=== PATIENT | female | born 1940 | race Caucasian/White ===

== ENCOUNTER 2021-06-28 16:22 | Inpatient (IN) | payer MEDICARE ==
[2021-06-28] MEDS ORDERED: SODIUM CHLORIDE 0.9% 500 ML 500 ML IV STA (17:44)
[2021-06-28 17:57] LABS: Basophils % (A) 0 %; Eosinophils # (A) 0.2 k/uL (0-0.7); Eosinophils % (A) 2 %; HCT 33.8 % (34.0-46.0); Lymphocytes # (A) 0.9 k/uL (1.0-4.8); Lymphocytes % (A) 9 %; MCH 30.6 pg (25.0-35.0); MCHC 32.5 g/dL (31.0-37.0); MCV 93.9 fL (80.0-100.0); Monocytes # (A) 0.6 k/uL (0-1.0); Monocytes % (A) 6 %; Neutrophils % (A) 82 %; Platelet Count 232 k/uL (150-450); RDW 13.7 % (11.5-15.5); WBC 9.8 k/uL (3.8-10.6)
[2021-06-28 18:05] LABS: Albumin 3.7 g/dL (3.5-5.0); Calcium 10.7 mg/dL (8.4-10.2); Potassium 4.3 mmol/L (3.5-5.1); Total Bilirubin 0.7 mg/dL (0.2-1.3)
[2021-06-28 18:10] LABS: INR 1.5 (<1.2); Partial Thromboplastin Time 33.2 sec (22.0-30.0)
[2021-06-28] MEDS ORDERED: NALOXONE 0.4 MG/ML 1 ML VIAL IV PRN (19:28)
[2021-06-28] MEDS ORDERED: CLINDAMYCIN 600 MG in DEXTROSE 5% IN WATER 50 ML IVPB STA ×2 (19:30)
--- NOTE | 2021-06-28 19:34 | ED ---
General Adult HPI - General Chief complaint: Abdominal Pain Stated complaint: back pain & infected wound Time Seen by Provider: 06/28/21 17:28 Source: patient, RN notes reviewed, old records reviewed Mode of arrival: ambulatory Limitations: no limitations - History of Present Illness Initial comments: 81-year-old female presenting for reevaluation of abdominal wall abscess. Patient was seen at outside hospital with infected hematoma. She was told that she may require surgical evaluation of this infected hematoma and abscess. She has been on oral antibiotics. According to her daughter she's been more sleepy than usual. She had a fever of 101. She does report some pain at the site. This was a previous site of heparin injection. Patient denies dysuria. She's had some minor cough as well. She was followed by infectious disease at [facility]. - Related Data Home Medications Medication Instructions Recorded Confirmed Clopidogrel [Plavix] 75 mg PO DAILY 11/09/16 11/27/16 Digoxin [Lanoxin] 125 mcg PO DAILY 11/09/16 11/27/16 Insulin Glargine [Lantus] 40 unit SQ QAM 11/09/16 11/27/16 Losartan Potassium 50 mg PO QAM 11/09/16 11/27/16 metFORMIN HCL [Metformin HCl] 1,000 mg PO BID 11/09/16 11/27/16 clindamycin HCL [Cleocin] 300 mg PO Q8H 11/27/16 11/27/16 Allergies Allergy/AdvReac Type Severity Reaction Status Date / Time aspirin Allergy Anaphylaxis Verified 06/28/21 17:19 Review of Systems ROS Statement: Those systems with pertinent positive or pertinent negative responses have been documented in the HPI. ROS Other: All systems not noted in ROS Statement are negative. Past Medical History Past Medical History: Atrial Fibrillation, Diabetes Mellitus, Hypertension Additional Past Medical History / Comment(s): wound rt foot History of Any Multi-Drug Resistant Organisms: None Reported Past Surgical History: Cholecystectomy Past Anesthesia/Blood Transfusion Reactions: No Reported Reaction Past Psychological History: No Psychological Hx Reported Smoking Status: Never smoker Past Alcohol Use History: None Reported Past Drug Use History: None Reported - Past Family History Sister(s) Family Medical History: Cancer Brother(s) Family Medical History: Cancer General Exam Limitations: no limitations General appearance: alert, in no apparent distress Head exam: Present: atraumatic, normocephalic Eye exam: Present: normal appearance, PERRL ENT exam: Present: normal exam Neck exam: Present: normal inspection. Absent: tenderness, meningismus Respiratory exam: Present: normal lung sounds bilaterally. Absent: respiratory distress, wheezes Cardiovascular Exam: Present: regular rate, irregular rhythm GI/Abdominal exam: Present: soft, other (Freely draining abscess with surrounding cellulitis, right lower quadrant subcutaneous tissue.). Absent: distended Extremities exam: Present: normal inspection, normal capillary refill. Absent: pedal edema Neurological exam: Present: alert, oriented X3, CN II-XII intact. Absent: motor sensory deficit Psychiatric exam: Present: normal affect, normal mood Skin exam: Present: warm, dry Course Vital Signs 06/28/21 06/28/21 16:45 17:52 Temperature 100.9 F H 99.0 F Pulse Rate 63 61 Respiratory 18 14 Rate Blood Pressure 151/68 150/62 O2 Sat by Pulse 99 100 Oximetry EKG Findings - EKG Comments: EKG Findings:: EKG: Atrial fibrillation right bundle, no ST segment elevation rate of 70, QRS duration 135, QTC 437 Medical Decision Making - Medical Decision Making 81-year-old female presents for nonhealing wound to the right lower abdomen, abscess with cellulitis. Fever at home. Patient started on IV antibiotics. She has a normal white blood cell count 9.8, hemoglobin of 11.0. She has some mild worsening of her creatinine at 1.94. She had followed with infectious disease who recommended she should present to the emergency department if this i nfection was to worsen it and she may require surgical evaluation. She will be admitted to hospitalist group, case discussed with Miranda david for [facility]. Both infectious disease and general surgery placed on consult. - Lab Data Result diagrams: 06/28/21 17:46 06/28/21 17:46 Lab Results 06/28/21 06/28/21 06/28/21 Range/Units 17:46 17:46 17:46 WBC 9.8 (3.8-10.6) k/uL RBC 3.60 L (3.80-5.40) m/uL Hgb 11.0 L (11.4-16.0) gm/dL Hct 33.8 L (34.0-46.0) % MCV 93.9 (80.0-100.0) fL MCH 30.6 (25.0-35.0) pg MCHC 32.5 (31.0-37.0) g/dL RDW 13.7 (11.5-15.5) % Plt Count 232 (150-450) k/uL MPV 8.0 Neutrophils % 82 % Lymphocytes % 9 % Monocytes % 6 % Eosinophils % 2 % Basophils % 0 % Neutrophils # 8.0 H (1.3-7.7) k/uL Lymphocytes # 0.9 L (1.0-4.8) k/uL Monocytes # 0.6 (0-1.0) k/uL Eosinophils # 0.2 (0-0.7) k/uL Basophils # 0.0 (0-0.2) k/uL PT 15.0 H (9.0-12.0) sec INR 1.5 H (<1.2) APTT 33.2 H (22.0-30.0) sec Sodium 131 L (137-145) mmol/L Potassium 4.3 (3.5-5.1) mmol/L Chloride 96 L (98-107) mmol/L Carbon Dioxide 25 (22-30) mmol/L Anion Gap 10 mmol/L BUN 33 H (7-17) mg/dL Creatinine 1.94 H (0.52-1.04) mg/dL Est GFR (CKD-EPI)AfAm 28 (>60 ml/min/1.73 sqM) Est GFR (CKD-EPI)NonAf 24 (>60 ml/min/1.73 sqM) Glucose 245 H (74-99) mg/dL Plasma Lactic Acid Nolan (0.7-2.0) mmol/L Calcium 10.7 H (8.4-10.2) mg/dL Total Bilirubin 0.7 (0.2-1.3) mg/dL AST 18 (14-36) U/L ALT 14 (4-34) U/L Alkaline Phosphatase 113 (38-126) U/L Total Protein 8.0 (6.3-8.2) g/dL Albumin 3.7 (3.5-5.0) g/dL Amylase 58 (30-110) U/L Lipase 164 (23-300) U/L 06/28/21 Range/Units 17:46 WBC (3.8-10.6) k/uL RBC (3.80-5.40) m/uL Hgb (11.4-16.0) gm/dL Hct (34.0-46.0) % MCV (80.0-100.0) fL MCH (25.0-35.0) pg MCHC (31.0-37.0) g/dL RDW (11.5-15.5) % Plt Count (150-450) k/uL MPV Neutrophils % % Lymphocytes % % Monocytes % % Eosinophils % % Basophils % % Neutrophils # (1.3-7.7) k/uL Lymphocytes # (1.0-4.8) k/uL Monocytes # (0-1.0) k/uL Eosinophils # (0-0.7) k/uL Basophils # (0-0.2) k/uL PT (9.0-12.0) sec INR (<1.2) APTT (22.0-30.0) sec Sodium (137-145) mmol/L Potassium (3.5-5.1) mmol/L Chloride (98-107) mmol/L Carbon Dioxide (22-30) mmol/L Anion Gap mmol/L BUN (7-17) mg/dL Creatinine (0.52-1.04) mg/dL Est GFR (CKD-EPI)AfAm (>60 ml/min/1.73 sqM) Est GFR (CKD-EPI)NonAf (>60 ml/min/1.73 sqM) Glucose (74-99) mg/dL Plasma Lactic Acid Nolan 1.2 (0.7-2.0) mmol/L Calcium (8.4-10.2) mg/dL Total Bilirubin (0.2-1.3) mg/dL AST (14-36) U/L ALT (4-34) U/L Alkaline Phosphatase (38-126) U/L Total Protein (6.3-8.2) g/dL Albumin (3.5-5.0) g/dL Amylase (30-110) U/L Lipase (23-300) U/L Disposition Clinical Impression: Abdominal wall abscess, Failure of outpatient treatment Disposition: ADMITTED IP TO THIS HOSP Condition: Stable Is patient prescribed a controlled substance at d/c from ED?: No Referrals: Megha Oneal DO [Primary Care Provider] - 1-2 days Decision to Admit Reason: Admit from EC Decision Date: 06/28/21 Decision Time: 19:34
[2021-06-28 20:10] LABS: Glucose,Whole Blood 216 mg/dL (75-99)
[2021-06-28] MEDS: SODIUM CHLORIDE 0.9% 1,000 ML IV SCH (20:11)
[2021-06-29 00:30] LABS: Glucose,Whole Blood 237 mg/dL (75-99)
[2021-06-29] MEDS ORDERED: INSULIN DETEMIR (LEVEMIR) 100 UNIT/ML SYR SQ SCH (01:00)
[2021-06-29] MEDS: hydrALAZINE HCL 25 MG TAB PO SCH ×4 (01:10→20:45)
[2021-06-29] MEDS: INSULIN ASPART (NovoLOG) 100 UNIT/ML VIAL SQ SCH ×5 (01:11→20:45)
[2021-06-29] MEDS ORDERED: lisinopriL 5 MG TAB PO SCH ×2 (01:15→09:00)
[2021-06-29 07:26] LABS: Glucose,Whole Blood 110 mg/dL (75-99)
[2021-06-29] MEDS: SODIUM CHLORIDE 0.9% 1,000 ML IV SCH ×2 (09:20→20:45)
--- NOTE | 2021-06-29 11:32 | P.HPIM ---
History of Present Illness Patient [id number] female came in for infected hematoma. Patient was started on ceftezole and patient denied any history of MRSA in the past patient had fever of 101 without any leukocytosis. Patient does have cellulitis with an open wound with fresh granulation tissue. As per the patient this started after heparin injection followed by hematoma which got infected. Patient also has a wound in the left leg which is scabbed. REVIEW OF SYSTEMS: CONSTITUTIONAL: No fever, no malaise, no fatigue. HEENT: No recent visual problems or hearing problems. Denied any sore throat. CARDIOVASCULAR: No chest pain, orthopnea, PND, no palpitations, no syncope. PULMONARY: No shortness of breath, no cough, no hemoptysis. GASTROINTESTINAL: No diarrhea, no nausea, no vomiting, no abdominal pain. NEUROLOGICAL: No headaches, no weakness, no numbness. HEMATOLOGICAL: Denies any bleeding or petechiae. GENITOURINARY: Denies any burning micturition, frequency, or urgency. MUSCULOSKELETAL/RHEUMATOLOGICAL: Denies any joint pain, swelling, or any muscle pain. ENDOCRINE: Denies any polyuria or polydipsia. The rest of the 14-point review of systems is negative. PHYSICAL EXAMINATION: GENERAL: The patient is alert and oriented x3, not in any acute distress. Well developed, well nourished. HEENT: Pupils are round and equally reacting to light. EOMI. No scleral icterus. No conjunctival pallor. Normocephalic, atraumatic. No pharyngeal erythema. No thyromegaly. CARDIOVASCULAR: S1 and S2 present. No murmurs, rubs, or gallops. PULMONARY: Chest is clear to auscultation, no wheezing or crackles. ABDOMEN: Soft, nontender, nondistended, normoactive bowel sounds. No palpable organomegaly. MUSCULOSKELETAL: No joint swelling or deformity. EXTREMITIES: No cyanosis, clubbing, or pedal edema. NEUROLOGICAL: Gross neurological examination did not reveal any focal deficits. SKIN: Found in the right lower abdominal quadrant this wound is open with surrounding cellulitis redness and localized of temperature. Assessment and plan -Abdominal wall cellulitis with a wound/infected hematoma: The patient was started on ceftezole and, Gen. surgery was consulted for possible debridement or incision and drainage. -Chronic atrial fibrillation patient is presently bradycardic not in any acute control medication patient is also which will be resumed after debridement/I &D. -Acute renal failure on chronic kidney disease stage II acute renal failure appears to be prerenal azotemia from diuretic therapy patient denied any history of congestive heart failure will hold off on diuretic therapy dental hydration -Hypovolemic hyponatremia: IV fluids as mentioned above -Type 2 diabetes mellitus blood sugars are well controlled patient resumed on home regimen along with sliding scale insulin titration depending on sliding scale needs. -Hypertension: Hold off on lisinopril temporarily because of acute renal failure. Patient baseline creatinine is around 1. DVT prophylaxis: Will be resumed on anticoagulation after the debridement Past Medical History Past Medical History: Atrial Fibrillation, Diabetes Mellitus, Hypertension Additional Past Medical History / Comment(s): wound rt foot, wound to left pinkey History of Any Multi-Drug Resistant Organisms: None Reported Past Surgical History: Cholecystectomy Past Anesthesia/Blood Transfusion Reactions: No Reported Reaction Past Psychological History: No Psychological Hx Reported Smoking Status: Never smoker Past Alcohol Use History: None Reported Past Drug Use History: None Reported - Past Family History Sister(s) Family Medical History: Cancer Brother(s) Family Medical History: Cancer Medications and Allergies Home Medications Medication Instructions Recorded Confirmed Type Insulin Glargine [Lantus] 12 unit SQ HS 11/09/16 06/28/21 History Amoxicillin/Potassium Clav 1 tab PO BID 06/28/21 06/28/21 History [Augmentin 875-125 Tablet] Cyanocobalamin [Vitamin B-12] 500 mcg PO DAILY 06/28/21 06/28/21 History Docusate Sodium [Dok] 100 mg PO DAILY 06/28/21 06/28/21 History Furosemide [Lasix] 20 mg PO DAILY 06/28/21 06/28/21 History Insulin Lispro [Insulin Lispro 6 units SQ AC-TID 06/28/21 06/28/21 History Kwikpen U-100] Insulin Lispro [Insulin Lispro See Protocol SQ AC-TID 06/28/21 06/28/21 History Kwikpen U-100] Rivaroxaban [Xarelto] 15 mg PO DAILY 06/28/21 06/28/21 History Simvastatin [Zocor] 20 mg PO DAILY 06/28/21 06/28/21 History hydrALAZINE HCL 25 mg PO TID 06/28/21 06/28/21 History lisinopriL [Zestril] 5 mg PO DAILY 06/28/21 06/28/21 History Allergies Allergy/AdvReac Type Severity Reaction Status Date / Time aspirin Allergy Anaphylaxis Verified 06/28/21 20:52 Physical Exam Vitals: Vital Signs Temp Pulse Pulse Resp BP BP Pulse Ox 06/29/21 09:02 99.4 F 47 L 16 150/67 100 06/29/21 08:00 99.1 F 43 L 16 169/67 100 06/29/21 05:22 98.9 F 52 L 18 160/65 100 06/29/21 00:34 98.9 F 45 L 20 171/54 100 06/28/21 22:30 60 18 143/58 94 L 06/28/21 21:03 62 18 150/67 97 06/28/21 17:52 99.0 F 61 14 150/62 100 06/28/21 16:45 100.9 F H 63 18 151/68 99 Intake and Output 06/28/21 06/29/21 06/29/21 22:59 06:59 14:59 Intake Total 720 Balance 720 Intake: Intake, IV Titration 600 Amount Sodium Chloride 0.9% 1, 600 000 ml @ 75 mls/hr IV . [id number] Rx#:[id number] Oral 120 Other: Voiding Method Toilet Bedside Commode # Voids 3 0 Weight 71.214 kg 71.214 kg Results CBC & Chem 7: 06/28/21 17:46 06/28/21 17:46 Labs: Abnormal Lab Results - Last 24 Hours (Table) 06/28/21 06/28/21 06/28/21 Range/Units 17:46 17:46 17:46 RBC 3.60 L (3.80-5.40) m/uL Hgb 11.0 L (11.4-16.0) gm/dL Hct 33.8 L (34.0-46.0) % Neutrophils # 8.0 H (1.3-7.7) k/uL Lymphocytes # 0.9 L (1.0-4.8) k/uL PT 15.0 H (9.0-12.0) sec INR 1.5 H (<1.2) APTT 33.2 H (22.0-30.0) sec Sodium 131 L (137-145) mmol/L Chloride 96 L (98-107) mmol/L BUN 33 H (7-17) mg/dL Creatinine 1.94 H (0.52-1.04) mg/dL Glucose 245 H (74-99) mg/dL POC Glucose (mg/dL) (75-99) mg/dL Calcium 10.7 H (8.4-10.2) mg/dL 06/28/21 06/29/21 06/29/21 Range/Units 20:08 00:26 07:06 RBC (3.80-5.40) m/uL Hgb (11.4-16.0) gm/dL Hct (34.0-46.0) % Neutrophils # (1.3-7.7) k/uL Lymphocytes # (1.0-4.8) k/uL PT (9.0-12.0) sec INR (<1.2) APTT (22.0-30.0) sec Sodium (137-145) mmol/L Chloride (98-107) mmol/L BUN (7-17) mg/dL Creatinine (0.52-1.04) mg/dL Glucose (74-99) mg/dL POC Glucose (mg/dL) 216 H 237 H 110 H (75-99) mg/dL Calcium (8.4-10.2) mg/dL Thrombosis Risk Factor Assmnt - Choose All That Apply Any of the Below Risk Factors Present?: No Each Risk Factor Represents 3 Points: Age 75 years or older Other congenital or acquired thrombophilia - If yes, enter type in comment: No Thrombosis Risk Factor Assessment Total Risk Factor Score: 3 Thrombosis Risk Factor Assessment Level: Moderate Risk
[2021-06-29 11:57] LABS: Glucose,Whole Blood 194 mg/dL (75-99)
[2021-06-29 14:43] VITALS: BMI 25.3
--- NOTE | 2021-06-29 15:04 | P.GSCN ---
History of Present Illness Consult date: 06/29/21 History of present illness: CHIEF COMPLAINT: Abdominal wall abscess HISTORY OF PRESENT ILLNESS: This is a 81-year-old female who resents the hospital due to abdominal wall abscess. Patient reports that she was hospitalized in November and had been receiving heparin shots. Patient reports she had developed a bump in the area. And in December she started to have drainage from this bump. She has been going to the wound care center at [facility] by ID service. Their concerns about infected hematoma versus abscess. Patient reports having fever at home. She had been on oral antibiotics at home. She has been having pain at the abscess site. Minimal drainage. The wound is open there is presence of granulation tissue. She did have a temp of 100.9 but white count is normal at 9.8 she is on IV antibiotics infectious disease has also been placed on consult. She is on Xarelto for atrial fibrillation. Xarelto currently held. Denies any history of MRSA. Does have history of diabetes. Patient seen and examined with Dr. linares PAST MEDICAL HISTORY: Atrial Fibrillation, Diabetes Mellitus, Hypertension PAST SURGICAL HISTORY: Cholecystectomy MEDICATIONS: See list. ALLERGIES: See list. SOCIAL HISTORY: No illicit drug use. REVIEW OF SYSTEMS: CONSTITUTIONAL: Denies fever or chills. HEENT: Denies blurred vision, vision changes, or eye pain. Denies hemoptysis CARDIOVASCULAR: Denies chest pain or pressure. RESPIRATORY: No shortness of breath. GASTROINTESTINAL: See HPI for pertinent findings HEMATOLOGIC: Denies bleeding disorders. GENITOURINARY: Denies any blood in urine or increased urinary frequency. SKIN: Denies pruitis. Denies rash. PHYSICAL EXAM: VITAL SIGNS: Reviewed GENERAL: Well-developed in no acute distress. HEENT: No sclera icterus. Extraocular movements grossly intact. Moist buccal mucosa. Head is atraumatic, normocephalic. No nasal drainage. ABDOMEN: Soft. Nondistended. Right lower abdomen wound about 5 cm x 3 cm. Area is open with granulation tissue. There is small amount of serosanguineous drainage on dressing. Erythema noted around the edges. Area is tender with palpation. NEUROLOGIC: Alert and oriented. Cranial nerves II through XII grossly intact. LABORATORY DATA: WBC is 9.8 hemoglobin 11.0 platelets 232 INR 1.5 Sodium 131 potassium 4.3 BUN 33 creatinine 1.94 Glucose 194 Lactic 1.2 LFTs and lipase normal COVID-19 not detected IMAGING: ASSESSMENT: 1. Abdominal wall wound secondary to infected hematoma 2. Diabetes mellitus PLAN: -No surgical intervention planned -Continue local wound care -Add Aquacel silver dressing -Continue supportive care -Continue to monitor Thank you for this consultation [employer]ician [employer] note has been reviewed by physician. Signing provider agrees with the documented findings, assessment, and plan of care. Past Medical History Past Medical History: Atrial Fibrillation, Diabetes Mellitus, Hypertension Additional Past Medical History / Comment(s): wound rt foot, wound to left pinkey History of Any Multi-Drug Resistant Organisms: None Reported Past Surgical History: Cholecystectomy Past Anesthesia/Blood Transfusion Reactions: No Reported Reaction Past Psychological History: No Psychological Hx Reported Smoking Status: Never smoker Past Alcohol Use History: None Reported Past Drug Use History: None Reported - Past Family History Sister(s) Family Medical History: Cancer Brother(s) Family Medical History: Cancer Medications and Allergies Home Medications Medication Instructions Recorded Confirmed Type Insulin Glargine [Lantus] 12 unit SQ HS 11/09/16 06/28/21 History Amoxicillin/Potassium Clav 1 tab PO BID 06/28/21 06/28/21 History [Augmentin 875-125 Tablet] Cyanocobalamin [Vitamin B-12] 500 mcg PO DAILY 06/28/21 06/28/21 History Docusate Sodium [Dok] 100 mg PO DAILY 06/28/21 06/28/21 History Furosemide [Lasix] 20 mg PO DAILY 06/28/21 06/28/21 History Insulin Lispro [Insulin Lispro 6 units SQ AC-TID 06/28/21 06/28/21 History Kwikpen U-100] Insulin Lispro [Insulin Lispro See Protocol SQ AC-TID 06/28/21 06/28/21 History Kwikpen U-100] Rivaroxaban [Xarelto] 15 mg PO DAILY 06/28/21 06/28/21 History Simvastatin [Zocor] 20 mg PO DAILY 06/28/21 06/28/21 History hydrALAZINE HCL 25 mg PO TID 06/28/21 06/28/21 History lisinopriL [Zestril] 5 mg PO DAILY 06/28/21 06/28/21 History Allergies Allergy/AdvReac Type Severity Reaction Status Date / Time aspirin Allergy Anaphylaxis Verified 06/28/21 20:52 Surgical - Exam Vital Signs Temp Pulse Resp BP Pulse Ox 100.9 F H 63 18 151/68 99 06/28/21 16:45 06/28/21 16:45 06/28/21 16:45 06/28/21 16:45 06/28/21 16:45 Results - Labs 06/28/21 17:46 06/28/21 17:46 Abnormal Lab Results - Last 24 Hours (Table) 06/28/21 06/28/21 06/28/21 Range/Units 17:46 17:46 17:46 RBC 3.60 L (3.80-5.40) m/uL Hgb 11.0 L (11.4-16.0) gm/dL Hct 33.8 L (34.0-46.0) % Neutrophils # 8.0 H (1.3-7.7) k/uL Lymphocytes # 0.9 L (1.0-4.8) k/uL PT 15.0 H (9.0-12.0) sec INR 1.5 H (<1.2) APTT 33.2 H (22.0-30.0) sec Sodium 131 L (137-145) mmol/L Chloride 96 L (98-107) mmol/L BUN 33 H (7-17) mg/dL Creatinine 1.94 H (0.52-1.04) mg/dL Glucose 245 H (74-99) mg/dL POC Glucose (mg/dL) (75-99) mg/dL Calcium 10.7 H (8.4-10.2) mg/dL 06/28/21 06/29/21 06/29/21 Range/Units 20:08 00:26 07:06 RBC (3.80-5.40) m/uL Hgb (11.4-16.0) gm/dL Hct (34.0-46.0) % Neutrophils # (1.3-7.7) k/uL Lymphocytes # (1.0-4.8) k/uL PT (9.0-12.0) sec INR (<1.2) APTT (22.0-30.0) sec Sodium (137-145) mmol/L Chloride (98-107) mmol/L BUN (7-17) mg/dL Creatinine (0.52-1.04) mg/dL Glucose (74-99) mg/dL POC Glucose (mg/dL) 216 H 237 H 110 H (75-99) mg/dL Calcium (8.4-10.2) mg/dL Diabetes panel 06/28/21 Range/Units 17:46 Sodium 131 L (137-145) mmol/L Potassium 4.3 (3.5-5.1) mmol/L Chloride 96 L (98-107) mmol/L Carbon Dioxide 25 (22-30) mmol/L BUN 33 H (7-17) mg/dL Creatinine 1.94 H (0.52-1.04) mg/dL Glucose 245 H (74-99) mg/dL Calcium 10.7 H (8.4-10.2) mg/dL AST 18 (14-36) U/L ALT 14 (4-34) U/L Alkaline Phosphatase 113 (38-126) U/L Total Protein 8.0 (6.3-8.2) g/dL Albumin 3.7 (3.5-5.0) g/dL Calcium panel 06/28/21 Range/Units 17:46 Calcium 10.7 H (8.4-10.2) mg/dL Albumin 3.7 (3.5-5.0) g/dL Pituitary panel 06/28/21 Range/Units 17:46 Sodium 131 L (137-145) mmol/L Potassium 4.3 (3.5-5.1) mmol/L Chloride 96 L (98-107) mmol/L Carbon Dioxide 25 (22-30) mmol/L BUN 33 H (7-17) mg/dL Creatinine 1.94 H (0.52-1.04) mg/dL Glucose 245 H (74-99) mg/dL Calcium 10.7 H (8.4-10.2) mg/dL Adrenal panel 06/28/21 Range/Units 17:46 Sodium 131 L (137-145) mmol/L Potassium 4.3 (3.5-5.1) mmol/L Chloride 96 L (98-107) mmol/L Carbon Dioxide 25 (22-30) mmol/L BUN 33 H (7-17) mg/dL Creatinine 1.94 H (0.52-1.04) mg/dL Glucose 245 H (74-99) mg/dL Calcium 10.7 H (8.4-10.2) mg/dL Total Bilirubin 0.7 (0.2-1.3) mg/dL AST 18 (14-36) U/L ALT 14 (4-34) U/L Alkaline Phosphatase 113 (38-126) U/L Total Protein 8.0 (6.3-8.2) g/dL Albumin 3.7 (3.5-5.0) g/dL
[2021-06-29] MEDS: ACETAMINOPHEN TAB 325 MG TAB PO PRN (15:37)
[2021-06-29 16:31] LABS: Glucose,Whole Blood 166 mg/dL (75-99)
[2021-06-29 20:29] LABS: Glucose,Whole Blood 186 mg/dL (75-99)
[2021-06-29] MEDS: INSULIN DETEMIR (LEVEMIR) 100 UNIT/ML SYR SQ SCH (20:45)
--- NOTE | 2021-06-30 00:43 | P.CONS ---
History of Present Illness - Reason for Consult Consult date: 06/29/21 abd wall wound infection Requesting physician: Tyler Yepez - Chief Complaint abd wall wound and pain x days - History of Present Illness History of Present Illness : Patient is 81-year-old female with a past medical he significant for diabetes mellitus did have a nonhealing wound to the ankle area for which the patient to follow-up with us at [facility] wound care patient also have a abdominal wall hematoma and apparently noticed to have recent worsening of that area which is open up has become more painful patient is currently being to be more of a sharp pain interlaminal 7-8 out of 10 with no radiation with surrounding swelling and redness and did have some drainage apparently the patient has been on oral antibiotics without any improvement for the patient was sent to the ER on arrival to the ER patient did have fever 100.9 F patient did have normal white count creatinine is 1.94 patient has been started on cefazolin infectious disease was consulted for further management, general surgery has seen the patient recommending no surgic al intervention Review of system: CONSTITUTIONAL: Positive for weakness fever. EYES: No complaint. ENT: No complaint. RESPIRATORY: No complaint. CARDIOVASCULAR: No complaint. GENITOURINARY: No complaint. GASTROINTESTINAL: No complaint. MUSCULOSKELETAL: No complaint. INTEGUMENTARY : As per history of present illness. PSYCHOLOGIC: No complaint. ENDOCRINE: No complaint. NEUROLOGIC: No complaint. Past medical history : Reviewed, documented below Past surgical history : Reviewed, documented below Social history: Reviewed, documented below Medications: Reviewed, as documented below EXAMINATION: Vital sigans= Reviewed and documented below GENERAL DESCRIPTION: Elderly female lying in bed, no distress. No tachypnea or accessory muscle of respiration use. HEENT: Shows Pallor , no scleral icterus. Oral mucous membrane is dry. NECK: Trachea central, no thyromegaly. LUNGS: Unlabored breathing. Clear to auscultation anteriorly. No wheeze or crackle. HEART: S1, S2, regular rate and rhythm. ABDOMEN: Soft, lower abdominal wall area of swelling redness induration with significant amount of slough tissue EXTREMITIES: No edema feet, ankle wound with no swelling redness or drainage SKIN: No rash, no masses palpable. NEUROLOGICAL: The patient is awake, alert, oriented x3, mood and affect normal. LABS AND RADIOLOGY: Reviewed results see below Assessment : Patient admitted to the hospital with right lower abdominal wall infected hematoma have a significant amount of induration and slough tissue patient will benefit from surgical debridement and deep cultures and antibiotic on the basis of those culture Plan: 1-local wound care will be switched over to Santyl followed by moist dressing change daily 2-dry Aquacel dressing to the ankle wound 3-we will switch cefazolin to Unasyn We will follow on clinical condition and cultures to further adjust medication if needed Thank you for this consultation we will follow the patient along with you Past Medical History Past Medical History: Atrial Fibrillation, Diabetes Mellitus, Hypertension Additional Past Medical History / Comment(s): wound rt foot, wound to left pinkey History of Any Multi-Drug Resistant Organisms: None Reported Past Surgical History: Cholecystectomy Past Anesthesia/Blood Transfusion Reactions: No Reported Reaction Past Psychological History: No Psychological Hx Reported Smoking Status: Never smoker Past Alcohol Use History: None Reported Past Drug Use History: None Reported - Past Family History Sister(s) Family Medical History: Cancer Brother(s) Family Medical History: Cancer Medications and Allergies Home Medications Medication Instructions Recorded Confirmed Type Insulin Glargine [Lantus] 12 unit SQ HS 11/09/16 06/28/21 History Amoxicillin/Potassium Clav 1 tab PO BID 06/28/21 06/28/21 History [Augmentin 875-125 Tablet] Cyanocobalamin [Vitamin B-12] 500 mcg PO DAILY 06/28/21 06/28/21 History Docusate Sodium [Dok] 100 mg PO DAILY 06/28/21 06/28/21 History Furosemide [Lasix] 20 mg PO DAILY 06/28/21 06/28/21 History Insulin Lispro [Insulin Lispro 6 units SQ AC-TID 06/28/21 06/28/21 History Kwikpen U-100] Insulin Lispro [Insulin Lispro See Protocol SQ AC-TID 06/28/21 06/28/21 History Kwikpen U-100] Rivaroxaban [Xarelto] 15 mg PO DAILY 06/28/21 06/28/21 History Simvastatin [Zocor] 20 mg PO DAILY 06/28/21 06/28/21 History hydrALAZINE HCL 25 mg PO TID 06/28/21 06/28/21 History lisinopriL [Zestril] 5 mg PO DAILY 06/28/21 06/28/21 History Allergies Allergy/AdvReac Type Severity Reaction Status Date / Time aspirin Allergy Anaphylaxis Verified 06/28/21 20:52 Physical Exam Vitals: Vital Signs Temp Pulse Pulse Resp BP BP Pulse Ox 06/29/21 14:00 97.6 F 55 L 16 177/71 100 06/29/21 09:02 99.4 F 47 L 16 150/67 100 06/29/21 08:00 99.1 F 43 L 16 169/67 100 06/29/21 05:22 98.9 F 52 L 18 160/65 100 06/29/21 00:34 98.9 F 45 L 20 171/54 100 06/28/21 22:30 60 18 143/58 94 L 06/28/21 21:03 62 18 150/67 97 06/28/21 17:52 99.0 F 61 14 150/62 100 06/28/21 16:45 100.9 F H 63 18 151/68 99 Intake and Output 06/28/21 06/29/21 06/29/21 22:59 06:59 14:59 Intake Total 840 Balance 840 Intake: Intake, IV Titration 600 Amount Sodium Chloride 0.9% 1, 600 000 ml @ 75 mls/hr IV . [id number] [facility] Rx#:[id number] Oral 240 Other: Voiding Method Toilet Bedside Commode # Voids 3 0 Weight 71.214 kg 71.214 kg 71.214 kg Results CBC & Chem 7: 06/28/21 17:46 06/28/21 17:46 Labs: Abnormal Lab Results - Last 24 Hours (Table) 06/28/21 06/28/21 06/28/21 Range/Units 17:46 17:46 17:46 RBC 3.60 L (3.80-5.40) m/uL Hgb 11.0 L (11.4-16.0) gm/dL Hct 33.8 L (34.0-46.0) % Neutrophils # 8.0 H (1.3-7.7) k/uL Lymphocytes # 0.9 L (1.0-4.8) k/uL PT 15.0 H (9.0-12.0) sec INR 1.5 H (<1.2) APTT 33.2 H (22.0-30.0) sec Sodium 131 L (137-145) mmol/L Chloride 96 L (98-107) mmol/L BUN 33 H (7-17) mg/dL Creatinine 1.94 H (0.52-1.04) mg/dL Glucose 245 H (74-99) mg/dL POC Glucose (mg/dL) (75-99) mg/dL Calcium 10.7 H (8.4-10.2) mg/dL 06/28/21 06/29/21 06/29/21 Range/Units 20:08 00:26 07:06 RBC (3.80-5.40) m/uL Hgb (11.4-16.0) gm/dL Hct (34.0-46.0) % Neutrophils # (1.3-7.7) k/uL Lymphocytes # (1.0-4.8) k/uL PT (9.0-12.0) sec INR (<1.2) APTT (22.0-30.0) sec Sodium (137-145) mmol/L Chloride (98-107) mmol/L BUN (7-17) mg/dL Creatinine (0.52-1.04) mg/dL Glucose (74-99) mg/dL POC Glucose (mg/dL) 216 H 237 H 110 H (75-99) mg/dL Calcium (8.4-10.2) mg/dL 06/29/21 Range/Units 11:53 RBC (3.80-5.40) m/uL Hgb (11.4-16.0) gm/dL Hct (34.0-46.0) % Neutrophils # (1.3-7.7) k/uL Lymphocytes # (1.0-4.8) k/uL PT (9.0-12.0) sec INR (<1.2) APTT (22.0-30.0) sec Sodium (137-145) mmol/L Chloride (98-107) mmol/L BUN (7-17) mg/dL Creatinine (0.52-1.04) mg/dL Glucose (74-99) mg/dL POC Glucose (mg/dL) 194 H (75-99) mg/dL Calcium (8.4-10.2) mg/dL
[2021-06-30] MEDS: AMPICILLIN-SULBACTAM 3 GM in SODIUM CHLORIDE 0.9% 100 ML IVPB SCH ×3 (01:08→17:43)
[2021-06-30 07:07] LABS: Glucose,Whole Blood 110 mg/dL (75-99)
[2021-06-30] MEDS: INSULIN ASPART (NovoLOG) 100 UNIT/ML VIAL SQ SCH ×4 (07:32→20:33)
[2021-06-30] MEDS: SODIUM CHLORIDE 0.9% 1,000 ML IV SCH (08:26)
[2021-06-30] MEDS: DOCUSATE 100 MG CAP PO SCH (09:04)
[2021-06-30] MEDS: ATORVASTATIN 10 MG TAB PO SCH (09:04)
[2021-06-30] MEDS: hydrALAZINE HCL 25 MG TAB PO SCH ×3 (09:04→20:33)
[2021-06-30 09:32] LABS: HCT 27.5 % (37.2-46.3); HGB 9.1 g/dL (12.0-15.0); MCH 31.3 pg (27.0-32.0); MCHC 33.1 g/dL (32.0-37.0); MCV 94.5 fL (80.0-97.0); Mean Platelet Volume 10.9 fL (9.5-12.2); NRBC Per 100 WBC 0 /100 WBCS (0.0-0.0); Platelet Count 208 X 10*3/uL (140-440); RBC 2.91 X 10*6/uL (4.10-5.20); RDW 13.2 % (11.5-14.5); WBC 7.58 X 10*3/uL (4.50-10.00)
[2021-06-30 09:45] LABS: Anion Gap 12.3 mmol/L (10.00-18.00); BUN/Creat Ratio 15.94 Ratio (12.00-20.00); Blood Urea Nitrogen 22.8 mg/dL (9.0-27.0); Calcium 9.8 mg/dL (8.7-10.3); Carbon Dioxide 20.6 mmol/L (20.0-27.5); Non-African American GFR(CKD) 34.5 (60.0-200.0); Potassium 4.1 mmol/L (3.5-5.5)
[2021-06-30] MEDS: COLLAGENASE 250 UNIT/GM OINTMENT 30 GM TUBE TOPICAL SCH (10:06)
[2021-06-30 11:34] LABS: Glucose,Whole Blood 221 mg/dL (75-99)
--- NOTE | 2021-06-30 13:45 | P.PN ---
Subjective Progress Note Date: 06/30/21 CHIEF COMPLAINT: Abdominal wall wound HISTORY OF PRESENT ILLNESS: Patient reports mild amount of pain at abdominal wound. Patient seen by infectious disease. She is sitting up at bedside chair. Afebrile. WBC 7.58 Hgb 9.1 Patient seen and examined with Dr. linares PHYSICAL EXAM: VITAL SIGNS: Reviewed. GENERAL: Well-developed in no acute distress. HEENT: No sclera icterus. Extraocular movements grossly intact. Moist buccal mucosa. Head is atraumatic, normocephalic. ABDOMEN: Soft. Nondistended. Tenderness with palpation around the abdominal wound located in the right lower abdomen. Patient has minimal erythema around the edge. There is granulation tissue. The dressing has sanguinous output noted NEUROLOGIC: Alert and oriented. Cranial nerves II through XII grossly intact. ASSESSMENT: 1. Abdominal wall wound secondary to infected hematoma 2. Diabetes mellitus PLAN: -Continue local wound care -Continue antibiotics per ID service -Continue to observe. Patient only reporting mild pain at wound site Physician Image Archivist note has been reviewed by physician. Signing provider agrees with the documented findings, assessment, and plan of care. Objective - Vital Signs Vital signs: Vital Signs Temp 98.6 F 06/30/21 07:40 Pulse 62 06/30/21 07:40 Resp 16 06/30/21 07:40 BP 165/66 06/30/21 07:40 Pulse Ox 99 06/30/21 07:40 Intake & Output 06/29/21 06/30/21 06/30/21 18:59 06:59 18:59 Intake Total 960 Balance 960 Weight 71.214 kg Intake: Intake, IV Titration 600 Amount Sodium Chloride 0.9% 1, 600 000 ml @ 75 mls/hr IV . [id number] [facility] Rx#:[id number] Oral 360 Other: Voiding Method Bedside Commode # Voids 0 1 - Labs CBC & Chem 7: 06/30/21 05:12 06/30/21 05:12 Labs: Abnormal Lab Results - Last 24 Hours (Table) 06/29/21 06/29/21 06/29/21 Range/Units 11:53 16:26 20:27 RBC (4.10-5.20) X 10*6/uL Hgb (12.0-15.0) g/dL Hct (37.2-46.3) % Sodium (135-145) mmol/L Est GFR (CKD-EPI)AfAm (60.0-200.0) Est GFR (CKD-EPI)NonAf (60.0-200.0) POC Glucose (mg/dL) 194 H 166 H 186 H (75-99) mg/dL 06/30/21 06/30/21 06/30/21 Range/Units 05:12 05:12 07:05 RBC 2.91 L (4.10-5.20) X 10*6/uL Hgb 9.1 L (12.0-15.0) g/dL Hct 27.5 L (37.2-46.3) % Sodium 133 L (135-145) mmol/L Est GFR (CKD-EPI)AfAm 40.0 L (60.0-200.0) Est GFR (CKD-EPI)NonAf 34.5 L (60.0-200.0) POC Glucose (mg/dL) 110 H (75-99) mg/dL Microbiology - Last 24 Hours (Table) 06/28/21 17:55 Blood Culture - Preliminary Blood No Growth after 24 hours 06/28/21 17:40 Blood Culture - Preliminary Blood No Growth after 24 hours
[2021-06-30 16:30] LABS: Glucose,Whole Blood 190 mg/dL (75-99)
[2021-06-30 20:28] LABS: Glucose,Whole Blood 262 mg/dL (75-99)
[2021-06-30] MEDS: INSULIN DETEMIR (LEVEMIR) 100 UNIT/ML SYR SQ SCH (20:33)
[2021-07-01] MEDS: AMPICILLIN-SULBACTAM 3 GM in SODIUM CHLORIDE 0.9% 100 ML IVPB SCH ×3 (01:32→20:09)
[2021-07-01] MEDS: SODIUM CHLORIDE 0.9% 1,000 ML IV SCH ×2 (01:33→09:20)
--- NOTE | 2021-07-01 02:44 | P.PN ---
Subjective Progress Note Date: 06/30/21 Patient [id number] female came in for infected hematoma. Patient was started on ceftezole and patient denied any history of MRSA in the past patient had fever of 101 without any leukocytosis. Patient does have cellulitis with an open wound with fresh granulation tissue. As per the patient this started after heparin injection followed by hematoma which got infected. Patient also has a wound in the left leg which is scabbed. 06/30/2021 Patient is seen this morning and continues on IV zosyn with ID and general surgery following. Awaiting wound cultures. Discussed was had of possible I&D a [facility] surgery watching and observing for now and will continue with IV antibiotics and local wound care. Cefazolin discontinued. No reported fevers overnight and will continue to monitor closely. WBC is within normal limits. Patient denies any chest pain or shortness of breath. Encouraged oral intake especially protein. Labs: WBC is 7.58, hgb is 9.1, plts are 208, sodium is 133, potassium is 4.1, bun is 22.8 creatinine is 1.4 REVIEW OF SYSTEMS: CONSTITUTIONAL: No fever, no malaise, reports fatigue. CARDIOVASCULAR: No chest pain, orthopnea, PND, no palpitations, no syncope. PULMONARY: No shortness of breath, no cough, no hemoptysis. GASTROINTESTINAL: No diarrhea, no nausea, no vomiting, reports lower right abdominal pain at the infection. NEUROLOGICAL: No headaches, no weakness, no numbness. GENITOURINARY: Denies any burning micturition, frequency, or urgency. MUSCULOSKELETAL/RHEUMATOLOGICAL: Denies any joint pain, swelling, or any muscle pain. Active Medications Acetaminophen (Acetaminophen Tab 325 Mg Tab) 650 mg PO Q6HR PRN PRN Reason: Mild Pain or Fever > 100.5 Last Admin: 06/29/21 15:37 Dose: 650 mg Documented by: Atorvastatin Calcium (Atorvastatin 10 Mg Tab) 10 mg PO DAILY [facility] Last Admin: 06/30/21 09:04 Dose: 10 mg Documented by: Collagenase (Collagenase 250 Unit/Gm Ointment 30 Gm Tube) 1 applic TOPICAL DAILY [facility]; Protocol Last Admin: 06/30/21 10:06 Dose: 1 applic Documented by: Docusate Sodium (Docusate 100 Mg Cap) 100 mg PO DAILY [facility] Last Admin: 06/30/21 09:04 Dose: 100 mg Documented by: Hydralazine HCl (Hydralazine Hcl 25 Mg Tab) 25 mg PO TID [facility] Last Admin: 06/30/21 20:33 Dose: 25 mg Documented by: Sodium Chloride (Saline 0.9%) 1,000 mls @ 75 mls/hr IV .[id number] [facility] Last Admin: 07/01/21 01:33 Dose: 75 mls/hr Documented by: Ampicillin Sodium/Sulbactam (Sodium 3 gm/ Sodium Chloride) 100 mls @ 200 mls/hr IVPB Q8H [facility] Last Admin: 07/01/21 01:32 Dose: 200 mls/hr Documented by: Insulin Aspart (Insulin Aspart (Novolog) 100 Unit/Ml Vial) 0 unit SQ ACHS [facility]; Protocol Last Admin: 06/30/21 20:33 Dose: 4 unit Documented by: Insulin Detemir (Insulin Detemir (Levemir) 100 Unit/Ml Syr) 12 unit SQ HS [facility] Last Admin: 06/30/21 20:33 Dose: 12 unit Documented by: Naloxone HCl (Naloxone 0.4 Mg/Ml 1 Ml Vial) 0.2 mg IV Q2M PRN PRN Reason: Opioid Reversal PHYSICAL EXAMINATION: GENERAL:The patient is alert and oriented x3, not in any acute distress. Well developed, well nourished. HEENT: Pupils are round and equally reacting to light. EOMI. No scleral icterus. No conjunctival pallor. Normocephalic, atraumatic. No pharyngeal erythema. No thyromegaly. CARDIOVASCULAR: S1 and S2 present. No murmurs, rubs, or gallops. PULMONARY: Chest is clear to auscultation, no wheezing or crackles. ABDOMEN: Soft, nontender, nondistended, normoactive bowel sounds. No palpable organomegaly. abd pad noted on the right lower quadrant with drainage noted MUSCULOSKELETAL: No joint swelling or deformity. EXTREMITIES: No cyanosis, clubbing, or pedal edema. NEUROLOGICAL: Gross neurological examination did not reveal any focal deficits. SKIN: right lower abdominal quadrant this wound is open with surrounding cellulitis redness and warm to touch with drainage noted. Assessment and plan: -Abdominal wall cellulitis with a wound/infected hematoma: The patient is continued on Unasyn, Gen. surgery following for possible debridement or incision and drainage although recommending conservative management and IV abx. -Chronic atrial fibrillation patient is presently bradycardic not in any acute control medication -Acute renal failure on chronic kidney disease stage II acute renal failure appears to be prerenal azotemia from diuretic therapy patient denied any history of congestive heart failure will hold off on diuretic therapy and continue gentle hydration and will repeat am labs -Hypovolemic hyponatremia: improving continue IV fluids as mentioned above -Type 2 diabetes mellitus blood sugars are well controlled patient resumed on home regimen along with sliding scale insulin titration depending on sliding scale needs. -Hypertension: Hold off on lisinopril temporarily because of acute renal failure. Patient baseline creatinine is around 1. -DVT prophylaxis: Will be resumed on anticoagulation after discussing with surgery about possible debridement - No code Plan: Recommend to continue with IV antibiotics while awaiting cultures. Possible debridement and will discuss with general surgery about treatment plan. Continue local wound care. Continue gentle IV hydration and will repeat am labs. Encourage oral intake especially protein. Patient needs encouragement with eating. Monitor closely for fevers. Objective - Vital Signs Vital signs: Vital Signs Temp 98.6 F 06/30/21 07:40 Pulse 62 06/30/21 07:40 Resp 16 06/30/21 07:40 BP 165/66 06/30/21 07:40 Pulse Ox 99 06/30/21 07:40 Intake & Output 06/29/21 06/30/21 06/30/21 18:59 06:59 18:59 Intake Total 960 Balance 960 Weight 71.214 kg Intake: Intake, IV Titration 600 Amount Sodium Chloride 0.9% 1, 600 000 ml @ 75 mls/hr IV . [id number] [facility] Rx#:[id number] Oral 360 Other: # Voids 0 1 - Labs CBC & Chem 7: 06/30/21 05:12 06/30/21 05:12 Labs: Abnormal Lab Results - Last 24 Hours (Table) 06/29/21 06/29/21 06/29/21 Range/Units 11:53 16:26 20:27 POC Glucose (mg/dL) 194 H 166 H 186 H (75-99) mg/dL 06/30/21 Range/Units 07:05 POC Glucose (mg/dL) 110 H (75-99) mg/dL Microbiology - Last 24 Hours (Table) 06/28/21 17:55 Blood Culture - Preliminary Blood No Growth after 24 hours 06/28/21 17:40 Blood Culture - Preliminary Blood No Growth after 24 hours
[2021-07-01 06:36] LABS: Basophils % (A) 0 %; Eosinophils # (A) 0.3 k/uL (0-0.7); Eosinophils % (A) 5 %; Lymphocytes # (A) 1.2 k/uL (1.0-4.8); Lymphocytes % (A) 19 %; MCH 31.2 pg (25.0-35.0); MCV 94.4 fL (80.0-100.0); Mean Platelet Volume 8.3; Monocytes # (A) 0.5 k/uL (0-1.0); Monocytes % (A) 8 %; Neutrophils # (A) 4.3 k/uL (1.3-7.7); Neutrophils % (A) 66 %; Platelet Count 171 k/uL (150-450); RBC 2.97 m/uL (3.80-5.40); WBC 6.5 k/uL (3.8-10.6)
[2021-07-01 06:39] LABS: HGB 9.3 gm/dL (11.4-16.0)
[2021-07-01 06:50] LABS: African American GFR (CKD) 36 (>60 ml/min/1.73 sqM); Anion Gap 6 mmol/L; Blood Urea Nitrogen 21 mg/dL (7-17); Calcium 9.6 mg/dL (8.4-10.2); Carbon Dioxide 22 mmol/L (22-30); Chloride 106 mmol/L (98-107); Glucose 93 mg/dL (74-99); Non-African American GFR(CKD) 31 (>60 ml/min/1.73 sqM); Potassium 4.5 mmol/L (3.5-5.1); Sodium 134 mmol/L (137-145)
[2021-07-01 07:25] LABS: Glucose,Whole Blood 87 mg/dL (75-99)
[2021-07-01] MEDS: INSULIN ASPART (NovoLOG) 100 UNIT/ML VIAL SQ SCH ×4 (08:00→20:08)
[2021-07-01] MEDS: COLLAGENASE 250 UNIT/GM OINTMENT 30 GM TUBE TOPICAL SCH (09:21)
[2021-07-01] MEDS: ATORVASTATIN 10 MG TAB PO SCH (09:21)
[2021-07-01] MEDS: DOCUSATE 100 MG CAP PO SCH (09:21)
[2021-07-01] MEDS: hydrALAZINE HCL 25 MG TAB PO SCH ×3 (09:22→20:08)
--- NOTE | 2021-07-01 10:41 | P.PN ---
Subjective Progress Note Date: 07/01/21 CHIEF COMPLAINT: Abdominal wall wound HISTORY OF PRESENT ILLNESS: Patient reports mild amount of pain at abdominal wound. No significant drainage from the wound. Denies any nausea or vomiting. She sitting up at bedside chair. Afebrile. WBC 6.5 hemoglobin 9.3 and 1.58 Patient seen and examined with Dr. linares PHYSICAL EXAM: VITAL SIGNS: Reviewed. GENERAL: Well-developed in no acute distress. HEENT: No sclera icterus. Extraocular movements grossly intact. Moist buccal mucosa. Head is atraumatic, normocephalic. ABDOMEN: Soft. Nondistended. Decrease Tenderness with palpation around the abdominal wound located in the right lower abdomen. Patient has minimal erythema around the edge. There is granulation tissue. The dressing has sanguinous output noted NEUROLOGIC: Alert and oriented. Cranial nerves II through XII grossly intact. ASSESSMENT: 1. Abdominal wall wound secondary to infected hematoma 2. Diabetes mellitus PLAN: -Patient can be discharged from surgical standpoint -Patient is scheduled outpatient on 07/04/2020 for debridement of abdominal wound -Keep Xarelto on hold for surgery on Sunday -Continue local wound care -Continue antibiotics per ID service Physician Chucking And Sawing Machine Operator note has been reviewed by physician. Signing provider agrees with the documented findings, assessment, and plan of care. Objective - Vital Signs Vital signs: Vital Signs Temp 98.4 F 07/01/21 08:00 Pulse 75 07/01/21 08:00 Resp 17 07/01/21 08:00 BP 172/64 07/01/21 08:00 Pulse Ox 94 L 07/01/21 08:00 Intake & Output 06/30/21 07/01/21 07/01/21 18:59 06:59 18:59 Intake Total 900 990 Balance 900 990 Intake: IV 900 750 Sodium Chloride 0.9% 1, 900 750 000 ml @ 75 mls/hr IV . [id number] [facility] Rx#:[id number] Oral 240 Other: Voiding Method Toilet Bedside Commode # Voids 2 1 - Labs CBC & Chem 7: 07/01/21 05:43 07/01/21 05:43 Labs: Abnormal Lab Results - Last 24 Hours (Table) 06/30/21 06/30/21 06/30/21 Range/Units 11:32 16:29 20:26 RBC (3.80-5.40) m/uL Hgb (11.4-16.0) gm/dL Hct (34.0-46.0) % Sodium (137-145) mmol/L BUN (7-17) mg/dL Creatinine (0.52-1.04) mg/dL POC Glucose (mg/dL) 221 H 190 H 262 H (75-99) mg/dL 07/01/21 07/01/21 Range/Units 05:43 05:43 RBC 2.97 L (3.80-5.40) m/uL Hgb 9.3 L D (11.4-16.0) gm/dL Hct 28.0 L (34.0-46.0) % Sodium 134 L (137-145) mmol/L BUN 21 H (7-17) mg/dL Creatinine 1.58 H (0.52-1.04) mg/dL POC Glucose (mg/dL) (75-99) mg/dL Microbiology - Last 24 Hours (Table) 06/30/21 11:02 Gram Stain - Preliminary Abdomen Wound Culture - Preliminary 06/28/21 17:55 Blood Culture - Preliminary Blood No Growth after 48 hours 06/28/21 17:40 Blood Culture - Preliminary Blood No Growth after 48 hours 06/30/21 11:02 Anaerobic Culture - Preliminary Abdomen
[2021-07-01 11:43] LABS: Glucose,Whole Blood 204 mg/dL (75-99)
--- NOTE | 2021-07-01 15:56 | P.PN ---
Subjective Progress Note Date: 06/30/21 Principal diagnosis: Abdominal wall infected hematoma Patient is 81-year-old female with multiple comorbidities including diabetes mellitus admitted to the hospital with right lower abdominal wall infected hematoma. On today's evaluation that is 06/30/2021, the patient denies having any fever or chills patient still complaining of significant pain to the right lower a bdominal wound area, patient denies having any chest pain shortness of breath or cough no nausea no vomiting and no diarrhea Objective - Vital Signs Vital signs: Vital Signs Temp 98.6 F 06/30/21 07:40 Pulse 62 06/30/21 07:40 Resp 16 06/30/21 07:40 BP 165/66 06/30/21 07:40 Pulse Ox 99 06/30/21 07:40 Intake & Output 06/29/21 06/30/21 06/30/21 18:59 06:59 18:59 Intake Total 960 Balance 960 Weight 71.214 kg Intake: Intake, IV Titration 600 Amount Sodium Chloride 0.9% 1, 600 000 ml @ 75 mls/hr IV . [id number] [facility] Rx#:[id number] Oral 360 Other: Voiding Method Bedside Commode # Voids 0 1 - Exam GENERAL DESCRIPTION: An elderly female lying in bed in no distress RESPIRATORY SYSTEM: Unlabored breathing , decreased breath sounds at bases HEART: S1 S2 regular rate and rhythm , ABDOMEN: Soft , right lower abdominal wall wound with significant slough tissue surrounding redness and drainage of the dressing EXTREMITIES: Left ankle wound is currently dressed no drainage of the dressing - Labs CBC & Chem 7: 07/01/21 05:43 07/01/21 05:43 Labs: Abnormal Lab Results - Last 24 Hours (Table) 06/29/21 06/29/21 06/30/21 Range/Units 16:26 20:27 05:12 RBC 2.91 L (4.10-5.20) X 10*6/uL Hgb 9.1 L (12.0-15.0) g/dL Hct 27.5 L (37.2-46.3) % Sodium (135-145) mmol/L Est GFR (CKD-EPI)AfAm (60.0-200.0) Est GFR (CKD-EPI)NonAf (60.0-200.0) POC Glucose (mg/dL) 166 H 186 H (75-99) mg/dL 06/30/21 06/30/21 06/30/21 Range/Units 05:12 07:05 11:32 RBC (4.10-5.20) X 10*6/uL Hgb (12.0-15.0) g/dL Hct (37.2-46.3) % Sodium 133 L (135-145) mmol/L Est GFR (CKD-EPI)AfAm 40.0 L (60.0-200.0) Est GFR (CKD-EPI)NonAf 34.5 L (60.0-200.0) POC Glucose (mg/dL) 110 H 221 H (75-99) mg/dL Microbiology - Last 24 Hours (Table) 06/28/21 17:55 Blood Culture - Preliminary Blood No Growth after 24 hours 06/28/21 17:40 Blood Culture - Preliminary Blood No Growth after 24 hours Assessment and Plan (1) Abdominal wall abscess Current Visit: Yes Status: Acute Code(s): L02.211 - CUTANEOUS ABSCESS OF ABDOMINAL WALL SNOMED Code(s): 49469708 Plan: 1-Patient with abdominal wall infected hematoma/abscess, discussed in detail with the surgical COMPLAINT INSPECTOR, patient did surgical debridement and deep cultures, patient to continue with Unasyn and monitor clinical course closely 2-ankle wound with no cellulitis continue local wound care with the Aquacel silver dressing Time with Patient: Less than 30
--- NOTE | 2021-07-01 15:58 | P.PN ---
Subjective Progress Note Date: 07/01/21 Principal diagnosis: Abdominal wall infected hematoma Patient is 81-year-old female with multiple comorbidities including diabetes mellitus admitted to the hospital with right lower abdominal wall infected hematoma. On today's evaluation that is 07/01/2021, the patient is afebrile patient still complaining of significant pain to the right lower abdominal wound area and wanted her abdominal wound to be cleaned to help ease the pain, patient denies having any chest pain shortness of breath or cough no nausea no vomiting and no diarrhea Objective - Vital Signs Vital signs: Vital Signs Temp 98 F 07/01/21 14:00 Pulse 59 L 07/01/21 14:00 Resp 17 07/01/21 14:00 BP 184/71 07/01/21 14:00 Pulse Ox 98 07/01/21 14:00 Intake & Output 06/30/21 07/01/21 07/01/21 18:59 06:59 18:59 Intake Total 900 990 Balance 900 990 Weight 71.214 kg Intake: IV 900 750 Sodium Chloride 0.9% 1, 900 750 000 ml @ 75 mls/hr IV . [id number] [facility] Rx#:[id number] Oral 240 Other: Voiding Method Toilet Toilet Bedside Commode Bedside Commode # Voids 2 1 - Exam GENERAL DESCRIPTION: An elderly female lying in bed in no distress RESPIRATORY SYSTEM: Unlabored breathing , decreased breath sounds at bases HEART: S1 S2 regular rate and rhythm , ABDOMEN: Soft , right lower abdominal wall wound with significant slough tissue surrounding redness and drainage of the dressing EXTREMITIES: Left ankle wound is currently dressed no drainage of the dressing - Labs CBC & Chem 7: 07/01/21 05:43 07/01/21 05:43 Labs: Abnormal Lab Results - Last 24 Hours (Table) 06/30/21 06/30/21 07/01/21 Range/Units 16:29 20:26 05:43 RBC 2.97 L (3.80-5.40) m/uL Hgb 9.3 L D (11.4-16.0) gm/dL Hct 28.0 L (34.0-46.0) % Sodium (137-145) mmol/L BUN (7-17) mg/dL Creatinine (0.52-1.04) mg/dL POC Glucose (mg/dL) 190 H 262 H (75-99) mg/dL 07/01/21 07/01/21 Range/Units 05:43 11:37 RBC (3.80-5.40) m/uL Hgb (11.4-16.0) gm/dL Hct (34.0-46.0) % Sodium 134 L (137-145) mmol/L BUN 21 H (7-17) mg/dL Creatinine 1.58 H (0.52-1.04) mg/dL POC Glucose (mg/dL) 204 H (75-99) mg/dL Microbiology - Last 24 Hours (Table) 06/30/21 11:02 Gram Stain - Preliminary Abdomen Wound Culture - Preliminary 06/28/21 17:55 Blood Culture - Preliminary Blood No Growth after 48 hours 06/28/21 17:40 Blood Culture - Preliminary Blood No Growth after 48 hours 06/30/21 11:02 Anaerobic Culture - Preliminary Abdomen Assessment and Plan (1) Abdominal wall abscess Current Visit: Yes Status: Acute Code(s): L02.211 - CUTANEOUS ABSCESS OF ABDOMINAL WALL SNOMED Code(s): 10494278 Plan: 1-Patient with abdominal wall infected hematoma/abscess, discussed in detail with the surgical CLAIMS ADJUDICATOR yesterday for surgical debridement and deep cultures, patient is high risk of presenting back to the hospital because of her pain if discharged today without any debridement, hence recommending keeping the patient to hospital debridement is done, patient to continue with Unasyn and monitor clinical course closely 2-ankle wound with no cellulitis continue local wound care with the Aquacel silver dressing Time with Patient: Less than 30
[2021-07-01 16:54] LABS: Glucose,Whole Blood 213 mg/dL (75-99)
[2021-07-01 19:59] LABS: Glucose,Whole Blood 255 mg/dL (75-99)
[2021-07-01] MEDS: INSULIN DETEMIR (LEVEMIR) 100 UNIT/ML SYR SQ SCH (20:09)
--- NOTE | 2021-07-02 01:12 | P.PN ---
Subjective Progress Note Date: 07/01/21 Patient [id number] female came in for infected hematoma. Patient was started on ceftezole and patient denied any history of MRSA in the past patient had fever of 101 without any leukocytosis. Patient does have cellulitis with an open wound with fresh granulation tissue. As per the patient this started after heparin injection followed by hematoma which got infected. Patient also has a wound in the left leg which is scabbed. 06/30/2021 Patient is seen this morning and continues on IV zosyn with ID and general surgery following. Awaiting wound cultures. Discussed was had of possible I&D a [facility] surgery watching and observing for now and will continue with IV antibiotics and local wound care. Cefazolin discontinued. No reported fevers overnight and will continue to monitor closely. WBC is within normal limits. Patient denies any chest pain or shortness of breath. Encouraged oral intake especially protein. 07/01/2021 Patient is seen and evaluated this morning continues with abdominal discomfort on the right lower quadrant and the wound continues to appear reddened with drainage noted. General surgery following and will see the patient in the outpatient setting Sunday for revision and tissue sampling. Infectious disease also following and patient is maintained on IV antibiotics in the form of Unasyn with preliminary cultures thus far showing some gram-negative bacilli and positive bacilli and cultures are pending. Recommending to await culture finalization to determine appropriate discharge antibiotics. Patient is afebrile and WBC is 6.5 today. Patient denies chest pain or shortness of breath. Patient tolerating diet although needs encouragement she does not eat very much. Blood pressure elevated and will increase hydralazine and continue to monitor closely. Creatinine slightly elevated at 1.58 and will continue gentle IV hydration with repeat labs in the morning. Labs: WBC is 6.5, hemoglobin is 9.3, platelets are 171, sodium is 134, potassium is 4.5, BUN is 21, creatinine is 1.58, calcium is 9.6. REVIEW OF SYSTEMS: CONSTITUTIONAL: No fever, no malaise, reports fatigue. CARDIOVASCULAR: No chest pain, orthopnea, PND, no palpitations, no syncope. PULMONARY: No shortness of breath, no cough, no hemoptysis. GASTROINTESTINAL: No diarrhea, no nausea, no vomiting, reports lower right abdominal pain at the infection. NEUROLOGICAL: No headaches, no weakness, no numbness. GENITOURINARY: Denies any burning micturition, frequency, or urgency. Active Medications Acetaminophen (Acetaminophen Tab 325 Mg Tab) 650 mg PO Q6HR PRN PRN Reason: Mild Pain or Fever > 100.5 Last Admin: 06/29/21 15:37 Dose: 650 mg Documented by: Atorvastatin Calcium (Atorvastatin 10 Mg Tab) 10 mg PO DAILY [facility] Last Admin: 07/01/21 09:21 Dose: 10 mg Documented by: Collagenase (Collagenase 250 Unit/Gm Ointment 30 Gm Tube) 1 applic TOPICAL DAILY [facility]; Protocol Last Admin: 07/01/21 09:21 Dose: 1 applic Documented by: Docusate Sodium (Docusate 100 Mg Cap) 100 mg PO DAILY [facility] Last Admin: 07/01/21 09:21 Dose: 100 mg Documented by: Hydralazine HCl (Hydralazine Hcl 25 Mg Tab) 25 mg PO TID [facility] Last Admin: 07/01/21 14:33 Dose: 25 mg Documented by: Sodium Chloride (Saline 0.9%) 1,000 mls @ 75 mls/hr IV .[id number] [facility] Last Admin: 07/01/21 09:20 Dose: 75 mls/hr Documented by: Ampicillin Sodium/Sulbactam (Sodium 3 gm/ Sodium Chloride) 100 mls @ 200 mls/hr IVPB Q12HR [facility] Insulin Aspart (Insulin Aspart (Novolog) 100 Unit/Ml Vial) 0 unit SQ ACHS [facility]; Protocol Last Admin: 07/01/21 12:43 Dose: 2 unit Documented by: Insulin Detemir (Insulin Detemir (Levemir) 100 Unit/Ml Syr) 12 unit SQ HS [facility] Last Admin: 06/30/21 20:33 Dose: 12 unit Documented by: Naloxone HCl (Naloxone 0.4 Mg/Ml 1 Ml Vial) 0.2 mg IV Q2M PRN PRN Reason: Opioid Reversal PHYSICAL EXAMINATION: GENERAL:The patient is alert and oriented x3. Well developed, well nourished. Temp is 98.4F, pulse is 75, respirations are 17, blood pressure is 172/64, oxygen saturation is 94% on room air HEENT: Pupils are round and equally reacting to light. EOMI. No scleral icterus. No conjunctival pallor. Normocephalic, atraumatic. No pharyngeal erythema. No thyromegaly. CARDIOVASCULAR: S1 and S2 muffled PULMONARY:Diminished breath sounds bilaterally with no wheezing or crackles. ABDOMEN: Soft, nontender, nondistended, normoactive bowel sounds. No palpable organomegaly. abd pad noted on the right lower quadrant with drainage noted MUSCULOSKELETAL: No joint swelling or deformity. EXTREMITIES: No cyanosis, clubbing, or pedal edema. NEUROLOGICAL: Gross neurological examination did not reveal any focal deficits. SKIN: right lower abdominal quadrant wound is open with surrounding cellulitis redness and warm to touch with drainage noted. Assessment and plan: -Abdominal wall cellulitis with a wound/infected hematoma -Chronic atrial fibrillation patient is presently bradycardic not on any acute control medication -Acute renal failure on chronic kidney disease stage II acute renal failure appears to be prerenal azotemia -Hypovolemic hyponatremia -Type 2 diabetes mellitus -Hypertension -DVT prophylaxis: Will be resumed on anticoagulation after discussing with surgery about possible debridement -No code Plan: Recommend continue with IV antibiotics in the form of Zosyn with ID following closely and awaiting cultures to finalized. Patient's blood pressure slightly elevated and will increase hydralazine to 50 mg 3 times daily as she was on 25 mg 3 times daily. Recommend continue a gentle IV hydration as kidney functions are slightly elevated and encouraged oral intake especially protein. Encourage increased activity as tolerated. Patient has been afebrile and WBC is within normal limits. General surgery also following and plans for revision with tissue sampling on Sunday and will discuss with surgery about treatment plan moving forward. Due to multiple complex medical issues, prognosis is guarded. Further recommendations to follow. Objective - Vital Signs Vital signs: Vital Signs Temp 98.4 F 07/01/21 08:00 Pulse 75 07/01/21 08:00 Resp 17 07/01/21 08:00 BP 172/64 07/01/21 08:00 Pulse Ox 94 L 07/01/21 08:00 Intake & Output 06/30/21 07/01/21 07/01/21 18:59 06:59 18:59 Intake Total 900 990 Balance 900 990 Intake: IV 900 750 Sodium Chloride 0.9% 1, 900 750 000 ml @ 75 mls/hr IV . [id number] [facility] Rx#:[id number] Oral 240 Other: Voiding Method Toilet Bedside Commode # Voids 2 1 - Labs CBC & Chem 7: 07/01/21 05:43 07/01/21 05:43 Labs: Abnormal Lab Results - Last 24 Hours (Table) 06/30/21 06/30/21 06/30/21 Range/Units 05:12 05:12 11:32 RBC 2.91 L (4.10-5.20) X 10*6/uL Hgb 9.1 L (12.0-15.0) g/dL Hct 27.5 L (37.2-46.3) % Sodium 133 L (135-145) mmol/L BUN (7-17) mg/dL Creatinine (0.52-1.04) mg/dL Est GFR (CKD-EPI)AfAm 40.0 L (60.0-200.0) Est GFR (CKD-EPI)NonAf 34.5 L (60.0-200.0) POC Glucose (mg/dL) 221 H (75-99) mg/dL 06/30/21 06/30/21 07/01/21 Range/Units 16:29 20:26 05:43 RBC 2.97 L (4.10-5.20) X 10*6/uL Hgb 9.3 L D (12.0-15.0) g/dL Hct 28.0 L (37.2-46.3) % Sodium (135-145) mmol/L BUN (7-17) mg/dL Creatinine (0.52-1.04) mg/dL Est GFR (CKD-EPI)AfAm (60.0-200.0) Est GFR (CKD-EPI)NonAf (60.0-200.0) POC Glucose (mg/dL) 190 H 262 H (75-99) mg/dL 07/01/21 Range/Units 05:43 RBC (4.10-5.20) X 10*6/uL Hgb (12.0-15.0) g/dL Hct (37.2-46.3) % Sodium 134 L (135-145) mmol/L BUN 21 H (7-17) mg/dL Creatinine 1.58 H (0.52-1.04) mg/dL Est GFR (CKD-EPI)AfAm (60.0-200.0) Est GFR (CKD-EPI)NonAf (60.0-200.0) POC Glucose (mg/dL) (75-99) mg/dL Microbiology - Last 24 Hours (Table) 06/30/21 11:02 Gram Stain - Preliminary Abdomen Wound Culture - Preliminary 06/28/21 17:55 Blood Culture - Preliminary Blood No Growth after 48 hours 06/28/21 17:40 Blood Culture - Preliminary Blood No Growth after 48 hours 06/30/21 11:02 Anaerobic Culture - Preliminary Abdomen
[2021-07-02] MEDS: SODIUM CHLORIDE 0.9% 1,000 ML IV SCH ×2 (03:24→16:53)
[2021-07-02 05:50] LABS: Basophils % (A) 0 %; Eosinophils # (A) 0.4 k/uL (0-0.7); Eosinophils % (A) 6 %; HCT 28.4 % (34.0-46.0); HGB 9.2 gm/dL (11.4-16.0); Lymphocytes # (A) 1.4 k/uL (1.0-4.8); Lymphocytes % (A) 19 %; MCH 30.6 pg (25.0-35.0); MCHC 32.4 g/dL (31.0-37.0); MCV 94.3 fL (80.0-100.0); Mean Platelet Volume 9.1; Monocytes # (A) 0.5 k/uL (0-1.0); Monocytes % (A) 8 %; Neutrophils # (A) 4.6 k/uL (1.3-7.7); Neutrophils % (A) 64 %; Platelet Count 165 k/uL (150-450); RBC 3.02 m/uL (3.80-5.40); RDW 13.1 % (11.5-15.5); WBC 7.1 k/uL (3.8-10.6)
[2021-07-02 06:00] LABS: African American GFR (CKD) 41 (>60 ml/min/1.73 sqM); Anion Gap 5 mmol/L; Blood Urea Nitrogen 26 mg/dL (7-17); Carbon Dioxide 20 mmol/L (22-30); Chloride 108 mmol/L (98-107); Glucose 78 mg/dL (74-99); Non-African American GFR(CKD) 36 (>60 ml/min/1.73 sqM); Potassium 4.4 mmol/L (3.5-5.1); Sodium 133 mmol/L (137-145)
[2021-07-02 06:47] LABS: Glucose,Whole Blood 84 mg/dL (75-99)
[2021-07-02] MEDS: INSULIN ASPART (NovoLOG) 100 UNIT/ML VIAL SQ SCH ×4 (07:20→21:54)
[2021-07-02] MEDS: ATORVASTATIN 10 MG TAB PO SCH (08:33)
[2021-07-02] MEDS: AMPICILLIN-SULBACTAM 3 GM in SODIUM CHLORIDE 0.9% 100 ML IVPB SCH ×2 (08:33→21:54)
[2021-07-02] MEDS: COLLAGENASE 250 UNIT/GM OINTMENT 30 GM TUBE TOPICAL SCH (08:33)
[2021-07-02] MEDS: DOCUSATE 100 MG CAP PO SCH (08:33)
[2021-07-02] MEDS: hydrALAZINE HCL 50 MG TAB PO SCH ×3 (08:33→21:53)
--- NOTE | 2021-07-02 10:24 | P.PN ---
Progress Note - Text Progress Note Date: 07/02/21 Patient is stable. She denies any significant pain related to her wound. I did question her about her pain. She states she's had no pain over the last 48 hours. This was confirmed with the nursing staff. On exam vital signs appear stable. 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 There is some fat induration. There is no significant infection. Patient scheduled for debridement of this area on Sunday. She is stable for hanna burger from surgical standpoint. She can be brought back as outpatient.
[2021-07-02 11:42] LABS: Glucose,Whole Blood 217 mg/dL (75-99)
[2021-07-02 16:32] LABS: Glucose,Whole Blood 164 mg/dL (75-99)
[2021-07-02] MEDS: FLUCONAZOLE 100 MG TAB PO SCH (18:19)
--- NOTE | 2021-07-02 18:40 | PN ---
PROGRESS NOTE DATE OF SERVICE: 07/02/2021 This 81-year-old woman was admitted with abdominal wall abscess. She has presumptive Staph aureus and Daiana albicans grown from the culture. No chest pain. No palpitations. No fever. PHYSICAL EXAMINATION: Pulse 84, blood pressure 135/70, respiration 18, temperature 97.5. CHEST: Clear to auscultation. No rhonchi. No bronchial breath sounds. CARDIOVASCULAR: S1, S2 muffled. ABDOMEN: Soft. Tenderness in the right lower quadrant and infection and some drainage also present. LABS: WBC 7.2, hemoglobin 9.2, creatinine is 1.40. ASSESSMENT: 1. Abdominal wall cellulitis with wound and infected hematoma. 2. Chronic atrial fibrillation. 3. Acute renal failure. 4. Diabetes mellitus, type 2. 5. Severe pain. RECOMMENDATIONS AND DISCUSSION: I recommend to continue current medications, continue with the monitoring, symptomatic treatment. I would recommend broad-spectrum IV antibiotics. Add antifungals. Closely follow. Further recommendations to follow. MMODL / IJN: [id number] /
[2021-07-02 21:10] LABS: Glucose,Whole Blood 238 mg/dL (75-99)
[2021-07-02] MEDS: INSULIN DETEMIR (LEVEMIR) 100 UNIT/ML SYR SQ SCH (21:54)
[2021-07-03 07:13] LABS: Glucose,Whole Blood 77 mg/dL (75-99)
[2021-07-03] MEDS: INSULIN ASPART (NovoLOG) 100 UNIT/ML VIAL SQ SCH ×4 (07:53→20:41)
[2021-07-03] MEDS: ATORVASTATIN 10 MG TAB PO SCH (08:29)
[2021-07-03] MEDS: AMPICILLIN-SULBACTAM 3 GM in SODIUM CHLORIDE 0.9% 100 ML IVPB SCH ×2 (08:29→20:41)
[2021-07-03] MEDS: FLUCONAZOLE 100 MG TAB PO SCH (08:29)
[2021-07-03] MEDS: hydrALAZINE HCL 50 MG TAB PO SCH ×3 (08:29→20:40)
[2021-07-03] MEDS: DOCUSATE 100 MG CAP PO SCH (08:30)
[2021-07-03] MEDS: SODIUM CHLORIDE 0.9% 1,000 ML IV SCH ×2 (09:14→23:00)
--- NOTE | 2021-07-03 09:28 | P.PN ---
Subjective Progress Note Date: 07/02/21 Principal diagnosis: Abdominal wall infected hematoma Patient is 81-year-old female with multiple comorbidities including diabetes mellitus admitted to the hospital with right lower abdominal wall infected hematoma. On today's evaluation that is 07/02/2021, the patient remains to be, afebrile patient pain to the right lower abdominal wound area has decreased in inten sity, patient denies having any chest pain shortness of breath or cough no nausea no vomiting and no diarrhea Objective - Vital Signs Vital signs: Vital Signs Temp 98.7 F 07/02/21 07:04 Pulse 50 L 07/02/21 07:04 Resp 16 07/02/21 07:04 BP 156/63 07/02/21 07:04 Pulse Ox 100 07/02/21 07:04 Intake & Output 07/01/21 07/02/21 07/02/21 18:59 06:59 18:59 Intake Total 760 Balance 760 Weight 71.214 kg Intake: Oral 760 Other: Voiding Method Toilet Toilet Bedside Commode Bedside Commode # Voids 2 4 2 # Bowel Movements 0 2 - Exam GENERAL DESCRIPTION: An elderly female lying in bed in no distress RESPIRATORY SYSTEM: Unlabored breathing , decreased breath sounds at bases HEART: S1 S2 regular rate and rhythm , ABDOMEN: Soft , right lower abdominal wall wound with significant slough tissue surrounding redness and drainage of the dressing EXTREMITIES: Left ankle wound is currently dressed no drainage of the dressing - Labs CBC & Chem 7: 07/02/21 05:36 07/02/21 05:36 Labs: Abnormal Lab Results - Last 24 Hours (Table) 07/01/21 07/01/21 07/02/21 Range/Units 16:48 19:57 05:36 RBC 3.02 L (3.80-5.40) m/uL Hgb 9.2 L (11.4-16.0) gm/dL Hct 28.4 L (34.0-46.0) % Sodium (137-145) mmol/L Chloride (98-107) mmol/L Carbon Dioxide (22-30) mmol/L BUN (7-17) mg/dL Creatinine (0.52-1.04) mg/dL POC Glucose (mg/dL) 213 H 255 H (75-99) mg/dL 07/02/21 07/02/21 Range/Units 05:36 11:41 RBC (3.80-5.40) m/uL Hgb (11.4-16.0) gm/dL Hct (34.0-46.0) % Sodium 133 L (137-145) mmol/L Chloride 108 H (98-107) mmol/L Carbon Dioxide 20 L (22-30) mmol/L BUN 26 H (7-17) mg/dL Creatinine 1.40 H (0.52-1.04) mg/dL POC Glucose (mg/dL) 217 H (75-99) mg/dL Microbiology - Last 24 Hours (Table) 06/30/21 11:02 Gram Stain - Preliminary Abdomen Wound Culture - Preliminary Presumptive Staph aureus Yeast species 06/28/21 17:55 Blood Culture - Preliminary Blood No Growth after 72 hours 06/28/21 17:40 Blood Culture - Preliminary Blood No Growth after 72 hours Assessment and Plan (1) Abdominal wall abscess Current Visit: Yes Status: Acute Code(s): L02.211 - CUTANEOUS ABSCESS OF AB DOMINAL WALL SNOMED Code(s): 04737542 Plan: 1-Patient with abdominal wall infected hematoma/abscess, cultures are currently pending showing staph aureus possible MSSA patient to continue with the Unasyn and is scheduled for surgical debridement on Sunday as per discussion with surgical team 2-ankle wound with no cellulitis continue local wound care with the Aquacel silver dressing Time with Patient: Less than 30
--- NOTE | 2021-07-03 11:52 | P.PN ---
Progress Note - Text Progress Note Date: 07/03/21 Patient remained stable. She has no abdominal pain. Her chronic wound is not hernia. Patient will be scheduled for excision of abdominal wall wound tomorrow.
[2021-07-03 11:54] LABS: Glucose,Whole Blood 165 mg/dL (75-99)
[2021-07-03 17:05] LABS: Glucose,Whole Blood 197 mg/dL (75-99)
--- NOTE | 2021-07-03 19:13 | PN ---
PROGRESS NOTE DATE OF SERVICE: 07/03/2021 This 81-year-old woman who was admitted with abdominal abscess and infection is being closely monitored. Patient complains of severe pain. The cultures are showing Staph aureus and Daiana albicans. No chest pain. No palpitations. No fever. PHYSICAL EXAMINATION: Alert and oriented x3. Pulse 61, blood pressure 188/87, respirations 16, temperature 97.6, pulse ox 100%. HEENT: Conjunctivae normal. CARDIOVASCULAR: S1, S2 muffled. RESPIRATION: Breath sounds diminished at the bases. ABDOMEN: Soft. Tenderness in the right lower quadrant. NERVOUS SYSTEM: No focal deficit. LABS: Labs at this time show Accu-Cheks 197, sodium 133. Creatinine is 1.4. ASSESSMENT: 1. Abdominal wall cellulitis with wound infection, infected hematoma. 2. Chronic atrial fibrillation. 3. Acute renal failure. 4. Diabetes mellitus, type 2. 5. Severe pain. RECOMMENDATIONS: I recommend to continue current medications, continue with the monitoring, symptomatic treatment. Repeat labs. See orders for further details. Guarded prognosis. Further recommendations to follow. MMODL / IJN: [id number] /
[2021-07-03 20:35] LABS: Glucose,Whole Blood 278 mg/dL (75-99)
[2021-07-03] MEDS: INSULIN DETEMIR (LEVEMIR) 100 UNIT/ML SYR SQ SCH (20:40)
--- NOTE | 2021-07-03 21:03 | P.PN ---
Subjective Progress Note Date: 07/03/21 Principal diagnosis: Abdominal wall infected hematoma Patient is 81-year-old female with multiple comorbidities including diabetes mellitus admitted to the hospital with right lower abdominal wall infected hematoma. On today's evaluation that is 07/03/2021, the patient denies any fever or ages, patient denies pain to the right lower abdominal wound area, patient denies having any chest pain shortness of breath or cough no nausea no vomiting and no diarrhea Objective - Vital Signs Vital signs: Vital Signs Temp 97.6 F 07/03/21 14:00 Pulse 61 07/03/21 14:00 Resp 16 07/03/21 14:00 BP 188/87 07/03/21 14:00 Pulse Ox 100 07/03/21 14:00 Intake & Output 07/02/21 07/03/21 07/03/21 18:59 06:59 18:59 Intake Total 400 Balance 400 Intake: Intake, IV Titration 400 Amount Ampicillin-Sulbactam 3 gm 100 In Sodium Chloride 0.9% 100 ml @ 200 mls/hr IVPB Q12HR [facility] Rx#:[id number] Sodium Chloride 0.9% 1, 300 000 ml @ 75 mls/hr IV . [id number] [facility] Rx#:[id number] Other: Voiding Method Toilet Bedside Commode # Voids 4 5 # Bowel Movements 2 2 - Exam GENERAL DESCRIPTION: An elderly female lying in bed in no distress RESPIRATORY SYSTEM: Unlabored breathing , decreased breath sounds at bases HEART: S1 S2 regular rate and rhythm , ABDOMEN: Soft , right lower abdominal wall wound with significant slough tissue surrounding redness and drainage of the dressing EXTREMITIES: Left ankle wound is currently dressed no drainage of the dressing - Labs CBC & Chem 7: 07/02/21 05:36 07/02/21 05:36 Labs: Abnormal Lab Results - Last 24 Hours (Table) 07/02/21 07/03/21 Range/Units 21:00 11:53 POC Glucose (mg/dL) 238 H 165 H (75-99) mg/dL Microbiology - Last 24 Hours (Table) 06/30/21 11:02 Gram Stain - Final Abdomen Wound Culture - Final Staphylococcus aureus Daiana albicans 06/28/21 17:55 Blood Culture - Preliminary Blood No Growth after 96 hours 06/28/21 17:40 Blood Culture - Preliminary Blood No Growth after 96 hours 06/30/21 11:02 Anaerobic Culture - Preliminary Abdomen Assessment and Plan (1) Abdominal wall abscess Current Visit: Yes Status: Acute Code(s): L02.211 - CUTANEOUS ABSCESS OF ABDOMINAL WALL SNOMED Code(s): 94325465 Plan: 1-Patient with abdominal wall infected hematoma/abscess, culture had been finalized as MSSA, patient to continue with the Unasyn and is scheduled for surgical debridement on Sunday local wound care to continue with the medahoney follow moist dressing 2-ankle wound with no cellulitis continue local wound care with the Aquacel silver dressing Time with Patient: Less than 30
[2021-07-03] MEDS: COLLAGENASE 250 UNIT/GM OINTMENT 30 GM TUBE TOPICAL SCH (23:00)
[2021-07-04 06:17] LABS: Glucose,Whole Blood 72 mg/dL (75-99)
[2021-07-04] MEDS: INSULIN ASPART (NovoLOG) 100 UNIT/ML VIAL SQ SCH ×4 (07:19→21:33)
[2021-07-04] MEDS: DOCUSATE 100 MG CAP PO SCH (07:20)
[2021-07-04] MEDS: ATORVASTATIN 10 MG TAB PO SCH (07:22)
[2021-07-04] MEDS: FLUCONAZOLE 100 MG TAB PO SCH (07:23)
[2021-07-04] MEDS: hydrALAZINE HCL 50 MG TAB PO SCH ×3 (07:26→21:33)
[2021-07-04] MEDS: SODIUM CHLORIDE 0.9% 1,000 ML IV SCH ×3 (07:26→09:22)
[2021-07-04] MEDS ORDERED: BUPIVACAIN-EPI 0.25%-1:200,000 30 ML VIAL SQ ONE ×2 (08:44→09:44)
[2021-07-04 09:06] LABS: Basophils # (A) 0.02 X 10*3/uL (0.00-0.10); Basophils % (A) 0.3 %; Eosinophils # (A) 0.39 X 10*3/uL (0.04-0.35); Eosinophils % (A) 5.1 %; Immature Grans, Automated 0.8 %; Lymphocytes % (A) 16.9 %; MCH 31.6 pg (27.0-32.0); MCHC 33.3 g/dL (32.0-37.0); MCV 94.7 fL (80.0-97.0); Monocytes # (A) 0.83 X 10*3/uL (0.20-1.00); Monocytes % (A) 10.8 %; NRBC Per 100 WBC 0 /100 WBCS (0.0-0.0); Neutrophils # (A) 5.08 X 10*3/uL (1.80-7.70); Neutrophils % (A) 66.1 %; Platelet Count 218 X 10*3/uL (140-440); RBC 2.85 X 10*6/uL (4.10-5.20); RDW 13.2 % (11.5-14.5); WBC 7.68 X 10*3/uL (4.50-10.00)
[2021-07-04 09:16] LABS: ALT 17 U/L (8-44); AST 15 U/L (13-35); African American GFR (CKD) 37.7 (60.0-200.0); Albumin 3.2 g/dL (3.8-4.9); Albumin/Globulin Ratio 0.89 (1.60-3.17); Alkaline Phosphatase 124 U/L (41-126); Blood Urea Nitrogen 24.3 mg/dL (9.0-27.0); Calcium 10.1 mg/dL (8.7-10.3); Carbon Dioxide 20.8 mmol/L (20.0-27.5); Chloride 100 mmol/L (96-109); Globulin 3.6 g/dL (1.6-3.3); Glucose 67 mg/dL (70-110); Non-African American GFR(CKD) 32.6 (60.0-200.0); Potassium 4.6 mmol/L (3.5-5.5); Sodium 132 mmol/L (135-145); Total Bilirubin <0.15 mg/dL (0.30-1.20); Total Protein 6.8 g/dL (6.2-8.2)
[2021-07-04] MEDS ORDERED: SUCCINYLCHOLINE CHLORIDE 100 MG/5 ML SYR IV ONE (09:20)
[2021-07-04] MEDS ORDERED: fentaNYL (PF) 50 MCG/ML 2 ML AMP ONE (09:20)
[2021-07-04] MEDS ORDERED: PROPOFOL 10 MG/ML 20 ML VIAL IV ONE (09:20)
[2021-07-04] MEDS ORDERED: LIDOCAINE 1% INJ 10MG/ML (20 ML MDV) ONE (09:20)
[2021-07-04] MEDS ORDERED: ONDANSETRON 4 MG/2 ML VIAL IVP ONE ×2 (09:21→09:22)
--- NOTE | 2021-07-04 09:49 | P.OP ---
Date of Procedure: 07/04/21 Preoperative Diagnosis: Abdominal wall wound Postoperative Diagnosis: Abdominal wall wound Procedure(s) Performed: Debridement of abdominal wall Anesthesia: MARCEL Surgeon: Mathieu Stock Estimated Blood Loss (ml): 5 Pathology: other (Abdominal wall wound) Condition: stable Disposition: PACU Description of Procedure: The patient's placed the operative table in the supine position. She received general endotracheal tube anesthesia. Her abdomen was prepped and draped in sterile fashion. The patient had a chronic abdominal wall wound related to her previous heparin shot. There was a 4 cm defect where the skin had sloughed. There was indurated fat below this. Using a left cautery on cut mode the skin was incised around the abdominal wall wound. And then using electrocautery the subcutaneous tissues were divided. The Bovie was used for hemostasis. The specimen was sent to pathology. A portion of fat was cut and sent for tissue culture. There was healthy fat seen in the wound. The wound measured approximately 15 x 15 x 4 cm. This was packed with wet-to-dry Kerlix. Patient top procedure well. She was sent to recovery room in stable condition.
[2021-07-04] MEDS: AMPICILLIN-SULBACTAM 3 GM in SODIUM CHLORIDE 0.9% 100 ML IVPB SCH ×2 (09:58→21:32)
[2021-07-04 10:05] LABS: Glucose,Whole Blood 71 mg/dL (75-99)
[2021-07-04 11:35] LABS: Glucose,Whole Blood 83 mg/dL (75-99)
--- NOTE | 2021-07-04 13:33 | P.CONS ---
History of Present Illness - Reason for Consult Consult date: 07/04/21 wound care - History of Present Illness This is an 81-year-old patient being seen on 4 S. for an abdominal ulceration measuring approximately 15 x 15 x 4 cm with fat layer exposure granulation and minimal slough noted to the wound bed. The wound edges are attached to the wound base. The ulceration started as an abscess a surgical debridement was performed by Dr. aguilar. At this time is a wet to dry dressing in place. Patient also has a open ulceration to the right lateral malleolus. With fat layer exposure. The wound edges are attached to the wound base there is no tunneling or undermining measuring approximately 3 x 2 x 0.1 cm with granulation seen throughout. A left fifth digit lateral ulceration is noted with eschar In place. The fifth digit is dusky. Has been utilizing Santyl to the site. Review Of Systems: Constitutional: No fever, no chills, no night sweats. No weight change. No weakness, fatigue or lethargy. No daytime sleepiness. Integumentary:reports wounds, no lesions. No rash or pruritus. No unusual bruising. No change in hair or nails. Physical exam: General Appearance: Alert, cooperative, no distress, appears stated age. Skin: See HPI all other Skin color, texture, tugor normal, no rashes or lesions. Neurologic: Alert oriented x3 Assessment: 1. Abdominal ulceration: Applied negative pressure wound VAC DuoDERM to a wound as needed, 125 mmHg continuous suction. With black foam. Change Sunday. May utilize absorptive silver, saline moistened gauze, dry gauze, ABDs and secured tape when patient is discharged until the negative pressure wound VAC is available. 2. Right lateral malleolus: Apply collagen, saline moistened gauze, dry gauze, rolled gauze and secure with paper tape. Change Sunday 3. Left lateral foot ulceration: Apply Santyl, saline moistened gauze, dry gauze, rolled gauze and secure with paper tape. 4. Wound care appointment 07/11/2021 at 8:00 in the wound care center. Thank you for the consultation any questions please contact the wound care center DNP note has been reviewed and discussed with Dr. Ricks and the impression and plan of care has been directed as dictated. Past Medical History Past Medical History: Atrial Fibrillation, Diabetes Mellitus, Hypertension Additional Past Medical History / Comment(s): wound rt foot, wound to left pinkey History of Any Multi-Drug Resistant Organisms: None Reported Past Surgical History: Cholecystectomy Past Anesthesia/Blood Transfusion Reactions: No Reported Reaction Past Psychological History: No Psychological Hx Reported Smoking Status: Never smoker Past Alcohol Use History: None Reported Past Drug Use History: None Reported - Past Family History Sister(s) Family Medical History: Cancer Brother(s) Family Medical History: Cancer Medications and Allergies Home Medications Medication Instructions Recorded Confirmed Type Insulin Glargine [Lantus] 12 unit SQ HS 11/09/16 06/28/21 History Amoxicillin/Potassium Clav 1 tab PO BID 06/28/21 06/28/21 History [Augmentin 875-125 Tablet] Cyanocobalamin [Vitamin B-12] 500 mcg PO DAILY 06/28/21 06/28/21 History Docusate Sodium [Dok] 100 mg PO DAILY 06/28/21 06/28/21 History Furosemide [Lasix] 20 mg PO DAILY 06/28/21 06/28/21 History Insulin Lispro [Insulin Lispro 6 units SQ AC-TID 06/28/21 06/28/21 History Kwikpen U-100] Insulin Lispro [Insulin Lispro See Protocol SQ AC-TID 06/28/21 06/28/21 History Kwikpen U-100] Rivaroxaban [Xarelto] 15 mg PO DAILY 06/28/21 06/28/21 History Simvastatin [Zocor] 20 mg PO DAILY 06/28/21 06/28/21 History hydrALAZINE HCL 25 mg PO TID 06/28/21 06/28/21 History lisinopriL [Zestril] 5 mg PO DAILY 06/28/21 06/28/21 History Allergies Allergy/AdvReac Type Severity Reaction Status Date / Time aspirin Allergy Anaphylaxis Verified 06/28/21 20:52 Physical Exam Vitals: Vital Signs Temp Pulse Pulse Resp BP BP Pulse Ox 07/04/21 10:39 67 16 153/73 100 07/04/21 10:26 62 16 178/77 100 07/04/21 10:11 62 16 163/72 100 07/04/21 09:56 96.8 F L 57 L 18 166/70 100 07/04/21 09:10 96.5 F L 67 16 170/75 100 07/04/21 05:45 97.8 F 60 16 152/72 98 07/04/21 01:06 98.7 F 77 16 180/65 100 07/03/21 20:06 98.3 F 50 L 15 175/70 100 07/03/21 14:00 97.6 F 61 16 188/87 100 Intake and Output 07/03/21 07/04/21 07/04/21 22:59 06:59 14:59 Intake Total 125 Output Total 10 Balance 115 Intake: IV 125 Output: Estimated Blood Loss 10 Other: Voiding Method Toilet Bedside Commode # Voids 2 Results CBC & Chem 7: 07/04/21 05:39 07/04/21 05:39 Labs: Abnormal Lab Results - Last 24 Hours (Table) 07/03/21 07/03/21 07/04/21 Range/Units 17:04 20:31 05:39 RBC 2.85 L (4.10-5.20) X 10*6/uL Hgb 9.0 L (12.0-15.0) g/dL Hct 27.0 L (37.2-46.3) % Immature Gran # 0.06 H (0.00-0.04) X 10*3/uL Eosinophils # 0.39 H (0.04-0.35) X 10*3/uL Sodium (135-145) mmol/L Est GFR (CKD-EPI)AfAm (60.0-200.0) Est GFR (CKD-EPI)NonAf (60.0-200.0) Glucose (70-110) mg/dL POC Glucose (mg/dL) 197 H 278 H (75-99) mg/dL Total Bilirubin (0.30-1.20) mg/dL Albumin (3.8-4.9) g/dL Globulin (1.6-3.3) g/dL Albumin/Globulin Ratio (1.60-3.17) g/dL 07/04/21 07/04/21 07/04/21 Range/Units 05:39 06:12 10:04 RBC (4.10-5.20) X 10*6/uL Hgb (12.0-15.0) g/dL Hct (37.2-46.3) % Immature Gran # (0.00-0.04) X 10*3/uL Eosinophils # (0.04-0.35) X 10*3/uL Sodium 132 L (135-145) mmol/L Est GFR (CKD-EPI)AfAm 37.7 L (60.0-200.0) Est GFR (CKD-EPI)NonAf 32.6 L (60.0-200.0) Glucose 67 L (70-110) mg/dL POC Glucose (mg/dL) 72 L 71 L (75-99) mg/dL Total Bilirubin <0.15 L (0.30-1.20) mg/dL Albumin 3.2 L (3.8-4.9) g/dL Globulin 3.6 H (1.6-3.3) g/dL Albumin/Globulin Ratio 0.89 L (1.60-3.17) g/dL Microbiology - Last 24 Hours (Table) 06/30/21 11:02 Anaerobic Culture - Final Abdomen 06/28/21 17:55 Blood Culture - Preliminary Blood No Growth after 120 hours 06/28/21 17:40 Blood Culture - Preliminary Blood No Growth after 120 hours 06/30/21 11:02 Gram Stain - Final Abdomen Wound Culture - Final Staphylococcus aureus Daiana albicans Assessment and Plan (1) Non-pressure chronic ulcer of skin of other sites with muscle involvement without evidence of necrosis Current Visit: Yes Status: Acute Code(s): L98.495 - NON-PRS CHR ULC SKIN/ OTH SITE WITH MSL INVL W/O EVD OF NECR SNOMED Code(s): 63529303 (2) Pressure ulcer of right ankle, stage 2 Current Visit: Yes Status: Acute Code(s): L89.512 - PRESSURE ULCER OF RIGHT ANKLE, STAGE 2 SNOMED Code(s): 215081356 (3) Non-pressure chronic ulcer of other part of left foot with necrosis of muscle Current Visit: Yes Status: Acute Code(s): L97.523 - NON-PRS CHRONIC ULCER OTH PRT LEFT FOOT W NECROSIS OF MUSCLE SNOMED Code(s): 031140064 (4) Abdominal wall abscess Current Visit: Yes Status: Acute Code(s): L02.211 - CUTANEOUS ABSCESS OF ABDOMINAL WALL SNOMED Code(s): 67977218
--- NOTE | 2021-07-04 14:40 | CDI ---
Documentation Clarification Form Date: 07/04/2021 02:30:40 PM From: Elzbieta Carolina CCS, CCDS Admit Date: 06/30/2021 09:05:00 AM Patient Name: Marylu Chavez Visit Number: [id number] Discharge Date: ATTENTION: The Clinical Documentation Specialists (CDI) and [facility] Coding Staff appreciate your assistance in clarifying documentation. Please respond to the clarification below the line at the bottom and electronically sign. The CDI & [facility] Coding staff will review the response and follow-up if needed. Please note: Queries are made part of the Legal Health Record. If you have any questions, please contact the author of this message via ITS. Dr. Mathieu Stock: A debridement is documented on 07/04 in the Procedure Note. Additional clarification regarding the procedure is requested. History/Risk Factors per the 06/29 H/P: Chronic Atrial Fibrillation, CKD II, IDDM II, Hypertension. Clinical Indicators: Presented to the ED on 06/28 with an infected abdominal wound & abdominal pain, seen at another hospital for an infected hematoma from a previous Heparin injection. Fever 101. Admit with Abdominal wall abscess, Failed outpatient treatment. 06/28 VS: T 100.9, P 63, R 18, BP 151/68, PO 99 RA, BMI: 25.3 06/28 LAB: Hgb 11.0, Hct 33.9, Neut 8.0, Lymph 0.9; PT 15.0, INR 1.5, APTT 33.2; Na 131, BUN 33, Cr 1.94, Glucose 245 No imaging. 07/04 Procedure Diagnosis: Abdominal wall wound 07/04 Procedure: Debridement of abdominal wall Treatment 07/04: Procedure as above. IV Zofran 4 mg x2 Please clarify the type of procedure performed: [ x ] Excisional debridement [ ] Non-excisional debridement [ ] Other; please specify [ ] Unable to determine (Template Last Revised: July 2020) MTDD
[2021-07-04] MEDS: COLLAGENASE 250 UNIT/GM OINTMENT 30 GM TUBE TOPICAL SCH (16:10)
[2021-07-04 16:32] LABS: Glucose,Whole Blood 146 mg/dL (75-99)
[2021-07-04 20:48] LABS: Glucose,Whole Blood 430 mg/dL (75-99)
[2021-07-04] MEDS: INSULIN DETEMIR (LEVEMIR) 100 UNIT/ML SYR SQ SCH (21:33)
--- NOTE | 2021-07-04 22:51 | P.PN ---
Subjective Progress Note Date: 07/04/21 Principal diagnosis: Abdominal wall infected hematoma Patient is 81-year-old female with multiple comorbidities including diabetes mellitus admitted to the hospital with right lower abdominal wall infected hematoma. The patient is status post surgical debridement of the wound completely this morning on 07/04/2021 On today's evaluation that is 07/04/2021, the patient remains to be afebrile, patient denies pain to the right lower abdominal wound area, patient denies having any chest pain shortness of breath or cough no nausea no vomiting and no diarrhea Objective - Vital Signs Vital signs: Vital Signs Temp 96.8 F L 07/04/21 09:56 Pulse 67 07/04/21 10:39 Resp 16 07/04/21 10:39 BP 153/73 07/04/21 10:39 Pulse Ox 100 07/04/21 10:39 Intake & Output 07/03/21 07/04/21 07/04/21 18:59 06:59 18:59 Intake Total 125 Output Total 10 Balance 115 Intake: IV 125 Output: Estimated Blood Loss 10 Other: Voiding Method Toilet Bedside Commode # Voids 2 - Exam GENERAL DESCRIPTION: An elderly female lying in bed in no distress RESPIRATORY SYSTEM: Unlabored breathing , decreased breath sounds at bases HEART: S1 S2 regular rate and rhythm , ABDOMEN: Soft , right lower abdominal wall wound is currently packed with the OR dressing EXTREMITIES: Left ankle wound is currently dressed no drainage of the dressing - Labs CBC & Chem 7: 07/04/21 05:39 07/04/21 05:39 Labs: Abnormal Lab Results - Last 24 Hours (Table) 07/03/21 07/03/21 07/04/21 Range/Units 17:04 20:31 05:39 RBC 2.85 L (4.10-5.20) X 10*6/uL Hgb 9.0 L (12.0-15.0) g/dL Hct 27.0 L (37.2-46.3) % Immature Gran # 0.06 H (0.00-0.04) X 10*3/uL Eosinophils # 0.39 H (0.04-0.35) X 10*3/uL Sodium (135-145) mmol/L Est GFR (CKD-EPI)AfAm (60.0-200.0) Est GFR (CKD-EPI)NonAf (60.0-200.0) Glucose (70-110) mg/dL POC Glucose (mg/dL) 197 H 278 H (75-99) mg/dL Total Bilirubin (0.30-1.20) mg/dL Albumin (3.8-4.9) g/dL Globulin (1.6-3.3) g/dL Albumin/Globulin Ratio (1.60-3.17) g/dL 07/04/21 07/04/21 07/04/21 Range/Units 05:39 06:12 10:04 RBC (4.10-5.20) X 10*6/uL Hgb (12.0-15.0) g/dL Hct (37.2-46.3) % Immature Gran # (0.00-0.04) X 10*3/uL Eosinophils # (0.04-0.35) X 10*3/uL Sodium 132 L (135-145) mmol/L Est GFR (CKD-EPI)AfAm 37.7 L (60.0-200.0) Est GFR (CKD-EPI)NonAf 32.6 L (60.0-200.0) Glucose 67 L (70-110) mg/dL POC Glucose (mg/dL) 72 L 71 L (75-99) mg/dL Total Bilirubin <0.15 L (0.30-1.20) mg/dL Albumin 3.2 L (3.8-4.9) g/dL Globulin 3.6 H (1.6-3.3) g/dL Albumin/Globulin Ratio 0.89 L (1.60-3.17) g/dL Microbiology - Last 24 Hours (Table) 06/30/21 11:02 Anaerobic Culture - Final Abdomen 06/28/21 17:55 Blood Culture - Preliminary Blood No Growth after 120 hours 06/28/21 17:40 Blood Culture - Preliminary Blood No Growth after 120 hours 06/30/21 11:02 Gram Stain - Final Abdomen Wound Culture - Final Staphylococcus aureus Daiana albicans Assessment and Plan (1) Abdominal wall abscess Current Visit: Yes Status: Acute Code(s): L02.211 - CUTANEOUS ABSCESS OF ABDOMINAL WALL SNOMED Code(s): 87242190 Plan: 1-Patient with abdominal wall infected hematoma/abscess, culture had been finalized as MSSA, patient to continue with the Unasyn patient is status post surgical debridement will possibly need wound VAC on discharge and hopefully oral antibiotic, daughter at the bedside questions were answered 2-ankle wound with no cellulitis continue local wound care with the Aquacel silver dressing Time with Patient: Less than 30
--- NOTE | 2021-07-05 01:09 | P.PN ---
Subjective Progress Note Date: 07/04/21 Patient [id number] female came in for infected hematoma. Patient was started on ceftezole and patient denied any history of MRSA in the past patient had fever of 101 without any leukocytosis. Patient does have cellulitis with an open wound with fresh granulation tissue. As per the patient this started after heparin injection followed by hematoma which got infected. Patient also has a wound in the left leg which is scabbed. 06/30/2021 Patient is seen this morning and continues on IV zosyn with ID and general surgery following. Awaiting wound cultures. Discussed was had of possible I&D a [facility] surgery watching and observing for now and will continue with IV antibiotics and local wound care. Cefazolin discontinued. No reported fevers overnight and will continue to monitor closely. WBC is within normal limits. Patient denies any chest pain or shortness of breath. Encouraged oral intake especially protein. 07/01/2021 Patient is seen and evaluated this morning continues with abdominal discomfort on the right lower quadrant and the wound continues to appear reddened with drainage noted. General surgery following and will see the patient in the outpatient setting Sunday for revision and tissue sampling. Infectious disease also following and patient is maintained on IV antibiotics in the form of Unasyn with preliminary cultures thus far showing some gram-negative bacilli and positive bacilli and cultures are pending. Recommending to await culture finalization to determine appropriate discharge antibiotics. Patient is afebrile and WBC is 6.5 today. Patient denies chest pain or shortness of breath. Patient tolerating diet although needs encouragement she does not eat very much. Blood pressure elevated and will increase hydralazine and continue to monitor closely. Creatinine slightly elevated at 1.58 and will continue gentle IV hydration with repeat labs in the morning. 07/04/2021 Patient is seen this morning with daughter at the bedside and patient is status post surgical debridement with tissue sampling and deep wound cultures. Patient continues on IV Unasyn with MSSA and will hopefully transition to oral antibiotics. Will discuss with ID about discharge planning. Dr. Stock following as well and will discuss about resuming xarelto. Patient is afebrile. Wound care consulted for wound vac. REVIEW OF SYSTEMS: CONSTITUTIONAL: No fever, no malaise, reports fatigue. CARDIOVASCULAR: No chest pain, orthopnea, PND, no palpitations, no syncope. PULMONARY: No shortness of breath, no cough, no hemoptysis. GASTROINTESTINAL: No diarrhea, no nausea, no vomiting, reports lower right abdominal pain tenderness with surgical dressing currently dry and intact. NEUROLOGICAL: No headaches, no weakness, no numbness. GENITOURINARY: Denies any burning micturition, frequency, or urgency. Active Medications Acetaminophen (Acetaminophen Tab 325 Mg Tab) 650 mg PO Q6HR PRN PRN Reason: Mild Pain or Fever > 100.5 Last Admin: 06/29/21 15:37 Dose: 650 mg Documented by: Atorvastatin Calcium (Atorvastatin 10 Mg Tab) 10 mg PO DAILY [facility] Last Admin: 07/04/21 07:22 Dose: Not Given Documented by: Collagenase (Collagenase 250 Unit/Gm Ointment 30 Gm Tube) 1 applic TOPICAL DAILY [facility]; Protocol Last Admin: 07/04/21 16:10 Dose: 1 applic Documented by: Docusate Sodium (Docusate 100 Mg Cap) 100 mg PO DAILY [facility] Last Admin: 07/04/21 07:20 Dose: Not Given Documented by: Fluconazole (Fluconazole 100 Mg Tab) 100 mg PO DAILY [facility] Last Admin: 07/04/21 07:23 Dose: Not Given Documented by: Hydralazine HCl (Hydralazine Hcl 50 Mg Tab) 50 mg PO TID [facility] Last Admin: 07/04/21 21:33 Dose: 50 mg Documented by: Sodium Chloride (Saline 0.9%) 1,000 mls @ 75 mls/hr IV .[id number] [facility] Last Admin: 07/04/21 09:22 Dose: 125 mls Documented by: Ampicillin Sodium/Sulbactam (Sodium 3 gm/ Sodium Chloride) 100 mls @ 200 mls/hr IVPB Q12HR [facility] Last Admin: 07/04/21 21:32 Dose: 200 mls/hr Documented by: Insulin Aspart (Insulin Aspart (Novolog) 100 Unit/Ml Vial) 0 unit SQ ACHS [facility]; Protocol Last Admin: 07/04/21 21:33 Dose: 9 unit Documented by: Insulin Detemir (Insulin Detemir (Levemir) 100 Unit/Ml Syr) 12 unit SQ HS [facility] Last Admin: 07/04/21 21:33 Dose: 12 unit Documented by: Naloxone HCl (Naloxone 0.4 Mg/Ml 1 Ml Vial) 0.2 mg IV Q2M PRN PRN Reason: Opioid Reversal PHYSICAL EXAMINATION: GENERAL:The patient is alert and oriented x3. Well developed, well nourished. HEENT: Pupils are round and equally reacting to light. EOMI. No scleral icterus. No conjunctival pallor. Normocephalic, atraumatic. No pharyngeal erythema. No thyromegaly. CARDIOVASCULAR: S1 and S2 muffled PULMONARY:Diminished breath sounds bilaterally with no wheezing or crackles. ABDOMEN: Soft, nontender, nondistended, normoactive bowel sounds. No palpable organomegaly. surgical dressing noted on the right lower quadrant MUSCULOSKELETAL: No joint swelling or deformity. EXTREMITIES: No cyanosis, clubbing, or pedal edema. NEUROLOGICAL: Gross neurological examination did not reveal any focal deficits. SKIN: right lower abdominal quadrant wound currently dressed with surgical dressing Assessment and plan: -Abdominal wall cellulitis with a wound/infected hematoma -status post surgical debridement of right lower abdominal wound -Chronic atrial fibrillation patient is presently bradycardic not on any acute control medication -Acute renal failure on chronic kidney disease stage II acute renal failure appears to be prerenal azotemia -Hypovolemic hyponatremia -Type 2 diabetes mellitus -Hypertension -DVT prophylaxis: Will be resumed on anticoagulation after discussing with surgery about resuming xarelto -No code Plan: Recommend continue with IV antibiotics in the form of Zosyn with ID following closely and awaiting deep tissue cultures to finalize. Patient is status post debridement and tissue sampling with DR. Stock surgery today. Wound care consulted and awaiting wound vac placement. Daughter at the bedside and disharge planning discussed and patient will be going home and family to care for her. Cultures with MSSA and will discuss with ID about discharge antibiotics. Encourage increased activity as tolerated. Patient has been afebrile and WBC is within normal limits. Due to multiple complex medical issues, prognosis is guarded. Possible discharge in 24-48 hours. Objective - Vital Signs Vital signs: Vital Signs Temp 96.5 F L 07/04/21 09:10 Pulse 67 07/04/21 09:10 Resp 16 07/04/21 09:10 BP 170/75 07/04/21 09:10 Pulse Ox 100 07/04/21 09:10 Intake & Output 07/03/21 07/04/21 07/04/21 18:59 06:59 18:59 Intake Total 0 Balance 0 Intake: IV 0 Other: Voiding Method Toilet Bedside Commode # Voids 2 - Labs CBC & Chem 7: 07/04/21 05:39 07/04/21 05:39 Labs: Abnormal Lab Results - Last 24 Hours (Table) 07/03/21 07/03/21 07/03/21 Range/Units 11:53 17:04 20:31 RBC (4.10-5.20) X 10*6/uL Hgb (12.0-15.0) g/dL Hct (37.2-46.3) % Immature Gran # (0.00-0.04) X 10*3/uL Eosinophils # (0.04-0.35) X 10*3/uL Sodium (135-145) mmol/L Est GFR (CKD-EPI)AfAm (60.0-200.0) Est GFR (CKD-EPI)NonAf (60.0-200.0) Glucose (70-110) mg/dL POC Glucose (mg/dL) 165 H 197 H 278 H (75-99) mg/dL Total Bilirubin (0.30-1.20) mg/dL Albumin (3.8-4.9) g/dL Globulin (1.6-3.3) g/dL Albumin/Globulin Ratio (1.60-3.17) g/dL 07/04/21 07/04/21 07/04/21 Range/Units 05:39 05:39 06:12 RBC 2.85 L (4.10-5.20) X 10*6/uL Hgb 9.0 L (12.0-15.0) g/dL Hct 27.0 L (37.2-46.3) % Immature Gran # 0.06 H (0.00-0.04) X 10*3/uL Eosinophils # 0.39 H (0.04-0.35) X 10*3/uL Sodium 132 L (135-145) mmol/L Est GFR (CKD-EPI)AfAm 37.7 L (60.0-200.0) Est GFR (CKD-EPI)NonAf 32.6 L (60.0-200.0) Glucose 67 L (70-110) mg/dL POC Glucose (mg/dL) 72 L (75-99) mg/dL Total Bilirubin <0.15 L (0.30-1.20) mg/dL Albumin 3.2 L (3.8-4.9) g/dL Globulin 3.6 H (1.6-3.3) g/dL Albumin/Globulin Ratio 0.89 L (1.60-3.17) g/dL Microbiology - Last 24 Hours (Table) 06/28/21 17:55 Blood Culture - Preliminary Blood No Growth after 120 hours 06/28/21 17:40 Blood Culture - Preliminary Blood No Growth after 120 hours 06/30/21 11:02 Gram Stain - Final Abdomen Wound Culture - Final Staphylococcus aureus Daiana albicans
[2021-07-05 06:53] LABS: Glucose,Whole Blood 203 mg/dL (75-99)
[2021-07-05] MEDS: INSULIN ASPART (NovoLOG) 100 UNIT/ML VIAL SQ SCH ×4 (07:59→21:01)
[2021-07-05] MEDS: DOCUSATE 100 MG CAP PO SCH (09:39)
[2021-07-05] MEDS: FLUCONAZOLE 100 MG TAB PO SCH (09:40)
[2021-07-05] MEDS: ATORVASTATIN 10 MG TAB PO SCH (09:41)
[2021-07-05] MEDS: AMPICILLIN-SULBACTAM 3 GM in SODIUM CHLORIDE 0.9% 100 ML IVPB SCH ×2 (09:42→21:01)
[2021-07-05] MEDS: hydrALAZINE HCL 50 MG TAB PO SCH ×3 (09:50→19:41)
[2021-07-05] MEDS: COLLAGENASE 250 UNIT/GM OINTMENT 30 GM TUBE TOPICAL SCH (09:53)
[2021-07-05] MEDS: ACETAMINOPHEN TAB 325 MG TAB PO PRN ×2 (10:13→18:51)
[2021-07-05 11:05] LABS: Glucose,Whole Blood 173 mg/dL (75-99)
[2021-07-05] MEDS: SODIUM CHLORIDE 0.9% 1,000 ML IV SCH ×2 (12:00→21:02)
--- NOTE | 2021-07-05 14:24 | P.PN ---
Subjective Progress Note Date: 07/05/21 CHIEF COMPLAINT: Abdominal wall wound HISTORY OF PRESENT ILLNESS: Patient is status post debridement of abdominal wound. She has wound VAC in place. She has minimal pain at the bottom of the wound. Tolerating regular diet. WBC 7.6. Afebrile. Patient seen and examined with Dr. linares PHYSICAL EXAM: VITAL SIGNS: Reviewed. GENERAL: Well-developed in no acute distress. HEENT: No sclera icterus. Extraocular movements grossly intact. Moist buccal mucosa. Head is atraumatic, normocephalic. ABDOMEN: Soft. Nondistended. Wound VAC in place NEUROLOGIC: Alert and oriented. Cranial nerves II through XII grossly intact. ASSESSMENT: 1. Abdominal wall wound status post debridement 2. Diabetes mellitus PLAN: -Patient can be discharged from surgical standpoint -Continue wound VAC -Continue antibiotics per ID service Physician Tool Grinder Operator Surface note has been reviewed by physician. Signing provider agrees with the documented findings, assessment, and plan of care. Objective - Vital Signs Vital signs: Vital Signs Temp 98.4 F 07/05/21 07:07 Pulse 59 L 07/05/21 07:07 Resp 18 07/05/21 07:07 BP 155/62 07/05/21 07:07 Pulse Ox 99 07/05/21 07:07 Intake & Output 07/04/21 07/05/21 07/05/21 18:59 06:59 18:59 Intake Total 605 200 Output Total 10 Balance 595 200 Intake: IV 125 Oral 480 200 Output: Estimated Blood Loss 10 Other: Voiding Method Toilet Bedside Commode # Voids 2 2 - Labs CBC & Chem 7: 07/04/21 05:39 07/04/21 05:39 Labs: Abnormal Lab Results - Last 24 Hours (Table) 07/04/21 07/04/21 07/05/21 Range/Units 16:31 20:47 06:49 POC Glucose (mg/dL) 146 H 430 H 203 H (75-99) mg/dL 07/05/21 Range/Units 11:03 POC Glucose (mg/dL) 173 H (75-99) mg/dL Microbiology - Last 24 Hours (Table) 07/04/21 11:45 Gram Stain - Preliminary Abdomen Tissue Culture - Preliminary 07/04/21 11:45 Anaerobic Culture - Preliminary Abdomen 06/28/21 17:55 Blood Culture - Final Blood No Growth after 144 hours 06/28/21 17:40 Blood Culture - Final Blood No Growth after 144 hours 06/30/21 11:02 Anaerobic Culture - Final Abdomen
[2021-07-05 16:21] LABS: Glucose,Whole Blood 213 mg/dL (75-99)
[2021-07-05 20:43] LABS: Glucose,Whole Blood 226 mg/dL (75-99)
[2021-07-05] MEDS: INSULIN DETEMIR (LEVEMIR) 100 UNIT/ML SYR SQ SCH (21:01)
[2021-07-06 07:01] LABS: Glucose,Whole Blood 84 mg/dL (75-99)
[2021-07-06] MEDS: INSULIN ASPART (NovoLOG) 100 UNIT/ML VIAL SQ SCH ×2 (07:32→11:36)
[2021-07-06 08:24] VITALS: TEMP 98.2
--- NOTE | 2021-07-06 08:34 | P.PN ---
Subjective Progress Note Date: 07/05/21 Patient [id number] female came in for infected hematoma. Patient was started on ceftezole and patient denied any history of MRSA in the past patient had fever of 101 without any leukocytosis. Patient does have cellulitis with an open wound with fresh granulation tissue. As per the patient this started after heparin injection followed by hematoma which got infected. Patient also has a wound in the left leg which is scabbed. 06/30/2021 Patient is seen this morning and continues on IV zosyn with ID and general surgery following. Awaiting wound cultures. Discussed was had of possible I&D a [facility] surgery watching and observing for now and will continue with IV antibiotics and local wound care. Cefazolin discontinued. No reported fevers overnight and will continue to monitor closely. WBC is within normal limits. Patient denies any chest pain or shortness of breath. Encouraged oral intake especially protein. 07/01/2021 Patient is seen and evaluated this morning continues with abdominal discomfort on the right lower quadrant and the wound continues to appear reddened with drainage noted. General surgery following and will see the patient in the outpatient setting Sunday for revision and tissue sampling. Infectious disease also following and patient is maintained on IV antibiotics in the form of Unasyn with preliminary cultures thus far showing some gram-negative bacilli and positive bacilli and cultures are pending. Recommending to await culture finalization to determine appropriate discharge antibiotics. Patient is afebrile and WBC is 6.5 today. Patient denies chest pain or shortness of breath. Patient tolerating diet although needs encouragement she does not eat very much. Blood pressure elevated and will increase hydralazine and continue to monitor closely. Creatinine slightly elevated at 1.58 and will continue gentle IV hydration with repeat labs in the morning. 07/04/2021 Patient is seen this morning with daughter at the bedside and patient is status post surgical debridement with tissue sampling and deep wound cultures. Patient continues on IV Unasyn with MSSA and will hopefully transition to oral antibiotics. Will discuss with ID about discharge planning. Dr. Stock following as well and will discuss about resuming xarelto. Patient is afebrile. Wound care consulted for wound vac. 07/05/2021 Patient is evaluated this morning and states that her abdominal pain at the surgical site is somewhat improved. General surgery and ID following and awaiting finalized cultures to determine discharge antibiotics. Wound care following as well and has wound vac. Case management following as well and arranging home care. Will repeat am labs and encouraged increased activity as tolerated. Continue to encourage oral intake especially protein. REVIEW OF SYSTEMS: CONSTITUTIONAL: No fever, no malaise, reports fatigue. CARDIOVASCULAR: No chest pain, orthopnea, PND, no palpitations, no syncope. PULMONARY: No shortness of breath, no cough, no hemoptysis. GASTROINTESTINAL: No diarrhea, no nausea, no vomiting, reports lower right abdominal pain improving NEUROLOGICAL: No headaches, no weakness, no numbness. GENITOURINARY: Denies any burning micturition, frequency, or urgency. Active Medications Acetaminophen (Acetaminophen Tab 325 Mg Tab) 650 mg PO Q6HR PRN PRN Reason: Mild Pain or Fever > 100.5 Last Admin: 07/05/21 18:51 Dose: 650 mg Documented by: Atorvastatin Calcium (Atorvastatin 10 Mg Tab) 10 mg PO DAILY [facility] Last Admin: 07/05/21 09:41 Dose: 10 mg Documented by: Collagenase (Collagenase 250 Unit/Gm Ointment 30 Gm Tube) 1 applic TOPICAL DAILY [facility]; Protocol Last Admin: 07/05/21 09:53 Dose: 1 applic Documented by: Docusate Sodium (Docusate 100 Mg Cap) 100 mg PO DAILY [facility] Last Admin: 07/05/21 09:39 Dose: Not Given Documented by: Fluconazole (Fluconazole 100 Mg Tab) 100 mg PO DAILY [facility] Last Admin: 07/05/21 09:40 Dose: 100 mg Documented by: Hydralazine HCl (Hydralazine Hcl 50 Mg Tab) 50 mg PO TID [facility] Last Admin: 07/05/21 19:41 Dose: 50 mg Documented by: Sodium Chloride (Saline 0.9%) 1,000 mls @ 75 mls/hr IV .[id number] [facility] Last Admin: 07/05/21 21:02 Dose: 75 mls/hr Documented by: Ampicillin Sodium/Sulbactam (Sodium 3 gm/ Sodium Chloride) 100 mls @ 200 mls/hr IVPB Q12HR [facility] Last Admin: 07/05/21 21:01 Dose: 200 mls/hr Documented by: Insulin Aspart (Insulin Aspart (Novolog) 100 Unit/Ml Vial) 0 unit SQ ACHS [facility]; Protocol Last Admin: 02/15/22 21:01 Dose: 3 unit Documented by: Insulin Detemir (Insulin Detemir (Levemir) 100 Unit/Ml Syr) 12 unit SQ HS [facility] Last Admin: 07/05/21 21:01 Dose: 12 unit Documented by: Naloxone HCl (Naloxone 0.4 Mg/Ml 1 Ml Vial) 0.2 mg IV Q2M PRN PRN Reason: Opioid Reversal PHYSICAL EXAMINATION: GENERAL:The patient is alert and oriented x3. Well developed, well nourished. HEENT: Pupils are round and equally reacting to light. EOMI. No scleral icterus. No conjunctival pallor. Normocephalic, atraumatic. No pharyngeal erythema. No thyromegaly. CARDIOVASCULAR: S1 and S2 muffled PULMONARY:Diminished breath sounds bilaterally with no wheezing or crackles. ABDOMEN: Soft, nontender, nondistended, normoactive bowel sounds. No palpable organomegaly. surgical dressing noted on the right lower quadrant MUSCULOSKELETAL: No joint swelling or deformity. EXTREMITIES: No cyanosis, clubbing, or pedal edema. NEUROLOGICAL: Gross neurological examination did not reveal any focal deficits. SKIN: right lower abdominal quadrant wound noted Assessment and plan: -Abdominal wall cellulitis with a wound/infected hematoma -status post surgical debridement of right lower abdominal wound -Chronic atrial fibrillation patient is presently bradycardic not on any acute control medication -Acute renal failure on chronic kidney disease stage II acute renal failure appears to be prerenal azotemia -Hypovolemic hyponatremia -Type 2 diabetes mellitus -Hypertension -DVT prophylaxis: Will be resumed on anticoagulation after discussing with surgery about resuming xarelto -No code Plan: Recommend continue with IV antibiotics in the form of Zosyn with ID following closely and awaiting deep tissue cultures to finalize. Fluconazole added. Patient is status post debridement and tissue sampling with DR. Stock surgery. Wound care consulted and awaiting wound vac placement. Cultures with MSSA and will discuss with ID about discharge antibiotics. Encourage increased activity as tolerated. Patient has been afebrile and WBC is within normal limits. Due to multiple complex medical issues, prognosis is guarded. Possible discharge in 24-48 hours. Objective - Vital Signs Vital signs: Vital Signs Temp 98.4 F 07/05/21 07:07 Pulse 59 L 07/05/21 07:07 Resp 18 07/05/21 07:07 BP 155/62 07/05/21 07:07 Pulse Ox 99 07/05/21 07:07 Intake & Output 07/04/21 07/05/21 07/05/21 18:59 06:59 18:59 Intake Total 605 200 Output Total 10 Balance 595 200 Intake: IV 125 Oral 480 200 Output: Estimated Blood Loss 10 Other: Voiding Method Toilet Bedside Commode # Voids 2 2 - Labs CBC & Chem 7: 07/04/21 05:39 07/04/21 05:39 Labs: Abnormal Lab Results - Last 24 Hours (Table) 07/04/21 07/04/21 07/04/21 Range/Units 05:39 05:39 10:04 RBC 2.85 L (4.10-5.20) X 10*6/uL Hgb 9.0 L (12.0-15.0) g/dL Hct 27.0 L (37.2-46.3) % Immature Gran # 0.06 H (0.00-0.04) X 10*3/uL Eosinophils # 0.39 H (0.04-0.35) X 10*3/uL Sodium 132 L (135-145) mmol/L Est GFR (CKD-EPI)AfAm 37.7 L (60.0-200.0) Est GFR (CKD-EPI)NonAf 32.6 L (60.0-200.0) Glucose 67 L (70-110) mg/dL POC Glucose (mg/dL) 71 L (75-99) mg/dL Total Bilirubin <0.15 L (0.30-1.20) mg/dL Albumin 3.2 L (3.8-4.9) g/dL Globulin 3.6 H (1.6-3.3) g/dL Albumin/Globulin Ratio 0.89 L (1.60-3.17) g/dL 07/04/21 07/04/21 07/05/21 Range/Units 16:31 20:47 06:49 RBC (4.10-5.20) X 10*6/uL Hgb (12.0-15.0) g/dL Hct (37.2-46.3) % Immature Gran # (0.00-0.04) X 10*3/uL Eosinophils # (0.04-0.35) X 10*3/uL Sodium (135-145) mmol/L Est GFR (CKD-EPI)AfAm (60.0-200.0) Est GFR (CKD-EPI)NonAf (60.0-200.0) Glucose (70-110) mg/dL POC Glucose (mg/dL) 146 H 430 H 203 H (75-99) mg/dL Total Bilirubin (0.30-1.20) mg/dL Albumin (3.8-4.9) g/dL Globulin (1.6-3.3) g/dL Albumin/Globulin Ratio (1.60-3.17) g/dL Microbiology - Last 24 Hours (Table) 07/04/21 11:45 Anaerobic Culture - Preliminary Abdomen 07/04/21 11:45 Tissue Culture - Preliminary Abdomen 06/28/21 17:55 Blood Culture - Final Blood No Growth after 144 hours 06/28/21 17:40 Blood Culture - Final Blood No Growth after 144 hours 06/30/21 11:02 Anaerobic Culture - Final Abdomen
[2021-07-06] MEDS: ATORVASTATIN 10 MG TAB PO SCH (09:25)
[2021-07-06] MEDS: DOCUSATE 100 MG CAP PO SCH (09:25)
[2021-07-06] MEDS: hydrALAZINE HCL 50 MG TAB PO SCH (09:25)
[2021-07-06] MEDS: COLLAGENASE 250 UNIT/GM OINTMENT 30 GM TUBE TOPICAL SCH ×2 (09:25→10:35)
[2021-07-06] MEDS: FLUCONAZOLE 100 MG TAB PO SCH (09:25)
[2021-07-06] MEDS: AMPICILLIN-SULBACTAM 3 GM in SODIUM CHLORIDE 0.9% 100 ML IVPB SCH (09:25)
[2021-07-06 10:01] LABS: Basophils % (A) 0 %; Eosinophils # (A) 0.3 k/uL (0-0.7); Eosinophils % (A) 3 %; HCT 34.8 % (34.0-46.0); HGB 10.3 gm/dL (11.4-16.0); Hypochromasia Marked; Lymphocytes % (A) 13 %; MCH 31.1 pg (25.0-35.0); MCHC 29.7 g/dL (31.0-37.0); Macrocytosis Slight; Mean Platelet Volume 8.2; Monocytes # (A) 0.5 k/uL (0-1.0); Monocytes % (A) 7 %; Neutrophils # (A) 5.7 k/uL (1.3-7.7); Neutrophils % (A) 75 %; Platelet Count 207 k/uL (150-450); RBC 3.32 m/uL (3.80-5.40); RDW 13.3 % (11.5-15.5); WBC 7.6 k/uL (3.8-10.6)
[2021-07-06 10:03] LABS: MCV 104.6 fL (80.0-100.0)
[2021-07-06 10:13] LABS: African American GFR (CKD) 35 (>60 ml/min/1.73 sqM); Anion Gap 8 mmol/L; Blood Urea Nitrogen 32 mg/dL (7-17); Calcium 10.1 mg/dL (8.4-10.2); Carbon Dioxide 22 mmol/L (22-30); Chloride 104 mmol/L (98-107); Glucose 201 mg/dL (74-99); Non-African American GFR(CKD) 30 (>60 ml/min/1.73 sqM); Potassium 4.5 mmol/L (3.5-5.1); Sodium 134 mmol/L (137-145)
[2021-07-06 11:16] LABS: Glucose,Whole Blood 205 mg/dL (75-99)
[2021-07-06] MEDS: ACETAMINOPHEN TAB 325 MG TAB PO PRN (11:36)
[2021-07-06] MEDS: SODIUM CHLORIDE 0.9% 1,000 ML IV SCH (11:37)
[2021-07-06] MEDS ORDERED: RIVAROXABAN 15 MG TAB PO SCH (12:30)
--- NOTE | 2021-07-06 12:35 | P.PN ---
Subjective Progress Note Date: 07/06/21 CHIEF COMPLAINT: Abdominal wall wound HISTORY OF PRESENT ILLNESS: Patient is status post debridement of abdominal wound. She has wound VAC in place. She has minimal pain at the bottom of the wound. Tolerating regular diet. WBC 7.6. Afebrile. Patient seen and examined with Dr. linares PHYSICAL EXAM: VITAL SIGNS: Reviewed. GENERAL: Well-developed in no acute distress. HEENT: No sclera icterus. Extraocular movements grossly intact. Moist buccal mucosa. Head is atraumatic, normocephalic. ABDOMEN: Soft. Nondistended. Wound VAC in place NEUROLOGIC: Alert and oriented. Cranial nerves II through XII grossly intact. ASSESSMENT: 1. Abdominal wall wound status post debridement 2. Diabetes mellitus PLAN: -Patient can be discharged from surgical standpoint -Continue wound VAC -Continue antibiotics per ID service Physician Profile Shaper Operator note has been reviewed by physician. Signing provider agrees with the documented findings, assessment, and plan of care. Objective - Vital Signs Vital signs: Vital Signs Temp 98.2 F 07/06/21 08:00 Pulse 55 L 07/06/21 08:00 Resp 15 07/06/21 08:00 BP 179/68 07/06/21 08:00 Pulse Ox 99 07/06/21 08:00 Intake & Output 07/05/21 07/06/21 07/06/21 18:59 06:59 18:59 Intake Total 1350 Balance 1350 Intake: Intake, IV Titration 1000 Amount Ampicillin-Sulbactam 3 gm 100 In Sodium Chloride 0.9% 100 ml @ 200 mls/hr IVPB Q12HR [facility] Rx#:[id number] Sodium Chloride 0.9% 1, 900 000 ml @ 75 mls/hr IV . [id number] [facility] Rx#:[id number] Oral 350 Other: Voiding Method Toilet Toilet Bedside Commode Bedside Commode # Voids 2 3 - Labs CBC & Chem 7: 07/06/21 09:39 07/06/21 09:39 Labs: Abnormal Lab Results - Last 24 Hours (Table) 07/05/21 07/05/21 07/06/21 Range/Units 16:20 20:42 09:39 RBC 3.32 L (3.80-5.40) m/uL Hgb 10.3 L (11.4-16.0) gm/dL MCV 104.6 H D (80.0-100.0) fL MCHC 29.7 L (31.0-37.0) g/dL Sodium (137-145) mmol/L BUN (7-17) mg/dL Creatinine (0.52-1.04) mg/dL Glucose (74-99) mg/dL POC Glucose (mg/dL) 213 H 226 H (75-99) mg/dL 07/06/21 07/06/21 Range/Units 09:39 11:15 RBC (3.80-5.40) m/uL Hgb (11.4-16.0) gm/dL MCV (80.0-100.0) fL MCHC (31.0-37.0) g/dL Sodium 134 L (137-145) mmol/L BUN 32 H (7-17) mg/dL Creatinine 1.59 H (0.52-1.04) mg/dL Glucose 201 H (74-99) mg/dL POC Glucose (mg/dL) 205 H (75-99) mg/dL Microbiology - Last 24 Hours (Table) 07/04/21 11:45 Gram Stain - Preliminary Abdomen Tissue Culture - Preliminary
[2021-07-06 14:57] VITALS: BP 167/62; PULSE 54; RESP 14
--- NOTE | 2021-07-07 10:07 | P.DS ---
Providers Date of admission: 06/30/21 09:05 Expected date of discharge: 07/06/21 Attending physician: Faviola Robert Consults: 06/28/21 19:29 Consult Physician Routine Consulting Provider: Mathieu Sotck Consult Reason/Comments: Abdominal wall abscess Do you want consulting provider notified?: Yes Consult Physician Routine Consulting Provider: Jamila Campos Consult Reason/Comments: Abdominal wall abscess Do you want consulting provider notified?: Yes Primary care physician: Megha Nolen Hospital Course: Final diagnosis -Abdominal wall cellulitis with a wound/infected hematoma -status post surgical debridement of right lower abdominal wound -Chronic atrial fibrillation -Acute renal failure on chronic kidney disease stage II acute renal failure appears to be prerenal azotemia -Hypovolemic hyponatremia, improved -Type 2 diabetes mellitus -Hypertension -DVT prophylaxis -No code Discharge disposition Patient is being discharged in a stable condition with guarded prognosis to home. Patient will follow-up with Dr. Nolen upon discharge. Patient will continue with a short course of oral antibiotics per infectious disease recommendations and will follow-up closely with Dr. Campos in the clinic along with wound care and continued home care in the outpatient setting. Patient also to follow-up with general surgery in 1 week. Total time taken is greater than 35 minutes. Hospital course This is an 81-year-old female who was recently admitted with infected hematoma on the right lower abdomen and also having fevers and was being closely monitored. Patient found to have cellulitis around the area with continued drainage and oozing. Patient was followed by infectious disease recommending surgical debridement and deep tissue cultures with general surgery following. Patient underwent deep tissue cultures with debridement and tissue sampling with general surgery Sunday and also has wound VAC and IV antibiotic therapy. Cultures with staph aureus MSSA and Daiana albicans and will continue with oral antibiotics per infectious disease recommendations and will follow with Dr. Campos in the office in one week. Patient will continue with wound VAC and wound care and Homecare in the outpatient setting. Patient lives with daughter and has multiple family members that can help care for her. Patient would like to go home today. Currently no reports of chest pain, shortness of breath, or palpitations. Patient is afebrile. No reports of nausea or vomiting and patient is tolerating diet. Patient will be discharged home today with home care. Guarded prognosis. On exam vital signs are stable. Cardio S1, S2 are muffled. Respiratory shows diminished breath sounds at the bases with no wheezing or rhonchi noted. Abdomen is soft and nontender. Nervous system shows no focal deficits. Please refer to medication reconciliation sheet for a list of medications. The impression and plan of care has been dictated by Mildred Swift, nurse practitioner as directed. MD Radha I have performed a history and examination and MDM of this patient, discussed the same with the dictator, and agree with the dictator's assessment and plan as written ,documented as a scribe. Based on total visit time, I have performed more than 50% of the visit. Any additional findings or plans will be noted. Patient Condition at Discharge: Stable Plan - Discharge Summary Discharge Rx Participant: No New Discharge Prescriptions: New hydrALAZINE HCL [Apresoline] 50 mg PO TID 30 Days #90 tab Fluconazole [Diflucan] 100 mg PO DAILY 4 Days #4 tab Collagenase [Santyl Ointment] 1 applic TOPICAL DAILY 30 Days #1 tub Acetaminophen Tab [Tylenol] 650 mg PO Q6HR PRN #30 tab PRN Reason: Mild Pain Or Fever > 100.5 Continue Insulin Glargine [Lantus Vial] 12 unit SQ HS Docusate Sodium [Dok] 100 mg PO DAILY Furosemide [Lasix] 20 mg PO DAILY Rivaroxaban [Xarelto] 15 mg PO DAILY Amoxicillin/Potassium Clav [Augmentin 875-125 Tablet] 1 tab PO BID Simvastatin [Zocor] 20 mg PO DAILY Cyanocobalamin [Vitamin B-12] 500 mcg PO DAILY Insulin Lispro [Insulin Lispro Kwikpen U-100] See Protocol SQ AC-TID Insulin Lispro [Insulin Lispro Kwikpen U-100] 6 units SQ AC-TID Discontinued lisinopriL [Zestril] 5 mg PO DAILY hydrALAZINE HCL 25 mg PO TID Discharge Medication List Insulin Glargine [Lantus Vial] 12 unit SQ HS 11/09/16 [History] Amoxicillin/Potassium Clav [Augmentin 875-125 Tablet] 1 tab PO BID 06/28/21 [History] Cyanocobalamin [Vitamin B-12] 500 mcg PO DAILY 06/28/21 [History] Docusate Sodium [Dok] 100 mg PO DAILY 06/28/21 [History] Furosemide [Lasix] 20 mg PO DAILY 06/28/21 [History] Insulin Lispro [Insulin Lispro Kwikpen U-100] 6 units SQ AC-TID 06/28/21 [History] Insulin Lispro [Insulin Lispro Kwikpen U-100] See Protocol SQ AC-TID 06/28/21 [History] Rivaroxaban [Xarelto] 15 mg PO DAILY 06/28/21 [History] Simvastatin [Zocor] 20 mg PO DAILY 06/28/21 [History] Acetaminophen Tab [Tylenol] 650 mg PO Q6HR PRN #30 tab 07/06/21 [Rx] Collagenase [Santyl Ointment] 1 applic TOPICAL DAILY 30 Days #1 tub 07/06/21 [Rx] Fluconazole [Diflucan] 100 mg PO DAILY 4 Days #4 tab 07/06/21 [Rx] hydrALAZINE HCL [Apresoline] 50 mg PO TID 30 Days #90 tab 07/06/21 [Rx] Follow up Appointment(s)/Referral(s): [facility], [NON-STAFF] - ([facility] will call you to schedule your in home nursing visits. Your first visit will be on 07/07/21 and they will put the wound vac on you. ) Megha Nolen DO [Primary Care Provider] - 07/08/21 1:00 pm (take your Discharge paperwork to apppointment ) Jamila Campos MD [STAFF PHYSICIAN] - 07/12/21 2:00 pm Mathieu Stock MD [STAFF PHYSICIAN] - 07/14/21 2:30 pm Ambulatory/Diagnostic Orders: Complete Blood Count w/diff [LAB.AMB] Time Frame: 3 Days, Location: None Selected Patient Instructions/Handouts: Negative Pressure Wound Therapy (DC) Activity/Diet/Wound Care/Special Instructions: Please call [facility]/ at [phone] if you have questions regarding the wound vac. Patient to follow-up with Dr. Campos in the wound care center 1 week, call [phone] to make the appointment Activity limited until follow up follow up with pcp on discharge continue antibiotics per Dr. Campos and follow up in his clinic follow up with surgery outpatient continue taking medications as prescribed. continue holding lasix and lisinopril until repeat labs and follow up with primary care provider keep a diary of blood sugar readings and discuss with pcp on follow up encourage oral intake especially protein. repeat labs in 2-3 days. continue home care and wound care Discharge Disposition: HOME WITH HOME HEALTH SERVICES
--- NOTE | 2021-07-13 23:58 | P.PN ---
Subjective Progress Note Date: 07/05/21 Principal diagnosis: Abdominal wall infected hematoma Patient is 81-year-old female with multiple comorbidities including diabetes mellitus admitted to the hospital with right lower abdominal wall infected hematoma. The patient is status post surgical debridement of the wound completed on 07/04/2021 On today's evaluation that is 07/05/2021, the patient continues to be afebrile, patient denies pain to the right lower abdominal wound area, patient denies having any chest pain shortness of breath or cough no nausea no vomiting and no diarrhea with antibiotic therapy Objective - Vital Signs Vital signs: Vital Signs Temp 98.4 F 07/05/21 07:07 Pulse 59 L 07/05/21 07:07 Resp 18 07/05/21 07:07 BP 155/62 07/05/21 07:07 Pulse Ox 99 07/05/21 07:07 Intake & Output 07/04/21 07/05/21 07/05/21 18:59 06:59 18:59 Intake Total 605 200 Output Total 10 Balance 595 200 Intake: IV 125 Oral 480 200 Output: Estimated Blood Loss 10 Other: Voiding Method Toilet Bedside Commode # Voids 2 2 - Exam GENERAL DESCRIPTION: An elderly female lying in bed in no distress RESPIRATORY SYSTEM: Unlabored breathing , decreased breath sounds at bases HEART: S1 S2 regular rate and rhythm , ABDOMEN: Soft , right lower abdominal wall wound is currently packed with the OR dressing EXTREMITIES: Left ankle wound is currently dressed no drainage of the dressing - Labs CBC & Chem 7: 07/06/21 09:39 07/06/21 09:39 Labs: Abnormal Lab Results - Last 24 Hours (Table) 07/04/21 07/04/21 07/05/21 Range/Units 16:31 20:47 06:49 POC Glucose (mg/dL) 146 H 430 H 203 H (75-99) mg/dL 07/05/21 Range/Units 11:03 POC Glucose (mg/dL) 173 H (75-99) mg/dL Microbiology - Last 24 Hours (Table) 07/04/21 11:45 Gram Stain - Preliminary Abdomen Tissue Culture - Preliminary 07/04/21 11:45 Anaerobic Culture - Preliminary Abdomen 06/28/21 17:55 Blood Culture - Final Blood No Growth after 144 hours 06/28/21 17:40 Blood Culture - Final Blood No Growth after 144 hours 06/30/21 11:02 Anaerobic Culture - Final Abdomen Assessment and Plan (1) Abdominal wall abscess Status: Acute Code(s): L02.211 - CUTANEOUS ABSCESS OF ABDOMINAL WALL SNOMED Code(s): 49166960 Plan: 1-Patient with abdominal wall infected hematoma/abscess, culture had been finalized as MSSA, patient to continue with the Unasyn patient is status post boss rgical debridement will possibly need wound VAC on discharge and hopefully finishing therapy with oral Augmentin 2-ankle wound with no cellulitis continue local wound care with the Aquacel silver dressing Time with Patient: Less than 30
--- NOTE | 2021-07-13 23:59 | P.PN ---
Subjective Progress Note Date: 07/06/21 Principal diagnosis: Abdominal wall infected hematoma Patient is 81-year-old female with multiple comorbidities including diabetes mellitus admitted to the hospital with right lower abdominal wall infected hematoma. The patient is status post surgical debridement of the wound completed on 07/04/2021 On today's evaluation that is 07/06/2021, the patient denies any fever or any chills, the patient denies pain to the right lower abdominal wall. No chest pain shortness of breath or cough no diarrhea Objective - Vital Signs Vital signs: Vital Signs Temp 98.2 F 07/06/21 14:00 Pulse 54 L 07/06/21 14:00 Resp 14 07/06/21 14:00 BP 167/62 07/06/21 14:00 Pulse Ox 100 07/06/21 14:00 Intake & Output 07/05/21 07/06/21 07/06/21 18:59 06:59 18:59 Intake Total 1350 Balance 1350 Intake: Intake, IV Titration 1000 Amount Ampicillin-Sulbactam 3 gm 100 In Sodium Chloride 0.9% 100 ml @ 200 mls/hr IVPB Q12HR [facility] Rx#:[id number] Sodium Chloride 0.9% 1, 900 000 ml @ 75 mls/hr IV . [id number] [facility] Rx#:[id number] Oral 350 Other: Voiding Method Toilet Toilet Bedside Commode # Voids 2 3 - Exam GENERAL DESCRIPTION: An elderly female lying in bed in no distress RESPIRATORY SYSTEM: Unlabored breathing , decreased breath sounds at bases HEART: S1 S2 regular rate and rhythm , ABDOMEN: Soft , right lower abdominal wall wound is currently packed with the OR dressing EXTREMITIES: Left ankle wound is currently dressed no drainage of the dressing - Labs CBC & Chem 7: 07/06/21 09:39 07/06/21 09:39 Labs: Abnormal Lab Results - Last 24 Hours (Table) 07/05/21 07/06/21 07/06/21 Range/Units 20:42 09:39 09:39 RBC 3.32 L (3.80-5.40) m/uL Hgb 10.3 L (11.4-16.0) gm/dL MCV 104.6 H D (80.0-100.0) fL MCHC 29.7 L (31.0-37.0) g/dL Sodium 134 L (137-145) mmol/L BUN 32 H (7-17) mg/dL Creatinine 1.59 H (0.52-1.04) mg/dL Glucose 201 H (74-99) mg/dL POC Glucose (mg/dL) 226 H (75-99) mg/dL 07/06/21 Range/Units 11:15 RBC (3.80-5.40) m/uL Hgb (11.4-16.0) gm/dL MCV (80.0-100.0) fL MCHC (31.0-37.0) g/dL Sodium (137-145) mmol/L BUN (7-17) mg/dL Creatinine (0.52-1.04) mg/dL Glucose (74-99) mg/dL POC Glucose (mg/dL) 205 H (75-99) mg/dL Microbiology - Last 24 Hours (Table) 07/04/21 11:45 Gram Stain - Preliminary Abdomen Tissue Culture - Preliminary Assessment and Plan (1) Abdominal wall abscess Status: Acute Code(s): L02.211 - CUTANEOUS ABSCESS OF ABDOMINAL WALL SNOMED Code(s): 66391102 Plan: 1-Patient with abdominal wall infected hematoma/abscess, culture had been finalized as MSSA, patient to continue with the Unasyn patient is status post surgical debridement will benefit from wound VAC on discharge and hopefully finishing therapy with oral Augmentin with close outpatient follow-up in the wound care center next week 2-ankle wound with no cellulitis continue local wound care with the Aquacel silver dressing Time with Patient: Less than 30
== END 2021-07-06 16:30 | disposition home health service (06) | DRG 902 ==
LOC: EC 16:22 → 6NMEDSUR 19:28 → 4SSUR 23:45 → OBSVTOIN 06-30 09:05
PROVIDERS: ADMIT Hospitalist; ATTEND Hospitalist
PROC: 0JB80ZZ Excision of Abdomen Subcutaneous Tissue and Fascia, Open Approach (ICD-10-PCS; principal; 2021-07-04 11:15)
DX: L76.32 Postprocedural hematoma of skin and subcutaneous tissue following other procedure (principal); L02.211 Cutaneous abscess of abdominal wall; E87.1 Hypo-osmolality and hyponatremia; I48.20 Chronic atrial fibrillation, unspecified; L98.495 Non-pressure chronic ulcer of skin of other sites with muscle involvement without evidence of necrosis; N17.9 Acute kidney failure, unspecified; L03.311 Cellulitis of abdominal wall; E86.1 Hypovolemia; L89.512 Pressure ulcer of right ankle, stage 2; L97.523 Non-pressure chronic ulcer of other part of left foot with necrosis of muscle; E11.621 Type 2 diabetes mellitus with foot ulcer; N18.2 Chronic kidney disease, stage 2 (mild); Z20.822 Contact with and (suspected) exposure to COVID-19; E11.22 Type 2 diabetes mellitus with diabetic chronic kidney disease; I12.9 Hypertensive chronic kidney disease with stage 1 through stage 4 chronic kidney disease, or unspecified chronic kidney disease; S30.1XXA Contusion of abdominal wall, initial encounter; Z79.01 Long term (current) use of anticoagulants; Z79.02 Long term (current) use of antithrombotics/antiplatelets; Z79.4 Long term (current) use of insulin; Z79.899 Other long term (current) drug therapy; Z88.6 Allergy status to analgesic agent; Z86.14 Personal history of Methicillin resistant Staphylococcus aureus infection; L76.81 Other intraoperative complications of skin and subcutaneous tissue; Y84.8 Other medical procedures as the cause of abnormal reaction of the patient, or of later complication, without mention of misadventure at the time of the procedure; B95.61 Methicillin susceptible Staphylococcus aureus infection as the cause of diseases classified elsewhere
CPT/HCPCS: 36415; 80048; 80053; 82150; 83605; 83690; 85025; 85027; 85610; 85730; 87040; 87070; 87075; 87077; 87186; 87205; 87635; 88304; 93005; 96365; 99284

== ENCOUNTER 2021-07-17 15:24 | Inpatient (IN) | payer MEDICARE ==
--- NOTE | 2021-07-17 16:04 | ED ---
General Adult HPI - General Chief complaint: Altered Mental Status Stated complaint: Poss TIA Time Seen by Provider: 07/17/21 15:41 Source: patient, family, EMS, RN notes reviewed Mode of arrival: EMS Limitations: no limitations - History of Present Illness Initial comments: Patient is a pleasant 81-year-old female presenting to the emergency Department with change in mental status. Patient is not clear when this occurred. Patient does not recall this episode. Patient denies any problems and feels she is doing fine. Following this further investigation family does arrive and helps provide more history. Last known well was 1 PM. Patient did have a proximal of confusion with inappropriate words and difficulty identifying family members. Patient has had leg weakness since being in the hospital however did not notice one be more weak than the other. Family does agree that there is some appearance of facial weakness on exam this time. Patient did have surgery on her abdomen 13 days ago with abscess and does have a wound VAC still present. - Related Data Home Medications Medication Instructions Recorded Confirmed Insulin Glargine [Lantus Vial] 12 unit SQ HS 11/09/16 06/28/21 Amoxicillin/Potassium Clav 1 tab PO BID 06/28/21 06/28/21 [Augmentin 875-125 Tablet] Cyanocobalamin [Vitamin B-12] 500 mcg PO DAILY 06/28/21 06/28/21 Docusate Sodium [Dok] 100 mg PO DAILY 06/28/21 06/28/21 Furosemide [Lasix] 20 mg PO DAILY 06/28/21 06/28/21 Insulin Lispro [Insulin Lispro 6 units SQ AC-TID 06/28/21 06/28/21 Kwikpen U-100] Insulin Lispro [Insulin Lispro See Protocol SQ AC-TID 06/28/21 06/28/21 Kwikpen U-100] Rivaroxaban [Xarelto] 15 mg PO DAILY 06/28/21 06/28/21 Simvastatin [Zocor] 20 mg PO DAILY 06/28/21 06/28/21 Previous Rx's Medication Instructions Recorded Acetaminophen Tab [Tylenol] 650 mg PO Q6HR PRN #30 tab 07/06/21 Collagenase [Santyl Ointment] 1 applic TOPICAL DAILY 30 Days #1 07/06/21 tub Fluconazole [Diflucan] 100 mg PO DAILY 4 Days #4 tab 07/06/21 hydrALAZINE HCL [Apresoline] 50 mg PO TID 30 Days #90 tab 07/06/21 Allergies Allergy/AdvReac Type Severity Reaction Status Date / Time aspirin Allergy Anaphylaxis Verified 07/17/21 15:32 Review of Systems ROS Statement: Those systems with pertinent positive or pertinent negative responses have been documented in the HPI. ROS Other: All systems not noted in ROS Statement are negative. Constitutional: Denies: fever Eyes: Denies: eye pain ENT: Denies: ear pain Respiratory: Denies: cough Cardiovascular: Denies: chest pain Endocrine: Denies: fatigue Gastrointestinal: Denies: abdominal pain Genitourinary: Denies: dysuria Musculoskeletal: Denies: back pain Skin: Denies: rash Neurological: Reports: as per HPI. Denies: headache Past Medical History Past Medical History: Atrial Fibrillation, Diabetes Mellitus, Hypertension Additional Past Medical History / Comment(s): wound rt foot, wound to left pinkey, wound right abdominal wall History of Any Multi-Drug Resistant Organisms: None Reported Past Surgical History: Cholecystectomy Additional Past Surgical History / Comment(s): hematoma removal abdomen Past Anesthesia/Blood Transfusion Reactions: No Reported Reaction Past Psychological History: No Psychological Hx Reported Smoking Status: Never smoker Past Alcohol Use History: None Reported Past Drug Use History: None Reported - Past Family History Sister(s) Family Medical History: Cancer Brother(s) Family Medical History: Cancer General Exam Limitations: no limitations General appearance: alert, in no apparent distress Head exam: Present: normocephalic Eye exam: Present: normal appearance, PERRL, EOMI ENT exam: Present: normal oropharynx Neck exam: Present: normal inspection Respiratory exam: Present: normal lung sounds bilaterally Cardiovascular Exam: Present: bradycardia, tachycardia GI/Abdominal exam: Present: soft, other (Wound VAC right lower abdomen). Absent: tenderness Extremities exam: Present: normal inspection, full ROM Neurological exam: Present: alert, oriented X3, CN II-XII intact (Except for facial weakness on the left) Expanded Neurological exam: Present: protecting the airway Patient oriented to: Present: person, place, time Speech: Present: fluid speech Sensory exam: Upper Extremity Light Touch: Normal, Lower Extremity Light Touch: Normal Motor strength exam: RUE: 5, LUE: 5, RLE: 2/1, LLE: 4 Eye Response: (4) open spontaneously Motor Response: (6) obeys commands Verbal Response: (5) oriented Psychiatric exam: Present: normal affect, normal mood Skin exam: Present: normal color Course Vital Signs 07/17/21 15:32 Temperature 98.6 F Pulse Rate 59 L Respiratory 16 Rate Blood Pressure 182/74 O2 Sat by Pulse 100 Oximetry - Reevaluation(s) Reevaluation #1: 07/17/21 16:01 At this time patient felt to be poor candidate for TPA secondary to risks outweigh the benefit. Patient is on Xarelto and has had surgery less than 2 weeks ago. 07/17/21 16:12 Case was discussed with Dr. Mcclain who agrees not TPA candidate is also agrees not a candidate for CTA secondary to GFR. EKG Findings - EKG Comments: EKG Findings:: A. fib with slow ventricular response, rate 56. QRS 133. QT 422. QTC 413. Left axis. Right bundle-branch block. No acute ST change. Medical Decision Making - Medical Decision Making Patient reevaluated. Patient family updated. Dr. De La Torre paged for admission for Dr. Garcia - Radiology Data Radiology results: report reviewed (CT brain shows atrophy. No acute intercranial abnormality), image reviewed (Chest x-ray shows no acute process) Disposition Clinical Impression: CVA (cerebral vascular accident) Disposition: ADMITTED IP TO THIS HOSP Is patient prescribed a controlled substance at d/c from ED?: No Referrals: Megha Garcia DO [Primary Care Provider] - 1-2 days Decision Time: 16:26
--- NOTE | 2021-07-17 16:21 | CT ---
EXAMINATION TYPE: CT brain wo con for TPA DATE OF EXAM: 07/17/2021 COMPARISON: None HISTORY: Altered mental status. CT DLP: 1058.4 mGycm Automated exposure control for dose reduction was used. Images obtained of the brain without contrast. There is cerebral cortical atrophy. There is no mass effect or midline shift. There is no sign of int racranial hemorrhage. There is some mild hypodensity in the periventricular white matter. This is see n more in the anterior internal capsule bilaterally. Calvarium is intact. IMPRESSION: Cerebral atrophy and mild chronic small vessel ischemia. No acute intracranial abnormality.
--- NOTE | 2021-07-17 16:22 | XR ---
EXAMINATION TYPE: XR chest 2V DATE OF EXAM: 07/17/2021 COMPARISON: NONE HISTORY: Altered mental status. Weakness. TECHNIQUE: 2 views FINDINGS: There is no heart failure nor confluent pneumonic infiltrate. Costophrenic angles are clear . There are chest leads. Bony thorax is intact. IMPRESSION: No active cardiopulmonary disease.
[2021-07-17 16:44] LABS: Albumin 3.5 g/dL (3.5-5.0); Calcium 9.8 mg/dL (8.4-10.2); Total Bilirubin 0.8 mg/dL (0.2-1.3); Total Protein 7.8 g/dL (6.3-8.2)
[2021-07-17 16:47] LABS: INR 1.6 (<1.2); Partial Thromboplastin Time 36.3 sec (22.0-30.0); Potassium 4.9 mmol/L (3.5-5.1); Prothrombin Time 16.6 sec (9.0-12.0)
[2021-07-17 17:32] LABS: Basophils % (A) 0 %; Eosinophils # (A) 0.3 k/uL (0-0.7); Eosinophils % (A) 3 %; HCT 34.2 % (34.0-46.0); Lymphocytes # (A) 1.2 k/uL (1.0-4.8); Lymphocytes % (A) 12 %; MCH 30.3 pg (25.0-35.0); MCHC 32.1 g/dL (31.0-37.0); Mean Platelet Volume 8.5; Monocytes # (A) 0.8 k/uL (0-1.0); Monocytes % (A) 8 %; Neutrophils # (A) 7.1 k/uL (1.3-7.7); Neutrophils % (A) 74 %; Platelet Count 256 k/uL (150-450); RBC 3.62 m/uL (3.80-5.40); RDW 13.8 % (11.5-15.5); WBC 9.6 k/uL (3.8-10.6)
[2021-07-17 17:45] LABS: MCV 94.3 fL (80.0-100.0)
[2021-07-17] MEDS: hydrALAZINE HCL 50 MG TAB PO SCH (18:39)
[2021-07-17] MEDS: SODIUM CHLORIDE 0.9% 1,000 ML IV SCH (18:40)
[2021-07-17 20:25] LABS: Glucose,Whole Blood 254 mg/dL (75-99)
[2021-07-17] MEDS ORDERED: INSULIN DETEMIR (LEVEMIR) 100 UNIT/ML SYR SQ SCH (21:00)
--- NOTE | 2021-07-17 21:20 | P.HPIM ---
History of Present Illness H&P Date: 07/17/21 Chief Complaint: Altered mental status Patient is a 81-year-old female with a known history of atrial fibrillation paroxysmal on anticoagulation with Xarelto, hypertension, diabetes type 2 insulin-dependent presents to ER with complaints of confusion and generalized weakness. Patient was at the shoulder and family noticed that she is very confused and talking incoherently. Patient was unable to recognize her family members. Symptoms started around 2:11 PM. EMS was called and patient was brought to the hospital as a stroke code. Patient denied any slurred speech. Denied any difficulty finding words. No blurred vision. No seizure-like activity. Patient does take Xarelto for anticoagulation. Patient did have abdominal surgery about 13 days ago and status post wound VAC in place. She completed antibiotic course with Augmentin 1 day prior and patient was also treated for urinary tract infection. Family noticed some left facial weakness while in the ER. Patient was diagnosed with COVID-19 in end of May 2021. She has been having mild cough since then. Patient has been afebrile on admission. On admission blood pressure is 182/74 pulse is 59 respirations 16 pulse ox 9% on room air. Laboratory showed WBC 9.6 hemoglobin 11.0 platelets 256 INR 1.6 Sodium 130 potassium 4.9 chloride 95 bicarb is 23 BUN 31 and creatinine 1.76 Blood sugar is 242 AST 45 ALT 31 alk phos [address] head showed cerebral atrophy and mild chronic small ischemia. No acute abnormality noted. Chest x-ray showed no acute cardiopulmonary disease. EKG showed atrial fibrillation with slow ventricular response. Patient is with Xarelto at home. Patient was seen by stroke network and was not a candidate for TPA. Currently her mental status is back to baseline. Review of Systems Constitutional: Patient denies any fever or chills . Generalized weakness. No weight loss.. Abdomen: Patient denied nausea vomiting and diarrhea and abdominal pain. Cardiovascular: Patient denies any chest pain or short of breath no palpitations. Respiratory: patient denied any cough is from production. No shortness of breath Neurologic: Patient denied any numbness or tingling headache. Musculoskeletal: Patient denies any complaints of joint swelling or deformity. Skin: Negative Psychiatric: Negative Endocrine: No heat or cold intolerance. No recent weight gain. Genitourinary: No dysuria or hematuria. All other 14 point ROS negative except the above Past Medical History Past Medical History: Atrial Fibrillation, Diabetes Mellitus, Hypertension Additional Past Medical History / Comment(s): wound rt foot, wound to left pinkey, wound right abdominal wall History of Any Multi-Drug Resistant Organisms: None Reported Past Surgical History: Cholecystectomy Additional Past Surgical History / Comment(s): hematoma removal abdomen Past Anesthesia/Blood Transfusion Reactions: No Reported Reaction Past Psychological History: No Psychological Hx Reported Smoking Status: Never smoker Past Alcohol Use History: None Reported Past Drug Use History: None Reported - Past Family History Sister(s) Family Medical History: Cancer Brother(s) Family Medical History: Cancer Medications and Allergies Home Medications Medication Instructions Recorded Confirmed Type Insulin Glargine [Lantus Vial] 12 unit SQ HS 11/09/16 07/17/21 History Amoxicillin/Potassium Clav 1 tab PO BID 06/28/21 07/17/21 History [Augmentin 875-125 Tablet] Cyanocobalamin [Vitamin B-12] 500 mcg PO DAILY 06/28/21 07/17/21 History Docusate Sodium [Dok] 100 mg PO DAILY 06/28/21 07/17/21 History Furosemide [Lasix] 20 mg PO DAILY 06/28/21 07/17/21 History Insulin Lispro [Insulin Lispro 6 units SQ AC-TID 06/28/21 07/17/21 History Kwikpen U-100] Insulin Lispro [Insulin Lispro See Protocol SQ AC-TID 06/28/21 07/17/21 History Kwikpen U-100] Rivaroxaban [Xarelto] 15 mg PO DAILY 06/28/21 07/17/21 History Simvastatin [Zocor] 20 mg PO DAILY 06/28/21 07/17/21 History Acetaminophen Tab [Tylenol] 650 mg PO Q6HR PRN #30 tab 07/06/21 07/17/21 Rx Collagenase [Santyl Ointment] 1 applic TOPICAL DAILY 30 Days #1 07/06/21 07/17/21 Rx tub Fluconazole [Diflucan] 100 mg PO DAILY 4 Days #4 tab 07/06/21 07/17/21 Rx hydrALAZINE HCL [Apresoline] 50 mg PO TID 30 Days #90 tab 07/06/21 07/17/21 Rx Allergies Allergy/AdvReac Type Severity Reaction Status Date / Time aspirin Allergy Anaphylaxis Verified 07/17/21 16:27 Physical Exam Vitals: Vital Signs Temp Pulse Pulse Resp BP BP Pulse Ox 07/17/21 18:02 98.2 F 66 16 192/87 100 07/17/21 17:35 98.6 F 71 16 171/80 100 07/17/21 16:35 98.6 F 69 15 176/68 100 07/17/21 16:20 98.6 F 72 16 180/74 100 07/17/21 16:05 70 18 178/71 98 07/17/21 15:50 62 18 180/70 98 07/17/21 15:32 98.6 F 59 L 16 182/74 100 Intake and Output 07/17/21 07/17/21 07/17/21 06:59 14:59 22:59 Other: # Voids 2 Weight 70.76 kg PHYSICAL EXAMINATION: Patient is lying in the bed comfortably, no acute distress, awake alert and oriented.. HEENT: Normocephalic. Neck is supple. Pupils reactive. Nostrils clear. Oral cavity is moist. Neck reveals no JVD, carotid bruits, or thyromegaly. CHEST EXAMINATION: Trachea is central. Symmetrical expansion. Lung natarajan clear to auscultation and percussion. CARDIAC: Normal S1, S2 with no gallops. No murmurs ABDOMEN: Soft. Bowel sounds normal. No organomegaly. No abdominal bruits. Abdominal wound with wound VAC in place. Extremities: reveal no edema. No clubbing or cyanosis. Left fifth toe gangrenous and discolored. Neurologically awake, alert, oriented x3 with well-coordinated movements. Muscle strength 5 out of 5 bilateral upper extremity and 4 out of 5 in the lower extremities. . No gross focal deficits noted Skin: No rash or skin lesions. Psychiatric: Coperative. Nonsuicidal Musculoskeletal: No joint swelling or deformity. Normal range of motion. Results CBC & Chem 7: 07/17/21 16:14 07/18/21 07:17 Labs: Abnormal Lab Results - Last 24 Hours (Table) 07/17/21 07/17/21 07/17/21 Range/Units 16:14 16:14 16:14 RBC 3.62 L (3.80-5.40) m/uL Hgb 11.0 L (11.4-16.0) gm/dL PT 16.6 H (9.0-12.0) sec INR 1.6 H (<1.2) APTT 36.3 H (22.0-30.0) sec Sodium 130 L (137-145) mmol/L Chloride 95 L (98-107) mmol/L BUN 31 H (7-17) mg/dL Creatinine 1.76 H (0.52-1.04) mg/dL Glucose 242 H (74-99) mg/dL POC Glucose (mg/dL) (75-99) mg/dL AST 45 H (14-36) U/L Alkaline Phosphatase 144 H (38-126) U/L 07/17/21 Range/Units 20:23 RBC (3.80-5.40) m/uL Hgb (11.4-16.0) gm/dL PT (9.0-12.0) sec INR (<1.2) APTT (22.0-30.0) sec Sodium (137-145) mmol/L Chloride (98-107) mmol/L BUN (7-17) mg/dL Creatinine (0.52-1.04) mg/dL Glucose (74-99) mg/dL POC Glucose (mg/dL) 254 H (75-99) mg/dL AST (14-36) U/L Alkaline Phosphatase (38-126) U/L Thrombosis Risk Factor Assmnt - DVT/VTE Prophylaxis DVT/VTE Prophylaxis: Pharmacologic Prophylaxis ordered - Choose All That Apply Any of the Below Risk Factors Present?: Yes Each Factor Represents 1 point: History of prior major surgery (<1month) Each Risk Factor Represents 2 Points: Age 61-74 years Thrombosis Risk Factor Assessment Total Risk Factor Score: 3 Thrombosis Risk Factor Assessment Level: Moderate Risk Assessment and Plan Assessment: Altered mental status and confusion with questionable left facial weakness. Rule out acute CVA. Uncontrolled hypertension Recent history of abdominal wall cellulitis with wound infection. Recent COVID-19 infection in end of May 2021 Chronic atrial fibrillation on anticoagulation with Xarelto Diabetes type 2 insulin-dependent Hypertension Left lateral malleolus ulceration. Continue with wound care. Seen by vascular surgery during recent admission. DVT prophylaxis patient is already on full anticoagulation. Plan: Patient was admitted as a stroke code. Was not a TPA candidate as per stroke network team. Patient will be started back on home blood pressure medications and monitor closely. CT head showed no acute process. Neurology was consulted. Will hold Xarelto until cleared by neurology. ID will be consulted after previous infection of the abdominal wall and wound VAC and left lateral malleolus ulceration. Continued wound care. Continue to follow closely. Discussed with her daughter at bedside in detail. Time with Patient: Greater than 30
[2021-07-17] MEDS: amLODIPine 5 MG TAB PO SCH (21:26)
[2021-07-17] MEDS: ACETAMINOPHEN TAB 325 MG TAB PO PRN (21:26)
[2021-07-17] MEDS: INSULIN ASPART (NovoLOG) 100 UNIT/ML VIAL SQ SCH (21:27)
[2021-07-18] MEDS ORDERED: INSULIN DETEMIR (LEVEMIR) 100 UNIT/ML SYR SQ SCH (00:10)
[2021-07-18] MEDS: hydrALAZINE HCL 50 MG TAB PO SCH ×2 (00:22→08:53)
[2021-07-18] MEDS: SODIUM CHLORIDE 0.9% 1,000 ML IV SCH ×3 (04:46→21:13)
[2021-07-18 06:40] LABS: Glucose,Whole Blood 78 mg/dL (75-99)
[2021-07-18] MEDS: INSULIN ASPART (NovoLOG) 100 UNIT/ML VIAL SQ SCH ×7 (07:11→22:37)
[2021-07-18 08:35] LABS: African American GFR (CKD) 35 (>60 ml/min/1.73 sqM); Anion Gap 7 mmol/L; Blood Urea Nitrogen 26 mg/dL (7-17); Calcium 9.3 mg/dL (8.4-10.2); Carbon Dioxide 26 mmol/L (22-30); Chloride 101 mmol/L (98-107); Glucose 125 mg/dL (74-99); Non-African American GFR(CKD) 30 (>60 ml/min/1.73 sqM); Potassium 4.3 mmol/L (3.5-5.1); Sodium 134 mmol/L (137-145)
[2021-07-18] MEDS: amLODIPine 5 MG TAB PO SCH (08:53)
[2021-07-18] MEDS: ATORVASTATIN 10 MG TAB PO SCH (08:53)
[2021-07-18] MEDS: FUROSEMIDE 20 MG TAB PO SCH (08:53)
[2021-07-18] MEDS: CYANOCOBALAMIN 500 MCG TAB PO SCH (08:53)
[2021-07-18] MEDS: DOCUSATE 100 MG CAP PO SCH (08:53)
[2021-07-18] MEDS ORDERED: COLLAGENASE 250 UNIT/GM OINTMENT 30 GM TUBE TOPICAL SCH (09:00)
[2021-07-18 11:16] LABS: Glucose,Whole Blood 240 mg/dL (75-99)
[2021-07-18] MEDS: CLOPIDOGREL 75 MG TAB PO SCH (11:40)
--- NOTE | 2021-07-18 11:59 | P.CNNES ---
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 Some of the history is obtained from patient's daughter (who is at bedside) and medical records. Per the daughter yesterday the patient was confused at around 2pm. When they asked the year she would say 1984, not answering appropriately. They did not notice any facial weakness or focal weakness. When the daughter took her blood pressure it was felt it was in 90's over 40's. Daughter felt her confusion episode lasted for less than one hour and today she is back to baseline. She has history of TIA >10 years ago (for slurred speech). Per the ED notes unsure when the change in mentation occurred and she notified the ED team that she was doing well and there is no issues going on at that current moment but the family felt patient's last normal was at 1 PM on 07/17/2021 and had some confusion and word finding difficulty as well as difficulty identifying family members. Family feel that the there is some facial weakness that's new over the left side but the patient's daughter they did not feel patient had facial weakness. Patient has ulceration of bilateral feet and as result has we akness in legs. Patient denies of low back pain. Patient denies history of seizures. Patient has recent history of abdominal wall cellulitis with wound infection and recent COVID-19 infection and end of May 2021. Some of the patient home medication consist of vitamin B12 500 g daily, hydralazine, simvastatin 20 mg daily, Xarelto 50 mg daily, Lasix. Some of the workup in the hospital consisted of: Initial vital signs as a blood pressure of 182/74, heart rate of 59, respiratory of 16, temperature of 98.6 Fahrenheit oral and pulse ox of 100% at room air. Patient the systolic blood pressure has been in the range of 160s to 180s and diastolic is been in the range of 570s predominantly to 80s and the last one was 109 diastolic. Hemoglobin is 11.0, otherwise the rest of cancer panel is unremarkable. Sodium is 1:30, creatinine is 1.76, initial serum glucose is 242, calcium is 9.8, AST of 45 and ALT of the 30. INR is 1.6. CT of the head is reported as cerebral atrophy and mild chronic small vessel ischemia. No acute cranial abnormality. I personally reviewed the CT of the head there is no acute or subacute ischemia and there is no at the proximal hemorrhage. EKG is reported as age are fibrillation was low ventricular response with aberrant conduction or ventricular premature accomplishes. Right bundle branch block. Left anterior fascicular block. Voltage criteria for left ventricle hypertrophy. Possible septal myocardial infarction, probable old. Review of Systems Review of system: The 12 point system was reviewed and apparent positive and negative per HPI. Past Medical History Past Medical History: Atrial Fibrillation, Diabetes Mellitus, Hypertension Additional Past Medical History / Comment(s): wound rt foot, wound to left pinkey, wound right abdominal wall History of Any Multi-Drug Resistant Organisms: None Reported Past Surgical History: Cholecystectomy Additional Past Surgical History / Comment(s): hematoma removal abdomen Past Anesthesia/Blood Transfusion Reactions: No Reported Reaction Past Psychological History: No Psychological Hx Reported Smoking Status: Never smoker Past Alcohol Use History: None Reported Past Drug Use History: None Reported - Past Family History Sister(s) Family Medical History: Cancer Brother(s) Family Medical History: Cancer Medications and Allergies Home Medications Medication Instructions Recorded Confirmed Type Insulin Glargine [Lantus Vial] 12 unit SQ HS 11/09/16 07/17/21 History Amoxicillin/Potassium Clav 1 tab PO BID 06/28/21 07/17/21 History [Augmentin 875-125 Tablet] Cyanocobalamin [Vitamin B-12] 500 mcg PO DAILY 06/28/21 07/17/21 History Docusate Sodium [Dok] 100 mg PO DAILY 06/28/21 07/17/21 History Furosemide [Lasix] 20 mg PO DAILY 06/28/21 07/17/21 History Insulin Lispro [Insulin Lispro 6 units SQ AC-TID 06/28/21 07/17/21 History Kwikpen U-100] Insulin Lispro [Insulin Lispro See Protocol SQ AC-TID 06/28/21 07/17/21 History Kwikpen U-100] Rivaroxaban [Xarelto] 15 mg PO DAILY 06/28/21 07/17/21 History Simvastatin [Zocor] 20 mg PO DAILY 06/28/21 07/17/21 History Acetaminophen Tab [Tylenol] 650 mg PO Q6HR PRN #30 tab 07/06/21 07/17/21 Rx Collagenase [Santyl Ointment] 1 applic TOPICAL DAILY 30 Days #1 07/06/21 Rx tub Fluconazole [Diflucan] 100 mg PO DAILY 4 Days #4 tab 07/06/21 07/17/21 Rx hydrALAZINE HCL [Apresoline] 50 mg PO TID 30 Days #90 tab 07/06/21 07/17/21 Rx Allergies Allergy/AdvReac Type Severity Reaction Status Date / Time aspirin Allergy Anaphylaxis Verified 07/17/21 16:27 Physical Examination - Vital Signs Vital Signs: Vital Signs Temp Pulse Pulse Pulse Resp BP BP 07/18/21 04:00 98.9 F 70 17 142/79 07/18/21 02:00 73 69 17 07/18/21 00:00 98.7 F 69 17 134/65 07/17/21 20:00 99.1 F 73 73 17 165/109 07/17/21 19:28 99.1 F 73 17 165/109 07/17/21 18:02 98.2 F 66 16 192/87 07/17/21 17:35 98.6 F 71 16 171/80 07/17/21 16:35 98.6 F 69 15 176/68 07/17/21 16:20 98.6 F 72 16 180/74 07/17/21 16:05 70 18 178/71 07/17/21 15:50 62 18 180/70 07/17/21 15:32 98.6 F 59 L 16 182/74 Pulse Ox 07/18/21 04:00 100 07/18/21 02:00 07/18/21 00:00 100 07/17/21 20:00 98 07/17/21 19:28 98 07/17/21 18:02 100 07/17/21 17:35 100 07/17/21 16:35 100 07/17/21 16:20 100 07/17/21 16:05 98 07/17/21 15:50 98 07/17/21 15:32 100 Intake and Output 07/17/21 07/18/21 07/18/21 22:59 06:59 14:59 Intake Total 600 120 Output Total 650 Balance -50 120 Intake: Intake, IV Titration 600 Amount Sodium Chloride 0.9% 1, 600 000 ml @ 100 mls/hr IV . Q10H [facility] Rx#:[id number] Oral 120 Output: Urine 650 Other: Voiding Method Bedside Commode Bedside Commode # Voids 2 2 Weight 70.76 kg GENERAL: The patient is lying in bed and is not in acute distress. CHEST: The heart rate is regular rate rhythm. No murmurs to auscultation. No carotid bruit bilaterally. LUNG: Clear to auscultation bilaterally no wheezing noted throughout. Not labored breathing. ABDOMEN/GI: Bowel sounds present in all 4 quadrants. No tenderness to palpation throughout. NEUROLOGICAL: Higher mental function: The patient is awake, alert, oriented to self, place (stated hospital and called this hospital from older name. She is oriented to month. Initially she got the month wrong on first try and on second try she got it correctly. Patient is following commands. No aphasia and no neglect. Cranial nerves: The pupils are round, equal and reactive to light and accommodation. Visual natarajan are full to confrontation throughout. Extraocular movement is intact no nystagmus is noted. Facial sensation is normal to touch throughout. The facial strength is normal throughout. Hearing is mildly to moderately decreased bilaterally to hand rub. Tongue is midline and moved [id number] without any difficulty. No dysarthria is noted. Shoulder shrug is normal bilaterally. Motor: Gait is deferred because of weakness. The strength is able to raise throughout upper and 5/5 over bilateral proximal but distal could not assess bilaterally because of pain. She is moving the left lower extremity better than right lower (felt she had antigravity over the right but weak and proximal was weaker than distal. Normal tone and bulk. Cerebellum: Normal finger to nose taylor bilaterally. Sensation: Sensation is normal to touch throughout. Reflexes (right/left): 2+ throughout except ankles are 1+ bilaterally. Plantars are mute bilaterally. Results - Laboratory Findings CBC and BMP: 07/17/21 16:14 07/18/21 07:17 Abnormal Lab Findings: Abnormal Labs 07/17/21 07/17/21 07/17/21 16:14 16:14 16:14 RBC 3.62 L Hgb 11.0 L PT 16.6 H INR 1.6 H APTT 36.3 H Sodium 130 L Chloride 95 L BUN 31 H Creatinine 1.76 H Glucose 242 H POC Glucose (mg/dL) AST 45 H Alkaline Phosphatase 144 H 07/17/21 07/18/21 20:23 07:17 RBC Hgb PT INR APTT Sodium 134 L Chloride BUN 26 H Creatinine 1.61 H Glucose 125 H POC Glucose (mg/dL) 254 H AST Alkaline Phosphatase Assessment and Plan Assessment: Right leg weakness and transient confusion (initially ?left facial weakness per ED but per daughter no facial weakness was noted). Rule out acute to subacute ischemic stroke. Patient has uncontrolled hypertension which can lead to encephalopathy (hypertensive encephalopathy). Uncontrolled hypertension Atrial fibrillation on Xarelto Recent history of abdominal wall cellulitis with wound infection Recent COVID-19 infection and end of May 2021 Bilateral feet ulceration Diabetes type 2 Plan: I started the patient on Plavix 75mg daily (not ASA since allergic to ASA). Will hold Xarelto in the meantime until MRI of the brain rules out any acute to subacute ischemic stroke. Continue Lipitor 10 mg daily. I ordered the carotid duplex. 2-D echo and lipid panel was ordered by the ED team is pending. Ordered a routine EEG. I'll not start the patient on antiepileptic drug unless there is up to perform discharges or seizure on the EEG Ordered TSH, vitamin B12, folate level, HbA1c. Continue neuro checks Patient is on cardiac monitoring PT, OT and NURSING PROGRAM CHAIR are consulted. We'll defer the rest of the medical management to the primary team. The plan is discussed with the patient, her daughter who is at bedside and her nurse. Thank you for the consultation. Ken Bertrand M.D. [facility]hospital Time with Patient: Greater than 30
--- NOTE | 2021-07-18 15:51 | EEG ---
ELECTROENCEPHALOGRAM REPORT DATE OF SERVICE: 07/18/2021 CLINICAL HISTORY: This is an 81-year-old woman who presented to the emergency department because of episode of confusion. The video EEG is obtained to evaluate for seizure epileptiform activity. Relevant medication: The patient is not on any antiepileptic drugs. EEG TYPE: A routine 21-channel EEG is performed with video using the 10/20 electrode placement system. DESCRIPTION: Only wakefulness is obtained. During awake state, the posterior dominant rhythm consists of low to moderate voltage that is poorly modulated, poorly sustained of 9 to 10 hertz activity. There is no physiological sleep architecture seen. There is no focal slowing. There is moderate to significant myogenic artifact, predominantly over the left hemisphere and the right temporal region. Interictal and ictal is none. ACTIVATION PROCEDURE: Photic stimulation did not evoke a posterior driving response. There is no abnormality during the photic stimulation. Hyperventilation is not performed. CLINICAL INTERPRETATION: This is a normal routine EEG. There is no focal slowing, epileptiform discharges or seizure on the EEG. Clinical correlation is recommended. MMANNMARIE / TONO: [id number] / MTDD
[2021-07-18 16:00] LABS: Chol/HDL Ratio 2.49 Ratio; LDL Cholesterol,Calculated 53.4 mg/dL (0.0-131.0); VLDL Calculation 17.32 mg/dL (5.00-40.00)
--- NOTE | 2021-07-18 17:05 | US ---
EXAMINATION TYPE: US carotid duplex BILAT DATE OF EXAM: 07/18/2021 COMPARISON: CLINICAL HISTORY: stroke. Altered mental status EXAM MEASUREMENTS: RIGHT: Peak Systolic Velocity (PSV) cm/sec ----- Right CCA: 81.2 ----- Right ICA: 112.9 ----- Right ECA: 98.4 ICA/CCA ratio: 1.4 RIGHT: End Diastole cm/sec ----- Right CCA: 0.0 ----- Right ICA: 4.7 ----- Right ECA: 0.0 LEFT: Peak Systolic Velocity (PSV) cm/sec ----- Left CCA: 84.5 ----- Left ICA: 109.5 ----- Left ECA: 68.0 ICA/CCA ratio: 1.3 LEFT: End Diastole cm/sec ----- Left CCA: 9.1 ----- Left ICA: 9.8 ----- Left ECA: 0.0 VERTEBRALS (direction of flow): Right Vertebral: Antegrade Left Vertebral: Antegrade Rhythm: Arrhythmia No elevated velocities. No significant stenosis. Plaque in left CCA, right ICA and left ICA. Diff use intimal thickening is noted. IMPRESSION: Atheromatous plaquing and intimal thickening without significant flow-limiting stenosis. Criteria for Assigning % of Stenosis / Diameter reduction (Estimation based on the indirect measurements of the internal carotid artery velocities (ICA PSV). 1. Normal (no stenosis)=ICA PSV < 125 cm/s: ratio < 2.0: ICA EDV<40 cm/s. 2. Less than 50% stenosis=ICA PSV < 125 cm/s: ratio < 2.0: ICA EDV<40 cm/s. 3. 50 to 69% stenosis=ICA PSV of 125 to 230 cm/s: ration 2.0 ? 4.0: ICA EDV 40-100 cm/s. 4. Greater than 70% stenosis to near occlusion= ICA PSV > 230 cm/s: ratio > 4.0: ICA EDV > 100 cm/s. 5. Near occlusion= ICA PSV velocities may be low or undetectable: variable ratio and ICA EDV. 6. Total occlusion=unable to detect flow.
[2021-07-18 17:32] LABS: Glucose,Whole Blood 110 mg/dL (75-99)
--- NOTE | 2021-07-18 17:34 | MR ---
MR brain without contrast HISTORY: Right-sided weakness, cerebrovascular accident Multiplanar multisequence imaging obtained through the brain. Exam is correlated to CT brain dated There is a focus of restricted diffusion at the level of the posterior occipital lobe on the left, ax ial image #18 of series 403 and axial image 160 may be additional focus. Cortical atrophy is again no panfilo. There is no hemorrhage or hydrocephalus. Confluent and scattered hyperintensities present in the periventricular, pericallosal, subcortical white matter, deep white matter on inversion recovery T2- weighted sequences. The corpus callosum, pituitary, cervical medullary junction, cerebellopontine ang les are within normal limits. There are expected vascular flow voids. There is motion on exam. Orbits show symmetric appearance. Inflammatory change present within the eth moid air cells, minimal fluid signal present in the mastoid air cells. IMPRESSION: Subacute infarct left occipital lobe. Age-related changes of atrophy and chronic small ve ssel ischemia. Sinus disease.
[2021-07-18] MEDS: hydrALAZINE HCL 25 MG TAB PO SCH ×2 (17:40→22:37)
[2021-07-18 20:40] LABS: Glucose,Whole Blood 207 mg/dL (75-99)
[2021-07-18] MEDS: INSULIN DETEMIR (LEVEMIR) 100 UNIT/ML SYR SQ SCH (22:38)
--- NOTE | 2021-07-18 22:46 | P.PN ---
Subjective Progress Note Date: 07/18/21 Patient is a 81-year-old female with a known history of atrial fibrillation paroxysmal on anticoagulation with Xarelto, hypertension, diabetes type 2 insulin-dependent presents to ER with complaints of confusion and generalized weakness. Patient was at the shoulder and family noticed that she is very con fused and talking incoherently. Patient was unable to recognize her family members. Symptoms started around 2:11 PM. EMS was called and patient was brought to the hospital as a stroke code. Patient denied any slurred speech. Denied any difficulty finding words. No blurred vision. No seizure-like activity. Patient does take Xarelto for anticoagulation. Patient did have abdominal surgery about 13 days ago and status post wound VAC in place. She completed antibiotic course with Augmentin 1 day prior and patient was also treated for urinary tract infection. Family noticed some left facial weakness while in the ER. Patient was diagnosed with COVID-19 in end of May 2021. She has been having mild cough since then. Patient has been afebrile on admission. On admission blood pressure is 182/74 pulse is 59 respirations 16 pulse ox 9% on room air. Laboratory showed WBC 9.6 hemoglobin 11.0 platelets 256 INR 1.6 Sodium 130 potassium 4.9 chloride 95 bicarb is 23 BUN 31 and creatinine 1.76 Blood sugar is 242 AST 45 ALT 31 alk phos [address] head showed cerebral atrophy and mild chronic small ischemia. No acute abnormality noted. Chest x-ray showed no acute cardiopulmonary disease. EKG showed atrial fibrillation with slow ventricular response. Patient is with Xarelto at home. Patient was seen by stroke network and was not a candidate for TPA. Currently her mental status is back to baseline. 07/18/2021 Patient is currently sitting in the chair. Awake alert and oriented but seems to be having generalized weakness. No complaints of chest pain or shortness of breath. No headache or dizziness or lightheadedness. Apparently patient does seem to have more weakness in the right lower extremity compared to left. MRI of the brain was ordered as per neurology recommendations to rule out any subacute/acute stroke. Carotid duplex was ordered as well Patient was started Plavix. Allergic to aspirin. Laboratory data showed sodium improved to 134 potassium 4.3 chloride 101 BUN 26 and creatinine 1.61 and blood sugar is 125 A1c level is 9.2. Blood pressure is better controlled. Current medications reviewed. Objective - Vital Signs Vital signs: Vital Signs Temp 98.7 F 07/18/21 16:00 Pulse 75 07/18/21 16:00 Resp 16 07/18/21 16:00 BP 150/74 07/18/21 16:00 Pulse Ox 98 07/18/21 16:00 Intake & Output 07/18/21 07/18/21 07/19/21 06:59 18:59 06:59 Intake Total 600 238 Output Total 650 Balance -50 238 Intake: Intake, IV Titration 600 Amount Sodium Chloride 0.9% 1, 600 000 ml @ 100 mls/hr IV . Q10H [facility] Rx#:[id number] Oral 238 Output: Urine 650 Other: Voiding Method Bedside Commode Bedside Commode # Voids 2 - Exam PHYSICAL EXAMINATION: Patient is lying in the bed comfortably, no acute distress, awake alert and oriented.. HEENT: Normocephalic. Neck is supple. Pupils reactive. Nostrils clear. Oral cavity is moist. Neck reveals no JVD, carotid bruits, or thyromegaly. CHEST EXAMINATION: Trachea is central. Symmetrical expansion. Lung natarajan clear to auscultation and percussion. CARDIAC: Normal S1, S2 with no gallops. No murmurs ABDOMEN: Soft. Bowel sounds normal. No organomegaly. No abdominal bruits. Abdominal wound with wound VAC in place. Extremities: reveal no edema. No clubbing or cyanosis. Left fifth toe gangrenous and discolored. Neurologically awake, alert, oriented x3 with well-coordinated movements. Muscle strength 5 out of 5 bilateral upper extremity and 4 out of 5 in the lower extremities. . No gross focal deficits noted Skin: No rash or skin lesions. Psychiatric: Coperative. Nonsuicidal Musculoskeletal: No joint swelling or deformity. Normal range of motion. - Labs CBC & Chem 7: 07/17/21 16:14 07/18/21 07:17 Labs: Abnormal Lab Results - Last 24 Hours (Table) 07/18/21 07/18/21 07/18/21 Range/Units 07:17 07:17 11:12 Sodium 134 L (137-145) mmol/L BUN 26 H (7-17) mg/dL Creatinine 1.61 H (0.52-1.04) mg/dL Glucose 125 H (74-99) mg/dL POC Glucose (mg/dL) 240 H (75-99) mg/dL Hemoglobin A1c 9.2 H (0.0-6.0) % 07/18/21 07/18/21 Range/Units 17:30 20:39 Sodium (137-145) mmol/L BUN (7-17) mg/dL Creatinine (0.52-1.04) mg/dL Glucose (74-99) mg/dL POC Glucose (mg/dL) 110 H 207 H (75-99) mg/dL Hemoglobin A1c (0.0-6.0) % Assessment and Plan Assessment: Right lower extremity and confusion. Rule out acute/subacute CVA. Altered mental status and confusion with questionable left facial weakness. Uncontrolled hypertension Recent history of abdominal wall cellulitis with wound infection. Recent COVID-19 infection in end of May 2021 Chronic atrial fibrillation on anticoagulation with Xarelto Uncontrolled with A1c 9.2 Diabetes type 2 insulin-dependent Hypertension Left lateral malleolus ulceration. Continue with wound care. Seen by vascular surgery during recent admission. DVT prophylaxis patient is already on full anticoagulation. Plan: Patient was admitted as a stroke code. Was not a TPA candidate as per stroke network team. Patient was started back on home blood pressure medications and monitor closely. added norvasc 5mg daily CT head showed no acute process. Neurology was consulted. Will hold Xarelto until cleared by neurology. ID will be consulted after previous infection of the abdominal wall and wound VAC and left lateral malleolus ulceration. Continued wound care. Continue to follow closely. Discussed with her daughter at bedside in detail. Time with Patient: Greater than 30
[2021-07-19 00:06] LABS: Folate, Serum 6.9 ng/mL (4.40-31.00)
[2021-07-19] MEDS: INSULIN ASPART (NovoLOG) 100 UNIT/ML VIAL SQ SCH ×7 (06:50→21:46)
[2021-07-19 06:51] LABS: Glucose,Whole Blood 77 mg/dL (75-99)
[2021-07-19 08:20] LABS: Basophils % (A) 0 %; Eosinophils # (A) 0.1 k/uL (0-0.7); Eosinophils % (A) 2 %; HCT 28.9 % (34.0-46.0); Lymphocytes # (A) 1.3 k/uL (1.0-4.8); Lymphocytes % (A) 18 %; MCH 30.5 pg (25.0-35.0); MCHC 32.7 g/dL (31.0-37.0); MCV 93.3 fL (80.0-100.0); Mean Platelet Volume 7.9; Monocytes # (A) 0.5 k/uL (0-1.0); Monocytes % (A) 7 %; Neutrophils # (A) 5.1 k/uL (1.3-7.7); Neutrophils % (A) 69 %; Platelet Count 270 k/uL (150-450); WBC 7.3 k/uL (3.8-10.6)
[2021-07-19 08:26] LABS: HGB 9.5 gm/dL (11.4-16.0)
[2021-07-19 08:36] LABS: Calcium 9.5 mg/dL (8.4-10.2)
[2021-07-19] MEDS: FUROSEMIDE 20 MG TAB PO SCH (08:47)
[2021-07-19] MEDS: amLODIPine 5 MG TAB PO SCH (08:47)
[2021-07-19] MEDS: CLOPIDOGREL 75 MG TAB PO SCH (08:47)
[2021-07-19] MEDS: DOCUSATE 100 MG CAP PO SCH (08:47)
[2021-07-19] MEDS: hydrALAZINE HCL 25 MG TAB PO SCH ×3 (08:47→21:45)
[2021-07-19] MEDS: CYANOCOBALAMIN 500 MCG TAB PO SCH (08:47)
[2021-07-19] MEDS: ATORVASTATIN 10 MG TAB PO SCH (08:48)
[2021-07-19 12:16] LABS: Glucose,Whole Blood 136 mg/dL (75-99)
--- NOTE | 2021-07-19 12:31 | P.PN ---
Subjective Progress Note Date: 07/19/21 The patient is seen at bedside and is accompanied by her daughter who is at bedside. The patient feels she is doing better and daughter feels the same way that patient is improving. Upon coming to see the patient she was standing up and using her walker without assistance. Per daughter no further confusion episodes. Objective - Vital Signs Vital signs: Vital Signs Temp 97.9 F 07/19/21 08:45 Pulse 60 07/19/21 08:45 Resp 18 07/19/21 08:45 BP 134/70 07/19/21 08:45 Pulse Ox 100 07/19/21 08:45 Intake & Output 07/18/21 07/19/21 07/19/21 18:59 06:59 18:59 Intake Total 238 Output Total 650 Balance 238 -650 Intake: Oral 238 Output: Urine 650 Other: Voiding Method Bedside Commode Bedside Commode Bedside Commode # Voids 2 2 - Exam GENERAL: The patient is lying in bed and is not in acute distress. NEUROLOGICAL: Higher mental function: The patient is awake, alert, oriented to self, place and time. Patient is following simple commands. No aphasia and no neglect. Cranial nerves: The pupils are round, equal and reactive to light and accommodation. Visual natarajan are full to confrontation throughout. Extraocular movement is intact no nystagmus is noted. Facial sensation is normal to touch throughout. The facial strength is normal throughout. Hearing is mildly to moderately decreased bilaterally to hand rub. Tongue is midline and moved [id number] without any difficulty. No dysarthria is noted. Shoulder shrug is normal bilaterally. Motor: Gait is able to use walker and taking small steps. The strength is able to raise throughout upper and 5/5 over bilateral proximal but distal could not assess bilaterally because of pain. She is moving the left lower extremity better than right lower but today the strength on the right is better compared to yesterday but slightly mildly weak and is able to lift above gravity. Normal tone and bulk. Cerebellum: Normal finger to nose taylor bilaterally. Sensation: Sensation is normal to touch throughout. Reflexes (right/left): 2+ throughout except ankles are 1+ bilaterally. Plantars are mute bilaterally. WORK-UP: Lipid panel is a triglyceride of 86, cholesterol 118, HDL of 47 and LDL of 53. Vitamin B12 is at thousand 45, folate is 6.90. TSH is 0.[address] is 9[address]2 CT of the head is reported as cerebral atrophy and mild chronic small vessel ischemia. No acute cranial abnormality. I personally reviewed the CT of the head there is no acute or subacute ischemia and there is no at the proximal hemorrhage. MRI of the brain is reported as subacute infarct in left occipital lobe. Age related changes of atrophy and chronic small vessel ischemia. Sinus disease. I personally reviewed MRI and I agree the patient does have the subacute changes over the left occipital with is the small in size. Carotid duplex is reported as atheromatous plaquing and internal thickening without significant flow limiting stenosis. EKG is reported as age are fibrillation was low ventricular response with aberrant conduction or ventricular premature accomplishes. Right bundle branch block. Left anterior fascicular block. Voltage criteria for left ventricle hypertrophy. Possible septal myocardial infarction, probable old. Routine EEG on 07/18/2021 is normal. There is no focal slowing, epileptiform discharges or seizure on EEG. - Labs CBC & Chem 7: 07/19/21 07:32 07/19/21 07:32 Labs: Abnormal Lab Results - Last 24 Hours (Table) 07/18/21 07/18/21 07/18/21 Range/Units 07:17 07:17 17:30 RBC (3.80-5.40) m/uL Hgb (11.4-16.0) gm/dL Hct (34.0-46.0) % Sodium (137-145) mmol/L BUN (7-17) mg/dL Creatinine (0.52-1.04) mg/dL Glucose (74-99) mg/dL POC Glucose (mg/dL) 110 H (75-99) mg/dL Hemoglobin A1c 9.2 H (0.0-6.0) % Vitamin B12 1045.0 H (200.0-944.0) pg/mL 07/18/21 07/19/21 07/19/21 Range/Units 20:39 07:32 07:32 RBC 3.10 L (3.80-5.40) m/uL Hgb 9.5 L D (11.4-16.0) gm/dL Hct 28.9 L (34.0-46.0) % Sodium 133 L (137-145) mmol/L BUN 24 H (7-17) mg/dL Creatinine 1.62 H (0.52-1.04) mg/dL Glucose 72 L (74-99) mg/dL POC Glucose (mg/dL) 207 H (75-99) mg/dL Hemoglobin A1c (0.0-6.0) % Vitamin B12 (200.0-944.0) pg/mL Assessment and Plan Assessment: Subacute Ischemic stroke over left occipital region (small in size). No IV tpa since outside window and risk outweigh the benefit. (on examination Right leg weakness and transient confusion. initially ?left facial weakness per ED but per daughter no facial weakness was noted). Seems embolic in nature especially with history of A-fib. Patient has increased risk for small vessel disease because of her risk factors. Diabetes type 2 (uncontrolled HbA1c 9.2) Uncontrolled hypertension Atrial fibrillation on Xarelto Recent history of abdominal wall cellulitis with wound infection Recent COVID-19 infection and end of May 2021 Bilateral feet ulceration Plan: I started the patient on Plavix 75mg daily (not ASA since allergic to ASA).Xarelto was being held because of stroke. I had a discussion with the patient's daughter regarding the use of anticoagulation in addition to Plavix a nd it was agreed to resume Xarelto and to avoid any antiplatelet because of increased risk of a bleed . Recommend the patient to resume Xarelto by tomorrow and stop Plavix (to resume 15mg daily because renal impairement (home dose) but once kidney function improves recommend to increase to 20mg daily) and will defer that to primary/cardiology team as outpatient. Increased Lipitor from 10 mg to 20mg daily for secondary stroke prophylaxis. Continue neuro checks Patient is on cardiac monitoring: A-fib and HR in 40-70's. PT, OT and [employer] are consulted. We'll defer the rest of the medical management to the primary team. Patient and her daughter would like home physical and occupation therapy rather than subacute or inpatient. Upon discharge the patient needs to follow-up with a neurologist as an outpatient within 1-2 weeks. In the meantime I started the patient on heparin subcu 5000 units every 12 hours for DVT prophylaxis. The plan is discussed with the patient, her daughter who is at bedside and her nurse. There is no further neurological workup. Patient is clear from neurology per spective. Ken Bertrand M.D. [facility] Time with Patient: Less than 30
[2021-07-19 12:39] VITALS: BMI 23.7
[2021-07-19 16:42] LABS: Glucose,Whole Blood 148 mg/dL (75-99)
[2021-07-19] MEDS: SODIUM CHLORIDE 0.9% 1,000 ML IV SCH ×2 (19:48→22:03)
[2021-07-19 20:32] LABS: Glucose,Whole Blood 151 mg/dL (75-99)
[2021-07-19] MEDS ORDERED: HEPARIN SODIUM,PORCINE/PF 5,000 UNIT/0.5 ML SYRINGE SQ SCH (21:00)
[2021-07-19] MEDS: INSULIN DETEMIR (LEVEMIR) 100 UNIT/ML SYR SQ SCH (21:46)
[2021-07-20 06:16] LABS: Glucose,Whole Blood 84 mg/dL (75-99)
[2021-07-20] MEDS: SODIUM CHLORIDE 0.9% 1,000 ML IV SCH ×2 (06:29→17:47)
[2021-07-20] MEDS: INSULIN ASPART (NovoLOG) 100 UNIT/ML VIAL SQ SCH ×7 (06:29→21:17)
[2021-07-20 07:23] LABS: Basophils % (A) 0 %; Eosinophils # (A) 0.4 k/uL (0-0.7); Eosinophils % (A) 6 %; HCT 28.9 % (34.0-46.0); HGB 9.5 gm/dL (11.4-16.0); Lymphocytes # (A) 1.5 k/uL (1.0-4.8); Lymphocytes % (A) 21 %; MCH 30.6 pg (25.0-35.0); MCHC 32.7 g/dL (31.0-37.0); MCV 93.4 fL (80.0-100.0); Mean Platelet Volume 7.9; Monocytes # (A) 0.6 k/uL (0-1.0); Monocytes % (A) 9 %; Neutrophils # (A) 4.5 k/uL (1.3-7.7); Neutrophils % (A) 62 %; Platelet Count 286 k/uL (150-450); RBC 3.09 m/uL (3.80-5.40); RDW 13.5 % (11.5-15.5); WBC 7.2 k/uL (3.8-10.6)
[2021-07-20 07:49] LABS: Calcium 9.8 mg/dL (8.4-10.2); Potassium 4.3 mmol/L (3.5-5.1)
[2021-07-20] MEDS: ATORVASTATIN 20 MG TAB PO SCH (10:11)
[2021-07-20] MEDS: DOCUSATE 100 MG CAP PO SCH (10:11)
[2021-07-20] MEDS: hydrALAZINE HCL 25 MG TAB PO SCH ×3 (10:11→21:16)
[2021-07-20] MEDS: RIVAROXABAN 15 MG TAB PO SCH (10:11)
[2021-07-20] MEDS: FUROSEMIDE 20 MG TAB PO SCH (10:11)
[2021-07-20] MEDS: CYANOCOBALAMIN 500 MCG TAB PO SCH (10:11)
[2021-07-20] MEDS: amLODIPine 5 MG TAB PO SCH (10:11)
--- NOTE | 2021-07-20 11:18 | P.PN ---
Subjective Progress Note Date: 07/19/21 Patient is a 81-year-old female with a known history of atrial fibrillation paroxysmal on anticoagulation with Xarelto, hypertension, diabetes type 2 insulin-dependent presents to ER with complaints of confusion and generalized weakness. Patient was at the shoulder and family noticed that she is very con fused and talking incoherently. Patient was unable to recognize her family members. Symptoms started around 2:11 PM. EMS was called and patient was brought to the hospital as a stroke code. Patient denied any slurred speech. Denied any difficulty finding words. No blurred vision. No seizure-like activity. Patient does take Xarelto for anticoagulation. Patient did have abdominal surgery about 13 days ago and status post wound VAC in place. She completed antibiotic course with Augmentin 1 day prior and patient was also treated for urinary tract infection. Family noticed some left facial weakness while in the ER. Patient was diagnosed with COVID-19 in end of May 2021. She has been having mild cough since then. Patient has been afebrile on admission. On admission blood pressure is 182/74 pulse is 59 respirations 16 pulse ox 9% on room air. Laboratory showed WBC 9.6 hemoglobin 11.0 platelets 256 INR 1.6 Sodium 130 potassium 4.9 chloride 95 bicarb is 23 BUN 31 and creatinine 1.76 Blood sugar is 242 AST 45 ALT 31 alk phos [address] head showed cerebral atrophy and mild chronic small ischemia. No acute abnormality noted. Chest x-ray showed no acute cardiopulmonary disease. EKG showed atrial fibrillation with slow ventricular response. Patient is with Xarelto at home. Patient was seen by stroke network and was not a candidate for TPA. Currently her mental status is back to baseline. 07/18/2021 Patient is currently sitting in the chair. Awake alert and oriented but seems to be having generalized weakness. No complaints of chest pain or shortness of breath. No headache or dizziness or lightheadedness. Apparently patient does seem to have more weakness in the right lower extremity compared to left. MRI of the brain was ordered as per neurology recommendations to rule out any subacute/acute stroke. Carotid duplex was ordered as well Patient was started Plavix. Allergic to aspirin. Laboratory data showed sodium improved to 134 potassium 4.3 chloride 101 BUN 26 and creatinine 1.61 and blood sugar is 125 A1c level is 9.2. Blood pressure is better controlled. 07/19/2021 Patient is currently lying in the bed. Awake alert and oriented 3. Fetus right lower extremity is still weaker than left. No complaints of chest pain. No headache or dizziness or lightheadedness. MRI of the brain showed subacute infarct left occipital lobe. He is related changes of atrophy and chronic small vessel ischemia. EKG showed normal protein easy. Carotid duplex showed no significant stenosis. Pedro in the left CCA right ICA and left ICA. Neurology is following. Plavix has been discontinued and patient was started back on xarelto at 15 mg daily. Current medications reviewed. Objective - Vital Signs Vital signs: Vital Signs Temp 97.9 F 07/19/21 08:45 Pulse 66 07/19/21 16:00 Resp 18 07/19/21 16:00 BP 145/60 07/19/21 16:00 Pulse Ox 100 07/19/21 16:00 Intake & Output 07/19/21 07/19/21 07/20/21 06:59 18:59 06:59 Intake Total 1120 Output Total 650 Balance -650 1120 Weight 70.76 kg Intake: Oral 1120 Output: Urine 650 Other: Voiding Method Bedside Commode Bedside Commode # Voids 2 1 # Bowel Movements 1 - Exam PHYSICAL EXAMINATION: Patient is lying in the bed comfortably, no acute distress, awake alert and oriented.. HEENT: Normocephalic. Neck is supple. Pupils reactive. Nostrils clear. Oral cavity is moist. Neck reveals no JVD, carotid bruits, or thyromegaly. CHEST EXAMINATION: Trachea is central. Symmetrical expansion. Lung natarajan clear to auscultation and percussion. CARDIAC: Normal S1, S2 with no gallops. No murmurs ABDOMEN: Soft. Bowel sounds normal. No organomegaly. No abdominal bruits. Abdominal wound with wound VAC in place. Extremities: reveal no edema. No clubbing or cyanosis. Left fifth toe gangrenous and discolored. Neurologically awake, alert, oriented x3 with well-coordinated movements. Right lower extremity weakness. . No gross focal deficits noted Skin: No rash or skin lesions. Psychiatric: Coperative. Nonsuicidal Musculoskeletal: No joint swelling or deformity. Normal range of motion. - Labs CBC & Chem 7: 07/20/21 06:40 07/20/21 06:40 Labs: Abnormal Lab Results - Last 24 Hours (Table) 07/18/21 07/19/21 07/19/21 Range/Units 07:17 07:32 07:32 RBC 3.10 L (3.80-5.40) m/uL Hgb 9.5 L D (11.4-16.0) gm/dL Hct 28.9 L (34.0-46.0) % Sodium 133 L (137-145) mmol/L BUN 24 H (7-17) mg/dL Creatinine 1.62 H (0.52-1.04) mg/dL Glucose 72 L (74-99) mg/dL POC Glucose (mg/dL) (75-99) mg/dL Vitamin B12 1045.0 H (200.0-944.0) pg/mL 07/19/21 07/19/21 07/19/21 Range/Units 12:14 16:40 20:29 RBC (3.80-5.40) m/uL Hgb (11.4-16.0) gm/dL Hct (34.0-46.0) % Sodium (137-145) mmol/L BUN (7-17) mg/dL Creatinine (0.52-1.04) mg/dL Glucose (74-99) mg/dL POC Glucose (mg/dL) 136 H 148 H 151 H (75-99) mg/dL Vitamin B12 (200.0-944.0) pg/mL Assessment and Plan Assessment: Right lower extremity and confusion. Subacute CVA involving the occipital lobe.. Altered mental status and confusion with questionable left facial weakness. Improved now. Acute kidney injury likely prerenal. Possible underlying CK D stage III. Uncontrolled hypertension Recent history of abdominal wall cellulitis with wound infection. Recent COVID-19 infection in end of May 2021 Chronic atrial fibrillation on anticoagulation with Xarelto Uncontrolled with A1c 9.2 Diabetes type 2 insulin-dependent Hypertension Left lateral malleolus ulceration. Continue with wound care. Seen by vascular surgery during recent admission. DVT prophylaxis patient is already on full anticoagulation. Plan: Patient was admitted as a stroke code. Was not a TPA candidate as per stroke network team. Patient was started back on home blood pressure medications and monitor closely. added norvasc 5mg daily CT head showed no acute process. MRI of the brain showed subacute occipital CVA. Patient was initially started on Plavix and currently started back on Xarelto. Patient has recent history of infection of the abdominal wall and wound VAC and left lateral malleolus ulceration. Continued wound care. Continue to follow closely. Discussed with her daughter at bedside in detail. PTOT is on board. Possible discharge to home with home PT. Time with Patient: Greater than 30
[2021-07-20 11:44] LABS: Glucose,Whole Blood 274 mg/dL (75-99)
[2021-07-20] MEDS ORDERED: COLLAGENASE 250 UNIT/GM OINTMENT 30 GM TUBE TOPICAL SCH (14:45)
[2021-07-20] MEDS: ACETAMINOPHEN TAB 325 MG TAB PO PRN (16:40)
--- NOTE | 2021-07-20 17:23 | XR ---
EXAMINATION TYPE: XR foot complete LT DATE OF EXAM: 07/20/2021 COMPARISON: NONE HISTORY: Pain TECHNIQUE: 3 views FINDINGS: There is plantar and Achilles calcaneal spurring. There is extensive vascular calcification . There is multiple hammertoe deformity. I see no definite focal bone destruction. IMPRESSION: Extensive vascular calcification. No specific signs of osteomyelitis. No fracture.
[2021-07-20] MEDS: AMPICILLIN-SULBACTAM 3 GM in SODIUM CHLORIDE 0.9% 100 ML IVPB SCH (17:46)
[2021-07-20 18:40] LABS: Glucose,Whole Blood 162 mg/dL (75-99)
[2021-07-20 20:52] LABS: Glucose,Whole Blood 153 mg/dL (75-99)
[2021-07-20] MEDS: INSULIN DETEMIR (LEVEMIR) 100 UNIT/ML SYR SQ SCH (21:17)
--- NOTE | 2021-07-20 21:57 | P.PN ---
Subjective Progress Note Date: 07/20/21 Patient is a 81-year-old female with a known history of atrial fibrillation paroxysmal on anticoagulation with Xarelto, hypertension, diabetes type 2 insulin-dependent presents to ER with complaints of confusion and generalized weakness. Patient was at the shoulder and family noticed that she is very con fused and talking incoherently. Patient was unable to recognize her family members. Symptoms started around 2:11 PM. EMS was called and patient was brought to the hospital as a stroke code. Patient denied any slurred speech. Denied any difficulty finding words. No blurred vision. No seizure-like activity. Patient does take Xarelto for anticoagulation. Patient did have abdominal surgery about 13 days ago and status post wound VAC in place. She completed antibiotic course with Augmentin 1 day prior and patient was also treated for urinary tract infection. Family noticed some left facial weakness while in the ER. Patient was diagnosed with COVID-19 in end of May 2021. She has been having mild cough since then. Patient has been afebrile on admission. On admission blood pressure is 182/74 pulse is 59 respirations 16 pulse ox 9% on room air. Laboratory showed WBC 9.6 hemoglobin 11.0 platelets 256 INR 1.6 Sodium 130 potassium 4.9 chloride 95 bicarb is 23 BUN 31 and creatinine 1.76 Blood sugar is 242 AST 45 ALT 31 alk phos [address] head showed cerebral atrophy and mild chronic small ischemia. No acute abnormality noted. Chest x-ray showed no acute cardiopulmonary disease. EKG showed atrial fibrillation with slow ventricular response. Patient is with Xarelto at home. Patient was seen by stroke network and was not a candidate for TPA. Currently her mental status is back to baseline. 07/18/2021 Patient is currently sitting in the chair. Awake alert and oriented but seems to be having generalized weakness. No complaints of chest pain or shortness of breath. No headache or dizziness or lightheadedness. Apparently patient does seem to have more weakness in the right lower extremity compared to left. MRI of the brain was ordered as per neurology recommendations to rule out any subacute/acute stroke. Carotid duplex was ordered as well Patient was started Plavix. Allergic to aspirin. Laboratory data showed sodium improved to 134 potassium 4.3 chloride 101 BUN 26 and creatinine 1.61 and blood sugar is 125 A1c level is 9.2. Blood pressure is better controlled. 07/19/2021 Patient is currently lying in the bed. Awake alert and oriented 3. Fetus right lower extremity is still weaker than left. No complaints of chest pain. No headache or dizziness or lightheadedness. MRI of the brain showed subacute infarct left occipital lobe. He is related changes of atrophy and chronic small vessel ischemia. EEG is normal study Carotid duplex showed no significant stenosis. Pedro in the left CCA right ICA and left ICA. Neurology is following. Plavix has been discontinued and patient was started back on xarelto at 15 mg daily. 07/20/2021 Patient is currently resting in the bed. Awake alert and oriented x3. Still having right lower extremity weakness compared to left. Patient was started the Xarelto 15 mg daily. Patient is participating with physical therapy. Wound care team was consulted. Patient has been afebrile. Denies any cough or sputum production. No complaints of chest pain or shortness breath. Tolerating oral diet. Current medications reviewed. Objective - Vital Signs Vital signs: Vital Signs Temp 98.0 F 07/20/21 20:00 Pulse 56 L 07/20/21 20:00 Resp 18 07/20/21 20:00 BP 123/65 07/20/21 20:00 Pulse Ox 100 07/20/21 20:00 Intake & Output 07/20/21 07/20/21 07/21/21 06:59 18:59 06:59 Intake Total 354 Balance 354 Intake: Oral 354 Other: Voiding Method Bedside Commode Bedside Commode Bedside Commode # Voids 1 1 2 - Exam PHYSICAL EXAMINATION: Patient is lying in the bed comfortably, no acute distress, awake alert and oriented.. HEENT: Normocephalic. Neck is supple. Pupils reactive. Nostrils clear. Oral cavity is moist. Neck reveals no JVD, carotid bruits, or thyromegaly. CHEST EXAMINATION: Trachea is central. Symmetrical expansion. Lung natarajan clear to auscultation and percussion. CARDIAC: Normal S1, S2 with no gallops. No murmurs ABDOMEN: Soft. Bowel sounds normal. No organomegaly. No abdominal bruits. Abdominal wound with wound VAC in place. Extremities: reveal no edema. No clubbing or cyanosis. Left fifth toe gangrenous and discolored. Neurologically awake, alert, oriented x3 with well-coordinated movements. Right lower extremity weakness. . No gross focal deficits noted Skin: No rash or skin lesions. Psychiatric: Coperative. Nonsuicidal Musculoskeletal: No joint swelling or deformity. Normal range of motion. - Labs CBC & Chem 7: 07/20/21 06:40 07/20/21 06:40 Labs: Abnormal Lab Results - Last 24 Hours (Table) 07/20/21 07/20/21 07/20/21 Range/Units 06:40 06:40 11:41 RBC 3.09 L (3.80-5.40) m/uL Hgb 9.5 L (11.4-16.0) gm/dL Hct 28.9 L (34.0-46.0) % Sodium 132 L (137-145) mmol/L BUN 34 H (7-17) mg/dL Creatinine 1.66 H (0.52-1.04) mg/dL POC Glucose (mg/dL) 274 H (75-99) mg/dL 07/20/21 07/20/21 Range/Units 16:40 20:51 RBC (3.80-5.40) m/uL Hgb (11.4-16.0) gm/dL Hct (34.0-46.0) % Sodium (137-145) mmol/L BUN (7-17) mg/dL Creatinine (0.52-1.04) mg/dL POC Glucose (mg/dL) 162 H 153 H (75-99) mg/dL Assessment and Plan Assessment: Right lower extremity and confusion. Subacute CVA involving the occipital lobe.. Altered mental status and confusion with questionable left facial weakness. Improved now. Acute kidney injury likely prerenal. Possible underlying CK D stage III. Uncontrolled hypertension Recent history of abdominal wall cellulitis with wound infection.Continue with wound VAC. Recent COVID-19 infection in end of May 2021 Chronic atrial fibrillation on anticoagulation with Xarelto Uncontrolled with A1c 9.2 Diabetes type 2 insulin-dependent Hypertension Left lateral malleolus ulceration. Continue with wound care. Seen by vascular surgery during recent admission. DVT prophylaxis patient is already on full anticoagulation. Plan: Patient was admitted as a stroke code. Was not a TPA candidate as per stroke network team. Patient was started back on home blood pressure medications and monitor closely. added norvasc 5mg daily CT head showed no acute process. MRI of the brain showed subacute occipital CVA. Patient was initially started on Plavix and currently started back on Xarelto. Patient has recent history of infection of the abdominal wall and wound VAC and left lateral malleolus ulceration. Continued wound care. Continue to follow closely. Discussed with her daughter at bedside in detail. PTOT is on board. Possible discharge to home with home PT. Time with Patient: Greater than 30
--- NOTE | 2021-07-20 23:33 | P.CONS ---
History of Present Illness - Reason for Consult Consult date: 07/20/21 Abdominal and left foot wound Requesting physician: Oneil De La Torre - Chief Complaint Confusion and weakness x few days - History of Present Illness Patient is 81-year-old female who was recently admitted at this facility with right lower abdominal wall infected hematoma status post drainage and is currently being treated with a wound VAC, patient was brought into the ER 4 days ago for evaluation of mental status changes with paroxysmal episodes of confusion and a preoperative orders and difficulty identifying family members with concern for possible CVA and the patient has been admitted to hospital with work-up in progress has been evaluated by neurology services patient did have a MRI of the brain with evidence of subacute infarct left occipital lobe, patient did have a wound VAC which was supposed to be changed on Sunday however wound care team which was consulted did not show up and the patient wound VAC has not been changed patient is Melissa some dull aching pain to the right lower abdominal area but no worsening patient also have a wound on the right lateral ankle area which is currently healing however she has necrotic wound to the left foot at the fifth toe that apparently has gotten significantly worse over the last 4 days since the patient has been in the hospital as per daughter who provided most of the history patient been complaining of some pain more of a dull aching 4 to 5-10 head no radiation the slight drainage of the dressing Review of Systems Positive point has been mentioned in the HPI rest of the systems are negative Past Medical History Past Medical History: Atrial Fibrillation, Diabetes Mellitus, Hypertension Additional Past Medical History / Comment(s): wound rt foot, wound to left pinkey, wound right abdominal wall History of Any Multi-Drug Resistant Organisms: None Reported Past Surgical History: Cholecystectomy Additional Past Surgical History / Comment(s): hematoma removal abdomen Past Anesthesia/Blood Transfusion Reactions: No Reported Reaction Past Psychological History: No Psychological Hx Reported Smoking Status: Never smoker Past Alcohol Use History: None Reported Past Drug Use History: None Reported - Past Family History Sister(s) Family Medical History: Cancer Brother(s) Family Medical History: Cancer Medications and Allergies Home Medications Medication Instructions Recorded Confirmed Type Insulin Glargine [Lantus Vial] 12 unit SQ HS 11/09/16 07/17/21 History Cyanocobalamin [Vitamin B-12] 500 mcg PO DAILY 06/28/21 07/17/21 History Docusate Sodium [Dok] 100 mg PO DAILY 06/28/21 07/17/21 History Furosemide [Lasix] 20 mg PO DAILY 06/28/21 07/17/21 History Insulin Lispro [Insulin Lispro 6 units SQ AC-TID 06/28/21 07/17/21 History Kwikpen U-100] Insulin Lispro [Insulin Lispro See Protocol SQ AC-TID 06/28/21 07/17/21 History Kwikpen U-100] Rivaroxaban [Xarelto] 15 mg PO DAILY 06/28/21 07/17/21 History Simvastatin [Zocor] 20 mg PO DAILY 06/28/21 07/17/21 History Acetaminophen Tab [Tylenol] 650 mg PO Q6HR PRN #30 tab 07/06/21 07/17/21 Rx Collagenase [Santyl Ointment] 1 applic TOPICAL DAILY 30 Days #1 07/06/21 07/17/21 Rx tub hydrALAZINE HCL [Apresoline] 50 mg PO TID 30 Days #90 tab 07/06/21 07/17/21 Rx amLODIPine [Norvasc] 5 mg PO DAILY #30 tab 07/20/21 Rx Allergies Allergy/AdvReac Type Severity Reaction Status Date / Time aspirin Allergy Anaphylaxis Verified 07/17/21 16:27 Physical Exam Vitals: Vital Signs Temp Pulse Pulse Resp BP Pulse Ox 07/20/21 08:00 97.5 F L 53 L 53 L 17 158/70 99 07/20/21 07:56 100 07/20/21 04:00 98.3 F 67 18 130/61 99 07/20/21 02:00 73 68 18 07/20/21 00:00 98.5 F 68 18 132/64 100 07/19/21 20:00 98.1 F 53 L 18 147/53 100 Intake and Output 07/20/21 07/20/21 07/20/21 06:59 14:59 22:59 Intake Total 236 Balance 236 Intake: Oral 236 Other: Voiding Method Bedside Commode Bedside Commode # Voids 1 1 GENERAL DESCRIPTION: An elderly female lying in bed, no distress. No tachypnea or accessory muscle of respiration use. HEENT: Shows Pallor , no scleral icterus. Oral mucous membrane is dry. No pharyngeal erythema or thrush NECK: Trachea central, no thyromegaly. LUNGS: Unlabored breathing. Clear to auscultation anteriorly. No wheeze or crackle. HEART: S1, S2, regular rate and rhythm. No loud murmur ABDOMEN: Soft, right lower abdominal wound base looks clean after removal of the wound VAC with no surrounding redness or drainage EXTREMITIES: Left foot lateral border did have a necrotic wound with a left fifth toe is necrotic and some discoloration of the left fourth toe SKIN: No rash, no masses palpable. NEUROLOGICAL: The patient is awake, alert, oriented x3, mood and affect normal. Results CBC & Chem 7: 07/20/21 06:40 07/20/21 06:40 Labs: Abnormal Lab Results - Last 24 Hours (Table) 07/19/21 07/19/21 07/20/21 Range/Units 16:40 20:29 06:40 RBC 3.09 L (3.80-5.40) m/uL Hgb 9.5 L (11.4-16.0) gm/dL Hct 28.9 L (34.0-46.0) % Sodium (137-145) mmol/L BUN (7-17) mg/dL Creatinine (0.52-1.04) mg/dL POC Glucose (mg/dL) 148 H 151 H (75-99) mg/dL 07/20/21 07/20/21 Range/Units 06:40 11:41 RBC (3.80-5.40) m/uL Hgb (11.4-16.0) gm/dL Hct (34.0-46.0) % Sodium 132 L (137-145) mmol/L BUN 34 H (7-17) mg/dL Creatinine 1.66 H (0.52-1.04) mg/dL POC Glucose (mg/dL) 274 H (75-99) mg/dL Assessment and Plan (1) Open abdominal wall wound Current Visit: Yes Status: Acute Code(s): S31.109A - UNSP OPN WND ABD WALL, UNSP Q W/O PENET PERIT CAV, INIT SNOMED Code(s): 077711736 (2) Gangrene of toe of left foot Current Visit: Yes Status: Acute Code(s): I96 - GANGRENE, NOT ELSEWHERE CLASSIFIED SNOMED Code(s): 66245016727523658 Plan: 1patient with right lower abdominal wall wound status post surgical drainage of an infected hematoma overall wound base looks clean and will continue with local wound care. 2Patient with right foot/ankle area wound with no cellulitis local wound care with a dry Aquacel dressing. 3patient with left foot lateral border gangrene also involving the left fifth toe as well as the fourth toe for which vascular surgery will be consulted and will empirically add her Unasyn. Daughter at the bedside multiple questions were answered We will follow on clinical condition and cultures to further adjust medication if needed Thank you for this consultation will follow this patient along with you Time with Patient: Greater than 30
[2021-07-21] MEDS: AMPICILLIN-SULBACTAM 3 GM in SODIUM CHLORIDE 0.9% 100 ML IVPB SCH ×3 (00:02→15:38)
[2021-07-21] MEDS: INSULIN ASPART (NovoLOG) 100 UNIT/ML VIAL SQ SCH ×7 (06:42→21:11)
[2021-07-21] MEDS: SODIUM CHLORIDE 0.9% 1,000 ML IV SCH ×2 (06:42→20:32)
[2021-07-21 06:43] LABS: Glucose,Whole Blood 78 mg/dL (75-99)
[2021-07-21 07:29] LABS: Basophils % (A) 0 %; Eosinophils # (A) 0.5 k/uL (0-0.7); Eosinophils % (A) 6 %; HCT 31.2 % (34.0-46.0); Lymphocytes # (A) 1.2 k/uL (1.0-4.8); Lymphocytes % (A) 14 %; MCH 30.2 pg (25.0-35.0); MCHC 32.2 g/dL (31.0-37.0); MCV 93.7 fL (80.0-100.0); Mean Platelet Volume 7.6; Monocytes # (A) 0.6 k/uL (0-1.0); Monocytes % (A) 7 %; Neutrophils % (A) 71 %; Platelet Count 331 k/uL (150-450); RBC 3.33 m/uL (3.80-5.40); RDW 13.3 % (11.5-15.5); WBC 8.5 k/uL (3.8-10.6)
[2021-07-21 07:43] LABS: Calcium 9.9 mg/dL (8.4-10.2); Potassium 4.1 mmol/L (3.5-5.1)
[2021-07-21] MEDS: amLODIPine 5 MG TAB PO SCH (07:50)
[2021-07-21] MEDS: DOCUSATE 100 MG CAP PO SCH (07:50)
[2021-07-21] MEDS: FUROSEMIDE 20 MG TAB PO SCH (07:50)
[2021-07-21] MEDS: CYANOCOBALAMIN 500 MCG TAB PO SCH (07:50)
[2021-07-21] MEDS: ATORVASTATIN 20 MG TAB PO SCH (07:50)
[2021-07-21] MEDS: hydrALAZINE HCL 25 MG TAB PO SCH ×3 (07:50→21:11)
[2021-07-21] MEDS: RIVAROXABAN 15 MG TAB PO SCH (07:50)
--- NOTE | 2021-07-21 11:34 | P.GSCN ---
History of Present Illness Consult date: 07/21/21 Reason for Consult: Left foot gangrene Requesting physician: Jamila Campos History of present illness: There is an 81-year-old female with a past medical history of atrial fibrillation, diabetes mellitus and hypertension who presented to the emergency department with altered mental status changes. Apparently the patient was found by family who stated that the patient was speaking inappropriately and difficulty finding words and identifying family members. She also had some leg weakness as small as they believed facial weakness. She was diagnosed with subacute ischemic stroke of her left occipital region. No IV TPA was given since it was outside the window. Neurology is following. Carotid ultrasound showed no significant stenosis bilaterally. Patient was started on Plavix and Xarelto was resumed. She was noted to have ulcer on her right heel as well as ischemic changes to the left fourth and fifth toes and left medial aspect of her foot. Infectious disease was consulted for wound care and IV antibiotic recommendations. Vascular surgery was consulted for further evaluation of gangrene of the left foot. Patient is unsure of duration that but has been black. She does have some discomfort in that foot. She's been afebrile. X-ray of left foot shows no specific signs of osteomyelitis. Vascular surgery was consulted for gangrene of left foot. Review of Systems A 14 point review systems was completed all pertinent positives and negatives as stated in the HPI Past Medical History Past Medical History: Atrial Fibrillation, Diabetes Mellitus, Hypertension Additional Past Medical History / Comment(s): wound rt foot, wound to left pinkey, wound right abdominal wall History of Any Multi-Drug Resistant Organisms: None Reported Past Surgical History: Cholecystectomy Additional Past Surgical History / Comment(s): hematoma removal abdomen Past Anesthesia/Blood Transfusion Reactions: No Reported Reaction Past Psychological History: No Psychological Hx Reported Smoking Status: Never smoker Past Alcohol Use History: None Reported Past Drug Use History: None Reported - Past Family History Sister(s) Family Medical History: Cancer Brother(s) Family Medical History: Cancer Medications and Allergies Home Medications Medication Instructions Recorded Confirmed Type Insulin Glargine [Lantus Vial] 12 unit SQ HS 11/09/16 07/17/21 History Cyanocobalamin [Vitamin B-12] 500 mcg PO DAILY 06/28/21 07/17/21 History Docusate Sodium [Dok] 100 mg PO DAILY 06/28/21 07/17/21 History Furosemide [Lasix] 20 mg PO DAILY 06/28/21 07/17/21 History Insulin Lispro [Insulin Lispro 6 units SQ AC-TID 06/28/21 07/17/21 History Kwikpen U-100] Insulin Lispro [Insulin Lispro See Protocol SQ AC-TID 06/28/21 07/17/21 History Kwikpen U-100] Rivaroxaban [Xarelto] 15 mg PO DAILY 06/28/21 07/17/21 History Simvastatin [Zocor] 20 mg PO DAILY 06/28/21 07/17/21 History Acetaminophen Tab [Tylenol] 650 mg PO Q6HR PRN #30 tab 07/06/21 07/17/21 Rx Collagenase [Santyl Ointment] 1 applic TOPICAL DAILY 30 Days #1 07/06/21 07/17/21 Rx tub hydrALAZINE HCL [Apresoline] 50 mg PO TID 30 Days #90 tab 07/06/21 07/17/21 Rx amLODIPine [Norvasc] 5 mg PO DAILY #30 tab 07/20/21 Rx Allergies Allergy/AdvReac Type Severity Reaction Status Date / Time aspirin Allergy Anaphylaxis Verified 07/17/21 16:27 Surgical - Exam Vital Signs Temp Pulse Resp BP Pulse Ox 98.6 F 59 L 16 182/74 100 07/17/21 15:32 07/17/21 15:32 07/17/21 15:32 07/17/21 15:32 07/17/21 15:32 General appearance: The patient is alert, oriented, appears in no acute distress. HET: Head is normocephalic and atraumatic. Neck: Supple without lymphadenopathy. Trachea midline. No audible carotid bruit. Heart: S1 S2. Regular rate and rhythm. Lungs: Clear to auscultation bilaterally. Abdomen: Soft, nontender, nondistended. Extremities: Bilateral lower extremities without any edema. Right lateral aspect of the heel with a dressing in place. Left fourth and fifth toe with gangrene which is also along the medial aspect of the left foot, no drainage noted. Palpable bilateral femoral pulses. Palpable right popliteal pulse. She has full range of motion of bilateral lower extremities. Neurological: No focal deficits. Strength and sensation are grossly intact. Results - Labs 07/21/21 07:09 07/21/21 07:09 Abnormal Lab Results - Last 24 Hours (Table) 07/20/21 07/20/21 07/20/21 Range/Units 11:41 16:40 20:51 RBC (3.80-5.40) m/uL Hgb (11.4-16.0) gm/dL Hct (34.0-46.0) % Sodium (137-145) mmol/L BUN (7-17) mg/dL Creatinine (0.52-1.04) mg/dL POC Glucose (mg/dL) 274 H 162 H 153 H (75-99) mg/dL 07/21/21 07/21/21 Range/Units 07:09 07:09 RBC 3.33 L (3.80-5.40) m/uL Hgb 10.0 L (11.4-16.0) gm/dL Hct 31.2 L (34.0-46.0) % Sodium 134 L (137-145) mmol/L BUN 42 H (7-17) mg/dL Creatinine 1.60 H (0.52-1.04) mg/dL POC Glucose (mg/dL) (75-99) mg/dL Diabetes panel 07/21/21 Range/Units 07:09 Sodium 134 L (137-145) mmol/L Potassium 4.1 (3.5-5.1) mmol/L Chloride 100 (98-107) mmol/L Carbon Dioxide 25 (22-30) mmol/L BUN 42 H (7-17) mg/dL Creatinine 1.60 H (0.52-1.04) mg/dL Glucose 79 (74-99) mg/dL Calcium 9.9 (8.4-10.2) mg/dL Calcium panel 07/21/21 Range/Units 07:09 Calcium 9.9 (8.4-10.2) mg/dL Pituitary panel 07/21/21 Range/Units 07:09 Sodium 134 L (137-145) mmol/L Potassium 4.1 (3.5-5.1) mmol/L Chloride 100 (98-107) mmol/L Carbon Dioxide 25 (22-30) mmol/L BUN 42 H (7-17) mg/dL Creatinine 1.60 H (0.52-1.04) mg/dL Glucose 79 (74-99) mg/dL Calcium 9.9 (8.4-10.2) mg/dL Adrenal panel 07/21/21 Range/Units 07:09 Sodium 134 L (137-145) mmol/L Potassium 4.1 (3.5-5.1) mmol/L Chloride 100 (98-107) mmol/L Carbon Dioxide 25 (22-30) mmol/L BUN 42 H (7-17) mg/dL Creatinine 1.60 H (0.52-1.04) mg/dL Glucose 79 (74-99) mg/dL Calcium 9.9 (8.4-10.2) mg/dL - Imaging Comments: Arterial study lower extremity shows NATALIE right 0.67, NATALIE left 0.9 X-ray left foot shows extensive vascular calcification with no specific signs of osteomyelitis. No fracture. Carotid duplex Arthermatous plaquing and intimal thickening without significant flow limiting stenosis Brain CT cerebral atrophy and mild chronic small vessel ischemia. No acute intracranial abnormality. MRI brain state subacute infarct left occipital lobe. Age-related changes of atrophy and chronic small vessel ischemia. Sinus disease. Assessment and Plan Assessment: 1. Gangrene left foot 2. Diabetes mellitus 3. Subacute ischemic stroke over left occipital lobe 4. History of atrial fibrillation Plan: 1. Arterial duplex of the bilateral lower extremities ordered 2. CT angiogram abdominal aorta pelvis with runoff ordered 3. Increase IV fluids to 100 mL per hour 4. Repeat BMP this afternoon 5. Continue with recommendations from infectious disease Thank you for this consultation, we will continue to follow. Further recommendations forthcoming The impression and plan of care has been dictated as directed. Dr. Don I performed a history and examination of this patient, discussed the same with the dictator. I agree with the dictator's note ,documented as a scribe. Any additional findings or plans will be noted.
[2021-07-21 11:35] LABS: Glucose,Whole Blood 134 mg/dL (75-99)
--- NOTE | 2021-07-21 11:56 | P.CONS ---
History of Present Illness - Reason for Consult Consult date: 07/21/21 wound care - History of Present Illness This is an 81-year-old patient is being seen on 3 for gangrene to the left fifth digit. Patient was seen approximate 3 weeks ago with the same complaint however the ulceration has declined since that time. She follows with Dr. Campos at [facility] wound care center. They've been utilizing Santyl to the site. Previously patient was seen by vascular surgery who recommended amputation family did not want to proceed on that course at that time. Ulceration to the left foot fifth digit shows gangrene extending to the webbing of the fourth and fifth digit and the lateral aspect of the foot. Review Of Systems: Constitutional: No fever, no chills, no night sweats. No weight change. No weakness, fatigue or lethargy. No daytime sleepiness. Integumentary:reports wounds, no lesions. No rash or pruritus. No unusual bruising. No change in hair or nails. Physical exam: General Appearance: Alert, cooperative, no distress, appears stated age. Skin: See HPI all other Skin color, texture, tugor normal, no rashes or lesions. Neurologic: Alert oriented x3 Assessment: 1. Gangrene to the fifth digit of the left foot. 2. Pressure ulcer to the right malleolus with fat layer exposure stage II Plan: 1. At this time we'll wait for further instructions with vascular surgery. Patient will continue to follow in the wound care center at [facility]. Thank you for the consultation any questions please contact the wound care center DNP note has been reviewed and discussed with Dr. Ricks and the impression and plan of care has been directed as dictated. Past Medical History Past Medical History: Atrial Fibrillation, Diabetes Mellitus, Hypertension Additional Past Medical History / Comment(s): wound rt foot, wound to left pinkey, wound right abdominal wall History of Any Multi-Drug Resistant Organisms: None Reported Past Surgical History: Cholecystectomy Additional Past Surgical History / Comment(s): hematoma removal abdomen Past Anesthesia/Blood Transfusion Reactions: No Reported Reaction Past Psychological History: No Psychological Hx Reported Smoking Status: Never smoker Past Alcohol Use History: None Reported Past Drug Use History: None Reported - Past Family History Sister(s) Family Medical History: Cancer Brother(s) Family Medical History: Cancer Medications and Allergies Home Medications Medication Instructions Recorded Confirmed Type Insulin Glargine [Lantus Vial] 12 unit SQ HS 11/09/16 07/17/21 History Cyanocobalamin [Vitamin B-12] 500 mcg PO DAILY 06/28/21 07/17/21 History Docusate Sodium [Dok] 100 mg PO DAILY 06/28/21 07/17/21 History Furosemide [Lasix] 20 mg PO DAILY 06/28/21 07/17/21 History Insulin Lispro [Insulin Lispro 6 units SQ AC-TID 06/28/21 07/17/21 History Kwikpen U-100] Insulin Lispro [Insulin Lispro See Protocol SQ AC-TID 06/28/21 07/17/21 History Kwikpen U-100] Rivaroxaban [Xarelto] 15 mg PO DAILY 06/28/21 07/17/21 History Simvastatin [Zocor] 20 mg PO DAILY 06/28/21 07/17/21 History Acetaminophen Tab [Tylenol] 650 mg PO Q6HR PRN #30 tab 07/06/21 07/17/21 Rx Collagenase [Santyl Ointment] 1 applic TOPICAL DAILY 30 Days #1 07/06/21 07/17/21 Rx tub hydrALAZINE HCL [Apresoline] 50 mg PO TID 30 Days #90 tab 07/06/21 07/17/21 Rx amLODIPine [Norvasc] 5 mg PO DAILY #30 tab 07/20/21 Rx Allergies Allergy/AdvReac Type Severity Reaction Status Date / Time aspirin Allergy Anaphylaxis Verified 07/17/21 16:27 Physical Exam Vitals: Vital Signs Temp Pulse Resp BP Pulse Ox 07/21/21 11:35 97.5 F L 49 L 16 164/74 98 07/21/21 08:00 98 F 65 17 134/70 100 07/21/21 07:59 100 07/21/21 04:00 98.0 F 44 L 18 164/74 100 07/21/21 02:00 48 L 16 07/21/21 00:00 97.9 F 48 L 17 118/72 99 07/20/21 20:00 98.0 F 56 L 18 123/65 100 07/20/21 16:00 97.8 F 65 17 158/94 94 L 07/20/21 14:00 53 L 17 07/20/21 12:00 97.9 F 65 17 155/82 95 Intake and Output 07/20/21 07/21/21 07/21/21 22:59 06:59 14:59 Intake Total 118 Balance 118 Intake: Oral 118 Other: Voiding Method Bedside Commode Bedside Commode Bedside Commode # Voids 2 1 Results CBC & Chem 7: 07/21/21 07:09 07/21/21 07:09 Labs: Abnormal Lab Results - Last 24 Hours (Table) 07/20/21 07/20/21 07/21/21 Range/Units 16:40 20:51 07:09 RBC 3.33 L (3.80-5.40) m/uL Hgb 10.0 L (11.4-16.0) gm/dL Hct 31.2 L (34.0-46.0) % Sodium (137-145) mmol/L BUN (7-17) mg/dL Creatinine (0.52-1.04) mg/dL POC Glucose (mg/dL) 162 H 153 H (75-99) mg/dL 07/21/21 07/21/21 Range/Units 07:09 11:34 RBC (3.80-5.40) m/uL Hgb (11.4-16.0) gm/dL Hct (34.0-46.0) % Sodium 134 L (137-145) mmol/L BUN 42 H (7-17) mg/dL Creatinine 1.60 H (0.52-1.04) mg/dL POC Glucose (mg/dL) 134 H (75-99) mg/dL Assessment and Plan (1) Non-pressure chronic ulcer of other part of left foot with necrosis of muscle Current Visit: No Status: Acute Code(s): L97.523 - NON-PRS CHRONIC ULCER OTH PRT LEFT FOOT W NECROSIS OF MUSCLE SNOMED Code(s): 791746796 (2) Pressure ulcer of right ankle, stage 2 Current Visit: No Status: Acute Code(s): L89.512 - PRESSURE ULCER OF RIGHT ANKLE, STAGE 2 SNOMED Code(s): 741396953
--- NOTE | 2021-07-21 13:27 | P.PN ---
Subjective Progress Note Date: 07/21/21 The patient is seen at bedside and feels about the same. No new neurological issues. She is getting arterial duplex because of discoloration of her toes. Objective - Vital Signs Vital signs: Vital Signs Temp 97.5 F L 07/21/21 11:35 Pulse 49 L 07/21/21 11:35 Resp 16 07/21/21 11:35 BP 164/74 07/21/21 11:35 Pulse Ox 98 07/21/21 11:35 Intake & Output 07/20/21 07/21/21 07/21/21 18:59 06:59 18:59 Intake Total 354 Balance 354 Intake: Oral 354 Other: Voiding Method Bedside Commode Bedside Commode Bedside Commode # Voids 1 1 - Exam GENERAL: The patient is lying in bed and is not in acute distress. INTEGUMENTARY: Blackish discoloration to left fifth digit. NEUROLOGICAL: Higher mental function: The patient is awake, alert, oriented to self, place and time. Patient is following simple commands. No aphasia and no neglect. Cranial nerves: The pupils are round, equal and reactive to light and accommodation. Visual natarajan are full to confrontation throughout. Extraocular movement is intact no nystagmus is noted. Facial sensation is normal to touch throughout. The facial strength is normal throughout. Hearing is mildly to m oderately decreased bilaterally to hand rub. Tongue is midline and moved [id number] without any difficulty. No dysarthria is noted. Shoulder shrug is normal bilaterally. Motor: Gait is able to use walker and taking small steps. The strength is able to raise throughout upper and 5/5 over bilateral proximal but distal could not assess bilaterally because of pain. She is moving the left lower extremity better than right lower but today the strength on the right is better compared to yesterday but slightly mildly weak and is able to lift above gravity. Normal tone and bulk. Cerebellum: Normal finger to nose taylor bilaterally. Sensation: Sensation is normal to touch throughout. Reflexes (right/left): 2+ throughout except ankles are 1+ bilaterally. Plantars are mute bilaterally. WORK-UP: Lipid panel is a triglyceride of 86, cholesterol 118, HDL of 47 and LDL of 53. Vitamin B12 is at thousand 45, folate is 6.90. TSH is 0.397 Hem[address]c is 9.2 CT of the head is reported as cerebral atrophy and mild chronic small vessel ischemia. No acute cranial abnormality. I personally reviewed the CT of the head there is no acute or subacute ischemia and there is no at the proximal hemorrhage. MRI of the brain is reported as subacute infarct in left occipital lobe. Age re lated changes of atrophy and chronic small vessel ischemia. Sinus disease. I personally reviewed MRI and I agree the patient does have the subacute changes over the left occipital with is the small in size. Carotid duplex is reported as atheromatous plaquing and internal thickening without significant flow limiting stenosis. EKG is reported as age are fibrillation was low ventricular response with aberrant conduction or ventricular premature accomplishes. Right bundle branch block. Left anterior fascicular block. Voltage criteria for left ventricle hypertrophy. Possible septal myocardial infarction, probable old. Routine EEG on 07/18/2021 is normal. There is no focal slowing, epileptiform discharges or seizure on EEG. - Labs CBC & Chem 7: 07/21/21 07:09 07/21/21 07:09 Labs: Abnormal Lab Results - Last 24 Hours (Table) 07/20/21 07/20/21 07/21/21 Range/Units 16:40 20:51 07:09 RBC 3.33 L (3.80-5.40) m/uL Hgb 10.0 L (11.4-16.0) gm/dL Hct 31.2 L (34.0-46.0) % Sodium (137-145) mmol/L BUN (7-17) mg/dL Creatinine (0.52-1.04) mg/dL POC Glucose (mg/dL) 162 H 153 H (75-99) mg/dL 07/21/21 07/21/21 Range/Units 07:09 11:34 RBC (3.80-5.40) m/uL Hgb (11.4-16.0) gm/dL Hct (34.0-46.0) % Sodium 134 L (137-145) mmol/L BUN 42 H (7-17) mg/dL Creatinine 1.60 H (0.52-1.04) mg/dL POC Glucose (mg/dL) 134 H (75-99) mg/dL Assessment and Plan Assessment: Subacute Ischemic stroke over left occipital region (small in size). No IV tpa since outside window and risk outweigh the benefit. (on examination Right leg weakness and transient confusion. initially ?left facial weakness per ED but per daughter no facial weakness was noted). Seems embolic in nature especially with history of A-fib. Patient has increased risk for small vessel disease because of her risk factors. 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 patient has gangrene of the left foot (toes) and is planning to have angio by vascular surgery team. Family did not want plavix in additon to anticoagulation because of risk of bleed. Patient cannot have ASA since allergic to ASA. Once renal impairement improves recommend to increase to 20mg daily and will defer final decision to her PCP and cardiology team. Continue lipitor 20mg daily for secondary stroke prophylaxis. Continue neuro checks Patient is on cardiac monitoring: A-fib PT, OT and COUNTER SALES PERSON are consulted. Vascular surgery team is on board We'll defer the rest of the medical management to the primary team. Patient and her daughter would like home physical and occupation therapy rather than subacute or inpatient. Upon discharge the patient needs to follow-up with a neurologist as an outpatient within 1-2 weeks. In the meantime subq heparin is held for now for DVT because of angio for tomorrow. The plan is discussed with the patient, her daughter who is at bedside and her nurse. There is no further neurological work-up. Ken Bertrand M.D. [facility]
[2021-07-21 13:51] LABS: Amylase 53 U/L (30-110); Lipase 116 U/L (23-300)
[2021-07-21 13:57] LABS: Calcium 10.3 mg/dL (8.4-10.2); Potassium 4.1 mmol/L (3.5-5.1)
[2021-07-21] MEDS: ACETAMINOPHEN TAB 325 MG TAB PO PRN (14:03)
[2021-07-21 16:39] LABS: Glucose,Whole Blood 140 mg/dL (75-99)
[2021-07-21 20:39] LABS: Glucose,Whole Blood 191 mg/dL (75-99)
[2021-07-21] MEDS: INSULIN DETEMIR (LEVEMIR) 100 UNIT/ML SYR SQ SCH (21:12)
--- NOTE | 2021-07-21 22:50 | P.PN ---
Subjective Progress Note Date: 07/21/21 Patient is a 81-year-old female with a known history of atrial fibrillation paroxysmal on anticoagulation with Xarelto, hypertension, diabetes type 2 insulin-dependent presents to ER with complaints of confusion and generalized weakness. Patient was at the shoulder and family noticed that she is very con fused and talking incoherently. Patient was unable to recognize her family members. Symptoms started around 2:11 PM. EMS was called and patient was brought to the hospital as a stroke code. Patient denied any slurred speech. Denied any difficulty finding words. No blurred vision. No seizure-like activity. Patient does take Xarelto for anticoagulation. Patient did have abdominal surgery about 13 days ago and status post wound VAC in place. She completed antibiotic course with Augmentin 1 day prior and patient was also treated for urinary tract infection. Family noticed some left facial weakness while in the ER. Patient was diagnosed with COVID-19 in end of May 2021. She has been having mild cough since then. Patient has been afebrile on admission. On admission blood pressure is 182/74 pulse is 59 respirations 16 pulse ox 9% on room air. Laboratory showed WBC 9.6 hemoglobin 11.0 platelets 256 INR 1.6 Sodium 130 potassium 4.9 chloride 95 bicarb is 23 BUN 31 and creatinine 1.76 Blood sugar is 242 AST 45 ALT 31 alk phos [address] head showed cerebral atrophy and mild chronic small ischemia. No acute abnormality noted. Chest x-ray showed no acute cardiopulmonary disease. EKG showed atrial fibrillation with slow ventricular response. Patient is with Xarelto at home. Patient was seen by stroke network and was not a candidate for TPA. Currently her mental status is back to baseline. 07/18/2021 Patient is currently sitting in the chair. Awake alert and oriented but seems to be having generalized weakness. No complaints of chest pain or shortness of breath. No headache or dizziness or lightheadedness. Apparently patient does seem to have more weakness in the right lower extremity compared to left. MRI of the brain was ordered as per neurology recommendations to rule out any subacute/acute stroke. Carotid duplex was ordered as well Patient was started Plavix. Allergic to aspirin. Laboratory data showed sodium improved to 134 potassium 4.3 chloride 101 BUN 26 and creatinine 1.61 and blood sugar is 125 A1c level is 9.2. Blood pressure is better controlled. 07/19/2021 Patient is currently lying in the bed. Awake alert and oriented 3. Fetus right lower extremity is still weaker than left. No complaints of chest pain. No headache or dizziness or lightheadedness. MRI of the brain showed subacute infarct left occipital lobe. He is related changes of atrophy and chronic small vessel ischemia. EEG is normal study Carotid duplex showed no significant stenosis. Pedro in the left CCA right ICA and left ICA. Neurology is following. Plavix has been discontinued and patient was started back on xarelto at 15 mg daily. 07/20/2021 Patient is currently resting in the bed. Awake alert and oriented x3. Still having right lower extremity weakness compared to left. Patient was started the Xarelto 15 mg daily. Patient is participating with physical therapy. Wound care team was consulted. Patient has been afebrile. Denies any cough or sputum production. No complaints of chest pain or shortness breath. Tolerating oral diet. 07/21/2021 Patient was admitted to hospital due to subacute CVA with right lower extremity weakness. Patient is currently lying in the bed. Awake alert and oriented x3. Minimal right-sided weakness. No complaints of cough or sputum production. No chest pain or shortness of breath. Patient does have left sided gangrenous toes and vascular surgery evaluation is pending. Continue wound care with right heel stage II ulcer. Patient is empiric antibiotics in the form of Unasyn. ID is following. Wound care is following for her recent abdominal wound with wound VAC. Patient is tolerating oral diet. Current medications reviewed. Objective - Vital Signs Vital signs: Vital Signs Temp 97.5 F L 07/21/21 11:35 Pulse 49 L 07/21/21 11:35 Resp 16 07/21/21 11:35 BP 164/74 07/21/21 11:35 Pulse Ox 98 07/21/21 11:35 Intake & Output 07/20/21 07/21/21 07/21/21 18:59 06:59 18:59 Intake Total 354 240 Balance 354 240 Intake: Oral 354 240 Other: Voiding Method Bedside Commode Bedside Commode Bedside Commode # Voids 1 1 - Exam PHYSICAL EXAMINATION: Patient is lying in the bed comfortably, no acute distress, awake alert and oriented.. HEENT: Normocephalic. Neck is supple. Pupils reactive. Nostrils clear. Oral cavity is moist. Neck reveals no JVD, carotid bruits, or thyromegaly. CHEST EXAMINATION: Trachea is central. Symmetrical expansion. Lung natarajan clear to auscultation and percussion. CARDIAC: Normal S1, S2 with no gallops. No murmurs ABDOMEN: Soft. Bowel sounds normal. No organomegaly. No abdominal bruits. Abdominal wound with wound VAC in place. Extremities: reveal no edema. No clubbing or cyanosis. Left fifth toe gangreno us and discolored. Neurologically awake, alert, oriented x3 with well-coordinated movements. Right lower extremity weakness. . No gross focal deficits noted Skin: No rash or skin lesions. Psychiatric: Coperative. Nonsuicidal Musculoskeletal: No joint swelling or deformity. Normal range of motion. - Labs CBC & Chem 7: 07/21/21 07:09 07/21/21 13:12 Labs: Abnormal Lab Results - Last 24 Hours (Table) 07/20/21 07/20/21 07/21/21 Range/Units 16:40 20:51 07:09 RBC 3.33 L (3.80-5.40) m/uL Hgb 10.0 L (11.4-16.0) gm/dL Hct 31.2 L (34.0-46.0) % Sodium (137-145) mmol/L BUN (7-17) mg/dL Creatinine (0.52-1.04) mg/dL Glucose (74-99) mg/dL POC Glucose (mg/dL) 162 H 153 H (75-99) mg/dL Calcium (8.4-10.2) mg/dL 07/21/21 07/21/21 07/21/21 Range/Units 07:09 11:34 13:12 RBC (3.80-5.40) m/uL Hgb (11.4-16.0) gm/dL Hct (34.0-46.0) % Sodium 134 L 134 L (137-145) mmol/L BUN 42 H 41 H (7-17) mg/dL Creatinine 1.60 H 1.62 H (0.52-1.04) mg/dL Glucose 152 H (74-99) mg/dL POC Glucose (mg/dL) 134 H (75-99) mg/dL Calcium 10.3 H (8.4-10.2) mg/dL Assessment and Plan Assessment: Right lower extremity weakness and confusion. MRI showed Subacute CVA involving the occipital lobe.. Altered mental status and confusion with questionable left facial weakness. Improved now. Acute kidney injury likely prerenal. Possible underlying CK D stage III. Uncontrolled hypertension Recent history of abdominal wall cellulitis with wound infection.Continue with wound VAC. Recent COVID-19 infection in end of May 2021 Chronic atrial fibrillation on anticoagulation with Xarelto Uncontrolled with A1c 9.2 Diabetes type 2 insulin-dependent Hypertension Left lateral malleolus ulceration and gangrenous toes. Continue with wound care. Seen by vascular surgery during recent admission. DVT prophylaxis patient is already on full anticoagulation. Plan: Patient was admitted as a stroke code. Was not a TPA candidate as per stroke network team. Patient was started back on home blood pressure medications and monitor closely. added norvasc 5mg daily CT head showed no acute process. MRI of the brain showed subacute occipital CVA. Patient was initially started on Plavix and currently started back on Xarelto. Patient has recent history of infection of the abdominal wall and wound VAC and left lateral malleolus ulceration and gangrenous toes. Continued wound care. Continue to follow closely. Discussed with her daughter at bedside in detail. PTOT is on board. Wound care is following. Vascular surgery evaluation is pending. Possible discharge to home with home PT. Time with Patient: Greater than 30
--- NOTE | 2021-07-21 23:08 | P.PN ---
Subjective Progress Note Date: 07/21/21 Principal diagnosis: Right lower abdominal wall wound and left foot gangrene Patient is 81-year-old female presented to hospital with mental status changes concerning for a CVA in this patient also have right lower abdominal wall wound after resection of the infected hematoma, patient also noticed to have a gangrenous changes to the left fifth toe. On today's evaluation that is 07/21/2021, the patient is afebrile the patient is feeling slightly better, breathing comfortably no chest pain shortness of breath or cough no abdominal pain, has been complaining of some pain to the left foot but no worsening Objective - Vital Signs Vital signs: Vital Signs Temp 98 F 07/21/21 08:00 Pulse 65 07/21/21 08:00 Resp 17 07/21/21 08:00 BP 134/70 07/21/21 08:00 Pulse Ox 100 07/21/21 08:00 Intake & Output 07/20/21 07/21/21 07/21/21 18:59 06:59 18:59 Intake Total 354 Balance 354 Intake: Oral 354 Other: Voiding Method Bedside Commode Bedside Commode Bedside Commode # Voids 1 1 - Exam GENERAL DESCRIPTION: An elderly female lying in bed in no distress RESPIRATORY SYSTEM: Unlabored breathing , decreased breath sounds at bases HEART: S1 S2 regular rate and rhythm , ABDOMEN: Soft , no tenderness EXTREMITIES: Left foot lateral border along with left fifth toe gangrene minimal swelling and drainage - Labs CBC & Chem 7: 07/21/21 07:09 07/21/21 13:12 Labs: Abnormal Lab Results - Last 24 Hours (Table) 07/20/21 07/20/21 07/20/21 Range/Units 11:41 16:40 20:51 RBC (3.80-5.40) m/uL Hgb (11.4-16.0) gm/dL Hct (34.0-46.0) % Sodium (137-145) mmol/L BUN (7-17) mg/dL Creatinine (0.52-1.04) mg/dL POC Glucose (mg/dL) 274 H 162 H 153 H (75-99) mg/dL 07/21/21 07/21/21 Range/Units 07:09 07:09 RBC 3.33 L (3.80-5.40) m/uL Hgb 10.0 L (11.4-16.0) gm/dL Hct 31.2 L (34.0-46.0) % Sodium 134 L (137-145) mmol/L BUN 42 H (7-17) mg/dL Creatinine 1.60 H (0.52-1.04) mg/dL POC Glucose (mg/dL) (75-99) mg/dL Assessment and Plan (1) Open abdominal wall wound Current Visit: Yes Status: Acute Code(s): S31.109A - UNSP OPN WND ABD WALL, UNSP Q W/O PENET PERIT CAV, INIT SNOMED Code(s): 010218929 (2) Gangrene of toe of left foot Current Visit: Yes Status: Acute Code(s): I96 - GANGRENE, NOT ELSEWHERE CLASSIFIED SNOMED Code(s): 92658080715980647 Plan: 1patient with right lower abdominal wall wound status post surgical drainage of an infected hematoma overall wound base looks clean and will continue with local wound care with a wound VAC to be changed Sunday and Sunday. 2Patient with right foot/ankle area wound with no cellulitis local wound care with a dry Aquacel dressing. 3patient with left foot lateral border gangrene also involving the left fifth toe as well as the fourth toe , x-ray didn't show any bony changes vascular surgery has been consulted waiting the recommendation to continue with the Unasyn family at the bedside and multiple questions were answered Time with Patient: Less than 30
[2021-07-22] MEDS: AMPICILLIN-SULBACTAM 3 GM in SODIUM CHLORIDE 0.9% 100 ML IVPB SCH ×3 (00:38→20:34)
[2021-07-22] MEDS: INSULIN ASPART (NovoLOG) 100 UNIT/ML VIAL SQ SCH ×7 (06:04→20:34)
[2021-07-22 06:14] LABS: Glucose,Whole Blood 98 mg/dL (75-99)
[2021-07-22 07:12] LABS: Basophils % (A) 0 %; Eosinophils # (A) 0.5 k/uL (0-0.7); Eosinophils % (A) 6 %; HGB 9.5 gm/dL (11.4-16.0); Lymphocytes # (A) 1.2 k/uL (1.0-4.8); Lymphocytes % (A) 15 %; MCH 30.9 pg (25.0-35.0); MCHC 32.9 g/dL (31.0-37.0); MCV 93.8 fL (80.0-100.0); Mean Platelet Volume 7.8; Monocytes # (A) 0.6 k/uL (0-1.0); Monocytes % (A) 8 %; Neutrophils # (A) 5.4 k/uL (1.3-7.7); Neutrophils % (A) 69 %; Platelet Count 290 k/uL (150-450); RBC 3.09 m/uL (3.80-5.40); RDW 13.5 % (11.5-15.5); WBC 7.8 k/uL (3.8-10.6)
[2021-07-22 07:30] LABS: Calcium 9.5 mg/dL (8.4-10.2); Potassium 4.1 mmol/L (3.5-5.1)
[2021-07-22 09:04] LABS: Glucose,Whole Blood 84 mg/dL (75-99)
[2021-07-22] MEDS: SODIUM CHLORIDE 0.9% 1,000 ML IV SCH ×2 (09:18→18:28)
[2021-07-22] MEDS ORDERED: LIDOCAINE 1% INJ 10MG/ML (20 ML MDV) ONE (10:12)
[2021-07-22] MEDS ORDERED: HEPARIN SODIUM,PORCINE 30 ML 30 ML ONE (10:12)
[2021-07-22] MEDS ORDERED: fentaNYL (PF) 50 MCG/ML 2 ML AMP ONE (10:30)
[2021-07-22] MEDS ORDERED: LIDOCAINE 1% INJ 10MG/ML (20 ML MDV) SQ ONE (10:31)
[2021-07-22] MEDS: fentaNYL (PF) 50 MCG/ML 2 ML AMP IV ONE ×2 (10:32→11:20)
[2021-07-22] MEDS ORDERED: MIDAZOLAM 2 MG/2 ML VIAL IV ONE (10:32)
[2021-07-22] MEDS ORDERED: IV FLUID CONTINUATION 1,000 ML IV ONE (10:34)
[2021-07-22] MEDS ORDERED: HEPARIN SODIUM 1,000 UN/ML (10ML VL) ONE (10:56)
[2021-07-22] MEDS ORDERED: IOPAMIDOL-250 100ML BTL INTRAARTER ONE (11:24)
--- NOTE | 2021-07-22 12:25 | P.OP ---
Date of Procedure: 07/22/21 Description of Procedure: Preoperative diagnosis: [[place] 6 left lower extremity wound, dry gangrene fourth and fifth toe, lateral foot, peripheral arterial disease, atrial fibrillation] Postoperative diagnosis: Same Procedure: [#1 ultrasound-guided right common femoral artery access #2 aortogram with CO2 angiography #3 bilateral iliofemoral angiogram with CO2 angiography #4 selective left lower extremity angiogram third order to posterior tibial artery #5 percutaneous transluminal balloon into last the left posterior tibial artery, 2.5 x 40, 3 x 40 chocolate balloon Moderate conscious sedation time 64 minutes ] Surgeon: Jenniffer Don D.O. EBL: [Less than 5 mL] IV fluids: [See records] Urine output: [Not measured] Drains: [None] Complications: [None immediately apparent] Condition: [Stable to recovery] Operative indication and findings: [The patient is an 81-year-old female who has a history of peripheral arterial disease and diabetes with history of lower extremity wounds. She had wounds on the right lower extremities and subsequent they have been able to heal, she recently having worsening of her left lower extremity wounds. She has gangrene of her fourth and fifth toe and the lateral portion of her foot. She has abnormalities of her ABIs and was recommnded to undergo imaging a catheter directed angiogram. Given her renal dysfunction and was decided she would best benefit from a CO2 angiogram. Her contrast threshold is approximate 80 mL based on her labs. Risks and benefits were discussed with the patient and her family who seemingly understood and were willing to proceed as such ] Procedure in detail: [Patient was taken to the Set Rider placed in supine position. Bilateral groins are prepped and draped in usual sterile fashion. A preprocedure timeout was performed, all parties are in agreement. The ultrasound was utilized in the right common femoral artery was identified. The skin overlying was anesthetized 1% lidocaine plain. Using a multipurpose needle the artery was accessed. Guidewires and catheters were used access the aorta. CO2 angiogram was performed of this area. The catheters and brought down to the level of the bifurcation and a repeat CO2 angiogram was performed. A station was then moved one more down to the level of the distal superficial femoral arteries and a repeat CO2 angiogram was performed. Throughout the majority of these locations there did not appear to be significant flow limiting disease. There was medial calcinosis throughout with calcified vessels and no significant stenosis. At that point in order to properly visualize the tibial vessels, the left lower extremity was accessed directly using a rim catheter. The catheter was then placed into the superficial femoral artery and repeat angiogram was performed with contrast. This was significantly diluted. This angiogram showed relatively normal-appearing popliteal artery. The anterior tibial appeared patent throughout its course although slightly diminutive at the level of the ankle. The tibial peroneal trunk is widely patent without significant disease. The peroneal artery is diminutive with areas of revision but does reach to the mid calf. The posterior tibial artery shortly after it's takeoff has approximately a 15-20 mm occlusion with reconstitution. Given these findings was decided to go forward with intervention. The sheath was removed and exchanged for a long 6-Spanish sheath was placed in the superficial femoral artery. Guidewires and catheters were used to cross the lesion and using a crossing catheter a an angiogram of the distal posterior tibial artery was performed revealing luminal gain. A 2.5 x 40 followed by 3 x 40 balloon angioplasty was performed with significant improvement. There was brisk flow through the posterior tibial artery. Upon conclusion no significant improvement of the signal at the ankle the posterior tibial artery as well as improvement to the anterior tibial artery with this. The posterior tibial at the ankle again appears patent with flow through the bottom of the foot and medial toes. There is not full completion of the plantar arch however the vessel is diminutive through this course of the dorsalis pedis. That point was decided catheters and wires were removed. The sheath was removed and pressure was held until hemostasis was adequate. The patient only flat for 6 hours. The plan will be to discuss with the patient regarding going forward with her fourth and fifth toe amputation and ongoing wound care versus no amputation. This is all discussed with the daughter who seem understands. This time there is no evidence of acute infection therefore there is no urgency to this decision. This all be discussed in detail with the patient tomorrow.]
--- NOTE | 2021-07-22 12:34 | IR ---
Fluoroscopy HISTORY: Pain in left foot 8.4 minutes fluoroscopy time supplied to the referring clinician. 520 intraoperative C-arm images do cument the procedure. See dictated report from vascular surgery.
[2021-07-22] MEDS ORDERED: NALOXONE 0.4 MG/ML 1 ML VIAL IVP PRN (12:37)
[2021-07-22] MEDS: hydrALAZINE HCL 25 MG TAB PO SCH ×3 (13:52→20:34)
[2021-07-22] MEDS: FUROSEMIDE 20 MG TAB PO SCH (13:52)
[2021-07-22] MEDS: amLODIPine 5 MG TAB PO SCH (13:52)
[2021-07-22] MEDS: ACETAMINOPHEN TAB 325 MG TAB PO PRN (13:52)
--- NOTE | 2021-07-22 15:31 | P.PN ---
Subjective Progress Note Date: 07/22/21 Principal diagnosis: Right lower abdominal wall wound and left foot gangrene Patient is 81-year-old female presented to hospital with mental status changes concerning for a CVA in this patient also have right lower abdominal wall wound after resection of the infected hematoma, patient also noticed to have a gangrenous changes to the left fifth toe. The patient is status post left lower extremity angioplasty accompanied by vascular surgery on 07/22/2021 On today's evaluation that is 07/22/2021, the patient remains to be afebrile the patient is feeling slightly better, the patient is breathing comfortably no chest pain shortness of breath or cough no abdominal pain, has been complaining of some pain to the left foot but no worsening Objective - Vital Signs Vital signs: Vital Signs Temp 98.0 F 07/22/21 08:00 Pulse 77 07/22/21 08:00 Resp 17 07/22/21 08:00 BP 164/75 07/22/21 08:00 Pulse Ox 100 07/22/21 08:00 Intake & Output 07/21/21 07/22/21 07/22/21 18:59 06:59 18:59 Intake Total 240 1585 200 Balance 240 1585 200 Weight 70.76 kg Intake: IV 200 Intake, IV Titration 1100 Amount Ampicillin-Sulbactam 3 gm 100 In Sodium Chloride 0.9% 100 ml @ 200 mls/hr IVPB Q8HR [facility] Rx#:[id number] Sodium Chloride 0.9% 1, 1000 000 ml @ 100 mls/hr IV . Q10H [facility] Rx#:[id number] Oral 240 485 Other: Voiding Method Bedside Commode Toilet Diaper Incontinent # Voids 2 2 2 - Exam GENERAL DESCRIPTION: An elderly female lying in bed in no distress RESPIRATORY SYSTEM: Unlabored breathing , decreased breath sounds at bases HEART: S1 S2 regular rate and rhythm , ABDOMEN: Soft , no tenderness EXTREMITIES: Left foot lateral border along with left fifth toe gangrene minimal swelling and drainage - Labs CBC & Chem 7: 07/22/21 06:41 07/22/21 06:41 Labs: Abnormal Lab Results - Last 24 Hours (Table) 07/21/21 07/21/21 07/21/21 Range/Units 13:12 16:37 20:12 RBC (3.80-5.40) m/uL Hgb (11.4-16.0) gm/dL Hct (34.0-46.0) % Sodium 134 L (137-145) mmol/L BUN 41 H (7-17) mg/dL Creatinine 1.62 H (0.52-1.04) mg/dL Glucose 152 H (74-99) mg/dL POC Glucose (mg/dL) 140 H 191 H (75-99) mg/dL Calcium 10.3 H (8.4-10.2) mg/dL 07/22/21 07/22/21 Range/Units 06:41 06:41 RBC 3.09 L (3.80-5.40) m/uL Hgb 9.5 L (11.4-16.0) gm/dL Hct 29.0 L (34.0-46.0) % Sodium 133 L (137-145) mmol/L BUN 49 H (7-17) mg/dL Creatinine 1.68 H (0.52-1.04) mg/dL Glucose (74-99) mg/dL POC Glucose (mg/dL) (75-99) mg/dL Calcium (8.4-10.2) mg/dL Assessment and Plan (1) Open abdominal wall wound Current Visit: Yes Status: Acute Code(s): S31.109A - UNSP OPN WND ABD WALL, UNSP Q W/O PENET PERIT CAV, INIT SNOMED Code(s): 845906548 (2) Gangrene of toe of left foot Current Visit: Yes Status: Acute Code(s): I96 - GANGRENE, NOT ELSEWHERE CLASSIFIED SNOMED Code(s): 77839943912671021 Plan: 1patient with right lower abdominal wall wound status post surgical drainage of an infected hematoma overall wound base looks clean and will continue with local wound care with a wound VAC to be changed Sunday and Sunday. 2Patient with right foot/ankle area wound with no cellulitis local wound care with a dry Aquacel dressing. 3patient with left foot lateral border gangrene also involving the left fifth toe as well as the fourth toe , x-ray didn't show any bony, patient is status post angioplasty to the left lower extremity for vascular surgery, patient to continue with the Unasyn family at the bedside and multiple questions were answered Time with Patient: Less than 30
[2021-07-22] MEDS: DOCUSATE 100 MG CAP PO SCH (16:22)
[2021-07-22 16:30] LABS: Glucose,Whole Blood 105 mg/dL (75-99)
[2021-07-22] MEDS: ATORVASTATIN 20 MG TAB PO SCH (17:08)
[2021-07-22] MEDS: CYANOCOBALAMIN 500 MCG TAB PO SCH (17:08)
--- NOTE | 2021-07-22 17:44 | P.PN ---
Subjective Progress Note Date: 07/22/21 Patient is seen at bedside and feels she is doing well from neurological stand point. She is accompanied by her son and [id number]. I spoke with Dr. Don and she wants Plavix added for her Peripheral arterial disease. Objective - Vital Signs Vital signs: Vital Signs Temp 98.0 F 07/22/21 08:00 Pulse 77 07/22/21 14:22 Resp 17 07/22/21 16:22 BP 147/78 07/22/21 16:22 Pulse Ox 98 07/22/21 16:22 Intake & Output 07/21/21 07/22/21 07/22/21 18:59 06:59 18:59 Intake Total 240 1585 200 Balance 240 1585 200 Weight 70.76 kg Intake: IV 200 Intake, IV Titration 1100 Amount Ampicillin-Sulbactam 3 gm 100 In Sodium Chloride 0.9% 100 ml @ 200 mls/hr IVPB Q8HR [facility] Rx#:[id number] Sodium Chloride 0.9% 1, 1000 000 ml @ 100 mls/hr IV . Q10H [facility] Rx#:[id number] Oral 240 485 Other: Voiding Method Bedside Commode Toilet Toilet Diaper Diaper Incontinent Incontinent # Voids 2 2 2 - Exam GENERAL: The patient is lying in bed and is not in acute distress. INTEGUMENTARY: Blackish discoloration to left fifth digit. NEUROLOGICAL: Higher mental function: The patient is awake, alert, oriented to self, place and time. Patient is following simple commands. No aphasia and no neglect. Cranial nerves: The pupils are round, equal and reactive to light and accommodation. Visual natarajan are full to confrontation throughout. Extraocular movement is intact no nystagmus is noted. Facial sensation is normal to touch throughout. The facial strength is normal throughout. Hearing is mildly to moderately decreased bilaterally to hand rub. Tongue is midline and moved s lottie-to-side without any difficulty. No dysarthria is noted. Shoulder shrug is normal bilaterally. Motor: Gait is able to use walker and taking small steps. The strength is able to raise throughout upper and 5/5 over bilateral proximal but distal could not assess bilaterally because of pain. She is moving the left lower extremity better than right lower but today the strength on the right is better compared to yesterday but slightly mildly weak and is able to lift above gravity. Normal tone and bulk. Cerebellum: Normal finger to nose taylor bilaterally. Sensation: Sensation is normal to touch throughout. Reflexes (right/left): 2+ throughout except ankles are 1+ bilaterally. Plantars are mute bilaterally. WORK-UP: Lipid panel is a triglyceride of 86, cholesterol 118, HDL of 47 and LDL of 53. Vitamin B12 is at thousand 45, folate is 6.90. TSH is 0.397 [address] is 9.2 CT of the head is reported as cerebral atrophy and mild chronic small vessel ischemia. No acute cranial abnormality. I personally reviewed the CT of the head there is no acute or subacute ischemia and there is no at the proximal hemorrhage. MRI of the brain is reported as subacute infarct in left occipital lobe. Age related changes of atrophy and chronic small vessel ischemia. Sinus disease. I personally reviewed MRI and I agree the patient does have the subacute changes over the left occipital with is the small in size. Carotid duplex is reported as atheromatous plaquing and internal thickening without significant flow limiting stenosis. EKG is reported as age are fibrillation was low ventricular response with aberrant conduction or ventricular premature accomplishes. Right bundle branch block. Left anterior fascicular block. Voltage criteria for left ventricle hypertrophy. Possible septal myocardial infarction, probable old. Routine EEG on 07/18/2021 is normal. There is no focal slowing, epileptiform discharges or seizure on EEG. - Labs CBC & Chem 7: 07/22/21 06:41 07/22/21 06:41 Labs: Abnormal Lab Results - Last 24 Hours (Table) 07/21/21 07/22/21 07/22/21 Range/Units 20:12 06:41 06:41 RBC 3.09 L (3.80-5.40) m/uL Hgb 9.5 L (11.4-16.0) gm/dL Hct 29.0 L (34.0-46.0) % Sodium 133 L (137-145) mmol/L BUN 49 H (7-17) mg/dL Creatinine 1.68 H (0.52-1.04) mg/dL POC Glucose (mg/dL) 191 H (75-99) mg/dL 07/22/21 Range/Units 16:27 RBC (3.80-5.40) m/uL Hgb (11.4-16.0) gm/dL Hct (34.0-46.0) % Sodium (137-145) mmol/L BUN (7-17) mg/dL Creatinine (0.52-1.04) mg/dL POC Glucose (mg/dL) 105 H (75-99) mg/dL Assessment and Plan Assessment: Subacute Ischemic stroke over left occipital region (small in size). No IV tpa since outside window and risk outweigh the benefit. (on examination Right leg weakness and transient confusion. initially ?left facial weakness per ED but per daughter no facial weakness was noted). Seems embolic in nature especially with history of A-fib. Patient has increased risk for small vessel disease because of her risk factors. Diabetes type 2 (uncontrolled HbA1c 9.2) Gangrene to fifth digit of left foot Uncontrolled hypertension Atrial fibrillation on Xarelto Recent history of abdominal wall cellulitis with wound infection Recent COVID-19 infection and end of May 2021 Bilateral feet ulceration Plan: Recommend restarting home Xarelto 15mg daily once stable by vascular surgery team. She is started on Plavix 75mg daily because of her peripheral vascular disease. I notified the family members there is an increased risk of bleed with anticoagulation as well as antiplatelet but it was felt that Plavix is needed because of peripheral vascular disease and they're aware of that and agree with pursuing with plan. Patient cannot have ASA since allergic to ASA. O Continue lipitor 20mg daily for secondary stroke prophylaxis. Continue neuro checks Patient is on cardiac monitoring: A-fib PT, OT and EDUCATIONAL CONSULTANT are consulted. Vascular surgery team is on board We'll defer the rest of the medical management to the primary team. Upon discharge the patient needs to follow-up with a neurologist as an outpatient within 1-2 weeks. Anticoagulation as hold for DVT prophylaxis recommend SCDs. The plan is discussed with the patient, her family members (son and [id number]), nurse and Dr. Don (vascular surgeon). There is no further neurological work-up. Please reconsult neurology if needed. Ken Bertrand M.D. Neuro-hospital Time with Patient: Less than 30
[2021-07-22 20:12] LABS: Glucose,Whole Blood 219 mg/dL (75-99)
[2021-07-22] MEDS: INSULIN DETEMIR (LEVEMIR) 100 UNIT/ML SYR SQ SCH (20:34)
[2021-07-23] MEDS: INSULIN ASPART (NovoLOG) 100 UNIT/ML VIAL SQ SCH ×7 (06:23→20:29)
[2021-07-23 06:28] LABS: Glucose,Whole Blood 79 mg/dL (75-99)
[2021-07-23] MEDS: AMPICILLIN-SULBACTAM 3 GM in SODIUM CHLORIDE 0.9% 100 ML IVPB SCH ×2 (09:38→20:28)
[2021-07-23] MEDS: amLODIPine 5 MG TAB PO SCH (09:39)
[2021-07-23] MEDS: FUROSEMIDE 20 MG TAB PO SCH (09:39)
[2021-07-23] MEDS: hydrALAZINE HCL 25 MG TAB PO SCH ×3 (09:39→20:28)
[2021-07-23] MEDS: CLOPIDOGREL 75 MG TAB PO SCH (09:39)
[2021-07-23] MEDS: ATORVASTATIN 20 MG TAB PO SCH (09:39)
[2021-07-23] MEDS: DOCUSATE 100 MG CAP PO SCH (09:39)
[2021-07-23] MEDS: CYANOCOBALAMIN 500 MCG TAB PO SCH (09:39)
[2021-07-23] MEDS: SODIUM CHLORIDE 0.9% 1,000 ML IV SCH ×3 (09:40→21:06)
--- NOTE | 2021-07-23 10:00 | P.PN ---
Subjective Progress Note Date: 07/22/21 Principal diagnosis: Subacute CVA with right lower extremity weakness Right lower abdominal wall wound and left foot gangrene LLE wound, dry gangrene fourth and fifth toe, lateral foot, peripheral arterial disease S/P aortogram with CO2 angiography; bilateral iliofemoral angiogram with CO2 angiography; selective left lower extremity angiogram third order to posterior tibial artery S/P percutaneous transluminal balloon plasty left posterior tibial artery 81-year-old female, history of PAF on anticoagulation with Xarelto, hypertension, diabetes type 2 insulin-dependent presented to ER with confusion, generalized weakness and talking incoherently and unable to recognize her family members. Symptoms started around 2:11 PM. EMS was called and patient was brought to the hospital as a stroke code. Patient was seen by stroke network and was not a candidate for TPA. 07/22/2021 Patient is seen and evaluated with family members at bedside; patient opens eyes to verbal stimulation; status post vascular surgery evaluation with angioplasty Vital signs reviewed reveal temperature of 98, pulse 77, respirations 17 and blood pressure 164/75 --- left sided gangrenous toes; X is negative for any bony involvement; vascular surgery evaluation and intervention reviewed and appreciated. Continue wound care with right heel stage II ulcer; antibiotics in the form of Unasyn. ID is following. Wound care is following for her recent abdominal wound; with wound VAC to be changed Sunday and Sunday per ID recommendations. Objective - Vital Signs Vital signs: Vital Signs Temp 98.0 F 07/22/21 08:00 Pulse 77 07/22/21 08:00 Resp 17 07/22/21 08:00 BP 164/75 07/22/21 08:00 Pulse Ox 100 07/22/21 08:00 Intake & Output 07/21/21 07/22/21 07/22/21 18:59 06:59 18:59 Intake Total 240 1585 Balance 240 1585 Weight 70.76 kg Intake: Intake, IV Titration 1100 Amount Ampicillin-Sulbactam 3 gm 100 In Sodium Chloride 0.9% 100 ml @ 200 mls/hr IVPB Q8HR [facility] Rx#:[id number] Sodium Chloride 0.9% 1, 1000 000 ml @ 100 mls/hr IV . Q10H [facility] Rx#:[id number] Oral 240 485 Other: Voiding Method Bedside Commode Toilet Diaper Incontinent # Voids 2 2 2 - Exam Patient is lying in the bed comfortably, no acute distress HEENT: Normocephalic. Neck is supple. Pupils reactive. Nostrils clear. Oral cavity is moist. Neck reveals no JVD, carotid bruits, or thyromegaly. CHEST EXAMINATION: Trachea is central. Symmetrical expansion. Lung natarajan clear to auscultation and percussion. CARDIAC: Normal S1, S2 with no gallops. No murmurs ABDOMEN: Soft. Bowel sounds normal. No organomegaly. No abdominal bruits. Abdominal wound with wound VAC in place. Extremities: reveal no edema. No clubbing or cyanosis. Left fifth toe gangrenous and discolored. Neurologically awake, alert, oriented x3 with well-coordinated movements. Right lower extremity weakness. - Labs CBC & Chem 7: 07/22/21 06:41 07/22/21 06:41 Labs: Abnormal Lab Results - Last 24 Hours (Table) 07/21/21 07/21/21 07/21/21 Range/Units 11:34 13:12 16:37 RBC (3.80-5.40) m/uL Hgb (11.4-16.0) gm/dL Hct (34.0-46.0) % Sodium 134 L (137-145) mmol/L BUN 41 H (7-17) mg/dL Creatinine 1.62 H (0.52-1.04) mg/dL Glucose 152 H (74-99) mg/dL POC Glucose (mg/dL) 134 H 140 H (75-99) mg/dL Calcium 10.3 H (8.4-10.2) mg/dL 07/21/21 07/22/21 07/22/21 Range/Units 20:12 06:41 06:41 RBC 3.09 L (3.80-5.40) m/uL Hgb 9.5 L (11.4-16.0) gm/dL Hct 29.0 L (34.0-46.0) % Sodium 133 L (137-145) mmol/L BUN 49 H (7-17) mg/dL Creatinine 1.68 H (0.52-1.04) mg/dL Glucose (74-99) mg/dL POC Glucose (mg/dL) 191 H (75-99) mg/dL Calcium (8.4-10.2) mg/dL Assessment and Plan Assessment: Right lower extremity weakness and confusion. MRI showed Subacute CVA involving the occipital lobe.. Altered mental status and confusion with questionable left facial weakness. Improved now. Acute kidney injury likely prerenal. Possible underlying CK D stage III. Uncontrolled hypertension Recent history of abdominal wall cellulitis with wound infection.Continue with wound VAC. Recent COVID-19 infection in end of May 2021 Chronic atrial fibrillation on anticoagulation with Xarelto Uncontrolled with A1c 9.2 Diabetes type 2 insulin-dependent Hypertension Left lateral malleolus ulceration and gangrenous toes. Continue with wound care. Seen by vascular surgery during recent admission. DVT prophylaxis patient is already on full anticoagulation. Plan: Patient was admitted as a stroke code. Was not a TPA candidate as per stroke network team. Patient was started back on home blood pressure medications and monitor closely. added norvasc 5mg daily CT head showed no acute process. MRI of the brain showed subacute occipital CVA. Patient was initially started on Plavix and currently started back on Xarelto. Patient has recent history of infection of the abdominal wall and wound VAC and left lateral malleolus ulceration and gangrenous toes. Continued wound care. Continue to follow closely. Discussed with her daughter at bedside in detail. PTOT is on board. Wound care is following. Vascular surgery evaluation has indicated above. Possible discharge to home with home PT.
[2021-07-23 11:23] LABS: Glucose,Whole Blood 255 mg/dL (75-99)
--- NOTE | 2021-07-23 16:09 | P.PN ---
Subjective Progress Note Date: 07/23/21 Principal diagnosis: Subacute CVA with right lower extremity weakness Right lower abdominal wall wound and left foot gangrene LLE wound, dry gangrene fourth and fifth toe, lateral foot, peripheral arterial disease S/P aortogram with CO2 angiography; bilateral iliofemoral angiogram with CO2 angiography; selective left lower extremity angiogram third order to posterior tibial artery S/P percutaneous transluminal balloon plasty left posterior tibial artery 81-year-old female, history of PAF on anticoagulation with Xarelto, hypertension, diabetes type 2 insulin-dependent presented to ER with confusion, generalized weakness and talking incoherently and unable to recognize her family members. Symptoms started around 2:11 PM. EMS was called and patient was brought to the hospital as a stroke code. Patient was seen by stroke network and was not a candidate for TPA. 07/22/2021 Patient is seen and evaluated with family members at bedside; patient opens eyes to verbal stimulation; status post vascular surgery evaluation with angioplasty Vital signs reviewed reveal temperature of 98, pulse 77, respirations 17 and blood pressure 164/75 --- left sided gangrenous toes; X is negative for any bony involvement; vascular surgery evaluation and intervention reviewed and appreciated. Continue wound care with right heel stage II ulcer; antibiotics in the form of Unasyn. ID is following. Wound care is following for her recent abdominal wound; with wound VAC to be changed Sunday and Sunday per ID recommendations. 07/23/2021 Patient is seen and evaluated with multiple family members at bedside; patient family has multiple questions which are all answered to best of possibility; family requesting ID to evaluate her wound VAC this afternoon Patient has been placed on Plavix for peripheral arterial disease post angioplasty; will remain on Xarelto at home dose; increased risk of bleeding discussed with family and patient understand and is agreeable to proceed Neurology for following for acute versus subacute CVA; CT of the head is reported as cerebral atrophy and mild chronic small vessel ischemia. No acute cranial abnormality. MRI of the brain is reported as subacute infarct in left occipital lobe. Age related changes of atrophy and chronic small vessel ischemia. Carotid duplex is reported as atheromatous plaquing and internal thickening without significant flow limiting stenosis. EKG is reported as age are fibrillation was low ventricular response with aberrant conduction or ventricular premature accomplishes. Right bundle branch block. Left anterior fascicular block. Voltage criteria for left ventricle hypertrophy. Possible septal myocardial infarction, probable old. Routine EEG on 07/18/2021 is normal. There is no focal slowing, epileptiform discharges or seizure on EEG. Objective - Vital Signs Vital signs: Vital Signs Temp 98.1 F 07/22/21 20:00 Pulse 78 07/23/21 04:00 Resp 20 07/23/21 04:00 BP 142/69 07/23/21 04:00 Pulse Ox 100 07/23/21 04:00 Intake & Output 07/22/21 07/23/21 07/23/21 18:59 06:59 18:59 Intake Total 440 485 360 Balance 440 485 360 Intake: IV 200 Oral 240 485 360 Other: Voiding Method Toilet Toilet Diaper Diaper Incontinent Incontinent # Voids 4 1 # Bowel Movements 1 - Exam Patient is lying in the bed comfortably, no acute distress HEENT: Normocephalic. Neck is supple. Pupils reactive. Nostrils clear. Oral cavity is moist. Neck reveals no JVD, carotid bruits, or thyromegaly. CHEST EXAMINATION: Trachea is central. Symmetrical expansion. Lung natarajan clear to auscultation and percussion. CARDIAC: Normal S1, S2 with no gallops. No murmurs ABDOMEN: Soft. Bowel sounds normal. No organomegaly. No abdominal bruits. Abdominal wound with wound VAC in place. Extremities: reveal no edema. No clubbing or cyanosis. Left fifth toe gangrenous and discolored. Neurologically awake, alert, oriented x3 with well-coordinated movements. Right lower extremity weakness. - Labs CBC & Chem 7: 07/22/21 06:41 07/22/21 06:41 Labs: Abnormal Lab Results - Last 24 Hours (Table) 07/22/21 07/22/21 07/23/21 Range/Units 16:27 19:53 11:20 POC Glucose (mg/dL) 105 H 219 H 255 H (75-99) mg/dL Assessment and Plan Assessment: Right lower extremity weakness and confusion. MRI showed Subacute CVA involving the occipital lobe.. Altered mental status and confusion with questionable left facial weakness. Improved now. Acute kidney injury likely prerenal. Possible underlying CK D stage III. Uncontrolled hypertension Recent history of abdominal wall cellulitis with wound infection.Continue with wound VAC. Recent COVID-19 infection in end of May 2021 Chronic atrial fibrillation on anticoagulation with Xarelto Uncontrolled with A1c 9.2 Diabetes type 2 insulin-dependent Hypertension Left lateral malleolus ulceration and gangrenous toes. Continue with wound care. Seen by vascular surgery during recent admission. DVT prophylaxis patient is already on full anticoagulation. Plan: Patient was admitted as a stroke code. Was not a TPA candidate as per stroke network team. Patient was started back on home blood pressure medications and monitor closely. added norvasc 5mg daily CT head showed no acute process. MRI of the brain showed subacute occipital CVA. Patient was initially started on Plavix and currently started back on Xarelto. Patient has recent history of infection of the abdominal wall and wound VAC and left lateral malleolus ulceration and gangrenous toes. Continued wound care. Continue to follow closely. Discussed with her daughter at bedside in detail. PTOT is on board. Wound care is following. Vascular surgery evaluation has indicated above. Possible discharge to home with home PT.
[2021-07-23 16:14] LABS: Glucose,Whole Blood 159 mg/dL (75-99)
[2021-07-23 20:20] LABS: Glucose,Whole Blood 213 mg/dL (75-99)
[2021-07-23] MEDS: INSULIN DETEMIR (LEVEMIR) 100 UNIT/ML SYR SQ SCH (20:28)
[2021-07-24] MEDS: INSULIN ASPART (NovoLOG) 100 UNIT/ML VIAL SQ SCH ×7 (05:25→20:50)
[2021-07-24 05:41] LABS: Glucose,Whole Blood 65 mg/dL (75-99)
[2021-07-24 05:52] LABS: Glucose,Whole Blood 91 mg/dL (75-99)
[2021-07-24 09:23] LABS: Basophils % (A) 0 %; Eosinophils # (A) 0.5 k/uL (0-0.7); Eosinophils % (A) 6 %; HCT 25.6 % (34.0-46.0); HGB 8.3 gm/dL (11.4-16.0); Lymphocytes # (A) 1.2 k/uL (1.0-4.8); Lymphocytes % (A) 15 %; MCH 30.3 pg (25.0-35.0); MCHC 32.5 g/dL (31.0-37.0); MCV 93.2 fL (80.0-100.0); Mean Platelet Volume 7.7; Monocytes # (A) 0.5 k/uL (0-1.0); Monocytes % (A) 7 %; Neutrophils # (A) 5.7 k/uL (1.3-7.7); Neutrophils % (A) 70 %; Platelet Count 306 k/uL (150-450); RBC 2.74 m/uL (3.80-5.40); RDW 13.9 % (11.5-15.5); WBC 8.2 k/uL (3.8-10.6)
[2021-07-24] MEDS: ATORVASTATIN 20 MG TAB PO SCH (09:27)
[2021-07-24] MEDS: CLOPIDOGREL 75 MG TAB PO SCH (09:27)
[2021-07-24] MEDS: hydrALAZINE HCL 25 MG TAB PO SCH ×3 (09:27→20:50)
[2021-07-24] MEDS: DOCUSATE 100 MG CAP PO SCH (09:27)
[2021-07-24] MEDS: FUROSEMIDE 20 MG TAB PO SCH (09:27)
[2021-07-24] MEDS: amLODIPine 5 MG TAB PO SCH (09:27)
[2021-07-24] MEDS: AMPICILLIN-SULBACTAM 3 GM in SODIUM CHLORIDE 0.9% 100 ML IVPB SCH ×2 (09:27→17:02)
[2021-07-24] MEDS: CYANOCOBALAMIN 500 MCG TAB PO SCH (09:27)
[2021-07-24] MEDS: SODIUM CHLORIDE 0.9% 1,000 ML IV SCH ×2 (09:28→17:03)
[2021-07-24 09:33] LABS: Calcium 9.6 mg/dL (8.4-10.2); Potassium 4.2 mmol/L (3.5-5.1)
[2021-07-24 11:32] LABS: Glucose,Whole Blood 215 mg/dL (75-99)
--- NOTE | 2021-07-24 13:04 | P.PN ---
Subjective Progress Note Date: 07/31/21 Patient seen and examined. No complaints. Getting up to the bathroom without issue Objective - Vital Signs Vital signs: Vital Signs Temp 98.3 F 07/24/21 11:23 Pulse 54 L 07/24/21 11:23 Resp 17 07/24/21 11:23 BP 155/66 07/24/21 11:23 Pulse Ox 100 07/24/21 11:23 Intake & Output 07/23/21 07/24/21 07/24/21 18:59 06:59 18:59 Intake Total 620 585 160 Balance 620 585 160 Intake: Intake, IV Titration 100 Amount Ampicillin-Sulbactam 3 gm 100 In Sodium Chloride 0.9% 100 ml @ 200 mls/hr IVPB Q12HR [facility] Rx#:[id number] Oral 620 485 160 Other: Voiding Method Toilet Toilet Diaper Diaper Incontinent Incontinent # Voids 3 3 1 - Exam Gen. is a pleasant cooperative female in no acute distress. Heart appears regular at this time. Lungs are clear bilaterally. Abdomen is soft. Access site is clean and dry. Bilateral lower extremities no clubbing, edema. Continued cyanotic changes to her left fourth and fifth toes.. - Labs CBC & Chem 7: 07/24/21 08:36 07/24/21 08:36 Labs: Abnormal Lab Results - Last 24 Hours (Table) 07/23/21 07/23/21 07/24/21 Range/Units 16:13 20:11 05:24 RBC (3.80-5.40) m/uL Hgb (11.4-16.0) gm/dL Hct (34.0-46.0) % Sodium (137-145) mmol/L BUN (7-17) mg/dL Creatinine (0.52-1.04) mg/dL Glucose (74-99) mg/dL POC Glucose (mg/dL) 159 H 213 H 65 L (75-99) mg/dL 07/24/21 07/24/21 07/24/21 Range/Units 08:36 08:36 11:30 RBC 2.74 L (3.80-5.40) m/uL Hgb 8.3 L (11.4-16.0) gm/dL Hct 25.6 L (34.0-46.0) % Sodium 131 L (137-145) mmol/L BUN 53 H (7-17) mg/dL Creatinine 1.49 H (0.52-1.04) mg/dL Glucose 168 H (74-99) mg/dL POC Glucose (mg/dL) 215 H (75-99) mg/dL Assessment and Plan Assessment: Judi 5 left lower extremity peripheral arterial disease Diabetes Left fourth and fifth toe gangrene Plan: Long discussion had with the patient and the daughter at the bedside. She continues to not want any sort of amputation at this time. We'll plan to see her as an outpatient and follow-up to evaluate for ongoing knee. She is not sure if in the future she may change her mind should she need an amputation. She is told think about this and discuss as a outpatient visit. She is to continue with infectious disease and wound care for her right lower abdominal wound
[2021-07-24 16:30] LABS: Glucose,Whole Blood 173 mg/dL (75-99)
[2021-07-24 19:33] LABS: Glucose,Whole Blood 142 mg/dL (75-99)
[2021-07-24] MEDS: INSULIN DETEMIR (LEVEMIR) 100 UNIT/ML SYR SQ SCH (20:50)
--- NOTE | 2021-07-24 23:44 | P.PN ---
Subjective Progress Note Date: 07/23/21 Principal diagnosis: Right lower abdominal wall wound and left foot gangrene Patient is 81-year-old female presented to hospital with mental status changes concerning for a CVA in this patient also have right lower abdominal wall wound after resection of the infected hematoma, patient also noticed to have a gangrenous changes to the left fifth toe. The patient is status post left lower extremity angioplasty accompanied by vascular surgery on 07/22/2021 On today's evaluation that is 07/23/2021, the patient continues to be afebrile the patient is breathing comfortably no chest pain shortness of breath or cough no abdominal pain, the patient denies pain to her foot area Objective - Vital Signs Vital signs: Vital Signs Temp 98.3 F 07/23/21 09:30 Pulse 76 07/23/21 09:30 Resp 16 07/23/21 09:30 BP 151/51 07/23/21 09:30 Pulse Ox 100 07/23/21 09:30 Intake & Output 07/22/21 07/23/21 07/23/21 18:59 06:59 18:59 Intake Total 440 485 620 Balance 440 485 620 Intake: IV 200 Oral 240 485 620 Other: Voiding Method Toilet Toilet Toilet Diaper Diaper Diaper Incontinent Incontinent Incontinent # Voids 4 1 3 # Bowel Movements 1 - Exam GENERAL DESCRIPTION: An elderly female lying in bed in no distress RESPIRATORY SYSTEM: Unlabored breathing , decreased breath sounds at bases HEART: S1 S2 regular rate and rhythm , ABDOMEN: Soft , no tenderness EXTREMITIES: Left foot lateral border along with left fifth toe gangrene minimal swelling and drainage - Labs CBC & Chem 7: 07/24/21 08:36 07/24/21 08:36 Labs: Abnormal Lab Results - Last 24 Hours (Table) 07/22/21 07/22/21 07/23/21 Range/Units 16:27 19:53 11:20 POC Glucose (mg/dL) 105 H 219 H 255 H (75-99) mg/dL Assessment and Plan (1) Open abdominal wall wound Current Visit: Yes Status: Acute Code(s): S31.109A - UNSP OPN WND ABD WALL, UNSP Q W/O PENET PERIT CAV, INIT SNOMED Code(s): 200165012 (2) Gangrene of toe of left foot Current Visit: Yes Status: Acute Code(s): I96 - GANGRENE, NOT ELSEWHERE CLASSIFIED SNOMED Code(s): 92738329022097451 Plan: 1patient with right lower abdominal wall wound status post surgical drainage of an infected hematoma overall wound base looks clean and will continue with local wound care with a wound VAC to be changed Sunday and Sunday. 2Patient with right foot/ankle area wound with no cellulitis local wound care with a dry Aquacel dressing. 3patient with left foot lateral border gangrene also involving the left fifth toe as well as the fourth toe , x-ray didn't show any bony changes, patient is status post angioplasty to the left lower extremity, patient to continue with the Unasyn, waiting for definitive surgical procedure or recommendation from vascular surgery Time with Patient: Less than 30
--- NOTE | 2021-07-24 23:46 | P.PN ---
Subjective Progress Note Date: 07/24/21 Principal diagnosis: Right lower abdominal wall wound and left foot gangrene Patient is 81-year-old female presented to hospital with mental status changes concerning for a CVA in this patient also have right lower abdominal wall wound after resection of the infected hematoma, patient also noticed to have a gangrenous changes to the left fifth toe. The patient is status post left lower extremity angioplasty accompanied by vascular surgery on 07/22/2021 On today's evaluation that is 07/24/2021, the patient denies fever or chills, the patient is breathing comfortably on room air, the patient denies chest pain shortness of breath or cough no abdominal pain, the patient denies pain to her foot area Objective - Vital Signs Vital signs: Vital Signs Temp 98.3 F 07/24/21 11:23 Pulse 54 L 07/24/21 11:23 Resp 17 07/24/21 11:23 BP 155/66 07/24/21 11:23 Pulse Ox 100 07/24/21 11:23 Intake & Output 07/23/21 07/24/21 07/24/21 18:59 06:59 18:59 Intake Total 620 585 400 Balance 620 585 400 Intake: Intake, IV Titration 100 120 Amount Ampicillin-Sulbactam 3 gm 100 In Sodium Chloride 0.9% 100 ml @ 200 mls/hr IVPB Q12HR [facility] Rx#:[id number] Sodium Chloride 0.9% 1, 120 000 ml @ 100 mls/hr IV . Q10H [facility] Rx#:[id number] Oral 620 283 280 Other: Voiding Method Toilet Toilet Toilet Diaper Diaper Diaper Incontinent Incontinent Incontinent # Voids 3 3 2 - Exam GENERAL DESCRIPTION: An elderly female lying in bed in no distress RESPIRATORY SYSTEM: Unlabored breathing , decreased breath sounds at bases HEART: S1 S2 regular rate and rhythm , ABDOMEN: Soft , no tenderness EXTREMITIES: Left foot lateral border along with left fifth toe gangrene minimal swelling no drainage - Labs CBC & Chem 7: 07/24/21 08:36 07/24/21 08:36 Labs: Abnormal Lab Results - Last 24 Hours (Table) 07/23/21 07/23/21 07/24/21 Range/Units 16:13 20:11 05:24 RBC (3.80-5.40) m/uL Hgb (11.4-16.0) gm/dL Hct (34.0-46.0) % Sodium (137-145) mmol/L BUN (7-17) mg/dL Creatinine (0.52-1.04) mg/dL Glucose (74-99) mg/dL POC Glucose (mg/dL) 159 H 213 H 65 L (75-99) mg/dL 07/24/21 07/24/21 07/24/21 Range/Units 08:36 08:36 11:30 RBC 2.74 L (3.80-5.40) m/uL Hgb 8.3 L (11.4-16.0) gm/dL Hct 25.6 L (34.0-46.0) % Sodium 131 L (137-145) mmol/L BUN 53 H (7-17) mg/dL Creatinine 1.49 H (0.52-1.04) mg/dL Glucose 168 H (74-99) mg/dL POC Glucose (mg/dL) 215 H (75-99) mg/dL Assessment and Plan (1) Open abdominal wall wound Current Visit: Yes Status: Acute Code(s): S31.109A - UNSP OPN WND ABD WALL, UNSP Q W/O PENET PERIT CAV, INIT SNOMED Code(s): 084103918 (2) Gangrene of toe of left foot Current Visit: Yes Status: Acute Code(s): I96 - GANGRENE, NOT ELSEWHERE C LASSIFIED SNOMED Code(s): 52032822071957600 Plan: 1patient with right lower abdominal wall wound status post surgical drainage of an infected hematoma overall wound base looks clean and will continue with local wound care with a wound VAC to be changed Sunday and Sunday. 2Patient with right foot/ankle area wound with no cellulitis local wound care with a dry Aquacel dressing. 3patient with left foot lateral border gangrene also involving the left fifth toe as well as the fourth toe , x-ray didn't show any bony changes, patient is status post angioplasty to the left lower extremity, patient to continue with the Unasyn, vascular surgery has recommended amputation and the family is refusing, plan is for short course of oral Augmentin on discharge prescription was sent to the pharmacy and close outpatient follow-up discussed with the admitting team Time with Patient: Less than 30
--- NOTE | 2021-07-24 23:54 | P.PN ---
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 Right lower abdominal wall wound and left foot gangrene LLE wound, dry gangrene fourth and fifth toe, lateral foot, peripheral arterial disease S/P aortogram with CO2 angiography; bilateral iliofemoral angiogram with CO2 angiography; selective left lower extremity angiogram third order to posterior tibial artery S/P percutaneous transluminal balloon plasty left posterior tibial artery 81-year-old female, history of PAF on anticoagulation with Xarelto, hypertension, diabetes type 2 insulin-dependent presented to ER with confusion, generalized weakness and talking incoherently and unable to recognize her family members. Symptoms started around 2:11 PM. EMS was called and patient was brought to the hospital as a stroke code. Patient was seen by stroke network and was not a candidate for TPA. 07/22/2021 Patient is seen and evaluated with family members at bedside; patient opens eyes to verbal stimulation; status post vascular surgery evaluation with angioplasty Vital signs reviewed reveal temperature of 98, pulse 77, respirations 17 and blood pressure 164/75 --- left sided gangrenous toes; X is negative for any bony involvement; vascular surgery evaluation and intervention reviewed and appreciated. Continue wound care with right heel stage II ulcer; antibiotics in the form of Unasyn. ID is following. Wound care is following for her recent abdominal wound; with wound VAC to be changed Sunday and Sunday per ID recommendations. 07/23/2021 Patient is seen and evaluated with multiple family members at bedside; patient family has multiple questions which are all answered to best of possibility; family requesting ID to evaluate her wound VAC this afternoon Patient has been placed on Plavix for peripheral arterial disease post angioplasty; will remain on Xarelto at home dose; increased risk of bleeding discussed with family and patient understand and is agreeable to proceed Neurology for following for acute versus subacute CVA; CT of the head is reported as cerebral atrophy and mild chronic small vessel ischemia. No acute cranial abnormality. MRI of the brain is reported as subacute infarct in left occipital lobe. Age related changes of atrophy and chronic small vessel ischemia. Carotid duplex is reported as atheromatous plaquing and internal thickening without significant flow limiting stenosis. EKG is reported as age are fibrillation was low ventricular response with aberrant conduction or ventricular premature accomplishes. Right bundle branch block. Left anterior fascicular block. Voltage criteria for left ventricle hypertrophy. Possible septal myocardial infarction, probable old. Routine EEG on 07/18/2021 is normal. There is no focal slowing, epileptiform discharges or seizure on EEG. 07/24/2021 Patient is seen and evaluated discussed with nursing staff No specific complaints; vital signs are viewed and remain stable Lab reviews WBC 8.2, Hgb 8.3 AND PLATELETS 3.6, Na 131, BUN/Creatinine 64/1.49 Patient remains on IV antibiotics in form of unasyn. Patient has been re- evaluated by vascular surgery and is recommended amputation due to gangrene of left fourth and fifth toes. Family is refusing amputation at this time. Patient remians on current antibiotics with ID recommending to switch to oral agumentin at discharge. Possible discharge in next 24 hours if remains stable. Objective - Vital Signs Vital signs: Vital Signs Temp 98.3 F 07/24/21 11:23 Pulse 54 L 07/24/21 11:23 Resp 17 07/24/21 11:23 BP 155/66 07/24/21 11:23 Pulse Ox 100 07/24/21 11:23 Intake & Output 07/23/21 07/24/21 07/24/21 18:59 06:59 18:59 Intake Total 620 585 280 Balance 620 585 280 Intake: Intake, IV Titration 100 Amount Ampicillin-Sulbactam 3 gm 100 In Sodium Chloride 0.9% 100 ml @ 200 mls/hr IVPB Q12HR [facility] Rx#:[id number] Oral 620 537 280 Other: Voiding Method Toilet Toilet Diaper Diaper Incontinent Incontinent # Voids 3 3 1 - Exam Patient is lying in the bed comfortably, no acute distress HEENT: Normocephalic. Neck is supple. Pupils reactive. Nostrils clear. Oral cavity is moist. Neck reveals no JVD, carotid bruits, or thyromegaly. CHEST EXAMINATION: Trachea is central. Symmetrical expansion. Lung natarajan clear to auscultation and percussion. CARDIAC: Normal S1, S2 with no gallops. No murmurs ABDOMEN: Soft. Bowel sounds normal. No organomegaly. No abdominal bruits. Abdominal wound with wound VAC in place. Extremities: reveal no edema. No clubbing or cyanosis. Left fifth toe gangrenous and discolored. Neurologically awake, alert, oriented x3 with well-coordinated movements. Right lower extremity weakness. - Labs CBC & Chem 7: 07/24/21 08:36 07/24/21 08:36 Labs: Abnormal Lab Results - Last 24 Hours (Table) 07/23/21 07/23/21 07/24/21 Range/Units 16:13 20:11 05:24 RBC (3.80-5.40) m/uL Hgb (11.4-16.0) gm/dL Hct (34.0-46.0) % Sodium (137-145) mmol/L BUN (7-17) mg/dL Creatinine (0.52-1.04) mg/dL Glucose (74-99) mg/dL POC Glucose (mg/dL) 159 H 213 H 65 L (75-99) mg/dL 07/24/21 07/24/21 07/24/21 Range/Units 08:36 08:36 11:30 RBC 2.74 L (3.80-5.40) m/uL Hgb 8.3 L (11.4-16.0) gm/dL Hct 25.6 L (34.0-46.0) % Sodium 131 L (137-145) mmol/L BUN 53 H (7-17) mg/dL Creatinine 1.49 H (0.52-1.04) mg/dL Glucose 168 H (74-99) mg/dL POC Glucose (mg/dL) 215 H (75-99) mg/dL Assessment and Plan Assessment: Right lower extremity weakness and confusion. MRI showed Subacute CVA involving the occipital lobe.. Altered mental status and confusion with questionable left facial weakness. Improved now. Acute kidney injury likely prerenal. Possible underlying CK D stage III. Uncontrolled hypertension Recent history of abdominal wall cellulitis with wound infection.Continue with wound VAC. Recent COVID-19 infection in end of May 2021 Chronic atrial fibrillation on anticoagulation with Xarelto Uncontrolled with A1c 9.2 Diabetes type 2 insulin-dependent Hypertension Left lateral malleolus ulceration and gangrenous toes. Continue with wound care. Seen by vascular surgery during recent admission. DVT prophylaxis patient is already on full anticoagulation. Plan: Patient was admitted as a stroke code. Was not a TPA candidate as per stroke network team. Patient was started back on home blood pressure medications and monitor closely. added norvasc 5mg daily CT head showed no acute process. MRI of the brain showed subacute occipital CVA. Patient was initially started on Plavix and currently started back on Xarelto. Patient has recent history of infection of the abdominal wall and wound VAC and left lateral malleolus ulceration and gangrenous toes. Continued wound care. Continue to follow closely. Discussed with her daughter at bedside in detail. PTOT is on board. Wound care is following. Vascular surgery evaluation has indicated above. Possible discharge to home with home PT.
[2021-07-25] MEDS: AMPICILLIN-SULBACTAM 3 GM in SODIUM CHLORIDE 0.9% 100 ML IVPB SCH ×3 (00:06→15:28)
[2021-07-25] MEDS: SODIUM CHLORIDE 0.9% 1,000 ML IV SCH ×2 (04:04→11:58)
[2021-07-25 05:26] LABS: Glucose,Whole Blood 120 mg/dL (75-99)
[2021-07-25] MEDS: INSULIN ASPART (NovoLOG) 100 UNIT/ML VIAL SQ SCH ×6 (05:42→15:29)
[2021-07-25 07:33] VITALS: RESP 16; TEMP 98.1
[2021-07-25] MEDS: DOCUSATE 100 MG CAP PO SCH (07:40)
[2021-07-25] MEDS: hydrALAZINE HCL 25 MG TAB PO SCH ×2 (07:41→15:28)
[2021-07-25] MEDS: CYANOCOBALAMIN 500 MCG TAB PO SCH (07:41)
[2021-07-25] MEDS: FUROSEMIDE 20 MG TAB PO SCH (07:41)
[2021-07-25] MEDS: CLOPIDOGREL 75 MG TAB PO SCH (07:41)
[2021-07-25] MEDS: amLODIPine 5 MG TAB PO SCH (07:41)
[2021-07-25] MEDS: ATORVASTATIN 20 MG TAB PO SCH (07:41)
[2021-07-25 12:32] VITALS: BP 162/53; PULSE 60
[2021-07-25] MEDS: ACETAMINOPHEN TAB 325 MG TAB PO PRN (13:49)
--- NOTE | 2021-07-26 02:21 | P.DS ---
Providers Date of admission: 07/17/21 16:27 Attending physician: Oneil De La Torre Consults: 07/17/21 16:27 Consult Physician Urgent Consulting Provider: Ken Bertrand Consult Reason/Comments: cva Do you want consulting provider notified?: Yes 07/20/21 13:55 Consult Physician Urgent Consulting Provider: Jamila Campos Consult Reason/Comments: abdominal and foot wounds, pt. known to service Do you want consulting provider notified?: Yes 07/20/21 16:15 Consult Physician Urgent Consulting Provider: Jenniffer Don Consult Reason/Comments: left foot gangrene Do you want consulting provider notified?: Yes Primary care physician: Megha Garcia Hospital Course: Diagnoses: Right lower extremity weakness and confusion. MRI showed Subacute CVA involving the occipital lobe. Left foot cellulitis and gangrene of the left toe, patient family declined surgical intervention Altered mental status and confusion with questionable left facial weakness. Improved now and patient is back to her baseline Chronic kidney disease, stage III. Creatinine at baseline upon discharge 1.4 hypertension Recent history of abdominal wall cellulitis with wound infection.Continue with wound VAC. Recent COVID-19 infection in end of May 2021 Chronic atrial fibrillation on anticoagulation with Xarelto Uncontrolled with A1c 9.2 Diabetes type 2 insulin-dependent Hypertension Left lateral malleolus ulceration and gangrenous toes. Continue with wound care. Seen by vascular surgery during recent admission. DVT prophylaxis patient is already on full anticoagulation. Hospital course: 81-year-old female, history of PAF on anticoagulation with Xarelto, hypertension, diabetes type 2 insulin-dependent presented to ER with confusion, generalized weakness and talking incoherently and unable to recognize her family members. Patient has been evaluated by neurologist found to have left occipital subacute stroke and she is currently on Plavix on the top of her Xarelto, She has history of A. fib and patient and daughter at bedside confirmed to me that she has Xarelto at home and they agree with Plavix after risks and benefits are explained for them including but not limited to risk of bleeding. On day of discharge patient is back to her basic mental status, confirmed by daughter at bedside. And physical therapy recommended home with home health care. Vascular surgery evaluated the patient for left foot infection and gangrene, family refused amputation or surgical intervention therefore they recommended outpatient follow-up with Dr. amber fang in 1-2 weeks and patient and daughter agree. Also patient will be discharged on Augmentin as per ID team. Patient on the day of discharge she is back to baseline and denies any other symptoms. No headache or weakness or numbness or dizziness. No chest pain or dyspnea. No change in urine or bowel habits. No fever. Patient has been cleared by all consultants including neurologist, infectious disease team at vascular surgery Problems and management plan were discussed with the patient and he verbalized understanding and acceptance Patient was found stable and can be discharged home however he needs follow-up as an outpatient. Patient was instructed to follow up with PCP Dr. Garcia within one week and patient agrees Patient was instructed to follow up with Dr. Don from vascular surgery in 1-2 weeks and they agree. Patient was instructed to follow up with the neurologist Dr. Macdonald or Dr. Jesse Ocampo and Dr.samuel Sow, in 1-2 weeks and patient agrees to call and make appointment. Physical exam -Gen: patient is a AAOx2-3, no distress CVS: S1-S2, RRR, no murmur Lungs: B/L CTA, no wheezing Abdomen: soft, no distention, no tenderness, positive bowel sounds Extremity: no leg edema or induration. Left toe gangrene, stable Time spent more than 35 minutes Plan - Discharge Summary Discharge Rx Participant: No New Discharge Prescriptions: New amLODIPine [Norvasc] 5 mg PO DAILY #30 tab Amoxic-Pot Clav 875-125Mg [Augmentin 875-125] 1 tab PO Q12HR 10 Days #20 tab Clopidogrel [Plavix] 75 mg PO DAILY 30 Days #30 tab Continue Insulin Glargine [Lantus Vial] 12 unit SQ HS Docusate Sodium [Dok] 100 mg PO DAILY Furosemide [Lasix] 20 mg PO DAILY Rivaroxaban [Xarelto] 15 mg PO DAILY hydrALAZINE HCL [Apresoline] 50 mg PO TID 30 Days #90 tab Collagenase [Santyl Ointment] 1 applic TOPICAL DAILY 30 Days #1 tub Simvastatin [Zocor] 20 mg PO DAILY Cyanocobalamin [Vitamin B-12] 500 mcg PO DAILY Insulin Lispro [Insulin Lispro Kwikpen U-100] See Protocol SQ AC-TID Insulin Lispro [Insulin Lispro Kwikpen U-100] 6 units SQ AC-TID Acetaminophen Tab [Tylenol] 650 mg PO Q6HR PRN #30 tab PRN Reason: Mild Pain Or Fever > 100.5 Discontinued Fluconazole [Diflucan] 100 mg PO DAILY 4 Days #4 tab Amoxicillin/Potassium Clav [Augmentin 875-125 Tablet] 1 tab PO BID Discharge Medication List Insulin Glargine [Lantus Vial] 12 unit SQ HS 11/09/16 [History] Cyanocobalamin [Vitamin B-12] 500 mcg PO DAILY 06/28/21 [History] Docusate Sodium [Dok] 100 mg PO DAILY 06/28/21 [History] Furosemide [Lasix] 20 mg PO DAILY 06/28/21 [History] Insulin Lispro [Insulin Lispro Kwikpen U-100] 6 units SQ AC-TID 06/28/21 [History] Insulin Lispro [Insulin Lispro Kwikpen U-100] See Protocol SQ AC-TID 06/28/21 [History] Rivaroxaban [Xarelto] 15 mg PO DAILY 06/28/21 [History] Simvastatin [Zocor] 20 mg PO DAILY 06/28/21 [History] Acetaminophen Tab [Tylenol] 650 mg PO Q6HR PRN #30 tab 07/06/21 [Rx] Collagenase [Santyl Ointment] 1 applic TOPICAL DAILY 30 Days #1 tub 07/06/21 [Rx] hydrALAZINE HCL [Apresoline] 50 mg PO TID 30 Days #90 tab 07/06/21 [Rx] amLODIPine [Norvasc] 5 mg PO DAILY #30 tab 07/20/21 [Rx] Amoxic-Pot Clav 875-125Mg [Augmentin 875-125] 1 tab PO Q12HR 10 Days #20 tab 07/24/21 [Rx] Clopidogrel [Plavix] 75 mg PO DAILY 30 Days #30 tab 07/25/21 [Rx] Follow up Appointment(s)/Referral(s): [facility], [NON-STAFF] - Gerard Molina MD [REFERRING] - 1 Week (nerve doctor, neurologist) Jenniffer Don DO [STAFF PHYSICIAN] - 2 Weeks Megha Garcia DO [Primary Care Provider] - 1-2 days Rachel Macdonald MD [Medical Doctor] - 1 Week (nerve doctor, neurologist) Marissa Molina MD [REFERRING] - 1 Week (nerve doctor, neurologist) [facility] [NON-STAFF] - Patient Instructions/Handouts: Ischemic Stroke (DC), Gangrene (DC) Activity/Diet/Wound Care/Special Instructions: Consistent carbohydrate heart healthy diet , 1600 kcal per day Activity is restricted until you see your docto We recommend to check her glucose 4 times a day before each meal and at bedtime. Keep the results in a log book it and bring it to her doctor on your appointment date If your glucose less than 70 or more than 400, then call 911 on come to emergency room Discharge/Stand Alone Forms: Who Do I Call? Discharge Disposition: HOME WITH HOME HEALTH SERVICES
--- NOTE | 2021-07-27 09:16 | ECHOF ---
Referral Reason:Thrombus MEASUREMENTS -------- HEIGHT: 172.7 cm WEIGHT: 70.8 kg BP: RVIDd: 2.6 cm (< 3.3) IVSd: 1.1 cm (0.6 - 1.1) LVIDd: 4.4 cm (3.9 - 5.3) LVPWd: 1.4 cm (0.6 - 1.1) IVSs: 1.3 cm LVIDs: 3.4 cm LVPWs: 1.4 cm LA Diam: 5.0 cm (2.7 - 3.8) LAESV Index (A-L): 50.25 ml/m Ao Diam: 3.0 cm (2.0 - 3.7) AV Cusp: 1.6 cm (1.5 - 2.6) LA Diam: 5.3 cm (2.7 - 3.8) MV EXCURSION: 19.783 mm (> 18.000) MV EF SLOPE: 41 mm/s (70 - 150) EPSS: 1.1 cm RAP: 5.00 mmHg RVSP: 73.78 mmHg FINDINGS -------- Undetermined rhythm. This was a technically adequate study. The left ventricular size is normal. There is mild concentric left ventricular hypertrophy. Overa ll left ventricular systolic function is low-normal with, an EF between 50 - 55 %. The right ventricle is normal in size. LA is severely dilated >40 ml/m2 The right atrial size is normal. There is mild aortic valve sclerosis. There is no evidence of aortic regurgitation. Moderate mitral regurgitation is present. Mild tricuspid regurgitation present. There is moderate to severe pulmonary hypertension. The rig ht ventricular systolic pressure, as measured by Doppler, is 73.78mmHg. Trace/mild (physiologic) pulmonic regurgitation. There is no pericardial effusion. CONCLUSIONS -------- 1. The left ventricular size is normal. 2. There is mild concentric left ventricular hypertrophy. 3. Overall left ventricular systolic function is low-normal with, an EF between 50 - 55 %. 4. The right ventricle is normal in size. 5. LA is severely dilated >40 ml/m2 6. The right atrial size is normal. 7. There is mild aortic valve sclerosis. 8. Moderate mitral regurgitation is present. 9. Mild tricuspid regurgitation present. 10. There is moderate to severe pulmonary hypertension. 11. The right ventricular systolic pressure, as measured by Doppler, is 73.78mmHg. 12. Trace/mild (physiologic) pulmonic regurgitation. 13. There is no pericardial effusion. PROFESSOR OF NURSING: Michelle Godinez RDCS
== END 2021-07-25 15:13 | disposition home health service (06) | DRG 982 ==
LOC: EC 15:24 → 3SCARD 16:27
PROVIDERS: ADMIT Internal Medicine; ATTEND Internal Medicine
PROC: 047S3ZZ Dilation of Left Posterior Tibial Artery, Percutaneous Approach (ICD-10-PCS; principal; 2021-07-22 10:00)
PROC: B41F1ZZ Fluoroscopy of Right Lower Extremity Arteries using Low Osmolar Contrast (ICD-10-PCS; 2021-07-22 10:00)
PROC: B41G1ZZ Fluoroscopy of Left Lower Extremity Arteries using Low Osmolar Contrast (ICD-10-PCS; 2021-07-22 10:00)
DX: I63.9 Cerebral infarction, unspecified (principal); I45.2 Bifascicular block; I48.20 Chronic atrial fibrillation, unspecified; E11.52 Type 2 diabetes mellitus with diabetic peripheral angiopathy with gangrene; L03.116 Cellulitis of left lower limb; L97.329 Non-pressure chronic ulcer of left ankle with unspecified severity; L97.419 Non-pressure chronic ulcer of right heel and midfoot with unspecified severity; N17.9 Acute kidney failure, unspecified; N18.30 Chronic kidney disease, stage 3 unspecified; E11.22 Type 2 diabetes mellitus with diabetic chronic kidney disease; E11.621 Type 2 diabetes mellitus with foot ulcer; E11.65 Type 2 diabetes mellitus with hyperglycemia; G83.11 Monoplegia of lower limb affecting right dominant side; I13.10 Hypertensive heart and chronic kidney disease without heart failure, with stage 1 through stage 4 chronic kidney disease, or unspecified chronic kidney disease; I48.0 Paroxysmal atrial fibrillation; L03.032 Cellulitis of left toe; L89.512 Pressure ulcer of right ankle, stage 2; L97.519 Non-pressure chronic ulcer of other part of right foot with unspecified severity; L97.523 Non-pressure chronic ulcer of other part of left foot with necrosis of muscle; R29.810 Facial weakness; Z79.01 Long term (current) use of anticoagulants; Z79.4 Long term (current) use of insulin; Z79.899 Other long term (current) drug therapy; Z86.16 Personal history of COVID-19; Z86.73 Personal history of transient ischemic attack (TIA), and cerebral infarction without residual deficits; Z88.6 Allergy status to analgesic agent; S31.103A Unspecified open wound of abdominal wall, right lower quadrant without penetration into peritoneal cavity, initial encounter; X58.XXXA Exposure to other specified factors, initial encounter
CPT/HCPCS: 36415; 37228; 70450; 70551; 71046; 75625; 75716; 80048; 80053; 80061; 82150; 82607; 82746; 83036; 83690; 84443; 84484; 85025; 85610; 85730; 93005; 93306; 93880; 93923; 94760; 95816; 99285

== ENCOUNTER 2021-09-07 15:27 | Inpatient (IN) | payer MEDICARE ==
[2021-09-07] MEDS ORDERED: VANCOMYCIN IV PER PHARMACY 1 EACH MISC MISCELLANE PRN (15:40)
[2021-09-07] MEDS ORDERED: SODIUM CHLORIDE 0.9% 1,000 ML IV STA (15:41)
[2021-09-07] MEDS ORDERED: SODIUM CHLORIDE 0.9% 500 ML 500 ML IV STA (15:41)
[2021-09-07] MEDS ORDERED: VANCOMYCIN 1,250 MG in SODIUM CHLORIDE 0.9% 250 ML IVPB STA (15:44)
[2021-09-07] MEDS ORDERED: NALOXONE 0.4 MG/ML 1 ML VIAL IV PRN (16:01)
--- NOTE | 2021-09-07 16:11 | ED ---
General Adult HPI - General Chief complaint: Wound/Laceration Stated complaint: Gangrene Left Foot Time Seen by Provider: 09/07/21 15:34 Source: patient, family Mode of arrival: wheelchair Limitations: physical limitation - History of Present Illness Initial comments: Dictation was produced using [employer] dictation software. please excuse any grammatical, word or spelling errors. Chief Complaint: 81-year-old female presents emergency department from wound clinic for gangrenous left foot History of Present Illness: 81-year-old female she presents to the emergency department for gangrenous left foot. Patient was seen at the wound clinic today for routine wound check and dressing change when they found that patient's wound was malodorous and has no significant discharge. Patient has been suffering from gangrene for several weeks. Family members at the bedside note that over the last couple days they noticed that patient's wound had become malodorous. Patient feels fine she denies any constitutional symptoms. Denies any pain complaints. The ROS documented in this emergency department record has been reviewed and confirmed by me. Those systems with pertinent positive or negative responses have been documented in the HPI. All other systems are other negative and/or noncontributory. PHYSICAL EXAM: General Impression: Alert and oriented x3, not in acute distress HEENT: Normocephalic atraumatic, extra-ocular movements intact, pupils equal and reactive to light bilaterally, mucous membranes moist. Cardiovascular: Heart regular rate and rhythm Chest: Able to complete full sentences, no retractions, no tachypnea Abdomen: abdomen soft, non-tender, non-distended, no organomegaly Musculoskeletal: Pulses present and equal in all extremities, no peripheral edema Motor: no focal deficits noted Neurological: CN II-XII grossly intact, no focal motor or sensory deficits noted Skin: Intact with no visualized rashes Psych: Normal affect and mood Left foot: Gangrenous left foot with multiple gangrenous toes. appear to be a 15 cm open wound with some discharge over the lateral dorsum of the foot ED course: 81 y Old female presents to the emergency department for gangrene of the left foot. Patient does have characteristics of wet gangrene she was sent here by the infectious disease doctor. Vital signs upon arrival are within acceptable limits. Laboratory evaluation obtained. Mild leukocytosis of 14.4, hemoglobin of 9.0. Patient's hemoglobin is around her baseline. White count is elevated. Coag pa wilfredo is unremarkable. Metabolic panel shows sodium 129, glucose of 259 with slightly elevated renal markers. Foot x-ray shows gas forming organisms within the soft tissues, distal fifth metatarsal fracture. Patient started on vancomycin and Zosyn. Patient admitted to [facility]. Vascular surgeon and infectious disease consulted. - Related Data Home Medications Medication Instructions Recorded Confirmed Insulin Glargine [Lantus Vial] 12 unit SQ HS 11/09/16 07/17/21 Cyanocobalamin [Vitamin B-12] 500 mcg PO DAILY 06/28/21 07/17/21 Docusate Sodium [Dok] 100 mg PO DAILY 06/28/21 07/17/21 Furosemide [Lasix] 20 mg PO DAILY 06/28/21 07/17/21 Insulin Lispro [Insulin Lispro 6 units SQ AC-TID 06/28/21 07/17/21 Kwikpen U-100] Insulin Lispro [Insulin Lispro See Protocol SQ AC-TID 06/28/21 07/17/21 Kwikpen U-100] Rivaroxaban [Xarelto] 15 mg PO DAILY 06/28/21 07/17/21 Simvastatin [Zocor] 20 mg PO DAILY 06/28/21 07/17/21 Previous Rx's Medication Instructions Recorded Acetaminophen Tab [Tylenol] 650 mg PO Q6HR PRN #30 tab 07/06/21 Collagenase [Santyl Ointment] 1 applic TOPICAL DAILY 30 Days #1 07/06/21 tub hydrALAZINE HCL [Apresoline] 50 mg PO TID 30 Days #90 tab 07/06/21 amLODIPine [Norvasc] 5 mg PO DAILY #30 tab 07/20/21 Amoxic-Pot Clav 875-125Mg 1 tab PO Q12HR 10 Days #20 tab 07/24/21 [Augmentin 875-125] Clopidogrel [Plavix] 75 mg PO DAILY 30 Days #30 tab 07/25/21 Allergies Allergy/AdvReac Type Severity Reaction Status Date / Time aspirin Allergy Anaphylaxis Verified 09/07/21 15:29 Review of Systems ROS Statement: Those systems with pertinent positive or pertinent negative responses have been documented in the HPI. ROS Other: All systems not noted in ROS Statement are negative. Past Medical History Past Medical History: Atrial Fibrillation, Diabetes Mellitus, Hypertension Additional Past Medical History / Comment(s): wound rt foot, wound to left pinkey, wound right abdominal wall History of Any Multi-Drug Resistant Organisms: None Reported Past Surgical History: Cholecystectomy Additional Past Surgical History / Comment(s): hematoma removal abdomen Past Anesthesia/Blood Transfusion Reactions: No Reported Reaction Past Psychological History: No Psychological Hx Reported Smoking Status: Never smoker Past Alcohol Use History: None Reported Past Drug Use History: None Reported - Past Family History Sister(s) Family Medical History: Cancer Brother(s) Family Medical History: Cancer General Exam Limitations: physical limitation Course Vital Signs 09/07/21 15:29 Temperature 98.1 F Pulse Rate 62 Respiratory 18 Rate Blood Pressure 153/56 O2 Sat by Pulse 99 Oximetry Medical Decision Making - Lab Data Result diagrams: 09/07/21 16:11 09/07/21 16:11 Lab Results 09/07/21 09/07/21 09/07/21 Range/Units 16:11 16:11 16:11 WBC 14.4 H (3.8-10.6) k/uL RBC 2.99 L (3.80-5.40) m/uL Hgb 9.0 L (11.4-16.0) gm/dL Hct 27.7 L (34.0-46.0) % MCV 92.4 (80.0-100.0) fL MCH 30.1 (25.0-35.0) pg MCHC 32.6 (31.0-37.0) g/dL RDW 14.7 (11.5-15.5) % Plt Count 373 (150-450) k/uL MPV 7.5 Neutrophils % 90 % Lymphocytes % 5 % Monocytes % 3 % Eosinophils % 0 % Basophils % 0 % Neutrophils # 12.9 H (1.3-7.7) k/uL Lymphocytes # 0.8 L (1.0-4.8) k/uL Monocytes # 0.5 (0-1.0) k/uL Eosinophils # 0.0 (0-0.7) k/uL Basophils # 0.0 (0-0.2) k/uL PT 15.7 H (9.0-12.0) sec INR 1.5 H (<1.2) APTT 35.3 H (22.0-30.0) sec Sodium 129 L (137-145) mmol/L Potassium 3.7 (3.5-5.1) mmol/L Chloride 94 L (98-107) mmol/L Carbon Dioxide 24 (22-30) mmol/L Anion Gap 11 mmol/L BUN 30 H (7-17) mg/dL Creatinine 1.47 H (0.52-1.04) mg/dL Est GFR (CKD-EPI)AfAm 39 (>60 ml/min/1.73 sqM) Est GFR (CKD-EPI)NonAf 33 (>60 ml/min/1.73 sqM) Glucose 259 H (74-99) mg/dL Plasma Lactic Acid Nolan (0.7-2.0) mmol/L Calcium 9.1 (8.4-10.2) mg/dL 09/07/21 Range/Units 16:11 WBC (3.8-10.6) k/uL RBC (3.80-5.40) m/uL Hgb (11.4-16.0) gm/dL Hct (34.0-46.0) % MCV (80.0-100.0) fL MCH (25.0-35.0) pg MCHC (31.0-37.0) g/dL RDW (11.5-15.5) % Plt Count (150-450) k/uL MPV Neutrophils % % Lymphocytes % % Monocytes % % Eosinophils % % Basophils % % Neutrophils # (1.3-7.7) k/uL Lymphocytes # (1.0-4.8) k/uL Monocytes # (0-1.0) k/uL Eosinophils # (0-0.7) k/uL Basophils # (0-0.2) k/uL PT (9.0-12.0) sec INR (<1.2) APTT (22.0-30.0) sec Sodium (137-145) mmol/L Potassium (3.5-5.1) mmol/L Chloride (98-107) mmol/L Carbon Dioxide (22-30) mmol/L Anion Gap mmol/L BUN (7-17) mg/dL Creatinine (0.52-1.04) mg/dL Est GFR (CKD-EPI)AfAm (>60 ml/min/1.73 sqM) Est GFR (CKD-EPI)NonAf (>60 ml/min/1.73 sqM) Glucose (74-99) mg/dL Plasma Lactic Acid Nolan 1.4 (0.7-2.0) mmol/L Calcium (8.4-10.2) mg/dL Disposition Clinical Impression: Gangrene Disposition: ADMITTED IP TO THIS HOSP Condition: Serious Referrals: Megha Oneal DO [Primary Care Provider] - 1-2 days Decision Time: 17:13
[2021-09-07] MEDS ORDERED: SODIUM CHLORIDE 0.9% 1,000 ML IV SCH (16:15)
[2021-09-07 16:41] LABS: Basophils % (A) 0 %; Eosinophils % (A) 0 %; HCT 27.7 % (34.0-46.0); Lymphocytes # (A) 0.8 k/uL (1.0-4.8); Lymphocytes % (A) 5 %; MCH 30.1 pg (25.0-35.0); MCHC 32.6 g/dL (31.0-37.0); MCV 92.4 fL (80.0-100.0); Mean Platelet Volume 7.5; Monocytes # (A) 0.5 k/uL (0-1.0); Monocytes % (A) 3 %; Neutrophils # (A) 12.9 k/uL (1.3-7.7); Neutrophils % (A) 90 %; Platelet Count 373 k/uL (150-450); RBC 2.99 m/uL (3.80-5.40); RDW 14.7 % (11.5-15.5); WBC 14.4 k/uL (3.8-10.6)
--- NOTE | 2021-09-07 16:44 | XR ---
Left foot HISTORY: Gangrene 3 views of the left foot, correlation to prior exam 07/20/2021 There is lucency within the soft tissues consistent with possible gas-forming organisms. There is a f racture of the distal fifth metatarsal with some displacement, findings could be secondary to underly ing osteomyelitis. Soft tissue swelling is present. There are vascular calcifications present as on p rior exam. No evident dislocation. There is a plantar calcaneal spur. There is an enthesophyte at ins ertion of the chest is distended. IMPRESSION: Findings consistent with gas-forming organisms within the soft tissues, distal fifth meta tarsal fracture
[2021-09-07 16:49] LABS: INR 1.5 (<1.2); Partial Thromboplastin Time 35.3 sec (22.0-30.0); Prothrombin Time 15.7 sec (9.0-12.0)
[2021-09-07 17:00] LABS: Calcium 9.1 mg/dL (8.4-10.2); Potassium 3.7 mmol/L (3.5-5.1)
[2021-09-07] MEDS: ACETAMINOPHEN TAB 325 MG TAB PO PRN ×2 (17:07→22:39)
[2021-09-07] MEDS ORDERED: PIPERACILLIN-TAZOBACTAM 3.375 GM in SODIUM CHLORIDE 0.9% 100 ML IVPB STA (17:14)
--- NOTE | 2021-09-07 19:02 | P.HPIM ---
History of Present Illness this is a pleasant 81 yo female with paste medical history of Atrial Fibrillation, Diabetes Mellitus, Hypertension, Hyperlipidemia, chronic kidney disease Patient was sent for left foot infection that failed outpatient therapy. At outpatient she was on Bactrim. She has this foot infection for more than one month when started like a little pink toe with callus that got injured after trauma and got infected and start getting bigger, she was following up with infectious disease team Dr. Campos, however he referred her today to the hospital for failure of outpatient therapy. Also she has a wound in the right lower quadrant abdominal wall from old hematoma when she was on subcu heparin when she was in the hospital, she status post evacuation and a dressing in place with no significant surrounding cellulitis. she denies chest pain or dyspnea. No abdominal pain. No change in urine or bowel habits. No fever. No smoking, alcohol or illicit drugs. Hemodynamically stable Labs showed leukocytosis of 14.4, hemoglobin 9.0. Platelet count is normal. INR is 1.5 Sodium 129, creatinine 1.47 which is at baseline. Glucose is 259, corrected sodium for hyperglycemia with 132-133. Foot x-ray: Findings consistent with gas forming organisms within soft tissue. Distal fifth metatarsal fracture In the emergency room patient received IV vancomycin and Zosyn and normal saline Review of Systems CONSTITUTIONAL: No fever, no malaise, no fatigue. HEENT: No recent visual problems or hearing problems. Denied any sore throat. CARDIOVASCULAR: No orthopnea, PND, no palpitations, no syncope. PULMONARY: No shortness of breath, no cough, no hemoptysis. GASTROINTESTINAL: No diarrhea, no nausea, no vomiting, no abdominal pain. Normoactive bowel sounds. NEUROLOGICAL: No headaches, no weakness, no numbness. HEMATOLOGICAL: Denies any bleeding or petechiae. GENITOURINARY: Denies any burning micturition, frequency, or urgency. MUSCULOSKELETAL/RHEUMATOLOGICAL: Denies any joint pain, swelling, or any muscle pain. Except what is mentioned above ENDOCRINE: Denies any polyuria or polydipsia. Past Medical History Past Medical History: Atrial Fibrillation, Diabetes Mellitus, Hypertension Additional Past Medical History / Comment(s): wound rt foot, wound to left pinkey, wound right abdominal wall History of Any Multi-Drug Resistant Organisms: None Reported Past Surgical History: Cholecystectomy Additional Past Surgical History / Comment(s): hematoma removal abdomen Past Anesthesia/Blood Transfusion Reactions: No Reported Reaction Past Psychological History: No Psychological Hx Reported Smoking Status: Never smoker Past Alcohol Use History: None Reported Past Drug Use History: None Reported - Past Family History Sister(s) Family Medical History: Cancer Brother(s) Family Medical History: Cancer Medications and Allergies Home Medications Medication Instructions Recorded Confirmed Type Insulin Glargine [Lantus Vial] 12 unit SQ HS 11/09/16 09/07/21 History Cyanocobalamin [Vitamin B-12] 500 mcg PO DAILY 06/28/21 09/07/21 History Docusate Sodium [Dok] 100 mg PO DAILY 06/28/21 09/07/21 History Furosemide [Lasix] 20 mg PO DAILY 06/28/21 09/07/21 History Insulin Lispro [Insulin Lispro 6 units SQ AC-TID 06/28/21 09/07/21 History Kwikpen U-100] Insulin Lispro [Insulin Lispro See Protocol SQ AC-TID 06/28/21 09/07/21 History Kwikpen U-100] Rivaroxaban [Xarelto] 15 mg PO DAILY 06/28/21 09/07/21 History Simvastatin [Zocor] 20 mg PO DAILY 06/28/21 09/07/21 History Acetaminophen Tab [Tylenol] 650 mg PO Q6HR PRN #30 tab 07/06/21 09/07/21 Rx Collagenase [Santyl Ointment] 1 applic TOPICAL DAILY 30 Days #1 07/06/21 09/07/21 Rx tub hydrALAZINE HCL [Apresoline] 50 mg PO TID 30 Days #90 tab 07/06/21 09/07/21 Rx amLODIPine [Norvasc] 5 mg PO DAILY #30 tab 07/20/21 09/07/21 Rx Clopidogrel [Plavix] 75 mg PO DAILY 30 Days #30 tab 07/25/21 09/07/21 Rx Ferrous Fumarate 2 tab PO DAILY 09/07/21 09/07/21 History Sulfamethox-Tmp 800-160Mg [Bactrim 1 tab PO Q12HR 09/07/21 09/07/21 History DS 800-160 mg] Allergies Allergy/AdvReac Type Severity Reaction Status Date / Time aspirin Allergy Anaphylaxis Verified 09/07/21 17:12 Physical Exam Vitals: Vital Signs Temp Pulse Resp BP Pulse Ox 09/07/21 17:11 72 18 152/70 100 09/07/21 15:29 98.1 F 62 18 153/56 99 Intake and Output 09/07/21 09/07/21 09/07/21 06:59 14:59 22:59 Other: Weight 68.946 kg GENERAL: The patient is alert and oriented x3, not in any acute distress. Well developed, well nourished. Generally weak HEENT: Pupils are round and equally reacting to light. EOMI. No scleral icterus. No conjunctival pallor. Normocephalic, atraumatic. No pharyngeal erythema. No thyromegaly. CARDIOVASCULAR: S1 and S2 present. No murmurs, rubs, or gallops. PULMONARY: Chest is clear to auscultation, no wheezing or crackles. -ABDOMEN: Soft, nontender, nondistended, normoactive bowel sounds. No palpable organomegaly. RLQ wound , dressing in place MUSCULOSKELETAL: No joint swelling or deformity. -EXTREMITIES: No cyanosis, clubbing, or pedal edema. Left foot wound and surrounding cellulitis and gangrenous changes NEUROLOGICAL: Gross neurological examination did not reveal any focal deficits. SKIN: No rashes. No petechiae Results CBC & Chem 7: 09/07/21 16:11 09/07/21 16:11 Labs: Abnormal Lab Results - Last 24 Hours (Table) 09/07/21 09/07/21 09/07/21 Range/Units 16:11 16:11 16:11 WBC 14.4 H (3.8-10.6) k/uL RBC 2.99 L (3.80-5.40) m/uL Hgb 9.0 L (11.4-16.0) gm/dL Hct 27.7 L (34.0-46.0) % Neutrophils # 12.9 H (1.3-7.7) k/uL Lymphocytes # 0.8 L (1.0-4.8) k/uL PT 15.7 H (9.0-12.0) sec INR 1.5 H (<1.2) APTT 35.3 H (22.0-30.0) sec Sodium 129 L (137-145) mmol/L Chloride 94 L (98-107) mmol/L BUN 30 H (7-17) mg/dL Creatinine 1.47 H (0.52-1.04) mg/dL Glucose 259 H (74-99) mg/dL Assessment and Plan Assessment: Left foot diabetic wound, failed outpatient therapy Distal fifth metatarsal fracture related to diabetic foot infection Healing right lower quadrant abdominal wall wound secondary to recent hematoma status post evacuation Atrial Fibrillation, on Xarelto on home Diabetes Mellitus Hypertension Hyperlipidemia chronic kidney disease, stage IIIB. Mostly diabetic nephropathy Plan: This is a pleasant 81 years old female who presents with diabetic left foot ulcer and infection. Continue with antibiotics as per ID team. Patient already started on Zosyn and IV vancomycin. Which is sensitive to cefepime to decrease nephrotoxicity chances. Vascular surgery team consulted already Switch Xarelto into Lovenox while keep holding Plavix, in case patient will need surgical debridement. Continue with insulin Levemir 10 instead of home dose of 12 units and insulin sliding scale a(Hold short-acting insulin 6 units with meals) Labs and medication were reviewed.. Continue same treatment. Continue with symptomatic treatment. Resume home medication. Monitor lytes and vitals. DVT and GI prophylaxis. Further recommendations as per clinical course of the patient DVT prophylaxis: On Xarelto at home, switched to Lovenox in case patient needs surgical debridement GI Prophylaxis: Pepcid PT/OT: Pending Prognosis is guarded
[2021-09-07 21:11] LABS: Glucose,Whole Blood 315 mg/dL (75-99)
[2021-09-07] MEDS: INSULIN ASPART (NovoLOG) 100 UNIT/ML VIAL SQ SCH (21:27)
[2021-09-07] MEDS: INSULIN DETEMIR (LEVEMIR) 100 UNIT/ML SYR SQ SCH (21:27)
[2021-09-07] MEDS: CEFEPIME 2 GM in SODIUM CHLORIDE 0.9% 100 ML IVPB SCH (21:27)
[2021-09-07] MEDS: hydrALAZINE HCL 50 MG TAB PO SCH (22:14)
[2021-09-08] MEDS ORDERED: PIPERACILLIN-TAZOBACTAM 3.375 GM in SODIUM CHLORIDE 0.9% 100 ML IVPB SCH (02:00)
[2021-09-08 06:55] LABS: Glucose,Whole Blood 80 mg/dL (75-99)
[2021-09-08] MEDS: INSULIN ASPART (NovoLOG) 100 UNIT/ML VIAL SQ SCH ×4 (07:03→22:20)
[2021-09-08] MEDS: ENOXAPARIN 80 MG/0.8 ML SYRINGE SQ SCH ×2 (07:04→07:54)
[2021-09-08 07:44] LABS: African American GFR (CKD) 37 (>60 ml/min/1.73 sqM); Anion Gap 6 mmol/L; Blood Urea Nitrogen 27 mg/dL (7-17); Calcium 8.6 mg/dL (8.4-10.2); Carbon Dioxide 24 mmol/L (22-30); Chloride 103 mmol/L (98-107); Glucose 72 mg/dL (74-99); Non-African American GFR(CKD) 32 (>60 ml/min/1.73 sqM); Potassium 3.4 mmol/L (3.5-5.1); Sodium 133 mmol/L (137-145)
[2021-09-08] MEDS: DOCUSATE 100 MG CAP PO SCH (07:53)
[2021-09-08] MEDS: FUROSEMIDE 20 MG TAB PO SCH (07:53)
[2021-09-08] MEDS: amLODIPine 5 MG TAB PO SCH (07:53)
[2021-09-08] MEDS: hydrALAZINE HCL 50 MG TAB PO SCH ×2 (07:53→15:29)
[2021-09-08] MEDS: CYANOCOBALAMIN 500 MCG TAB PO SCH (07:54)
[2021-09-08] MEDS: CEFEPIME 2 GM in SODIUM CHLORIDE 0.9% 100 ML IVPB SCH (07:54)
[2021-09-08 08:09] LABS: ALT 17 U/L (4-34); AST 18 U/L (14-36); Albumin 2.6 g/dL (3.5-5.0); Albumin/Globulin Ratio 0.7; Alkaline Phosphatase 135 U/L (38-126); Bilirubin,Unconjugated 0.2 mg/dL (0.0-1.1); Globulin 3.7 g/dL; Magnesium 1.6 mg/dL (1.6-2.3); Total Bilirubin 0.6 mg/dL (0.2-1.3); Total Protein 6.3 g/dL (6.3-8.2)
[2021-09-08] MEDS: POTASSIUM CHLORIDE 10 MEQ in WATER FOR INJECTION 1 100ML.BAG IVPB SCH ×4 (08:58→12:40)
[2021-09-08] MEDS ORDERED: CLOPIDOGREL 75 MG TAB PO SCH (09:00)
[2021-09-08 09:34] LABS: Basophils # (A) 0.02 X 10*3/uL (0.00-0.10); Basophils % (A) 0.2 %; Eosinophils # (A) 0.17 X 10*3/uL (0.04-0.35); Eosinophils % (A) 1.3 %; HCT 22.2 % (37.2-46.3); HGB 7.1 g/dL (12.0-15.0); Immature Grans, Automated 0.9 %; Lymphocytes # (A) 0.88 X 10*3/uL (0.90-5.00); Lymphocytes % (A) 6.8 %; MCV 93.7 fL (80.0-97.0); Mean Platelet Volume 10.1 fL (9.5-12.2); Monocytes % (A) 7.7 %; NRBC Per 100 WBC 0 /100 WBCS (0.0-0.0); Neutrophils # (A) 10.78 X 10*3/uL (1.80-7.70); Neutrophils % (A) 83.1 %; Platelet Count 282 X 10*3/uL (140-440); RBC 2.37 X 10*6/uL (4.10-5.20); RDW 14.5 % (11.5-14.5); WBC 12.97 X 10*3/uL (4.50-10.00)
[2021-09-08] MEDS ORDERED: Potassium Replacement Protocol 1 EACH MISC MISCELLANE PRN ×2 (09:46→12:08)
--- NOTE | 2021-09-08 11:12 | P.GSCN ---
History of Present Illness Consult date: 09/08/21 Reason for Consult: Gangrene left foot Requesting physician: Abelardo E Sheet History of present illness: This is a pleasant 81-year-old female who presented to the emergency department on recommendation from the wound clinic. Patient was seen for her routine wound care visit for gangrene left foot and it was noted that is malodorous with significant discharge. The patient was recently admitted to the hospital in [facility] of this year for ischemic changes to the left foot. She underwent aortogram with CO2 angiography, bilateral iliofemoral angiogram with percutaneous balloon angioplasty of left posterior tibial artery with Dr. Don on 07/22/2021. During that hospitalization it was discussed with the patient and her daughter moving forward with left fourth and fifth toe amputation versus wound care, patient had chosen wound care at that time. X-ray of left foot was taken with findings consistent with osteomyelitis in the distal fifth metatarsal fracture. Vascular surgery was consulted for gangrene of left foot. Patient is afebrile. She denies any fevers or chills at home. He states she did not follow-up with Dr. Don as scheduled. Has been following with the wound care clinic. Noticed follow older approximately 1 week ago. She denies any shortness of breath or chest pain. She is currently on vancomycin and Maxipime. Review of Systems 14 point review of systems was completed all pertinent positives and negatives as stated in the HPI. Past Medical History Past Medical History: Atrial Fibrillation, Diabetes Mellitus, Hypertension Additional Past Medical History / Comment(s): wound rt foot, wound to left pinkey, wound right abdominal wall History of Any Multi-Drug Resistant Organisms: None Reported Past Surgical History: Cholecystectomy Additional Past Surgical History / Comment(s): hematoma removal abdomen Past Anesthesia/Blood Transfusion Reactions: No Reported Reaction Past Psychological History: No Psychological Hx Reported Smoking Status: Never smoker Past Alcohol Use History: None Reported Past Drug Use History: None Reported - Past Family History Sister(s) Family Medical History: Cancer Brother(s) Family Medical History: Cancer Medications and Allergies Home Medications Medication Instructions Recorded Confirmed Type Insulin Glargine [Lantus Vial] 12 unit SQ HS 11/09/16 09/07/21 History Cyanocobalamin [Vitamin B-12] 500 mcg PO DAILY 06/28/21 09/07/21 History Docusate Sodium [Dok] 100 mg PO DAILY 06/28/21 09/07/21 History Furosemide [Lasix] 20 mg PO DAILY 06/28/21 09/07/21 History Insulin Lispro [Insulin Lispro 6 units SQ AC-TID 06/28/21 09/07/21 History Kwikpen U-100] Insulin Lispro [Insulin Lispro See Protocol SQ AC-TID 06/28/21 09/07/21 History Kwikpen U-100] Rivaroxaban [Xarelto] 15 mg PO DAILY 06/28/21 09/07/21 History Simvastatin [Zocor] 20 mg PO DAILY 06/28/21 09/07/21 History Acetaminophen Tab [Tylenol] 650 mg PO Q6HR PRN #30 tab 07/06/21 09/07/21 Rx Collagenase [Santyl Ointment] 1 applic TOPICAL DAILY 30 Days #1 07/06/21 09/07/21 Rx tub hydrALAZINE HCL [Apresoline] 50 mg PO TID 30 Days #90 tab 07/06/21 09/07/21 Rx amLODIPine [Norvasc] 5 mg PO DAILY #30 tab 07/20/21 09/07/21 Rx Clopidogrel [Plavix] 75 mg PO DAILY 30 Days #30 tab 07/25/21 09/07/21 Rx Ferrous Fumarate 2 tab PO DAILY 09/07/21 09/07/21 History Sulfamethox-Tmp 800-160Mg [Bactrim 1 tab PO Q12HR 09/07/21 09/07/21 History DS 800-160 mg] Allergies Allergy/AdvReac Type Severity Reaction Status Date / Time aspirin Allergy Anaphylaxis Verified 09/07/21 17:12 Surgical - Exam Osteopathic Statement: *. No significant issues noted on an osteopathic structural exam other than those noted in the History and Physical/Consult. Vital Signs Temp Pulse Resp BP Pulse Ox 98.1 F 62 18 153/56 99 09/07/21 15:29 09/07/21 15:29 09/07/21 15:29 09/07/21 15:29 09/07/21 15:29 General appearance: The patient is alert, oriented, appears in no acute distress. HET: Head is normocephalic and atraumatic. Pupils are equal and reactive. Neck: Supple without lymphadenopathy. Trachea midline. No audible carotid bruit. Heart: S1 S2. Regular rate and rhythm. Lungs: Clear to auscultation bilaterally. Abdomen: Soft, nontender, nondistended. Extremities: Left foot with open wound on dorsal aspect with tendon exposure with drainage and malodorous. Gangrene 2-4th toes. Neurological: No focal deficits. Results - Labs 09/09/21 04:26 09/09/21 04:26 Abnormal Lab Results - Last 24 Hours (Table) 09/07/21 09/07/21 09/07/21 Range/Units 16:11 16:11 16:11 WBC 14.4 H (3.8-10.6) k/uL RBC 2.99 L (3.80-5.40) m/uL Hgb 9.0 L (11.4-16.0) gm/dL Hct 27.7 L (34.0-46.0) % Neutrophils # 12.9 H (1.3-7.7) k/uL Lymphocytes # 0.8 L (1.0-4.8) k/uL PT 15.7 H (9.0-12.0) sec INR 1.5 H (<1.2) APTT 35.3 H (22.0-30.0) sec Sodium 129 L (137-145) mmol/L Chloride 94 L (98-107) mmol/L BUN 30 H (7-17) mg/dL Creatinine 1.47 H (0.52-1.04) mg/dL Glucose 259 H (74-99) mg/dL POC Glucose (mg/dL) (75-99) mg/dL 09/07/21 Range/Units 21:09 WBC (3.8-10.6) k/uL RBC (3.80-5.40) m/uL Hgb (11.4-16.0) gm/dL Hct (34.0-46.0) % Neutrophils # (1.3-7.7) k/uL Lymphocytes # (1.0-4.8) k/uL PT (9.0-12.0) sec INR (<1.2) APTT (22.0-30.0) sec Sodium (137-145) mmol/L Chloride (98-107) mmol/L BUN (7-17) mg/dL Creatinine (0.52-1.04) mg/dL Glucose (74-99) mg/dL POC Glucose (mg/dL) 315 H (75-99) mg/dL Diabetes panel 09/07/21 Range/Units 16:11 Sodium 129 L (137-145) mmol/L Potassium 3.7 (3.5-5.1) mmol/L Chloride 94 L (98-107) mmol/L Carbon Dioxide 24 (22-30) mmol/L BUN 30 H (7-17) mg/dL Creatinine 1.47 H (0.52-1.04) mg/dL Glucose 259 H (74-99) mg/dL Calcium 9.1 (8.4-10.2) mg/dL Calcium panel 09/07/21 Range/Units 16:11 Calcium 9.1 (8.4-10.2) mg/dL Pituitary panel 09/07/21 Range/Units 16:11 Sodium 129 L (137-145) mmol/L Potassium 3.7 (3.5-5.1) mmol/L Chloride 94 L (98-107) mmol/L Carbon Dioxide 24 (22-30) mmol/L BUN 30 H (7-17) mg/dL Creatinine 1.47 H (0.52-1.04) mg/dL Glucose 259 H (74-99) mg/dL Calcium 9.1 (8.4-10.2) mg/dL Adrenal panel 09/07/21 Range/Units 16:11 Sodium 129 L (137-145) mmol/L Potassium 3.7 (3.5-5.1) mmol/L Chloride 94 L (98-107) mmol/L Carbon Dioxide 24 (22-30) mmol/L BUN 30 H (7-17) mg/dL Creatinine 1.47 H (0.52-1.04) mg/dL Glucose 259 H (74-99) mg/dL Calcium 9.1 (8.4-10.2) mg/dL - Imaging Comments: Left foot x-ray report states findings consistent with gas-forming organisms within the soft tissues, distal fifth metatarsal fracture. Assessment and Plan Assessment: 1. Gangrene left foot/2-4 toes 2. Osteomyelitis 3. Hypokalemia 4. Diabetes mellitus 5. History atrial fibrillation 6. Hypertension Plan: 1. Continue IV antibiotics per recommendations from infectious disease 2. Keep nothing by mouth 3. Hold Lovenox 4. Will plan for debridement of left foot with possible amputation of toes 2 through 4, versus possible transmetatarsal amputation 5. Replace potassium per protocol 6. Discussed need for amputation with patient and family in the form of transmetatarsal amputation as the only other option would be a below the knee amputation. The procedure, risks and benefits were reviewed. All questions answered. Consent signed. Plan for TMA later this date. Thank you for this consultation, we will continue to follow. The impression and plan of care has been dictated as directed. I performed a history and examination of this patient, discussed the same with the dictator. I agree with the dictator's note ,documented as a scribe. Any additional findings or plans will be noted.
[2021-09-08 11:28] LABS: Glucose,Whole Blood 88 mg/dL (75-99)
--- NOTE | 2021-09-08 12:12 | P.PN ---
Subjective this is a pleasant 81 yo female with paste medical history of Atrial Fibrillation, Diabetes Mellitus, Hypertension, Hyperlipidemia, chronic kidney d isease Patient was sent for left foot infection that failed outpatient therapy. At outpatient she was on Bactrim. She has this foot infection for more than one month when started like a little pink toe with callus that got injured after trauma and got infected and start getting bigger, she was following up with infectious disease team Dr. Campos, however he referred her today to the hospital for failure of outpatient therapy. Also she has a wound in the right lower quadrant abdominal wall from old hematoma when she was on subcu heparin when she was in the hospital, she status post evacuation and a dressing in place with no significant surrounding cellulitis. she denies chest pain or dyspnea. No abdominal pain. No change in urine or bowel habits. No fever. No smoking, alcohol or illicit drugs. Hemodynamically stable Labs showed leukocytosis of 14.4, hemoglobin 9.0. Platelet count is normal. INR is 1.5 Sodium 129, creatinine 1.47 which is at baseline. Glucose is 259, corrected sod ium for hyperglycemia with 132-133. Foot x-ray: Findings consistent with gas forming organisms within soft tissue. Distal fifth metatarsal fracture In the emergency room patient received IV vancomycin and Zosyn and normal saline 09/08/2021 Patient clinically the same, she still has infection in her left foot with foul- smelling. Surgical team on the case and the planned for debridement later on today. Discussed with the bedside nurse and Lovenox is kept on hold. Abdomen without patient denies any other symptoms. She has low-grade fever and currently she is kept on cefepime and IV vancomycin. Creatinine is stable 1.5. Hemoglobin 7.1. We will do anemia workup. Sodium improved to 133. Objective - Vital Signs Vital signs: Vital Signs Temp 99.8 F H 09/08/21 07:29 Pulse 68 09/08/21 07:29 Resp 17 09/08/21 07:29 BP 151/58 09/08/21 07:29 Pulse Ox 99 09/08/21 07:29 Intake & Output 09/07/21 09/08/21 09/08/21 18:59 06:59 18:59 Weight 68.946 kg Other: # Voids 3 - Exam GENERAL: The patient is alert and oriented x3, not in any acute distress. Well developed, well nourished. Generally weak HEENT: Pupils are round and equally reacting to light. EOMI. No scleral icterus. No conjunctival pallor. Normocephalic, atraumatic. No pharyngeal erythema. No thyromegaly. CARDIOVASCULAR: S1 and S2 present. No murmurs, rubs, or gallops. PULMONARY: Chest is clear to auscultation, no wheezing or crackles. -ABDOMEN: Soft, nontender, nondistended, normoactive bowel sounds. No palpable organomegaly. RLQ wound , dressing in place MUSCULOSKELETAL: No joint swelling or deformity. -EXTREMITIES: No cyanosis, clubbing, or pedal edema. Left foot wound and surrounding cellulitis and gangrenous changes NEUROLOGICAL: Gross neurological examination did not reveal any focal deficits. SKIN: No rashes. No petechiae - Labs CBC & Chem 7: 09/08/21 06:47 09/08/21 06:47 Labs: Abnormal Lab Results - Last 24 Hours (Table) 09/07/21 09/07/21 09/07/21 Range/Units 16:11 16:11 16:11 WBC 14.4 H (3.8-10.6) k/uL RBC 2.99 L (3.80-5.40) m/uL Hgb 9.0 L (11.4-16.0) gm/dL Hct 27.7 L (34.0-46.0) % Immature Gran # (0.00-0.04) X 10*3/uL Neutrophils # 12.9 H (1.3-7.7) k/uL Lymphocytes # 0.8 L (1.0-4.8) k/uL PT 15.7 H (9.0-12.0) sec INR 1.5 H (<1.2) APTT 35.3 H (22.0-30.0) sec Sodium 129 L (137-145) mmol/L Potassium (3.5-5.1) mmol/L Chloride 94 L (98-107) mmol/L BUN 30 H (7-17) mg/dL Creatinine 1.47 H (0.52-1.04) mg/dL Glucose 259 H (74-99) mg/dL POC Glucose (mg/dL) (75-99) mg/dL Hemoglobin A1c (0.0-6.0) % Alkaline Phosphatase (38-126) U/L Albumin (3.5-5.0) g/dL 09/07/21 09/08/21 09/08/21 Range/Units 21:09 06:47 06:47 WBC (3.8-10.6) k/uL RBC (3.80-5.40) m/uL Hgb (11.4-16.0) gm/dL Hct (34.0-46.0) % Immature Gran # (0.00-0.04) X 10*3/uL Neutrophils # (1.3-7.7) k/uL Lymphocytes # (1.0-4.8) k/uL PT (9.0-12.0) sec INR (<1.2) APTT (22.0-30.0) sec Sodium 133 L (137-145) mmol/L Potassium 3.4 L (3.5-5.1) mmol/L Chloride (98-107) mmol/L BUN 27 H (7-17) mg/dL Creatinine 1.53 H (0.52-1.04) mg/dL Glucose 72 L (74-99) mg/dL POC Glucose (mg/dL) 315 H (75-99) mg/dL Hemoglobin A1c 8.6 H (0.0-6.0) % Alkaline Phosphatase 135 H (38-126) U/L Albumin 2.6 L (3.5-5.0) g/dL 09/08/21 Range/Units 06:47 WBC 12.97 H (3.8-10.6) k/uL RBC 2.37 L (3.80-5.40) m/uL Hgb 7.1 L (11.4-16.0) gm/dL Hct 22.2 L (34.0-46.0) % Immature Gran # 0.12 H (0.00-0.04) X 10*3/uL Neutrophils # 10.78 H (1.3-7.7) k/uL Lymphocytes # 0.88 L (1.0-4.8) k/uL PT (9.0-12.0) sec INR (<1.2) APTT (22.0-30.0) sec Sodium (137-145) mmol/L Potassium (3.5-5.1) mmol/L Chloride (98-107) mmol/L BUN (7-17) mg/dL Creatinine (0.52-1.04) mg/dL Glucose (74-99) mg/dL POC Glucose (mg/dL) (75-99) mg/dL Hemoglobin A1c (0.0-6.0) % Alkaline Phosphatase (38-126) U/L Albumin (3.5-5.0) g/dL Assessment and Plan Assessment: Left foot diabetic wound, failed outpatient therapy Distal fifth metatarsal fracture related to diabetic foot infection Healing right lower quadrant abdominal wall wound secondary to recent hematoma status post evacuation Atrial Fibrillation, on Xarelto on home Diabetes Mellitus Hypertension Hyperlipidemia chronic kidney disease, stage IIIB. Mostly diabetic nephropathy Plan: This is a pleasant 81 years old female who presents with diabetic left foot ulcer and infection. Continue with antibiotics as per ID team. Continue with cefepime and IV v ancomycin. Vascular surgery team consulted already, with plan for debridement Switch Xarelto into Lovenox while keep holding Plavix, patient will need surgical debridement. Continue with insulin Levemir 10 instead of home dose of 12 units and insulin sliding scale a(Hold short-acting insulin 6 units with meals) Labs and medication were reviewed.. Continue same treatment. Continue with symptomatic treatment. Resume home medication. Monitor lytes and vitals. DVT and GI prophylaxis. Further recommendations as per clinical course of the patient DVT prophylaxis: On Xarelto at home, switched to Lovenox in case patient needs surgical debridement GI Prophylaxis: Pepcid PT/OT: Pending Prognosis is guarded
[2021-09-08] MEDS ORDERED: MAGNESIUM SULFATE-D5W PMX 1 GM in DEXTROSE/WATER 1 100ML.BAG IVPB ONE (12:30)
[2021-09-08] MEDS: LACTATED RINGERS 1,000 ML IV SCH (12:40)
[2021-09-08 15:02] LABS: Reticulocyte % 1.93 % (0.10-1.80)
[2021-09-08] MEDS: VANCOMYCIN 1,250 MG in SODIUM CHLORIDE 0.9% 250 ML IVPB SCH (15:29)
[2021-09-08] MEDS ORDERED: ONDANSETRON 4 MG/2 ML VIAL ONE ×2 (15:38→15:52)
[2021-09-08] MEDS ORDERED: IV FLUID CONTINUATION 1,000 ML IV ONE (15:45)
[2021-09-08] MEDS ORDERED: ONDANSETRON 4 MG/2 ML VIAL IVP ONE (15:57)
[2021-09-08] MEDS ORDERED: SUCCINYLCHOLINE CHLORIDE 100 MG/5 ML SYR IV ONE (16:17)
[2021-09-08] MEDS ORDERED: fentaNYL (PF) 50 MCG/ML 2 ML AMP ONE (16:17)
[2021-09-08] MEDS ORDERED: HYDROmorphone (PF) 1 MG/ML ONE (16:17)
[2021-09-08] MEDS ORDERED: PROPOFOL 10 MG/ML 20 ML VIAL IV ONE (16:17)
[2021-09-08 16:28] LABS: Glucose,Whole Blood 101 mg/dL (75-99)
[2021-09-08 18:48] LABS: % Iron Saturation 7.25 (12.00-45.00)
[2021-09-08] MEDS ORDERED: FERROUS SULFATE 325 MG TAB PO SCH (20:30)
[2021-09-08 20:44] LABS: Glucose,Whole Blood 94 mg/dL (75-99)
[2021-09-08] MEDS: INSULIN DETEMIR (LEVEMIR) 100 UNIT/ML SYR SQ SCH (22:20)
[2021-09-08] MEDS: CEFEPIME 1 GM in SODIUM CHLORIDE 0.9% 50 ML IVPB SCH (22:25)
[2021-09-08] MEDS: FERROUS SULFATE 325 MG TAB PO SCH (22:36)
--- NOTE | 2021-09-08 23:55 | P.CONS ---
History of Present Illness - Reason for Consult Consult date: 09/08/21 Left foot gangrene Requesting physician: Abelardo E Sheet - Chief Complaint Worsening discoloration to the left foot x few days - History of Present Illness Patient is a 81-year-old female with a past medical history significant for diabetic foot infection this patient recently developing gangrene involving her left second toe fifth toe for the patient has been ev aluated in outpatient setting patient did have angioplasty to the left leg on her last admission and vascular surgery was waiting for demarcation of the left foot before surgery patient was evaluated in the wound care center yesterday and noticed to have a slight worsening and turning into wet gangrene with a high risk of secondary infection, the patient was sent to the ER for admission and possible surgery, patient on presentation to the hospital was afebrile did have low-grade fever this morning of 29.8 she did have white count of 14.4 with a left shift creatinine was mildly elevated blood cultures obtained which are currently pending x-ray was suspicious for infection patient was started on vancomycin and cefepime vascular surgery has seen the patient and planning for surgical amputation this afternoon, patient currently denies having any pain to the left foot because of her underlying neuropathy did have mild drainage no significant foul-smelling no chest pain shortness of breath or cough no diarrhea he also have a wound to the right lower abdominal wall which is currently healin g with no symptoms referable to it and the wound on the right lateral medial area with no symptoms of referable to it Review of Systems Positive point has been mentioned in the HPI rest of the systems are negative Past Medical History Past Medical History: Atrial Fibrillation, Diabetes Mellitus, Hypertension Additional Past Medical History / Comment(s): wound rt foot, wound to left pinkey, wound right abdominal wall History of Any Multi-Drug Resistant Organisms: None Reported Past Surgical History: Cholecystectomy Additional Past Surgical History / Comment(s): hematoma removal abdomen Past Anesthesia/Blood Transfusion Reactions: No Reported Reaction Past Psychological History: No Psychological Hx Reported Smoking Status: Never smoker Past Alcohol Use History: None Reported Past Drug Use History: None Reported - Past Family History Sister(s) Family Medical History: Cancer Brother(s) Family Medical History: Cancer Medications and Allergies Home Medications Medication Instructions Recorded Confirmed Type Insulin Glargine [Lantus Vial] 12 unit SQ HS 11/09/16 09/07/21 History Cyanocobalamin [Vitamin B-12] 500 mcg PO DAILY 06/28/21 09/07/21 History Docusate Sodium [Dok] 100 mg PO DAILY 06/28/21 09/07/21 History Furosemide [Lasix] 20 mg PO DAILY 06/28/21 09/07/21 History Insulin Lispro [Insulin Lispro 6 units SQ AC-TID 06/28/21 09/07/21 History Kwikpen U-100] Insulin Lispro [Insulin Lispro See Protocol SQ AC-TID 06/28/21 09/07/21 History Kwikpen U-100] Rivaroxaban [Xarelto] 15 mg PO DAILY 06/28/21 09/07/21 History Simvastatin [Zocor] 20 mg PO DAILY 06/28/21 09/07/21 History Acetaminophen Tab [Tylenol] 650 mg PO Q6HR PRN #30 tab 07/06/21 09/07/21 Rx Collagenase [Santyl Ointment] 1 applic TOPICAL DAILY 30 Days #1 07/06/21 09/07/21 Rx tub hydrALAZINE HCL [Apresoline] 50 mg PO TID 30 Days #90 tab 07/06/21 09/07/21 Rx amLODIPine [Norvasc] 5 mg PO DAILY #30 tab 07/20/21 09/07/21 Rx Clopidogrel [Plavix] 75 mg PO DAILY 30 Days #30 tab 07/25/21 09/07/21 Rx Ferrous Fumarate 2 tab PO DAILY 09/07/21 09/07/21 History Sulfamethox-Tmp 800-160Mg [Bactrim 1 tab PO Q12HR 09/07/21 09/07/21 History DS 800-160 mg] Allergies Allergy/AdvReac Type Severity Reaction Status Date / Time aspirin Allergy Anaphylaxis Verified 09/07/21 17:12 Physical Exam Vitals: Vital Signs Temp Pulse Pulse Resp BP BP Pulse Ox 09/08/21 10:51 99.8 F H 68 16 151/58 99 09/08/21 07:29 99.8 F H 68 17 151/58 99 09/08/21 02:00 99.1 F 57 L 18 120/48 99 09/07/21 20:00 98.4 F 47 L 18 142/54 100 09/07/21 18:25 74 18 147/83 100 09/07/21 17:11 72 18 152/70 100 09/07/21 15:29 98.1 F 62 18 153/56 99 Intake and Output 09/07/21 09/08/21 09/08/21 22:59 06:59 14:59 Intake Total 210 Balance 210 Intake: Intake, IV Titration 210 Amount Cefepime 1 gm In Sodium 50 Chloride 0.9% 50 ml @ 12. 5 mls/hr IVPB Q12HR HILDA Rx#:[id number] Sodium Chloride 0.9% 1, 160 000 ml @ 20 mls/hr IV . Q24H HILDA Rx#:[id number] Other: # Voids 3 Weight 68.946 kg GENERAL DESCRIPTION: Elderly female lying in bed, no distress. No tachypnea or accessory muscle of respiration use. HEENT: Shows Pallor , no scleral icterus. Oral mucous membrane is dry. No pharyngeal erythema or thrush NECK: Trachea central, no thyromegaly. LUNGS: Unlabored breathing. Clear to auscultation anteriorly. No wheeze or crackle. HEART: S1, S2, regular rate and rhythm. No loud murmur ABDOMEN: Soft, no tenderness , guarding or rigidity, no organomegaly EXTREMITIES: Left foot second to fifth toe necrotic with some wound tendon exposed. SKIN: No rash, no masses palpable. NEUROLOGICAL: The patient is awake, alert, oriented x3, mood and affect normal. Results CBC & Chem 7: 09/08/21 06:47 09/08/21 06:47 Labs: Abnormal Lab Results - Last 24 Hours (Table) 09/07/21 09/07/21 09/07/21 Range/Units 16:11 16:11 16:11 WBC 14.4 H (3.8-10.6) k/uL RBC 2.99 L (3.80-5.40) m/uL Hgb 9.0 L (11.4-16.0) gm/dL Hct 27.7 L (34.0-46.0) % Immature Gran # (0.00-0.04) X 10*3/uL Neutrophils # 12.9 H (1.3-7.7) k/uL Lymphocytes # 0.8 L (1.0-4.8) k/uL PT 15.7 H (9.0-12.0) sec INR 1.5 H (<1.2) APTT 35.3 H (22.0-30.0) sec Sodium 129 L (137-145) mmol/L Potassium (3.5-5.1) mmol/L Chloride 94 L (98-107) mmol/L BUN 30 H (7-17) mg/dL Creatinine 1.47 H (0.52-1.04) mg/dL Glucose 259 H (74-99) mg/dL POC Glucose (mg/dL) (75-99) mg/dL Hemoglobin A1c (0.0-6.0) % Alkaline Phosphatase (38-126) U/L Albumin (3.5-5.0) g/dL 09/07/21 09/08/21 09/08/21 Range/Units 21:09 06:47 06:47 WBC (3.8-10.6) k/uL RBC (3.80-5.40) m/uL Hgb (11.4-16.0) gm/dL Hct (34.0-46.0) % Immature Gran # (0.00-0.04) X 10*3/uL Neutrophils # (1.3-7.7) k/uL Lymphocytes # (1.0-4.8) k/uL PT (9.0-12.0) sec INR (<1.2) APTT (22.0-30.0) sec Sodium 133 L (137-145) mmol/L Potassium 3.4 L (3.5-5.1) mmol/L Chloride (98-107) mmol/L BUN 27 H (7-17) mg/dL Creatinine 1.53 H (0.52-1.04) mg/dL Glucose 72 L (74-99) mg/dL POC Glucose (mg/dL) 315 H (75-99) mg/dL Hemoglobin A1c 8.6 H (0.0-6.0) % Alkaline Phosphatase 135 H (38-126) U/L Albumin 2.6 L (3.5-5.0) g/dL 09/08/21 Range/Units 06:47 WBC 12.97 H (3.8-10.6) k/uL RBC 2.37 L (3.80-5.40) m/uL Hgb 7.1 L (11.4-16.0) gm/dL Hct 22.2 L (34.0-46.0) % Immature Gran # 0.12 H (0.00-0.04) X 10*3/uL Neutrophils # 10.78 H (1.3-7.7) k/uL Lymphocytes # 0.88 L (1.0-4.8) k/uL PT (9.0-12.0) sec INR (<1.2) APTT (22.0-30.0) sec Sodium (137-145) mmol/L Potassium (3.5-5.1) mmol/L Chloride (98-107) mmol/L BUN (7-17) mg/dL Creatinine (0.52-1.04) mg/dL Glucose (74-99) mg/dL POC Glucose (mg/dL) (75-99) mg/dL Hemoglobin A1c (0.0-6.0) % Alkaline Phosphatase (38-126) U/L Albumin (3.5-5.0) g/dL Assessment and Plan (1) Diabetic foot ulcer Current Visit: Yes Status: Acute Code(s): E11.621 - TYPE 2 DIABETES MELLITUS WITH FOOT ULCER; L97.509 - NON-PRESSURE CHRONIC ULCER OTH PRT UNSP FOOT W UNSP SEVERITY SNOMED Code(s): 253423101 (2) Gangrene of toe of left foot Current Visit: No Status: Acute Code(s): I96 - GANGRENE, NOT ELSEWHERE CLASSIFIED SNOMED Code(s): 61551641883747682 Plan: 1patient with left diabetic foot infection with gangrene involving the left 2nd-5th toe which is turning into a wet gangrene and concern for second infection with elevated white count and abnormal x-ray will need to call for the gram-positive as well as gram-negative pathogen. 2continue the patient on vancomycin while watching kidney function closely however switched cefepime to Unasyn 3 g every 8 hours. 3waiting for surgical debridement/amputation this afternoon. We will follow on clinical condition and cultures to further adjust medication if needed Thank you for this consultation will follow this patient along with you Time with Patient: Greater than 30
[2021-09-09 06:47] LABS: Glucose,Whole Blood 160 mg/dL (75-99)
[2021-09-09 07:11] LABS: African American GFR (CKD) 36 (>60 ml/min/1.73 sqM); Anion Gap 8 mmol/L; Blood Urea Nitrogen 26 mg/dL (7-17); Calcium 8.8 mg/dL (8.4-10.2); Carbon Dioxide 25 mmol/L (22-30); Chloride 100 mmol/L (98-107); Glucose 144 mg/dL (74-99); Magnesium 1.8 mg/dL (1.6-2.3); Non-African American GFR(CKD) 31 (>60 ml/min/1.73 sqM); Potassium 4.4 mmol/L (3.5-5.1); Sodium 133 mmol/L (137-145)
[2021-09-09] MEDS: CYANOCOBALAMIN 500 MCG TAB PO SCH (08:37)
[2021-09-09] MEDS: DOCUSATE 100 MG CAP PO SCH (08:37)
[2021-09-09] MEDS: FERROUS SULFATE 325 MG TAB PO SCH ×2 (08:37→17:44)
[2021-09-09] MEDS: CEFEPIME 1 GM in SODIUM CHLORIDE 0.9% 50 ML IVPB SCH ×2 (08:37→20:22)
[2021-09-09] MEDS: INSULIN ASPART (NovoLOG) 100 UNIT/ML VIAL SQ SCH ×5 (08:37→21:51)
[2021-09-09] MEDS: amLODIPine 5 MG TAB PO SCH (08:37)
[2021-09-09] MEDS: FUROSEMIDE 20 MG TAB PO SCH (08:37)
[2021-09-09] MEDS ORDERED: ENOXAPARIN 80 MG/0.8 ML SYRINGE SQ SCH (09:00)
[2021-09-09 09:13] LABS: Basophils # (A) 0.03 X 10*3/uL (0.00-0.10); Basophils % (A) 0.3 %; Eosinophils # (A) 0.29 X 10*3/uL (0.04-0.35); Eosinophils % (A) 2.8 %; HCT 22.8 % (37.2-46.3); Immature Grans, Automated 1.4 %; Lymphocytes # (A) 0.95 X 10*3/uL (0.90-5.00); MCH 28.8 pg (27.0-32.0); MCHC 30.7 g/dL (32.0-37.0); MCV 93.8 fL (80.0-97.0); Monocytes # (A) 0.95 X 10*3/uL (0.20-1.00); NRBC Per 100 WBC 0 /100 WBCS (0.0-0.0); Neutrophils # (A) 8.15 X 10*3/uL (1.80-7.70); Neutrophils % (A) 77.5 %; Platelet Count 294 X 10*3/uL (140-440); RBC 2.43 X 10*6/uL (4.10-5.20); RDW 14.9 % (11.5-14.5); WBC 10.52 X 10*3/uL (4.50-10.00)
[2021-09-09] MEDS: hydrALAZINE HCL 25 MG TAB PO SCH ×2 (09:43→21:56)
[2021-09-09] MEDS ORDERED: SODIUM FERRIC GLUCONAT-SUCROSE 125 MG in SODIUM CHLORIDE 0.9% 100 ML IVPB ONE (10:00)
--- NOTE | 2021-09-09 10:06 | P.CRDCN ---
History of Present Illness History of present illness: HISTORY OF PRESENTING ILLNESS This is a pleasant 81-year-old female past medical history significant for permanent atrial fibrillation on Xarelto, hypertension, type 2 diabetes, chronic kidney disease, hyperlipidemia, peripheral vascular disease s/p aortogram with CO2 angiography, bilateral iliofemoral angiogram with percutaneous balloon angioplasty of left posterior tibial artery with Dr. Don on 07/22/2021. She follows in the office with Dr. Ureña. We have been asked to see in consultation for bradycardia. Patient initially presented to the emergency department on 09/07/2021 for gangrenous left foot. She was at the wound clinic and is recommended the patient presents emergency department. On 09/08/2021 patient with left foot debridement with transmetatarsal amputation with Dr. Swan. Patient is seen and examined at the bedside. She denies any chest pain shortness of breath. Her pain is controlled. She denies any lightheadedness, dizziness, presyncope. Telemetry reviewed patient in each fibrillation with pauses noted up to 3 seconds, these happen overnight and patient is asymptomatic. DIAGNOSTICS EKG reveals atrial fibrillation, heart 62, right bundle-branch block, PVC Telemetry tracings indicate-fibrillation with controlled ventricular rates, pauses noted up to 3 seconds overnight. Laboratory reviewed, WBC 10.5, hemoglobin 10.0, platelets 1 06/24/1993, sodium 133, potassium 4.4, BUN 26, serum creatinine 1.58, magnesium 1.8 Current home medications include hydralazine 50 3 times a day, amlodipine 5 mg daily, simvastatin 20 mg daily, Xarelto 50 mg daily, Lasix 20 mg daily, Plavix 75 mg daily Echocardiogram 07/18/2021 revealed an EF of 52%, moderate mitral regurgitation, mild tricuspid regurgitation, severe pulmonary hypertension with an RVSP 74 mmHg REVIEW OF SYSTEMS At the time of my exam: CONSTITUTIONAL: Denies fever or chills. CARDIOVASCULAR: Denies chest pain, shortness of breath, orthopnea, PND or palpitations. RESPIRATORY: Denies cough. GASTROINTESTINAL: Denies abdominal pain, diarrhea, constipation, nausea or vomiting. MUSCULOSKELETAL: Denies myalgias. NEUROLOGIC: Denies numbness, tingling, headacbe or weakness. ENDOCRINE: Denies fatigue, weight change, polydipsia or polyurina. GENITOURINARY: Denies burning, hematuria or urgency with micturation. HEMATOLOGIC: Denies history of anemia or bleeding. PHYSICAL EXAMINATION Blood pressure 140/57, heart rate 74, afebrile, saturations on percent on room air CONSTITUTIONAL: No apparent distress. HEENT: Head is normocephalic. Pupils are equal, round. Sclerae anicteric. Mucous membranes of the mouth are moist. No JVD. No carotid bruit. CHEST EXAMINATION: Lungs are clear to auscultation. No chest wall tenderness is noted on palpation or with deep breathing. HEART EXAMINATION: Irregular rate and rhythm. S1, S2 heard. Systolic ejection murmur at the apex ABDOMEN: Soft, nontender. Positive bowel sounds. EXTREMITIES: no lower extremity edema NEUROLOGIC EXAMINATION: Patient is awake, alert and oriented x3. ASSESSMENT Gangrene of left foot s/p left foot debridement with transmetatarsal amputation 09/08/21 Permanent atrial fibrillation on Xarelto outpatient Hypertension Type 2 diabetes Chronic kidney disease Hyperlipidemia Peripheral vascular disease PLAN Patient in atrial fibrillation with pauses noted overnight up to 3 seconds, patient is asymptomatic Discontinue amlodipine Start hydralazine 25mg BID and will adjust as needed Continue cardiac telemetry Restart Xarelto per vascular surgery clearance Further recommendations based on clinical course Nurse practitioner note has been reviewed by physician. Signing provider agrees with the documented findings, assessment, and plan of care. Past Medical History Past Medical History: Atrial Fibrillation, Diabetes Mellitus, Hypertension Additional Past Medical History / Comment(s): wound rt foot, wound to left pinkey, wound right abdominal wall History of Any Multi-Drug Resistant Organisms: None Reported Past Surgical History: Cholecystectomy Additional Past Surgical History / Comment(s): hematoma removal abdomen Past Anesthesia/Blood Transfusion Reactions: No Reported Reaction Past Psychological History: No Psychological Hx Reported Smoking Status: Never smoker Past Alcohol Use History: None Reported Past Drug Use History: None Reported - Past Family History Sister(s) Family Medical History: Cancer Brother(s) Family Medical History: Cancer Medications and Allergies Home Medications Medication Instructions Recorded Confirmed Type Insulin Glargine [Lantus Vial] 12 unit SQ HS 11/09/16 09/07/21 History Cyanocobalamin [Vitamin B-12] 500 mcg PO DAILY 06/28/21 09/07/21 History Docusate Sodium [Dok] 100 mg PO DAILY 06/28/21 09/07/21 History Furosemide [Lasix] 20 mg PO DAILY 06/28/21 09/07/21 History Insulin Lispro [Insulin Lispro 6 units SQ AC-TID 06/28/21 09/07/21 History Kwikpen U-100] Insulin Lispro [Insulin Lispro See Protocol SQ AC-TID 06/28/21 09/07/21 History Kwikpen U-100] Rivaroxaban [Xarelto] 15 mg PO DAILY 06/28/21 09/07/21 History Simvastatin [Zocor] 20 mg PO DAILY 06/28/21 09/07/21 History Acetaminophen Tab [Tylenol] 650 mg PO Q6HR PRN #30 tab 07/06/21 09/07/21 Rx Collagenase [Santyl Ointment] 1 applic TOPICAL DAILY 30 Days #1 07/06/21 Rx tub hydrALAZINE HCL [Apresoline] 50 mg PO TID 30 Days #90 tab 07/06/21 09/07/21 Rx amLODIPine [Norvasc] 5 mg PO DAILY #30 tab 07/20/21 09/07/21 Rx Clopidogrel [Plavix] 75 mg PO DAILY 30 Days #30 tab 07/25/21 09/07/21 Rx Ferrous Fumarate 2 tab PO DAILY 09/07/21 09/07/21 History Sulfamethox-Tmp 800-160Mg [Bactrim 1 tab PO Q12HR 09/07/21 09/07/21 History DS 800-160 mg] Allergies Allergy/AdvReac Type Severity Reaction Status Date / Time aspirin Allergy Anaphylaxis Verified 09/07/21 17:12 Physical Exam Vitals: Vital Signs Temp Pulse Resp BP Pulse Ox 09/09/21 07:24 98.5 F 74 17 148/57 100 09/09/21 02:00 97.9 F 57 L 18 135/55 100 09/08/21 20:55 46 L 117/54 100 09/08/21 20:40 48 L 122/63 97 09/08/21 20:20 46 L 118/46 96 09/08/21 20:00 45 L 126/52 97 09/08/21 19:55 44 L 129/45 99 09/08/21 19:40 46 L 135/54 98 09/08/21 19:20 59 L 119/52 99 09/08/21 18:55 50 L 16 117/55 94 L 09/08/21 18:40 56 L 16 131/61 94 L 09/08/21 18:25 70 16 102/47 100 09/08/21 18:10 97 F L 65 16 104/55 100 09/08/21 15:45 99.4 F 81 16 177/77 100 09/08/21 14:53 100.8 F H 79 17 167/66 98 09/08/21 10:51 99.8 F H 68 16 151/58 99 Intake and Output 09/08/21 09/09/21 09/09/21 22:59 06:59 14:59 Intake Total 500 Output Total 50 Balance 450 Intake: IV 500 Output: Estimated Blood Loss 50 Other: # Voids 3 Results 09/09/21 04:26 09/09/21 04:26 Cardiac Enzymes 09/08/21 Range/Units 06:47 AST 18 (14-36) U/L CBC 09/08/21 Range/Units 06:47 WBC 12.97 H (4.50-10.00) X 10*3/uL RBC 2.37 L (4.10-5.20) X 10*6/uL Hgb 7.1 L (12.0-15.0) g/dL Hct 22.2 L (37.2-46.3) % Plt Count 282 (140-440) X 10*3/uL Comprehensive Metabolic Panel 09/08/21 09/09/21 Range/Units 06:47 04:26 Sodium 133 L 133 L (137-145) mmol/L Potassium 3.4 L 4.4 (3.5-5.1) mmol/L Chloride 103 100 (98-107) mmol/L Carbon Dioxide 24 25 (22-30) mmol/L BUN 27 H 26 H (7-17) mg/dL Creatinine 1.53 H 1.58 H (0.52-1.04) mg/dL Glucose 72 L 144 H (74-99) mg/dL Calcium 8.6 8.8 (8.4-10.2) mg/dL Unconjugated Bilirubin 0.2 (0.0-1.1) mg/dL AST 18 (14-36) U/L ALT 17 (4-34) U/L Alkaline Phosphatase 135 H (38-126) U/L Total Protein 6.3 (6.3-8.2) g/dL Albumin 2.6 L (3.5-5.0) g/dL Current Medications Generic Name Dose Route Start Last Admin Trade Name Rileyq PRN Reason Stop Dose Admin Acetaminophen 650 mg 09/07/21 16:01 09/07/21 22:39 Acetaminophen Tab 325 Mg Tab PO 650 mg Q6HR PRN Administration Mild Pain or Fever > 100.5 Amlodipine Besylate 5 mg 09/08/21 09:00 09/08/21 07:53 Amlodipine 5 Mg Tab PO 5 mg DAILY HILDA Administration Cyanocobalamin 500 mcg 09/08/21 09:00 09/08/21 07:54 Cyanocobalamin 500 Mcg Tab PO 500 mcg DAILY HILDA Administration Docusate Sodium 100 mg 09/08/21 09:00 09/08/21 07:53 Docusate 100 Mg Cap PO 100 mg DAILY HILDA Administration Enoxaparin Sodium 70 mg 09/09/21 09:00 Enoxaparin 80 Mg/0.8 Ml Syringe SQ DAILY [facility] Ferrous Sulfate 325 mg 09/08/21 22:00 09/08/21 22:36 Ferrous Sulfate 325 Mg Tab PO 325 mg BID-W/MEALS HILDA Administration Furosemide 20 mg 09/08/21 09:00 09/08/21 07:53 Furosemide 20 Mg Tab PO 20 mg DAILY HILDA Administration Vancomycin HCl 1,250 mg/ 250 mls @ 125 mls/hr 09/08/21 16:00 09/08/21 15:29 Sodium Chloride IVPB 125 mls/hr Q24H HILDA Administration Cefepime HCl 1 gm/ Sodium 50 mls @ 12.5 mls/hr 09/08/21 21:00 09/08/21 22:25 Chloride IVPB 12.5 mls/hr Q12HR HILDA Administration Lactated Ringer's 1,000 mls @ 75 mls/hr 09/08/21 12:45 09/08/21 12:40 Lactated Ringers IV 75 mls/hr .[id number] HILDA Administration Insulin Aspart 0 unit 09/07/21 21:00 09/08/21 22:20 Insulin Aspart (Novolog) 100 Unit/Ml Vial SQ Not Given ACHS [facility] Protocol Insulin Detemir 10 unit 09/07/21 21:00 09/08/21 22:20 Insulin Detemir (Levemir) 100 Unit/Ml Syr SQ Not Given HS HILDA Miscellaneous Information 1 each 09/10/21 15:00 Vancomycin Trough Due 1 Each Misc MISCELLANE 09/10/21 15:01 ONCE ONE Miscellaneous Information 1 each 09/08/21 12:08 Potassium Replacement Protocol 1 Each Misc MISCELLANE DAILY PRN Per Protocol Protocol Naloxone HCl 0.2 mg 09/07/21 16:01 Naloxone 0.4 Mg/Ml 1 Ml Vial IV Q2M PRN Opioid Reversal Intake and Output 09/08/21 09/09/21 09/09/21 22:59 06:59 14:59 Intake Total 500 Output Total 50 Balance 450 Intake: IV 500 Output: Estimated Blood Loss 50 Other: # Voids 3 09/08/21 06:47 09/09/21 04:26
[2021-09-09 11:44] LABS: Glucose,Whole Blood 289 mg/dL (75-99)
--- NOTE | 2021-09-09 12:53 | P.OP ---
Date of Procedure: 09/08/21 Preoperative Diagnosis: Gangrene of the second, third, fourth and fifth toes left foot. Postoperative Diagnosis: same. Procedure(s) Performed: transmitral tarsal of dictation of the left foot Implants: None. Anesthesia: MARCEL Surgeon: Santhosh Swan Estimated Blood Loss (ml): 50 Pathology: other (amputated portion of the left foot) Condition: stable Disposition: no change Indications for Procedure: patient is a 81-year-old female with a long-standing history of diabetes mellitus who presented with sridhar gangrenous changes of the second through fifth toes of the left foot. X-rays revealed in the soft tissues. DP PT pulses were absent. Patient had previously undergone percutaneous intervention with improved arterial perfusion and as such no further intervention was felt appropriate or necessary at this time Description of Procedure: patient was brought to the operative room placed in the supine position and Mr. general endotracheal anesthesia delivered by the department anesthesiology. She received her regular scheduled doses of antibiotics. Patient's left foot was sterilely prepped and draped in usual manner. Incision made anteriorly laterally, medially and posteriorly at the edge of the nonviable tissues. Soft tissues were elevated off the metatarsals and utilizing a power saw all toes were amputated at the metatarsal level. Good bleeding characteristics were noted. Specimen was sent to the department of pathology. Deep tissue cultures were obtained. Her flap appeared viable. The wound was copiously irrigated. Tendons and other nonviable soft tissue were removed. Deep tissues were closed with 3-0 Vicryl placed in simple interrupted form. Skin was reapproximated with 4-0 nylon placed in vertical mattress form. Proper dressings were applied. Patient tolerated procedure well and was taken to the recovery area in satisfactory and stable condition.
--- NOTE | 2021-09-09 14:28 | P.PN ---
Subjective Progress Note Date: 09/09/21 Principal diagnosis: Gangrene left foot, osteomyelitis The patient is seen and examined lying in bed. She is postop day #1 for left transmetatarsal amputation. She denies any pain. No acute findings through the night. She's been afebrile. She's had no reported bleeding from the amputation site. Objective - Vital Signs Vital signs: Vital Signs Temp 98.5 F 09/09/21 07:24 Pulse 74 09/09/21 07:24 Resp 17 09/09/21 07:24 BP 148/57 09/09/21 07:24 Pulse Ox 100 09/09/21 07:24 Intake & Output 09/08/21 09/09/21 09/09/21 18:59 06:59 18:59 Intake Total 710 Output Total 50 Balance 660 Intake: IV 500 Intake, IV Titration 210 Amount Cefepime 1 gm In Sodium 50 Chloride 0.9% 50 ml @ 12. 5 mls/hr IVPB Q12HR [facility] Rx#:[id number] Sodium Chloride 0.9% 1, 160 000 ml @ 20 mls/hr IV . Q24H [facility] Rx#:[id number] Output: Estimated Blood Loss 50 Other: # Voids 3 - Exam General appearance: The patient is alert, oriented, appears in no acute distress. HET: Head is normocephalic and atraumatic. Pupils are equal and reactive. Neck: Supple without lymphadenopathy. Trachea midline. No audible carotid bruit. Heart: S1 S2. Irregular rate and rhythm. Lungs: Clear to auscultation bilaterally. Abdomen: Soft, nontender, nondistended. Extremities: Left lower extremity transmetatarsal amputation site well approximated with sutures. Warm to the touch. Surrounding tissue pink. Minimal bleeding. Neurological: No focal deficits. Strength and sensation are grossly intact. - Labs CBC & Chem 7: 09/09/21 04:26 09/09/21 04:26 Labs: Abnormal Lab Results - Last 24 Hours (Table) 09/08/21 09/08/21 09/08/21 Range/Units 06:47 06:47 06:47 WBC 12.97 H (4.50-10.00) X 10*3/uL RBC 2.37 L (4.10-5.20) X 10*6/uL Hgb 7.1 L (12.0-15.0) g/dL Hct 22.2 L (37.2-46.3) % Immature Gran # 0.12 H (0.00-0.04) X 10*3/uL Neutrophils # 10.78 H (1.80-7.70) X 10*3/uL Lymphocytes # 0.88 L (0.90-5.00) X 10*3/uL Retic Count (0.10-1.80) % Sodium (137-145) mmol/L BUN (7-17) mg/dL Creatinine (0.52-1.04) mg/dL Glucose (74-99) mg/dL POC Glucose (mg/dL) (75-99) mg/dL Hemoglobin A1c 8.6 H (0.0-6.0) % Iron (50-170) ug/dL TIBC (228-460) ug/dL % Saturation (12.00-45.00) Transferrin (204.0-354.0) mg/dL Ferritin (10.0-291.0) ng/mL Alkaline Phosphatase 135 H (38-126) U/L Albumin 2.6 L (3.5-5.0) g/dL Vitamin B12 (200.0-944.0) pg/mL 09/08/21 09/08/21 09/08/21 Range/Units 06:47 06:47 15:55 WBC (4.50-10.00) X 10*3/uL RBC (4.10-5.20) X 10*6/uL Hgb (12.0-15.0) g/dL Hct (37.2-46.3) % Immature Gran # (0.00-0.04) X 10*3/uL Neutrophils # (1.80-7.70) X 10*3/uL Lymphocytes # (0.90-5.00) X 10*3/uL Retic Count 1.93 H (0.10-1.80) % Sodium (137-145) mmol/L BUN (7-17) mg/dL Creatinine (0.52-1.04) mg/dL Glucose (74-99) mg/dL POC Glucose (mg/dL) 101 H (75-99) mg/dL Hemoglobin A1c (0.0-6.0) % Iron 14 L (50-170) ug/dL TIBC 192 L (228-460) ug/dL % Saturation 7.25 L (12.00-45.00) Transferrin 137.0 L (204.0-354.0) mg/dL Ferritin 352.0 H (10.0-291.0) ng/mL Alkaline Phosphatase (38-126) U/L Albumin (3.5-5.0) g/dL Vitamin B12 1728.0 H (200.0-944.0) pg/mL 09/09/21 09/09/21 Range/Units 04:26 06:45 WBC (4.50-10.00) X 10*3/uL RBC (4.10-5.20) X 10*6/uL Hgb (12.0-15.0) g/dL Hct (37.2-46.3) % Immature Gran # (0.00-0.04) X 10*3/uL Neutrophils # (1.80-7.70) X 10*3/uL Lymphocytes # (0.90-5.00) X 10*3/uL Retic Count (0.10-1.80) % Sodium 133 L (137-145) mmol/L BUN 26 H (7-17) mg/dL Creatinine 1.58 H (0.52-1.04) mg/dL Glucose 144 H (74-99) mg/dL POC Glucose (mg/dL) 160 H (75-99) mg/dL Hemoglobin A1c (0.0-6.0) % Iron (50-170) ug/dL TIBC (228-460) ug/dL % Saturation (12.00-45.00) Transferrin (204.0-354.0) mg/dL Ferritin (10.0-291.0) ng/mL Alkaline Phosphatase (38-126) U/L Albumin (3.5-5.0) g/dL Vitamin B12 (200.0-944.0) pg/mL Microbiology - Last 24 Hours (Table) 09/07/21 16:00 Blood Culture - Preliminary Blood No Growth after 24 hours 09/07/21 16:11 Blood Culture - Preliminary Blood No Growth after 24 hours Assessment and Plan Assessment: 1. Postop day #1 left transmetatarsal amputation 2. Gangrene left foot/2-4 toes 3. Osteomyelitis 4. Hypokalemia 5. Diabetes mellitus 6. History atrial fibrillation 7. Hypertension Plan: 1. Continue IV antibiotics per recommendations from infectious disease 2. Diet as tolerated 3. May resume anticoagulation and Plavix 4. Daily dressing change with Adaptics, 4 x 4 and Kerlix 5. IV iron 1 ordered 6. Repeat CBC in the morning Thank you for this consultation, we will continue to follow. The impression and plan of care has been dictated as directed. I performed a history and examination of this patient, discussed the same with the dictator. I agree with the dictator's note ,documented as a scribe. Any additional findings or plans will be noted.
[2021-09-09] MEDS: VANCOMYCIN 1,250 MG in SODIUM CHLORIDE 0.9% 250 ML IVPB SCH (16:07)
[2021-09-09 16:46] LABS: Glucose,Whole Blood 335 mg/dL (75-99)
--- NOTE | 2021-09-09 17:24 | P.PN ---
Subjective this is a pleasant 81 yo female with paste medical history of Atrial Fibrillation, Diabetes Mellitus, Hypertension, Hyperlipidemia, chronic kidney d isease Patient was sent for left foot infection that failed outpatient therapy. At outpatient she was on Bactrim. She has this foot infection for more than one month when started like a little pink toe with callus that got injured after trauma and got infected and start getting bigger, she was following up with infectious disease team Dr. Campos, however he referred her today to the hospital for failure of outpatient therapy. Also she has a wound in the right lower quadrant abdominal wall from old hematoma when she was on subcu heparin when she was in the hospital, she status post evacuation and a dressing in place with no significant surrounding cellulitis. she denies chest pain or dyspnea. No abdominal pain. No change in urine or bowel habits. No fever. No smoking, alcohol or illicit drugs. Hemodynamically stable Labs showed leukocytosis of 14.4, hemoglobin 9.0. Platelet count is normal. INR is 1.5 Sodium 129, creatinine 1.47 which is at baseline. Glucose is 259, corrected sod ium for hyperglycemia with 132-133. Foot x-ray: Findings consistent with gas forming organisms within soft tissue. Distal fifth metatarsal fracture In the emergency room patient received IV vancomycin and Zosyn and normal saline 09/08/2021 Patient clinically the same, she still has infection in her left foot with foul- smelling. Surgical team on the case and the planned for debridement later on today. Discussed with the bedside nurse and Lovenox is kept on hold. Abdomen without patient denies any other symptoms. She has low-grade fever and currently she is kept on cefepime and IV vancomycin. Creatinine is stable 1.5. Hemoglobin 7.1. We will do anemia workup. Sodium improved to 133. 09/09/2021 Patient is status post debridement of her left. Postoperatively she was sitting in chair fully awake and comfortable eating better than yesterday, no specific symptoms at [facility]. She is hemodynamically stable, low-grade fever is expected which is improved now. WBC common down to 10.5. Hemoglobin 7.0, creatinine is stable at 1.5, sodium normalized 133. She remains on IV cefepime and IV vancomycin. [place] be resumed as well as Plavix from tomorrow per surgery team. Her glucose on the high side resume her oral regimen of Levemir she was on 12 units at home and 6 units with meals of NovoLog. Will resume the Levemir 12 units at NovoLog 5 units with meals for now. Objective - Vital Signs Vital signs: Vital Signs Temp 99.0 F 09/09/21 14:00 Pulse 77 09/09/21 14:00 Resp 18 09/09/21 14:00 BP 155/65 09/09/21 14:00 Pulse Ox 100 09/09/21 14:00 Intake & Output 09/08/21 09/09/21 09/09/21 18:59 06:59 18:59 Intake Total 710 Output Total 50 Balance 660 Intake: IV 500 Intake, IV Titration 210 Amount Cefepime 1 gm In Sodium 50 Chloride 0.9% 50 ml @ 12. 5 mls/hr IVPB Q12HR [facility] Rx#:[id number] Sodium Chloride 0.9% 1, 160 000 ml @ 20 mls/hr IV . Q24H [facility] Rx#:[id number] Output: Estimated Blood Loss 50 Other: # Voids 3 - Exam GENERAL: The patient is alert and oriented x3, not in any acute distress. Well developed, well nourished. Generally weak HEENT: Pupils are round and equally reacting to light. EOMI. No scleral icterus. No conjunctival pallor. Normocephalic, atraumatic. No pharyngeal erythema. No thyromegaly. CARDIOVASCULAR: S1 and S2 present. No murmurs, rubs, or gallops. PULMONARY: Chest is clear to auscultation, no wheezing or crackles. -ABDOMEN: Soft, nontender, nondistended, normoactive bowel sounds. No palpable organomegaly. RLQ wound , dressing in place MUSCULOSKELETAL: No joint swelling or deformity. -EXTREMITIES: No cyanosis, clubbing, or pedal edema. Left foot surgical wound , improving with dressing in place NEUROLOGICAL: Gross neurological examination did not reveal any focal deficits. SKIN: No rashes. No petechiae - Labs CBC & Chem 7: 09/09/21 04:26 09/09/21 04:26 Labs: Abnormal Lab Results - Last 24 Hours (Table) 09/08/21 09/08/21 09/09/21 Range/Units 06:47 15:55 04:26 WBC (4.50-10.00) X 10*3/uL RBC (4.10-5.20) X 10*6/uL Hgb (12.0-15.0) g/dL Hct (37.2-46.3) % MCHC (32.0-37.0) g/dL RDW (11.5-14.5) % Immature Gran # (0.00-0.04) X 10*3/uL Neutrophils # (1.80-7.70) X 10*3/uL Sodium 133 L (137-145) mmol/L BUN 26 H (7-17) mg/dL Creatinine 1.58 H (0.52-1.04) mg/dL Glucose 144 H (74-99) mg/dL POC Glucose (mg/dL) 101 H (75-99) mg/dL Iron 14 L (50-170) ug/dL TIBC 192 L (228-460) ug/dL % Saturation 7.25 L (12.00-45.00) Transferrin 137.0 L (204.0-354.0) mg/dL Ferritin 352.0 H (10.0-291.0) ng/mL Vitamin B12 1728.0 H (200.0-944.0) pg/mL 09/09/21 09/09/21 09/09/21 Range/Units 04:26 06:45 11:42 WBC 10.52 H (4.50-10.00) X 10*3/uL RBC 2.43 L (4.10-5.20) X 10*6/uL Hgb 7.0 L (12.0-15.0) g/dL Hct 22.8 L (37.2-46.3) % MCHC 30.7 L (32.0-37.0) g/dL RDW 14.9 H (11.5-14.5) % Immature Gran # 0.15 H (0.00-0.04) X 10*3/uL Neutrophils # 8.15 H (1.80-7.70) X 10*3/uL Sodium (137-145) mmol/L BUN (7-17) mg/dL Creatinine (0.52-1.04) mg/dL Glucose (74-99) mg/dL POC Glucose (mg/dL) 160 H 289 H (75-99) mg/dL Iron (50-170) ug/dL TIBC (228-460) ug/dL % Saturation (12.00-45.00) Transferrin (204.0-354.0) mg/dL Ferritin (10.0-291.0) ng/mL Vitamin B12 (200.0-944.0) pg/mL Microbiology - Last 24 Hours (Table) 09/07/21 16:00 Blood Culture - Preliminary Blood No Growth after 24 hours 09/07/21 16:11 Blood Culture - Preliminary Blood No Growth after 24 hours Assessment and Plan Assessment: Left foot diabetic wound, failed outpatient therapy, this post debridement on 09/09. Distal fifth metatarsal fracture related to diabetic foot infection, status post debridement as above Healing right lower quadrant abdominal wall wound secondary to recent hematoma status post evacuation Atrial Fibrillation, on Xarelto on home Diabetes Mellitus Hypertension Hyperlipidemia chronic kidney disease, stage IIIB. Mostly diabetic nephropathy Plan: This is a pleasant 81 years old female who presents with diabetic left foot ulcer and infection. Continue with antibiotics as per ID team. Continue with cefepime and IV vancomycin. Vascular surgery team consulted already the patient and did debridement for her Resume Xarelto and Plavix Continue with insulin Levemir 12 units and insulin sliding scale a(resume short-acting insulin at 5 units in the state of home dose of 6 units with meals) Labs and medication were reviewed.. Continue same treatment. Continue with symptomatic treatment. Resume home medication. Monitor lytes and vitals. DVT and GI prophylaxis. Further recommendations as per clinical course of the patient DVT prophylaxis: On Xarelto GI Prophylaxis: Pepcid PT/OT: Pending Prognosis is guarded
[2021-09-09] MEDS ORDERED: INSULIN ASPART (NovoLOG) 100 UNIT/ML VIAL SQ SCH (17:30)
[2021-09-09] MEDS: LACTATED RINGERS 1,000 ML IV SCH ×2 (17:44→17:45)
--- NOTE | 2021-09-09 21:10 | P.PN ---
Subjective Progress Note Date: 09/09/21 Principal diagnosis: Left foot gangrene Patient is 81-year-old female admitted to the hospital with gangrenous toe #2-5 in this patient who is status post left foot transmetatarsal amputation completed on 09/08/2021, patient to have underlying history of diabetes mellitus with the postsurgical wound to the lower abdominal area and right lateral malleolus. On today's evaluation that is 09/09/2021 the patient denies having any fever or any chills, patient denies pain to the left foot transmetatarsal amputation site, denies any chest pain shortness of breath or cough no nausea no vomiting no abdominal pain and diarrhea Objective - Vital Signs Vital signs: Vital Signs Temp 99.0 F 09/09/21 14:00 Pulse 77 09/09/21 14:00 Resp 18 09/09/21 14:00 BP 155/65 09/09/21 14:00 Pulse Ox 100 09/09/21 14:00 Intake & Output 09/08/21 09/09/21 09/09/21 18:59 06:59 18:59 Intake Total 710 Output Total 50 Balance 660 Intake: IV 500 Intake, IV Titration 210 Amount Cefepime 1 gm In Sodium 50 Chloride 0.9% 50 ml @ 12. 5 mls/hr IVPB Q12HR [facility] Rx#:[id number] Sodium Chloride 0.9% 1, 160 000 ml @ 20 mls/hr IV . Q24H [facility] Rx#:[id number] Output: Estimated Blood Loss 50 Other: # Voids 3 - Exam GENERAL DESCRIPTION: An elderly female lying in bed in no distress RESPIRATORY SYSTEM: Unlabored breathing , decreased breath sounds at bases HEART: S1 S2 regular rate and rhythm , ABDOMEN: Soft , no tenderness EXTREMITIES: Left foot transmetatarsal amputation site wound is currently dressed no drainage and the dressing - Labs CBC & Chem 7: 09/09/21 04:26 09/09/21 04:26 Labs: Abnormal Lab Results - Last 24 Hours (Table) 09/08/21 09/08/21 09/08/21 Range/Units 06:47 06:47 15:55 WBC (4.50-10.00) X 10*3/uL RBC (4.10-5.20) X 10*6/uL Hgb (12.0-15.0) g/dL Hct (37.2-46.3) % MCHC (32.0-37.0) g/dL RDW (11.5-14.5) % Immature Gran # (0.00-0.04) X 10*3/uL Neutrophils # (1.80-7.70) X 10*3/uL Retic Count 1.93 H (0.10-1.80) % Sodium (137-145) mmol/L BUN (7-17) mg/dL Creatinine (0.52-1.04) mg/dL Glucose (74-99) mg/dL POC Glucose (mg/dL) 101 H (75-99) mg/dL Iron 14 L (50-170) ug/dL TIBC 192 L (228-460) ug/dL % Saturation 7.25 L (12.00-45.00) Transferrin 137.0 L (204.0-354.0) mg/dL Ferritin 352.0 H (10.0-291.0) ng/mL Vitamin B12 1728.0 H (200.0-944.0) pg/mL 09/09/21 09/09/21 09/09/21 Range/Units 04:26 04:26 06:45 WBC 10.52 H (4.50-10.00) X 10*3/uL RBC 2.43 L (4.10-5.20) X 10*6/uL Hgb 7.0 L (12.0-15.0) g/dL Hct 22.8 L (37.2-46.3) % MCHC 30.7 L (32.0-37.0) g/dL RDW 14.9 H (11.5-14.5) % Immature Gran # 0.15 H (0.00-0.04) X 10*3/uL Neutrophils # 8.15 H (1.80-7.70) X 10*3/uL Retic Count (0.10-1.80) % Sodium 133 L (137-145) mmol/L BUN 26 H (7-17) mg/dL Creatinine 1.58 H (0.52-1.04) mg/dL Glucose 144 H (74-99) mg/dL POC Glucose (mg/dL) 160 H (75-99) mg/dL Iron (50-170) ug/dL TIBC (228-460) ug/dL % Saturation (12.00-45.00) Transferrin (204.0-354.0) mg/dL Ferritin (10.0-291.0) ng/mL Vitamin B12 (200.0-944.0) pg/mL 09/09/21 Range/Units 11:42 WBC (4.50-10.00) X 10*3/uL RBC (4.10-5.20) X 10*6/uL Hgb (12.0-15.0) g/dL Hct (37.2-46.3) % MCHC (32.0-37.0) g/dL RDW (11.5-14.5) % Immature Gran # (0.00-0.04) X 10*3/uL Neutrophils # (1.80-7.70) X 10*3/uL Retic Count (0.10-1.80) % Sodium (137-145) mmol/L BUN (7-17) mg/dL Creatinine (0.52-1.04) mg/dL Glucose (74-99) mg/dL POC Glucose (mg/dL) 289 H (75-99) mg/dL Iron (50-170) ug/dL TIBC (228-460) ug/dL % Saturation (12.00-45.00) Transferrin (204.0-354.0) mg/dL Ferritin (10.0-291.0) ng/mL Vitamin B12 (200.0-944.0) pg/mL Microbiology - Last 24 Hours (Table) 09/07/21 16:00 Blood Culture - Preliminary Blood No Growth after 24 hours 09/07/21 16:11 Blood Culture - Preliminary Blood No Growth after 24 hours Assessment and Plan (1) Diabetic foot ulcer Current Visit: Yes Status: Acute Code(s): E11.621 - TYPE 2 DIABETES MELLITUS WITH FOOT ULCER; L97.509 - NON-PRESSURE CHRONIC ULCER OTH PRT UNSP FOOT W UNSP SEVERITY SNOMED Code(s): 096407112 (2) Gangrene of toe of left foot Current Visit: No Status: Acute Code(s): I96 - GANGRENE, NOT ELSEWHERE CLASSIFIED SNOMED Code(s): 20092306421211953 Plan: 1patient with left diabetic foot infection with gangrene involving the left 2n d-5th toe which is turning into a wet gangrene and concern for second infection with elevated white count and abnormal x-ray will need to call for the gram- positive as well as gram-negative pathogen. Patient is status post left foot transmetatarsal completed on 09/08/2021 2patient to continue the patient on vancomycin while watching kidney function closely and Unasyn 3 g every 8 hours.
[2021-09-09 21:51] LABS: Glucose,Whole Blood 110 mg/dL (75-99)
[2021-09-09] MEDS: INSULIN DETEMIR (LEVEMIR) 100 UNIT/ML SYR SQ SCH (21:56)
[2021-09-10] MEDS ORDERED: AMPICILLIN-SULBACTAM 3 GM in SODIUM CHLORIDE 0.9% 100 ML IVPB SCH ×2
[2021-09-10] MEDS: LACTATED RINGERS 1,000 ML IV SCH ×2 (05:41→21:42)
[2021-09-10 07:32] LABS: Glucose,Whole Blood 84 mg/dL (75-99)
[2021-09-10] MEDS: INSULIN ASPART (NovoLOG) 100 UNIT/ML VIAL SQ SCH ×7 (07:46→21:40)
[2021-09-10] MEDS: FUROSEMIDE 20 MG TAB PO SCH (09:16)
[2021-09-10] MEDS: hydrALAZINE HCL 25 MG TAB PO SCH ×2 (09:16→17:27)
[2021-09-10] MEDS: FERROUS SULFATE 325 MG TAB PO SCH ×2 (09:22→17:27)
[2021-09-10] MEDS: CLOPIDOGREL 75 MG TAB PO SCH (09:22)
[2021-09-10] MEDS: DOCUSATE 100 MG CAP PO SCH (09:22)
[2021-09-10] MEDS: CYANOCOBALAMIN 500 MCG TAB PO SCH (09:22)
[2021-09-10] MEDS: RIVAROXABAN 15 MG TAB PO SCH (09:23)
[2021-09-10 10:06] LABS: Basophils # (A) 0.01 X 10*3/uL (0.00-0.10); Basophils % (A) 0.1 %; Eosinophils # (A) 0.27 X 10*3/uL (0.04-0.35); Eosinophils % (A) 2.8 %; Lymphocytes # (A) 1.39 X 10*3/uL (0.90-5.00); Lymphocytes % (A) 14.3 %; Monocytes # (A) 1.12 X 10*3/uL (0.20-1.00); Monocytes % (A) 11.5 %; NRBC Per 100 WBC 0 /100 WBCS (0.0-0.0); Neutrophils # (A) 6.76 X 10*3/uL (1.80-7.70); Neutrophils % (A) 69.3 %
[2021-09-10 10:07] LABS: HCT 21.8 % (37.2-46.3); HGB 6.9 g/dL (12.0-15.0); MCH 29.1 pg (27.0-32.0); MCHC 31.7 g/dL (32.0-37.0); Mean Platelet Volume 9.8 fL (9.5-12.2); Platelet Count 297 X 10*3/uL (140-440); RBC 2.37 X 10*6/uL (4.10-5.20); RDW 14.6 % (11.5-14.5); WBC 9.74 X 10*3/uL (4.50-10.00)
[2021-09-10 11:18] LABS: Magnesium 1.8 mg/dL (1.5-2.4)
[2021-09-10 11:37] LABS: African American GFR (CKD) 34.9 (60.0-200.0); Anion Gap 11.5 mmol/L (10.00-18.00); BUN/Creat Ratio 16.69 Ratio (12.00-20.00); Blood Urea Nitrogen 26.7 mg/dL (9.0-27.0); Calcium 9.1 mg/dL (8.7-10.3); Carbon Dioxide 23.5 mmol/L (20.0-27.5); Non-African American GFR(CKD) 30.1 (60.0-200.0); Potassium 3.8 mmol/L (3.5-5.5)
[2021-09-10 11:41] LABS: Glucose,Whole Blood 270 mg/dL (75-99)
[2021-09-10] MEDS: AMPICILLIN-SULBACTAM 3 GM in SODIUM CHLORIDE 0.9% 100 ML IVPB SCH (12:37)
--- NOTE | 2021-09-10 13:38 | P.PN ---
Subjective Progress Note Date: 09/10/21 The patient is an 81-year-old female who follows in the office with Dr. Ureña, who is currently admitted to the hospital with severe PAD. The patient underwent left transmetatarsal amputation secondary to gangrene. Cardiology was consulted postoperatively for 3 second pauses overnight. The patient has a known history of persistent atrial fibrillation and is not currently on any AV baljeet blocking agents. The patient was interviewed and examined lying comfortably in bed. She states she had no issues overnight. She feels well and states she has been up ambulating to the restroom. No chest pain or chest pressure. No dizziness or lightheadedness. She states she's never had any syncope. GENERAL: Well-appearing, well-nourished and in no acute distress. NECK: Supple without JVD or thyromegaly. LUNGS: Breath sounds diminished to auscultation bilaterally. Respiration equal and unlabored. No wheezes, rales or rhonchi. HEART: Regular rate and rhythm without murmurs, rubs or gallops. S1 and S2 heard. EXTREMITIES: Normal range of motion, no edema. No clubbing or cyanosis. No peripheral pulses. Wound dressing in place VITALS: Blood pressure 102/51, pulse 54, temp 98.6F, respiratory rate 16, SpO2 99% on room air TELEMETRY: Persistent atrial fibrillation. Heart rate in the 40s to 50s overnight. Occasional 3 second pauses. LABS: WBC 9.7, hemoglobin 6.9, hematocrit 21.8, platelet 297, sodium 133, potassium 3.8, BUN 26, creatinine 1.6, magnesium 1.8 IMPRESSION: Gangrene of the left foot status post transmetatarsal amputation Persistent atrial fibrillation, on novel anticoagulation Sick sinus syndrome Hypertension Diabetes Chronic kidney disease Dyslipidemia PAD Anemia PLAN: No change in medication regimen Follow-up with primary ring sewer Dr. Ureña outpatient No further recommendations from the cardiac standpoint. We'll follow only on an as-needed basis. I am dictating on behalf of Dr Aadm Esquivel's history/physical and assessment/plan. Objective - Vital Signs Vital signs: Vital Signs Temp 98.6 F 09/10/21 07:41 Pulse 54 L 09/10/21 07:41 Resp 16 09/10/21 07:41 BP 102/51 09/10/21 07:41 Pulse Ox 99 09/10/21 07:41 Intake & Output 09/09/21 09/10/21 09/10/21 18:59 06:59 18:59 Intake Total 1150 1350 Balance 1150 1350 Intake: IV 750 900 Lactated Ringers 1,000 ml 750 900 @ 75 mls/hr IV .[id number] [facility] Rx#:[id number] Intake, IV Titration 150 Amount Ampicillin-Sulbactam 3 gm 100 In Sodium Chloride 0.9% 100 ml @ 200 mls/hr IVPB Q12H [facility] Rx#:[id number] Cefepime 1 gm In Sodium 50 Chloride 0.9% 50 ml @ 12. 5 mls/hr IVPB Q12HR [facility] Rx#:[id number] Oral 400 300 Other: Voiding Method External Catheter External Catheter # Voids 3 3 - Labs CBC & Chem 7: 09/10/21 05:03 09/10/21 05:03 Labs: Abnormal Lab Results - Last 24 Hours (Table) 09/08/21 09/09/21 09/09/21 Range/Units 16:33 11:42 16:45 RBC (4.10-5.20) X 10*6/uL Hgb (12.0-15.0) g/dL Hct (37.2-46.3) % MCHC (32.0-37.0) g/dL RDW (11.5-14.5) % Immature Gran # (0.00-0.04) X 10*3/uL Monocytes # (0.20-1.00) X 10*3/uL POC Glucose (mg/dL) 289 H 335 H (75-99) mg/dL Crossmatch See Detail 09/09/21 09/10/21 Range/Units 21:50 05:03 RBC 2.37 L (4.10-5.20) X 10*6/uL Hgb 6.9 L* (12.0-15.0) g/dL Hct 21.8 L (37.2-46.3) % MCHC 31.7 L (32.0-37.0) g/dL RDW 14.6 H (11.5-14.5) % Immature Gran # 0.19 H (0.00-0.04) X 10*3/uL Monocytes # 1.12 H (0.20-1.00) X 10*3/uL POC Glucose (mg/dL) 110 H (75-99) mg/dL Crossmatch Microbiology - Last 24 Hours (Table) 09/07/21 16:00 Blood Culture - Preliminary Blood No Growth after 48 hours 09/07/21 16:11 Blood Culture - Preliminary Blood No Growth after 48 hours
[2021-09-10] MEDS ORDERED: VANCOMYCIN TROUGH DUE 1 EACH MISC MISCELLANE ONE (15:00)
[2021-09-10 16:10] LABS: Glucose,Whole Blood 142 mg/dL (75-99)
[2021-09-10] MEDS: VANCOMYCIN 1,250 MG in SODIUM CHLORIDE 0.9% 250 ML IVPB SCH (17:27)
[2021-09-10 20:49] LABS: Glucose,Whole Blood 271 mg/dL (75-99)
[2021-09-10] MEDS: INSULIN DETEMIR (LEVEMIR) 100 UNIT/ML SYR SQ SCH (21:40)
--- NOTE | 2021-09-10 23:35 | P.PN ---
Subjective Progress Note Date: 09/10/21 Principal diagnosis: Left foot gangrene Patient is 81-year-old female admitted to the hospital with gangrenous toe #2-5 in this patient who is status post left foot transmetatarsal amputation completed on 09/08/2021, patient to have underlying history of diabetes mellitus with the postsurgical wound to the lower abdominal area and right lateral malleolus. On today's evaluation that is 09/10/2021 the patient remains to be afebrile, patient denies pain to the left foot transmetatarsal amputation site, the patient denies any chest pain shortness of breath or cough no nausea no vomiting no abdominal pain and diarrhea Objective - Vital Signs Vital signs: Vital Signs Temp 98.7 F 09/10/21 14:09 Pulse 59 L 09/10/21 14:09 Resp 15 09/10/21 14:09 BP 177/81 09/10/21 14:09 Pulse Ox 100 09/10/21 14:02 Intake & Output 09/09/21 09/10/21 09/10/21 18:59 06:59 18:59 Intake Total 1150 1350 0 Balance 1150 1350 0 Intake: IV 750 900 Lactated Ringers 1,000 ml 750 900 @ 75 mls/hr IV .[id number] [facility] Rx#:[id number] Intake, IV Titration 150 Amount Ampicillin-Sulbactam 3 gm 100 In Sodium Chloride 0.9% 100 ml @ 200 mls/hr IVPB Q12H [facility] Rx#:[id number] Cefepime 1 gm In Sodium 50 Chloride 0.9% 50 ml @ 12. 5 mls/hr IVPB Q12HR [facility] Rx#:[id number] Oral 400 300 Blood Product 0 Rc As-1 Unit 0 [id number] Other: Voiding Method External Catheter External Catheter # Voids 3 3 - Exam GENERAL DESCRIPTION: An elderly female lying in bed in no distress RESPIRATORY SYSTEM: Unlabored breathing , decreased breath sounds at bases HEART: S1 S2 regular rate and rhythm , ABDOMEN: Soft , no tenderness EXTREMITIES: Left foot transmetatarsal amputation site wound is currently dressed no drainage and the dressing - Labs CBC & Chem 7: 09/10/21 05:03 09/10/21 05:03 Labs: Abnormal Lab Results - Last 24 Hours (Table) 09/08/21 09/09/21 09/09/21 Range/Units 16:33 16:45 21:50 RBC (4.10-5.20) X 10*6/uL Hgb (12.0-15.0) g/dL Hct (37.2-46.3) % MCHC (32.0-37.0) g/dL RDW (11.5-14.5) % Immature Gran # (0.00-0.04) X 10*3/uL Monocytes # (0.20-1.00) X 10*3/uL Sodium (135-145) mmol/L Creatinine (0.6-1.5) mg/dL Est GFR (CKD-EPI)AfAm (60.0-200.0) Est GFR (CKD-EPI)NonAf (60.0-200.0) POC Glucose (mg/dL) 335 H 110 H (75-99) mg/dL Crossmatch See Detail 09/10/21 09/10/21 09/10/21 Range/Units 05:03 05:03 11:40 RBC 2.37 L (4.10-5.20) X 10*6/uL Hgb 6.9 L* (12.0-15.0) g/dL Hct 21.8 L (37.2-46.3) % MCHC 31.7 L (32.0-37.0) g/dL RDW 14.6 H (11.5-14.5) % Immature Gran # 0.19 H (0.00-0.04) X 10*3/uL Monocytes # 1.12 H (0.20-1.00) X 10*3/uL Sodium 133 L (135-145) mmol/L Creatinine 1.6 H (0.6-1.5) mg/dL Est GFR (CKD-EPI)AfAm 34.9 L (60.0-200.0) Est GFR (CKD-EPI)NonAf 30.1 L (60.0-200.0) POC Glucose (mg/dL) 270 H (75-99) mg/dL Crossmatch Microbiology - Last 24 Hours (Table) 09/07/21 16:00 Blood Culture - Preliminary Blood No Growth after 48 hours 09/07/21 16:11 Blood Culture - Preliminary Blood No Growth after 48 hours Assessment and Plan (1) Diabetic foot ulcer Current Visit: Yes Status: Acute Code(s): E11.621 - TYPE 2 DIABETES MELLITUS WITH FOOT ULCER; L97.509 - NON-PRESSURE CHRONIC ULCER OTH PRT UNSP FOOT W UNSP SEVERITY SNOMED Code(s): 267951420 (2) Gangrene of toe of left foot Current Visit: No Status: Acute Code(s): I96 - GANGRENE, NOT ELSEWHERE CLA SSIFIED SNOMED Code(s): 20825597230906190 Plan: 1patient with left diabetic foot infection with gangrene involving the left 2nd-5th toe which is turning into a wet gangrene and concern for second infection with elevated white count and abnormal x-ray will need to call for the gram-positive as well as gram-negative pathogen. Patient is status post left foot transmetatarsal completed on 09/08/2021 2patient is slowly clinical improvement and will continue the patient on vancomycin while watching kidney function closely and Unasyn 3 g every 8 hours. 3-local wound care to the abdominal wound with the Hydrofera Blue dressing and local wound care to the right lateral medial wound with Aquacel silver dressing this was explained to the replanting machine crewman the bedside and multiple questions were answered Time with Patient: Less than 30
[2021-09-11] MEDS: AMPICILLIN-SULBACTAM 3 GM in SODIUM CHLORIDE 0.9% 100 ML IVPB SCH ×2 (00:11→12:29)
[2021-09-11 07:19] LABS: Glucose,Whole Blood 93 mg/dL (75-99)
[2021-09-11 07:26] LABS: Basophils % (A) 0 %; Eosinophils # (A) 0.4 k/uL (0-0.7); Eosinophils % (A) 4 %; HCT 26.7 % (34.0-46.0); HGB 8.5 gm/dL (11.4-16.0); Lymphocytes % (A) 11 %; MCH 29.6 pg (25.0-35.0); MCHC 31.7 g/dL (31.0-37.0); MCV 93.6 fL (80.0-100.0); Monocytes # (A) 0.7 k/uL (0-1.0); Monocytes % (A) 8 %; Neutrophils % (A) 74 %; Platelet Count 317 k/uL (150-450); RBC 2.86 m/uL (3.80-5.40); RDW 14.4 % (11.5-15.5); WBC 9.4 k/uL (3.8-10.6)
[2021-09-11] MEDS: INSULIN ASPART (NovoLOG) 100 UNIT/ML VIAL SQ SCH ×7 (07:26→21:08)
--- NOTE | 2021-09-11 07:47 | P.PN ---
Subjective Progress Note Date: 09/11/21 Principal diagnosis: Status post transmetatarsal amputation left foot. Patient was evaluated today. She was awake alert cooperative and in no apparent distress. She denied any significant foot or leg pain. Objective - Vital Signs Vital signs: Vital Signs Temp 98.3 F 09/11/21 02:17 Pulse 100 09/11/21 02:17 Resp 15 09/11/21 02:17 BP 163/76 09/11/21 02:17 Pulse Ox 90 L 09/11/21 02:17 Intake & Output 09/10/21 09/11/21 09/11/21 18:59 06:59 18:59 Intake Total 310 Output Total 1800 Balance -1490 Intake: Blood Product 310 Rc As-1 Unit 310 [id number] Output: Urine 1800 Other: Voiding Method External Catheter # Voids 500 # Bowel Movements 0 - Exam The transmetatarsal amputation wound remains intact. There is no drainage. The posterior flap appears viable. - Labs CBC & Chem 7: 09/11/21 07:13 09/10/21 05:03 Labs: Abnormal Lab Results - Last 24 Hours (Table) 09/08/21 09/10/21 09/10/21 Range/Units 16:33 05:03 05:03 RBC 2.37 L (4.10-5.20) X 10*6/uL Hgb 6.9 L* (12.0-15.0) g/dL Hct 21.8 L (37.2-46.3) % MCHC 31.7 L (32.0-37.0) g/dL RDW 14.6 H (11.5-14.5) % Immature Gran # 0.19 H (0.00-0.04) X 10*3/uL Monocytes # 1.12 H (0.20-1.00) X 10*3/uL Sodium 133 L (135-145) mmol/L Creatinine 1.6 H (0.6-1.5) mg/dL Est GFR (CKD-EPI)AfAm 34.9 L (60.0-200.0) Est GFR (CKD-EPI)NonAf 30.1 L (60.0-200.0) POC Glucose (mg/dL) (75-99) mg/dL Crossmatch See Detail 09/10/21 09/10/2109/10/22 Range/Units 11:40 16:08 20:46 RBC (4.10-5.20) X 10*6/uL Hgb (12.0-15.0) g/dL Hct (37.2-46.3) % MCHC (32.0-37.0) g/dL RDW (11.5-14.5) % Immature Gran # (0.00-0.04) X 10*3/uL Monocytes # (0.20-1.00) X 10*3/uL Sodium (135-145) mmol/L Creatinine (0.6-1.5) mg/dL Est GFR (CKD-EPI)AfAm (60.0-200.0) Est GFR (CKD-EPI)NonAf (60.0-200.0) POC Glucose (mg/dL) 270 H 142 H 271 H (75-99) mg/dL Crossmatch 09/11/21 Range/Units 07:13 RBC 2.86 L (4.10-5.20) X 10*6/uL Hgb 8.5 L (12.0-15.0) g/dL Hct 26.7 L (37.2-46.3) % MCHC (32.0-37.0) g/dL RDW (11.5-14.5) % Immature Gran # (0.00-0.04) X 10*3/uL Monocytes # (0.20-1.00) X 10*3/uL Sodium (135-145) mmol/L Creatinine (0.6-1.5) mg/dL Est GFR (CKD-EPI)AfAm (60.0-200.0) Est GFR (CKD-EPI)NonAf (60.0-200.0) POC Glucose (mg/dL) (75-99) mg/dL Crossmatch Microbiology - Last 24 Hours (Table) 09/07/21 16:00 Blood Culture - Preliminary Blood No Growth after 72 hours 09/07/21 16:11 Blood Culture - Preliminary Blood No Growth after 72 hours Assessment and Plan Assessment: Status post left transmetatarsal amputation. Plan: Continue local wound care. I would anticipate this wound would go on to heal with offloading and local wound care. Time with Patient: Less than 30
[2021-09-11] MEDS: FERROUS SULFATE 325 MG TAB PO SCH ×2 (08:37→18:23)
[2021-09-11] MEDS: RIVAROXABAN 15 MG TAB PO SCH (08:37)
[2021-09-11] MEDS: hydrALAZINE HCL 25 MG TAB PO SCH ×2 (08:37→21:08)
[2021-09-11] MEDS: CYANOCOBALAMIN 500 MCG TAB PO SCH (08:37)
[2021-09-11] MEDS: FUROSEMIDE 20 MG TAB PO SCH (08:37)
[2021-09-11] MEDS: DOCUSATE 100 MG CAP PO SCH (08:37)
[2021-09-11] MEDS: CLOPIDOGREL 75 MG TAB PO SCH (08:37)
[2021-09-11 11:35] LABS: Glucose,Whole Blood 204 mg/dL (75-99)
[2021-09-11] MEDS: VANCOMYCIN 1,250 MG in SODIUM CHLORIDE 0.9% 250 ML IVPB SCH (16:19)
[2021-09-11 17:18] LABS: Glucose,Whole Blood 255 mg/dL (75-99)
[2021-09-11] MEDS: LACTATED RINGERS 1,000 ML IV SCH (21:07)
[2021-09-11] MEDS: INSULIN DETEMIR (LEVEMIR) 100 UNIT/ML SYR SQ SCH (21:09)
[2021-09-11 21:21] LABS: Glucose,Whole Blood 301 mg/dL (75-99)
--- NOTE | 2021-09-11 23:46 | P.PN ---
Subjective Progress Note Date: 09/11/21 Principal diagnosis: Left foot gangrene Patient is 81-year-old female admitted to the hospital with gangrenous toe #2-5 in this patient who is status post left foot transmetatarsal amputation completed on 09/08/2021, patient to have underlying history of diabetes mellitus with the postsurgical wound to the lower abdominal area and right lateral malleolus. On today's evaluation that is 09/11/2021 the patient denies any fever or chills, patient denies pain to the left foot transmetatarsal amputation site, the patient denies any chest pain shortness of breath or cough, the patient denies nausea no vomiting no abdominal pain and diarrhea Objective - Vital Signs Vital signs: Vital Signs Temp 98.5 F 09/11/21 08:00 Pulse 56 L 09/11/21 08:00 Resp 16 09/11/21 08:00 BP 156/62 09/11/21 08:00 Pulse Ox 100 09/11/21 08:00 Intake & Output 09/10/21 09/11/21 09/11/21 18:59 06:59 18:59 Intake Total 310 296 Output Total 1800 Balance -1490 296 Intake: Oral 296 Blood Product 310 Rc As-1 Unit 310 [id number] Output: Urine 1800 Other: Voiding Method External Catheter External Catheter # Voids 500 # Bowel Movements 0 - Exam GENERAL DESCRIPTION: An elderly female lying in bed in no distress RESPIRATORY SYSTEM: Unlabored breathing , decreased breath sounds at bases HEART: S1 S2 regular rate and rhythm , ABDOMEN: Soft , no tenderness EXTREMITIES: Left foot transmetatarsal amputation site wound is currently dressed no drainage and the dressing - Labs CBC & Chem 7: 09/11/21 07:13 09/10/21 05:03 Labs: Abnormal Lab Results - Last 24 Hours (Table) 09/08/21 09/10/21 09/10/21 Range/Units 16:33 16:08 20:46 RBC (3.80-5.40) m/uL Hgb (11.4-16.0) gm/dL Hct (34.0-46.0) % POC Glucose (mg/dL) 142 H 271 H (75-99) mg/dL Crossmatch See Detail 09/11/21 09/11/21 Range/Units 07:13 11:33 RBC 2.86 L (3.80-5.40) m/uL Hgb 8.5 L (11.4-16.0) gm/dL Hct 26.7 L (34.0-46.0) % POC Glucose (mg/dL) 204 H (75-99) mg/dL Crossmatch Microbiology - Last 24 Hours (Table) 09/07/21 16:00 Blood Culture - Preliminary Blood No Growth after 72 hours 09/07/21 16:11 Blood Culture - Preliminary Blood No Growth after 72 hours Assessment and Plan (1) Diabetic foot ulcer Current Visit: Yes Status: Acute Code(s): E11.621 - TYPE 2 DIABETES MELLITUS WITH FOOT ULCER; L97.509 - NON-PRESSURE CHRONIC ULCER OTH PRT UNSP FOOT W UNSP SEVERITY SNOMED Code(s): 564863206 (2) Gangrene of toe of left foot Current Visit: No Status: Acute Code(s): I96 - GANGRENE, NOT ELSEWHERE CLASSIFIED SNOMED Code(s): 84269721022388263 Plan: 1patient with left diabetic foot infection with gangrene involving the left 2nd-5th toe which is turning into a wet gangrene and concern for second infection with elevated white count and abnormal x-ray will need to call for the gram-positive as well as gram-negative pathogen. Patient is status post left foot transmetatarsal completed on 09/08/2021 2patient did have some clinical improvement and will continue the patient on Unasyn 3 g every 8 hours however we'll discontinue vancomycin to decrease risk of nephro toxicity. 3-local wound care to the abdominal wound with the Hydrofera Blue dressing and local wound care to the right lateral medial wound with Aquacel silver dressing this was explained to the RN
[2021-09-12] MEDS: AMPICILLIN-SULBACTAM 3 GM in SODIUM CHLORIDE 0.9% 100 ML IVPB SCH ×2 (00:07→19:29)
[2021-09-12] MEDS: LACTATED RINGERS 1,000 ML IV SCH ×2 (00:07→17:47)
--- NOTE | 2021-09-12 01:39 | P.PN ---
Subjective Progress Note Date: 09/10/21 this is a pleasant 81 yo female with paste medical history of Atrial Fibrillation, Diabetes Mellitus, Hypertension, Hyperlipidemia, chronic kidney disease Patient was sent for left foot infection that failed outpatient therapy. At outpatient she was on Bactrim. She has this foot infection for more than one month when started like a little pink toe with callus that got injured after trauma and got infected and start getting bigger, she was following up with infectious disease team Dr. Campos, however he referred her today to the hospital for failure of outpatient therapy. Also she has a wound in the right lower quadrant abdominal wall from old hematoma when she was on subcu heparin when she was in the hospital, she status post evacuation and a dressing in place with no significant surrounding ce llulitis. she denies chest pain or dyspnea. No abdominal pain. No change in urine or bowel habits. No fever. No smoking, alcohol or illicit drugs. Hemodynamically stable Labs showed leukocytosis of 14.4, hemoglobin 9.0. Platelet count is normal. INR is 1.5 Sodium 129, creatinine 1.47 which is at baseline. Glucose is 259, corrected sodium for hyperglycemia with 132-133. Foot x-ray: Findings consistent with gas forming organisms within soft tissue. Distal fifth metatarsal fracture In the emergency room patient received IV vancomycin and Zosyn and normal saline 09/08/2021 Patient clinically the same, she still has infection in her left foot with foul- smelling. Surgical team on the case and the planned for debridement later on today. Discussed with the bedside nurse and Lovenox is kept on hold. Abdomen without patient denies any other symptoms. She has low-grade fever and currently she is kept on cefepime and IV vancomycin. Creatinine is stable 1.5. Hemoglobin 7.1. We will do anemia workup. Sodium improved to 133. 09/09/2021 Patient is status post debridement of her left. Postoperatively she was sitting in chair fully awake and comfortable eating better than yesterday, no specific symptoms at [facility]. She is hemodynamically stable, low-grade fever is expected which is improved now. WBC common down to 10.5. Hemoglobin 7.0, creatinine is stable at 1.5, sodium normalized 133. She remains on IV cefepime and IV vancomycin. [place] be resumed as well as Plavix from tomorrow per surgery team. Her glucose on the high side resume her oral regimen of Levemir she was on 12 units at home and 6 units with meals of NovoLog. Will resume the Levemir 12 units at NovoLog 5 units with meals for now. 09/10/2021 Patient is currently resting in the bed. No complaints of fever or chills. No chest pain or shortness of breath. No headache or dizziness lightheadedness. Pain is controlled. No nausea vomiting abdominal pain or diarrhea. Patient is being cannula antibiotics in the form of Unasyn ID is on board. Patient was seen by cardiology due to atrial fibrillation possible syncope. Laboratory data showed WBC 9.7, hemoglobin 6.9 and platelets 297 sodium 133 potassium 3.8 chloride 98 BUN 26.7 creatinine 1.6. Magnesium 1.8. Blood sugar is fairly controlled. Current medications reviewed. Objective - Vital Signs Vital signs: Vital Signs Temp 98.1 F 09/10/21 16:00 Pulse 62 09/10/21 16:00 Resp 15 09/10/21 16:00 BP 177/81 09/10/21 16:00 Pulse Ox 100 09/10/21 16:00 Intake & Output 09/10/21 09/10/21 09/11/21 06:59 18:59 06:59 Intake Total 1350 310 Output Total 1800 Balance 1350 -1490 Intake: IV 900 Lactated Ringers 1,000 ml 900 @ 75 mls/hr IV .[id number] [facility] Rx#:[id number] Intake, IV Titration 150 Amount Ampicillin-Sulbactam 3 gm 100 In Sodium Chloride 0.9% 100 ml @ 200 mls/hr IVPB Q12H [facility] Rx#:[id number] Cefepime 1 gm In Sodium 50 Chloride 0.9% 50 ml @ 12. 5 mls/hr IVPB Q12HR [facility] Rx#:[id number] Oral 300 Blood Product 310 Rc As-1 Unit 310 [id number] Output: Urine 1800 Other: Voiding Method External Catheter External Catheter # Voids 3 - Exam - Exam GENERAL: The patient is alert and oriented x3, not in any acute distress. Well developed, well nourished. Generally weak HEENT: Pupils are round and equally reacting to light. EOMI. No scleral icterus. No conjunctival pallor. Normocephalic, atraumatic. No pharyngeal erythema. No thyromegaly. CARDIOVASCULAR: S1 and S2 present. No murmurs, rubs, or gallops. PULMONARY: Chest is clear to auscultation, no wheezing or crackles. -ABDOMEN: Soft, nontender, nondistended, normoactive bowel sounds. No palpable organomegaly. RLQ wound , dressing in place MUSCULOSKELETAL: No joint swelling or deformity. -EXTREMITIES: No cyanosis, clubbing, or pedal edema. Left foot surgical wound , improving with dressing in place NEUROLOGICAL: Gross neurological examination did not reveal any focal deficits. SKIN: No rashes. No petechiae - Labs CBC & Chem 7: 09/11/21 07:13 09/10/21 05:03 Labs: Abnormal Lab Results - Last 24 Hours (Table) 09/08/21 09/10/21 09/10/21 Range/Units 16:33 05:03 05:03 RBC 2.37 L (4.10-5.20) X 10*6/uL Hgb 6.9 L* (12.0-15.0) g/dL Hct 21.8 L (37.2-46.3) % MCHC 31.7 L (32.0-37.0) g/dL RDW 14.6 H (11.5-14.5) % Immature Gran # 0.19 H (0.00-0.04) X 10*3/uL Monocytes # 1.12 H (0.20-1.00) X 10*3/uL Sodium 133 L (135-145) mmol/L Creatinine 1.6 H (0.6-1.5) mg/dL Est GFR (CKD-EPI)AfAm 34.9 L (60.0-200.0) Est GFR (CKD-EPI)NonAf 30.1 L (60.0-200.0) POC Glucose (mg/dL) (75-99) mg/dL Crossmatch See Detail 09/10/21 09/10/21 09/10/21 Range/Units 11:40 16:08 20:46 RBC (4.10-5.20) X 10*6/uL Hgb (12.0-15.0) g/dL Hct (37.2-46.3) % MCHC (32.0-37.0) g/dL RDW (11.5-14.5) % Immature Gran # (0.00-0.04) X 10*3/uL Monocytes # (0.20-1.00) X 10*3/uL Sodium (135-145) mmol/L Creatinine (0.6-1.5) mg/dL Est GFR (CKD-EPI)AfAm (60.0-200.0) Est GFR (CKD-EPI)NonAf (60.0-200.0) POC Glucose (mg/dL) 270 H 142 H 271 H (75-99) mg/dL Crossmatch Microbiology - Last 24 Hours (Table) 09/07/21 16:00 Blood Culture - Preliminary Blood No Growth after 72 hours 09/07/21 16:11 Blood Culture - Preliminary Blood No Growth after 72 hours Assessment and Plan Assessment: Left foot diabetic wound, failed outpatient therapy, this post debridement on 09/09. Distal fifth metatarsal fracture related to diabetic foot infection, status post debridement as above Healing right lower quadrant abdominal wall wound secondary to recent hematoma status post evacuation Atrial Fibrillation, on Xarelto on home Diabetes Mellitus Hypertension Hyperlipidemia chronic kidney disease, stage IIIB. Mostly diabetic nephropathy Plan: This is a pleasant 81 years old female who presents with diabetic left foot ulcer and infection. Continue with antibiotics as per ID team. was on cefepime and IV vancomycin. changed to Unasyn Vascular surgery team consulted already the patient and did debridement for her Resume Xarelto and Plavix Continue with insulin Levemir 12 units and insulin sliding scale a(resume short-acting insulin at 5 units in the state of home dose of 6 units with meals) Labs and medication were reviewed.. Monitor lytes and vitals. DVT and GI prophylaxis. Further recommendations as per clinical course of the patient DVT prophylaxis: On Xarelto GI Prophylaxis: Pepcid PT/OT: Pending Prognosis is guarded Time with Patient: Greater than 30
--- NOTE | 2021-09-12 01:41 | P.PN ---
Subjective Progress Note Date: 09/11/21 this is a pleasant 81 yo female with paste medical history of Atrial Fibrillation, Diabetes Mellitus, Hypertension, Hyperlipidemia, chronic kidney disease Patient was sent for left foot infection that failed outpatient therapy. At outpatient she was on Bactrim. She has this foot infection for more than one month when started like a little pink toe with callus that got injured after trauma and got infected and start getting bigger, she was following up with infectious disease team Dr. Campos, however he referred her today to the hospital for failure of outpatient therapy. Also she has a wound in the right lower quadrant abdominal wall from old hematoma when she was on subcu heparin when she was in the hospital, she status post evacuation and a dressing in place with no significant surrounding ce llulitis. she denies chest pain or dyspnea. No abdominal pain. No change in urine or bowel habits. No fever. No smoking, alcohol or illicit drugs. Hemodynamically stable Labs showed leukocytosis of 14.4, hemoglobin 9.0. Platelet count is normal. INR is 1.5 Sodium 129, creatinine 1.47 which is at baseline. Glucose is 259, corrected sodium for hyperglycemia with 132-133. Foot x-ray: Findings consistent with gas forming organisms within soft tissue. Distal fifth metatarsal fracture In the emergency room patient received IV vancomycin and Zosyn and normal saline 09/08/2021 Patient clinically the same, she still has infection in her left foot with foul- smelling. Surgical team on the case and the planned for debridement later on today. Discussed with the bedside nurse and Lovenox is kept on hold. Abdomen without patient denies any other symptoms. She has low-grade fever and currently she is kept on cefepime and IV vancomycin. Creatinine is stable 1.5. Hemoglobin 7.1. We will do anemia workup. Sodium improved to 133. 09/09/2021 Patient is status post debridement of her left. Postoperatively she was sitting in chair fully awake and comfortable eating better than yesterday, no specific symptoms at [facility]. She is hemodynamically stable, low-grade fever is expected which is improved now. WBC common down to 10.5. Hemoglobin 7.0, creatinine is stable at 1.5, sodium normalized 133. She remains on IV cefepime and IV vancomycin. [place] be resumed as well as Plavix from tomorrow per surgery team. Her glucose on the high side resume her oral regimen of Levemir she was on 12 units at home and 6 units with meals of NovoLog. Will resume the Levemir 12 units at NovoLog 5 units with meals for now. 09/10/2021 Patient is currently resting in the bed. No complaints of fever or chills. No chest pain or shortness of breath. No headache or dizziness lightheadedness. Pain is controlled. No nausea vomiting abdominal pain or diarrhea. Patient is being cannula antibiotics in the form of Unasyn ID is on board. Patient was seen by cardiology due to atrial fibrillation possible syncope. Laboratory data showed WBC 9.7, hemoglobin 6.9 and platelets 297 sodium 133 potassium 3.8 chloride 98 BUN 26.7 creatinine 1.6. Magnesium 1.8. Blood sugar is fairly controlled. 09 11 2021 Patient is currently resting in bed. Awake alert [place] x3. No fever no chill s. Denies any pain at the amputation site of the left foot. No chest pain. No headache or dizziness or lightheadedness. No nausea vomiting or diarrhea. Patient is being current Unasyn. ID is on board. Level data reviewed. Current medications reviewed. Objective - Vital Signs Vital signs: Vital Signs Temp 98.1 F 09/11/21 14:52 Pulse 65 09/11/21 14:52 Resp 16 09/11/21 14:52 BP 158/52 09/11/21 14:52 Pulse Ox 99 09/11/21 14:52 Intake & Output 09/10/21 09/11/21 09/11/21 18:59 06:59 18:59 Intake Total 310 296 Output Total 1800 Balance -1490 296 Intake: Oral 296 Blood Product 310 Rc As-1 Unit 310 [id number] Output: Urine 1800 Other: Voiding Method External Catheter External Catheter # Voids 500 # Bowel Movements 0 - Exam - Exam GENERAL: The patient is alert and oriented x3, not in any acute distress. Well developed, well nourished. Generally weak HEENT: Pupils are round and equally reacting to light. EOMI. No scleral icterus. No conjunctival pallor. Normocephalic, atraumatic. No pharyngeal erythema. No thyromegaly. CARDIOVASCULAR: S1 and S2 present. No murmurs, rubs, or gallops. PULMONARY: Chest is clear to auscultation, no wheezing or crackles. -ABDOMEN: Soft, nontender, nondistended, normoactive bowel sounds. No palpable organomegaly. RLQ wound , dressing in place MUSCULOSKELETAL: No joint swelling or deformity. -EXTREMITIES: No cyanosis, clubbing, or pedal edema. Left foot surgical wound , improving with dressing in place NEUROLOGICAL: Gross neurological examination did not reveal any focal deficits. SKIN: No rashes. No petechiae - Labs CBC & Chem 7: 09/11/21 07:13 09/10/21 05:03 Labs: Abnormal Lab Results - Last 24 Hours (Table) 09/08/21 09/10/21 09/10/21 Range/Units 16:33 16:08 20:46 RBC (3.80-5.40) m/uL Hgb (11.4-16.0) gm/dL Hct (34.0-46.0) % POC Glucose (mg/dL) 142 H 271 H (75-99) mg/dL Crossmatch See Detail 09/11/21 09/11/21 Range/Units 07:13 11:33 RBC 2.86 L (3.80-5.40) m/uL Hgb 8.5 L (11.4-16.0) gm/dL Hct 26.7 L (34.0-46.0) % POC Glucose (mg/dL) 204 H (75-99) mg/dL Crossmatch Microbiology - Last 24 Hours (Table) 09/07/21 16:00 Blood Culture - Preliminary Blood No Growth after 72 hours 09/07/21 16:11 Blood Culture - Preliminary Blood No Growth after 72 hours Assessment and Plan Assessment: Left foot diabetic wound, failed outpatient therapy, this post debridement on 09/09. Distal fifth metatarsal fracture related to diabetic foot infection, status post debridement as above Healing right lower quadrant abdominal wall wound secondary to recent hematoma status post evacuation Atrial Fibrillation, on Xarelto on home Diabetes Mellitus Hypertension Hyperlipidemia chronic kidney disease, stage IIIB. Mostly diabetic nephropathy Plan: This is a pleasant 81 years old female who presents with diabetic left foot ulcer and infection. Continue with antibiotics as per ID team. was on cefepime and IV vancomycin. changed to Unasyn Vascular surgery team consulted already the patient and did debridement for her Resume Xarelto and Plavix Continue with insulin Levemir 12 units and insulin sliding scale a(resume short-acting insulin at 5 units in the state of home dose of 6 units with meals) Labs and medication were reviewed.. Monitor lytes and vitals. DVT and GI prophylaxis. Further recommendations as per clinical course of the patient DVT prophylaxis: On Xarelto GI Prophylaxis: Pepcid PT/OT: Pending Prognosis is guarded Time with Patient: Greater than 30
[2021-09-12 06:18] LABS: African American GFR (CKD) 44 (>60 ml/min/1.73 sqM); Anion Gap 8 mmol/L; Blood Urea Nitrogen 25 mg/dL (7-17); Calcium 8.9 mg/dL (8.4-10.2); Carbon Dioxide 25 mmol/L (22-30); Chloride 99 mmol/L (98-107); Non-African American GFR(CKD) 38 (>60 ml/min/1.73 sqM); Potassium 3.8 mmol/L (3.5-5.1); Sodium 132 mmol/L (137-145)
[2021-09-12 06:32] LABS: Glucose 44 mg/dL (74-99)
[2021-09-12 10:45] LABS: Glucose,Whole Blood 95 mg/dL (75-99)
[2021-09-12 11:01] LABS: Glucose,Whole Blood 91 mg/dL (75-99)
[2021-09-12 11:48] LABS: Glucose,Whole Blood 221 mg/dL (75-99)
--- NOTE | 2021-09-12 12:04 | P.PN ---
Subjective Progress Note Date: 09/12/21 Principal diagnosis: Gangrene left foot, osteomyelitis The patient was seen and examined today lying in bed. She is postop day #4 for left transmetatarsal amputation. She is without any acute complaints. She denies any pain to the left lower extremity. She states she has been up and ambulating with assistance with physical therapy. She's been afebrile. Objective - Vital Signs Vital signs: Vital Signs Temp 97.8 F 09/12/21 02:44 Pulse 63 09/12/21 02:44 Resp 16 09/12/21 02:44 BP 137/63 09/12/21 02:44 Pulse Ox 98 09/12/21 02:44 Intake & Output 09/11/21 09/12/21 09/12/21 18:59 06:59 18:59 Intake Total 532 Balance 532 Intake: Oral 532 Other: Voiding Method External Catheter # Voids 2 # Bowel Movements 1 - Exam General appearance: The patient is alert, oriented, appears in no acute distress. HET: Head is normocephalic and atraumatic. Pupils are equal and reactive. Neck: Supple without lymphadenopathy. Trachea midline. No audible carotid bruit. Heart: S1 S2. Irregular rate and rhythm. Lungs: Clear to auscultation bilaterally. Abdomen: Soft, nontender, nondistended. Extremities: Left lower extremity transmetatarsal amputation site well approximated with sutures. Warm to the touch. Surrounding tissue pink, there is a small dime size area on the plantar lateral surface with some necrotic tissue. Neurological: No focal deficits. Strength and sensation are grossly intact. - Labs CBC & Chem 7: 09/11/21 07:13 09/12/21 03:13 Labs: Abnormal Lab Results - Last 24 Hours (Table) 09/11/21 09/11/21 09/12/21 Range/Units 17:17 21:04 03:13 Sodium 132 L (137-145) mmol/L BUN 25 H (7-17) mg/dL Creatinine 1.32 H (0.52-1.04) mg/dL Glucose 44 L* (74-99) mg/dL POC Glucose (mg/dL) 255 H 301 H (75-99) mg/dL 09/12/21 Range/Units 11:47 Sodium (137-145) mmol/L BUN (7-17) mg/dL Creatinine (0.52-1.04) mg/dL Glucose (74-99) mg/dL POC Glucose (mg/dL) 221 H (75-99) mg/dL Microbiology - Last 24 Hours (Table) 09/07/21 16:00 Blood Culture - Preliminary Blood No Growth after 96 hours 09/07/21 16:11 Blood Culture - Preliminary Blood No Growth after 96 hours Assessment and Plan Assessment: 1. Postop day #4 left transmetatarsal amputation 2. Gangrene left foot/2-4 toes 3. Osteomyelitis 4. Hypokalemia 5. Diabetes mellitus 6. History atrial fibrillation 7. Hypertension Plan: 1. Continue antibiotics per recommendations from infectious disease 2. Diet as tolerated 3. May resume anticoagulation and Plavix 4. Daily dressing change with Adaptic, 4 x 4 and Kerlix Thank you for this consultation, from a vascular surgical standpoint the patient is cleared for discharge. The impression and plan of care has been dictated as directed. Dr. Don I performed a history and examination of this patient, discussed the same with the dictator. I agree with the dictator's note ,documented as a scribe. Any additional findings or plans will be noted.
[2021-09-12] MEDS ORDERED: LACTULOSE 20 GM/30 ML CUP PO ONE (12:50)
--- NOTE | 2021-09-12 12:53 | P.PN ---
Subjective Progress Note Date: 09/12/21 this is a pleasant 81 yo female with paste medical history of Atrial Fibrillation, Diabetes Mellitus, Hypertension, Hyperlipidemia, chronic kidney disease Patient was sent for left foot infection that failed outpatient therapy. At outpatient she was on Bactrim. She has this foot infection for more than one month when started like a little pink toe with callus that got injured after trauma and got infected and start getting bigger, she was following up with infectious disease team Dr. Campos, however he referred her today to the hospital for failure of outpatient therapy. Also she has a wound in the right lower quadrant abdominal wall from old hematoma when she was on subcu heparin when she was in the hospital, she status post evacuation and a dressing in place with no significant surrounding ce llulitis. she denies chest pain or dyspnea. No abdominal pain. No change in urine or bowel habits. No fever. No smoking, alcohol or illicit drugs. Hemodynamically stable Labs showed leukocytosis of 14.4, hemoglobin 9.0. Platelet count is normal. INR is 1.5 Sodium 129, creatinine 1.47 which is at baseline. Glucose is 259, corrected sodium for hyperglycemia with 132-133. Foot x-ray: Findings consistent with gas forming organisms within soft tissue. Distal fifth metatarsal fracture In the emergency room patient received IV vancomycin and Zosyn and normal saline 09/08/2021 Patient clinically the same, she still has infection in her left foot with foul- smelling. Surgical team on the case and the planned for debridement later on today. Discussed with the bedside nurse and Lovenox is kept on hold. Abdomen without patient denies any other symptoms. She has low-grade fever and currently she is kept on cefepime and IV vancomycin. Creatinine is stable 1.5. Hemoglobin 7.1. We will do anemia workup. Sodium improved to 133. 09/09/2021 Patient is status post debridement of her left. Postoperatively she was sitting in chair fully awake and comfortable eating better than yesterday, no specific symptoms at [facility]. She is hemodynamically stable, low-grade fever is expected which is improved now. WBC common down to 10.5. Hemoglobin 7.0, creatinine is stable at 1.5, sodium normalized 133. She remains on IV cefepime and IV vancomycin. [place] be resumed as well as Plavix from tomorrow per surgery team. Her glucose on the high side resume her oral regimen of Levemir she was on 12 units at home and 6 units with meals of NovoLog. Will resume the Levemir 12 units at NovoLog 5 units with meals for now. 09/10/2021 Patient is currently resting in the bed. No complaints of fever or chills. No chest pain or shortness of breath. No headache or dizziness lightheadedness. Pain is controlled. No nausea vomiting abdominal pain or diarrhea. Patient is being cannula antibiotics in the form of Unasyn ID is on board. Patient was seen by cardiology due to atrial fibrillation possible syncope. Laboratory data showed WBC 9.7, hemoglobin 6.9 and platelets 297 sodium 133 potassium 3.8 chloride 98 BUN 26.7 creatinine 1.6. Magnesium 1.8. Blood sugar is fairly controlled. 09 11 2021 Patient is currently resting in bed. Awake alert [place] x3. No fever no chill s. Denies any pain at the amputation site of the left foot. No chest pain. No headache or dizziness or lightheadedness. No nausea vomiting or diarrhea. Patient is being current Unasyn. ID is on board. Level data reviewed. 09/12/2021 Patient evaluated today lying in bed. She is post op day #4 left transmetatarsal amputation. No acute complaints over night. States she has not had a BM in 5 da ys, however has not been eating very much. Abdomen is soft with normoactive bowel sounds, no distention. Review of Systems Constitutional: Denied any fatigue denied any fever. Cardio vascular: denied any chest pain, palpitations Gastrointestinal: denied any nausea, vomiting, diarrhea, reports no BM in 5 days, denies abdominal pain Pulmonary: Denied any shortness of breath cough Neurologic denied any new focal deficits All inpatient medications were reviewed and appropriate changes in these m edications as dictated in the interval history and assessment and plan. PHYSICAL EXAMINATION: GENERAL: The patient is alert and oriented x3, not in any acute distress. Well developed, well nourished. HEENT: Pupils are round and equally reacting to light. EOMI. No scleral icterus. No conjunctival pallor. Normocephalic, atraumatic. No pharyngeal erythema. No thyromegaly. CARDIOVASCULAR: S1 and S2 present. No murmurs, rubs, or gallops. PULMONARY: Chest is clear to auscultation, no wheezing or crackles. ABDOMEN: Soft, nontender, nondistended, normoactive bowel sounds. No palpable organomegaly. MUSCULOSKELETAL: No joint swelling or deformity. EXTREMITIES: No cyanosis, clubbing, or pedal edema. NEUROLOGICAL: Gross neurological examination did not reveal any focal deficits. SKIN: No rashes. Assessment and plan Assessment Post operative day #4 transmetatarsal amputation secondary to osteomyelitis from nonhealing diabetic wound. Left foot diabetic wound, failed outpatient therapy, status post debridement on 09/09. Healing right lower quadrant abdominal wall wound secondary to recent hematoma status post evacuation Atrial Fibrillation, on Xarelto on home Diabetes Mellitus Hypertension Hyperlipidemia chronic kidney disease, stage IIIB. Mostly diabetic nephropathy GI Prophylaxis DVT Prophylaxis Full Code Continue Continue local wound care to left foot per vascular Continue local wound care to abdomen per ID Continue IV antibiotics Repeat labs tomorrow Bowel Regimine PT/OT consultation Plan for discharge home tomorrow The impression and plan of care has been dictated by Estelita Hurst, Nurse Practitioner as directed. Dr. Denise MD I have performed a history and physical examination and medical decision making of this patient, discussed the same with the dictator, and agree with the dictators assessment and plan as written, documented as a scribe. Based on total visit time, I have performed more than 50% of this visit. Objective - Vital Signs Vital signs: Vital Signs Temp 97.8 F 09/12/21 02:44 Pulse 63 09/12/21 02:44 Resp 16 09/12/21 02:44 BP 137/63 09/12/21 02:44 Pulse Ox 98 09/12/21 02:44 Intake & Output 09/11/21 09/12/21 09/12/21 18:59 06:59 18:59 Intake Total 532 Balance 532 Intake: Oral 532 Other: Voiding Method External Catheter # Voids 2 # Bowel Movements 1 - Labs CBC & Chem 7: 09/11/21 07:13 09/12/21 03:13 Labs: Abnormal Lab Results - Last 24 Hours (Table) 09/11/21 09/11/21 09/11/21 Range/Units 11:33 17:17 21:04 Sodium (137-145) mmol/L BUN (7-17) mg/dL Creatinine (0.52-1.04) mg/dL Glucose (74-99) mg/dL POC Glucose (mg/dL) 204 H 255 H 301 H (75-99) mg/dL 09/12/21 Range/Units 03:13 Sodium 132 L (137-145) mmol/L BUN 25 H (7-17) mg/dL Creatinine 1.32 H (0.52-1.04) mg/dL Glucose 44 L* (74-99) mg/dL POC Glucose (mg/dL) (75-99) mg/dL Microbiology - Last 24 Hours (Table) 09/07/21 16:00 Blood Culture - Preliminary Blood No Growth after 96 hours 09/07/21 16:11 Blood Culture - Preliminary Blood No Growth after 96 hours Assessment and Plan Time with Patient: Less than 30
[2021-09-12 13:15] LABS: Basophils % (A) 0 %; Eosinophils # (A) 0.2 k/uL (0-0.7); Eosinophils % (A) 3 %; HCT 28.4 % (34.0-46.0); HGB 8.9 gm/dL (11.4-16.0); Hypochromasia Slight; Lymphocytes # (A) 0.8 k/uL (1.0-4.8); Lymphocytes % (A) 8 %; MCH 29.7 pg (25.0-35.0); MCHC 31.3 g/dL (31.0-37.0); MCV 94.8 fL (80.0-100.0); Mean Platelet Volume 8.1; Monocytes # (A) 0.5 k/uL (0-1.0); Monocytes % (A) 5 %; Neutrophils # (A) 7.5 k/uL (1.3-7.7); Neutrophils % (A) 81 %; Platelet Count 385 k/uL (150-450); RBC 2.99 m/uL (3.80-5.40); RDW 14.7 % (11.5-15.5); WBC 9.3 k/uL (3.8-10.6)
[2021-09-12] MEDS: hydrALAZINE HCL 25 MG TAB PO SCH ×2 (14:31→22:19)
[2021-09-12] MEDS: CYANOCOBALAMIN 500 MCG TAB PO SCH (14:31)
[2021-09-12] MEDS: RIVAROXABAN 15 MG TAB PO SCH (14:31)
[2021-09-12] MEDS: DOCUSATE 100 MG CAP PO SCH (14:31)
[2021-09-12] MEDS: CLOPIDOGREL 75 MG TAB PO SCH (14:31)
[2021-09-12] MEDS: FUROSEMIDE 20 MG TAB PO SCH (14:31)
[2021-09-12] MEDS: INSULIN ASPART (NovoLOG) 100 UNIT/ML VIAL SQ SCH ×7 (14:31→22:19)
[2021-09-12] MEDS: FERROUS SULFATE 325 MG TAB PO SCH ×2 (14:32→17:55)
[2021-09-12 17:31] LABS: Glucose,Whole Blood 332 mg/dL (75-99)
[2021-09-12 21:07] LABS: Glucose,Whole Blood 314 mg/dL (75-99)
[2021-09-12] MEDS: INSULIN DETEMIR (LEVEMIR) 100 UNIT/ML SYR SQ SCH (22:19)
[2021-09-13] MEDS: LACTATED RINGERS 1,000 ML IV SCH ×3 (01:19→23:58)
[2021-09-13] MEDS: AMPICILLIN-SULBACTAM 3 GM in SODIUM CHLORIDE 0.9% 100 ML IVPB SCH ×3 (04:05→23:56)
[2021-09-13 07:19] LABS: Glucose,Whole Blood 67 mg/dL (75-99)
[2021-09-13] MEDS: INSULIN ASPART (NovoLOG) 100 UNIT/ML VIAL SQ SCH ×6 (07:32→21:46)
[2021-09-13 09:29] LABS: Anion Gap 13.6 mmol/L (10.00-18.00); BUN/Creat Ratio 15.86 Ratio (12.00-20.00); Blood Urea Nitrogen 22.2 mg/dL (9.0-27.0); Calcium 9.2 mg/dL (8.7-10.3); Carbon Dioxide 23.4 mmol/L (20.0-27.5); Magnesium 1.8 mg/dL (1.5-2.4); Non-African American GFR(CKD) 35.4 (60.0-200.0); Potassium 3.9 mmol/L (3.5-5.5)
[2021-09-13] MEDS: polyethylene glycoL 3350 17 GM POWD.PACK PO SCH (09:41)
[2021-09-13] MEDS: CLOPIDOGREL 75 MG TAB PO SCH (09:42)
[2021-09-13] MEDS: DOCUSATE 100 MG CAP PO SCH (09:42)
[2021-09-13] MEDS: FUROSEMIDE 20 MG TAB PO SCH (09:42)
[2021-09-13] MEDS: CYANOCOBALAMIN 500 MCG TAB PO SCH (09:42)
[2021-09-13] MEDS: hydrALAZINE HCL 25 MG TAB PO SCH ×2 (09:42→21:46)
[2021-09-13] MEDS: FERROUS SULFATE 325 MG TAB PO SCH ×2 (09:42→15:58)
[2021-09-13] MEDS: RIVAROXABAN 15 MG TAB PO SCH (09:43)
[2021-09-13 09:46] LABS: Glucose,Whole Blood 245 mg/dL (75-99)
--- NOTE | 2021-09-13 11:29 | P.PN ---
Subjective Progress Note Date: 09/13/21 Principal diagnosis: Gangrene left foot, osteomyelitis The patient was seen and examined today lying in bed. She is postop day #5 for left transmetatarsal amputation. She is without any acute complaints. She denies any pain to the left lower extremity. She states she has been up and ambulating with assistance with physical therapy, she is trying to offload as much as possible but is walking on left heel. She's been afebrile. Sounds like possible discharge today to [facility]. Objective - Vital Signs Vital signs: Vital Signs Temp 98.6 F 09/13/21 07:35 Pulse 54 L 09/13/21 07:35 Resp 17 09/13/21 07:35 BP 148/73 09/13/21 07:35 Pulse Ox 94 L 09/13/21 07:35 Intake & Output 09/12/21 09/13/21 09/13/21 18:59 06:59 18:59 Intake Total 1080 Output Total 450 Balance 1080 -450 Intake: Oral 1080 Output: Urine 450 Other: Voiding Method Bedside Commode Bedside Commode Bedside Commode Incontinent Incontinent Incontinent External Catheter External Catheter External Catheter # Voids 2 # Bowel Movements 1 2 - Exam General appearance: The patient is alert, oriented, appears in no acute distress. HET: Head is normocephalic and atraumatic. Pupils are equal and reactive. Neck: Supple without lymphadenopathy. Trachea midline. No audible carotid bruit. Heart: S1 S2. Irregular rate and rhythm. Lungs: Clear to auscultation bilaterally. Abdomen: Soft, nontender, nondistended. Extremities: Left lower extremity transmetatarsal amputation site well approximated with sutures. Warm to the touch. Surrounding tissue pink with areas of necrotic tissue, there is a small dime size area on the plantar lateral surface with some necrotic tissue. Multiphasic popliteal and posterior tibialis signal. Neurological: No focal deficits. Strength and sensation are grossly intact. - Labs CBC & Chem 7: 09/12/21 03:13 09/13/21 04:11 Labs: Abnormal Lab Results - Last 24 Hours (Table) 09/12/21 09/12/21 09/12/21 Range/Units 03:13 11:47 17:29 RBC 2.99 L (3.80-5.40) m/uL Hgb 8.9 L (11.4-16.0) gm/dL Hct 28.4 L (34.0-46.0) % Lymphocytes # 0.8 L (1.0-4.8) k/uL Sodium (135-145) mmol/L Est GFR (CKD-EPI)AfAm (60.0-200.0) Est GFR (CKD-EPI)NonAf (60.0-200.0) Glucose (70-110) mg/dL POC Glucose (mg/dL) 221 H 332 H (75-99) mg/dL 09/12/21 09/13/21 09/13/21 Range/Units 21:05 04:11 07:14 RBC (3.80-5.40) m/uL Hgb (11.4-16.0) gm/dL Hct (34.0-46.0) % Lymphocytes # (1.0-4.8) k/uL Sodium 134 L (135-145) mmol/L Est GFR (CKD-EPI)AfAm 41.0 L (60.0-200.0) Est GFR (CKD-EPI)NonAf 35.4 L (60.0-200.0) Glucose 58 L (70-110) mg/dL POC Glucose (mg/dL) 314 H 67 L (75-99) mg/dL 09/13/21 Range/Units 09:45 RBC (3.80-5.40) m/uL Hgb (11.4-16.0) gm/dL Hct (34.0-46.0) % Lymphocytes # (1.0-4.8) k/uL Sodium (135-145) mmol/L Est GFR (CKD-EPI)AfAm (60.0-200.0) Est GFR (CKD-EPI)NonAf (60.0-200.0) Glucose (70-110) mg/dL POC Glucose (mg/dL) 245 H (75-99) mg/dL Microbiology - Last 24 Hours (Table) 09/07/21 16:00 Blood Culture - Preliminary Blood No Growth after 120 hours 09/07/21 16:11 Blood Culture - Preliminary Blood No Growth after 120 hours Assessment and Plan Assessment: 1. Postop day #5 left transmetatarsal amputation 2. Gangrene left foot/2-4 toes 3. Osteomyelitis 4. Peripheral arterial disease 5. Hypokalemia 6. Diabetes mellitus 7. History atrial fibrillation 8. Hypertension Plan: 1. Continue antibiotics per recommendations from infectious disease 2. Diet as tolerated 3. May resume anticoagulation and Plavix 4. Daily dressing change with Adaptic, 4 x 4 and Kerlix 5. Discussed with patient try to have complete offloading on the left foot. Patient will need close follow-up with vascular surgery and wound careto continue monitoring for ischemic changes. Discussed again with patient there is a possibility patient may require a left [id number] amputation due to surgical site at healing. Thank you for this consultation, from a vascular surgical standpoint the patient is cleared for discharge. The impression and plan of care has been dictated as directed. Dr. Don I performed a history and examination of this patient, discussed the same with the dictator. I agree with the dictator's note ,documented as a scribe. Any additional findings or plans will be noted.
[2021-09-13 11:38] LABS: Glucose,Whole Blood 114 mg/dL (75-99)
[2021-09-13 13:45] VITALS: BMI 24.5
[2021-09-13] MEDS ORDERED: Magnesium Replacement Protocol 1 EACH MISC MISCELLANE PRN (13:55)
--- NOTE | 2021-09-13 14:01 | P.PN ---
Subjective Progress Note Date: 09/13/21 this is a pleasant 81 yo female with paste medical history of Atrial Fibrillation, Diabetes Mellitus, Hypertension, Hyperlipidemia, chronic kidney disease Patient was sent for left foot infection that failed outpatient therapy. At outpatient she was on Bactrim. She has this foot infection for more than one month when started like a little pink toe with callus that got injured after trauma and got infected and start getting bigger, she was following up with infectious disease team Dr. Campos, however he referred her today to the hospital for failure of outpatient therapy. Also she has a wound in the right lower quadrant abdominal wall from old hematoma when she was on subcu heparin when she was in the hospital, she status post evacuation and a dressing in place with no significant surrounding ce llulitis. she denies chest pain or dyspnea. No abdominal pain. No change in urine or bowel habits. No fever. No smoking, alcohol or illicit drugs. Hemodynamically stable Labs showed leukocytosis of 14.4, hemoglobin 9.0. Platelet count is normal. INR is 1.5 Sodium 129, creatinine 1.47 which is at baseline. Glucose is 259, corrected sodium for hyperglycemia with 132-133. Foot x-ray: Findings consistent with gas forming organisms within soft tissue. Distal fifth metatarsal fracture In the emergency room patient received IV vancomycin and Zosyn and normal saline 09/08/2021 Patient clinically the same, she still has infection in her left foot with foul- smelling. Surgical team on the case and the planned for debridement later on today. Discussed with the bedside nurse and Lovenox is kept on hold. Abdomen without patient denies any other symptoms. She has low-grade fever and currently she is kept on cefepime and IV vancomycin. Creatinine is stable 1.5. Hemoglobin 7.1. We will do anemia workup. Sodium improved to 133. 09/09/2021 Patient is status post debridement of her left. Postoperatively she was sitting in chair fully awake and comfortable eating better than yesterday, no specific symptoms at [facility]. She is hemodynamically stable, low-grade fever is expected which is improved now. WBC common down to 10.5. Hemoglobin 7.0, creatinine is stable at 1.5, sodium normalized 133. She remains on IV cefepime and IV vancomycin. [place] be resumed as well as Plavix from tomorrow per surgery team. Her glucose on the high side resume her oral regimen of Levemir she was on 12 units at home and 6 units with meals of NovoLog. Will resume the Levemir 12 units at NovoLog 5 units with meals for now. 09/10/2021 Patient is currently resting in the bed. No complaints of fever or chills. No chest pain or shortness of breath. No headache or dizziness lightheadedness. Pain is controlled. No nausea vomiting abdominal pain or diarrhea. Patient is being cannula antibiotics in the form of Unasyn ID is on board. Patient was seen by cardiology due to atrial fibrillation possible syncope. Laboratory data showed WBC 9.7, hemoglobin 6.9 and platelets 297 sodium 133 potassium 3.8 chloride 98 BUN 26.7 creatinine 1.6. Magnesium 1.8. Blood sugar is fairly controlled. 09 11 2021 Patient is currently resting in bed. Awake alert [place] x3. No fever no chill s. Denies any pain at the amputation site of the left foot. No chest pain. No headache or dizziness or lightheadedness. No nausea vomiting or diarrhea. Patient is being current Unasyn. ID is on board. Level data reviewed. 09/12/2021 Patient evaluated today lying in bed. She is post op day #4 left transmetatarsal amputation. No acute complaints over night. States she has not had a BM in 5 da ys, however has not been eating very much. Abdomen is soft with normoactive bowel sounds, no distention. 09/13/2021 Patient is evaluated today resting in bed with family members at bedside. No acute events overnight, denies pain. She is tolerating diet. Patient had a large bowel movement today, per nursing staff it was dark in color noted that patient does take oral iron twice a day. Patient to continue on bowel regimine with colace and miralax daily as needed. Cleared from vascular perspective for discharge. She is also have episodes of atrial fibrillation with slow ventricular rate, had dropped into the 30's throughout the evening. Cardiology has reviewed medications and discontinued amlodipine. Patient will follow up with Dr Ureña in the office after discharge. Sodium today 134, BUN 22.2, creat 1.4, blood glucose in the 100's. She had a hypoglycemic episode in the 40's at 0300 today. TSH within range at 0.767. She continues on IV antibiotics with oral recommendations pending from ID services. Review of Systems Constitutional: Denied any fatigue denied any fever. Cardio vascular: denied any chest pain, palpitations Gastrointestinal: denied any nausea, vomiting, diarrhea. Pulmonary: Denied any shortness of breath cough Neurologic denied any new focal deficits All inpatient medications were reviewed and appropriate changes in these medications as dictated in the interval history and assessment and plan. PHYSICAL EXAMINATION: GENERAL: The patient is alert and oriented x3, not in any acute distress. Well developed, well nourished. HEENT: Pupils are round and equally reacting to light. EOMI. No scleral icterus. No conjunctival pallor. Normocephalic, atraumatic. No pharyngeal erythema. No thyromegaly. CARDIOVASCULAR: S1 and S2 present. No murmurs, rubs, or gallops. PULMONARY: Chest is clear to auscultation, no wheezing or crackles. ABDOMEN: Soft, nontender, nondistended, normoactive bowel sounds. No palpable organomegaly. MUSCULOSKELETAL: No joint swelling or deformity. EXTREMITIES: No cyanosis, clubbing, or pedal edema. NEUROLOGICAL: Gross neurological examination did not reveal any focal deficits. SKIN: No rashes. Assessment and plan Assessment Post operative day #5 transmetatarsal amputation secondary to osteomyelitis from nonhealing diabetic wound. Left foot diabetic wound, failed outpatient therapy, status post debridement on 09/09. Healing right lower quadrant abdominal wall wound secondary to recent hematoma status post evacuation Atrial Fibrillation, on Xarelto on home Diabetes Mellitus Hypertension Hyperlipidemia chronic kidney disease, stage IIIB. Mostly diabetic nephropathy GI Prophylaxis DVT Prophylaxis Full Code Continue Continue local wound care to left foot per vascular Continue local wound care to abdomen per ID Continue IV antibiotics Bowel Regimine Adjust insulin to avoid hypoglycemia Discharge to rehab, authorization pending. The impression and plan of care has been dictated by Estelita Hurst, Nurse Practitioner as directed. Dr. Denise MD I have performed a history and physical examination and medical decision making of this patient, discussed the same with the dictator, and agree with the dictators assessment and plan as written, documented as a scribe. Based on total visit time, I have performed more than 50% of this visit. Objective - Vital Signs Vital signs: Vital Signs Temp 98.6 F 09/13/21 07:35 Pulse 54 L 09/13/21 07:35 Resp 17 09/13/21 07:35 BP 148/73 09/13/21 07:35 Pulse Ox 94 L 09/13/21 07:35 Intake & Output 09/12/21 09/13/21 09/13/21 18:59 06:59 18:59 Intake Total 1080 Output Total 450 Balance 1080 -450 Weight 68.946 kg Intake: Oral 1080 Output: Urine 450 Other: Voiding Method Bedside Commode Bedside Commode Bedside Commode Incontinent Incontinent Incontinent External Catheter External Catheter External Catheter # Voids 2 # Bowel Movements 1 2 - Labs CBC & Chem 7: 09/12/21 03:13 09/13/21 04:11 Labs: Abnormal Lab Results - Last 24 Hours (Table) 09/12/21 09/12/21 09/13/21 Range/Units 17:29 21:05 04:11 Sodium 134 L (135-145) mmol/L Est GFR (CKD-EPI)AfAm 41.0 L (60.0-200.0) Est GFR (CKD-EPI)NonAf 35.4 L (60.0-200.0) Glucose 58 L (70-110) mg/dL POC Glucose (mg/dL) 332 H 314 H (75-99) mg/dL 09/13/21 09/13/21 09/13/21 Range/Units 07:14 09:45 11:36 Sodium (135-145) mmol/L Est GFR (CKD-EPI)AfAm (60.0-200.0) Est GFR (CKD-EPI)NonAf (60.0-200.0) Glucose (70-110) mg/dL POC Glucose (mg/dL) 67 L 245 H 114 H (75-99) mg/dL Microbiology - Last 24 Hours (Table) 09/07/21 16:00 Blood Culture - Preliminary Blood No Growth after 120 hours 09/07/21 16:11 Blood Culture - Preliminary Blood No Growth after 120 hours Assessment and Plan Time with Patient: Less than 30
[2021-09-13] MEDS: MAGNESIUM SULFATE-D5W PMX 1 GM in DEXTROSE/WATER 1 100ML.BAG IVPB SCH ×2 (14:38→15:58)
[2021-09-13 16:41] LABS: Glucose,Whole Blood 276 mg/dL (75-99)
[2021-09-13 20:47] LABS: Glucose,Whole Blood 303 mg/dL (75-99)
[2021-09-13] MEDS ORDERED: INSULIN DETEMIR (LEVEMIR) 100 UNIT/ML SYR SQ SCH (21:00)
--- NOTE | 2021-09-14 00:12 | P.PN ---
Subjective Progress Note Date: 09/12/21 Principal diagnosis: Left foot gangrene Patient is 81-year-old female admitted to the hospital with gangrenous toe #2-5 in this patient who is status post left foot transmetatarsal amputation completed on 09/08/2021, patient to have underlying history of diabetes mellitus with the postsurgical wound to the lower abdominal area and right lateral malleolus. On today's evaluation that is 09/12/2021 the patient remains to be afebrile, patient denies pain to the left foot transmetatarsal amputation site, the patient denies any chest pain shortness of breath or cough, the patient denies nausea no vomiting no abdominal pain and diarrhea, patient currently did have slight discoloration at the transmetatarsal amputation site per of the nursing staff Objective - Vital Signs Vital signs: Vital Signs Temp 97.8 F 09/12/21 02:44 Pulse 63 09/12/21 02:44 Resp 16 09/12/21 02:44 BP 137/63 09/12/21 02:44 Pulse Ox 98 09/12/21 02:44 Intake & Output 09/11/21 09/12/21 09/12/21 18:59 06:59 18:59 Intake Total 532 Balance 532 Intake: Oral 532 Other: Voiding Method External Catheter # Voids 2 # Bowel Movements 1 - Exam GENERAL DESCRIPTION: An elderly female lying in bed in no distress RESPIRATORY SYSTEM: Unlabored breathing , decreased breath sounds at bases HEART: S1 S2 regular rate and rhythm , ABDOMEN: Soft , no tenderness EXTREMITIES: Left foot transmetatarsal amputation site wound is currently dressed no drainage and the dressing slight discoloration at the transmetatarsal amputation site per of the nursing staff - Labs CBC & Chem 7: 09/12/21 03:13 09/13/21 04:11 Labs: Abnormal Lab Results - Last 24 Hours (Table) 09/11/21 09/11/21 09/12/21 Range/Units 17:17 21:04 03:13 Sodium 132 L (137-145) mmol/L BUN 25 H (7-17) mg/dL Creatinine 1.32 H (0.52-1.04) mg/dL Glucose 44 L* (74-99) mg/dL POC Glucose (mg/dL) 255 H 301 H (75-99) mg/dL 09/12/21 Range/Units 11:47 Sodium (137-145) mmol/L BUN (7-17) mg/dL Creatinine (0.52-1.04) mg/dL Glucose (74-99) mg/dL POC Glucose (mg/dL) 221 H (75-99) mg/dL Microbiology - Last 24 Hours (Table) 09/07/21 16:00 Blood Culture - Preliminary Blood No Growth after 96 hours 09/07/21 16:11 Blood Culture - Preliminary Blood No Growth after 96 hours Assessment and Plan (1) Diabetic foot ulcer Current Visit: Yes Status: Acute Code(s): E11.621 - TYPE 2 DIABETES MELLITUS WITH FOOT ULCER; L97.509 - NON-PRESSURE CHRONIC ULCER OTH PRT UNSP FOOT W UNSP S [facility] SNOMED Code(s): 131226987 (2) Gangrene of toe of left foot Current Visit: No Status: Acute Code(s): I96 - GANGRENE, NOT ELSEWHERE CLASSIFIED SNOMED Code(s): 04613271805559979 Plan: 1patient with left diabetic foot infection with gangrene involving the left 2nd-5th toe which is turning into a wet gangrene and concern for second infection with elevated white count and abnormal x-ray will need to call for the gram-positive as well as gram-negative pathogen. Patient is status post left foot transmetatarsal completed on 09/08/2021 2patient did have some discoloration and the amputation site and will monitor closely, will continue the patient on Unasyn 3 g every 8 hours 3-local wound care to the abdominal wound with the Hydrofera Blue dressing and local wound care to the right lateral medial wound with Aquacel silver dressing this was explained to the RN Time with Patient: Less than 30
--- NOTE | 2021-09-14 00:15 | P.PN ---
Subjective Progress Note Date: 09/13/21 Principal diagnosis: Left foot gangrene Patient is 81-year-old female admitted to the hospital with gangrenous toe #2-5 in this patient who is status post left foot transmetatarsal amputation completed on 09/08/2021, patient to have underlying history of diabetes mellitus with the postsurgical wound to the lower abdominal area and right lateral malleolus. On today's evaluation that is 09/13/2021 the patient is afebrile, patient denies pain to the left foot transmetatarsal amputation site, the patient denies chest pain shortness of breath or cough, the patient denies nausea no vomiting no abdominal pain and diarrhea, patient did have a midline for IV antibiotics Objective - Vital Signs Vital signs: Vital Signs Temp 98.0 F 09/13/21 14:00 Pulse 60 09/13/21 14:00 Resp 17 09/13/21 14:00 BP 155/71 09/13/21 14:00 Pulse Ox 99 09/13/21 14:00 Intake & Output 09/12/21 09/13/21 09/13/21 18:59 06:59 18:59 Intake Total 1080 Output Total 450 Balance 1080 -450 Weight 68.946 kg Intake: Oral 1080 Output: Urine 450 Other: Voiding Method Bedside Commode Bedside Commode Bedside Commode Incontinent Incontinent Incontinent External Catheter External Catheter External Catheter # Voids 2 # Bowel Movements 1 2 - Exam GENERAL DESCRIPTION: An elderly female lying in bed in no distress RESPIRATORY SYSTEM: Unlabored breathing , decreased breath sounds at bases HEART: S1 S2 regular rate and rhythm , ABDOMEN: Soft , no tenderness EXTREMITIES: Left foot transmetatarsal amputation site did have some discoloration swelling and redness - Labs CBC & Chem 7: 09/12/21 03:13 09/13/21 04:11 Labs: Abnormal Lab Results - Last 24 Hours (Table) 09/12/21 09/12/21 09/13/21 Range/Units 17:29 21:05 04:11 Sodium 134 L (135-145) mmol/L Est GFR (CKD-EPI)AfAm 41.0 L (60.0-200.0) Est GFR (CKD-EPI)NonAf 35.4 L (60.0-200.0) Glucose 58 L (70-110) mg/dL POC Glucose (mg/dL) 332 H 314 H (75-99) mg/dL 09/13/21 09/13/21 09/13/21 Range/Units 07:14 09:45 11:36 Sodium (135-145) mmol/L Est GFR (CKD-EPI)AfAm (60.0-200.0) Est GFR (CKD-EPI)NonAf (60.0-200.0) Glucose (70-110) mg/dL POC Glucose (mg/dL) 67 L 245 H 114 H (75-99) mg/dL Microbiology - Last 24 Hours (Table) 09/07/21 16:00 Blood Culture - Preliminary Blood No Growth after 120 hours 09/07/21 16:11 Blood Culture - Preliminary Blood No Growth after 120 hours Assessment and Plan (1) Diabetic foot ulcer Current Visit: Yes Status: Acute Code(s): E11.621 - TYPE 2 DIABETES MELLITUS WITH FOOT ULCER; L97.509 - NON-PRESSURE CHRONIC ULCER OTH PRT UNSP FOOT W UNSP SEVERITY SNOMED Code(s): 489621791 (2) Gangrene of toe of left foot Current Visit: No Status: Acute Code(s): I96 - GANGRENE, NOT ELSEWHERE CLASSIFIED SNOMED Code(s): 63299354647310296 Plan: 1patient with left diabetic foot infection with gangrene involving the left 2nd-5th toe which is turning into a wet gangrene and concern for second infection with elevated white count and abnormal x-ray will need to call for the gram-positive as well as gram-negative pathogen. Patient is status post left foot transmetatarsal completed on 09/08/2021 2patient did have some discoloration at the amputation site and need to monitor closely for any worsening ischemia, there was evidence of cellulitis hence will recommend continue the patient on Unasyn 3 g every 8 hours for 2 weeks for which the patient already has a midline 3-local wound care to the abdominal wound with the Hydrofera Blue dressing and local wound care to the right lateral medial wound with Aquacel silver dressing this was explained to the RN
[2021-09-14 04:35] LABS: Glucose,Whole Blood 257 mg/dL (75-99)
[2021-09-14 07:05] LABS: Glucose,Whole Blood 228 mg/dL (75-99)
[2021-09-14 07:54] VITALS: RESP 18
[2021-09-14] MEDS ORDERED: INSULIN DETEMIR (LEVEMIR) 100 UNIT/ML SYR SQ SCH (09:00)
[2021-09-14] MEDS ORDERED: hydrALAZINE HCL 25 MG TAB PO STA (09:09)
[2021-09-14] MEDS: FERROUS SULFATE 325 MG TAB PO SCH (09:49)
[2021-09-14] MEDS: RIVAROXABAN 15 MG TAB PO SCH (09:49)
[2021-09-14] MEDS: FUROSEMIDE 20 MG TAB PO SCH (09:49)
[2021-09-14] MEDS: DOCUSATE 100 MG CAP PO SCH (09:49)
[2021-09-14] MEDS: CLOPIDOGREL 75 MG TAB PO SCH (09:49)
[2021-09-14] MEDS: CYANOCOBALAMIN 500 MCG TAB PO SCH (09:49)
[2021-09-14] MEDS: INSULIN ASPART (NovoLOG) 100 UNIT/ML VIAL SQ SCH ×2 (09:50→12:26)
[2021-09-14] MEDS: polyethylene glycoL 3350 17 GM POWD.PACK PO SCH (09:50)
[2021-09-14] MEDS: hydrALAZINE HCL 25 MG TAB PO SCH (10:11)
--- NOTE | 2021-09-14 10:45 | P.PN ---
Subjective Progress Note Date: 09/14/21 Principal diagnosis: Gangrene left foot, osteomyelitis The patient was seen and examined today sitting up in bed. She is postop day #6 for left transmetatarsal amputation. She is without any acute complaints. She denies any pain to the left lower extremity. She had a midline placed yesterday, infectious disease is recommending Unasyn to continue 2 weeks. She has been afebrile. Objective - Vital Signs Vital signs: Vital Signs Temp 98.1 F 09/14/21 07:52 Pulse 53 L 09/14/21 07:52 Resp 18 09/14/21 07:52 BP 138/69 09/14/21 07:52 Pulse Ox 100 09/14/21 07:52 Intake & Output 09/13/21 09/14/21 09/14/21 18:59 06:59 18:59 Output Total 1650 Balance -1650 Weight 68.946 kg Output: Urine 1650 Other: Voiding Method Bedside Commode Bedside Commode Incontinent Incontinent External Catheter External Catheter # Voids 2 # Bowel Movements 1 - Exam General appearance: The patient is alert, oriented, appears in no acute distress. HET: Head is normocephalic and atraumatic. Pupils are equal and reactive. Neck: Supple without lymphadenopathy. Trachea midline. No audible carotid bruit. Heart: S1 S2. Irregular rate and rhythm. Lungs: Clear to auscultation bilaterally. Abdomen: Soft, nontender, nondistended. Extremities: Left lower extremity transmetatarsal amputation site well approximated with sutures. Warm to the touch. Surrounding tissue pink with areas of necrotic tissue, there is a small dime size area on the plantar lateral surface with some necrotic tissue. Multiphasic popliteal and posterior tibialis signal. Neurological: No focal deficits. Strength and sensation are grossly intact. - Labs CBC & Chem 7: 09/12/21 03:13 09/13/21 04:11 Labs: Abnormal Lab Results - Last 24 Hours (Table) 09/13/21 09/13/21 09/13/21 Range/Units 11:36 16:40 20:45 POC Glucose (mg/dL) 114 H 276 H 303 H (75-99) mg/dL 09/14/21 09/14/21 Range/Units 04:33 07:01 POC Glucose (mg/dL) 257 H 228 H (75-99) mg/dL Microbiology - Last 24 Hours (Table) 09/07/21 16:00 Blood Culture - Final Blood No Growth after 144 hours 09/07/21 16:11 Blood Culture - Final Blood No Growth after 144 hours Assessment and Plan Assessment: 1. Postop day #6 left transmetatarsal amputation 2. Gangrene left foot/2-4 toes 3. Osteomyelitis 4. Peripheral arterial disease 5. Hypokalemia 6. Diabetes mellitus 7. History atrial fibrillation 8. Hypertension Plan: 1. Continue antibiotics per recommendations from infectious disease 2. Diet as tolerated 3. Continue Xarelto and Plavix 4. Daily dressing change with Adaptic, 4 x 4 and Kerlix 5. Discussed with patient try to have complete offloading on the left foot. Patient will need close follow-up with vascular surgery and wound care to continue monitoring for ischemic changes. Discussed again with patient there is a possibility patient may require a left [id number] amputation due to surgical site not healing. Patient verbalizes understanding. Thank you for this consultation, from a vascular surgical standpoint the patient is cleared for discharge. The impression and plan of care has been dictated as directed. Dr. Don I performed a history and examination of this patient, discussed the same with the dictator. I agree with the dictator's note ,documented as a scribe. Any additional findings or plans will be noted.
[2021-09-14 10:51] LABS: Eosinophils % (A) 4.4 %; HGB 8.4 g/dL (12.0-15.0); Lymphocytes % (A) 14.3 %; MCH 29.2 pg (27.0-32.0); MCHC 31.1 g/dL (32.0-37.0); MCV 93.8 fL (80.0-97.0); Mean Platelet Volume 9.8 fL (9.5-12.2); Monocytes % (A) 9.3 %; Neutrophils % (A) 67.5 %; Platelet Count 361 X 10*3/uL (140-440); RBC 2.88 X 10*6/uL (4.10-5.20); RDW 14.5 % (11.5-14.5); WBC 9.64 X 10*3/uL (4.50-10.00)
[2021-09-14 10:52] LABS: Basophils # (A) 0.04 X 10*3/uL (0.00-0.10); Basophils % (A) 0.4 %; Eosinophils # (A) 0.42 X 10*3/uL (0.04-0.35); Immature Grans, Automated 4.1 %; Lymphocytes # (A) 1.38 X 10*3/uL (0.90-5.00); NRBC Per 100 WBC 0 /100 WBCS (0.0-0.0)
[2021-09-14 11:13] LABS: Glucose,Whole Blood 338 mg/dL (75-99)
[2021-09-14 11:42] LABS: C Reactive Protein 6.7 mg/dL (0.00-0.80); Magnesium 2.3 mg/dL (1.5-2.4)
[2021-09-14] MEDS: AMPICILLIN-SULBACTAM 3 GM in SODIUM CHLORIDE 0.9% 100 ML IVPB SCH (12:26)
[2021-09-14 12:55] LABS: African American GFR (CKD) 30.3 (60.0-200.0); BUN/Creat Ratio 16.33 Ratio (12.00-20.00); Blood Urea Nitrogen 29.4 mg/dL (9.0-27.0); Calcium 9.4 mg/dL (8.7-10.3); Non-African American GFR(CKD) 26.1 (60.0-200.0); Potassium 4.3 mmol/L (3.5-5.5)
[2021-09-14 13:42] LABS: Erythrocyte Sedimentation Rate 77 mm/Hr (0-30)
--- NOTE | 2021-09-14 14:26 | P.DS ---
Providers Date of admission: 09/07/21 16:01 Attending physician: Abelardo Lopez MD Consults: 09/07/21 16:03 Consult Physician Routine Consulting Provider: Jenniffer Don Consult Reason/Comments: gangrene Do you want consulting provider notified?: Yes 09/07/21 17:13 Consult Physician Routine Consulting Provider: Jamila Campos Consult Reason/Comments: gangrene of the foot Do you want consulting provider notified?: Yes 09/08/21 20:30 Consult Physician Routine Consulting Provider: Adam Esquivel Consult Reason/Comments: Bradycardia post-op Do you want consulting provider notified?: Yes, Notify in am Primary care physician: Megha Garcia Hospital Course: Diagnoses: Post operative day #5 transmetatarsal amputation secondary to osteomyelitis from nonhealing diabetic wound. Left foot diabetic wound, failed outpatient therapy, status post debridement on 09/09. Healing right lower quadrant abdominal wall wound secondary to recent hematoma status post evacuation Atrial Fibrillation, on Xarelto on home Diabetes Mellitus Hypertension Hyperlipidemia chronic kidney disease, stage IIIB. Mostly diabetic nephropathy Hospital course: this is a pleasant 81 yo female with paste medical history of Atrial Fibrillation, Diabetes Mellitus, Hypertension, Hyperlipidemia, chronic kidney disease Patient was sent for left foot infection that failed outpatient therapy. At outpatient she was on Bactrim. She has this foot infection for more than one month when started like a little pink toe with callus that got injured after trauma and got infected and start getting bigger, she was following up with infectious disease team Dr. Campos, however she was referred ailure of outpatient therapy. patient evaluated by vascular surgery and infectious disease team and she was treated with IV antibiotic with IV Unasyn. Also she underwent debridement of her left foot of transverse metatarsal joint area. Postoperatively she was doing well, fully awake and oriented, denies any specific symptoms. She denies chest pain or dyspnea. No abdominal pain or nausea vomiting. No change in urine or bowel habits. No fever. She is hemodynamically stable. Call Center Coordinator also evaluated the patient and the recommend no further workup but the follow-up with her product marketing consultant Dr. Ureña as an outpatient. Patient was cleared for discharge by infectious disease and vascular surgery team. Add home patient was on hydralazine 50 mg 3 times a day, here in the hospital she was on 25 mg twice a day but increase the dose today to 50 mg twice a day. Discontinue Norvasc. Continue other medications and follow-up blood pressure closely. Also with lowered her Lantus 12 units down to 10 units and hurt her NovoLog 6 units with meals and continued with insulin sliding scale. Patient will be discharged on antibiotics per ID team , she will need unasy x 2 wk,(midline placed) Problems and management plan were discussed with the patient and he verbalized understanding and acceptance Patient was found stable and can be discharged ECF for rehab in guarded prognosis however he needs follow-up as an outpatient. Patient was instructed to follow up with PCP Dr. Garcia within one week and patient agrees Patient was instructed to follow up with Dr. Montaño in 1 week after discharge. Patient is high-risk for left below knee amputation Patient was instructed to follow up with product marketing consultant Dr. Ureña in [address] Bertrand in 2 weeks and she agrees Physical exam Gen: patient is a AAOx3, no distress CVS: S1-S2, RRR, no murmur Lungs: B/L CTA, no wheezing Abdomen: soft, no distention, no tenderness, positive bowel sounds -Extremity: no leg edema or induration. Status post debridement of the left forefoot, wound is healing with dressing is in place. Time spent more than 35 minutes Patient Condition at Discharge: Serious Plan - Discharge Summary Discharge Rx Participant: Yes New Discharge Prescriptions: New polyethylene glycoL 3350 [Miralax] 17 gm PO DAILY PRN packet PRN Reason: Constipation Ferrous Sulfate [Iron (65 MG Elemental)] 325 mg PO BID-W/MEALS tab Ampicillin-Sulbactam [Unasyn] 3 gm IVPB Q12H #28 each Continue Docusate Sodium [Dok] 100 mg PO DAILY Furosemide [Lasix] 20 mg PO DAILY Rivaroxaban [Xarelto] 15 mg PO DAILY Collagenase [Santyl Ointment] 1 applic TOPICAL DAILY 30 Days #1 tub Clopidogrel [Plavix] 75 mg PO DAILY 30 Days #30 tab Ferrous Fumarate 2 tab PO DAILY Simvastatin [Zocor] 20 mg PO DAILY Cyanocobalamin [Vitamin B-12] 500 mcg PO DAILY Insulin Lispro [Insulin Lispro Kwikpen U-100] See Protocol SQ AC-TID Acetaminophen Tab [Tylenol] 650 mg PO Q6HR PRN #30 tab PRN Reason: Mild Pain Or Fever > 100.5 Changed hydrALAZINE HCL [Apresoline] 50 mg PO BID 30 Days #60 tab Insulin Glargine [Lantus Vial] 10 unit SQ HS #0 Discontinued amLODIPine [Norvasc] 5 mg PO DAILY #30 tab Sulfamethox-Tmp 800-160Mg [Bactrim DS 800-160 mg] 1 tab PO Q12HR Insulin Lispro [Insulin Lispro Kwikpen U-100] 6 units SQ AC-TID Discharge Medication List Cyanocobalamin [Vitamin B-12] 500 mcg PO DAILY 06/28/21 [History] Docusate Sodium [Dok] 100 mg PO DAILY 06/28/21 [History] Furosemide [Lasix] 20 mg PO DAILY 06/28/21 [History] Insulin Lispro [Insulin Lispro Kwikpen U-100] See Protocol SQ AC-TID 06/28/21 [History] Rivaroxaban [Xarelto] 15 mg PO DAILY 06/28/21 [History] Simvastatin [Zocor] 20 mg PO DAILY 06/28/21 [History] Acetaminophen Tab [Tylenol] 650 mg PO Q6HR PRN #30 tab 07/06/21 [Rx] Collagenase [Santyl Ointment] 1 applic TOPICAL DAILY 30 Days #1 tub 07/06/21 [Rx] Clopidogrel [Plavix] 75 mg PO DAILY 30 Days #30 tab 07/25/21 [Rx] Ferrous Fumarate 2 tab PO DAILY 09/07/21 [History] Ampicillin-Sulbactam [Unasyn] 3 gm IVPB Q12H #28 each 09/14/21 [Rx] Ferrous Sulfate [Iron (65 MG Elemental)] 325 mg PO BID-W/MEALS tab 09/14/21 [Rx] Insulin Glargine [Lantus Vial] 10 unit SQ HS #0 09/14/21 [Rx] hydrALAZINE HCL [Apresoline] 50 mg PO BID 30 Days #60 tab 09/14/21 [Rx] polyethylene glycoL 3350 [Miralax] 17 gm PO DAILY PRN packet 09/14/21 [Rx] Follow up Appointment(s)/Referral(s): [facility], [NON-STAFF] - As Needed Praveena Ureña MD [STAFF PHYSICIAN] - 2 Weeks (cardilogist ) Santhosh Swan DO [Doctor of Osteopathic Medicine] - 09/28/21 9:45 am (with Dr. Don ) Megha Garcia DO [Primary Care Provider] - 1-2 days Tyler Bertrand DO [Doctor of Osteopathic Medicine] - 2 Weeks (lung doctor , for your lung nodule) [facility], [NON-STAFF] - As Needed Activity/Diet/Wound Care/Special Instructions: Offload non-weightbearing on left foot Daily dressing change and as needed with Adaptic dressing and Kerlix. Discharge Disposition: TRANSFER TO SNF/ECF
[2021-09-14 15:23] VITALS: BP 123/59; PULSE 105; TEMP 97.9
[2021-09-14] MEDS: LACTATED RINGERS 1,000 ML IV SCH (15:59)
[2021-09-14] MEDS ORDERED: hydrALAZINE HCL 50 MG TAB PO SCH (21:00)
== END 2021-09-14 16:20 | DRG 240 ==
LOC: EC 15:27 → 4SSUR 16:01
PROVIDERS: ADMIT Internal Medicine; ATTEND Internal Medicine
PROC: 0Y6N0ZB Detachment at Left Foot, Partial 2nd Ray, Open Approach (ICD-10-PCS; principal; 2021-09-08 14:50)
PROC: 0Y6N0ZD Detachment at Left Foot, Partial 4th Ray, Open Approach (ICD-10-PCS; principal; 2021-09-08 14:50)
PROC: 0Y6N0Z9 Detachment at Left Foot, Partial 1st Ray, Open Approach (ICD-10-PCS; principal; 2021-09-08 14:50)
PROC: 0Y6N0ZF Detachment at Left Foot, Partial 5th Ray, Open Approach (ICD-10-PCS; principal; 2021-09-08 14:50)
PROC: 0Y6N0ZC Detachment at Left Foot, Partial 3rd Ray, Open Approach (ICD-10-PCS; principal; 2021-09-08 14:50)
PROC: 30233N1 Transfusion of Nonautologous Red Blood Cells into Peripheral Vein, Percutaneous Approach (ICD-10-PCS; 2021-09-10)
PROC: 05HA33Z Insertion of Infusion Device into Left Brachial Vein, Percutaneous Approach (ICD-10-PCS; 2021-09-14 11:55)
DX: E11.52 Type 2 diabetes mellitus with diabetic peripheral angiopathy with gangrene (principal); I48.21 Permanent atrial fibrillation; M86.172 Other acute osteomyelitis, left ankle and foot; E11.22 Type 2 diabetes mellitus with diabetic chronic kidney disease; I12.9 Hypertensive chronic kidney disease with stage 1 through stage 4 chronic kidney disease, or unspecified chronic kidney disease; N18.32 Chronic kidney disease, stage 3b; D63.1 Anemia in chronic kidney disease; Z79.4 Long term (current) use of insulin; D72.829 Elevated white blood cell count, unspecified; E11.621 Type 2 diabetes mellitus with foot ulcer; E11.628 Type 2 diabetes mellitus with other skin complications; E11.65 Type 2 diabetes mellitus with hyperglycemia; E11.649 Type 2 diabetes mellitus with hypoglycemia without coma; E11.69 Type 2 diabetes mellitus with other specified complication; E78.5 Hyperlipidemia, unspecified; E87.6 Hypokalemia; I27.20 Pulmonary hypertension, unspecified; I08.1 Rheumatic disorders of both mitral and tricuspid valves; I45.10 Unspecified right bundle-branch block; I49.3 Ventricular premature depolarization; L08.9 Local infection of the skin and subcutaneous tissue, unspecified; L97.529 Non-pressure chronic ulcer of other part of left foot with unspecified severity; S92.352A Displaced fracture of fifth metatarsal bone, left foot, initial encounter for closed fracture; Z79.01 Long term (current) use of anticoagulants; Z79.02 Long term (current) use of antithrombotics/antiplatelets; Z79.899 Other long term (current) drug therapy; Z98.890 Other specified postprocedural states; Z90.49 Acquired absence of other specified parts of digestive tract; Z28.310 Unvaccinated for COVID-19; Z88.6 Allergy status to analgesic agent
CPT/HCPCS: 36410; 36415; 76937; 80048; 80076; 80202; 82607; 82728; 82746; 83036; 83540; 83550; 83605; 83735; 84443; 85025; 85045; 85610; 85652; 85730; 86140; 86850; 86900; 86901; 86920; 87040; 88307; 93005; 96365; 96366; 99285

== ENCOUNTER 2021-10-13 15:24 | Inpatient (IN) | payer MEDICARE ==
[2021-10-13 16:44] LABS: Glucose,Whole Blood 309 mg/dL (75-99)
[2021-10-13] MEDS ORDERED: VANCOMYCIN IV PER PHARMACY 1 EACH MISC MISCELLANE PRN (17:00)
[2021-10-13] MEDS ORDERED: AMPICILLIN-SULBACTAM 1.5 GM in SODIUM CHLORIDE 0.9% 50 ML IVPB ONE (17:20)
[2021-10-13] MEDS ORDERED: VANCOMYCIN 1,250 MG in SODIUM CHLORIDE 0.9% 250 ML IVPB ONE (18:00)
--- NOTE | 2021-10-13 22:49 | XR ---
EXAMINATION TYPE: XR foot complete LT DATE OF EXAM: 10/13/2021 COMPARISON: 09/07/2021 HISTORY: Cellulitis TECHNIQUE: Single view FINDINGS: There is amputation deformity of the left foot at the mid metatarsals. There is evidence fo r some soft tissue air around the proximal metatarsals. There is plantar and Achilles calcaneal spurr ing. There is vascular calcification. IMPRESSION: Limited exam appears to show some soft tissue air that could relate to cellulitis or gang issa. No focal bone destruction seen on this limited exam.
--- NOTE | 2021-10-13 22:57 | ED ---
Wound/Laceration HPI - General Chief Complaint: Wound/Laceration Stated Complaint: Wound infection Time Seen by Provider: 10/13/21 16:56 Source: patient, RN notes reviewed Mode of arrival: ambulatory Limitations: no limitations - History of Present Illness Initial Comments: 81-year-old female with a history of diabetes history of gangrene the left foot with amputation of all the toes on September 08 of this year who was sent in by Dr. Campos or inpatient evaluation and treatment as wound dehiscence suspected gangrene. Patient denies any pain she's had fever for last 2 days apparently. She was currently not on any oral antibiotics. No nausea no vomiting she has had decreased oral intake. No other current complaints or modifying factors - Related Data Home Medications Medication Instructions Recorded Confirmed Cyanocobalamin [Vitamin B-12] 500 mcg PO DAILY 06/28/21 09/07/21 Docusate Sodium [Dok] 100 mg PO DAILY 06/28/21 09/07/21 Furosemide [Lasix] 20 mg PO DAILY 06/28/21 09/07/21 Insulin Lispro [Insulin Lispro See Protocol SQ AC-TID 06/28/21 09/07/21 Kwikpen U-100] Rivaroxaban [Xarelto] 15 mg PO DAILY 06/28/21 09/07/21 Simvastatin [Zocor] 20 mg PO DAILY 06/28/21 09/07/21 Ferrous Fumarate 2 tab PO DAILY 09/07/21 09/07/21 Previous Rx's Medication Instructions Recorded Acetaminophen Tab [Tylenol] 650 mg PO Q6HR PRN #30 tab 07/06/21 Collagenase [Santyl Ointment] 1 applic TOPICAL DAILY 30 Days #1 07/06/21 tub Clopidogrel [Plavix] 75 mg PO DAILY 30 Days #30 tab 07/25/21 Ampicillin-Sulbactam [Unasyn] 3 gm IVPB Q12H #28 each 09/14/21 Ferrous Sulfate [Iron (65 MG 325 mg PO BID-W/MEALS tab 09/14/21 Elemental)] Insulin Glargine [Lantus Vial] 10 unit SQ HS #0 09/14/21 hydrALAZINE HCL [Apresoline] 50 mg PO BID 30 Days #60 tab 09/14/21 polyethylene glycoL 3350 [Miralax] 17 gm PO DAILY PRN packet 09/14/21 Allergies Allergy/AdvReac Type Severity Reaction Status Date / Time aspirin Allergy Anaphylaxis Verified 09/07/21 17:12 Review of Systems ROS Statement: Those systems with pertinent positive or pertinent negative responses have been documented in the HPI. ROS Other: All systems not noted in ROS Statement are negative. Past Medical History Past Medical History: Atrial Fibrillation, Diabetes Mellitus, Hypertension Additional Past Medical History / Comment(s): wound rt foot, wound to left pinkey, wound right abdominal wall History of Any Multi-Drug Resistant Organisms: None Reported Past Surgical History: Cholecystectomy Additional Past Surgical History / Comment(s): hematoma removal abdomen Past Anesthesia/Blood Transfusion Reactions: No Reported Reaction Past Psychological History: No Psychological Hx Reported Smoking Status: Never smoker Past Alcohol Use History: None Reported Past Drug Use History: None Reported - Past Family History Sister(s) Family Medical History: Cancer Brother(s) Family Medical History: Cancer General Exam - General Exam Comments Initial Comments: This is a well-developed well-nourished awake alert oriented 3 female Limitations: no limitations General appearance: alert, in no apparent distress Head exam: Present: atraumatic, normocephalic, normal inspection Eye exam: Present: normal appearance, PERRL, EOMI. Absent: scleral icterus, conjunctival injection, periorbital swelling ENT exam: Present: mucous membranes dry Neck exam: Present: normal inspection. Absent: tenderness, meningismus, lymphadenopathy Respiratory exam: Present: normal lung sounds bilaterally. Absent: respiratory distress, wheezes, rales, rhonchi, stridor Cardiovascular Exam: Present: regular rate, normal rhythm, normal heart sounds. Absent: systolic murmur, diastolic murmur, rubs, gallop, clicks GI/Abdominal exam: Present: soft, normal bowel sounds. Absent: distended, tenderness, guarding, rebound, rigid Extremities exam: Present: full ROM, normal capillary refill, other (Examination left foot and lower extremity demonstrates stasis dermatitis of the leg there is wound dehiscence of the left foot with some smell to it consistent with the gangrene there is breakdown of the suture line from the previous surgery. No o vert drainage. Patient has been using a wound VAC i). Absent: tenderness, pedal edema, joint swelling, calf tenderness Back exam: Present: normal inspection Neurological exam: Present: alert, oriented X3, CN II-XII intact Psychiatric exam: Present: normal affect, normal mood Skin exam: Present: warm, dry, intact, normal color. Absent: rash Course Vital Signs 10/13/21 16:39 Temperature 99.6 F Pulse Rate 65 Respiratory 18 Rate Blood Pressure 124/58 O2 Sat by Pulse 98 Oximetry Medical Decision Making - Medical Decision Making I did discuss findings with patient family also with Dr. Jain and Dr. Don. Patient be admitted patient's case as previously discussed with Dr. Campos - Lab Data Lab Results 10/13/21 Range/Units 16:43 POC Glucose (mg/dL) 309 H (75-99) mg/dL POC Glu Equipment Planner ID Martín Monroe - EKG Data -: EKG Interpreted by Me EKG Comments: fibrillation 58 QRS 149 QT since QTC 446/444 red bundle-branch block pattern with anterior fascicular block pulses criteria for LVH - Radiology Data Radiology results: report reviewed (Image reviewed evidence of previous amputation of the toes and left foot some gaseous formation seen(is unclear whether secondary to the wound dehiscence or new from infectious processes.), image reviewed Disposition Clinical Impression: Diabetic infection of left foot, Febrile illness, acute, Failure of outpatient treatment Disposition: ADMITTED IP TO THIS HOSP Condition: Fair Referrals: Megha Oneal DO [Primary Care Provider] - 1-2 days Decision Date: 10/13/21 Decision Time: 20:00
[2021-10-13] MEDS ORDERED: NALOXONE 0.4 MG/ML 1 ML VIAL IV PRN (23:36)
[2021-10-13] MEDS ORDERED: ACETAMINOPHEN TAB 325 MG TAB PO PRN (23:36)
[2021-10-13] MEDS ORDERED: ACETAMINOPHEN TAB 325 MG TAB PO STA (23:53)
[2021-10-14] MEDS: SODIUM CHLORIDE 0.9% 1,000 ML IV SCH ×4 (00:11→21:16)
[2021-10-14 00:21] LABS: Basophils # (A) 0.1 k/uL (0-0.2); Basophils % (A) 0 %; Eosinophils # (A) 0.2 k/uL (0-0.7); Eosinophils % (A) 1 %; HCT 34.1 % (34.0-46.0); Lymphocytes # (A) 1.5 k/uL (1.0-4.8); Lymphocytes % (A) 10 %; MCH 29.8 pg (25.0-35.0); MCHC 32.2 g/dL (31.0-37.0); MCV 92.6 fL (80.0-100.0); Mean Platelet Volume 7.9; Monocytes % (A) 6 %; Neutrophils # (A) 12.9 k/uL (1.3-7.7); Neutrophils % (A) 81 %; Platelet Count 216 k/uL (150-450); RBC 3.68 m/uL (3.80-5.40); RDW 14.2 % (11.5-15.5)
[2021-10-14 00:36] LABS: Calcium 11.5 mg/dL (8.4-10.2); Magnesium 1.7 mg/dL (1.6-2.3); Potassium 4.2 mmol/L (3.5-5.1); Total Bilirubin 0.6 mg/dL (0.2-1.3); Total Protein 8.5 g/dL (6.3-8.2)
[2021-10-14 02:09] LABS: INR 1.2 (<1.2); Partial Thromboplastin Time 28.5 sec (22.0-30.0); Prothrombin Time 12.5 sec (9.0-12.0)
[2021-10-14] MEDS: AMPICILLIN-SULBACTAM 1.5 GM in SODIUM CHLORIDE 0.9% 50 ML IVPB SCH ×5 (04:59→23:40)
[2021-10-14 05:48] LABS: Amorphous Sediment,Urine Rare /hpf; Appearance,Urine Cloudy (Clear); Bacteria,Urine Rare /hpf; Bilirubin,Urine Negative (Negative); Blood,Urine Small (Negative); Color,Urine Yellow; Glucose,Urine (UA) 3+ (Negative); Ketones,Urine Negative (Negative); Leukocyte Esterase,Urine Large (Negative); Nitrite,Urine Negative (Negative); PH, Urine 5.5 (5.0-8.0); Protein,Urine 1+ (Negative); RBC,Urine 5 /hpf (0-5); Squamous Epithelial Cell,Urine 3 /hpf (0-4); Urobilinogen,Urine <2.0 mg/dL (<2.0); WBC,Urine 85 /hpf (0-5)
[2021-10-14 08:03] LABS: Glucose,Whole Blood 225 mg/dL (75-99)
[2021-10-14] MEDS: CYANOCOBALAMIN 500 MCG TAB PO SCH (08:53)
[2021-10-14] MEDS: RIVAROXABAN 15 MG TAB PO SCH (08:53)
[2021-10-14] MEDS: DOCUSATE 100 MG CAP PO SCH (08:53)
[2021-10-14] MEDS: FERROUS SULFATE 325 MG TAB PO SCH ×2 (08:53→17:27)
[2021-10-14] MEDS: FUROSEMIDE 20 MG TAB PO SCH (08:53)
[2021-10-14] MEDS: hydrALAZINE HCL 50 MG TAB PO SCH ×2 (08:54→20:59)
[2021-10-14] MEDS: ATORVASTATIN 10 MG TAB PO SCH (08:54)
[2021-10-14] MEDS: CLOPIDOGREL 75 MG TAB PO SCH (08:54)
[2021-10-14] MEDS ORDERED: polyethylene glycoL 3350 17 GM POWD.PACK PO PRN (09:00)
--- NOTE | 2021-10-14 10:16 | P.GSCN ---
History of Present Illness Consult date: 10/14/21 History of present illness: Marylu is an 81-year-old female known to our group from previous peripheral arterial disease and revascularization and subsequent left lower extremity transmetatarsal amputation. She was recently seen in the office and found to be in good spirits with no evidence of significant issue of her left lower extremity wound. Initiation of the wound VAC was attempted but subsequently the daughter states that it was left in place for 3 days without any suction. She was seen by her infectious disease physician who suffered to the hospital due to foul smell and worsening appearance of the wound. She denies a fevers, chills, nausea or vomiting. Overall feeling slightly weak and tired Past Medical History Past Medical History: Atrial Fibrillation, Diabetes Mellitus, Hypertension Additional Past Medical History / Comment(s): wound rt foot, wound to left pinkey, wound right abdominal wall History of Any Multi-Drug Resistant Organisms: None Reported Past Surgical History: Cholecystectomy Additional Past Surgical History / Comment(s): hematoma removal abdomen Past Anesthesia/Blood Transfusion Reactions: No Reported Reaction Past Psychological History: No Psychological Hx Reported Smoking Status: Never smoker Past Alcohol Use History: None Reported Past Drug Use History: None Reported - Past Family History Sister(s) Family Medical History: Cancer Brother(s) Family Medical History: Cancer Medications and Allergies Home Medications Medication Instructions Recorded Confirmed Type Cyanocobalamin [Vitamin B-12] 500 mcg PO DAILY 06/28/21 10/14/21 History Furosemide [Lasix] 20 mg PO DAILY 06/28/21 10/14/21 History Insulin Lispro [Insulin Lispro See Protocol SQ AC-TID 06/28/21 10/14/21 History Kwikpen U-100] Rivaroxaban [Xarelto] 15 mg PO DAILY 06/28/21 10/14/21 History Simvastatin [Zocor] 20 mg PO DAILY 06/28/21 10/14/21 History Clopidogrel [Plavix] 75 mg PO DAILY 30 Days #30 tab 07/25/21 10/14/21 Rx Insulin Glargine [Lantus Vial] 12 unit SQ HS 10/14/21 10/14/21 History Insulin Lispro [humaLOG Kwikpen] 6 unit SQ AC-TID 10/14/21 10/14/21 History hydrALAZINE HCL [Apresoline] 50 mg PO TID 10/14/21 10/14/21 History lisinopriL [Zestril] 5 mg PO DAILY 10/14/21 10/14/21 History Allergies Allergy/AdvReac Type Severity Reaction Status Date / Time aspirin Allergy Anaphylaxis Verified 10/14/21 08:10 Surgical - Exam Vital Signs Temp Pulse Resp BP Pulse Ox 99.6 F 65 18 124/58 98 10/13/21 16:39 10/13/21 16:39 10/13/21 16:39 10/13/21 16:39 10/13/21 16:39 Patient is a pleasant cooperative female in no acute distress. Tired appearing. HEENT is normal cephalic, atraumatic, extraocular motion intact. Heart appears regular. Lungs are clear bilaterally. Abdomen is soft. Extremity show no clubbing or cyanosis. The dressing is a place on the left lower extremity. Is clean and dry. Right heel dry gangrene. Results - Labs 10/14/21 00:00 10/14/21 00:00 Abnormal Lab Results - Last 24 Hours (Table) 10/13/21 10/14/21 10/14/21 Range/Units 16:43 00:00 00:00 WBC 16.0 H (3.8-10.6) k/uL RBC 3.68 L (3.80-5.40) m/uL Hgb 11.0 L (11.4-16.0) gm/dL Neutrophils # 12.9 H (1.3-7.7) k/uL PT (9.0-12.0) sec INR (<1.2) Sodium 125 L (137-145) mmol/L Chloride 91 L (98-107) mmol/L BUN 51 H (7-17) mg/dL Creatinine 2.02 H (0.52-1.04) mg/dL Glucose 244 H (74-99) mg/dL POC Glucose (mg/dL) 309 H (75-99) mg/dL Calcium 11.5 H (8.4-10.2) mg/dL Alkaline Phosphatase 182 H (38-126) U/L Creatine Kinase 22 L (30-135) U/L C-Reactive Protein 8.0 H (<1.0) mg/dL Total Protein 8.5 H (6.3-8.2) g/dL Procalcitonin (0.02-0.09) ng/mL Urine Appearance (Clear) Urine Protein (Negative) Urine Glucose (UA) (Negative) Urine Blood (Negative) Ur Leukocyte Esterase (Negative) Urine WBC (0-5) /hpf Urine WBC Clumps (None) /hpf Amorphous Sediment (None) /hpf Urine Bacteria (None) /hpf 10/14/21 10/14/21 10/14/21 Range/Units 00:00 01:05 05:20 WBC (3.8-10.6) k/uL RBC (3.80-5.40) m/uL Hgb (11.4-16.0) gm/dL Neutrophils # (1.3-7.7) k/uL PT 12.5 H (9.0-12.0) sec INR 1.2 H (<1.2) Sodium (137-145) mmol/L Chloride (98-107) mmol/L BUN (7-17) mg/dL Creatinine (0.52-1.04) mg/dL Glucose (74-99) mg/dL POC Glucose (mg/dL) (75-99) mg/dL Calcium (8.4-10.2) mg/dL Alkaline Phosphatase (38-126) U/L Creatine Kinase (30-135) U/L C-Reactive Protein (<1.0) mg/dL Total Protein (6.3-8.2) g/dL Procalcitonin 0.40 H (0.02-0.09) ng/mL Urine Appearance Cloudy H (Clear) Urine Protein 1+ H (Negative) Urine Glucose (UA) 3+ H (Negative) Urine Blood Small H (Negative) Ur Leukocyte Esterase Large H (Negative) Urine WBC 85 H (0-5) /hpf Urine WBC Clumps Rare H (None) /hpf Amorphous Sediment Rare H (None) /hpf Urine Bacteria Rare H (None) /hpf 10/14/21 Range/Units 08:01 WBC (3.8-10.6) k/uL RBC (3.80-5.40) m/uL Hgb (11.4-16.0) gm/dL Neutrophils # (1.3-7.7) k/uL PT (9.0-12.0) sec INR (<1.2) Sodium (137-145) mmol/L Chloride (98-107) mmol/L BUN (7-17) mg/dL Creatinine (0.52-1.04) mg/dL Glucose (74-99) mg/dL POC Glucose (mg/dL) 225 H (75-99) mg/dL Calcium (8.4-10.2) mg/dL Alkaline Phosphatase (38-126) U/L Creatine Kinase (30-135) U/L C-Reactive Protein (<1.0) mg/dL Total Protein (6.3-8.2) g/dL Procalcitonin (0.02-0.09) ng/mL Urine Appearance (Clear) Urine Protein (Negative) Urine Glucose (UA) (Negative) Urine Blood (Negative) Ur Leukocyte Esterase (Negative) Urine WBC (0-5) /hpf Urine WBC Clumps (None) /hpf Amorphous Sediment (None) /hpf Urine Bacteria (None) /hpf Microbiology - Last 24 Hours (Table) 10/14/21 05:20 Urine Culture - Preliminary Urine,Voided 10/13/21 23:02 Gram Stain - Preliminary Foot - Left Wound Culture - Preliminary Diabetes panel 10/14/21 Range/Units 00:00 Sodium 125 L (137-145) mmol/L Potassium 4.2 (3.5-5.1) mmol/L Chloride 91 L (98-107) mmol/L Carbon Dioxide 23 (22-30) mmol/L BUN 51 H (7-17) mg/dL Creatinine 2.02 H (0.52-1.04) mg/dL Glucose 244 H (74-99) mg/dL Calcium 11.5 H (8.4-10.2) mg/dL AST 30 (14-36) U/L ALT 23 (4-34) U/L Alkaline Phosphatase 182 H (38-126) U/L Total Protein 8.5 H (6.3-8.2) g/dL Albumin 4.0 (3.5-5.0) g/dL Calcium panel 10/14/21 Range/Units 00:00 Calcium 11.5 H (8.4-10.2) mg/dL Albumin 4.0 (3.5-5.0) g/dL Pituitary panel 10/14/21 Range/Units 00:00 Sodium 125 L (137-145) mmol/L Potassium 4.2 (3.5-5.1) mmol/L Chloride 91 L (98-107) mmol/L Carbon Dioxide 23 (22-30) mmol/L BUN 51 H (7-17) mg/dL Creatinine 2.02 H (0.52-1.04) mg/dL Glucose 244 H (74-99) mg/dL Calcium 11.5 H (8.4-10.2) mg/dL Adrenal panel 10/14/21 Range/Units 00:00 Sodium 125 L (137-145) mmol/L Potassium 4.2 (3.5-5.1) mmol/L Chloride 91 L (98-107) mmol/L Carbon Dioxide 23 (22-30) mmol/L BUN 51 H (7-17) mg/dL Creatinine 2.02 H (0.52-1.04) mg/dL Glucose 244 H (74-99) mg/dL Calcium 11.5 H (8.4-10.2) mg/dL Total Bilirubin 0.6 (0.2-1.3) mg/dL AST 30 (14-36) U/L ALT 23 (4-34) U/L Alkaline Phosphatase 182 H (38-126) U/L Total Protein 8.5 H (6.3-8.2) g/dL Albumin 4.0 (3.5-5.0) g/dL Assessment and Plan Assessment: Nonhealing left lower extremity wound Likely infection left lower extremity wound, foul smelling Peripheral arterial disease status post revascularization Plan: We will plan to go today for operative debridement and full washout. We'll plan to place a wound VAC at this time. Risks and benefits were discussed. They seemingly understand and are willing to proceed. We also discussed going for the possibility of needing further amputation due to continued nonhealing and infection. At this time do not wish to go forward with any conversation regarding this.
[2021-10-14] MEDS ORDERED: IV FLUID CONTINUATION 200 ML IV ONE (10:17)
[2021-10-14 10:28] LABS: Glucose,Whole Blood 213 mg/dL (75-99)
[2021-10-14] MEDS ORDERED: fentaNYL (PF) 50 MCG/ML 2 ML AMP ONE (10:36)
[2021-10-14] MEDS ORDERED: GLYCOPYRROLATE 0.2 MG/ML 2 ML VIAL ONE (10:36)
[2021-10-14] MEDS ORDERED: PROPOFOL 10 MG/ML 20 ML VIAL IV ONE (10:36)
[2021-10-14] MEDS ORDERED: VANCOMYCIN 1,250 MG in SODIUM CHLORIDE 0.9% 250 ML IVPB ONE (11:00)
--- NOTE | 2021-10-14 11:15 | P.OP ---
Date of Procedure: 10/14/21 Description of Procedure: Preoperative diagnosis: [Left lower extremity nonhealing wound, infection] Postoperative diagnosis: Same Procedure: [Sharp excisional debridement left lower extremity transmetatarsal amputation nonhealing wound to the level of bone measuring 11 x 5 x 3.5 cm Wound VAC application] Surgeon: Jenniffer Don D.O. EBL: [Less than 5 mL] IV fluids: [See records] Urine output: [Not measured] Drains: [None] Complications: [None immediately apparent] Condition: [Stable to recovery] Operative indication and findings: [Patient is an 81-year-old female with previous transmetatarsal amputation for gangrene who presents with foul odor and worsening evidence of infection. The daughter states that the wound VAC was initially placed but left in place for 3-4 days without any actual suction. Plan today is to go forward with aggressive debridement and VAC placement.] Procedure in detail: [Patient was taken to the operative suite and placed in supine position. Left lower extremity was prepped and draped in usual sterile fashion. A preprocedure timeout was performed, all parties were in agreement. Using a scissors and curette, the areas of necrotic skin and fibrinous tissue were debrided. This was done down to the level of healthy appearing tissues. It appeared that the fifth metatarsal bone was exposed therefore he was depleted with a Dylon. After appropriate debridement, culture of the tissue was obtained. The area was then copiously irrigated with antibiotic solution. A wound VAC was placed. The patient transferred to recovery in stable condition having tolerated the procedure well]
[2021-10-14] MEDS ORDERED: SODIUM CHLORIDE 0.9% 1,000 ML IV ONE (11:43)
[2021-10-14 11:53] LABS: Glucose,Whole Blood 196 mg/dL (75-99)
[2021-10-14 14:39] VITALS: BMI 24.2
[2021-10-14 17:00] LABS: Glucose,Whole Blood 161 mg/dL (75-99)
[2021-10-14] MEDS: INSULIN ASPART (NovoLOG) 100 UNIT/ML VIAL SQ SCH ×2 (17:27→21:00)
[2021-10-14 20:20] LABS: Glucose,Whole Blood 224 mg/dL (75-99)
[2021-10-15] MEDS: AMPICILLIN-SULBACTAM 1.5 GM in SODIUM CHLORIDE 0.9% 50 ML IVPB SCH ×3 (05:26→23:48)
[2021-10-15] MEDS: SODIUM CHLORIDE 0.9% 1,000 ML IV SCH ×3 (05:27→19:31)
[2021-10-15 07:00] LABS: Glucose,Whole Blood 162 mg/dL (75-99)
[2021-10-15 07:06] LABS: Vancomycin,Random 13.9 ug/mL
[2021-10-15] MEDS: DOCUSATE 100 MG CAP PO SCH (08:24)
[2021-10-15] MEDS: FUROSEMIDE 20 MG TAB PO SCH (08:24)
[2021-10-15] MEDS: ATORVASTATIN 10 MG TAB PO SCH (08:24)
[2021-10-15] MEDS: CYANOCOBALAMIN 500 MCG TAB PO SCH (08:24)
[2021-10-15] MEDS: FERROUS SULFATE 325 MG TAB PO SCH ×2 (08:25→17:41)
[2021-10-15] MEDS: hydrALAZINE HCL 50 MG TAB PO SCH ×2 (08:25→20:25)
[2021-10-15] MEDS: CLOPIDOGREL 75 MG TAB PO SCH (08:25)
[2021-10-15] MEDS: RIVAROXABAN 15 MG TAB PO SCH (08:25)
[2021-10-15] MEDS: INSULIN ASPART (NovoLOG) 100 UNIT/ML VIAL SQ SCH ×4 (08:26→20:25)
[2021-10-15] MEDS: VANCOMYCIN 1,250 MG in SODIUM CHLORIDE 0.9% 250 ML IVPB SCH (08:26)
--- NOTE | 2021-10-15 09:21 | P.CONS ---
History of Present Illness - Reason for Consult Consult date: 10/14/21 Diabetic foot infection Requesting physician: Tyler Wisdom - Chief Complaint Left foot nonhealing wound and drainage x days - History of Present Illness Patient is 81-year-old female with a past medical history significant for diabetes mellitus patient did have a recent history of left fourth and fifth toe gangrene and this patient was status post left transmetatarsal amputation patient was subsequently [facility], while at the jail the patient did have dehiscence of the left foot transmetatarsal amputation site incision, patient was evaluated in the wound care center yesterday with the patient was noticed to be febrile he did have significant foul-smelling drainage with associated swelling and redness to the left foot wound patient be complaining of feeling weak and tired and no energy for the last few days patient was subsequently referred to the ER, the patient was evaluated by the ER physician on arrival to the ER the patient was afebrile did have elevated white count, patient did have x-ray of the foot which he did shows soft tissue a.ir suspicious for cellulitis or gangrene patient was evaluated by vascular surgery this morning and was taken to the OR and status post debridement of the wound patient had been started on vancomycin and Unasyn and infectious disease was consulted for further management, patient at time of evaluation denies having any fever or chills pain to the left foot is currently controlled no chest pain shortness of breath or cough no nausea no vomiting no abdominal pain no diarrhea Review of Systems Positive point has been mentioned in the HPI rest of the systems are negative Past Medical History Past Medical History: Atrial Fibrillation, Diabetes Mellitus, Hypertension Additional Past Medical History / Comment(s): wound rt foot, wound to left pinkey, wound right abdominal wall History of Any Multi-Drug Resistant Organisms: None Reported Past Surgical History: Cholecystectomy Additional Past Surgical History / Comment(s): hematoma removal abdomen Past Anesthesia/Blood Transfusion Reactions: No Reported Reaction Past Psychological History: No Psychological Hx Reported Smoking Status: Never smoker Past Alcohol Use History: None Reported Past Drug Use History: None Reported - Past Family History Sister(s) Family Medical History: Cancer Brother(s) Family Medical History: Cancer Medications and Allergies Home Medications Medication Instructions Recorded Confirmed Type Cyanocobalamin [Vitamin B-12] 500 mcg PO DAILY 06/28/21 10/14/21 History Furosemide [Lasix] 20 mg PO DAILY 06/28/21 10/14/21 History Insulin Lispro [Insulin Lispro See Protocol SQ AC-TID 06/28/21 10/14/21 History Kwikpen U-100] Rivaroxaban [Xarelto] 15 mg PO DAILY 06/28/21 10/14/21 History Simvastatin [Zocor] 20 mg PO DAILY 06/28/21 10/14/21 History Clopidogrel [Plavix] 75 mg PO DAILY 30 Days #30 tab 07/25/21 10/14/21 Rx Insulin Glargine [Lantus Vial] 12 unit SQ HS 10/14/21 10/14/21 History Insulin Lispro [humaLOG Kwikpen] 6 unit SQ AC-TID 10/14/21 10/14/21 History hydrALAZINE HCL [Apresoline] 50 mg PO TID 10/14/21 10/14/21 History lisinopriL [Zestril] 5 mg PO DAILY 10/14/21 10/14/21 History Allergies Allergy/AdvReac Type Severity Reaction Status Date / Time aspirin Allergy Anaphylaxis Verified 10/14/21 08:10 Physical Exam Vitals: Vital Signs Temp Pulse Pulse Resp BP BP Pulse Ox 10/14/21 11:30 50 L 16 137/59 100 10/14/21 11:15 96.6 F L 60 16 138/60 99 10/14/21 10:04 97.3 F L 52 L 16 170/79 100 10/14/21 07:28 97.6 F 51 L 16 142/107 100 10/14/21 04:00 51 L 142/78 10/14/21 01:00 52 L 15 162/76 98 10/13/21 23:36 78 15 134/75 98 10/13/21 16:39 99.6 F 65 18 124/58 98 Intake and Output 10/13/21 10/14/21 10/14/21 22:59 06:59 14:59 Intake Total 250 Output Total 5 Balance 245 Intake: IV 250 Output: Estimated Blood Loss 5 Other: Weight 68.039 kg GENERAL DESCRIPTION: An elderly female lying in bed, no distress. No tachypnea or accessory muscle of respiration use. HEENT: Shows Pallor , no scleral icterus. Oral mucous membrane is dry. No pharyngeal erythema or thrush NECK: Trachea central, no thyromegaly. LUNGS: Unlabored breathing. Clear to auscultation anteriorly. No wheeze or crackle. HEART: S1, S2, regular rate and rhythm. No loud murmur ABDOMEN: Soft, no tenderness , guarding or rigidity, no organomegaly EXTREMITIES: Left foot wound Is currently covered with a wound VAC SKIN: No rash, no masses palpable. NEUROLOGICAL: The patient is awake, alert, oriented x3, mood and affect normal. Results CBC & Chem 7: 10/14/21 00:00 10/15/21 06:22 Labs: Abnormal Lab Results - Last 24 Hours (Table) 10/13/21 10/14/21 10/14/21 Range/Units 16:43 00:00 00:00 WBC 16.0 H (3.8-10.6) k/uL RBC 3.68 L (3.80-5.40) m/uL Hgb 11.0 L (11.4-16.0) gm/dL Neutrophils # 12.9 H (1.3-7.7) k/uL PT (9.0-12.0) sec INR (<1.2) Sodium 125 L (137-145) mmol/L Chloride 91 L (98-107) mmol/L BUN 51 H (7-17) mg/dL Creatinine 2.02 H (0.52-1.04) mg/dL Glucose 244 H (74-99) mg/dL POC Glucose (mg/dL) 309 H (75-99) mg/dL Calcium 11.5 H (8.4-10.2) mg/dL Alkaline Phosphatase 182 H (38-126) U/L Creatine Kinase 22 L (30-135) U/L C-Reactive Protein 8.0 H (<1.0) mg/dL Total Protein 8.5 H (6.3-8.2) g/dL Procalcitonin (0.02-0.09) ng/mL Urine Appearance (Clear) Urine Protein (Negative) Urine Glucose (UA) (Negative) Urine Blood (Negative) Ur Leukocyte Esterase (Negative) Urine WBC (0-5) /hpf Urine WBC Clumps (None) /hpf Amorphous Sediment (None) /hpf Urine Bacteria (None) /hpf 10/14/21 10/14/21 10/14/21 Range/Units 00:00 01:05 05:20 WBC (3.8-10.6) k/uL RBC (3.80-5.40) m/uL Hgb (11.4-16.0) gm/dL Neutrophils # (1.3-7.7) k/uL PT 12.5 H (9.0-12.0) sec INR 1.2 H (<1.2) Sodium (137-145) mmol/L Chloride (98-107) mmol/L BUN (7-17) mg/dL Creatinine (0.52-1.04) mg/dL Glucose (74-99) mg/dL POC Glucose (mg/dL) (75-99) mg/dL Calcium (8.4-10.2) mg/dL Alkaline Phosphatase (38-126) U/L Creatine Kinase (30-135) U/L C-Reactive Protein (<1.0) mg/dL Total Protein (6.3-8.2) g/dL Procalcitonin 0.40 H (0.02-0.09) ng/mL Urine Appearance Cloudy H (Clear) Urine Protein 1+ H (Negative) Urine Glucose (UA) 3+ H (Negative) Urine Blood Small H (Negative) Ur Leukocyte Esterase Large H (Negative) Urine WBC 85 H (0-5) /hpf Urine WBC Clumps Rare H (None) /hpf Amorphous Sediment Rare H (None) /hpf Urine Bacteria Rare H (None) /hpf 10/14/21 10/14/21 Range/Units 08:01 10:26 WBC (3.8-10.6) k/uL RBC (3.80-5.40) m/uL Hgb (11.4-16.0) gm/dL Neutrophils # (1.3-7.7) k/uL PT (9.0-12.0) sec INR (<1.2) Sodium (137-145) mmol/L Chloride (98-107) mmol/L BUN (7-17) mg/dL Creatinine (0.52-1.04) mg/dL Glucose (74-99) mg/dL POC Glucose (mg/dL) 225 H 213 H (75-99) mg/dL Calcium (8.4-10.2) mg/dL Alkaline Phosphatase (38-126) U/L Creatine Kinase (30-135) U/L C-Reactive Protein (<1.0) mg/dL Total Protein (6.3-8.2) g/dL Procalcitonin (0.02-0.09) ng/mL Urine Appearance (Clear) Urine Protein (Negative) Urine Glucose (UA) (Negative) Urine Blood (Negative) Ur Leukocyte Esterase (Negative) Urine WBC (0-5) /hpf Urine WBC Clumps (None) /hpf Amorphous Sediment (None) /hpf Urine Bacteria (None) /hpf Microbiology - Last 24 Hours (Table) 10/14/21 05:20 Urine Culture - Preliminary Urine,Voided 10/13/21 23:02 Gram Stain - Preliminary Foot - Left Wound Culture - Preliminary Assessment and Plan (1) Diabetic infection of left foot Current Visit: Yes Status: Acute Code(s): E11.628 - TYPE 2 DIABETES MELLITUS WITH OTHER SKIN COMPLICATIONS; L08.9 - LOCAL INFECTION OF THE SKIN AND SUBCUTANEOUS TISSUE, UNSP SNOMED Code(s): 54589116 Plan: 1patient with recent history of left foot/toes gangrene in this patient who is status post transmetatarsal amputation now presented to hospital with dehiscence of the wound and concern for secondary cellulitis with significant foul-smell ing drainage in this patient status post debridement and cultures are currently pending. 2Vancomycin pharmacy to dose target trough of 15 while watching kidney function and Vanco trough closely and Unasyn to continue Wellbutrin for the culture finalized. 3local wound care with a wound VAC. We will follow on clinical condition and cultures to further adjust medication if needed Thank you for this consultation will follow this patient with you Time with Patient: Greater than 30
[2021-10-15] MEDS: TAMSULOSIN 0.4 MG CAP.ER.24H PO SCH (11:27)
[2021-10-15 11:56] LABS: Glucose,Whole Blood 140 mg/dL (75-99)
[2021-10-15] MEDS: ACETAMINOPHEN TAB 325 MG TAB PO PRN ×2 (14:34→20:25)
[2021-10-15 17:26] LABS: Glucose,Whole Blood 189 mg/dL (75-99)
[2021-10-15 20:18] LABS: Glucose,Whole Blood 219 mg/dL (75-99)
--- NOTE | 2021-10-15 21:37 | P.PN ---
Subjective Progress Note Date: 10/15/21 Principal diagnosis: Left foot transmetatarsal wound dehiscence and cellulitis Patient is a 81-year-old female who was recently admitted at this facility and status post transmetatarsal Amputation of the left foot, subsequently admitted to the hospital with left foot wound dehiscence and secondary cellulitis. Patient was taken to the OR 527 to status post debridement of the wound and deep cultures. On today's evaluation that is 10/15/2021, the patient denies having any fever or chills, denies any chest pain or shortness of breath or cough. Pain to the left foot is currently controlled no nausea no vomiting and no diarrhea Objective - Vital Signs Vital signs: Vital Signs Temp 98.6 F 10/15/21 13:00 Pulse 52 L 10/15/21 13:00 Resp 16 10/15/21 13:00 BP 131/55 10/15/21 13:00 Pulse Ox 100 10/15/21 13:00 FiO2 Intake & Output 10/15/21 10/15/21 10/16/21 06:59 18:59 06:59 Intake Total 1300 50 Output Total 1200 1000 Balance 100 -950 Intake: Intake, IV Titration 1300 50 Amount Ampicillin-Sulbactam 1.5 100 50 gm In Sodium Chloride 0.9 % 50 ml @ 100 mls/hr IVPB Q6HR [facility] Rx#:[id number] Sodium Chloride 0.9% 1, 1200 000 ml @ 130 mls/hr IV . [id number] [facility] Rx#:[id number] Output: Urine 1200 1000 Straight 1200 Other: Voiding Method Bedpan Bedpan Diaper Diaper # Bowel Movements 1 - Exam GENERAL DESCRIPTION: An elderly female lying in bed in no distress RESPIRATORY SYSTEM: Unlabored breathing , decreased breath sounds at bases HEART: S1 S2 regular rate and rhythm , ABDOMEN: Soft , no tenderness EXTREMITIES: Left foot wound is currently covered with a wound VAC - Labs CBC & Chem 7: 10/14/21 00:00 10/15/21 06:22 Labs: Abnormal Lab Results - Last 24 Hours (Table) 10/14/21 10/15/21 10/15/21 Range/Units 20:19 06:22 06:58 Creatinine 1.47 H (0.52-1.04) mg/dL POC Glucose (mg/dL) 224 H 162 H (75-99) mg/dL 10/15/21 10/15/21 Range/Units 11:54 17:24 Creatinine (0.52-1.04) mg/dL POC Glucose (mg/dL) 140 H 189 H (75-99) mg/dL Microbiology - Last 24 Hours (Table) 10/13/21 23:15 Blood Culture Gram Stain - Preliminary Blood Blood Culture - Preliminary Coagulase Negative Staph 10/14/21 05:20 Urine Culture - Final Urine,Voided 10/13/21 23:02 Gram Stain - Preliminary Foot - Left Wound Culture - Preliminary Gram Neg Bacilli Strep agalactiae - (group b) 10/14/21 00:00 Blood Culture - Preliminary Blood No Growth after 24 hours 10/14/21 11:06 Wound Culture - Preliminary Foot - Left 10/14/21 11:06 Anaerobic Culture - Preliminary Foot - Left 10/13/21 23:15 Blood Culture - Final Blood Assessment and Plan (1) Diabetic infection of left foot Current Visit: Yes Status: Acute Code(s): E11.628 - TYPE 2 DIABETES MELLITUS WITH OTHER SKIN COMPLICATIONS; L08.9 - LOCAL INFECTION OF THE SKIN AND SUBCUTANEOUS TISSUE, UNSP SNOMED Code(s): 79720988 Plan: 1patient with recent history of left foot/toes gangrene in this patient who is status post transmetatarsal amputation now presented to hospital with dehiscence of the wound and concern for secondary cellulitis with significant foul-smelling drainage in this patient status post debridement and cultures are currently pending. 2-positive blood culture with staph epi likely skin contaminant blood cultures will be repeated 3patient continue with Vancomycin pharmacy to dose target trough of 15 while watching kidney function and Vanco trough closely and Unasyn while waiting for the culture finalized. 4local wound care with a wound VAC. Time with Patient: Less than 30
--- NOTE | 2021-10-15 21:46 | P.PN ---
Progress Note - Text Progress Note Date: 10/15/21 patient seen and examined with family at bedside. Doing well since surgery. Wound vac intact and patient denies any fevers, chills, chest pain or shortness of breath. pain is controlled. VSS- Afebrile WNWD, NAD, Alert HEENT, PERRL Neck supple Regular rate No retractions Left foot with wound vac intact, good capillary refill. A/P: 1. Left foot wound s/p debridement 2. Non healing left foot wound with infection 3. DM - continue wound vac, will change Sunday if still in hospital. - continue abx per ID
[2021-10-16] MEDS: SODIUM CHLORIDE 0.9% 1,000 ML IV SCH ×2 (04:27→12:22)
[2021-10-16] MEDS: ACETAMINOPHEN TAB 325 MG TAB PO PRN ×3 (04:28→21:54)
[2021-10-16 07:21] LABS: Glucose,Whole Blood 131 mg/dL (75-99)
[2021-10-16] MEDS: INSULIN ASPART (NovoLOG) 100 UNIT/ML VIAL SQ SCH ×4 (08:06→21:54)
[2021-10-16] MEDS: hydrALAZINE HCL 50 MG TAB PO SCH ×2 (08:06→21:54)
[2021-10-16] MEDS: FUROSEMIDE 20 MG TAB PO SCH (08:07)
[2021-10-16] MEDS: CYANOCOBALAMIN 500 MCG TAB PO SCH (08:07)
[2021-10-16] MEDS: FERROUS SULFATE 325 MG TAB PO SCH ×2 (08:07→17:30)
[2021-10-16] MEDS: DOCUSATE 100 MG CAP PO SCH (08:07)
[2021-10-16] MEDS: ATORVASTATIN 10 MG TAB PO SCH (08:07)
[2021-10-16] MEDS: RIVAROXABAN 15 MG TAB PO SCH (08:07)
[2021-10-16] MEDS: TAMSULOSIN 0.4 MG CAP.ER.24H PO SCH (08:07)
[2021-10-16] MEDS: CLOPIDOGREL 75 MG TAB PO SCH (08:07)
[2021-10-16] MEDS: VANCOMYCIN 1,250 MG in SODIUM CHLORIDE 0.9% 250 ML IVPB SCH (08:08)
--- NOTE | 2021-10-16 10:59 | P.GSCN ---
History of Present Illness Consult date: 10/16/21 Reason for Consult: Urinary retention Requesting physician: Nash Jain History of present illness: The patient is an 81-year-old white female with a history of diabetes mellitus with neuropathy who underwent debridement of left foot necrotic tissue on 10/14/2021. She has been found to empty her bladder incompletely. Per her daughter, she was straight catheterized with volumes of 1200 mL and 800 mL, so a Don catheter was placed. The catheter is now draining clear yellow urine. The patient has been treated for recurrent UTIs. She reports occasional urge incontinence. She reports nocturia 3-4 but denies nocturnal enuresis. Review of Systems - Genitourinary Genitourinary: Reports as per HPI Past Medical History Past Medical History: Atrial Fibrillation, Diabetes Mellitus, Hypertension Additional Past Medical History / Comment(s): wound rt foot, wound to left pinkey, wound right abdominal wall History of Any Multi-Drug Resistant Organisms: None Reported Past Surgical History: Cholecystectomy Additional Past Surgical History / Comment(s): hematoma removal abdomen Past Anesthesia/Blood Transfusion Reactions: No Reported Reaction Past Psychological History: No Psychological Hx Reported Smoking Status: Never smoker Past Alcohol Use History: None Reported Past Drug Use History: None Reported - Past Family History Sister(s) Family Medical History: Cancer Brother(s) Family Medical History: Cancer Medications and Allergies Home Medications Medication Instructions Recorded Confirmed Type Cyanocobalamin [Vitamin B-12] 500 mcg PO DAILY 06/28/21 10/14/21 History Furosemide [Lasix] 20 mg PO DAILY 06/28/21 10/14/21 History Insulin Lispro [Insulin Lispro See Protocol SQ AC-TID 06/28/21 10/14/21 History Kwikpen U-100] Rivaroxaban [Xarelto] 15 mg PO DAILY 06/28/21 10/14/21 History Simvastatin [Zocor] 20 mg PO DAILY 06/28/21 10/14/21 History Clopidogrel [Plavix] 75 mg PO DAILY 30 Days #30 tab 07/25/21 10/14/21 Rx Insulin Glargine [Lantus Vial] 12 unit SQ HS 10/14/21 10/14/21 History Insulin Lispro [humaLOG Kwikpen] 6 unit SQ AC-TID 10/14/21 10/14/21 History hydrALAZINE HCL [Apresoline] 50 mg PO TID 10/14/21 10/14/21 History lisinopriL [Zestril] 5 mg PO DAILY 10/14/21 10/14/21 History Allergies Allergy/AdvReac Type Severity Reaction Status Date / Time aspirin Allergy Anaphylaxis Verified 10/14/21 08:10 Surgical - Exam Vital Signs Temp Pulse Resp BP Pulse Ox 99.6 F 65 18 124/58 98 10/13/21 16:39 10/13/21 16:39 10/13/21 16:39 10/13/21 16:39 10/13/21 16:39 - General well developed, well nourished, no distress - Respiratory normal respiratory effort - Abdomen Abdomen: soft, non tender, no guarding, no rigid, no rebound - Psychiatric oriented to time, oriented to person, oriented to place, speech is normal, memory intact Results - Labs 10/14/21 00:00 10/16/21 05:52 Abnormal Lab Results - Last 24 Hours (Table) 10/14/21 10/14/21 10/14/21 Range/Units 11:51 16:59 20:19 Creatinine (0.52-1.04) mg/dL POC Glucose (mg/dL) 196 H 161 H 224 H (75-99) mg/dL 10/15/21 10/15/21 Range/Units 06:22 06:58 Creatinine 1.47 H (0.52-1.04) mg/dL POC Glucose (mg/dL) 162 H (75-99) mg/dL Microbiology - Last 24 Hours (Table) 10/13/21 23:02 Gram Stain - Preliminary Foot - Left Wound Culture - Preliminary Gram Neg Bacilli Strep agalactiae - (group b) 10/13/21 23:15 Blood Culture Gram Stain - Preliminary Blood 10/14/21 00:00 Blood Culture - Preliminary Blood No Growth after 24 hours 10/14/21 11:06 Wound Culture - Preliminary Foot - Left 10/14/21 11:06 Anaerobic Culture - Preliminary Foot - Left 10/13/21 23:15 Blood Culture - Final Blood 10/14/21 05:20 Urine Culture - Preliminary Urine,Voided Diabetes panel 10/15/21 Range/Units 06:22 Creatinine 1.47 H (0.52-1.04) mg/dL Pituitary panel 10/15/21 Range/Units 06:22 Creatinine 1.47 H (0.52-1.04) mg/dL Adrenal panel 10/15/21 Range/Units 06:22 Creatinine 1.47 H (0.52-1.04) mg/dL Assessment and Plan Plan: I explained to the patient and her family that patients with diabetic neuropathy 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 Left untr eated, this can result in urinary incontinence, recurrent UTIs, and hydronephrosis with renal failure. A renal ultrasound will be obtained to check for hydronephrosis, as I suspect the incomplete bladder emptying his chronic. The Don catheter should be removed prior to discharge, and postvoid residuals checked to assess bladder emptying. Thank you for allowing me to participate in Mrs. Chavez's care. Time with Patient: Greater than 30
[2021-10-16] MEDS: AMPICILLIN-SULBACTAM 1.5 GM in SODIUM CHLORIDE 0.9% 50 ML IVPB SCH (11:27)
[2021-10-16 11:46] LABS: Glucose,Whole Blood 210 mg/dL (75-99)
--- NOTE | 2021-10-16 11:48 | US ---
EXAMINATION TYPE: US kidneys/renal and bladder DATE OF EXAM: 10/16/2021 COMPARISON: NONE CLINICAL HISTORY: Urinary retention. urinary retention EXAM MEASUREMENTS: Right Kidney: 9.1 x 4.2 x 3.6 cm Left Kidney: 9.0 x 4.5 x 4.0 cm *limitations due to overlying bowel content Right Kidney: small amount of perinephric fluid. Dense echogenic focus mid = 0.5cm can be compatible with a nonobstructing renal stone Left Kidney: no evidence of hydronephrosis. Bladder: Don Catheter IMPRESSION: 1. Some minimal fluid may be adjacent to the right kidney. Correlate for renal failure. 2. Nonobstructing mid right renal stone measuring 0.5 cm. 3. No fluid is evident within the catheterized urinary bladder.
--- NOTE | 2021-10-16 13:43 | P.HPIM ---
History of Present Illness H&P Date: 10/14/21 Chief Complaint: Left foot nonhealing wound/infection 81-year-old female with a past medical history significant for diabetes mellitus patient did have a recent history of left fourth and fifth toe gangrene and this patient was status post left transmetatarsal amputation patient was subsequently discharged to the local [facility] for rehabilitation, while at the [facility] the patient did have dehiscence of the left foot transmetatarsal amputation site incision, patient was evaluated in the wound care center yesterday with the patient was noticed to be febrile he did have significant foul-smelling drainage with associated swelling and redness to the left foot wound patient be complaining of feeling weak and tired and no energy for the last few days patient was subsequently referred to the ER, the patient was evaluated by the ER physician on arrival to the ER the patient was afebrile did have elevated white count, patient did have x-ray of the foot which he did shows soft tissue a.ir suspicious for cellulitis or gangrene patient was evaluated by vascular surgery this morning and was taken to the OR and status post debridement of the wound patient had been started on vancomycin and Unasyn and infectious disease was consulted for further management, patient at time of evaluation denies having any fever or chills pain to the left foot is currently controlled no chest pain shortness of breath or cough no nausea no vomiting no abdominal pain no diarrhea Review of Systems REVIEW OF SYSTEMS: CONSTITUTIONAL: No fever, no malaise, no fatigue. HEENT: No recent visual problems or hearing problems. Denied any sore throat. CARDIOVASCULAR: No chest pain, orthopnea, PND, no palpitations, no syncope. PULMONARY: No shortness of breath, no cough, no hemoptysis. GASTROINTESTINAL: No diarrhea, no nausea, no vomiting, no abdominal pain. NEUROLOGICAL: No headaches, no weakness, no numbness. HEMATOLOGICAL: Denies any bleeding or petechiae. GENITOURINARY: Denies any burning micturition, frequency, or urgency. MUSCULOSKELETAL/RHEUMATOLOGICAL: Denies any joint pain, swelling, or any muscle pain. ENDOCRINE: Denies any polyuria or polydipsia. The rest of the 14-point review of systems is negative. Past Medical History Past Medical History: Atrial Fibrillation, Diabetes Mellitus, Hypertension Additional Past Medical History / Comment(s): wound rt foot, wound to left pinkey, wound right abdominal wall History of Any Multi-Drug Resistant Organisms: None Reported Past Surgical History: Cholecystectomy Additional Past Surgical History / Comment(s): hematoma removal abdomen Past Anesthesia/Blood Transfusion Reactions: No Reported Reaction Past Psychological History: No Psychological Hx Reported Smoking Status: Never smoker Past Alcohol Use History: None Reported Past Drug Use History: None Reported - Past Family History Sister(s) Family Medical History: Cancer Brother(s) Family Medical History: Cancer Medications and Allergies Home Medications Medication Instructions Recorded Confirmed Type Cyanocobalamin [Vitamin B-12] 500 mcg PO DAILY 06/28/21 10/14/21 History Furosemide [Lasix] 20 mg PO DAILY 06/28/21 10/14/21 History Insulin Lispro [Insulin Lispro See Protocol SQ AC-TID 06/28/21 10/14/21 History Kwikpen U-100] Rivaroxaban [Xarelto] 15 mg PO DAILY 06/28/21 10/14/21 History Simvastatin [Zocor] 20 mg PO DAILY 06/28/21 10/14/21 History Clopidogrel [Plavix] 75 mg PO DAILY 30 Days #30 tab 07/25/21 10/14/21 Rx Insulin Glargine [Lantus Vial] 12 unit SQ HS 10/14/21 10/14/21 History Insulin Lispro [humaLOG Kwikpen] 6 unit SQ AC-TID 10/14/21 10/14/21 History hydrALAZINE HCL [Apresoline] 50 mg PO TID 10/14/21 10/14/21 History lisinopriL [Zestril] 5 mg PO DAILY 10/14/21 10/14/21 History Allergies Allergy/AdvReac Type Severity Reaction Status Date / Time aspirin Allergy Anaphylaxis Verified 10/14/21 08:10 Physical Exam Vitals: Vital Signs Temp Pulse Pulse Resp BP BP Pulse Ox 10/14/21 11:30 50 L 16 137/59 100 10/14/21 11:15 96.6 F L 60 16 138/60 99 10/14/21 10:04 97.3 F L 52 L 16 170/79 100 10/14/21 07:28 97.6 F 51 L 16 142/107 100 10/14/21 04:00 51 L 142/78 10/14/21 01:00 52 L 15 162/76 98 10/13/21 23:36 78 15 134/75 98 10/13/21 16:39 99.6 F 65 18 124/58 98 Intake and Output 10/13/21 10/14/21 10/14/21 22:59 06:59 14:59 Intake Total 250 Output Total 5 Balance 245 Intake: IV 250 Output: Estimated Blood Loss 5 Other: Weight 68.039 kg GENERAL DESCRIPTION: An elderly female lying in bed, no distress. No tachypnea or accessory muscle of respiration use. HEENT: Shows Pallor , no scleral icterus. Oral mucous membrane is dry. No pharyngeal erythema or thrush NECK: Trachea central, no thyromegaly. LUNGS: Unlabored breathing. Clear to auscultation anteriorly. No wheeze or crackle. HEART: S1, S2, regular rate and rhythm. No loud murmur ABDOMEN: Soft, no tenderness , guarding or rigidity, no organomegaly EXTREMITIES: Left foot wound Is currently covered with a wound VAC SKIN: No rash, no masses palpable. NEUROLOGICAL: The patient is awake, alert, oriented x3, mood and affect normal. Results CBC & Chem 7: 10/14/21 00:00 10/16/21 05:52 Labs: Abnormal Lab Results - Last 24 Hours (Table) 10/13/21 10/14/21 10/14/21 Range/Units 16:43 00:00 00:00 WBC 16.0 H (3.8-10.6) k/uL RBC 3.68 L (3.80-5.40) m/uL Hgb 11.0 L (11.4-16.0) gm/dL Neutrophils # 12.9 H (1.3-7.7) k/uL PT (9.0-12.0) sec INR (<1.2) Sodium 125 L (137-145) mmol/L Chloride 91 L (98-107) mmol/L BUN 51 H (7-17) mg/dL Creatinine 2.02 H (0.52-1.04) mg/dL Glucose 244 H (74-99) mg/dL POC Glucose (mg/dL) 309 H (75-99) mg/dL Calcium 11.5 H (8.4-10.2) mg/dL Alkaline Phosphatase 182 H (38-126) U/L Creatine Kinase 22 L (30-135) U/L C-Reactive Protein 8.0 H (<1.0) mg/dL Total Protein 8.5 H (6.3-8.2) g/dL Procalcitonin (0.02-0.09) ng/mL Urine Appearance (Clear) Urine Protein (Negative) Urine Glucose (UA) (Negative) Urine Blood (Negative) Ur Leukocyte Esterase (Negative) Urine WBC (0-5) /hpf Urine WBC Clumps (None) /hpf Amorphous Sediment (None) /hpf Urine Bacteria (None) /hpf 10/14/21 10/14/21 10/14/21 Range/Units 00:00 01:05 05:20 WBC (3.8-10.6) k/uL RBC (3.80-5.40) m/uL Hgb (11.4-16.0) gm/dL Neutrophils # (1.3-7.7) k/uL PT 12.5 H (9.0-12.0) sec INR 1.2 H (<1.2) Sodium (137-145) mmol/L Chloride (98-107) mmol/L BUN (7-17) mg/dL Creatinine (0.52-1.04) mg/dL Glucose (74-99) mg/dL POC Glucose (mg/dL) (75-99) mg/dL Calcium (8.4-10.2) mg/dL Alkaline Phosphatase (38-126) U/L Creatine Kinase (30-135) U/L C-Reactive Protein (<1.0) mg/dL Total Protein (6.3-8.2) g/dL Procalcitonin 0.40 H (0.02-0.09) ng/mL Urine Appearance Cloudy H (Clear) Urine Protein 1+ H (Negative) Urine Glucose (UA) 3+ H (Negative) Urine Blood Small H (Negative) Ur Leukocyte Esterase Large H (Negative) Urine WBC 85 H (0-5) /hpf Urine WBC Clumps Rare H (None) /hpf Amorphous Sediment Rare H (None) /hpf Urine Bacteria Rare H (None) /hpf 10/14/21 10/14/21 Range/Units 08:01 10:26 WBC (3.8-10.6) k/uL RBC (3.80-5.40) m/uL Hgb (11.4-16.0) gm/dL Neutrophils # (1.3-7.7) k/uL PT (9.0-12.0) sec INR (<1.2) Sodium (137-145) mmol/L Chloride (98-107) mmol/L BUN (7-17) mg/dL Creatinine (0.52-1.04) mg/dL Glucose (74-99) mg/dL POC Glucose (mg/dL) 225 H 213 H (75-99) mg/dL Calcium (8.4-10.2) mg/dL Alkaline Phosphatase (38-126) U/L Creatine Kinase (30-135) U/L C-Reactive Protein (<1.0) mg/dL Total Protein (6.3-8.2) g/dL Procalcitonin (0.02-0.09) ng/mL Urine Appearance (Clear) Urine Protein (Negative) Urine Glucose (UA) (Negative) Urine Blood (Negative) Ur Leukocyte Esterase (Negative) Urine WBC (0-5) /hpf Urine WBC Clumps (None) /hpf Amorphous Sediment (None) /hpf Urine Bacteria (None) /hpf Microbiology - Last 24 Hours (Table) 10/14/21 05:20 Urine Culture - Preliminary Urine,Voided 10/13/21 23:02 Gram Stain - Preliminary Foot - Left Wound Culture - Preliminary Thrombosis Risk Factor Assmnt - Choose All That Apply Each Factor Represents 1 point: Minor surgery planned Each Risk Factor Represents 3 Points: Age 75 years or older Thrombosis Risk Factor Assessment Total Risk Factor Score: 4 Thrombosis Risk Factor Assessment Level: Moderate Risk Assessment and Plan Assessment: 1. Infected Diabetic left foot wound - Patient presents with nonhealing left foot wound; patient has a recent history of left foot/toe gangrene and underwent transverse tarsal amputation; was d ischarged to skilled facility and presents with concern about wound dehiscence with secondary cellulitis and foul-smelling drainage from surgical site - Patient has been placed on IV vancomycin; pharmacy on board for dosing; further recommendations once culture results - ID recommending local wound care with wound VAC 2. Leukocytosis/sepsis; we'll continue with IV antibiotics per ID recommendati ons; we will monitor CBC, CRP and pro-calcitonin; awit wound and blood cultures 3. Hypertension; lisinopril 5 mg daily; hydralazine 50 mg 3 times a day 4. Hyperlipidemia; continue with home dose of simvastatin 5. Diabetes mellitus; controlled with insulin; continue with home dose of Lantus 12 units subcu daily at bedtime; monitor Accu-Cheks before meals and at bedtime with insulin sliding scale 6. CAD/CHF; patient remains on Plavix/statin and Lasix 7. Atrial fibrillation; patient remains rate controlled; continue with anticoagulation therapy with Xarelto 15 mg daily DVT prophylaxis; SCDs/systemic anticoagulation with Xarelto CODE STATUS; full code
--- NOTE | 2021-10-16 13:47 | P.PN ---
Subjective Progress Note Date: 10/15/21 Principal diagnosis: Left foot transmetatarsal wound dehiscence and cellulitis Left lower extremity nonhealing wound, infection; status post Sharp excisional debridement Urinary retention 81-year-old female with a past medical history significant for diabetes mellitus patient did have a recent history of left fourth and fifth toe gangrene and this patient was status post left transmetatarsal amputation patient was [facility], while at the [facility] the patient did have dehiscence of the left foot transmetatarsal amputation site incision, patient was evaluated in the wound care center yesterday with the patient was noticed to be febrile he did have significant foul-smelling drainage with associated swelling and redness to the left foot wound patient be complaining of feeling weak and tired and no energy for the last few days patient was subsequently referred to the ER, the patient was evaluated by the ER physician on arrival to the ER the patient was afebrile did have elevated white count, patient did have x-ray of the foot which he did shows soft tissue a.ir suspicious for cellulitis or gangrene patient was evaluated by vascular surgery this morning and was taken to the OR and status post debridement of the wound patient had been started on vancomycin and Unasyn and infectious disease was consulted for further management, patient at time of evaluation denies having any fever or chills pain to the left foot is currently controlled no chest pain shortness of breath or cough no nausea no vomiting no abdominal pain no diarrhea Patient is seen and evaluated with multiple family members at bedside; concerns about episodes of confusion; vital signs remained stable - Detailed discussion about current condition and plans of care and likelihood of metabolic/toxic encephalopathy discussed with patient's family; we did agree with neuro consult if no improvement in mental status with treatment Objective - Vital Signs Vital signs: Vital Signs Temp 98.7 F 10/15/21 03:40 Pulse 60 10/15/21 03:40 Resp 16 10/15/21 03:40 BP 149/57 10/15/21 03:40 Pulse Ox 99 10/15/21 03:40 FiO2 Intake & Output 10/14/21 10/15/21 10/15/21 18:59 06:59 18:59 Intake Total 1930 1300 Output Total 5 1200 700 Balance 1925 100 -700 Weight 68.039 kg Intake: IV 250 Intake, IV Titration 1100 1300 Amount Ampicillin-Sulbactam 1.5 100 100 gm In Sodium Chloride 0.9 % 50 ml @ 100 mls/hr IVPB Q6HR [facility] Rx#:[id number] Sodium Chloride 0.9% 1, 1200 000 ml @ 130 mls/hr IV . [id number] [facility] Rx#:[id number] Vancomycin 1,250 mg In 250 Sodium Chloride 0.9% 250 ml @ 125 mls/hr IVPB ONCE ONE Rx#:[id number] Vancomycin 1,250 mg In 750 Sodium Chloride 0.9% 250 ml @ 125 mls/hr IVPB ONCE ONE Rx#:[id number] Oral 580 Output: Urine 1200 700 Straight 1200 Estimated Blood Loss 5 Other: Voiding Method Bedpan Bedpan Diaper Diaper # Voids 2 # Bowel Movements 1 - Labs CBC & Chem 7: 10/14/21 00:00 10/16/21 05:52 Labs: Abnormal Lab Results - Last 24 Hours (Table) 10/14/21 10/14/21 10/15/21 Range/Units 16:59 20:19 06:22 Creatinine 1.47 H (0.52-1.04) mg/dL POC Glucose (mg/dL) 161 H 224 H (75-99) mg/dL 10/15/21 10/15/21 Range/Units 06:58 11:54 Creatinine (0.52-1.04) mg/dL POC Glucose (mg/dL) 162 H 140 H (75-99) mg/dL Microbiology - Last 24 Hours (Table) 10/14/21 05:20 Urine Culture - Final Urine,Voided 10/13/21 23:02 Gram Stain - Preliminary Foot - Left Wound Culture - Preliminary Gram Neg Bacilli Strep agalactiae - (group b) 10/13/21 23:15 Blood Culture Gram Stain - Preliminary Blood 10/14/21 00:00 Blood Culture - Preliminary Blood No Growth after 24 hours 10/14/21 11:06 Wound Culture - Preliminary Foot - Left 10/14/21 11:06 Anaerobic Culture - Preliminary Foot - Left 10/13/21 23:15 Blood Culture - Final Blood Assessment and Plan Assessment: 1. Infected Diabetic left foot wound - Patient presents with nonhealing left foot wound; patient has a recent history of left foot/toe gangrene and underwent transverse tarsal amputation; was discharged to skilled facility and presents with concern about wound dehiscence with secondary cellulitis and foul-smelling drainage from surgical site - Patient has been placed on IV vancomycin; pharmacy on board for dosing; further recommendations once culture results - ID recommending local wound care with wound VAC 2. Leukocytosis/sepsis; we'll continue with IV antibiotics per ID recommendations; we will monitor CBC, CRP and pro-calcitonin; awit wound and blood cultures 3. Hypertension; lisinopril 5 mg daily; hydralazine 50 mg 3 times a day 4. Hyperlipidemia; continue with home dose of simvastatin 5. Diabetes mellitus; controlled with insulin; continue with home dose of Lantus 12 units subcu daily at bedtime; monitor Accu-Cheks before meals and at bedtime with insulin sliding scale 6. CAD/CHF; patient remains on Plavix/statin and Lasix 7. Atrial fibrillation; patient remains rate controlled; continue with anticoagulation therapy with Xarelto 15 mg daily DVT prophylaxis; SCDs/systemic anticoagulation with Xarelto CODE STATUS; full code
[2021-10-16 14:33] LABS: Basophils % (A) 0 %; Eosinophils # (A) 0.2 k/uL (0-0.7); Eosinophils % (A) 3 %; HCT 26.7 % (34.0-46.0); Hypochromasia Slight; Lymphocytes # (A) 0.9 k/uL (1.0-4.8); Lymphocytes % (A) 12 %; MCH 30.5 pg (25.0-35.0); MCHC 31.9 g/dL (31.0-37.0); MCV 95.7 fL (80.0-100.0); Mean Platelet Volume 8.4; Monocytes # (A) 0.5 k/uL (0-1.0); Monocytes % (A) 6 %; Neutrophils # (A) 5.9 k/uL (1.3-7.7); Neutrophils % (A) 77 %; Platelet Count 201 k/uL (150-450); RBC 2.79 m/uL (3.80-5.40); RDW 15.1 % (11.5-15.5); WBC 7.7 k/uL (3.8-10.6)
[2021-10-16 14:36] LABS: HGB 8.5 gm/dL (11.4-16.0)
[2021-10-16 14:57] LABS: African American GFR (CKD) 43 (>60 ml/min/1.73 sqM); Anion Gap 8 mmol/L; Blood Urea Nitrogen 29 mg/dL (7-17); Calcium 9.2 mg/dL (8.4-10.2); Carbon Dioxide 20 mmol/L (22-30); Chloride 104 mmol/L (98-107); Glucose 205 mg/dL (74-99); Non-African American GFR(CKD) 37 (>60 ml/min/1.73 sqM); Potassium 3.2 mmol/L (3.5-5.1); Sodium 132 mmol/L (137-145)
[2021-10-16] MEDS ORDERED: CEFEPIME 2 GM in SODIUM CHLORIDE 0.9% 100 ML IVPB SCH (16:00)
[2021-10-16] MEDS: metroNIDAZOLE 500 MG TAB PO SCH ×2 (16:09→21:54)
[2021-10-16] MEDS: POTASSIUM CHLORIDE 10 MEQ in WATER FOR INJECTION 1 100ML.BAG IVPB SCH ×2 (16:15→17:34)
[2021-10-16 17:25] LABS: Glucose,Whole Blood 189 mg/dL (75-99)
--- NOTE | 2021-10-16 20:13 | P.PN ---
Subjective Progress Note Date: 10/16/21 Principal diagnosis: Left foot transmetatarsal wound dehiscence and cellulitis Left lower extremity nonhealing wound, infection; status post Sharp excisional debridement Urinary retention 81-year-old female with a past medical history significant for diabetes mellitus patient did have a recent history of left fourth and fifth toe gangrene and this patient was status post left transmetatarsal amputation patient was subsequently [place] [facility] [facility] the patient did have dehiscence of the left foot transmetatarsal amputation site incision, patient was evaluated in the wound care center yesterday with the patient was noticed to be febrile he did have significant foul-smelling drainage with associated swelling and redness to the left foot wound patient be complaining of feeling weak and tired and no energy for the last few days patient was subsequently referred to the ER, the patient was evaluated by the ER physician on arrival to the ER the patient was afebrile did have elevated white count, patient did have x-ray of the foot which he did shows soft tissue a.ir suspicious for cellulitis or gangrene patient was evaluated by vascular surgery this morning and was taken to the OR and status post debridement of the wound patient had been started on vancomycin and Unasyn and infectious disease was consulted for further management, patient at time of evaluation denies having any fever or chills pain to the left foot is currently controlled no chest pain shortness of breath or cough no nausea no vomiting no abdominal pain no diarrhea Patient is seen and evaluated with multiple family members at bedside; concerns about episodes of confusion; vital signs remained stable - Detailed discussion about current condition and plans of care and likelihood of metabolic/toxic encephalopathy discussed with patient's family; we did agree with neuro consult if no improvement in mental status with treatment 10/16/2021 Patient is seen and evaluated in room at bedside; patient is more awake and alert this morning; daughters are present in the room and report improved mentation Labs are reviewed and reveal WBC of 7.7, hemoglobin 8.5, platelet count of 201, sodium 132, potassium 3.2, BUN/creatinine of 29/1.35 and blood glucose of 189 Patient remains on IV cefepime 2 g IV every 12 hours and metronidazole 500 mg by mouth 3 times a day per ID recommendations Objective - Vital Signs Vital signs: Vital Signs Temp 99.4 F 10/16/21 08:03 Pulse 63 10/16/21 08:03 Resp 16 10/16/21 08:03 BP 154/67 10/16/21 08:03 Pulse Ox 99 10/16/21 08:03 FiO2 Intake & Output 10/15/21 10/16/21 10/16/21 18:59 06:59 18:59 Intake Total 50 590 Output Total 1000 700 Balance -950 -110 Intake: Intake, IV Titration 50 Amount Ampicillin-Sulbactam 1.5 50 gm In Sodium Chloride 0.9 % 50 ml @ 100 mls/hr IVPB Q6HR [facility] Rx#:[id number] Oral 590 Output: Urine 1000 700 Straight 700 Other: Voiding Method Bedpan Diaper Diaper Diaper Indwelling Catheter Indwelling Catheter - Exam PHYSICAL EXAMINATION: GENERAL: The patient is alert and oriented x3, not in any acute distress. Well developed, well nourished. HEENT: Pupils are round and equally reacting to light. EOMI. No scleral icterus. No conjunctival pallor. Normocephalic, atraumatic. No pharyngeal erythema. No thyromegaly. CARDIOVASCULAR: S1 and S2 present. No murmurs, rubs, or gallops. PULMONARY: Chest is clear to auscultation, no wheezing or crackles. ABDOMEN: Soft, nontender, nondistended, normoactive bowel sounds. No palpable organomegaly. MUSCULOSKELETAL: No joint swelling or deformity. EXTREMITIES: No cyanosis, clubbing, or pedal edema. NEUROLOGICAL: Gross neurological examination did not reveal any focal deficits. SKIN: No rashes. - Labs CBC & Chem 7: 10/16/21 14:09 10/16/21 14:09 Labs: Abnormal Lab Results - Last 24 Hours (Table) 10/15/21 10/15/21 10/16/21 Range/Units 17:24 20:16 05:52 RBC (3.80-5.40) m/uL Hgb (11.4-16.0) gm/dL Hct (34.0-46.0) % Lymphocytes # (1.0-4.8) k/uL Sodium (137-145) mmol/L Potassium (3.5-5.1) mmol/L Carbon Dioxide (22-30) mmol/L BUN (7-17) mg/dL Creatinine 1.37 H (0.52-1.04) mg/dL Glucose (74-99) mg/dL POC Glucose (mg/dL) 189 H 219 H (75-99) mg/dL 10/16/21 10/16/21 10/16/21 Range/Units 07:19 11:45 14:09 RBC 2.79 L (3.80-5.40) m/uL Hgb 8.5 L D (11.4-16.0) gm/dL Hct 26.7 L (34.0-46.0) % Lymphocytes # 0.9 L (1.0-4.8) k/uL Sodium (137-145) mmol/L Potassium (3.5-5.1) mmol/L Carbon Dioxide (22-30) mmol/L BUN (7-17) mg/dL Creatinine (0.52-1.04) mg/dL Glucose (74-99) mg/dL POC Glucose (mg/dL) 131 H 210 H (75-99) mg/dL 10/16/21 Range/Units 14:09 RBC (3.80-5.40) m/uL Hgb (11.4-16.0) gm/dL Hct (34.0-46.0) % Lymphocytes # (1.0-4.8) k/uL Sodium 132 L (137-145) mmol/L Potassium 3.2 L (3.5-5.1) mmol/L Carbon Dioxide 20 L (22-30) mmol/L BUN 29 H (7-17) mg/dL Creatinine 1.35 H (0.52-1.04) mg/dL Glucose 205 H (74-99) mg/dL POC Glucose (mg/dL) (75-99) mg/dL Microbiology - Last 24 Hours (Table) 10/13/21 23:15 Blood Culture Gram Stain - Preliminary Blood Blood Culture - Preliminary Coagulase Negative Staph 10/13/21 23:02 Gram Stain - Final Foot - Left Wound Culture - Final Pseudomonas aeruginosa Strep agalactiae - (group b) Staphylococcus aureus 10/14/21 00:00 Blood Culture - Preliminary Blood No Growth after 48 hours 10/14/21 05:20 Urine Culture - Final Urine,Voided Assessment and Plan Assessment: 1. Infected Diabetic left foot wound - Patient presents with nonhealing left foot wound; patient has a recent history of left foot/toe gangrene and underwent transverse tarsal amputation; was discharged to skilled facility and presents with concern about wound dehiscence with secondary cellulitis and foul-smelling drainage from surgical site - Patient has been placed on IV vancomycin; pharmacy on board for dosing; further recommendations once culture results - ID recommending local wound care with wound VAC 2. Leukocytosis/sepsis; we'll continue with IV antibiotics per ID recommendations; we will monitor CBC, CRP and pro-calcitonin; awit wound and blood cultures 3. Hypertension; lisinopril 5 mg daily; hydralazine 50 mg 3 times a day 4. Hyperlipidemia; continue with home dose of simvastatin 5. Diabetes mellitus; controlled with insulin; continue with home dose of Lantus 12 units subcu daily at bedtime; monitor Accu-Cheks before meals and at bedtime with insulin sliding scale 6. CAD/CHF; patient remains on Plavix/statin and Lasix 7. Atrial fibrillation; patient remains rate controlled; continue with anticoagulation therapy with Xarelto 15 mg daily DVT prophylaxis; SCDs/systemic anticoagulation with Xarelto CODE STATUS; full code
[2021-10-16 20:14] LABS: Glucose,Whole Blood 236 mg/dL (75-99)
[2021-10-16] MEDS: CEFEPIME 2 GM in SODIUM CHLORIDE 0.9% 100 ML IVPB SCH (21:54)
[2021-10-17] MEDS: SODIUM CHLORIDE 0.9% 1,000 ML IV SCH ×4 (00:44→17:58)
[2021-10-17 07:21] LABS: African American GFR (CKD) 44 (>60 ml/min/1.73 sqM); Anion Gap 6 mmol/L; Blood Urea Nitrogen 24 mg/dL (7-17); Calcium 9.2 mg/dL (8.4-10.2); Carbon Dioxide 21 mmol/L (22-30); Chloride 107 mmol/L (98-107); Glucose 131 mg/dL (74-99); Non-African American GFR(CKD) 38 (>60 ml/min/1.73 sqM); Potassium 3.6 mmol/L (3.5-5.1); Sodium 134 mmol/L (137-145)
[2021-10-17 07:23] LABS: Glucose,Whole Blood 147 mg/dL (75-99)
[2021-10-17] MEDS ORDERED: VANCOMYCIN TROUGH DUE 1 EACH MISC MISCELLANE ONE (08:00)
[2021-10-17] MEDS: CLOPIDOGREL 75 MG TAB PO SCH (08:10)
[2021-10-17] MEDS: FUROSEMIDE 20 MG TAB PO SCH (08:10)
[2021-10-17] MEDS: INSULIN ASPART (NovoLOG) 100 UNIT/ML VIAL SQ SCH ×4 (08:10→20:58)
[2021-10-17] MEDS: ATORVASTATIN 10 MG TAB PO SCH (08:10)
[2021-10-17] MEDS: DOCUSATE 100 MG CAP PO SCH (08:10)
[2021-10-17] MEDS: hydrALAZINE HCL 50 MG TAB PO SCH ×2 (08:10→20:58)
[2021-10-17] MEDS: FERROUS SULFATE 325 MG TAB PO SCH ×2 (08:10→17:59)
[2021-10-17] MEDS: TAMSULOSIN 0.4 MG CAP.ER.24H PO SCH (08:11)
[2021-10-17] MEDS: CYANOCOBALAMIN 500 MCG TAB PO SCH (08:11)
[2021-10-17] MEDS: metroNIDAZOLE 500 MG TAB PO SCH ×3 (08:11→20:58)
[2021-10-17] MEDS: CEFEPIME 2 GM in SODIUM CHLORIDE 0.9% 100 ML IVPB SCH ×2 (08:11→20:58)
[2021-10-17] MEDS: RIVAROXABAN 15 MG TAB PO SCH (08:11)
[2021-10-17 10:48] LABS: Basophils # (A) 0.02 X 10*3/uL (0.00-0.10); Basophils % (A) 0.2 %; Eosinophils # (A) 0.28 X 10*3/uL (0.04-0.35); Eosinophils % (A) 3.2 %; HCT 25.5 % (37.2-46.3); HGB 8.2 g/dL (12.0-15.0); Immature Grans, Automated 1.1 %; Lymphocytes # (A) 1.15 X 10*3/uL (0.90-5.00); Lymphocytes % (A) 13.1 %; MCHC 32.2 g/dL (32.0-37.0); MCV 93.4 fL (80.0-97.0); Mean Platelet Volume 10.3 fL (9.5-12.2); Monocytes # (A) 0.82 X 10*3/uL (0.20-1.00); Monocytes % (A) 9.4 %; NRBC Per 100 WBC 0 /100 WBCS (0.0-0.0); Neutrophils # (A) 6.38 X 10*3/uL (1.80-7.70); Platelet Count 203 X 10*3/uL (140-440); RBC 2.73 X 10*6/uL (4.10-5.20); RDW 14.8 % (11.5-14.5); WBC 8.75 X 10*3/uL (4.50-10.00)
[2021-10-17 12:27] LABS: Glucose,Whole Blood 272 mg/dL (75-99)
[2021-10-17] MEDS: ACETAMINOPHEN TAB 325 MG TAB PO PRN ×2 (14:42→20:58)
[2021-10-17] MEDS: amLODIPine 10 MG TAB PO SCH (14:42)
--- NOTE | 2021-10-17 15:00 | PN ---
PROGRESS NOTE DATE OF SERVICE: 10/17/2021 This 81-year-old woman who was admitted with left foot wound dehiscence and cellulitis is being closely monitored. No chest pain. No palpitations. No fever. PHYSICAL EXAMINATION: Pulse is 56, blood pressure 170/66, respiration 17. HEENT: Conjunctivae normal. NECK: No jugular venous distention. CARDIOVASCULAR: S1, S2 muffled. RESPIRATION: Breath sounds diminished at the bases. A few scattered rhonchi. ABDOMEN: EXAMINATION OF FOOT: Foot ulcer. NERVOUS SYSTEM: No focal deficit. LAB: Hemoglobin 8.2. Other labs are noted. ASSESSMENT: 1. Acute left foot transmetatarsal wound dehiscence and cellulitis. 2. Left lower extremity wound, status post incision and drainage. 3. Urinary retention. 4. Hypertension. 5. Hyperlipidemia. 6. Diabetes mellitus, type 2. RECOMMENDATIONS AND DISCUSSION: I recommend to continue current medications, continue with the monitoring, symptomatic treatment. I would recommend continuing with the antibiotics. Closely follow with Vascular Surgery. Prognosis is guarded. Further recommendations to follow. MMODL / IJN: [id number] /
[2021-10-17 16:20] LABS: Glucose,Whole Blood 183 mg/dL (75-99)
[2021-10-17 19:55] LABS: Glucose,Whole Blood 243 mg/dL (75-99)
[2021-10-18] MEDS: SODIUM CHLORIDE 0.9% 1,000 ML IV SCH ×3 (06:09→19:17)
[2021-10-18 07:13] LABS: Glucose,Whole Blood 153 mg/dL (75-99)
[2021-10-18] MEDS: INSULIN ASPART (NovoLOG) 100 UNIT/ML VIAL SQ SCH ×4 (07:42→19:48)
[2021-10-18] MEDS: metroNIDAZOLE 500 MG TAB PO SCH ×3 (07:42→21:44)
[2021-10-18] MEDS: FUROSEMIDE 20 MG TAB PO SCH (07:43)
[2021-10-18] MEDS: CLOPIDOGREL 75 MG TAB PO SCH (07:43)
[2021-10-18] MEDS: CEFEPIME 2 GM in SODIUM CHLORIDE 0.9% 100 ML IVPB SCH ×2 (07:43→19:47)
[2021-10-18] MEDS: CYANOCOBALAMIN 500 MCG TAB PO SCH (07:43)
[2021-10-18] MEDS: DOCUSATE 100 MG CAP PO SCH (07:43)
[2021-10-18] MEDS: hydrALAZINE HCL 50 MG TAB PO SCH ×2 (07:43→19:48)
[2021-10-18] MEDS: amLODIPine 10 MG TAB PO SCH (07:43)
[2021-10-18] MEDS: RIVAROXABAN 15 MG TAB PO SCH (07:43)
[2021-10-18] MEDS: FERROUS SULFATE 325 MG TAB PO SCH ×2 (07:43→17:30)
[2021-10-18] MEDS: TAMSULOSIN 0.4 MG CAP.ER.24H PO SCH (07:43)
[2021-10-18] MEDS: ATORVASTATIN 10 MG TAB PO SCH (07:43)
--- NOTE | 2021-10-18 09:30 | P.PN ---
Subjective Progress Note Date: 10/18/21 Principal diagnosis: Nonhealing wound, infected wound Patient is seen and examined as a follow-up. She is status post a left foot wound debridement with wound VAC in place. Wound VAC was changed yesterday. She's been afebrile. She denies any fevers chills chest pain or shortness of breath. Pain is well controlled. Objective - Vital Signs Vital signs: Vital Signs Temp 97.7 F 10/18/21 04:04 Pulse 75 10/18/21 07:48 Resp 18 10/18/21 04:04 BP 162/68 10/18/21 07:48 Pulse Ox 100 10/18/21 04:04 FiO2 Intake & Output 10/17/21 10/18/21 10/18/21 18:59 06:59 18:59 Intake Total 1660 Output Total 1000 1700 Balance -1000 -40 Intake: Intake, IV Titration 1660 Amount Cefepime 2 gm In Sodium 100 Chloride 0.9% 100 ml @ 25 mls/hr IVPB Q12HR [facility] Rx #:[id number] Sodium Chloride 0.9% 1, 1560 000 ml @ 130 mls/hr IV . Q7H42M [facility] Rx#:[id number] Output: Urine 1000 1700 Other: Voiding Method Indwelling Catheter Indwelling Catheter - Exam General appearance: The patient is alert, oriented, appears in no acute distress. HET: Head is normocephalic and atraumatic. Neck: Supple without lymphadenopathy. Trachea midline. Heart: Regular rate. Lungs: Equal expansion. Abdomen: Soft, nontender, nondistended. Extremities: Left lower extremity TMA site with wound VAC in place with good suction. Right lower extremity foot with dressing clean dry and intact. Neurological: No focal deficits. - Labs CBC & Chem 7: 10/17/21 06:20 10/17/21 06:20 Labs: Abnormal Lab Results - Last 24 Hours (Table) 10/17/21 10/17/21 10/17/21 Range/Units 06:20 12:26 16:19 RBC 2.73 L (4.10-5.20) X 10*6/uL Hgb 8.2 L (12.0-15.0) g/dL Hct 25.5 L (37.2-46.3) % RDW 14.8 H (11.5-14.5) % Immature Gran # 0.10 H (0.00-0.04) X 10*3/uL POC Glucose (mg/dL) 272 H 183 H (75-99) mg/dL 10/17/21 10/18/21 Range/Units 19:45 07:12 RBC (4.10-5.20) X 10*6/uL Hgb (12.0-15.0) g/dL Hct (37.2-46.3) % RDW (11.5-14.5) % Immature Gran # (0.00-0.04) X 10*3/uL POC Glucose (mg/dL) 243 H 153 H (75-99) mg/dL Microbiology - Last 24 Hours (Table) 10/14/21 00:00 Blood Culture - Preliminary Blood No Growth after 96 hours 10/14/21 11:06 Anaerobic Culture - Final Foot - Left Anaerobic Gm Negative Bacilli Anaerobic Gm Negative Bacilli#2 10/13/21 23:15 Blood Culture Gram Stain - Final Blood Blood Culture - Final Staphylococcus aureus Assessment and Plan Assessment: 1. Left foot wound status post debridement with wound VAC 2. Nonhealing left foot wound with infection 3. Diabetes mellitus Plan: 1. Continue wound VAC, change Sunday 2. Continue antibiotics per infectious disease 3. Physical therapy, nonweightbearing on left foot 4. The patient is cleared by vascular surgery for discharge. Follow-up wound care clinic. Don't forget the areas. The impression and plan of care has been dictated as directed. I performed a history and examination of this patient, discussed the same with the dictator. I agree with the dictator's note ,documented as a scribe. Any additional findings or plans will be noted.
[2021-10-18 10:41] LABS: Basophils # (A) 0.02 X 10*3/uL (0.00-0.10); Basophils % (A) 0.2 %; Eosinophils # (A) 0.28 X 10*3/uL (0.04-0.35); Eosinophils % (A) 2.7 %; HCT 26.7 % (37.2-46.3); HGB 8.8 g/dL (12.0-15.0); Immature Grans, Automated 1.6 %; Lymphocytes # (A) 0.96 X 10*3/uL (0.90-5.00); Lymphocytes % (A) 9.4 %; MCV 91.1 fL (80.0-97.0); Mean Platelet Volume 10.1 fL (9.5-12.2); Monocytes # (A) 0.76 X 10*3/uL (0.20-1.00); Monocytes % (A) 7.4 %; NRBC Per 100 WBC 0 /100 WBCS (0.0-0.0); Neutrophils # (A) 8.04 X 10*3/uL (1.80-7.70); Neutrophils % (A) 78.7 %; Platelet Count 224 X 10*3/uL (140-440); RBC 2.93 X 10*6/uL (4.10-5.20); RDW 14.7 % (11.5-14.5); WBC 10.22 X 10*3/uL (4.50-10.00)
[2021-10-18 11:01] LABS: African American GFR (CKD) 37.7 (60.0-200.0); Albumin 2.7 g/dL (3.8-4.9); Albumin/Globulin Ratio 0.84 (1.60-3.17); Anion Gap 13.5 mmol/L (10.00-18.00); BUN/Creat Ratio 13.2 Ratio (12.00-20.00); Blood Urea Nitrogen 19.8 mg/dL (9.0-27.0); Calcium 9.3 mg/dL (8.7-10.3); Carbon Dioxide 19.5 mmol/L (20.0-27.5); Globulin 3.2 g/dL (1.6-3.3); Non-African American GFR(CKD) 32.6 (60.0-200.0); Potassium 3.5 mmol/L (3.5-5.5); Total Bilirubin 0.4 mg/dL (0.30-1.20); Total Protein 5.9 g/dL (6.2-8.2)
[2021-10-18 11:08] LABS: Glucose,Whole Blood 278 mg/dL (75-99)
[2021-10-18 11:13] LABS: C Reactive Protein 12.6 mg/dL (0.00-0.80)
--- NOTE | 2021-10-18 12:33 | CDI ---
Documentation Clarification Form Date: 10/18/2021 12:16:05 PM From: Marlena Morejon RN CCDS Admit Date: 10/13/2021 11:36:00 PM Patient Name: Marylu Chavez Visit Number: [id number] Discharge Date: ATTENTION: The Clinical Documentation Specialists (CDI) and [facility] Coding Staff appreciate your assistance in clarifying documentation. Please respond to the clarification below the line at the bottom and electronically sign. The CDI & [facility] Coding staff will review the response and follow-up if needed. Please note: Queries are made part of the Legal Health Record. If you have any questions, please contact the author of this message via ITS. Dr. Faviola Robert Sepsis is documented H&P and medicine progress notes, 10/14 10/16, but is not noted in subsequent documentation. Clarification is requested. History/Risk Factors:81-year-old female presents to the ED with left foot dehiscence with foul smelling drainage. Medical History: DM, CHF, CAD and recent left foot/toe gangrene with transverse tarsal amputation. Clinical Indicators: VSS 10/13: B/P 124/58, HR 65, Temp 99.6 F Oral, RR 18, SpO2 98% ra LABS 10/14: Wbc 16.0; Hgb 11.0; Neutrophils 12.9; Pt 12.5, INR 1.2, NA 125, CHL 91, BUN 51, Cr 2.02, Glucose 244; Creatinine Kinase 22; CRP 8.0. Treatment: 10/13 current 0.9ns 130cchr; 10/13 Vancomycin 1,250mg IVPB x 1; 10/14 Vancomycin 1,250mg IVPB x 1; 10/15 10/16 Vancomycin 1,250mg IVPB Q24H; 10/16 current Cefepime HCI 2gm IVPB Q12HR; 10/13 Ampicillin Sodium/ Sulbactam Sodium 1.5gm IVPB x 1; 10/14- 10/15 Ampicillin Sodium/ Sulbactam Sodium 1.5gm IVPB Q6HR; 10/15 10/16 Ampicillin Sodium/ Sulbactam Sodium 1.5gm IVPB Q12H. Please clarify if the Sepsis is: [ ] Sepsis confirmed, remains under treatment [ ] Sepsis confirmed, resolved [ ] Sepsis ruled out [ ] Other condition, please specify [ ] Unable to determine (Template Last Revised: July Sepsis confirmed, remains under treatment1) MTDD
--- NOTE | 2021-10-18 12:48 | CDI ---
Documentation Clarification Form Date: 10/18/2021 12:33:56 PM From: Marlena Morejon RN CCDS Admit Date: 10/13/2021 11:36:00 PM Patient Name: Marylu Chavez Visit Number: [id number] Discharge Date: ATTENTION: The Clinical Documentation Specialists (CDI) and [facility] Coding Staff appreciate your assistance in clarifying documentation. Please respond to the clarification below the line at the bottom and electronically sign. The CDI & [facility] Coding staff will review the response and follow-up if needed. Please note: Queries are made part of the Legal Health Record. If you have any questions, please contact the author of this message via ITS. Dr. Dr. Faviola Robert Your patient has the documented diagnosis of unspecified CHF 10/14 10/16, H&P and Medicine progress notes. Additional information regarding the type, acuity of CHF is requested. History/Risk Factors:81-year-old female presents to the ED with left foot dehiscence with foul smelling drainage. Medical History: DM, CHF, CAD and recent left foot/toe gangrene with transverse tarsal amputation. Clinical Indicators: VSS 10/13: B/P 124/58, HR 65, Temp 99.6 F Oral, RR 18, SpO2 98% ra Echocardiogram Results: 07/12/2021 EF 50-55% LA severely dilated >40ml/m2, Mild aortic valve sclerosis, Moderate mitral regurgitation, Mild Tricuspid regurgitation. Moderate to severe pulmonary hypertension Treatment: 10/14 current Lasix PO 20mg Daily; 10/14 current Apresoline 50mg po BID. In your professional opinion, can you please clarify the acuity and type of CHF if known? [ ] Chronic Diastolic Heart Failure (preserved EF) [ ] CHF ruled out [ ] Other, please specify [ ] Unable to determine (Template Last Revised: June 2020) Chronic Diastolic Heart Failure (preserved EF) MTDD
[2021-10-18] MEDS: ACETAMINOPHEN TAB 325 MG TAB PO PRN (12:49)
[2021-10-18 12:51] LABS: Erythrocyte Sedimentation Rate 81 mm/Hr (0-30)
--- NOTE | 2021-10-18 14:17 | P.PN ---
Subjective Progress Note Date: 10/18/21 Left foot transmetatarsal wound dehiscence and cellulitis Left lower extremity nonhealing wound, infection; status post Sharp excisional debridement Urinary retention 81-year-old female with a past medical history significant for diabetes mellitus patient did have a recent history of left fourth and fifth toe gangrene and this patient was status post left transmetatarsal amputation patient was subsequently [facility] the local [facility], while at the [facility] the patient did have dehiscence of the left foot transmetatarsal amputation site incision, patient was evaluated in the wound care center yesterday with the patient was noticed to be febrile he did have significant foul-smelling drainage with associated swelling and redness to the left foot wound patient be c omplaining of feeling weak and tired and no energy for the last few days patient was subsequently referred to the ER, the patient was evaluated by the ER physician on arrival to the ER the patient was afebrile did have elevated white count, patient did have x-ray of the foot which he did shows soft tissue a.ir suspicious for cellulitis or gangrene patient was evaluated by vascular surgery this morning and was taken to the OR and status post debridement of the wound patient had been started on vancomycin and Unasyn and infectious disease was consulted for further management, patient at time of evaluation denies having any fever or chills pain to the left foot is currently controlled no chest pain shortness of breath or cough no nausea no vomiting no abdominal pain no diarrhea Patient is seen and evaluated with multiple family members at bedside; concerns about episodes of confusion; vital signs remained stable - Detailed discussion about current condition and plans of care and likelihood of metabolic/toxic encephalopathy discussed with patient's family; we did agree with neuro consult if no improvement in mental status with treatment 10/16/2021 Patient is seen and evaluated in room at bedside; patient is more awake and alert this morning; daughters are present in the room and report improved mentation Labs are reviewed and reveal WBC of 7.7, hemoglobin 8.5, platelet count of 201, sodium 132, potassium 3.2, BUN/creatinine of 29/1.35 and blood glucose of 189 Patient remains on IV cefepime 2 g IV every 12 hours and metronidazole 500 mg by mouth 3 times a day per ID recommendations 10/18/2021 Patient is seen in follow-up this morning currently sitting up in the chair and continues with wound VAC to the left foot and maintained on IV antibiotics with infectious disease following. Patient was evaluated by vascular surgery today recommending outpatient follow-up and continue with wound care and wound VAC. Patient was admitted with left foot wound dehiscence and cellulitis with features of sepsis, present on admission. Awaiting finalized cultures and will need to discuss with infectious disease about discharge planning. Daughter is adamant about having the patient return home as she has her caregiver and will continue with PT/OT therapy for now and patient is to remain nonweightbearing of that left lower extremity with the wound VAC. PT/OT therapy recommending subacute rehab. Patient denies any chest pain or shortness of breath. Patient is afebrile. Patient denies nausea or vomiting and tolerating diet. Patient is extremely anxious and wanting to go home today. Review of systems: Constitutional: No reports of fatigue, fever, or chills Cardiovascular: No reports of chest pain or palpitations Respiratory: No reports of shortness of breath or cough GI: No reports of nausea, vomiting, or diarrhea : No reports of dysuria or retention Neurovascular: No reports of weakness or numbness All medications have been reviewed Active Medications Acetaminophen (Acetaminophen Tab 325 Mg Tab) 650 mg PO Q6HR PRN PRN Reason: Mild Pain or Fever > 100.5 Last Admin: 10/18/21 12:49 Dose: 650 mg Amlodipine Besylate (Amlodipine 10 Mg Tab) 10 mg PO DAILY [facility] Last Admin: 10/18/21 07:43 Dose: 10 mg Atorvastatin Calcium (Atorvastatin 10 Mg Tab) 10 mg PO DAILY [facility] Last Admin: 10/18/21 07:43 Dose: 10 mg Clopidogrel Bisulfate (Clopidogrel 75 Mg Tab) 75 mg PO DAILY [facility] Last Admin: 10/18/21 07:43 Dose: 75 mg Cyanocobalamin (Cyanocobalamin 500 Mcg Tab) 500 mcg PO DAILY [facility] Last Admin: 10/18/21 07:43 Dose: 500 mcg Docusate Sodium (Docusate 100 Mg Cap) 100 mg PO DAILY [facility] Last Admin: 10/18/21 07:43 Dose: 100 mg Ferrous Sulfate (Ferrous Sulfate 325 Mg Tab) 325 mg PO BID-W/MEALS [facility] Last Admin: 10/18/21 07:43 Dose: 325 mg Furosemide (Furosemide 20 Mg Tab) 20 mg PO DAILY [facility] Last Admin: 10/18/21 07:43 Dose: 20 mg Hydralazine HCl (Hydralazine Hcl 50 Mg Tab) 50 mg PO BID [facility] Last Admin: 10/18/21 07:43 Dose: 50 mg Sodium Chloride (Saline 0.9%) 1,000 mls @ 130 mls/hr IV .Q7H42M [facility] Last Admin: 10/18/21 12:01 Dose: Not Given Cefepime HCl 2 gm/ Sodium (Chloride) 100 mls @ 25 mls/hr IVPB Q12HR [facility]; Protocol Last Admin: 10/18/21 07:43 Dose: 25 mls/hr Insulin Aspart (Insulin Aspart (Novolog) 100 Unit/Ml Vial) 0 unit SQ ACHS [facility]; Protocol Last Admin: 10/18/21 12:49 Dose: 4 unit Metronidazole (Metronidazole 500 Mg Tab) 500 mg PO TID [facility]; Protocol Last Admin: 10/18/21 07:42 Dose: 500 mg Naloxone HCl (Naloxone 0.4 Mg/Ml 1 Ml Vial) 0.2 mg IV Q2M PRN PRN Reason: Opioid Reversal Polyethylene Glycol (Polyethylene Glycol 3350 17 Gm Powd.Pack) 17 gm PO DAILY PRN PRN Reason: Constipation Rivaroxaban (Rivaroxaban 15 Mg Tab) 15 mg PO DAILY [facility]; Protocol Last Admin: 10/18/21 07:43 Dose: 15 mg Tamsulosin HCl (Tamsulosin 0.4 Mg Cap.Er.24h) 0.4 mg PO PC-BRKFST [facility] Last Admin: 10/18/21 07:43 Dose: 0.4 mg PHYSICAL EXAMINATION: GENERAL: The patient is alert and oriented x3. Well developed, well nourished. HEENT: Pupils are round and equally reacting to light. EOMI. No scleral icterus. No conjunctival pallor. Normocephalic, atraumatic. No pharyngeal erythema. No thyromegaly. CARDIOVASCULAR: S1 and S2 muffled PULMONARY: Diminished breath sounds bilaterally with some scattered rhonchi noted ABDOMEN: Soft, nontender, nondistended, normoactive bowel sounds. No palpable organomegaly. MUSCULOSKELETAL: No joint swelling or deformity. EXTREMITIES: No cyanosis, clubbing, or pedal edema. Left lower foot extremity with wound VAC NEUROLOGICAL: Gross neurological examination did not reveal any focal deficits. Diffuse weakness SKIN: No rashes. Assessment: Acute left foot transmetatarsal wound dehiscence and cellulitis Left lower extremity wound, status post incision and drainage Leukocytosis with features of sepsis, present on admission most likely secondary to infected diabetic left foot wound with surrounding cellulitis Chronic congestive heart failure with preserved EF, most recent EF was 50-55% in June 2021 Permanent atrial fibrillation Urinary retention Hypertension Hyperlipidemia Diabetes mellitus type 2 GI prophylaxis next line DVT prophylaxis Full code Plan: Patient is currently maintained on IV antibiotics with multiple medical consultations including vascular surgery infectious disease, and urology following. Patient having some urinary retention requiring indwelling Don catheter and has been evaluated by urology recommending trial voiding prior to discharge and patient was started on Flomax and will continue. Patient also continues on oral Flagyl along with IV cefepime while awaiting for cultures to finalized. Patient with weakness and is to be nonweightbearing of that left lower extremity with the wound VAC and is being evaluated by PT/OT therapy recommending ECF for continued rehab to build up strength and mobility and will be discussed further with case management along with daughter whom she lives wit h about discharge planning. Awaiting cultures at this time and will continue with local wound care and wound VAC. Due to multiple complex medical issues, prognosis is guarded. The impression and plan of care has been dictated by Mildred Swift, Nurse Practitioner as directed. Dr. Jakob MD I have performed a history and examination and MDM of this patient, discussed the same with the dictator, and agree with the dictator's assessment and plan as written ,documented as a scribe. Based on total visit time, I have performed more than 50% of the visit. Objective - Vital Signs Vital signs: Vital Signs Temp 99.3 F 10/18/21 12:30 Pulse 62 10/18/21 12:30 Resp 13 10/18/21 12:30 BP 152/67 10/18/21 12:30 Pulse Ox 100 10/18/21 12:30 FiO2 Intake & Output 10/17/21 10/18/21 10/18/21 18:59 06:59 18:59 Intake Total 1660 Output Total 1000 1700 1500 Balance -1000 -40 -1500 Intake: Intake, IV Titration 1660 Amount Cefepime 2 gm In Sodium 100 Chloride 0.9% 100 ml @ 25 mls/hr IVPB Q12HR [facility] Rx #:[id number] Sodium Chloride 0.9% 1, 1560 000 ml @ 130 mls/hr IV . Q7H42M [facility] Rx#:[id number] Output: Urine 1000 1700 1500 Other: Voiding Method Indwelling Catheter Indwelling Catheter Indwelling Catheter - Labs CBC & Chem 7: 10/18/21 06:53 10/18/21 06:53 Labs: Abnormal Lab Results - Last 24 Hours (Table) 10/17/21 10/17/21 10/18/21 Range/Units 16:19 19:45 06:53 WBC 10.22 H (4.50-10.00) X 10*3/uL RBC 2.93 L (4.10-5.20) X 10*6/uL Hgb 8.8 L (12.0-15.0) g/dL Hct 26.7 L (37.2-46.3) % RDW 14.7 H (11.5-14.5) % Immature Gran # 0.16 H (0.00-0.04) X 10*3/uL Neutrophils # 8.04 H (1.80-7.70) X 10*3/uL Carbon Dioxide (20.0-27.5) mmol/L Est GFR (CKD-EPI)AfAm (60.0-200.0) Est GFR (CKD-EPI)NonAf (60.0-200.0) Glucose (70-110) mg/dL POC Glucose (mg/dL) 183 H 243 H (75-99) mg/dL Alkaline Phosphatase (41-126) U/L C-Reactive Protein (0.00-0.80) mg/dL Total Protein (6.2-8.2) g/dL Albumin (3.8-4.9) g/dL Albumin/Globulin Ratio (1.60-3.17) g/dL 10/18/21 10/18/21 10/18/21 Range/Units 06:53 07:12 11:06 WBC (4.50-10.00) X 10*3/uL RBC (4.10-5.20) X 10*6/uL Hgb (12.0-15.0) g/dL Hct (37.2-46.3) % RDW (11.5-14.5) % Immature Gran # (0.00-0.04) X 10*3/uL Neutrophils # (1.80-7.70) X 10*3/uL Carbon Dioxide 19.5 L (20.0-27.5) mmol/L Est GFR (CKD-EPI)AfAm 37.7 L (60.0-200.0) Est GFR (CKD-EPI)NonAf 32.6 L (60.0-200.0) Glucose 142 H (70-110) mg/dL POC Glucose (mg/dL) 153 H 278 H (75-99) mg/dL Alkaline Phosphatase 166 H (41-126) U/L C-Reactive Protein 12.60 H (0.00-0.80) mg/dL Total Protein 5.9 L (6.2-8.2) g/dL Albumin 2.7 L (3.8-4.9) g/dL Albumin/Globulin Ratio 0.84 L (1.60-3.17) g/dL Microbiology - Last 24 Hours (Table) 10/14/21 00:00 Blood Culture - Preliminary Blood No Growth after 96 hours 10/14/21 11:06 Anaerobic Culture - Final Foot - Left Anaerobic Gm Negative Bacilli Anaerobic Gm Negative Bacilli#2 10/13/21 23:15 Blood Culture Gram Stain - Final Blood Blood Culture - Final Staphylococcus aureus
[2021-10-18 17:05] LABS: Glucose,Whole Blood 172 mg/dL (75-99)
[2021-10-18 19:38] LABS: Glucose,Whole Blood 196 mg/dL (75-99)
[2021-10-19] MEDS: SODIUM CHLORIDE 0.9% 1,000 ML IV SCH ×3 (03:44→19:08)
[2021-10-19 07:02] LABS: Glucose,Whole Blood 164 mg/dL (75-99)
--- NOTE | 2021-10-19 08:00 | P.PN ---
Subjective Progress Note Date: 10/16/21 Principal diagnosis: Left foot transmetatarsal wound dehiscence and cellulitis Patient is a 81-year-old female who was recently admitted at this facility and status post transmetatarsal Amputation of the left foot, subsequently admitted to the hospital with left foot wound dehiscence and secondary cellulitis. Patient was taken to the OR 527 to status post debridement of the wound and deep cultures. On today's evaluation that is 10/16/2021, the patient remains to be afebrile, the patient denies any chest pain or shortness of breath or cough. The patient pain to the left foot is currently controlled no nausea no vomiting and no diarrhea Objective - Vital Signs Vital signs: Vital Signs Temp 99.4 F 10/16/21 08:03 Pulse 63 10/16/21 08:03 Resp 16 10/16/21 08:03 BP 154/67 10/16/21 08:03 Pulse Ox 99 10/16/21 08:03 FiO2 Intake & Output 10/15/21 10/16/21 10/16/21 18:59 06:59 18:59 Intake Total 50 590 Output Total 1000 700 Balance -950 -110 Intake: Intake, IV Titration 50 Amount Ampicillin-Sulbactam 1.5 50 gm In Sodium Chloride 0.9 % 50 ml @ 100 mls/hr IVPB Q6HR [facility] Rx#:[id number] Oral 590 Output: Urine 1000 700 Straight 700 Other: Voiding Method Bedpan Diaper Diaper Diaper Indwelling Catheter Indwelling Catheter - Exam GENERAL DESCRIPTION: An elderly female lying in bed in no distress RESPIRATORY SYSTEM: Unlabored breathing , decreased breath sounds at bases HEART: S1 S2 regular rate and rhythm , ABDOMEN: Soft , no tenderness EXTREMITIES: Left foot wound is currently covered with a wound VAC - Labs CBC & Chem 7: 10/18/21 06:53 10/18/21 06:53 Labs: Abnormal Lab Results - Last 24 Hours (Table) 10/15/21 10/15/21 10/16/21 Range/Units 17:24 20:16 05:52 Creatinine 1.37 H (0.52-1.04) mg/dL POC Glucose (mg/dL) 189 H 219 H (75-99) mg/dL 10/16/21 10/16/21 Range/Units 07:19 11:45 Creatinine (0.52-1.04) mg/dL POC Glucose (mg/dL) 131 H 210 H (75-99) mg/dL Microbiology - Last 24 Hours (Table) 10/13/21 23:02 Gram Stain - Final Foot - Left Wound Culture - Final Pseudomonas aeruginosa Strep agalactiae - (group b) Staphylococcus aureus 10/14/21 00:00 Blood Culture - Preliminary Blood No Growth after 48 hours 10/13/21 23:15 Blood Culture Gram Stain - Preliminary Blood Blood Culture - Preliminary Coagulase Negative Staph 10/14/21 05:20 Urine Culture - Final Urine,Voided Assessment and Plan (1) Diabetic infection of left foot Current Visit: Yes Status: Acute Code(s): E11.628 - TYPE 2 DIABETES MELLITUS WITH OTHER SKIN COMPLICATIONS; L08.9 - LOCAL INFECTION OF THE SKIN AND SUBCUTANEOUS TISSUE, UNSP SNOMED Code(s): 24184967 Plan: 1patient with recent history of left foot/toes gangrene in this patient who is status post transmetatarsal amputation now presented to hospital with dehiscence of the wound and concern for secondary cellulitis with significant foul-smelling drainage in this patient status post debridement and cultures are currently pending. Cultures are now growing Pseudomonas MSSA 2discontinue Unasyn and vancomycin started the patient on cefepime and Flagyl 3local wound care with a wound VAC which will be changed Sunday ay. Time with Patient: Less than 30
--- NOTE | 2021-10-19 08:01 | P.PN ---
Subjective Progress Note Date: 10/17/21 Principal diagnosis: Left foot transmetatarsal wound dehiscence and cellulitis Patient is a 81-year-old female who was recently admitted at this facility and status post transmetatarsal Amputation of the left foot, subsequently admitted to the hospital with left foot wound dehiscence and secondary cellulitis. Patient was taken to the OR 527 to status post debridement of the wound and deep cultures. On today's evaluation that is 10/17/2021, the patient continues to be afebrile, the patient denies any chest pain or shortness of breath or cough. The patient denies pain to the left foot, the patient denies nausea no vomiting and no diarrhea Objective - Vital Signs Vital signs: Vital Signs Temp 99.2 F 10/17/21 20:27 Pulse 56 L 10/17/21 20:55 Resp 18 10/17/21 20:27 BP 140/60 10/17/21 20:55 Pulse Ox 98 10/17/21 20:27 FiO2 Intake & Output 10/17/21 10/17/21 10/18/21 06:59 18:59 06:59 Intake Total 1660 Output Total 1500 1000 Balance 160 -1000 Intake: Intake, IV Titration 1660 Amount Potassium Chloride 10 meq 100 In Water For Injection 1 100ml.bag @ 100 mls/hr IVPB Q1H [facility] Rx#: [id number] Sodium Chloride 0.9% 1, 1560 000 ml @ 130 mls/hr IV . Q7H42M [facility] Rx#:[id number] Output: Urine 1500 1000 Other: Voiding Method Indwelling Catheter Indwelling Catheter Indwelling Catheter - Exam GENERAL DESCRIPTION: An elderly female lying in bed in no distress RESPIRATORY SYSTEM: Unlabored breathing , decreased breath sounds at bases HEART: S1 S2 regular rate and rhythm , ABDOMEN: Soft , no tenderness EXTREMITIES: Left foot wound is currently covered with a wound VAC - Labs CBC & Chem 7: 10/18/21 06:53 10/18/21 06:53 Labs: Abnormal Lab Results - Last 24 Hours (Table) 10/17/21 10/17/21 10/17/21 Range/Units 06:20 06:20 07:22 RBC 2.73 L (4.10-5.20) X 10*6/uL Hgb 8.2 L (12.0-15.0) g/dL Hct 25.5 L (37.2-46.3) % RDW 14.8 H (11.5-14.5) % Immature Gran # 0.10 H (0.00-0.04) X 10*3/uL Sodium 134 L (137-145) mmol/L Carbon Dioxide 21 L (22-30) mmol/L BUN 24 H (7-17) mg/dL Creatinine 1.33 H (0.52-1.04) mg/dL Glucose 131 H (74-99) mg/dL POC Glucose (mg/dL) 147 H (75-99) mg/dL 10/17/21 10/17/21 10/17/21 Range/Units 12:26 16:19 19:45 RBC (4.10-5.20) X 10*6/uL Hgb (12.0-15.0) g/dL Hct (37.2-46.3) % RDW (11.5-14.5) % Immature Gran # (0.00-0.04) X 10*3/uL Sodium (137-145) mmol/L Carbon Dioxide (22-30) mmol/L BUN (7-17) mg/dL Creatinine (0.52-1.04) mg/dL Glucose (74-99) mg/dL POC Glucose (mg/dL) 272 H 183 H 243 H (75-99) mg/dL Microbiology - Last 24 Hours (Table) 10/14/21 11:06 Anaerobic Culture - Final Foot - Left Anaerobic Gm Negative Bacilli Anaerobic Gm Negative Bacilli#2 10/13/21 23:15 Blood Culture Gram Stain - Final Blood Blood Culture - Final Staphylococcus aureus 10/14/21 00:00 Blood Culture - Preliminary Blood No Growth after 72 hours 10/14/21 11:06 Gram Stain - Final Foot - Left Wound Culture - Final Assessment and Plan (1) Diabetic infection of left foot Current Visit: Yes Status: Acute Code(s): E11.628 - TYPE 2 DIABETES MELLITUS WITH OTHER SKIN COMPLICATIONS; L08.9 - LOCAL INFECTION OF THE SKIN AND SUBCUTANEOUS TISSUE, UNSP SNOMED Code(s): 19587926 Plan: 1patient with recent history of left foot/toes gangrene in this patient who is status post transmetatarsal amputation now presented to hospital with dehiscence of the wound and concern for secondary cellulitis with significant foul-smelling drainage in this patient status post debridement and cultures are currently pending. Cultures are now growing Pseudomonas MSSA, blood cultures with MSSA 2patient to continue with cefepime and Flagyl 3local wound care with a wound VAC which will be changed Sunday. Time with Patient: Less than 30
--- NOTE | 2021-10-19 08:02 | P.PN ---
Subjective Progress Note Date: 10/18/21 Principal diagnosis: Left foot transmetatarsal wound dehiscence and cellulitis Patient is a 81-year-old female who was recently admitted at this facility and status post transmetatarsal Amputation of the left foot, subsequently admitted to the hospital with left foot wound dehiscence and secondary cellulitis. Patient was taken to the OR 527 to status post debridement of the wound and deep cultures. On today's evaluation that is 10/18/2021, the patient denies any fever or chills, the patient is breathing comfortably on room air denies any chest pain or cough no abdominal pain or pain to the left foot wound area Objective - Vital Signs Vital signs: Vital Signs Temp 99.3 F 10/18/21 12:30 Pulse 62 10/18/21 12:30 Resp 13 10/18/21 12:30 BP 152/67 10/18/21 12:30 Pulse Ox 100 10/18/21 12:30 FiO2 Intake & Output 10/17/21 10/18/21 10/18/21 18:59 06:59 18:59 Intake Total 1660 Output Total 1000 1700 1500 Balance -1000 -40 -1500 Intake: Intake, IV Titration 1660 Amount Cefepime 2 gm In Sodium 100 Chloride 0.9% 100 ml @ 25 mls/hr IVPB Q12HR [facility] Rx #:[id number] Sodium Chloride 0.9% 1, 1560 000 ml @ 130 mls/hr IV . Q7H42M [facility] Rx#:[id number] Output: Urine 1000 1700 1500 Other: Voiding Method Indwelling Catheter Indwelling Catheter Indwelling Catheter - Exam GENERAL DESCRIPTION: An elderly female lying in bed in no distress RESPIRATORY SYSTEM: Unlabored breathing , decreased breath sounds at bases HEART: S1 S2 regular rate and rhythm , ABDOMEN: Soft , no tenderness EXTREMITIES: Left foot wound is currently covered with a wound VAC - Labs CBC & Chem 7: 10/18/21 06:53 10/18/21 06:53 Labs: Abnormal Lab Results - Last 24 Hours (Table) 10/17/21 10/17/21 10/18/21 Range/Units 16:19 19:45 06:53 WBC 10.22 H (4.50-10.00) X 10*3/uL RBC 2.93 L (4.10-5.20) X 10*6/uL Hgb 8.8 L (12.0-15.0) g/dL Hct 26.7 L (37.2-46.3) % RDW 14.7 H (11.5-14.5) % Immature Gran # 0.16 H (0.00-0.04) X 10*3/uL Neutrophils # 8.04 H (1.80-7.70) X 10*3/uL Carbon Dioxide (20.0-27.5) mmol/L Est GFR (CKD-EPI)AfAm (60.0-200.0) Est GFR (CKD-EPI)NonAf (60.0-200.0) Glucose (70-110) mg/dL POC Glucose (mg/dL) 183 H 243 H (75-99) mg/dL Alkaline Phosphatase (41-126) U/L C-Reactive Protein (0.00-0.80) mg/dL Total Protein (6.2-8.2) g/dL Albumin (3.8-4.9) g/dL Albumin/Globulin Ratio (1.60-3.17) g/dL 10/18/21 10/18/21 10/18/21 Range/Units 06:53 07:12 11:06 WBC (4.50-10.00) X 10*3/uL RBC (4.10-5.20) X 10*6/uL Hgb (12.0-15.0) g/dL Hct (37.2-46.3) % RDW (11.5-14.5) % Immature Gran # (0.00-0.04) X 10*3/uL Neutrophils # (1.80-7.70) X 10*3/uL Carbon Dioxide 19.5 L (20.0-27.5) mmol/L Est GFR (CKD-EPI)AfAm 37.7 L (60.0-200.0) Est GFR (CKD-EPI)NonAf 32.6 L (60.0-200.0) Glucose 142 H (70-110) mg/dL POC Glucose (mg/dL) 153 H 278 H (75-99) mg/dL Alkaline Phosphatase 166 H (41-126) U/L C-Reactive Protein 12.60 H (0.00-0.80) mg/dL Total Protein 5.9 L (6.2-8.2) g/dL Albumin 2.7 L (3.8-4.9) g/dL Albumin/Globulin Ratio 0.84 L (1.60-3.17) g/dL Microbiology - Last 24 Hours (Table) 10/14/21 00:00 Blood Culture - Preliminary Blood No Growth after 96 hours 10/14/21 11:06 Anaerobic Culture - Final Foot - Left Anaerobic Gm Negative Bacilli Anaerobic Gm Negative Bacilli#2 10/13/21 23:15 Blood Culture Gram Stain - Final Blood Blood Culture - Final Staphylococcus aureus Assessment and Plan (1) Diabetic infection of left foot Current Visit: Yes Status: Acute Code(s): E11.628 - TYPE 2 DIABETES MELLITUS WITH OTHER SKIN COMPLICATIONS; L08.9 - LOCAL INFECTION OF THE SKIN AND SUBCUTANEOUS TISSUE, UNSP SNOMED Code(s): 56618942 Plan: 1patient with recent history of left foot/toes gangrene in this patient who is status post transmetatarsal amputation now presented to hospital with dehiscence of the wound and concern for secondary cellulitis with significant foul-smelling drainage in this patient status post debridement and cultures are currently pending. Cultures are now growing Pseudomonas MSSA, 2-blood cultures with MSSA, blood cultures were repeated document clearance of bacteremia 2patient to continue with cefepime and Flagyl, patient with need PICC line and outpatient IV antibiotics 3local wound care with a wound VAC which will be changed Sunday. Time with Patient: Less than 30
[2021-10-19] MEDS: CEFEPIME 2 GM in SODIUM CHLORIDE 0.9% 100 ML IVPB SCH ×2 (09:12→21:03)
[2021-10-19] MEDS: amLODIPine 10 MG TAB PO SCH (09:23)
[2021-10-19] MEDS: metroNIDAZOLE 500 MG TAB PO SCH ×3 (09:23→22:01)
[2021-10-19] MEDS: hydrALAZINE HCL 50 MG TAB PO SCH ×2 (09:23→21:01)
[2021-10-19] MEDS: FERROUS SULFATE 325 MG TAB PO SCH ×2 (09:23→17:33)
[2021-10-19] MEDS: DOCUSATE 100 MG CAP PO SCH (09:23)
[2021-10-19] MEDS: CYANOCOBALAMIN 500 MCG TAB PO SCH (09:23)
[2021-10-19] MEDS: CLOPIDOGREL 75 MG TAB PO SCH (09:23)
[2021-10-19] MEDS: TAMSULOSIN 0.4 MG CAP.ER.24H PO SCH (09:24)
[2021-10-19] MEDS: ATORVASTATIN 10 MG TAB PO SCH (09:24)
[2021-10-19] MEDS: RIVAROXABAN 15 MG TAB PO SCH (09:24)
[2021-10-19] MEDS: INSULIN ASPART (NovoLOG) 100 UNIT/ML VIAL SQ SCH ×4 (09:39→21:03)
[2021-10-19] MEDS: FUROSEMIDE 20 MG TAB PO SCH (09:39)
--- NOTE | 2021-10-19 09:47 | P.PN ---
Subjective Progress Note Date: 10/19/21 Principal diagnosis: Nonhealing wound, infected wound Patient is seen and examined as a follow-up. She is status post a left foot wound debridement with wound VAC in place. The patient is confused today, alert and oriented to self only. Nursing states that she was confused as well as yesterday. She's been afebrile. She denies any fevers chills chest pain or shortness of breath. Pain is well controlled. Objective - Vital Signs Vital signs: Vital Signs Temp 97.7 F 10/19/21 04:58 Pulse 60 10/19/21 04:58 Resp 18 10/19/21 04:58 BP 141/58 10/19/21 04:58 Pulse Ox 99 10/19/21 04:58 FiO2 Intake & Output 10/18/21 10/19/21 10/19/21 18:59 06:59 18:59 Intake Total 1660 160 Output Total 2200 1500 Balance -540 -1340 Weight 68.039 kg Intake: Intake, IV Titration 1660 Amount Cefepime 2 gm In Sodium 100 Chloride 0.9% 100 ml @ 25 mls/hr IVPB Q12HR [facility] Rx #:[id number] Sodium Chloride 0.9% 1, 1560 000 ml @ 130 mls/hr IV . Q7H42M [facility] Rx#:[id number] Oral 160 Output: Urine 2200 1500 Other: Voiding Method Indwelling Catheter Indwelling Catheter - Exam General appearance: The patient is alert, oriented, appears in no acute distres s. HET: Head is normocephalic and atraumatic. Neck: Supple without lymphadenopathy. Trachea midline. Heart: Regular rate. Lungs: Equal expansion. Abdomen: Soft, nontender, nondistended. Extremities: Left lower extremity TMA site with wound VAC in place with good suction. Right lower extremity foot with dressing clean dry and intact. Neurological: No focal deficits. - Labs CBC & Chem 7: 10/18/21 06:53 10/18/21 06:53 Labs: Abnormal Lab Results - Last 24 Hours (Table) 10/18/21 10/18/21 10/18/21 Range/Units 06:53 06:53 11:06 WBC 10.22 H (4.50-10.00) X 10*3/uL RBC 2.93 L (4.10-5.20) X 10*6/uL Hgb 8.8 L (12.0-15.0) g/dL Hct 26.7 L (37.2-46.3) % RDW 14.7 H (11.5-14.5) % Immature Gran # 0.16 H (0.00-0.04) X 10*3/uL Neutrophils # 8.04 H (1.80-7.70) X 10*3/uL ESR 81 H (0-30) mm/Hr Carbon Dioxide 19.5 L (20.0-27.5) mmol/L Est GFR (CKD-EPI)AfAm 37.7 L (60.0-200.0) Est GFR (CKD-EPI)NonAf 32.6 L (60.0-200.0) Glucose 142 H (70-110) mg/dL POC Glucose (mg/dL) 278 H (75-99) mg/dL Alkaline Phosphatase 166 H (41-126) U/L C-Reactive Protein 12.60 H (0.00-0.80) mg/dL Total Protein 5.9 L (6.2-8.2) g/dL Albumin 2.7 L (3.8-4.9) g/dL Albumin/Globulin Ratio 0.84 L (1.60-3.17) g/dL 10/18/21 10/18/21 10/19/21 Range/Units 17:03 19:30 07:01 WBC (4.50-10.00) X 10*3/uL RBC (4.10-5.20) X 10*6/uL Hgb (12.0-15.0) g/dL Hct (37.2-46.3) % RDW (11.5-14.5) % Immature Gran # (0.00-0.04) X 10*3/uL Neutrophils # (1.80-7.70) X 10*3/uL ESR (0-30) mm/Hr Carbon Dioxide (20.0-27.5) mmol/L Est GFR (CKD-EPI)AfAm (60.0-200.0) Est GFR (CKD-EPI)NonAf (60.0-200.0) Glucose (70-110) mg/dL POC Glucose (mg/dL) 172 H 196 H 164 H (75-99) mg/dL Alkaline Phosphatase (41-126) U/L C-Reactive Protein (0.00-0.80) mg/dL Total Protein (6.2-8.2) g/dL Albumin (3.8-4.9) g/dL Albumin/Globulin Ratio (1.60-3.17) g/dL Microbiology - Last 24 Hours (Table) 10/18/21 06:53 Blood Culture - Preliminary Blood No Growth after 24 hours 10/14/21 00:00 Blood Culture - Preliminary Blood No Growth after 120 hours Assessment and Plan Assessment: 1. Left foot wound status post debridement with wound VAC 2. Nonhealing left foot wound with infection 3. Diabetes mellitus Plan: 1. Continue wound VAC, change Sunday 2. Continue antibiotics per infectious disease 3. Physical therapy, nonweightbearing on left foot 4. The patient is cleared by vascular surgery for discharge. Follow-up wound care clinic. The impression and plan of care has been dictated as directed. I performed a history and examination of this patient, discussed the same with the dictator. I agree with the dictator's note ,documented as a scribe. Any ad ditional findings or plans will be noted.
[2021-10-19] MEDS: ACETAMINOPHEN TAB 325 MG TAB PO PRN ×2 (10:23→21:03)
[2021-10-19 11:07] LABS: Glucose,Whole Blood 150 mg/dL (75-99)
[2021-10-19 12:23] LABS: Basophils % (A) 0 %; Eosinophils # (A) 0.2 k/uL (0-0.7); Eosinophils % (A) 2 %; HCT 26.4 % (34.0-46.0); HGB 8.3 gm/dL (11.4-16.0); Lymphocytes % (A) 8 %; MCH 30.1 pg (25.0-35.0); MCHC 31.5 g/dL (31.0-37.0); MCV 95.4 fL (80.0-100.0); Mean Platelet Volume 7.8; Monocytes # (A) 0.6 k/uL (0-1.0); Monocytes % (A) 5 %; Neutrophils % (A) 84 %; Platelet Count 234 k/uL (150-450); RBC 2.76 m/uL (3.80-5.40); RDW 14.9 % (11.5-15.5)
[2021-10-19 12:32] LABS: INR 1.6 (<1.2); Prothrombin Time 16.1 sec (9.0-12.0)
[2021-10-19 12:38] LABS: African American GFR (CKD) 43 (>60 ml/min/1.73 sqM); Anion Gap 6 mmol/L; Blood Urea Nitrogen 19 mg/dL (7-17); Calcium 8.7 mg/dL (8.4-10.2); Carbon Dioxide 21 mmol/L (22-30); Chloride 104 mmol/L (98-107); Glucose 133 mg/dL (74-99); Magnesium 1.3 mg/dL (1.6-2.3); Non-African American GFR(CKD) 37 (>60 ml/min/1.73 sqM); Sodium 131 mmol/L (137-145)
[2021-10-19 13:05] LABS: Glucose,Whole Blood 139 mg/dL (75-99)
[2021-10-19] MEDS ORDERED: Magnesium Replacement Protocol 1 EACH MISC MISCELLANE PRN (14:22)
[2021-10-19] MEDS ORDERED: Potassium Replacement Protocol 1 EACH MISC MISCELLANE PRN (14:22)
[2021-10-19 17:23] LABS: Glucose,Whole Blood 349 mg/dL (75-99)
[2021-10-19] MEDS: MAGNESIUM SULFATE-D5W PMX 1 GM in DEXTROSE/WATER 1 100ML.BAG IVPB SCH ×3 (17:25→20:05)
[2021-10-19] MEDS: POTASSIUM CHLORIDE 10 MEQ in WATER FOR INJECTION 1 100ML.BAG IVPB SCH ×4 (19:07→22:01)
[2021-10-19 20:26] LABS: Glucose,Whole Blood 274 mg/dL (75-99)
--- NOTE | 2021-10-19 23:38 | P.PN ---
Subjective Progress Note Date: 10/19/21 Principal diagnosis: Left foot transmetatarsal wound dehiscence and cellulitis Patient is a 81-year-old female who was recently admitted at this facility and status post transmetatarsal Amputation of the left foot, subsequently admitted to the hospital with left foot wound dehiscence and secondary cellulitis. Patient was taken to the OR 527 to status post debridement of the wound and deep cultures. On today's evaluation that is 10/19/2021, the patient remains to be afebrile, the patient is breathing comfortably on room air, the patient denies any chest pain or cough no abdominal pain or pain to the left foot wound area Objective - Vital Signs Vital signs: Vital Signs Temp 97.8 F 10/19/21 12:02 Pulse 43 L 10/19/21 12:02 Resp 12 10/19/21 12:02 BP 130/53 10/19/21 12:02 Pulse Ox 99 10/19/21 12:02 FiO2 Intake & Output 10/18/21 10/19/21 10/19/21 18:59 06:59 18:59 Intake Total 1660 160 Output Total 2200 1500 400 Balance -540 -1340 -400 Weight 68.039 kg Intake: Intake, IV Titration 1660 Amount Cefepime 2 gm In Sodium 100 Chloride 0.9% 100 ml @ 25 mls/hr IVPB Q12HR [facility] Rx #:[id number] Sodium Chloride 0.9% 1, 1560 000 ml @ 130 mls/hr IV . Q7H42M [facility] Rx#:[id number] Oral 160 Output: Urine 2200 1500 400 Other: Voiding Method Indwelling Catheter Indwelling Catheter Indwelling Catheter - Exam GENERAL DESCRIPTION: An elderly female lying in bed in no distress RESPIRATORY SYSTEM: Unlabored breathing , decreased breath sounds at bases HEART: S1 S2 regular rate and rhythm , ABDOMEN: Soft , no tenderness EXTREMITIES: Left foot wound is currently covered with a wound VAC - Labs CBC & Chem 7: 10/19/21 11:57 10/19/21 11:57 Labs: Abnormal Lab Results - Last 24 Hours (Table) 10/18/21 10/18/21 10/18/21 Range/Units 06:53 17:03 19:30 WBC (3.8-10.6) k/uL RBC (3.80-5.40) m/uL Hgb (11.4-16.0) gm/dL Hct (34.0-46.0) % Neutrophils # (1.3-7.7) k/uL ESR 81 H (0-30) mm/Hr PT (9.0-12.0) sec INR (<1.2) Sodium (137-145) mmol/L Potassium (3.5-5.1) mmol/L Carbon Dioxide (22-30) mmol/L BUN (7-17) mg/dL Creatinine (0.52-1.04) mg/dL Glucose (74-99) mg/dL POC Glucose (mg/dL) 172 H 196 H (75-99) mg/dL Magnesium (1.6-2.3) mg/dL 10/19/21 10/19/21 10/19/21 Range/Units 07:01 11:05 11:57 WBC 12.0 H (3.8-10.6) k/uL RBC 2.76 L (3.80-5.40) m/uL Hgb 8.3 L (11.4-16.0) gm/dL Hct 26.4 L (34.0-46.0) % Neutrophils # 10.0 H (1.3-7.7) k/uL ESR (0-30) mm/Hr PT (9.0-12.0) sec INR (<1.2) Sodium (137-145) mmol/L Potassium (3.5-5.1) mmol/L Carbon Dioxide (22-30) mmol/L BUN (7-17) mg/dL Creatinine (0.52-1.04) mg/dL Glucose (74-99) mg/dL POC Glucose (mg/dL) 164 H 150 H (75-99) mg/dL Magnesium (1.6-2.3) mg/dL 10/19/21 10/19/21 Range/Units 11:57 11:57 WBC (3.8-10.6) k/uL RBC (3.80-5.40) m/uL Hgb (11.4-16.0) gm/dL Hct (34.0-46.0) % Neutrophils # (1.3-7.7) k/uL ESR (0-30) mm/Hr PT 16.1 H (9.0-12.0) sec INR 1.6 H (<1.2) Sodium 131 L (137-145) mmol/L Potassium 3.0 L (3.5-5.1) mmol/L Carbon Dioxide 21 L (22-30) mmol/L BUN 19 H (7-17) mg/dL Creatinine 1.35 H (0.52-1.04) mg/dL Glucose 133 H (74-99) mg/dL POC Glucose (mg/dL) (75-99) mg/dL Magnesium 1.3 L (1.6-2.3) mg/dL Microbiology - Last 24 Hours (Table) 10/18/21 06:53 Blood Culture - Preliminary Blood No Growth after 24 hours 10/14/21 00:00 Blood Culture - Preliminary Blood No Growth after 120 hours Assessment and Plan (1) Diabetic infection of left foot Current Visit: Yes Status: Acute Code(s): E11.628 - TYPE 2 DIABETES MELLITUS WITH OTHER SKIN COMPLICATIONS; L08.9 - LOCAL INFECTION OF THE SKIN AND SUBCUTANEOUS TISSUE, UNSP SNOMED Code(s): 92354006 Plan: 1patient with recent history of left foot/toes gangrene in this patient who is status post transmetatarsal amputation now presented to hospital with dehiscence of the wound and concern for secondary cellulitis with significant foul-smelling drainage in this patient status post debridement and cultures are currently pending. Cultures are now growing Pseudomonas MSSA, 2-blood cultures with MSSA, blood cultures are repeated document clearance of bacteremia 3patient to continue with cefepime and Flagyl, patient with need PICC line and outpatient IV antibiotics, PICC line can be placed tomorrow if the blood culture remains to be negative discussed with the nurse practitioner for admitting team 4local wound care with a wound VAC which will be changed Sunday. Time with Patient: Less than 30
[2021-10-20] MEDS: SODIUM CHLORIDE 0.9% 1,000 ML IV SCH ×2 (03:03→21:05)
[2021-10-20] MEDS: ACETAMINOPHEN TAB 325 MG TAB PO PRN ×2 (03:07→10:41)
--- NOTE | 2021-10-20 03:10 | P.PN ---
Subjective Progress Note Date: 10/19/21 Left foot transmetatarsal wound dehiscence and cellulitis Left lower extremity nonhealing wound, infection; status post Sharp excisional debridement Urinary retention 81-year-old female with a past medical history significant for diabetes mellitus patient did have a recent history of left fourth and fifth toe gangrene and this patient was status post left transmetatarsal amputation patient was subsequently discharged to the local assisted for rehabilitation, while at the assisted the patient did have dehiscence of the left foot transmetatarsal amputation site incision, patient was evaluated in the wound care center yesterday with the patient was noticed to be febrile he did have significant foul-smelling drainage with associated swelling and redness to the left foot wound patient be c omplaining of feeling weak and tired and no energy for the last few days patient was subsequently referred to the ER, the patient was evaluated by the ER physician on arrival to the ER the patient was afebrile did have elevated white count, patient did have x-ray of the foot which he did shows soft tissue a.ir suspicious for cellulitis or gangrene patient was evaluated by vascular surgery this morning and was taken to the OR and status post debridement of the wound patient had been started on vancomycin and Unasyn and infectious disease was consulted for further management, patient at time of evaluation denies having any fever or chills pain to the left foot is currently controlled no chest pain shortness of breath or cough no nausea no vomiting no abdominal pain no diarrhea Patient is seen and evaluated with multiple family members at bedside; concerns about episodes of confusion; vital signs remained stable - Detailed discussion about current condition and plans of care and likelihood of metabolic/toxic encephalopathy discussed with patient's family; we did agree with neuro consult if no improvement in mental status with treatment 10/16/2021 Patient is seen and evaluated in room at bedside; patient is more awake and alert this morning; daughters are present in the room and report improved mentation Labs are reviewed and reveal WBC of 7.7, hemoglobin 8.5, platelet count of 201, sodium 132, potassium 3.2, BUN/creatinine of 29/1.35 and blood glucose of 189 Patient remains on IV cefepime 2 g IV every 12 hours and metronidazole 500 mg by mouth 3 times a day per ID recommendations 10/18/2021 Patient is seen in follow-up this morning currently sitting up in the chair and continues with wound VAC to the left foot and maintained on IV antibiotics with infectious disease following. Patient was evaluated by vascular surgery today recommending outpatient follow-up and continue with wound care and wound VAC. Patient was admitted with left foot wound dehiscence and cellulitis with features of sepsis, present on admission. Awaiting finalized cultures and will need to discuss with infectious disease about discharge planning. Daughter is adamant about having the patient return home as she has her caregiver and will continue with PT/OT therapy for now and patient is to remain nonweightbearing of that left lower extremity with the wound VAC. PT/OT therapy recommending subacute rehab. Patient denies any chest pain or shortness of breath. Patient is afebrile. Patient denies nausea or vomiting and tolerating diet. Patient is extremely anxious and wanting to go home today. 10/19/2021 Patient is evaluated today and is somewhat confused per nursing staff. Patient is continued with wound vac and IV antibiotics. Repeat blood cultures are negative thus far and patient will need PICC line and IV abx on discharge. Case management following and plan is for home with home care as family is refusing to have the patient go to [facility]. Patient is currently afebrile. Patient denies shortness of breath. Patient continues to request to go home. Encouraged oral intake and PT to work with the patient daily. Recommend replacing electrolytes per protocol. Hold xarelto for PICC line tomorrow. Review of systems: Constitutional: No reports of fatigue, fever, or chills Cardiovascular: No reports of chest pain or palpitations Respiratory: No reports of shortness of breath or cough GI: No reports of nausea, vomiting, or diarrhea : No reports of dysuria or retention Neurovascular: No reports of weakness or numbness All medications have been reviewed Active Medications Acetaminophen (Acetaminophen Tab 325 Mg Tab) 650 mg PO Q6HR PRN PRN Reason: Mild Pain or Fever > 100.5 Last Admin: 10/19/21 21:03 Dose: 650 mg Amlodipine Besylate (Amlodipine 10 Mg Tab) 10 mg PO DAILY ON LICENSE OF [facility] Last Admin: 10/19/21 09:23 Dose: 10 mg Atorvastatin Calcium (Atorvastatin 10 Mg Tab) 10 mg PO DAILY ON LICENSE OF [facility] Last Admin: 10/19/21 09:24 Dose: 10 mg Clopidogrel Bisulfate (Clopidogrel 75 Mg Tab) 75 mg PO DAILY ON LICENSE OF [facility] Last Admin: 10/19/21 09:23 Dose: 75 mg Cyanocobalamin (Cyanocobalamin 500 Mcg Tab) 500 mcg PO DAILY ON LICENSE OF [facility] Last Admin: 10/19/21 09:23 Dose: 500 mcg Docusate Sodium (Docusate 100 Mg Cap) 100 mg PO DAILY ON LICENSE OF [facility] Last Admin: 10/19/21 09:23 Dose: 100 mg Ferrous Sulfate (Ferrous Sulfate 325 Mg Tab) 325 mg PO BID-W/MEALS ON LICENSE OF [facility] Last Admin: 10/19/21 17:33 Dose: 325 mg Folic Acid (Folic Acid 1 Mg Tab) 1 mg PO DAILY@1200 [facility] Furosemide (Furosemide 20 Mg Tab) 20 mg PO DAILY ON LICENSE OF [facility] Last Admin: 10/19/21 09:39 Dose: 20 mg Hydralazine HCl (Hydralazine Hcl 50 Mg Tab) 50 mg PO BID ON LICENSE OF [facility] Last Admin: 10/19/21 21:01 Dose: Not Given Sodium Chloride (Saline 0.9%) 1,000 mls @ 75 mls/hr IV .[id number] ON LICENSE OF [facility] Last Admin: 10/19/21 19:08 Dose: 130 mls/hr Cefepime HCl 2 gm/ Sodium (Chloride) 100 mls @ 25 mls/hr IVPB Q12HR ON LICENSE OF [facility]; Protocol Last Admin: 10/19/21 21:03 Dose: 25 mls/hr Insulin Aspart (Insulin Aspart (Novolog) 100 Unit/Ml Vial) 0 unit SQ ACHS ON LICENSE OF [facility]; Protocol Last Admin: 10/19/21 21:03 Dose: 4 unit Metronidazole (Metronidazole 500 Mg Tab) 500 mg PO TID ON LICENSE OF [facility]; Protocol Last Admin: 10/19/21 22:01 Dose: 500 mg Miscellaneous Information (Magnesium Replacement Protocol 1 Each Misc) 1 each MISCELLANE DAILY PRN; Protocol PRN Reason: Per Protocol Miscellaneous Information (Potassium Replacement Protocol 1 Each Misc) 1 each MISCELLANE DAILY PRN; Protocol PRN Reason: Per Protocol Multivitamins (Multivitamins, Thera 1 Each Tab) 1 each PO DAILY@1200 [facility] Naloxone HCl (Naloxone 0.4 Mg/Ml 1 Ml Vial) 0.2 mg IV Q2M PRN PRN Reason: Opioid Reversal Polyethylene Glycol (Polyethylene Glycol 3350 17 Gm Powd.Pack) 17 gm PO DAILY PRN PRN Reason: Constipation Rivaroxaban (Rivaroxaban 15 Mg Tab) 15 mg PO DAILY ON LICENSE OF [facility]; Protocol Last Admin: 10/19/21 09:24 Dose: Not Given Tamsulosin HCl (Tamsulosin 0.4 Mg Cap.Er.24h) 0.4 mg PO [id number] ON LICENSE OF [facility] Last Admin: 10/19/21 09:24 Dose: 0.4 mg Thiamine HCl (Thiamine 100 Mg Tab) 100 mg PO DAILY@1200 [facility] PHYSICAL EXAMINATION: GENERAL: The patient is alert and oriented x3. Well developed, well nourished. HEENT: Pupils are round and equally reacting to light. EOMI. No scleral icterus. No conjunctival pallor. Normocephalic, atraumatic. No pharyngeal erythema. No thyromegaly. CARDIOVASCULAR: S1 and S2 muffled PULMONARY: Diminished breath sounds bilaterally with some scattered rhonchi noted ABDOMEN: Soft, nontender, nondistended, normoactive bowel sounds. No palpable o rganomegaly. MUSCULOSKELETAL: No joint swelling or deformity. EXTREMITIES: No cyanosis, clubbing, or pedal edema. Left lower foot extremity with wound VAC NEUROLOGICAL: Gross neurological examination did not reveal any focal deficits. Diffuse weakness SKIN: No rashes. Assessment: Acute left foot transmetatarsal wound dehiscence and cellulitis Left lower extremity wound, status post incision and drainage altered mental status possibly secondary to metabolic encephalopathy and electrolyte abnormality hyponatremia Hypokalemia hypomagnesemia Leukocytosis with features of sepsis, present on admission most likely secondary to infected diabetic left foot wound with surrounding cellulitis Chronic congestive heart failure with preserved EF, most recent EF was 50-55% in June 2021 Permanent atrial fibrillation Urinary retention Hypertension Hyperlipidemia Diabetes mellitus type 2 GI prophylaxis DVT prophylaxis, on xarelto and will hold for PICC line placement No code Plan: Patient is currently maintained on IV antibiotics with multiple medical consultations including vascular surgery infectious disease, and urology following. Patient having some urinary retention requiring indwelling Don catheter and has been evaluated by urology recommending trial voiding prior to discharge and patient was started on Flomax and will continue. Patient also continues on oral Flagyl along with IV cefepime while awaiting for cultures to finalize. Per ID patient will need a PICC line for outpatient abx therapy. Patient with weakness and is to be nonweightbearing of that left lower extremity with the wound VAC and is being evaluated by PT/OT therapy recommending ECF for continued rehab to build up strength and mobility and discussed further with case management and plan is to return home with home care. Awaiting cultures at this time and will continue with local wound care and wound VAC. Recommend replacing electrolytes and repeat am labs. Hold xarelto in am for 6/2 PICC line. Due to multiple complex medical issues, prognosis is guarded. The impression and plan of care has been dictated by Mildred Swift, Nurse Practitioner as directed. Dr. Jakob MD I have performed a history and examination and MDM of this patient, discussed the same with the dictator, and agree with the dictator's assessment and plan as written ,documented as a scribe. Based on total visit time, I have performed more than 50% of the visit. Objective - Vital Signs Vital signs: Vital Signs Temp 97.7 F 10/19/21 04:58 Pulse 60 10/19/21 04:58 Resp 18 10/19/21 04:58 BP 141/58 10/19/21 04:58 Pulse Ox 99 10/19/21 04:58 FiO2 Intake & Output 10/18/21 10/19/21 10/19/21 18:59 06:59 18:59 Intake Total 1660 160 Output Total 2200 1500 400 Balance -540 -1340 -400 Weight 68.039 kg Intake: Intake, IV Titration 1660 Amount Cefepime 2 gm In Sodium 100 Chloride 0.9% 100 ml @ 25 mls/hr IVPB Q12HR [facility] Rx #:[id number] Sodium Chloride 0.9% 1, 1560 000 ml @ 130 mls/hr IV . Q7H42M [facility] Rx#:[id number] Oral 160 Output: Urine 2200 1500 400 Other: Voiding Method Indwelling Catheter Indwelling Catheter - Labs CBC & Chem 7: 10/19/21 11:57 10/19/21 11:57 Labs: Abnormal Lab Results - Last 24 Hours (Table) 10/18/21 10/18/21 10/18/21 Range/Units 06:53 06:53 11:06 WBC 10.22 H (4.50-10.00) X 10*3/uL RBC 2.93 L (4.10-5.20) X 10*6/uL Hgb 8.8 L (12.0-15.0) g/dL Hct 26.7 L (37.2-46.3) % RDW 14.7 H (11.5-14.5) % Immature Gran # 0.16 H (0.00-0.04) X 10*3/uL Neutrophils # 8.04 H (1.80-7.70) X 10*3/uL ESR 81 H (0-30) mm/Hr Carbon Dioxide 19.5 L (20.0-27.5) mmol/L Est GFR (CKD-EPI)AfAm 37.7 L (60.0-200.0) Est GFR (CKD-EPI)NonAf 32.6 L (60.0-200.0) Glucose 142 H (70-110) mg/dL POC Glucose (mg/dL) 278 H (75-99) mg/dL Alkaline Phosphatase 166 H (41-126) U/L C-Reactive Protein 12.60 H (0.00-0.80) mg/dL Total Protein 5.9 L (6.2-8.2) g/dL Albumin 2.7 L (3.8-4.9) g/dL Albumin/Globulin Ratio 0.84 L (1.60-3.17) g/dL 10/18/21 10/18/21 10/19/21 Range/Units 17:03 19:30 07:01 WBC (4.50-10.00) X 10*3/uL RBC (4.10-5.20) X 10*6/uL Hgb (12.0-15.0) g/dL Hct (37.2-46.3) % RDW (11.5-14.5) % Immature Gran # (0.00-0.04) X 10*3/uL Neutrophils # (1.80-7.70) X 10*3/uL ESR (0-30) mm/Hr Carbon Dioxide (20.0-27.5) mmol/L Est GFR (CKD-EPI)AfAm (60.0-200.0) Est GFR (CKD-EPI)NonAf (60.0-200.0) Glucose (70-110) mg/dL POC Glucose (mg/dL) 172 H 196 H 164 H (75-99) mg/dL Alkaline Phosphatase (41-126) U/L C-Reactive Protein (0.00-0.80) mg/dL Total Protein (6.2-8.2) g/dL Albumin (3.8-4.9) g/dL Albumin/Globulin Ratio (1.60-3.17) g/dL Microbiology - Last 24 Hours (Table) 10/18/21 06:53 Blood Culture - Preliminary Blood No Growth after 24 hours 10/14/21 00:00 Blood Culture - Preliminary Blood No Growth after 120 hours
[2021-10-20] MEDS: CLOPIDOGREL 75 MG TAB PO SCH (06:51)
[2021-10-20 07:18] LABS: Glucose,Whole Blood 189 mg/dL (75-99)
[2021-10-20 08:06] LABS: African American GFR (CKD) 38 (>60 ml/min/1.73 sqM); Anion Gap 9 mmol/L; Blood Urea Nitrogen 20 mg/dL (7-17); Calcium 8.7 mg/dL (8.4-10.2); Carbon Dioxide 20 mmol/L (22-30); Chloride 105 mmol/L (98-107); Glucose 169 mg/dL (74-99); Magnesium 2.1 mg/dL (1.6-2.3); Non-African American GFR(CKD) 33 (>60 ml/min/1.73 sqM); Potassium 3.8 mmol/L (3.5-5.1); Sodium 134 mmol/L (137-145)
[2021-10-20] MEDS: TAMSULOSIN 0.4 MG CAP.ER.24H PO SCH (08:38)
[2021-10-20] MEDS: amLODIPine 10 MG TAB PO SCH ×2 (08:38→10:41)
[2021-10-20] MEDS: metroNIDAZOLE 500 MG TAB PO SCH ×3 (08:38→21:04)
[2021-10-20] MEDS: ATORVASTATIN 10 MG TAB PO SCH (08:38)
[2021-10-20] MEDS: CYANOCOBALAMIN 500 MCG TAB PO SCH (08:38)
[2021-10-20] MEDS: hydrALAZINE HCL 50 MG TAB PO SCH ×3 (08:38→21:04)
[2021-10-20] MEDS: DOCUSATE 100 MG CAP PO SCH (08:38)
[2021-10-20] MEDS: FUROSEMIDE 20 MG TAB PO SCH (08:39)
[2021-10-20] MEDS: FERROUS SULFATE 325 MG TAB PO SCH ×2 (08:39→17:31)
[2021-10-20] MEDS: CEFEPIME 2 GM in SODIUM CHLORIDE 0.9% 100 ML IVPB SCH ×2 (08:39→21:04)
[2021-10-20] MEDS: INSULIN ASPART (NovoLOG) 100 UNIT/ML VIAL SQ SCH ×4 (08:39→21:03)
[2021-10-20] MEDS: RIVAROXABAN 15 MG TAB PO SCH (08:40)
[2021-10-20 11:02] LABS: Glucose,Whole Blood 199 mg/dL (75-99)
[2021-10-20] MEDS: FOLIC ACID 1 MG TAB PO SCH (12:31)
[2021-10-20] MEDS: MULTIVITAMINS, THERA 1 EACH TAB PO SCH (12:31)
[2021-10-20] MEDS: THIAMINE 100 MG TAB PO SCH (12:31)
--- NOTE | 2021-10-20 12:39 | P.PN ---
Subjective Progress Note Date: 10/20/21 Principal diagnosis: Nonhealing wound, infected wound Patient seen and examined this a follow-up. She still remains pleasantly confused. PT and OT working with the patient. Plan is for possible PICC line placement today and discharged home with home care. She remains afebrile. On IV antibiotics. Objective - Vital Signs Vital signs: Vital Signs Temp 97.5 F L 10/20/21 04:39 Pulse 53 L 10/20/21 04:39 Resp 19 10/20/21 04:39 BP 126/48 10/20/21 04:39 Pulse Ox 100 10/20/21 04:39 FiO2 Intake & Output 10/19/21 10/20/21 10/20/21 18:59 06:59 18:59 Intake Total 1640 Output Total 5492 793 4065 Balance -1050 1090 -1400 Intake: Intake, IV Titration 1400 Amount Cefepime 2 gm In Sodium 100 Chloride 0.9% 100 ml @ 25 mls/hr IVPB Q12HR [facility] Rx #:[id number] Magnesium Sulfate-D5w Pmx 200 1 gm In Dextrose/Water 1 100ml.bag @ 100 mls/hr IVPB Q1H [facility] Rx#: [id number] Potassium Chloride 10 meq 400 In Water For Injection 1 100ml.bag @ 100 mls/hr IVPB Q1HR [facility] Rx#: [id number] Sodium Chloride 0.9% 1, 700 000 ml @ 75 mls/hr IV . [id number] [facility] Rx#:[id number] Oral 240 Output: Urine 0543 [id number] [id number] Other: Voiding Method Indwelling Catheter Indwelling Catheter Indwelling Catheter # Bowel Movements 1 - Exam General appearance: The patient is alert, oriented, appears in no acute distress. HET: Head is normocephalic and atraumatic. Neck: Supple without lymphadenopathy. Trachea midline. Heart: Regular rate. Lungs: Equal expansion. Abdomen: Soft, nontender, nondistended. Extremities: Left lower extremity TMA site with wound VAC in place with good suction. Right lower extremity foot with dressing clean dry and intact. Neurological: No focal deficits. - Labs CBC & Chem 7: 10/19/21 11:57 10/20/21 05:59 Labs: Abnormal Lab Results - Last 24 Hours (Table) 10/19/21 10/19/21 10/19/21 Range/Units 11:05 11:57 11:57 WBC 12.0 H (3.8-10.6) k/uL RBC 2.76 L (3.80-5.40) m/uL Hgb 8.3 L (11.4-16.0) gm/dL Hct 26.4 L (34.0-46.0) % Neutrophils # 10.0 H (1.3-7.7) k/uL PT 16.1 H (9.0-12.0) sec INR 1.6 H (<1.2) Sodium (137-145) mmol/L Potassium (3.5-5.1) mmol/L Carbon Dioxide (22-30) mmol/L BUN (7-17) mg/dL Creatinine (0.52-1.04) mg/dL Glucose (74-99) mg/dL POC Glucose (mg/dL) 150 H (75-99) mg/dL Magnesium (1.6-2.3) mg/dL 10/19/21 10/19/21 10/19/21 Range/Units 11:57 13:03 17:20 WBC (3.8-10.6) k/uL RBC (3.80-5.40) m/uL Hgb (11.4-16.0) gm/dL Hct (34.0-46.0) % Neutrophils # (1.3-7.7) k/uL PT (9.0-12.0) sec INR (<1.2) Sodium 131 L (137-145) mmol/L Potassium 3.0 L (3.5-5.1) mmol/L Carbon Dioxide 21 L (22-30) mmol/L BUN 19 H (7-17) mg/dL Creatinine 1.35 H (0.52-1.04) mg/dL Glucose 133 H (74-99) mg/dL POC Glucose (mg/dL) 139 H 349 H (75-99) mg/dL Magnesium 1.3 L (1.6-2.3) mg/dL 10/19/21 10/20/21 10/20/21 Range/Units 20:22 05:59 07:17 WBC (3.8-10.6) k/uL RBC (3.80-5.40) m/uL Hgb (11.4-16.0) gm/dL Hct (34.0-46.0) % Neutrophils # (1.3-7.7) k/uL PT (9.0-12.0) sec INR (<1.2) Sodium 134 L (137-145) mmol/L Potassium (3.5-5.1) mmol/L Carbon Dioxide 20 L (22-30) mmol/L BUN 20 H (7-17) mg/dL Creatinine 1.48 H (0.52-1.04) mg/dL Glucose 169 H (74-99) mg/dL POC Glucose (mg/dL) 274 H 189 H (75-99) mg/dL Magnesium (1.6-2.3) mg/dL 10/20/21 Range/Units 10:59 WBC (3.8-10.6) k/uL RBC (3.80-5.40) m/uL Hgb (11.4-16.0) gm/dL Hct (34.0-46.0) % Neutrophils # (1.3-7.7) k/uL PT (9.0-12.0) sec INR (<1.2) Sodium (137-145) mmol/L Potassium (3.5-5.1) mmol/L Carbon Dioxide (22-30) mmol/L BUN (7-17) mg/dL Creatinine (0.52-1.04) mg/dL Glucose (74-99) mg/dL POC Glucose (mg/dL) 199 H (75-99) mg/dL Magnesium (1.6-2.3) mg/dL Microbiology - Last 24 Hours (Table) 10/18/21 06:53 Blood Culture - Preliminary Blood No Growth after 48 hours 10/14/21 00:00 Blood Culture - Final Blood No Growth after 144 hours Assessment and Plan Assessment: 1. Left foot wound status post debridement with wound VAC 2. Nonhealing left foot wound with infection 3. Diabetes mellitus Plan: 1. Continue wound VAC, change Sunday 2. Continue antibiotics per infectious disease 3. Physical therapy, nonweightbearing on left foot 4. The patient is cleared by vascular surgery for discharge. Follow-up wound care clinic. The impression and plan of care has been dictated as directed. I performed a history and examination of this patient, discussed the same with the dictator. I agree with the dictator's note ,documented as a scribe. Any additional findings or plans will be noted.
[2021-10-20 12:50] LABS: INR 1.3 (<1.2); Prothrombin Time 13.7 sec (9.0-12.0)
[2021-10-20] MEDS ORDERED: ALPRAZolam 0.25 MG TAB PO PRN (16:11)
[2021-10-20 17:05] LABS: Glucose,Whole Blood 264 mg/dL (75-99)
[2021-10-20 20:07] LABS: Glucose,Whole Blood 256 mg/dL (75-99)
--- NOTE | 2021-10-21 02:06 | P.PN ---
Subjective Progress Note Date: 10/20/21 Left foot transmetatarsal wound dehiscence and cellulitis Left lower extremity nonhealing wound, infection; status post Sharp excisional debridement Urinary retention 81-year-old female with a past medical history significant for diabetes mellitus patient did have a recent history of left fourth and fifth toe gangrene and this patient was status post left transmetatarsal amputation patient was [facility], while at the [facility] the patient did have dehiscence of the left foot transmetatarsal amputation site incision, patient was evaluated in the wound care center yesterday with the patient was noticed to be febrile he did have significant foul-smelling drainage with associated swelling and redness to the left foot wound patient be c omplaining of feeling weak and tired and no energy for the last few days patient was subsequently referred to the ER, the patient was evaluated by the ER physician on arrival to the ER the patient was afebrile did have elevated white count, patient did have x-ray of the foot which he did shows soft tissue a.ir suspicious for cellulitis or gangrene patient was evaluated by vascular surgery this morning and was taken to the OR and status post debridement of the wound patient had been started on vancomycin and Unasyn and infectious disease was consulted for further management, patient at time of evaluation denies having any fever or chills pain to the left foot is currently controlled no chest pain shortness of breath or cough no nausea no vomiting no abdominal pain no diarrhea Patient is seen and evaluated with multiple family members at bedside; concerns about episodes of confusion; vital signs remained stable - Detailed discussion about current condition and plans of care and likelihood of metabolic/toxic encephalopathy discussed with patient's family; we did agree with neuro consult if no improvement in mental status with treatment 10/16/2021 Patient is seen and evaluated in room at bedside; patient is more awake and alert this morning; daughters are present in the room and report improved mentation Labs are reviewed and reveal WBC of 7.7, hemoglobin 8.5, platelet count of 201, sodium 132, potassium 3.2, BUN/creatinine of 29/1.35 and blood glucose of 189 Patient remains on IV cefepime 2 g IV every 12 hours and metronidazole 500 mg by mouth 3 times a day per ID recommendations 10/18/2021 Patient is seen in follow-up this morning currently sitting up in the chair and continues with wound VAC to the left foot and maintained on IV antibiotics with infectious disease following. Patient was evaluated by vascular surgery today recommending outpatient follow-up and continue with wound care and wound VAC. Patient was admitted with left foot wound dehiscence and cellulitis with features of sepsis, present on admission. Awaiting finalized cultures and will need to discuss with infectious disease about discharge planning. Daughter is adamant about having the patient return home as she has her caregiver and will continue with PT/OT therapy for now and patient is to remain nonweightbearing of that left lower extremity with the wound VAC. PT/OT therapy recommending subacute rehab. Patient denies any chest pain or shortness of breath. Patient is afebrile. Patient denies nausea or vomiting and tolerating diet. Patient is extremely anxious and wanting to go home today. 10/19/2021 Patient is evaluated today and is somewhat confused per nursing staff. Patient is continued with wound vac and IV antibiotics. Repeat blood cultures are negative thus far and patient will need PICC line and IV abx on discharge. Case management following and plan is for home with home care as family is refusing to have the patient go to [facility]. Patient is currently afebrile. Patient denies shortness of breath. Patient continues to request to go home. Encouraged oral intake and PT to work with the patient daily. Recommend replacing electrolytes per protocol. Hold xarelto for PICC line tomorrow. 10/20/2021 Patient is seen today and is sitting up in the chair with daughter Kirsty at the bedside. Patient electrolytes replaced per protocol improved. Patient with mildly elevated creatinine requiring nephrology clearance for PICC line placement and recommend to continue to hold xarelto with possible PICC line in am. Will repeat am labs. Patient is to continue with non-weightbearing of the left lower extremity. Wound vac of the left foot. Patient maintained on IV abx with ID following. Patient is afebrile and denies chest pain or shortness of breath. Review of systems: Constitutional: No reports of fatigue, fever, or chills Cardiovascular: No reports of chest pain or palpitations Respiratory: No reports of shortness of breath or cough GI: No reports of nausea, vomiting, or diarrhea : No reports of dysuria or retention Neurovascular: reports of generalized weakness All medications have been reviewed Active Medications Acetaminophen (Acetaminophen Tab 325 Mg Tab) 650 mg PO Q6HR PRN PRN Reason: Mild Pain or Fever > 100.5 Last Admin: 10/20/21 10:41 Dose: 650 mg Alprazolam (Alprazolam 0.25 Mg Tab) 0.25 mg PO BID PRN PRN Reason: Anxiety Last Admin: 10/20/21 17:31 Dose: 0.25 mg Amlodipine Besylate (Amlodipine 10 Mg Tab) 10 mg PO DAILY [facility] Last Admin: 10/20/21 10:41 Dose: 10 mg Atorvastatin Calcium (Atorvastatin 10 Mg Tab) 10 mg PO DAILY [facility] Last Admin: 10/20/21 08:38 Dose: 10 mg Clopidogrel Bisulfate (Clopidogrel 75 Mg Tab) 75 mg PO DAILY [facility] Last Admin: 10/20/21 06:51 Dose: Not Given Cyanocobalamin (Cyanocobalamin 500 Mcg Tab) 500 mcg PO DAILY [facility] Last Admin: 10/20/21 08:38 Dose: 500 mcg Docusate Sodium (Docusate 100 Mg Cap) 100 mg PO DAILY [facility] Last Admin: 10/20/21 08:38 Dose: 100 mg Ferrous Sulfate (Ferrous Sulfate 325 Mg Tab) 325 mg PO BID-W/MEALS [facility] Last Admin: 10/20/21 17:31 Dose: 325 mg Folic Acid (Folic Acid 1 Mg Tab) 1 mg PO DAILY@1200 [facility] Last Admin: 10/20/21 12:31 Dose: 1 mg Furosemide (Furosemide 20 Mg Tab) 20 mg PO DAILY [facility] Last Admin: 10/20/21 08:39 Dose: 20 mg Hydralazine HCl (Hydralazine Hcl 50 Mg Tab) 50 mg PO BID [facility] Last Admin: 10/20/21 21:04 Dose: 50 mg Sodium Chloride (Saline 0.9%) 1,000 mls @ 75 mls/hr IV .[id number] [facility] Last Admin: 10/20/21 21:05 Dose: 75 mls/hr Cefepime HCl 2 gm/ Sodium (Chloride) 100 mls @ 25 mls/hr IVPB Q12HR [facility]; Protocol Last Admin: 10/20/21 21:04 Dose: 25 mls/hr Insulin Aspart (Insulin Aspart (Novolog) 100 Unit/Ml Vial) 0 unit SQ ACHS [facility]; Protocol Last Admin: 10/20/21 21:03 Dose: 4 unit Metronidazole (Metronidazole 500 Mg Tab) 500 mg PO TID [facility]; Protocol Last Admin: 10/20/21 21:04 Dose: 500 mg Miscellaneous Information (Magnesium Replacement Protocol 1 Each Misc) 1 each MISCELLANE DAILY PRN; Protocol PRN Reason: Per Protocol Miscellaneous Information (Potassium Replacement Protocol 1 Each Misc) 1 each MISCELLANE DAILY PRN; Protocol PRN Reason: Per Protocol Multivitamins (Multivitamins, Thera 1 Each Tab) 1 each PO DAILY@1200 [facility] Last Admin: 10/20/21 12:31 Dose: 1 each Naloxone HCl (Naloxone 0.4 Mg/Ml 1 Ml Vial) 0.2 mg IV Q2M PRN PRN Reason: Opioid Reversal Polyethylene Glycol (Polyethylene Glycol 3350 17 Gm Powd.Pack) 17 gm PO DAILY PRN PRN Reason: Constipation Rivaroxaban (Rivaroxaban 15 Mg Tab) 15 mg PO DAILY [facility]; Protocol Last Admin: 10/20/21 08:40 Dose: Not Given Tamsulosin HCl (Tamsulosin 0.4 Mg Cap.Er.24h) 0.4 mg PO -BRKFST [facility] Last Admin: 10/20/21 08:38 Dose: 0.4 mg Thiamine HCl (Thiamine 100 Mg Tab) 100 mg PO DAILY@1200 [facility] Last Admin: 10/20/21 12:31 Dose: 100 mg PHYSICAL EXAMINATION: GENERAL: The patient is alert and oriented x2-3. Well developed, well nourished. HEENT: Pupils are round and equally reacting to light. EOMI. No scleral icterus. No conjunctival pallor. Normocephalic, atraumatic. No pharyngeal erythema. No thyromegaly. CARDIOVASCULAR: S1 and S2 muffled PULMONARY: Diminished breath sounds bilaterally with some scattered rhonchi noted ABDOMEN: Soft, nontender, nondistended, normoactive bowel sounds. No palpable organomegaly. MUSCULOSKELETAL: No joint swelling or deformity. EXTREMITIES: No cyanosis, clubbing, or pedal edema. Left lower foot extremity with wound VAC NEUROLOGICAL: Gross neurological examination did not reveal any focal deficits. Diffuse weakness SKIN: No rashes. Assessment: Acute left foot transmetatarsal wound dehiscence and cellulitis Left lower extremity wound, status post incision and drainage altered mental status possibly secondary to metabolic encephalopathy and electrolyte abnormality hyponatremia, improved Hypokalemia, improved hypomagnesemia, improved Leukocytosis with features of sepsis, present on admission most likely secondary to infected diabetic left foot wound with surrounding cellulitis Chronic congestive heart failure with preserved EF, most recent EF was 50-55% in June 2021 Permanent atrial fibrillation Urinary retention Hypertension Hyperlipidemia Diabetes mellitus type 2 GI prophylaxis DVT prophylaxis, on xarelto and will hold for PICC line placement No code Plan: Patient is currently maintained on IV antibiotics with multiple medical consultations including vascular surgery infectious disease, and urology following. Patient having some urinary retention requiring indwelling Austin catheter and has been evaluated by urology. Will continue indwelling austin catheter at this time. Patient also continues on oral Flagyl along with IV cefepime while awaiting for cultures to finalize. Per ID patient will need a PICC line for outpatient abx therapy. Nephrology consult for clearance given low GFR for PICC placement. Patient with weakness and is to be nonweightbearing of that left lower extremity with the wound VAC and is being evaluated by PT/OT therapy recommending ECF for continued rehab to build up strength and mobility and discussed further with case management and plan is for possible [facility] per daughter Kirsty who is the decision maker. Awaiting cultures at this time and will continue with local wound care and wound VAC. Recommend replacing electrolytes per protocol and repeat am labs. Hold xarelto in am for 6/3 PICC line once has nephrology clearance. Due to multiple complex medical issues, prognosis is guarded. The impression and plan of care has been dictated by Mildred Swift, Nurse Practitioner as directed. Dr. Jakob MD I have performed a history and examination and MDM of this patient, discussed the same with the dictator, and agree with the dictator's assessment and plan as written ,documented as a scribe. Based on total visit time, I have performed more than 50% of the visit. Objective - Vital Signs Vital signs: Vital Signs Temp 97.5 F L 10/20/21 04:39 Pulse 53 L 10/20/21 04:39 Resp 19 10/20/21 04:39 BP 126/48 10/20/21 04:39 Pulse Ox 100 10/20/21 04:39 FiO2 Intake & Output 10/19/21 10/20/21 10/20/21 18:59 06:59 18:59 Intake Total 1640 Output Total 5430 522 6584 Balance -1050 1090 -1400 Intake: Intake, IV Titration 1400 Amount Cefepime 2 gm In Sodium 100 Chloride 0.9% 100 ml @ 25 mls/hr IVPB Q12HR [facility] Rx #:[id number] Magnesium Sulfate-D5w Pmx 200 1 gm In Dextrose/Water 1 100ml.bag @ 100 mls/hr IVPB Q1H [facility] Rx#: [id number] Potassium Chloride 10 meq 400 In Water For Injection 1 100ml.bag @ 100 mls/hr IVPB Q1HR [facility] Rx#: [id number] Sodium Chloride 0.9% 1, 700 000 ml @ 75 mls/hr IV . [id number] [facility] Rx#:[id number] Oral 240 Output: Urine [id number] Other: Voiding Method Indwelling Catheter Indwelling Catheter Indwelling Catheter # Bowel Movements 1 - Labs CBC & Chem 7: 10/19/21 11:57 10/20/21 05:59 Labs: Abnormal Lab Results - Last 24 Hours (Table) 10/19/21 10/19/21 10/19/21 Range/Units 11:05 11:57 11:57 WBC 12.0 H (3.8-10.6) k/uL RBC 2.76 L (3.80-5.40) m/uL Hgb 8.3 L (11.4-16.0) gm/dL Hct 26.4 L (34.0-46.0) % Neutrophils # 10.0 H (1.3-7.7) k/uL PT 16.1 H (9.0-12.0) sec INR 1.6 H (<1.2) Sodium (137-145) mmol/L Potassium (3.5-5.1) mmol/L Carbon Dioxide (22-30) mmol/L BUN (7-17) mg/dL Creatinine (0.52-1.04) mg/dL Glucose (74-99) mg/dL POC Glucose (mg/dL) 150 H (75-99) mg/dL Magnesium (1.6-2.3) mg/dL 10/19/21 10/19/21 10/19/21 Range/Units 11:57 13:03 17:20 WBC (3.8-10.6) k/uL RBC (3.80-5.40) m/uL Hgb (11.4-16.0) gm/dL Hct (34.0-46.0) % Neutrophils # (1.3-7.7) k/uL PT (9.0-12.0) sec INR (<1.2) Sodium 131 L (137-145) mmol/L Potassium 3.0 L (3.5-5.1) mmol/L Carbon Dioxide 21 L (22-30) mmol/L BUN 19 H (7-17) mg/dL Creatinine 1.35 H (0.52-1.04) mg/dL Glucose 133 H (74-99) mg/dL POC Glucose (mg/dL) 139 H 349 H (75-99) mg/dL Magnesium 1.3 L (1.6-2.3) mg/dL 10/19/21 10/20/21 10/20/21 Range/Units 20:22 05:59 07:17 WBC (3.8-10.6) k/uL RBC (3.80-5.40) m/uL Hgb (11.4-16.0) gm/dL Hct (34.0-46.0) % Neutrophils # (1.3-7.7) k/uL PT (9.0-12.0) sec INR (<1.2) Sodium 134 L (137-145) mmol/L Potassium (3.5-5.1) mmol/L Carbon Dioxide 20 L (22-30) mmol/L BUN 20 H (7-17) mg/dL Creatinine 1.48 H (0.52-1.04) mg/dL Glucose 169 H (74-99) mg/dL POC Glucose (mg/dL) 274 H 189 H (75-99) mg/dL Magnesium (1.6-2.3) mg/dL Microbiology - Last 24 Hours (Table) 10/18/21 06:53 Blood Culture - Preliminary Blood No Growth after 48 hours 10/14/21 00:00 Blood Culture - Final Blood No Growth after 144 hours
[2021-10-21] MEDS: ACETAMINOPHEN TAB 325 MG TAB PO PRN ×2 (04:11→19:38)
[2021-10-21] MEDS: SODIUM CHLORIDE 0.9% 1,000 ML IV SCH ×2 (04:30→17:56)
[2021-10-21 07:07] LABS: Glucose,Whole Blood 156 mg/dL (75-99)
--- NOTE | 2021-10-21 07:42 | P.PN ---
Subjective Progress Note Date: 10/20/21 Principal diagnosis: Left foot transmetatarsal wound dehiscence and cellulitis Patient is a 81-year-old female who was recently admitted at this facility and status post transmetatarsal Amputation of the left foot, subsequently admitted to the hospital with left foot wound dehiscence and secondary cellulitis. Patient was taken to the OR 527 to status post debridement of the wound and deep cultures. On today's evaluation that is 10/20/2021, the patient continues to be afebrile, the patient is breathing comfortably on room air, the patient denies chest pain or cough no abdominal pain and pain to the left foot wound area is currently controlled Objective - Vital Signs Vital signs: Vital Signs Temp 97.6 F 10/20/21 11:53 Pulse 52 L 10/20/21 11:53 Resp 13 10/20/21 11:53 BP 157/55 10/20/21 11:53 Pulse Ox 100 10/20/21 11:53 FiO2 Intake & Output 10/19/21 10/20/21 10/20/21 18:59 06:59 18:59 Intake Total 1640 Output Total 9088 243 7792 Balance -1050 1090 -1400 Intake: Intake, IV Titration 1400 Amount Cefepime 2 gm In Sodium 100 Chloride 0.9% 100 ml @ 25 mls/hr IVPB Q12HR [facility] Rx #:[id number] Magnesium Sulfate-D5w Pmx 200 1 gm In Dextrose/Water 1 100ml.bag @ 100 mls/hr IVPB Q1H [facility] Rx#: [id number] Potassium Chloride 10 meq 400 In Water For Injection 1 100ml.bag @ 100 mls/hr IVPB Q1HR [facility] Rx#: [id number] Sodium Chloride 0.9% 1, 700 000 ml @ 75 mls/hr IV . [id number] [facility] Rx#:[id number] Oral 240 Output: Urine 2999 [id number] [id number] Other: Voiding Method Indwelling Catheter Indwelling Catheter Indwelling Catheter # Bowel Movements 1 - Exam GENERAL DESCRIPTION: An elderly female lying in bed in no distress RESPIRATORY SYSTEM: Unlabored breathing , decreased breath sounds at bases HEART: S1 S2 regular rate and rhythm , ABDOMEN: Soft , no tenderness EXTREMITIES: Left foot wound is currently covered with a wound VAC - Labs CBC & Chem 7: 10/19/21 11:57 10/20/21 05:59 Labs: Abnormal Lab Results - Last 24 Hours (Table) 10/19/21 10/19/21 10/20/21 Range/Units 17:20 20:22 05:59 PT (9.0-12.0) sec INR (<1.2) Sodium 134 L (137-145) mmol/L Carbon Dioxide 20 L (22-30) mmol/L BUN 20 H (7-17) mg/dL Creatinine 1.48 H (0.52-1.04) mg/dL Glucose 169 H (74-99) mg/dL POC Glucose (mg/dL) 349 H 274 H (75-99) mg/dL 10/20/21 10/20/21 10/20/21 Range/Units 07:17 10:59 12:16 PT 13.7 H (9.0-12.0) sec INR 1.3 H (<1.2) Sodium (137-145) mmol/L Carbon Dioxide (22-30) mmol/L BUN (7-17) mg/dL Creatinine (0.52-1.04) mg/dL Glucose (74-99) mg/dL POC Glucose (mg/dL) 189 H 199 H (75-99) mg/dL Microbiology - Last 24 Hours (Table) 10/18/21 06:53 Blood Culture - Preliminary Blood No Growth after 48 hours 10/14/21 00:00 Blood Culture - Final Blood No Growth after 144 hours Assessment and Plan (1) Diabetic infection of left foot Current Visit: Yes Status: Acute Code(s): E11.628 - TYPE 2 DIABETES MELLITUS WITH OTHER SKIN COMPLICATIONS; L08.9 - LOCAL INFECTION OF THE SKIN AND SUBCUTANEOUS TISSUE, UNSP SNOMED Code(s): 49347665 Plan: 1patient with recent history of left foot/toes gangrene in this patient who is status post transmetatarsal amputation now presented to hospital with dehiscence of the wound and concern for secondary cellulitis with significant foul-smelling drainage in this patient status post debridement and cultures are currently pending. Cultures are now growing Pseudomonas MSSA, 2-blood cultures with MSSA, blood cultures the patient has been negative 3patient to continue with cefepime and Flagyl, patient will get a PICC line today as a blood cultures are negative and plan is to continue with cefepime and Flagyl for another 5 weeks on discharge 4local wound care with a wound VAC which will be changed Sunday. Time with Patient: Less than 30
[2021-10-21 07:47] LABS: INR 1.4 (<1.2); Prothrombin Time 14.1 sec (9.0-12.0)
[2021-10-21] MEDS: TAMSULOSIN 0.4 MG CAP.ER.24H PO SCH (07:53)
[2021-10-21] MEDS: CYANOCOBALAMIN 500 MCG TAB PO SCH (07:53)
[2021-10-21] MEDS: FUROSEMIDE 20 MG TAB PO SCH (07:53)
[2021-10-21] MEDS: hydrALAZINE HCL 50 MG TAB PO SCH ×2 (07:53→19:39)
[2021-10-21] MEDS: metroNIDAZOLE 500 MG TAB PO SCH ×4 (07:53→22:32)
[2021-10-21] MEDS: INSULIN ASPART (NovoLOG) 100 UNIT/ML VIAL SQ SCH ×4 (07:53→21:00)
[2021-10-21] MEDS: DOCUSATE 100 MG CAP PO SCH (07:53)
[2021-10-21] MEDS: amLODIPine 10 MG TAB PO SCH (07:53)
[2021-10-21] MEDS: ATORVASTATIN 10 MG TAB PO SCH (07:53)
[2021-10-21] MEDS: FERROUS SULFATE 325 MG TAB PO SCH ×2 (07:53→17:54)
[2021-10-21] MEDS: CLOPIDOGREL 75 MG TAB PO SCH (07:54)
[2021-10-21 07:55] LABS: African American GFR (CKD) 42 (>60 ml/min/1.73 sqM); Anion Gap 7 mmol/L; Blood Urea Nitrogen 22 mg/dL (7-17); Calcium 8.5 mg/dL (8.4-10.2); Carbon Dioxide 21 mmol/L (22-30); Chloride 106 mmol/L (98-107); Glucose 148 mg/dL (74-99); Non-African American GFR(CKD) 37 (>60 ml/min/1.73 sqM); Potassium 3.8 mmol/L (3.5-5.1); Sodium 134 mmol/L (137-145)
[2021-10-21] MEDS: CEFEPIME 2 GM in SODIUM CHLORIDE 0.9% 100 ML IVPB SCH ×2 (07:55→19:38)
[2021-10-21] MEDS: RIVAROXABAN 15 MG TAB PO SCH (07:56)
--- NOTE | 2021-10-21 10:48 | P.NPCON ---
History of Present Illness - Reason for Consult chronic renal failure - History of Present Illness Patient is an 81-year-old female with history of chronic kidney disease NKF stage III be with creatinine baseline at 1.3-1.5 g/dL. Next Patient was admitted to the hospital with left lower extremity wound and is currently status post debridement of wound at left metatarsal amputation. Patient has been confused. She has not been eating well. A PICC line is needed for antibiotics. Nephrology is therefore consulted. Patient has had good urine output. She has an indwelling Don catheter. Blood pressure is not low. Patient has been confused Review of Systems As per HPI Past Medical History Past Medical History: Atrial Fibrillation, Diabetes Mellitus, Hypertension Additional Past Medical History / Comment(s): wound rt foot, wound to left pinkey, wound right abdominal wall History of Any Multi-Drug Resistant Organisms: None Reported Past Surgical History: Cholecystectomy Additional Past Surgical History / Comment(s): hematoma removal abdomen Past Anesthesia/Blood Transfusion Reactions: No Reported Reaction Past Psychological History: No Psychological Hx Reported Smoking Status: Never smoker Past Alcohol Use History: None Reported Past Drug Use History: None Reported - Past Family History Sister(s) Family Medical History: Cancer Brother(s) Family Medical History: Cancer Medications and Allergies Home Medications Medication Instructions Recorded Confirmed Type Cyanocobalamin [Vitamin B-12] 500 mcg PO DAILY 06/28/21 10/14/21 History Furosemide [Lasix] 20 mg PO DAILY 06/28/21 10/14/21 History Insulin Lispro [Insulin Lispro See Protocol SQ AC-TID 06/28/21 10/14/21 History Kwikpen U-100] Rivaroxaban [Xarelto] 15 mg PO DAILY 06/28/21 10/14/21 History Simvastatin [Zocor] 20 mg PO DAILY 06/28/21 10/14/21 History Clopidogrel [Plavix] 75 mg PO DAILY 30 Days #30 tab 07/25/21 10/14/21 Rx Insulin Glargine [Lantus Vial] 12 unit SQ HS 10/14/21 10/14/21 History Insulin Lispro [humaLOG Kwikpen] 6 unit SQ AC-TID 10/14/21 10/14/21 History hydrALAZINE HCL [Apresoline] 50 mg PO TID 10/14/21 10/14/21 History lisinopriL [Zestril] 5 mg PO DAILY 10/14/21 10/14/21 History Allergies Allergy/AdvReac Type Severity Reaction Status Date / Time aspirin Allergy Anaphylaxis Verified 10/14/21 08:10 Physical Exam Vitals: Vital Signs Temp Pulse Resp BP BP Pulse Ox 10/21/21 05:00 98.4 F 58 L 16 134/53 99 10/20/21 20:38 98.1 F 51 L 16 125/56 100 10/20/21 11:53 97.6 F 52 L 13 157/55 100 Intake and Output 10/20/21 10/21/21 10/21/21 22:59 06:59 14:59 Intake Total 775 Output Total 800 1300 Balance -800 -525 Intake: Intake, IV Titration 775 Amount Cefepime 2 gm In Sodium 100 Chloride 0.9% 100 ml @ 25 mls/hr IVPB Q12HR [facility] Rx #:[id number] Sodium Chloride 0.9% 1, 675 000 ml @ 75 mls/hr IV . [id number] [facility] Rx#:[id number] Output: Urine 800 1300 Uretheral (Don) 1300 Other: Voiding Method Indwelling Catheter # Bowel Movements 3 Awake, comfortable, confused Examination of the heart S1 and S2 Examination lungs bilateral breath sounds are heard Abdomen is soft nontender Examination of the lower extremities shows no significant edema left metatarsal amputation Results - Lab Results Most recent lab results Calcium 8.5 mg/dL (8.4-10.2) 10/21/21 06:43 Magnesium 2.1 mg/dL (1.6-2.3) 10/20/21 05:59 10/19/21 11:57 10/21/21 06:43 Assessment and Plan Assessment: 1. Chronic kidney disease NKF stage IIIB with renal function currently stable with creatinine at 1.3-1.4 mg/dL at baseline. 2. Left foot transmetatarsal wound daily since and cellulitis status post I&D 3. Urine retention currently with indwelling Don catheter 4. Mental status changes 5. Chronic A. fib Plan: Continue antibiotics Hold Lasix Continue to encourage increase oral intake Avoid hypotension Okay to proceed with PICC line placement and dominant arm
--- NOTE | 2021-10-21 10:57 | P.PN ---
Subjective Progress Note Date: 10/21/21 Principal diagnosis: Nonhealing wound, infected wound Patient seen and examined this a follow-up. She still remains pleasantly confused, but she is alert and oriented to self and place. PT and OT working with the patient. Plan is for possible PICC line placement today and discharge to [facility]. She remains afebrile. On IV antibiotics. Her daughters are at the bedside. Objective - Vital Signs Vital signs: Vital Signs Temp 98.4 F 10/21/21 05:00 Pulse 58 L 10/21/21 05:00 Resp 16 10/21/21 05:00 BP 134/53 10/21/21 05:00 Pulse Ox 99 10/21/21 05:00 FiO2 Intake & Output 10/20/21 10/21/21 10/21/21 18:59 06:59 18:59 Intake Total 775 Output Total 3600 1300 Balance -3600 -525 Intake: Intake, IV Titration 775 Amount Cefepime 2 gm In Sodium 100 Chloride 0.9% 100 ml @ 25 mls/hr IVPB Q12HR [facility] Rx #:[id number] Sodium Chloride 0.9% 1, 675 000 ml @ 75 mls/hr IV . [id number] [facility] Rx#:[id number] Output: Urine 3600 1300 Uretheral (O[place]) 1300 Other: Voiding Method Indwelling Catheter Indwelling Catheter # Bowel Movements 3 - Exam General appearance: The patient is alert, oriented to self, appears in no acute distress. HET: Head is normocephalic and atraumatic. Neck: Supple without lymphadenopathy. Trachea midline. Heart: Regular rate. Lungs: Equal expansion. Abdomen: Soft, nontender, nondistended. Extremities: Left lower extremity TMA site with wound VAC in place with good suction. Right lower extremity foot with dressing clean dry and intact. Neurological: No focal deficits. Pleasantly confuse, alert and orientated to self and place. - Labs CBC & Chem 7: 10/19/21 11:57 10/21/21 06:43 Labs: Abnormal Lab Results - Last 24 Hours (Table) 10/20/21 10/20/21 10/20/21 Range/Units 10:59 12:16 17:03 PT 13.7 H (9.0-12.0) sec INR 1.3 H (<1.2) Sodium (137-145) mmol/L Carbon Dioxide (22-30) mmol/L BUN (7-17) mg/dL Creatinine (0.52-1.04) mg/dL Glucose (74-99) mg/dL POC Glucose (mg/dL) 199 H 264 H (75-99) mg/dL 10/20/21 10/21/21 10/21/21 Range/Units 20:05 06:43 06:43 PT 14.1 H (9.0-12.0) sec INR 1.4 H (<1.2) Sodium 134 L (137-145) mmol/L Carbon Dioxide 21 L (22-30) mmol/L BUN 22 H (7-17) mg/dL Creatinine 1.37 H (0.52-1.04) mg/dL Glucose 148 H (74-99) mg/dL POC Glucose (mg/dL) 256 H (75-99) mg/dL 10/21/21 Range/Units 07:05 PT (9.0-12.0) sec INR (<1.2) Sodium (137-145) mmol/L Carbon Dioxide (22-30) mmol/L BUN (7-17) mg/dL Creatinine (0.52-1.04) mg/dL Glucose (74-99) mg/dL POC Glucose (mg/dL) 156 H (75-99) mg/dL Microbiology - Last 24 Hours (Table) 10/18/21 06:53 Blood Culture - Preliminary Blood No Growth after 72 hours Assessment and Plan Assessment: 1. Left foot wound status post debridement with wound VAC 2. Nonhealing left foot wound with infection 3. Diabetes mellitus Plan: 1. Continue wound VAC, change Sunday 2. Antibiotics per infectious disease recommendation 3. Physical therapy, nonweightbearing on left foot 4. The patient is cleared by vascular surgery for discharge. Follow-up wound care clinic. The impression and plan of care has been dictated as directed. Dr. Don I performed a history and examination of this patient, discussed the same with the dictator. I agree with the dictator's note ,documented as a scribe. Any additional findings or plans will be noted.
[2021-10-21 12:38] LABS: Glucose,Whole Blood 182 mg/dL (75-99)
[2021-10-21] MEDS ORDERED: LIDOCAINE 1% INJ 10MG/ML (5 ML VIAL-PF) SQ ONE (13:03)
[2021-10-21] MEDS: THIAMINE 100 MG TAB PO SCH (13:44)
[2021-10-21] MEDS: MULTIVITAMINS, THERA 1 EACH TAB PO SCH (13:45)
[2021-10-21] MEDS: FOLIC ACID 1 MG TAB PO SCH (13:45)
--- NOTE | 2021-10-21 14:36 | IR ---
EXAMINATION TYPE: IR cvc insert >=5 years DATE OF EXAM: 10/21/2021 COMPARISON: NONE CLINICAL HISTORY: Infection Needs long-term intravenous access for antibiotics. PROCEDURE: Hand hygiene obtained with soap and water and alcohol-based hand rub. After informed consent, the skin overlying the right basilic vein was localized with ultrasound and n oted to be compressible and patent. An ultrasound image was obtained and submitted on the patient's chart. The overlying skin was prepped and draped and Lidocaine was used for local anesthesia. A ski n lalitha was made with a scalpel. Access was gained to the vein under ultrasound guidance with a 21 ga uge needle and a 0.018 inch wire was advanced. Access site was dilated with Peel-Away sheath and cat heter tailored to the appropriate length and advanced such that the distal tip is at the cavoatrial j unction. Spot image was obtained verifying placement. Catheter was fixed to the skin and a sterile dressing was placed following hemostasis. Catheter was aspirated and flushed with saline. Patient w as discharged in stable condition without complication.Maximal barrier technique is utilized. Ultras ound image is documented on the chart. Ultrasound used with sterile technique. Fluoro time and fluoroscopic images submitted to document procedure: 65 intraoperative C-arm images d ocument the procedure, 0.7 minutes fluoroscopy time IMPRESSION: STATUS POST ULTRASOUND AND FLUOROSCOPIC GUIDED PICC LINE PLACEMENT, READY FOR USE. THIS PROCEDURE WAS PERFORMED BY THE UNDERSIGNED.
[2021-10-21 17:39] LABS: Glucose,Whole Blood 175 mg/dL (75-99)
[2021-10-21] MEDS: COLLAGENASE 250 UNIT/GM OINTMENT 30 GM TUBE TOPICAL SCH (17:55)
[2021-10-21 20:33] LABS: Glucose,Whole Blood 194 mg/dL (75-99)
--- NOTE | 2021-10-22 06:24 | P.PN ---
Subjective Progress Note Date: 10/21/21 Left foot transmetatarsal wound dehiscence and cellulitis Left lower extremity nonhealing wound, infection; status post Sharp excisional debridement Urinary retention 81-year-old female with a past medical history significant for diabetes mellitus patient did have a recent history of left fourth and fifth toe gangrene and this patient was status post left transmetatarsal amputation patient was subsequently discharged to the local alf for rehabilitation, while at the alf the patient did have dehiscence of the left foot transmetatarsal amputation site incision, patient was evaluated in the wound care center yesterday with the patient was noticed to be febrile he did have significant foul-smelling drainage with associated swelling and redness to the left foot wound patient be c omplaining of feeling weak and tired and no energy for the last few days patient was subsequently referred to the ER, the patient was evaluated by the ER physician on arrival to the ER the patient was afebrile did have elevated white count, patient did have x-ray of the foot which he did shows soft tissue a.ir suspicious for cellulitis or gangrene patient was evaluated by vascular surgery this morning and was taken to the OR and status post debridement of the wound patient had been started on vancomycin and Unasyn and infectious disease was consulted for further management, patient at time of evaluation denies having any fever or chills pain to the left foot is currently controlled no chest pain shortness of breath or cough no nausea no vomiting no abdominal pain no diarrhea Patient is seen and evaluated with multiple family members at bedside; concerns about episodes of confusion; vital signs remained stable - Detailed discussion about current condition and plans of care and likelihood of metabolic/toxic encephalopathy discussed with patient's family; we did agree with neuro consult if no improvement in mental status with treatment 10/16/2021 Patient is seen and evaluated in room at bedside; patient is more awake and alert this morning; daughters are present in the room and report improved mentation Labs are reviewed and reveal WBC of 7.7, hemoglobin 8.5, platelet count of 201, sodium 132, potassium 3.2, BUN/creatinine of 29/1.35 and blood glucose of 189 Patient remains on IV cefepime 2 g IV every 12 hours and metronidazole 500 mg by mouth 3 times a day per ID recommendations 10/18/2021 Patient is seen in follow-up this morning currently sitting up in the chair and continues with wound VAC to the left foot and maintained on IV antibiotics with infectious disease following. Patient was evaluated by vascular surgery today recommending outpatient follow-up and continue with wound care and wound VAC. Patient was admitted with left foot wound dehiscence and cellulitis with features of sepsis, present on admission. Awaiting finalized cultures and will need to discuss with infectious disease about discharge planning. Daughter is adamant about having the patient return home as she has her caregiver and will continue with PT/OT therapy for now and patient is to remain nonweightbearing of that left lower extremity with the wound VAC. PT/OT therapy recommending subacute rehab. Patient denies any chest pain or shortness of breath. Patient is afebrile. Patient denies nausea or vomiting and tolerating diet. Patient is extremely anxious and wanting to go home today. 10/19/2021 Patient is evaluated today and is somewhat confused per nursing staff. Patient is continued with wound vac and IV antibiotics. Repeat blood cultures are negative thus far and patient will need PICC line and IV abx on discharge. Case management following and plan is for home with home care as family is refusing to have the patient go to ECF. Patient is currently afebrile. Patient denies shortness of breath. Patient continues to request to go home. Encouraged oral intake and PT to work with the patient daily. Recommend replacing electrolytes per protocol. Hold xarelto for PICC line tomorrow. 10/20/2021 Patient is seen today and is sitting up in the chair with daughter Kirsty at the bedside. Patient electrolytes replaced per protocol improved. Patient with mildly elevated creatinine requiring nephrology clearance for PICC line placement and recommend to continue to hold xarelto with possible PICC line in am. Will repeat am labs. Patient is to continue with non-weightbearing of the left lower extremity. Wound vac of the left foot. Patient maintained on IV abx with ID following. Patient is afebrile and denies chest pain or shortness of breath. 10/21/2021 Patient evaluated today with all family members at the bedside as patient continues to be confused. Patient wishes to go home and is extremely weak and will need ecf for continued PT/OT therapy to build strength while maintaining non-weightbearing to the left lower extremity that currently continues with wound vac and IV antibiotics. Nephrology evaluated the patient for GFR for clearance to receive and patient will receive today. Patient family report that she has 2 covid vaccine and needs booster and currently working on scheduling as family would like patient to go to [facility] and requires this booster. Social work following and awaiting insurance authorization. Patient is afebrile and denies chest pain or shortness of breath. Patient is on room air. Resume xarelto after PICC line. Encouraged oral intake. Review of systems: Constitutional: No reports of fatigue, fever, or chills Cardiovascular: No reports of chest pain or palpitations Respiratory: No reports of shortness of breath or cough GI: No reports of nausea, vomiting, or diarrhea : No reports of dysuria or retention Neurovascular: reports of generalized weakness All medications have been reviewed Active Medications Acetaminophen (Acetaminophen Tab 325 Mg Tab) 650 mg PO Q6HR PRN PRN Reason: Mild Pain or Fever > 100.5 Last Admin: 10/21/21 19:38 Dose: 650 mg Alprazolam (Alprazolam 0.25 Mg Tab) 0.25 mg PO BID PRN PRN Reason: Anxiety Last Admin: 10/20/21 17:31 Dose: 0.25 mg Amlodipine Besylate (Amlodipine 10 Mg Tab) 10 mg PO DAILY [facility] Last Admin: 10/21/21 07:53 Dose: 10 mg Atorvastatin Calcium (Atorvastatin 10 Mg Tab) 10 mg PO DAILY [facility] Last Admin: 10/21/21 07:53 Dose: 10 mg Clopidogrel Bisulfate (Clopidogrel 75 Mg Tab) 75 mg PO DAILY [facility] Last Admin: 10/21/21 07:54 Dose: 75 mg Collagenase (Collagenase 250 Unit/Gm Ointment 30 Gm Tube) 1 applic TOPICAL DAILY [facility]; Protocol Last Admin: 10/21/21 17:55 Dose: 1 applic Cyanocobalamin (Cyanocobalamin 500 Mcg Tab) 500 mcg PO DAILY [facility] Last Admin: 10/21/21 07:53 Dose: 500 mcg Docusate Sodium (Docusate 100 Mg Cap) 100 mg PO DAILY [facility] Last Admin: 10/21/21 07:53 Dose: 100 mg Ferrous Sulfate (Ferrous Sulfate 325 Mg Tab) 325 mg PO BID-W/MEALS [facility] Last Admin: 10/21/21 17:54 Dose: 325 mg Folic Acid (Folic Acid 1 Mg Tab) 1 mg PO DAILY@1200 [facility] Last Admin: 10/21/21 13:45 Dose: 1 mg Hydralazine HCl (Hydralazine Hcl 50 Mg Tab) 50 mg PO BID [facility] Last Admin: 10/21/21 19:39 Dose: 50 mg Sodium Chloride (Saline 0.9%) 1,000 mls @ 75 mls/hr IV .[id number] [facility] Last Admin: 10/21/21 17:56 Dose: 75 mls/hr Cefepime HCl 2 gm/ Sodium (Chloride) 100 mls @ 25 mls/hr IVPB Q12HR [facility]; Protoc ol Last Admin: 10/21/21 19:38 Dose: 25 mls/hr Insulin Aspart (Insulin Aspart (Novolog) 100 Unit/Ml Vial) 0 unit SQ ACHS [facility]; Protocol Last Admin: 10/21/21 21:00 Dose: 2 unit Metronidazole (Metronidazole 500 Mg Tab) 500 mg PO TID [facility]; Protocol Last Admin: 10/21/21 22:32 Dose: 500 mg Miscellaneous Information (Magnesium Replacement Protocol 1 Each Misc) 1 each MISCELLANE DAILY PRN; Protocol PRN Reason: Per Protocol Miscellaneous Information (Potassium Replacement Protocol 1 Each Misc) 1 each MISCELLANE DAILY PRN; Protocol PRN Reason: Per Protocol Multivitamins (Multivitamins, Thera 1 Each Tab) 1 each PO DAILY@1200 [facility] Last Admin: 10/21/21 13:45 Dose: 1 each Naloxone HCl (Naloxone 0.4 Mg/Ml 1 Ml Vial) 0.2 mg IV Q2M PRN PRN Reason: Opioid Reversal Polyethylene Glycol (Polyethylene Glycol 3350 17 Gm Powd.Pack) 17 gm PO DAILY PRN PRN Reason: Constipation Rivaroxaban (Rivaroxaban 15 Mg Tab) 15 mg PO DAILY [facility]; Protocol Last Admin: 10/21/21 07:56 Dose: 15 mg Sodium Chloride (Sodium Chloride 0.9% Flush 10 Ml Syringe) 10 ml IV Q4HR PRN PRN Reason: PICC Line Sodium Chloride (Sodium Chloride 0.9% Flush 10 Ml Syringe) 10 ml IV WEEKLY [facility] Sodium Chloride (Sodium Chloride 0.9% Flush 10 Ml Syringe) 20 ml IV Q4HR PRN PRN Reason: PICC Line Tamsulosin HCl (Tamsulosin 0.4 Mg Cap.Er.24h) 0.4 mg PO [id number] [facility] Last Admin: 10/21/21 07:53 Dose: 0.4 mg Thiamine HCl (Thiamine 100 Mg Tab) 100 mg PO DAILY@1200 [facility] Last Admin: 10/21/21 13:44 Dose: 100 mg PHYSICAL EXAMINATION: GENERAL: The patient is alert and oriented x2. Well developed, well nourished. HEENT: Pupils are round and equally reacting to light. EOMI. No scleral icterus. No conjunctival pallor. Normocephalic, atraumatic. No pharyngeal erythema. No thyromegaly. CARDIOVASCULAR: S1 and S2 muffled PULMONARY: Diminished breath sounds bilaterally with some scattered rhonchi noted ABDOMEN: Soft, nontender, nondistended, normoactive bowel sounds. No palpable organomegaly. MUSCULOSKELETAL: No joint swelling or deformity. EXTREMITIES: No cyanosis, clubbing, or pedal edema. Left lower foot extremity with wound VAC NEUROLOGICAL: Gross neurological examination did not reveal any focal deficits. Diffuse weakness SKIN: No rashes. Assessment: Acute left foot transmetatarsal wound dehiscence and cellulitis Left lower extremity wound, status post incision and drainage altered mental status possibly secondary to metabolic encephalopathy and electrolyte abnormality and possible component of hospital acquired delirium hyponatremia, improved Hypokalemia, improved hypomagnesemia, improved Leukocytosis with features of sepsis, present on admission most likely secondary to infected diabetic left foot wound with surrounding cellulitis Chronic congestive heart failure with preserved EF, most recent EF was 50-55% in June 2021 Permanent atrial fibrillation Urinary retention Hypertension Hyperlipidemia Diabetes mellitus type 2 GI prophylaxis DVT prophylaxis, on xarelto No code Plan: Patient is currently maintained on IV antibiotics with multiple medical consultations including vascular surgery infectious disease, and urology following. Patient having some urinary retention requiring indwelling Austin catheter and has been evaluated by urology. Will continue indwelling austin catheter at this time. Patient also continues on oral Flagyl along with IV cefepime while awaiting for cultures to finalize. Patient to receive a PICC line for outpatient abx therapy today and has been cleared by Nephrology. Patient with weakness and is to be nonweightbearing of that left lower extremity with the wound VAC and is being followed by PT/OT therapy recommending ECF for continued rehab to build up strength and mobility and discussed further with social work and plan is for possible [facility] per daughter Kirsty who is the decision maker. Awaiting insurance authorization. Will continue with local wound care and wound VAC. Recommend replacing electrolytes per protocol and repeat am labs. Resume xarelto after PICC line. Due to multiple complex medical issues, prognosis is guarded. The impression and plan of care has been dictated by Mildred Swift, Nurse Practitioner as directed. Dr. Jakob MD I have performed a history and examination and MDM of this patient, discussed the same with the dictator, and agree with the dictator's assessment and plan as written ,documented as a scribe. Based on total visit time, I have performed more than 50% of the visit. Objective - Vital Signs Vital signs: Vital Signs Temp 98.4 F 10/21/21 05:00 Pulse 58 L 10/21/21 05:00 Resp 16 10/21/21 05:00 BP 134/53 10/21/21 05:00 Pulse Ox 99 10/21/21 05:00 FiO2 Intake & Output 10/20/21 10/21/21 10/21/21 18:59 06:59 18:59 Intake Total 775 Output Total 3600 1300 Balance -3600 -525 Intake: Intake, IV Titration 775 Amount Cefepime 2 gm In Sodium 100 Chloride 0.9% 100 ml @ 25 mls/hr IVPB Q12HR [facility] Rx #:[id number] Sodium Chloride 0.9% 1, 675 000 ml @ 75 mls/hr IV . [id number] [facility] Rx#:[id number] Output: Urine 3600 1300 Uretheral ([place]) 1300 Other: Voiding Method Indwelling Catheter Indwelling Catheter # Bowel Movements 3 - Labs CBC & Chem 7: 10/19/21 11:57 10/21/21 06:43 Labs: Abnormal Lab Results - Last 24 Hours (Table) 10/20/21 10/20/21 10/20/21 Range/Units 10:59 12:16 17:03 PT 13.7 H (9.0-12.0) sec INR 1.3 H (<1.2) Sodium (137-145) mmol/L Carbon Dioxide (22-30) mmol/L BUN (7-17) mg/dL Creatinine (0.52-1.04) mg/dL Glucose (74-99) mg/dL POC Glucose (mg/dL) 199 H 264 H (75-99) mg/dL 10/20/21 10/21/21 10/21/21 Range/Units 20:05 06:43 06:43 PT 14.1 H (9.0-12.0) sec INR 1.4 H (<1.2) Sodium 134 L (137-145) mmol/L Carbon Dioxide 21 L (22-30) mmol/L BUN 22 H (7-17) mg/dL Creatinine 1.37 H (0.52-1.04) mg/dL Glucose 148 H (74-99) mg/dL POC Glucose (mg/dL) 256 H (75-99) mg/dL 10/21/21 Range/Units 07:05 PT (9.0-12.0) sec INR (<1.2) Sodium (137-145) mmol/L Carbon Dioxide (22-30) mmol/L BUN (7-17) mg/dL Creatinine (0.52-1.04) mg/dL Glucose (74-99) mg/dL POC Glucose (mg/dL) 156 H (75-99) mg/dL Microbiology - Last 24 Hours (Table) 10/18/21 06:53 Blood Culture - Preliminary Blood No Growth after 72 hours
[2021-10-22 07:34] LABS: Basophils % (A) 0 %; Eosinophils # (A) 0.4 k/uL (0-0.7); Eosinophils % (A) 5 %; HGB 9.1 gm/dL (11.4-16.0); Lymphocytes % (A) 13 %; MCH 29.9 pg (25.0-35.0); MCHC 31.3 g/dL (31.0-37.0); MCV 95.6 fL (80.0-100.0); Mean Platelet Volume 7.5; Monocytes # (A) 0.4 k/uL (0-1.0); Monocytes % (A) 6 %; Neutrophils # (A) 5.4 k/uL (1.3-7.7); Neutrophils % (A) 74 %; Platelet Count 311 k/uL (150-450); RBC 3.03 m/uL (3.80-5.40); RDW 14.9 % (11.5-15.5); WBC 7.3 k/uL (3.8-10.6)
[2021-10-22 07:43] LABS: Glucose,Whole Blood 224 mg/dL (75-99)
[2021-10-22 07:44] LABS: African American GFR (CKD) 40 (>60 ml/min/1.73 sqM); Anion Gap 8 mmol/L; Blood Urea Nitrogen 24 mg/dL (7-17); Calcium 8.9 mg/dL (8.4-10.2); Carbon Dioxide 23 mmol/L (22-30); Chloride 104 mmol/L (98-107); Glucose 216 mg/dL (74-99); Non-African American GFR(CKD) 35 (>60 ml/min/1.73 sqM); Potassium 3.7 mmol/L (3.5-5.1); Sodium 135 mmol/L (137-145)
[2021-10-22] MEDS: ATORVASTATIN 10 MG TAB PO SCH (08:57)
[2021-10-22] MEDS: CYANOCOBALAMIN 500 MCG TAB PO SCH (08:57)
[2021-10-22] MEDS: amLODIPine 10 MG TAB PO SCH (08:57)
[2021-10-22] MEDS: metroNIDAZOLE 500 MG TAB PO SCH ×3 (08:57→22:09)
[2021-10-22] MEDS: TAMSULOSIN 0.4 MG CAP.ER.24H PO SCH (08:57)
[2021-10-22] MEDS: DOCUSATE 100 MG CAP PO SCH (08:57)
[2021-10-22] MEDS: CLOPIDOGREL 75 MG TAB PO SCH (08:57)
[2021-10-22] MEDS: INSULIN ASPART (NovoLOG) 100 UNIT/ML VIAL SQ SCH ×4 (08:58→20:50)
[2021-10-22] MEDS: RIVAROXABAN 15 MG TAB PO SCH (08:58)
[2021-10-22] MEDS: FERROUS SULFATE 325 MG TAB PO SCH ×2 (09:01→17:51)
[2021-10-22] MEDS: hydrALAZINE HCL 50 MG TAB PO SCH ×2 (09:01→20:51)
[2021-10-22] MEDS: CEFEPIME 2 GM in SODIUM CHLORIDE 0.9% 100 ML IVPB SCH ×2 (09:01→20:51)
--- NOTE | 2021-10-22 09:02 | P.PN ---
Subjective Patient is seen in follow-up for chronic kidney disease. Renal function stable. Oral intake.. Receiving IV fluids. Nonoliguric. Son present at bedside. Vital signs are stable. General: No acute distress. HEENT: Head exam is unremarkable. LUNGS: Breath sounds decreased. HEART: Rate and Rhythm are regular. ABDOMEN: Soft, no distention. EXTREMITITES: No edema. No drainage noted. Objective - Vital Signs Vital signs: Vital Signs Temp 98.0 F 10/22/21 05:00 Pulse 52 L 10/22/21 05:00 Resp 16 10/22/21 05:00 BP 140/57 10/22/21 05:00 Pulse Ox 100 10/22/21 05:00 FiO2 Intake & Output 10/21/21 10/22/21 10/22/21 18:59 06:59 18:59 Intake Total 1500 1350 Output Total 1900 Balance -400 1350 Intake: Intake, IV Titration 1000 700 Amount Cefepime 2 gm In Sodium 100 100 Chloride 0.9% 100 ml @ 25 mls/hr IVPB Q12HR [facility] Rx #:[id number] Sodium Chloride 0.9% 1, 900 600 000 ml @ 75 mls/hr IV . [id number] [facility] Rx#:[id number] Oral 500 650 Output: Urine 1900 Other: Voiding Method Indwelling Catheter Indwelling Catheter # Voids 1 # Bowel Movements 2 1 - Labs CBC & Chem 7: 10/22/21 06:50 10/22/21 06:50 Labs: Abnormal Lab Results - Last 24 Hours (Table) 10/21/21 10/21/21 10/21/21 Range/Units 12:34 17:37 20:32 RBC (3.80-5.40) m/uL Hgb (11.4-16.0) gm/dL Hct (34.0-46.0) % Sodium (137-145) mmol/L BUN (7-17) mg/dL Creatinine (0.52-1.04) mg/dL Glucose (74-99) mg/dL POC Glucose (mg/dL) 182 H 175 H 194 H (75-99) mg/dL 10/22/21 10/22/21 10/22/21 Range/Units 06:50 06:50 07:42 RBC 3.03 L (3.80-5.40) m/uL Hgb 9.1 L (11.4-16.0) gm/dL Hct 29.0 L (34.0-46.0) % Sodium 135 L (137-145) mmol/L BUN 24 H (7-17) mg/dL Creatinine 1.42 H (0.52-1.04) mg/dL Glucose 216 H (74-99) mg/dL POC Glucose (mg/dL) 224 H (75-99) mg/dL Microbiology - Last 24 Hours (Table) 10/18/21 06:53 Blood Culture - Preliminary Blood No Growth after 72 hours Assessment and Plan Plan: Assessment: 1. Chronic kidney disease stage IIIB with baseline creatinine in the range of 1.3-1.5 secondary to diabetic kidney disease. GFR at baseline. 2. 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 Also noted to have staph aureus bacteremia. On antibiotics per infectious disease. PICC line was placed 10/21/2021. 3. Hypertension with chronic kidney disease. 4. Diabetes mellitus. 5. Urinary retention. Has Don catheter. On Flomax. 6. Anemia of chronic kidney disease. Plan: Decrease normal saline to 50 mL an hour. Encouraged oral intake. Continue to monitor renal function and urine output. Add Aranesp. Avoid IV iron in the setting of acute infection.
[2021-10-22] MEDS ORDERED: DARBEPOETIN ALFA 40 MCG/0.4 ML SYRINGE SQ SCH (11:00)
[2021-10-22 11:13] LABS: Glucose,Whole Blood 211 mg/dL (75-99)
[2021-10-22] MEDS: COLLAGENASE 250 UNIT/GM OINTMENT 30 GM TUBE TOPICAL SCH (13:10)
[2021-10-22] MEDS: SODIUM CHLORIDE 0.9% 1,000 ML IV SCH ×2 (13:10→17:51)
[2021-10-22] MEDS: MULTIVITAMINS, THERA 1 EACH TAB PO SCH (13:16)
[2021-10-22] MEDS: THIAMINE 100 MG TAB PO SCH (13:16)
[2021-10-22] MEDS: FOLIC ACID 1 MG TAB PO SCH (13:16)
--- NOTE | 2021-10-22 15:00 | PN ---
PROGRESS NOTE DATE OF SERVICE: 10/22/2021 This 81-year-old woman who was admitted with left foot transmetatarsal wound dehiscence and cellulitis is being closely monitored. No chest pain. No palpitations. IV antibiotics at the time of admission. PHYSICAL EXAMINATION: Pulse is 52, blood pressure 142/70, respiration 16. CHEST: Clear to auscultation. CARDIOVASCULAR: S1, S2 muffled. ABDOMEN: Soft. NERVOUS SYSTEM: Diffusely weak. Foot ulcer has wound V.A.C. present. LABS: Creatinine 1.42. Other labs noted. ASSESSMENT: 1. Acute left foot transmetatarsal wound dehiscence and cellulitis. 2. Change in mental status, metabolic encephalopathy. 3. Electrolyte imbalance. 4. Hypertension. 5. Hyperlipidemia. RECOMMENDATIONS AND DISCUSSION: I recommend to continue current medications, continue with the monitoring, symptomatic treatment. I would recommend continuing the antibiotics. PT/OT evaluation. Possible ECF rehab. Guarded prognosis. Further recommendations to follow. MMODL / IJN: [id number] /
[2021-10-22 17:12] LABS: Glucose,Whole Blood 252 mg/dL (75-99)
[2021-10-22 20:41] LABS: Glucose,Whole Blood 250 mg/dL (75-99)
[2021-10-22] MEDS: ACETAMINOPHEN TAB 325 MG TAB PO PRN (20:52)
--- NOTE | 2021-10-22 23:47 | P.PN ---
Subjective Progress Note Date: 10/21/21 Principal diagnosis: Left foot transmetatarsal wound dehiscence and cellulitis Patient is a 81-year-old female who was recently admitted at this facility and status post transmetatarsal Amputation of the left foot, subsequently admitted to the hospital with left foot wound dehiscence and secondary cellulitis. Patient was taken to the OR 527 to status post debridement of the wound and deep cultures. On today's evaluation that is 10/21/2021, the patient remains to be afebrile, the patient is breathing comfortably on room air, the patient denies chest pain or cough no abdominal pain and pain to the left foot wound area is currently controlled, patient is slightly lethargic today and apparently has received a dose of Xanax yesterday Objective - Vital Signs Vital signs: Vital Signs Temp 98.4 F 10/21/21 05:00 Pulse 58 L 10/21/21 05:00 Resp 16 10/21/21 05:00 BP 134/53 10/21/21 05:00 Pulse Ox 99 10/21/21 05:00 FiO2 Intake & Output 10/20/21 10/21/21 10/21/21 18:59 06:59 18:59 Intake Total 775 Output Total 3600 1300 Balance -3600 -525 Intake: Intake, IV Titration 775 Amount Cefepime 2 gm In Sodium 100 Chloride 0.9% 100 ml @ 25 mls/hr IVPB Q12HR [facility] Rx #:[id number] Sodium Chloride 0.9% 1, 675 000 ml @ 75 mls/hr IV . [id number] [facility] Rx#:[id number] Output: Urine 3600 1300 Uretheral (Don) 1300 Other: Voiding Method Indwelling Catheter Indwelling Catheter # Bowel Movements 3 - Exam GENERAL DESCRIPTION: An elderly female lying in bed in no distress RESPIRATORY SYSTEM: Unlabored breathing , decreased breath sounds at bases HEART: S1 S2 regular rate and rhythm , ABDOMEN: Soft , no tenderness EXTREMITIES: Left foot wound with some slough tissue and the bone is exposed surrounding redness has improved - Labs CBC & Chem 7: 10/22/21 06:50 10/22/21 06:50 Labs: Abnormal Lab Results - Last 24 Hours (Table) 10/20/21 10/20/21 10/20/21 Range/Units 12:16 17:03 20:05 PT 13.7 H (9.0-12.0) sec INR 1.3 H (<1.2) Sodium (137-145) mmol/L Carbon Dioxide (22-30) mmol/L BUN (7-17) mg/dL Creatinine (0.52-1.04) mg/dL Glucose (74-99) mg/dL POC Glucose (mg/dL) 264 H 256 H (75-99) mg/dL 10/21/21 10/21/21 10/21/21 Range/Units 06:43 06:43 07:05 PT 14.1 H (9.0-12.0) sec INR 1.4 H (<1.2) Sodium 134 L (137-145) mmol/L Carbon Dioxide 21 L (22-30) mmol/L BUN 22 H (7-17) mg/dL Creatinine 1.37 H (0.52-1.04) mg/dL Glucose 148 H (74-99) mg/dL POC Glucose (mg/dL) 156 H (75-99) mg/dL Microbiology - Last 24 Hours (Table) 10/18/21 06:53 Blood Culture - Preliminary Blood No Growth after 72 hours Assessment and Plan (1) Diabetic infection of left foot Current Visit: Yes Status: Acute Code(s): E11.628 - TYPE 2 DIABETES MELLITUS WITH OTHER SKIN COMPLICATIONS; L08.9 - LOCAL INFECTION OF THE SKIN AND SUBCUTANEOUS TISSUE, UNSP SNOMED Code(s): 09794867 Plan: 1patient with recent history of left foot/toes gangrene in this patient who is status post transmetatarsal amputation now presented to hospital with dehiscence of the wound and concern for secondary cellulitis with significant foul-smelling drainage in this patient status post debridement and cultures are currently pending. Cultures are now growing Pseudomonas MSSA, 2-blood cultures with MSSA, blood cultures repeat has been negative 3patient to continue with cefepime and Flagyl, patient did get a PICC line and plan is to continue with cefepime and Flagyl for another 5 weeks on discharge 4local wound care with a wound VAC which will be changed Sunday. Daughter at the bedside and multiple questions were answered advised no further Xanax at this point Time with Patient: Less than 30
--- NOTE | 2021-10-22 23:49 | P.PN ---
Subjective Progress Note Date: 10/22/21 Principal diagnosis: Left foot transmetatarsal wound dehiscence and cellulitis Patient is a 81-year-old female who was recently admitted at this facility and status post transmetatarsal Amputation of the left foot, subsequently admitted to the hospital with left foot wound dehiscence and secondary cellulitis. Patient was taken to the OR 527 to status post debridement of the wound and deep cultures. On today's evaluation that is 10/22/2021, the patient denies any fever or chills, the patient is more awake and alert today, the patient is breathing comfortably on room air, the patient denies chest pain or cough no abdominal pain and pain to the left foot wound area is currently controlled, Objective - Vital Signs Vital signs: Vital Signs Temp 98.4 F 10/22/21 11:23 Pulse 45 L 10/22/21 11:23 Resp 18 10/22/21 11:23 BP 144/64 10/22/21 11:23 Pulse Ox 100 10/22/21 11:23 FiO2 Intake & Output 10/21/21 10/22/21 10/22/21 18:59 06:59 18:59 Intake Total 1500 1350 Output Total 1900 2150 Balance -400 1350 -2150 Intake: Intake, IV Titration 1000 700 Amount Cefepime 2 gm In Sodium 100 100 Chloride 0.9% 100 ml @ 25 mls/hr IVPB Q12HR [facility] Rx #:[id number] Sodium Chloride 0.9% 1, 900 600 000 ml @ 50 mls/hr IV . Q20H [facility] Rx#:[id number] Oral 500 650 Output: Urine 1900 2150 Other: Voiding Method Indwelling Catheter Indwelling Catheter Indwelling Catheter # Voids 1 # Bowel Movements 2 1 - Exam GENERAL DESCRIPTION: An elderly female lying in bed in no distress RESPIRATORY SYSTEM: Unlabored breathing , decreased breath sounds at bases HEART: S1 S2 regular rate and rhythm , ABDOMEN: Soft , no tenderness EXTREMITIES: Left foot wound is covered with a wound VAC - Labs CBC & Chem 7: 10/22/21 06:50 10/22/21 06:50 Labs: Abnormal Lab Results - Last 24 Hours (Table) 10/21/21 10/21/21 10/22/21 Range/Units 17:37 20:32 06:50 RBC 3.03 L (3.80-5.40) m/uL Hgb 9.1 L (11.4-16.0) gm/dL Hct 29.0 L (34.0-46.0) % Sodium (137-145) mmol/L BUN (7-17) mg/dL Creatinine (0.52-1.04) mg/dL Glucose (74-99) mg/dL POC Glucose (mg/dL) 175 H 194 H (75-99) mg/dL 10/22/21 10/22/21 10/22/21 Range/Units 06:50 07:42 11:12 RBC (3.80-5.40) m/uL Hgb (11.4-16.0) gm/dL Hct (34.0-46.0) % Sodium 135 L (137-145) mmol/L BUN 24 H (7-17) mg/dL Creatinine 1.42 H (0.52-1.04) mg/dL Glucose 216 H (74-99) mg/dL POC Glucose (mg/dL) 224 H 211 H (75-99) mg/dL Microbiology - Last 24 Hours (Table) 10/18/21 06:53 Blood Culture - Preliminary Blood No Growth after 96 hours Assessment and Plan (1) Diabetic infection of left foot Current Visit: Yes Status: Acute Code(s): E11.628 - TYPE 2 DIABETES MELLITUS WITH OTHER SKIN COMPLICATIONS; L08.9 - LOCAL INFECTION OF THE SKIN AND SUBCUTANEOUS TISSUE, UNSP SNOMED Code(s): 96944399 Plan: 1patient with recent history of left foot/toes gangrene in this patient who is status post transmetatarsal amputation now presented to hospital with dehiscence of the wound and concern for secondary cellulitis with significant foul-smelling drainage in this patient status post debridement and cultures are currently pending. Cultures are now growing Pseudomonas MSSA, 2-blood cultures with MSSA, blood cultures repeat has been negative 3patient has shown clinical improvement and was continue with cefepime and Flagyl for another 5 weeks on discharge 4local wound care with a wound VAC which will be changed Sunday. Daughter Mulu at the bedside and multiple questions were answered Time with Patient: Less than 30
[2021-10-23 07:34] LABS: Glucose,Whole Blood 196 mg/dL (75-99)
[2021-10-23] MEDS: FERROUS SULFATE 325 MG TAB PO SCH ×2 (08:12→17:27)
[2021-10-23] MEDS: ATORVASTATIN 10 MG TAB PO SCH (08:12)
[2021-10-23] MEDS: DOCUSATE 100 MG CAP PO SCH (08:12)
[2021-10-23] MEDS: CYANOCOBALAMIN 500 MCG TAB PO SCH (08:12)
[2021-10-23] MEDS: hydrALAZINE HCL 50 MG TAB PO SCH ×2 (08:12→21:49)
[2021-10-23] MEDS: metroNIDAZOLE 500 MG TAB PO SCH ×3 (08:12→21:48)
[2021-10-23] MEDS: RIVAROXABAN 15 MG TAB PO SCH (08:12)
[2021-10-23] MEDS: TAMSULOSIN 0.4 MG CAP.ER.24H PO SCH (08:12)
[2021-10-23] MEDS: CLOPIDOGREL 75 MG TAB PO SCH (08:12)
[2021-10-23] MEDS: INSULIN ASPART (NovoLOG) 100 UNIT/ML VIAL SQ SCH ×4 (08:13→21:49)
[2021-10-23] MEDS: CEFEPIME 2 GM in SODIUM CHLORIDE 0.9% 100 ML IVPB SCH ×2 (08:13→21:49)
[2021-10-23] MEDS: amLODIPine 10 MG TAB PO SCH (08:13)
--- NOTE | 2021-10-23 09:49 | P.PN ---
Subjective Patient is seen in follow-up for chronic kidney disease. Renal function stable this admission. Oral intake poor. Receiving IV fluids. Nonoliguric. Has a Don catheter. Vital signs are stable. General: No acute distress. HEENT: Head exam is unremarkable. LUNGS: Breath sounds decreased. HEART: Rate and Rhythm are regular. ABDOMEN: Soft, no distention. EXTREMITITES: No edema. No drainage. Wound VAC noted. Objective - Vital Signs Vital signs: Vital Signs Temp 98.5 F 10/23/21 05:00 Pulse 57 L 10/23/21 05:00 Resp 16 10/23/21 05:00 BP 146/75 10/23/21 05:00 Pulse Ox 100 10/23/21 05:00 FiO2 Intake & Output 10/22/21 10/23/21 10/23/21 18:59 06:59 18:59 Intake Total 1550 1210 Output Total 2150 Balance -600 1210 Intake: IV 600 400 Sodium Chloride 0.9% 1, 600 400 000 ml @ 50 mls/hr IV . Q20H [facility] Rx#:[id number] Intake, IV Titration 100 Amount Cefepime 2 gm In Sodium 100 Chloride 0.9% 100 ml @ 25 mls/hr IVPB Q12HR [facility] Rx #:[id number] Oral 950 710 Output: Urine 2150 Other: Voiding Method Indwelling Catheter Indwelling Catheter # Voids 2 # Bowel Movements 2 - Labs CBC & Chem 7: 10/22/21 06:50 10/22/21 06:50 Labs: Abnormal Lab Results - Last 24 Hours (Table) 10/22/21 10/22/21 10/22/21 Range/Units 11:12 17:10 20:40 POC Glucose (mg/dL) 211 H 252 H 250 H (75-99) mg/dL 10/23/21 Range/Units 07:33 POC Glucose (mg/dL) 196 H (75-99) mg/dL Microbiology - Last 24 Hours (Table) 10/18/21 06:53 Blood Culture - Preliminary Blood No Growth after 120 hours Assessment and Plan Plan: Assessment: 1. Chronic kidney disease stage IIIB with baseline creatinine in the range of 1.3-1.5 secondary to diabetic kidney disease. GFR at baseline. No hydronephrosis noted on kidney ultrasound. 2. 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 Also noted to have staph aureus bacteremia. On antibiotics per infectious disease. PICC line was placed 10/21/2021. 3. Hypertension with chronic kidney disease. Stable. 4. Diabetes mellitus. 5. Urinary retention. Has Don catheter. On Flomax. 6. Anemia of chronic kidney disease. On Aranesp. Plan: Maintain normal saline at 50 mL an hour. Encouraged oral intake. Continue to monitor renal function and urine output. Avoid IV iron in the setting of acute infection. Repeat BMP 2-3 days postdischarge. Follow up outpatient in 1 week.
[2021-10-23] MEDS: THIAMINE 100 MG TAB PO SCH (11:12)
[2021-10-23] MEDS: COLLAGENASE 250 UNIT/GM OINTMENT 30 GM TUBE TOPICAL SCH (11:12)
[2021-10-23] MEDS: FOLIC ACID 1 MG TAB PO SCH (11:12)
[2021-10-23] MEDS: MULTIVITAMINS, THERA 1 EACH TAB PO SCH (11:12)
[2021-10-23] MEDS: SODIUM CHLORIDE 0.9% 1,000 ML IV SCH (11:13)
[2021-10-23 11:18] LABS: Glucose,Whole Blood 183 mg/dL (75-99)
[2021-10-23] MEDS: ACETAMINOPHEN TAB 325 MG TAB PO PRN (14:33)
--- NOTE | 2021-10-23 15:24 | PN ---
PROGRESS NOTE DATE OF SERVICE: 10/23/2021 This 81-year-old woman who was admitted with left foot transmetatarsal wound dehiscence, cellulitis, is being closely monitored. Patient evaluated for rehab, but the patient was found to be slightly confused. Today's labs are not available. PAST MEDICAL HISTORY: History reviewed. REVIEW OF SYSTEMS: Could not be taken, the patient is confused. CURRENT MEDICATIONS: Reviewed and include: Norvasc, the rest of medication doses noted. PHYSICAL EXAMINATION: Pulse is 48, blood pressure 150/70. Respirations 18. HEENT: Conjunctivae normal. Neck: No JVD. Cardiovascular: S1, S2 muffled. Respirations: Breath sounds diminished in the bases. Scattered rhonchi. Abdomen: Soft. Nervous system diffusely weak. Wound VAC present. LABS: As mentioned earlier. Reviewed. ASSESSMENT: 1. Acute left foot transmetatarsal wound dehiscence and cellulitis. 2. Change in mental status, possibly metabolic encephalopathy. 3. Electrolyte imbalance. 4. Hypertension. 5. Hyperlipidemia. RECOMMENDATIONS AND DISCUSSION: Continue current medications, symptomatic treatment. Otherwise, I would recommend repeat labs today. Otherwise neuro checks. Stop the Xanax and the rest of medications. Continue to monitor. Prognosis guarded. Supplement vitamins and PT/OT evaluation. Possible ECF rehab. Continue the rest of medication. Monitor blood sugars closely. Currently patient receiving Flagyl also. MMODL / IJN: [id number] /
[2021-10-23 15:39] LABS: Basophils # (A) 0.1 k/uL (0-0.2); Basophils % (A) 1 %; Eosinophils # (A) 0.4 k/uL (0-0.7); Eosinophils % (A) 4 %; HCT 29.5 % (34.0-46.0); HGB 8.9 gm/dL (11.4-16.0); Hypochromasia Slight; Lymphocytes # (A) 1.1 k/uL (1.0-4.8); Lymphocytes % (A) 13 %; MCHC 30.1 g/dL (31.0-37.0); MCV 96.1 fL (80.0-100.0); Mean Platelet Volume 7.9; Monocytes # (A) 0.6 k/uL (0-1.0); Monocytes % (A) 7 %; Neutrophils % (A) 72 %; Platelet Count 279 k/uL (150-450); RBC 3.07 m/uL (3.80-5.40); WBC 8.3 k/uL (3.8-10.6)
[2021-10-23 16:00] LABS: ALT 16 U/L (4-34); AST 27 U/L (14-36); African American GFR (CKD) 42 (>60 ml/min/1.73 sqM); Albumin 2.7 g/dL (3.5-5.0); Albumin/Globulin Ratio 0.8; Alkaline Phosphatase 129 U/L (38-126); Anion Gap 6 mmol/L; Blood Urea Nitrogen 33 mg/dL (7-17); Calcium 9.3 mg/dL (8.4-10.2); Carbon Dioxide 24 mmol/L (22-30); Chloride 106 mmol/L (98-107); Globulin 3.4 g/dL; Glucose 182 mg/dL (74-99); Non-African American GFR(CKD) 36 (>60 ml/min/1.73 sqM); Potassium 3.7 mmol/L (3.5-5.1); Sodium 136 mmol/L (137-145); Total Bilirubin 0.3 mg/dL (0.2-1.3); Total Protein 6.1 g/dL (6.3-8.2)
[2021-10-23 17:22] LABS: Glucose,Whole Blood 238 mg/dL (75-99)
[2021-10-23 20:26] LABS: Glucose,Whole Blood 173 mg/dL (75-99)
[2021-10-24 07:06] LABS: Glucose,Whole Blood 159 mg/dL (75-99)
--- NOTE | 2021-10-24 07:30 | P.PN ---
Subjective Progress Note Date: 10/23/21 Principal diagnosis: Left foot transmetatarsal wound dehiscence and cellulitis Patient is a 81-year-old female who was recently admitted at this facility and status post transmetatarsal Amputation of the left foot, subsequently admitted to the hospital with left foot wound dehiscence and secondary cellulitis. Patient was taken to the OR 527 to status post debridement of the wound and deep cultures. On today's evaluation that is 10/23/2021, the patient continues to be afebrile, the patient is slightly sleepy today per the daughter at the bedside, the patient is breathing comfortably on room air, the patient denies chest pain or cough no abdominal pain and pain to the left foot wound area is currently controlled, Objective - Vital Signs Vital signs: Vital Signs Temp 97.9 F 10/23/21 11:17 Pulse 48 L 10/23/21 11:17 Resp 18 10/23/21 11:17 BP 152/70 10/23/21 11:17 Pulse Ox 100 10/23/21 11:17 FiO2 Intake & Output 10/22/21 10/23/21 10/23/21 18:59 06:59 18:59 Intake Total 1550 1210 Output Total 2150 Balance -600 1210 Intake: IV 600 400 Sodium Chloride 0.9% 1, 600 400 000 ml @ 50 mls/hr IV . Q20H [facility] Rx#:[id number] Intake, IV Titration 100 Amount Cefepime 2 gm In Sodium 100 Chloride 0.9% 100 ml @ 25 mls/hr IVPB Q12HR [facility] Rx #:[id number] Oral 950 710 Output: Urine 2150 Other: Voiding Method Indwelling Catheter Indwelling Catheter Indwelling Catheter # Voids 2 # Bowel Movements 2 - Exam GENERAL DESCRIPTION: An elderly female lying in bed in no distress RESPIRATORY SYSTEM: Unlabored breathing , decreased breath sounds at bases HEART: S1 S2 regular rate and rhythm , ABDOMEN: Soft , no tenderness EXTREMITIES: Left foot wound is covered with a wound VAC - Labs CBC & Chem 7: 10/23/21 15:20 10/23/21 15:20 Labs: Abnormal Lab Results - Last 24 Hours (Table) 10/22/21 10/22/21 10/23/21 Range/Units 17:10 20:40 07:33 POC Glucose (mg/dL) 252 H 250 H 196 H (75-99) mg/dL 10/23/21 Range/Units 11:16 POC Glucose (mg/dL) 183 H (75-99) mg/dL Microbiology - Last 24 Hours (Table) 10/18/21 06:53 Blood Culture - Preliminary Blood No Growth after 120 hours Assessment and Plan (1) Diabetic infection of left foot Current Visit: Yes Status: Acute Code(s): E11.628 - TYPE 2 DIABETES MELLITUS WITH OTHER SKIN COMPLICATIONS; L08.9 - LOCAL INFECTION OF THE SKIN AND SUBCUTANEOUS TISSUE, UNSP SNOMED Code(s): 28502497 Plan: 1patient with recent history of left foot/toes gangrene in this patient who is status post transmetatarsal amputation now presented to hospital with dehiscence of the wound and concern for secondary cellulitis with significant foul-smelling drainage in this patient status post debridement and cultures are currently pending. Cultures are now growing Pseudomonas MSSA, 2-blood cultures with MSSA, blood cultures repeat has been negative 3patient has shown overall clinical improvement and plan is to continue with cefepime and Flagyl for another 5 weeks on discharge 4local wound care with a wound VAC which will be changed Sunday. Time with Patient: Less than 30
[2021-10-24] MEDS: INSULIN ASPART (NovoLOG) 100 UNIT/ML VIAL SQ SCH ×2 (07:37→12:59)
[2021-10-24] MEDS: hydrALAZINE HCL 50 MG TAB PO SCH (07:38)
[2021-10-24] MEDS: DOCUSATE 100 MG CAP PO SCH (07:38)
[2021-10-24] MEDS: CYANOCOBALAMIN 500 MCG TAB PO SCH (07:38)
[2021-10-24] MEDS: CEFEPIME 2 GM in SODIUM CHLORIDE 0.9% 100 ML IVPB SCH (07:39)
[2021-10-24] MEDS: TAMSULOSIN 0.4 MG CAP.ER.24H PO SCH (07:39)
[2021-10-24] MEDS: ATORVASTATIN 10 MG TAB PO SCH (07:39)
[2021-10-24] MEDS: FERROUS SULFATE 325 MG TAB PO SCH (07:39)
[2021-10-24] MEDS: amLODIPine 10 MG TAB PO SCH (07:39)
[2021-10-24] MEDS: CLOPIDOGREL 75 MG TAB PO SCH (07:39)
[2021-10-24] MEDS: RIVAROXABAN 15 MG TAB PO SCH (07:40)
[2021-10-24] MEDS: metroNIDAZOLE 500 MG TAB PO SCH (07:40)
[2021-10-24 08:49] LABS: Basophils # (A) 0.03 X 10*3/uL (0.00-0.10); Basophils % (A) 0.4 %; Eosinophils # (A) 0.43 X 10*3/uL (0.04-0.35); Eosinophils % (A) 5.3 %; HCT 28.3 % (37.2-46.3); HGB 8.9 g/dL (12.0-15.0); Immature Grans, Automated 2.5 %; Lymphocytes # (A) 1.12 X 10*3/uL (0.90-5.00); Lymphocytes % (A) 13.7 %; MCH 29.4 pg (27.0-32.0); MCHC 31.4 g/dL (32.0-37.0); MCV 93.4 fL (80.0-97.0); Mean Platelet Volume 9.9 fL (9.5-12.2); Monocytes # (A) 0.72 X 10*3/uL (0.20-1.00); Monocytes % (A) 8.8 %; NRBC Per 100 WBC 0 /100 WBCS (0.0-0.0); Neutrophils # (A) 5.66 X 10*3/uL (1.80-7.70); Neutrophils % (A) 69.3 %; Platelet Count 265 X 10*3/uL (140-440); RBC 3.03 X 10*6/uL (4.10-5.20); RDW 15.4 % (11.5-14.5); WBC 8.16 X 10*3/uL (4.50-10.00)
[2021-10-24 09:02] LABS: ALT 17 U/L (8-44); AST 21 U/L (13-35); African American GFR (CKD) 44.1 (60.0-200.0); Albumin/Globulin Ratio 1.01 (1.60-3.17); Alkaline Phosphatase 110 U/L (41-126); BUN/Creat Ratio 23.86 Ratio (12.00-20.00); Blood Urea Nitrogen 31.5 mg/dL (9.0-27.0); Calcium 9.4 mg/dL (8.7-10.3); Carbon Dioxide 19.9 mmol/L (20.0-27.5); Chloride 107 mmol/L (96-109); Glucose 139 mg/dL (70-110); Magnesium 1.8 mg/dL (1.5-2.4); Potassium 3.8 mmol/L (3.5-5.5); Sodium 138 mmol/L (135-145); Total Bilirubin <0.15 mg/dL (0.30-1.20); Total Protein 5.9 g/dL (6.2-8.2)
[2021-10-24] MEDS ORDERED: POTASSIUM CHLORIDE ER 20 MEQ TAB.ER PO STA (10:06)
--- NOTE | 2021-10-24 10:06 | P.PN ---
Subjective Patient is seen in follow-up for chronic kidney disease. Renal function stable this admission. Oral intake improved. Receiving IV fluids. Nonoliguric. Don catheter had to be reinserted due to persistent retention. Daughter present at bedside. Vital signs are stable. General: No acute distress. HEENT: Head exam is unremarkable. LUNGS: Breath sounds decreased. HEART: Rate and Rhythm are regular. ABDOMEN: Soft, no distention. EXTREMITITES: No edema. No drainage. Wound VAC noted. Objective - Vital Signs Vital signs: Vital Signs Temp 98.4 F 10/24/21 04:37 Pulse 62 10/24/21 07:50 Resp 16 10/24/21 04:37 BP 148/94 10/24/21 07:50 Pulse Ox 100 10/24/21 04:37 FiO2 Intake & Output 10/23/21 10/24/21 10/24/21 18:59 06:59 18:59 Intake Total 400 600 Output Total 400 750 Balance 0 -150 Intake: Intake, IV Titration 600 Amount Cefepime 2 gm In Sodium 100 Chloride 0.9% 100 ml @ 25 mls/hr IVPB Q12HR [facility] Rx #:[id number] Sodium Chloride 0.9% 1, 500 000 ml @ 50 mls/hr IV . Q20H [facility] Rx#:[id number] Oral 400 Output: Urine 750 Post Void Residual 400 Other: Voiding Method Indwelling Catheter Indwelling Catheter - Labs CBC & Chem 7: 10/24/21 05:55 10/24/21 05:55 Labs: Abnormal Lab Results - Last 24 Hours (Table) 10/23/21 10/23/21 10/23/21 Range/Units 11:16 15:20 15:20 RBC 3.07 L (3.80-5.40) m/uL Hgb 8.9 L (11.4-16.0) gm/dL Hct 29.5 L (34.0-46.0) % MCHC 30.1 L (31.0-37.0) g/dL RDW (11.5-14.5) % Immature Gran # (0.00-0.04) X 10*3/uL Eosinophils # (0.04-0.35) X 10*3/uL Sodium 136 L (137-145) mmol/L Carbon Dioxide (20.0-27.5) mmol/L BUN 33 H (7-17) mg/dL Creatinine 1.38 H (0.52-1.04) mg/dL Est GFR (CKD-EPI)AfAm (60.0-200.0) Est GFR (CKD-EPI)NonAf (60.0-200.0) BUN/Creatinine Ratio (12.00-20.00) Ratio Glucose 182 H (74-99) mg/dL POC Glucose (mg/dL) 183 H (75-99) mg/dL Total Bilirubin (0.30-1.20) mg/dL Alkaline Phosphatase 129 H (38-126) U/L Total Protein 6.1 L (6.3-8.2) g/dL Albumin 2.7 L (3.5-5.0) g/dL Albumin/Globulin Ratio (1.60-3.17) g/dL 10/23/21 10/23/21 10/24/21 Range/Units 17:21 20:24 05:55 RBC (3.80-5.40) m/uL Hgb (11.4-16.0) gm/dL Hct (34.0-46.0) % MCHC (31.0-37.0) g/dL RDW (11.5-14.5) % Immature Gran # (0.00-0.04) X 10*3/uL Eosinophils # (0.04-0.35) X 10*3/uL Sodium (137-145) mmol/L Carbon Dioxide 19.9 L (20.0-27.5) mmol/L BUN 31.5 H (7-17) mg/dL Creatinine (0.52-1.04) mg/dL Est GFR (CKD-EPI)AfAm 44.1 L (60.0-200.0) Est GFR (CKD-EPI)NonAf 38.0 L (60.0-200.0) BUN/Creatinine Ratio 23.86 H (12.00-20.00) Ratio Glucose 139 H (74-99) mg/dL POC Glucose (mg/dL) 238 H 173 H (75-99) mg/dL Total Bilirubin <0.15 L (0.30-1.20) mg/dL Alkaline Phosphatase (38-126) U/L Total Protein 5.9 L (6.3-8.2) g/dL Albumin 3.0 L (3.5-5.0) g/dL Albumin/Globulin Ratio 1.01 L (1.60-3.17) g/dL 10/24/21 10/24/21 Range/Units 05:55 07:04 RBC 3.03 L (3.80-5.40) m/uL Hgb 8.9 L (11.4-16.0) gm/dL Hct 28.3 L (34.0-46.0) % MCHC 31.4 L (31.0-37.0) g/dL RDW 15.4 H (11.5-14.5) % Immature Gran # 0.20 H (0.00-0.04) X 10*3/uL Eosinophils # 0.43 H (0.04-0.35) X 10*3/uL Sodium (137-145) mmol/L Carbon Dioxide (20.0-27.5) mmol/L BUN (7-17) mg/dL Creatinine (0.52-1.04) mg/dL Est GFR (CKD-EPI)AfAm (60.0-200.0) Est GFR (CKD-EPI)NonAf (60.0-200.0) BUN/Creatinine Ratio (12.00-20.00) Ratio Glucose (74-99) mg/dL POC Glucose (mg/dL) 159 H (75-99) mg/dL Total Bilirubin (0.30-1.20) mg/dL Alkaline Phosphatase (38-126) U/L Total Protein (6.3-8.2) g/dL Albumin (3.5-5.0) g/dL Albumin/Globulin Ratio (1.60-3.17) g/dL Microbiology - Last 24 Hours (Table) 10/18/21 06:53 Blood Culture - Final Blood No Growth after 144 hours Assessment and Plan Plan: Assessment: 1. Chronic kidney disease stage IIIB with baseline creatinine in the range of 1.3-1.5 secondary to diabetic kidney disease. GFR at baseline. No hydronephrosis noted on kidney ultrasound. 2. 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 Also noted to have staph aureus bacteremia. On antibiotics per infectious disease. PICC line was placed 10/21/2021. 3. Hypertension with chronic kidney disease. Stable. 4. Diabetes mellitus. 5. Urinary retention. Don catheter reinserted due to persistent retention. On Flomax. Voiding trial will be done at rehab facility. Also consider urology eval outpatient. This was discussed with the patient's daughter 6. Anemia of chronic kidney disease. On Aranesp. 7. Metabolic acidosis secondary to chronic kidney disease and IV fluids. Plan: Hep-Lock IV fluids. Encouraged oral intake. Continue to monitor renal function and urine output. Avoid IV iron in the setting of acute infection. Add oral bicarb. Increase frequency of hydralazine to 50 mg 3 times daily. Hold for systolic blood pressure less than 125. Repeat BMP 2-3 days postdischarge. Follow up outpatient in 1 week. Plan for discharge to rehab today.
[2021-10-24 11:08] LABS: Glucose,Whole Blood 332 mg/dL (75-99)
[2021-10-24] MEDS: COLLAGENASE 250 UNIT/GM OINTMENT 30 GM TUBE TOPICAL SCH (11:34)
[2021-10-24 12:05] VITALS: BP 125/52; PULSE 57; RESP 12; TEMP 97.4
[2021-10-24] MEDS: FOLIC ACID 1 MG TAB PO SCH (12:57)
[2021-10-24] MEDS: THIAMINE 100 MG TAB PO SCH (12:57)
[2021-10-24] MEDS: MULTIVITAMINS, THERA 1 EACH TAB PO SCH (12:59)
--- NOTE | 2021-10-24 14:21 | P.DS ---
Providers Date of admission: 10/13/21 23:36 Expected date of discharge: 10/24/21 Attending physician: Nash Jain MD Consults: 10/13/21 23:36 Consult Physician Urgent Consulting Provider: Jenniffer Don Consult Reason/Comments: Diabetic left foot Do you want consulting provider notified?: Already Contacted 10/13/21 23:37 Consult Physician Routine Consulting Provider: Jamila Campos Consult Reason/Comments: Diabetic left foot Do you want consulting provider notified?: Already Contacted 10/14/21 13:15 Consult Physician Routine Consulting Provider: Faviola Robert Consult Reason/Comments: medical management Do you want consulting provider notified?: Yes 10/14/21 16:56 Consult Physician Routine Consulting Provider: Jamila Campos Consult Reason/Comments: infected wounds, recent gangrene amp toes Do you want consulting provider notified?: Yes 10/15/21 10:10 Consult Physician Urgent Consulting Provider: Jono Mcclellan Consult Reason/Comments: Retention Do you want consulting provider notified?: Yes 10/17/21 13:39 Consult Physician Routine Consulting Provider: Jamila Campos Consult Reason/Comments: blood cultures Do you want consulting provider notified?: Yes 10/20/21 12:22 Consult Physician Stat Consulting Provider: Aileen Gauthier Consult Reason/Comments: clearance for PICC line for discharge 10/20. Do you want consulting provider notified?: Yes Primary care physician: Megha Nolen Hospital Course: Final diagnosis Acute left foot transmetatarsal wound dehiscence and cellulitis Left lower extremity wound, status post incision and drainage altered mental status possibly secondary to metabolic encephalopathy and electrolyte abnormality and possible component of hospital acquired delirium hyponatremia, improved Hypokalemia, improved hypomagnesemia, improved Leukocytosis with features of sepsis, present on admission most likely secondary to infected diabetic left foot wound with surrounding cellulitis Chronic congestive heart failure with preserved EF, most recent EF was 50-55% in June 2021 Permanent atrial fibrillation Urinary retention Hypertension Hyperlipidemia Diabetes mellitus type 2 GI prophylaxis DVT prophylaxis, on xarelto No code Discharge disposition Patient is being discharged in a stable condition with guarded prognosis to [facility] for continued PT/OT therapy. Patient will follow-up with Dr. Nolen in the outpatient setting upon discharge. Patient is to follow-up with vascular surgery, the wound care center, and nephrology in 1-2 weeks outpatient as scheduled. Patient will continue on IV cefepime 2 g twice a day for the next 5 weeks along with oral Flagyl 500 mg 3 times a day for the next 5 weeks. Total time taken is greater than 35 minutes. Hospital course This is a 81-year-old female who was recently admitted with left foot wound infection and transmetatarsal wound dehiscence with cellulitis and underwent I&D with vascular surgery and patient had wound VAC placed. Patient will continue with local wound care and follow-up with Dr. Don along with wound care center on discharge. Patient was also being followed closely by infectious disease and received a PICC line and will continue on IV cefepime along with oral Flagyl for the next 5 weeks and close outpatient follow-up at the wound center. Patient also seen and evaluated by nephrology and had electrolyte abnormalities and chronic kidney disease and will follow-up in one week. Patient with urinary retention requiring indwelling Don catheter recommend to continue and was started on Flomax and will possibly need a trial void and possible urological evaluation in the outpatient setting. Patient with some confusion and continued weakness has been accepted and authorization obtained from insurance to ECF and family is agreeable. Recommend continued Accu-Cheks before meals and at bedtime and use sliding scale and long-acting. Encourage oral intake and patient has not been receiving long-acting due to decreased oral intake. Currently no reports of chest pain, shortness of breath, or palpitations. Patient is afebrile. No reports of nausea or vomiting and patient is tolerating diet. Patient will be going to [facility] today. Guarded prognosis. Physical exam: Gen: This is a 81-year-old female awake, alert and oriented 2, well-developed, well-nourished. HEENT: Head is atraumatic, normocephalic. Pupils equal, round. Sclerae is anicteric. NECK: Supple. No JVD. No lymphadenopathy. No thyromegaly. LUNGS: Diminished breath sounds bilaterally with no wheezing or rhonchi noted. No intercostal retractions. HEART: Regular rate and rhythm. No murmur. ABDOMEN: Soft. Bowel sounds are present. No masses. No tenderness. EXTREMITIES: No pedal edema. No calf tenderness. Left foot wound VAC NEUROLOGICAL: Patient is awake, alert and oriented x2. Diffusely weak Please refer to medication reconciliation sheet for a list of medications. The impression and plan of care has been dictated by Mildred Swift, Nurse Practitioner as directed. Dr. Wil MD I have performed a history and examination and MDM of this patient, discussed the same with the dictator, and agree with the dictator's assessment and plan as written ,documented as a scribe. Based on total visit time, I have performed more than 50% of the visit. Patient Condition at Discharge: Fair Plan - Discharge Summary Discharge Rx Participant: No New Discharge Prescriptions: New hydrALAZINE HCL [Apresoline] 50 mg PO TID tab Docusate [Colace] 100 mg PO DAILY cap Folic Acid 1 mg PO DAILY@1200 tab Ferrous Sulfate [Iron (65 MG Elemental)] 325 mg PO BID-W/MEALS tab Cefepime [Maxipime] 2 gm IVPB Q12HR 35 Days #70 each polyethylene glycoL 3350 [Miralax] 17 gm PO DAILY PRN packet PRN Reason: Constipation Multivitamins, Thera [Multivitamin (formulary)] 1 each PO DAILY@1200 tab amLODIPine [Norvasc] 10 mg PO DAILY tab Collagenase [Santyl Ointment] 1 applic TOPICAL DAILY each Acetaminophen Tab [Tylenol] 650 mg PO Q6HR PRN tab PRN Reason: Mild Pain Or Fever > 100.5 Thiamine [Vitamin B-1] 100 mg PO DAILY@1200 tab Darbepoetin Osei [Aranesp] 40 mcg SQ Q7D each metroNIDAZOLE [Flagyl] 500 mg PO TID 35 Days #75 tab Tamsulosin [Flomax] 0.4 mg PO PC-BRKFST cap INSULIN ASPART (NovoLOG) [NovoLOG (formulary)] 0 unit SQ ACHS each Sodium Bicarbonate Tab 650 mg PO DAILY tab Continue Rivaroxaban [Xarelto] 15 mg PO DAILY Clopidogrel [Plavix] 75 mg PO DAILY 30 Days #30 tab Insulin Glargine [Lantus Vial] 12 unit SQ HS Simvastatin [Zocor] 20 mg PO DAILY Cyanocobalamin [Vitamin B-12] 500 mcg PO DAILY Discontinued Furosemide [Lasix] 20 mg PO DAILY hydrALAZINE HCL [Apresoline] 50 mg PO TID Insulin Lispro [humaLOG Kwikpen] 6 unit SQ AC-TID Insulin Lispro [Insulin Lispro Kwikpen U-100] See Protocol SQ AC-TID lisinopriL [Zestril] 5 mg PO DAILY Discharge Medication List Cyanocobalamin [Vitamin B-12] 500 mcg PO DAILY 06/28/21 [History] Rivaroxaban [Xarelto] 15 mg PO DAILY 06/28/21 [History] Simvastatin [Zocor] 20 mg PO DAILY 06/28/21 [History] Clopidogrel [Plavix] 75 mg PO DAILY 30 Days #30 tab 07/25/21 [Rx] Insulin Glargine [Lantus Vial] 12 unit SQ HS 10/14/21 [History] Acetaminophen Tab [Tylenol] 650 mg PO Q6HR PRN tab 10/24/21 [Rx] Cefepime [Maxipime] 2 gm IVPB Q12HR 35 Days #70 each 10/24/21 [Rx] Collagenase [Santyl Ointment] 1 applic TOPICAL DAILY each 10/24/21 [Rx] Darbepoetin Osei [Aranesp] 40 mcg SQ Q7D each 10/24/21 [Rx] Docusate [Colace] 100 mg PO DAILY cap 10/24/21 [Rx] Ferrous Sulfate [Iron (65 MG Elemental)] 325 mg PO BID-W/MEALS tab 10/24/21 [Rx] Folic Acid 1 mg PO DAILY@1200 tab 10/24/21 [Rx] INSULIN ASPART (NovoLOG) [NovoLOG (formulary)] 0 unit SQ ACHS each 10/24/21 [Rx] Multivitamins, Thera [Multivitamin (formulary)] 1 each PO DAILY@1200 tab 10/24/21 [Rx] Sodium Bicarbonate Tab 650 mg PO DAILY tab 10/24/21 [Rx] Tamsulosin [Flomax] 0.4 mg PO PC-BRKFST cap 10/24/21 [Rx] Thiamine [Vitamin B-1] 100 mg PO DAILY@1200 tab 10/24/21 [Rx] amLODIPine [Norvasc] 10 mg PO DAILY tab 10/24/21 [Rx] hydrALAZINE HCL [Apresoline] 50 mg PO TID tab 10/24/21 [Rx] metroNIDAZOLE [Flagyl] 500 mg PO TID 35 Days #75 tab 10/24/21 [Rx] polyethylene glycoL 3350 [Miralax] 17 gm PO DAILY PRN packet 10/24/21 [Rx] Follow up Appointment(s)/Referral(s): Jenniffer Don DO [STAFF PHYSICIAN] - 2 Weeks Megha Nolen DO [Primary Care Provider] - 1-2 days [facility] [NON-STAFF] - 1 Week Activity/Diet/Wound Care/Special Instructions: Patient is going to [facility] Activity as tolerated wound vac to left foot, change Sunday, Sunday, Sunday Follow up with wound care in 1 week Non-weightbearing on left foot Patient is to continue with oral and IV antibiotics per infectious disease recommendations for another 5 weeks Continue with local wound care and follow-up with vascular surgery outpatient She needs to follow-up at the wound care center in 1 week Continue heart healthy diabetic diet Follow-up outpatient with nephrology in one week Recommend trial voiding in the outpatient setting and may need urology follow-up as patient continued to retain requiring indwelling Don catheter Continue to monitor blood sugars before meals and at bedtime and use sliding scale and long-acting NovoLog sliding scale 0-150 equals 0 units 151-200 equals 2 units 201-250 equals 4 units 251-300 equals 6 units 301-350 equals 8 units 351-400 equals 10 units Please notify provider if blood sugar is 400 or above Discharge Disposition: TRANSFER TO SNF/F
[2021-10-24] MEDS ORDERED: hydrALAZINE HCL 50 MG TAB PO SCH (16:00)
[2021-10-25] MEDS ORDERED: SODIUM BICARBONATE TAB 650 MG TAB PO SCH (09:00)
== END 2021-10-24 16:00 | DRG 503 ==
LOC: EC 15:24 → 4SSUR 23:36 → 5NMEDONC 10-14 10:21
PROVIDERS: ADMIT Internal Medicine; ATTEND Internal Medicine
PROC: 0QBP0ZZ Excision of Left Metatarsal, Open Approach (ICD-10-PCS; principal; 2021-10-14 10:33)
PROC: 02HV33Z Insertion of Infusion Device into Superior Vena Cava, Percutaneous Approach (ICD-10-PCS; 2021-10-21)
DX: T87.44 Infection of amputation stump, left lower extremity (principal); A41.01 Sepsis due to Methicillin susceptible Staphylococcus aureus; G93.41 Metabolic encephalopathy; L03.116 Cellulitis of left lower limb; I45.2 Bifascicular block; I50.32 Chronic diastolic (congestive) heart failure; I13.0 Hypertensive heart and chronic kidney disease with heart failure and stage 1 through stage 4 chronic kidney disease, or unspecified chronic kidney disease; I48.21 Permanent atrial fibrillation; E87.2 Acidosis; E87.1 Hypo-osmolality and hyponatremia; E11.52 Type 2 diabetes mellitus with diabetic peripheral angiopathy with gangrene; I96 Gangrene, not elsewhere classified; T87.81 Dehiscence of amputation stump; D63.1 Anemia in chronic kidney disease; E11.22 Type 2 diabetes mellitus with diabetic chronic kidney disease; E11.40 Type 2 diabetes mellitus with diabetic neuropathy, unspecified; E11.628 Type 2 diabetes mellitus with other skin complications; T87.54 Necrosis of amputation stump, left lower extremity; N18.32 Chronic kidney disease, stage 3b; Z79.4 Long term (current) use of insulin; Z89.432 Acquired absence of left foot; B96.5 Pseudomonas (aeruginosa) (mallei) (pseudomallei) as the cause of diseases classified elsewhere; B95.1 Streptococcus, group B, as the cause of diseases classified elsewhere; I25.10 Atherosclerotic heart disease of native coronary artery without angina pectoris; N39.41 Urge incontinence; E87.6 Hypokalemia; E83.42 Hypomagnesemia; R33.9 Retention of urine, unspecified; R35.1 Nocturia; E78.5 Hyperlipidemia, unspecified; I87.2 Venous insufficiency (chronic) (peripheral); Z79.02 Long term (current) use of antithrombotics/antiplatelets; Z79.01 Long term (current) use of anticoagulants; Z79.899 Other long term (current) drug therapy; Z90.49 Acquired absence of other specified parts of digestive tract; Z87.19 Personal history of other diseases of the digestive system; Z87.440 Personal history of urinary (tract) infections; Z87.2 Personal history of diseases of the skin and subcutaneous tissue; Z98.890 Other specified postprocedural states; Z88.6 Allergy status to analgesic agent; Y83.5 Amputation of limb(s) as the cause of abnormal reaction of the patient, or of later complication, without mention of misadventure at the time of the procedure; Z80.9 Family history of malignant neoplasm, unspecified
CPT/HCPCS: 36415; 36573; 76770; 80048; 80053; 80202; 81001; 82550; 82565; 83605; 83735; 84145; 85025; 85610; 85652; 85730; 86140; 87040; 87070; 87075; 87077; 87086; 87186; 87205; 93005; 96365; 96366; 99285

== ENCOUNTER 2021-12-02 18:17 | Emergency (ER) | payer MEDICARE ==
[2021-12-02 18:23] VITALS: BP 114/58; PULSE 63; RESP 20; TEMP 98.1
--- NOTE | 2021-12-02 19:36 | ED ---
Recheck HPI - General Chief Complaint: Recheck/Abnormal Lab/Rx Stated Complaint: abd labs Time Seen by Provider: 12/02/21 19:22 Source: patient, family, RN notes reviewed, old records reviewed Mode of arrival: ambulatory Limitations: no limitations - History of Present Illness Initial Comments: This is a nontoxic-appearing 81-year-old female that presents to the emergency room with 2 family members after being called by primary care doctor's office fo r abnormal lab results. Patient was told to come to the emergency room for a PTH after elevated calcium level. Patient is currently eating [employer] and has no complaints. Denies any nausea, vomiting or diarrhea. States that she has had a couple of days of constipation and has been taking milk of magnesia and prune juice and did have a bowel movement today. MD Complaint: abnormal lab -: days(s) (1) Returns Today for: Called Because of Abnormal Lab/Test Symptoms Since Prior Visit: no new symptoms Context: called for abnormal lab result Associated Symptoms: none - Related Data Home Medications Medication Instructions Recorded Confirmed Cyanocobalamin [Vitamin B-12] 500 mcg PO DAILY 06/28/21 12/02/21 Rivaroxaban [Xarelto] 15 mg PO DAILY 06/28/21 12/02/21 Simvastatin [Zocor] 20 mg PO DAILY 06/28/21 12/02/21 Insulin Glargine [Lantus Vial] 12 unit SQ HS 10/14/21 12/02/21 Amoxic-Pot Clav 875-125Mg 1 tab PO BID 12/02/21 12/02/21 [Augmentin 875-125] Ciprofloxacin HCl [Cipro] 500 mg PO DIRECTED 12/02/21 12/02/21 Docusate [Colace] 100 mg PO DAILY PRN 12/02/21 12/02/21 Insulin Lispro [humaLOG Kwikpen] See Protocol SQ TID-W/MEALS 12/02/21 12/02/21 Multivitamins, Thera [Multivitamin 1 tab PO DAILY 12/02/21 12/02/21 (formulary)] amLODIPine [Norvasc] 5 mg PO DAILY 12/02/21 12/02/21 Previous Rx's Medication Instructions Recorded Clopidogrel [Plavix] 75 mg PO DAILY 30 Days #30 tab 07/25/21 Acetaminophen Tab [Tylenol] 650 mg PO Q6HR PRN tab 10/24/21 hydrALAZINE HCL [Apresoline] 50 mg PO TID tab 10/24/21 polyethylene glycoL 3350 [Miralax] 17 gm PO DAILY PRN packet 10/24/21 Allergies Allergy/AdvReac Type Severity Reaction Status Date / Time aspirin Allergy Anaphylaxis Verified 12/02/21 21:57 Review of Systems ROS Statement: Those systems with pertinent positive or pertinent negative responses have been documented in the HPI. ROS Other: All systems not noted in ROS Statement are negative. Past Medical History Past Medical History: Atrial Fibrillation, Diabetes Mellitus, Hypertension Additional Past Medical History / Comment(s): wound rt foot, wound to left pinkey, wound right abdominal wall History of Any Multi-Drug Resistant Organisms: None Reported Past Surgical History: Cholecystectomy Additional Past Surgical History / Comment(s): hematoma removal abdomen Past Anesthesia/Blood Transfusion Reactions: No Reported Reaction Past Psychological History: No Psychological Hx Reported Smoking Status: Never smoker Past Alcohol Use History: None Reported Past Drug Use History: None Reported - Past Family History Sister(s) Family Medical History: Cancer Brother(s) Family Medical History: Cancer General Exam Limitations: no limitations General appearance: alert, in no apparent distress Head exam: Present: atraumatic Eye exam: Absent: scleral icterus, conjunctival injection, periorbital swelling Neck exam: Absent: tenderness, meningismus Respiratory exam: Absent: respiratory distress, accessory muscle use Cardiovascular Exam: Present: regular rate Neurological exam: Present: alert, oriented X3 Psychiatric exam: Present: normal affect, normal mood Skin exam: Present: warm, dry. Absent: cyanosis, diaphoretic Course Vital Signs 12/02/21 18:21 Temperature 98.1 F Pulse Rate 63 Respiratory 20 Rate Blood Pressure 114/58 O2 Sat by Pulse 99 Oximetry Medical Decision Making - Medical Decision Making This is a well-appearing 81-year-old female sent by her primary care doctor for evaluation of hypercalcemia. Patient has no complaints and is eating [employer] on arrival. She states that she has had constipation and was taking milk of magnesia and prune juce and did have bowel movement today. Patient was given 500 mL of normal saline. Calcium level 11.6 with an ionized calcium 5.8, likely related to the use of milk of magnesia. Parathyroid hormone test was sent. Patient is asymptomatic and has no other complaints. Vital signs are stable. She was advised to stop using milk of magnesia. Follow-up with her primary care doctor on Sunday and return to the emergency room with any new or concerning symptoms. Patient and family member are agreeable to this plan of care. Case discussed with Dr. Holley. - Lab Data Result diagrams: 12/02/21 20:28 Lab Results 12/02/21 12/02/21 Range/Units 20:28 21:36 Sodium 134 L (137-145) mmol/L Potassium 4.3 (3.5-5.1) mmol/L Chloride 101 (98-107) mmol/L Carbon Dioxide 23 (22-30) mmol/L Anion Gap 10 mmol/L BUN 29 H (7-17) mg/dL Creatinine 1.58 H (0.52-1.04) mg/dL Est GFR (CKD-EPI)AfAm 36 (>60 ml/min/1.73 sqM) Est GFR (CKD-EPI)NonAf 31 (>60 ml/min/1.73 sqM) Glucose 208 H (74-99) mg/dL Calcium 11.6 H (8.4-10.2) mg/dL Ionized Calcium Salas Cancelled 5.8 H Magnesium 1.6 (1.6-2.3) mg/dL Total Bilirubin 0.7 (0.2-1.3) mg/dL AST 23 (14-36) U/L ALT 13 (4-34) U/L Alkaline Phosphatase 98 (38-126) U/L Total Protein 7.9 (6.3-8.2) g/dL Albumin 3.9 (3.5-5.0) g/dL Lipase 25 (23-300) U/L Disposition Clinical Impression: Hypercalcemia Disposition: HOME SELF-CARE Condition: Good Instructions (If sedation given, give patient instructions): Hypercalcemia (ED) Additional Instructions: Return to the emergency room with any new or concerning symptoms. Stop using milk of magnesia. Follow-up with your primary care doctor on Sunday. Is patient prescribed a controlled substance at d/c from ED?: No Referrals: Megha Oneal DO [Primary Care Provider] - 1-2 days Time of Disposition: 23:20
[2021-12-02] MEDS ORDERED: SODIUM CHLORIDE 0.9% 500 ML 500 ML IV ONE (19:46)
[2021-12-02 21:12] LABS: Albumin 3.9 g/dL (3.5-5.0); Calcium 11.6 mg/dL (8.4-10.2); Magnesium 1.6 mg/dL (1.6-2.3); Potassium 4.3 mmol/L (3.5-5.1); Total Bilirubin 0.7 mg/dL (0.2-1.3); Total Protein 7.9 g/dL (6.3-8.2)
== END 2021-12-02 23:38 | disposition home or self-care (01) ==
LOC: EC 18:17
DX: E83.52 Hypercalcemia (principal); E11.9 Type 2 diabetes mellitus without complications; I10 Essential (primary) hypertension; I48.91 Unspecified atrial fibrillation; Z88.6 Allergy status to analgesic agent; Z79.899 Other long term (current) drug therapy
CPT/HCPCS: 36415; 80053; 82330; 83690; 83735; 83970; 99283

== ENCOUNTER → 2021-12-07 | Outpatient (CLI) | payer MEDICARE ==
[~2021-12-07] MED LIST: SODIUM CHLORIDE 0.9% 500 ML 500 ML in EMPTY BAG 1 BAG IV PRN; ZOLEDRONIC ACID 4 MG in SODIUM CHLORIDE 0.9% 100 ML IV NR
[2021-12-07 14:04] VITALS: BP 152/80; PULSE 71; RESP 16; TEMP 98
== END ==
LOC: PROCWHC3 13:13
PROVIDERS: ATTEND Internal Medicine
DX: E83.52 Hypercalcemia (principal)
CPT/HCPCS: 96365; J3489

== ENCOUNTER → 2021-12-09 | Outpatient (CLI) | payer MEDICARE ==
[2021-12-10 00:06] LABS: C Reactive Protein 3.2 mg/dL (0.00-0.80)
[2021-12-12 09:35] LABS: Free Kappa Lt Chain Qnt, Serum 9.42 mg/dL (0.33-1.94); Free Lambda Lt Chain Qnt, Seru 7.61 mg/dL (0.57-2.63)
[2021-12-12 13:30] LABS: Angiotensin-1 Converting Enz. 135 U/L (8-52)
[2021-12-12 20:37] LABS: Vitamin D, 1, 25-Dihydroxy 64 pg/mL (20 - 79)
== END | disposition home or self-care (01) ==
LOC: LABWHC1 14:44
PROVIDERS: ATTEND Internal Medicine
DX: E83.52 Hypercalcemia (principal); N18.9 Chronic kidney disease, unspecified
CPT/HCPCS: 36415; 82164; 82306; 82652; 83883; 83970; 86140; 86334; 86335

== ENCOUNTER → 2021-12-14 | Outpatient (CLI) | payer MEDICARE ==
--- NOTE | 2021-12-14 13:46 | XR ---
EXAMINATION TYPE: XR chest 2V DATE OF EXAM: 12/14/2021 1:20 PM COMPARISON: Chest radiographs from 07/17/2021. TECHNIQUE: XR chest 2V Frontal and lateral views of the chest. CLINICAL INDICATION:Female, 81 years old with history of abnormal labs; FINDINGS: Lungs/Pleura: There is no evidence of pleural effusion, focal consolidation, or pneumothorax. Pulmonary vascularity: Unremarkable. Heart/mediastinum: Cardiomediastinal silhouette is unremarkable. Atherosclerotic calcifications are seen in the aorta. Musculoskeletal: Multiple level degenerative disc disease changes seen throughout the spine. No acute osseous antibodies. IMPRESSION: No acute cardiopulmonary disease/process. No significant change from prior examination.
== END ==
LOC: RADXRMAIN 13:05
PROVIDERS: ATTEND Internal Medicine
DX: E83.52 Hypercalcemia (principal)
CPT/HCPCS: 71046

== ENCOUNTER 2022-02-20 19:04 | Inpatient (IN) | payer MEDICARE ==
[2022-02-20] MEDS ORDERED: FUROSEMIDE 10 MG/ML 4 ML VIAL IV STA (19:17)
--- NOTE | 2022-02-20 19:23 | ED ---
SOB HPI - General Stated Complaint: CHF Time Seen by Provider: 02/20/22 19:06 Source: patient, EMS, RN notes reviewed Mode of arrival: EMS Limitations: altered mental status - History of Present Illness Initial Comments: This is a pleasant 81-year-old female with a history of congestive heart failure. She presents to the emergency department with progressive shortness of breath. Patient denying any chest pain or fever. Denies any productive cough. Patient was taken off of her furosemide a few months ago. They don't know exactly why although the patient does have some history of renal insufficiency it sounds like. Over the past 2 weeks patient has been retaining more fluid, has been noticing more swelling, and has been having exertional dyspnea. Patient was put back on furosemide 20 mg per day by her primary care physician 2 weeks ago. Patient has had no recent cardiac testing. Patient sees Dr. Ureña normally. the patient is on Plavix and Xarelto as well. No headache, no fever or chills, no changes in vision or hearing, no sore throat or difficulty with speech, no neck pain, no chest pain, positive exertional dyspnea, no abdominal pain, no nausea or vomiting, no changes in urination or bowel movements, no numbness or tingling, no extremity pain, positive extremity edema, no skin rashes or lesions. Past medical, surgical, social, and family history reviewed. MD Complaint: shortness of breath - Related Data Home Medications Medication Instructions Recorded Confirmed Cyanocobalamin [Vitamin B-12] 500 mcg PO DAILY 06/28/21 02/20/22 Rivaroxaban [Xarelto] 15 mg PO DAILY 06/28/21 02/20/22 Simvastatin [Zocor] 20 mg PO DAILY 06/28/21 02/20/22 Ciprofloxacin HCl [Cipro] 500 mg PO BID 12/02/21 02/20/22 Insulin Lispro [humaLOG Kwikpen] See Protocol SQ TID-W/MEALS 12/02/21 02/20/22 Folic Acid 1 mg PO DAILY 02/20/22 02/20/22 Furosemide [Lasix] 20 mg PO DAILY 02/20/22 02/20/22 Insulin Glargine,Hum.rec.anlog 12 units SQ HS 02/20/22 02/20/22 [Lantus Solostar Pen] Insulin Lispro [humaLOG Kwikpen] 4 unit SQ AC-TID 02/20/22 02/20/22 Omeprazole 20 mg PO DAILY 02/20/22 02/20/22 Potassium Chloride ER [K-Dur 10] 10 meq PO DAILY@1500 02/20/22 02/20/22 Sodium Bicarbonate Tab 650 mg PO DAILY@1500 02/20/22 02/20/22 Tamsulosin HCl [Flomax] 0.4 mg PO DAILY 02/20/22 02/20/22 Torsemide [Demadex] 5 mg PO DAILY 02/20/22 02/20/22 amLODIPine [Norvasc] 10 mg PO DAILY 02/20/22 02/20/22 hydrALAZINE HCL [Apresoline] 50 mg PO TID@0900,1500,2200 02/20/22 02/20/22 Previous Rx's Medication Instructions Recorded Clopidogrel [Plavix] 75 mg PO DAILY 30 Days #30 tab 07/25/21 Allergies Allergy/AdvReac Type Severity Reaction Status Date / Time aspirin Allergy Anaphylaxis Verified 02/20/22 21:11 Review of Systems ROS Statement: Those systems with pertinent positive or pertinent negative responses have been documented in the HPI. ROS Other: All systems not noted in ROS Statement are negative. Past Medical History Past Medical History: Atrial Fibrillation, Diabetes Mellitus, Hypertension Additional Past Medical History / Comment(s): wound rt foot, wound to left pin [place], wound right abdominal wall, bilateral toe amputation, kidney failure, CHF, History of Any Multi-Drug Resistant Organisms: None Reported Past Surgical History: Cholecystectomy Additional Past Surgical History / Comment(s): hematoma removal abdomen Past Anesthesia/Blood Transfusion Reactions: No Reported Reaction Past Psychological History: No Psychological Hx Reported Smoking Status: Never smoker Past Alcohol Use History: None Reported Past Drug Use History: None Reported - Past Family History Sister(s) Family Medical History: Cancer Brother(s) Family Medical History: Cancer General Exam - General Exam Comments Initial Comments: Patient does not appear to be in any significant distress at the time I am evaluating her. Cranial nerves II through XII are grossly intact. Patient appears to be adequately hydrated. Capillary refill less than 2 seconds. No mottling. Limitations: altered mental status General appearance: alert, in no apparent distress Head exam: Present: atraumatic, normocephalic, normal inspection Eye exam: Present: normal appearance, PERRL, EOMI. Absent: scleral icterus, conjunctival injection, periorbital swelling ENT exam: Present: normal exam, mucous membranes moist, normal external ear exam. Absent: mucous membranes dry Neck exam: Present: normal inspection, full ROM, other (JVD noted). Absent: tenderness, meningismus, lymphadenopathy Respiratory exam: Present: rales (Bibasilar rales, greater on the right). Absent: respiratory distress, wheezes, rhonchi, stridor, chest wall tenderness, accessory muscle use, decreased breath sounds, prolonged expiratory Cardiovascular Exam: Present: normal rhythm, bradycardia (Patient noted to be bradycardic at 47/m.), normal heart sounds. Absent: systolic murmur, diastolic murmur, rubs, gallop, clicks GI/Abdominal exam: Present: soft, normal bowel sounds. Absent: distended, tenderness, guarding, rebound, rigid Extremities exam: Present: normal inspection, full ROM, normal capillary refill, pedal edema (She has pitting edema bilaterally extending up both lower extremities just beyond the tibial plateau, pulses intact). Absent: tenderness, joint swelling, calf tenderness Back exam: Present: normal inspection, full ROM. Absent: rash noted Neurological exam: Present: alert, oriented X3, CN II-XII intact Psychiatric exam: Present: normal affect, normal mood Skin exam: Present: warm, dry, intact, normal color. Absent: rash, cyanosis, diaphoretic, erythema, urticaria, vesicles, petechiae, pallor, mottled, abrasion Course Vital Signs 02/20/22 02/20/22 02/20/22 19:06 19:19 20:00 Temperature 97.7 F 97.9 F Pulse Rate 47 L 74 Respiratory 22 22 17 Rate Blood Pressure 130/72 140/69 O2 Sat by Pulse 96 97 Oximetry 02/20/22 02/20/22 21:00 21:32 Temperature Pulse Rate 62 62 Respiratory 16 16 Rate Blood Pressure 134/67 128/77 O2 Sat by Pulse 98 96 Oximetry - Reevaluation(s) Reevaluation #1: 02/20/22 20:32 Medical record is reviewed Symptoms are essentially unchanged Patient is informed of results and questions answered Patient in no distress Reevaluation #2: 02/20/22 21:15 Patient somewhat improved in the emergency department. Patient will be admitted to [facility] group. Case discussed in detail with Mildred Lopez Reevaluation #3: 02/20/22 22:09 Went back in to reevaluate the patient. Apparently patient has had increased pain in the area of the left flank and CVA. We'll obtain an ultrasound of the kidneys, ureter, bladder. Medical Decision Making - Medical Decision Making Given the patient's symptomology, worsening congestive heart. It is within the differential. Also patient noted be bradycardic. Certainly could be related to some of symptomology. Does not appear to be consistent with infectious process. Does not appear to be consistent with ischemic cardiac disease. Patient's laboratory investigations show evidence of a urinary tract infection, stable renal function, hyponatremia, sodium is 127, calcium was 7.3, phosphorus 2.3. There is a normal anion gap. white blood cell count is 8300. Patient does have stable appearing anemia. Patient started on pneumonia protocol with ceftriaxone and azithromycin. We'll order gentle rehydration with normal saline for the sodium of 127. Admitted to [facility], discussed with the [facility]. Kidney, ureter, bladder ultrasound added after discussion with family who arrived late. The case was discussed in detail with ED attending physician. Presentation, findings, treatment plan discussed in detail. Dr. Kaushal Early - Lab Data Result diagrams: 02/20/22 19:24 02/20/22 19:24 Lab Results 02/20/22 02/20/22 02/20/22 Range/Units 19:24 19:24 19:24 WBC 8.3 (3.8-10.6) k/uL RBC 3.06 L (3.80-5.40) m/uL Hgb 9.2 L (11.4-16.0) gm/dL Hct 27.7 L (34.0-46.0) % MCV 90.5 (80.0-100.0) fL MCH 30.2 (25.0-35.0) pg MCHC 33.4 (31.0-37.0) g/dL RDW 13.5 (11.5-15.5) % Plt Count 265 (150-450) k/uL MPV 8.1 Neutrophils % 75 % Lymphocytes % 11 % Monocytes % 9 % Eosinophils % 3 % Basophils % 0 % Neutrophils # 6.2 (1.3-7.7) k/uL Lymphocytes # 0.9 L (1.0-4.8) k/uL Monocytes # 0.7 (0-1.0) k/uL Eosinophils # 0.3 (0-0.7) k/uL Basophils # 0.0 (0-0.2) k/uL Hypochromasia Slight Sodium 127 L (137-145) mmol/L Potassium 3.8 (3.5-5.1) mmol/L Chloride 95 L (98-107) mmol/L Carbon Dioxide 19 L (22-30) mmol/L Anion Gap 13 mmol/L BUN 22 H (7-17) mg/dL Creatinine 1.59 H (0.52-1.04) mg/dL Est GFR (CKD-EPI)AfAm 35 (>60 ml/min/1.73 sqM) Est GFR (CKD-EPI)NonAf 30 (>60 ml/min/1.73 sqM) Glucose 139 H (74-99) mg/dL Calcium 7.3 L (8.4-10.2) mg/dL Phosphorus 2.3 L (2.5-4.5) mg/dL Magnesium 1.6 (1.6-2.3) mg/dL Total Bilirubin 0.5 (0.2-1.3) mg/dL AST 19 (14-36) U/L ALT 15 (4-34) U/L Alkaline Phosphatase 124 (38-126) U/L Troponin I <0.012 (0.000-0.034) ng/mL NT-Pro-B Natriuret Pep pg/mL Total Protein 6.3 (6.3-8.2) g/dL Albumin 3.3 L (3.5-5.0) g/dL Urine Color Urine Appearance (Clear) Urine pH (5.0-8.0) Ur Specific [place] (1.001-1.035) Urine Protein (Negative) Urine Glucose (UA) (Negative) Urine Ketones (Negative) Urine Blood (Negative) Urine Nitrite (Negative) Urine Bilirubin (Negative) Urine Urobilinogen (<2.0) mg/dL Ur Leukocyte Esterase (Negative) Urine RBC (0-5) /hpf Urine WBC (0-5) /hpf Urine WBC Clumps (None) /hpf Hyaline Casts (0-2) /lpf Urine Mucus (None) /hpf Urine Yeast (Budding) (None) /hpf 02/20/22 02/20/22 02/20/22 Range/Units 19:24 19:45 20:55 WBC (3.8-10.6) k/uL RBC (3.80-5.40) m/uL Hgb (11.4-16.0) gm/dL Hct (34.0-46.0) % MCV (80.0-100.0) fL MCH (25.0-35.0) pg MCHC (31.0-37.0) g/dL RDW (11.5-15.5) % Plt Count (150-450) k/uL MPV Neutrophils % % Lymphocytes % % Monocytes % % Eosinophils % % Basophils % % Neutrophils # (1.3-7.7) k/uL Lymphocytes # (1.0-4.8) k/uL Monocytes # (0-1.0) k/uL Eosinophils # (0-0.7) k/uL Basophils # (0-0.2) k/uL Hypochromasia Sodium (137-145) mmol/L Potassium (3.5-5.1) mmol/L Chloride (98-107) mmol/L Carbon Dioxide (22-30) mmol/L Anion Gap mmol/L BUN (7-17) mg/dL Creatinine (0.52-1.04) mg/dL Est GFR (CKD-EPI)AfAm (>60 ml/min/1.73 sqM) Est GFR (CKD-EPI)NonAf (>60 ml/min/1.73 sqM) Glucose (74-99) mg/dL Calcium (8.4-10.2) mg/dL Phosphorus (2.5-4.5) mg/dL Magnesium (1.6-2.3) mg/dL Total Bilirubin (0.2-1.3) mg/dL AST (14-36) U/L ALT (4-34) U/L Alkaline Phosphatase (38-126) U/L Troponin I <0.012 (0.000-0.034) ng/mL NT-Pro-B Natriuret Pep 77961 pg/mL Total Protein (6.3-8.2) g/dL Albumin (3.5-5.0) g/dL Urine Color Yellow Urine Appearance Turbid H (Clear) Urine pH 5.5 (5.0-8.0) Ur Specific [place] 1.018 (1.001-1.035) Urine Protein 2+ H (Negative) Urine Glucose (UA) 1+ H (Negative) Urine Ketones Negative (Negative) Urine Blood Moderate H (Negative) Urine Nitrite Negative (Negative) Urine Bilirubin Negative (Negative) Urine Urobilinogen <2.0 (<2.0) mg/dL Ur Leukocyte Esterase Large H (Negative) Urine RBC 64 H (0-5) /hpf Urine WBC >182 H (0-5) /hpf Urine WBC Clumps Many H (None) /hpf Hyaline Casts 16 H (0-2) /lpf Urine Mucus Rare H (None) /hpf Urine Yeast (Budding) Many H (None) /hpf - EKG Data EKG Comments: EKG done in 1924 and regular ED attending physician reveals atrial fibrillation with left axis deviation. Moderate voltage criteria for LVH. Poor R-wave progression. Nonpathological Q waves. Other intervals are normal. When compared to the previous study from 10/13/2021 there are no significant changes. - Radiology Data Radiology results: report reviewed, image reviewed X-ray shows multifocal airspace opacities concerning for pneumonia. I did review the film myself. There also appears to be a right pleural effusion. Disposition Clinical Impression: Multifocal pneumonia, Acute exacerbation of congestive heart failure, Urinary tract infection, Hyponatremia Disposition: ADMITTED IP TO THIS [facility] Condition: Fair Is patient prescribed a controlled substance at d/c from ED?: No Decision to Admit Reason: Admit from EC Decision Time: 20:34
[2022-02-20 19:46] LABS: Basophils % (A) 0 %; Eosinophils # (A) 0.3 k/uL (0-0.7); Eosinophils % (A) 3 %; HCT 27.7 % (34.0-46.0); HGB 9.2 gm/dL (11.4-16.0); Hypochromasia Slight; Lymphocytes # (A) 0.9 k/uL (1.0-4.8); Lymphocytes % (A) 11 %; MCH 30.2 pg (25.0-35.0); MCHC 33.4 g/dL (31.0-37.0); MCV 90.5 fL (80.0-100.0); Mean Platelet Volume 8.1; Monocytes # (A) 0.7 k/uL (0-1.0); Monocytes % (A) 9 %; Neutrophils # (A) 6.2 k/uL (1.3-7.7); Neutrophils % (A) 75 %; Platelet Count 265 k/uL (150-450); RBC 3.06 m/uL (3.80-5.40); RDW 13.5 % (11.5-15.5); WBC 8.3 k/uL (3.8-10.6)
[2022-02-20 20:05] LABS: Appearance,Urine Turbid (Clear); Bilirubin,Urine Negative (Negative); Blood,Urine Moderate (Negative); Budding Yeast,Urine Many /hpf; Color,Urine Yellow; Glucose,Urine (UA) 1+ (Negative); Hyaline Casts,Urine 16 /lpf (0-2); Ketones,Urine Negative (Negative); Leukocyte Esterase,Urine Large (Negative); Mucus,Urine Rare /hpf; Nitrite,Urine Negative (Negative); PH, Urine 5.5 (5.0-8.0); Protein,Urine 2+ (Negative); RBC,Urine 64 /hpf (0-5); Specific Gravity,Urine 1.018 (1.001-1.035); Urobilinogen,Urine <2.0 mg/dL (<2.0); WBC,Urine >182 /hpf (0-5)
--- NOTE | 2022-02-20 20:08 | XR ---
EXAMINATION TYPE: XR chest 1V portable DATE OF EXAM: 02/20/2022 7:59 PM COMPARISON: Chest radiographs from 12/14/2021 TECHNIQUE: XR chest 1V portable Portable AP radiograph of the chest. CLINICAL INDICATION:Female, 81 years old with history of dyspnea; FINDINGS: Lungs/Pleura: Multifocal airspace opacities in the left perihilar region in the right lower lung.. No evidence of pneumothorax or pleural effusion. Pulmonary vascularity: Unremarkable. Heart/mediastinum: Cardiomediastinal silhouette is enlarged and stable. Musculoskeletal: No acute osseous pathology. IMPRESSION: Multifocal airspace opacities concerning for pneumonia.
[2022-02-20 20:09] LABS: Albumin 3.3 g/dL (3.5-5.0); Calcium 7.3 mg/dL (8.4-10.2); Magnesium 1.6 mg/dL (1.6-2.3); Phosphorus 2.3 mg/dL (2.5-4.5); Potassium 3.8 mmol/L (3.5-5.1); Total Bilirubin 0.5 mg/dL (0.2-1.3); Total Protein 6.3 g/dL (6.3-8.2)
[2022-02-20] MEDS ORDERED: MORPHINE SULFATE 4 MG/ML SYRINGE IV STA (20:14)
[2022-02-20] MEDS ORDERED: ONDANSETRON 4 MG/2 ML VIAL IVP STA (20:14)
[2022-02-20] MEDS ORDERED: ALBUTEROL NEBULIZED 2.5 MG/3 ML INHALATION PRN (20:27)
[2022-02-20] MEDS ORDERED: AZITHROMYCIN 500 MG in SODIUM CHLORIDE 0.9% 250 ML IVPB STA (20:27)
[2022-02-20] MEDS ORDERED: PNEUMONIA PROTOCOL UTILIZED 1 EACH MISC PO PRN (20:27)
[2022-02-20] MEDS ORDERED: ACETAMINOPHEN TAB 325 MG TAB PO PRN (20:27)
[2022-02-20] MEDS ORDERED: DEXTROSE 50% SYRINGE 50 ML IVP PRN ×2 (20:29)
[2022-02-20] MEDS: SODIUM CHLORIDE 0.9% 1,000 ML IV SCH (21:04)
--- NOTE | 2022-02-20 23:10 | US ---
EXAMINATION TYPE: US kidneys/renal and bladder DATE OF EXAM: 02/20/2022 COMPARISON: 10/16/21 CLINICAL HISTORY: Left flank pain, abnormal urinalysis. Left flank pain EXAM MEASUREMENTS: Right Kidney: 9.0 x 4.0 x 4.2 Left Kidney: 9.8 x 3.9 x 4.4 Right Kidney: No hydronephrosis or masses seen Left Kidney: No hydronephrosis or masses seen Bladder: Not vis. Patient has a [place] Bilateral Jets seen: No IMPRESSION: No sign of renal mass or obstruction. Urinary bladder is empty.
[2022-02-20] MEDS: INSULIN ASPART (NovoLOG) 100 UNIT/ML VIAL SQ SCH (23:25)
[2022-02-21] MEDS: SODIUM CHLORIDE 0.9% 1,000 ML IV SCH ×2 (06:00)
[2022-02-21 07:01] LABS: Glucose,Whole Blood 126 mg/dL (70-110)
--- NOTE | 2022-02-21 07:31 | XR ---
EXAMINATION TYPE: XR chest 2V DATE OF EXAM: 02/21/2022 6:31 AM COMPARISON: Chest radiographs from 02/20/2022. TECHNIQUE: XR chest 2V Frontal and lateral views of the chest. CLINICAL INDICATION:Female, 81 years old with history of pneumonia; FINDINGS: Lungs/Pleura: No evidence of pneumothorax. Small right pleural effusion. Elevation of the right hemid iaphragm redemonstrated. Multifocal patchy airspace opacities with similar appearance in the left per ihilar region and increased appearance within the right lower lung. Pulmonary vascularity: Unremarkable. Heart/mediastinum: Cardiomediastinal silhouette is unremarkable. Musculoskeletal: No acute osseous pathology. IMPRESSION: Worsening multifocal patchy airspace opacities with small right pleural effusion.
[2022-02-21] MEDS: IPRATROPIUM-ALBUTEROL 3 ML NEB INHALATION SCH ×4 (07:43→20:36)
[2022-02-21] MEDS: INSULIN ASPART (NovoLOG) 100 UNIT/ML VIAL SQ SCH ×6 (07:45→20:38)
[2022-02-21] MEDS ORDERED: ALBUTEROL NEBULIZED 2.5 MG/3 ML INHALATION SCH (08:00)
--- NOTE | 2022-02-21 09:17 | P.CRDCN ---
History of Present Illness History of present illness: This is a pleasant 81-year-old female past medical history significant for permanent atrial fibrillation on Xarelto, hypertension, type 2 diabetes, chronic kidney disease, hyperlipidemia, peripheral vascular disease s/p aortogram with CO2 angiography, bilateral iliofemoral angiogram with percutaneous balloon angioplasty of left posterior tibial artery with Dr. 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 She follows in the office with Dr. Ureña. We have been asked to see in consultation for congestive heart failure. Patient presents emergency department with worsening shortness of breath, lower extremity edema and 15-20lb gradual weight gain. She states over the past 2 weeks she has progressively been getting more shortness of breath, noticed her weight increased and LE edema has worsened. She presented to the ER for further evaluation. She denies any chest pain, palpitations, lightheadedness, dizziness, symptoms of orthopnea or PND. She denies any fever, cough, chills, night sweats. She was started on IV Lasix in the ER, her shortness of breath has improved. DIAGNOSTICS * EKG reveals atrial fibrillation, heart 67, right bundle-branch block * Laboratory reviewed, troponin negative 3, WBC 8.3, hemoglobin 9.2, platelets 265, sodium 127, potassium 3.8, BUN 22, serum creatinine 1.59, magnesium 1.6, proBNP 16,200, covid 19 negative * Current home medications include torsemide 5 mg daily, Xarelto 15 mg daily, simvastatin 20 mg daily, hydralazine 50 mg 3 times a day, potassium chloride, amlodipine 10 mg daily, Lasix 20 mg daily, Plavix 75 mg daily * Echocardiogram 07/18/2021 revealed an EF of 52%, moderate mitral regurgitation, mild tricuspid regurgitation, severe pulmonary hypertension with an RVSP 74 mmHg REVIEW OF SYSTEMS At the time of my exam: CONSTITUTIONAL: Denies fever or chills. CARDIOVASCULAR: Denies chest pain, +shortness of breath, Denies orthopnea, PND or palpitations. RESPIRATORY: Denies cough. GASTROINTESTINAL: Denies abdominal pain, diarrhea, constipation, nausea or vom iting. MUSCULOSKELETAL: Denies myalgias. NEUROLOGIC: Denies numbness, tingling, headacbe or weakness. ENDOCRINE: Denies fatigue, weight change, polydipsia or polyurina. GENITOURINARY: Denies burning, hematuria or urgency with micturation. HEMATOLOGIC: Denies history of anemia or bleeding. PHYSICAL EXAMINATION Blood pressure 140/60, heart rate 46, afebrile, oxygen saturation is 97% on room air CONSTITUTIONAL: No apparent distress. HEENT: Head is normocephalic. Pupils are equal, round. Sclerae anicteric. Mucous membranes of the mouth are moist. No JVD. No carotid bruit. CHEST EXAMINATION: Lungs are crackles in the bases bilaterally to auscultation. No chest wall tenderness is noted on palpation or with deep breathing. HEART EXAMINATION: Irregular rate and rhythm. S1, S2 heard. Systolic ejection murmur at the apex ABDOMEN: Soft, nontender. Positive bowel sounds. EXTREMITIES: 3+ bilateral lower extremity edema. Left metatarsal amputation. NEUROLOGIC EXAMINATION: Patient is awake, alert and oriented x3. 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 Don on 07/22/2021 PLAN Continue IV Lasix 40mg BID Monitor I/Os, daily weights Monitor renal function and electrolytes Obtain 2D echocardiogram Continue home anticoagulation with Xarelto Continue amlodipine and hydralazine Not on beta prema secondary to bradycardia Not on ACEI/ARB secondary to kidney function Further recommendations based on clinical course Nurse practitioner note has been reviewed by physician. Signing provider agrees with the documented findings, assessment, and plan of care. Past Medical History Past Medical History: Atrial Fibrillation, Diabetes Mellitus, Hypertension Additional Past Medical History / Comment(s): wound rt foot, wound to left pinkey, wound right abdominal wall, bilateral toes amputation, kidney failure, CHF, History of Any Multi-Drug Resistant Organisms: None Reported Past Surgical History: Cholecystectomy Additional Past Surgical History / Comment(s): hematoma removal abdomen Past Anesthesia/Blood Transfusion Reactions: No Reported Reaction Past Psychological History: No Psychological Hx Reported Smoking Status: Never smoker Past Alcohol Use History: None Reported Past Drug Use History: None Reported - Past Family History Sister(s) Family Medical History: Cancer Brother(s) Family Medical History: Cancer Medications and Allergies Home Medications Medication Instructions Recorded Confirmed Type Cyanocobalamin [Vitamin B-12] 500 mcg PO DAILY 06/28/21 02/20/22 History Rivaroxaban [Xarelto] 15 mg PO DAILY 06/28/21 02/20/22 History Simvastatin [Zocor] 20 mg PO DAILY 06/28/21 02/20/22 History Clopidogrel [Plavix] 75 mg PO DAILY 30 Days #30 tab 07/25/21 02/20/22 Rx Ciprofloxacin HCl [Cipro] 500 mg PO BID 12/02/21 02/20/22 History Insulin Lispro [humaLOG Kwikpen] See Protocol SQ TID-W/MEALS 12/02/21 02/20/22 History Folic Acid 1 mg PO DAILY 02/20/22 02/20/22 History Furosemide [Lasix] 20 mg PO DAILY 02/20/22 02/20/22 History Insulin Glargine,Hum.rec.anlog 12 units SQ HS 02/20/22 02/20/22 History [Lantus Solostar Pen] Insulin Lispro [humaLOG Kwikpen] 4 unit SQ AC-TID 02/20/22 02/20/22 History Omeprazole 20 mg PO DAILY 02/20/22 02/20/22 History Potassium Chloride ER [K-Dur 10] 10 meq PO DAILY@1500 02/20/22 02/20/22 History Sodium Bicarbonate Tab 650 mg PO DAILY@1500 02/20/22 02/20/22 History Tamsulosin HCl [Flomax] 0.4 mg PO DAILY 02/20/22 02/20/22 History Torsemide [Demadex] 5 mg PO DAILY 02/20/22 02/20/22 History amLODIPine [Norvasc] 10 mg PO DAILY 02/20/22 02/20/22 History hydrALAZINE HCL [Apresoline] 50 mg PO TID@0900,1500,2200 02/20/22 02/20/22 History Allergies Allergy/AdvReac Type Severity Reaction Status Date / Time aspirin Allergy Anaphylaxis Verified 02/20/22 21:11 Physical Exam Vitals: Vital Signs Temp Pulse Pulse Resp BP BP Pulse Ox 02/21/22 02:00 97.5 F L 48 L 16 127/58 96 02/20/22 22:28 97.6 F 53 L 17 117/63 97 02/20/22 21:32 62 16 128/77 96 02/20/22 21:00 62 16 134/67 98 02/20/22 20:00 97.9 F 74 17 140/69 97 02/20/22 19:19 22 02/20/22 19:06 97.7 F 47 L 22 130/72 96 Intake and Output 02/20/22 02/21/22 02/21/22 22:59 06:59 14:59 Output Total 600 Balance -600 Output: Urine 600 Other: Voiding Method Indwelling Catheter Weight 78.471 kg 78.471 kg Results 02/20/22 19:24 02/20/22 19:24 Cardiac Enzymes 02/20/22 02/20/22 02/20/22 Range/Units 19:24 19:24 20:55 AST 19 (14-36) U/L Troponin I <0.012 <0.012 (0.000-0.034) ng/mL 02/21/22 Range/Units 01:02 AST (14-36) U/L Troponin I 0.014 (0.000-0.034) ng/mL CBC 02/20/22 Range/Units 19:24 WBC 8.3 (3.8-10.6) k/uL RBC 3.06 L (3.80-5.40) m/uL Hgb 9.2 L (11.4-16.0) gm/dL Hct 27.7 L (34.0-46.0) % Plt Count 265 (150-450) k/uL Comprehensive Metabolic Panel 02/20/22 Range/Units 19:24 Sodium 127 L (137-145) mmol/L Potassium 3.8 (3.5-5.1) mmol/L Chloride 95 L (98-107) mmol/L Carbon Dioxide 19 L (22-30) mmol/L BUN 22 H (7-17) mg/dL Creatinine 1.59 H (0.52-1.04) mg/dL Glucose 139 H (74-99) mg/dL Calcium 7.3 L (8.4-10.2) mg/dL AST 19 (14-36) U/L ALT 15 (4-34) U/L Alkaline Phosphatase 124 (38-126) U/L Total Protein 6.3 (6.3-8.2) g/dL Albumin 3.3 L (3.5-5.0) g/dL Current Medications Generic Name Dose Route Start Last Admin Trade Name Freq PRN Reason Stop Dose Admin Acetaminophen 650 mg 02/20/22 20:27 02/20/22 21:03 Acetaminophen Tab 325 Mg Tab PO 650 mg Q4HR PRN Administration Fever and/ or Pain Albuterol Sulfate 2.5 mg 02/20/22 20:27 Albuterol Nebulized 2.5 Mg/3 Ml INHALATION Q2H PRN Shortness Of Breath Or Wheezing Albuterol/Ipratropium 3 ml 02/21/22 08:00 Ipratropium-Albuterol 3 Ml Neb INHALATION RT-QID [facility] Amlodipine Besylate 5 mg 02/21/22 09:00 Amlodipine 5 Mg Tab PO DAILY [facility] Azithromycin 500 mg 02/21/22 15:00 Azithromycin 500 Mg Tab PO 02/22/22 09:01 DAILY [facility] Protocol Dextrose/Water 25 ml 02/20/22 20:29 Dextrose 50% Syringe 50 Ml IVP PER PROTOCOL PRN Hypoglycemia Protocol Dextrose/Water 50 ml 02/20/22 20:29 Dextrose 50% Syringe 50 Ml IVP PER PROTOCOL PRN Hypoglycemia Protocol Furosemide 40 mg 02/21/22 09:00 Furosemide 10 Mg/Ml 4 Ml Vial IV Q12HR [facility] Ceftriaxone Sodium 2 gm/ 50 mls @ 100 mls/hr 02/21/22 21:00 Sodium Chloride IVPB 02/24/22 21:29 Q24H [facility] Protocol Sodium Chloride 1,000 mls @ 75 mls/hr 02/20/22 20:45 02/21/22 06:00 Saline 0.9% IV 75 mls/hr .[id number] [facility] Administration Insulin Aspart 0 unit 02/20/22 21:00 02/20/22 23:25 Insulin Aspart (Novolog) 100 Unit/Ml Vial SQ Not Given ACHS [facility] Protocol Miscellaneous Information 1 each 02/20/22 20:27 Pneumonia Protocol Utilized 1 Each Misc PO ONCE PRN Per Protocol Intake and Output 02/20/22 02/21/22 02/21/22 22:59 06:59 14:59 Output Total 600 Balance -600 Output: Urine 600 Other: Voiding Method Indwelling Catheter Weight 78.471 kg 78.471 kg 02/20/22 19:24 02/20/22 19:24
--- NOTE | 2022-02-21 09:17 | P.CRDCN ---
History of Present Illness History of present illness: This is a pleasant 81-year-old female past medical history significant for permanent atrial fibrillation on Xarelto, hypertension, type 2 diabetes, chronic kidney disease, hyperlipidemia, peripheral vascular disease s/p aortogram with CO2 angiography, bilateral iliofemoral angiogram with percutaneous balloon angioplasty of left posterior tibial artery with Dr. 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 She follows in the office with Dr. Ureña. We have been asked to see in consultation for congestive heart failure. Patient presents emergency department with worsening shortness of breath, lower extremity edema and 15-20lb gradual weight gain. She states over the past 2 weeks she has progressively been getting more shortness of breath, noticed her weight increased and LE edema has worsened. She presented to the ER for further evaluation. She denies any chest pain, palpitations, lightheadedness, dizziness, symptoms of orthopnea or PND. She denies any fever, cough, chills, night sweats. She was started on IV Lasix in the ER, her shortness of breath has improved. DIAGNOSTICS * EKG reveals atrial fibrillation, heart 67, right bundle-branch block * Laboratory reviewed, troponin negative 3, WBC 8.3, hemoglobin 9.2, platelets 265, sodium 127, potassium 3.8, BUN 22, serum creatinine 1.59, magnesium 1.6, proBNP 16,200, covid 19 negative * Current home medications include torsemide 5 mg daily, Xarelto 15 mg daily, simvastatin 20 mg daily, hydralazine 50 mg 3 times a day, potassium chloride, amlodipine 10 mg daily, Lasix 20 mg daily, Plavix 75 mg daily * Echocardiogram 07/18/2021 revealed an EF of 52%, moderate mitral regurgitation, mild tricuspid regurgitation, severe pulmonary hypertension with an RVSP 74 mmHg REVIEW OF SYSTEMS At the time of my exam: CONSTITUTIONAL: Denies fever or chills. CARDIOVASCULAR: Denies chest pain, +shortness of breath, Denies orthopnea, PND or palpitations. RESPIRATORY: Denies cough. GASTROINTESTINAL: Denies abdominal pain, diarrhea, constipation, nausea or vom iting. MUSCULOSKELETAL: Denies myalgias. NEUROLOGIC: Denies numbness, tingling, headacbe or weakness. ENDOCRINE: Denies fatigue, weight change, polydipsia or polyurina. GENITOURINARY: Denies burning, hematuria or urgency with micturation. HEMATOLOGIC: Denies history of anemia or bleeding. PHYSICAL EXAMINATION Blood pressure 140/60, heart rate 46, afebrile, oxygen saturation is 97% on room air CONSTITUTIONAL: No apparent distress. HEENT: Head is normocephalic. Pupils are equal, round. Sclerae anicteric. Mucous membranes of the mouth are moist. No JVD. No carotid bruit. CHEST EXAMINATION: Lungs are crackles in the bases bilaterally to auscultation. No chest wall tenderness is noted on palpation or with deep breathing. HEART EXAMINATION: Irregular rate and rhythm. S1, S2 heard. Systolic ejection murmur at the apex ABDOMEN: Soft, nontender. Positive bowel sounds. EXTREMITIES: 3+ bilateral lower extremity edema. Left metatarsal amputation. NEUROLOGIC EXAMINATION: Patient is awake, alert and oriented x3. 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 Don on 07/22/2021 PLAN Continue IV Lasix 40mg BID Monitor I/Os, daily weights Monitor renal function and electrolytes Obtain 2D echocardiogram Continue home anticoagulation with Xarelto Continue amlodipine and hydralazine Not on beta prema secondary to bradycardia Not on ACEI/ARB secondary to kidney function Further recommendations based on clinical course Nurse practitioner note has been reviewed by physician. Signing provider agrees with the documented findings, assessment, and plan of care. Past Medical History Past Medical History: Atrial Fibrillation, Diabetes Mellitus, Hypertension Additional Past Medical History / Comment(s): wound rt foot, wound to left pinkey, wound right abdominal wall, bilateral toes amputation, kidney failure, CHF, History of Any Multi-Drug Resistant Organisms: None Reported Past Surgical History: Cholecystectomy Additional Past Surgical History / Comment(s): hematoma removal abdomen Past Anesthesia/Blood Transfusion Reactions: No Reported Reaction Past Psychological History: No Psychological Hx Reported Smoking Status: Never smoker Past Alcohol Use History: None Reported Past Drug Use History: None Reported - Past Family History Sister(s) Family Medical History: Cancer Brother(s) Family Medical History: Cancer Medications and Allergies Home Medications Medication Instructions Recorded Confirmed Type Cyanocobalamin [Vitamin B-12] 500 mcg PO DAILY 06/28/21 02/20/22 History Rivaroxaban [Xarelto] 15 mg PO DAILY 06/28/21 02/20/22 History Simvastatin [Zocor] 20 mg PO DAILY 06/28/21 02/20/22 History Clopidogrel [Plavix] 75 mg PO DAILY 30 Days #30 tab 07/25/21 02/20/22 Rx Ciprofloxacin HCl [Cipro] 500 mg PO BID 12/02/21 02/20/22 History Insulin Lispro [humaLOG Kwikpen] See Protocol SQ TID-W/MEALS 12/02/21 02/20/22 History Folic Acid 1 mg PO DAILY 02/20/22 02/20/22 History Furosemide [Lasix] 20 mg PO DAILY 02/20/22 02/20/22 History Insulin Glargine,Hum.rec.anlog 12 units SQ HS 02/20/22 02/20/22 History [Lantus Solostar Pen] Insulin Lispro [humaLOG Kwikpen] 4 unit SQ AC-TID 02/20/22 02/20/22 History Omeprazole 20 mg PO DAILY 02/20/22 02/20/22 History Potassium Chloride ER [K-Dur 10] 10 meq PO DAILY@1500 02/20/22 02/20/22 History Sodium Bicarbonate Tab 650 mg PO DAILY@1500 02/20/22 02/20/22 History Tamsulosin HCl [Flomax] 0.4 mg PO DAILY 02/20/22 02/20/22 History Torsemide [Demadex] 5 mg PO DAILY 02/20/22 02/20/22 History amLODIPine [Norvasc] 10 mg PO DAILY 02/20/22 02/20/22 History hydrALAZINE HCL [Apresoline] 50 mg PO TID@0900,1500,2200 02/20/22 02/20/22 History Allergies Allergy/AdvReac Type Severity Reaction Status Date / Time aspirin Allergy Anaphylaxis Verified 02/20/22 21:11 Physical Exam Vitals: Vital Signs Temp Pulse Pulse Resp BP BP Pulse Ox 02/21/22 02:00 97.5 F L 48 L 16 127/58 96 02/20/22 22:28 97.6 F 53 L 17 117/63 97 02/20/22 21:32 62 16 128/77 96 02/20/22 21:00 62 16 134/67 98 02/20/22 20:00 97.9 F 74 17 140/69 97 02/20/22 19:19 22 02/20/22 19:06 97.7 F 47 L 22 130/72 96 Intake and Output 02/20/22 02/21/22 02/21/22 22:59 06:59 14:59 Output Total 600 Balance -600 Output: Urine 600 Other: Voiding Method Indwelling Catheter Weight 78.471 kg 78.471 kg Results 02/20/22 19:24 02/20/22 19:24 Cardiac Enzymes 02/20/22 02/20/22 02/20/22 Range/Units 19:24 19:24 20:55 AST 19 (14-36) U/L Troponin I <0.012 <0.012 (0.000-0.034) ng/mL 02/21/22 Range/Units 01:02 AST (14-36) U/L Troponin I 0.014 (0.000-0.034) ng/mL CBC 02/20/22 Range/Units 19:24 WBC 8.3 (3.8-10.6) k/uL RBC 3.06 L (3.80-5.40) m/uL Hgb 9.2 L (11.4-16.0) gm/dL Hct 27.7 L (34.0-46.0) % Plt Count 265 (150-450) k/uL Comprehensive Metabolic Panel 02/20/22 Range/Units 19:24 Sodium 127 L (137-145) mmol/L Potassium 3.8 (3.5-5.1) mmol/L Chloride 95 L (98-107) mmol/L Carbon Dioxide 19 L (22-30) mmol/L BUN 22 H (7-17) mg/dL Creatinine 1.59 H (0.52-1.04) mg/dL Glucose 139 H (74-99) mg/dL Calcium 7.3 L (8.4-10.2) mg/dL AST 19 (14-36) U/L ALT 15 (4-34) U/L Alkaline Phosphatase 124 (38-126) U/L Total Protein 6.3 (6.3-8.2) g/dL Albumin 3.3 L (3.5-5.0) g/dL Current Medications Generic Name Dose Route Start Last Admin Trade Name Freq PRN Reason Stop Dose Admin Acetaminophen 650 mg 02/20/22 20:27 02/20/22 21:03 Acetaminophen Tab 325 Mg Tab PO 650 mg Q4HR PRN Administration Fever and/ or Pain Albuterol Sulfate 2.5 mg 02/20/22 20:27 Albuterol Nebulized 2.5 Mg/3 Ml INHALATION Q2H PRN Shortness Of Breath Or Wheezing Albuterol/Ipratropium 3 ml 02/21/22 08:00 Ipratropium-Albuterol 3 Ml Neb INHALATION RT-QID [facility] Amlodipine Besylate 5 mg 02/21/22 09:00 Amlodipine 5 Mg Tab PO DAILY [facility] Azithromycin 500 mg 02/21/22 15:00 Azithromycin 500 Mg Tab PO 02/22/22 09:01 DAILY [facility] Protocol Dextrose/Water 25 ml 02/20/22 20:29 Dextrose 50% Syringe 50 Ml IVP PER PROTOCOL PRN Hypoglycemia Protocol Dextrose/Water 50 ml 02/20/22 20:29 Dextrose 50% Syringe 50 Ml IVP PER PROTOCOL PRN Hypoglycemia Protocol Furosemide 40 mg 02/21/22 09:00 Furosemide 10 Mg/Ml 4 Ml Vial IV Q12HR [facility] Ceftriaxone Sodium 2 gm/ 50 mls @ 100 mls/hr 02/21/22 21:00 Sodium Chloride IVPB 02/24/22 21:29 Q24H [facility] Protocol Sodium Chloride 1,000 mls @ 75 mls/hr 02/20/22 20:45 02/21/22 06:00 Saline 0.9% IV 75 mls/hr .[id number] [facility] Administration Insulin Aspart 0 unit 02/20/22 21:00 02/20/22 23:25 Insulin Aspart (Novolog) 100 Unit/Ml Vial SQ Not Given ACHS [facility] Protocol Miscellaneous Information 1 each 02/20/22 20:27 Pneumonia Protocol Utilized 1 Each Misc PO ONCE PRN Per Protocol Intake and Output 02/20/22 02/21/22 02/21/22 22:59 06:59 14:59 Output Total 600 Balance -600 Output: Urine 600 Other: Voiding Method Indwelling Catheter Weight 78.471 kg 78.471 kg 02/20/22 19:24 02/20/22 19:24
[2022-02-21] MEDS: amLODIPine 5 MG TAB PO SCH (09:50)
[2022-02-21] MEDS: FUROSEMIDE 10 MG/ML 4 ML VIAL IV SCH ×2 (09:50→20:07)
[2022-02-21] MEDS: DAPAGLIFLOZIN PROPANEDIOL 10 MG TABLET PO SCH (09:53)
--- NOTE | 2022-02-21 10:38 | CA ---
Transthoracic Echo Report Name: Marylu Chavez Age: 81 Gender: F : 1940 Exam Date: 02/21/2022 08:46 Exam Location: [place] [facility] Ht (in): 66 Wt (lb): 173 Ordering Physician: Dl Simon Attending/Referring Phys: Forensic Analyst Swetha Gamino RDCS Procedure CPT: Indications: Heart failure Cardiac Hx: Technical Quality: Good Contrast 1: Total Dose (mL): Contrast 2: Total Dose (mL): MEASUREMENTS (Male / Female) Normal Values 2D ECHO LV Diastolic Diameter PLAX 5.1 cm 4.2 - 5.9 / 3.9 - 5.3 cm LV Systolic Diameter PLAX 3.7 cm IVS Diastolic Thickness 1.1 cm 0.6 - 1.0 / 0.6 - 0.9 cm LVPW Diastolic Thickness 1.2 cm 0.6 - 1.0 / 0.6 - 0.9 cm LV Relative Wall Thickness 0.5 RV Internal Dim ED PLAX 3.2 cm LA Systolic Diameter LX 4.4 cm 3.0 - 4.0 / 2.7 - 3.8 cm LA Volume 89.0 cm??? 18 - 58 / 22 - 52 cm??? M-MODE Aortic Root Diameter MM 2.9 cm MV E Point Septal Separation 1.2 cm AV Cusp Separation MM 2.1 cm DOPPLER AV Peak Velocity 177.5 cm/s AV Peak Gradient 12.6 mmHg MV Area PHT 3.0 cm??? MV Deceleration Time 207.0 ms TR Peak Velocity 325.6 cm/s TR Peak Gradient 42.4 mmHg Right Ventricular Systolic Press 46.5 mmHg FINDINGS Left Ventricle Left ventricular ejection fraction is estimated at 50-55 %. Left ventricular cavity size normal. Borderline left ventricular hypertrophy. Right Ventricle Normal right ventricular size and function. Moderate pulmonary hypertension. Right Atrium Normal right atrial size. Left Atrium Moderately increased left atrial diameter. Severely increased left atrial volume. Mildly increased left atrial area. No evidence for an atrial septal defect. Mitral Valve Mitral valve thickened. Mitral annular calcification. Moderate mitral regurgitation. Aortic Valve Trileaflet aortic valve. Focal thickening of the aortic valve cusps. Tricuspid Valve moderate tricuspid regurgitation. Pulmonic Valve mild pulmonic regurgitation. Pericardium Normal pericardium. No pericardial effusion. Aorta Normal size aortic root and proximal ascending aorta. CONCLUSIONS 1. Left ventricle systolic function borderline normal 2. Moderate mitral and tricuspid regurgitation 3. Moderate pulmonary hypertension Previewed by: Dr. Praveena Ureña MD (Electronically Signed) Final Date: 21 February 2022 10:37
[2022-02-21 11:19] LABS: Glucose,Whole Blood 171 mg/dL (70-110)
--- NOTE | 2022-02-21 13:12 | CT ---
EXAMINATION TYPE: CT chest wo con CT DLP: 390 mGycm, Automated exposure control for dose reduction was used. DATE OF EXAM: 02/21/2022 1:02 PM COMPARISON: Chest radiograph from same day. CLINICAL INDICATION:Female, 81 years old with history of pneumonia?; TECHNIQUE: Multiple axial images were obtained through the chest without IV contrast. Lack of IV or o ral contrast limits evaluation of solid and hollow organ viscera. FINDINGS: LUNGS/ PLEURA: Small left and moderate right pleural effusions with associated atelectasis. Patchy ai rspace opacities in the left upper lobe peribronchial bronchovascular distribution. Additional patchy airspace opacities within the left lower lobe. Right upper lobe patchy airspace opacities and/or ate lectasis. AIRWAY: Patent and unremarkable.. HEART: Mildly enlarged. No pericardial effusion. Coronary arterial calcifications. MEDIASTINUM: Multiple prominent mediastinal lymph nodes, likely reactive. VASCULATURE: No aortic aneurysm. MUSCULOSKELETAL: No acute osseous abnormalities SOFT TISSUES/LYMPH NODES: Unremarkable. LOWER NECK: Enlarged right thyroid lobe with substernal extension containing multiple dystrophic calc ifications. UPPER ABDOMEN: Cholecystectomy. Small hiatal hernia. IMPRESSION: 1. Multifocal patchy airspace opacities most prominent within the left upper lobe concerning for pneu monia. 2. Moderate right and small left pleural effusions with mild cardiomegaly. Correlate with BNP for con gestive heart failure. 3. Prominent mediastinal lymph nodes, likely reactive. 4. Enlarged right thyroid lobe with dystrophic calcifications with substernal extension. Consider fur ther evaluation with thyroid ultrasound.
--- NOTE | 2022-02-21 14:12 | P.CNPUL ---
History of Present Illness Consult date: 02/21/22 Requesting physician: Megha Oneal Reason for consult: dyspnea, cough, hypoxemia, pneumonia, abnormal CXR/CT Chief complaint: Shortness of breath, fluid retention. History of present illness: Pulmonary consultation dated 02/21/2022. 81-year-old female sent in by her primary care physician Dr. Oneal, for shortness of breath, and fluid retention. The patient was apparently seen by her primary care physician, and the patient received Lasix 20 mg, which did not seem to help. She apparently been getting worse with shortness of breath and fluid retention for 2 weeks or so. The daughter states that by that time, thinks it gone too far, and the Lasix did not really make much of a difference. The patient has a number of doctors including cardiology, nephrology, and endocrinology. The patient is a lifelong nonsmoker. The patient did not have a history of any lung issues. The patient was admitted with a diagnosis of possible pneumonia, UTI, hyponatremia, and CHF. Laboratory data includes a white count 8.3, hemoglobin 9.2, hematocrit 27.7, and a platelet count 265,000. Sed rate is 94. D-dimer was 1.64. Sodium 127, potassium 3.8, chlorides 85, CO2 19, anion gap 13, BUN 22, and creatinine 1.59. The patient's N-terminal proBNP was 16,200. The pro-calcitonin level was very normal at 0.09. Urine was yellow and turbid, with 2+ protein, moderate blood, positive LE, greater than 182 WBCs, many WBC clumps, but no bacteria. Coronavirus testing was negative. Legionella urinary antigen was also negative. 2 different chest x-rays, and the CAT scan of the chest were reviewed. I think the more likely diagnosis is fluid overload/CHF. There may be a component pneumonia. Review of Systems REVIEW OF SYSTEMS: CONSTITUTIONAL: Weakness, decreased appetite. NEUROLOGIC: [ Negative.] HEENT: [ Negative.] CARDIAC: Retention PULMONARY: Shortness of breath. GI: Negative : [Negative.] RHEUMATOLOGIC: [ Negative.] IMMUNOLOGIC: [ Negative.] ENDOCRINE: [Negative. ] DERMATOLOGIC: [Negative.] Past Medical History Past Medical History: Atrial Fibrillation, Diabetes Mellitus, Hypertension Additional Past Medical History / Comment(s): wound rt foot, wound to left pinkey, wound right abdominal wall, bilateral toes amputation, kidney failure, CHF, History of Any Multi-Drug Resistant Organisms: None Reported Past Surgical History: Cholecystectomy Additional Past Surgical History / Comment(s): hematoma removal abdomen Past Anesthesia/Blood Transfusion Reactions: No Reported Reaction Past Psychological History: No Psychological Hx Reported Smoking Status: Never smoker Past Alcohol Use History: None Reported Past Drug Use History: None Reported - Past Family History Sister(s) Family Medical History: Cancer Brother(s) Family Medical History: Cancer Medications and Allergies Home Medications Medication Instructions Recorded Confirmed Type Cyanocobalamin [Vitamin B-12] 500 mcg PO DAILY 06/28/21 02/20/22 History Rivaroxaban [Xarelto] 15 mg PO DAILY 06/28/21 02/20/22 History Simvastatin [Zocor] 20 mg PO DAILY 06/28/21 02/20/22 History Clopidogrel [Plavix] 75 mg PO DAILY 30 Days #30 tab 07/25/21 02/20/22 Rx Ciprofloxacin HCl [Cipro] 500 mg PO BID 12/02/21 02/20/22 History Insulin Lispro [humaLOG Kwikpen] See Protocol SQ TID-W/MEALS 12/02/21 02/20/22 History Folic Acid 1 mg PO DAILY 02/20/22 02/20/22 History Furosemide [Lasix] 20 mg PO DAILY 02/20/22 02/20/22 History Insulin Glargine,Hum.rec.anlog 12 units SQ HS 02/20/22 02/20/22 History [Lantus Solostar Pen] Insulin Lispro [humaLOG Kwikpen] 4 unit SQ AC-TID 02/20/22 02/20/22 History Omeprazole 20 mg PO DAILY 02/20/22 02/20/22 History Potassium Chloride ER [K-Dur 10] 10 meq PO DAILY@1500 02/20/22 02/20/22 History Sodium Bicarbonate Tab 650 mg PO DAILY@1500 02/20/22 02/20/22 History Tamsulosin HCl [Flomax] 0.4 mg PO DAILY 02/20/22 02/20/22 History Torsemide [Demadex] 5 mg PO DAILY 02/20/22 02/20/22 History amLODIPine [Norvasc] 10 mg PO DAILY 02/20/22 02/20/22 History hydrALAZINE HCL [Apresoline] 50 mg PO TID@0900,1500,2200 02/20/22 02/20/22 History Allergies Allergy/AdvReac Type Severity Reaction Status Date / Time aspirin Allergy Anaphylaxis Verified 02/20/22 21:11 Physical Exam Osteopathic Statement: *. No significant issues noted on an osteopathic s tructural exam other than those noted in the History and Physical/Consult. Vitals: Vital Signs Temp Pulse Pulse Resp BP BP Pulse Ox 02/21/22 11:38 50 L 16 02/21/22 11:29 52 L 16 02/21/22 08:00 97.5 F L 46 L 17 140/60 97 02/21/22 07:55 58 L 16 02/21/22 07:43 55 L 16 98 02/21/22 02:00 97.5 F L 48 L 16 127/58 96 02/20/22 22:28 97.6 F 53 L 17 117/63 97 02/20/22 21:32 62 16 128/77 96 02/20/22 21:00 62 16 134/67 98 02/20/22 20:00 97.9 F 74 17 140/69 97 02/20/22 19:19 22 02/20/22 19:06 97.7 F 47 L 22 130/72 96 Intake and Output 02/20/22 02/21/22 02/21/22 22:59 06:59 14:59 Output Total 600 Balance -600 Output: Urine 600 Other: Voiding Method Indwelling Catheter Weight 78.471 kg 78.471 kg No acute distress, oriented 3. Currently on room air. Room air saturation 97%. HEENT examination is grossly unremarkable. Neck supple. Full range of motion. No adenopathy thyromegaly or neck vein distention. Cardiovascular examination reveals an irregular rhythm and rate. S1-S2 normal. No S3 or S4. No discernible murmur noted. Heart sounds are distant. Heart rate 50 bpm. The patient is in atrial fibrillation. Lungs reveal bibasilar crackles. Scattered mild rhonchi. No wheezes. Breath sounds equal bilaterally. Abdomen soft bowel sounds are heard. No masses or tenderness. Extremities reveal mild 1+ edema. No cyanosis or clubbing. Skin is without rash or lesion. Neurologic examination is brief but nonfocal. Results - Laboratory Findings CBC and BMP: 02/20/22 19:24 02/20/22 19:24 PT/INR, D-dimer D-Dimer 1.64 mg/L FEU (<0.60) H 02/21/22 12:31 Abnormal lab findings: Abnormal Labs 02/20/22 02/20/22 02/20/22 19:24 19:24 19:45 RBC 3.06 L Hgb 9.2 L Hct 27.7 L Lymphocytes # 0.9 L ESR D-Dimer Sodium 127 L Chloride 95 L Carbon Dioxide 19 L BUN 22 H Creatinine 1.59 H Glucose 139 H POC Glucose (mg/dL) Calcium 7.3 L Phosphorus 2.3 L C-Reactive Protein Albumin 3.3 L Urine Appearance Turbid H Urine Protein 2+ H Urine Glucose (UA) 1+ H Urine Blood Moderate H Ur Leukocyte Esterase Large H Urine RBC 64 H Urine WBC >182 H Urine WBC Clumps Many H Hyaline Casts 16 H Urine Mucus Rare H Urine Yeast (Budding) Many H 02/20/22 02/21/22 02/21/22 20:29 07:00 11:18 RBC Hgb Hct Lymphocytes # ESR D-Dimer Sodium Chloride Carbon Dioxide BUN Creatinine Glucose POC Glucose (mg/dL) 126 H 171 H Calcium Phosphorus C-Reactive Protein 5.0 H Albumin Urine Appearance Urine Protein Urine Glucose (UA) Urine Blood Ur Leukocyte Esterase Urine RBC Urine WBC Urine WBC Clumps Hyaline Casts Urine Mucus Urine Yeast (Budding) 02/21/22 02/21/22 02/21/22 12:31 12:31 12:31 RBC Hgb Hct Lymphocytes # ESR 94 H D-Dimer 1.64 H Sodium Chloride Carbon Dioxide BUN Creatinine Glucose POC Glucose (mg/dL) Calcium Phosphorus C-Reactive Protein 4.7 H Albumin Urine Appearance Urine Protein Urine Glucose (UA) Urine Blood Ur Leukocyte Esterase Urine RBC Urine WBC Urine WBC Clumps Hyaline Casts Urine Mucus Urine Yeast (Budding) - Diagnostic Findings Chest x-ray: image reviewed CT scan - chest: image reviewed Assessment and Plan Assessment: Shortness of breath, for 2 weeks, progressive, most likely secondary to fluid overload/CHF, and possibly mild pneumonia. History of chronic atrial fibrillation. History of diabetes mellitus. History of hyperlipidemia. History of hypertension. History of chronic cellulitis and wounds lower extremities. Chronic kidney disease. Plan: Plan dated 02/20/2022. The patient's clinical picture is most consistent with CHF/fluid overload. There may be a component of pneumonia, although, I believe she doesn't really have pneumonia given her lack of pneumonic symptoms, and the fact that the patient's pro-calcitonin level is low. We will continue to follow make recommendations along the way. The patient has been seen by cardiology. The daughter was very helpful in providing the history on this patient. The patient's on azithromycin, and Rocephin. The patient's antibiotics can likely be scaled down. No additional recommendations are made. Prognosis is guarded. Time with Patient: Greater than 30
[2022-02-21 14:57] VITALS: BMI 27.9
[2022-02-21 16:54] LABS: Glucose,Whole Blood 251 mg/dL (70-110)
[2022-02-21] MEDS: POTASSIUM CHLORIDE ER 10 MEQ TAB.ER.PRT PO SCH (17:27)
[2022-02-21] MEDS: RIVAROXABAN 15 MG TAB PO SCH (17:27)
[2022-02-21] MEDS: SODIUM BICARBONATE TAB 650 MG TAB PO SCH (17:27)
[2022-02-21] MEDS: AZITHROMYCIN 500 MG TAB PO SCH (17:28)
[2022-02-21] MEDS: hydrALAZINE HCL 25 MG TAB PO SCH (20:07)
[2022-02-21] MEDS: INSULIN DETEMIR (LEVEMIR) 100 UNIT/ML SYR SQ SCH (20:38)
[2022-02-21 20:45] LABS: Glucose,Whole Blood 190 mg/dL (70-110)
--- NOTE | 2022-02-21 23:40 | P.CONS ---
History of Present Illness - Reason for Consult Consult date: 02/21/22 Possible pneumonia Requesting physician: Faviola Robert - Chief Complaint Weakness and increasing shortness of breath x few days - History of Present Illness Patient is a 81-year-old female with a past medical history significant for diabetes mellitus patient did have history of diabetic foot infection s/p left transmetatarsal amputation and did have history of osteomyelitis and nonhealing wound for the patient currently follow-up with us at [facility] wound care, patient presenting to the ER last evening for evaluation of increasing shortness of breath and this patient symptom has been getting worse for the last few days patient denies having any chest pain denies having any cough or sputum production denies any nausea no vomiting no abdominal pain or any diarrhea patient on presentation to the hospital was afebrile and no fever have been recorded subsequently patient is currently 98% on room air patient did have a normal white count did have elevated BUN and creatinine liver enzymes are normal procalcitonin normal she did have a positive UA with a culture is currently pending influenza PCR and Legionella antigen negative urine cultures currently pending patient did have a chest x-ray multifocal airspace opacity concerning for pneumonia she also have a CT of the chest multifocal airspace opacities moderate right and small left pleural effusion patient was started on Rocephin and Zithromax infectious disease was consulted for further management of antibiotic therapy and also for the left foot wound patient current local wound care has been Hydrofera Blue dressing patient did have some drainage to the left foot wound but denies any foul-smelling or pain to the left foot area Review of Systems Positive point has been mentioned in the HPI rest of the systems are negative Past Medical History Past Medical History: Atrial Fibrillation, Diabetes Mellitus, Hypertension Additional Past Medical History / Comment(s): wound rt foot, wound to left pinkey, wound right abdominal wall, bilateral toes amputation, kidney failure, CHF, History of Any Multi-Drug Resistant Organisms: None Reported Past Surgical History: Cholecystectomy Additional Past Surgical History / Comment(s): hematoma removal abdomen Past Anesthesia/Blood Transfusion Reactions: No Reported Reaction Past Psychological History: No Psychological Hx Reported Smoking Status: Never smoker Past Alcohol Use History: None Reported Past Drug Use History: None Reported - Past Family History Sister(s) Family Medical History: Cancer Brother(s) Family Medical History: Cancer Medications and Allergies Home Medications Medication Instructions Recorded Confirmed Type Cyanocobalamin [Vitamin B-12] 500 mcg PO DAILY 06/28/21 02/20/22 History Rivaroxaban [Xarelto] 15 mg PO DAILY 06/28/21 02/20/22 History Simvastatin [Zocor] 20 mg PO DAILY 06/28/21 02/20/22 History Clopidogrel [Plavix] 75 mg PO DAILY 30 Days #30 tab 07/25/21 02/20/22 Rx Insulin Lispro [humaLOG Kwikpen] See Protocol SQ TID-W/MEALS 12/02/21 02/20/22 History Folic Acid 1 mg PO DAILY 02/20/22 02/20/22 History Insulin Glargine,Hum.rec.anlog 12 units SQ HS 02/20/22 02/20/22 History [Lantus Solostar Pen] Insulin Lispro [humaLOG Kwikpen] 4 unit SQ AC-TID 02/20/22 02/20/22 History Omeprazole 20 mg PO DAILY 02/20/22 02/20/22 History Potassium Chloride ER [K-Dur 10] 10 meq PO DAILY@1500 02/20/22 02/20/22 History Sodium Bicarbonate Tab 650 mg PO DAILY@1500 02/20/22 02/20/22 History Tamsulosin HCl [Flomax] 0.4 mg PO DAILY 02/20/22 02/20/22 History Acetaminophen Tab [Tylenol] 650 mg PO Q4HR PRN tab 02/23/22 Rx Albuterol Inhaler [Ventolin Hfa 1 puff INHALATION QID #8 gm 02/23/22 Rx Inhaler] Budesonide-Formot 160-4.5 Mcg 2 puff INHALATION BID 30 Days 02/23/22 Rx [Symbicort 160-4.5 Mcg Inhaler] #10.2 gm Dapagliflozin Propanediol [Farxiga] 10 mg PO DAILY 30 Days #30 tab 02/23/22 Rx Fluconazole [Diflucan] 100 mg PO DAILY 7 Days #7 tab 02/23/22 Rx Furosemide [Lasix] 40 mg PO DAILY 30 Days #30 tab 02/23/22 Rx amLODIPine [Norvasc] 5 mg PO DAILY 30 Days #30 tab 02/23/22 Rx hydrALAZINE HCL [Apresoline] 25 mg PO BID 30 Days #60 tab 02/23/22 Rx Allergies Allergy/AdvReac Type Severity Reaction Status Date / Time aspirin Allergy Anaphylaxis Verified 02/20/22 21:11 Physical Exam Vitals: Vital Signs Temp Pulse Pulse Resp BP BP Pulse Ox 02/21/22 11:38 50 L 16 02/21/22 11:29 52 L 16 02/21/22 08:00 97.5 F L 46 L 17 140/60 97 02/21/22 07:55 58 L 16 02/21/22 07:43 55 L 16 98 02/21/22 02:00 97.5 F L 48 L 16 127/58 96 02/20/22 22:28 97.6 F 53 L 17 117/63 97 02/20/22 21:32 62 16 128/77 96 02/20/22 21:00 62 16 134/67 98 02/20/22 20:00 97.9 F 74 17 140/69 97 02/20/22 19:19 22 02/20/22 19:06 97.7 F 47 L 22 130/72 96 Intake and Output 02/20/22 02/21/22 02/21/22 22:59 06:59 14:59 Output Total 600 Balance -600 Output: Urine 600 Other: Voiding Method Indwelling Catheter Weight 78.471 kg 78.471 kg GENERAL DESCRIPTION: An elderly male lying in bed, no distress. No tachypnea or accessory muscle of respiration use. HEENT: Shows Pallor , no scleral icterus. Oral mucous membrane is dry. No pharyngeal erythema or thrush NECK: Trachea central, no thyromegaly. LUNGS: Unlabored breathing. Clear to auscultation anteriorly. No wheeze or crackle. HEART: S1, S2, regular rate and rhythm. No loud murmur ABDOMEN: Soft, no tenderness , guarding or rigidity, no organomegaly EXTREMITIES: Left foot wound/transmetatarsal amputation site with minimal slough tissue, no significant redness or foul-smelling drainage SKIN: No rash, no masses palpable. NEUROLOGICAL: The patient is awake, alert, oriented x3, mood and affect normal. Results CBC & Chem 7: 02/22/22 07:42 02/23/22 06:27 Labs: Abnormal Lab Results - Last 24 Hours (Table) 02/20/22 02/20/22 02/20/22 Range/Units 19:24 19:24 19:45 RBC 3.06 L (3.80-5.40) m/uL Hgb 9.2 L (11.4-16.0) gm/dL Hct 27.7 L (34.0-46.0) % Lymphocytes # 0.9 L (1.0-4.8) k/uL ESR (0-20) mm/hr D-Dimer (<0.60) mg/L FEU Sodium 127 L (137-145) mmol/L Chloride 95 L (98-107) mmol/L Carbon Dioxide 19 L (22-30) mmol/L BUN 22 H (7-17) mg/dL Creatinine 1.59 H (0.52-1.04) mg/dL Glucose 139 H (74-99) mg/dL POC Glucose (mg/dL) (70-110) mg/dL Calcium 7.3 L (8.4-10.2) mg/dL Phosphorus 2.3 L (2.5-4.5) mg/dL C-Reactive Protein (<1.0) mg/dL Albumin 3.3 L (3.5-5.0) g/dL Urine Appearance Turbid H (Clear) Urine Protein 2+ H (Negative) Urine Glucose (UA) 1+ H (Negative) Urine Blood Moderate H (Negative) Ur Leukocyte Esterase Large H (Negative) Urine RBC 64 H (0-5) /hpf Urine WBC >182 H (0-5) /hpf Urine WBC Clumps Many H (None) /hpf Hyaline Casts 16 H (0-2) /lpf Urine Mucus Rare H (None) /hpf Urine Yeast (Budding) Many H (None) /hpf 02/20/22 02/21/22 02/21/22 Range/Units 20:29 07:00 11:18 RBC (3.80-5.40) m/uL Hgb (11.4-16.0) gm/dL Hct (34.0-46.0) % Lymphocytes # (1.0-4.8) k/uL ESR (0-20) mm/hr D-Dimer (<0.60) mg/L FEU Sodium (137-145) mmol/L Chloride (98-107) mmol/L Carbon Dioxide (22-30) mmol/L BUN (7-17) mg/dL Creatinine (0.52-1.04) mg/dL Glucose (74-99) mg/dL POC Glucose (mg/dL) 126 H 171 H (70-110) mg/dL Calcium (8.4-10.2) mg/dL Phosphorus (2.5-4.5) mg/dL C-Reactive Protein 5.0 H (<1.0) mg/dL Albumin (3.5-5.0) g/dL Urine Appearance (Clear) Urine Protein (Negative) Urine Glucose (UA) (Negative) Urine Blood (Negative) Ur Leukocyte Esterase (Negative) Urine RBC (0-5) /hpf Urine WBC (0-5) /hpf Urine WBC Clumps (None) /hpf Hyaline Casts (0-2) /lpf Urine Mucus (None) /hpf Urine Yeast (Budding) (None) /hpf 02/21/22 02/21/22 02/21/22 Range/Units 12:31 12:31 12:31 RBC (3.80-5.40) m/uL Hgb (11.4-16.0) gm/dL Hct (34.0-46.0) % Lymphocytes # (1.0-4.8) k/uL ESR 94 H (0-20) mm/hr D-Dimer 1.64 H (<0.60) mg/L FEU Sodium (137-145) mmol/L Chloride (98-107) mmol/L Carbon Dioxide (22-30) mmol/L BUN (7-17) mg/dL Creatinine (0.52-1.04) mg/dL Glucose (74-99) mg/dL POC Glucose (mg/dL) (70-110) mg/dL Calcium (8.4-10.2) mg/dL Phosphorus (2.5-4.5) mg/dL C-Reactive Protein 4.7 H (<1.0) mg/dL Albumin (3.5-5.0) g/dL Urine Appearance (Clear) Urine Protein (Negative) Urine Glucose (UA) (Negative) Urine Blood (Negative) Ur Leukocyte Esterase (Negative) Urine RBC (0-5) /hpf Urine WBC (0-5) /hpf Urine WBC Clumps (None) /hpf Hyaline Casts (0-2) /lpf Urine Mucus (None) /hpf Urine Yeast (Budding) (None) /hpf Microbiology - Last 24 Hours (Table) 02/20/22 19:45 Urine Culture - Preliminary Urine,Voided Assessment and Plan (1) Diabetic foot ulcer Status: Acute Code(s): E11.621 - TYPE 2 DIABETES MELLITUS WITH FOOT ULCER; L97.509 - NON-PRESSURE CHRONIC ULCER OTH PRT UNSP FOOT W UNSP SEVERITY SNOMED Code(s): 827193677 (2) Urinary tract infection Status: Acute Code(s): N39.0 - URINARY TRACT INFECTION, SITE NOT SPECIFIED SNOMED Code(s): 72670945 Plan: 1patient presented to hospital with increasing shortness of breath more likely due to underlying fluid overload in this patient did have evidence of moderate pleural effusion clinically not behaving as pneumonia as the patient did not have any cough or sputum production and did have normal procalcitonin. 2patient with a positive UA some urinary symptoms concerning for a symptomatic UTI likely from enteric gram-negative pathogen. 3patient did have a chronic nonhealing wound to the left foot with no evidence of any cellulitis 4patient to continue with the Rocephin while waiting for the urine culture to be finalized 5-Local wound care to the left foot wound with the Medihoney followed by moist dressing change daily We will follow on clinical condition and cultures to further adjust medication if needed Thank you for this consultation will follow this patient along with you Time with Patient: Greater than 30
--- NOTE | 2022-02-21 23:49 | HP ---
HISTORY AND PHYSICAL CHIEF COMPLAINT: Shortness of breath. HISTORY OF PRESENT ILLNESS: This is an 81-year-old woman with a past medical history of multiple medical problems including atrial fibrillation, diabetes, recent foot surgery, being followed by Dr. Oneal in the outpatient, is complaining of shortness of breath. The patient was thought to have either CHF or multifocal pneumonia. The patient admitted for further evaluation and treatment. The white count is 8.3. COVID-19 was negative. The patient also has UTI also. There is no history of any fever, rigors, chills. PAST MEDICAL HISTORY: History of atrial fibrillation, diabetes, hypertension. Reviewed. MEDICATIONS: Home medications reviewed include Demadex, and dose and rest of medications reviewed. ALLERGIES: Aspirin. FAMILY HISTORY: History of cancer. SOCIAL HISTORY: No history of smoke or alcohol intake. REVIEW OF SYSTEMS: A 14-point review is negative as mentioned earlier. PHYSICAL EXAMINATION: VITAL SIGNS: Pulse is 46, blood pressure 140/80, respirations 17. HEENT: Conjunctivae normal. NECK: No JVD. CARDIOVASCULAR: S1, S2. RESPIRATIONS: Breath sounds diminished at the bases. A few scattered rhonchi and crackles. ABDOMEN: Soft, nontender. LEGS: No edema. NERVOUS SYSTEM: No focal deficits. SKIN: No ulcer, rash, bleeding. JOINTS: No active deforming arthropathy. LABS: WBC 8, hemoglobin 9.2, sodium 127. Rest of the labs are noted. ASSESSMENT: 1. Shortness of breath with possibly congestive heart failure acute exacerbation. 2. Possible multifocal pneumonia. 3. Acute urinary tract infection. 4. History of recent foot surgery. 5. Atrial fibrillation. 6. Diabetes mellitus, type 2. 7. Multiple medical issues. RECOMMENDATION AND DISCUSSION: This is an 81-year-old woman who presented with multiple complex medical issues. We will monitor the patient closely. Continue the current medications. Continue the cautious diuretics. The patient is also on empiric antibiotics. I would also order a CT scan of the chest. Cardiology has been consulted. I would also recommend Pulmonary and as well as Infectious Disease consultation also as mentioned earlier. COVID-19 is negative. Interstitial pneumonia need to be ruled out. Further recommendations to follow. MMODL / IJN: [id number] / MTDD
[2022-02-22 05:04] LABS: Mycoplasma IgG Antibody (EIA) 1.61 INDEX (<=0.90); Mycoplasma IgM Antibody 0.32 INDEX (<=0.90)
[2022-02-22 06:48] LABS: Glucose,Whole Blood 55 mg/dL (70-110)
[2022-02-22 07:28] LABS: Glucose,Whole Blood 73 mg/dL (70-110)
[2022-02-22] MEDS: INSULIN ASPART (NovoLOG) 100 UNIT/ML VIAL SQ SCH ×7 (07:28→20:48)
[2022-02-22] MEDS: CLOPIDOGREL 75 MG TAB PO SCH (07:44)
[2022-02-22] MEDS: FOLIC ACID 1 MG TAB PO SCH (07:44)
[2022-02-22] MEDS: PANTOPRAZOLE 40 MG TABLET PO SCH (07:44)
[2022-02-22] MEDS: hydrALAZINE HCL 25 MG TAB PO SCH ×2 (07:44→20:44)
[2022-02-22] MEDS: AZITHROMYCIN 500 MG TAB PO SCH (07:45)
[2022-02-22] MEDS: CYANOCOBALAMIN 500 MCG TAB PO SCH (07:45)
[2022-02-22] MEDS: amLODIPine 5 MG TAB PO SCH (07:45)
[2022-02-22] MEDS: ATORVASTATIN 10 MG TAB PO SCH (07:45)
[2022-02-22] MEDS: DAPAGLIFLOZIN PROPANEDIOL 10 MG TABLET PO SCH (07:45)
[2022-02-22] MEDS: TAMSULOSIN 0.4 MG CAP.ER.24H PO SCH (07:45)
[2022-02-22 08:25] LABS: ALT 16 U/L (4-34); AST 23 U/L (14-36); African American GFR (CKD) 32 (>60 ml/min/1.73 sqM); Albumin 3.1 g/dL (3.5-5.0); Alkaline Phosphatase 122 U/L (38-126); Anion Gap 11 mmol/L; Blood Urea Nitrogen 23 mg/dL (7-17); Calcium 7.5 mg/dL (8.4-10.2); Carbon Dioxide 22 mmol/L (22-30); Chloride 99 mmol/L (98-107); Globulin 3.2 g/dL; Glucose 89 mg/dL (74-99); Non-African American GFR(CKD) 28 (>60 ml/min/1.73 sqM); Potassium 3.7 mmol/L (3.5-5.1); Sodium 132 mmol/L (137-145); Total Bilirubin 0.4 mg/dL (0.2-1.3); Total Protein 6.3 g/dL (6.3-8.2)
[2022-02-22 08:53] LABS: Basophils % (A) 0 %; Eosinophils # (A) 0.1 k/uL (0-0.7); Eosinophils % (A) 1 %; HCT 27.1 % (34.0-46.0); HGB 8.7 gm/dL (11.4-16.0); Lymphocytes # (A) 0.6 k/uL (1.0-4.8); Lymphocytes % (A) 7 %; MCH 28.6 pg (25.0-35.0); MCHC 32.2 g/dL (31.0-37.0); Mean Platelet Volume 8.4; Monocytes # (A) 0.6 k/uL (0-1.0); Monocytes % (A) 7 %; Neutrophils # (A) 7.1 k/uL (1.3-7.7); Neutrophils % (A) 83 %; Platelet Count 243 k/uL (150-450); RBC 3.04 m/uL (3.80-5.40); RDW 14.1 % (11.5-15.5); WBC 8.5 k/uL (3.8-10.6)
[2022-02-22] MEDS: IPRATROPIUM-ALBUTEROL 3 ML NEB INHALATION SCH ×4 (09:00→20:47)
--- NOTE | 2022-02-22 09:05 | P.PN ---
Subjective This is a pleasant 81-year-old female past medical history significant for permanent atrial fibrillation on Xarelto, hypertension, type 2 diabetes, chronic kidney disease, hyperlipidemia, peripheral vascular disease s/p aortogram with CO2 angiography, bilateral iliofemoral angiogram with percutaneous balloon angioplasty of left posterior tibial artery with Dr. 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 She follows in the office with Dr. Ureña. We have been asked to see in consultation for congestive heart failure. Patient presents emergency department with worsening shortness of breath, lower extremity edema and 15-20lb gradual weight gain. She states over the past 2 weeks she has progressively been getting more shortness of breath, noticed her weight increased and LE edema has worsened. She presented to the ER for further evaluation. She was started on IV Lasix in the ER, her shortness of breath has improved. 02/22 Patient seen and examined at bedside, no acute distress. Her shortness of breath and lower extremity edema has improved. Overall her symptoms have improved, she states she is feeling much better. Patient with 1.8 L urine output over the past 24 hours. Weight stable. Echocardiogram revealed EF of 5055 percent, moderate pulmonary hypertension, moderate mitral and tricuspid regurgitation, RVSP of 46 mmHg Meds: IV Lasix 40 mg twice a day, amlodipine 5 mg daily, atorvastatin 10 mg daily, Plavix 75 mg daily, Xarelto 15 mg nightly Labs: Sodium 132, potassium 3.7, BUN 23, serum creatinine 1.7, hemoglobin 8.7 PHYSICAL EXAMINATION Blood pressure 126/59, heart 63, afebrile, saturation 95% room air CONSTITUTIONAL: No apparent distress. HEENT: Head is normocephalic. No JVD. CHEST EXAMINATION: Lungs are clear bilaterally to auscultation. HEART EXAMINATION: Irregular rate and rhythm. S1, S2 heard. Systolic ejection murmur at the apex ABDOMEN: Soft, nontender. Positive bowel sounds. EXTREMITIES: 2+ bilateral lower extremity edema. Left metatarsal amputation. NEUROLOGIC EXAMINATION: Patient is awake, alert and oriented x3. 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 Don on 07/22/2021 PLAN Transition to PO Lasix 40mg BID Monitor I/Os, daily weights Monitor renal function and electrolytes Continue home anticoagulation with Xarelto Continue amlodipine and hydralazine Not on beta prema secondary to bradycardia Not on ACEI/ARB secondary to kidney function Hopefully discharge in the next 24-48 hours Further recommendations based on clinical course Nurse practitioner note has been reviewed by physician. Signing provider agrees with the documented findings, assessment, and plan of care. Objective - Vital Signs Vital signs: Vital Signs Temp 98.6 F 02/22/22 07:31 Pulse 63 02/22/22 07:31 Resp 17 02/22/22 07:31 BP 126/59 02/22/22 07:31 Pulse Ox 95 02/22/22 07:31 FiO2 Intake & Output 02/21/22 02/22/22 02/22/22 18:59 06:59 18:59 Output Total 1800 Balance -1800 Weight 78.471 kg Output: Urine 1800 Other: Voiding Method External Catheter - Labs CBC & Chem 7: 02/22/22 07:42 02/22/22 07:42 Labs: Abnormal Lab Results - Last 24 Hours (Table) 02/20/22 02/21/22 02/21/22 Range/Units 20:30 09:51 11:18 RBC (3.80-5.40) m/uL Hgb (11.4-16.0) gm/dL Hct (34.0-46.0) % Lymphocytes # (1.0-4.8) k/uL ESR (0-20) mm/hr D-Dimer (<0.60) mg/L FEU Sodium (137-145) mmol/L BUN (7-17) mg/dL Creatinine (0.52-1.04) mg/dL POC Glucose (mg/dL) 171 H (70-110) mg/dL Hemoglobin A1c 8.9 H (0.0-6.0) % Calcium (8.4-10.2) mg/dL C-Reactive Protein (<1.0) mg/dL Albumin (3.5-5.0) g/dL Mycoplasma pneumon IgG 1.61 H (<=0.90) INDEX 02/21/22 02/21/22 02/21/22 Range/Units 12:31 12:31 12:31 RBC (3.80-5.40) m/uL Hgb (11.4-16.0) gm/dL Hct (34.0-46.0) % Lymphocytes # (1.0-4.8) k/uL ESR 94 H (0-20) mm/hr D-Dimer 1.64 H (<0.60) mg/L FEU Sodium (137-145) mmol/L BUN (7-17) mg/dL Creatinine (0.52-1.04) mg/dL POC Glucose (mg/dL) (70-110) mg/dL Hemoglobin A1c (0.0-6.0) % Calcium (8.4-10.2) mg/dL C-Reactive Protein 4.7 H (<1.0) mg/dL Albumin (3.5-5.0) g/dL Mycoplasma pneumon IgG (<=0.90) INDEX 02/21/22 02/21/22 02/22/22 Range/Units 16:53 20:30 06:45 RBC (3.80-5.40) m/uL Hgb (11.4-16.0) gm/dL Hct (34.0-46.0) % Lymphocytes # (1.0-4.8) k/uL ESR (0-20) mm/hr D-Dimer (<0.60) mg/L FEU Sodium (137-145) mmol/L BUN (7-17) mg/dL Creatinine (0.52-1.04) mg/dL POC Glucose (mg/dL) 251 H 190 H 55 L (70-110) mg/dL Hemoglobin A1c (0.0-6.0) % Calcium (8.4-10.2) mg/dL C-Reactive Protein (<1.0) mg/dL Albumin (3.5-5.0) g/dL Mycoplasma pneumon IgG (<=0.90) INDEX 02/22/22 02/22/22 Range/Units 07:42 07:42 RBC 3.04 L (3.80-5.40) m/uL Hgb 8.7 L (11.4-16.0) gm/dL Hct 27.1 L (34.0-46.0) % Lymphocytes # 0.6 L (1.0-4.8) k/uL ESR (0-20) mm/hr D-Dimer (<0.60) mg/L FEU Sodium 132 L (137-145) mmol/L BUN 23 H (7-17) mg/dL Creatinine 1.73 H (0.52-1.04) mg/dL POC Glucose (mg/dL) (70-110) mg/dL Hemoglobin A1c (0.0-6.0) % Calcium 7.5 L (8.4-10.2) mg/dL C-Reactive Protein (<1.0) mg/dL Albumin 3.1 L (3.5-5.0) g/dL Mycoplasma pneumon IgG (<=0.90) INDEX Microbiology - Last 24 Hours (Table) 02/20/22 20:50 Blood Culture - Preliminary Blood No Growth after 24 hours 02/20/22 20:40 Blood Culture - Preliminary Blood No Growth after 24 hours
[2022-02-22] MEDS: FUROSEMIDE 40 MG TAB PO SCH ×2 (10:35→15:14)
[2022-02-22 11:53] LABS: Glucose,Whole Blood 203 mg/dL (70-110)
--- NOTE | 2022-02-22 13:13 | P.PN ---
Subjective Progress Note Date: 02/22/22 Principal diagnosis: Shortness of breath. Pulmonary consultation dated 02/21/2022. 81-year-old female sent in by her primary care physician Dr. Oneal, for shortness of breath, and fluid retention. The patient was apparently seen by her primary care physician, and the patient received Lasix 20 mg, which did not seem to help. She apparently been getting worse with shortness of breath and fluid retention for 2 weeks or so. The daughter states that by that time, thinks it gone too far, and the Lasix did not really make much of a difference. The patient has a number of doctors including cardiology, nephrology, and endocrinology. The patient is a lifelong nonsmoker. The patient did not have a history of any lung issues. The patient was admitted with a diagnosis of possible pneumonia, UTI, hyponatremia, and CHF. Laboratory data includes a white count 8.3, hemoglobin 9.2, hematocrit 27.7, and a platelet count 265,000. Sed rate is 94. D-dimer was 1.64. Sodium 127, potassium 3.8, chlorides 85, CO2 19, anion gap 13, BUN 22, and creatinine 1.59. The patient's N-terminal proBNP was 16,200. The pro-calcitonin level was very normal at 0.09. Urine was yellow and turbid, with 2+ protein, moderate blood, positive LE, greater than 182 WBCs, many WBC clumps, but no bacteria. Coronavirus testing was negative. Legionella urinary antigen was also negative. 2 different chest x-rays, and the CAT scan of the chest were reviewed. I think the more likely diagnosis is fluid overload/CHF. There may be a component pneumonia. Progress note dated 02/22/2022. 81-year-old female seen yesterday in consultation. She is seen again today in room 450 currently on room air. She's not receiving any IV fluids. Her pro- calcitonin level was 0.09. Antibiotics can be discontinued. We did not feel strongly that the patient had an pneumonia. Currently laboratory data includes a white count 8.5, hemoglobin 8.7, hematocrit 27.1, and a platelet count 243,000. Sodium 132, potassium 3.7, chlorides 99, CO2 22, anion gap 11, BUN 23, and creatinine 1.73. Blood cultures are thus far negative. Chest x-ray in my opinion from February 21, is consistent with CHF. Objective - Vital Signs Vital signs: Vital Signs Temp 98.6 F 02/22/22 07:31 Pulse 56 L 02/22/22 12:48 Resp 17 02/22/22 07:31 BP 126/59 02/22/22 07:31 Pulse Ox 97 02/22/22 09:02 FiO2 Intake & Output 02/21/22 02/22/22 02/22/22 18:59 06:59 18:59 Output Total 1800 Balance -1800 Weight 78.471 kg Output: Urine 1800 Other: Voiding Method External Catheter - Exam No acute distress, oriented 3. Currently on room air. Room air saturation 97%. HEENT examination is grossly unremarkable. Neck supple. Full range of motion. No adenopathy thyromegaly or neck vein distention. Cardiovascular examination reveals an irregular rhythm and rate. S1-S2 normal. No S3 or S4. No discernible murmur noted. Heart sounds are distant. Heart rate 56 bpm. The patient is in atrial fibrillation. Lungs reveal bibasilar crackles. Scattered mild rhonchi. No wheezes. Breath sounds equal bilaterally. Abdomen soft bowel sounds are heard. No masses or tenderness. Extremities reveal mild 1+ edema. No cyanosis or clubbing. Skin is without rash or lesion. Neurologic examination is brief but nonfocal. - Labs CBC & Chem 7: 02/22/22 07:42 02/22/22 07:42 Labs: Abnormal Lab Results - Last 24 Hours (Table) 02/20/22 02/21/22 02/21/22 Range/Units 20:30 09:51 12:31 RBC (3.80-5.40) m/uL Hgb (11.4-16.0) gm/dL Hct (34.0-46.0) % Lymphocytes # (1.0-4.8) k/uL ESR 94 H (0-20) mm/hr D-Dimer (<0.60) mg/L FEU Sodium (137-145) mmol/L BUN (7-17) mg/dL Creatinine (0.52-1.04) mg/dL POC Glucose (mg/dL) (70-110) mg/dL Hemoglobin A1c 8.9 H (0.0-6.0) % Calcium (8.4-10.2) mg/dL C-Reactive Protein (<1.0) mg/dL Albumin (3.5-5.0) g/dL Mycoplasma pneumon IgG 1.61 H (<=0.90) INDEX 02/21/22 02/21/22 02/21/22 Range/Units 12:31 12:31 16:53 RBC (3.80-5.40) m/uL Hgb (11.4-16.0) gm/dL Hct (34.0-46.0) % Lymphocytes # (1.0-4.8) k/uL ESR (0-20) mm/hr D-Dimer 1.64 H (<0.60) mg/L FEU Sodium (137-145) mmol/L BUN (7-17) mg/dL Creatinine (0.52-1.04) mg/dL POC Glucose (mg/dL) 251 H (70-110) mg/dL Hemoglobin A1c (0.0-6.0) % Calcium (8.4-10.2) mg/dL C-Reactive Protein 4.7 H (<1.0) mg/dL Albumin (3.5-5.0) g/dL Mycoplasma pneumon IgG (<=0.90) INDEX 02/21/22 02/22/22 02/22/22 Range/Units 20:30 06:45 07:42 RBC (3.80-5.40) m/uL Hgb (11.4-16.0) gm/dL Hct (34.0-46.0) % Lymphocytes # (1.0-4.8) k/uL ESR (0-20) mm/hr D-Dimer (<0.60) mg/L FEU Sodium 132 L (137-145) mmol/L BUN 23 H (7-17) mg/dL Creatinine 1.73 H (0.52-1.04) mg/dL POC Glucose (mg/dL) 190 H 55 L (70-110) mg/dL Hemoglobin A1c (0.0-6.0) % Calcium 7.5 L (8.4-10.2) mg/dL C-Reactive Protein (<1.0) mg/dL Albumin 3.1 L (3.5-5.0) g/dL Mycoplasma pneumon IgG (<=0.90) INDEX 02/22/22 02/22/22 Range/Units 07:42 11:52 RBC 3.04 L (3.80-5.40) m/uL Hgb 8.7 L (11.4-16.0) gm/dL Hct 27.1 L (34.0-46.0) % Lymphocytes # 0.6 L (1.0-4.8) k/uL ESR (0-20) mm/hr D-Dimer (<0.60) mg/L FEU Sodium (137-145) mmol/L BUN (7-17) mg/dL Creatinine (0.52-1.04) mg/dL POC Glucose (mg/dL) 203 H (70-110) mg/dL Hemoglobin A1c (0.0-6.0) % Calcium (8.4-10.2) mg/dL C-Reactive Protein (<1.0) mg/dL Albumin (3.5-5.0) g/dL Mycoplasma pneumon IgG (<=0.90) INDEX Microbiology - Last 24 Hours (Table) 02/20/22 19:45 Urine Culture - Preliminary Urine,Voided Yeast species 02/20/22 20:50 Blood Culture - Preliminary Blood No Growth after 24 hours 02/20/22 20:40 Blood Culture - Preliminary Blood No Growth after 24 hours Assessment and Plan Assessment: Shortness of breath, for 2 weeks, progressive, most likely secondary to fluid overload/CHF. Seriously doubt pneumonia. History of chronic atrial fibrillation. History of diabetes mellitus. History of hyperlipidemia. History of hypertension. History of chronic cellulitis and wounds lower extremities. Chronic kidney disease. Plan: Plan dated 02/20/2022. The patient's clinical picture is most consistent with CHF/fluid overload. There may be a component of pneumonia, although, I believe she doesn't really have pneumonia given her lack of pneumonic symptoms, and the fact that the patient's pro-calcitonin level is low. We will continue to follow make recommendations along the way. The patient has been seen by cardiology. The daughter was very helpful in providing the history on this patient. The patient's on azithromycin, and Rocephin. The patient's antibiotics can likely be scaled down. No additional recommendations are made. Prognosis is guarded. Plan dated 02/22/2022. The patient's pro-calcitonin level was 0.09. Antibiotics can be discontinued. We don't believe the patient has pneumonia. Clinically, she's very stable. She is laying flat on her back, without any respiratory distress. She's not requiring any oxygen therapy. Room air saturations are 97%. We well continue to follow and make recommendations where appropriate. Prognosis is guarded. Time with Patient: Less than 30
--- NOTE | 2022-02-22 14:11 | XR ---
EXAMINATION TYPE: XR chest 1V portable DATE OF EXAM: 02/22/2022 11:07 AM COMPARISON: Chest radiograph from one day prior. TECHNIQUE: XR chest 1V portable Portable AP radiograph of the chest. CLINICAL INDICATION:Female, 81 years old with history of short of breath; FINDINGS: Lungs/Pleura: Improved aeration of the lungs on today's exam. There is no evidence of pleural effusio n, , or pneumothorax. Pulmonary vascularity: Unremarkable. Heart/mediastinum: Cardiomediastinal silhouette is unremarkable. Musculoskeletal: No acute osseous pathology. IMPRESSION: Improved aeration of the right lung on today's exam. Continued attention on follow-up imaging.
[2022-02-22] MEDS: FLUCONAZOLE 100 MG TAB PO SCH (15:07)
[2022-02-22] MEDS: POTASSIUM CHLORIDE ER 10 MEQ TAB.ER.PRT PO SCH (15:14)
[2022-02-22] MEDS: SODIUM BICARBONATE TAB 650 MG TAB PO SCH (15:14)
--- NOTE | 2022-02-22 16:02 | P.PN ---
Subjective Progress Note Date: 02/22/22 This is an 81-year-old female who was recently admitted with increasing shortness of breath and thought to have CHF exacerbation or multifocal pneumonia and is being closely monitored. Multiple medical consultations including cardio and infectious disease following. Patient is continued on antifungal's in the form of fluconazole. Patient has been transitioned oral Lasix 40 mg twice daily. Kidney function slightly elevated although stable at 1.73. Recommend follow-up labs in the a.m. Hemoglobin is stable at 8.7 and no white count with no fevers noted. Patient denies worsening shortness of breath or chest pains at this time. Patient reports tolerating diet with no reports of nausea or vomi ting noted. Daughter at the bedside with questions and concerns were answered. Will follow-up with chest x-ray with possible discharge in 24 hours. Encourage increased activity as tolerated and patient reports she has been up and walking. Review of systems: Constitutional: No reports of fatigue, fever, or chills Cardiovascular: No reports of chest pain or palpitations Respiratory: No reports of worsening shortness of breath or cough GI: No reports of nausea, no reports of of vomiting, no reports of diarrhea : No reports of dysuria or retention Neurovascular: No reports of generalized weakness All medications have been reviewed Active Medications Acetaminophen (Acetaminophen Tab 325 Mg Tab) 650 mg PO Q4HR PRN PRN Reason: Fever and/ or Pain Last Admin: 02/20/22 21:03 Dose: 650 mg Albuterol Sulfate (Albuterol Nebulized 2.5 Mg/3 Ml) 2.5 mg INHALATION Q2H PRN PRN Reason: Shortness Of Breath Or Wheezing Albuterol/Ipratropium (Ipratropium-Albuterol 3 Ml Neb) 3 ml INHALATION RT-QID [facility] Last Admin: 02/22/22 12:39 Dose: 3 ml Amlodipine Besylate (Amlodipine 5 Mg Tab) 5 mg PO DAILY [facility] Last Admin: 02/22/22 07:45 Dose: 5 mg Atorvastatin Calcium (Atorvastatin 10 Mg Tab) 10 mg PO DAILY [facility] Last Admin: 02/22/22 07:45 Dose: 10 mg Clopidogrel Bisulfate (Clopidogrel 75 Mg Tab) 75 mg PO DAILY [facility] Last Admin: 02/22/22 07:44 Dose: 75 mg Cyanocobalamin (Cyanocobalamin 500 Mcg Tab) 500 mcg PO DAILY [facility] Last Admin: 02/22/22 07:45 Dose: 500 mcg Dapagliflozin (Dapagliflozin Propanediol 10 Mg Tablet) 10 mg PO DAILY [facility] Last Admin: 02/22/22 07:45 Dose: 10 mg Dextrose/Water (Dextrose 50% Syringe 50 Ml) 25 ml IVP PER PROTOCOL PRN; Protocol PRN Reason: Hypoglycemia Dextrose/Water (Dextrose 50% Syringe 50 Ml) 50 ml IVP PER PROTOCOL PRN; Protocol PRN Reason: Hypoglycemia Fluconazole (Fluconazole 100 Mg Tab) 100 mg PO DAILY [facility]; Protocol Last Admin: 02/22/22 15:07 Dose: 100 mg Folic Acid (Folic Acid 1 Mg Tab) 1 mg PO DAILY [facility] Last Admin: 02/22/22 07:44 Dose: 1 mg Furosemide (Furosemide 40 Mg Tab) 40 mg PO BID@0900,1600 [facility] Last Admin: 02/22/22 15:14 Dose: 40 mg Hydralazine HCl (Hydralazine Hcl 25 Mg Tab) 25 mg PO BID [facility] Last Admin: 02/22/22 07:44 Dose: 25 mg Insulin Aspart (Insulin Aspart (Novolog) 100 Unit/Ml Vial) 0 unit SQ ACHS [facility]; Protocol Last Admin: 02/22/22 12:04 Dose: Not Given Insulin Aspart (Insulin Aspart (Novolog) 100 Unit/Ml Vial) 4 unit SQ AC-TID [facility] Last Admin: 02/22/22 12:08 Dose: 4 unit Insulin Detemir (Insulin Detemir (Levemir) 100 Unit/Ml Syr) 12 unit SQ HS [facility] Last Admin: 02/21/22 20:38 Dose: 12 unit Miscellaneous Information (Pneumonia Protocol Utilized 1 Each Misc) 1 each PO ONCE PRN PRN Reason: Per Protocol Pantoprazole Sodium (Pantoprazole 40 Mg Tablet) 40 mg PO AC-BRKFST [facility] Last Admin: 02/22/22 07:44 Dose: 40 mg Potassium Chloride (Potassium Chloride Er 10 Meq Tab.Er.Prt) 10 meq PO DAILY@1500 [facility] Last Admin: 02/22/22 15:14 Dose: 10 meq Rivaroxaban (Rivaroxaban 15 Mg Tab) 15 mg PO W/SUPPER [facility]; Protocol Last Admin: 02/21/22 17:27 Dose: 15 mg Sodium Bicarbonate (Sodium Bicarbonate Tab 650 Mg Tab) 650 mg PO DAILY@1500 [facility] Last Admin: 02/22/22 15:14 Dose: 650 mg Tamsulosin HCl (Tamsulosin 0.4 Mg Cap.Er.24h) 0.4 mg PO DAILY [facility] Last Admin: 02/22/22 07:45 Dose: 0.4 mg PHYSICAL EXAMINATION: GENERAL: The patient is alert and oriented x4, Well developed, well nourished. HEENT: Pupils are round and equally reacting to light. EOMI. no scleral icterus. No conjunctival pallor. Normocephalic, atraumatic. No pharyngeal erythema. No thyromegaly. CARDIOVASCULAR: S1 and S2 muffled PULMONARY: diminished breath sounds bilaterally with no wheezing or rhonchi noted. ABDOMEN: soft. Nontender on exam. obese. non-distended, normoactive bowel sounds. No palpable organomegaly. MUSCULOSKELETAL: No joint swelling or deformity. EXTREMITIES: No cyanosis, clubbing, or pedal edema. NEUROLOGICAL: Gross neurological examination did not reveal any focal deficits. SKIN: No rashes. Assessment: Shortness of breath with possible congestive heart failure acute exacerbation Possible multifocal pneumonia, although unlikely per pulmonary Acute urinary tract infection, present on admission History of recent foot surgery Atrial fibrillation history Line diabetes mellitus, type II GI prophylaxis DVT prophylaxis No code Plan: Recommend to continue with current medications and management with pulmonary, cardiology, and infectious disease following. Patient is off antibiotics and is afebrile. Patient has been transitioned oral Lasix 40 mg twice daily. Kidney function slightly elevated although stable at 1.73 recommend repeat labs. Encouraged increase activity as tolerated and patient reports she has been up and walking. Patient does have a walker at the bedside. Daughter at the bedside and questions and concerns were answered. Will follow-up with repeat labs and a chest x-ray in the a.m with possible discharge in 24 hours. Due to multiple complex medical issues, prognosis is guarded. The impression and plan of care has been dictated by Mildred Swift nurse practitioner as directed. Dr. Jakob MD I have performed a history and examination and MDM of this patient, discussed the same with the dictator, and agree with the dictator's assessment and plan as written ,documented as a scribe. Based on total visit time, I have performed more than 50% of the visit. Any additional findings or plans will be noted. Objective - Vital Signs Vital signs: Vital Signs Temp 98.5 F 02/22/22 14:00 Pulse 66 10/05/22 14:00 Resp 17 02/22/22 14:00 BP 130/62 02/22/22 14:00 Pulse Ox 97 02/22/22 14:00 FiO2 Intake & Output 02/21/22 02/22/22 02/22/22 18:59 06:59 18:59 Output Total 1800 Balance -1800 Weight 78.471 kg Output: Urine 1800 Other: Voiding Method External Catheter Toilet External Catheter - Labs CBC & Chem 7: 02/22/22 07:42 02/22/22 07:42 Labs: Abnormal Lab Results - Last 24 Hours (Table) 02/20/22 02/21/22 02/21/22 Range/Units 20:30 16:53 20:30 RBC (3.80-5.40) m/uL Hgb (11.4-16.0) gm/dL Hct (34.0-46.0) % Lymphocytes # (1.0-4.8) k/uL Sodium (137-145) mmol/L BUN (7-17) mg/dL Creatinine (0.52-1.04) mg/dL POC Glucose (mg/dL) 251 H 190 H (70-110) mg/dL Calcium (8.4-10.2) mg/dL Albumin (3.5-5.0) g/dL Mycoplasma pneumon IgG 1.61 H (<=0.90) INDEX 02/22/22 02/22/22 02/22/22 Range/Units 06:45 07:42 07:42 RBC 3.04 L (3.80-5.40) m/uL Hgb 8.7 L (11.4-16.0) gm/dL Hct 27.1 L (34.0-46.0) % Lymphocytes # 0.6 L (1.0-4.8) k/uL Sodium 132 L (137-145) mmol/L BUN 23 H (7-17) mg/dL Creatinine 1.73 H (0.52-1.04) mg/dL POC Glucose (mg/dL) 55 L (70-110) mg/dL Calcium 7.5 L (8.4-10.2) mg/dL Albumin 3.1 L (3.5-5.0) g/dL Mycoplasma pneumon IgG (<=0.90) INDEX 02/22/22 Range/Units 11:52 RBC (3.80-5.40) m/uL Hgb (11.4-16.0) gm/dL Hct (34.0-46.0) % Lymphocytes # (1.0-4.8) k/uL Sodium (137-145) mmol/L BUN (7-17) mg/dL Creatinine (0.52-1.04) mg/dL POC Glucose (mg/dL) 203 H (70-110) mg/dL Calcium (8.4-10.2) mg/dL Albumin (3.5-5.0) g/dL Mycoplasma pneumon IgG (<=0.90) INDEX Microbiology - Last 24 Hours (Table) 02/20/22 19:45 Urine Culture - Preliminary Urine,Voided Yeast species 02/20/22 20:50 Blood Culture - Preliminary Blood No Growth after 24 hours 02/20/22 20:40 Blood Culture - Preliminary Blood No Growth after 24 hours
--- NOTE | 2022-02-22 16:02 | P.PN ---
Subjective Progress Note Date: 02/22/22 This is an 81-year-old female who was recently admitted with increasing shortness of breath and thought to have CHF exacerbation or multifocal pneumonia and is being closely monitored. Multiple medical consultations including cardio and infectious disease following. Patient is continued on antifungal's in the form of fluconazole. Patient has been transitioned oral Lasix 40 mg twice daily. Kidney function slightly elevated although stable at 1.73. Recommend follow-up labs in the a.m. Hemoglobin is stable at 8.7 and no white count with no fevers noted. Patient denies worsening shortness of breath or chest pains at this time. Patient reports tolerating diet with no reports of nausea or vomi ting noted. Daughter at the bedside with questions and concerns were answered. Will follow-up with chest x-ray with possible discharge in 24 hours. Encourage increased activity as tolerated and patient reports she has been up and walking. Review of systems: Constitutional: No reports of fatigue, fever, or chills Cardiovascular: No reports of chest pain or palpitations Respiratory: No reports of worsening shortness of breath or cough GI: No reports of nausea, no reports of of vomiting, no reports of diarrhea : No reports of dysuria or retention Neurovascular: No reports of generalized weakness All medications have been reviewed Active Medications Acetaminophen (Acetaminophen Tab 325 Mg Tab) 650 mg PO Q4HR PRN PRN Reason: Fever and/ or Pain Last Admin: 02/20/22 21:03 Dose: 650 mg Albuterol Sulfate (Albuterol Nebulized 2.5 Mg/3 Ml) 2.5 mg INHALATION Q2H PRN PRN Reason: Shortness Of Breath Or Wheezing Albuterol/Ipratropium (Ipratropium-Albuterol 3 Ml Neb) 3 ml INHALATION RT-QID [facility] Last Admin: 02/22/22 12:39 Dose: 3 ml Amlodipine Besylate (Amlodipine 5 Mg Tab) 5 mg PO DAILY [facility] Last Admin: 02/22/22 07:45 Dose: 5 mg Atorvastatin Calcium (Atorvastatin 10 Mg Tab) 10 mg PO DAILY [facility] Last Admin: 02/22/22 07:45 Dose: 10 mg Clopidogrel Bisulfate (Clopidogrel 75 Mg Tab) 75 mg PO DAILY [facility] Last Admin: 02/22/22 07:44 Dose: 75 mg Cyanocobalamin (Cyanocobalamin 500 Mcg Tab) 500 mcg PO DAILY [facility] Last Admin: 02/22/22 07:45 Dose: 500 mcg Dapagliflozin (Dapagliflozin Propanediol 10 Mg Tablet) 10 mg PO DAILY [facility] Last Admin: 02/22/22 07:45 Dose: 10 mg Dextrose/Water (Dextrose 50% Syringe 50 Ml) 25 ml IVP PER PROTOCOL PRN; Protocol PRN Reason: Hypoglycemia Dextrose/Water (Dextrose 50% Syringe 50 Ml) 50 ml IVP PER PROTOCOL PRN; Protocol PRN Reason: Hypoglycemia Fluconazole (Fluconazole 100 Mg Tab) 100 mg PO DAILY [facility]; Protocol Last Admin: 02/22/22 15:07 Dose: 100 mg Folic Acid (Folic Acid 1 Mg Tab) 1 mg PO DAILY [facility] Last Admin: 02/22/22 07:44 Dose: 1 mg Furosemide (Furosemide 40 Mg Tab) 40 mg PO BID@0900,1600 [facility] Last Admin: 02/22/22 15:14 Dose: 40 mg Hydralazine HCl (Hydralazine Hcl 25 Mg Tab) 25 mg PO BID [facility] Last Admin: 02/22/22 07:44 Dose: 25 mg Insulin Aspart (Insulin Aspart (Novolog) 100 Unit/Ml Vial) 0 unit SQ ACHS [facility]; Protocol Last Admin: 02/22/22 12:04 Dose: Not Given Insulin Aspart (Insulin Aspart (Novolog) 100 Unit/Ml Vial) 4 unit SQ AC-TID [facility] Last Admin: 02/22/22 12:08 Dose: 4 unit Insulin Detemir (Insulin Detemir (Levemir) 100 Unit/Ml Syr) 12 unit SQ HS [facility] Last Admin: 02/21/22 20:38 Dose: 12 unit Miscellaneous Information (Pneumonia Protocol Utilized 1 Each Misc) 1 each PO ONCE PRN PRN Reason: Per Protocol Pantoprazole Sodium (Pantoprazole 40 Mg Tablet) 40 mg PO AC-BRKFST [facility] Last Admin: 02/22/22 07:44 Dose: 40 mg Potassium Chloride (Potassium Chloride Er 10 Meq Tab.Er.Prt) 10 meq PO DAILY@1500 [facility] Last Admin: 02/22/22 15:14 Dose: 10 meq Rivaroxaban (Rivaroxaban 15 Mg Tab) 15 mg PO W/SUPPER [facility]; Protocol Last Admin: 02/21/22 17:27 Dose: 15 mg Sodium Bicarbonate (Sodium Bicarbonate Tab 650 Mg Tab) 650 mg PO DAILY@1500 [facility] Last Admin: 02/22/22 15:14 Dose: 650 mg Tamsulosin HCl (Tamsulosin 0.4 Mg Cap.Er.24h) 0.4 mg PO DAILY [facility] Last Admin: 02/22/22 07:45 Dose: 0.4 mg PHYSICAL EXAMINATION: GENERAL: The patient is alert and oriented x4, Well developed, well nourished. HEENT: Pupils are round and equally reacting to light. EOMI. no scleral icterus. No conjunctival pallor. Normocephalic, atraumatic. No pharyngeal erythema. No thyromegaly. CARDIOVASCULAR: S1 and S2 muffled PULMONARY: diminished breath sounds bilaterally with no wheezing or rhonchi noted. ABDOMEN: soft. Nontender on exam. obese. non-distended, normoactive bowel sounds. No palpable organomegaly. MUSCULOSKELETAL: No joint swelling or deformity. EXTREMITIES: No cyanosis, clubbing, or pedal edema. NEUROLOGICAL: Gross neurological examination did not reveal any focal deficits. SKIN: No rashes. Assessment: Shortness of breath with possible congestive heart failure acute exacerbation Possible multifocal pneumonia, although unlikely per pulmonary Acute urinary tract infection, present on admission History of recent foot surgery Atrial fibrillation history Line diabetes mellitus, type II GI prophylaxis DVT prophylaxis No code Plan: Recommend to continue with current medications and management with pulmonary, cardiology, and infectious disease following. Patient is off antibiotics and is afebrile. Patient has been transitioned oral Lasix 40 mg twice daily. Kidney function slightly elevated although stable at 1.73 recommend repeat labs. Encouraged increase activity as tolerated and patient reports she has been up and walking. Patient does have a walker at the bedside. Daughter at the bedside and questions and concerns were answered. Will follow-up with repeat labs and a chest x-ray in the a.m with possible discharge in 24 hours. Due to multiple complex medical issues, prognosis is guarded. The impression and plan of care has been dictated by Mildred Swift nurse practitioner as directed. Dr. Jakob MD I have performed a history and examination and MDM of this patient, discussed the same with the dictator, and agree with the dictator's assessment and plan as written ,documented as a scribe. Based on total visit time, I have performed more than 50% of the visit. Any additional findings or plans will be noted. Objective - Vital Signs Vital signs: Vital Signs Temp 98.5 F 02/22/22 14:00 Pulse 66 10/05/22 14:00 Resp 17 02/22/22 14:00 BP 130/62 02/22/22 14:00 Pulse Ox 97 02/22/22 14:00 FiO2 Intake & Output 02/21/22 02/22/22 02/22/22 18:59 06:59 18:59 Output Total 1800 Balance -1800 Weight 78.471 kg Output: Urine 1800 Other: Voiding Method External Catheter Toilet External Catheter - Labs CBC & Chem 7: 02/22/22 07:42 02/22/22 07:42 Labs: Abnormal Lab Results - Last 24 Hours (Table) 02/20/22 02/21/22 02/21/22 Range/Units 20:30 16:53 20:30 RBC (3.80-5.40) m/uL Hgb (11.4-16.0) gm/dL Hct (34.0-46.0) % Lymphocytes # (1.0-4.8) k/uL Sodium (137-145) mmol/L BUN (7-17) mg/dL Creatinine (0.52-1.04) mg/dL POC Glucose (mg/dL) 251 H 190 H (70-110) mg/dL Calcium (8.4-10.2) mg/dL Albumin (3.5-5.0) g/dL Mycoplasma pneumon IgG 1.61 H (<=0.90) INDEX 02/22/22 02/22/22 02/22/22 Range/Units 06:45 07:42 07:42 RBC 3.04 L (3.80-5.40) m/uL Hgb 8.7 L (11.4-16.0) gm/dL Hct 27.1 L (34.0-46.0) % Lymphocytes # 0.6 L (1.0-4.8) k/uL Sodium 132 L (137-145) mmol/L BUN 23 H (7-17) mg/dL Creatinine 1.73 H (0.52-1.04) mg/dL POC Glucose (mg/dL) 55 L (70-110) mg/dL Calcium 7.5 L (8.4-10.2) mg/dL Albumin 3.1 L (3.5-5.0) g/dL Mycoplasma pneumon IgG (<=0.90) INDEX 02/22/22 Range/Units 11:52 RBC (3.80-5.40) m/uL Hgb (11.4-16.0) gm/dL Hct (34.0-46.0) % Lymphocytes # (1.0-4.8) k/uL Sodium (137-145) mmol/L BUN (7-17) mg/dL Creatinine (0.52-1.04) mg/dL POC Glucose (mg/dL) 203 H (70-110) mg/dL Calcium (8.4-10.2) mg/dL Albumin (3.5-5.0) g/dL Mycoplasma pneumon IgG (<=0.90) INDEX Microbiology - Last 24 Hours (Table) 02/20/22 19:45 Urine Culture - Preliminary Urine,Voided Yeast species 02/20/22 20:50 Blood Culture - Preliminary Blood No Growth after 24 hours 02/20/22 20:40 Blood Culture - Preliminary Blood No Growth after 24 hours
[2022-02-22 16:36] LABS: Glucose,Whole Blood 268 mg/dL (70-110)
[2022-02-22] MEDS: RIVAROXABAN 15 MG TAB PO SCH (16:58)
[2022-02-22] MEDS: INSULIN DETEMIR (LEVEMIR) 100 UNIT/ML SYR SQ SCH (20:44)
[2022-02-22 20:49] LABS: Glucose,Whole Blood 145 mg/dL (70-110)
--- NOTE | 2022-02-22 22:35 | P.PN ---
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 On today's evaluation that is 02/22/2022, the patient is afebrile patient is breathing more comfortably, the patient denies having any chest pain shortness of breath or cough currently on room air. Denies having any nausea no vomiting no abdominal pain or diarrhea Objective - Vital Signs Vital signs: Vital Signs Temp 98.5 F 02/22/22 14:00 Pulse 66 02/22/22 14:00 Resp 17 02/22/22 14:00 BP 130/62 02/22/22 14:00 Pulse Ox 97 02/22/22 14:00 FiO2 Intake & Output 02/21/22 02/22/22 02/22/22 18:59 06:59 18:59 Output Total 1800 Balance -1800 Weight 78.471 kg Output: Urine 1800 Other: Voiding Method External Catheter Toilet External Catheter - Exam GENERAL DESCRIPTION: An elderly female lying in bed in no distress RESPIRATORY SYSTEM: Unlabored breathing , decreased breath sounds at bases HEART: S1 S2 regular rate and rhythm , ABDOMEN: Soft , no tenderness EXTREMITIES: Left foot wound is currently dressed no drainage on the dressing - Labs CBC & Chem 7: 02/22/22 07:42 02/22/22 07:42 Labs: Abnormal Lab Results - Last 24 Hours (Table) 02/20/22 02/21/22 02/21/22 Range/Units 20:30 09:51 16:53 RBC (3.80-5.40) m/uL Hgb (11.4-16.0) gm/dL Hct (34.0-46.0) % Lymphocytes # (1.0-4.8) k/uL Sodium (137-145) mmol/L BUN (7-17) mg/dL Creatinine (0.52-1.04) mg/dL POC Glucose (mg/dL) 251 H (70-110) mg/dL Hemoglobin A1c 8.9 H (0.0-6.0) % Calcium (8.4-10.2) mg/dL Albumin (3.5-5.0) g/dL Mycoplasma pneumon IgG 1.61 H (<=0.90) INDEX 02/21/22 02/22/22 02/22/22 Range/Units 20:30 06:45 07:42 RBC (3.80-5.40) m/uL Hgb (11.4-16.0) gm/dL Hct (34.0-46.0) % Lymphocytes # (1.0-4.8) k/uL Sodium 132 L (137-145) mmol/L BUN 23 H (7-17) mg/dL Creatinine 1.73 H (0.52-1.04) mg/dL POC Glucose (mg/dL) 190 H 55 L (70-110) mg/dL Hemoglobin A1c (0.0-6.0) % Calcium 7.5 L (8.4-10.2) mg/dL Albumin 3.1 L (3.5-5.0) g/dL Mycoplasma pneumon IgG (<=0.90) INDEX 02/22/22 02/22/22 Range/Units 07:42 11:52 RBC 3.04 L (3.80-5.40) m/uL Hgb 8.7 L (11.4-16.0) gm/dL Hct 27.1 L (34.0-46.0) % Lymphocytes # 0.6 L (1.0-4.8) k/uL Sodium (137-145) mmol/L BUN (7-17) mg/dL Creatinine (0.52-1.04) mg/dL POC Glucose (mg/dL) 203 H (70-110) mg/dL Hemoglobin A1c (0.0-6.0) % Calcium (8.4-10.2) mg/dL Albumin (3.5-5.0) g/dL Mycoplasma pneumon IgG (<=0.90) INDEX Microbiology - Last 24 Hours (Table) 02/20/22 19:45 Urine Culture - Preliminary Urine,Voided Yeast species 02/20/22 20:50 Blood Culture - Preliminary Blood No Growth after 24 hours 02/20/22 20:40 Blood Culture - Preliminary Blood No Growth after 24 hours Assessment and Plan (1) Urinary tract infection Current Visit: Yes Status: Acute Code(s): N39.0 - URINARY TRACT INFECTION, SITE NOT SPECIFIED SNOMED Code(s): 23160419 (2) Diabetic foot ulcer Current Visit: No Status: Acute Code(s): E11.621 - TYPE 2 DIABETES MELLITUS WITH FOOT ULCER; L97.509 - NON-PRESSURE CHRONIC ULCER OTH PRT UNSP FOOT W UNSP SEVERITY SNOMED Code(s): 099048249 Plan: 1patient presented to hospital with increasing shortness of breath more likely due to underlying fluid overload in this patient did have evidence of moderate pleural effusion clinically not behaving as pneumonia as the patient did not have any cough or sputum production and did have normal procalcitonin. 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
[2022-02-23 04:20] LABS: Glucose,Whole Blood 52 mg/dL (70-110)
[2022-02-23 05:05] LABS: Glucose,Whole Blood 84 mg/dL (70-110)
[2022-02-23 06:59] LABS: Glucose,Whole Blood 77 mg/dL (70-110)
[2022-02-23 07:07] LABS: African American GFR (CKD) 32 (>60 ml/min/1.73 sqM); Anion Gap 10 mmol/L; Blood Urea Nitrogen 25 mg/dL (7-17); Calcium 7.3 mg/dL (8.4-10.2); Carbon Dioxide 24 mmol/L (22-30); Chloride 96 mmol/L (98-107); Glucose 62 mg/dL (74-99); Non-African American GFR(CKD) 28 (>60 ml/min/1.73 sqM); Potassium 3.8 mmol/L (3.5-5.1); Sodium 130 mmol/L (137-145)
[2022-02-23] MEDS: INSULIN ASPART (NovoLOG) 100 UNIT/ML VIAL SQ SCH ×4 (07:24→11:34)
[2022-02-23] MEDS: hydrALAZINE HCL 25 MG TAB PO SCH (07:49)
[2022-02-23] MEDS: DAPAGLIFLOZIN PROPANEDIOL 10 MG TABLET PO SCH (07:49)
[2022-02-23] MEDS: FLUCONAZOLE 100 MG TAB PO SCH (07:49)
[2022-02-23] MEDS: CLOPIDOGREL 75 MG TAB PO SCH (07:50)
[2022-02-23] MEDS: TAMSULOSIN 0.4 MG CAP.ER.24H PO SCH (07:50)
[2022-02-23] MEDS: FUROSEMIDE 40 MG TAB PO SCH (07:50)
[2022-02-23] MEDS: CYANOCOBALAMIN 500 MCG TAB PO SCH (07:50)
[2022-02-23] MEDS: amLODIPine 5 MG TAB PO SCH (07:50)
[2022-02-23] MEDS: FOLIC ACID 1 MG TAB PO SCH (07:50)
[2022-02-23] MEDS: ATORVASTATIN 10 MG TAB PO SCH (07:50)
[2022-02-23] MEDS: PANTOPRAZOLE 40 MG TABLET PO SCH (07:51)
[2022-02-23] MEDS: IPRATROPIUM-ALBUTEROL 3 ML NEB INHALATION SCH ×3 (08:46→15:27)
--- NOTE | 2022-02-23 10:53 | P.PN ---
Subjective This is a pleasant 81-year-old female past medical history significant for permanent atrial fibrillation on Xarelto, hypertension, type 2 diabetes, chronic kidney disease, hyperlipidemia, peripheral vascular disease s/p aortogram with CO2 angiography, bilateral iliofemoral angiogram with percutaneous balloon angioplasty of left posterior tibial artery with Dr. 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 She follows in the office with Dr. Ureña. We have been asked to see in consultation for congestive heart failure. Patient presents emergency department with worsening shortness of breath, lower extremity edema and 15-20lb gradual weight gain. She states over the past 2 weeks she has progressively been getting more shortness of breath, noticed her weight increased and LE edema has worsened. She presented to the ER for further evaluation. She was started on IV Lasix in the ER, her shortness of breath has improved. 02/23/2022 Patient seen and examined at bedside, no acute distress. Her shortness of breath and lower extremity edema has improved. Overall her symptoms have improved, she states she is feeling much better. Patient with 1.8 L urine output over the past 24 hours. Weight stable. Echocardiogram revealed EF of 5055 percent, moderate pulmonary hypertension, moderate mitral and tricuspid regurgitation, RVSP of 46 mmHg Meds: PO 40 mg twice a day, amlodipine 5 mg daily, atorvastatin 10 mg daily, Plavix 75 mg daily, Xarelto 15 mg nightly Labs: Sodium 130, potassium 3.8, BUN 25, serum creatinine 1.7. PHYSICAL EXAMINATION Blood pressure 126/59, heart 63, afebrile, saturation 95% room air CONSTITUTIONAL: No apparent distress. HEENT: Head is normocephalic. No JVD. CHEST EXAMINATION: Lungs are clear bilaterally to auscultation. HEART EXAMINATION: Irregular rate and rhythm. S1, S2 heard. Systolic ejection murmur at the apex ABDOMEN: Soft, nontender. Positive bowel sounds. EXTREMITIES: 1+ bilateral lower extremity edema. Left metatarsal amputation. NEUROLOGIC EXAMINATION: Patient is awake, alert and oriented x3. 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 Don on 07/22/2021 PLAN Decrease Lasix 40mg daily Continue home anticoagulation with Xarelto Continue amlodipine and hydralazine Not on beta prema secondary to bradycardia Not on ACEI/ARB secondary to kidney function Monitor renal function From a cardiology perspective, patient is stable and improving. Further recommendations based on clinical course Nurse practitioner note has been reviewed by physician. Signing provider agrees with the documented findings, assessment, and plan of care. Objective - Vital Signs Vital signs: Vital Signs Temp 97.5 F L 02/23/22 07:26 Pulse 60 02/23/22 09:00 Resp 17 02/23/22 08:00 BP 142/61 02/23/22 07:26 Pulse Ox 98 02/23/22 07:26 FiO2 Intake & Output 02/22/22 02/23/22 02/23/22 18:59 06:59 18:59 Output Total 1000 800 Balance -1000 -800 Output: Urine 1000 800 Other: Voiding Method Toilet External Catheter External Catheter External Catheter # Bowel Movements 2 - Labs CBC & Chem 7: 02/22/22 07:42 02/23/22 06:27 Labs: Abnormal Lab Results - Last 24 Hours (Table) 02/22/22 02/22/22 02/22/22 Range/Units 11:52 16:34 20:47 Sodium (137-145) mmol/L Chloride (98-107) mmol/L BUN (7-17) mg/dL Creatinine (0.52-1.04) mg/dL Glucose (74-99) mg/dL POC Glucose (mg/dL) 203 H 268 H 145 H (70-110) mg/dL Calcium (8.4-10.2) mg/dL 02/23/22 02/23/22 Range/Units 04:18 06:27 Sodium 130 L (137-145) mmol/L Chloride 96 L (98-107) mmol/L BUN 25 H (7-17) mg/dL Creatinine 1.71 H (0.52-1.04) mg/dL Glucose 62 L (74-99) mg/dL POC Glucose (mg/dL) 52 L (70-110) mg/dL Calcium 7.3 L (8.4-10.2) mg/dL Microbiology - Last 24 Hours (Table) 02/20/22 20:50 Blood Culture - Preliminary Blood No Growth after 48 hours 02/20/22 20:40 Blood Culture - Preliminary Blood No Growth after 48 hours 02/20/22 19:45 Urine Culture - Preliminary Urine,Voided Yeast species
[2022-02-23 11:20] LABS: Glucose,Whole Blood 99 mg/dL (70-110)
--- NOTE | 2022-02-23 13:11 | P.PN ---
Subjective Progress Note Date: 02/23/22 Principal diagnosis: Shortness of breath. Pulmonary consultation dated 02/21/2022. 81-year-old female sent in by her primary care physician Dr. Oneal, for shortness of breath, and fluid retention. The patient was apparently seen by her primary care physician, and the patient received Lasix 20 mg, which did not seem to help. She apparently been getting worse with shortness of breath and fluid retention for 2 weeks or so. The daughter states that by that time, thinks it gone too far, and the Lasix did not really make much of a difference. The patient has a number of doctors including cardiology, nephrology, and endocrinology. The patient is a lifelong nonsmoker. The patient did not have a history of any lung issues. The patient was admitted with a diagnosis of possible pneumonia, UTI, hyponatremia, and CHF. Laboratory data includes a white count 8.3, hemoglobin 9.2, hematocrit 27.7, and a platelet count 265,000. Sed rate is 94. D-dimer was 1.64. Sodium 127, potassium 3.8, chlorides 85, CO2 19, anion gap 13, BUN 22, and creatinine 1.59. The patient's N-terminal proBNP was 16,200. The pro-calcitonin level was very normal at 0.09. Urine was yellow and turbid, with 2+ protein, moderate blood, positive LE, greater than 182 WBCs, many WBC clumps, but no bacteria. Coronavirus testing was negative. Legionella urinary antigen was also negative. 2 different chest x-rays, and the CAT scan of the chest were reviewed. I think the more likely diagnosis is fluid overload/CHF. There may be a component pneumonia. Progress note dated 02/22/2022. 81-year-old female seen yesterday in consultation. She is seen again today in room 450 currently on room air. She's not receiving any IV fluids. Her pro- calcitonin level was 0.09. Antibiotics can be discontinued. We did not feel strongly that the patient had an pneumonia. Currently laboratory data includes a white count 8.5, hemoglobin 8.7, hematocrit 27.1, and a platelet count 243,000. Sodium 132, potassium 3.7, chlorides 99, CO2 22, anion gap 11, BUN 23, and creatinine 1.73. Blood cultures are thus far negative. Chest x-ray in my opinion from February 21, is consistent with CHF. Progress note dated 02/23/2022. 81-year-old female again seen in room 450. She remains on room air. The patient appears to be relatively comfortable. No IV fluids. She is lying essentially flat in bed, with no respiratory issues. Her lower extremity edema is improved, but still present, rated at 1+. Current laboratory data includes a sodium 1:30, potassium 3.8, chlorides 96, CO2 24, BUN 25, and creatinine 1.71. Calcium is 7.3. Glucose 62. Chest x-ray from February 22, shows improvement. Objective - Vital Signs Vital signs: Vital Signs Temp 97.5 F L 02/23/22 07:26 Pulse 62 02/23/22 11:48 Resp 17 02/23/22 08:00 BP 142/61 02/23/22 07:26 Pulse Ox 98 02/23/22 07:26 FiO2 Intake & Output 02/22/22 02/23/22 02/23/22 18:59 06:59 18:59 Output Total 1000 800 Balance -1000 -800 Output: Urine 1000 800 Other: Voiding Method Toilet External Catheter External Catheter External Catheter # Bowel Movements 2 - Exam No acute distress, oriented 3. Currently on room air. Room air saturation 98%. HEENT examination is grossly unremarkable. Neck supple. Full range of motion. No adenopathy thyromegaly or neck vein distention. Cardiovascular examination reveals an irregular rhythm and rate. S1-S2 normal. No S3 or S4. No discernible murmur noted. Heart sounds are distant. Heart rate 62 bpm. The patient is in atrial fibrillation. Lungs reveal bibasilar crackles. Scattered mild rhonchi. No wheezes. Breath sounds equal bilaterally. Abdomen soft bowel sounds are heard. No masses or tenderness. Extremities reveal mild 1+ edema. No cyanosis or clubbing. Skin is without rash or lesion. Neurologic examination is brief but nonfocal. - Labs CBC & Chem 7: 02/22/22 07:42 02/23/22 06:27 Labs: Abnormal Lab Results - Last 24 Hours (Table) 02/22/22 02/22/22 02/23/22 Range/Units 16:34 20:47 04:18 Sodium (137-145) mmol/L Chloride (98-107) mmol/L BUN (7-17) mg/dL Creatinine (0.52-1.04) mg/dL Glucose (74-99) mg/dL POC Glucose (mg/dL) 268 H 145 H 52 L (70-110) mg/dL Calcium (8.4-10.2) mg/dL 02/23/22 Range/Units 06:27 Sodium 130 L (137-145) mmol/L Chloride 96 L (98-107) mmol/L BUN 25 H (7-17) mg/dL Creatinine 1.71 H (0.52-1.04) mg/dL Glucose 62 L (74-99) mg/dL POC Glucose (mg/dL) (70-110) mg/dL Calcium 7.3 L (8.4-10.2) mg/dL Microbiology - Last 24 Hours (Table) 02/20/22 19:45 Urine Culture - Final Urine,Voided Daiana sp,not albicans/galbr 02/20/22 20:50 Blood Culture - Preliminary Blood No Growth after 48 hours 02/20/22 20:40 Blood Culture - Preliminary Blood No Growth after 48 hours Assessment and Plan Assessment: Shortness of breath, for 2 weeks, progressive, most likely secondary to fluid overload/CHF. Seriously doubt pneumonia. History of chronic atrial fibrillation. History of diabetes mellitus. History of hyperlipidemia. History of hypertension. History of chronic cellulitis and wounds lower extremities. Chronic kidney disease. Plan: Plan dated 02/20/2022. The patient's clinical picture is most consistent with CHF/fluid overload. There may be a component of pneumonia, although, I believe she doesn't really have pneumonia given her lack of pneumonic symptoms, and the fact that the patient's pro-calcitonin level is low. We will continue to follow make recommendations along the way. The patient has been seen by cardiology. The daughter was very helpful in providing the history on this patient. The patient's on azithromycin, and Rocephin. The patient's antibiotics can likely be scaled down. No additional recommendations are made. Prognosis is guarded. Plan dated 02/22/2022. The patient's pro-calcitonin level was 0.09. Antibiotics can be discontinued. We don't believe the patient has pneumonia. Clinically, she's very stable. She is laying flat on her back, without any respiratory distress. She's not requiring any oxygen therapy. Room air saturations are 97%. We well continue to follow and make recommendations where appropriate. Prognosis is guarded. Plan dated 02/23/2022. The patient's clinically improved. Her lower extremity edema is improved. Her chest x-rays improved. She never really had much in the way of shortness of breath, and it has been on room air. We will continue to follow. Her pro- calcitonin level was very low, and antibiotics were discontinued. Prognosis is certainly guarded. Additional recommendations and suggestions are forthcoming. Time with Patient: Less than 30
[2022-02-23 14:07] VITALS: BP 137/70; RESP 16; TEMP 98.4
[2022-02-23 15:30] VITALS: PULSE 62
[2022-02-24] MEDS ORDERED: FUROSEMIDE 40 MG TAB PO SCH (09:00)
--- NOTE | 2022-02-24 15:27 | P.DS ---
Providers Date of admission: 02/20/22 21:14 Expected date of discharge: 02/23/22 Attending physician: Faviola Robert Consults: 02/20/22 21:11 Consult Physician Stat Consulting Provider: Praveena Ureña Consult Reason/Comments: CHF exacerbation Do you want consulting provider notified?: Yes, Notify in am 02/21/22 12:18 Consult Physician Routine Consulting Provider: Tyler Bertrand Consult Reason/Comments: pneumonia?? Do you want consulting provider notified?: Yes Consult Physician Routine Consulting Provider: Jamila Campos Consult Reason/Comments: pneumonia?? Do you want consulting provider notified?: Yes Primary care physician: Megha Oneal Hospital Course: Final diagnosis Shortness of breath with congestive heart failure acute exacerbation Possible multifocal pneumonia, although unlikely per pulmonary Acute urinary tract infection, present on admission History of recent foot surgery Atrial fibrillation history diabetes mellitus, type II GI prophylaxis DVT prophylaxis No code Discharge disposition Patient is being discharged in a stable condition with guarded prognosis to home. Patient being arranged with home care. Patient will follow-up with Dr. rene Martinez in the outpatient setting upon discharge. Patient is to continue with Diflucan daily for the next 7 days as scheduled. Recommend repeat labs to monitor kidney functions closely in the next 2-3 days. Total time taken is greater than 35 minutes. Hospital course This is a 81-year-old female who was recently admitted with CHF exacerbation with associated shortness of breath and was being closely monitored. Patient was evaluated by cardiology along with infectious disease. Patient urine culture finalized with Daiana and is maintained on Diflucan and will continue daily for the next 7 days to complete course. Patient was maintained on IV Lasix and transitioned oral Lasix 40 mg twice daily recommend close outpatient follow-up with repeat labs and prescription was provided. Patient to follow up with cardiology in the outpatient setting. She reports to feeling well and would like to go home. Patient does live with her daughter. Patient and family are agreeable to home care. Currently no reports of chest pain, shortness of breath, or palpitations. Patient is afebrile. No reports of nausea or vomiting and patient is tolerating diet. Patient will be discharged home today. Guarded prognosis. Physical exam: Gen: This is a 81-year-old female awake, alert and oriented 3, well-developed, well-nourished HEENT: Head is atraumatic, normocephalic. Pupils equal, round. Sclerae is anicteric. NECK: Supple. No JVD. No lymphadenopathy. No thyromegaly. LUNGS: Diminished breath sounds bilaterally with some scattered rhonchi noted. No intercostal retractions. HEART: S1, S2 are muffled ABDOMEN: Soft. Bowel sounds are present. No masses. No tenderness. EXTREMITIES: No pedal edema. No calf tenderness. NEUROLOGICAL: Patient is awake, alert and oriented x3. Cranial nerves 2 through 12 are grossly intact. Please refer to medication reconciliation sheet for a list of medications. The impression and plan of care has been dictated by Mildred Swift, Nurse Practitioner as directed. Dr. Jakob MD I have performed a history and examination and MDM of this patient, discussed the same with the dictator, and agree with the dictator's assessment and plan as written ,documented as a scribe. Based on total visit time, I have performed more than 50% of the visit. Patient Condition at Discharge: Fair Plan - Discharge Summary Discharge Rx Participant: Yes New Discharge Prescriptions: New Furosemide [Lasix] 40 mg PO DAILY 30 Days #30 tab amLODIPine [Norvasc] 5 mg PO DAILY 30 Days #30 tab Acetaminophen Tab [Tylenol] 650 mg PO Q4HR PRN tab PRN Reason: Fever And/ Or Pain Budesonide-Formot 160-4.5 Mcg [Symbicort 160-4.5 Mcg Inhaler] 2 puff IN HALATION BID 30 Days #10.2 gm hydrALAZINE HCL [Apresoline] 25 mg PO BID 30 Days #60 tab Fluconazole [Diflucan] 100 mg PO DAILY 7 Days #7 tab Dapagliflozin Propanediol [Farxiga] 10 mg PO DAILY 30 Days #30 tab Albuterol Inhaler [Ventolin Hfa Inhaler] 1 puff INHALATION QID #8 gm Continue Rivaroxaban [Xarelto] 15 mg PO DAILY Clopidogrel [Plavix] 75 mg PO DAILY 30 Days #30 tab Tamsulosin HCl [Flomax] 0.4 mg PO DAILY Sodium Bicarbonate Tab 650 mg PO DAILY@1500 Omeprazole 20 mg PO DAILY Insulin Lispro [humaLOG Kwikpen] 4 unit SQ AC-TID Insulin Glargine,Hum.rec.anlog [Lantus Solostar Pen] 12 units SQ HS Folic Acid 1 mg PO DAILY Simvastatin [Zocor] 20 mg PO DAILY Cyanocobalamin [Vitamin B-12] 500 mcg PO DAILY Insulin Lispro [humaLOG Kwikpen] See Protocol SQ TID-W/MEALS Potassium Chloride ER [K-Dur 10] 10 meq PO DAILY@1500 Discontinued amLODIPine [Norvasc] 10 mg PO DAILY Furosemide [Lasix] 20 mg PO DAILY Ciprofloxacin HCl [Cipro] 500 mg PO BID Torsemide [Demadex] 5 mg PO DAILY hydrALAZINE HCL [Apresoline] 50 mg PO TID@0900,1500,2200 Discharge Medication List Cyanocobalamin [Vitamin B-12] 500 mcg PO DAILY 06/28/21 [History] Rivaroxaban [Xarelto] 15 mg PO DAILY 06/28/21 [History] Simvastatin [Zocor] 20 mg PO DAILY 06/28/21 [History] Clopidogrel [Plavix] 75 mg PO DAILY 30 Days #30 tab 07/25/21 [Rx] Insulin Lispro [humaLOG Kwikpen] See Protocol SQ TID-W/MEALS 12/02/21 [History] Folic Acid 1 mg PO DAILY 02/20/22 [History] Insulin Glargine,Hum.rec.anlog [Lantus Solostar Pen] 12 units SQ HS 02/20/22 [History] Insulin Lispro [humaLOG Kwikpen] 4 unit SQ AC-TID 02/20/22 [History] Omeprazole 20 mg PO DAILY 02/20/22 [History] Potassium Chloride ER [K-Dur 10] 10 meq PO DAILY@1500 02/20/22 [History] Sodium Bicarbonate Tab 650 mg PO DAILY@1500 02/20/22 [History] Tamsulosin HCl [Flomax] 0.4 mg PO DAILY 02/20/22 [History] Acetaminophen Tab [Tylenol] 650 mg PO Q4HR PRN tab 02/23/22 [Rx] Albuterol Inhaler [Ventolin Hfa Inhaler] 1 puff INHALATION QID #8 gm 02/23/22 [Rx] Budesonide-Formot 160-4.5 Mcg [Symbicort 160-4.5 Mcg Inhaler] 2 puff INHALATION BID 30 Days #10.2 gm 02/23/22 [Rx] Dapagliflozin Propanediol [Farxiga] 10 mg PO DAILY 30 Days #30 tab 02/23/22 [Rx] Fluconazole [Diflucan] 100 mg PO DAILY 7 Days #7 tab 02/23/22 [Rx] Furosemide [Lasix] 40 mg PO DAILY 30 Days #30 tab 02/23/22 [Rx] amLODIPine [Norvasc] 5 mg PO DAILY 30 Days #30 tab 02/23/22 [Rx] hydrALAZINE HCL [Apresoline] 25 mg PO BID 30 Days #60 tab 02/23/22 [Rx] Follow up Appointment(s)/Referral(s): Megha Oneal DO [Primary Care Provider] - 03/01/22 10:20 am [facility], [NON-STAFF] - 1-2 Days (AGENCY WILL CONTACT YOU.) Ambulatory/Diagnostic Orders: Basic Metabolic Panel [LAB.AMB] Time Frame: 3 Days, Location: None Selected Patient Instructions/Handouts: Furosemide (By mouth), Albuterol (By breathing), Fluconazole (By mouth), Amlodipine (By mouth), Hydralazine/Hydrochlorothiazide (By mouth), Budesonide/Formoterol (By breathing), Dapagliflozin (By mouth), Heart Failure (DC), Heart Healthy Diet (DC), Basic Carbohydrate Counting (DC), Low-Sodium Diet (DC), Fluid Restriction (DC), Urinary Tract Infection in Older Adults (ED) Activity/Diet/Wound Care/Special Instructions: Activity Limited until follow-up Follow-up with primary care provider on discharge Follow-up cardiology as discussed Nephrology outpatient Recommend repeat labs in the next 2-3 days Continue taking medications as prescribed Continue with heart healthy diabetic diet Monitor closely of fluid intake and follow 1500 mL fluid restrictions with no additional salt added diet If inhalers are not covered under insurance try using good Rx edwar Discharge Disposition: HOME WITH HOME HEALTH SERVICES
--- NOTE | 2022-02-26 22:58 | CDI ---
Documentation Clarification Form Date: 02/26/2022 10:43:51 PM From: Yeimy Barba Phone: Admit Date: 02/20/2022 09:14:00 PM Patient Name: Marylu Chavez Visit Number: [id number] Discharge Date: 02/23/2022 04:18:00 PM ATTENTION: The Clinical Documentation Specialists (CDI) and [facility] Coding Staff appreciate your assistance in clarifying documentation. Please respond to the clarification below the line at the bottom and electronically sign. The CDI & [facility] Coding staff will review the response and follow-up if needed. Please note: Queries are made part of the Legal Health Record. If you have any questions, please contact the author of this message via ITS. Dr. Faviola Robert Unspecified CKD is documented per Cardiology Consult Note 02/21/22. Additional clarification regarding the stage of CKD is requested. History/Risk Factors: 81yo F, permanent A Fib, DMII w CKD, PVD, ACDHF, UTI, PHTN, HTN Clinical Indicators: BUN 22 H (7-17) mg/dL Creatinine 1.59 H (0.52-1.04) mg/dL Est GFR (CKD-EPI) AfAm 35 (>60 ml/min/1.73 sqM) Est GFR (CKD-EPI) NonAf 30 (>60 ml/min/1.73 sqM) Treatment: Continue IV Lasix 40mg BID. Monitor I/Os, daily weights. Monitor renal function and electrolytes Please clarify the stage of the CKD, if known: [ ] CKD Stage 3 (GFR 30-59) [ ] CKD Stage 3b (GFR 30-44) [ ] Other, please specify [ ] Unable to determine (Template last revised: June 2020) MTDD
--- NOTE | 2022-02-26 22:58 | CDI ---
Documentation Clarification Form Date: 02/26/2022 10:43:51 PM From: Yeimy Barba Phone: Admit Date: 02/20/2022 09:14:00 PM Patient Name: Marylu Chavez Visit Number: [id number] Discharge Date: 02/23/2022 04:18:00 PM ATTENTION: The Clinical Documentation Specialists (CDI) and [facility] Coding Staff appreciate your assistance in clarifying documentation. Please respond to the clarification below the line at the bottom and electronically sign. The CDI & [facility] Coding staff will review the response and follow-up if needed. Please note: Queries are made part of the Legal Health Record. If you have any questions, please contact the author of this message via ITS. Dr. Faviola Robert Unspecified CKD is documented per Cardiology Consult Note 02/21/22. Additional clarification regarding the stage of CKD is requested. History/Risk Factors: 81yo F, permanent A Fib, DMII w CKD, PVD, ACDHF, UTI, PHTN, HTN Clinical Indicators: BUN 22 H (7-17) mg/dL Creatinine 1.59 H (0.52-1.04) mg/dL Est GFR (CKD-EPI) AfAm 35 (>60 ml/min/1.73 sqM) Est GFR (CKD-EPI) NonAf 30 (>60 ml/min/1.73 sqM) Treatment: Continue IV Lasix 40mg BID. Monitor I/Os, daily weights. Monitor renal function and electrolytes Please clarify the stage of the CKD, if known: [ ] CKD Stage 3 (GFR 30-59) [ ] CKD Stage 3b (GFR 30-44) [ ] Other, please specify [ ] Unable to determine (Template last revised: June 2020) MTDD
[2022-02-27 15:56] LABS: S.pneumoniae Serotype 1 (1) 10.9 mcg/mL (>=2.3); S.pneumoniae Serotype 10A (34) 12.9 mcg/mL (>=2.9); S.pneumoniae Serotype 12F (12) 0.9 mcg/mL (>=0.6); S.pneumoniae Serotype 14 (14) 4.7 mcg/mL (>=7.0); S.pneumoniae Serotype 15B (54) 15.2 mcg/mL (>=3.3); S.pneumoniae Serotype 19F (19) 13.6 mcg/mL (>=15.0); S.pneumoniae Serotype 20 (20) 53.6 mcg/mL (>=1.3); S.pneumoniae Serotype 22F (22) 33.8 mcg/mL (>=7.2); S.pneumoniae Serotype 23F (23) 38.9 mcg/mL (>=8.0); S.pneumoniae Serotype 3 (3) 4.8 mcg/mL (>=1.8); S.pneumoniae Serotype 4 (4) 1.1 mcg/mL (>=0.6); S.pneumoniae Serotype 5 (5) 16.3 mcg/mL (>=10.7); S.pneumoniae Serotype 6B (26) 14.2 mcg/mL (>=4.7); S.pneumoniae Serotype 7F (51) 16.5 mcg/mL (>=3.2); S.pneumoniae Serotype 8 (8) 4.3 mcg/mL (>=2.9)
--- NOTE | 2022-03-02 22:57 | P.PN ---
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 On today's evaluation that is 02/23/2022, the patient remains to be afebrile patient is breathing comfortably on room air, the patient denies having any chest pain shortness of breath or cough the patient denies having any nausea no vomiting no abdominal pain or diarrhea Objective - Vital Signs Vital signs: Vital Signs Temp 97.5 F L 02/23/22 07:26 Pulse 62 02/23/22 11:48 Resp 17 02/23/22 08:00 BP 142/61 02/23/22 07:26 Pulse Ox 98 02/23/22 07:26 FiO2 Intake & Output 02/22/22 02/23/22 02/23/22 18:59 06:59 18:59 Output Total 1000 800 Balance -1000 -800 Output: Urine 1000 800 Other: Voiding Method Toilet External Catheter External Catheter External Catheter # Bowel Movements 2 - Exam GENERAL DESCRIPTION: An elderly female lying in bed in no distress RESPIRATORY SYSTEM: Unlabored breathing , decreased breath sounds at bases HEART: S1 S2 regular rate and rhythm , ABDOMEN: Soft , no tenderness EXTREMITIES: Left foot wound is currently dressed no drainage on the dressing - Labs CBC & Chem 7: 02/22/22 07:42 02/23/22 06:27 Labs: Abnormal Lab Results - Last 24 Hours (Table) 02/22/22 02/22/22 02/23/22 Range/Units 16:34 20:47 04:18 Sodium (137-145) mmol/L Chloride (98-107) mmol/L BUN (7-17) mg/dL Creatinine (0.52-1.04) mg/dL Glucose (74-99) mg/dL POC Glucose (mg/dL) 268 H 145 H 52 L (70-110) mg/dL Calcium (8.4-10.2) mg/dL 02/23/22 Range/Units 06:27 Sodium 130 L (137-145) mmol/L Chloride 96 L (98-107) mmol/L BUN 25 H (7-17) mg/dL Creatinine 1.71 H (0.52-1.04) mg/dL Glucose 62 L (74-99) mg/dL POC Glucose (mg/dL) (70-110) mg/dL Calcium 7.3 L (8.4-10.2) mg/dL Microbiology - Last 24 Hours (Table) 02/20/22 19:45 Urine Culture - Final Urine,Voided Daiana sp,not albicans/galbr 02/20/22 20:50 Blood Culture - Preliminary Blood No Growth after 48 hours 02/20/22 20:40 Blood Culture - Preliminary Blood No Growth after 48 hours Assessment and Plan (1) Urinary tract infection Status: Acute Code(s): N39.0 - URINARY TRACT INFECTION, SITE NOT SPECIFIED SNOMED Code(s): 91434457 (2) Diabetic foot ulcer Status: Acute Code(s): E11.621 - TYPE 2 DIABETES MELLITUS WITH FOOT ULCER; L97.509 - NON-PRESSURE CHRONIC ULCER OTH PRT UNSP FOOT W UNSP SEVERITY SNOMED Code(s): 943669563 Plan: 1patient presented to hospital with increasing shortness of breath more likely due to underlying fluid overload in this patient did have evidence of moderate pleural effusion clinically not behaving as pneumonia as the patient did not have any cough or sputum production and did have normal procalcitonin. 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
--- NOTE | 2022-03-06 14:06 | CDI ---
Documentation Clarification Form Date: 03/06/2022 02:02 PM From: Yeimy Barba Phone: Admit Date: 02/20/2022 09:14:00 PM Patient Name: Marylu Chavez Visit Number: [id number] Discharge Date: 02/23/2022 04:18:00 PM ATTENTION: The Clinical Documentation Specialists (CDI) and [facility] Coding Staff appreciate your assistance in clarifying documentation. Please respond to the clarification below the line at the bottom and electronically sign. The CDI & [facility] Coding staff will review the response and follow-up if needed. Please note: Queries are made part of the Legal Health Record. If you have any questions, please contact the author of this message via ITS. Dr. Faviola Robert The previous query was signed without an answer; therefore, I am resubmitting this query . Unspecified CKD is documented per Cardiology Consult Note 02/21/22. Additional clarification regarding the stage of CKD is requested. History/Risk Factors: 81yo F, permanent A Fib, DMII w CKD, PVD, ACDHF, UTI, PHTN, HTN Clinical Indicators: BUN 22 H (7-17) mg/dL Creatinine 1.59 H (0.52-1.04) mg/dL Est GFR (CKD-EPI) AfAm 35 (>60 ml/min/1.73 sqM) Est GFR (CKD-EPI) NonAf 30 (>60 ml/min/1.73 sqM) Treatment: Continue IV Lasix 40mg BID. Monitor I/Os, daily weights. Monitor renal function and electrolytes Please clarify the stage of the CKD, if known: [ ] CKD Stage 3 (GFR 30-59) [ ] CKD Stage 3b (GFR 30-44) [ ] Other, please specify [ ] Unable to determine (Template last revised: June 2020) Unable to determine MTDD
--- NOTE | 2022-03-06 14:06 | CDI ---
Documentation Clarification Form Date: 03/06/2022 02:02 PM From: Yeimy Barba Phone: Admit Date: 02/20/2022 09:14:00 PM Patient Name: Marylu Chavez Visit Number: [id number] Discharge Date: 02/23/2022 04:18:00 PM ATTENTION: The Clinical Documentation Specialists (CDI) and [facility] Coding Staff appreciate your assistance in clarifying documentation. Please respond to the clarification below the line at the bottom and electronically sign. The CDI & [facility] Coding staff will review the response and follow-up if needed. Please note: Queries are made part of the Legal Health Record. If you have any questions, please contact the author of this message via ITS. Dr. Faviola Robert The previous query was signed without an answer; therefore, I am resubmitting this query . Unspecified CKD is documented per Cardiology Consult Note 02/21/22. Additional clarification regarding the stage of CKD is requested. History/Risk Factors: 81yo F, permanent A Fib, DMII w CKD, PVD, ACDHF, UTI, PHTN, HTN Clinical Indicators: BUN 22 H (7-17) mg/dL Creatinine 1.59 H (0.52-1.04) mg/dL Est GFR (CKD-EPI) AfAm 35 (>60 ml/min/1.73 sqM) Est GFR (CKD-EPI) NonAf 30 (>60 ml/min/1.73 sqM) Treatment: Continue IV Lasix 40mg BID. Monitor I/Os, daily weights. Monitor renal function and electrolytes Please clarify the stage of the CKD, if known: [ ] CKD Stage 3 (GFR 30-59) [ ] CKD Stage 3b (GFR 30-44) [ ] Other, please specify [ ] Unable to determine (Template last revised: June 2020) Unable to determine MTDD
== END 2022-02-23 16:18 | disposition home health service (06) | DRG 291 ==
LOC: EC 19:04 → 4SSUR 21:14
PROVIDERS: ADMIT Hospitalist; ATTEND Hospitalist
DX: I13.0 Hypertensive heart and chronic kidney disease with heart failure and stage 1 through stage 4 chronic kidney disease, or unspecified chronic kidney disease (principal); J18.9 Pneumonia, unspecified organism; E87.1 Hypo-osmolality and hyponatremia; L97.929 Non-pressure chronic ulcer of unspecified part of left lower leg with unspecified severity; L03.116 Cellulitis of left lower limb; I50.32 Chronic diastolic (congestive) heart failure; I48.21 Permanent atrial fibrillation; N39.0 Urinary tract infection, site not specified; I27.20 Pulmonary hypertension, unspecified; E11.621 Type 2 diabetes mellitus with foot ulcer; E11.22 Type 2 diabetes mellitus with diabetic chronic kidney disease; E11.51 Type 2 diabetes mellitus with diabetic peripheral angiopathy without gangrene; E11.628 Type 2 diabetes mellitus with other skin complications; D63.1 Anemia in chronic kidney disease; N18.9 Chronic kidney disease, unspecified; I08.1 Rheumatic disorders of both mitral and tricuspid valves; L97.509 Non-pressure chronic ulcer of other part of unspecified foot with unspecified severity; Z20.822 Contact with and (suspected) exposure to COVID-19; E78.5 Hyperlipidemia, unspecified; I45.10 Unspecified right bundle-branch block; R09.02 Hypoxemia; R00.1 Bradycardia, unspecified; Z79.01 Long term (current) use of anticoagulants; Z28.310 Unvaccinated for COVID-19; Z79.02 Long term (current) use of antithrombotics/antiplatelets; Z79.899 Other long term (current) drug therapy; Z79.4 Long term (current) use of insulin; Z88.6 Allergy status to analgesic agent; Z89.422 Acquired absence of other left toe(s); Z87.39 Personal history of other diseases of the musculoskeletal system and connective tissue; Z79.51 Long term (current) use of inhaled steroids; Z79.84 Long term (current) use of oral hypoglycemic drugs
CPT/HCPCS: 36415; 71045; 71046; 71250; 76770; 80048; 80053; 81001; 83036; 83735; 83880; 84100; 84145; 84443; 84484; 85025; 85379; 85652; 86140; 86317; 86738; 87040; 87086; 87449; 87635; 93005; 93306; 94640; 94760; 96365; 96375; 99285

== ENCOUNTER 2022-04-26 12:19 | Inpatient (IN) | payer MEDICARE ==
[2022-04-26 16:53] LABS: Glucose,Whole Blood 181 mg/dL (70-110)
[2022-04-26] MEDS ORDERED: CEFEPIME 2 GM in SODIUM CHLORIDE 0.9% 100 ML IVPB STA (17:05)
[2022-04-26] MEDS ORDERED: metroNIDAZOLE-NS PMX 500 MG in SALINE 1 100ML.BAG IVPB STA (17:05)
[2022-04-26 17:53] LABS: Albumin 3.9 g/dL (3.5-5.0); Calcium 8.6 mg/dL (8.4-10.2); Potassium 4.7 mmol/L (3.5-5.1); Total Bilirubin 0.8 mg/dL (0.2-1.3); Total Protein 8.7 g/dL (6.3-8.2)
[2022-04-26] MEDS ORDERED: SODIUM CHLORIDE 0.9% 1,000 ML IV STA (18:04)
[2022-04-26 18:05] LABS: Basophils % (A) 1 %; Eosinophils # (A) 0.2 k/uL (0-0.7); Eosinophils % (A) 2 %; HCT 36.5 % (34.0-46.0); Lymphocytes # (A) 1.4 k/uL (1.0-4.8); Lymphocytes % (A) 15 %; MCHC 33.6 g/dL (31.0-37.0); MCV 86.3 fL (80.0-100.0); Mean Platelet Volume 8.5; Monocytes # (A) 0.5 k/uL (0-1.0); Monocytes % (A) 5 %; Neutrophils # (A) 7.3 k/uL (1.3-7.7); Neutrophils % (A) 75 %; Platelet Count 232 k/uL (150-450); RBC 4.23 m/uL (3.80-5.40); RDW 13.7 % (11.5-15.5); WBC 9.6 k/uL (3.8-10.6)
[2022-04-26 18:06] LABS: HGB 12.2 gm/dL (11.4-16.0)
--- NOTE | 2022-04-26 18:11 | XR ---
EXAMINATION TYPE: XR foot complete LT DATE OF EXAM: 04/26/2022 COMPARISON: 10/13/2021 HISTORY: Gangrene TECHNIQUE: 3 views FINDINGS: There is amputation of the forefoot at the level of the proximal metatarsals. The soft tiss ue swelling around the mid and forefoot. There is plantar and Achilles calcaneal spurring. There is v ascular calcification. There is soft tissue air adjacent to the first and second metatarsal stumps. N o focal bone destruction. IMPRESSION: Soft tissue air that could relate to cellulitis and gangrene. No focal bone destruction.
[2022-04-26] MEDS ORDERED: NALOXONE 0.4 MG/ML 1 ML VIAL IV PRN (18:50)
--- NOTE | 2022-04-26 19:27 | ED ---
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 Daughter is at bedside and helps provide history. She noticed increased drainage a few days ago. Reports it as very malodorous and dark yellow in color. Apparently the nurse was very concerned with the wound and recommended emergency evaluation despite appointment with Dr. Campos tomorrow. Patient finished one full day of amoxicillin and Keflex. She currently feels well and has no concerns. She denies pain and constitutional symptoms. - Related Data Home Medications Medication Instructions Recorded Confirmed Cyanocobalamin [Vitamin B-12] 500 mcg PO DAILY 06/28/21 02/20/22 Rivaroxaban [Xarelto] 15 mg PO DAILY 06/28/21 02/20/22 Insulin Lispro [humaLOG Kwikpen] See Protocol SQ TID-W/MEALS 12/02/21 02/20/22 Folic Acid 1 mg PO DAILY 02/20/22 02/20/22 Insulin Glargine,Hum.rec.anlog 12 units SQ HS 02/20/22 02/20/22 [Lantus Solostar Pen] Insulin Lispro [humaLOG Kwikpen] 4 unit SQ AC-TID 02/20/22 02/20/22 Omeprazole 20 mg PO DAILY 02/20/22 02/20/22 Potassium Chloride ER [K-Dur 10] 10 meq PO DAILY@1500 02/20/22 02/20/22 Sodium Bicarbonate Tab 650 mg PO DAILY@1500 02/20/22 02/20/22 Tamsulosin HCl [Flomax] 0.4 mg PO DAILY 02/20/22 02/20/22 Albuterol Inhaler [Ventolin Hfa 1 puff INHALATION RT-QID PRN 04/26/22 04/26/22 Inhaler] Amoxic-Pot Clav 875-125Mg 1 tab PO Q12HR 04/26/22 04/26/22 [Augmentin 875-125] Budesonide-Formot 160-4.5 Mcg 2 puff INHALATION RT-BID 04/26/22 04/26/22 [Symbicort 160-4.5 Mcg Inhaler] Ciprofloxacin HCl [Cipro] 500 mg PO Q12HR 04/26/22 04/26/22 Dulaglutide [Trulicity] 0.75 mg SQ MO 04/26/22 04/26/22 Empagliflozin [Jardiance] 10 mg PO DAILY 04/26/22 04/26/22 Furosemide [Lasix] 20 mg PO DAILY 04/26/22 04/26/22 Simvastatin [Zocor] 10 mg PO HS 04/26/22 04/26/22 Previous Rx's Medication Instructions Recorded Clopidogrel [Plavix] 75 mg PO DAILY 30 Days #30 tab 07/25/21 Acetaminophen Tab [Tylenol] 650 mg PO Q4HR PRN tab 02/23/22 amLODIPine [Norvasc] 5 mg PO DAILY 30 Days #30 tab 02/23/22 hydrALAZINE HCL [Apresoline] 25 mg PO BID 30 Days #60 tab 02/23/22 Allergies Allergy/AdvReac Type Severity Reaction Status Date / Time aspirin Allergy Anaphylaxis Verified 04/26/22 19:32 Review of Systems ROS Statement: Those systems with pertinent positive or pertinent negative responses have been documented in the HPI. ROS Other: All systems not noted in ROS Statement are negative. Past Medical History Past Medical History: Atrial Fibrillation, Diabetes Mellitus, Hypertension Additional Past Medical History / Comment(s): wound rt foot and rt chin, wound to left pinkey, bilateral toes amputation, kidney failure, CHF, History of Any Multi-Drug Resistant Organisms: None Reported Past Surgical History: Cholecystectomy Additional Past Surgical History / Comment(s): left foot all toes amputated; hematoma removal abdomen Past Anesthesia/Blood Transfusion Reactions: No Reported Reaction Past Psychological History: No Psychological Hx Reported Smoking Status: Never smoker Past Alcohol Use History: None Reported Past Drug Use History: None Reported - Past Family History Sister(s) Family Medical History: Cancer Brother(s) Family Medical History: Cancer General Exam General appearance: alert, in no apparent distress Head exam: Present: atraumatic, normocephalic, normal inspection Respiratory exam: Present: normal lung sounds bilaterally. Absent: respiratory distress, wheezes, rales, rhonchi, stridor Cardiovascular Exam: Present: regular rate, normal rhythm, normal heart sounds. Absent: systolic murmur, diastolic murmur, rubs, gallop, clicks, S3, S4 Extremities exam: Present: other (s/p transmetatarsal amputation of left foot. Gangrene and cellulitis in left first metatarsal region with bone exposed. Neurovascularly intact) Neurological exam: Present: alert, oriented X3, CN II-XII intact Psychiatric exam: Present: normal affect, normal mood Skin exam: Present: warm, dry, intact, normal color. Absent: rash Course Vital Signs 04/26/22 04/26/22 12:34 19:39 Temperature 97.8 F Pulse Rate 53 L 51 L Respiratory 14 18 Rate Blood Pressure 135/66 172/90 O2 Sat by Pulse 99 98 Oximetry Medical Decision Making - Medical Decision Making This is an 82-year-old female presenting with acute infection of chronic left foot wound. Afebrile. Dr. Campos did evaluate patient while he was in the emergency department. He has concern that wound is worsening. He requested blood cultures, cefepime and Flagyl which was initiated. Laboratory studies obtained. There is no leukocytosis. Left foot x-ray obtained and interpreted by me which shows soft tissue air that could relate to gangrene and cellulitis, no evidence of osteomyelitis. Case discussed with Sonia Lomeli from [facility] who accepts admission. ID on consult. Dr. Easley is my attending. - Lab Data Result diagrams: 04/26/22 17:29 04/26/22 17:29 Lab Results 04/26/22 04/26/22 04/26/22 Range/Units 16:51 17:29 17:29 WBC 9.6 (3.8-10.6) k/uL RBC 4.23 (3.80-5.40) m/uL Hgb 12.2 D (11.4-16.0) gm/dL Hct 36.5 (34.0-46.0) % MCV 86.3 (80.0-100.0) fL MCH 29.0 (25.0-35.0) pg MCHC 33.6 (31.0-37.0) g/dL RDW 13.7 (11.5-15.5) % Plt Count 232 (150-450) k/uL MPV 8.5 Neutrophils % 75 % Lymphocytes % 15 % Monocytes % 5 % Eosinophils % 2 % Basophils % 1 % Neutrophils # 7.3 (1.3-7.7) k/uL Lymphocytes # 1.4 (1.0-4.8) k/uL Monocytes # 0.5 (0-1.0) k/uL Eosinophils # 0.2 (0-0.7) k/uL Basophils # 0.0 (0-0.2) k/uL Sodium 132 L (137-145) mmol/L Potassium 4.7 (3.5-5.1) mmol/L Chloride 97 L (98-107) mmol/L Carbon Dioxide 25 (22-30) mmol/L Anion Gap 10 mmol/L BUN 41 H (7-17) mg/dL Creatinine 1.92 H (0.52-1.04) mg/dL Est GFR (CKD-EPI)AfAm 28 (>60 ml/min/1.73 sqM) Est GFR (CKD-EPI)NonAf 24 (>60 ml/min/1.73 sqM) Glucose 177 H (74-99) mg/dL POC Glucose (mg/dL) 181 H (70-110) mg/dL POC Glu [employer] Tender ID Mildred Cortes Calcium 8.6 (8.4-10.2) mg/dL Total Bilirubin 0.8 (0.2-1.3) mg/dL AST 24 (14-36) U/L ALT 15 (4-34) U/L Alkaline Phosphatase 147 H (38-126) U/L Total Protein 8.7 H (6.3-8.2) g/dL Albumin 3.9 (3.5-5.0) g/dL Disposition Clinical Impression: Diabetic infection of left foot, Gangrene Disposition: ADMITTED IP TO THIS HOSP Condition: Good Referrals: Megha Oneal DO [Primary Care Provider] - 1-2 days
[2022-04-26 21:04] LABS: Glucose,Whole Blood 244 mg/dL (70-110)
[2022-04-26] MEDS: hydrALAZINE HCL 25 MG TAB PO SCH (22:06)
[2022-04-26] MEDS: ATORVASTATIN 10 MG TAB PO SCH (22:06)
[2022-04-26] MEDS: SODIUM CHLORIDE 0.9% 1,000 ML IV SCH (22:06)
[2022-04-26] MEDS: INSULIN ASPART (NovoLOG) 100 UNIT/ML VIAL SQ SCH (22:06)
--- NOTE | 2022-04-26 22:36 | P.CONS ---
History of Present Illness - Reason for Consult Consult date: 04/26/22 - History of Present Illness patient is a 82-year-old female with a past medical history significant for diabetes mellitus patient did have a left diabetic foot infection requiring left transmetatarsal amputation with resultant wound for the patient to follow-up with us at [facility] wound care, patient was noticed to have development of a new wound on the medial aspect of her initial wound that was cultured last week and the patient was started on Cipro and Augmentin patient apparently was evaluated by the home care nurse today and noticed to having increasing swelling redness concerning for infection and the patient was advised to go to the ER patient was subsequently brought into the ER on arrival to the ER the patient has been afebrile patient denies having any pain to the left foot wound area patient initial wound of the transmetatarsal amputation site seem to be healing well however the wound on the medial and has increased in size and did have more slough tissue with the bone exposed and some foul-smelling patient on presentation to the hospital noticed to have a normal white count her creatinine has been mildly elevated liver enzymes are normal I was able to review the culture done at [facility] and now growing multidrug- resistant Pseudomonas that is intermediate sensitivity to cefepime and high LEE to Zosyn along with MSSA and VRE Past Medical History Past Medical History: Atrial Fibrillation, Diabetes Mellitus, Hypertension Additional Past Medical History / Comment(s): wound rt foot and rt chin, wound to left pinkey, bilateral toes amputation, kidney failure, CHF, History of Any Multi-Drug Resistant Organisms: None Reported Past Surgical History: Cholecystectomy Additional Past Surgical History / Comment(s): left foot all toes amputated; hematoma removal abdomen Past Anesthesia/Blood Transfusion Reactions: No Reported Reaction Past Psychological History: No Psychological Hx Reported Smoking Status: Never smoker Past Alcohol Use History: None Reported Past Drug Use History: None Reported - Past Family History Sister(s) Family Medical History: Cancer Brother(s) Family Medical History: Cancer Medications and Allergies Home Medications Medication Instructions Recorded Confirmed Type Cyanocobalamin [Vitamin B-12] 500 mcg PO DAILY 06/28/21 04/26/22 History Rivaroxaban [Xarelto] 15 mg PO DAILY 06/28/21 04/26/22 History Clopidogrel [Plavix] 75 mg PO DAILY 30 Days #30 tab 07/25/21 04/26/22 Rx Insulin Lispro [humaLOG Kwikpen] See Protocol SQ TID-W/MEALS 12/02/21 04/26/22 History Folic Acid 1 mg PO DAILY 02/20/22 04/26/22 History Insulin Glargine,Hum.rec.anlog 12 units SQ HS 02/20/22 04/26/22 History [Lantus Solostar Pen] Insulin Lispro [humaLOG Kwikpen] 4 unit SQ AC-TID 02/20/22 04/26/22 History Omeprazole 20 mg PO DAILY 02/20/22 04/26/22 History Potassium Chloride ER [K-Dur 10] 10 meq PO DAILY@1500 02/20/22 04/26/22 History Sodium Bicarbonate Tab 650 mg PO DAILY@1500 02/20/22 04/26/22 History Tamsulosin HCl [Flomax] 0.4 mg PO DAILY 02/20/22 04/26/22 History Acetaminophen Tab [Tylenol] 650 mg PO Q4HR PRN tab 02/23/22 04/26/22 Rx amLODIPine [Norvasc] 5 mg PO DAILY 30 Days #30 tab 02/23/22 04/26/22 Rx hydrALAZINE HCL [Apresoline] 25 mg PO BID 30 Days #60 tab 02/23/22 04/26/22 Rx Albuterol Inhaler [Ventolin Hfa 1 puff INHALATION RT-QID PRN 04/26/22 04/26/22 History Inhaler] Amoxic-Pot Clav 875-125Mg 1 tab PO Q12HR 04/26/22 04/26/22 History [Augmentin 875-125] Budesonide-Formot 160-4.5 Mcg 2 puff INHALATION RT-BID 04/26/22 04/26/22 History [Symbicort 160-4.5 Mcg Inhaler] Ciprofloxacin HCl [Cipro] 500 mg PO Q12HR 04/26/22 04/26/22 History Dulaglutide [Trulicity] 0.75 mg SQ MO 04/26/22 04/26/22 History Empagliflozin [Jardiance] 10 mg PO DAILY 04/26/22 04/26/22 History Furosemide [Lasix] 20 mg PO DAILY 04/26/22 04/26/22 History Simvastatin [Zocor] 10 mg PO HS 04/26/22 04/26/22 History Allergies Allergy/AdvReac Type Severity Reaction Status Date / Time aspirin Allergy Anaphylaxis Verified 04/26/22 19:32 Physical Exam Vitals: Vital Signs Temp Pulse Resp BP Pulse Ox 04/26/22 19:39 51 L 18 172/90 98 04/26/22 12:34 97.8 F 53 L 14 135/66 99 Intake and Output 04/26/22 04/26/22 04/26/22 06:59 14:59 22:59 Other: Weight 64.864 kg Results CBC & Chem 7: 04/26/22 17:29 04/26/22 17:29 Labs: Abnormal Lab Results - Last 24 Hours (Table) 04/26/22 04/26/22 Range/Units 16:51 17:29 Sodium 132 L (137-145) mmol/L Chloride 97 L (98-107) mmol/L BUN 41 H (7-17) mg/dL Creatinine 1.92 H (0.52-1.04) mg/dL Glucose 177 H (74-99) mg/dL POC Glucose (mg/dL) 181 H (70-110) mg/dL Alkaline Phosphatase 147 H (38-126) U/L Total Protein 8.7 H (6.3-8.2) g/dL Assessment and Plan Plan: 1patient with left diabetic foot infection no concerning for osteomyelitis at the medial and of her transmetatarsal amputation site wound with bone exposed palpable to the finger noticed to have slight worsening on oral antibiotic with a cultures done at [facility] did grew VRE MSSA and drug-resistant Pseudomonas. 2recommend vascular surgery evaluation for debridement of this wound and deep culture. 3we will check a CRP and sed rate. 4we will add daptomycin and meropenem while waiting for the condition to stabilize and repeat culture finalized. We will follow on clinical condition and cultures to further adjust medication if needed Thank you for this consultation will follow this patient along with you Time with Patient: Greater than 30
[2022-04-26] MEDS: MEROPENEM 1 GM in SODIUM CHLORIDE 0.9% 100 ML IVPB SCH (22:52)
[2022-04-27 05:58] LABS: Glucose,Whole Blood 188 mg/dL (70-110)
[2022-04-27] MEDS: INSULIN ASPART (NovoLOG) 100 UNIT/ML VIAL SQ SCH ×4 (06:28→20:26)
--- NOTE | 2022-04-27 08:17 | P.HPIM ---
History of Present Illness This is a pleasant 82 years old female with past medical history of diabetes mellitus, hypertension, atrial fibrillation, chronic nonhealing left foot diabetic ulcer Patient presents because of worsening infection of her left foot. Patient SEEN by her brood station manager who referred her to the hospital if she develops worsening of her left foot infection, patient states over the last 3 days scissors more discharge from the left foot stump. Patient has history of left foot forefoot amputation, currently she has no ptosis left on her left foot. There is black eschar on the bedside of the big toe and there is some discharge. No si gnificant surrounding redness but there is tenderness and his hard to confirm cellulitis because of the scar tissue Patient denies any other complaints, no headache dizziness weakness numbness, no dyspnea and dyspnea, no GI or urinary symptoms. Denies fever. Denies smoking alcohol or illicit drugs Vitals are stable and patient is afebrile. Labs reviewed, CBC is unremarkable Sodium slightly low 132, creatinine is elevated 1.9, which is at baseline 1.6- 2.0. Foot x-ray showing soft tissue areas that could be related to cellulitis and gangrene Different enzymes are not elevated As per records patient had positive wound culture done at [facility] showing VRE MSSA and resistant Pseudomonas Review of Systems Review of systems CONSTITUTIONAL: No fever, no malaise, no fatigue. HEENT: No recent visual problems or hearing problems. Denied any sore throat. CARDIOVASCULAR: No orthopnea, PND, no palpitations, no syncope. PULMONARY: No shortness of breath, no cough, no hemoptysis. GASTROINTESTINAL: No diarrhea, no nausea, no vomiting, no abdominal pain. Normoactive bowel sounds. NEUROLOGICAL: No headaches, no weakness, no numbness. HEMATOLOGICAL: Denies any bleeding or petechiae. GENITOURINARY: Denies any burning micturition, frequency, or urgency. MUSCULOSKELETAL/RHEUMATOLOGICAL: Denies any joint pain, swelling, or any muscle pain. ENDOCRINE: Denies any polyuria or polydipsia. Past Medical History Past Medical History: Atrial Fibrillation, Diabetes Mellitus, Hypertension Additional Past Medical History / Comment(s): wound rt foot and rt chin, wound to left pinkey, bilateral toes amputation, kidney failure, CHF, History of Any Multi-Drug Resistant Organisms: None Reported Past Surgical History: Cholecystectomy Additional Past Surgical History / Comment(s): left foot all toes amputated; hematoma removal abdomen Past Anesthesia/Blood Transfusion Reactions: No Reported Reaction Past Psychological History: No Psychological Hx Reported Smoking Status: Never smoker Past Alcohol Use History: None Reported Past Drug Use History: None Reported - Past Family History Sister(s) Family Medical History: Cancer Brother(s) Family Medical History: Cancer Medications and Allergies Home Medications Medication Instructions Recorded Confirmed Type Cyanocobalamin [Vitamin B-12] 500 mcg PO DAILY 06/28/21 04/26/22 History Rivaroxaban [Xarelto] 15 mg PO DAILY 06/28/21 04/26/22 History Clopidogrel [Plavix] 75 mg PO DAILY 30 Days #30 tab 07/25/21 04/26/22 Rx Insulin Lispro [humaLOG Kwikpen] See Protocol SQ TID-W/MEALS 12/02/21 04/26/22 History Folic Acid 1 mg PO DAILY 02/20/22 04/26/22 History Insulin Glargine,Hum.rec.anlog 12 units SQ HS 02/20/22 04/26/22 History [Lantus Solostar Pen] Insulin Lispro [humaLOG Kwikpen] 4 unit SQ AC-TID 02/20/22 04/26/22 History Omeprazole 20 mg PO DAILY 02/20/22 04/26/22 History Potassium Chloride ER [K-Dur 10] 10 meq PO DAILY@1500 02/20/22 04/26/22 History Sodium Bicarbonate Tab 650 mg PO DAILY@1500 02/20/22 04/26/22 History Tamsulosin HCl [Flomax] 0.4 mg PO DAILY 02/20/22 04/26/22 History Acetaminophen Tab [Tylenol] 650 mg PO Q4HR PRN tab 02/23/22 04/26/22 Rx amLODIPine [Norvasc] 5 mg PO DAILY 30 Days #30 tab 02/23/22 04/26/22 Rx hydrALAZINE HCL [Apresoline] 25 mg PO BID 30 Days #60 tab 02/23/22 04/26/22 Rx Albuterol Inhaler [Ventolin Hfa 1 puff INHALATION RT-QID PRN 04/26/22 04/26/22 History Inhaler] Amoxic-Pot Clav 875-125Mg 1 tab PO Q12HR 04/26/22 04/26/22 History [Augmentin 875-125] Budesonide-Formot 160-4.5 Mcg 2 puff INHALATION RT-BID 04/26/22 04/26/22 History [Symbicort 160-4.5 Mcg Inhaler] Ciprofloxacin HCl [Cipro] 500 mg PO Q12HR 04/26/22 04/26/22 History Dulaglutide [Trulicity] 0.75 mg SQ MO 04/26/22 04/26/22 History Empagliflozin [Jardiance] 10 mg PO DAILY 04/26/22 04/26/22 History Furosemide [Lasix] 20 mg PO DAILY 04/26/22 04/26/22 History Simvastatin [Zocor] 10 mg PO HS 04/26/22 04/26/22 History Allergies Allergy/AdvReac Type Severity Reaction Status Date / Time aspirin Allergy Anaphylaxis Verified 04/26/22 19:32 Physical Exam Vitals: Vital Signs Temp Pulse Pulse Resp BP BP Pulse Ox 04/27/22 01:52 98.4 F 90 16 138/74 92 L 04/26/22 21:07 98.0 F 51 L 17 172/74 100 04/26/22 19:39 51 L 18 172/90 98 04/26/22 12:34 97.8 F 53 L 14 135/66 99 Intake and Output 04/26/22 04/27/22 04/27/22 22:59 06:59 14:59 Other: Voiding Method External Catheter # Voids 6 Weight 64.864 kg GENERAL: The patient is alert and oriented x3, not in any acute distress. Well developed, well nourished. HEENT: Pupils are round and equally reacting to light. EOMI. No scleral icterus. No conjunctival pallor. Normocephalic, atraumatic. No pharyngeal erythema. No thyromegaly. CARDIOVASCULAR: S1 and S2 present. No murmurs, rubs, or gallops. PULMONARY: Chest is clear to auscultation, no wheezing or crackles. ABDOMEN: Soft, nontender, nondistended, normoactive bowel sounds. No palpable organomegaly. MUSCULOSKELETAL: No joint swelling or deformity. -EXTREMITIES: No cyanosis, clubbing, or pedal edema. Status post old left forefoot amputation, left foot stump with black eschar at the big toe bed with s ome discharge and surrounding cellulitis, there is scar tissue as well NEUROLOGICAL: Gross neurological examination did not reveal any focal deficits. SKIN: No rashes. no petechiae. Results CBC & Chem 7: 04/26/22 17:29 04/26/22 17:29 Labs: Abnormal Lab Results - Last 24 Hours (Table) 04/26/22 04/26/22 04/26/22 Range/Units 16:51 17:29 21:02 Sodium 132 L (137-145) mmol/L Chloride 97 L (98-107) mmol/L BUN 41 H (7-17) mg/dL Creatinine 1.92 H (0.52-1.04) mg/dL Glucose 177 H (74-99) mg/dL POC Glucose (mg/dL) 181 H 244 H (70-110) mg/dL Alkaline Phosphatase 147 H (38-126) U/L Total Protein 8.7 H (6.3-8.2) g/dL 04/27/22 Range/Units 05:56 Sodium (137-145) mmol/L Chloride (98-107) mmol/L BUN (7-17) mg/dL Creatinine (0.52-1.04) mg/dL Glucose (74-99) mg/dL POC Glucose (mg/dL) 188 H (70-110) mg/dL Alkaline Phosphatase (38-126) U/L Total Protein (6.3-8.2) g/dL Thrombosis Risk Factor Assmnt - Choose All That Apply Each Risk Factor Represents 3 Points: Age 75 years or older Thrombosis Risk Factor Assessment Total Risk Factor Score: 3 Thrombosis Risk Factor Assessment Level: Moderate Risk Assessment and Plan Assessment: Acute worsening diabetic left foot infection with concerns for osteomyelitis, 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, 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 Diabetes mellitus, With hyperglycemia, POA Hypertension Atrial fibrillation chronic nonhealing left foot diabetic ulcer Plan: Follow-up CRP and ESR Check hemoglobin A1c Continue with antibiotics per ID team, currently on daptomycin and meropenem Infectious disease consult Vascular surgery consult Patient was counseled extensively about the need to control her sugar and the ne ed to follow up with gunner's mate as she has stage IV kidney disease and she agrees Patient also stage IV chronic kidney disease, she will need to be established care with gunner's mate, because of this we are going to consult nephrology service while inpatient Labs and medication were reviewed.. Continue same treatment. Continue with symptomatic treatment. Resume home medication. Monitor labs and vitals. DVT and GI prophylaxis. Further recommendations as per clinical course of the patient DVT prophylaxis: Subcutaneous heparin GI Prophylaxis: Pepcid PT/OT: Pending Prognosis is guarded
[2022-04-27] MEDS: hydrALAZINE HCL 25 MG TAB PO SCH ×2 (09:20→20:25)
[2022-04-27] MEDS: SODIUM CHLORIDE 0.9% 1,000 ML IV SCH (09:20)
[2022-04-27] MEDS ORDERED: ALBUTEROL NEBULIZED 2.5 MG/3 ML INHALATION PRN (11:01)
[2022-04-27] MEDS ORDERED: ACETAMINOPHEN TAB 325 MG TAB PO PRN (11:01)
[2022-04-27] MEDS: MEROPENEM 1 GM in SODIUM CHLORIDE 0.9% 100 ML IVPB SCH ×2 (11:27→23:54)
[2022-04-27] MEDS ORDERED: HEPARIN SODIUM 1,000 UN/ML (10ML VL) IV ONE (11:29)
[2022-04-27] MEDS ORDERED: HEPARIN SODIUM 1,000 UN/ML (10ML VL) IV PRN (11:29)
[2022-04-27] MEDS ORDERED: HEPARIN SOD,PORK IN 0.45% NACL 25,000 UNIT in 0.45% NACL 1 250ML.BAG IV SCH (11:30)
[2022-04-27 11:46] LABS: Glucose,Whole Blood 216 mg/dL (70-110)
[2022-04-27 12:11] LABS: Basophils % (A) 0 %; Eosinophils # (A) 0.3 k/uL (0-0.7); Eosinophils % (A) 3 %; HCT 34.6 % (34.0-46.0); HGB 11.3 gm/dL (11.4-16.0); Hypochromasia Slight; Lymphocytes % (A) 12 %; MCH 29.2 pg (25.0-35.0); MCHC 32.8 g/dL (31.0-37.0); MCV 88.9 fL (80.0-100.0); Mean Platelet Volume 8.1; Monocytes # (A) 0.5 k/uL (0-1.0); Monocytes % (A) 6 %; Neutrophils # (A) 6.8 k/uL (1.3-7.7); Neutrophils % (A) 76 %; Platelet Count 263 k/uL (150-450); RBC 3.89 m/uL (3.80-5.40); RDW 13.8 % (11.5-15.5); WBC 8.9 k/uL (3.8-10.6)
--- NOTE | 2022-04-27 12:25 | P.NPCON ---
History of Present Illness - Reason for Consult chronic renal failure - History of Present Illness Reason for consultation: Chronic kidney disease History of present illness: Patient is 82-year-old female seen in consultation for chronic kidney disease. Patient has chronic kidney disease stage IV secondary to diabetic kidney disease and nephrosclerosis with baseline creatinine in the range of 1.8-2. GFR is currently near baseline. Patient has chronic left foot wound and has undergone metatarsal amputations. Patient states she has wound care nurse who saw the patient yesterday and advised her to go to the hospital due to foul-smelling odor and drainage. Patient states that she was just recently started on Augmentin about 2 days ago. No fever. No nausea vomiting or diarrhea. No chest pain or shortness of breath. Blood pressure stable. She is on room air. Oral intake has been good. She's currently receiving IV fluids. Patient does take 20 mg of oral Lasix at home daily. Vital signs are stable. General: Awake. No acute distress. HEENT: Head exam is unremarkable. LUNGS: Breath sounds decreased. HEART: Rate and Rhythm are regular. ABDOMEN: Soft, no distention. EXTREMITITES: No edema. Left foot wound noted. No active drainage. Past Medical History Past Medical History: Atrial Fibrillation, Diabetes Mellitus, Hypertension Additional Past Medical History / Comment(s): wound rt foot and rt chin, wound to left pinkey, bilateral toes amputation, kidney failure, CHF, History of Any Multi-Drug Resistant Organisms: None Reported Past Surgical History: Cholecystectomy Additional Past Surgical History / Comment(s): left foot all toes amputated; hematoma removal abdomen Past Anesthesia/Blood Transfusion Reactions: No Reported Reaction Past Psychological History: No Psychological Hx Reported Smoking Status: Never smoker Past Alcohol Use History: None Reported Past Drug Use History: None Reported - Past Family History Sister(s) Family Medical History: Cancer Brother(s) Family Medical History: Cancer Medications and Allergies Home Medications Medication Instructions Recorded Confirmed Type Cyanocobalamin [Vitamin B-12] 500 mcg PO DAILY 06/28/21 04/26/22 History Rivaroxaban [Xarelto] 15 mg PO DAILY 06/28/21 04/26/22 History Clopidogrel [Plavix] 75 mg PO DAILY 30 Days #30 tab 07/25/21 04/26/22 Rx Insulin Lispro [humaLOG Kwikpen] See Protocol SQ TID-W/MEALS 12/02/21 04/26/22 History Folic Acid 1 mg PO DAILY 02/20/22 04/26/22 History Insulin Glargine,Hum.rec.anlog 12 units SQ HS 02/20/22 04/26/22 History [Lantus Solostar Pen] Insulin Lispro [humaLOG Kwikpen] 4 unit SQ AC-TID 02/20/22 04/26/22 History Omeprazole 20 mg PO DAILY 02/20/22 04/26/22 History Potassium Chloride ER [K-Dur 10] 10 meq PO DAILY@1500 02/20/22 04/26/22 History Sodium Bicarbonate Tab 650 mg PO DAILY@1500 02/20/22 04/26/22 History Tamsulosin HCl [Flomax] 0.4 mg PO DAILY 02/20/22 04/26/22 History Acetaminophen Tab [Tylenol] 650 mg PO Q4HR PRN tab 02/23/22 04/26/22 Rx amLODIPine [Norvasc] 5 mg PO DAILY 30 Days #30 tab 02/23/22 04/26/22 Rx hydrALAZINE HCL [Apresoline] 25 mg PO BID 30 Days #60 tab 02/23/22 04/26/22 Rx Albuterol Inhaler [Ventolin Hfa 1 puff INHALATION RT-QID PRN 04/26/22 04/26/22 History Inhaler] Amoxic-Pot Clav 875-125Mg 1 tab PO Q12HR 04/26/22 04/26/22 History [Augmentin 875-125] Budesonide-Formot 160-4.5 Mcg 2 puff INHALATION RT-BID 04/26/22 04/26/22 History [Symbicort 160-4.5 Mcg Inhaler] Ciprofloxacin HCl [Cipro] 500 mg PO Q12HR 04/26/22 04/26/22 History Dulaglutide [Trulicity] 0.75 mg SQ MO 04/26/22 04/26/22 History Empagliflozin [Jardiance] 10 mg PO DAILY 04/26/22 04/26/22 History Furosemide [Lasix] 20 mg PO DAILY 04/26/22 04/26/22 History Simvastatin [Zocor] 10 mg PO HS 04/26/22 04/26/22 History Allergies Allergy/AdvReac Type Severity Reaction Status Date / Time aspirin Allergy Anaphylaxis Verified 04/26/22 19:32 Physical Exam Vitals: Vital Signs Temp Pulse Pulse Resp BP BP Pulse Ox 04/27/22 07:36 98.0 F 62 17 128/58 100 04/27/22 01:52 98.4 F 90 16 138/74 92 L 04/26/22 21:07 98.0 F 51 L 17 172/74 100 04/26/22 19:39 51 L 18 172/90 98 04/26/22 12:34 97.8 F 53 L 14 135/66 99 Intake and Output 04/26/22 04/27/22 04/27/22 22:59 06:59 14:59 Other: Voiding Method External Catheter External Catheter # Voids 6 Weight 64.864 kg Results - Lab Results Most recent lab results Calcium 8.6 mg/dL (8.4-10.2) 04/26/22 17:29 04/27/22 11:42 04/26/22 17:29 Assessment and Plan Plan: Assessment: 1. 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 GFR at baseline. 2. Left foot wound on antibiotics. Being followed by vascular surgery and infectious disease. 3. Diabetes mellitus. Plan: Maintain oral Lasix. Avoid nephrotoxins. Encourage oral intake. Continue to monitor renal function and urine output. Thank you for the consultation. I will continue to follow the patient with you during her hospital stay.
[2022-04-27 12:31] LABS: INR 1.3 (<1.2); Partial Thromboplastin Time 28.5 sec (22.0-30.0); Prothrombin Time 12.9 sec (9.0-12.0)
--- NOTE | 2022-04-27 13:04 | P.GSCN ---
History of Present Illness Consult date: 04/27/22 Reason for Consult: Left foot necrotic ulcer Requesting physician: Abelardo E Sheet History of present illness: There is a pleasant 82-year-old female with a past medical history including diabetes mellitus, chronic kidney disease, peripheral arterial disease, and atrial fibrillation on Xarelto known to our service who presented to the emergency department for concerns for an infected wound to her left foot. Patient had previous history of revascularization and July of this year followed by a transmetatarsal amputation in August of this year as well as surgical debridement with wound VAC application in September of this year. She has been following with Dr. Campos in the wound care center and TMA has been healing nicely however recently she developed a new ulcer to the medial aspect of the debridement site. Patient's daughter states that it began on Sunday she he was seen in the wound care center on Sunday cultures were taken and she was started on antibiotics. Yesterday she started having increased drainage and foul odor from the wound. The came into the emergency department for further evaluation. Vascular surgery was consulted for possible wound debridement. Patient has been afebrile, no leukocytosis, foot x-ray report soft tissue air that could relate to cellulitis and gangrene. No focal bone distraction. Patient denies any pain to the left foot, no fever, chills body aches. No abdominal pain, chest pain or shortness of breath. She is currently on meropenem and daptomycin. Review of Systems A 14 point review systems was completed all pertinent positives and negatives as stated in the HPI. Past Medical History Past Medical History: Atrial Fibrillation, Diabetes Mellitus, Hypertension Additional Past Medical History / Comment(s): wound rt foot and rt chin, wound to left pinkey, bilateral toes amputation, kidney failure, CHF, History of Any Multi-Drug Resistant Organisms: None Reported Past Surgical History: Cholecystectomy Additional Past Surgical History / Comment(s): left foot all toes amputated; hematoma removal abdomen Past Anesthesia/Blood Transfusion Reactions: No Reported Reaction Past Psychological History: No Psychological Hx Reported Smoking Status: Never smoker Past Alcohol Use History: None Reported Past Drug Use History: None Reported - Past Family History Sister(s) Family Medical History: Cancer Brother(s) Family Medical History: Cancer Medications and Allergies Home Medications Medication Instructions Recorded Confirmed Type Cyanocobalamin [Vitamin B-12] 500 mcg PO DAILY 06/28/21 04/26/22 History Rivaroxaban [Xarelto] 15 mg PO DAILY 06/28/21 04/26/22 History Clopidogrel [Plavix] 75 mg PO DAILY 30 Days #30 tab 07/25/21 04/26/22 Rx Insulin Lispro [humaLOG Kwikpen] See Protocol SQ TID-W/MEALS 12/02/21 04/26/22 History Folic Acid 1 mg PO DAILY 02/20/22 04/26/22 History Insulin Glargine,Hum.rec.anlog 12 units SQ HS 02/20/22 04/26/22 History [Lantus Solostar Pen] Insulin Lispro [humaLOG Kwikpen] 4 unit SQ AC-TID 02/20/22 04/26/22 History Omeprazole 20 mg PO DAILY 02/20/22 04/26/22 History Potassium Chloride ER [K-Dur 10] 10 meq PO DAILY@1500 02/20/22 04/26/22 History Sodium Bicarbonate Tab 650 mg PO DAILY@1500 02/20/22 04/26/22 History Tamsulosin HCl [Flomax] 0.4 mg PO DAILY 02/20/22 04/26/22 History Acetaminophen Tab [Tylenol] 650 mg PO Q4HR PRN tab 02/23/22 04/26/22 Rx amLODIPine [Norvasc] 5 mg PO DAILY 30 Days #30 tab 02/23/22 04/26/22 Rx hydrALAZINE HCL [Apresoline] 25 mg PO BID 30 Days #60 tab 02/23/22 04/26/22 Rx Albuterol Inhaler [Ventolin Hfa 1 puff INHALATION RT-QID PRN 04/26/22 04/26/22 History Inhaler] Amoxic-Pot Clav 875-125Mg 1 tab PO Q12HR 04/26/22 04/26/22 History [Augmentin 875-125] Budesonide-Formot 160-4.5 Mcg 2 puff INHALATION RT-BID 04/26/22 04/26/22 History [Symbicort 160-4.5 Mcg Inhaler] Ciprofloxacin HCl [Cipro] 500 mg PO Q12HR 04/26/22 04/26/22 History Dulaglutide [Trulicity] 0.75 mg SQ MO 04/26/22 04/26/22 History Empagliflozin [Jardiance] 10 mg PO DAILY 04/26/22 04/26/22 History Furosemide [Lasix] 20 mg PO DAILY 04/26/22 04/26/22 History Simvastatin [Zocor] 10 mg PO HS 04/26/22 04/26/22 History Allergies Allergy/AdvReac Type Severity Reaction Status Date / Time aspirin Allergy Anaphylaxis Verified 04/26/22 19:32 Surgical - Exam Vital Signs Temp Pulse Resp BP Pulse Ox 97.8 F 53 L 14 135/66 99 04/26/22 12:34 04/26/22 12:34 04/26/22 12:34 04/26/22 12:34 04/26/22 12:34 General appearance: The patient is alert, oriented, appears in no acute distress. HET: Head is normocephalic and atraumatic. Pupils are equal and reactive. Neck: Supple without lymphadenopathy. Trachea midline. Heart: Regular. Lungs: Equal expansion, normal respiratory effort. Abdomen: Soft, nontender, nondistended. Extremities: Left foot transmetatarsal amputation site healing well except for ulcer to the medial aspect of left foot with surrounding nonviable tissue and bowel smelling drainage, with bone exposure. Neurological: No focal deficits. Strength and sensation are grossly intact. Results - Labs 04/27/22 11:42 04/26/22 17:29 Abnormal Lab Results - Last 24 Hours (Table) 04/26/22 04/26/22 04/26/22 Range/Units 16:51 17:29 21:02 Hgb (11.4-16.0) gm/dL ESR (0-30) mm/Hr PT (9.0-12.0) sec INR (<1.2) Sodium 132 L (137-145) mmol/L Chloride 97 L (98-107) mmol/L BUN 41 H (7-17) mg/dL Creatinine 1.92 H (0.52-1.04) mg/dL Glucose 177 H (74-99) mg/dL POC Glucose (mg/dL) 181 H 244 H (70-110) mg/dL Alkaline Phosphatase 147 H (38-126) U/L C-Reactive Protein (0.00-0.80) mg/dL Total Protein 8.7 H (6.3-8.2) g/dL 04/27/22 04/27/22 04/27/22 Range/Units 05:53 05:53 05:56 Hgb (11.4-16.0) gm/dL ESR 57 H (0-30) mm/Hr PT (9.0-12.0) sec INR (<1.2) Sodium (137-145) mmol/L Chloride (98-107) mmol/L BUN (7-17) mg/dL Creatinine (0.52-1.04) mg/dL Glucose (74-99) mg/dL POC Glucose (mg/dL) 188 H (70-110) mg/dL Alkaline Phosphatase (38-126) U/L C-Reactive Protein 6.60 H (0.00-0.80) mg/dL Total Protein (6.3-8.2) g/dL 04/27/22 04/27/22 04/27/22 Range/Units 11:42 11:42 11:45 Hgb 11.3 L (11.4-16.0) gm/dL ESR (0-30) mm/Hr PT 12.9 H (9.0-12.0) sec INR 1.3 H (<1.2) Sodium (137-145) mmol/L Chloride (98-107) mmol/L BUN (7-17) mg/dL Creatinine (0.52-1.04) mg/dL Glucose (74-99) mg/dL POC Glucose (mg/dL) 216 H (70-110) mg/dL Alkaline Phosphatase (38-126) U/L C-Reactive Protein (0.00-0.80) mg/dL Total Protein (6.3-8.2) g/dL Diabetes panel 04/26/22 Range/Units 17:29 Sodium 132 L (137-145) mmol/L Potassium 4.7 (3.5-5.1) mmol/L Chloride 97 L (98-107) mmol/L Carbon Dioxide 25 (22-30) mmol/L BUN 41 H (7-17) mg/dL Creatinine 1.92 H (0.52-1.04) mg/dL Glucose 177 H (74-99) mg/dL Calcium 8.6 (8.4-10.2) mg/dL AST 24 (14-36) U/L ALT 15 (4-34) U/L Alkaline Phosphatase 147 H (38-126) U/L Total Protein 8.7 H (6.3-8.2) g/dL Albumin 3.9 (3.5-5.0) g/dL Calcium panel 04/26/22 Range/Units 17:29 Calcium 8.6 (8.4-10.2) mg/dL Albumin 3.9 (3.5-5.0) g/dL Pituitary panel 04/26/22 Range/Units 17:29 Sodium 132 L (137-145) mmol/L Potassium 4.7 (3.5-5.1) mmol/L Chloride 97 L (98-107) mmol/L Carbon Dioxide 25 (22-30) mmol/L BUN 41 H (7-17) mg/dL Creatinine 1.92 H (0.52-1.04) mg/dL Glucose 177 H (74-99) mg/dL Calcium 8.6 (8.4-10.2) mg/dL Adrenal panel 04/26/22 Range/Units 17:29 Sodium 132 L (137-145) mmol/L Potassium 4.7 (3.5-5.1) mmol/L Chloride 97 L (98-107) mmol/L Carbon Dioxide 25 (22-30) mmol/L BUN 41 H (7-17) mg/dL Creatinine 1.92 H (0.52-1.04) mg/dL Glucose 177 H (74-99) mg/dL Calcium 8.6 (8.4-10.2) mg/dL Total Bilirubin 0.8 (0.2-1.3) mg/dL AST 24 (14-36) U/L ALT 15 (4-34) U/L Alkaline Phosphatase 147 H (38-126) U/L Total Protein 8.7 H (6.3-8.2) g/dL Albumin 3.9 (3.5-5.0) g/dL Assessment and Plan Assessment: 1. Left diabetic infected foot wound 2. Prior history of gangrene toes status post transmetatarsal amputation done in August 2021 3. Previous surgical debridement of left TMA site done in September 2021 4. Atrial fibrillation on heparin drip 5. Diabetes mellitus 6. Chronic kidney disease Plan: 1. Continue with antibiotics per recommendation from infectious disease 2. Nothing by mouth after midnight 3. Discontinue heparin at 5 AM 4. Patient is tentatively scheduled for surgical debridement tomorrow 5. Local wound care per recommendations from Dr. Campos who has been following inoutpatient setting Thank you for this consultation, we will continue to follow. The impression and plan of care has been dictated as directed. Dr. Don I performed a history and examination of this patient, discussed the same with the dictator. I agree with the dictator's note ,documented as a scribe. Any additional findings or plans will be noted.
[2022-04-27 16:23] LABS: Glucose,Whole Blood 167 mg/dL (70-110)
[2022-04-27 19:43] LABS: Glucose,Whole Blood 154 mg/dL (70-110)
[2022-04-27] MEDS: SYMBICORT 160-4.5 MCG INHALER INHALATION SCH (19:43)
[2022-04-27] MEDS: ATORVASTATIN 10 MG TAB PO SCH (20:25)
[2022-04-27] MEDS: INSULIN DETEMIR (LEVEMIR) 100 UNIT/ML SYR SQ SCH (20:26)
[2022-04-28 06:09] LABS: Glucose,Whole Blood 92 mg/dL (70-110)
[2022-04-28] MEDS: INSULIN ASPART (NovoLOG) 100 UNIT/ML VIAL SQ SCH ×4 (06:19→21:21)
[2022-04-28 07:58] LABS: INR 1.2 (<1.2); Prothrombin Time 12.6 sec (9.0-12.0)
[2022-04-28] MEDS: SYMBICORT 160-4.5 MCG INHALER INHALATION SCH ×2 (08:51→21:09)
[2022-04-28 10:29] LABS: Glucose,Whole Blood 83 mg/dL (70-110)
[2022-04-28] MEDS ORDERED: LACTATED RINGERS 1,000 ML IV ONE ×2 (10:33)
[2022-04-28] MEDS ORDERED: ONDANSETRON 4 MG/2 ML VIAL ONE (10:35)
[2022-04-28] MEDS ORDERED: ONDANSETRON 4 MG/2 ML VIAL IVP ONE (10:37)
[2022-04-28 10:42] LABS: Basophils # (A) 0.03 X 10*3/uL (0.00-0.10); Basophils % (A) 0.4 %; Eosinophils % (A) 5.1 %; HCT 33.4 % (37.2-46.3); HGB 10.4 g/dL (12.0-15.0); Immature Grans, Automated 0.4 %; Lymphocytes # (A) 1.38 X 10*3/uL (0.90-5.00); Lymphocytes % (A) 17.5 %; MCHC 31.1 g/dL (32.0-37.0); Mean Platelet Volume 10.3 fL (9.5-12.2); Monocytes # (A) 0.85 X 10*3/uL (0.20-1.00); Monocytes % (A) 10.8 %; NRBC Per 100 WBC 0 /100 WBCS (0.0-0.0); Neutrophils % (A) 65.8 %; Platelet Count 263 X 10*3/uL (140-440); RBC 3.71 X 10*6/uL (4.10-5.20); RDW 14.1 % (11.5-14.5); WBC 7.89 X 10*3/uL (4.50-10.00)
--- NOTE | 2022-04-28 11:32 | P.OP ---
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 When evaluated there was exposed bone and purulent drainage expressed and therefore need for debridement and deep cultures. Operative Findings: exposed 1st metatarsal with abscess pocket extending to the plantar and dorsal aspect of the foot. Description of Procedure: After written and informed consent was obtained and all risks benefits and complications were described the patient was brought to the operative suite and laid in the supine position. The area of the left foot was prepped and draped in usual sterile fashion after appropriate anesthetic was performed per the anesthesiologist. Timeout was performed in normal fashion and patient is currently on antibiotics. The wound on the medial aspect of the transmetatarsal amputation site was evaluated and interrogated with exposed bone noted and a large amount of purulent drainage. Cultures were obtained at that time. Utilizing a rongeur the metatarsal bone was removed back to bleeding tissue. All purulent drainage was expressed. A small extension and incision was needed to expose the abscess pocket and this was performed with a 15 blade scalpel. The area was copiously irrigated until no further purulent drainage was noted. The wound was then packed with iodoform gauze. The skin was cleansed and dressings were placed 4 x 4, followed by Kerlix. Patient tolerated the proce dure well and was sent to PACU for recovery.
--- NOTE | 2022-04-28 11:54 | P.PN ---
Subjective Patient is seen in follow-up for chronic kidney disease. Resting in bed. Scheduled for drainage of foot abscess by vascular surgery today. Oral intake has been fair. No active complaints. Vital signs are stable. General: Awake. No acute distress. HEENT: Head exam is unremarkable. LUNGS: Breath sounds decreased. HEART: Rate and Rhythm are regular. ABDOMEN: Soft, no distention. EXTREMITITES: Drainage from left foot noted. No edema. Objective - Vital Signs Vital signs: Vital Signs Temp 98.1 F 04/28/22 11:24 Pulse 60 04/28/22 11:34 Resp 16 04/28/22 11:34 BP 124/56 04/28/22 11:34 Pulse Ox 100 04/28/22 11:34 FiO2 Intake & Output 04/27/22 04/28/22 04/28/22 18:59 06:59 18:59 Intake Total 49.039 59.481 500 Output Total 250 1200 2 Balance -200.961 -1140.519 498 Intake: IV 500 Intake, IV Titration 49.039 59.481 Amount Heparin Sod,Pork in 0.45% 49.039 59.481 NaCl 25,000 unit In 0.45 % NaCl 1 250ml.bag @ 12 UNITS/KG/HR 7.784 mls/hr IV .Q24H [facility] Rx#: [id number] Output: Urine 250 1200 Estimated Blood Loss 2 Other: Voiding Method External Catheter External Catheter - Labs CBC & Chem 7: 04/28/22 06:56 04/26/22 17:29 Labs: Abnormal Lab Results - Last 24 Hours (Table) 04/27/22 04/27/22 04/27/22 Range/Units 11:42 11:42 16:21 RBC (4.10-5.20) X 10*6/uL Hgb 11.3 L (11.4-16.0) gm/dL Hct (37.2-46.3) % MCHC (32.0-37.0) g/dL Eosinophils # (0.04-0.35) X 10*3/uL PT 12.9 H (9.0-12.0) sec INR 1.3 H (<1.2) APTT (22.0-30.0) sec POC Glucose (mg/dL) 167 H (70-110) mg/dL Hemoglobin A1c (0.0-6.0) % 04/27/22 04/27/22 04/27/22 Range/Units 18:03 19:42 23:33 RBC (4.10-5.20) X 10*6/uL Hgb (11.4-16.0) gm/dL Hct (37.2-46.3) % MCHC (32.0-37.0) g/dL Eosinophils # (0.04-0.35) X 10*3/uL PT (9.0-12.0) sec INR (<1.2) APTT 35.3 H 39.3 H (22.0-30.0) sec POC Glucose (mg/dL) 154 H (70-110) mg/dL Hemoglobin A1c (0.0-6.0) % 04/28/22 04/28/22 04/28/22 Range/Units 06:56 06:56 06:56 RBC 3.71 L (4.10-5.20) X 10*6/uL Hgb 10.4 L (11.4-16.0) gm/dL Hct 33.4 L (37.2-46.3) % MCHC 31.1 L (32.0-37.0) g/dL Eosinophils # 0.40 H (0.04-0.35) X 10*3/uL PT 12.6 H (9.0-12.0) sec INR 1.2 H (<1.2) APTT 51.0 H (22.0-30.0) sec POC Glucose (mg/dL) (70-110) mg/dL Hemoglobin A1c 9.1 H (0.0-6.0) % Microbiology - Last 24 Hours (Table) 04/26/22 17:45 Blood Culture - Preliminary Blood No Growth after 24 hours 04/26/22 17:29 Blood Culture - Preliminary Blood No Growth after 24 hours Assessment and Plan Plan: Assessment: 1. 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 GFR at baseline. 2. Left foot wound on antibiotics. Being followed by vascular surgery and infectious disease. Scheduled for drainage of abscess today. 3. Diabetes mellitus. Plan: Maintain oral Lasix. Avoid nephrotoxins. Encourage oral intake. Continue to monitor renal function and urine output. Repeat labs in the morning.
[2022-04-28] MEDS: MEROPENEM 1 GM in SODIUM CHLORIDE 0.9% 100 ML IVPB SCH ×2 (13:27→23:10)
[2022-04-28] MEDS: FOLIC ACID 1 MG TAB PO SCH (14:14)
[2022-04-28] MEDS: CYANOCOBALAMIN 500 MCG TAB PO SCH (14:14)
[2022-04-28] MEDS: amLODIPine 5 MG TAB PO SCH (14:14)
[2022-04-28] MEDS: TAMSULOSIN 0.4 MG CAP.ER.24H PO SCH (14:14)
[2022-04-28] MEDS: hydrALAZINE HCL 25 MG TAB PO SCH ×2 (14:14→21:22)
[2022-04-28] MEDS: FUROSEMIDE 20 MG TAB PO SCH (14:14)
[2022-04-28 16:48] LABS: Glucose,Whole Blood 212 mg/dL (70-110)
[2022-04-28 20:09] LABS: Glucose,Whole Blood 248 mg/dL (70-110)
--- NOTE | 2022-04-28 20:20 | P.PN ---
Subjective Progress Note Date: 04/28/22 82 years old female with past medical history of diabetes mellitus, hypertension, atrial fibrillation, chronic nonhealing left foot diabetic ulcer Patient presents because of worsening infection of her left foot. Patient SEEN by her casino floor supervisor who referred her to the hospital if she develops worsening of her left foot infection, patient states over the last 3 days scissors more discharge from the left foot stump. Patient has history of left foot forefoot amputation, currently she has no ptosis left on her left foot. There is black eschar on the bedside of the big toe and there is some discharge. No significant surrounding redness but there is tenderness and his hard to confirm cellulitis because of the scar tissue Patient denies any other complaints, no headache dizziness weakness numbness, no dyspnea and dyspnea, no GI or urinary symptoms. Denies fever. Denies smoking alcohol or illicit drugs Vitals are stable and patient is afebrile. Labs reviewed, CBC is unremarkable Sodium slightly low 132, creatinine is elevated 1.9, which is at baseline 1.6- 2.0. Foot x-ray showing soft tissue areas that could be related to cellulitis and gangrene Different enzymes are not elevated As per records patient had positive wound culture done at [facility] showing VRE MSSA and resistant Pseudomonas Objective - Vital Signs Vital signs: Vital Signs Temp 97.9 F 04/28/22 14:00 Pulse 67 04/28/22 14:00 Resp 17 04/28/22 14:00 BP 169/68 04/28/22 14:00 Pulse Ox 100 04/28/22 14:00 FiO2 Intake & Output 04/27/22 04/28/22 04/28/22 18:59 06:59 18:59 Intake Total 49.039 59.481 600 Output Total 250 1200 2 Balance -200.961 -1140.519 598 Intake: IV 600 Intake, IV Titration 49.039 59.481 Amount Heparin Sod,Pork in 0.45% 49.039 59.481 NaCl 25,000 unit In 0.45 % NaCl 1 250ml.bag @ 12 UNITS/KG/HR 7.784 mls/hr IV .Q24H [facility] Rx#: [id number] Output: Urine 250 1200 Estimated Blood Loss 2 Other: Voiding Method External Catheter External Catheter External Catheter - Exam GENERAL: The patient is alert and oriented x3, not in any acute distress. Well developed, well nourished. HEENT: Pupils are round and equally reacting to light. EOMI. No scleral icterus. No conjunctival pallor. Normocephalic, atraumatic. No pharyngeal erythema. No thyromegaly. CARDIOVASCULAR: S1 and S2 present. No murmurs, rubs, or gallops. PULMONARY: Chest is clear to auscultation, no wheezing or crackles. ABDOMEN: Soft, nontender, nondistended, normoactive bowel sounds. No palpable organomegaly. MUSCULOSKELETAL: No joint swelling or deformity. -EXTREMITIES: No cyanosis, clubbing, or pedal edema. 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 SKIN: No rashes. no petechiae. - Labs CBC & Chem 7: 04/28/22 06:56 04/26/22 17:29 Labs: Abnormal Lab Results - Last 24 Hours (Table) 04/27/22 04/27/22 04/27/22 Range/Units 16:21 18:03 19:42 RBC (4.10-5.20) X 10*6/uL Hgb (12.0-15.0) g/dL Hct (37.2-46.3) % MCHC (32.0-37.0) g/dL Eosinophils # (0.04-0.35) X 10*3/uL PT (9.0-12.0) sec INR (<1.2) APTT 35.3 H (22.0-30.0) sec POC Glucose (mg/dL) 167 H 154 H (70-110) mg/dL Hemoglobin A1c (0.0-6.0) % 04/27/22 04/28/22 04/28/22 Range/Units 23:33 06:56 06:56 RBC 3.71 L (4.10-5.20) X 10*6/uL Hgb 10.4 L (12.0-15.0) g/dL Hct 33.4 L (37.2-46.3) % MCHC 31.1 L (32.0-37.0) g/dL Eosinophils # 0.40 H (0.04-0.35) X 10*3/uL PT (9.0-12.0) sec INR (<1.2) APTT 39.3 H (22.0-30.0) sec POC Glucose (mg/dL) (70-110) mg/dL Hemoglobin A1c 9.1 H (0.0-6.0) % 04/28/22 Range/Units 06:56 RBC (4.10-5.20) X 10*6/uL Hgb (12.0-15.0) g/dL Hct (37.2-46.3) % MCHC (32.0-37.0) g/dL Eosinophils # (0.04-0.35) X 10*3/uL PT 12.6 H (9.0-12.0) sec INR 1.2 H (<1.2) APTT 51.0 H (22.0-30.0) sec POC Glucose (mg/dL) (70-110) mg/dL Hemoglobin A1c (0.0-6.0) % Microbiology - Last 24 Hours (Table) 04/26/22 17:45 Blood Culture - Preliminary Blood No Growth after 24 hours 04/26/22 17:29 Blood Culture - Preliminary Blood No Growth after 24 hours Assessment and Plan Assessment: Acute worsening diabetic left foot infection with concerns for osteomyelitis, 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, 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 Diabetes mellitus, With hyperglycemia, POA Hypertension Atrial fibrillation chronic nonhealing left foot diabetic ulcer Plan: Follow-up CRP and ESR Check hemoglobin A1c Continue with antibiotics per ID team, currently on daptomycin and meropenem Infectious disease consult Vascular surgery consult Patient was counseled extensively about the need to control her sugar and the need to follow up with corduroy brusher operator as she has stage IV kidney disease and she agrees Patient also stage IV chronic kidney disease, she will need to be established care with corduroy brusher operator, because of this we are going to consult nephrology service while inpatient Labs and medication were reviewed.. Continue same treatment. Continue with symptomatic treatment. Resume home medication. Monitor labs and vitals. DVT and GI prophylaxis. Further recommendations as per clinical course of the patient DVT prophylaxis: Subcutaneous heparin GI Prophylaxis: Pepcid PT/OT: Pending Prognosis is guarded
[2022-04-28] MEDS: SODIUM CHLORIDE 0.9% 1,000 ML IV SCH ×2 (21:21→23:12)
[2022-04-28] MEDS: ATORVASTATIN 10 MG TAB PO SCH (21:22)
[2022-04-28] MEDS: INSULIN DETEMIR (LEVEMIR) 100 UNIT/ML SYR SQ SCH (21:24)
[2022-04-29 06:17] LABS: Glucose,Whole Blood 78 mg/dL (70-110)
[2022-04-29] MEDS: INSULIN ASPART (NovoLOG) 100 UNIT/ML VIAL SQ SCH ×4 (06:21→21:24)
[2022-04-29] MEDS: RIVAROXABAN 15 MG TAB PO SCH (08:16)
[2022-04-29] MEDS: amLODIPine 5 MG TAB PO SCH (08:16)
[2022-04-29] MEDS: TAMSULOSIN 0.4 MG CAP.ER.24H PO SCH (08:16)
[2022-04-29] MEDS: CYANOCOBALAMIN 500 MCG TAB PO SCH (08:17)
[2022-04-29] MEDS: FUROSEMIDE 20 MG TAB PO SCH (08:17)
[2022-04-29] MEDS: FOLIC ACID 1 MG TAB PO SCH (08:17)
[2022-04-29] MEDS: hydrALAZINE HCL 25 MG TAB PO SCH ×2 (08:17→21:24)
[2022-04-29] MEDS: SYMBICORT 160-4.5 MCG INHALER INHALATION SCH ×2 (09:01→20:35)
[2022-04-29 09:24] LABS: Basophils # (A) 0.02 X 10*3/uL (0.00-0.10); Basophils % (A) 0.2 %; Eosinophils # (A) 0.46 X 10*3/uL (0.04-0.35); Eosinophils % (A) 4.9 %; HCT 32.3 % (37.2-46.3); HGB 10.1 g/dL (12.0-15.0); Immature Grans, Automated 0.5 %; Lymphocytes # (A) 2.13 X 10*3/uL (0.90-5.00); Lymphocytes % (A) 22.5 %; MCH 28.1 pg (27.0-32.0); MCHC 31.3 g/dL (32.0-37.0); Monocytes # (A) 1.18 X 10*3/uL (0.20-1.00); Monocytes % (A) 12.5 %; NRBC Per 100 WBC 0 /100 WBCS (0.0-0.0); Neutrophils # (A) 5.63 X 10*3/uL (1.80-7.70); Neutrophils % (A) 59.4 %; Platelet Count 256 X 10*3/uL (140-440); RBC 3.59 X 10*6/uL (4.10-5.20); RDW 14.1 % (11.5-14.5); WBC 9.47 X 10*3/uL (4.50-10.00)
[2022-04-29 10:53] LABS: African American GFR (CKD) 32.2 (60.0-200.0); Anion Gap 10.1 mmol/L (10.00-18.00); BUN/Creat Ratio 15.12 Ratio (12.00-20.00); Blood Urea Nitrogen 25.7 mg/dL (9.0-27.0); Calcium 8.5 mg/dL (8.7-10.3); Carbon Dioxide 23.9 mmol/L (20.0-27.5); Non-African American GFR(CKD) 27.8 (60.0-200.0); Potassium 4.1 mmol/L (3.5-5.5)
[2022-04-29] MEDS: MEROPENEM 1 GM in SODIUM CHLORIDE 0.9% 100 ML IVPB SCH ×2 (10:53→22:54)
--- NOTE | 2022-04-29 11:02 | P.PN ---
Subjective Patient is seen in follow-up for chronic kidney disease. Renal function better. Oral intake fair. Hemodynamically stable. No active complaints. Vital signs are stable. General: Awake. No acute distress. HEENT: Head exam is unremarkable. LUNGS: Breath sounds decreased. HEART: Rate and Rhythm are regular. ABDOMEN: Soft, no distention. EXTREMITITES: No edema. No drainage noted. Objective - Vital Signs Vital signs: Vital Signs Temp 98.2 F 04/29/22 08:00 Pulse 73 04/29/22 08:00 Resp 18 04/29/22 08:00 BP 124/64 04/29/22 08:00 Pulse Ox 97 04/29/22 08:00 FiO2 Intake & Output 04/28/22 04/29/22 04/29/22 18:59 06:59 18:59 Intake Total 1260 Output Total 402 2600 Balance 858 -2600 Intake: IV 600 Intake, IV Titration 180 Amount Meropenem 1 gm In Sodium 100 Chloride 0.9% 100 ml @ 33 .3 mls/hr IVPB Q12H [facility] Rx#:[id number] Sodium Chloride 0.9% 1, 80 000 ml @ 75 mls/hr IV . [id number] [facility] Rx#:[id number] Oral 480 Output: Urine 400 2600 Estimated Blood Loss 2 Other: Voiding Method External Catheter External Catheter External Catheter - Labs CBC & Chem 7: 04/29/22 06:24 04/29/22 06:24 Labs: Abnormal Lab Results - Last 24 Hours (Table) 04/28/22 04/28/22 04/29/22 Range/Units 16:47 20:06 06:24 RBC (4.10-5.20) X 10*6/uL Hgb (12.0-15.0) g/dL Hct (37.2-46.3) % MCHC (32.0-37.0) g/dL Immature Gran # (0.00-0.04) X 10*3/uL Monocytes # (0.20-1.00) X 10*3/uL Eosinophils # (0.04-0.35) X 10*3/uL Sodium 134 L (135-145) mmol/L Creatinine 1.7 H (0.6-1.5) mg/dL Est GFR (CKD-EPI)AfAm 32.2 L (60.0-200.0) Est GFR (CKD-EPI)NonAf 27.8 L (60.0-200.0) Glucose 59 L (70-110) mg/dL POC Glucose (mg/dL) 212 H 248 H (70-110) mg/dL Calcium 8.5 L (8.7-10.3) mg/dL 04/29/22 Range/Units 06:24 RBC 3.59 L (4.10-5.20) X 10*6/uL Hgb 10.1 L (12.0-15.0) g/dL Hct 32.3 L (37.2-46.3) % MCHC 31.3 L (32.0-37.0) g/dL Immature Gran # 0.05 H (0.00-0.04) X 10*3/uL Monocytes # 1.18 H (0.20-1.00) X 10*3/uL Eosinophils # 0.46 H (0.04-0.35) X 10*3/uL Sodium (135-145) mmol/L Creatinine (0.6-1.5) mg/dL Est GFR (CKD-EPI)AfAm (60.0-200.0) Est GFR (CKD-EPI)NonAf (60.0-200.0) Glucose (70-110) mg/dL POC Glucose (mg/dL) (70-110) mg/dL Calcium (8.7-10.3) mg/dL Microbiology - Last 24 Hours (Table) 04/28/22 11:15 Gram Stain - Preliminary Foot - Left Wound Culture - Preliminary 04/28/22 11:15 Gram Stain - Preliminary Foot - Left Wound Culture - Preliminary 04/26/22 17:45 Blood Culture - Preliminary Blood No Growth after 48 hours 04/26/22 17:29 Blood Culture - Preliminary Blood No Growth after 48 hours 04/28/22 11:15 Anaerobic Culture - Preliminary Foot - Left 04/28/22 11:15 Anaerobic Culture - Preliminary Foot - Left Assessment and Plan Plan: Assessment: 1. 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 GFR at baseline. 2. Left foot wound on antibiotics. Being followed by vascular surgery and infectious disease. Status post excisional debridement on 04/28/2022. 3. Diabetes mellitus. Plan: Maintain oral Lasix. Avoid nephrotoxins. Encourage oral intake. Continue to monitor renal function and urine output.
[2022-04-29 11:27] LABS: Glucose,Whole Blood 177 mg/dL (70-110)
[2022-04-29 13:55] VITALS: BMI 23.1
[2022-04-29 16:32] LABS: Glucose,Whole Blood 123 mg/dL (70-110)
--- NOTE | 2022-04-29 18:59 | P.PN ---
Subjective Progress Note Date: 04/29/22 Principal diagnosis: Acute worsening diabetic left foot infection/possible osteomyelitis 82 years old female with past medical history of diabetes mellitus, hypertension, atrial fibrillation, chronic nonhealing left foot diabetic ulcer Patient presents because of worsening infection of her left foot. Patient SEEN by her senior investment manager who referred her to the hospital if she develops worsening of her left foot infection, patient states over the last 3 days scissors more discharge from the left foot stump. Patient has history of left foot forefoot amputation, currently she has no ptosis left on her left foot. There is black eschar on the bedside of the big toe and there is some discharge. No significant surrounding redness but there is tenderness and his hard to confirm cellulitis because of the scar tissue Patient denies any other complaints, no headache dizziness weakness numbness, no dyspnea and dyspnea, no GI or urinary symptoms. Denies fever. Denies smoking alcohol or illicit drugs Vitals are stable and patient is afebrile. Labs reviewed, CBC is unremarkable Sodium slightly low 132, creatinine is elevated 1.9, which is at baseline 1.6- 2.0. Foot x-ray showing soft tissue areas that could be related to cellulitis and gangrene Different enzymes are not elevated As per records patient had positive wound culture done at [facility] showing VRE MSSA and resistant Pseudomonas 04/29/2022 82 year old female with history of left transmetatarsal amputation with incisional dehiscence and chronic wound that has been treated at the wound care and is currently admitted on antibiotics. When evaluated there was exposed bone and purulent drainage expressed and therefore need for debridement and deep cultures. Patient is status post excisional debridement of left transmetatarsal wound with deep for cultures - Remains on IV antibiotics final recommendations pending the tissue cultures Objective - Vital Signs Vital signs: Vital Signs Temp 98.2 F 04/29/22 08:00 Pulse 73 04/29/22 08:00 Resp 18 04/29/22 08:00 BP 124/64 04/29/22 08:00 Pulse Ox 97 04/29/22 08:00 FiO2 Intake & Output 04/28/22 04/29/22 04/29/22 18:59 06:59 18:59 Intake Total 1260 Output Total 402 2600 Balance 858 -2600 Intake: IV 600 Intake, IV Titration 180 Amount Meropenem 1 gm In Sodium 100 Chloride 0.9% 100 ml @ 33 .3 mls/hr IVPB Q12H [facility] Rx#:[id number] Sodium Chloride 0.9% 1, 80 000 ml @ 75 mls/hr IV . [id number] [facility] Rx#:[id number] Oral 480 Output: Urine 400 2600 Estimated Blood Loss 2 Other: Voiding Method External Catheter External Catheter External Catheter - Exam GENERAL: The patient is alert and oriented x3, not in any acute distress. Well developed, well nourished. HEENT: Pupils are round and equally reacting to light. EOMI. No scleral icterus. No conjunctival pallor. Normocephalic, atraumatic. No pharyngeal erythema. No thyromegaly. CARDIOVASCULAR: S1 and S2 present. No murmurs, rubs, or gallops. PULMONARY: Chest is clear to auscultation, no wheezing or crackles. ABDOMEN: Soft, nontender, nondistended, normoactive bowel sounds. No palpable organomegaly. MUSCULOSKELETAL: No joint swelling or deformity. -EXTREMITIES: No cyanosis, clubbing, or pedal edema. 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 SKIN: No rashes. no petechiae. - Labs CBC & Chem 7: 04/29/22 06:24 04/29/22 06:24 Labs: Abnormal Lab Results - Last 24 Hours (Table) 04/28/22 04/28/22 04/29/22 Range/Units 16:47 20:06 06:24 RBC (4.10-5.20) X 10*6/uL Hgb (12.0-15.0) g/dL Hct (37.2-46.3) % MCHC (32.0-37.0) g/dL Immature Gran # (0.00-0.04) X 10*3/uL Monocytes # (0.20-1.00) X 10*3/uL Eosinophils # (0.04-0.35) X 10*3/uL Sodium 134 L (135-145) mmol/L Creatinine 1.7 H (0.6-1.5) mg/dL Est GFR (CKD-EPI)AfAm 32.2 L (60.0-200.0) Est GFR (CKD-EPI)NonAf 27.8 L (60.0-200.0) Glucose 59 L (70-110) mg/dL POC Glucose (mg/dL) 212 H 248 H (70-110) mg/dL Calcium 8.5 L (8.7-10.3) mg/dL 04/29/22 04/29/22 Range/Units 06:24 11:26 RBC 3.59 L (4.10-5.20) X 10*6/uL Hgb 10.1 L (12.0-15.0) g/dL Hct 32.3 L (37.2-46.3) % MCHC 31.3 L (32.0-37.0) g/dL Immature Gran # 0.05 H (0.00-0.04) X 10*3/uL Monocytes # 1.18 H (0.20-1.00) X 10*3/uL Eosinophils # 0.46 H (0.04-0.35) X 10*3/uL Sodium (135-145) mmol/L Creatinine (0.6-1.5) mg/dL Est GFR (CKD-EPI)AfAm (60.0-200.0) Est GFR (CKD-EPI)NonAf (60.0-200.0) Glucose (70-110) mg/dL POC Glucose (mg/dL) 177 H (70-110) mg/dL Calcium (8.7-10.3) mg/dL Microbiology - Last 24 Hours (Table) 04/28/22 11:15 Gram Stain - Preliminary Foot - Left Wound Culture - Preliminary 04/28/22 11:15 Gram Stain - Preliminary Foot - Left Wound Culture - Preliminary 04/26/22 17:45 Blood Culture - Preliminary Blood No Growth after 48 hours 04/26/22 17:29 Blood Culture - Preliminary Blood No Growth after 48 hours 04/28/22 11:15 Anaerobic Culture - Preliminary Foot - Left 04/28/22 11:15 Anaerobic Culture - Preliminary Foot - Left Assessment and Plan Assessment: Acute worsening diabetic left foot infection with concerns for osteomyelitis, 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, 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 Diabetes mellitus, With hyperglycemia, POA Hypertension Atrial fibrillation chronic nonhealing left foot diabetic ulcer Plan: Follow-up CRP and ESR Check hemoglobin A1c Continue with antibiotics per ID team, currently on daptomycin and meropenem Infectious disease consult Vascular surgery consult Patient was counseled extensively about the need to control her sugar and the n eed to follow up with ichthyologist as she has stage IV kidney disease and she agrees Patient also stage IV chronic kidney disease, she will need to be established care with ichthyologist, because of this we are going to consult nephrology service while inpatient Labs and medication were reviewed.. Continue same treatment. Continue with symptomatic treatment. Resume home medication. Monitor labs and vitals. DVT and GI prophylaxis. Further recommendations as per clinical course of the patient DVT prophylaxis: Subcutaneous heparin GI Prophylaxis: Pepcid PT/OT: Pending Prognosis is guarded
[2022-04-29 21:14] LABS: Glucose,Whole Blood 229 mg/dL (70-110)
[2022-04-29] MEDS: SODIUM CHLORIDE 0.9% 1,000 ML IV SCH ×2 (21:17→22:55)
[2022-04-29] MEDS: INSULIN DETEMIR (LEVEMIR) 100 UNIT/ML SYR SQ SCH (21:17)
[2022-04-29] MEDS: ATORVASTATIN 10 MG TAB PO SCH (21:24)
--- NOTE | 2022-04-30 00:30 | P.PN ---
Subjective Progress Note Date: 04/27/22 Principal diagnosis: Left diabetic foot infection with osteomyelitis Patient is a 82-year-old female with a past medical history difficult for left diabetic foot infection requiring transmetatarsal amputation of the left foot and this patient wound was healing however developing a new wound on the medial aspect with the bone exposed concerning for osteomyelitis. On today's evaluation that is 04/27/2022, the patient denies having any fever or any chills patient is breathing comfortably denies any chest pain shortness of breath or cough no abdominal pain no pain to the left foot area Objective - Vital Signs Vital signs: Vital Signs Temp 98.1 F 04/27/22 14:20 Pulse 53 L 04/27/22 14:20 Resp 18 04/27/22 14:20 BP 151/76 04/27/22 14:20 Pulse Ox 98 04/27/22 14:20 FiO2 Intake & Output 04/26/22 04/27/22 04/27/22 18:59 06:59 18:59 Weight 64.864 kg 64.864 kg Other: Voiding Method External Catheter External Catheter # Voids 6 - Exam GENERAL DESCRIPTION: Elderly female lying in bed, no distress. No tachypnea or accessory muscle of respiration use. LUNGS: Unlabored breathing. Clear to auscultation anteriorly. No wheeze or crackle. HEART: S1, S2, regular rate and rhythm. No loud murmur ABDOMEN: Soft, no tenderness , guarding or rigidity, no organomegaly EXTREMITIES left foot is currently dressed no drainage on the dressing. - Labs CBC & Chem 7: 04/29/22 06:24 04/29/22 06:24 Labs: Abnormal Lab Results - Last 24 Hours (Table) 04/26/22 04/26/22 04/26/22 Range/Units 16:51 17:29 21:02 Hgb (11.4-16.0) gm/dL ESR (0-30) mm/Hr PT (9.0-12.0) sec INR (<1.2) Sodium 132 L (137-145) mmol/L Chloride 97 L (98-107) mmol/L BUN 41 H (7-17) mg/dL Creatinine 1.92 H (0.52-1.04) mg/dL Glucose 177 H (74-99) mg/dL POC Glucose (mg/dL) 181 H 244 H (70-110) mg/dL Alkaline Phosphatase 147 H (38-126) U/L C-Reactive Protein (0.00-0.80) mg/dL Total Protein 8.7 H (6.3-8.2) g/dL 04/27/22 04/27/22 04/27/22 Range/Units 05:53 05:53 05:56 Hgb (11.4-16.0) gm/dL ESR 57 H (0-30) mm/Hr PT (9.0-12.0) sec INR (<1.2) Sodium (137-145) mmol/L Chloride (98-107) mmol/L BUN (7-17) mg/dL Creatinine (0.52-1.04) mg/dL Glucose (74-99) mg/dL POC Glucose (mg/dL) 188 H (70-110) mg/dL Alkaline Phosphatase (38-126) U/L C-Reactive Protein 6.60 H (0.00-0.80) mg/dL Total Protein (6.3-8.2) g/dL 04/27/22 04/27/22 04/27/22 Range/Units 11:42 11:42 11:45 Hgb 11.3 L (11.4-16.0) gm/dL ESR (0-30) mm/Hr PT 12.9 H (9.0-12.0) sec INR 1.3 H (<1.2) Sodium (137-145) mmol/L Chloride (98-107) mmol/L BUN (7-17) mg/dL Creatinine (0.52-1.04) mg/dL Glucose (74-99) mg/dL POC Glucose (mg/dL) 216 H (70-110) mg/dL Alkaline Phosphatase (38-126) U/L C-Reactive Protein (0.00-0.80) mg/dL Total Protein (6.3-8.2) g/dL Assessment and Plan (1) Diabetic infection of left foot Current Visit: Yes Status: Acute Code(s): E11.628 - TYPE 2 DIABETES MELLITUS WITH OTHER SKIN COMPLICATIONS; L08.9 - LOCAL INFECTION OF THE SKIN AND SUBCUTANEOUS TISSUE, UNSP SNOMED Code(s): 75268252 Plan: 1patient with left diabetic foot infection no concerning for osteomyelitis at the medial and of her transmetatarsal amputation site wound with bone exposed palpable to the finger noticed to have slight worsening on oral antibiotic with a cultures done at [facility] did grew VRE MSSA and drug-resistant Pseudomonas. 2pt has been evaluated by vascular surgery evaluation awaiting debridement of this wound and deep culture. 3 Pt to contiue with daptomycin and meropenem while waiting for the condition to stabilize and repeat culture finalized. Time with Patient: Less than 30
--- NOTE | 2022-04-30 00:32 | P.PN ---
Subjective Progress Note Date: 04/28/22 Principal diagnosis: Left diabetic foot infection with osteomyelitis Patient is a 82-year-old female with a past medical history difficult for left diabetic foot infection requiring transmetatarsal amputation of the left foot and this patient wound was healing however developing a new wound on the medial aspect with the bone exposed concerning for osteomyelitis.Patient is status post excisional debridement of the left transmetatarsal wound with a deep wound cultures completed on 04/28/2022. On today's evaluation that is 04/28/2022 patient denies having any fever or any chills the patient is breathing comfortably on room air denies any chest pain or shortness of breath or cough no nausea no vomiting no abdominal pain or diarrhea Objective - Vital Signs Vital signs: Vital Signs Temp 98.1 F 04/28/22 11:24 Pulse 50 L 04/28/22 12:00 Resp 16 04/28/22 12:00 BP 127/66 04/28/22 12:00 Pulse Ox 100 04/28/22 12:00 FiO2 Intake & Output 04/27/22 04/28/22 04/28/22 18:59 06:59 18:59 Intake Total 49.039 59.481 600 Output Total 250 1200 2 Balance -200.961 -1140.519 598 Intake: IV 600 Intake, IV Titration 49.039 59.481 Amount Heparin Sod,Pork in 0.45% 49.039 59.481 NaCl 25,000 unit In 0.45 % NaCl 1 250ml.bag @ 12 UNITS/KG/HR 7.784 mls/hr IV .Q24H [facility] Rx#: [id number] Output: Urine 250 1200 Estimated Blood Loss 2 Other: Voiding Method External Catheter External Catheter External Catheter - Exam GENERAL DESCRIPTION: Elderly female lying in bed, no distress. No tachypnea or accessory muscle of respiration use. LUNGS: Unlabored breathing. Clear to auscultation anteriorly. No wheeze or crackle. HEART: S1, S2, regular rate and rhythm. No loud murmur ABDOMEN: Soft, no tenderness , guarding or rigidity, no organomegaly EXTREMITIES left foot is currently dressed no drainage on the dressing. - Labs CBC & Chem 7: 04/29/22 06:24 04/29/22 06:24 Labs: Abnormal Lab Results - Last 24 Hours (Table) 04/27/22 04/27/22 04/27/22 Range/Units 16:21 18:03 19:42 RBC (4.10-5.20) X 10*6/uL Hgb (12.0-15.0) g/dL Hct (37.2-46.3) % MCHC (32.0-37.0) g/dL Eosinophils # (0.04-0.35) X 10*3/uL PT (9.0-12.0) sec INR (<1.2) APTT 35.3 H (22.0-30.0) sec POC Glucose (mg/dL) 167 H 154 H (70-110) mg/dL Hemoglobin A1c (0.0-6.0) % 04/27/22 04/28/22 04/28/22 Range/Units 23:33 06:56 06:56 RBC 3.71 L (4.10-5.20) X 10*6/uL Hgb 10.4 L (12.0-15.0) g/dL Hct 33.4 L (37.2-46.3) % MCHC 31.1 L (32.0-37.0) g/dL Eosinophils # 0.40 H (0.04-0.35) X 10*3/uL PT (9.0-12.0) sec INR (<1.2) APTT 39.3 H (22.0-30.0) sec POC Glucose (mg/dL) (70-110) mg/dL Hemoglobin A1c 9.1 H (0.0-6.0) % 04/28/22 Range/Units 06:56 RBC (4.10-5.20) X 10*6/uL Hgb (12.0-15.0) g/dL Hct (37.2-46.3) % MCHC (32.0-37.0) g/dL Eosinophils # (0.04-0.35) X 10*3/uL PT 12.6 H (9.0-12.0) sec INR 1.2 H (<1.2) APTT 51.0 H (22.0-30.0) sec POC Glucose (mg/dL) (70-110) mg/dL Hemoglobin A1c (0.0-6.0) % Microbiology - Last 24 Hours (Table) 12/07/22 17:45 Blood Culture - Preliminary Blood No Growth after 24 hours 04/26/22 17:29 Blood Culture - Preliminary Blood No Growth after 24 hours Assessment and Plan (1) Diabetic infection of left foot Current Visit: Yes Status: Acute Code(s): E11.628 - TYPE 2 DIABETES MELLITUS WITH OTHER SKIN COMPLICATIONS; L08.9 - LOCAL INFECTION OF THE SKIN AND SUBCUTANEOUS TISSUE, UNSP SNOMED Code(s): 32057386 Plan: 1patient with left diabetic foot infection no concerning for osteomyelitis at the medial and of her transmetatarsal amputation site wound with bone exposed palpable to the finger noticed to have slight worsening on oral antibiotic with a cultures done at [facility] did grew VRE MSSA and drug-resistant Pseudomonas. 2pt has been evaluated by vascular surgery evaluation and s/p debridement of this wound and deep culture. 3 Patient is currently covered with daptomycin meropenem while waiting for the OR cultures to be finalized and monitor clinical course closely Time with Patient: Less than 30
--- NOTE | 2022-04-30 00:34 | P.PN ---
Subjective Progress Note Date: 04/29/22 Principal diagnosis: Left diabetic foot infection with osteomyelitis Patient is a 82-year-old female with a past medical history difficult for left diabetic foot infection requiring transmetatarsal amputation of the left foot and this patient wound was healing however developing a new wound on the medial aspect with the bone exposed concerning for osteomyelitis.Patient is status post excisional debridement of the left transmetatarsal wound with a deep wound cultures completed on 04/28/2022. On today's evaluation that is 04/29/2022 patient did spike a low-grade fever 100.2 last night, the patient is afebrile since then patient is breathing comfortably on room air patient denies having any chest pain or shortness of breath or cough no nausea no vomiting no abdominal pain or diarrhea Objective - Vital Signs Vital signs: Vital Signs Temp 97.7 F 04/29/22 13:51 Pulse 51 L 04/29/22 13:51 Resp 17 04/29/22 13:51 BP 126/68 04/29/22 13:51 Pulse Ox 100 04/29/22 13:51 FiO2 Intake & Output 04/28/22 04/29/22 04/29/22 18:59 06:59 18:59 Intake Total 1260 Output Total 402 2600 500 Balance 858 -2600 -500 Weight 64.864 kg Intake: IV 600 Intake, IV Titration 180 Amount Meropenem 1 gm In Sodium 100 Chloride 0.9% 100 ml @ 33 .3 mls/hr IVPB Q12H [facility] Rx#:[id number] Sodium Chloride 0.9% 1, 80 000 ml @ 75 mls/hr IV . [id number] [facility] Rx#:[id number] Oral 480 Output: Urine 400 2600 500 Estimated Blood Loss 2 Other: Voiding Method External Catheter External Catheter External Catheter - Exam GENERAL DESCRIPTION: Elderly female lying in bed, no distress. No tachypnea or accessory muscle of respiration use. LUNGS: Unlabored breathing. Clear to auscultation anteriorly. No wheeze or crackle. HEART: S1, S2, regular rate and rhythm. No loud murmur ABDOMEN: Soft, no tenderness , guarding or rigidity, no organomegaly EXTREMITIES left foot is currently dressed no drainage on the dressing. - Labs CBC & Chem 7: 04/29/22 06:24 04/29/22 06:24 Labs: Abnormal Lab Results - Last 24 Hours (Table) 04/28/22 04/29/22 04/29/22 Range/Units 20:06 06:24 06:24 RBC 3.59 L (4.10-5.20) X 10*6/uL Hgb 10.1 L (12.0-15.0) g/dL Hct 32.3 L (37.2-46.3) % MCHC 31.3 L (32.0-37.0) g/dL Immature Gran # 0.05 H (0.00-0.04) X 10*3/uL Monocytes # 1.18 H (0.20-1.00) X 10*3/uL Eosinophils # 0.46 H (0.04-0.35) X 10*3/uL Sodium 134 L (135-145) mmol/L Creatinine 1.7 H (0.6-1.5) mg/dL Est GFR (CKD-EPI)AfAm 32.2 L (60.0-200.0) Est GFR (CKD-EPI)NonAf 27.8 L (60.0-200.0) Glucose 59 L (70-110) mg/dL POC Glucose (mg/dL) 248 H (70-110) mg/dL Calcium 8.5 L (8.7-10.3) mg/dL 04/29/22 04/29/22 Range/Units 11:26 16:31 RBC (4.10-5.20) X 10*6/uL Hgb (12.0-15.0) g/dL Hct (37.2-46.3) % MCHC (32.0-37.0) g/dL Immature Gran # (0.00-0.04) X 10*3/uL Monocytes # (0.20-1.00) X 10*3/uL Eosinophils # (0.04-0.35) X 10*3/uL Sodium (135-145) mmol/L Creatinine (0.6-1.5) mg/dL Est GFR (CKD-EPI)AfAm (60.0-200.0) Est GFR (CKD-EPI)NonAf (60.0-200.0) Glucose (70-110) mg/dL POC Glucose (mg/dL) 177 H 123 H (70-110) mg/dL Calcium (8.7-10.3) mg/dL Microbiology - Last 24 Hours (Table) 04/28/22 11:15 Gram Stain - Preliminary Foot - Left Wound Culture - Preliminary 04/28/22 11:15 Gram Stain - Preliminary Foot - Left Wound Culture - Preliminary 04/26/22 17:45 Blood Culture - Preliminary Blood No Growth after 48 hours 04/26/22 17:29 Blood Culture - Preliminary Blood No Growth after 48 hours 04/28/22 11:15 Anaerobic Culture - Preliminary Foot - Left 04/28/22 11:15 Anaerobic Culture - Preliminary Foot - Left Assessment and Plan (1) Diabetic infection of left foot Current Visit: Yes Status: Acute Code(s): E11.628 - TYPE 2 DIABETES MELLITUS WITH OTHER SKIN COMPLICATIONS; L08.9 - LOCAL INFECTION OF THE SKIN AND SUBCUTANEOUS TISSUE, UNSP SNOMED Code(s): 43911313 Plan: 1patient with left diabetic foot infection no concerning for osteomyelitis at the medial and of her transmetatarsal amputation site wound with bone exposed palpable to the finger noticed to have slight worsening on oral antibiotic with a cultures done at [facility] did grew VRE MSSA and drug-resistant Pseudomonas. 2pt has been evaluated by vascular surgery evaluation and s/p debridement of this wound and deep culture. 3 Patient seem to have shown some clinical improvement with the culture still pending we will continue the patient on daptomycin meropenem with the discharge antibiotic on the basis of final culture Time with Patient: Less than 30
[2022-04-30 06:23] LABS: Glucose,Whole Blood 154 mg/dL (70-110)
[2022-04-30] MEDS: INSULIN ASPART (NovoLOG) 100 UNIT/ML VIAL SQ SCH ×4 (06:43→21:12)
[2022-04-30] MEDS: SYMBICORT 160-4.5 MCG INHALER INHALATION SCH ×2 (08:53→20:51)
[2022-04-30] MEDS: hydrALAZINE HCL 25 MG TAB PO SCH ×2 (09:07→21:12)
[2022-04-30] MEDS: TAMSULOSIN 0.4 MG CAP.ER.24H PO SCH (09:07)
[2022-04-30] MEDS: amLODIPine 5 MG TAB PO SCH (09:07)
[2022-04-30] MEDS: FOLIC ACID 1 MG TAB PO SCH (09:07)
[2022-04-30] MEDS: FUROSEMIDE 20 MG TAB PO SCH (09:07)
[2022-04-30] MEDS: RIVAROXABAN 15 MG TAB PO SCH (09:07)
[2022-04-30] MEDS: CYANOCOBALAMIN 500 MCG TAB PO SCH (09:07)
[2022-04-30] MEDS: SODIUM CHLORIDE 0.9% 1,000 ML IV SCH (10:42)
[2022-04-30] MEDS: MEROPENEM 1 GM in SODIUM CHLORIDE 0.9% 100 ML IVPB SCH ×2 (10:44→23:43)
--- NOTE | 2022-04-30 10:53 | P.PN ---
Subjective Patient is seen in follow-up for chronic kidney disease. Renal function is at baseline. Oral intake fair. Hemodynamically stable. No active complaints. Vital signs are stable. General: Awake. No acute distress. HEENT: Head exam is unremarkable. LUNGS: Breath sounds decreased. HEART: Rate and Rhythm are regular. ABDOMEN: Soft, no distention. EXTREMITITES: No edema. No drainage noted. Objective - Vital Signs Vital signs: Vital Signs Temp 98.1 F 04/30/22 08:00 Pulse 48 L 04/30/22 08:00 Resp 16 04/30/22 08:00 BP 149/68 04/30/22 08:00 Pulse Ox 96 04/30/22 08:00 FiO2 Intake & Output 04/29/22 04/30/22 04/30/22 18:59 06:59 18:59 Output Total 1000 1600 Balance -1000 -1600 Weight 64.864 kg Output: Urine 1000 1600 Other: Voiding Method External Catheter External Catheter External Catheter # Voids 2 - Labs CBC & Chem 7: 04/29/22 06:24 04/29/22 06:24 Labs: Abnormal Lab Results - Last 24 Hours (Table) 04/29/22 04/29/22 04/29/22 Range/Units 06:24 11:26 16:31 Sodium 134 L (135-145) mmol/L Creatinine 1.7 H (0.6-1.5) mg/dL Est GFR (CKD-EPI)AfAm 32.2 L (60.0-200.0) Est GFR (CKD-EPI)NonAf 27.8 L (60.0-200.0) Glucose 59 L (70-110) mg/dL POC Glucose (mg/dL) 177 H 123 H (70-110) mg/dL Calcium 8.5 L (8.7-10.3) mg/dL 04/29/22 04/30/22 Range/Units 21:13 06:22 Sodium (135-145) mmol/L Creatinine (0.6-1.5) mg/dL Est GFR (CKD-EPI)AfAm (60.0-200.0) Est GFR (CKD-EPI)NonAf (60.0-200.0) Glucose (70-110) mg/dL POC Glucose (mg/dL) 229 H 154 H (70-110) mg/dL Calcium (8.7-10.3) mg/dL Microbiology - Last 24 Hours (Table) 04/26/22 17:45 Blood Culture - Preliminary Blood No Growth after 72 hours 04/26/22 17:29 Blood Culture - Preliminary Blood No Growth after 72 hours 04/28/22 11:15 Gram Stain - Preliminary Foot - Left Wound Culture - Preliminary 04/28/22 11:15 Gram Stain - Preliminary Foot - Left Wound Culture - Preliminary Assessment and Plan Plan: Assessment: 1. 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 GFR at baseline. 2. Left foot wound on antibiotics. Being followed by vascular surgery and infectious disease. Status post excisional debridement on 04/28/2022. 3. Diabetes mellitus. Plan: Maintain oral Lasix. Avoid nephrotoxins. Encourage oral intake. Continue to monitor renal function and urine output. Repeat labs in the morning.
[2022-04-30 10:57] LABS: Basophils # (A) 0.02 X 10*3/uL (0.00-0.10); Basophils % (A) 0.3 %; Eosinophils # (A) 0.46 X 10*3/uL (0.04-0.35); Eosinophils % (A) 6.2 %; HCT 33.8 % (37.2-46.3); HGB 10.6 g/dL (12.0-15.0); Immature Grans, Automated 0.8 %; Lymphocytes # (A) 1.35 X 10*3/uL (0.90-5.00); Lymphocytes % (A) 18.3 %; MCH 28.3 pg (27.0-32.0); MCHC 31.4 g/dL (32.0-37.0); MCV 90.1 fL (80.0-97.0); Monocytes % (A) 9.5 %; NRBC Per 100 WBC 0 /100 WBCS (0.0-0.0); Neutrophils # (A) 4.79 X 10*3/uL (1.80-7.70); Neutrophils % (A) 64.9 %; Platelet Count 280 X 10*3/uL (140-440); RBC 3.75 X 10*6/uL (4.10-5.20); WBC 7.38 X 10*3/uL (4.50-10.00)
[2022-04-30 11:34] LABS: Glucose,Whole Blood 197 mg/dL (70-110)
--- NOTE | 2022-04-30 16:34 | P.PN ---
Subjective Progress Note Date: 04/30/22 Principal diagnosis: Left diabetic foot infection with osteomyelitis Patient is a 82-year-old female with a past medical history difficult for left diabetic foot infection requiring transmetatarsal amputation of the left foot and this patient wound was healing however developing a new wound on the medial aspect with the bone exposed concerning for osteomyelitis.Patient is status post excisional debridement of the left transmetatarsal wound with a deep wound cultures completed on 04/28/2022. On today's evaluation that is 04/30/2022 patient remains to be afebrile, the patient is breathing comfortably on room air patient denies having any chest pain or shortness of breath or cough no nausea no vomiting no abdominal pain or diarrhea Objective - Vital Signs Vital signs: Vital Signs Temp 98.1 F 04/30/22 08:00 Pulse 48 L 04/30/22 08:00 Resp 16 04/30/22 08:00 BP 149/68 04/30/22 08:00 Pulse Ox 96 04/30/22 08:00 FiO2 Intake & Output 04/29/22 04/30/22 04/30/22 18:59 06:59 18:59 Output Total 1000 1600 Balance -1000 -1600 Weight 64.864 kg Output: Urine 1000 1600 Other: Voiding Method External Catheter External Catheter External Catheter # Voids 2 - Exam GENERAL DESCRIPTION: Elderly female lying in bed, no distress. No tachypnea or accessory muscle of respiration use. LUNGS: Unlabored breathing. Clear to auscultation anteriorly. No wheeze or crackle. HEART: S1, S2, regular rate and rhythm. No loud murmur ABDOMEN: Soft, no tenderness , guarding or rigidity, no organomegaly EXTREMITIES left foot is currently dressed minimal drainage on the dressing. - Labs CBC & Chem 7: 04/30/22 07:28 04/29/22 06:24 Labs: Abnormal Lab Results - Last 24 Hours (Table) 04/29/22 04/29/22 04/30/22 Range/Units 16:31 21:13 06:22 RBC (4.10-5.20) X 10*6/uL Hgb (12.0-15.0) g/dL Hct (37.2-46.3) % MCHC (32.0-37.0) g/dL Immature Gran # (0.00-0.04) X 10*3/uL Eosinophils # (0.04-0.35) X 10*3/uL POC Glucose (mg/dL) 123 H 229 H 154 H (70-110) mg/dL 04/30/22 04/30/22 Range/Units 07:28 11:32 RBC 3.75 L (4.10-5.20) X 10*6/uL Hgb 10.6 L (12.0-15.0) g/dL Hct 33.8 L (37.2-46.3) % MCHC 31.4 L (32.0-37.0) g/dL Immature Gran # 0.06 H (0.00-0.04) X 10*3/uL Eosinophils # 0.46 H (0.04-0.35) X 10*3/uL POC Glucose (mg/dL) 197 H (70-110) mg/dL Microbiology - Last 24 Hours (Table) 04/28/22 11:15 Gram Stain - Final Foot - Left Wound Culture - Final 04/28/22 11:15 Gram Stain - Preliminary Foot - Left Wound Culture - Preliminary Group D Enterococcus 04/26/22 17:45 Blood Culture - Preliminary Blood No Growth after 72 hours 04/26/22 17:29 Blood Culture - Preliminary Blood No Growth after 72 hours Assessment and Plan (1) Diabetic infection of left foot Current Visit: Yes Status: Acute Code(s): E11.628 - TYPE 2 DIABETES MELLITUS WITH OTHER SKIN COMPLICATIONS; L08.9 - LOCAL INFECTION OF THE SKIN AND SUBCUTANEOUS TISSUE, UNSP SNOMED Code(s): 05131582 Plan: 1patient with left diabetic foot infection no concerning for osteomyelitis at the medial and of her transmetatarsal amputation site wound with bone exposed palpable to the finger noticed to have slight worsening on oral antibiotic with a cultures done at [facility] did grew VRE MSSA and drug-resistant Pseudomonas. 2pt has been evaluated by vascular surgery evaluation and s/p debridement of this wound and deep culture. 3 Patient has shown clinical improvement , the patient left foot culture growing enterococcus with sensitivities pending we will continue the patient on daptomycin meropenem with the discharge antibiotic on the basis of final culture Daughter at the bedside questions were answered Time with Patient: Less than 30
[2022-04-30 16:58] LABS: Glucose,Whole Blood 223 mg/dL (70-110)
--- NOTE | 2022-04-30 18:51 | P.PN ---
Subjective Progress Note Date: 04/30/22 Principal diagnosis: Acute worsening diabetic left foot infection/possible osteomyelitis 82 years old female with past medical history of diabetes mellitus, hypertension, atrial fibrillation, chronic nonhealing left foot diabetic ulcer Patient presents because of worsening infection of her left foot. Patient SEEN by her cannery tender engineer who referred her to the hospital if she develops worsening of her left foot infection, patient states over the last 3 days scissors more discharge from the left foot stump. Patient has history of left foot forefoot amputation, currently she has no ptosis left on her left foot. There is black eschar on the bedside of the big toe and there is some discharge. No significant surrounding redness but there is tenderness and his hard to confirm cellulitis because of the scar tissue Patient denies any other complaints, no headache dizziness weakness numbness, no dyspnea and dyspnea, no GI or urinary symptoms. Denies fever. Denies smoking alcohol or illicit drugs Vitals are stable and patient is afebrile. Labs reviewed, CBC is unremarkable Sodium slightly low 132, creatinine is elevated 1.9, which is at baseline 1.6- 2.0. Foot x-ray showing soft tissue areas that could be related to cellulitis and gangrene Different enzymes are not elevated As per records patient had positive wound culture done at [facility] showing VRE MSSA and resistant Pseudomonas 04/29/2022 82 year old female with history of left transmetatarsal amputation with incisional dehiscence and chronic wound that has been treated at the wound care and is currently admitted on antibiotics. When evaluated there was exposed bone and purulent drainage expressed and therefore need for debridement and deep cultures. Patient is status post excisional debridement of left transmetatarsal wound with deep for cultures - Remains on IV antibiotics final recommendations pending the tissue cultures 04/30/2022 patient is seen and evaluated in room at bedside; daughter is present in the room and is concerned about patient's shoe size; family reports ID recommended shoes further and is requesting evaluation -- remains to be afebrile, the patient is breathing comfortably on room air patient denies having any chest pain or shortness of breath or cough no nausea no vomiting no abdominal pain or diarrhea patient with left diabetic foot infection no concerning for osteomyelitis at the medial and of her transmetatarsal amputation site wound with bone exposed palpable to the finger noticed to have slight worsening on oral antibiotic with a cultures done at [facility] did grew VRE MSSA and drug-resistant Pseudomonas. pt has been evaluated by vascular surgery evaluation and s/p debridement of this wound and deep culture. Patient has shown clinical improvement , the patient left foot culture growing enterococcus with sensitivities pending we will continue the patient on daptomycin meropenem with the discharge antibiotic on the basis of final culture Objective - Vital Signs Vital signs: Vital Signs Temp 98.1 F 04/30/22 14:00 Pulse 67 04/30/22 14:00 Resp 17 04/30/22 14:00 BP 118/44 04/30/22 14:00 Pulse Ox 98 04/30/22 14:00 FiO2 Intake & Output 04/29/22 04/30/22 04/30/22 18:59 06:59 18:59 Output Total 1000 1600 500 Balance -1000 -1600 -500 Weight 64.864 kg Output: Urine 1000 1600 500 Other: Voiding Method External Catheter External Catheter External Catheter # Voids 2 - Exam GENERAL: The patient is alert and oriented x3, not in any acute distress. Well developed, well nourished. HEENT: Pupils are round and equally reacting to light. EOMI. No scleral icterus. No conjunctival pallor. Normocephalic, atraumatic. No pharyngeal erythema. No thyromegaly. CARDIOVASCULAR: S1 and S2 present. No murmurs, rubs, or gallops. PULMONARY: Chest is clear to auscultation, no wheezing or crackles. ABDOMEN: Soft, nontender, nondistended, normoactive bowel sounds. No palpable organomegaly. MUSCULOSKELETAL: No joint swelling or deformity. -EXTREMITIES: No cyanosis, clubbing, or pedal edema. 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 SKIN: No rashes. no petechiae. - Labs CBC & Chem 7: 04/30/22 07:28 04/29/22 06:24 Labs: Abnormal Lab Results - Last 24 Hours (Table) 04/29/22 04/29/22 04/30/22 Range/Units 16:31 21:13 06:22 RBC (4.10-5.20) X 10*6/uL Hgb (12.0-15.0) g/dL Hct (37.2-46.3) % MCHC (32.0-37.0) g/dL Immature Gran # (0.00-0.04) X 10*3/uL Eosinophils # (0.04-0.35) X 10*3/uL POC Glucose (mg/dL) 123 H 229 H 154 H (70-110) mg/dL 04/30/22 04/30/22 Range/Units 07:28 11:32 RBC 3.75 L (4.10-5.20) X 10*6/uL Hgb 10.6 L (12.0-15.0) g/dL Hct 33.8 L (37.2-46.3) % MCHC 31.4 L (32.0-37.0) g/dL Immature Gran # 0.06 H (0.00-0.04) X 10*3/uL Eosinophils # 0.46 H (0.04-0.35) X 10*3/uL POC Glucose (mg/dL) 197 H (70-110) mg/dL Microbiology - Last 24 Hours (Table) 04/28/22 11:15 Gram Stain - Final Foot - Left Wound Culture - Final 04/28/22 11:15 Gram Stain - Preliminary Foot - Left Wound Culture - Preliminary Group D Enterococcus 04/26/22 17:45 Blood Culture - Preliminary Blood No Growth after 72 hours 04/26/22 17:29 Blood Culture - Preliminary Blood No Growth after 72 hours Assessment and Plan Assessment: Acute worsening diabetic left foot infection with concerns for osteomyelitis, 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, 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 Diabetes mellitus, With hyperglycemia, POA Hypertension Atrial fibrillation chronic nonhealing left foot diabetic ulcer Plan: Follow-up CRP and ESR Check hemoglobin A1c Continue with antibiotics per ID team, currently on daptomycin and meropenem Infectious disease consult Vascular surgery consult Patient was counseled extensively about the need to control her sugar and the need to follow up with maintenance team member as she has stage IV kidney disease and she a grees Patient also stage IV chronic kidney disease, she will need to be established care with maintenance team member, because of this we are going to consult nephrology service while inpatient Labs and medication were reviewed.. Continue same treatment. Continue with symptomatic treatment. Resume home medication. Monitor labs and vitals. DVT and GI prophylaxis. Further recommendations as per clinical course of the patient DVT prophylaxis: Subcutaneous heparin GI Prophylaxis: Pepcid PT/OT: Pending Prognosis is guarded
[2022-04-30 20:46] LABS: Glucose,Whole Blood 209 mg/dL (70-110)
[2022-04-30] MEDS: INSULIN DETEMIR (LEVEMIR) 100 UNIT/ML SYR SQ SCH (21:12)
[2022-04-30] MEDS: ATORVASTATIN 10 MG TAB PO SCH (21:12)
[2022-05-01 06:20] LABS: Glucose,Whole Blood 89 mg/dL (70-110)
[2022-05-01] MEDS: INSULIN ASPART (NovoLOG) 100 UNIT/ML VIAL SQ SCH ×4 (06:43→22:10)
[2022-05-01] MEDS: SYMBICORT 160-4.5 MCG INHALER INHALATION SCH ×2 (07:17→21:13)
[2022-05-01 08:56] LABS: Magnesium 2.2 mg/dL (1.5-2.4)
[2022-05-01 08:58] LABS: African American GFR (CKD) 28.2 (60.0-200.0); Anion Gap 13.8 mmol/L (10.00-18.00); BUN/Creat Ratio 22.21 Ratio (12.00-20.00); Blood Urea Nitrogen 42.2 mg/dL (9.0-27.0); Calcium 8.9 mg/dL (8.7-10.3); Carbon Dioxide 22.2 mmol/L (20.0-27.5); Non-African American GFR(CKD) 24.3 (60.0-200.0); Potassium 4.1 mmol/L (3.5-5.5)
[2022-05-01] MEDS: CYANOCOBALAMIN 500 MCG TAB PO SCH (09:08)
[2022-05-01] MEDS: FOLIC ACID 1 MG TAB PO SCH (09:08)
[2022-05-01] MEDS: FUROSEMIDE 20 MG TAB PO SCH (09:08)
[2022-05-01] MEDS: TAMSULOSIN 0.4 MG CAP.ER.24H PO SCH (09:08)
[2022-05-01] MEDS: amLODIPine 5 MG TAB PO SCH (09:08)
[2022-05-01] MEDS: RIVAROXABAN 15 MG TAB PO SCH (09:08)
[2022-05-01] MEDS: hydrALAZINE HCL 25 MG TAB PO SCH ×2 (09:08→22:10)
[2022-05-01 09:18] LABS: Basophils # (A) 0.03 X 10*3/uL (0.00-0.10); Basophils % (A) 0.4 %; Eosinophils # (A) 0.58 X 10*3/uL (0.04-0.35); Eosinophils % (A) 7.7 %; HCT 32.6 % (37.2-46.3); HGB 10.4 g/dL (12.0-15.0); Immature Grans, Automated 0.5 %; Lymphocytes # (A) 1.64 X 10*3/uL (0.90-5.00); Lymphocytes % (A) 21.9 %; MCH 28.7 pg (27.0-32.0); MCHC 31.9 g/dL (32.0-37.0); MCV 89.8 fL (80.0-97.0); Mean Platelet Volume 10.4 fL (9.5-12.2); Monocytes % (A) 10.7 %; NRBC Per 100 WBC 0 /100 WBCS (0.0-0.0); Neutrophils % (A) 58.8 %; Platelet Count 272 X 10*3/uL (140-440); RBC 3.63 X 10*6/uL (4.10-5.20); RDW 14.1 % (11.5-14.5); WBC 7.49 X 10*3/uL (4.50-10.00)
[2022-05-01] MEDS: MEROPENEM 1 GM in SODIUM CHLORIDE 0.9% 100 ML IVPB SCH ×2 (11:03→23:04)
[2022-05-01 11:39] LABS: Glucose,Whole Blood 180 mg/dL (70-110)
--- NOTE | 2022-05-01 11:59 | P.PN ---
Subjective Patient is seen in follow-up for chronic kidney disease. Renal function is at baseline. Oral intake fair. Hemodynamically stable. No active complaints. Oral intake is good. Family present at bedside. Vital signs are stable. General: Awake. No acute distress. HEENT: Head exam is unremarkable. LUNGS: Breath sounds decreased. HEART: Rate and Rhythm are regular. ABDOMEN: Soft, no distention. EXTREMITITES: No edema. No drainage noted. Objective - Vital Signs Vital signs: Vital Signs Temp 98.0 F 05/01/22 08:01 Pulse 60 05/01/22 08:01 Resp 18 05/01/22 08:01 BP 126/77 05/01/22 08:01 Pulse Ox 99 05/01/22 08:01 FiO2 Intake & Output 04/30/22 05/01/22 05/01/22 18:59 06:59 18:59 Output Total 725 900 Balance -725 -900 Output: Urine 725 900 Other: Voiding Method External Catheter External Catheter External Catheter - Labs CBC & Chem 7: 05/01/22 03:58 05/01/22 03:58 Labs: Abnormal Lab Results - Last 24 Hours (Table) 04/30/22 04/30/22 05/01/22 Range/Units 16:57 20:45 03:58 RBC (4.10-5.20) X 10*6/uL Hgb (12.0-15.0) g/dL Hct (37.2-46.3) % MCHC (32.0-37.0) g/dL Eosinophils # (0.04-0.35) X 10*3/uL Sodium 134 L (135-145) mmol/L BUN 42.2 H (9.0-27.0) mg/dL Creatinine 1.9 H (0.6-1.5) mg/dL Est GFR (CKD-EPI)AfAm 28.2 L (60.0-200.0) Est GFR (CKD-EPI)NonAf 24.3 L (60.0-200.0) BUN/Creatinine Ratio 22.21 H (12.00-20.00) Ratio POC Glucose (mg/dL) 223 H 209 H (70-110) mg/dL 05/01/22 05/01/22 Range/Units 03:58 11:37 RBC 3.63 L (4.10-5.20) X 10*6/uL Hgb 10.4 L (12.0-15.0) g/dL Hct 32.6 L (37.2-46.3) % MCHC 31.9 L (32.0-37.0) g/dL Eosinophils # 0.58 H (0.04-0.35) X 10*3/uL Sodium (135-145) mmol/L BUN (9.0-27.0) mg/dL Creatinine (0.6-1.5) mg/dL Est GFR (CKD-EPI)AfAm (60.0-200.0) Est GFR (CKD-EPI)NonAf (60.0-200.0) BUN/Creatinine Ratio (12.00-20.00) Ratio POC Glucose (mg/dL) 180 H (70-110) mg/dL Microbiology - Last 24 Hours (Table) 04/28/22 11:15 Anaerobic Culture - Final Foot - Left Anaerobic Gm Negative Bacilli 04/28/22 11:15 Anaerobic Culture - Final Foot - Left Anaerobic Gm Negative Bacilli 04/26/22 17:45 Blood Culture - Preliminary Blood No Growth after 96 hours 04/26/22 17:29 Blood Culture - Preliminary Blood No Growth after 96 hours 04/28/22 11:15 Gram Stain - Final Foot - Left Wound Culture - Final 04/28/22 11:15 Gram Stain - Preliminary Foot - Left Wound Culture - Preliminary Group D Enterococcus Assessment and Plan Plan: Assessment: 1. 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 GFR at baseline. 2. Left foot wound on antibiotics. Being followed by vascular surgery and infectious disease. Status post excisional debridement on 04/28/2022. 3. Diabetes mellitus. Plan: Maintain oral Lasix. Avoid nephrotoxins. Encourage oral intake. Continue to monitor renal function and urine output. Follow-up outpatient 2 weeks post discharge.
--- NOTE | 2022-05-01 12:00 | P.PN ---
Subjective Progress Note Date: 05/01/22 Principal diagnosis: Left TMA infected wound Patient was seen and examined today as a follow-up for sharp excisional debridement of the left medial aspect of the TMA on 04/28/2022. She denies any pain, she denies any fevers or chills. His been afebrile. Wound cultures are coming back and aerobic as gram-negative bacilli and Gram stain wound culture group D enterococcus. Patient is currently on meropenem and daptomycin. Infectious disease is following closely. Objective - Vital Signs Vital signs: Vital Signs Temp 98.0 F 05/01/22 08:01 Pulse 60 05/01/22 08:01 Resp 18 05/01/22 08:01 BP 126/77 05/01/22 08:01 Pulse Ox 99 05/01/22 08:01 FiO2 Intake & Output 04/30/22 05/01/22 05/01/22 18:59 06:59 18:59 Output Total 725 900 Balance -725 -900 Output: Urine 725 900 Other: Voiding Method External Catheter External Catheter - Exam General appearance: The patient is alert, oriented, appears in no acute dist ress. HET: Head is normocephalic and atraumatic. Pupils are equal and reactive. Neck: Supple without lymphadenopathy. Trachea midline. Heart: Regular. Lungs: Equal expansion, normal respiratory effort. Abdomen: Soft, nontender, nondistended. Extremities: Left lower extremity TMA site lateral aspect with Optisol wound dressing, medial aspect debridement site without any foul odor, no drainage, packed with iodoform. Neurological: No focal deficits. Alert and oriented 3. - Labs CBC & Chem 7: 05/01/22 03:58 05/01/22 03:58 Labs: Abnormal Lab Results - Last 24 Hours (Table) 04/30/22 04/30/22 04/30/22 Range/Units 07:28 11:32 16:57 RBC 3.75 L (4.10-5.20) X 10*6/uL Hgb 10.6 L (12.0-15.0) g/dL Hct 33.8 L (37.2-46.3) % MCHC 31.4 L (32.0-37.0) g/dL Immature Gran # 0.06 H (0.00-0.04) X 10*3/uL Eosinophils # 0.46 H (0.04-0.35) X 10*3/uL POC Glucose (mg/dL) 197 H 223 H (70-110) mg/dL 04/30/22 Range/Units 20:45 RBC (4.10-5.20) X 10*6/uL Hgb (12.0-15.0) g/dL Hct (37.2-46.3) % MCHC (32.0-37.0) g/dL Immature Gran # (0.00-0.04) X 10*3/uL Eosinophils # (0.04-0.35) X 10*3/uL POC Glucose (mg/dL) 209 H (70-110) mg/dL Microbiology - Last 24 Hours (Table) 04/26/22 17:45 Blood Culture - Preliminary Blood No Growth after 96 hours 04/26/22 17:29 Blood Culture - Preliminary Blood No Growth after 96 hours 04/28/22 11:15 Gram Stain - Final Foot - Left Wound Culture - Final 04/28/22 11:15 Gram Stain - Preliminary Foot - Left Wound Culture - Preliminary Group D Enterococcus Assessment and Plan Assessment: 1. Left diabetic infected foot wound with deep space abscess status post excisional debridement 2. Prior history of gangrene toes status post transmetatarsal amputation done in August 2021 3. Previous surgical debridement of left TMA site done in September 2021 4. Atrial fibrillation on heparin drip 5. Diabetes mellitus 6. Chronic kidney disease Plan: Continue daily dressing change to debridement site with iodoform packing. Other wounds per recommendation from infectious disease. Continue with IV antibiotics per recommendations from infectious disease. Patient will follow-up with Dr. Campos in the outpatient setting. Vascular surgery will sign off at this time.
[2022-05-01] MEDS ORDERED: LIDOCAINE 1% INJ 10MG/ML (5 ML VIAL-PF) SQ ONE (14:07)
--- NOTE | 2022-05-01 14:31 | IR ---
PICC LINE PLACEMENT: HISTORY: Infection requiring long-term antibiotic therapy PROCEDURE: Ultrasound and fluoroscopic guidance of PICC line placement. COMPLICATIONS: None ANESTHESIA: 1. 1% Lidocaine locally. FINDINGS/TECHNIQUE: The procedure was explained to the patient. The risks, complications, benefits and alternatives were discussed and any questions were answered. Informed consent was obtained. The patient was placed supine on the fluoroscopic table and prepped and draped in the usual sterile fash ion. Utilizing a 21 gauge needle and sonographic and fluoroscopic guidance, access in the right bas ilic vein was achieved and there is placement of a 0.018 guidewire. The vein is patent. A 4-F sheat h was placed over the guidewire. The guidewire and dilator were removed and a 4-F. PICC line was frances ash through the sheath with the tip at the level of the SVC. The sheath was removed, the catheter wa s flushed and sutured into position. The patient was stable throughout the procedure and remained st able upon discharge from the Department of Radiology. The vein puncture was patent under ultrasound. A foster scale image was obtained to document patency of the vein punctured. All elements of the maximal barrier technique were utilized. FLUOROSCOPY TIME: 0.5 minutes and 1 images submitted IMPRESSION: Successful PICC line placement under ultrasound and fluoroscopic guidance.
--- NOTE | 2022-05-01 14:53 | CDI ---
Documentation Clarification Form Date: 05/01/2022 02:19:00 PM From: Annalisa Barron RN, CCDS Admit Date: 04/26/2022 07:57:00 PM Patient Name: Marylu Chavez Visit Number: [id number] Discharge Date: ATTENTION: The Clinical Documentation Specialists (CDI) and [facility] Coding Staff appreciate your assistance in clarifying documentation. Please respond to the clarification below the line at the bottom and electronically sign. The CDI & [facility] Coding staff will review the response and follow-up if needed. Please note: Queries are made part of the Legal Health Record. If you have any questions, please contact the author of this message via ITS. Dr. Jamila Campos Osteomyelitis is documented in the consult on 04/26/22 and subsequent progress notes. Additional clarification regarding the cause and acuity of the osteomyelitis is requested. History/Risk Factors: Diabetes Mellitus, Left transmetatarsal amputation, Atrial Fibrillation, Hypertension, CHF Clinical Indicators: 82-year-old female present with left diabetic foot infection. She has slough tissue with the bone exposed and foul-smelling. Left diabetic foot infection now concerning for osteomyelitis at the medial and of her transmetatarsal amputation site wound with bone exposed. 04/26 Left Foot XR: Soft tissue air that could relate to cellulitis and gangrene. No focal bone destruction. 04/26 Lab: WBC 9.6, BUN 41, and CR 1.92 Treatment: 04/28 Excisional debridement of left transmetatarsal wound Daily dressing change to debridement site with iodoform packing Daptomycin 400MG IVPB Q 48 HRS 04/28-04/30 Meropenem 1 GM IVPB Q 12 HRS 04/26-05/01 Please clarify the acuity of the osteomyelitis, if known: Acuity: [ x] Acute osteomyelitis [ ] Chronic osteomyelitis [ ] Subacute osteomyelitis [ ] Unable to Determine (Template Last Revised: July 2020) MTDD
[2022-05-01 16:53] LABS: Glucose,Whole Blood 150 mg/dL (70-110)
[2022-05-01 18:30] VITALS: RESP 16
[2022-05-01 20:45] LABS: Glucose,Whole Blood 314 mg/dL (70-110)
[2022-05-01] MEDS: ATORVASTATIN 10 MG TAB PO SCH (22:10)
--- NOTE | 2022-05-01 22:10 | P.PN ---
Subjective Progress Note Date: 05/01/22 Principal diagnosis: Acute worsening diabetic left foot infection/possible osteomyelitis 82 years old female with past medical history of diabetes mellitus, hypertension, atrial fibrillation, chronic nonhealing left foot diabetic ulcer Patient presents because of worsening infection of her left foot. Patient SEEN by her endocrinology nurse who referred her to the hospital if she develops worsening of her left foot infection, patient states over the last 3 days scissors more discharge from the left foot stump. Patient has history of left foot forefoot amputation, currently she has no ptosis left on her left foot. There is black eschar on the bedside of the big toe and there is some discharge. No significant surrounding redness but there is tenderness and his hard to confirm cellulitis because of the scar tissue Patient denies any other complaints, no headache dizziness weakness numbness, no dyspnea and dyspnea, no GI or urinary symptoms. Denies fever. Denies smoking alcohol or illicit drugs Vitals are stable and patient is afebrile. Labs reviewed, CBC is unremarkable Sodium slightly low 132, creatinine is elevated 1.9, which is at baseline 1.6- 2.0. Foot x-ray showing soft tissue areas that could be related to cellulitis and gangrene Different enzymes are not elevated As per records patient had positive wound culture done at [facility] showing VRE MSSA and resistant Pseudomonas 04/29/2022 82 year old female with history of left transmetatarsal amputation with incisional dehiscence and chronic wound that has been treated at the wound care and is currently admitted on antibiotics. When evaluated there was exposed bone and purulent drainage expressed and therefore need for debridement and deep cultures. Patient is status post excisional debridement of left transmetatarsal wound with deep for cultures - Remains on IV antibiotics final recommendations pending the tissue cultures 04/30/2022 patient is seen and evaluated in room at bedside; daughter is present in the room and is concerned about patient's shoe size; family reports ID recommended shoes further and is requesting evaluation -- remains to be afebrile, the patient is breathing comfortably on room air patient denies having any chest pain or shortness of breath or cough no nausea no vomiting no abdominal pain or diarrhea patient with left diabetic foot infection no concerning for osteomyelitis at the medial and of her transmetatarsal amputation site wound with bone exposed palpable to the finger noticed to have slight worsening on oral antibiotic with a cultures done at [facility] did grew VRE MSSA and drug-resistant Pseudomonas. pt has been evaluated by vascular surgery evaluation and s/p debridement of this wound and deep culture. Patient has shown clinical improvement , the patient left foot culture growing enterococcus with sensitivities pending we will continue the patient on daptomycin meropenem with the discharge antibiotic on the basis of final culture 05/01/2022 Patient evaluated today on medical floor. Pending PICC line placement for discharge. Deep tissue culture showing VRE. Patient received PICC line this afternoon and plan for D/C home with family tomorrow morning. No acute events overnight. Reports no pain to left foot currently. Sodium 134, creatinine 1.9 today. Blood pressure 113/53, afebrile, heart rate 54, 100% room air. Review of Systems Constitutional: Denied any fatigue denied any fever. Cardio vascular: denied any chest pain, palpitations Gastrointestinal: denied any nausea, vomiting, diarrhea Pulmonary: Denied any shortness of breath cough Neurologic denied any new focal deficits All inpatient medications were reviewed and appropriate changes in these medications as dictated in the interval history and assessment and plan. PHYSICAL EXAMINATION: GENERAL: The patient is alert and oriented x3, not in any acute distress. Well developed, well nourished. HEENT: Pupils are round and equally reacting to light. EOMI. No scleral icterus. No conjunctival pallor. Normocephalic, atraumatic. No pharyngeal erythema. No thyromegaly. CARDIOVASCULAR: S1 and S2 present. No murmurs, rubs, or gallops. PULMONARY: Chest is clear to auscultation, no wheezing or crackles. ABDOMEN: Soft, nontender, nondistended, normoactive bowel sounds. No palpable organomegaly. MUSCULOSKELETAL: No joint swelling or deformity. EXTREMITIES: No cyanosis, clubbing, or pedal edema. Dressing intact to left foot. NEUROLOGICAL: Gross neurological examination did not reveal any focal deficits. SKIN: No rashes. 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 Hypertension Atrial Fibrillation Chronic nonhealing left foot diabetic ulcer GI Prophylaxis DVT Prophylaxis Full Code Plan Continue IV antibiotics Continue current medications Patient received PICC line today Possible D/C home in the next 24 hours The impression and plan of care has been dictated by Estelita Hurst, Nurse Practitioner as directed. Dr. Denise MD I have performed a history and physical examination and medical decision making of this patient, discussed the same with the dictator, and agree with the dictators assessment and plan as written, documented as a scribe. Based on total visit time, I have performed more than 50% of this visit. Objective - Vital Signs Vital signs: Vital Signs Temp 98.1 F 05/01/22 14:12 Pulse 51 L 05/01/22 14:12 Resp 17 05/01/22 14:12 BP 121/64 05/01/22 14:12 Pulse Ox 100 05/01/22 14:12 FiO2 Intake & Output 04/30/22 05/01/22 05/01/22 18:59 06:59 18:59 Output Total 725 900 Balance -725 -900 Output: Urine 725 900 Other: Voiding Method External Catheter External Catheter External Catheter - Labs CBC & Chem 7: 05/01/22 03:58 05/01/22 03:58 Labs: Abnormal Lab Results - Last 24 Hours (Table) 04/30/22 04/30/22 05/01/22 Range/Units 16:57 20:45 03:58 RBC (4.10-5.20) X 10*6/uL Hgb (12.0-15.0) g/dL Hct (37.2-46.3) % MCHC (32.0-37.0) g/dL Eosinophils # (0.04-0.35) X 10*3/uL Sodium 134 L (135-145) mmol/L BUN 42.2 H (9.0-27.0) mg/dL Creatinine 1.9 H (0.6-1.5) mg/dL Est GFR (CKD-EPI)AfAm 28.2 L (60.0-200.0) Est GFR (CKD-EPI)NonAf 24.3 L (60.0-200.0) BUN/Creatinine Ratio 22.21 H (12.00-20.00) Ratio POC Glucose (mg/dL) 223 H 209 H (70-110) mg/dL 05/01/22 05/01/22 Range/Units 03:58 11:37 RBC 3.63 L (4.10-5.20) X 10*6/uL Hgb 10.4 L (12.0-15.0) g/dL Hct 32.6 L (37.2-46.3) % MCHC 31.9 L (32.0-37.0) g/dL Eosinophils # 0.58 H (0.04-0.35) X 10*3/uL Sodium (135-145) mmol/L BUN (9.0-27.0) mg/dL Creatinine (0.6-1.5) mg/dL Est GFR (CKD-EPI)AfAm (60.0-200.0) Est GFR (CKD-EPI)NonAf (60.0-200.0) BUN/Creatinine Ratio (12.00-20.00) Ratio POC Glucose (mg/dL) 180 H (70-110) mg/dL Microbiology - Last 24 Hours (Table) 04/28/22 11:15 Gram Stain - Final Foot - Left Wound Culture - Final Enterococcus faecalis VRE 04/28/22 11:15 Anaerobic Culture - Final Foot - Left Anaerobic Gm Negative Bacilli 04/28/22 11:15 Anaerobic Culture - Final Foot - Left Anaerobic Gm Negative Bacilli 04/26/22 17:45 Blood Culture - Preliminary Blood No Growth after 96 hours 04/26/22 17:29 Blood Culture - Preliminary Blood No Growth after 96 hours 04/28/22 11:15 Gram Stain - Final Foot - Left Wound Culture - Final Assessment and Plan Time with Patient: Less than 30
[2022-05-01] MEDS: INSULIN DETEMIR (LEVEMIR) 100 UNIT/ML SYR SQ SCH (22:32)
[2022-05-02 06:23] LABS: Glucose,Whole Blood 131 mg/dL (70-110)
[2022-05-02] MEDS: INSULIN ASPART (NovoLOG) 100 UNIT/ML VIAL SQ SCH ×4 (06:26→11:46)
[2022-05-02] MEDS: SYMBICORT 160-4.5 MCG INHALER INHALATION SCH (07:40)
[2022-05-02] MEDS: hydrALAZINE HCL 25 MG TAB PO SCH (08:53)
[2022-05-02] MEDS: amLODIPine 5 MG TAB PO SCH (08:53)
[2022-05-02] MEDS: FOLIC ACID 1 MG TAB PO SCH (08:53)
[2022-05-02] MEDS: TAMSULOSIN 0.4 MG CAP.ER.24H PO SCH (08:53)
[2022-05-02] MEDS: FUROSEMIDE 20 MG TAB PO SCH (08:53)
[2022-05-02] MEDS: CYANOCOBALAMIN 500 MCG TAB PO SCH (08:53)
[2022-05-02 09:28] LABS: African American GFR (CKD) 30.1 (60.0-200.0); Anion Gap 11.1 mmol/L (10.00-18.00); BUN/Creat Ratio 24.44 Ratio (12.00-20.00); Calcium 8.8 mg/dL (8.7-10.3); Carbon Dioxide 21.9 mmol/L (20.0-27.5); Non-African American GFR(CKD) 25.9 (60.0-200.0); Potassium 4.1 mmol/L (3.5-5.5)
[2022-05-02] MEDS: RIVAROXABAN 15 MG TAB PO SCH (10:02)
[2022-05-02] MEDS: MEROPENEM 1 GM in SODIUM CHLORIDE 0.9% 100 ML IVPB SCH (10:02)
[2022-05-02 11:25] LABS: Glucose,Whole Blood 222 mg/dL (70-110)
--- NOTE | 2022-05-02 11:58 | P.PN ---
Subjective Patient is seen for follow-up for chronic kidney disease. Renal function has been stable with renal function at baseline. No significant complaints today Patient will continue IV antibiotics post discharge. Objective - Vital Signs Vital signs: Vital Signs Temp 98.2 F 05/02/22 08:00 Pulse 57 L 05/02/22 08:00 Resp 16 05/02/22 08:00 BP 116/64 05/02/22 08:00 Pulse Ox 99 05/02/22 08:00 FiO2 Intake & Output 05/01/22 05/02/22 05/02/22 18:59 06:59 18:59 Output Total 900 Balance -900 Output: Urine 900 Other: Voiding Method External Catheter External Catheter External Catheter # Voids 5 - Exam Patient is awake, comfortable, no acute distress Examination of the heart S1 and S2 Examination lungs bilateral breath sounds are heard Abdomen is soft nontender Examination of lower extremity shows no edema. Left foot is currently dressed. - Labs CBC & Chem 7: 05/01/22 03:58 05/02/22 04:51 Labs: Abnormal Lab Results - Last 24 Hours (Table) 05/01/22 05/01/22 05/02/22 Range/Units 16:51 20:43 04:51 Sodium 134 L (135-145) mmol/L BUN 44.0 H (9.0-27.0) mg/dL Creatinine 1.8 H (0.6-1.5) mg/dL Est GFR (CKD-EPI)AfAm 30.1 L (60.0-200.0) Est GFR (CKD-EPI)NonAf 25.9 L (60.0-200.0) BUN/Creatinine Ratio 24.44 H (12.00-20.00) Ratio Glucose 114 H (70-110) mg/dL POC Glucose (mg/dL) 150 H 314 H (70-110) mg/dL 05/02/22 05/02/22 Range/Units 06:21 11:23 Sodium (135-145) mmol/L BUN (9.0-27.0) mg/dL Creatinine (0.6-1.5) mg/dL Est GFR (CKD-EPI)AfAm (60.0-200.0) Est GFR (CKD-EPI)NonAf (60.0-200.0) BUN/Creatinine Ratio (12.00-20.00) Ratio Glucose (70-110) mg/dL POC Glucose (mg/dL) 131 H 222 H (70-110) mg/dL Microbiology - Last 24 Hours (Table) 04/26/22 17:45 Blood Culture - Preliminary Blood No Growth after 120 hours 04/26/22 17:29 Blood Culture - Preliminary Blood No Growth after 120 hours 04/28/22 11:15 Gram Stain - Final Foot - Left Wound Culture - Final Enterococcus faecalis VRE 04/28/22 11:15 Anaerobic Culture - Final Foot - Left Anaerobic Gm Negative Bacilli 04/28/22 11:15 Anaerobic Culture - Final Foot - Left Anaerobic Gm Negative Bacilli Assessment and Plan Assessment: 1. 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 GFR at baseline. 2. Left foot wound on antibiotics. Being followed by vascular surgery and infectious disease. Status post excisional debridement on 04/28/2022. 3. Diabetes mellitus. Plan: Follow-up as outpatient in 1-2 weeks post discharge.
[2022-05-02 14:42] VITALS: BP 125/64; PULSE 56; TEMP 97.6
--- NOTE | 2022-05-02 15:46 | P.DS ---
Providers Date of admission: 04/26/22 19:57 Attending physician: Faviola Robert Consults: 04/26/22 18:50 Consult Physician Routine Consulting Provider: Jamila Campos Consult Reason/Comments: left foot infection with gangrene Do you want consulting provider notified?: Already Contacted 04/27/22 08:17 Consult Physician Routine Consulting Provider: Blair Ocampo Consult Reason/Comments: Kidney disease Do you want consulting provider notified?: Yes 04/27/22 10:38 Consult Physician Urgent Consulting Provider: Jenniffer Don Consult Reason/Comments: Left foot necrotic ulcer. Has been treated by her in the past. Do you want consulting provider notified?: Yes Primary care physician: Megha Oneal Hospital Course: Final Diagnosis Acute worsening diabetic left foot infection failed outpatient therapy culture showing VRE MSSA and resistant pseudomonas Chronic kidney disease stage IV, most likely from diabetic nephropathy Diabetes Mellitus with hyperglycemia on admission hgb A1C 9.1. Hypertension Atrial Fibrillation Chronic nonhealing left foot diabetic ulcer Full Code Discharge Disposition Patient is stable for discharge home with family. Patient to continue local wound care. Patient has single lumen right upper extremity PICC Line in place and is recommended for 6 weeks of IV antibiotics with meropenem 1 gram every 12 hours. Patient will discharge with home care. Recommended to follow up with Dr Campos, primary care and nephrology. Repeat labs in 2 to 3 days. Hospital Course 82 years old female with past medical history of diabetes mellitus, hypertension, atrial fibrillation, chronic nonhealing left foot diabetic ulcer. Patient presents because of worsening infection of her left foot. Patient was sent in by her health information tech who referred her to the hospital. She reports increased discharge over the last 3 days. Patient has history of left foot forefoot amputation, currently she has no toes left on her left foot. There is black eschar on the bedside of the big toe, there is some discharge. Exposed bone. No significant surrounding redness but there is tenderness and his hard to confirm cellulitis because of the scar tissue Patient denies any other complaints, no headache dizziness weakness numbness, no dyspnea and dyspnea, no GI or urinary symptoms. Denies fever. CBC unremarkable on admission.Sodium slightly low 132, creatinine is elevated 1.9, which is at ba seline 1.6-2.0. Foot x-ray showing soft tissue areas that could be related to cellulitis and gangrene. As per records patient had positive wound culture done at [facility] showing VRE MSSA and resistant Pseudomonas. She is started on antibiotics with concern for osteomyelitis and infectious disease and vascular services consulted. Patient underwent excisional debridement of the left metatarsal wound with deep tissue culture growing enterococcus VRE. The wound measured 3 x 1.5 x 1 cm in depth with extension to the bone. There was abscess pocket extending to the plantar and dorsal aspect of the foot. Patient also evaluated by nephrology this admission and creatinine has remained within baseline. Remains afebrile. Patient had PICC line placed single lumen to right upper extremity and will discharge on IV meropenem 1 gram every 12 hours for 6 weeks. 05/02/2022 Patient evaluated today sitting up in chair. No acute complaints overnight. Patient denies chest pain, denies shortness of breath. Tolerating diet, bowels are moving. Lungs are clear, S1, S2 auscultated, abdomen is soft and nontender, focal neurological exam is negative, she is alert x 3. Dressing intact to right foot debridement site. Wound care instructions; Continue daily dressing change to debridement site with iodoform packing. Most recent labs showing white count 7.49, hgb 10.4, sodium 134, potassium 4.1, BUN 44, creatinine 1.8, blood glucose 200s. Insulin has been increased. Will be discharging home today with above mentioned recommendations. Total time taken in discharge planning greater than 35 minutes. Please see medication reconciliation for a list of current medication. Thank you for allowing us to participate in the care of this patient. The impression and plan of care has been dictated by Estelita Hurst, Nurse Practitioner as directed. Dr. Denise MD I have performed a history and physical examination and medical decision making of this patient, discussed the same with the dictator, and agree with the dictators assessment and plan as written, documented as a scribe. Based on total visit time, I have performed more than 50% of this visit. Patient Condition at Discharge: Good Plan - Discharge Summary New Discharge Prescriptions: New Meropenem [Merrem] 1 gm IVPB Q12H each Continue Rivaroxaban [Xarelto] 15 mg PO DAILY Clopidogrel [Plavix] 75 mg PO DAILY 30 Days #30 tab Tamsulosin HCl [Flomax] 0.4 mg PO DAILY Sodium Bicarbonate Tab 650 mg PO DAILY@1500 Omeprazole 20 mg PO DAILY Insulin Lispro [humaLOG Kwikpen] 4 unit SQ AC-TID Folic Acid 1 mg PO DAILY amLODIPine [Norvasc] 5 mg PO DAILY 30 Days #30 tab Acetaminophen Tab [Tylenol] 650 mg PO Q4HR PRN tab PRN Reason: Fever And/ Or Pain Furosemide [Lasix] 20 mg PO DAILY Simvastatin [Zocor] 10 mg PO HS Dulaglutide [Trulicity] 0.75 mg SQ MO Budesonide-Formot 160-4.5 Mcg [Symbicort 160-4.5 Mcg Inhaler] 2 puff INHALATION RT-BID Albuterol Inhaler [Ventolin Hfa Inhaler] 1 puff INHALATION RT-QID PRN PRN Reason: Shortness Of Breath Cyanocobalamin [Vitamin B-12] 500 mcg PO DAILY Insulin Lispro [humaLOG Kwikpen] See Protocol SQ TID-W/MEALS Potassium Chloride ER [K-Dur 10] 10 meq PO DAILY@1500 hydrALAZINE HCL [Apresoline] 25 mg PO BID 30 Days #60 tab Empagliflozin [Jardiance] 10 mg PO DAILY Changed Insulin Glargine,Hum.rec.anlog [Lantus Solostar Pen] 15 units SQ HS #0 No Action Amoxic-Pot Clav 875-125Mg [Augmentin 875-125] 1 tab PO Q12HR Ciprofloxacin HCl [Cipro] 500 mg PO Q12HR Discharge Medication List Cyanocobalamin [Vitamin B-12] 500 mcg PO DAILY 06/28/21 [History] Rivaroxaban [Xarelto] 15 mg PO DAILY 06/28/21 [History] Clopidogrel [Plavix] 75 mg PO DAILY 30 Days #30 tab 07/25/21 [Rx] Insulin Lispro [humaLOG Kwikpen] See Protocol SQ TID-W/MEALS 12/02/21 [History] Folic Acid 1 mg PO DAILY 02/20/22 [History] Insulin Lispro [humaLOG Kwikpen] 4 unit SQ AC-TID 02/20/22 [History] Omeprazole 20 mg PO DAILY 02/20/22 [History] Potassium Chloride ER [K-Dur 10] 10 meq PO DAILY@1500 02/20/22 [History] Sodium Bicarbonate Tab 650 mg PO DAILY@1500 02/20/22 [History] Tamsulosin HCl [Flomax] 0.4 mg PO DAILY 02/20/22 [History] Acetaminophen Tab [Tylenol] 650 mg PO Q4HR PRN tab 02/23/22 [Rx] amLODIPine [Norvasc] 5 mg PO DAILY 30 Days #30 tab 02/23/22 [Rx] hydrALAZINE HCL [Apresoline] 25 mg PO BID 30 Days #60 tab 02/23/22 [Rx] Albuterol Inhaler [Ventolin Hfa Inhaler] 1 puff INHALATION RT-QID PRN 04/26/22 [History] Amoxic-Pot Clav 875-125Mg [Augmentin 875-125] 1 tab PO Q12HR 04/26/22 [History] Budesonide-Formot 160-4.5 Mcg [Symbicort 160-4.5 Mcg Inhaler] 2 puff INHALATION RT-BID 04/26/22 [History] Ciprofloxacin HCl [Cipro] 500 mg PO Q12HR 04/26/22 [History] Dulaglutide [Trulicity] 0.75 mg SQ MO 04/26/22 [History] Empagliflozin [Jardiance] 10 mg PO DAILY 04/26/22 [History] Furosemide [Lasix] 20 mg PO DAILY 04/26/22 [History] Simvastatin [Zocor] 10 mg PO HS 04/26/22 [History] Insulin Glargine,Hum.rec.anlog [Lantus Solostar Pen] 15 units SQ HS #0 05/01/22 [Rx] Meropenem [Merrem] 1 gm IVPB Q12H each 05/02/22 [Rx] Follow up Appointment(s)/Referral(s): Megha Oneal DO [Primary Care Provider] - 1-2 days [facility], [NON-STAFF] - 1-2 Days ([facility] will call you to schedule your in home visits. Your first visit will be on 05/03/22 to begin in home IV antibiotic infusions.) [facility], [REFERRING] - As Needed ([facility] will deliver the IV antibiotic supplies to your home on the evening of 05/02/22.) Gama Simons MD [STAFF PHYSICIAN] - 1 Week Jamila Campos MD [STAFF PHYSICIAN] - 1 Week Ambulatory/Diagnostic Orders: Basic Metabolic Panel [LAB.AMB] Location: None Selected Complete Blood Count w/diff [LAB.AMB] Time Frame: 3 Days, Location: None Selected Activity/Diet/Wound Care/Special Instructions: Continue IV meropenem 1 gm every 12 hours for 6 weeks Follow up with vascular and follow up with Dr Campos in the wound care center Continue daily dressing change to debridement site with iodoform packing. Discharge Disposition: HOME WITH HOME HEALTH SERVICES
[2022-05-02] MEDS ORDERED: INSULIN DETEMIR (LEVEMIR) 100 UNIT/ML SYR SQ SCH (21:00)
== END 2022-05-02 14:45 | disposition home health service (06) | DRG 629 ==
LOC: EC 12:19 → 4SSUR 19:57
PROVIDERS: ADMIT Hospitalist; ATTEND Hospitalist
PROC: 0QBP0ZZ Excision of Left Metatarsal, Open Approach (ICD-10-PCS; principal; 2022-04-28 07:30)
PROC: 02HV33Z Insertion of Infusion Device into Superior Vena Cava, Percutaneous Approach (ICD-10-PCS; 2022-05-01)
PROC: B548ZZA Ultrasonography of Superior Vena Cava, Guidance (ICD-10-PCS; 2022-05-01)
PROC: B5181ZA Fluoroscopy of Superior Vena Cava using Low Osmolar Contrast, Guidance (ICD-10-PCS; 2022-05-01)
DX: E11.621 Type 2 diabetes mellitus with foot ulcer (principal); E11.52 Type 2 diabetes mellitus with diabetic peripheral angiopathy with gangrene; I13.0 Hypertensive heart and chronic kidney disease with heart failure and stage 1 through stage 4 chronic kidney disease, or unspecified chronic kidney disease; M86.172 Other acute osteomyelitis, left ankle and foot; I48.20 Chronic atrial fibrillation, unspecified; Z16.21 Resistance to vancomycin; I96 Gangrene, not elsewhere classified; L03.116 Cellulitis of left lower limb; N18.4 Chronic kidney disease, stage 4 (severe); E11.65 Type 2 diabetes mellitus with hyperglycemia; B96.5 Pseudomonas (aeruginosa) (mallei) (pseudomallei) as the cause of diseases classified elsewhere; E11.69 Type 2 diabetes mellitus with other specified complication; E11.22 Type 2 diabetes mellitus with diabetic chronic kidney disease; L97.529 Non-pressure chronic ulcer of other part of left foot with unspecified severity; B95.2 Enterococcus as the cause of diseases classified elsewhere; E11.628 Type 2 diabetes mellitus with other skin complications; B95.61 Methicillin susceptible Staphylococcus aureus infection as the cause of diseases classified elsewhere; I50.9 Heart failure, unspecified; Z79.01 Long term (current) use of anticoagulants; Z79.02 Long term (current) use of antithrombotics/antiplatelets; Z79.2 Long term (current) use of antibiotics; Z79.4 Long term (current) use of insulin; Z79.51 Long term (current) use of inhaled steroids; Z79.84 Long term (current) use of oral hypoglycemic drugs; Z79.899 Other long term (current) drug therapy; Z79.82 Long term (current) use of aspirin; Z90.49 Acquired absence of other specified parts of digestive tract
CPT/HCPCS: 36415; 36573; 80048; 80053; 83036; 83735; 85025; 85610; 85652; 85730; 86140; 87040; 87070; 87075; 87077; 87186; 87205; 94640; 96361; 96365; 96366; 96367; 99285

== ENCOUNTER 2022-11-07 11:46 | Observation (INO) | payer MEDICARE ==
--- NOTE | 2022-11-07 12:35 | ED ---
Female Urogenital HPI - General Chief complaint: Urogenital Stated complaint: UTI Time Seen by Provider: 11/07/22 12:07 Source: patient, family, RN notes reviewed Mode of arrival: wheelchair Limitations: no limitations - History of Present Illness Initial comments: This is an 82-year-old female who presents to the emergency department for concerns of a UTI. States that she's had increased urinary frequency as well as increasing weakness. She has been on Macrobid for a UTI over the last 4 days. 2 weeks prior to this, she was on 1 week of another antibiotic, but she cannot recall the name of it. She had one week off of antibiotics before starting the Macrobid. However, she feels like she is not getting any better. Today she started to feel very weak. Her daughters are present at bedside, and state that she tends to decline very quickly, especially when she starts to get weakness. Patient denies any pain. Denies any fevers, chills, sore throat, cough, dyspnea, chest pain, palpitations, abdominal pain, nausea, vomiting, diarrhea, back pain, or headaches. - Related Data Home Medications Medication Instructions Recorded Confirmed Rivaroxaban [Xarelto] 15 mg PO DAILY 06/28/21 11/07/22 Folic Acid 1 mg PO DAILY 02/20/22 11/07/22 Potassium Chloride ER [K-Dur 10] 10 meq PO DAILY 02/20/22 11/07/22 Tamsulosin HCl [Flomax] 0.4 mg PO DAILY 02/20/22 11/07/22 Albuterol Inhaler [Ventolin Hfa 2 puff INHALATION RT-QID PRN 04/26/22 11/07/22 Inhaler] Empagliflozin [Jardiance] 10 mg PO DAILY 04/26/22 11/07/22 Furosemide [Lasix] 20 mg PO DAILY 04/26/22 11/07/22 Simvastatin [Zocor] 10 mg PO DAILY 04/26/22 11/07/22 Dulaglutide [Trulicity] 1.5 mg SQ THOMSON 11/07/22 11/07/22 Insulin Aspart [NovoLOG Flexpen] 4 units SQ TID-W/MEALS 11/07/22 11/07/22 Insulin Aspart [NovoLOG Flexpen] See Protocol SQ TID-W/MEALS PRN 11/07/22 11/07/22 Insulin Glargine,Hum.rec.anlog 12 units SQ HS 11/07/22 11/07/22 [Lantus Solostar Pen] Nitrofurantoin Monohyd/M-Cryst 100 mg PO Q12HR 11/07/22 11/07/22 [Macrobid] Previous Rx's Medication Instructions Recorded amLODIPine [Norvasc] 5 mg PO DAILY 30 Days #30 tab 02/23/22 hydrALAZINE HCL [Apresoline] 25 mg PO BID 30 Days #60 tab 02/23/22 Allergies Allergy/AdvReac Type Severity Reaction Status Date / Time aspirin Allergy Anaphylaxis Verified 11/07/22 16:02 Review of Systems ROS Statement: Those systems with pertinent positive or pertinent negative responses have been documented in the HPI. ROS Other: All systems not noted in ROS Statement are negative. Past Medical History Past Medical History: Atrial Fibrillation, Heart Failure, Diabetes Mellitus, Hypertension, Renal Disease Additional Past Medical History / Comment(s): wound rt foot and rt chin, wound to left pinkey, bilateral toes amputation, kidney failure, CHF, History of Any Multi-Drug Resistant Organisms: None Reported Past Surgical History: Cholecystectomy Additional Past Surgical History / Comment(s): left foot all toes amputated; hematoma removal abdomen Past Anesthesia/Blood Transfusion Reactions: No Reported Reaction Past Psychological History: No Psychological Hx Reported Smoking Status: Never smoker Past Alcohol Use History: None Reported Past Drug Use History: None Reported - Past Family History Sister(s) Family Medical History: Cancer Brother(s) Family Medical History: Cancer General Exam Limitations: no limitations General appearance: alert, in no apparent distress Head exam: Present: atraumatic, normocephalic, normal inspection Respiratory exam: Present: normal lung sounds bilaterally. Absent: respiratory distress, wheezes, rales, rhonchi, stridor Cardiovascular Exam: Present: regular rate, normal rhythm, normal heart sounds. Absent: systolic murmur, diastolic murmur, rubs, gallop, clicks GI/Abdominal exam: Present: soft, normal bowel sounds. Absent: distended, te nderness, guarding, rebound, rigid Neurological exam: Present: alert, oriented X3, CN II-XII intact Psychiatric exam: Present: normal affect, normal mood Skin exam: Present: warm, dry, intact, normal color. Absent: rash Course Vital Signs 11/07/22 11:55 Temperature 98.0 F Pulse Rate 50 L Respiratory 18 Rate Blood Pressure 145/69 O2 Sat by Pulse 99 Oximetry Medical Decision Making - Medical Decision Making This is an 82-year-old female who presents to the emergency department for urinary frequency and generalized weakness. Was pt. sent in by a medical professional or institution? @ -No Did you speak to anyone other than the patient for history? @ -Yes, her daughters provided all of the information aside from the patient stating that she had increased frequency and felt very weak. Did you review nursing and triage notes? @ -Yes, and I agree, it is accurate with regards to the patient's symptoms. Were old charts reviewed? @ -No Differential Diagnosis? @ -Differential Weakness: Hypoglycemia, shock, sepsis, hyponatremia, anemia, infection, [place], ETOH, adverse medicine reaction, overdose, stroke, this is not meant to be an all-inclusive list. EKG interpreted by me (3pts min.)? @ -EKG interpreted by me demonstrating the following: Atrial fibrillation with slow ventricular response. Ventricular rate 51 beats per minute, QRS duration 138 ms, QTC 415 milliseconds. X-rays interpreted by me (1pt min.)? @ -Not obtained CT interpreted by me (1pt min.)? @ -Not obtained U/S interpreted by me (1pt. min.)? @ -Not obtained What testing was considered but not performed? (CT, X-rays, U/S, labs)? Why? @ -None What meds were considered but not given? Why? @ -None Did you discuss the management of the patient with other professionals? @ -Yes, Dr. Sr, who accepts the patient for admission. Did you reconcile home meds? @ -No Was smoking cessation discussed for >3mins.? @ -No Was critical care preformed (if so, how long)? @ -No Were there social determinants of health that impacted care today? How? (Ho melessness, low income, unemployed, alcoholism, drug addiction, transportation, low edu. Level, literacy, decrease access to med. care, fpc, rehab)? @ -No Was there de-escalation of care discussed even if they declined? (Discuss DNR or withdrawal of care, Hospice)? @ -No What co-morbidities impacted this encounter? (DM, HTN, Smoking, COPD, CAD, Cancer, CVA, Hep., AIDS, mental health diagnosis, sleep apnea, morbid obesity)? @ -DM, HTN, renal disease Was patient admitted / discharged? @ -Admitted. Lab work obtained with findings consistent with known history of renal disease. Urinalysis is also consistent with a urinary tract infection. I reviewed the patient's chart, but could not find the urine culture that was sent by her PCP 3 days ago. She was subsequently given a dose of ceftriaxone with blood and urine cultures obtained prior. Given that the patient has increasing weakness with failed outpatient management of the UTI, she was admitted to medicine for further management. Undiagnosed new problem with uncertain prognosis? @ -None Drug Therapy requiring intensive monitoring for toxicity (Heparin, Nitro, Insulin, Cardizem)? @ -None Were any procedures done? @ -None Diagnosis/symptom? @ -UTI, weakness Acute, or Chronic, or Acute on Chronic? @ -Acute Uncomplicated (without systemic symptoms) or Complicated (systemic symptoms)? @ -Complicated Side effects of treatment? @ -None Exacerbation, Progression, or Severe Exacerbation] @ -Not applicable Poses a threat to life or bodily function? @ -Yes This case was discussed in detail with the attending ED physician, Dr. Yepez. Presentation, findings, and treatment plan discussed in detail as well. - Lab Data Result diagrams: 11/07/22 12:20 11/07/22 12:20 Lab Results 11/07/22 11/07/22 11/07/22 Range/Units 12:20 12:20 12:20 WBC 8.5 (3.8-10.6) k/uL RBC 4.16 (3.80-5.40) m/uL Hgb 12.4 (11.4-16.0) gm/dL Hct 37.2 (34.0-46.0) % MCV 89.6 (80.0-100.0) fL MCH 29.9 (25.0-35.0) pg MCHC 33.3 (31.0-37.0) g/dL RDW 14.1 (11.5-15.5) % Plt Count 168 (150-450) k/uL MPV 8.1 Neutrophils % 67 % Lymphocytes % 20 % Monocytes % 7 % Eosinophils % 4 % Basophils % 0 % Neutrophils # 5.7 (1.3-7.7) k/uL Lymphocytes # 1.7 (1.0-4.8) k/uL Monocytes # 0.6 (0-1.0) k/uL Eosinophils # 0.3 (0-0.7) k/uL Basophils # 0.0 (0-0.2) k/uL PT 13.9 H (9.0-12.0) sec INR 1.4 H (<1.2) APTT 31.9 H (22.0-30.0) sec Sodium (137-145) mmol/L Potassium (3.5-5.1) mmol/L Chloride (98-107) mmol/L Carbon Dioxide (22-30) mmol/L Anion Gap mmol/L BUN (7-17) mg/dL Creatinine (0.52-1.04) mg/dL Est GFR (CKD-EPI)AfAm (>60 ml/min/1.73 sqM) Est GFR (CKD-EPI)NonAf (>60 ml/min/1.73 sqM) Glucose (74-99) mg/dL Plasma Lactic Acid Nolan (0.7-2.0) mmol/L Calcium (8.4-10.2) mg/dL Magnesium (1.6-2.3) mg/dL Total Bilirubin (0.2-1.3) mg/dL AST (14-36) U/L ALT (4-34) U/L Alkaline Phosphatase (38-126) U/L Troponin I (0.000-0.034) ng/mL Total Protein (6.3-8.2) g/dL Albumin (3.5-5.0) g/dL Urine Color Yellow Urine Appearance Turbid H (Clear) Urine pH 5.5 (5.0-8.0) Ur Specific [place] 1.011 (1.001-1.035) Urine Protein Trace H (Negative) Urine Glucose (UA) 3+ H (Negative) Urine Ketones Negative (Negative) Urine Blood Small H (Negative) Urine Nitrite Negative (Negative) Urine Bilirubin Negative (Negative) Urine Urobilinogen <2.0 (<2.0) mg/dL Ur Leukocyte Esterase Large H (Negative) Urine RBC 5 (0-5) /hpf Urine WBC >182 H (0-5) /hpf Urine WBC Clumps Many H (None) /hpf Ur Squamous Epith Cells 1 (0-4) /hpf Urine Bacteria Moderate H (None) /hpf Influenza Type A (PCR) (Not Detectd) Influenza Type B (PCR) (Not Detectd) RSV (PCR) (Not Detectd) SARS-CoV-2 (PCR) (Not Detectd) 11/07/22 11/07/22 11/07/22 Range/Units 12:20 12:20 12:20 WBC (3.8-10.6) k/uL RBC (3.80-5.40) m/uL Hgb (11.4-16.0) gm/dL Hct (34.0-46.0) % MCV (80.0-100.0) fL MCH (25.0-35.0) pg MCHC (31.0-37.0) g/dL RDW (11.5-15.5) % Plt Count (150-450) k/uL MPV Neutrophils % % Lymphocytes % % Monocytes % % Eosinophils % % Basophils % % Neutrophils # (1.3-7.7) k/uL Lymphocytes # (1.0-4.8) k/uL Monocytes # (0-1.0) k/uL Eosinophils # (0-0.7) k/uL Basophils # (0-0.2) k/uL PT (9.0-12.0) sec INR (<1.2) APTT (22.0-30.0) sec Sodium 136 L (137-145) mmol/L Potassium 4.1 (3.5-5.1) mmol/L Chloride 103 (98-107) mmol/L Carbon Dioxide 20 L (22-30) mmol/L Anion Gap 13 mmol/L BUN 42 H (7-17) mg/dL Creatinine 1.98 H (0.52-1.04) mg/dL Est GFR (CKD-EPI)AfAm 27 (>60 ml/min/1.73 sqM) Est GFR (CKD-EPI)NonAf 23 (>60 ml/min/1.73 sqM) Glucose 139 H (74-99) mg/dL Plasma Lactic Acid Nolan 1.5 (0.7-2.0) mmol/L Calcium 9.2 (8.4-10.2) mg/dL Magnesium 2.0 (1.6-2.3) mg/dL Total Bilirubin 0.7 (0.2-1.3) mg/dL AST 22 (14-36) U/L ALT 20 (4-34) U/L Alkaline Phosphatase 160 H (38-126) U/L Troponin I 0.017 (0.000-0.034) ng/mL Total Protein 7.9 (6.3-8.2) g/dL Albumin 4.1 (3.5-5.0) g/dL Urine Color Urine Appearance (Clear) Urine pH (5.0-8.0) Ur Specific [place] (1.001-1.035) Urine Protein (Negative) Urine Glucose (UA) (Negative) Urine Ketones (Negative) Urine Blood (Negative) Urine Nitrite (Negative) Urine Bilirubin (Negative) Urine Urobilinogen (<2.0) mg/dL Ur Leukocyte Esterase (Negative) Urine RBC (0-5) /hpf Urine WBC (0-5) /hpf Urine WBC Clumps (None) /hpf Ur Squamous Epith Cells (0-4) /hpf Urine Bacteria (None) /hpf Influenza Type A (PCR) (Not Detectd) Influenza Type B (PCR) (Not Detectd) RSV (PCR) (Not Detectd) SARS-CoV-2 (PCR) (Not Detectd) 11/07/22 Range/Units 12:20 WBC (3.8-10.6) k/uL RBC (3.80-5.40) m/uL Hgb (11.4-16.0) gm/dL Hct (34.0-46.0) % MCV (80.0-100.0) fL MCH (25.0-35.0) pg MCHC (31.0-37.0) g/dL RDW (11.5-15.5) % Plt Count (150-450) k/uL MPV Neutrophils % % Lymphocytes % % Monocytes % % Eosinophils % % Basophils % % Neutrophils # (1.3-7.7) k/uL Lymphocytes # (1.0-4.8) k/uL Monocytes # (0-1.0) k/uL Eosinophils # (0-0.7) k/uL Basophils # (0-0.2) k/uL PT (9.0-12.0) sec INR (<1.2) APTT (22.0-30.0) sec Sodium (137-145) mmol/L Potassium (3.5-5.1) mmol/L Chloride (98-107) mmol/L Carbon Dioxide (22-30) mmol/L Anion Gap mmol/L BUN (7-17) mg/dL Creatinine (0.52-1.04) mg/dL Est GFR (CKD-EPI)AfAm (>60 ml/min/1.73 sqM) Est GFR (CKD-EPI)NonAf (>60 ml/min/1.73 sqM) Glucose (74-99) mg/dL Plasma Lactic Acid Nolan (0.7-2.0) mmol/L Calcium (8.4-10.2) mg/dL Magnesium (1.6-2.3) mg/dL Total Bilirubin (0.2-1.3) mg/dL AST (14-36) U/L ALT (4-34) U/L Alkaline Phosphatase (38-126) U/L Troponin I (0.000-0.034) ng/mL Total Protein (6.3-8.2) g/dL Albumin (3.5-5.0) g/dL Urine Color Urine Appearance (Clear) Urine pH (5.0-8.0) Ur Specific [place] (1.001-1.035) Urine Protein (Negative) Urine Glucose (UA) (Negative) Urine Ketones (Negative) Urine Blood (Negative) Urine Nitrite (Negative) Urine Bilirubin (Negative) Urine Urobilinogen (<2.0) mg/dL Ur Leukocyte Esterase (Negative) Urine RBC (0-5) /hpf Urine WBC (0-5) /hpf Urine WBC Clumps (None) /hpf Ur Squamous Epith Cells (0-4) /hpf Urine Bacteria (None) /hpf Influenza Type A (PCR) Not Detected (Not Detectd) Influenza Type B (PCR) Not Detected (Not Detectd) RSV (PCR) Not Detected (Not Detectd) SARS-CoV-2 (PCR) Not Detected (Not Detectd) Disposition Clinical Impression: UTI (urinary tract infection), Weakness Disposition: ADMITTED IP TO THIS HOSP
[2022-11-07 12:52] LABS: Appearance,Urine Turbid (Clear); Bacteria,Urine Moderate /hpf; Bilirubin,Urine Negative (Negative); Blood,Urine Small (Negative); Color,Urine Yellow; Glucose,Urine (UA) 3+ (Negative); Ketones,Urine Negative (Negative); Leukocyte Esterase,Urine Large (Negative); Nitrite,Urine Negative (Negative); PH, Urine 5.5 (5.0-8.0); Protein,Urine Trace (Negative); RBC,Urine 5 /hpf (0-5); Specific Gravity,Urine 1.011 (1.001-1.035); Squamous Epithelial Cell,Urine 1 /hpf (0-4); Urobilinogen,Urine <2.0 mg/dL (<2.0); WBC,Urine >182 /hpf (0-5)
[2022-11-07] MEDS ORDERED: cefTRIAXone IN SWFI 1,000 MG/10 ML SYRINGE IVP STA (13:07)
[2022-11-07 13:14] LABS: Basophils % (A) 0 %; Eosinophils # (A) 0.3 k/uL (0-0.7); Eosinophils % (A) 4 %; HCT 37.2 % (34.0-46.0); HGB 12.4 gm/dL (11.4-16.0); Lymphocytes # (A) 1.7 k/uL (1.0-4.8); Lymphocytes % (A) 20 %; MCH 29.9 pg (25.0-35.0); MCHC 33.3 g/dL (31.0-37.0); MCV 89.6 fL (80.0-100.0); Mean Platelet Volume 8.1; Monocytes # (A) 0.6 k/uL (0-1.0); Monocytes % (A) 7 %; Neutrophils # (A) 5.7 k/uL (1.3-7.7); Neutrophils % (A) 67 %; Platelet Count 168 k/uL (150-450); RBC 4.16 m/uL (3.80-5.40); RDW 14.1 % (11.5-15.5); WBC 8.5 k/uL (3.8-10.6)
[2022-11-07 13:25] LABS: ALT 20 U/L (4-34); AST 22 U/L (14-36); African American GFR (CKD) 27 (>60 ml/min/1.73 sqM); Albumin 4.1 g/dL (3.5-5.0); Alkaline Phosphatase 160 U/L (38-126); Anion Gap 13 mmol/L; Blood Urea Nitrogen 42 mg/dL (7-17); Calcium 9.2 mg/dL (8.4-10.2); Carbon Dioxide 20 mmol/L (22-30); Chloride 103 mmol/L (98-107); Glucose 139 mg/dL (74-99); Non-African American GFR(CKD) 23 (>60 ml/min/1.73 sqM); Potassium 4.1 mmol/L (3.5-5.1); Sodium 136 mmol/L (137-145); Total Bilirubin 0.7 mg/dL (0.2-1.3); Total Protein 7.9 g/dL (6.3-8.2)
[2022-11-07 13:26] LABS: INR 1.4 (<1.2); Partial Thromboplastin Time 31.9 sec (22.0-30.0); Prothrombin Time 13.9 sec (9.0-12.0)
[2022-11-07] MEDS ORDERED: HYDROcodone/APAP 5-325MG 1 EACH TAB PO PRN (14:00)
[2022-11-07] MEDS ORDERED: ACETAMINOPHEN TAB 325 MG TAB PO PRN (14:00)
[2022-11-07] MEDS ORDERED: NALOXONE 0.4 MG/ML 1 ML VIAL IV PRN (14:00)
[2022-11-07] MEDS ORDERED: ONDANSETRON 4 MG/2 ML VIAL IVP PRN (14:00)
[2022-11-07] MEDS ORDERED: DEXTROSE 50% SYRINGE 50 ML IVP PRN ×2 (16:54)
[2022-11-07 17:20] LABS: Glucose,Whole Blood 143 mg/dL (70-110)
[2022-11-07] MEDS: INSULIN ASPART (NovoLOG) 100 UNIT/ML VIAL SQ SCH ×2 (17:21→21:36)
--- NOTE | 2022-11-07 17:49 | HP ---
HISTORY AND PHYSICAL CHIEF COMPLAINT: Weakness as well as some frequency urination. HISTORY OF PRESENT ILLNESS: This is an 82-year-old woman with a past medical history of multiple medical problems including atrial ablation and CHF, who is complaining of features of UTI. The patient is taking antibiotics for the last 4 days. The patient has increased frequency of micturition. The patient is apparently still weak and mildly confused. The patient is taken to [facility] and is admitted for further evaluation and treatment. There is no history of any fever, rigor, or chills at this time. PAST MEDICAL HISTORY: Reviewed includes atrial ablation, CHF, and diabetes mellitus. Rest of the history and rest of the chart are also reviewed. HOME MEDICATIONS: Reviewed include hydralazine. Doses and rest of the medications are reviewed, not confirmed yet. ALLERGIES: Aspirin. FAMILY HISTORY: History of cancer. SOCIAL HISTORY: No history of smoking or alcohol. REVIEW OF SYSTEMS: Fourteen-point review is negative except as mentioned earlier. PHYSICAL EXAMINATION: VITAL SIGNS: Pulse N respirations 18. HEENT: Conjunctivae are normal. Oral mucosa is dry. NECK: No jugular venous distention. CARDIOVASCULAR: S1 and S2 muffled. RESPIRATORY: Breath sounds diminished at the bases. ABDOMEN: Soft and nontender. No masses palpable. LEGS: No edema. NERVOUS SYSTEM: No focal deficits. SKIN: No ulcers or rashes. JOINTS: No active deforming arthropathy. ASSESSMENT: 1. Acute urinary tract infection, present on admission with failure of outpatient treatment. 2. Dehydration, present on admission with mild acute renal failure. 3. Atrial fibrillation. 4. History of congestive heart failure. 5. Diabetes mellitus, type 2. 6. Hypertension. RECOMMENDATIONS AND DISCUSSION: Recommend to continue current medications. Continue symptomatic treatment. We will initiate broad-spectrum IV antibiotics empirically. Obtain the cultures. I would also recommend to resume the home medications once they are confirmed. Prognosis is guarded, which I discussed at length with the family. Further recommendations to follow. MMODL / IJN: [id number] / MTDD
[2022-11-07] MEDS: SODIUM CHLORIDE 0.9% 1,000 ML IV SCH (18:04)
[2022-11-07 20:08] LABS: Glucose,Whole Blood 154 mg/dL (70-110)
[2022-11-07] MEDS: hydrALAZINE HCL 25 MG TAB PO SCH (21:39)
[2022-11-08 07:32] LABS: Basophils % (A) 0 %; Eosinophils # (A) 0.3 k/uL (0-0.7); Eosinophils % (A) 5 %; HCT 36.7 % (34.0-46.0); HGB 12.4 gm/dL (11.4-16.0); Lymphocytes # (A) 1.5 k/uL (1.0-4.8); Lymphocytes % (A) 25 %; MCHC 33.8 g/dL (31.0-37.0); MCV 91.7 fL (80.0-100.0); Monocytes # (A) 0.5 k/uL (0-1.0); Monocytes % (A) 9 %; Neutrophils # (A) 3.6 k/uL (1.3-7.7); Neutrophils % (A) 58 %; Platelet Count 175 k/uL (150-450); RDW 13.8 % (11.5-15.5); WBC 6.1 k/uL (3.8-10.6)
[2022-11-08 07:38] LABS: Glucose,Whole Blood 142 mg/dL (70-110)
[2022-11-08 07:40] LABS: African American GFR (CKD) 29 (>60 ml/min/1.73 sqM); Anion Gap 9 mmol/L; Blood Urea Nitrogen 38 mg/dL (7-17); Calcium 8.7 mg/dL (8.4-10.2); Carbon Dioxide 22 mmol/L (22-30); Chloride 105 mmol/L (98-107); Glucose 143 mg/dL (74-99); Non-African American GFR(CKD) 26 (>60 ml/min/1.73 sqM); Sodium 136 mmol/L (137-145)
[2022-11-08 08:10] LABS: Potassium 3.6 mmol/L (3.5-5.1)
[2022-11-08] MEDS: INSULIN ASPART (NovoLOG) 100 UNIT/ML VIAL SQ SCH ×4 (08:36→20:54)
[2022-11-08] MEDS: hydrALAZINE HCL 25 MG TAB PO SCH ×2 (08:36→20:54)
[2022-11-08] MEDS ORDERED: cefTRIAXone 1,000 MG VIAL (IM USE) IM SCH (09:00)
--- NOTE | 2022-11-08 10:24 | XR ---
EXAMINATION TYPE: XR chest 1V portable DATE OF EXAM: 11/08/2022 Comparison: 02/22/2022 Clinical History: 82-year-old female short of breath Findings: Heart is upper limits of normal in size. Aorta and pulmonary vasculature within normal limits. No con solidation or pleural effusion. Impression: No acute cardiopulmonary process.
--- NOTE | 2022-11-08 11:01 | PN ---
PROGRESS NOTE DATE OF SERVICE: 11/08/2022 SUBJECTIVE: This 82-year-old woman who was admitted with UTI, sepsis, and dehydration is being closely monitored. No chest pain, no palpitations, no fever. On empiric antibiotics. OBJECTIVE: VITAL SIGNS: Pulse 52, blood pressure 157/78, respirations 16. CHEST: Clear to auscultation. CARDIOVASCULAR: S1, S2. ABDOMEN: Soft. NERVOUS SYSTEM: Nonfocal. LABORATORY DATA: Reviewed. ASSESSMENT: 1. Acute urinary tract infection, present on admission, with failure of outpatient treatment. 2. Dehydration, present on admission, with mild acute renal failure. 3. Loose stools. 4. Atrial fibrillation. 5. History of congestive heart failure. 6. Diabetes mellitus type 2. 7. Hypertension. RECOMMENDATIONS: Recommend to continue current management, continue with antibiotics. I would recommend C difficile checking if C difficile is negative, Girish. See orders for further details. MMODL / IJN: [id number] / MTDD
[2022-11-08 12:02] VITALS: BMI 25.0
[2022-11-08 12:03] LABS: Glucose,Whole Blood 386 mg/dL (70-110)
[2022-11-08] MEDS: SODIUM CHLORIDE 0.9% 1,000 ML IV SCH (13:10)
[2022-11-08 17:04] LABS: Glucose,Whole Blood 171 mg/dL (70-110)
[2022-11-08 20:19] LABS: Glucose,Whole Blood 250 mg/dL (70-110)
--- NOTE | 2022-11-08 22:21 | P.CONS ---
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 patient recently did have a complete healing of her left foot patient also have a wound on the right foot lateral malleoli area, patient has been brought into the ER by the family concerning for urinary tract infection as the patient did have increased urinary frequency as well as increased weakness patient has been treated with oral Macrobid for UTI over the last 4 days however patient's symptoms continue to get worse for the patient was brought in via patient on presentation to the hospital was afebrile the patient did have some simple denies any fever denies any headache or URI symptoms no chest pain shortness of breath or cough no abdominal pain or diarrhea has been complaining of mostly urinary frequency denies any suprapubic or flank pain patient did have a normal white count BUN/creatinine has been mildly elevated urine was positive with likely ascites trace more than 182 WBC blood urine culture has been obtained patient was started on ceftriaxone infectious disease was consulted for further management of antibiotic therapy Review of Systems Positive point and negatives has been mentioned in the HPI, complete review of systems was performed and all other systems are negative Past Medical History Past Medical History: Atrial Fibrillation, Heart Failure, Diabetes Mellitus, Hypertension, Renal Disease Additional Past Medical History / Comment(s): wound rt foot and rt chin, wound to left pinkey, bilateral toes amputation, kidney failure, CHF, History of Any Multi-Drug Resistant Organisms: None Reported Past Surgical History: Cholecystectomy Additional Past Surgical History / Comment(s): left foot all toes amputated 2021; hematoma removal abdomen Past Anesthesia/Blood Transfusion Reactions: No Reported Reaction Past Psychological History: No Psychological Hx Reported Smoking Status: Never smoker Past Alcohol Use History: None Reported Past Drug Use History: None Reported - Past Family History Sister(s) Family Medical History: Cancer Brother(s) Family Medical History: Cancer Medications and Allergies Home Medications Medication Instructions Recorded Confirmed Type Rivaroxaban [Xarelto] 15 mg PO DAILY 06/28/21 11/07/22 History Folic Acid 1 mg PO DAILY 02/20/22 11/07/22 History Potassium Chloride ER [K-Dur 10] 10 meq PO DAILY 02/20/22 11/07/22 History Tamsulosin HCl [Flomax] 0.4 mg PO DAILY 02/20/22 11/07/22 History amLODIPine [Norvasc] 5 mg PO DAILY 30 Days #30 tab 02/23/22 11/07/22 Rx hydrALAZINE HCL [Apresoline] 25 mg PO BID 30 Days #60 tab 02/23/22 11/07/22 Rx Albuterol Inhaler [Ventolin Hfa 2 puff INHALATION RT-QID PRN 04/26/22 11/07/22 History Inhaler] Empagliflozin [Jardiance] 10 mg PO DAILY 04/26/22 11/07/22 History Furosemide [Lasix] 20 mg PO DAILY 04/26/22 11/07/22 History Simvastatin [Zocor] 10 mg PO DAILY 04/26/22 11/07/22 History Dulaglutide [Trulicity] 1.5 mg SQ THOMSON 11/07/22 11/07/22 History Insulin Aspart [NovoLOG Flexpen] 4 units SQ TID-W/MEALS 11/07/22 11/07/22 History Insulin Aspart [NovoLOG Flexpen] See Protocol SQ TID-W/MEALS PRN 11/07/22 11/07/22 History Insulin Glargine,Hum.rec.anlog 12 units SQ HS 11/07/22 11/07/22 History [Lantus Solostar Pen] Acetaminophen Tab [Tylenol] 650 mg PO Q6HR PRN tab 11/09/22 Rx cefUROXime axetiL [Ceftin] 500 mg PO BID 5 Days #10 tab 11/09/22 Rx Allergies Allergy/AdvReac Type Severity Reaction Status Date / Time aspirin Allergy Anaphylaxis Verified 11/07/22 16:02 Physical Exam Vitals: Vital Signs Temp Pulse Resp BP Pulse Ox 11/08/22 11:12 97.7 F 55 L 16 165/67 100 11/08/22 06:53 98.2 F 52 L 16 157/78 100 11/08/22 02:03 98.1 F 65 16 124/64 99 11/07/22 19:41 16 11/07/22 18:50 97.7 F 55 L 16 168/77 100 Intake and Output 0611/08/22 11/08/22 22:59 06:59 14:59 Output Total 0 350 Balance 0 -350 Output: Urine 350 Emesis 0 Other: Voiding Method External Catheter External Catheter # Voids 1 # Bowel Movements 1 Weight 70.307 kg 70.307 kg GENERAL DESCRIPTION: Elderly female lying in bed, no distress. No tachypnea or accessory muscle of respiration use. HEENT: Shows Pallor , no scleral icterus. Oral mucous membrane is dry. No pharyngeal erythema or thrush NECK: Trachea central, no thyromegaly. LUNGS: Unlabored breathing. Clear to auscultation anteriorly. HEART: S1, S2, regular rate and rhythm. No loud murmur ABDOMEN: Soft, no tenderness , guarding or rigidity, no organomegaly EXTREMITIES: Left foot is currently healed right lateral maintenance wound with no slough tissue or redness SKIN: No rash, no masses palpable. NEUROLOGICAL: The patient is awake, alert, oriented x3, mood and affect normal. Results CBC & Chem 7: 11/08/22 06:27 11/08/22 06:27 Labs: Abnormal Lab Results - Last 24 Hours (Table) 11/07/22 11/07/22 11/07/22 Range/Units 12:20 12:20 12:20 PT 13.9 H (9.0-12.0) sec INR 1.4 H (<1.2) APTT 31.9 H (22.0-30.0) sec Sodium 136 L (137-145) mmol/L Carbon Dioxide 20 L (22-30) mmol/L BUN 42 H (7-17) mg/dL Creatinine 1.98 H (0.52-1.04) mg/dL Glucose 139 H (74-99) mg/dL POC Glucose (mg/dL) (70-110) mg/dL Alkaline Phosphatase 160 H (38-126) U/L Urine Appearance Turbid H (Clear) Urine Protein Trace H (Negative) Urine Glucose (UA) 3+ H (Negative) Urine Blood Small H (Negative) Ur Leukocyte Esterase Large H (Negative) Urine WBC >182 H (0-5) /hpf Urine WBC Clumps Many H (None) /hpf Urine Bacteria Moderate H (None) /hpf 11/07/22 11/07/22 11/08/22 Range/Units 17:17 20:06 06:27 PT (9.0-12.0) sec INR (<1.2) APTT (22.0-30.0) sec Sodium 136 L (137-145) mmol/L Carbon Dioxide (22-30) mmol/L BUN 38 H (7-17) mg/dL Creatinine 1.83 H (0.52-1.04) mg/dL Glucose 143 H (74-99) mg/dL POC Glucose (mg/dL) 143 H 154 H (70-110) mg/dL Alkaline Phosphatase (38-126) U/L Urine Appearance (Clear) Urine Protein (Negative) Urine Glucose (UA) (Negative) Urine Blood (Negative) Ur Leukocyte Esterase (Negative) Urine WBC (0-5) /hpf Urine WBC Clumps (None) /hpf Urine Bacteria (None) /hpf 11/08/22 11/08/22 Range/Units 07:36 11:54 PT (9.0-12.0) sec INR (<1.2) APTT (22.0-30.0) sec Sodium (137-145) mmol/L Carbon Dioxide (22-30) mmol/L BUN (7-17) mg/dL Creatinine (0.52-1.04) mg/dL Glucose (74-99) mg/dL POC Glucose (mg/dL) 142 H 386 H (70-110) mg/dL Alkaline Phosphatase (38-126) U/L Urine Appearance (Clear) Urine Protein (Negative) Urine Glucose (UA) (Negative) Urine Blood (Negative) Ur Leukocyte Esterase (Negative) Urine WBC (0-5) /hpf Urine WBC Clumps (None) /hpf Urine Bacteria (None) /hpf Microbiology - Last 24 Hours (Table) 11/07/22 12:20 Urine Culture - Final Urine,Voided Assessment and Plan (1) Ulcer of right ankle Status: Acute Code(s): L97.319 - NON-PRESSURE CHRONIC ULCER OF RIGHT ANKLE WITH UNSP SEVERITY SNOMED Code(s): 599040131 (2) Urinary tract infection Status: Acute Code(s): N39.0 - URINARY TRACT INFECTION, SITE NOT SPECIFIED SNOMED Code(s): 55922219 Plan: 1patient was in the hospital with urinary frequency discomfort positive UA in this patient who did have history of recurrent UTI likely symptomatic UTI failing outpatient oral Macrobid therapy 2-patient did have a history of diabetic foot infection left foot is currently healed right foot did have wound on the lateral malleolar area which is currently clean with no evidence of any cellulitis 3-Rocephin 1 g daily to continue while waiting for the culture to finalize 4-local wound care to the right foot lateral border wound with dry Aquacel dressing change every 48 hour keep the area of the pressure We will follow on clinical condition and cultures to further adjust medication if needed Thank you for this consultation we will follow the patient along with you Time with Patient: Greater than 30
[2022-11-09 02:51] VITALS: RESP 16
[2022-11-09 07:17] LABS: Glucose,Whole Blood 166 mg/dL (70-110)
[2022-11-09 07:40] VITALS: BP 165/69; PULSE 52; TEMP 98.4
[2022-11-09] MEDS: hydrALAZINE HCL 25 MG TAB PO SCH (07:48)
[2022-11-09] MEDS: INSULIN ASPART (NovoLOG) 100 UNIT/ML VIAL SQ SCH (07:48)
[2022-11-09] MEDS: SODIUM CHLORIDE 0.9% 1,000 ML IV SCH (07:48)
[2022-11-09 12:13] LABS: Glucose,Whole Blood 220 mg/dL (70-110)
--- NOTE | 2022-11-09 21:41 | P.DS ---
Providers Date of admission: 11/07/22 13:57 Expected date of discharge: 11/09/22 Attending physician: Emeka Sr MD Consults: 11/08/22 10:29 Consult Physician Urgent Consulting Provider: Jamila Campos Consult Reason/Comments: uti, diarrhea Do you want consulting provider notified?: Yes Primary care physician: Megha Nolen Hospital Course: Final diagnosis Acute urinary tract infection, present on admission with failure of outpatient treatment Dehydration, present on admission with mild acute renal failure Loose stools, C. diff ruled out Atrial fibrillation history History of congestive heart failure Diabetes mellitus, type II Hypertension Full code Discharge disposition Patient is being discharged in a stable condition with guarded prognosis to home with home care. Patient will follow-up with Dr. Nolen in the outpatient setting upon discharge. Patient is to continue with oral Ceftin 500 mg twice daily for the next 5 days. Total time taken is greater than 35 minutes. Hospital course This is a 82-year-old female who was recently admitted with acute urinary tract infection along with dehydration and diarrhea being closely monitored. Patient being followed by infectious disease maintained on gentle IV hydration and IV antibiotics. Patient had been on antibiotics for UTI prior to admission as well and has had failure of outpatient treatment. Patient Lasix on hold currently and would recommend continuing to hold and follow-up with labs in the next few days. Patient evaluated by physical therapy and Homecare being arranged. Patient closely and stays with her daughter on discharge. Please refer to the consultation notes for further HPI. Patient reports to feeling extremely well and anxious to go home. Patient has been cleared by consultations. Currently no reports of chest pain, shortness of breath, or palpitations. Patient is afebrile. No reports of nausea or vomiting and patient is tolerating diet. Patient will be discharged home today. Guarded prognosis. High risk for readmissions given patient's significant comorbidities. Physical exam: Gen: This is a 82-year-old female who is awake, alert and oriented 3, thin buil t, elderly appearing HEENT: Head is atraumatic, normocephalic. Pupils equal, round. Sclerae is anicteric. NECK: Supple. No JVD. No lymphadenopathy. No thyromegaly. LUNGS: Clear to auscultation. No wheezes or rhonchi. No intercostal retractions. HEART: S1, S2 are muffled, irregular ABDOMEN: Soft. Bowel sounds are present. No masses. No tenderness. EXTREMITIES: No pedal edema. No calf tenderness. NEUROLOGICAL: Patient is awake, alert and oriented x3. Cranial nerves 2 through 12 are grossly intact. Please refer to medication reconciliation sheet for a list of medications. The impression and plan of care has been dictated by Mildred Swift, Nurse Practitioner as directed. Dr. Jakob MD I have performed a history and examination and MDM of this patient, discussed the same with the dictator, and agree with the dictator's assessment and plan as written ,documented as a scribe. Based on total visit time, I have performed more than 50% of the visit. Patient Condition at Discharge: Stable Plan - Discharge Summary Discharge Rx Participant: No New Discharge Prescriptions: New cefUROXime axetiL [Ceftin] 500 mg PO BID 5 Days #10 tab Acetaminophen Tab [Tylenol] 650 mg PO Q6HR PRN tab PRN Reason: Mild Pain Or Fever > 100.5 Continue Rivaroxaban [Xarelto] 15 mg PO DAILY Tamsulosin HCl [Flomax] 0.4 mg PO DAILY Folic Acid 1 mg PO DAILY amLODIPine [Norvasc] 5 mg PO DAILY 30 Days #30 tab Furosemide [Lasix] 20 mg PO DAILY Simvastatin [Zocor] 10 mg PO DAILY Albuterol Inhaler [Ventolin Hfa Inhaler] 2 puff INHALATION RT-QID PRN PRN Reason: Shortness Of Breath Dulaglutide [Trulicity] 1.5 mg SQ THOMSON Insulin Aspart [NovoLOG Flexpen] See Protocol SQ TID-W/MEALS PRN PRN Reason: HIGH BLOOD SUGAR Potassium Chloride ER [K-Dur 10] 10 meq PO DAILY hydrALAZINE HCL [Apresoline] 25 mg PO BID 30 Days #60 tab Empagliflozin [Jardiance] 10 mg PO DAILY Insulin Glargine,Hum.rec.anlog [Lantus Solostar Pen] 12 units SQ HS Insulin Aspart [NovoLOG Flexpen] 4 units SQ TID-W/MEALS Discontinued Nitrofurantoin Monohyd/M-Cryst [Macrobid] 100 mg PO Q12HR Discharge Medication List Rivaroxaban [Xarelto] 15 mg PO DAILY 06/28/21 [History] Folic Acid 1 mg PO DAILY 02/20/22 [History] Potassium Chloride ER [K-Dur 10] 10 meq PO DAILY 02/20/22 [History] Tamsulosin HCl [Flomax] 0.4 mg PO DAILY 02/20/22 [History] amLODIPine [Norvasc] 5 mg PO DAILY 30 Days #30 tab 02/23/22 [Rx] hydrALAZINE HCL [Apresoline] 25 mg PO BID 30 Days #60 tab 02/23/22 [Rx] Albuterol Inhaler [Ventolin Hfa Inhaler] 2 puff INHALATION RT-QID PRN 04/26/22 [History] Empagliflozin [Jardiance] 10 mg PO DAILY 04/26/22 [History] Furosemide [Lasix] 20 mg PO DAILY 04/26/22 [History] Simvastatin [Zocor] 10 mg PO DAILY 04/26/22 [History] Dulaglutide [Trulicity] 1.5 mg SQ THOMSON 11/07/22 [History] Insulin Aspart [NovoLOG Flexpen] 4 units SQ TID-W/MEALS 11/07/22 [History] Insulin Aspart [NovoLOG Flexpen] See Protocol SQ TID-W/MEALS PRN 11/07/22 [History] Insulin Glargine,Hum.rec.anlog [Lantus Solostar Pen] 12 units SQ HS 11/07/22 [History] Acetaminophen Tab [Tylenol] 650 mg PO Q6HR PRN tab 11/09/22 [Rx] cefUROXime axetiL [Ceftin] 500 mg PO BID 5 Days #10 tab 11/09/22 [Rx] Follow up Appointment(s)/Referral(s): Megha Nolen DO [Primary Care Provider] - 1-2 days (please call office for your appointment, office currently closed.) [facility], [NON-STAFF] - 1 Week Ambulatory/Diagnostic Orders: Basic Metabolic Panel [LAB.AMB] Time Frame: 3 Days, Location: None Selected Patient Instructions/Handouts: Urinary Tract Infection in Women (DC), Diabetic Foot Ulcers (DC) Activity/Diet/Wound Care/Special Instructions: activity Limited until follow-up Follow-up with primary care provider on discharge Continue antibiotics for 5 days to complete the course Continue to monitor blood sugars closely and keep a diary of all readings for primary care follow-up continue to hold Lasix for the next couple of days until follow-up with primary care provider and recommend repeat labs to monitor kidney functions at that point Discharge Disposition: HOME WITH HOME HEALTH SERVICES
--- NOTE | 2022-11-16 14:11 | P.PN ---
Subjective Progress Note Date: 11/09/22 Principal diagnosis: UTI and R ankle ulcer Patient is a 82-year-old female with multiple comorbidities, presented to hospital for evaluation of weakness did have a positive UA concerning for UTI failing outpatient oral antibiotic therapy On today's evaluation that is 11/09/2022, the patient denies having any fever or any chills patient denies having any chest pain shortness of breath or cough no nausea no vomiting no abdominal pain or any feeling better today and denies any pain to the right ankle wound Objective - Vital Signs Vital signs: Vital Signs Temp 98.4 F 11/09/22 07:13 Pulse 52 L 11/09/22 07:13 Resp 16 11/09/22 07:13 BP 165/69 11/09/22 07:13 Pulse Ox 100 11/09/22 07:13 FiO2 Intake & Output 11/08/22 11/09/22 11/09/22 18:59 06:59 18:59 Intake Total 625 Output Total 200 900 Balance 425 -900 Weight 70.307 kg Intake: Intake, IV Titration 625 Amount Sodium Chloride 0.9% 1, 575 000 ml @ 50 mls/hr IV . Q20H [facility] Rx#:[id number] cefTRIAXone 1 gm In 50 Sodium Chloride 0.9% 50 ml @ 100 mls/hr IVPB Q24HR [facility] Rx#:[id number] Output: Urine 200 900 Other: Voiding Method External Catheter External Catheter Bedside Commode # Voids 1 # Bowel Movements 1 - Exam GENERAL DESCRIPTION: An elderly female lying in bed in no distress RESPIRATORY SYSTEM: Unlabored breathing , decreased breath sounds at bases HEART: S1 S2 regular rate and rhythm , ABDOMEN: Soft , no tenderness EXTREMITIES: Right lateral ankle wound is dressed no drainage - Labs CBC & Chem 7: 11/08/22 06:27 11/08/22 06:27 Labs: Abnormal Lab Results - Last 24 Hours (Table) 11/08/22 11/08/22 11/08/22 Range/Units 11:54 17:02 20:17 POC Glucose (mg/dL) 386 H 171 H 250 H (70-110) mg/dL 11/09/22 Range/Units 07:15 POC Glucose (mg/dL) 166 H (70-110) mg/dL Microbiology - Last 24 Hours (Table) 11/07/22 12:47 Blood Culture - Preliminary Blood 11/07/22 13:33 Blood Culture - Preliminary Blood 11/07/22 12:20 Urine Culture - Final Urine,Voided Assessment and Plan (1) Pressure ulcer of right ankle, stage 2 Status: Acute Code(s): L89.512 - PRESSURE ULCER OF RIGHT ANKLE, STAGE 2 SNOMED Code(s): 26451729424662 (2) Urinary tract infection Status: Acute Code(s): N39.0 - URINARY TRACT INFECTION, SITE NOT SPECIFIED S NOMED Code(s): 67574592 Plan: 1patient was in the hospital with urinary frequency discomfort positive UA in this patient who did have history of recurrent UTI likely symptomatic UTI failing outpatient oral Macrobid therapy 2-patient did have a history of diabetic foot infection left foot is currently healed right foot did have wound on the lateral malleolar area which is currently clean with no evidence of any cellulitis, continue local wound care with Aquacel silver dressing 3-patient seemed to have shown clinical improvement on Rocephin, wants to go home, we will switch antibiotics to oral Ceftin and close outpatient follow-up Time with Patient: Less than 30
== END 2022-11-09 13:20 | disposition home health service (06) ==
LOC: EC 11:46 → INTOOBSV 13:57 → 5NMEDONC 13:57 → UNDODISIN 11-09 13:20
PROVIDERS: ADMIT Internal Medicine; ATTEND Internal Medicine
DX: N39.0 Urinary tract infection, site not specified (principal); N17.9 Acute kidney failure, unspecified; E86.0 Dehydration; I11.0 Hypertensive heart disease with heart failure; I50.9 Heart failure, unspecified; I48.91 Unspecified atrial fibrillation; R19.7 Diarrhea, unspecified; Z20.822 Contact with and (suspected) exposure to COVID-19; Z79.85 Long-term (current) use of injectable non-insulin antidiabetic drugs; Z79.84 Long term (current) use of oral hypoglycemic drugs; Z79.01 Long term (current) use of anticoagulants; Z79.4 Long term (current) use of insulin; Z79.899 Other long term (current) drug therapy; Z88.6 Allergy status to analgesic agent; Z90.49 Acquired absence of other specified parts of digestive tract; Z89.412 Acquired absence of left great toe; Z89.422 Acquired absence of other left toe(s); Z98.890 Other specified postprocedural states; Z80.9 Family history of malignant neoplasm, unspecified
CPT/HCPCS: 96365; 96376; 99284; 36415; 93005; 97530; 97162; 97166; 80053; 80048; 83605; 83735; 84484; 85025 ×2; 85610; 85730; 81001; 87040; 87086; 83036; 87636; 71045; G0378 ×3; J0696 ×3; 96374; 99285

== ENCOUNTER 2023-03-13 16:02 | Inpatient (IN) | payer MEDICARE ==
--- NOTE | 2023-03-13 17:09 | ED ---
Lower Extremity Injury HPI - General Chief Complaint: Extremity Injury, Lower Stated Complaint: wound infection Time Seen by Provider: 03/13/23 17:07 Source: patient, family, RN notes reviewed Mode of arrival: wheelchair Limitations: no limitations - History of Present Illness Initial Comments: Patient is an 82 year old female who presents to the emergency department for left foot infection. 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 Daughter states patient has had issues with wound opening intermittently since the procedure. State the wound reopened last month. Patient has had increased drainage over the past week. They do have an appointment with Dr. Campos on March 19 but state they were told to come in if the wound worsens. Patient has neuropathy therefore denies pain. Denies fever, chills, nausea, vomiting. Patient is currently on amoxicillin 250 mg daily for recurrent UTIs is not on antibiotics for the foot infection. - Related Data Home Medications Medication Instructions Recorded Confirmed Rivaroxaban [Xarelto] 15 mg PO DAILY 06/28/21 11/07/22 Folic Acid 1 mg PO DAILY 02/20/22 11/07/22 Potassium Chloride ER [K-Dur 10] 10 meq PO DAILY 02/20/22 11/07/22 Tamsulosin HCl [Flomax] 0.4 mg PO DAILY 02/20/22 11/07/22 Albuterol Inhaler [Ventolin Hfa 2 puff INHALATION RT-QID PRN 04/26/22 11/07/22 Inhaler] Empagliflozin [Jardiance] 10 mg PO DAILY 04/26/22 11/07/22 Furosemide [Lasix] 20 mg PO DAILY 04/26/22 11/07/22 Simvastatin [Zocor] 10 mg PO DAILY 04/26/22 11/07/22 Dulaglutide [Trulicity] 1.5 mg SQ THOMSON 11/07/22 11/07/22 Insulin Aspart [NovoLOG Flexpen] 4 units SQ TID-W/MEALS 11/07/22 11/07/22 Insulin Aspart [NovoLOG Flexpen] See Protocol SQ TID-W/MEALS PRN 11/07/22 11/07/22 Insulin Glargine,Hum.rec.anlog 12 units SQ HS 11/07/22 11/07/22 [Lantus Solostar Pen] Previous Rx's Medication Instructions Recorded amLODIPine [Norvasc] 5 mg PO DAILY 30 Days #30 tab 02/23/22 hydrALAZINE HCL [Apresoline] 25 mg PO BID 30 Days #60 tab 02/23/22 Acetaminophen Tab [Tylenol] 650 mg PO Q6HR PRN tab 11/09/22 cefUROXime axetiL [Ceftin] 500 mg PO BID 5 Days #10 tab 11/09/22 Allergies Allergy/AdvReac Type Severity Reaction Status Date / Time aspirin Allergy Anaphylaxis Verified 03/13/23 16:25 Review of Systems ROS Statement: Those systems with pertinent positive or pertinent negative responses have been documented in the HPI. ROS Other: All systems not noted in ROS Statement are negative. Past Medical History Past Medical History: Atrial Fibrillation, Heart Failure, Diabetes Mellitus, Hypertension, Renal Disease Additional Past Medical History / Comment(s): wound rt foot and rt chin, wound to left pinkey, bilateral toes amputation, kidney failure, CHF, History of Any Multi-Drug Resistant Organisms: None Reported Past Surgical History: Cholecystectomy Additional Past Surgical History / Comment(s): left foot all toes amputated 2021; hematoma removal abdomen Past Anesthesia/Blood Transfusion Reactions: No Reported Reaction Past Psychological History: No Psychological Hx Reported Smoking Status: Never smoker Past Alcohol Use History: None Reported Past Drug Use History: None Reported - Past Family History Sister(s) Family Medical History: Cancer Brother(s) Family Medical History: Cancer General Exam - General Exam Comments Initial Comments: Visual Physical Exam Vital signs reviewed General: Well-appearing, nontoxic, no acute distress. Head: Normocephalic, atraumatic Eyes: PERRLA, EOMI ENT: Airway patent Chest: Nonlabored breathing Skin: No visual rash, normal skin tone Neuro: Alert and oriented 3 Musculoskeletal: No gross abnormalities Limitations: no limitations General appearance: alert Head exam: Present: atraumatic, normocephalic, normal inspection Eye exam: Present: normal appearance, PERRL, EOMI. Absent: scleral icterus, c onjunctival injection, periorbital swelling Respiratory exam: Present: normal lung sounds bilaterally. Absent: respiratory distress, wheezes, rales, rhonchi, stridor Cardiovascular Exam: Present: regular rate, normal rhythm, normal heart sounds. Absent: systolic murmur, diastolic murmur, rubs, gallop, clicks Extremities exam: Present: other (transmetatarsal left foot amputation with 2 cm ulceration on dorsal foot. No drainage, erythema, warmth. No vascular compromise.) Neurological exam: Present: alert Psychiatric exam: Present: normal affect, normal mood Skin exam: Present: warm, dry, intact, normal color. Absent: rash Course Vital Signs 03/13/23 16:20 Temperature 98.4 F Pulse Rate 71 Respiratory 18 Rate Blood Pressure 158/72 O2 Sat by Pulse 99 Oximetry Medical Decision Making - Medical Decision Making I performed the QuickNote portion of this chart - Rosario Murray PA-C Was pt. sent in by a medical professional or institution (ANGELLA Coon, MEDICAL STAFF ASSISTANT, urgent care, hospital, or halfway...) When possible be specific @ -No Did you speak to anyone other than the patient for history (EMS, parent, family, police, friend...)? What history was obtained from this source @ -Daughter helps provide history Did you review nursing and triage notes (agree or disagree)? Why? @ -I reviewed and agree with nursing and triage notes Were old charts reviewed (outside hosp., previous admission, EMS record, old EKG, old radiological studies, urgent care reports/EKG's, halfway records)? Report findings @ -No old charts were reviewed Differential Diagnosis (chest pain, altered mental status, abdominal pain women, abdominal pain men, vaginal bleeding, weakness, fever, dyspnea, syncope, headache, dizziness, GI bleed, back pain, seizure, CVA, palpatations, mental health)? @ -Cellulitis, sepsis, ulcer EKG interpreted by me (3pts min.). @ -As above X-rays interpreted by me (1pt min.). @ -no osteomyelitis CT interpreted by me (1pt min.). @ -None done U/S interpreted by me (1pt. min.). @ -None done What testing was considered but not performed or refused? (CT, X-rays, U/S, labs)? Why? @ -None What meds were considered but not given or refused? Why? @ -None Did you discuss the management of the patient with other professionals (professionals i.e. ANGELLA Coon, MEDICAL STAFF ASSISTANT, lab, RT, psych nurse, social services assistant, geographic analyst, teacher, prison officer, disease case manager rn)? Give summary @ -No Was smoking cessation discussed for >3mins.? @ -No Was critical care preformed (if so, how long)? @ -No Were there social determinants of health that impacted care today? How? (Homelessness, low income, unemployed, alcoholism, drug addiction, transportation, low edu. Level, literacy, decrease access to med. care, group home, rehab)? @ -No Was there de-escalation of care discussed even if they declined (Discuss DNR or withdrawal of care, Hospice)? DNR status @ -No What co-morbidities impacted this encounter? (DM, HTN, Smoking, COPD, CAD, Cancer, CVA, ARF, Chemo, Hep., AIDS, mental health diagnosis, sleep apnea, morbi d obesity)? @ -None Was patient admitted / discharged? Hospital course, mention meds given and route, prescriptions, significant lab abnormalities, going to OR and other pertinent info. @ -[82-year-old female presenting for left foot infection. Patient does have small ulceration to the dorsal left foot. No surrounding cellulitis. No systemic symptoms or signs. No leukocytosis. I did speak with family regarding discharge with antibiotics and follow-up with Dr. Campos however they're very concerned that patient becomes septic easily requiring IV antibiotics. Patient does have extensive medical history including diabetes with old age. I discussed case with Miranda Lomeli who accepts admission for observation. IV rocephin and vancomycin started wound culture pending. Undiagnosed new problem with uncertain prognosis? @ -No Drug Therapy requiring intensive monitoring for toxicity (Heparin, Nitro, Insulin, Cardizem)? @ -No Were any procedures done? @ -No Diagnosis/symptom? @ -diabetic ulcer left foot Acute, or Chronic, or Acute on Chronic? @ -acute Uncomplicated (without systemic symptoms) or Complicated (systemic symptoms)? @ -uncomplicated Side effects of treatment? @ -No Exacerbation, Progression, or Severe Exacerbation? @ -No Poses a threat to life or bodily function? How? (Chest pain, [place], [place], pneumonia, PE, COPD, DKA, ARF, appy, cholecystitis, CVA, Diverticulitis, Homicidal, Suicidal, threat to staff... and all critical care pts) @ -No Dr. Sarmiento is my attending - Lab Data Result diagrams: 03/13/23 17:00 Lab Results 03/13/23 03/13/23 03/13/23 Range/Units 17:00 17:00 17:00 WBC 8.2 (3.8-10.6) k/uL RBC 4.16 (3.80-5.40) m/uL Hgb 12.4 (11.4-16.0) gm/dL Hct 37.7 (34.0-46.0) % MCV 90.6 (80.0-100.0) fL MCH 29.9 (25.0-35.0) pg MCHC 33.0 (31.0-37.0) g/dL RDW 13.5 (11.5-15.5) % Plt Count 187 (150-450) k/uL MPV 8.6 Neutrophils % 68 % Lymphocytes % 19 % Monocytes % 6 % Eosinophils % 5 % Basophils % 0 % Neutrophils # 5.5 (1.3-7.7) k/uL Lymphocytes # 1.6 (1.0-4.8) k/uL Monocytes # 0.5 (0-1.0) k/uL Eosinophils # 0.4 (0-0.7) k/uL Basophils # 0.0 (0-0.2) k/uL PT 14.5 H (10.0-12.5) sec INR 1.4 H (<1.2) APTT 32.6 H (22.0-30.0) sec Plasma Lactic Acid Nolan 1.1 (0.7-2.0) mmol/L Disposition Clinical Impression: Diabetic ulcer of left foot Disposition: [facility] Condition: Good Referrals: Megha Oneal DO [Primary Care Provider] - 1-2 days
[2023-03-13 17:30] LABS: Basophils % (A) 0 %; Eosinophils # (A) 0.4 k/uL (0-0.7); Eosinophils % (A) 5 %; HCT 37.7 % (34.0-46.0); HGB 12.4 gm/dL (11.4-16.0); Lymphocytes # (A) 1.6 k/uL (1.0-4.8); Lymphocytes % (A) 19 %; MCH 29.9 pg (25.0-35.0); MCV 90.6 fL (80.0-100.0); Mean Platelet Volume 8.6; Monocytes # (A) 0.5 k/uL (0-1.0); Monocytes % (A) 6 %; Neutrophils # (A) 5.5 k/uL (1.3-7.7); Neutrophils % (A) 68 %; Platelet Count 187 k/uL (150-450); RBC 4.16 m/uL (3.80-5.40); RDW 13.5 % (11.5-15.5); WBC 8.2 k/uL (3.8-10.6)
[2023-03-13 17:35] LABS: INR 1.4 (<1.2); Partial Thromboplastin Time 32.6 sec (22.0-30.0); Prothrombin Time 14.5 sec (10.0-12.5)
--- NOTE | 2023-03-13 17:47 | XR ---
EXAMINATION TYPE: XR foot complete LT DATE OF EXAM: 03/13/2023 5:33 PM CLINICAL INDICATION:Female, 82 years old with history of infection; [facility] COMPARISON: 04/26/2022 TECHNIQUE: XR foot complete LT examined in the AP, oblique, and lateral projections. FINDINGS: Indication changes of the digits 1 through 5 through the metatarsals. No evidence for simultaneous ga s. No evidence for osseous erosion. Severe atherosclerosis of the arterial vasculature. Calcaneal frances ntar spurring and Achilles enthesophyte. IMPRESSION: 1. No evidence of acute fracture. 2. Postsurgical changes without evidence for thoracic myelitis.
[2023-03-13] MEDS ORDERED: VANCOMYCIN IV PER PHARMACY 1 EACH MISC MISCELLANE PRN (18:10)
[2023-03-13] MEDS ORDERED: NALOXONE 0.4 MG/ML 1 ML VIAL IV PRN (18:13)
[2023-03-13 18:21] LABS: ALT 15 U/L (4-34); African American GFR (CKD) 29 (>60 ml/min/1.73 sqM); Anion Gap 14 mmol/L; Blood Urea Nitrogen 48 mg/dL (7-17); Calcium 9.3 mg/dL (8.4-10.2); Carbon Dioxide 18 mmol/L (22-30); Chloride 99 mmol/L (98-107); Glucose 314 mg/dL (74-99); Non-African American GFR(CKD) 25 (>60 ml/min/1.73 sqM); Sodium 131 mmol/L (137-145); Total Bilirubin 0.6 mg/dL (0.2-1.3)
[2023-03-13 18:26] LABS: AST 25 U/L (14-36); Alkaline Phosphatase 140 U/L (38-126); Potassium 4.8 mmol/L (3.5-5.1)
[2023-03-13 18:27] LABS: Albumin 3.8 g/dL (3.5-5.0); Total Protein 7.5 g/dL (6.3-8.2)
[2023-03-13] MEDS ORDERED: VANCOMYCIN 1,250 MG in SODIUM CHLORIDE 0.9% 250 ML IVPB STA (18:30)
[2023-03-13] MEDS: SODIUM CHLORIDE 0.9% 1,000 ML IV SCH (18:32)
[2023-03-13 22:27] LABS: Glucose,Whole Blood 260 mg/dL (70-110)
[2023-03-14] MEDS: INSULIN DETEMIR (LEVEMIR) 100 UNIT/ML SYR SQ SCH ×2 (01:14→20:59)
[2023-03-14] MEDS: hydrALAZINE HCL 25 MG TAB PO SCH ×3 (01:14→20:59)
[2023-03-14 05:54] LABS: Glucose,Whole Blood 154 mg/dL (70-110)
[2023-03-14 06:03] LABS: African American GFR (CKD) 31 (>60 ml/min/1.73 sqM); Non-African American GFR(CKD) 27 (>60 ml/min/1.73 sqM)
[2023-03-14] MEDS: INSULIN ASPART (NovoLOG) 100 UNIT/ML VIAL SQ SCH ×5 (06:17→20:59)
[2023-03-14] MEDS: SODIUM CHLORIDE 0.9% 1,000 ML IV SCH ×2 (06:18→20:59)
[2023-03-14 11:43] LABS: Glucose,Whole Blood 179 mg/dL (70-110)
[2023-03-14] MEDS ORDERED: AMPICILLIN-SULBACTAM 3 GM in SODIUM CHLORIDE 0.9% 100 ML IVPB SCH (12:15)
--- NOTE | 2023-03-14 14:32 | HP ---
HISTORY AND PHYSICAL CHIEF COMPLAINT: Left foot infection. HISTORY OF PRESENT ILLNESS: This 82-year-old woman with a past medical history of multiple medical problems, had a left transmetatarsal amputation last year and the patient had issues with infection opening intermittently. The patient is currently on antibiotic, but lack of improvement, the patient came to [facility] and admitted for further evaluation and treatment. The patient was admitted earlier this year for UTI and failure of outpatient treatment and dehydration. There is no history of any fever, rigors, or chills. PAST MEDICAL HISTORY: Transmetatarsal amputation of the left foot, atrial fibrillation, multiple medical problems, rest of the history and rest of the chart is also reviewed. MEDICATIONS: Lantus and Trulicity, dose and rest of medications reviewed. ALLERGIES: Aspirin. FAMILY HISTORY: No history of cancer. SOCIAL HISTORY: No history of smoking or alcohol. REVIEW OF SYSTEMS: A 14-point review is negative except as mentioned. PHYSICAL EXAMINATION: VITAL SIGNS: Pulse 52, blood pressure 130/66, respirations 18. HEENT: Conjunctivae normal. NECK: No jugular venous distention. CARDIOVASCULAR: S1, S2 muffled. RESPIRATIONS: Diminished in the bases. ABDOMEN: Soft, nontender. LEGS: Left foot transmetatarsal amputation and area of open drainage also present. NERVOUS SYSTEM: No focal deficits. SKIN: No ulcer, rash, bleeding. JOINTS: No active deforming arthropathy. LABORATORY DATA: Reviewed. ASSESSMENT: 1. Left foot diabetic infection with failure of outpatient treatment with possible cellulitis. 2. History of left transmetatarsal amputation. 3. History of atrial fibrillation. 4. History of CHF. 5. Hypertension. 6. Multiple complex medical issues. RECOMMENDATIONS: This 82-year-old woman presented with multiple complex medical issues, we will monitor the patient closely. We will initiate vascular consultation, I would also recommend empiric antibiotics. DVT prophylaxis. We will place the patient is on IV Unasyn. Obtain the cultures. Resume the home medications once they are confirmed. Monitor blood sugars closely. Prognosis guarded because of multiple complex medical issues. Further recommendations to follow. MMODL / IJN: [id number] /
[2023-03-14] MEDS ORDERED: VANCOMYCIN 1,250 MG in SODIUM CHLORIDE 0.9% 250 ML IVPB ONE (16:00)
[2023-03-14 17:12] LABS: Glucose,Whole Blood 130 mg/dL (70-110)
[2023-03-14 20:26] LABS: Glucose,Whole Blood 211 mg/dL (70-110)
--- NOTE | 2023-03-14 22:06 | P.CONS ---
History of Present Illness - Reason for Consult Consult date: 03/14/23 Left diabetic foot ulcer Requesting physician: Rosario Murray - Chief Complaint Left foot plantar wound worsening x few days - History of Present Illness Patient is a 82-year-old female with a past medical history significant for diabetes mellitus did have a history of diabetic foot infection in this patient was status post left transmetatarsal amputation patient did took a long time but he did have a complete healing of the left foot transmetatarsal amputation site wound patient also have a chronic nonhealing wound to the right foot lateral malleolar area patient now presenting to [facility] ER concerning for a left foot infection apparently patient did have a opening of wound on the plantar aspect of the left foot that opened about a month ago and noticed to have increased drainage over the last week patient did have diabetic neuropathy denies significant pain to the left foot plantar wound area main concern has been increasing drainage no significant redness or foul-smelling no chest pain shortness of breath or cough no nausea vomiting no abdominal pain or diarrhea patient on presentation to hospital was afebrile and no fever has been gone subsequently did have a normal white count BUN/creatinine mildly elevated liver exams are normal cultures obtained which are currently pending patient was started on vancomycin patient did have x-ray of the foot that was negative for any bony changes infectious disease was consulted for further management of antibiotic therapy Review of Systems Positive point and negatives has been mentioned in the HPI, complete review of systems was performed and all other systems are negative Past Medical History Past Medical History: Atrial Fibrillation, Heart Failure, Diabetes Mellitus, Hypertension, Renal Disease Additional Past Medical History / Comment(s): wound rt foot and rt chin, wound to left pinkey, bilateral toes amputation, kidney failure, CHF, "slight stroke" 10years ago, History of Any Multi-Drug Resistant Organisms: None Reported Past Surgical History: Cholecystectomy Additional Past Surgical History / Comment(s): left foot all toes amputated 2021; hematoma removal abdomen Past Anesthesia/Blood Transfusion Reactions: No Reported Reaction Past Psychological History: No Psychological Hx Reported Smoking Status: Never smoker Past Alcohol Use History: None Reported Past Drug Use History: None Reported - Past Family History Sister(s) Family Medical History: Cancer Brother(s) Family Medical History: Cancer Medications and Allergies Home Medications Medication Instructions Recorded Confirmed Type Rivaroxaban [Xarelto] 15 mg PO DAILY 06/28/21 03/13/23 History Folic Acid 1 mg PO DAILY 02/20/22 03/13/23 History Potassium Chloride ER [K-Dur 10] 10 meq PO DAILY 02/20/22 03/13/23 History Tamsulosin HCl [Flomax] 0.4 mg PO DAILY 02/20/22 03/13/23 History amLODIPine [Norvasc] 5 mg PO DAILY 30 Days #30 tab 02/23/22 03/13/23 Rx hydrALAZINE HCL [Apresoline] 25 mg PO BID 30 Days #60 tab 02/23/22 03/13/23 Rx Empagliflozin [Jardiance] 10 mg PO DAILY 04/26/22 03/13/23 History Furosemide [Lasix] 20 mg PO DAILY 04/26/22 03/13/23 History Simvastatin [Zocor] 10 mg PO DAILY 04/26/22 03/13/23 History Insulin Aspart [NovoLOG Flexpen] 6 units SQ TID-W/MEALS 11/07/22 03/13/23 History Insulin Aspart [NovoLOG Flexpen] See Protocol SQ TID-W/MEALS PRN 11/07/22 03/13/23 History Insulin Glargine,Hum.rec.anlog 16 units SQ HS 11/07/22 03/13/23 History [Lantus Solostar Pen] Acetaminophen Tab [Tylenol] 650 mg PO Q6HR PRN tab 11/09/22 03/13/23 Rx Amoxicillin 250 mg PO HS 03/13/23 03/13/23 History Dulaglutide [Trulicity] 0.75 mg SQ THOMSON 03/13/23 03/13/23 History Amoxic-Pot Clav 875-125Mg 1 tab PO Q12HR 14 Days #28 tab 03/19/23 Rx [Augmentin 875-125] Ciprofloxacin HCl [Cipro] 500 mg PO BID 14 Days #28 tab 03/19/23 Rx Allergies Allergy/AdvReac Type Severity Reaction Status Date / Time aspirin Allergy Anaphylaxis Verified 03/13/23 19:11 Physical Exam Vitals: Vital Signs Temp Pulse Pulse Resp BP BP Pulse Ox 03/14/23 07:30 52 L 18 03/14/23 07:17 98.5 F 52 L 18 134/64 100 03/14/23 02:00 98 F 54 L 150/72 97 03/13/23 22:46 98 F 53 L 150/65 98 03/13/23 22:20 58 L 18 155/80 100 03/13/23 18:33 58 L 18 161/83 99 03/13/23 16:20 98.4 F 71 18 158/72 99 Intake and Output 03/13/23 03/14/23 03/14/23 22:59 06:59 14:59 Other: Voiding Method Bedside Commode Bedside Commode Diaper Diaper # Voids 1 1 # Bowel Movements 1 Weight 70.307 kg 70.307 kg GENERAL DESCRIPTION: Elderly female lying in bed, no distress. No tachypnea or accessory muscle of respiration use. HEENT: Shows Pallor , no scleral icterus. Oral mucous membrane is dry. No pharyngeal erythema or thrush NECK: Trachea central, no thyromegaly. LUNGS: Unlabored breathing. Clear to auscultation anteriorly. No wheeze or crackle. HEART: S1, S2, regular rate and rhythm. No loud murmur ABDOMEN: Soft, no tenderness , guarding or rigidity, no organomegaly EXTREMITIES: Left foot plantar wound with some callus around it no foul-smelling drainage right foot lateral malleolar wound with no slough tissue or surrounding redness. SKIN: No rash, no masses palpable. NEUROLOGICAL: The patient is awake, alert, oriented x3, mood and affect normal. Results CBC & Chem 7: 03/16/23 06:13 03/16/23 06:13 Labs: Abnormal Lab Results - Last 24 Hours (Table) 03/13/23 03/13/23 03/13/23 Range/Units 17:00 17:00 22:24 PT 14.5 H (10.0-12.5) sec INR 1.4 H (<1.2) APTT 32.6 H (22.0-30.0) sec Sodium 131 L (137-145) mmol/L Carbon Dioxide 18 L (22-30) mmol/L BUN 48 H (7-17) mg/dL Creatinine 1.86 H (0.52-1.04) mg/dL Glucose 314 H (74-99) mg/dL POC Glucose (mg/dL) 260 H (70-110) mg/dL Alkaline Phosphatase 140 H (38-126) U/L 03/14/23 03/14/23 Range/Units 05:30 05:54 PT (10.0-12.5) sec INR (<1.2) APTT (22.0-30.0) sec Sodium (137-145) mmol/L Carbon Dioxide (22-30) mmol/L BUN (7-17) mg/dL Creatinine 1.75 H (0.52-1.04) mg/dL Glucose (74-99) mg/dL POC Glucose (mg/dL) 154 H (70-110) mg/dL Alkaline Phosphatase (38-126) U/L Assessment and Plan (1) Diabetic ulcer of left foot Current Visit: Yes Status: Acute Code(s): E11.621 - TYPE 2 DIABETES MELLITUS WITH FOOT ULCER; L97.529 - NON-PRESSURE CHRONIC ULCER OTH PRT LEFT FOOT W UNSP SEVERITY SNOMED Code(s): 565892607 (2) Diabetic infection of left foot Current Visit: No Status: Acute Code(s): E11.628 - TYPE 2 DIABETES MELLITUS WITH OTHER SKIN COMPLICATIONS; L08.9 - LOCAL INFECTION OF THE SKIN AND SUBCUTANEOUS TISSUE, UNSP SNOMED Code(s): 46731486 Plan: 1patient presented to hospital with the left diabetic foot ulcer possibly infected callus and likely related to the polymicrobial leslee usually associated diabetic foot infection and this patient has previously grown mostly Enterococcus and anaerobes x-rays were negative for any bony changes and the wound did not probe down to the bone at the time of cultures 2-patient with mild insufficiency high risk of nephrotoxicity 3-local culture has been obtained both aerobic and anaerobic to guide further antibiotic therapy 4-continue vancomycin watching her kidney function closely however we will add Unasyn while waiting for the culture to finalize 5-local wound care with a dry Aquacel packing of the wound both left foot plantar and right lateral malleolar wound We will follow on clinical condition and cultures to further adjust medication if needed Thank you for this consultation we will follow the patient along with you Dictation was produced using [employer] dictation software. please excuse any grammatical, word or spelling errors. Time with Patient: Greater than 30
[2023-03-15] MEDS: AMPICILLIN-SULBACTAM 3 GM in SODIUM CHLORIDE 0.9% 100 ML IVPB SCH ×2 (00:14→16:27)
[2023-03-15 05:59] LABS: Glucose,Whole Blood 91 mg/dL (70-110)
[2023-03-15] MEDS: INSULIN ASPART (NovoLOG) 100 UNIT/ML VIAL SQ SCH ×7 (06:04→20:41)
--- NOTE | 2023-03-15 07:38 | XR ---
EXAMINATION TYPE: XR chest 1V portable DATE OF EXAM: 03/15/2023 7:00 AM COMPARISON: Chest radiographs from 11/08/2022 TECHNIQUE: XR chest 1V portable Portable AP radiograph of the chest. CLINICAL INDICATION:Female, 82 years old with history of chf; FINDINGS: Lungs/Pleura: There is no evidence of pleural effusion, focal consolidation, or pneumothorax. Chroni c elevation the right hemidiaphragm. Pulmonary vascularity: Unremarkable. Heart/mediastinum: Cardiomediastinal silhouette is unremarkable. Musculoskeletal: No acute osseous pathology. Other findings: Cholecystectomy clips identified in the upper abdomen. IMPRESSION: No acute cardiopulmonary disease/process.
[2023-03-15] MEDS: TAMSULOSIN 0.4 MG CAP.ER.24H PO SCH (10:39)
[2023-03-15] MEDS: hydrALAZINE HCL 25 MG TAB PO SCH ×2 (10:40→20:41)
[2023-03-15] MEDS: FOLIC ACID 1 MG TAB PO SCH (10:40)
[2023-03-15] MEDS: ATORVASTATIN 10 MG TAB PO SCH (10:40)
[2023-03-15] MEDS: POTASSIUM CHLORIDE ER 10 MEQ TAB.ER.PRT PO SCH (10:40)
[2023-03-15] MEDS: amLODIPine 5 MG TAB PO SCH (10:41)
[2023-03-15] MEDS: FUROSEMIDE 20 MG TAB PO SCH (10:41)
[2023-03-15] MEDS: DAPAGLIFLOZIN PROPANEDIOL 5 MG TABLET PO SCH (10:42)
[2023-03-15 10:44] LABS: Basophils # (A) 0.02 X 10*3/uL (0.00-0.10); Basophils % (A) 0.3 %; Eosinophils # (A) 0.45 X 10*3/uL (0.04-0.35); Eosinophils % (A) 6.8 %; HCT 33.9 % (37.2-46.3); HGB 10.9 d/dL (12.0-15.0); Lymphocytes # (A) 1.43 X 10*3/uL (0.90-5.00); Lymphocytes % (A) 21.5 %; MCH 29.6 pg (27.0-32.0); MCHC 32.2 d/dL (32.0-37.0); MCV 92.1 FL (80.0-97.0); Mean Platelet Volume 10.8 FL (9.5-12.2); Monocytes # (A) 0.81 X 10*3/uL (0.20-1.00); Monocytes % (A) 12.2 %; NRBC Per 100 WBC 0 X 10*3/uL (0.00-0.01); Neutrophils # (A) 3.86 X 10*3/uL (1.80-7.70); Neutrophils % (A) 58.1 %; Platelet Count 192 X 10*3/uL (140-440); RBC 3.68 X 10*6/uL (4.10-5.20); RDW 13.3 % (11.5-14.5); WBC 6.64 X 10*3/uL (4.50-10.00)
[2023-03-15 11:22] LABS: Glucose,Whole Blood 148 mg/dL (70-110)
[2023-03-15 11:56] LABS: Erythrocyte Sedimentation Rate 58 mm/Hr (0-30)
[2023-03-15 12:04] LABS: ALT 10 U/L (8-44); AST 14 U/L (13-35); Albumin 3.1 d/dL (3.8-4.9); Alkaline Phosphatase 92 U/L (41-126); BUN/Creat Ratio 19.87 Ratio (12.00-20.00); Blood Urea Nitrogen 29.8 mg/dL (9.0-27.0); Calcium 8.7 mg/dL (8.7-10.3); Carbon Dioxide 19.7 mmol/L (21.6-31.8); Chloride 108 mmol/L (96-109); Globulin 3.1 d/dL (1.6-3.3); Glucose 81 mg/dL (70-110); Potassium 4.1 mmol/L (3.5-5.5); Sodium 138 mmol/L (135-145); Total Bilirubin <0.2 mg/dL (0.3-1.2); Total Protein 6.2 d/dL (6.2-8.2)
[2023-03-15] MEDS: PIPERACILLIN-TAZOBACTAM 3.375 GM in SODIUM CHLORIDE 0.9% 100 ML IVPB SCH ×2 (13:46→20:41)
[2023-03-15] MEDS: SODIUM CHLORIDE 0.9% 1,000 ML IV SCH (13:47)
--- NOTE | 2023-03-15 14:31 | P.GSCN ---
History of Present Illness Consult date: 03/15/23 Reason for Consult: Left foot diabetic ulcer Requesting physician: Mildred Swift History of present illness: 82-year-old female known to our service with a past medical history including diabetes mellitus, peripheral neuropathy, diabetic ulcers, gangrenous toes status post left TMA, peripheral arterial disease, atrial fibrillation Xarelto, hypertension and chronic renal disease presented to the emergency department concerned for possible infected diabetic ulcer. Patient underwent transmetatarsal amputation of the left foot on 09/09/2021 for gangrenous toes. She had prolonged healing of the wound and was undergoing wound care with Dr. Campos. She had undergone 2 surgical excisional debridements following the TMA, last one noted 05/08/2022. She has not seen Dr. Campos in several months as the wound had healed well. Her daughters do wound care at home and she has established a diabetic ulcer on the plantar aspect of her foot. The daughter was concerned with the TMA site as she felt that there was some increased drainage and odor. Patient also has a diabetic ulcer to the right ankle. The daughters have been caring for her wounds at home. She denies any fevers, chills, body aches, chest pain, shortness of breath, abdominal pain, nausea or vomiting. Patient was admitted for IV antibiotics. Vascular surgery was consulted for diabetic ulcer. She is currently on Zosyn. Left foot x-ray reports no evidence of acute fracture. Postsurgical changes without evidence of osteomyelitis. Review of Systems A 14 point review systems was completed all pertinent positives and negatives as stated in the HPI. Past Medical History Past Medical History: Atrial Fibrillation, Heart Failure, Diabetes Mellitus, Hypertension, Renal Disease Additional Past Medical History / Comment(s): wound rt foot and rt chin, wound to left pinkey, bilateral toes amputation, kidney failure, CHF, "slight stroke" 10years ago, History of Any Multi-Drug Resistant Organisms: None Reported Past Surgical History: Cholecystectomy Additional Past Surgical History / Comment(s): left foot all toes amputated 2021; hematoma removal abdomen Past Anesthesia/Blood Transfusion Reactions: No Reported Reaction Past Psychological History: No Psychological Hx Reported Smoking Status: Never smoker Past Alcohol Use History: None Reported Past Drug Use History: None Reported - Past Family History Sister(s) Family Medical History: Cancer Brother(s) Family Medical History: Cancer Medications and Allergies Home Medications Medication Instructions Recorded Confirmed Type Rivaroxaban [Xarelto] 15 mg PO DAILY 06/28/21 03/13/23 History Folic Acid 1 mg PO DAILY 02/20/22 03/13/23 History Potassium Chloride ER [K-Dur 10] 10 meq PO DAILY 02/20/22 03/13/23 History Tamsulosin HCl [Flomax] 0.4 mg PO DAILY 02/20/22 03/13/23 History amLODIPine [Norvasc] 5 mg PO DAILY 30 Days #30 tab 02/23/22 03/13/23 Rx hydrALAZINE HCL [Apresoline] 25 mg PO BID 30 Days #60 tab 02/23/22 03/13/23 Rx Empagliflozin [Jardiance] 10 mg PO DAILY 04/26/22 03/13/23 History Furosemide [Lasix] 20 mg PO DAILY 04/26/22 03/13/23 History Simvastatin [Zocor] 10 mg PO DAILY 04/26/22 03/13/23 History Insulin Aspart [NovoLOG Flexpen] 6 units SQ TID-W/MEALS 11/07/22 03/13/23 History Insulin Aspart [NovoLOG Flexpen] See Protocol SQ TID-W/MEALS PRN 11/07/22 03/13/23 History Insulin Glargine,Hum.rec.anlog 16 units SQ HS 11/07/22 03/13/23 History [Lantus Solostar Pen] Acetaminophen Tab [Tylenol] 650 mg PO Q6HR PRN tab 11/09/22 03/13/23 Rx Amoxicillin 250 mg PO HS 03/13/23 03/13/23 History Dulaglutide [Trulicity] 0.75 mg SQ THOMSON 03/13/23 03/13/23 History Allergies Allergy/AdvReac Type Severity Reaction Status Date / Time aspirin Allergy Anaphylaxis Verified 03/13/23 19:11 Surgical - Exam Vital Signs Temp Pulse Resp BP Pulse Ox 98.4 F 71 18 158/72 99 03/13/23 16:20 03/13/23 16:20 03/13/23 16:20 03/13/23 16:20 03/13/23 16:20 General appearance: The patient is alert, oriented, appears in no acute distress. HET: Head is normocephalic and atraumatic. Pupils are equal and reactive. Neck: Supple. Heart: Regular. Lungs: Equal expansion, normal respiratory effort. Abdomen: Soft, nontender, nondistended. Extremities: Bilateral lower extremities warm to the touch, no pitting edema with good capillary refill. Right ankle with diabetic ulcer with slough tissue, wound bed cleaned and bleeding. Left TMA site dorsal aspect of the heel with some callus skin which was divided at the bedside. Plantar aspect with diabetic ulcer/callus without any significant drainage. Again callus debrided at the bedside. Neurological: No focal deficits. Alert and oriented. Results - Labs 03/15/23 06:25 03/15/23 06:25 Abnormal Lab Results - Last 24 Hours (Table) 03/14/23 03/14/23 03/15/23 Range/Units 17:10 20:25 06:25 RBC 3.68 L (4.10-5.20) X 10*6/uL Hgb 10.9 L (12.0-15.0) d/dL Hct 33.9 L (37.2-46.3) % Eosinophils # 0.45 H (0.04-0.35) X 10*3/uL ESR 58 H (0-30) mm/Hr Carbon Dioxide (21.6-31.8) mmol/L BUN (9.0-27.0) mg/dL Est GFR (CKD-EPI) (>=60) POC Glucose (mg/dL) 130 H 211 H (70-110) mg/dL Total Bilirubin (0.3-1.2) mg/dL C-Reactive Protein (0.00-0.80) mg/dL Albumin (3.8-4.9) d/dL Albumin/Globulin Ratio (1.60-3.17) Ratio 03/15/23 03/15/23 Range/Units 06:25 11:21 RBC (4.10-5.20) X 10*6/uL Hgb (12.0-15.0) d/dL Hct (37.2-46.3) % Eosinophils # (0.04-0.35) X 10*3/uL ESR (0-30) mm/Hr Carbon Dioxide 19.7 L (21.6-31.8) mmol/L BUN 29.8 H (9.0-27.0) mg/dL Est GFR (CKD-EPI) 35 L (>=60) POC Glucose (mg/dL) 148 H (70-110) mg/dL Total Bilirubin <0.2 L (0.3-1.2) mg/dL C-Reactive Protein 1.70 H (0.00-0.80) mg/dL Albumin 3.1 L (3.8-4.9) d/dL Albumin/Globulin Ratio 1.00 L (1.60-3.17) Ratio Microbiology - Last 24 Hours (Table) 03/13/23 18:27 Gram Stain - Preliminary Foot - Left Wound Culture - Preliminary Gram Neg Bacilli 03/14/23 11:30 Gram Stain - Preliminary Foot - Left 03/13/23 17:00 Blood Culture - Preliminary Blood 03/13/23 17:00 Blood Culture - Preliminary Blood Diabetes panel 03/15/23 Range/Units 06:25 Sodium 138 (135-145) mmol/L Potassium 4.1 (3.5-5.5) mmol/L Chloride 108 (96-109) mmol/L Carbon Dioxide 19.7 L (21.6-31.8) mmol/L BUN 29.8 H (9.0-27.0) mg/dL Creatinine 1.5 (0.6-1.5) mg/dL Glucose 81 (70-110) mg/dL Calcium 8.7 (8.7-10.3) mg/dL AST 14 (13-35) U/L ALT 10 (8-44) U/L Alkaline Phosphatase 92 (41-126) U/L Total Protein 6.2 (6.2-8.2) d/dL Albumin 3.1 L (3.8-4.9) d/dL Calcium panel 03/15/23 Range/Units 06:25 Calcium 8.7 (8.7-10.3) mg/dL Albumin 3.1 L (3.8-4.9) d/dL Pituitary panel 03/15/23 Range/Units 06:25 Sodium 138 (135-145) mmol/L Potassium 4.1 (3.5-5.5) mmol/L Chloride 108 (96-109) mmol/L Carbon Dioxide 19.7 L (21.6-31.8) mmol/L BUN 29.8 H (9.0-27.0) mg/dL Creatinine 1.5 (0.6-1.5) mg/dL Glucose 81 (70-110) mg/dL Calcium 8.7 (8.7-10.3) mg/dL Adrenal panel 03/15/23 Range/Units 06:25 Sodium 138 (135-145) mmol/L Potassium 4.1 (3.5-5.5) mmol/L Chloride 108 (96-109) mmol/L Carbon Dioxide 19.7 L (21.6-31.8) mmol/L BUN 29.8 H (9.0-27.0) mg/dL Creatinine 1.5 (0.6-1.5) mg/dL Glucose 81 (70-110) mg/dL Calcium 8.7 (8.7-10.3) mg/dL Total Bilirubin <0.2 L (0.3-1.2) mg/dL AST 14 (13-35) U/L ALT 10 (8-44) U/L Alkaline Phosphatase 92 (41-126) U/L Total Protein 6.2 (6.2-8.2) d/dL Albumin 3.1 L (3.8-4.9) d/dL Assessment and Plan Assessment: 1. Left foot diabetic ulcer 2. History of left TMA 3. Peripheral arterial disease 4. Atrial fibrillation on Xarelto 5. Diabetes mellitus 6. Diabetic peripheral neuropathy Plan: Left foot diabetic ulcer and TMA site callus trimmed. Right ankle evaluated and cleaned, wound bed healthy pink tissue bleeding noted. There is no indication for any surgical debridement. Continue with local wound care as ordered and recommend outpatient follow-up with wound care clinic. Thank you for this consultation, we will sign off at this time. The impression and plan of care has been dictated as directed. I performed a history and examination of this patient, discussed the same with the dictator. I agree with the dictator's note ,documented as a scribe. Any additional findings or plans will be noted. Sharp excisional debridement was performed at the bedside. A scissors was used at the area was cleansed appropriately. The callus on the anterior portion of the transmetatarsal site wound was excised and denuded down to healthy-appearing tissue. The plantar wound itself the callus and epidermis were excised with scissors. The incision carried down to the level of subcutaneous tissue were a small amount of fibrinous tissue was removed. There appeared to be decent appearing healthy granulation tissue beyond this. There was no evidence of bone at this site. The wound itself measured 1.5 x 1.6 x 1.5 cm Attention was then turned towards the medial ankle wound, the overlying fibrinous tissue was removed utilizing pickups as a curet and subsequently with mechanical debridement using a gauze to the level healthy-appearing granulation tissue. The wound measured 2.5 x 1.7 x 0.2 cm
[2023-03-15] MEDS ORDERED: VANCOMYCIN 1,250 MG in SODIUM CHLORIDE 0.9% 250 ML IVPB ONE (17:00)
[2023-03-15 17:06] LABS: Glucose,Whole Blood 143 mg/dL (70-110)
[2023-03-15 20:22] LABS: Glucose,Whole Blood 242 mg/dL (70-110)
[2023-03-15] MEDS: INSULIN DETEMIR (LEVEMIR) 100 UNIT/ML SYR SQ SCH (20:41)
--- NOTE | 2023-03-15 22:44 | P.PN ---
Subjective Progress Note Date: 03/15/23 Principal diagnosis: Left diabetic foot infection/ulcer Patient is a 82-year-old female with a past medical history negative for diabetes mellitus did have a history of diabetic foot infection requiring left transmetatarsal amputation now presenting to the hospital with a wound to the left foot plantar aspect and drainage concerning for infection. On today's evaluation that is 03/15/2023 patient denies having any fever or any chills, the patient is breathing comfortably no chest pain shortness of breath or cough no nausea obtain abdominal pain or diarrhea denies pain to the left foot area. Patient did have white count of 6.64 creatinine is 1.5 local cultures growing gram-negative bacilli. Objective - Vital Signs Vital signs: Vital Signs Temp 97.9 F 03/15/23 07:11 Pulse 49 L 03/15/23 08:00 Resp 18 03/15/23 08:00 BP 170/62 03/15/23 07:11 Pulse Ox 100 03/15/23 07:11 FiO2 Intake & Output 03/14/23 03/15/23 03/15/23 18:59 06:59 18:59 Intake Total 350 Balance 350 Intake: Intake, IV Titration 350 Amount Ampicillin-Sulbactam 3 gm 100 In Sodium Chloride 0.9% 100 ml @ 200 mls/hr IVPB Q12H [facility] Rx#:[id number] Vancomycin 1,250 mg In 250 Sodium Chloride 0.9% 250 ml @ 125 mls/hr IVPB ONCE ONE Rx#:[id number] Other: Voiding Method Bedside Commode Bedside Commode Diaper Diaper # Voids 1 2 - Exam GENERAL DESCRIPTION: Elderly female lying in bed in no distress RESPIRATORY SYSTEM: Unlabored breathing , decreased breath sounds at bases HEART: S1 S2 regular rate and rhythm ,no loud murmurs ABDOMEN: Soft , no tenderness EXTREMITIES: Left foot wound is currently dressed no drainage on the dressing - Labs CBC & Chem 7: 03/15/23 06:25 03/15/23 06:25 Labs: Abnormal Lab Results - Last 24 Hours (Table) 03/14/23 03/14/23 03/15/23 Range/Units 17:10 20:25 06:25 RBC 3.68 L (4.10-5.20) X 10*6/uL Hgb 10.9 L (12.0-15.0) d/dL Hct 33.9 L (37.2-46.3) % Eosinophils # 0.45 H (0.04-0.35) X 10*3/uL ESR 58 H (0-30) mm/Hr Carbon Dioxide (21.6-31.8) mmol/L BUN (9.0-27.0) mg/dL Est GFR (CKD-EPI) (>=60) POC Glucose (mg/dL) 130 H 211 H (70-110) mg/dL Total Bilirubin (0.3-1.2) mg/dL C-Reactive Protein (0.00-0.80) mg/dL Albumin (3.8-4.9) d/dL Albumin/Globulin Ratio (1.60-3.17) Ratio 03/15/23 03/15/23 Range/Units 06:25 11:21 RBC (4.10-5.20) X 10*6/uL Hgb (12.0-15.0) d/dL Hct (37.2-46.3) % Eosinophils # (0.04-0.35) X 10*3/uL ESR (0-30) mm/Hr Carbon Dioxide 19.7 L (21.6-31.8) mmol/L BUN 29.8 H (9.0-27.0) mg/dL Est GFR (CKD-EPI) 35 L (>=60) POC Glucose (mg/dL) 148 H (70-110) mg/dL Total Bilirubin <0.2 L (0.3-1.2) mg/dL C-Reactive Protein 1.70 H (0.00-0.80) mg/dL Albumin 3.1 L (3.8-4.9) d/dL Albumin/Globulin Ratio 1.00 L (1.60-3.17) Ratio Microbiology - Last 24 Hours (Table) 03/13/23 18:27 Gram Stain - Preliminary Foot - Left Wound Culture - Preliminary Gram Neg Bacilli 03/14/23 11:30 Gram Stain - Preliminary Foot - Left 03/13/23 17:00 Blood Culture - Preliminary Blood 03/13/23 17:00 Blood Culture - Preliminary Blood Assessment and Plan (1) Diabetic ulcer of left foot Current Visit: Yes Status: Acute Code(s): E11.621 - TYPE 2 DIABETES MELLITUS WITH FOOT ULCER; L97.529 - NON-PRESSURE CHRONIC ULCER OTH PRT LEFT FOOT W UNSP SEVERITY SNOMED Code(s): 524265052 (2) Diabetic infection of left foot Current Visit: No Status: Acute Code(s): E11.628 - TYPE 2 DIABETES MELLITUS WITH OTHER SKIN COMPLICATIONS; L08.9 - LOCAL INFECTION OF THE SKIN AND SUBCUTANEOUS TISSUE, UNSP SNOMED Code(s): 93739731 Plan: 1patient presented to hospital with the left diabetic foot ulcer possibly infected callus and likely related to the polymicrobial leslee usually associated diabetic foot infection and this patient has previously grown mostly Enterococcus and anaerobes x-rays were negative for any bony changes and the wound did not probe down to the bone at the time of cultures 2-patient with mild insufficiency high risk of nephrotoxicity 3local cultures currently growing gram-negative bacilli ID sensitivities pending. 4we will discontinue vancomycin and Unasyn and start the patient on Zosyn while waiting for the culture to finalize. 5-local wound care with a dry Aquacel packing of the wound both left foot plantar and right lateral malleolar wound Dictation was produced using [employer] dictation software. please excuse any gramma tical, word or spelling errors.
[2023-03-16] MEDS: SODIUM CHLORIDE 0.9% 1,000 ML IV SCH ×2 (00:05→19:32)
[2023-03-16 05:41] LABS: Glucose,Whole Blood 90 mg/dL (70-110)
[2023-03-16] MEDS: PIPERACILLIN-TAZOBACTAM 3.375 GM in SODIUM CHLORIDE 0.9% 100 ML IVPB SCH ×3 (05:55→21:10)
[2023-03-16] MEDS: ACETAMINOPHEN TAB 325 MG TAB PO PRN ×2 (05:56→17:01)
[2023-03-16] MEDS: INSULIN ASPART (NovoLOG) 100 UNIT/ML VIAL SQ SCH ×7 (06:01→21:11)
--- NOTE | 2023-03-16 07:35 | PN ---
PROGRESS NOTE SUBJECTIVE: This is an 82-year-old woman who was admitted with left foot diabetic infection and failure of outpatient treatment with possible cellulitis, is being closely monitored. No chest pain, no palpitations, no fever. Cultures are pending. OBJECTIVE: VITAL SIGNS: Pulse is 54, blood pressure 170/60, respirations 16. CHEST: Clear to auscultation. CARDIOVASCULAR: S1, S2. ABDOMEN: Soft. EXTREMITIES: Left foot infection present. LABORATORY DATA: Reviewed. ASSESSMENT: 1. Left foot diabetic foot infection with failure of outpatient treatment with possible cellulitis. 2. History of left transmetatarsal amputation previously. 3. History atrial fibrillation. 4. History of CHF. 5. Hypertension. 6. Multiple complex medical issues. RECOMMENDATIONS: Recommended to continue current medications, continue symptomatic treatment. Otherwise, continue the antibiotic and await final cultures, DVT prophylaxis. Guarded prognosis. Further recommendations to follow, see orders for details. Vascular Surgery and Infectious Disease evaluation. MMODL / IJN: [id number] /
[2023-03-16 07:47] LABS: African American GFR (CKD) 30 (>60 ml/min/1.73 sqM); Anion Gap 12 mmol/L; Blood Urea Nitrogen 31 mg/dL (7-17); Calcium 9.2 mg/dL (8.4-10.2); Carbon Dioxide 19 mmol/L (22-30); Chloride 106 mmol/L (98-107); Glucose 81 mg/dL (74-99); Non-African American GFR(CKD) 26 (>60 ml/min/1.73 sqM); Potassium 4.1 mmol/L (3.5-5.1); Sodium 137 mmol/L (137-145)
[2023-03-16] MEDS: FUROSEMIDE 20 MG TAB PO SCH (09:46)
[2023-03-16] MEDS: TAMSULOSIN 0.4 MG CAP.ER.24H PO SCH (09:46)
[2023-03-16] MEDS: hydrALAZINE HCL 25 MG TAB PO SCH ×2 (09:46→21:10)
[2023-03-16] MEDS: POTASSIUM CHLORIDE ER 10 MEQ TAB.ER.PRT PO SCH (09:46)
[2023-03-16] MEDS: ATORVASTATIN 10 MG TAB PO SCH (09:47)
[2023-03-16] MEDS: FOLIC ACID 1 MG TAB PO SCH (09:47)
[2023-03-16] MEDS: DAPAGLIFLOZIN PROPANEDIOL 5 MG TABLET PO SCH (09:47)
[2023-03-16] MEDS: amLODIPine 5 MG TAB PO SCH (09:47)
--- NOTE | 2023-03-16 10:15 | P.PN ---
Subjective Progress Note Date: 03/16/23 Principal diagnosis: Diabetic foot ulcers Patient was seen and examined today for follow-up. No acute changes through the night. Patient is complaining of headache this morning. She's been afebrile. Preliminary wound culture growing gram-negative bacilli. Infectious diseases following with recommendations for IV Zosyn at this time. Objective - Vital Signs Vital signs: Vital Signs Temp 98.1 F 03/16/23 06:52 Pulse 53 L 03/16/23 08:21 Resp 17 03/16/23 08:21 BP 163/67 03/16/23 06:52 Pulse Ox 100 03/16/23 06:52 FiO2 Intake & Output 03/15/23 03/16/23 03/16/23 18:59 06:59 18:59 Intake Total 200 Balance 200 Intake: Oral 200 Other: Voiding Method Bedside Commode Toilet Toilet Diaper Bedside Commode # Voids 2 9 1 - Exam General appearance: The patient is alert, oriented, appears in no acute distre ss. HET: Head is normocephalic and atraumatic. Pupils are equal and reactive. Neck: Supple. Abdomen: Soft, nondistended. Extremities: Bilateral feet with dressing clean dry and intact. Neurological: No focal deficits. - Labs CBC & Chem 7: 03/15/23 06:25 03/16/23 06:13 Labs: Abnormal Lab Results - Last 24 Hours (Table) 03/15/23 03/15/23 03/15/23 Range/Units 06:25 06:25 11:21 RBC 3.68 L (4.10-5.20) X 10*6/uL Hgb 10.9 L (12.0-15.0) d/dL Hct 33.9 L (37.2-46.3) % Eosinophils # 0.45 H (0.04-0.35) X 10*3/uL ESR 58 H (0-30) mm/Hr Carbon Dioxide 19.7 L (21.6-31.8) mmol/L BUN 29.8 H (9.0-27.0) mg/dL Creatinine (0.52-1.04) mg/dL Est GFR (CKD-EPI) 35 L (>=60) POC Glucose (mg/dL) 148 H (70-110) mg/dL Total Bilirubin <0.2 L (0.3-1.2) mg/dL C-Reactive Protein 1.70 H (0.00-0.80) mg/dL Albumin 3.1 L (3.8-4.9) d/dL Albumin/Globulin Ratio 1.00 L (1.60-3.17) Ratio 03/15/23 03/15/23 03/16/23 Range/Units 17:05 20:20 06:13 RBC (4.10-5.20) X 10*6/uL Hgb (12.0-15.0) d/dL Hct (37.2-46.3) % Eosinophils # (0.04-0.35) X 10*3/uL ESR (0-30) mm/Hr Carbon Dioxide 19 L (21.6-31.8) mmol/L BUN 31 H (9.0-27.0) mg/dL Creatinine 1.80 H (0.52-1.04) mg/dL Est GFR (CKD-EPI) (>=60) POC Glucose (mg/dL) 143 H 242 H (70-110) mg/dL Total Bilirubin (0.3-1.2) mg/dL C-Reactive Protein (0.00-0.80) mg/dL Albumin (3.8-4.9) d/dL Albumin/Globulin Ratio (1.60-3.17) Ratio Microbiology - Last 24 Hours (Table) 03/13/23 17:00 Blood Culture - Preliminary Blood 03/13/23 17:00 Blood Culture - Preliminary Blood 03/13/23 18:27 Gram Stain - Preliminary Foot - Left Wound Culture - Preliminary Gram Neg Bacilli 03/14/23 11:30 Gram Stain - Preliminary Foot - Left Assessment and Plan Assessment: 1. Left foot diabetic ulcer 2. History of left TMA 3. Peripheral arterial disease 4. Atrial fibrillation on Xarelto 5. Diabetes mellitus 6. Diabetic peripheral neuropathy Plan: Left foot diabetic ulcer and TMA site callus trimmed. Right ankle evaluated and cleaned, wound bed healthy pink tissue bleeding noted. There is no indication for any surgical debridement. Continue with local wound care as ordered and recommend outpatient follow-up with wound care clinic. Thank you for this consultation, we will sign off at this time. The impression and plan of care has been dictated as directed. Dr.Foley Girard performed a history and examination of this patient, discussed the same with the dictator. I agree with the dictator's note ,documented as a scribe. Any additional findings or plans will be noted.
[2023-03-16 11:19] LABS: Basophils # (A) 0.04 X 10*3/uL (0.00-0.10); Basophils % (A) 0.6 %; Eosinophils # (A) 0.45 X 10*3/uL (0.04-0.35); Eosinophils % (A) 6.6 %; HCT 36.5 % (37.2-46.3); HGB 11.8 d/dL (12.0-15.0); Lymphocytes # (A) 1.53 X 10*3/uL (0.90-5.00); Lymphocytes % (A) 22.3 %; MCH 29.9 pg (27.0-32.0); MCHC 32.3 d/dL (32.0-37.0); MCV 92.6 FL (80.0-97.0); Mean Platelet Volume 10.8 FL (9.5-12.2); Monocytes % (A) 11.6 %; NRBC Per 100 WBC 0 X 10*3/uL (0.00-0.01); Neutrophils # (A) 3.99 X 10*3/uL (1.80-7.70); Platelet Count 194 X 10*3/uL (140-440); RBC 3.94 X 10*6/uL (4.10-5.20); RDW 13.7 % (11.5-14.5); WBC 6.87 X 10*3/uL (4.50-10.00)
[2023-03-16 11:39] LABS: Glucose,Whole Blood 120 mg/dL (70-110)
--- NOTE | 2023-03-16 13:36 | P.PN ---
Subjective This is a pleasant 82 years old female with multiple medical problems including diabetes mellitus. This because of left foot diabetic ulcers with cellulitis and wound culture is growing gram-negative bacilli No other new complaints Put is in a dressing. The normal saline 75 mL/h which can be lowered to 50 mg Objective - Vital Signs Vital signs: Vital Signs Temp 98 F 03/16/23 12:15 Pulse 48 L 03/16/23 12:15 Resp 12 03/16/23 12:15 BP 155/65 03/16/23 12:15 Pulse Ox 100 03/16/23 12:15 FiO2 Intake & Output 03/15/23 03/16/23 03/16/23 18:59 06:59 18:59 Intake Total 200 Balance 200 Intake: Oral 200 Other: Voiding Method Bedside Commode Toilet Toilet Diaper Bedside Commode # Voids 2 9 1 - Exam GENERAL: The patient is alert and oriented x3, not in any acute distress. Well developed, well nourished. HEENT: Pupils are round and equally reacting to light. EOMI. No scleral icterus. No conjunctival pallor. Normocephalic, atraumatic. No pharyngeal erythema. No t hyromegaly. CARDIOVASCULAR: S1 and S2 present. No murmurs, rubs, or gallops. PULMONARY: Chest is clear to auscultation, no wheezing , no crackles. ABDOMEN: Soft, nontender, nondistended, normoactive bowel sounds. No palpable organomegaly. MUSCULOSKELETAL: No joint swelling or deformity. -EXTREMITIES: No cyanosis, clubbing, or pedal edema. Left foot wound with Pitressin in a Place NEUROLOGICAL: Gross neurological examination did not reveal any focal deficits. SKIN: No rashes. no petechiae. - Labs CBC & Chem 7: 03/16/23 06:13 03/16/23 06:13 Labs: Abnormal Lab Results - Last 24 Hours (Table) 03/15/23 03/15/23 03/16/23 Range/Units 17:05 20:20 06:13 RBC (4.10-5.20) X 10*6/uL Hgb (12.0-15.0) d/dL Hct (37.2-46.3) % Eosinophils # (0.04-0.35) X 10*3/uL Carbon Dioxide 19 L (22-30) mmol/L BUN 31 H (7-17) mg/dL Creatinine 1.80 H (0.52-1.04) mg/dL POC Glucose (mg/dL) 143 H 242 H (70-110) mg/dL 03/16/23 03/16/23 Range/Units 06:13 11:38 RBC 3.94 L (4.10-5.20) X 10*6/uL Hgb 11.8 L (12.0-15.0) d/dL Hct 36.5 L (37.2-46.3) % Eosinophils # 0.45 H (0.04-0.35) X 10*3/uL Carbon Dioxide (22-30) mmol/L BUN (7-17) mg/dL Creatinine (0.52-1.04) mg/dL POC Glucose (mg/dL) 120 H (70-110) mg/dL Microbiology - Last 24 Hours (Table) 03/13/23 17:00 Blood Culture - Preliminary Blood 03/13/23 17:00 Blood Culture - Preliminary Blood 03/13/23 18:27 Gram Stain - Preliminary Foot - Left Wound Culture - Preliminary Gram Neg Bacilli Assessment and Plan Assessment: Left foot diabetic ulcers with surrounding cellulitis secondary to gram-negative bacteria status post timing of callus Chronic kidney disease stage III Hypertension Hyperlipidemia Diabetes mellitus Plan: Continue with Zosyn continue with gentle hydration Infectious disease consult Follow-up wound culture Labs and medication were reviewed.. Continue same treatment. Continue with symptomatic treatment. Resume home medication. Monitor labs and vitals. DVT and GI prophylaxis. Further recommendations as per clinical course of the patient DVT prophylaxis: Subcutaneous heparin GI Prophylaxis: Pepcid PT/OT: Pending Prognosis is guarded
--- NOTE | 2023-03-16 15:12 | P.PN ---
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 On today's evaluation that is 03/16/2023, the patient denies any fever or any chills, the patient is breathing comfortably on room air and no need for supplemental oxygen, the patient denies any chest pain or cough, patient denies any nausea/vomiting or diarrhea and no abdominal pain, the patient denies pain to the left foot area. Patient did have white count of 6.87, creatinine is 1.80 ,local cultures growing gram-negative bacilli. Objective - Vital Signs Vital signs: Vital Signs Temp 98.1 F 03/16/23 06:52 Pulse 53 L 03/16/23 08:21 Resp 17 03/16/23 08:21 BP 163/67 03/16/23 06:52 Pulse Ox 100 03/16/23 06:52 FiO2 Intake & Output 03/15/23 03/16/23 03/16/23 18:59 06:59 18:59 Intake Total 200 Balance 200 Intake: Oral 200 Other: Voiding Method Bedside Commode Toilet Toilet Diaper Bedside Commode # Voids 2 9 1 - Exam GENERAL DESCRIPTION: Elderly female lying in bed in no distress RESPIRATORY SYSTEM: Unlabored breathing , decreased breath sounds at bases HEART: S1 S2 regular rate and rhythm ,no loud murmurs ABDOMEN: Soft , no tenderness EXTREMITIES: Left foot wound is currently dressed no drainage on the dressing - Labs CBC & Chem 7: 03/16/23 06:13 03/16/23 06:13 Labs: Abnormal Lab Results - Last 24 Hours (Table) 03/15/23 03/15/23 03/15/23 Range/Units 06:25 06:25 11:21 RBC 3.68 L (4.10-5.20) X 10*6/uL Hgb 10.9 L (12.0-15.0) d/dL Hct 33.9 L (37.2-46.3) % Eosinophils # 0.45 H (0.04-0.35) X 10*3/uL ESR 58 H (0-30) mm/Hr Carbon Dioxide 19.7 L (21.6-31.8) mmol/L BUN 29.8 H (9.0-27.0) mg/dL Creatinine (0.52-1.04) mg/dL Est GFR (CKD-EPI) 35 L (>=60) POC Glucose (mg/dL) 148 H (70-110) mg/dL Total Bilirubin <0.2 L (0.3-1.2) mg/dL C-Reactive Protein 1.70 H (0.00-0.80) mg/dL Albumin 3.1 L (3.8-4.9) d/dL Albumin/Globulin Ratio 1.00 L (1.60-3.17) Ratio 03/15/23 03/15/23 03/16/23 Range/Units 17:05 20:20 06:13 RBC (4.10-5.20) X 10*6/uL Hgb (12.0-15.0) d/dL Hct (37.2-46.3) % Eosinophils # (0.04-0.35) X 10*3/uL ESR (0-30) mm/Hr Carbon Dioxide 19 L (21.6-31.8) mmol/L BUN 31 H (9.0-27.0) mg/dL Creatinine 1.80 H (0.52-1.04) mg/dL Est GFR (CKD-EPI) (>=60) POC Glucose (mg/dL) 143 H 242 H (70-110) mg/dL Total Bilirubin (0.3-1.2) mg/dL C-Reactive Protein (0.00-0.80) mg/dL Albumin (3.8-4.9) d/dL Albumin/Globulin Ratio (1.60-3.17) Ratio Microbiology - Last 24 Hours (Table) 03/13/23 17:00 Blood Culture - Preliminary Blood 03/13/23 17:00 Blood Culture - Preliminary Blood 03/13/23 18:27 Gram Stain - Preliminary Foot - Left Wound Culture - Preliminary Gram Neg Bacilli 03/14/23 11:30 Gram Stain - Preliminary Foot - Left Assessment and Plan (1) Diabetic ulcer of left foot Current Visit: Yes Status: Acute Code(s): E11.621 - TYPE 2 DIABETES MELLITUS WITH FOOT ULCER; L97.529 - NON-PRESSURE CHRONIC ULCER OTH PRT LEFT FOOT W UNSP SEVERITY SNOMED Code(s): 904091286 (2) Diabetic infection of left foot Current Visit: No Status: Acute Code(s): E11.628 - TYPE 2 DIABETES MELLITUS WITH OTHER SKIN COMPLICATIONS; L08.9 - LOCAL INFECTION OF THE SKIN AND SUBCUTANEOUS TISSUE, UNSP SNOMED Code(s): 73624322 Plan: 1patient presented to hospital with the left diabetic foot ulcer possibly infected callus and likely related to the polymicrobial leslee usually associated diabetic foot infection and this patient has previously grown mostly Enterococcus and anaerobes x-rays were negative for any bony changes and the wound did not probe down to the bone at the time of cultures 2-patient with mild insufficiency high risk of nephrotoxicity 3local cultures currently growing gram-negative bacilli ID sensitivities p ending. 4local wound care with a dry Aquacel packing of the wound both left foot plantar and right lateral malleolar wound 5-patient to continue with Zosyn while waiting for the culture to finalize to determine her discharge antibiotics. Dictation was produced using [employer] dictation software. please excuse any grammatical, word or spelling errors. Time with Patient: Less than 30
[2023-03-16 16:10] LABS: Glucose,Whole Blood 148 mg/dL (70-110)
[2023-03-16 20:36] LABS: Glucose,Whole Blood 205 mg/dL (70-110)
[2023-03-16] MEDS: FAMOTIDINE 20 MG/2 ML VIAL IV SCH (21:10)
[2023-03-16] MEDS: HEPARIN SODIUM,PORCINE 5,000 UNIT/ML 1 ML VIAL SQ SCH (21:10)
[2023-03-16] MEDS: INSULIN DETEMIR (LEVEMIR) 100 UNIT/ML SYR SQ SCH (21:12)
[2023-03-17] MEDS: SODIUM CHLORIDE 0.9% 1,000 ML IV SCH ×2 (03:45→14:42)
[2023-03-17] MEDS: PIPERACILLIN-TAZOBACTAM 3.375 GM in SODIUM CHLORIDE 0.9% 100 ML IVPB SCH ×3 (05:55→22:06)
[2023-03-17 06:10] LABS: Glucose,Whole Blood 85 mg/dL (70-110)
[2023-03-17] MEDS: INSULIN ASPART (NovoLOG) 100 UNIT/ML VIAL SQ SCH ×7 (06:14→22:09)
[2023-03-17] MEDS: amLODIPine 5 MG TAB PO SCH (08:32)
[2023-03-17] MEDS: ATORVASTATIN 10 MG TAB PO SCH (08:32)
[2023-03-17] MEDS: FUROSEMIDE 20 MG TAB PO SCH (08:32)
[2023-03-17] MEDS: POTASSIUM CHLORIDE ER 10 MEQ TAB.ER.PRT PO SCH (08:32)
[2023-03-17] MEDS: TAMSULOSIN 0.4 MG CAP.ER.24H PO SCH (08:32)
[2023-03-17] MEDS: hydrALAZINE HCL 25 MG TAB PO SCH ×2 (08:32→22:08)
[2023-03-17] MEDS: FOLIC ACID 1 MG TAB PO SCH (08:32)
[2023-03-17] MEDS: DAPAGLIFLOZIN PROPANEDIOL 5 MG TABLET PO SCH (08:33)
[2023-03-17] MEDS: FAMOTIDINE 20 MG/2 ML VIAL IV SCH ×2 (08:35→22:07)
[2023-03-17] MEDS: HEPARIN SODIUM,PORCINE 5,000 UNIT/ML 1 ML VIAL SQ SCH ×2 (08:36→22:07)
[2023-03-17 11:36] LABS: Glucose,Whole Blood 334 mg/dL (70-110)
--- NOTE | 2023-03-17 13:52 | P.PN ---
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 On today's evaluation that is 03/17/2023, the patient remains to be afebrile, the patient is breathing comfortably on room air and denies any shortness of breath, the patient denies any chest pain or cough, patient denies Abdominal pain and no nausea/vomiting or diarrhea , the patient denies pain to the left foot area. Patient did have white count of 6.87, creatinine is 1.80 as of yesterday ,local cultures growing Pseudomonas and Enterococcus faecalis Objective - Vital Signs Vital signs: Vital Signs Temp 98.7 F 03/17/23 07:32 Pulse 59 L 03/17/23 08:30 Resp 16 03/17/23 07:32 BP 145/65 03/17/23 07:32 Pulse Ox 100 03/17/23 08:30 FiO2 Intake & Output 03/16/23 03/17/23 03/17/23 18:59 06:59 18:59 Intake Total 200 Balance 200 Intake: Oral 200 Other: Voiding Method Toilet # Voids 1 6 2 # Bowel Movements 1 - Exam GENERAL DESCRIPTION: Elderly female lying in bed in no distress RESPIRATORY SYSTEM: Unlabored breathing , decreased breath sounds at bases HEART: S1 S2 regular rate and rhythm ,no loud murmurs ABDOMEN: Soft , no tenderness EXTREMITIES: Left foot wound is currently dressed no drainage on the dressing - Labs CBC & Chem 7: 03/16/23 06:13 03/16/23 06:13 Labs: Abnormal Lab Results - Last 24 Hours (Table) 03/16/23 03/16/23 03/16/23 Range/Units 11:38 16:08 20:34 POC Glucose (mg/dL) 120 H 148 H 205 H (70-110) mg/dL Microbiology - Last 24 Hours (Table) 03/14/23 11:30 Gram Stain - Preliminary Foot - Left Wound Culture - Preliminary Pseudomonas aeruginosa 03/13/23 17:00 Blood Culture - Preliminary Blood 03/13/23 17:00 Blood Culture - Preliminary Blood 03/13/23 18:27 Gram Stain - Final Foot - Left Wound Culture - Final Pseudomonas aeruginosa Enterococcus faecalis Assessment and Plan (1) Diabetic ulcer of left foot Current Visit: Yes Status: Acute Code(s): E11.621 - TYPE 2 DIABETES MELLITUS WITH FOOT ULCER; L97.529 - NON-PRESSURE CHRONIC ULCER OTH PRT LEFT FOOT W UNSP SEVERITY SNOMED Code(s): 942851346 (2) Diabetic infection of left foot Current Visit: No Status: Acute Code(s): E11.628 - TYPE 2 DIABETES MELLITUS WITH OTHER SKIN COMPLICATIONS; L08.9 - LOCAL INFECTION OF THE SKIN AND SUBCUTANEOUS TISSUE, UNSP SNOMED Code(s): 63765177 Plan: 1patient presented to hospital with the left diabetic foot ulcer possibly infected callus and likely related to the polymicrobial leslee usually associated diabetic foot infection and this patient has previously grown mostly Enterococcus and anaerobes x-rays were negative for any bony changes and the wound did not probe down to the bone at the time of cultures 2-patient with mild insufficiency high risk of nephrotoxicity 3local cultures currently growing Pseudomonas aeruginosa and Enterococcus faecalis 4local wound care with a dry Aquacel packing of the wound both left foot plantar and right lateral malleolar wound 5-patient to continue with Zosyn we will reevaluate left foot wound tomorrow time of dressing changes to determine her discharge antibiotics Dictation was produced using [employer] dictation software. please excuse any grammatical, word or spelling errors. Time with Patient: Less than 30
[2023-03-17 16:40] LABS: Glucose,Whole Blood 119 mg/dL (70-110)
[2023-03-17 20:56] LABS: Glucose,Whole Blood 157 mg/dL (70-110)
[2023-03-17] MEDS: INSULIN DETEMIR (LEVEMIR) 100 UNIT/ML SYR SQ SCH (22:08)
[2023-03-18] MEDS: PIPERACILLIN-TAZOBACTAM 3.375 GM in SODIUM CHLORIDE 0.9% 100 ML IVPB SCH ×3 (05:19→20:40)
[2023-03-18 06:03] LABS: Glucose,Whole Blood 84 mg/dL (70-110)
--- NOTE | 2023-03-18 06:06 | P.PN ---
Subjective This is a pleasant 82 years old female with multiple medical problems including diabetes mellitus. This because of left foot diabetic ulcers with cellulitis and wound culture is growing gram-negative bacilli No other new complaints Put is in a dressing. The normal saline 75 mL/h which can be lowered to 50 mg 03/17/2023 Patient still being treated for left infection and cellulitis Wound cultures growing Pseudomonas and Enterococcus faecalis She remains on Zosyn and normal saline 50 mL/h No other new complaints. Heart rate improved and to 60s Objective - Vital Signs Vital signs: Vital Signs Temp 98.0 F 03/17/23 20:00 Pulse 67 03/17/23 20:00 Resp 15 03/17/23 20:00 BP 134/59 03/17/23 20:00 Pulse Ox 99 03/17/23 20:00 FiO2 Intake & Output 03/17/23 03/17/23 03/18/23 06:59 18:59 06:59 Other: # Voids 6 1 # Bowel Movements 1 - Exam GENERAL: The patient is alert and oriented x3, not in any acute distress. Well developed, well nourished. HEENT: Pupils are round and equally reacting to light. EOMI. No scleral icterus. No conjunctival pallor. Normocephalic, atraumatic. No pharyngeal erythema. No thyromegaly. CARDIOVASCULAR: S1 and S2 present. No murmurs, rubs, or gallops. PULMONARY: Chest is clear to auscultation, no wheezing , no crackles. ABDOMEN: Soft, nontender, nondistended, normoactive bowel sounds. No palpable organomegaly. MUSCULOSKELETAL: No joint swelling or deformity. -EXTREMITIES: No cyanosis, clubbing, or pedal edema. Left foot wound with Pitressin in a Place NEUROLOGICAL: Gross neurological examination did not reveal any focal deficits. SKIN: No rashes. no petechiae. - Labs CBC & Chem 7: 03/16/23 06:13 03/16/23 06:13 Labs: Abnormal Lab Results - Last 24 Hours (Table) 03/17/23 03/17/23 03/17/23 Range/Units 11:34 16:33 20:55 POC Glucose (mg/dL) 334 H 119 H 157 H (70-110) mg/dL Microbiology - Last 24 Hours (Table) 03/14/23 11:30 Anaerobic Culture - Preliminary Foot - Left Anaerobic Gm Negative Bacilli 03/14/23 11:30 Gram Stain - Final Foot - Left Wound Culture - Final Pseudomonas aeruginosa Enterococcus faecalis 03/13/23 17:00 Blood Culture - Preliminary Blood 03/13/23 17:00 Blood Culture - Preliminary Blood Assessment and Plan Assessment: Left foot diabetic ulcers with surrounding cellulitis secondary to gram-negative bacteria status post timing of callus Chronic kidney disease stage III Hypertension Hyperlipidemia Diabetes mellitus Plan: Continue with Zosyn continue with gentle hydration Infectious disease consult Follow-up wound culture Labs and medication were reviewed.. Continue same treatment. Continue with symptomatic treatment. Resume home medication. Monitor labs and vitals. DVT and GI prophylaxis. Further recommendations as per clinical course of the patient DVT prophylaxis: Subcutaneous heparin GI Prophylaxis: Pepcid PT/OT: Pending Prognosis is guarded
[2023-03-18] MEDS: INSULIN ASPART (NovoLOG) 100 UNIT/ML VIAL SQ SCH ×7 (06:07→20:24)
[2023-03-18] MEDS ORDERED: NON FORMULARY DRUG (Dulaglutide [Trulicity] 0.75 MG/0.5 ML Each) SQ SCH (09:00)
[2023-03-18] MEDS: HEPARIN SODIUM,PORCINE 5,000 UNIT/ML 1 ML VIAL SQ SCH ×2 (09:31→20:41)
[2023-03-18] MEDS: DAPAGLIFLOZIN PROPANEDIOL 5 MG TABLET PO SCH (09:31)
[2023-03-18] MEDS: FOLIC ACID 1 MG TAB PO SCH (09:32)
[2023-03-18] MEDS: FUROSEMIDE 20 MG TAB PO SCH (09:32)
[2023-03-18] MEDS: ATORVASTATIN 10 MG TAB PO SCH (09:32)
[2023-03-18] MEDS: amLODIPine 5 MG TAB PO SCH (09:32)
[2023-03-18] MEDS: hydrALAZINE HCL 25 MG TAB PO SCH ×2 (09:32→20:41)
[2023-03-18] MEDS: POTASSIUM CHLORIDE ER 10 MEQ TAB.ER.PRT PO SCH (09:32)
[2023-03-18] MEDS: TAMSULOSIN 0.4 MG CAP.ER.24H PO SCH (09:32)
[2023-03-18] MEDS: FAMOTIDINE 20 MG/2 ML VIAL IV SCH ×2 (09:45→21:22)
[2023-03-18] MEDS: SODIUM CHLORIDE 0.9% 1,000 ML IV SCH ×2 (09:48→21:24)
[2023-03-18 11:12] LABS: Glucose,Whole Blood 115 mg/dL (70-110)
--- NOTE | 2023-03-18 12:05 | P.PN ---
Subjective This is a pleasant 82 years old female with multiple medical problems including diabetes mellitus. This because of left foot diabetic ulcers with cellulitis and wound culture is growing gram-negative bacilli No other new complaints Put is in a dressing. The normal saline 75 mL/h which can be lowered to 50 mg 03/17/2023 Patient still being treated for left infection and cellulitis Wound cultures growing Pseudomonas and Enterococcus faecalis She remains on Zosyn and normal saline 50 mL/h No other new complaints. Heart rate improved and to 60s 03/18/2023 Patient still improving slowly and gradually Cultures growing Pseudomonas and Enterococcus faecalis ESR and CRP are mildly elevated Remains on Zosyn and normal saline at 50 mL per hour Possible discharge in 24-48 hours Objective - Vital Signs Vital signs: Vital Signs Temp 97.7 F 03/18/23 07:18 Pulse 51 L 03/18/23 07:18 Resp 17 03/18/23 07:18 BP 146/72 03/18/23 07:18 Pulse Ox 99 03/18/23 07:18 FiO2 Intake & Output 03/17/23 03/18/23 03/18/23 18:59 06:59 18:59 Other: Voiding Method Toilet Toilet # Voids 1 2 1 # Bowel Movements 1 3 - Exam GENERAL: The patient is alert and oriented x3, not in any acute distress. Well developed, well nourished. HEENT: Pupils are round and equally reacting to light. EOMI. No scleral icterus. No conjunctival pallor. Normocephalic, atraumatic. No pharyngeal erythema. No thyromegaly. CARDIOVASCULAR: S1 and S2 present. No murmurs, rubs, or gallops. PULMONARY: Chest is clear to auscultation, no wheezing , no crackles. ABDOMEN: Soft, nontender, nondistended, normoactive bowel sounds. No palpable organomegaly. MUSCULOSKELETAL: No joint swelling or deformity. -EXTREMITIES: No cyanosis, clubbing, or pedal edema. Left foot wound with Pitressin in a Place NEUROLOGICAL: Gross neurological examination did not reveal any focal deficits. SKIN: No rashes. no petechiae. - Labs CBC & Chem 7: 03/16/23 06:13 03/16/23 06:13 Labs: Abnormal Lab Results - Last 24 Hours (Table) 03/17/23 03/17/23 03/18/23 Range/Units 16:33 20:55 11:11 POC Glucose (mg/dL) 119 H 157 H 115 H (70-110) mg/dL Microbiology - Last 24 Hours (Table) 03/14/23 11:30 Anaerobic Culture - Preliminary Foot - Left Anaerobic Gm Negative Bacilli 03/14/23 11:30 Gram Stain - Final Foot - Left Wound Culture - Final Pseudomonas aeruginosa Enterococcus faecalis Assessment and Plan Assessment: Left foot diabetic ulcers with surrounding cellulitis secondary to gram-negative bacteria status post timing of callus Chronic kidney disease stage III Hypertension Hyperlipidemia Diabetes mellitus Plan: Continue with Zosyn continue with gentle hydration Infectious disease consult Follow-up wound culture Labs and medication were reviewed.. Continue same treatment. Continue with symptomatic treatment. Resume home medication. Monitor labs and vitals. DVT and GI prophylaxis. Further recommendations as per clinical course of the patient DVT prophylaxis: Subcutaneous heparin GI Prophylaxis: Pepcid PT/OT: Pending Prognosis is guarded
--- NOTE | 2023-03-18 16:00 | P.PN ---
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 On today's evaluation that is 03/18/2023, the patient denies any fever or chills, the patient is breathing comfortably on room air and no need for supplemental oxygen, the patient denies any chest pain or cough, patient denies nausea/vomiting or diarrhea and no abdominal pain the patient denies pain to the left foot area. Patient did have white count of 6.87, creatinine is 1.80 as of 03/16/2023 ,local cultures growing Pseudomonas and Enterococcus faecalis Objective - Vital Signs Vital signs: Vital Signs Temp 97.7 F 03/18/23 07:18 Pulse 51 L 03/18/23 07:18 Resp 17 03/18/23 07:18 BP 146/72 03/18/23 07:18 Pulse Ox 99 03/18/23 07:18 FiO2 Intake & Output 03/17/23 03/18/23 03/18/23 18:59 06:59 18:59 Other: Voiding Method Toilet Toilet # Voids 1 2 1 # Bowel Movements 1 3 - Exam GENERAL DESCRIPTION: Elderly female lying in bed in no distress RESPIRATORY SYSTEM: Unlabored breathing , decreased breath sounds at bases HEART: S1 S2 regular rate and rhythm ,no loud murmurs ABDOMEN: Soft , no tenderness EXTREMITIES: Left foot plantar wound base is no soft tissue minimal surrounding callus no foul-smelling drainage - Labs CBC & Chem 7: 03/16/23 06:13 03/16/23 06:13 Labs: Abnormal Lab Results - Last 24 Hours (Table) 03/17/23 03/17/23 03/18/23 Range/Units 16:33 20:55 11:11 POC Glucose (mg/dL) 119 H 157 H 115 H (70-110) mg/dL Microbiology - Last 24 Hours (Table) 03/14/23 11:30 Anaerobic Culture - Preliminary Foot - Left Anaerobic Gm Negative Bacilli 03/14/23 11:30 Gram Stain - Final Foot - Left Wound Culture - Final Pseudomonas aeruginosa Enterococcus faecalis Assessment and Plan (1) Diabetic ulcer of left foot Current Visit: Yes Status: Acute Code(s): E11.621 - TYPE 2 DIABETES MELLITUS WITH FOOT ULCER; L97.529 - NON-PRESSURE CHRONIC ULCER OTH PRT LEFT FOOT W UNSP SEVERITY SNOMED Code(s): 236648955 (2) Diabetic infection of left foot Current Visit: No Status: Acute Code(s): E11.628 - TYPE 2 DIABETES MELLITUS WITH OTHER SKIN COMPLICATIONS; L08.9 - LOCAL INFECTION OF THE SKIN AND SUBCUTANEOUS TISSUE, UNSP SNOMED Code(s): 22900944 Plan: 1patient presented to hospital with the left diabetic foot ulcer possibly infected callus and likely related to the polymicrobial leslee usually associated diabetic foot infection and this patient has previously grown mostly Enterococcus and anaerobes x-rays were negative for any bony changes and the wound did not probe down to the bone at the time of cultures 2-patient with mild insufficiency high risk of nephrotoxicity 3local cultures currently growing Pseudomonas aeruginosa and Enterococcus faecalis 4local wound care with a dry Aquacel packing of the wound both left foot p lantar and right lateral malleolar wound 5-patient to continue with Zosyn however will be able to finish therapy with oral Augmentin and Cipro, and no need for PICC line or outpatient IV antibiotics Dictation was produced using [employer] dictation software. please excuse any grammatical, word or spelling errors. Time with Patient: Less than 30
[2023-03-18 16:22] LABS: Glucose,Whole Blood 90 mg/dL (70-110)
[2023-03-18 20:17] LABS: Glucose,Whole Blood 132 mg/dL (70-110)
[2023-03-18] MEDS: INSULIN DETEMIR (LEVEMIR) 100 UNIT/ML SYR SQ SCH (20:41)
[2023-03-19] MEDS: PIPERACILLIN-TAZOBACTAM 3.375 GM in SODIUM CHLORIDE 0.9% 100 ML IVPB SCH ×2 (05:13→12:09)
[2023-03-19 05:53] LABS: Glucose,Whole Blood 92 mg/dL (70-110)
[2023-03-19] MEDS: INSULIN ASPART (NovoLOG) 100 UNIT/ML VIAL SQ SCH ×4 (05:56→12:09)
[2023-03-19 08:22] VITALS: RESP 17
[2023-03-19] MEDS: HEPARIN SODIUM,PORCINE 5,000 UNIT/ML 1 ML VIAL SQ SCH (09:14)
[2023-03-19] MEDS: TAMSULOSIN 0.4 MG CAP.ER.24H PO SCH (09:15)
[2023-03-19] MEDS: FOLIC ACID 1 MG TAB PO SCH (09:15)
[2023-03-19] MEDS: DAPAGLIFLOZIN PROPANEDIOL 5 MG TABLET PO SCH (09:15)
[2023-03-19] MEDS: amLODIPine 5 MG TAB PO SCH (09:15)
[2023-03-19] MEDS: ATORVASTATIN 10 MG TAB PO SCH (09:15)
[2023-03-19] MEDS: FUROSEMIDE 20 MG TAB PO SCH (09:15)
[2023-03-19] MEDS: hydrALAZINE HCL 25 MG TAB PO SCH (09:15)
[2023-03-19] MEDS: POTASSIUM CHLORIDE ER 10 MEQ TAB.ER.PRT PO SCH (09:15)
[2023-03-19] MEDS: SODIUM CHLORIDE 0.9% 1,000 ML IV SCH (09:17)
[2023-03-19] MEDS: FAMOTIDINE 20 MG/2 ML VIAL IV SCH (09:20)
[2023-03-19 11:57] LABS: Glucose,Whole Blood 161 mg/dL (70-110)
--- NOTE | 2023-03-19 12:56 | P.PN ---
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 On today's evaluation that is 03/19/2023, the patient continues to be afebrile , the patient is breathing comfortably on room air and denies any shortness of breath, the patient denies any chest pain or cough, patient denies abdominal pain and no nausea/vomiting or diarrhea, the patient denies pain to the left foot area. Patient did have white count of 6.87, creatinine is 1.80 as of 03/16/2023 no labs today ,local cultures growing Pseudomonas and Enterococcus faecalis Objective - Vital Signs Vital signs: Vital Signs Temp 98.3 F 03/19/23 06:57 Pulse 60 03/19/23 06:57 Resp 17 03/19/23 06:57 BP 136/59 03/19/23 06:57 Pulse Ox 99 03/19/23 06:57 FiO2 Intake & Output 03/18/23 03/19/23 03/19/23 18:59 06:59 18:59 Intake Total 118 Balance 118 Intake: Oral 118 Other: Voiding Method Toilet Toilet # Voids 4 3 # Bowel Movements 3 - Exam GENERAL DESCRIPTION: Elderly female lying in bed in no distress RESPIRATORY SYSTEM: Unlabored breathing , decreased breath sounds at bases HEART: S1 S2 regular rate and rhythm ,no loud murmurs ABDOMEN: Soft , no tenderness EXTREMITIES: Left foot plantar wound is dressed no drainage on the dressing - Labs CBC & Chem 7: 03/16/23 06:13 03/16/23 06:13 Labs: Abnormal Lab Results - Last 24 Hours (Table) 03/18/23 03/18/23 Range/Units 11:11 20:16 POC Glucose (mg/dL) 115 H 132 H (70-110) mg/dL Microbiology - Last 24 Hours (Table) 03/13/23 17:00 Blood Culture - Final Blood 03/13/23 17:00 Blood Culture - Final Blood 03/14/23 11:30 Anaerobic Culture - Final Foot - Left Anaerobic Gm Negative Bacilli Anaerobic Gm Negative Bacilli#2 Anaerobic Gm Negative Bacilli#3 Assessment and Plan (1) Diabetic ulcer of left foot Current Visit: Yes Status: Acute Code(s): E11.621 - TYPE 2 DIABETES MELLITUS WITH FOOT ULCER; L97.529 - NON-PRESSURE CHRONIC ULCER OTH PRT LEFT FOOT W UNSP SEVERITY SNOMED Code(s): 129119641 (2) Diabetic infection of left foot Current Visit: No Status: Acute Code(s): E11.628 - TYPE 2 DIABETES MELLITUS WITH OTHER SKIN COMPLICATIONS; L08.9 - LOCAL INFECTION OF THE SKIN AND SUBCUTANEOUS TISSUE, UNSP SNOMED Code(s): 61832936 Plan: 1patient presented to hospital with the left diabetic foot ulcer possibly infected callus and likely related to the polymicrobial leslee usually associated diabetic foot infection and this patient has previously grown mostly Entero coccus and anaerobes x-rays were negative for any bony changes and the wound did not probe down to the bone at the time of cultures 2-patient with mild insufficiency high risk of nephrotoxicity 3local cultures currently growing Pseudomonas aeruginosa and Enterococcus faecalis 4local wound care with a dry Aquacel packing of the wound both left foot plantar and right lateral malleolar wound 5-patient will finish therapy with oral Augmentin and Cipro, prescription was sent to the pharmacy care was discussed with the daughter on the phone and close outpatient follow-up Dictation was produced using [employer] dictation software. please excuse any grammatical, word or spelling errors. Time with Patient: Less than 30
[2023-03-19] MEDS ORDERED: RIVAROXABAN 15 MG TAB PO SCH (14:00)
[2023-03-19 14:48] VITALS: BP 148/65; PULSE 62; TEMP 98
--- NOTE | 2023-03-20 06:01 | P.DS ---
Providers Date of admission: 03/15/23 08:48 Attending physician: Faviola Robert Consults: 03/13/23 18:13 Consult Physician Routine Consulting Provider: Jamila Campos Consult Reason/Comments: diabetic left foot ulcer Do you want consulting provider notified?: Yes Primary care physician: Megha Oneal Hospital Course: Diagnoses: Left foot diabetic ulcers with surrounding cellulitis secondary to Pseudomonas and Enterococcus faecalis Chronic kidney disease stage III Hypertension Hyperlipidemia Diabetes mellitus Chronic atrial fibrillation on as a result of Hospital course: This is a pleasant 82 years old female with multiple medical problems including diabetes mellitus. This because of left foot diabetic ulcers with cellulitis and wound culture is growing Pseudomonas and Enterococcus faecalis At the table and following the patient closely. Patient was treated with IV Zosyn and she showed interval improvement Patient was switched to oral antibiotic of Cipro and Augmentin 2 weeks vascular surgery team evaluated the patient and they did treatment of her callus in her left foot but did not need I&D. Patient denies any other new complaints. Patient was cleared for discharge by ID team. Problems and management plan were discussed with the patient and he verbalized understanding and acceptance Patient was found stable and can be discharged home in guarded prognosis however he needs follow-up as an outpatient. Patient was instructed to follow up with PCPDr. Prakash one week and patient agrees Patient was instructed to follow up with Dr. Campos in 1 week after discharge and Dr. Don in 1-2 weeks after discharge and she agrees to call and make her own appointment Physical exam Gen: patient is a AAOx3, no distress CVS: S1-S2, RRR, no murmur Lungs: B/L CTA, no wheezing Abdomen: soft, no distention, no tenderness, positive bowel sounds -Extremity: no leg edema or induration. Left leg wound is healing with a dressing in place Time spent more than 35 minutes Patient Condition at Discharge: Good Plan - Discharge Summary Discharge Rx Participant: Yes New Discharge Prescriptions: New Amoxic-Pot Clav 875-125Mg [Augmentin 875-125] 1 tab PO Q12HR 14 Days #28 tab Ciprofloxacin HCl [Cipro] 500 mg PO BID 14 Days #28 tab Continue Rivaroxaban [Xarelto] 15 mg PO DAILY Tamsulosin HCl [Flomax] 0.4 mg PO DAILY Folic Acid 1 mg PO DAILY amLODIPine [Norvasc] 5 mg PO DAILY 30 Days #30 tab Furosemide [Lasix] 20 mg PO DAILY Simvastatin [Zocor] 10 mg PO DAILY Insulin Aspart [NovoLOG Flexpen] See Protocol SQ TID-W/MEALS PRN PRN Reason: HIGH BLOOD SUGAR Amoxicillin 250 mg PO HS Potassium Chloride ER [K-Dur 10] 10 meq PO DAILY hydrALAZINE HCL [Apresoline] 25 mg PO BID 30 Days #60 tab Empagliflozin [Jardiance] 10 mg PO DAILY Insulin Glargine,Hum.rec.anlog [Lantus Solostar Pen] 16 units SQ HS Insulin Aspart [NovoLOG Flexpen] 6 units SQ TID-W/MEALS Acetaminophen Tab [Tylenol] 650 mg PO Q6HR PRN tab PRN Reason: Mild Pain Or Fever > 100.5 Dulaglutide [Trulicity] 0.75 mg SQ THOMSON Discharge Medication List Rivaroxaban [Xarelto] 15 mg PO DAILY 06/28/21 [History] Folic Acid 1 mg PO DAILY 02/20/22 [History] Potassium Chloride ER [K-Dur 10] 10 meq PO DAILY 02/20/22 [History] Tamsulosin HCl [Flomax] 0.4 mg PO DAILY 02/20/22 [History] amLODIPine [Norvasc] 5 mg PO DAILY 30 Days #30 tab 02/23/22 [Rx] hydrALAZINE HCL [Apresoline] 25 mg PO BID 30 Days #60 tab 02/23/22 [Rx] Empagliflozin [Jardiance] 10 mg PO DAILY 04/26/22 [History] Furosemide [Lasix] 20 mg PO DAILY 04/26/22 [History] Simvastatin [Zocor] 10 mg PO DAILY 04/26/22 [History] Insulin Aspart [NovoLOG Flexpen] 6 units SQ TID-W/MEALS 11/07/22 [History] Insulin Aspart [NovoLOG Flexpen] See Protocol SQ TID-W/MEALS PRN 11/07/22 [History] Insulin Glargine,Hum.rec.anlog [Lantus Solostar Pen] 16 units SQ HS 11/07/22 [History] Acetaminophen Tab [Tylenol] 650 mg PO Q6HR PRN tab 11/09/22 [Rx] Amoxicillin 250 mg PO HS 03/13/23 [History] Dulaglutide [Trulicity] 0.75 mg SQ THOMSON 03/13/23 [History] Amoxic-Pot Clav 875-125Mg [Augmentin 875-125] 1 tab PO Q12HR 14 Days #28 tab 03/19/23 [Rx] Ciprofloxacin HCl [Cipro] 500 mg PO BID 14 Days #28 tab 03/19/23 [Rx] Follow up Appointment(s)/Referral(s): Jenniffer Don DO [STAFF PHYSICIAN] - 1 Week Megha Oneal DO [Primary Care Provider] - 1-2 days [facility], [NON-STAFF] - As Needed Jamila Campos MD [STAFF PHYSICIAN] - 1 Week Patient Instructions/Handouts: Diabetic Foot Ulcers (DC) Activity/Diet/Wound Care/Special Instructions: Heart healthy diet Activity is restricted till you see your doctor Discharge Disposition: HOME SELF-CARE
== END 2023-03-19 14:45 | disposition home or self-care (01) | DRG 623 ==
LOC: EC 16:02 → 4SSUR 18:12 → OBSVTOIN 03-15 08:48
PROVIDERS: ADMIT Hospitalist; ATTEND Hospitalist
PROC: 0JBR0ZZ Excision of Left Foot Subcutaneous Tissue and Fascia, Open Approach (ICD-10-PCS; principal; 2023-03-15)
DX: E11.621 Type 2 diabetes mellitus with foot ulcer (principal); I13.0 Hypertensive heart and chronic kidney disease with heart failure and stage 1 through stage 4 chronic kidney disease, or unspecified chronic kidney disease; L97.319 Non-pressure chronic ulcer of right ankle with unspecified severity; E11.628 Type 2 diabetes mellitus with other skin complications; I50.9 Heart failure, unspecified; E11.22 Type 2 diabetes mellitus with diabetic chronic kidney disease; N18.30 Chronic kidney disease, stage 3 unspecified; B95.2 Enterococcus as the cause of diseases classified elsewhere; B96.5 Pseudomonas (aeruginosa) (mallei) (pseudomallei) as the cause of diseases classified elsewhere; I48.91 Unspecified atrial fibrillation; E78.5 Hyperlipidemia, unspecified; E11.42 Type 2 diabetes mellitus with diabetic polyneuropathy; E11.622 Type 2 diabetes mellitus with other skin ulcer; L97.529 Non-pressure chronic ulcer of other part of left foot with unspecified severity; Z79.01 Long term (current) use of anticoagulants; Z79.84 Long term (current) use of oral hypoglycemic drugs; Z79.4 Long term (current) use of insulin; Z87.440 Personal history of urinary (tract) infections; Z89.422 Acquired absence of other left toe(s); Z89.421 Acquired absence of other right toe(s); Z90.49 Acquired absence of other specified parts of digestive tract; Z79.82 Long term (current) use of aspirin
CPT/HCPCS: 36415; 71045; 80048; 80053; 80202; 82565; 83605; 85025; 85610; 85652; 85730; 86140; 87040; 87070; 87075; 87077; 87186; 87205; 96365; 96366; 96367; 99284

== ENCOUNTER 2023-04-11 10:22 | Emergency (ER) | payer MEDICARE ==
[2023-04-11 10:50] VITALS: RESP 18; TEMP 98.3
--- NOTE | 2023-04-11 11:30 | ED ---
General Adult HPI - General Chief complaint: Abdominal Pain Stated complaint: PAIN Time Seen by Provider: 04/11/23 11:01 Source: patient, EMS Mode of arrival: EMS Limitations: no limitations - History of Present Illness Initial comments: Dictation was produced using [employer] dictation software. please excuse any grammatical, word or spelling errors. Chief Complaint: 82-year-old female multiple complaints History of Present Illness: Is 82-year-old feel presents muscle complaints her main complaint is abdominal pain. States that she's been having it since 2 AM this morning. Has a history of diverticulitis. States the pain is in her left lower quadrant. Nonradiating. Patient also has developed a rash to her left lower flank. Patient has no history of shingles. Patient stated complaint is cough and congestion. Denies any fever or constitutional symptoms. No nausea or vomiting. The ROS documented in this emergency department record has been reviewed and confirmed by me. Those systems with pertinent positive or negative responses have been documented in the HPI. All other systems are other negative and/or noncontributory. - Related Data Home Medications Medication Instructions Recorded Confirmed Rivaroxaban [Xarelto] 15 mg PO DAILY 06/28/21 03/13/23 Folic Acid 1 mg PO DAILY 02/20/22 03/13/23 Potassium Chloride ER [K-Dur 10] 10 meq PO DAILY 02/20/22 03/13/23 Tamsulosin HCl [Flomax] 0.4 mg PO DAILY 02/20/22 03/13/23 Empagliflozin [Jardiance] 10 mg PO DAILY 04/26/22 03/13/23 Furosemide [Lasix] 20 mg PO DAILY 04/26/22 03/13/23 Simvastatin [Zocor] 10 mg PO DAILY 04/26/22 03/13/23 Insulin Aspart [NovoLOG Flexpen] 6 units SQ TID-W/MEALS 11/07/22 03/13/23 Insulin Aspart [NovoLOG Flexpen] See Protocol SQ TID-W/MEALS PRN 11/07/22 03/13/23 Insulin Glargine,Hum.rec.anlog 16 units SQ HS 11/07/22 03/13/23 [Lantus Solostar Pen] Amoxicillin 250 mg PO HS 03/13/23 03/13/23 Dulaglutide [Trulicity] 0.75 mg SQ THOMSON 03/13/23 03/13/23 Previous Rx's Medication Instructions Recorded amLODIPine [Norvasc] 5 mg PO DAILY 30 Days #30 tab 02/23/22 hydrALAZINE HCL [Apresoline] 25 mg PO BID 30 Days #60 tab 02/23/22 Acetaminophen Tab [Tylenol] 650 mg PO Q6HR PRN tab 11/09/22 Amoxic-Pot Clav 875-125Mg 1 tab PO Q12HR 14 Days #28 tab 03/19/23 [Augmentin 875-125] Ciprofloxacin HCl [Cipro] 500 mg PO BID 14 Days #28 tab 03/19/23 Amoxic-Pot Clav 875-125Mg 1 tab PO Q8H 5 Days #15 tab 04/11/23 [Augmentin 875-125] valACYclovir HCL [Valacyclovir] 1,000 mg PO DAILY 7 Days tab 04/11/23 Allergies Allergy/AdvReac Type Severity Reaction Status Date / Time aspirin Allergy Anaphylaxis Verified 04/11/23 10:49 Review of Systems ROS Statement: Those systems with pertinent positive or pertinent negative responses have been documented in the HPI. ROS Other: All systems not noted in ROS Statement are negative. Past Medical History Past Medical History: Atrial Fibrillation, Heart Failure, Diabetes Mellitus, Hypertension, Renal Disease Additional Past Medical History / Comment(s): wound rt foot and rt chin, wound to left pinkey, bilateral toes amputation, kidney failure, CHF, "slight stroke" 10years ago, History of Any Multi-Drug Resistant Organisms: None Reported Past Surgical History: Cholecystectomy Additional Past Surgical History / Comment(s): left foot all toes amputated 2021; hematoma removal abdomen Past Anesthesia/Blood Transfusion Reactions: No Reported Reaction Past Psychological History: No Psychological Hx Reported Smoking Status: Never smoker Past Alcohol Use History: None Reported Past Drug Use History: None Reported - Past Family History Sister(s) Family Medical History: Cancer Brother(s) Family Medical History: Cancer General Exam - General Exam Comments Initial Comments: PHYSICAL EXAM: General Impression: Alert and oriented x3, not in acute distress HEENT: Normocephalic atraumatic, extra-ocular movements intact, pupils equal and reactive to light bilaterally, mucous membranes moist. Cardiovascular: Heart regular rate and rhythm Chest: Able to complete full sentences, no retractions, no tachypnea Abdomen: abdomen soft, palpatory tenderness to the left lower quadrant, non- distended, no organomegaly Musculoskeletal: Pulses present and equal in all extremities, no peripheral edema Motor: no focal deficits noted Neurological: CN II-XII grossly intact, no focal motor or sensory deficits noted Skin: Bullous rash to the left flank and a left lower dermatomal distribution Psych: Normal affect and mood Limitations: no limitations Course Vital Signs 04/11/23 10:46 Temperature 98.3 F Pulse Rate 64 Respiratory 18 Rate Blood Pressure 148/75 O2 Sat by Pulse 98 Oximetry EKG Findings - EKG Comments: EKG Findings:: My EKG interpretation: Ventricular rate 66, A. fib, QRS 133, QTc 467. no QTC prolongation, no ST or T-wave changes noted. Overall, this EKG is unremarkable Medical Decision Making - Medical Decision Making Was pt. sent in by a medical professional or institution (, PA, WEIGHT LOSS PHYSICIAN, urgent c are, hospital, or alf...) When possible be specific @ -No Did you speak to anyone other than the patient for history (EMS, parent, family, police, friend...)? What history was obtained from this source @ -Discussed with family members at the bedside as described above Did you review nursing and triage notes (agree or disagree)? Why? @ -I reviewed and agree with nursing and triage notes Were old charts reviewed (outside hosp., previous admission, EMS record, old EKG, old radiological studies, urgent care reports/EKG's, alf records)? Report findings @ -No old charts were reviewed Differential Diagnosis (chest pain, altered mental status, abdominal pain women, abdominal pain men, vaginal bleeding, musculoskeletal, weakness, fever, dyspnea, syncope, headache, dizziness, GI bleed, back pain, seizure, CVA, palpatations, mental health)? @ -Differential Abdominal Pain Women: Appendicitis, Cholecystitis, diverticulosis, ischemic bowel, pancreatitis, hepatitis, UTI, gastroenteritis, AAA, incarcerated hernia, bowel obstruction, constipation, inflammatory bowel, hepatitis, peptic ulcer disease, splenic infarction, perforated viscus, vulvitis, ovarian torsion, PID, kidney stone, placenta abruption, this is not meant to be an all-inclusive list EKG interpreted by me (3pts min.). @ -None done X-rays interpreted by me (1pt min.). @ -Chest x-ray shows no acute processes. CT interpreted by me (1pt min.). @ -CT of the abdomen and pelvis without contrast shows diverticulitis U/S interpreted by me (1pt. min.). @ -None done What testing was considered but not performed or refused? (CT, X-rays, U/S, labs)? Why? @ -None What meds were considered but not given or refused? Why? @ -None Did you discuss the management of the patient with other professionals (professionals i.e. , PA, WEIGHT LOSS PHYSICIAN, lab, RT, psych nurse, social economist, can vacuum tester, teacher, unclaimed property officer, case checker)? Give summary @ -No Was smoking cessation discussed for >3mins.? @ -No Was critical care preformed (if so, how long)? @ -No Were there social determinants of health that impacted care today? How? (Homelessness, low income, unemployed, alcoholism, drug addiction, gonzalez sportation, low edu. Level, literacy, decrease access to med. care, correction, rehab)? @ -No Was there de-escalation of care discussed even if they declined (Discuss DNR or withdrawal of care, Hospice)? DNR status @ -No What co-morbidities impacted this encounter? (DM, HTN, Smoking, COPD, CAD, Cancer, CVA, ARF, Chemo, Hep., AIDS, mental health diagnosis, sleep apnea, morbid obesity)? @ -None Was patient admitted / discharged? Hospital course, mention meds given and route, prescriptions, significant lab abnormalities, going to OR and other pertinent info. @ -82-year-old female presents with left lower quadrant pain along with left dermatomal flank rash. Vital signs upon arrival are within acceptable limits. Laboratory evaluation shows no leukocytosis. CBC metabolic panel within acceptable limits. Viral testing is negative for influenza, RSV and COVID-19. X-rays nonacute. Computed tomography scan of the abdomen shows unconjugated diverticulitis. Patient notified of these results patient is agreeable for discharge with antibiotics to treat diverticulitis along with antivirals to treat shingles. She is advised to follow closely with her primary care doctor. Undiagnosed new problem with uncertain prognosis? @ -No Drug Therapy requiring intensive monitoring for toxicity (Heparin, Nitro, Insul in, Cardizem)? @ -No Were any procedures done? @ -No Diagnosis/symptom? Acute, or Chronic, or Acute on Chronic? Uncomplicated (without systemic symptoms) or Complicated (systemic symptoms)? @ -1. Diverticulitis, 2. Shingles Side effects of treatment? @ -No Exacerbation, Progression, or Severe Exacerbation? @ -No Poses a threat to life or bodily function? How? (Chest pain, [place], [place], pneumonia, PE, COPD, DKA, ARF, appy, cholecystitis, CVA, Diverticulitis, Homicidal, Suicidal, threat to staff... and all critical care pts) @ -yes - Lab Data Result diagrams: 04/11/23 11:32 04/11/23 11:32 Lab Results 04/11/23 04/11/23 04/11/23 Range/Units 11:32 11:32 11:32 WBC 6.1 (3.8-10.6) k/uL RBC 4.23 (3.80-5.40) m/uL Hgb 12.9 (11.4-16.0) gm/dL Hct 37.9 (34.0-46.0) % MCV 89.5 (80.0-100.0) fL MCH 30.4 (25.0-35.0) pg MCHC 34.0 (31.0-37.0) g/dL RDW 13.7 (11.5-15.5) % Plt Count 157 (150-450) k/uL MPV 8.0 Neutrophils % (Manual) 55 % Lymphocytes % (Manual) 24 % Monocytes % (Manual) 13 % Eosinophils % (Manual) 8 % Neutrophils # (Manual) 3.36 (1.3-7.7) k/uL Lymphocytes # (Manual) 1.46 (1.0-4.8) k/uL Monocytes # (Manual) 0.79 (0-1.0) k/uL Eosinophils # (Manual) 0.49 (0-0.7) k/uL Nucleated RBCs 0 (0-0) /100 WBC Manual Slide Review Performed Sodium 132 L (137-145) mmol/L Potassium 4.4 (3.5-5.1) mmol/L Chloride 98 (98-107) mmol/L Carbon Dioxide 23 (22-30) mmol/L Anion Gap 11 mmol/L BUN 34 H (7-17) mg/dL Creatinine 1.67 H (0.52-1.04) mg/dL Est GFR (CKD-EPI)AfAm 33 (>60 ml/min/1.73 sqM) Est GFR (CKD-EPI)NonAf 29 (>60 ml/min/1.73 sqM) Glucose 158 H (74-99) mg/dL Plasma Lactic Acid Nolan 0.9 (0.7-2.0) mmol/L Calcium 9.2 (8.4-10.2) mg/dL Total Bilirubin 0.6 (0.2-1.3) mg/dL AST 29 (14-36) U/L ALT 22 (4-34) U/L Alkaline Phosphatase 109 (38-126) U/L Total Protein 7.2 (6.3-8.2) g/dL Albumin 3.7 (3.5-5.0) g/dL Lipase 55 (23-300) U/L Influenza Type A (PCR) (Not Detectd) Influenza Type B (PCR) (Not Detectd) RSV (PCR) (Not Detectd) SARS-CoV-2 (PCR) (Not Detectd) 04/11/23 Range/Units 11:32 WBC (3.8-10.6) k/uL RBC (3.80-5.40) m/uL Hgb (11.4-16.0) gm/dL Hct (34.0-46.0) % MCV (80.0-100.0) fL MCH (25.0-35.0) pg MCHC (31.0-37.0) g/dL RDW (11.5-15.5) % Plt Count (150-450) k/uL MPV Neutrophils % (Manual) % Lymphocytes % (Manual) % Monocytes % (Manual) % Eosinophils % (Manual) % Neutrophils # (Manual) (1.3-7.7) k/uL Lymphocytes # (Manual) (1.0-4.8) k/uL Monocytes # (Manual) (0-1.0) k/uL Eosinophils # (Manual) (0-0.7) k/uL Nucleated RBCs (0-0) /100 WBC Manual Slide Review Sodium (137-145) mmol/L Potassium (3.5-5.1) mmol/L Chloride (98-107) mmol/L Carbon Dioxide (22-30) mmol/L Anion Gap mmol/L BUN (7-17) mg/dL Creatinine (0.52-1.04) mg/dL Est GFR (CKD-EPI)AfAm (>60 ml/min/1.73 sqM) Est GFR (CKD-EPI)NonAf (>60 ml/min/1.73 sqM) Glucose (74-99) mg/dL Plasma Lactic Acid Nolan (0.7-2.0) mmol/L Calcium (8.4-10.2) mg/dL Total Bilirubin (0.2-1.3) mg/dL AST (14-36) U/L ALT (4-34) U/L Alkaline Phosphatase (38-126) U/L Total Protein (6.3-8.2) g/dL Albumin (3.5-5.0) g/dL Lipase (23-300) U/L Influenza Type A (PCR) Not Detected (Not Detectd) Influenza Type B (PCR) Not Detected (Not Detectd) RSV (PCR) Not Detected (Not Detectd) SARS-CoV-2 (PCR) Not Detected (Not Detectd) Disposition Clinical Impression: Acute diverticulitis, Shingles Disposition: HOME SELF-CARE Condition: Fair Instructions (If sedation given, give patient instructions): Diverticulitis (ED), Shingles (ED) Prescriptions: Amoxic-Pot Clav 875-125Mg [Augmentin 875-125] 1 tab PO Q8H 5 Days #15 tab valACYclovir HCL [Valacyclovir] 1,000 mg PO DAILY 7 Days tab Is patient prescribed a controlled substance at d/c from ED?: No Referrals: Megha Oneal DO [Primary Care Provider] - 1-2 days Time of Disposition: 13:48
[2023-04-11 11:58] LABS: HCT 37.9 % (34.0-46.0); HGB 12.9 gm/dL (11.4-16.0); MCH 30.4 pg (25.0-35.0); MCV 89.5 fL (80.0-100.0); Platelet Count 157 k/uL (150-450); RBC 4.23 m/uL (3.80-5.40); RDW 13.7 % (11.5-15.5); WBC 6.1 k/uL (3.8-10.6)
[2023-04-11 12:06] LABS: ALT 22 U/L (4-34); AST 29 U/L (14-36); African American GFR (CKD) 33 (>60 ml/min/1.73 sqM); Albumin 3.7 g/dL (3.5-5.0); Alkaline Phosphatase 109 U/L (38-126); Anion Gap 11 mmol/L; Blood Urea Nitrogen 34 mg/dL (7-17); Calcium 9.2 mg/dL (8.4-10.2); Carbon Dioxide 23 mmol/L (22-30); Chloride 98 mmol/L (98-107); Glucose 158 mg/dL (74-99); Lipase 55 U/L (23-300); Non-African American GFR(CKD) 29 (>60 ml/min/1.73 sqM); Potassium 4.4 mmol/L (3.5-5.1); Sodium 132 mmol/L (137-145); Total Bilirubin 0.6 mg/dL (0.2-1.3); Total Protein 7.2 g/dL (6.3-8.2)
--- NOTE | 2023-04-11 13:25 | XR ---
EXAMINATION TYPE: XR chest 2V DATE OF EXAM: 04/11/2023 1:20 PM CLINICAL INDICATION:Female, 82 years old with history of cough; [facility] COMPARISON: Chest radiographs from 03/15/2023. TECHNIQUE: XR chest 2V Frontal and lateral views of the chest. FINDINGS: Lungs/Pleura: There is no evidence of pleural effusion, focal consolidation, or pneumothorax. Pulmonary vascularity: Unremarkable. Heart/mediastinum: Cardiomediastinal silhouette is unremarkable. Musculoskeletal: No acute osseous pathology. IMPRESSION: No acute cardiopulmonary disease/process.
--- NOTE | 2023-04-11 13:28 | CT ---
EXAMINATION TYPE: CT abdomen pelvis wo con CT DLP: 517 mGycm, Automated exposure control for dose reduction was used. DATE OF EXAM: 04/11/2023 1:15 PM COMPARISON: None. CLINICAL INDICATION:Female, 82 years old with history of suspect diverticulitis; LLQ pain TECHNIQUE: Axial CT of the ;CT abdomen pelvis wo con;Sagittal and coronal reformats were created on a separate workstation. Contrast used: mL of , (none if empty) Oral contrast used: without Oral Contrast (none if empty) FINDINGS: LOWER CHEST: Unremarkable ABDOMEN LIVER: Unremarkable GALLBLADDER AND BILE DUCTS: Unremarkable. PANCREAS: Unremarkable. SPLEEN: Unremarkable. ADRENAL GLANDS: Unremarkable. KIDNEYS AND URETERS: No evidence of hydronephrosis or renal calculus. The ureters are unremarkable. PELVIS BLADDER: Unremarkable REPRODUCTIVE: Unremarkable. ABDOMEN & PELVIS STOMACH AND BOWEL: No evidence of bowel obstruction. Scattered colonic diverticula. PERITONEUM/RETROPERITONEUM: No evidence of pneumoperitoneum or free fluid. VASCULATURE: Moderate atherosclerotic calcifications are present throughout the abdominal aorta and i ts branches. No evidence of aortic aneurysm. MUSCULOSKELETAL: No acute osseous abnormalities. Moderate disc degeneration changes are present throu ghout the thoracolumbar spine. Degeneration changes of the hips with osteophyte formation. LYMPH NODES: No gross evidence for lymphadenopathy. SOFT TISSUE/ABDOMINAL WALL: Unremarkable IMPRESSION: 1. There may be mild inflammation changes in the left lower quadrant around colonic diverticula/the colon. Correlate for diverticulitis. Otherwise no acute process. 2. No obstructive uropathy or renal calculus.
[2023-04-11 13:34] LABS: Eosinophils # (M) 0.49 k/uL (0-0.7); Lymphocytes # (M) 1.46 k/uL (1.0-4.8); Monocytes # (M) 0.79 k/uL (0-1.0); Neutrophils # (M) 3.36 k/uL (1.3-7.7); Neutrophils % (M) 55 %; Nucleated Red Blood Cells 0 /100 WBC (0-0); Total Cells Counted 100
[2023-04-11 14:45] VITALS: BP 136/75; PULSE 67
== END 2023-04-11 14:29 | disposition home or self-care (01) ==
LOC: EC 10:22
DX: B02.9 Zoster without complications (principal); K57.92 Diverticulitis of intestine, part unspecified, without perforation or abscess without bleeding; E11.9 Type 2 diabetes mellitus without complications; I48.91 Unspecified atrial fibrillation; I11.0 Hypertensive heart disease with heart failure; I50.9 Heart failure, unspecified; Z88.6 Allergy status to analgesic agent; Z79.4 Long term (current) use of insulin; Z79.01 Long term (current) use of anticoagulants; Z79.84 Long term (current) use of oral hypoglycemic drugs; Z79.899 Other long term (current) drug therapy; Z90.49 Acquired absence of other specified parts of digestive tract; Z20.822 Contact with and (suspected) exposure to COVID-19
CPT/HCPCS: 36415; 71046; 74176; 80053; 83605; 83690; 85025; 87636; 93005; 99285

== ENCOUNTER 2023-07-29 22:44 | Inpatient (IN) | payer MEDICARE ==
[2023-07-29] MEDS ORDERED: VANCOMYCIN IV PER PHARMACY 1 EACH MISC MISCELLANE PRN (23:23)
--- NOTE | 2023-07-29 23:27 | ED ---
General Adult HPI - General Chief complaint: Extremity Injury, Lower Stated complaint: left foot pain Time Seen by Provider: 07/29/23 23:11 Source: patient, RN notes reviewed, old records reviewed Mode of arrival: ambulatory Limitations: no limitations - History of Present Illness Initial comments: 83-year-old female with bruising and minimal bleeding from left foot. Patient had midfoot amputation and has had issues with recurrent infection in this foot. History of diabetes. She has had subjective fever and chills over the past several days. Daughter does not recall a specific trauma to the foot but had noted bruising. This was seen by home care nurse and felt to be normal. Daughter did note that the foot was colder than normal. - Related Data Home Medications Medication Instructions Recorded Confirmed Rivaroxaban [Xarelto] 15 mg PO DAILY 06/28/21 03/13/23 Folic Acid 1 mg PO DAILY 02/20/22 03/13/23 Potassium Chloride ER [K-Dur 10] 10 meq PO DAILY 02/20/22 03/13/23 Tamsulosin HCl [Flomax] 0.4 mg PO DAILY 02/20/22 03/13/23 Empagliflozin [Jardiance] 10 mg PO DAILY 04/26/22 03/13/23 Furosemide [Lasix] 20 mg PO DAILY 04/26/22 03/13/23 Simvastatin [Zocor] 10 mg PO DAILY 04/26/22 03/13/23 Insulin Aspart [NovoLOG Flexpen] 6 units SQ TID-W/MEALS 11/07/22 03/13/23 Insulin Aspart [NovoLOG Flexpen] See Protocol SQ TID-W/MEALS PRN 11/07/22 03/13/23 Insulin Glargine,Hum.rec.anlog 16 units SQ HS 11/07/22 03/13/23 [Lantus Solostar Pen] Amoxicillin 250 mg PO HS 03/13/23 03/13/23 Dulaglutide [Trulicity] 0.75 mg SQ THOMSON 03/13/23 03/13/23 Previous Rx's Medication Instructions Recorded amLODIPine [Norvasc] 5 mg PO DAILY 30 Days #30 tab 02/23/22 hydrALAZINE HCL [Apresoline] 25 mg PO BID 30 Days #60 tab 02/23/22 Acetaminophen Tab [Tylenol] 650 mg PO Q6HR PRN tab 11/09/22 Amoxic-Pot Clav 875-125Mg 1 tab PO Q12HR 14 Days #28 tab 03/19/23 [Augmentin 875-125] Ciprofloxacin HCl [Cipro] 500 mg PO BID 14 Days #28 tab 03/19/23 Amoxic-Pot Clav 875-125Mg 1 tab PO Q8H 5 Days #15 tab 04/11/23 [Augmentin 875-125] valACYclovir HCL [Valacyclovir] 1,000 mg PO DAILY 7 Days tab 04/11/23 Allergies Allergy/AdvReac Type Severity Reaction Status Date / Time aspirin Allergy Anaphylaxis Verified 07/29/23 22:54 Review of Systems ROS Statement: Those systems with pertinent positive or pertinent negative responses have been documented in the HPI. ROS Other: All systems not noted in ROS Statement are negative. Past Medical History Past Medical History: Atrial Fibrillation, Heart Failure, Diabetes Mellitus, Hypertension, Renal Disease Additional Past Medical History / Comment(s): wound rt foot and rt chin, wound to left pinkey, bilateral toes amputation, kidney failure, CHF, "slight stroke" 10years ago, History of Any Multi-Drug Resistant Organisms: None Reported Past Surgical History: Cholecystectomy Additional Past Surgical History / Comment(s): left foot all toes amputated 2021; hematoma removal abdomen Past Anesthesia/Blood Transfusion Reactions: No Reported Reaction Past Psychological History: No Psychological Hx Reported Smoking Status: Never smoker Past Alcohol Use History: None Reported Past Drug Use History: None Reported - Past Family History Sister(s) Family Medical History: Cancer Brother(s) Family Medical History: Cancer General Exam Limitations: no limitations General appearance: alert, in no apparent distress Head exam: Present: atraumatic, normocephalic Eye exam: Present: normal appearance, PERRL ENT exam: Present: normal exam Neck exam: Present: normal inspection. Absent: tenderness, meningismus Respiratory exam: Present: normal lung sounds bilaterally. Absent: respiratory distress, wheezes Cardiovascular Exam: Present: regular rate, normal rhythm Extremities exam: Present: other (Metatarsal amputation left foot, there is a ulceration on the plantar surface without purulence this is approximately 1 cm round. The distal stump is ecchymotic, cool to the touch, no crepitus.) Neurological exam: Present: alert, oriented X3, CN II-XII intact. Absent: motor sensory deficit Skin exam: Present: warm, dry Course Vital Signs 07/29/23 22:49 Temperature 99.8 F H Pulse Rate 104 H Respiratory 18 Rate Blood Pressure 101/63 O2 Sat by Pulse 99 Oximetry Medical Decision Making - Medical Decision Making Was pt. sent in by a medical professional or institution (ANGELLA Coon, [employer], urgent care, hospital, or group home...) When possible be specific @ -No Did you speak to anyone other than the patient for history (EMS, parent, family, police, friend...)? What history was obtained from this source @ -No Did you review nursing and triage notes (agree or disagree)? Why? @ -I reviewed and agree with nursing and triage notes Were old charts reviewed (outside hosp., previous admission, EMS record, old EKG, old radiological studies, urgent care reports/EKG's, group home records)? Report findings @ -No old charts were reviewed Differential Diagnosis (chest pain, altered mental status, abdominal pain women, abdominal pain men, vaginal bleeding, weakness, fever, dyspnea, syncope, headache, dizziness, GI bleed, back pain, seizure, CVA, palpatations, mental health, musculoskeletal)? @ -Gangrene, necrotizing fasciitis, cellulitis EKG interpreted by me (3pts min.). @ -As above X-rays interpreted by me (1pt min.). @ -X-ray left foot negative for soft tissue gas CT interpreted by me (1pt min.). @ -None done U/S interpreted by me (1pt. min.). @ -None done What testing was considered but not performed or refused? (CT, X-rays, U/S, labs)? Why? @ -None What meds were considered but not given or refused? Why? @ -None Did you discuss the management of the patient with other professionals (professionals i.e. ANGELLA Coon, [employer], lab, RT, psych nurse, director of social work, action installer, teacher, chief supply chain officer, case coordinator)? Give summary @ -No Was smoking cessation discussed for >3mins.? @ -No Was critical care preformed (if so, how long)? @ -No Were there social determinants of health that impacted care today? How? (Homelessness, low income, unemployed, alcoholism, drug addiction, transportation, low edu. Level, literacy, decrease access to med. care, group home, rehab)? @ -No Was there de-escalation of care discussed even if they declined (Discuss DNR or withdrawal of care, Hospice)? DNR status @ - What co-morbidities impacted this encounter? (DM, HTN, Smoking, COPD, CAD, Cancer, CVA, ARF, Chemo, Hep., AIDS, mental health diagnosis, sleep apnea, morbid obesity)? @ -Diabetes, hypertension, peripheral vascular disease Was patient admitted / discharged? Hospital course, mention meds given and route, prescriptions, significant lab abnormalities, going to OR and other pertinent info. @ -[83-year-old female with left foot ecchymosis over the past several days. Patient has low-grade temperature. She has a white blood cell count of 20,000. She has a normal lactic, otherwise stable vitals. She is started on Zosyn and vancomycin upon arrival to the emergency department. Blood cultures are obtained. X-ray is negative for soft tissue gas. She will be admitted to internal medicine with both infectious disease and vascular surgery on consult. Undiagnosed new problem with uncertain prognosis? @ -No Drug Therapy requiring intensive monitoring for toxicity (Heparin, Nitro, Insulin, Cardizem)? @ -No Were any procedures done? @ -No Diagnosis/symptom? @ -[Gangrene, skin and soft tissue infection, sepsis Acute, or Chronic, or Acute on Chronic? @ -Acute Uncomplicated (without systemic symptoms) or Complicated (systemic symptoms)? @ -Default Side effects of treatment? @ -No Exacerbation, Progression, or Severe Exacerbation? @ -No Poses a threat to life or bodily function? How? (Chest pain, USA, PR, pneumonia, PE, COPD, DKA, ARF, appy, cholecystitis, CVA, Diverticulitis, Homicidal, Suicidal, threat to staff... and all critical care pts) @ -Yes, sepsis - Lab Data Result diagrams: 07/30/23 00:30 07/30/23 00:30 Lab Results 07/30/23 07/30/23 Range/Units 00:30 00:30 WBC 20.0 H (3.8-10.6) k/uL RBC 3.38 L (3.80-5.40) m/uL Hgb 10.6 L (11.4-16.0) gm/dL Hct 30.4 L (34.0-46.0) % MCV 90.0 (80.0-100.0) fL MCH 31.5 (25.0-35.0) pg MCHC 34.9 (31.0-37.0) g/dL RDW 13.6 (11.5-15.5) % Plt Count 217 (150-450) k/uL MPV 8.3 Neutrophils % 90 % Lymphocytes % 3 % Monocytes % 5 % Eosinophils % 0 % Basophils % 0 % Neutrophils # 18.0 H (1.3-7.7) k/uL Lymphocytes # 0.7 L (1.0-4.8) k/uL Monocytes # 1.0 (0-1.0) k/uL Eosinophils # 0.1 (0-0.7) k/uL Basophils # 0.0 (0-0.2) k/uL Sodium 128 L (137-145) mmol/L Potassium 4.4 (3.5-5.1) mmol/L Chloride 98 (98-107) mmol/L Carbon Dioxide 20 L (22-30) mmol/L Anion Gap 10 mmol/L BUN 40 H (7-17) mg/dL Creatinine 1.82 H (0.52-1.04) mg/dL Est GFR (CKD-EPI)AfAm 29 (>60 ml/min/1.73 sqM) Est GFR (CKD-EPI)NonAf 25 (>60 ml/min/1.73 sqM) Glucose 104 H (74-99) mg/dL Calcium 8.4 (8.4-10.2) mg/dL Magnesium 1.7 (1.6-2.3) mg/dL Total Bilirubin 0.8 (0.2-1.3) mg/dL AST 23 (14-36) U/L ALT 13 (4-34) U/L Alkaline Phosphatase 139 H (38-126) U/L Total Protein 7.5 (6.3-8.2) g/dL Albumin 3.6 (3.5-5.0) g/dL Disposition Clinical Impression: Gangrene, Diabetic infection of left foot Disposition: ADMITTED IP TO THIS [facility] Condition: Stable Is patient prescribed a controlled substance at d/c from ED?: No Referrals: Megha Oneal DO [Primary Care Provider] - 1-2 days Time of Disposition: 01:11
--- NOTE | 2023-07-30 00:38 | XR ---
EXAM: XR Left Foot Complete, 3 or More Views CLINICAL HISTORY: ITS.REASON XR Reason: Infection TECHNIQUE: Frontal, lateral and oblique views of the left foot. COMPARISON: No previous study. FINDINGS: Bones/joints: Extensive amputation changes of the left mid to forefoot region. Osteopenia. No acute fracture. No dislocation. Soft tissues: There is soft tissue sling anteriorly about the region of the stomach. No radiopaque foreign body. Vasculature: Vascular calcifications are noted compatible with diabetes. IMPRESSION: 1. Extensive post surgical changes. 2. Soft tissues point. 3. Vascular calcifications compatible diabetes per 4. MRI imaging is advised to assess for cellulitis/osteomyelitis.
[2023-07-30] MEDS: SODIUM CHLORIDE 0.9% 1,000 ML IV SCH ×3 (00:40→10:45)
[2023-07-30] MEDS: ACETAMINOPHEN TAB 500 MG TAB PO STA (00:41)
[2023-07-30] MEDS: PIPERACILLIN-TAZOBACTAM 3.375 GM in SODIUM CHLORIDE 0.9% 100 ML IVPB STA (00:49)
[2023-07-30 00:56] LABS: Basophils % (A) 0 %; Eosinophils # (A) 0.1 k/uL (0-0.7); Eosinophils % (A) 0 %; HCT 30.4 % (34.0-46.0); HGB 10.6 gm/dL (11.4-16.0); Lymphocytes # (A) 0.7 k/uL (1.0-4.8); Lymphocytes % (A) 3 %; MCH 31.5 pg (25.0-35.0); MCHC 34.9 g/dL (31.0-37.0); Mean Platelet Volume 8.3; Monocytes % (A) 5 %; Neutrophils % (A) 90 %; Platelet Count 217 k/uL (150-450); RBC 3.38 m/uL (3.80-5.40); RDW 13.6 % (11.5-15.5)
[2023-07-30 00:58] LABS: ALT 13 U/L (4-34); AST 23 U/L (14-36); African American GFR (CKD) 29 (>60 ml/min/1.73 sqM); Albumin 3.6 g/dL (3.5-5.0); Alkaline Phosphatase 139 U/L (38-126); Anion Gap 10 mmol/L; Blood Urea Nitrogen 40 mg/dL (7-17); Calcium 8.4 mg/dL (8.4-10.2); Carbon Dioxide 20 mmol/L (22-30); Chloride 98 mmol/L (98-107); Glucose 104 mg/dL (74-99); Magnesium 1.7 mg/dL (1.6-2.3); Non-African American GFR(CKD) 25 (>60 ml/min/1.73 sqM); Potassium 4.4 mmol/L (3.5-5.1); Sodium 128 mmol/L (137-145); Total Bilirubin 0.8 mg/dL (0.2-1.3); Total Protein 7.5 g/dL (6.3-8.2)
[2023-07-30] MEDS ORDERED: NALOXONE 0.4 MG/ML 1 ML VIAL IV PRN (01:04)
[2023-07-30] MEDS: VANCOMYCIN 1,250 MG in SODIUM CHLORIDE 0.9% 250 ML IVPB STA (01:30)
[2023-07-30] MEDS: PIPERACILLIN-TAZOBACTAM 3.375 GM in SODIUM CHLORIDE 0.9% 100 ML IVPB SCH (08:17)
[2023-07-30 08:51] LABS: HCT 28.1 % (34.0-46.0); HGB 9.3 gm/dL (11.4-16.0); MCH 30.7 pg (25.0-35.0); MCHC 33.2 g/dL (31.0-37.0); MCV 92.7 fL (80.0-100.0); Platelet Count 196 k/uL (150-450); RBC 3.03 m/uL (3.80-5.40); RDW 13.5 % (11.5-15.5); WBC 15.5 k/uL (3.8-10.6)
[2023-07-30 09:01] LABS: African American GFR (CKD) 32 (>60 ml/min/1.73 sqM); Anion Gap 11 mmol/L; Blood Urea Nitrogen 33 mg/dL (7-17); Calcium 7.6 mg/dL (8.4-10.2); Carbon Dioxide 18 mmol/L (22-30); Chloride 106 mmol/L (98-107); Glucose 129 mg/dL (74-99); Non-African American GFR(CKD) 28 (>60 ml/min/1.73 sqM); Potassium 3.8 mmol/L (3.5-5.1); Sodium 135 mmol/L (137-145)
[2023-07-30 09:38] LABS: Glucose,Whole Blood 143 mg/dL (70-110)
--- NOTE | 2023-07-30 10:51 | P.GSCN ---
History of Present Illness Consult date: 07/30/23 Reason for Consult: Left foot infection Requesting physician: Tyler Yepez History of present illness: 83-year-old female known to our service with a past medical history including diabetes mellitus, peripheral neuropathy, diabetic ulcers, gangrenous toes status post left TMA, peripheral arterial disease, atrial fibrillation on Xarelto, hypertension and chronic renal disease presented to the emergency department concerned for possible infected diabetic ulcer. Patient underwent transmetatarsal amputation of the left foot on 09/09/2021 for gangrenous toes. She had prolonged healing of the wound. She had undergone 2 surgical excisional debridements following the TMA, last one noted 04/28/2022. She also has a wound to the right lateral aspect of the ankle and follows with Dr. Campos. She has a home care nurse that comes to the house and does wound care. Her daughter is currently at the bedside and states that she changed her mom's dressing yesterday and had noticed that the left TMA site was purple and cold. States that there has been a little bit of bleeding from that site as well. Patient h as no feeling in that foot and states that she has not had feeling in that foot for a long time. This is nothing new. She has also underwent revascularization in July [address] Don, who underwent angiogram with angioplasty left posterior tibial artery. Patient denied any fevers or chills, no shortness of breath, chest pain, abdominal pain, nausea or vomiting. No pain down the lower extremities. Lower extremity warm to touch to the ankle. Left foot x-ray reported extensive postsurgical changes, soft tissues point. Vascular calcifications compatible diabetes. MRI imaging advised to assess for cellulitis/osteomyelitis. Past Medical History Past Medical History: Atrial Fibrillation, Heart Failure, Diabetes Mellitus, Hypertension, Renal Disease Additional Past Medical History / Comment(s): wound rt foot and rt chin, wound to left pinkey, bilateral toes amputation, kidney failure, CHF, "slight stroke" 10years ago, History of Any Multi-Drug Resistant Organisms: None Reported Past Surgical History: Cholecystectomy Additional Past Surgical History / Comment(s): left foot all toes amputated 2021; hematoma removal abdomen Past Anesthesia/Blood Transfusion Reactions: No Reported Reaction Past Psychological History: No Psychological Hx Reported Smoking Status: Never smoker Past Alcohol Use History: None Reported Past Drug Use History: None Reported - Past Family History Sister(s) Family Medical History: Cancer Brother(s) Family Medical History: Cancer Medications and Allergies Home Medications Medication Instructions Recorded Confirmed Type Rivaroxaban [Xarelto] 15 mg PO DAILY 06/28/21 07/30/23 History Folic Acid 1 mg PO DAILY@1200 02/20/22 07/30/23 History Potassium Chloride ER [K-Dur 10] 10 meq PO DAILY@1200 02/20/22 07/30/23 History Tamsulosin HCl [Flomax] 0.4 mg PO DAILY 02/20/22 07/30/23 History amLODIPine [Norvasc] 5 mg PO DAILY 30 Days #30 tab 02/23/22 07/30/23 Rx hydrALAZINE HCL [Apresoline] 25 mg PO BID 30 Days #60 tab 02/23/22 07/30/23 Rx Empagliflozin [Jardiance] 10 mg PO DAILY 04/26/22 07/30/23 History Furosemide [Lasix] 20 mg PO DAILY 04/26/22 07/30/23 History Simvastatin [Zocor] 10 mg PO DAILY 04/26/22 07/30/23 History Insulin Aspart [NovoLOG Flexpen] 6 units SQ TID-W/MEALS 11/07/22 07/30/23 History Insulin Aspart [NovoLOG Flexpen] See Protocol SQ TID-W/MEALS PRN 11/07/22 07/30/23 History Insulin Glargine,Hum.rec.anlog 16 units SQ HS 11/07/22 07/30/23 History [Lantus Solostar Pen] Acetaminophen Tab [Tylenol] 650 mg PO Q6HR PRN tab 11/09/22 07/30/23 Rx Sodium Bicarbonate Tab 650 mg PO DAILY@1200 07/30/23 07/30/23 History Allergies Allergy/AdvReac Type Severity Reaction Status Date / Time aspirin Allergy Anaphylaxis Verified 07/30/23 08:27 Surgical - Exam Vital Signs Temp Pulse Resp BP Pulse Ox 99.8 F H 104 H 18 101/63 99 07/29/23 22:49 07/29/23 22:49 07/29/23 22:49 07/29/23 22:49 07/29/23 22:49 General appearance: The patient is alert, oriented, appears in no acute distress. Obese. HET: Head is normocephalic and atraumatic. Pupils are equal and reactive. Neck: Supple. Heart: Regular. Lungs: Equal expansion, normal respiratory effort. Abdomen: Soft, nontender, nondistended. Extremities: Left lower extremity warm to the touch to the ankle, TMA site with ischemic changes. Cool to the touch. Right lateral aspect of ankle with ulcer, good granulation. No drainage or foul odor noted. Neurological: No focal deficits. Results - Labs 07/30/23 08:13 07/30/23 08:13 Abnormal Lab Results - Last 24 Hours (Table) 07/30/23 07/30/23 07/30/23 Range/Units 00:30 00:30 08:13 WBC 20.0 H 15.5 H (3.8-10.6) k/uL RBC 3.38 L 3.03 L (3.80-5.40) m/uL Hgb 10.6 L 9.3 L (11.4-16.0) gm/dL Hct 30.4 L 28.1 L (34.0-46.0) % Neutrophils # 18.0 H (1.3-7.7) k/uL Lymphocytes # 0.7 L (1.0-4.8) k/uL Sodium 128 L (137-145) mmol/L Carbon Dioxide 20 L (22-30) mmol/L BUN 40 H (7-17) mg/dL Creatinine 1.82 H (0.52-1.04) mg/dL Glucose 104 H (74-99) mg/dL Calcium (8.4-10.2) mg/dL Alkaline Phosphatase 139 H (38-126) U/L 07/30/23 Range/Units 08:13 WBC (3.8-10.6) k/uL RBC (3.80-5.40) m/uL Hgb (11.4-16.0) gm/dL Hct (34.0-46.0) % Neutrophils # (1.3-7.7) k/uL Lymphocytes # (1.0-4.8) k/uL Sodium 135 L (137-145) mmol/L Carbon Dioxide 18 L (22-30) mmol/L BUN 33 H (7-17) mg/dL Creatinine 1.68 H (0.52-1.04) mg/dL Glucose 129 H (74-99) mg/dL Calcium 7.6 L (8.4-10.2) mg/dL Alkaline Phosphatase (38-126) U/L Diabetes panel 07/30/23 07/30/23 Range/Units 00:30 08:13 Sodium 128 L 135 L (137-145) mmol/L Potassium 4.4 3.8 (3.5-5.1) mmol/L Chloride 98 106 (98-107) mmol/L Carbon Dioxide 20 L 18 L (22-30) mmol/L BUN 40 H 33 H (7-17) mg/dL Creatinine 1.82 H 1.68 H (0.52-1.04) mg/dL Glucose 104 H 129 H (74-99) mg/dL Calcium 8.4 7.6 L (8.4-10.2) mg/dL AST 23 (14-36) U/L ALT 13 (4-34) U/L Alkaline Phosphatase 139 H (38-126) U/L Total Protein 7.5 (6.3-8.2) g/dL Albumin 3.6 (3.5-5.0) g/dL Calcium panel 07/30/23 07/30/23 Range/Units 00:30 08:13 Calcium 8.4 7.6 L (8.4-10.2) mg/dL Albumin 3.6 (3.5-5.0) g/dL Pituitary panel 07/30/23 07/30/23 Range/Units 00:30 08:13 Sodium 128 L 135 L (137-145) mmol/L Potassium 4.4 3.8 (3.5-5.1) mmol/L Chloride 98 106 (98-107) mmol/L Carbon Dioxide 20 L 18 L (22-30) mmol/L BUN 40 H 33 H (7-17) mg/dL Creatinine 1.82 H 1.68 H (0.52-1.04) mg/dL Glucose 104 H 129 H (74-99) mg/dL Calcium 8.4 7.6 L (8.4-10.2) mg/dL Adrenal panel 07/30/23 07/30/23 Range/Units 00:30 08:13 Sodium 128 L 135 L (137-145) mmol/L Potassium 4.4 3.8 (3.5-5.1) mmol/L Chloride 98 106 (98-107) mmol/L Carbon Dioxide 20 L 18 L (22-30) mmol/L BUN 40 H 33 H (7-17) mg/dL Creatinine 1.82 H 1.68 H (0.52-1.04) mg/dL Glucose 104 H 129 H (74-99) mg/dL Calcium 8.4 7.6 L (8.4-10.2) mg/dL Total Bilirubin 0.8 (0.2-1.3) mg/dL AST 23 (14-36) U/L ALT 13 (4-34) U/L Alkaline Phosphatase 139 H (38-126) U/L Total Protein 7.5 (6.3-8.2) g/dL Albumin 3.6 (3.5-5.0) g/dL - Imaging Comments: Left foot x-ray reported extensive postsurgical changes, soft tissues point. Vascular calcifications compatible diabetes. MRI imaging advised to assess for cellulitis/osteomyelitis. ABIs ordered, ultrasound not completed Assessment and Plan Assessment: 1. Ischemic changes to left TMA site 2. 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 Peripheral arterial disease 4. Right ankle diabetic ulcer 5. Atrial fibrillation on Xarelto 6. Diabetes mellitus 7. Peripheral neuropathy Plan: 1. Lower extremity arterial ultrasound ordered 2. Await recommendations from infectious disease 3. Possible angiogram this week. Further recommendations forthcoming per vascular surgeon Thank you for this consultation, we will continue to follow. The impression and plan of care has been dictated as directed. Dr. Don I performed a history and examination of this patient, discussed the same with the dictator. I agree with the dictator's note ,documented as a scribe. Any additional findings or plans will be noted. Patient seen and examined. Cyanotic changes to the distal forefoot/TMA amputati on site. Neuropathic, insensate. Will continue to evaluate workup for level of amputation versus potential revascularization needed however did have a long discussion with the patient regarding the amount of tissue that is already irreversibly ischemic and since it does contain the majority of the foot likely healing any sort of transmetatarsal would be exceedingly difficult. Patient seemingly understands. Did discuss potential further below-knee amputation versus palliative care and no aggressive surgical interventions. Will await full arterial waveform/segmental pressures to make further recommendations, also discussed patient likely will need repeat angiogram which may cause further renal issues, will continue to hydrate at this time.
--- NOTE | 2023-07-30 12:29 | US ---
EXAMINATION TYPE: US arterial LE multi level DATE OF EXAM: 07/30/2023 10:03 AM CLINICAL INDICATION: Female, 83 years old with history of ischemic left foot; 5 digits of left foot a lready amputated, stump is cold and turning purple History of: Smoker: n Hypertension: y Diabetic: y Hyperlipidemia: y TIA/CVA: y Previous Vascular Surgery: n CAD: n HI: n Vascular Ulcers: n Claudication: n Gangrene: n Doppler Waveforms: Right: Monophasic Left: unable to detected DP or PT Right Brachial Pressure: 143 Left Brachial Pressure: IV Ankle-Brachial Indices: Right: CNO Left: no signal detected Toe Brachial Indices: Right: no signal detected Left: amputated IMPRESSION: No ankle brachial indices able to be obtained.
[2023-07-30 12:30] LABS: Glucose,Whole Blood 238 mg/dL (70-110)
[2023-07-30] MEDS: INSULIN ASPART (NovoLOG) 100 UNIT/ML VIAL SQ SCH (12:47)
[2023-07-30] MEDS: SODIUM BICARBONATE TAB 650 MG TAB PO SCH (12:47)
[2023-07-30] MEDS: FOLIC ACID 1 MG TAB PO SCH (12:47)
[2023-07-30 16:29] LABS: Glucose,Whole Blood 207 mg/dL (70-110)
[2023-07-30 20:42] LABS: Glucose,Whole Blood 170 mg/dL (70-110)
--- NOTE | 2023-07-30 20:52 | P.CONS ---
History of Present Illness - Reason for Consult Consult date: 07/30/23 Left foot infection Requesting physician: Tyler Yepez - Chief Complaint Discoloration of the left foot x days - History of Present Illness Patient is a 83-year-old female with a past medical history significant for diabetes mellitus hypertension atrial fibrillation heart failure patient did have history of left diabetic foot infection requiring transme tatarsal amputation and did have a chronic nonhealing wound on the plantar aspect of the left foot that was evaluated in the outpatient setting recently she did have cultures times on 06/27/2023 and did grow Pseudomonas E. coli along with anaerobes and the patient has been treated with a course of Cipro and Augmentin however the patient never came back for follow-up patient now presenting to the [facility] ER concerning for discoloration of the left foot that apparently started a day before presentation to the hospital patient denies any history of any trauma denies pain to the left foot area main concern has been the discoloration in the foot is cold is no foul-smelling drainage and the patient denies having any fever on presentation to the hospital she did have a low-grade fever of 99.8 F patient was not tachycardic hypotensive or hypoxic did have white count of 15.5 BUN and creatinine has been mildly elevated patient was started on vancomycin and Zosyn infectious disease was consulted for further management of antibiotic therapy patient has been eval by vascular surgery and waiting for the lower extremity arterial ultrasound and possible angiogram Review of Systems Positive point and negatives has been mentioned in the HPI, complete review of systems was performed and all other systems are negative Past Medical History Past Medical History: Atrial Fibrillation, Heart Failure, Diabetes Mellitus, Hyp ertension, Renal Disease Additional Past Medical History / Comment(s): wound rt foot and rt chin, wound to left pinkey, bilateral toes amputation, kidney failure, CHF, "slight stroke" 10years ago, History of Any Multi-Drug Resistant Organisms: None Reported Past Surgical History: Cholecystectomy Additional Past Surgical History / Comment(s): left foot all toes amputated 2021; hematoma removal abdomen Past Anesthesia/Blood Transfusion Reactions: No Reported Reaction Past Psychological History: No Psychological Hx Reported Smoking Status: Never smoker Past Alcohol Use History: None Reported Past Drug Use History: None Reported - Past Family History Sister(s) Family Medical History: Cancer Brother(s) Family Medical History: Cancer Medications and Allergies Home Medications Medication Instructions Recorded Confirmed Type Folic Acid 1 mg PO DAILY@1200 02/20/22 07/30/23 History Potassium Chloride ER [K-Dur 10] 10 meq PO DAILY@1200 02/20/22 07/30/23 History Tamsulosin HCl [Flomax] 0.4 mg PO DAILY 02/20/22 07/30/23 History Empagliflozin [Jardiance] 10 mg PO DAILY 04/26/22 07/30/23 History Furosemide [Lasix] 20 mg PO DAILY 04/26/22 07/30/23 History Simvastatin [Zocor] 10 mg PO DAILY 04/26/22 07/30/23 History Insulin Aspart [NovoLOG Flexpen] 6 units SQ TID-W/MEALS 11/07/22 07/30/23 History Insulin Aspart [NovoLOG Flexpen] See Protocol SQ TID-W/MEALS PRN 11/07/22 07/30/23 History Acetaminophen Tab [Tylenol] 650 mg PO Q6HR PRN tab 11/09/22 07/30/23 Rx Sodium Bicarbonate Tab 650 mg PO DAILY@1200 07/30/23 07/30/23 History Collagenase [Santyl Ointment] 1 applic TOPICAL 2100 each 08/06/23 Rx DULoxetine HCL [Cymbalta] 30 mg PO DAILY cap 08/06/23 Rx HYDROcodone/APAP 7.5-325MG [Linden 1 each PO Q6HR PRN #4 tab 08/06/23 Rx 7.5-325] Insulin Glargine,Hum.rec.anlog 10 units SQ DAILY #0 08/06/23 07/30/23 Rx [Lantus Solostar Pen] Rivaroxaban [Xarelto] 15 mg PO W/SUPPER tab 08/06/23 Rx hydrALAZINE HCL [Apresoline] 25 mg PO TID tab 08/06/23 Rx Allergies Allergy/AdvReac Type Severity Reaction Status Date / Time aspirin Allergy Anaphylaxis Verified 07/30/23 08:27 Physical Exam Vitals: Vital Signs Temp Pulse Pulse Resp BP BP Pulse Ox 07/30/23 08:00 97.5 F L 51 L 17 143/61 97 07/30/23 06:21 52 L 16 129/66 98 07/30/23 05:00 52 L 18 117/48 96 07/30/23 02:50 66 16 124/53 96 07/30/23 02:21 98.9 F 61 20 126/49 97 07/29/23 22:49 99.8 F H 104 H 18 101/63 99 Intake and Output 07/29/23 07/30/23 07/30/23 22:59 06:59 14:59 Other: Weight 69.853 kg 69.853 kg GENERAL DESCRIPTION: Elderly female lying in bed, no distress. No tachypnea or accessory muscle of respiration use. HEENT: Shows Pallor , no scleral icterus. Oral mucous membrane is dry. No pharyngeal erythema or thrush NECK: Trachea central, no thyromegaly. LUNGS: Unlabored breathing. Clear to auscultation anteriorly. No wheeze or scrap preparer ckle. HEART: S1, S2, regular rate and rhythm. No loud murmur ABDOMEN: Soft, no tenderness , guarding or rigidity, no organomegaly EXTREMITIES: Patient did have discoloration of the left foot transmetatarsal amputation site with a wound on the plantar aspect but no drainage patient also have a wound to the right lateral malleolar area but no slough tissue or redness SKIN: No rash, no masses palpable. NEUROLOGICAL: The patient is awake, alert, oriented x3, mood and affect normal. Results CBC & Chem 7: 08/06/23 07:14 08/06/23 07:14 Labs: Abnormal Lab Results - Last 24 Hours (Table) 07/30/23 07/30/23 07/30/23 Range/Units 00:30 00:30 08:13 WBC 20.0 H 15.5 H (3.8-10.6) k/uL RBC 3.38 L 3.03 L (3.80-5.40) m/uL Hgb 10.6 L 9.3 L (11.4-16.0) gm/dL Hct 30.4 L 28.1 L (34.0-46.0) % Neutrophils # 18.0 H (1.3-7.7) k/uL Lymphocytes # 0.7 L (1.0-4.8) k/uL Sodium 128 L (137-145) mmol/L Carbon Dioxide 20 L (22-30) mmol/L BUN 40 H (7-17) mg/dL Creatinine 1.82 H (0.52-1.04) mg/dL Glucose 104 H (74-99) mg/dL POC Glucose (mg/dL) (70-110) mg/dL Calcium (8.4-10.2) mg/dL Alkaline Phosphatase 139 H (38-126) U/L 07/30/23 07/30/23 Range/Units 08:13 09:36 WBC (3.8-10.6) k/uL RBC (3.80-5.40) m/uL Hgb (11.4-16.0) gm/dL Hct (34.0-46.0) % Neutrophils # (1.3-7.7) k/uL Lymphocytes # (1.0-4.8) k/uL Sodium 135 L (137-145) mmol/L Carbon Dioxide 18 L (22-30) mmol/L BUN 33 H (7-17) mg/dL Creatinine 1.68 H (0.52-1.04) mg/dL Glucose 129 H (74-99) mg/dL POC Glucose (mg/dL) 143 H (70-110) mg/dL Calcium 7.6 L (8.4-10.2) mg/dL Alkaline Phosphatase (38-126) U/L Assessment and Plan (1) Diabetic infection of left foot Status: Acute Code(s): E11.628 - TYPE 2 DIABETES MELLITUS WITH OTHER SKIN COMPLICATIONS; L08.9 - LOCAL INFECTION OF THE SKIN AND SUBCUTANEOUS TISSUE, UNSP SNOMED Code(s): 45504430 (2) Diabetic ulcer of left foot Status: Acute Code(s): E11.621 - TYPE 2 DIABETES MELLITUS WITH FOOT ULCER; L97.529 - NON-PRESSURE CHRONIC ULCER OTH PRT LEFT FOOT W UNSP SEVERITY SNOMED Code(s): 969031566 (3) Gangrene of left foot Status: Acute Code(s): I96 - GANGRENE, NOT ELSEWHERE CLASSIFIED SNOMED Code(s): 35852822115300357 Plan: 1patient presented to hospital with left diabetic foot infection in this patient who did have a chronic nonhealing wound on the plantar aspect however features are mostly suggestive of ischemia on today's visit last culture positive for Pseudomonas E. coli anaerobes 2-patient did have borderline kidney function high risk of nephrotoxicity 3-we will continue patient on Zosyn however discontinue vancomycin Family at the bedside multiple questions answered We will follow on clinical condition and cultures to further adjust medication if needed Thank you for this consultation we will follow the patient along with you Dictation was produced using [email or web address] dictation software. please excuse any grammatical, word or spelling errors. Time with Patient: Greater than 30
[2023-07-30] MEDS: INSULIN DETEMIR (LEVEMIR) 100 UNIT/ML SYR SQ SCH (21:25)
--- NOTE | 2023-07-30 22:53 | P.HPIM ---
History of Present Illness H&P Date: 07/30/23 Chief Complaint: Left foot wound infection Patient is a 83-year-old female presents to ER with complaints of left foot discoloration and wound on the plantar aspect at the amputation site with minimal discharge. Worsening symptoms since last Sunday. Patient was also complaining of subjective fevers and chills last night. Patient otherwise denies any pain. Denies any chest pain or shortness of breath. Denies any recent trauma/injury. Patient does have a history of left metatarsal amputation, atrial fibrillation on anticoagulation with Xarelto, hypertension, diabetes type 2 insulin- dependent, diabetic peripheral neuropathy and chronic kidney disease stage III. On admission foot x-ray showed extensive postsurgical changes, soft tissue point vascular calcifications compatible with diabetes and MRI is advised to assess for relief/osteomyelitis. Admission Tmax 99.8 and patient was tachycardic Laboratory data showed WBC 20.0 hemoglobin 10.6 and platelets 217 Sodium 128 potassium 4.4 chloride 98 bicarb is 20 BUN 14 creatinine 1.82 and blood sugar 104 and lactic acid 1.6 magnesium 1.7 Review of Systems Constitutional: Patient did have subjective fevers and chills at home. No generalized weakness or weight loss. Abdomen: Patient denied nausea vomiting and diarrhea and abdominal pain. Cardiovascular: Patient denies any chest pain or short of breath no palpitations. Respiratory: patient denied any cough is from production. No shortness of breath Neurologic: Patient denied any numbness or tingling headache. Musculoskeletal: Patient denies any complaints of joint swelling or deformity. Left foot discoloration and wound. Skin: Negative Psychiatric: Negative Endocrine: No heat or cold intolerance. No recent weight gain. Genitourinary: No dysuria or hematuria. All other 14 point ROS negative except the above Past Medical History Past Medical History: Atrial Fibrillation, Heart Failure, CVA/TIA, Diabetes Mellitus, Hypertension, Renal Disease Additional Past Medical History / Comment(s): wound rt foot and rt chin wound healed, wound to left toes amputation, CHF, History of Any Multi-Drug Resistant Organisms: None Reported Past Surgical History: Cholecystectomy Additional Past Surgical History / Comment(s): left foot all toes amputated 2021; hematoma removal abdomen, cataract Past Anesthesia/Blood Transfusion Reactions: No Reported Reaction Past Psychological History: No Psychological Hx Reported Smoking Status: Former smoker Past Alcohol Use History: None Reported Past Drug Use History: None Reported - Past Family History Sister(s) Family Medical History: Cancer Brother(s) Family Medical History: Cancer Medications and Allergies Home Medications Medication Instructions Recorded Confirmed Type Rivaroxaban [Xarelto] 15 mg PO DAILY 06/28/21 07/30/23 History Folic Acid 1 mg PO DAILY@1200 02/20/22 07/30/23 History Potassium Chloride ER [K-Dur 10] 10 meq PO DAILY@1200 02/20/22 07/30/23 History Tamsulosin HCl [Flomax] 0.4 mg PO DAILY 02/20/22 07/30/23 History amLODIPine [Norvasc] 5 mg PO DAILY 30 Days #30 tab 02/23/22 07/30/23 Rx hydrALAZINE HCL [Apresoline] 25 mg PO BID 30 Days #60 tab 02/23/22 07/30/23 Rx Empagliflozin [Jardiance] 10 mg PO DAILY 04/26/22 07/30/23 History Furosemide [Lasix] 20 mg PO DAILY 04/26/22 07/30/23 History Simvastatin [Zocor] 10 mg PO DAILY 04/26/22 07/30/23 History Insulin Aspart [NovoLOG Flexpen] 6 units SQ TID-W/MEALS 11/07/22 07/30/23 History Insulin Aspart [NovoLOG Flexpen] See Protocol SQ TID-W/MEALS PRN 11/07/22 07/30/23 History Insulin Glargine,Hum.rec.anlog 16 units SQ HS 11/07/22 07/30/23 History [Lantus Solostar Pen] Acetaminophen Tab [Tylenol] 650 mg PO Q6HR PRN tab 11/09/22 07/30/23 Rx Sodium Bicarbonate Tab 650 mg PO DAILY@1200 07/30/23 07/30/23 History Allergies Allergy/AdvReac Type Severity Reaction Status Date / Time aspirin Allergy Anaphylaxis Verified 07/30/23 08:27 Physical Exam Vitals: Vital Signs Temp Pulse Pulse Resp BP BP Pulse Ox 07/30/23 08:00 97.5 F L 51 L 17 143/61 97 07/30/23 06:21 52 L 16 129/66 98 07/30/23 05:00 52 L 18 117/48 96 07/30/23 02:50 66 16 124/53 96 07/30/23 02:21 98.9 F 61 20 126/49 97 07/29/23 22:49 99.8 F H 104 H 18 101/63 99 Intake and Output 07/29/23 07/30/23 07/30/23 22:59 06:59 14:59 Other: Weight 69.853 kg 69.853 kg PHYSICAL EXAMINATION: Patient is lying in the bed comfortably, no acute distress, awake alert and oriented.. HEENT: Normocephalic. Neck is supple. Pupils reactive. Nostrils clear. Oral cavity is moist. Neck reveals no JVD, carotid bruits, or thyromegaly. CHEST EXAMINATION: Trachea is central. Symmetrical expansion. Lung natarajan clear to auscultation and percussion. CARDIAC: Normal S1, S2 with no gallops. No murmurs ABDOMEN: Soft. Bowel sounds normal. No organomegaly. No abdominal bruits. Extremities: Left foot TMA site with bluish discoloration and open wound on the plantar aspect. Minimal discharge.. No clubbing or cyanosis Neurologically awake, alert, oriented x3 with well-coordinated movements. No focal deficits noted Skin: No rash or skin lesions. Psychiatric: Coperative. Nonsuicidal Musculoskeletal: No joint swelling or deformity. Normal range of motion. Results CBC & Chem 7: 07/30/23 08:13 07/30/23 08:13 Labs: Abnormal Lab Results - Last 24 Hours (Table) 07/30/23 07/30/23 07/30/23 Range/Units 00:30 00:30 08:13 WBC 20.0 H 15.5 H (3.8-10.6) k/uL RBC 3.38 L 3.03 L (3.80-5.40) m/uL Hgb 10.6 L 9.3 L (11.4-16.0) gm/dL Hct 30.4 L 28.1 L (34.0-46.0) % Neutrophils # 18.0 H (1.3-7.7) k/uL Lymphocytes # 0.7 L (1.0-4.8) k/uL Sodium 128 L (137-145) mmol/L Carbon Dioxide 20 L (22-30) mmol/L BUN 40 H (7-17) mg/dL Creatinine 1.82 H (0.52-1.04) mg/dL Glucose 104 H (74-99) mg/dL POC Glucose (mg/dL) (70-110) mg/dL Calcium (8.4-10.2) mg/dL Alkaline Phosphatase 139 H (38-126) U/L 07/30/23 07/30/23 Range/Units 08:13 09:36 WBC (3.8-10.6) k/uL RBC (3.80-5.40) m/uL Hgb (11.4-16.0) gm/dL Hct (34.0-46.0) % Neutrophils # (1.3-7.7) k/uL Lymphocytes # (1.0-4.8) k/uL Sodium 135 L (137-145) mmol/L Carbon Dioxide 18 L (22-30) mmol/L BUN 33 H (7-17) mg/dL Creatinine 1.68 H (0.52-1.04) mg/dL Glucose 129 H (74-99) mg/dL POC Glucose (mg/dL) 143 H (70-110) mg/dL Calcium 7.6 L (8.4-10.2) mg/dL Alkaline Phosphatase (38-126) U/L Thrombosis Risk Factor Assmnt - DVT/VTE Prophylaxis DVT/VTE Prophylaxis: Pharmacologic Prophylaxis ordered Assessment and Plan Assessment: Left foot ischemia with soft tissue swelling/cellulitis at the amputation site with open wound on the lateral plantar aspect and minimal discharge. Sepsis secondary to above Nonhealing left foot wound Hypovolemic hyponatremia Acute on chronic kidney disease stage III due to diabetic nephrosclerosis History of left TMA Peripheral vascular disease Diabetes type 2 insulin-dependent Severe peripheral neuropathy Paroxysmal atrial fibrillation on anticoagulation with Xarelto Plan: Patient will be continued on IV antibiotics Zosyn and IV hydration. Left lower extremity arterial duplex scan was ordered and vascular surgery is on board. Follow-up wound culture reports and blood cultures. Monitor renal function and insulin regimen. Blood pressure medications on hold currently due to hypotension. Xarelto is on hold due to possible surgical intervention ID and vascular surgery is on board. Follow closely. Discussed with the family at bedside in detail. Time with Patient: Greater than 30
[2023-07-31] MEDS: ACETAMINOPHEN TAB 325 MG TAB PO PRN (01:53)
[2023-07-31] MEDS ORDERED: VANCOMYCIN 1,250 MG in SODIUM CHLORIDE 0.9% 250 ML IVPB ONE (05:00)
[2023-07-31 06:05] LABS: Glucose,Whole Blood 63 mg/dL (70-110)
[2023-07-31 06:20] LABS: Glucose,Whole Blood 83 mg/dL (70-110)
[2023-07-31 07:23] LABS: Basophils % (A) 0 %; Eosinophils # (A) 0.3 k/uL (0-0.7); Eosinophils % (A) 3 %; HCT 27.7 % (34.0-46.0); Lymphocytes # (A) 0.9 k/uL (1.0-4.8); Lymphocytes % (A) 8 %; MCH 30.6 pg (25.0-35.0); MCHC 32.6 g/dL (31.0-37.0); MCV 93.7 fL (80.0-100.0); Monocytes # (A) 0.6 k/uL (0-1.0); Monocytes % (A) 6 %; Neutrophils # (A) 8.8 k/uL (1.3-7.7); Neutrophils % (A) 82 %; Platelet Count 189 k/uL (150-450); RBC 2.95 m/uL (3.80-5.40); RDW 13.5 % (11.5-15.5); WBC 10.8 k/uL (3.8-10.6)
[2023-07-31 08:00] LABS: African American GFR (CKD) 36 (>60 ml/min/1.73 sqM); Anion Gap 7 mmol/L; Blood Urea Nitrogen 31 mg/dL (7-17); Calcium 7.5 mg/dL (8.4-10.2); Carbon Dioxide 20 mmol/L (22-30); Chloride 108 mmol/L (98-107); Glucose 105 mg/dL (74-99); Non-African American GFR(CKD) 31 (>60 ml/min/1.73 sqM); Potassium 3.3 mmol/L (3.5-5.1); Sodium 135 mmol/L (137-145)
[2023-07-31] MEDS: TAMSULOSIN 0.4 MG CAP.ER.24H PO SCH (08:50)
[2023-07-31] MEDS: ATORVASTATIN 10 MG TAB PO SCH (08:50)
[2023-07-31] MEDS ORDERED: HEPARIN SODIUM 1,000 UN/ML (10ML VL) IV PRN (09:11)
[2023-07-31 09:46] LABS: Basophils % (A) 0 %; Eosinophils # (A) 0.1 k/uL (0-0.7); Eosinophils % (A) 1 %; HCT 28.9 % (34.0-46.0); HGB 9.5 gm/dL (11.4-16.0); Lymphocytes % (A) 9 %; MCH 30.9 pg (25.0-35.0); MCV 93.6 fL (80.0-100.0); Mean Platelet Volume 8.6; Monocytes # (A) 0.6 k/uL (0-1.0); Monocytes % (A) 5 %; Neutrophils # (A) 9.8 k/uL (1.3-7.7); Neutrophils % (A) 83 %; Platelet Count 177 k/uL (150-450); RBC 3.09 m/uL (3.80-5.40); RDW 13.7 % (11.5-15.5); WBC 11.8 k/uL (3.8-10.6)
[2023-07-31 09:53] LABS: INR 1.2 (<1.2); Partial Thromboplastin Time 25.8 sec (22.0-30.0)
[2023-07-31] MEDS: HEPARIN SOD,PORK IN 0.45% NACL 25,000 UNIT in 0.45% NACL 1 250ML.BAG IV SCH (10:26)
[2023-07-31] MEDS: HEPARIN SODIUM 1,000 UN/ML (10ML VL) IV ONE (10:26)
--- NOTE | 2023-07-31 10:33 | P.CRDCN ---
History of Present Illness History of present illness: HISTORY OF PRESENT ILLNESS: This is a 83-year-old female with a past medical history significant for hypertension, hyperlipidemia, congestive heart failure, diabetes, permanent atrial fibrillation, peripheral vascular disease, and previous left transmetatarsal amputation. Patient follows in the office with Dr. Ureña. We have been asked to see the patient in consultation for atrial fibrillation. Patient examined at the bedside. Patients family is present. Patient presented to the hospital due to skin discoloration of her left lower extremity. She is currently being followed by infectious disease and vascular medicine. Patient denies any chest pain or pressure. She denies any shortness of breath. Patient is in atrial fibrillation with slow ventricular rate. This is chronic for the patient and not anything new. She is normally anticoagulated with Xarelto which is currently on hold. DIAGNOSTICS: - Laboratory data: WBC 11.8. Hemoglobin 9.5. Platelet count 177. Sodium 135. Potassium 3.3. BUN 31. Creatinine 1.54. - Current home cardiac medications include Jardiance 10 mg daily, Lasix 20 mg daily, Xarelto 15 mg daily, simvastatin 10 mg daily, amlodipine 5 mg daily, and hydralazine 25 mg twice a day. - Most recent echocardiogram obtained in February 2022 revealed ejection fraction 50 to 55%, moderate MR, moderate TR REVIEW OF SYSTEMS: At the time of my exam: CONSTITUTIONAL: Denies fever or chills. HEENT: Denies blurred vision, vision changes, or eye pain. Denies hemoptysis CARDIOVASCULAR: Denies chest pain. Denies orthopnea. Denies PND. Denies palpitations RESPIRATORY: Denies shortness of breath. GASTROINTESTINAL: Denies abdominal pain. Denies nausea or vomiting. HEMATOLOGIC: Denies bleeding disorders. GENITOURINARY: Denies any blood in urine. SKIN: Denies pruitis. Denies rash. PHYSICAL EXAM: VITAL SIGNS: Reviewed. GENERAL: Well-developed in no acute distress. HEENT: Head is normocephalic. Pupils are equal, round. Sclerae anicteric. Mucous membranes of the mouth are moist. Neck supple. No JVD or thyromegaly LUNGS: Respirations even and unlabored. Lungs essentially clear to auscultation bilaterally. HEART: Bradycardic. Irregular rate and rhythm. S1 and S2 heard. Systolic murmur noted ABDOMEN: Soft. Nondistended. Nontender. EXTREMITIES: Normal range of motion. No clubbing or cyanosis. TMA noted to left foot. Dressing noted to right ankle. NEUROLOGIC: Awake and alert. Oriented x 3. ASSESSMENT: Permanent atrial fibrillation with slow ventricular rate History of nonhealing wound to left TMA site now with ischemic changes Hypertension Hyperlipidemia Congestive heart failure with preserved EF, currently euvolemic History of peripheral arterial disease Known right ankle diabetic ulcer Diabetes Peripheral neuropathy PLAN: Xarelto currently remains on hold Will begin IV heparin in the meantime Continue additional cardiac medications Patient is currently stable from a cardiac perspective Further recommendations pending patient course Nurse practitioner note has been reviewed by physician. Signing provider agrees with the documented findings, assessment, and plan of care documented by FINANCIAL REPORTING ACCOUNTANT as a scribe. Past Medical History Past Medical History: Atrial Fibrillation, Heart Failure, CVA/TIA, Diabetes Mellitus, Hypertension, Renal Disease Additional Past Medical History / Comment(s): wound rt foot and rt chin wound healed, wound to left toes amputation, CHF, History of Any Multi-Drug Resistant Organisms: None Reported Past Surgical History: Cholecystectomy Additional Past Surgical History / Comment(s): left foot all toes amputated 2021; hematoma removal abdomen, cataract Past Anesthesia/Blood Transfusion Reactions: No Reported Reaction Past Psychological History: No Psychological Hx Reported Smoking Status: Former smoker Past Alcohol Use History: None Reported Past Drug Use History: None Reported - Past Family History Sister(s) Family Medical History: Cancer Brother(s) Family Medical History: Cancer Medications and Allergies Home Medications Medication Instructions Recorded Confirmed Type Rivaroxaban [Xarelto] 15 mg PO DAILY 06/28/21 07/30/23 History Folic Acid 1 mg PO DAILY@1200 02/20/22 07/30/23 History Potassium Chloride ER [K-Dur 10] 10 meq PO DAILY@1200 02/20/22 07/30/23 History Tamsulosin HCl [Flomax] 0.4 mg PO DAILY 02/20/22 07/30/23 History amLODIPine [Norvasc] 5 mg PO DAILY 30 Days #30 tab 02/23/22 07/30/23 Rx hydrALAZINE HCL [Apresoline] 25 mg PO BID 30 Days #60 tab 02/23/22 07/30/23 Rx Empagliflozin [Jardiance] 10 mg PO DAILY 04/26/22 07/30/23 History Furosemide [Lasix] 20 mg PO DAILY 04/26/22 07/30/23 History Simvastatin [Zocor] 10 mg PO DAILY 04/26/22 07/30/23 History Insulin Aspart [NovoLOG Flexpen] 6 units SQ TID-W/MEALS 11/07/22 07/30/23 History Insulin Aspart [NovoLOG Flexpen] See Protocol SQ TID-W/MEALS PRN 11/07/22 07/30/23 History Insulin Glargine,Hum.rec.anlog 16 units SQ HS 11/07/22 07/30/23 History [Lantus Solostar Pen] Acetaminophen Tab [Tylenol] 650 mg PO Q6HR PRN tab 11/09/22 07/30/23 Rx Sodium Bicarbonate Tab 650 mg PO DAILY@1200 07/30/23 07/30/23 History Allergies Allergy/AdvReac Type Severity Reaction Status Date / Time aspirin Allergy Anaphylaxis Verified 07/30/23 08:27 Physical Exam Vitals: Vital Signs Temp Pulse Resp BP Pulse Ox 07/31/23 08:54 60 07/31/23 08:00 98.1 F 49 L 18 135/56 100 07/31/23 07:36 98.0 F 49 L 18 135/56 100 07/31/23 02:00 102 F H 57 L 16 145/55 100 07/30/23 20:00 98.1 F 66 16 145/62 98 07/30/23 16:00 97.8 F 55 L 17 137/69 98 07/30/23 12:00 97.6 F 58 L 16 127/62 98 Intake and Output 07/30/23 07/31/23 07/31/23 22:59 06:59 14:59 Output Total 700 500 Balance -700 -500 Output: Urine 700 500 Other: Voiding Method External Catheter Results 07/31/23 09:23 07/31/23 06:55 CBC 07/31/23 Range/Units 06:55 WBC 10.8 H (3.8-10.6) k/uL RBC 2.95 L (3.80-5.40) m/uL Hgb 9.0 L (11.4-16.0) gm/dL Hct 27.7 L (34.0-46.0) % Plt Count 189 (150-450) k/uL Comprehensive Metabolic Panel 07/31/23 Range/Units 06:55 Sodium 135 L (137-145) mmol/L Potassium 3.3 L (3.5-5.1) mmol/L Chloride 108 H (98-107) mmol/L Carbon Dioxide 20 L (22-30) mmol/L BUN 31 H (7-17) mg/dL Creatinine 1.54 H (0.52-1.04) mg/dL Glucose 105 H (74-99) mg/dL Calcium 7.5 L (8.4-10.2) mg/dL Current Medications Generic Name Dose Route Start Last Admin Trade Name Freq PRN Reason Stop Dose Admin Acetaminophen 650 mg 07/30/23 01:04 07/31/23 01:53 Acetaminophen Tab 325 Mg Tab PO 650 mg Q6HR PRN Administration Mild Pain or Fever > 100.5 Atorvastatin Calcium 10 mg 07/31/23 09:00 07/31/23 08:50 Atorvastatin 10 Mg Tab PO 10 mg DAILY HILDA Administration Folic Acid 1 mg 07/30/23 12:00 07/30/23 12:47 Folic Acid 1 Mg Tab PO 1 mg DAILY@1200 [facility] Administration Piperacillin Sod/Tazobactam 100 mls @ 25 mls/hr 07/30/23 09:00 07/31/23 08:50 Sod 3.375 gm/ Sodium Chloride IVPB 25 mls/hr Q8H [facility] Administration Protocol Sodium Chloride 1,000 mls @ 75 mls/hr 07/30/23 09:45 07/30/23 23:45 Saline 0.9% IV Not Given .[id number] [facility] Insulin Aspart 6 unit 07/30/23 12:30 07/31/23 07:16 Insulin Aspart (Novolog) 100 Unit/Ml Vial SQ Not Given TID-W/MEALS [facility] Insulin Detemir 16 unit 07/30/23 21:00 07/30/23 21:25 Insulin Detemir (Levemir) 100 Unit/Ml Syr SQ 16 unit HS [facility] Administration Naloxone HCl 0.2 mg 07/30/23 01:04 Naloxone 0.4 Mg/Ml 1 Ml Vial IV Q2M PRN Opioid Reversal Sodium Bicarbonate 650 mg 07/30/23 12:00 07/30/23 12:47 Sodium Bicarbonate Tab 650 Mg Tab PO 650 mg DAILY@1200 [facility] Administration Tamsulosin HCl 0.4 mg 07/31/23 09:00 07/31/23 08:50 Tamsulosin 0.4 Mg Cap.Er.24h PO 0.4 mg DAILY [facility]IL[facility] Administration Intake and Output 07/30/23 07/31/23 07/31/23 22:59 06:59 14:59 Output Total 700 500 Balance -700 -500 Output: Urine 700 500 Other: Voiding Method External Catheter 07/31/23 06:55 07/31/23 06:55
[2023-07-31 11:24] LABS: Glucose,Whole Blood 134 mg/dL (70-110)
[2023-07-31] MEDS ORDERED: Potassium Replacement Protocol 1 EACH MISC MISCELLANE PRN (11:59)
--- NOTE | 2023-07-31 12:03 | P.PN ---
Subjective Progress Note Date: 07/31/23 Principal diagnosis: Left foot ischemia Patient seen and examined today as a follow-up. She underwent arterial ultrasound yesterday of bilateral lower extremities which shows below knee disease. Patient denies any pain. She is afebrile. Cardiology is following for atrial fibrillation with slow ventricular rate. IV heparin is started,, they report patient is stable from a cardiac perspective. Objective - Vital Signs Vital signs: Vital Signs Temp 98.1 F 07/31/23 08:00 Pulse 60 07/31/23 08:54 Resp 18 07/31/23 08:00 BP 135/56 07/31/23 08:00 Pulse Ox 100 07/31/23 08:00 FiO2 Intake & Output 07/30/23 07/31/23 07/31/23 18:59 06:59 18:59 Output Total 700 500 Balance -700 -500 Weight 69.853 kg Output: Urine 700 500 Other: Voiding Method External Catheter External Catheter - Exam General appearance: The patient is alert, oriented, appears in no acute distress. Obese. HET: Head is normocephalic and atraumatic.. Neck: Supple. Abdomen: Soft, nontender, nondistended. Extremities: Left lower extremity warm to the touch to the ankle, TMA site with ischemic changes. Cool to the touch. Right lateral aspect of ankle with ulcer, good granulation. No drainage or foul odor noted. Neurological: No focal deficits. - Labs CBC & Chem 7: 07/31/23 09:23 07/31/23 06:55 Labs: Abnormal Lab Results - Last 24 Hours (Table) 07/30/23 07/30/23 07/30/23 Range/Units 12:29 16:27 20:40 WBC (3.8-10.6) k/uL RBC (3.80-5.40) m/uL Hgb (11.4-16.0) gm/dL Hct (34.0-46.0) % Neutrophils # (1.3-7.7) k/uL Lymphocytes # (1.0-4.8) k/uL PT (10.0-12.5) sec INR (<1.2) Sodium (137-145) mmol/L Potassium (3.5-5.1) mmol/L Chloride (98-107) mmol/L Carbon Dioxide (22-30) mmol/L BUN (7-17) mg/dL Creatinine (0.52-1.04) mg/dL Glucose (74-99) mg/dL POC Glucose (mg/dL) 238 H 207 H 170 H (70-110) mg/dL Calcium (8.4-10.2) mg/dL 07/31/23 07/31/23 07/31/23 Range/Units 06:03 06:55 06:55 WBC 10.8 H (3.8-10.6) k/uL RBC 2.95 L (3.80-5.40) m/uL Hgb 9.0 L (11.4-16.0) gm/dL Hct 27.7 L (34.0-46.0) % Neutrophils # 8.8 H (1.3-7.7) k/uL Lymphocytes # 0.9 L (1.0-4.8) k/uL PT (10.0-12.5) sec INR (<1.2) Sodium 135 L (137-145) mmol/L Potassium 3.3 L (3.5-5.1) mmol/L Chloride 108 H (98-107) mmol/L Carbon Dioxide 20 L (22-30) mmol/L BUN 31 H (7-17) mg/dL Creatinine 1.54 H (0.52-1.04) mg/dL Glucose 105 H (74-99) mg/dL POC Glucose (mg/dL) 63 L (70-110) mg/dL Calcium 7.5 L (8.4-10.2) mg/dL 07/31/23 07/31/23 07/31/23 Range/Units 09:23 09:23 11:22 WBC 11.8 H (3.8-10.6) k/uL RBC 3.09 L (3.80-5.40) m/uL Hgb 9.5 L (11.4-16.0) gm/dL Hct 28.9 L (34.0-46.0) % Neutrophils # 9.8 H (1.3-7.7) k/uL Lymphocytes # (1.0-4.8) k/uL PT 13.0 H (10.0-12.5) sec INR 1.2 H (<1.2) Sodium (137-145) mmol/L Potassium (3.5-5.1) mmol/L Chloride (98-107) mmol/L Carbon Dioxide (22-30) mmol/L BUN (7-17) mg/dL Creatinine (0.52-1.04) mg/dL Glucose (74-99) mg/dL POC Glucose (mg/dL) 134 H (70-110) mg/dL Calcium (8.4-10.2) mg/dL Assessment and Plan Assessment: 1. Ischemic changes to left TMA site 2. 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 Peripheral arterial disease, below-knee 4. Right ankle diabetic ulcer 5. Atrial fibrillation on Xarelto 6. Diabetes mellitus 7. Peripheral neuropathy Plan: 1. Lower extremity arterial ultrasound ordered and reviewed, left lower extremity with below the knee arterial disease 2. Continue with recommendations from infectious disease 3. After reviewing arterial study patient had not been able to heal any would likely wound at the foot level and would recommend proceeding with a below the knee amputation. 4. Patient will tentatively be scheduled for left below the knee amputation will have , further discussion with patient and family. Thank you for this consultation, we will continue to follow. The impression and plan of care has been dictated as directed. Dr. Lopez I performed a history and examination of this patient, discussed the same with the dictator. I agree with the dictator's note ,documented as a scribe. Any additional findings or plans will be noted.
[2023-07-31] MEDS: POTASSIUM CHLORIDE ER 20 MEQ TAB.ER PO SCH (12:08)
--- NOTE | 2023-07-31 15:41 | P.PN ---
Subjective Progress Note Date: 07/31/23 Principal diagnosis: Reason for follow-up is left diabetic foot wound and gangrene Patient is a 83-year-old female with a past medical history significant for diabetes mellitus hypertension atrial fibrillation heart failure patient did have history of left diabetic foot infection requiring transmetatarsal amputation and did have a chronic nonhealing wound on the plan tar aspect of the left foot patient now presenting to the hospital with discoloration to the left foot. On today's evaluation that is 07/31/2023, the patient continues to be afebrile, the patient is on room air and breathing comfortably, the Pt denies having any chest pain or cough, the patient denies having any abdominal pain no vomiting or any diarrhea has been reported by the nursing staff, patient denies pain to the left foot. Patient white count is 11.8 creatinine is 1.54 blood cultures pending Objective - Vital Signs Vital signs: Vital Signs Temp 98.1 F 07/31/23 08:00 Pulse 60 07/31/23 08:54 Resp 18 07/31/23 08:00 BP 135/56 07/31/23 08:00 Pulse Ox 100 07/31/23 08:00 FiO2 Intake & Output 07/30/23 07/31/23 07/31/23 18:59 06:59 18:59 Output Total 700 500 Balance -700 -500 Weight 69.853 kg Output: Urine 700 500 Other: Voiding Method External Catheter External Catheter - Exam GENERAL DESCRIPTION: An elderly female lying in bed in no distress RESPIRATORY SYSTEM: Unlabored breathing , decreased breath sounds at bases HEART: S1 S2 regular rate and rhythm , ABDOMEN: Soft , no tenderness EXTREMITIES: Left transmetatarsal amputation did have some discoloration foot is cold no foul-smelling drainage - Labs CBC & Chem 7: 07/31/23 09:23 07/31/23 06:55 Labs: Abnormal Lab Results - Last 24 Hours (Table) 07/30/23 07/30/23 07/31/23 Range/Units 16:27 20:40 06:03 WBC (3.8-10.6) k/uL RBC (3.80-5.40) m/uL Hgb (11.4-16.0) gm/dL Hct (34.0-46.0) % Neutrophils # (1.3-7.7) k/uL Lymphocytes # (1.0-4.8) k/uL PT (10.0-12.5) sec INR (<1.2) Sodium (137-145) mmol/L Potassium (3.5-5.1) mmol/L Chloride (98-107) mmol/L Carbon Dioxide (22-30) mmol/L BUN (7-17) mg/dL Creatinine (0.52-1.04) mg/dL Glucose (74-99) mg/dL POC Glucose (mg/dL) 207 H 170 H 63 L (70-110) mg/dL Calcium (8.4-10.2) mg/dL 07/31/23 07/31/23 07/31/23 Range/Units 06:55 06:55 09:23 WBC 10.8 H 11.8 H (3.8-10.6) k/uL RBC 2.95 L 3.09 L (3.80-5.40) m/uL Hgb 9.0 L 9.5 L (11.4-16.0) gm/dL Hct 27.7 L 28.9 L (34.0-46.0) % Neutrophils # 8.8 H 9.8 H (1.3-7.7) k/uL Lymphocytes # 0.9 L (1.0-4.8) k/uL PT (10.0-12.5) sec INR (<1.2) Sodium 135 L (137-145) mmol/L Potassium 3.3 L (3.5-5.1) mmol/L Chloride 108 H (98-107) mmol/L Carbon Dioxide 20 L (22-30) mmol/L BUN 31 H (7-17) mg/dL Creatinine 1.54 H (0.52-1.04) mg/dL Glucose 105 H (74-99) mg/dL POC Glucose (mg/dL) (70-110) mg/dL Calcium 7.5 L (8.4-10.2) mg/dL 07/31/23 07/31/23 Range/Units 09:23 11:22 WBC (3.8-10.6) k/uL RBC (3.80-5.40) m/uL Hgb (11.4-16.0) gm/dL Hct (34.0-46.0) % Neutrophils # (1.3-7.7) k/uL Lymphocytes # (1.0-4.8) k/uL PT 13.0 H (10.0-12.5) sec INR 1.2 H (<1.2) Sodium (137-145) mmol/L Potassium (3.5-5.1) mmol/L Chloride (98-107) mmol/L Carbon Dioxide (22-30) mmol/L BUN (7-17) mg/dL Creatinine (0.52-1.04) mg/dL Glucose (74-99) mg/dL POC Glucose (mg/dL) 134 H (70-110) mg/dL Calcium (8.4-10.2) mg/dL Assessment and Plan (1) Gangrene of left foot Current Visit: Yes Status: Acute Code(s): I96 - GANGRENE, NOT ELSEWHERE CLASSIFIED SNOMED Code(s): 06182765991817395 (2) Diabetic infection of left foot Current Visit: Yes Status: Acute Code(s): E11.628 - TYPE 2 DIABETES MELLITUS WITH OTHER SKIN COMPLICATIONS; L08.9 - LOCAL INFECTION OF THE SKIN AND SUBCUTANEOUS TISSUE, UNSP SNOMED Code(s): 84394757 (3) Diabetic foot ulcer Current Visit: No Status: Acute Code(s): E11.621 - TYPE 2 DIABETES MELLITUS WITH FOOT ULCER; L97.509 - NON-PRESSURE CHRONIC ULCER OTH PRT UNSP FOOT W UNSP SEVERITY SNOMED Code(s): 261614785 Plan: 1patient presented to hospital with left diabetic foot infection in this patient who did have a chronic nonhealing wound on the plantar aspect however features are mostly suggestive of ischemia on today's visit last culture positive for Pseudomonas E. coli anaerobes 2-patient has been eval by vascular surgery recommending left below the knee amputation awaiting family decision 3-we will continue patient on Zosyn and monitor clinical course closely Family at bedside questions answered Dictation was produced using [email or web address] dictation software. please excuse any grammatical, word or spelling errors. Time with Patient: Less than 30
[2023-07-31 16:33] LABS: Glucose,Whole Blood 194 mg/dL (70-110)
[2023-07-31 20:06] LABS: Glucose,Whole Blood 160 mg/dL (70-110)
--- NOTE | 2023-07-31 22:35 | P.PN ---
Subjective Progress Note Date: 07/31/23 Patient is a 83-year-old female presents to ER with complaints of left foot discoloration and wound on the plantar aspect at the amputation site with minimal discharge. Worsening symptoms since last Sunday. Patient was also complaining of subjective fevers and chills last night. Patient otherwise den ies any pain. Denies any chest pain or shortness of breath. Denies any recent trauma/injury. Patient does have a history of left metatarsal amputation, atrial fibrillation on anticoagulation with Xarelto, hypertension, diabetes type 2 insulin- dependent, diabetic peripheral neuropathy and chronic kidney disease stage III. On admission foot x-ray showed extensive postsurgical changes, soft tissue point vascular calcifications compatible with diabetes and MRI is advised to assess for relief/osteomyelitis. Admission Tmax 99.8 and patient was tachycardic Laboratory data showed WBC 20.0 hemoglobin 10.6 and platelets 217 Sodium 128 potassium 4.4 chloride 98 bicarb is 20 BUN 14 creatinine 1.82 and blood sugar 104 and lactic acid 1.6 magnesium 1.7 07/31/2023 Patient is seen in follow-up this morning with multiple family members at the bedside awaiting vascular surgery. Vascular surgery has evaluated the patient today likely discussing left below the knee amputation. Patient also being foll owed by infectious disease maintained on IV antibiotics and will continue for now. Family making the decision further if they want to proceed with BKA. Patient is afebrile with no reported chest pain or shortness of breath. Patient denies any pain and reports to tolerating diet with no nausea or vomiting. continue monitoring blood sugars closely and adjust accordingly as patient did have low blood sugar reading this morning. Review of systems: Constitutional: No reports of fatigue, fever, or chills Cardiovascular: No reports of chest pain or palpitations Respiratory: No reports of shortness of breath or cough GI: No reports of nausea, vomiting, or diarrhea : No reports of dysuria or retention Neurovascular: reports of generalized weakness All medications have been reviewed PHYSICAL EXAMINATION: Patient is lying in the bed comfortably, no acute distress, awake alert and oriented.. HEENT: Normocephalic. Neck is supple. Pupils reactive. Nostrils clear. Oral cavity is moist. Neck reveals no JVD, carotid bruits, or thyromegaly. CHEST EXAMINATION: Trachea is central. Symmetrical expansion. Lung natarajan clear to auscultation and percussion. CARDIAC: Normal S1, S2 with no gallops. No murmurs ABDOMEN: Soft. Bowel sounds normal. No organomegaly. No abdominal bruits. Extremities: Left foot TMA site with bluish discoloration and open wound on the plantar aspect. Minimal discharge.. No clubbing or cyanosis Neurologically awake, alert, oriented x3 with well-coordinated movements. No focal deficits noted, diffusely weak Skin: No rash or skin lesions. Psychiatric: Cooperative. Non-suicidal Musculoskeletal: No joint swelling or deformity. Normal range of motion. Assessment: Left foot ischemia with soft tissue swelling/cellulitis at the amputation site with open wound on the lateral plantar aspect and minimal discharge. Sepsis secondary to above Nonhealing left foot wound Hypovolemic hyponatremia, improving Acute on chronic kidney disease stage III due to diabetic nephrosclerosis History of left TMA Peripheral vascular disease Diabetes type 2 insulin-dependent Severe peripheral neuropathy Paroxysmal atrial fibrillation on anticoagulation with Xarelto, currently transition to heparin in the event patient is going to have surgery GI prophylaxis DVT prophylaxis No code Plan: Patient will be continued on IV antibiotics Zosyn with infectious disease foll owing Left lower extremity arterial duplex scan was ordered and vascular surgery following discussing likely below the knee amputation. Awaiting family decision and to discuss further with Dr. Don. Monitor renal function and will follow-up on repeat labs Continue monitoring Accu-Cheks before meals and at bedtime and adjust insulins accordingly as patient has been having lower blood sugars in the morning. Patient will be n.p.o. at midnight recommend monitoring Accu-Cheks throughout the night as patient does experience hypoglycemia Blood pressure medications on hold currently due to hypotension. Xarelto is on hold due to possible surgical intervention and is continued on IV heparin Due to multiple complex medical issues, prognosis is guarded The impression and plan of care has been dictated by Mildred Swift, Nurse Practitioner as directed. Dr. Wil MD I have performed a history and examination and MDM of this patient, discussed the same with the dictator, and agree with the dictator's assessment and plan as written ,documented as a scribe. Based on total visit time, I have performed more than 50% of the visit. Objective - Vital Signs Vital signs: Vital Signs Temp 98.1 F 07/31/23 08:00 Pulse 60 07/31/23 08:54 Resp 18 07/31/23 08:00 BP 135/56 07/31/23 08:00 Pulse Ox 100 07/31/23 08:00 FiO2 Intake & Output 07/30/23 07/31/23 07/31/23 18:59 06:59 18:59 Output Total 700 500 Balance -700 -500 Weight 69.853 kg Output: Urine 700 500 Other: Voiding Method External Catheter External Catheter - Labs CBC & Chem 7: 07/31/23 09:23 07/31/23 06:55 Labs: Abnormal Lab Results - Last 24 Hours (Table) 07/30/23 07/30/23 07/30/23 Range/Units 12:29 16:27 20:40 WBC (3.8-10.6) k/uL RBC (3.80-5.40) m/uL Hgb (11.4-16.0) gm/dL Hct (34.0-46.0) % Neutrophils # (1.3-7.7) k/uL Lymphocytes # (1.0-4.8) k/uL Sodium (137-145) mmol/L Potassium (3.5-5.1) mmol/L Chloride (98-107) mmol/L Carbon Dioxide (22-30) mmol/L BUN (7-17) mg/dL Creatinine (0.52-1.04) mg/dL Glucose (74-99) mg/dL POC Glucose (mg/dL) 238 H 207 H 170 H (70-110) mg/dL Calcium (8.4-10.2) mg/dL 07/31/23 07/31/23 07/31/23 Range/Units 06:03 06:55 06:55 WBC 10.8 H (3.8-10.6) k/uL RBC 2.95 L (3.80-5.40) m/uL Hgb 9.0 L (11.4-16.0) gm/dL Hct 27.7 L (34.0-46.0) % Neutrophils # 8.8 H (1.3-7.7) k/uL Lymphocytes # 0.9 L (1.0-4.8) k/uL Sodium 135 L (137-145) mmol/L Potassium 3.3 L (3.5-5.1) mmol/L Chloride 108 H (98-107) mmol/L Carbon Dioxide 20 L (22-30) mmol/L BUN 31 H (7-17) mg/dL Creatinine 1.54 H (0.52-1.04) mg/dL Glucose 105 H (74-99) mg/dL POC Glucose (mg/dL) 63 L (70-110) mg/dL Calcium 7.5 L (8.4-10.2) mg/dL 07/31/23 Range/Units 09:23 WBC 11.8 H (3.8-10.6) k/uL RBC 3.09 L (3.80-5.40) m/uL Hgb 9.5 L (11.4-16.0) gm/dL Hct 28.9 L (34.0-46.0) % Neutrophils # 9.8 H (1.3-7.7) k/uL Lymphocytes # (1.0-4.8) k/uL Sodium (137-145) mmol/L Potassium (3.5-5.1) mmol/L Chloride (98-107) mmol/L Carbon Dioxide (22-30) mmol/L BUN (7-17) mg/dL Creatinine (0.52-1.04) mg/dL Glucose (74-99) mg/dL POC Glucose (mg/dL) (70-110) mg/dL Calcium (8.4-10.2) mg/dL
[2023-08-01 01:31] LABS: Glucose,Whole Blood 137 mg/dL (70-110)
[2023-08-01 03:16] LABS: Basophils % (A) 0 %; Eosinophils # (A) 0.1 k/uL (0-0.7); Eosinophils % (A) 1 %; HCT 26.4 % (34.0-46.0); HGB 8.9 gm/dL (11.4-16.0); Lymphocytes # (A) 1.1 k/uL (1.0-4.8); Lymphocytes % (A) 9 %; MCHC 33.5 g/dL (31.0-37.0); MCV 92.4 fL (80.0-100.0); Mean Platelet Volume 9.1; Monocytes # (A) 0.7 k/uL (0-1.0); Monocytes % (A) 6 %; Neutrophils # (A) 9.7 k/uL (1.3-7.7); Neutrophils % (A) 82 %; Platelet Count 190 k/uL (150-450); RBC 2.86 m/uL (3.80-5.40); RDW 13.6 % (11.5-15.5); WBC 11.9 k/uL (3.8-10.6)
[2023-08-01 03:57] LABS: African American GFR (CKD) 38 (>60 ml/min/1.73 sqM); Anion Gap 4 mmol/L; Blood Urea Nitrogen 24 mg/dL (7-17); Calcium 7.7 mg/dL (8.4-10.2); Carbon Dioxide 18 mmol/L (22-30); Chloride 113 mmol/L (98-107); Glucose 92 mg/dL (74-99); Magnesium 1.9 mg/dL (1.6-2.3); Non-African American GFR(CKD) 33 (>60 ml/min/1.73 sqM); Sodium 135 mmol/L (137-145)
[2023-08-01 04:03] LABS: INR 1.3 (<1.2); Prothrombin Time 13.4 sec (10.0-12.5)
[2023-08-01 06:07] LABS: Glucose,Whole Blood 54 mg/dL (70-110)
[2023-08-01 06:22] LABS: Glucose,Whole Blood 74 mg/dL (70-110)
[2023-08-01 11:46] LABS: Glucose,Whole Blood 225 mg/dL (70-110)
--- NOTE | 2023-08-01 12:19 | P.CONS ---
History of Present Illness - Reason for Consult Consult date: 08/01/23 wound care - History of Present Illness This is an 83-year-old patient being seen on 3 S. for nonhealing ulceration to the right lateral malleolus. The ulceration measures approximately 3 x 2.5 x 0.2 cm with rolled edges significant slough and nonviable tissue noted within the wound bed and minimal granulation. Patient states that the ulceration has been there for approximately 6 months. She follows with Dr. Campos who has been applying Silvadene and Hydrofera Blue to the site. Patient also has a ulceration to the amputation site of the left foot. She is scheduled to have further amputation tomorrow. Patient's past medical history significant for atrial fibrillation, heart failure, diabetes, hypertension, chronic kidney disease Review Of Systems: Constitutional: No fever, no chills, no night sweats. No weight change. No weakness, fatigue or lethargy. No daytime sleepiness. Integumentary:reports wounds, no lesions. No rash or pruritus. No unusual bruising. No change in hair or nails Physical exam: General Appearance: Alert, cooperative, no distress, appears stated age. Skin: See HPI all other Skin color, texture, tugor normal, no rashes or lesions. Neurologic: Alert oriented x3 Assessment: 1. Nonhealing ulceration with fat layer exposure right lateral ankle 2. Nonhealing ulceration left Plantar foot with bone necrosis 3. Diabetic foot ulcer Thank you for the the consultation any questions please contact the wound care center DNP note has been reviewed and discussed with Dr. Ricks and the impression and plan of care has been directed as dictated. Past Medical History Past Medical History: Atrial Fibrillation, Heart Failure, Diabetes Mellitus, Hypertension, Renal Disease Additional Past Medical History / Comment(s): wound rt foot and rt chin, wound to left pinkey, bilateral toes amputation, kidney failure, CHF, "slight stroke" 10years ago, History of Any Multi-Drug Resistant Organisms: None Reported Past Surgical History: Cholecystectomy Additional Past Surgical History / Comment(s): left foot all toes amputated 2021; hematoma removal abdomen Past Anesthesia/Blood Transfusion Reactions: No Reported Reaction Past Psychological History: No Psychological Hx Reported Smoking Status: Never smoker Past Alcohol Use History: None Reported Past Drug Use History: None Reported - Past Family History Sister(s) Family Medical History: Cancer Brother(s) Family Medical History: Cancer Medications and Allergies Home Medications Medication Instructions Recorded Confirmed Type Rivaroxaban [Xarelto] 15 mg PO DAILY 06/28/21 07/30/23 History Folic Acid 1 mg PO DAILY@1200 02/20/22 07/30/23 History Potassium Chloride ER [K-Dur 10] 10 meq PO DAILY@1200 02/20/22 07/30/23 History Tamsulosin HCl [Flomax] 0.4 mg PO DAILY 02/20/22 07/30/23 History amLODIPine [Norvasc] 5 mg PO DAILY 30 Days #30 tab 02/23/22 07/30/23 Rx hydrALAZINE HCL [Apresoline] 25 mg PO BID 30 Days #60 tab 02/23/22 07/30/23 Rx Empagliflozin [Jardiance] 10 mg PO DAILY 04/26/22 07/30/23 History Furosemide [Lasix] 20 mg PO DAILY 04/26/22 07/30/23 History Simvastatin [Zocor] 10 mg PO DAILY 04/26/22 07/30/23 History Insulin Aspart [NovoLOG Flexpen] 6 units SQ TID-W/MEALS 11/07/22 07/30/23 History Insulin Aspart [NovoLOG Flexpen] See Protocol SQ TID-W/MEALS PRN 11/07/22 History Insulin Glargine,Hum.rec.anlog 16 units SQ HS 11/07/22 07/30/23 History [Lantus Solostar Pen] Acetaminophen Tab [Tylenol] 650 mg PO Q6HR PRN tab 11/09/22 07/30/23 Rx Sodium Bicarbonate Tab 650 mg PO DAILY@1200 07/30/23 07/30/23 History Allergies Allergy/AdvReac Type Severity Reaction Status Date / Time aspirin Allergy Anaphylaxis Verified 07/30/23 08:27 Physical Exam Vitals: Vital Signs Temp Pulse Pulse Resp BP Pulse Ox 08/01/23 10:20 98.1 F 66 16 165/79 100 08/01/23 04:00 98.4 F 70 18 150/67 98 08/01/23 00:00 102.3 F H 72 16 165/61 97 07/31/23 20:00 99.4 F 70 16 152/70 98 07/31/23 14:00 98.0 F 78 16 154/78 98 Intake and Output 07/31/23 08/01/23 08/01/23 22:59 06:59 14:59 Intake Total 1550.173 253.602 Output Total 200 Balance 1550.173 -200 253.602 Intake: Intake, IV Titration 952.173 135.602 Amount Heparin Sod,Pork in 0.45% 152.173 135.602 NaCl 25,000 unit In 0.45 % NaCl 1 250ml.bag @ 12 UNITS/KG/HR 8.382 mls/hr IV .Q24H [facility] Rx#: [id number] Piperacillin-Tazobactam 3 200 .375 gm In Sodium Chloride 0.9% 100 ml @ 25 mls/hr IVPB Q8H [facility] Rx#: [id number] Sodium Chloride 0.9% 1, 600 000 ml @ 75 mls/hr IV . [id number] [facility] Rx#:[id number] Oral 598 118 Output: Urine 200 Other: Voiding Method External Catheter External Catheter # Voids 1 Results CBC & Chem 7: 08/01/23 02:58 08/01/23 02:58 Labs: Abnormal Lab Results - Last 24 Hours (Table) 07/31/23 07/31/23 07/31/23 Range/Units 15:50 16:31 20:03 WBC (3.8-10.6) k/uL RBC (3.80-5.40) m/uL Hgb (11.4-16.0) gm/dL Hct (34.0-46.0) % Neutrophils # (1.3-7.7) k/uL PT (10.0-12.5) sec INR (<1.2) APTT 37.9 H (22.0-30.0) sec Sodium (137-145) mmol/L Chloride (98-107) mmol/L Carbon Dioxide (22-30) mmol/L BUN (7-17) mg/dL Creatinine (0.52-1.04) mg/dL POC Glucose (mg/dL) 194 H 160 H (70-110) mg/dL Calcium (8.4-10.2) mg/dL 08/01/23 08/01/23 08/01/23 Range/Units 01:29 02:58 02:58 WBC 11.9 H (3.8-10.6) k/uL RBC 2.86 L (3.80-5.40) m/uL Hgb 8.9 L (11.4-16.0) gm/dL Hct 26.4 L (34.0-46.0) % Neutrophils # 9.7 H (1.3-7.7) k/uL PT 13.4 H (10.0-12.5) sec INR 1.3 H (<1.2) APTT (22.0-30.0) sec Sodium (137-145) mmol/L Chloride (98-107) mmol/L Carbon Dioxide (22-30) mmol/L BUN (7-17) mg/dL Creatinine (0.52-1.04) mg/dL POC Glucose (mg/dL) 137 H (70-110) mg/dL Calcium (8.4-10.2) mg/dL 08/01/23 08/01/23 08/01/23 Range/Units 02:58 02:58 06:03 WBC (3.8-10.6) k/uL RBC (3.80-5.40) m/uL Hgb (11.4-16.0) gm/dL Hct (34.0-46.0) % Neutrophils # (1.3-7.7) k/uL PT (10.0-12.5) sec INR (<1.2) APTT 46.9 H (22.0-30.0) sec Sodium 135 L (137-145) mmol/L Chloride 113 H (98-107) mmol/L Carbon Dioxide 18 L (22-30) mmol/L BUN 24 H (7-17) mg/dL Creatinine 1.49 H (0.52-1.04) mg/dL POC Glucose (mg/dL) 54 L (70-110) mg/dL Calcium 7.7 L (8.4-10.2) mg/dL 08/01/23 Range/Units 11:44 WBC (3.8-10.6) k/uL RBC (3.80-5.40) m/uL Hgb (11.4-16.0) gm/dL Hct (34.0-46.0) % Neutrophils # (1.3-7.7) k/uL PT (10.0-12.5) sec INR (<1.2) APTT (22.0-30.0) sec Sodium (137-145) mmol/L Chloride (98-107) mmol/L Carbon Dioxide (22-30) mmol/L BUN (7-17) mg/dL Creatinine (0.52-1.04) mg/dL POC Glucose (mg/dL) 225 H (70-110) mg/dL Calcium (8.4-10.2) mg/dL Microbiology - Last 24 Hours (Table) 07/30/23 00:45 Blood Culture - Preliminary Blood 07/30/23 00:30 Blood Culture - Preliminary Blood Assessment and Plan (1) Non-pressure chronic ulcer of other part of left foot with necrosis of bone Current Visit: Yes Status: Acute Code(s): L97.524 - NON-PRS CHRONIC ULCER OTH PRT LEFT FOOT W NECROSIS OF BONE SNOMED Code(s): 72773264106299778 (2) Non-pressure chronic ulcer of right ankle with fat layer exposed Current Visit: Yes Status: Acute Code(s): L97.312 - NON-PRS CHRONIC ULCER OF RIGHT ANKLE W FAT LAYER EXPOSED SNOMED Code(s): 46095123517407467 (3) Diabetic ulcer of left foot Current Visit: No Status: Acute Code(s): E11.621 - TYPE 2 DIABETES MELLITUS WITH FOOT ULCER; L97.529 - NON-PRESSURE CHRONIC ULCER OTH PRT LEFT FOOT W UNSP SEVERITY SNOMED Code(s): 174964847
[2023-08-01] MEDS: hydrALAZINE HCL 25 MG TAB PO SCH (13:15)
--- NOTE | 2023-08-01 15:17 | P.PN ---
Subjective Progress Note Date: 08/01/23 Principal diagnosis: Left foot ischemia Patient seen and examined today as a follow-up. No acute changes through the night. Awaiting patient and family decision moving forward with possible below the knee amputation. Objective - Vital Signs Vital signs: Vital Signs Temp 98.1 F 08/01/23 10:20 Pulse 66 08/01/23 10:20 Resp 16 08/01/23 10:20 BP 165/79 08/01/23 10:20 Pulse Ox 100 08/01/23 10:20 FiO2 Intake & Output 07/31/23 08/01/23 08/01/23 18:59 06:59 18:59 Intake Total 1463 87.173 371.602 Output Total 550 200 Balance 913 -112.827 371.602 Intake: Intake, IV Titration 865 87.173 135.602 Amount Heparin Sod,Pork in 0.45% 65 87.173 135.602 NaCl 25,000 unit In 0.45 % NaCl 1 250ml.bag @ 12 UNITS/KG/HR 8.382 mls/hr IV .Q24H [facility] Rx#: [id number] Piperacillin-Tazobactam 3 200 .375 gm In Sodium Chloride 0.9% 100 ml @ 25 mls/hr IVPB Q8H [facility] Rx#: [id number] Sodium Chloride 0.9% 1, 600 000 ml @ 75 mls/hr IV . [id number] [facility] Rx#:[id number] Oral 598 236 Output: Urine 550 200 Other: Voiding Method External Catheter External Catheter # Voids 1 3 # Bowel Movements 2 - Exam General appearance: The patient is alert, oriented, appears in no acute distress. Obese. HET: Head is normocephalic and atraumatic.. Neck: Supple. Abdomen: Soft, nontender, nondistended. Extremities: Left lower extremity warm to the touch to the ankle, TMA site with ischemic changes. Cool to the touch. Right lateral aspect of ankle with ulcer, good granulation. No drainage or foul odor noted. Neurological: No focal deficits. - Labs CBC & Chem 7: 08/01/23 02:58 08/01/23 02:58 Labs: Abnormal Lab Results - Last 24 Hours (Table) 07/31/23 07/31/23 07/31/23 Range/Units 15:50 16:31 20:03 WBC (3.8-10.6) k/uL RBC (3.80-5.40) m/uL Hgb (11.4-16.0) gm/dL Hct (34.0-46.0) % Neutrophils # (1.3-7.7) k/uL PT (10.0-12.5) sec INR (<1.2) APTT 37.9 H (22.0-30.0) sec Sodium (137-145) mmol/L Chloride (98-107) mmol/L Carbon Dioxide (22-30) mmol/L BUN (7-17) mg/dL Creatinine (0.52-1.04) mg/dL POC Glucose (mg/dL) 194 H 160 H (70-110) mg/dL Calcium (8.4-10.2) mg/dL 08/01/23 08/01/23 08/01/23 Range/Units 01:29 02:58 02:58 WBC 11.9 H (3.8-10.6) k/uL RBC 2.86 L (3.80-5.40) m/uL Hgb 8.9 L (11.4-16.0) gm/dL Hct 26.4 L (34.0-46.0) % Neutrophils # 9.7 H (1.3-7.7) k/uL PT 13.4 H (10.0-12.5) sec INR 1.3 H (<1.2) APTT (22.0-30.0) sec Sodium (137-145) mmol/L Chloride (98-107) mmol/L Carbon Dioxide (22-30) mmol/L BUN (7-17) mg/dL Creatinine (0.52-1.04) mg/dL POC Glucose (mg/dL) 137 H (70-110) mg/dL Calcium (8.4-10.2) mg/dL 08/01/23 08/01/23 08/01/23 Range/Units 02:58 02:58 06:03 WBC (3.8-10.6) k/uL RBC (3.80-5.40) m/uL Hgb (11.4-16.0) gm/dL Hct (34.0-46.0) % Neutrophils # (1.3-7.7) k/uL PT (10.0-12.5) sec INR (<1.2) APTT 46.9 H (22.0-30.0) sec Sodium 135 L (137-145) mmol/L Chloride 113 H (98-107) mmol/L Carbon Dioxide 18 L (22-30) mmol/L BUN 24 H (7-17) mg/dL Creatinine 1.49 H (0.52-1.04) mg/dL POC Glucose (mg/dL) 54 L (70-110) mg/dL Calcium 7.7 L (8.4-10.2) mg/dL 08/01/23 Range/Units 11:44 WBC (3.8-10.6) k/uL RBC (3.80-5.40) m/uL Hgb (11.4-16.0) gm/dL Hct (34.0-46.0) % Neutrophils # (1.3-7.7) k/uL PT (10.0-12.5) sec INR (<1.2) APTT (22.0-30.0) sec Sodium (137-145) mmol/L Chloride (98-107) mmol/L Carbon Dioxide (22-30) mmol/L BUN (7-17) mg/dL Creatinine (0.52-1.04) mg/dL POC Glucose (mg/dL) 225 H (70-110) mg/dL Calcium (8.4-10.2) mg/dL Microbiology - Last 24 Hours (Table) 07/30/23 00:45 Blood Culture - Preliminary Blood 07/30/23 00:30 Blood Culture - Preliminary Blood Assessment and Plan Assessment: 1. Ischemic changes to left TMA site 2. 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 Peripheral arterial disease, below-knee 4. Right ankle diabetic ulcer 5. Atrial fibrillation on Xarelto 6. Diabetes mellitus 7. Peripheral neuropathy Plan: 1. Lower extremity arterial ultrasound ordered and reviewed, left lower extremity with below the knee arterial disease 2. Continue with recommendations from infectious disease 3. After reviewing arterial study, patient likely will not been able to heal any wound at the foot level and would recommend proceeding with a below the knee amputation. 4. Patient is tentatively be scheduled for left below the knee amputation. Vascular surgeon to discuss further with patient and family before proceeding. Thank you for this consultation, we will continue to follow. The impression and plan of care has been dictated as directed. Dr. Don I performed a history and examination of this patient, discussed the same with the dictator. I agree with the dictator's note ,documented as a scribe. Any additional findings or plans will be noted.
--- NOTE | 2023-08-01 15:19 | P.PN ---
Subjective Progress Note Date: 08/01/23 HISTORY OF PRESENT ILLNESS: This is a 83-year-old female with a past medical history significant for hy pertension, hyperlipidemia, congestive heart failure, diabetes, permanent atrial fibrillation, peripheral vascular disease, and previous left transmetatarsal amputation. Patient follows in the office with Dr. Ureña. We have been asked to see the patient in consultation for atrial fibrillation. Patient examined at the bedside. Patients family is present. Patient presented to the hospital due to sk in discoloration of her left lower extremity. She is currently being followed by infectious disease and vascular medicine. Patient denies any chest pain or pressure. She denies any shortness of breath. Patient is in atrial fibrillation with slow ventricular rate. This is chronic for the patient and not anything new. She is normally anticoagulated with Xarelto which is currently on hold. DIAGNOSTICS: - Laboratory data: WBC 11.8. Hemoglobin 9.5. Platelet count 177. Sodium 135. Potassium 3.3. BUN 31. Creatinine 1.54. - Current home cardiac medications include Jardiance 10 mg daily, Lasix 20 mg daily, Xarelto 15 mg daily, simvastatin 10 mg daily, amlodipine 5 mg daily, and hydralazine 25 mg twice a day. - Most recent echocardiogram obtained in February 2022 revealed ejection fraction 50 to 55%, moderate MR, moderate TR 07/31 Patient is seen today on the cardiac stepdown unit. Vascular surgery planning for left below the knee amputation on 08/01. Blood pressure 150/67. She denies having any shortness of breath, no chest pain or no chest tightness, no dizziness. Patient remains in atrial fibrillation. PHYSICAL EXAM: VITAL SIGNS: Reviewed. GENERAL: Well-developed in no acute distress. HEENT: Head is normocephalic. Pupils are equal, round. Sclerae anicteric. Mucous membranes of the mouth are moist. Neck supple. No JVD or thyromegaly LUNGS: Respirations even and unlabored. Lungs essentially clear to auscultation bilaterally. HEART: Irregular rate and rhythm. S1 and S2 heard. Systolic murmur noted ABDOMEN: Soft. Nondistended. Nontender. EXTREMITIES: Normal range of motion. No clubbing or cyanosis. TMA noted to left foot. Dressing noted to right ankle. NEUROLOGIC: Awake and alert. Oriented x 3. ASSESSMENT: Permanent atrial fibrillation with slow ventricular rate History of nonhealing wound to left TMA site now with ischemic changes Hypertension Hyperlipidemia Congestive heart failure with preserved EF, currently euvolemic History of peripheral arterial disease Known right ankle diabetic ulcer Diabetes Peripheral neuropathy PLAN: Xarelto currently remains on hold for surgical intervention Continue IV heparin in the meantime Continue additional cardiac medications And hydralazine 25 mg 3 times daily patient is currently stable from a cardiac perspective Further recommendations pending patient course Nurse practitioner note has been reviewed by physician. Signing provider agrees with the documented findings, assessment, and plan of care documented by [employer] as a scribe. Objective - Vital Signs Vital signs: Vital Signs Temp 98.4 F 08/01/23 04:00 Pulse 70 08/01/23 04:00 Resp 18 08/01/23 04:00 BP 150/67 08/01/23 04:00 Pulse Ox 98 08/01/23 04:00 FiO2 Intake & Output 07/31/23 08/01/23 08/01/23 18:59 06:59 18:59 Intake Total 1463 87.173 253.602 Output Total 550 200 Balance 913 -112.827 253.602 Intake: Intake, IV Titration 865 87.173 135.602 Amount Heparin Sod,Pork in 0.45% 65 87.173 135.602 NaCl 25,000 unit In 0.45 % NaCl 1 250ml.bag @ 12 UNITS/KG/HR 8.382 mls/hr IV .Q24H [facility] Rx#: [id number] Piperacillin-Tazobactam 3 200 .375 gm In Sodium Chloride 0.9% 100 ml @ 25 mls/hr IVPB Q8H [facility] Rx#: [id number] Sodium Chloride 0.9% 1, 600 000 ml @ 75 mls/hr IV . [id number] [facility] Rx#:[id number] Oral 598 118 Output: Urine 550 200 Other: Voiding Method External Catheter # Voids 1 - Labs CBC & Chem 7: 08/01/23 02:58 08/01/23 02:58 Labs: Abnormal Lab Results - Last 24 Hours (Table) 07/31/23 07/31/23 07/31/23 Range/Units 15:50 16:31 20:03 WBC (3.8-10.6) k/uL RBC (3.80-5.40) m/uL Hgb (11.4-16.0) gm/dL Hct (34.0-46.0) % Neutrophils # (1.3-7.7) k/uL PT (10.0-12.5) sec INR (<1.2) APTT 37.9 H (22.0-30.0) sec Sodium (137-145) mmol/L Chloride (98-107) mmol/L Carbon Dioxide (22-30) mmol/L BUN (7-17) mg/dL Creatinine (0.52-1.04) mg/dL POC Glucose (mg/dL) 194 H 160 H (70-110) mg/dL Calcium (8.4-10.2) mg/dL 08/01/23 08/01/23 08/01/23 Range/Units 01:29 02:58 02:58 WBC 11.9 H (3.8-10.6) k/uL RBC 2.86 L (3.80-5.40) m/uL Hgb 8.9 L (11.4-16.0) gm/dL Hct 26.4 L (34.0-46.0) % Neutrophils # 9.7 H (1.3-7.7) k/uL PT 13.4 H (10.0-12.5) sec INR 1.3 H (<1.2) APTT (22.0-30.0) sec Sodium (137-145) mmol/L Chloride (98-107) mmol/L Carbon Dioxide (22-30) mmol/L BUN (7-17) mg/dL Creatinine (0.52-1.04) mg/dL POC Glucose (mg/dL) 137 H (70-110) mg/dL Calcium (8.4-10.2) mg/dL 08/01/23 08/01/23 08/01/23 Range/Units 02:58 02:58 06:03 WBC (3.8-10.6) k/uL RBC (3.80-5.40) m/uL Hgb (11.4-16.0) gm/dL Hct (34.0-46.0) % Neutrophils # (1.3-7.7) k/uL PT (10.0-12.5) sec INR (<1.2) APTT 46.9 H (22.0-30.0) sec Sodium 135 L (137-145) mmol/L Chloride 113 H (98-107) mmol/L Carbon Dioxide 18 L (22-30) mmol/L BUN 24 H (7-17) mg/dL Creatinine 1.49 H (0.52-1.04) mg/dL POC Glucose (mg/dL) 54 L (70-110) mg/dL Calcium 7.7 L (8.4-10.2) mg/dL Microbiology - Last 24 Hours (Table) 07/30/23 00:45 Blood Culture - Preliminary Blood 07/30/23 00:30 Blood Culture - Preliminary Blood
--- NOTE | 2023-08-01 16:58 | P.PN ---
Progress Note - Text Progress Note Date: 08/01/23 Long discussion had with patient and significant amount of family members at the bedside. All questions were answered at this point she is opting to go forward with amputation. Risks and benefits were discussed including but not limited to bleeding, infection, poor wound healing, cardiopulmonary issues and need for further amputation. She seems understands and is willing to proceed. She understands that the time of surgery in the operating room all efforts are and life-saving measures and when she returns to the recovery can go back to being a no code. We discussed the plan and hope for a regional anesthesia with sedation instead of a general endotracheal. Will discuss with anesthesia. N.p.o. after midnight. Hold heparin at midnight.
[2023-08-01 17:26] LABS: Glucose,Whole Blood 172 mg/dL (70-110)
[2023-08-01 20:12] LABS: Glucose,Whole Blood 164 mg/dL (70-110)
[2023-08-01] MEDS: INSULIN DETEMIR (LEVEMIR) 100 UNIT/ML SYR SQ SCH (20:54)
[2023-08-02] MEDS: COLLAGENASE 250 UNIT/GM OINTMENT 30 GM TUBE TOPICAL SCH ×2 (00:37→21:05)
[2023-08-02 01:58] LABS: Glucose,Whole Blood 100 mg/dL (70-110)
[2023-08-02] MEDS ORDERED: DEXTROSE 50% SYRINGE 50 ML IVP PRN (04:02)
[2023-08-02 04:03] LABS: Glucose,Whole Blood 57 mg/dL (70-110)
[2023-08-02] MEDS: DEXTROSE 50% SYRINGE 50 ML IVP ONE (04:10)
[2023-08-02 04:23] LABS: Glucose,Whole Blood 126 mg/dL (70-110)
--- NOTE | 2023-08-02 05:26 | P.PN ---
Subjective Progress Note Date: 08/01/23 Patient is a 83-year-old female presents to ER with complaints of left foot discoloration and wound on the plantar aspect at the amputation site with minimal discharge. Worsening symptoms since last Sunday. Patient was also complaining of subjective fevers and chills last night. Patient otherwise den ies any pain. Denies any chest pain or shortness of breath. Denies any recent trauma/injury. Patient does have a history of left metatarsal amputation, atrial fibrillation on anticoagulation with Xarelto, hypertension, diabetes type 2 insulin- dependent, diabetic peripheral neuropathy and chronic kidney disease stage III. On admission foot x-ray showed extensive postsurgical changes, soft tissue point vascular calcifications compatible with diabetes and MRI is advised to assess for relief/osteomyelitis. Admission Tmax 99.8 and patient was tachycardic Laboratory data showed WBC 20.0 hemoglobin 10.6 and platelets 217 Sodium 128 potassium 4.4 chloride 98 bicarb is 20 BUN 14 creatinine 1.82 and blood sugar 104 and lactic acid 1.6 magnesium 1.7 07/31/2023 Patient is seen in follow-up this morning with multiple family members at the bedside awaiting vascular surgery. Vascular surgery has evaluated the patient today likely discussing left below the knee amputation. Patient also being foll owed by infectious disease maintained on IV antibiotics and will continue for now. Family making the decision further if they want to proceed with BKA. Patient is afebrile with no reported chest pain or shortness of breath. Patient denies any pain and reports to tolerating diet with no nausea or vomiting. continue monitoring blood sugars closely and adjust accordingly as patient did have low blood sugar reading this morning. 08/01/2023 Patient is seen in follow-up today and awaiting discussed with vascular surgery Dr. Don about surgical intervention and likely proceeding with left BKA. P atient is currently afebrile with no reports of chest pain or shortness of breath. Patient has been tolerating diet with no reported nausea or vomiting. Patient reports her pain is controlled at this time. Wound care also consulted for evaluation. Blood sugars have been on the lower side each night and adjusted long-acting medications. Recommend to monitor Accu-Cheks before meals and at bedtime and 2 AM as patient often becomes hypoglycemic in the middle the night. Will continue to modify insulins as needed. Review of systems: Constitutional: No reports of fatigue, fever, or chills Cardiovascular: No reports of chest pain or palpitations Respiratory: No reports of shortness of breath or cough GI: No reports of nausea, vomiting, or diarrhea : No reports of dysuria or retention Neurovascular: reports of generalized weakness All medications have been reviewed PHYSICAL EXAMINATION: Patient is sitting up in the chair comfortably, no acute distress, awake alert and oriented.. HEENT: Normocephalic. Neck is supple. Pupils reactive. Nostrils clear. Oral cavity is moist. Neck reveals no JVD, carotid bruits, or thyromegaly. CHEST EXAMINATION: Trachea is central. Symmetrical expansion. Lung natarajan clear to auscultation and percussion. CARDIAC: Normal S1, S2 with no gallops. No murmurs ABDOMEN: Soft. Bowel sounds normal. No organomegaly. No abdominal bruits. Extremities: Left foot TMA site with bluish discoloration and open wound on the plantar aspect. Minimal discharge.. No clubbing or cyanosis Neurologically awake, alert, oriented x3 with well-coordinated movements. No focal deficits noted, diffusely weak Skin: No rash or skin lesions. Psychiatric: Cooperative. Non-suicidal Musculoskeletal: No joint swelling or deformity. Normal range of motion. Assessment: Left foot ischemia with soft tissue swelling/cellulitis at the amputation site with open wound on the lateral plantar aspect and minimal discharge. Sepsis secondary to above Nonhealing left foot wound Hypovolemic hyponatremia, improving Acute on chronic kidney disease stage III due to diabetic nephrosclerosis History of left TMA Peripheral vascular disease Diabetes type 2 insulin-dependent, uncontrolled with hypoglycemia Severe peripheral neuropathy Paroxysmal atrial fibrillation on anticoagulation with Xarelto, currently continued on IV heparin as patient is scheduled to undergo BKA on the left GI prophylaxis DVT prophylaxis No code Plan: Patient will be continued on IV antibiotics Zosyn with infectious disease following Left lower extremity arterial duplex scan was ordered and vascular surgery following discussing likely below the knee amputation. Awaiting family decision and to discuss further with Dr. Don. Dr. Don met with patient and family this afternoon and patient is willing to move forward with BKA. Tentatively scheduled for 08/02/2023 Monitor renal function and will follow-up on repeat labs Continue monitoring Accu-Cheks before meals and at bedtime and at 2 AM and adjust insulins accordingly as patient has been having lower blood sugars in the morning. Patient will be n.p.o. at midnight recommend monitoring Accu-Cheks throughout the night as patient does experience hypoglycemia. Will adjust long- acting insulins further and monitor closely Blood pressure medications on hold currently due to hypotension. Xarelto is on hold due to possible surgical intervention and is continued on IV heparin Due to multiple complex medical issues, prognosis is guarded The impression and plan of care has been dictated by Mildred Swift, Nurse Practitioner as directed. Dr. Wil MD I have performed a history and examination and MDM of this patient, discussed the same with the dictator, and agree with the dictator's assessment and plan as written ,documented as a scribe. Based on total visit time, I have performed more than 50% of the visit. Objective - Vital Signs Vital signs: Vital Signs Temp 98.4 F 08/01/23 04:00 Pulse 70 08/01/23 04:00 Resp 18 08/01/23 04:00 BP 150/67 08/01/23 04:00 Pulse Ox 98 08/01/23 04:00 FiO2 Intake & Output 07/31/23 08/01/23 08/01/23 18:59 06:59 18:59 Intake Total 1463 87.173 118 Output Total 550 200 Balance 913 -112.827 118 Intake: Intake, IV Titration 865 87.173 Amount Heparin Sod,Pork in 0.45% 65 87.173 NaCl 25,000 unit In 0.45 % NaCl 1 250ml.bag @ 12 UNITS/KG/HR 8.382 mls/hr IV .Q24H [facility] Rx#: [id number] Piperacillin-Tazobactam 3 200 .375 gm In Sodium Chloride 0.9% 100 ml @ 25 mls/hr IVPB Q8H [facility] Rx#: [id number] Sodium Chloride 0.9% 1, 600 000 ml @ 75 mls/hr IV . [id number] [facility] Rx#:[id number] Oral 598 118 Output: Urine 550 200 Other: Voiding Method External Catheter # Voids 1 - Labs CBC & Chem 7: 08/01/23 02:58 08/01/23 02:58 Labs: Abnormal Lab Results - Last 24 Hours (Table) 07/31/23 07/31/23 07/31/23 Range/Units 11:22 15:50 16:31 WBC (3.8-10.6) k/uL RBC (3.80-5.40) m/uL Hgb (11.4-16.0) gm/dL Hct (34.0-46.0) % Neutrophils # (1.3-7.7) k/uL PT (10.0-12.5) sec INR (<1.2) APTT 37.9 H (22.0-30.0) sec Sodium (137-145) mmol/L Chloride (98-107) mmol/L Carbon Dioxide (22-30) mmol/L BUN (7-17) mg/dL Creatinine (0.52-1.04) mg/dL POC Glucose (mg/dL) 134 H 194 H (70-110) mg/dL Calcium (8.4-10.2) mg/dL 07/31/23 08/01/23 08/01/23 Range/Units 20:03 01:29 02:58 WBC 11.9 H (3.8-10.6) k/uL RBC 2.86 L (3.80-5.40) m/uL Hgb 8.9 L (11.4-16.0) gm/dL Hct 26.4 L (34.0-46.0) % Neutrophils # 9.7 H (1.3-7.7) k/uL PT (10.0-12.5) sec INR (<1.2) APTT (22.0-30.0) sec Sodium (137-145) mmol/L Chloride (98-107) mmol/L Carbon Dioxide (22-30) mmol/L BUN (7-17) mg/dL Creatinine (0.52-1.04) mg/dL POC Glucose (mg/dL) 160 H 137 H (70-110) mg/dL Calcium (8.4-10.2) mg/dL 08/01/23 08/01/23 08/01/23 Range/Units 02:58 02:58 02:58 WBC (3.8-10.6) k/uL RBC (3.80-5.40) m/uL Hgb (11.4-16.0) gm/dL Hct (34.0-46.0) % Neutrophils # (1.3-7.7) k/uL PT 13.4 H (10.0-12.5) sec INR 1.3 H (<1.2) APTT 46.9 H (22.0-30.0) sec Sodium 135 L (137-145) mmol/L Chloride 113 H (98-107) mmol/L Carbon Dioxide 18 L (22-30) mmol/L BUN 24 H (7-17) mg/dL Creatinine 1.49 H (0.52-1.04) mg/dL POC Glucose (mg/dL) (70-110) mg/dL Calcium 7.7 L (8.4-10.2) mg/dL 08/01/23 Range/Units 06:03 WBC (3.8-10.6) k/uL RBC (3.80-5.40) m/uL Hgb (11.4-16.0) gm/dL Hct (34.0-46.0) % Neutrophils # (1.3-7.7) k/uL PT (10.0-12.5) sec INR (<1.2) APTT (22.0-30.0) sec Sodium (137-145) mmol/L Chloride (98-107) mmol/L Carbon Dioxide (22-30) mmol/L BUN (7-17) mg/dL Creatinine (0.52-1.04) mg/dL POC Glucose (mg/dL) 54 L (70-110) mg/dL Calcium (8.4-10.2) mg/dL Microbiology - Last 24 Hours (Table) 07/30/23 00:45 Blood Culture - Preliminary Blood 07/30/23 00:30 Blood Culture - Preliminary Blood
[2023-08-02 06:20] LABS: Glucose,Whole Blood 64 mg/dL (70-110)
[2023-08-02] MEDS: DEXTROSE 50% SYRINGE 50 ML IVP PRN (06:23)
[2023-08-02 06:31] LABS: Glucose,Whole Blood 147 mg/dL (70-110)
[2023-08-02] MEDS ORDERED: LIDOCAINE 1% (10MG/ML) FOR IV START INTRADERMA PRN (07:33)
[2023-08-02] MEDS ORDERED: MIDAZOLAM 2 MG/2 ML VIAL IV PRN (07:33)
[2023-08-02 08:08] LABS: HCT 28.3 % (34.0-46.0); HGB 9.3 gm/dL (11.4-16.0); MCH 30.9 pg (25.0-35.0); MCHC 32.9 g/dL (31.0-37.0); MCV 93.7 fL (80.0-100.0); Mean Platelet Volume 8.1; Platelet Count 205 k/uL (150-450); RBC 3.02 m/uL (3.80-5.40); RDW 13.7 % (11.5-15.5); WBC 14.7 k/uL (3.8-10.6)
[2023-08-02 08:18] LABS: African American GFR (CKD) 38 (>60 ml/min/1.73 sqM); Anion Gap 9 mmol/L; Blood Urea Nitrogen 21 mg/dL (7-17); Carbon Dioxide 18 mmol/L (22-30); Chloride 110 mmol/L (98-107); Glucose 82 mg/dL (74-99); Non-African American GFR(CKD) 33 (>60 ml/min/1.73 sqM); Sodium 137 mmol/L (137-145)
[2023-08-02 09:39] LABS: Glucose,Whole Blood 78 mg/dL (70-110)
[2023-08-02] MEDS: IV FLUID CONTINUATION 1,000 ML IV ONE (09:55)
[2023-08-02] MEDS: hydrALAZINE HCL 20 MG/ML 1 ML VIAL IVP ONE ×2 (10:00→10:13)
[2023-08-02 10:26] LABS: Glucose,Whole Blood 134 mg/dL (70-110)
[2023-08-02] MEDS ORDERED: ETOMIDATE 2 MG/ML 10 ML VIAL ONE (11:49)
[2023-08-02] MEDS ORDERED: fentaNYL (PF) 50 MCG/ML 2 ML AMP ONE (11:49)
[2023-08-02] MEDS ORDERED: LIDOCAINE 1% INJ 10MG/ML (20 ML MDV) ONE (11:49)
[2023-08-02] MEDS ORDERED: SUCCINYLCHOLINE CHLORIDE 200 MG/10 ML VIAL IV ONE (11:49)
--- NOTE | 2023-08-02 12:12 | P.PN ---
Subjective Progress Note Date: 08/02/23 HISTORY OF PRESENT ILLNESS: This is a 83-year-old female with a past medical history significant for hy pertension, hyperlipidemia, congestive heart failure, diabetes, permanent atrial fibrillation, peripheral vascular disease, and previous left transmetatarsal amputation. Patient follows in the office with Dr. Ureña. We have been asked to see the patient in consultation for atrial fibrillation. Patient examined at the bedside. Patients family is present. Patient presented to the hospital due to sk in discoloration of her left lower extremity. She is currently being followed by infectious disease and vascular medicine. Patient denies any chest pain or pressure. She denies any shortness of breath. Patient is in atrial fibrillation with slow ventricular rate. This is chronic for the patient and not anything new. She is normally anticoagulated with Xarelto which is currently on hold. DIAGNOSTICS: - Laboratory data: WBC 11.8. Hemoglobin 9.5. Platelet count 177. Sodium 135. Potassium 3.3. BUN 31. Creatinine 1.54. - Current home cardiac medications include Jardiance 10 mg daily, Lasix 20 mg daily, Xarelto 15 mg daily, simvastatin 10 mg daily, amlodipine 5 mg daily, and hydralazine 25 mg twice a day. - Most recent echocardiogram obtained in February 2022 revealed ejection fraction 50 to 55%, moderate MR, moderate TR 07/31 Patient is seen today on the cardiac stepdown unit. Vascular surgery planning for left below the knee amputation on 08/01. Blood pressure 150/67. She denies having any shortness of breath, no chest pain or no chest tightness, no dizziness. Patient remains in atrial fibrillation. 08/01 Patient is seen today in the preop area as patient is going for a below the knee amputation today. There was concern that patient was having 2-second pauses, heart rate was down into the 20s mostly in the 40s. Patient was asymptomatic. She denies having any chest pain, palpitations, lightheadedness or dizziness. She remains in atrial fibrillation. Heart rate is currently 56, blood pressure 152/71, pulse ox 100% on room air. PHYSICAL EXAM: VITAL SIGNS: Reviewed. GENERAL: Well-developed in no acute distress. HEENT: Head is normocephalic. Pupils are equal, round. Sclerae anicteric. Mucous membranes of the mouth are moist. Neck supple. No JVD or thyromegaly LUNGS: Respirations even and unlabored. Lungs essentially clear to auscultation bilaterally. HEART: Irregular rate and rhythm. S1 and S2 heard. Systolic murmur noted ABDOMEN: Soft. Nondistended. Nontender. EXTREMITIES: Normal range of motion. No clubbing or cyanosis. TMA noted to left foot. Dressing noted to right ankle. NEUROLOGIC: Awake and alert. Oriented x 3. ASSESSMENT: Permanent atrial fibrillation with slow ventricular rate History of nonhealing wound to left TMA site now with ischemic changes Hypertension Hyperlipidemia Congestive heart failure with preserved EF, currently euvolemic History of peripheral arterial disease Known right ankle diabetic ulcer Diabetes Peripheral neuropathy PLAN: Xarelto currently remains on hold for surgical intervention Continue IV heparin in the meantime Continue additional cardiac medications Continue hydralazine 25 mg 3 times daily patient is currently stable from a cardiac perspective Further recommendations pending patient course Nurse practitioner note has been reviewed by physician. Signing provider agrees with the documented findings, assessment, and plan of care documented by WET ROASTER as a scribe. Objective - Vital Signs Vital signs: Vital Signs Temp 97.0 F L 08/02/23 10:10 Pulse 70 08/02/23 10:10 Resp 16 08/02/23 10:10 BP 204/81 08/02/23 10:10 Pulse Ox 100 08/02/23 10:10 FiO2 Intake & Output 08/01/23 08/02/23 08/02/23 18:59 06:59 18:59 Intake Total 489.602 177.652 28.522 Output Total 125 Balance 489.602 52.652 28.522 Intake: Intake, IV Titration 135.602 177.652 28.522 Amount Heparin Sod,Pork in 0.45% 135.602 177.652 28.522 NaCl 25,000 unit In 0.45 % NaCl 1 250ml.bag @ 12 UNITS/KG/HR 8.382 mls/hr IV .Q24H [facility] Rx#: [id number] Oral 354 Output: Urine 125 Other: Voiding Method External Catheter External Catheter External Catheter # Voids 3 1 # Bowel Movements 2 - Labs CBC & Chem 7: 08/02/23 07:48 08/02/23 07:48 Labs: Abnormal Lab Results - Last 24 Hours (Table) 08/01/23 08/01/23 08/01/23 Range/Units 11:44 17:16 20:07 WBC (3.8-10.6) k/uL RBC (3.80-5.40) m/uL Hgb (11.4-16.0) gm/dL Hct (34.0-46.0) % APTT (22.0-30.0) sec Chloride (98-107) mmol/L Carbon Dioxide (22-30) mmol/L BUN (7-17) mg/dL Creatinine (0.52-1.04) mg/dL POC Glucose (mg/dL) 225 H 172 H 164 H (70-110) mg/dL Calcium (8.4-10.2) mg/dL 08/02/23 08/02/23 08/02/23 Range/Units 03:55 04:16 04:22 WBC (3.8-10.6) k/uL RBC (3.80-5.40) m/uL Hgb (11.4-16.0) gm/dL Hct (34.0-46.0) % APTT 46.4 H (22.0-30.0) sec Chloride (98-107) mmol/L Carbon Dioxide (22-30) mmol/L BUN (7-17) mg/dL Creatinine (0.52-1.04) mg/dL POC Glucose (mg/dL) 57 L 126 H (70-110) mg/dL Calcium (8.4-10.2) mg/dL 08/02/23 08/02/23 08/02/23 Range/Units 06:16 06:29 07:48 WBC (3.8-10.6) k/uL RBC (3.80-5.40) m/uL Hgb (11.4-16.0) gm/dL Hct (34.0-46.0) % APTT (22.0-30.0) sec Chloride 110 H (98-107) mmol/L Carbon Dioxide 18 L (22-30) mmol/L BUN 21 H (7-17) mg/dL Creatinine 1.47 H (0.52-1.04) mg/dL POC Glucose (mg/dL) 64 L 147 H (70-110) mg/dL Calcium 8.0 L (8.4-10.2) mg/dL 03/14/24 Range/Units 07:48 WBC 14.7 H (3.8-10.6) k/uL RBC 3.02 L (3.80-5.40) m/uL Hgb 9.3 L (11.4-16.0) gm/dL Hct 28.3 L (34.0-46.0) % APTT (22.0-30.0) sec Chloride (98-107) mmol/L Carbon Dioxide (22-30) mmol/L BUN (7-17) mg/dL Creatinine (0.52-1.04) mg/dL POC Glucose (mg/dL) (70-110) mg/dL Calcium (8.4-10.2) mg/dL Microbiology - Last 24 Hours (Table) 07/30/23 00:45 Blood Culture - Preliminary Blood 07/30/23 00:30 Blood Culture - Preliminary Blood
[2023-08-02 13:15] LABS: Glucose,Whole Blood 103 mg/dL (70-110)
[2023-08-02] MEDS: HYDROmorphone 0.5 MG/0.5 ML SYRINGE IVP PRN (13:18)
--- NOTE | 2023-08-02 13:20 | P.OP ---
Date of Procedure: 08/02/23 Description of Procedure: PREOPERATIVE DIAGNOSIS: Nonhealing left lower extremity wound, ischemia POSTOPERATIVE DIAGNOSIS: Same OPERATION: Left below knee amputation. SURGEON: Jenniffer Don DO [employer] OPERATOR: Jesenia ANESTHESIA: General endotracheal ESTIMATED BLOOD LOSS: 75 cc SPECIMENS REMOVED: Left leg for disposal COMPLICATIONS: None immediately apparent CONDITION:stable to recovery FINDINGS AND INDICATIONS: Patient is a 83-year-old female with previous TMA to left lower extremity with nonhealing wound and a subsequent ischemic changes. Given the amount of tissue loss, was recommended undergo below-knee amputation. Risks and benefits were discussed. She similar symptoms willing to proceed. PROCEDURE IN DETAIL: The patient was brought to the operating room, the operative leg was prepped and draped in the usual sterile manner. 10 cm below the tibial plateau was marked. The calf circumference was measured. Two thirds was utilized for the anterior incision, one third was utilized to create the flap. The incision was marked. The incision was deepened through the subcutaneous tissue and fascia to the level of the bone. The fascia was transected around the level of the incision. Anterior compartment muscles were divided and visualized to the tibial vessels which were suture ligated with 2-0 silk. Then the lateral compartment muscles were divided. Dissection was carried down to the level of the bone. The periosteal elevator was used and the tibia was freed from its periosteal tissues. The tibia was divided with an oscillating saw. The same was done of the fibula, approximately 1-1/2-2 cm more proximal to the tibia itself. The posterior flap was created with an amputation knife. Bleeding was controlled with suture ligation of the vessels. Electrocautery was also used for hemostasis. The specimen was removed. The wound was copiously irrigated. The tibia and fibula were smoothed with a rasp. 2-0 and 3-0 Vicryl was utilized to approximate the fascia. The skin was reapproximated with savannah. The incsion was cleansed and a dressing was placed. The patient was extubated and transferred to PACU in stable condition having tolerated the procedure well
[2023-08-02 14:04] VITALS: BMI 26.4
[2023-08-02 14:04] LABS: Glucose,Whole Blood 111 mg/dL (70-110)
[2023-08-02] MEDS: HYDROcodone/APAP 5-325MG 1 EACH TAB PO PRN (14:21)
[2023-08-02] MEDS: ATORVASTATIN 20 MG TAB PO SCH (14:21)
--- NOTE | 2023-08-02 14:24 | P.PN ---
Subjective Progress Note Date: 08/01/23 Principal diagnosis: Reason for follow-up is left diabetic foot wound and gangrene Patient is a 83-year-old female with a past medical history significant for diabetes mellitus hypertension atrial fibrillation heart failure patient did have history of left diabetic foot infection requiring transmetatarsal amputation and did have a chronic nonhealing wound on the plan tar aspect of the left foot patient now presenting to the hospital with discoloration to the left foot. On today's evaluation that is 08/01/2023, Patient did have a fever of 102.3 F at midnight however the patient is afebrile this afternoon patient is currently on room air and denies having any shortness of breath, the patient denies any chest pain or cough, the patient denies any nausea vomiting did not have any abdominal pain and no diarrhea, denies pain to the left foot Patient white count is 11.9, creatinine is 1.49 Objective - Vital Signs Vital signs: Vital Signs Temp 98.1 F 08/01/23 10:20 Pulse 66 08/01/23 10:20 Resp 16 08/01/23 10:20 BP 165/79 08/01/23 10:20 Pulse Ox 100 08/01/23 10:20 FiO2 Intake & Output 07/31/23 08/01/23 08/01/23 18:59 06:59 18:59 Intake Total 1463 87.173 371.602 Output Total 550 200 Balance 913 -112.827 371.602 Intake: Intake, IV Titration 865 87.173 135.602 Amount Heparin Sod,Pork in 0.45% 65 87.173 135.602 NaCl 25,000 unit In 0.45 % NaCl 1 250ml.bag @ 12 UNITS/KG/HR 8.382 mls/hr IV .Q24H [facility] Rx#: [id number] Piperacillin-Tazobactam 3 200 .375 gm In Sodium Chloride 0.9% 100 ml @ 25 mls/hr IVPB Q8H [facility] Rx#: [id number] Sodium Chloride 0.9% 1, 600 000 ml @ 75 mls/hr IV . [id number] [facility] Rx#:[id number] Oral 598 236 Output: Urine 550 200 Other: Voiding Method External Catheter External Catheter # Voids 1 - Exam GENERAL DESCRIPTION: An elderly female lying in bed in no distress RESPIRATORY SYSTEM: Unlabored breathing , decreased breath sounds at bases HEART: S1 S2 regular rate and rhythm , ABDOMEN: Soft , no tenderness EXTREMITIES: Left transmetatarsal amputation did have some discoloration foot is cold no foul-smelling drainage - Labs CBC & Chem 7: 08/02/23 07:48 08/02/23 07:48 Labs: Abnormal Lab Results - Last 24 Hours (Table) 07/31/23 07/31/23 07/31/23 Range/Units 15:50 16:31 20:03 WBC (3.8-10.6) k/uL RBC (3.80-5.40) m/uL Hgb (11.4-16.0) gm/dL Hct (34.0-46.0) % Neutrophils # (1.3-7.7) k/uL PT (10.0-12.5) sec INR (<1.2) APTT 37.9 H (22.0-30.0) sec Sodium (137-145) mmol/L Chloride (98-107) mmol/L Carbon Dioxide (22-30) mmol/L BUN (7-17) mg/dL Creatinine (0.52-1.04) mg/dL POC Glucose (mg/dL) 194 H 160 H (70-110) mg/dL Calcium (8.4-10.2) mg/dL 08/01/23 08/01/23 08/01/23 Range/Units 01:29 02:58 02:58 WBC 11.9 H (3.8-10.6) k/uL RBC 2.86 L (3.80-5.40) m/uL Hgb 8.9 L (11.4-16.0) gm/dL Hct 26.4 L (34.0-46.0) % Neutrophils # 9.7 H (1.3-7.7) k/uL PT 13.4 H (10.0-12.5) sec INR 1.3 H (<1.2) APTT (22.0-30.0) sec Sodium (137-145) mmol/L Chloride (98-107) mmol/L Carbon Dioxide (22-30) mmol/L BUN (7-17) mg/dL Creatinine (0.52-1.04) mg/dL POC Glucose (mg/dL) 137 H (70-110) mg/dL Calcium (8.4-10.2) mg/dL 08/01/23 08/01/23 08/01/23 Range/Units 02:58 02:58 06:03 WBC (3.8-10.6) k/uL RBC (3.80-5.40) m/uL Hgb (11.4-16.0) gm/dL Hct (34.0-46.0) % Neutrophils # (1.3-7.7) k/uL PT (10.0-12.5) sec INR (<1.2) APTT 46.9 H (22.0-30.0) sec Sodium 135 L (137-145) mmol/L Chloride 113 H (98-107) mmol/L Carbon Dioxide 18 L (22-30) mmol/L BUN 24 H (7-17) mg/dL Creatinine 1.49 H (0.52-1.04) mg/dL POC Glucose (mg/dL) 54 L (70-110) mg/dL Calcium 7.7 L (8.4-10.2) mg/dL 08/01/23 Range/Units 11:44 WBC (3.8-10.6) k/uL RBC (3.80-5.40) m/uL Hgb (11.4-16.0) gm/dL Hct (34.0-46.0) % Neutrophils # (1.3-7.7) k/uL PT (10.0-12.5) sec INR (<1.2) APTT (22.0-30.0) sec Sodium (137-145) mmol/L Chloride (98-107) mmol/L Carbon Dioxide (22-30) mmol/L BUN (7-17) mg/dL Creatinine (0.52-1.04) mg/dL POC Glucose (mg/dL) 225 H (70-110) mg/dL Calcium (8.4-10.2) mg/dL Microbiology - Last 24 Hours (Table) 07/30/23 00:45 Blood Culture - Preliminary Blood 07/30/23 00:30 Blood Culture - Preliminary Blood Assessment and Plan (1) Gangrene of left foot Current Visit: Yes Status: Acute Code(s): I96 - GANGRENE, NOT ELSEWHERE CLAS SIFIED SNOMED Code(s): 36456119678131066 (2) Diabetic infection of left foot Current Visit: Yes Status: Acute Code(s): E11.628 - TYPE 2 DIABETES MELLITUS WITH OTHER SKIN COMPLICATIONS; L08.9 - LOCAL INFECTION OF THE SKIN AND SUBCUTANEOUS TISSUE, UNSP SNOMED Code(s): 97865358 (3) Diabetic foot ulcer Current Visit: No Status: Acute Code(s): E11.621 - TYPE 2 DIABETES MELLITUS WITH FOOT ULCER; L97.509 - NON-PRESSURE CHRONIC ULCER OTH PRT UNSP FOOT W UNSP SEVERITY SNOMED Code(s): 065639496 Plan: 1patient presented to hospital with left diabetic foot infection in this patient who did have a chronic nonhealing wound on the plantar aspect however features are mostly suggestive of ischemia on today's visit last culture positive for Pseudomonas E. coli anaerobes 2-patient has been eval by vascular surgery recommending left below the knee amputation awaiting family decision 3-patient did have a fever this morning cultures are currently pending white count is trending down we will continue patient on Zosyn and monitor clinical course closely Family at bedside questions answered Dictation was produced using [employer] dictation software. please excuse any grammatical, word or spelling errors. Time with Patient: Less than 30
--- NOTE | 2023-08-02 14:51 | P.PN ---
Subjective Progress Note Date: 08/02/23 Patient is a 83-year-old female presents to ER with complaints of left foot discoloration and wound on the plantar aspect at the amputation site with minimal discharge. Worsening symptoms since last Sunday. Patient was also complaining of subjective fevers and chills last night. Patient otherwise den ies any pain. Denies any chest pain or shortness of breath. Denies any recent trauma/injury. Patient does have a history of left metatarsal amputation, atrial fibrillation on anticoagulation with Xarelto, hypertension, diabetes type 2 insulin- dependent, diabetic peripheral neuropathy and chronic kidney disease stage III. On admission foot x-ray showed extensive postsurgical changes, soft tissue point vascular calcifications compatible with diabetes and MRI is advised to assess for relief/osteomyelitis. Admission Tmax 99.8 and patient was tachycardic Laboratory data showed WBC 20.0 hemoglobin 10.6 and platelets 217 Sodium 128 potassium 4.4 chloride 98 bicarb is 20 BUN 14 creatinine 1.82 and blood sugar 104 and lactic acid 1.6 magnesium 1.7 07/31/2023 Patient is seen in follow-up this morning with multiple family members at the bedside awaiting vascular surgery. Vascular surgery has evaluated the patient today likely discussing left below the knee amputation. Patient also being foll owed by infectious disease maintained on IV antibiotics and will continue for now. Family making the decision further if they want to proceed with BKA. Patient is afebrile with no reported chest pain or shortness of breath. Patient denies any pain and reports to tolerating diet with no nausea or vomiting. continue monitoring blood sugars closely and adjust accordingly as patient did have low blood sugar reading this morning. 08/01/2023 Patient is seen in follow-up today and awaiting discussed with vascular surgery Dr. Don about surgical intervention and likely proceeding with left BKA. P atient is currently afebrile with no reports of chest pain or shortness of breath. Patient has been tolerating diet with no reported nausea or vomiting. Patient reports her pain is controlled at this time. Wound care also consulted for evaluation. Blood sugars have been on the lower side each night and adjusted long-acting medications. Recommend to monitor Accu-Cheks before meals and at bedtime and 2 AM as patient often becomes hypoglycemic in the middle the night. Will continue to modify insulins as needed. 08/02/2023 Patient is seen and evaluated in follow-up today currently n.p.o. as patient is scheduled to undergo left BKA today with Dr. Don. Blood sugars on the lower side more so throughout the night and adjusted long-acting medications once again. Patient currently continued on IV heparin and will discuss with vascular surgery when to resume anticoagulation. Patient continues on IV Zosyn and blood cultures thus far are negative. Infectious disease and cardiology following. Patient is currently afebrile with no reported chest pain or shortness of breath. Will await surgical report and also have PT/OT therapy evaluate the patient once stable from vascular surgery's perspective. Review of systems: Constitutional: No reports of fatigue, fever, or chills Cardiovascular: No reports of chest pain or palpitations Respiratory: No reports of shortness of breath or cough GI: No reports of nausea, vomiting, or diarrhea : No reports of dysuria or retention Neurovascular: reports of generalized weakness All medications have been reviewed PHYSICAL EXAMINATION: Patient is awake, alert and oriented x 2-3, baseline, no acute distress, well- developed, well-nourished, elderly appearing. HEENT: Normocephalic. Neck is supple. Pupils reactive. Nostrils clear. Oral cavity is moist. Neck reveals no JVD, carotid bruits, or thyromegaly. CHEST EXAMINATION: Trachea is central. Symmetrical expansion. Lung natarajan clear to auscultation and percussion. CARDIAC: Normal S1, S2 with no gallops. No murmurs ABDOMEN: Soft. Bowel sounds normal. No organomegaly. No abdominal bruits. Extremities: Left foot TMA site with bluish discoloration and open wound on the plantar aspect. Minimal discharge.. No clubbing or cyanosis Neurologically awake, alert, oriented x2-3 with well-coordinated movements. No focal deficits noted, diffusely weak Skin: No rash or skin lesions. Psychiatric: Cooperative. Non-suicidal Musculoskeletal: No joint swelling or deformity. Normal range of motion. Assessment: Left foot ischemia with soft tissue swelling/cellulitis at the amputation site with open wound on the lateral plantar aspect and minimal discharge. Scheduled for left BKA with vascular surgery today 08/02/2023 Sepsis secondary to above Nonhealing left foot wound Hypovolemic hyponatremia, improving Acute on chronic kidney disease stage III due to diabetic nephrosclerosis History of left TMA Peripheral vascular disease Diabetes type 2 insulin-dependent, uncontrolled with hypoglycemia Severe peripheral neuropathy Paroxysmal atrial fibrillation on anticoagulation with Xarelto, currently continued on IV heparin as patient is scheduled to undergo BKA on the left GI prophylaxis DVT prophylaxis No code Plan: Patient will be continued on IV antibiotics Zosyn with infectious disease following Vvascular surgery following with plans for left below the knee amputation with Dr. Don today 08/02/2023 Monitor renal function and will follow-up on repeat labs Continue monitoring Accu-Cheks and adjust insulins accordingly as patient has been having lower blood sugars in the morning. Patient was on the lower side with this morning's glucose check and was given a half amp of dextrose prior to surgery. Will adjust insulins accordingly. Recommend Accu-Cheks ACHS and 2 AM as patient is consistently hypoglycemic in the a.m. Blood pressure medications on hold currently due to hypotension. Xarelto is on hold due to possible surgical intervention and is continued on IV heparin. IV heparin is on hold for surgical intervention and will discuss further after surgery with vascular surgery when to resume Xarelto Will have PT/OT therapy evaluate the patient and discussed with patient and family on discharge planning Due to multiple complex medical issues, prognosis is guarded The impression and plan of care has been dictated by Mildred Swift, Nurse Practitioner as directed. Dr. Wil MD I have performed a history and examination and MDM of this patient, discussed the same with the dictator, and agree with the dictator's assessment and plan as written ,documented as a scribe. Based on total visit time, I have performed more than 50% of the visit. Objective - Vital Signs Vital signs: Vital Signs Temp 98 F 08/02/23 07:59 Pulse 55 L 08/02/23 07:59 Resp 17 08/02/23 07:59 BP 156/72 08/02/23 07:59 Pulse Ox 100 08/02/23 07:59 FiO2 Intake & Output 08/01/23 08/02/23 08/02/23 18:59 06:59 18:59 Intake Total 489.602 177.652 28.522 Output Total 125 Balance 489.602 52.652 28.522 Intake: Intake, IV Titration 135.602 177.652 28.522 Amount Heparin Sod,Pork in 0.45% 135.602 177.652 28.522 NaCl 25,000 unit In 0.45 % NaCl 1 250ml.bag @ 12 UNITS/KG/HR 8.382 mls/hr IV .Q24H [facility] Rx#: [id number] Oral 354 Output: Urine 125 Other: Voiding Method External Catheter External Catheter # Voids 3 1 # Bowel Movements 2 - Labs CBC & Chem 7: 08/02/23 07:48 08/02/23 07:48 Labs: Abnormal Lab Results - Last 24 Hours (Table) 08/01/23 08/01/23 08/01/23 Range/Units 11:44 17:16 20:07 WBC (3.8-10.6) k/uL RBC (3.80-5.40) m/uL Hgb (11.4-16.0) gm/dL Hct (34.0-46.0) % APTT (22.0-30.0) sec Chloride (98-107) mmol/L Carbon Dioxide (22-30) mmol/L BUN (7-17) mg/dL Creatinine (0.52-1.04) mg/dL POC Glucose (mg/dL) 225 H 172 H 164 H (70-110) mg/dL Calcium (8.4-10.2) mg/dL 08/02/23 08/02/23 08/02/23 Range/Units 03:55 04:16 04:22 WBC (3.8-10.6) k/uL RBC (3.80-5.40) m/uL Hgb (11.4-16.0) gm/dL Hct (34.0-46.0) % APTT 46.4 H (22.0-30.0) sec Chloride (98-107) mmol/L Carbon Dioxide (22-30) mmol/L BUN (7-17) mg/dL Creatinine (0.52-1.04) mg/dL POC Glucose (mg/dL) 57 L 126 H (70-110) mg/dL Calcium (8.4-10.2) mg/dL 08/02/23 08/02/23 08/02/23 Range/Units 06:16 06:29 07:48 WBC (3.8-10.6) k/uL RBC (3.80-5.40) m/uL Hgb (11.4-16.0) gm/dL Hct (34.0-46.0) % APTT (22.0-30.0) sec Chloride 110 H (98-107) mmol/L Carbon Dioxide 18 L (22-30) mmol/L BUN 21 H (7-17) mg/dL Creatinine 1.47 H (0.52-1.04) mg/dL POC Glucose (mg/dL) 64 L 147 H (70-110) mg/dL Calcium 8.0 L (8.4-10.2) mg/dL 08/02/23 Range/Units 07:48 WBC 14.7 H (3.8-10.6) k/uL RBC 3.02 L (3.80-5.40) m/uL Hgb 9.3 L (11.4-16.0) gm/dL Hct 28.3 L (34.0-46.0) % APTT (22.0-30.0) sec Chloride (98-107) mmol/L Carbon Dioxide (22-30) mmol/L BUN (7-17) mg/dL Creatinine (0.52-1.04) mg/dL POC Glucose (mg/dL) (70-110) mg/dL Calcium (8.4-10.2) mg/dL Microbiology - Last 24 Hours (Table) 07/30/23 00:45 Blood Culture - Preliminary Blood 07/30/23 00:30 Blood Culture - Preliminary Blood
[2023-08-02] MEDS: ONDANSETRON 4 MG/2 ML VIAL IVP ONE (15:11)
[2023-08-02] MEDS: DEXAMETHASONE SOD PHOSPHATE 4 MG/ML 1 ML VIAL IV ONE (15:11)
[2023-08-02] MEDS: LACTATED RINGERS 1,000 ML IV SCH (15:11)
[2023-08-02] MEDS: MORPHINE SULFATE 2 MG/ML SYRINGE IVP PRN (16:46)
[2023-08-02 16:53] LABS: Glucose,Whole Blood 116 mg/dL (70-110)
[2023-08-02 20:12] LABS: Glucose,Whole Blood 125 mg/dL (70-110)
[2023-08-02] MEDS: INSULIN DETEMIR (LEVEMIR) 100 UNIT/ML SYR SQ SCH (21:33)
[2023-08-03 01:58] LABS: Glucose,Whole Blood 131 mg/dL (70-110)
[2023-08-03 06:24] LABS: Glucose,Whole Blood 77 mg/dL (70-110)
[2023-08-03] MEDS: INSULIN DETEMIR (LEVEMIR) 100 UNIT/ML SYR SQ SCH (09:15)
[2023-08-03 11:15] LABS: Glucose,Whole Blood 183 mg/dL (70-110)
[2023-08-03 11:19] LABS: Basophils % (A) 0 %; Eosinophils # (A) 0.3 k/uL (0-0.7); Eosinophils % (A) 3 %; HCT 29.6 % (34.0-46.0); HGB 9.2 gm/dL (11.4-16.0); Hypochromasia Slight; Lymphocytes # (A) 1.2 k/uL (1.0-4.8); Lymphocytes % (A) 11 %; MCH 29.8 pg (25.0-35.0); MCV 96.2 fL (80.0-100.0); Mean Platelet Volume 8.7; Monocytes # (A) 0.6 k/uL (0-1.0); Monocytes % (A) 6 %; Neutrophils # (A) 7.8 k/uL (1.3-7.7); Neutrophils % (A) 77 %; Platelet Count 233 k/uL (150-450); RBC 3.08 m/uL (3.80-5.40); WBC 10.1 k/uL (3.8-10.6)
[2023-08-03 11:40] LABS: African American GFR (CKD) 39 (>60 ml/min/1.73 sqM); Anion Gap 8 mmol/L; Blood Urea Nitrogen 20 mg/dL (7-17); Calcium 8.1 mg/dL (8.4-10.2); Carbon Dioxide 19 mmol/L (22-30); Chloride 107 mmol/L (98-107); Glucose 168 mg/dL (74-99); Non-African American GFR(CKD) 34 (>60 ml/min/1.73 sqM); Potassium 4.6 mmol/L (3.5-5.1); Sodium 134 mmol/L (137-145)
--- NOTE | 2023-08-03 13:00 | P.PN ---
Subjective Progress Note Date: 08/03/23 Principal diagnosis: Left foot ischemia Patient is seen and examined today as a follow-up. She is postop day #1 for left below the knee amputation. Her pain is pretty well managed with pain medication. She has her knee immobilizer in place. She has been afebrile. She is currently on IV heparin drip for atrial fibrillation recommended by cardiology. Hemoglobin stable at 9.2 Objective - Vital Signs Vital signs: Vital Signs Temp 97.7 F 08/02/23 14:00 Pulse 68 08/03/23 03:13 Resp 16 08/03/23 03:13 BP 145/74 08/03/23 03:13 Pulse Ox 99 08/03/23 03:13 FiO2 Intake & Output 08/02/23 08/03/23 08/03/23 18:59 06:59 18:59 Intake Total 637.323 693.623 Output Total 75 950 Balance 562.323 -256.377 Weight 69.853 kg Intake: IV 600 Intake, IV Titration 37.323 153.623 Amount Heparin Sod,Pork in 0.45% 37.323 153.623 NaCl 25,000 unit In 0.45 % NaCl 1 250ml.bag @ 12 UNITS/KG/HR 8.382 mls/hr IV .Q24H [facility] Rx#: [id number] Oral 540 Output: Urine 950 Straight 750 Estimated Blood Loss 75 Other: Voiding Method External Catheter External Catheter # Voids 1 - Exam General appearance: The patient is alert, oriented, appears in no acute distress. Obese. HET: Head is normocephalic and atraumatic.. Neck: Supple. Abdomen: Soft, nontender, nondistended. Extremities: Left lower extremity with knee immobilizer and dressing clean dry and intact. Dressing taken down to surgical site. Incision well-approximated with savannah surrounding tissue pink warm and dry. Neurological: No focal deficits. - Labs CBC & Chem 7: 08/03/23 10:41 08/03/23 10:41 Labs: Abnormal Lab Results - Last 24 Hours (Table) 08/02/23 08/02/23 08/02/23 Range/Units 07:48 07:48 10:25 WBC 14.7 H (3.8-10.6) k/uL RBC 3.02 L (3.80-5.40) m/uL Hgb 9.3 L (11.4-16.0) gm/dL Hct 28.3 L (34.0-46.0) % APTT (22.0-30.0) sec Chloride 110 H (98-107) mmol/L Carbon Dioxide 18 L (22-30) mmol/L BUN 21 H (7-17) mg/dL Creatinine 1.47 H (0.52-1.04) mg/dL POC Glucose (mg/dL) 134 H (70-110) mg/dL Calcium 8.0 L (8.4-10.2) mg/dL 08/02/23 08/02/23 08/02/23 Range/Units 14:02 16:52 20:11 WBC (3.8-10.6) k/uL RBC (3.80-5.40) m/uL Hgb (11.4-16.0) gm/dL Hct (34.0-46.0) % APTT (22.0-30.0) sec Chloride (98-107) mmol/L Carbon Dioxide (22-30) mmol/L BUN (7-17) mg/dL Creatinine (0.52-1.04) mg/dL POC Glucose (mg/dL) 111 H 116 H 125 H (70-110) mg/dL Calcium (8.4-10.2) mg/dL 08/02/23 08/03/23 08/03/23 Range/Units 21:28 01:57 03:48 WBC (3.8-10.6) k/uL RBC (3.80-5.40) m/uL Hgb (11.4-16.0) gm/dL Hct (34.0-46.0) % APTT 36.6 H 52.4 H (22.0-30.0) sec Chloride (98-107) mmol/L Carbon Dioxide (22-30) mmol/L BUN (7-17) mg/dL Creatinine (0.52-1.04) mg/dL POC Glucose (mg/dL) 131 H (70-110) mg/dL Calcium (8.4-10.2) mg/dL Microbiology - Last 24 Hours (Table) 07/30/23 00:45 Blood Culture - Preliminary Blood 07/30/23 00:30 Blood Culture - Preliminary Blood Assessment and Plan Assessment: 1. Ischemic changes to left TMA site status post left below the knee amputation 2. 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 Peripheral arterial disease, below-knee 4. Right ankle diabetic ulcer 5. Atrial fibrillation with slow ventricular rate 6. Diabetes mellitus 7. Peripheral neuropathy Plan: 1. Keep stump match marker rigid dressing in place as well as knee immobilizer 2. Change dressing as needed with Adaptic, 4 x 4, Kerlix 3. Continue with recommendations from infectious disease 4. Patient may resume Xarelto 5. Order for stump match marker and rigid dressing and given to case management 6. Comfort prosthetics consulted for stump match marker and rigid dressing Thank you for this consultation, patient is cleared from vascular surgery for discharge. She will need to follow-up with vascular surgery in 2 weeks. The impression and plan of care has been dictated as directed. Dr. Don I performed a history and examination of this patient, discussed the same with the dictator. I agree with the dictator's note ,documented as a scribe. Any additional findings or plans will be noted.
--- NOTE | 2023-08-03 13:10 | P.PN ---
Subjective Progress Note Date: 08/02/23 Principal diagnosis: Reason for follow-up is left diabetic foot wound and gangrene Patient is a 83-year-old female with a past medical history significant for diabetes mellitus hypertension atrial fibrillation heart failure patient did have history of left diabetic foot infection requiring transmetatarsal amputation and did have a chronic nonhealing wound on the plan tar aspect of the left foot patient now presenting to the hospital with discoloration to the left foot.Patient is status post left below the knee amputation completed on 08/02/2023 On today's evaluation that is 08/02/2023, patient did have low-grade fever 100.4 at midnight however the patient has been afebrile since then, patient is breathing comfortably and is currently on room air, patient denies having any significant cough no chest pain shortness of breath, patient denies nausea vomiting or diarrhea and no abdominal pain, has been complaining of burning pain to the left BKA stump since surgery Patient white count slightly up to 14.7 today, creatinine is 1.47 blood cultures are pending Objective - Vital Signs Vital signs: Vital Signs Temp 97.0 F L 08/02/23 10:00 Pulse 56 L 08/02/23 10:27 Resp 16 08/02/23 10:27 BP 152/71 08/02/23 10:27 Pulse Ox 100 08/02/23 10:27 FiO2 Intake & Output 08/01/23 08/02/23 08/02/23 18:59 06:59 18:59 Intake Total 489.602 177.652 528.522 Output Total 125 75 Balance 489.602 52.652 453.522 Intake: IV 500 Intake, IV Titration 135.602 177.652 28.522 Amount Heparin Sod,Pork in 0.45% 135.602 177.652 28.522 NaCl 25,000 unit In 0.45 % NaCl 1 250ml.bag @ 12 UNITS/KG/HR 8.382 mls/hr IV .Q24H [facility] Rx#: [id number] Oral 354 Output: Urine 125 Estimated Blood Loss 75 Other: Voiding Method External Catheter External Catheter External Catheter # Voids 3 1 # Bowel Movements 2 - Exam GENERAL DESCRIPTION: An elderly female lying in bed in no distress RESPIRATORY SYSTEM: Unlabored breathing , decreased breath sounds at bases HEART: S1 S2 regular rate and rhythm , ABDOMEN: Soft , no tenderness EXTREMITIES: Left BKA stump is covered in OR dressing - Labs CBC & Chem 7: 08/03/23 10:41 08/03/23 10:41 Labs: Abnormal Lab Results - Last 24 Hours (Table) 08/01/23 08/01/23 08/02/23 Range/Units 17:16 20:07 03:55 WBC (3.8-10.6) k/uL RBC (3.80-5.40) m/uL Hgb (11.4-16.0) gm/dL Hct (34.0-46.0) % APTT (22.0-30.0) sec Chloride (98-107) mmol/L Carbon Dioxide (22-30) mmol/L BUN (7-17) mg/dL Creatinine (0.52-1.04) mg/dL POC Glucose (mg/dL) 172 H 164 H 57 L (70-110) mg/dL Calcium (8.4-10.2) mg/dL 08/02/23 08/02/23 08/02/23 Range/Units 04:16 04:22 06:16 WBC (3.8-10.6) k/uL RBC (3.80-5.40) m/uL Hgb (11.4-16.0) gm/dL Hct (34.0-46.0) % APTT 46.4 H (22.0-30.0) sec Chloride (98-107) mmol/L Carbon Dioxide (22-30) mmol/L BUN (7-17) mg/dL Creatinine (0.52-1.04) mg/dL POC Glucose (mg/dL) 126 H 64 L (70-110) mg/dL Calcium (8.4-10.2) mg/dL 08/02/23 08/02/23 08/02/23 Range/Units 06:29 07:48 07:48 WBC 14.7 H (3.8-10.6) k/uL RBC 3.02 L (3.80-5.40) m/uL Hgb 9.3 L (11.4-16.0) gm/dL Hct 28.3 L (34.0-46.0) % APTT (22.0-30.0) sec Chloride 110 H (98-107) mmol/L Carbon Dioxide 18 L (22-30) mmol/L BUN 21 H (7-17) mg/dL Creatinine 1.47 H (0.52-1.04) mg/dL POC Glucose (mg/dL) 147 H (70-110) mg/dL Calcium 8.0 L (8.4-10.2) mg/dL 08/02/23 Range/Units 10:25 WBC (3.8-10.6) k/uL RBC (3.80-5.40) m/uL Hgb (11.4-16.0) gm/dL Hct (34.0-46.0) % APTT (22.0-30.0) sec Chloride (98-107) mmol/L Carbon Dioxide (22-30) mmol/L BUN (7-17) mg/dL Creatinine (0.52-1.04) mg/dL POC Glucose (mg/dL) 134 H (70-110) mg/dL Calcium (8.4-10.2) mg/dL Microbiology - Last 24 Hours (Table) 07/30/23 00:45 Blood Culture - Preliminary Blood 07/30/23 00:30 Blood Culture - Preliminary Blood Assessment and Plan (1) Gangrene of left foot Current Visit: Yes Status: Acute Code(s): I96 - GANGRENE, NOT ELSEWHERE CLASSIFIED SNOMED Code(s): 32255229968069065 (2) Diabetic infection of left foot Current Visit: Yes Status: Acute Code(s): E11.628 - TYPE 2 DIABETES MELLITUS WITH OTHER SKIN COMPLICATIONS; L08.9 - LOCAL INFECTION OF THE SKIN AND SUBCUTANEOUS TISSUE, UNSP SNOMED Code(s): 62604858 (3) Diabetic foot ulcer Current Visit: No Status: Acute Code(s): E11.621 - TYPE 2 DIABETES MELLITUS WITH FOOT ULCER; L97.509 - NON-PRESSURE CHRONIC ULCER OTH PRT UNSP FOOT W UNSP SEVERITY SNOMED Code(s): 673642735 Plan: 1patient presented to hospital with left diabetic foot infection in this patient who did have a chronic nonhealing wound on the plantar aspect however features are mostly suggestive of ischemia on today's visit last culture positive for Pseudomonas E. coli anaerobes 2-patient is status post left below the knee amputation completed on 08/02/2023 3-patient fever pattern has improved white count slightly up we will monitor closely continue with empiric Zosyn blood cultures so far pending Dictation was produced using [employer] software. please excuse any grammatical, word or spelling errors. Time with Patient: Less than 30
--- NOTE | 2023-08-03 13:12 | P.PN ---
Subjective Progress Note Date: 08/03/23 Principal diagnosis: Reason for follow-up is left diabetic foot wound and gangrene Patient is a 83-year-old female with a past medical history significant for diabetes mellitus hypertension atrial fibrillation heart failure patient did have history of left diabetic foot infection requiring transmetatarsal amputation and did have a chronic nonhealing wound on the plan tar aspect of the left foot patient now presenting to the hospital with discoloration to the left foot.Patient is status post left below the knee amputation completed on 08/02/2023 On today's evaluation that is 08/03/2023,the patient denies any fever or any chills, patient is breathing comfortably on room air, the patient denies chest pain shortness of breath and no significant cough, patient denies abdominal pain, no nausea vomiting or diarrhea. Pain to the left BKA stump is currently controlled. Patient white count normalized to 10.1 creatinine is 1.44 blood cultures so far pending Objective - Vital Signs Vital signs: Vital Signs Temp 98.0 F 08/03/23 11:56 Pulse 69 08/03/23 11:56 Resp 16 08/03/23 11:56 BP 157/83 08/03/23 11:56 Pulse Ox 100 08/03/23 11:56 FiO2 Intake & Output 08/02/23 08/03/23 08/03/23 18:59 06:59 18:59 Intake Total 637.323 693.623 110 Output Total 75 950 Balance 562.323 -256.377 110 Weight 69.853 kg 69.853 kg Intake: IV 600 Intake, IV Titration 37.323 153.623 Amount Heparin Sod,Pork in 0.45% 37.323 153.623 NaCl 25,000 unit In 0.45 % NaCl 1 250ml.bag @ 12 UNITS/KG/HR 8.382 mls/hr IV .Q24H [facility] Rx#: [id number] Oral 540 110 Output: Urine 950 Straight 750 Estimated Blood Loss 75 Other: Voiding Method External Catheter External Catheter External Catheter # Voids 1 - Exam GENERAL DESCRIPTION: An elderly female lying in bed in no distress RESPIRATORY SYSTEM: Unlabored breathing , decreased breath sounds at bases HEART: S1 S2 regular rate and rhythm , ABDOMEN: Soft , no tenderness EXTREMITIES: Left BKA stump is covered in OR dressing - Labs CBC & Chem 7: 08/03/23 10:41 08/03/23 10:41 Labs: Abnormal Lab Results - Last 24 Hours (Table) 08/02/23 08/02/23 08/02/23 Range/Units 14:02 16:52 20:11 RBC (3.80-5.40) m/uL Hgb (11.4-16.0) gm/dL Hct (34.0-46.0) % Neutrophils # (1.3-7.7) k/uL APTT (22.0-30.0) sec Sodium (137-145) mmol/L Carbon Dioxide (22-30) mmol/L BUN (7-17) mg/dL Creatinine (0.52-1.04) mg/dL Glucose (74-99) mg/dL POC Glucose (mg/dL) 111 H 116 H 125 H (70-110) mg/dL Calcium (8.4-10.2) mg/dL 08/02/23 08/03/23 08/03/23 Range/Units 21:28 01:57 03:48 RBC (3.80-5.40) m/uL Hgb (11.4-16.0) gm/dL Hct (34.0-46.0) % Neutrophils # (1.3-7.7) k/uL APTT 36.6 H 52.4 H (22.0-30.0) sec Sodium (137-145) mmol/L Carbon Dioxide (22-30) mmol/L BUN (7-17) mg/dL Creatinine (0.52-1.04) mg/dL Glucose (74-99) mg/dL POC Glucose (mg/dL) 131 H (70-110) mg/dL Calcium (8.4-10.2) mg/dL 08/03/23 08/03/23 08/03/23 Range/Units 10:41 10:41 11:10 RBC 3.08 L (3.80-5.40) m/uL Hgb 9.2 L (11.4-16.0) gm/dL Hct 29.6 L (34.0-46.0) % Neutrophils # 7.8 H (1.3-7.7) k/uL APTT (22.0-30.0) sec Sodium 134 L (137-145) mmol/L Carbon Dioxide 19 L (22-30) mmol/L BUN 20 H (7-17) mg/dL Creatinine 1.44 H (0.52-1.04) mg/dL Glucose 168 H (74-99) mg/dL POC Glucose (mg/dL) 183 H (70-110) mg/dL Calcium 8.1 L (8.4-10.2) mg/dL Microbiology - Last 24 Hours (Table) 07/30/23 00:45 Blood Culture - Preliminary Blood 07/30/23 00:30 Blood Culture - Preliminary Blood Assessment and Plan (1) Gangrene of left foot Current Visit: Yes Status: Acute Code(s): I96 - GANGRENE, NOT ELSEWHERE CLASSIFIED SNOMED Code(s): 50330428711284849 (2) Diabetic infection of left foot Current Visit: Yes Status: Acute Code(s): E11.628 - TYPE 2 DIABETES MELLITUS WITH OTHER SKIN COMPLICATIONS; L08.9 - LOCAL INFECTION OF THE SKIN AND SUBCUTANEOUS TISSUE, UNSP SNOMED Code(s): 65893932 (3) Diabetic foot ulcer Current Visit: No Status: Acute Code(s): E11.621 - TYPE 2 DIABETES MELLITUS WITH FOOT ULCER; L97.509 - NON-PRESSURE CHRONIC ULCER OTH PRT UNSP FOOT W UNSP SEVERITY SNOMED Code(s): 981914562 Plan: 1patient presented to hospital with left diabetic foot infection in this patient who did have a chronic nonhealing wound on the plantar aspect however features are mostly suggestive of ischemia on today's visit last culture positive for Pseudomonas E. coli anaerobes 2-patient is status post left below the knee amputation completed on 08/02/2023 3-patient did have resolution of the fever and the patient white count is normalized, patient continue with empiric Zosyn however will not need any IV antibiotics on discharge Dictation was produced using [employer] dictation software. please excuse any grammatical, word or spelling errors. Time with Patient: Less than 30
--- NOTE | 2023-08-03 14:03 | P.PN ---
Subjective Progress Note Date: 08/03/23 HISTORY OF PRESENT ILLNESS: This is a 83-year-old female with a past medical history significant for hy pertension, hyperlipidemia, congestive heart failure, diabetes, permanent atrial fibrillation, peripheral vascular disease, and previous left transmetatarsal amputation. Patient follows in the office with Dr. Ureña. We have been asked to see the patient in consultation for atrial fibrillation. Patient examined at the bedside. Patients family is present. Patient presented to the hospital due to sk in discoloration of her left lower extremity. She is currently being followed by infectious disease and vascular medicine. Patient denies any chest pain or pressure. She denies any shortness of breath. Patient is in atrial fibrillation with slow ventricular rate. This is chronic for the patient and not anything new. She is normally anticoagulated with Xarelto which is currently on hold. DIAGNOSTICS: - Laboratory data: WBC 11.8. Hemoglobin 9.5. Platelet count 177. Sodium 135. Potassium 3.3. BUN 31. Creatinine 1.54. - Current home cardiac medications include Jardiance 10 mg daily, Lasix 20 mg daily, Xarelto 15 mg daily, simvastatin 10 mg daily, amlodipine 5 mg daily, and hydralazine 25 mg twice a day. - Most recent echocardiogram obtained in February 2022 revealed ejection fraction 50 to 55%, moderate MR, moderate TR 07/31 Patient is seen today on the cardiac stepdown unit. Vascular surgery planning for left below the knee amputation on 08/01. Blood pressure 150/67. She denies having any shortness of breath, no chest pain or no chest tightness, no dizziness. Patient remains in atrial fibrillation. 08/01 Patient is seen today in the preop area as patient is going for a below the knee amputation today. There was concern that patient was having 2-second pauses, heart rate was down into the 20s mostly in the 40s. Patient was asymptomatic. She denies having any chest pain, palpitations, lightheadedness or dizziness. She remains in atrial fibrillation. Heart rate is currently 56, blood pressure 152/71, pulse ox 100% on room air. 08/02 Yesterday, patient underwent below the knee amputation. She has been cleared to resume Xarelto which we will do for this evening. Patient denies having any chest pain or shortness of breath. Blood pressure 157/83, heart rate 69, pulse ox 100% on room air. Repeat blood work reveals WBC 10.1, hemoglobin 9.2. Sodium 134, potassium 4.6, BUN 20 creatinine 1.44. PHYSICAL EXAM: VITAL SIGNS: Reviewed. GENERAL: Well-developed in no acute distress. HEENT: Head is normocephalic. Pupils are equal, round. Sclerae anicteric. Mucous membranes of the mouth are moist. Neck supple. No JVD or thyromegaly LUNGS: Respirations even and unlabored. Lungs essentially clear to auscultation bilaterally. HEART: Irregular rate and rhythm. S1 and S2 heard. Systolic murmur noted ABDOMEN: Soft. Nondistended. Nontender. EXTREMITIES: Normal range of motion. No clubbing or cyanosis. TMA noted to left foot. Dressing noted to right ankle. NEUROLOGIC: Awake and alert. Oriented x 3. ASSESSMENT: Permanent atrial fibrillation with slow ventricular rate History of nonhealing wound to left TMA site now with ischemic changes Hypertension Hyperlipidemia Congestive heart failure with preserved EF, currently euvolemic History of peripheral arterial disease Known right ankle diabetic ulcer Diabetes Peripheral neuropathy PLAN: Xarelto to be resumed and discontinue heparin drip Continue additional cardiac medications Continue hydralazine 25 mg 3 times daily Cardiology will sign off this case and follow on an as-needed basis. Please reconsult for any new concerns. Patient may follow-up in the office in one to 2 weeks. Nurse practitioner note has been reviewed by physician. Signing provider agrees with the documented findings, assessment, and plan of care documented by WHALE FISHERMAN as a scribe. Objective - Vital Signs Vital signs: Vital Signs Temp 98.0 F 08/03/23 11:56 Pulse 69 08/03/23 11:56 Resp 16 08/03/23 11:56 BP 157/83 08/03/23 11:56 Pulse Ox 100 08/03/23 11:56 FiO2 Intake & Output 08/02/23 08/03/23 08/03/23 18:59 06:59 18:59 Intake Total 637.323 693.623 110 Output Total 75 950 Balance 562.323 -256.377 110 Weight 69.853 kg 69.853 kg Intake: IV 600 Intake, IV Titration 37.323 153.623 Amount Heparin Sod,Pork in 0.45% 37.323 153.623 NaCl 25,000 unit In 0.45 % NaCl 1 250ml.bag @ 12 UNITS/KG/HR 8.382 mls/hr IV .Q24H [facility] Rx#: [id number] Oral 540 110 Output: Urine 950 Straight 750 Estimated Blood Loss 75 Other: Voiding Method External Catheter External Catheter External Catheter # Voids 1 - Labs CBC & Chem 7: 08/03/23 10:41 08/03/23 10:41 Labs: Abnormal Lab Results - Last 24 Hours (Table) 08/02/23 08/02/23 08/02/23 Range/Units 14:02 16:52 20:11 RBC (3.80-5.40) m/uL Hgb (11.4-16.0) gm/dL Hct (34.0-46.0) % Neutrophils # (1.3-7.7) k/uL APTT (22.0-30.0) sec Sodium (137-145) mmol/L Carbon Dioxide (22-30) mmol/L BUN (7-17) mg/dL Creatinine (0.52-1.04) mg/dL Glucose (74-99) mg/dL POC Glucose (mg/dL) 111 H 116 H 125 H (70-110) mg/dL Calcium (8.4-10.2) mg/dL 08/02/23 08/03/23 08/03/23 Range/Units 21:28 01:57 03:48 RBC (3.80-5.40) m/uL Hgb (11.4-16.0) gm/dL Hct (34.0-46.0) % Neutrophils # (1.3-7.7) k/uL APTT 36.6 H 52.4 H (22.0-30.0) sec Sodium (137-145) mmol/L Carbon Dioxide (22-30) mmol/L BUN (7-17) mg/dL Creatinine (0.52-1.04) mg/dL Glucose (74-99) mg/dL POC Glucose (mg/dL) 131 H (70-110) mg/dL Calcium (8.4-10.2) mg/dL 08/03/23 08/03/23 08/03/23 Range/Units 10:41 10:41 11:10 RBC 3.08 L (3.80-5.40) m/uL Hgb 9.2 L (11.4-16.0) gm/dL Hct 29.6 L (34.0-46.0) % Neutrophils # 7.8 H (1.3-7.7) k/uL APTT (22.0-30.0) sec Sodium 134 L (137-145) mmol/L Carbon Dioxide 19 L (22-30) mmol/L BUN 20 H (7-17) mg/dL Creatinine 1.44 H (0.52-1.04) mg/dL Glucose 168 H (74-99) mg/dL POC Glucose (mg/dL) 183 H (70-110) mg/dL Calcium 8.1 L (8.4-10.2) mg/dL Microbiology - Last 24 Hours (Table) 07/30/23 00:45 Blood Culture - Preliminary Blood 07/30/23 00:30 Blood Culture - Preliminary Blood
--- NOTE | 2023-08-03 14:43 | P.PN ---
Subjective Progress Note Date: 08/03/23 Patient is a 83-year-old female presents to ER with complaints of left foot discoloration and wound on the plantar aspect at the amputation site with minimal discharge. Worsening symptoms since last Sunday. Patient was also complaining of subjective fevers and chills last night. Patient otherwise den ies any pain. Denies any chest pain or shortness of breath. Denies any recent trauma/injury. Patient does have a history of left metatarsal amputation, atrial fibrillation on anticoagulation with Xarelto, hypertension, diabetes type 2 insulin- dependent, diabetic peripheral neuropathy and chronic kidney disease stage III. On admission foot x-ray showed extensive postsurgical changes, soft tissue point vascular calcifications compatible with diabetes and MRI is advised to assess for relief/osteomyelitis. Admission Tmax 99.8 and patient was tachycardic Laboratory data showed WBC 20.0 hemoglobin 10.6 and platelets 217 Sodium 128 potassium 4.4 chloride 98 bicarb is 20 BUN 14 creatinine 1.82 and blood sugar 104 and lactic acid 1.6 magnesium 1.7 07/31/2023 Patient is seen in follow-up this morning with multiple family members at the bedside awaiting vascular surgery. Vascular surgery has evaluated the patient today likely discussing left below the knee amputation. Patient also being foll owed by infectious disease maintained on IV antibiotics and will continue for now. Family making the decision further if they want to proceed with BKA. Patient is afebrile with no reported chest pain or shortness of breath. Patient denies any pain and reports to tolerating diet with no nausea or vomiting. continue monitoring blood sugars closely and adjust accordingly as patient did have low blood sugar reading this morning. 08/01/2023 Patient is seen in follow-up today and awaiting discussed with vascular surgery Dr. Don about surgical intervention and likely proceeding with left BKA. P atient is currently afebrile with no reports of chest pain or shortness of breath. Patient has been tolerating diet with no reported nausea or vomiting. Patient reports her pain is controlled at this time. Wound care also consulted for evaluation. Blood sugars have been on the lower side each night and adjusted long-acting medications. Recommend to monitor Accu-Cheks before meals and at bedtime and 2 AM as patient often becomes hypoglycemic in the middle the night. Will continue to modify insulins as needed. 08/02/2023 Patient is seen and evaluated in follow-up today currently n.p.o. as patient is scheduled to undergo left BKA today with Dr. Don. Blood sugars on the lower side more so throughout the night and adjusted long-acting medications once again. Patient currently continued on IV heparin and will discuss with vascular surgery when to resume anticoagulation. Patient continues on IV Zosyn and blood cultures thus far are negative. Infectious disease and cardiology following. Patient is currently afebrile with no reported chest pain or shortness of breath. Will await surgical report and also have PT/OT therapy evaluate the patient once stable from vascular surgery's perspective. 08/03/2023 Patient is seen and evaluated in follow-up this morning status post left BKA with vascular surgery and reports significant pain in the left lower extremity. Knee immobilizer noted and dressing changes being done to continue with local wound care per vascular surgery recommendations. Patient is being resumed on Xarelto this evening and IV heparin will be discontinued. Per nursing staff patient was retaining urine requiring straight catheterization last night. Recommend to continue monitoring intake and output and postvoid residuals. Patient is continued on Flomax which she takes chronically and has been resumed. Patient blood sugars being monitored and patient continues to have lower blood sugars in the morning have transition to 5 units of long-acting at night and will continue with 10 units long-acting daily. Recommend to continue with Accu- Cheks before meals and at bedtime and 2 AM. Patient is afebrile with no reported chest pain or shortness of breath. Patient reports that tolerating diet with no reported nausea or vomiting. 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 Patient will be going to [facility] on discharge and awaiting PT/OT therapy at this time. Review of systems: Constitutional: No reports of fatigue, fever, or chills Cardiovascular: No reports of chest pain or palpitations Respiratory: No reports of shortness of breath or cough GI: No reports of nausea, vomiting, or diarrhea : No reports of dysuria or retention, reports not urinating much Neurovascular: reports of generalized weakness and left lower extremity pain All medications have been reviewed PHYSICAL EXAMINATION: Patient is awake, alert and oriented x 2-3, baseline, no acute distress, well-de veloped, well-nourished, elderly appearing. HEENT: Normocephalic. Neck is supple. Pupils reactive. Nostrils clear. Oral cavity is moist. Neck reveals no JVD, carotid bruits, or thyromegaly. CHEST EXAMINATION: Trachea is central. Symmetrical expansion. Lung natarajan clear to auscultation and percussion. CARDIAC: Normal S1, S2 with no gallops. No murmurs ABDOMEN: Soft. Bowel sounds normal. No organomegaly. No abdominal bruits. Extremities: Status post left BKA with knee immobilizer noted and dressings currently changed that are dry and intact Neurologically awake, alert, oriented x2-3 with well-coordinated movements. No focal deficits noted, diffusely weak Skin: No rash or skin lesions. Psychiatric: Cooperative. Non-suicidal Musculoskeletal: No joint swelling or deformity. Normal range of motion. Assessment: Left foot ischemia with soft tissue swelling/cellulitis at the amputation site with open wound on the lateral plantar aspect and minimal discharge. Status post left BKA with vascular surgery postop day 1 Sepsis secondary to above History of nonhealing left foot wound Hypovolemic hyponatremia, improving History of congestive heart failure with preserved EF, not in exacerbation Acute on chronic kidney disease stage III due to diabetic nephrosclerosis History of left TMA Peripheral vascular disease Diabetes type 2 insulin-dependent, uncontrolled with hypoglycemia Severe peripheral neuropathy Paroxysmal atrial fibrillation on anticoagulation with Xarelto, currently continued on IV heparin and being transition to Xarelto this evening 08/03/2023 GI prophylaxis DVT prophylaxis No code Plan: Patient will be continued on IV antibiotics in the form of Zosyn with infectious disease following. Plan is to continue with IV antibiotics and will not require discharge antibiotics per ID. Vascular surgery following and patient is status post left BKA, postop day 1. C ontinue with pain management and use narcotics cautiously given patient's age. Patient to be fitted for stump vocational rehabilitation teacher and rigid dressing with case management following Plan will be to [facility] on discharge for continued PT/OT therapy Monitor renal function and will follow-up on repeat labs Continue monitoring Accu-Cheks and adjust insulins accordingly as patient has been having lower blood sugars in the morning. Long-acting medications adjusted once again and patient will receive lower dose at night and continue with 10 units during the day along with sliding scale regimen Patient having some mild urinary retention requiring straight catheterization likely anesthesia effect and will continue her Flomax and monitor postvoid residuals and continue with straight catheterization. If patient requires another straight catheterization then would recommend indwelling Don catheter for now. Monitor blood pressure closely for postoperative hypotension and resume accordingly. Cardiology following. Xarelto is currently on hold but is being resumed this evening per vascular surgery 08/03/2023. IV heparin will be discontinued. Will have PT/OT therapy evaluate the patient and discussed with patient and family on discharge planning. Plan is for well He on discharge. Case management following working on discharge planning and arrangements. Patient will require insurance authorization which will be was submitted. Likely discharge on Sunday Due to multiple complex medical issues, prognosis is guarded The impression and plan of care has been dictated by Mildred Swift, Nurse Practitioner as directed. Dr. Denise MD I have performed a history and examination and MDM of this patient, discussed the same with the dictator, and agree with the dictator's assessment and plan as written ,documented as a scribe. Based on total visit time, I have performed more than 50% of the visit. Objective - Vital Signs Vital signs: Vital Signs Temp 98.0 F 08/03/23 11:56 Pulse 69 08/03/23 11:56 Resp 16 08/03/23 11:56 BP 157/83 08/03/23 11:56 Pulse Ox 100 08/03/23 11:56 FiO2 Intake & Output 08/02/23 08/03/23 08/03/23 18:59 06:59 18:59 Intake Total 637.323 693.623 110 Output Total 75 950 Balance 562.323 -256.377 110 Weight 69.853 kg 69.853 kg Intake: IV 600 Intake, IV Titration 37.323 153.623 Amount Heparin Sod,Pork in 0.45% 37.323 153.623 NaCl 25,000 unit In 0.45 % NaCl 1 250ml.bag @ 12 UNITS/KG/HR 8.382 mls/hr IV .Q24H HILDA Rx#: [id number] Oral 540 110 Output: Urine 950 Straight 750 Estimated Blood Loss 75 Other: Voiding Method External Catheter External Catheter External Catheter # Voids 1 - Labs CBC & Chem 7: 08/03/23 10:41 08/03/23 10:41 Labs: Abnormal Lab Results - Last 24 Hours (Table) 08/02/23 08/02/23 08/02/23 Range/Units 16:52 20:11 21:28 RBC (3.80-5.40) m/uL Hgb (11.4-16.0) gm/dL Hct (34.0-46.0) % Neutrophils # (1.3-7.7) k/uL APTT 36.6 H (22.0-30.0) sec Sodium (137-145) mmol/L Carbon Dioxide (22-30) mmol/L BUN (7-17) mg/dL Creatinine (0.52-1.04) mg/dL Glucose (74-99) mg/dL POC Glucose (mg/dL) 116 H 125 H (70-110) mg/dL Calcium (8.4-10.2) mg/dL 08/03/23 08/03/23 08/03/23 Range/Units 01:57 03:48 10:41 RBC 3.08 L (3.80-5.40) m/uL Hgb 9.2 L (11.4-16.0) gm/dL Hct 29.6 L (34.0-46.0) % Neutrophils # 7.8 H (1.3-7.7) k/uL APTT 52.4 H (22.0-30.0) sec Sodium (137-145) mmol/L Carbon Dioxide (22-30) mmol/L BUN (7-17) mg/dL Creatinine (0.52-1.04) mg/dL Glucose (74-99) mg/dL POC Glucose (mg/dL) 131 H (70-110) mg/dL Calcium (8.4-10.2) mg/dL 08/03/23 08/03/23 Range/Units 10:41 11:10 RBC (3.80-5.40) m/uL Hgb (11.4-16.0) gm/dL Hct (34.0-46.0) % Neutrophils # (1.3-7.7) k/uL APTT (22.0-30.0) sec Sodium 134 L (137-145) mmol/L Carbon Dioxide 19 L (22-30) mmol/L BUN 20 H (7-17) mg/dL Creatinine 1.44 H (0.52-1.04) mg/dL Glucose 168 H (74-99) mg/dL POC Glucose (mg/dL) 183 H (70-110) mg/dL Calcium 8.1 L (8.4-10.2) mg/dL Microbiology - Last 24 Hours (Table) 07/30/23 00:45 Blood Culture - Preliminary Blood 07/30/23 00:30 Blood Culture - Preliminary Blood
[2023-08-03 16:14] LABS: Glucose,Whole Blood 111 mg/dL (70-110)
[2023-08-03] MEDS: RIVAROXABAN 15 MG TAB PO SCH (17:11)
[2023-08-03 19:51] LABS: Glucose,Whole Blood 138 mg/dL (70-110)
[2023-08-04 02:24] LABS: Glucose,Whole Blood 145 mg/dL (70-110)
[2023-08-04 06:27] LABS: Glucose,Whole Blood 111 mg/dL (70-110)
[2023-08-04 08:04] LABS: Basophils % (A) 0 %; Eosinophils # (A) 0.2 k/uL (0-0.7); Eosinophils % (A) 2 %; HCT 26.8 % (34.0-46.0); HGB 8.4 gm/dL (11.4-16.0); Lymphocytes # (A) 1.4 k/uL (1.0-4.8); Lymphocytes % (A) 13 %; MCH 29.7 pg (25.0-35.0); MCHC 31.4 g/dL (31.0-37.0); MCV 94.6 fL (80.0-100.0); Mean Platelet Volume 8.2; Monocytes # (A) 0.7 k/uL (0-1.0); Monocytes % (A) 6 %; Neutrophils # (A) 8.5 k/uL (1.3-7.7); Neutrophils % (A) 77 %; Platelet Count 228 k/uL (150-450); RBC 2.83 m/uL (3.80-5.40); RDW 13.9 % (11.5-15.5)
[2023-08-04 08:44] LABS: African American GFR (CKD) 37 (>60 ml/min/1.73 sqM); Anion Gap 8 mmol/L; Blood Urea Nitrogen 21 mg/dL (7-17); Calcium 8.2 mg/dL (8.4-10.2); Carbon Dioxide 17 mmol/L (22-30); Chloride 111 mmol/L (98-107); Glucose 105 mg/dL (74-99); Non-African American GFR(CKD) 32 (>60 ml/min/1.73 sqM); Potassium 4.4 mmol/L (3.5-5.1); Sodium 136 mmol/L (137-145)
[2023-08-04 11:31] LABS: Glucose,Whole Blood 180 mg/dL (70-110)
[2023-08-04] MEDS: HYDROmorphone 1 MG/ML 1 ML SYRINGE IVP STA (12:20)
[2023-08-04] MEDS: HYDROmorphone 0.5 MG/0.5 ML SYRINGE IVP PRN (15:20)
[2023-08-04] MEDS: DULoxetine HCL 30 MG CAPSULE.DR PO SCH (15:25)
--- NOTE | 2023-08-04 15:39 | P.PN ---
Subjective Progress Note Date: 08/04/23 Principal diagnosis: Reason for follow-up is left diabetic foot wound and gangrene Patient is a 83-year-old female with a past medical history significant for diabetes mellitus hypertension atrial fibrillation heart failure patient did have history of left diabetic foot infection requiring transmetatarsal amputation and did have a chronic nonhealing wound on the plan tar aspect of the left foot patient now presenting to the hospital with discoloration to the left foot.Patient is status post left below the knee amputation completed on 08/02/2023 On today's evaluation that is 08/04/2023,the patient remains to be afebrile, patient is on room air not requiring supplemental oxygen and denies any shortness of breath no chest pain or cough.Patient denies having any nausea or vomiting, no abdominal pain and no diarrhea has been reported, pain to the left AKA stump is currently controlled. Patient white count is 11, creatinine is 1.52 blood culture negative Objective - Vital Signs Vital signs: Vital Signs Temp 97.5 F L 08/04/23 08:00 Pulse 74 08/04/23 08:00 Resp 17 08/04/23 08:00 BP 161/74 08/04/23 08:00 Pulse Ox 98 08/04/23 08:00 FiO2 Intake & Output 08/03/23 08/04/23 08/04/23 18:59 06:59 18:59 Intake Total 220 120 Output Total 0 400 125 Balance 220 -400 -5 Weight 69.853 kg Intake: Oral 220 120 Output: Urine 0 400 125 Straight 400 Other: Voiding Method External Catheter External Catheter # Voids 0 - Exam GENERAL DESCRIPTION: An elderly female lying in bed in no distress RESPIRATORY SYSTEM: Unlabored breathing , decreased breath sounds at bases HEART: S1 S2 regular rate and rhythm , ABDOMEN: Soft , no tenderness EXTREMITIES: Left BKA stump is covered in OR dressing - Labs CBC & Chem 7: 08/04/23 07:48 08/04/23 07:48 Labs: Abnormal Lab Results - Last 24 Hours (Table) 08/03/23 08/03/23 08/04/23 Range/Units 16:12 19:49 02:21 WBC (3.8-10.6) k/uL RBC (3.80-5.40) m/uL Hgb (11.4-16.0) gm/dL Hct (34.0-46.0) % Neutrophils # (1.3-7.7) k/uL APTT (22.0-30.0) sec Sodium (137-145) mmol/L Chloride (98-107) mmol/L Carbon Dioxide (22-30) mmol/L BUN (7-17) mg/dL Creatinine (0.52-1.04) mg/dL Glucose (74-99) mg/dL POC Glucose (mg/dL) 111 H 138 H 145 H (70-110) mg/dL Calcium (8.4-10.2) mg/dL 08/04/23 08/04/23 08/04/23 Range/Units 06:25 07:48 07:48 WBC 11.0 H (3.8-10.6) k/uL RBC 2.83 L (3.80-5.40) m/uL Hgb 8.4 L (11.4-16.0) gm/dL Hct 26.8 L (34.0-46.0) % Neutrophils # 8.5 H (1.3-7.7) k/uL APTT 31.7 H (22.0-30.0) sec Sodium (137-145) mmol/L Chloride (98-107) mmol/L Carbon Dioxide (22-30) mmol/L BUN (7-17) mg/dL Creatinine (0.52-1.04) mg/dL Glucose (74-99) mg/dL POC Glucose (mg/dL) 111 H (70-110) mg/dL Calcium (8.4-10.2) mg/dL 08/04/23 08/04/23 Range/Units 07:48 11:28 WBC (3.8-10.6) k/uL RBC (3.80-5.40) m/uL Hgb (11.4-16.0) gm/dL Hct (34.0-46.0) % Neutrophils # (1.3-7.7) k/uL APTT (22.0-30.0) sec Sodium 136 L (137-145) mmol/L Chloride 111 H (98-107) mmol/L Carbon Dioxide 17 L (22-30) mmol/L BUN 21 H (7-17) mg/dL Creatinine 1.52 H (0.52-1.04) mg/dL Glucose 105 H (74-99) mg/dL POC Glucose (mg/dL) 180 H (70-110) mg/dL Calcium 8.2 L (8.4-10.2) mg/dL Microbiology - Last 24 Hours (Table) 07/30/23 00:45 Blood Culture - Final Blood 07/30/23 00:30 Blood Culture - Final Blood Assessment and Plan (1) Gangrene of left foot Current Visit: Yes Status: Acute Code(s): I96 - GANGRENE, NOT ELSEWHERE CLASSIFIED SNOMED Code(s): 68821870683305569 (2) Diabetic infection of left foot Current Visit: Yes Status: Acute Code(s): E11.628 - TYPE 2 DIABETES MELLITUS WITH OTHER SKIN COMPLICATIONS; L08.9 - LOCAL INFECTION OF THE SKIN AND SUBCUTANEOUS TISSUE, UNSP SNOMED Code(s): 41953910 (3) Diabetic foot ulcer Current Visit: No Status: Acute Code(s): E11.621 - TYPE 2 DIABETES MELLITUS WITH FOOT ULCER; L97.509 - NON-PRESSURE CHRONIC ULCER OTH PRT UNSP FOOT W UNSP SEVERITY SNOMED Code(s): 394603882 Plan: 1patient presented to hospital with left diabetic foot infection in this patient who did have a chronic nonhealing wound on the plantar aspect however features are mostly suggestive of ischemia on today's visit last culture pos itive for Pseudomonas E. coli anaerobes 2-patient is status post left below the knee amputation completed on 08/02/2023 3-patient did have resolution of the fever white count slightly up today and will be monitored closely patient continue with empiric Zosyn while inpatient Family at the bedside questions answered Dictation was produced using [email or web address] dictation software. please excuse any grammatical, word or spelling errors. Time with Patient: Less than 30
[2023-08-04 16:21] LABS: Glucose,Whole Blood 186 mg/dL (70-110)
[2023-08-04 20:07] LABS: Glucose,Whole Blood 171 mg/dL (70-110)
[2023-08-05] MEDS: HYDROcodone/APAP 7.5-325MG 1 EACH TAB PO PRN (01:47)
[2023-08-05 02:23] LABS: Glucose,Whole Blood 106 mg/dL (70-110)
[2023-08-05 06:08] LABS: Glucose,Whole Blood 88 mg/dL (70-110)
--- NOTE | 2023-08-05 06:51 | P.PN ---
Subjective Progress Note Date: 08/04/23 Patient is a 83-year-old female presents to ER with complaints of left foot discoloration and wound on the plantar aspect at the amputation site with minimal discharge. Worsening symptoms since last Sunday. Patient was also complaining of subjective fevers and chills last night. Patient otherwise denies any pain. Denies any chest pain or shortness of breath. Denies any recent trauma/injury. Patient does have a history of left metatarsal amputation, atrial fibrillation on anticoagulation with Xarelto, hypertension, diabetes type 2 insulin- dependent, diabetic peripheral neuropathy and chronic kidney disease stage III. On admission foot x-ray showed extensive postsurgical changes, soft tissue point vascular calcifications compatible with diabetes and MRI is advised to assess for relief/osteomyelitis. Admission Tmax 99.8 and patient was tachycardic Laboratory data showed WBC 20.0 hemoglobin 10.6 and platelets 217 Sodium 128 potassium 4.4 chloride 98 bicarb is 20 BUN 14 creatinine 1.82 and bl ood sugar 104 and lactic acid 1.6 magnesium 1.7 07/31/2023 Patient is seen in follow-up this morning with multiple family members at the bedside awaiting vascular surgery. Vascular surgery has evaluated the patient today likely discussing left below the knee amputation. Patient also being followed by infectious disease maintained on IV antibiotics and will continue for now. Family making the decision further if they want to proceed with BKA. Patient is afebrile with no reported chest pain or shortness of breath. Patient denies any pain and reports to tolerating diet with no nausea or vomiting. continue monitoring blood sugars closely and adjust accordingly as patient did have low blood sugar reading this morning. 08/01/2023 Patient is seen in follow-up today and awaiting discussed with vascular surgery Dr. Austin about surgical intervention and likely proceeding with left BKA. Lisandra ent is currently afebrile with no reports of chest pain or shortness of breath. Patient has been tolerating diet with no reported nausea or vomiting. Patient reports her pain is controlled at this time. Wound care also consulted for evaluation. Blood sugars have been on the lower side each night and adjusted long-acting medications. Recommend to monitor Accu-Cheks before meals and at bedtime and 2 AM as patient often becomes hypoglycemic in the middle the night. Will continue to modify insulins as needed. 08/02/2023 Patient is seen and evaluated in follow-up today currently n.p.o. as patient is scheduled to undergo left BKA today with Dr. Austin. Blood sugars on the lower side more so throughout the night and adjusted long-acting medications once again. Patient currently continued on IV heparin and will discuss with vascular surgery when to resume anticoagulation. Patient continues on IV Zosyn and blood cultures thus far are negative. Infectious disease and cardiology following. Patient is currently afebrile with no reported chest pain or shortness of breath. Will await surgical report and also have PT/OT therapy evaluate the patient once stable from vascular surgery's perspective. 08/03/2023 Patient is seen and evaluated in follow-up this morning status post left BKA with vascular surgery and reports significant pain in the left lower extremity. Knee immobilizer noted and dressing changes being done to continue with local wound care per vascular surgery recommendations. Patient is being resumed on Xarelto this evening and IV heparin will be discontinued. Per nursing staff patient was retaining urine requiring straight catheterization last night. Recommend to continue monitoring intake and output and postvoid residuals. Patient is continued on Flomax which she takes chronically and has been resumed. Patient blood sugars being monitored and patient continues to have lower blood sugars in the morning have transition to 5 units of long-acting at night and will continue with 10 units long-acting daily. Recommend to continue with Accu- Cheks before meals and at bedtime and 2 AM. Patient is afebrile with no reported chest pain or shortness of breath. Patient reports that tolerating diet with no reported nausea or vomiting. Case management is following working on stump food sanitarian and rigid dressing per vascular surgery. Patient will be going to [facility] on discharge and awaiting PT/OT therapy at this time. 08/04/2023 Patient evaluated today resting in bed with family at the bedside. She is postoperative day #2 left BKA. Continues to report pain to the left leg 8/10 and requesting additional pain medications. Patient is being monitored for urinary retention so far not has required inwelling austin catheter. Patient remains on IV zosyn. Labs today reveal BUN of 21 and creatinine of 1.52. Review of systems: Constitutional: No reports of fatigue, fever, or chills Cardiovascular: No reports of chest pain or palpitations Respiratory: No reports of shortness of breath or cough GI: No reports of nausea, vomiting, or diarrhea : No reports of dysuria or retention, reports not urinating much Neurovascular: reports of generalized weakness and left lower extremity pain All medications have been reviewed PHYSICAL EXAMINATION: Patient is awake, alert and oriented x 2-3, baseline, no acute distress, well- developed, well-nourished, elderly appearing. HEENT: Normocephalic. Neck is supple. Pupils reactive. Nostrils clear. Oral cavity is moist. Neck reveals no JVD, carotid bruits, or thyromegaly. CHEST EXAMINATION: Trachea is central. Symmetrical expansion. Lung natarajan clear to auscultation and percussion. CARDIAC: Normal S1, S2 with no gallops. No murmurs ABDOMEN: Soft. Bowel sounds normal. No organomegaly. No abdominal bruits. Extremities: Status post left BKA with knee immobilizer noted and dressings currently changed that are dry and intact Neurologically awake, alert, oriented x2-3 with well-coordinated movements. No focal deficits noted, diffusely weak Skin: No rash or skin lesions. Psychiatric: Cooperative. Non-suicidal Musculoskeletal: No joint swelling or deformity. Normal range of motion. Assessment: Left foot ischemia with soft tissue swelling/cellulitis at the amputation site with open wound on the lateral plantar aspect and minimal discharge. Status post left BKA with vascular surgery postop day 2 Sepsis secondary to above History of nonhealing left foot wound Hypovolemic hyponatremia, improving History of congestive heart failure with preserved EF, not in exacerbation Acute on chronic kidney disease stage III due to diabetic nephrosclerosis History of left TMA Peripheral vascular disease Diabetes type 2 insulin-dependent, uncontrolled with hypoglycemia Severe peripheral neuropathy Paroxysmal atrial fibrillation on anticoagulation with Xarelto GI prophylaxis DVT prophylaxis No code Plan: Patient will be continued on IV antibiotics in the form of Zosyn with infectious disease following. Plan is to continue with IV antibiotics and will not require discharge antibiotics per ID. Vascular surgery following and patient is status post left BKA, postop day 1. Continue with pain management and use narcotics cautiously given patient's age. Patient to be fitted for stump food sanitarian and rigid dressing with case management following Plan will be to [facility] on discharge for continued PT/OT therapy Monitor renal function and will follow-up on repeat labs Continue monitoring Accu-Cheks and adjust insulins accordingly as patient has been having lower blood sugars in the morning. Long-acting medications adjusted once again and patient will receive lower dose at night and continue with 10 units during the day along with sliding scale regimen Patient having some mild urinary retention requiring straight catheterization likely anesthesia effect and will continue her Flomax and monitor postvoid residuals and continue with straight catheterization. If patient requires another straight catheterization then would recommend indwelling Austin catheter for now. Xarelto has been resumed postoperatively. Will have PT/OT therapy evaluate the patient and discussed with patient and family on discharge planning. Plan is for [facility] on discharge. Case management following working on discharge planning and arrangements. Patient will require insurance authorization which will be was submitted. Likely discharge on Sunday Pain medications have been adjusted with the discontinuation of morphine, IV dilaudid has been added as well as cymbalta. Due to multiple complex medical issues, prognosis is guarded The impression and plan of care has been dictated by Estelita Hurst, Nurse Practitioner as directed. Dr. Denise MD I have performed a history and physical examination and medical decision making of this patient, discussed the same with the dictator, and agree with the dictators assessment and plan as written, documented as a scribe. Based on total visit time, I have performed more than 50% of this visit. Objective - Vital Signs Vital signs: Vital Signs Temp 97.5 F L 08/04/23 08:00 Pulse 74 08/04/23 08:00 Resp 17 08/04/23 08:00 BP 161/74 08/04/23 08:00 Pulse Ox 98 08/04/23 08:00 FiO2 Intake & Output 08/03/23 08/04/23 08/04/23 18:59 06:59 18:59 Intake Total 220 120 Output Total 0 400 125 Balance 220 -400 -5 Weight 69.853 kg Intake: Oral 220 120 Output: Urine 0 400 125 Straight 400 Other: Voiding Method External Catheter External Catheter # Voids 0 - Labs CBC & Chem 7: 08/04/23 07:48 08/04/23 07:48 Labs: Abnormal Lab Results - Last 24 Hours (Table) 08/03/23 08/03/23 08/03/23 Range/Units 10:41 16:12 19:49 WBC (3.8-10.6) k/uL RBC (3.80-5.40) m/uL Hgb (11.4-16.0) gm/dL Hct (34.0-46.0) % Neutrophils # (1.3-7.7) k/uL APTT (22.0-30.0) sec Sodium 134 L (137-145) mmol/L Chloride (98-107) mmol/L Carbon Dioxide 19 L (22-30) mmol/L BUN 20 H (7-17) mg/dL Creatinine 1.44 H (0.52-1.04) mg/dL Glucose 168 H (74-99) mg/dL POC Glucose (mg/dL) 111 H 138 H (70-110) mg/dL Calcium 8.1 L (8.4-10.2) mg/dL 08/04/23 08/04/23 08/04/23 Range/Units 02:21 06:25 07:48 WBC (3.8-10.6) k/uL RBC (3.80-5.40) m/uL Hgb (11.4-16.0) gm/dL Hct (34.0-46.0) % Neutrophils # (1.3-7.7) k/uL APTT 31.7 H (22.0-30.0) sec Sodium (137-145) mmol/L Chloride (98-107) mmol/L Carbon Dioxide (22-30) mmol/L BUN (7-17) mg/dL Creatinine (0.52-1.04) mg/dL Glucose (74-99) mg/dL POC Glucose (mg/dL) 145 H 111 H (70-110) mg/dL Calcium (8.4-10.2) mg/dL 08/04/23 08/04/23 08/04/23 Range/Units 07:48 07:48 11:28 WBC 11.0 H (3.8-10.6) k/uL RBC 2.83 L (3.80-5.40) m/uL Hgb 8.4 L (11.4-16.0) gm/dL Hct 26.8 L (34.0-46.0) % Neutrophils # 8.5 H (1.3-7.7) k/uL APTT (22.0-30.0) sec Sodium 136 L (137-145) mmol/L Chloride 111 H (98-107) mmol/L Carbon Dioxide 17 L (22-30) mmol/L BUN 21 H (7-17) mg/dL Creatinine 1.52 H (0.52-1.04) mg/dL Glucose 105 H (74-99) mg/dL POC Glucose (mg/dL) 180 H (70-110) mg/dL Calcium 8.2 L (8.4-10.2) mg/dL Assessment and Plan Time with Patient: Less than 30
[2023-08-05 07:59] LABS: Basophils % (A) 0 %; Eosinophils # (A) 0.2 k/uL (0-0.7); Eosinophils % (A) 2 %; HCT 26.7 % (34.0-46.0); HGB 8.6 gm/dL (11.4-16.0); Lymphocytes # (A) 1.7 k/uL (1.0-4.8); Lymphocytes % (A) 15 %; MCH 30.3 pg (25.0-35.0); MCHC 32.1 g/dL (31.0-37.0); MCV 94.2 fL (80.0-100.0); Mean Platelet Volume 8.4; Monocytes # (A) 0.6 k/uL (0-1.0); Monocytes % (A) 6 %; Neutrophils # (A) 8.1 k/uL (1.3-7.7); Neutrophils % (A) 74 %; Platelet Count 218 k/uL (150-450); RBC 2.83 m/uL (3.80-5.40); RDW 14.1 % (11.5-15.5)
[2023-08-05 08:07] LABS: African American GFR (CKD) 36 (>60 ml/min/1.73 sqM); Anion Gap 8 mmol/L; Blood Urea Nitrogen 20 mg/dL (7-17); Calcium 8.2 mg/dL (8.4-10.2); Carbon Dioxide 18 mmol/L (22-30); Chloride 112 mmol/L (98-107); Glucose 78 mg/dL (74-99); Non-African American GFR(CKD) 31 (>60 ml/min/1.73 sqM); Potassium 4.4 mmol/L (3.5-5.1); Sodium 138 mmol/L (137-145)
[2023-08-05 11:29] LABS: Glucose,Whole Blood 186 mg/dL (70-110)
--- NOTE | 2023-08-05 14:49 | P.PN ---
Subjective Progress Note Date: 08/05/23 Principal diagnosis: Reason for follow-up is left diabetic foot wound and gangrene Patient is a 83-year-old female with a past medical history significant for diabetes mellitus hypertension atrial fibrillation heart failure patient did have history of left diabetic foot infection requiring transmetatarsal amputation and did have a chronic nonhealing wound on the plan tar aspect of the left foot patient now presenting to the hospital with discoloration to the left foot.Patient is status post left below the knee amputation completed on 08/02/2023 On today's evaluation that is 08/05/2023, the patient continues to be afebrile, the patient is on room air and breathing comfortably, the Pt denies having any chest pain or cough, the patient denies having any abdominal pain no vomiting or any diarrhea pain to the left BKA stump is currently controlled. Patient white count is 11 same as yesterday creatinine is 1.54 blood culture negative Objective - Vital Signs Vital signs: Vital Signs Temp 98.5 F 08/05/23 12:17 Pulse 83 08/05/23 12:17 Resp 18 08/05/23 12:17 BP 153/70 08/05/23 12:17 Pulse Ox 98 08/05/23 12:17 FiO2 Intake & Output 08/04/23 08/05/23 08/05/23 18:59 06:59 18:59 Intake Total 120 600 Output Total 375 1250 300 Balance -255 -1250 300 Intake: Oral 120 600 Output: Urine 375 1250 300 Straight 650 Other: Voiding Method External Catheter External Catheter - Exam GENERAL DESCRIPTION: An elderly female lying in bed in no distress RESPIRATORY SYSTEM: Unlabored breathing , decreased breath sounds at bases HEART: S1 S2 regular rate and rhythm , ABDOMEN: Soft , no tenderness EXTREMITIES: Left BKA stump is covered in OR dressing - Labs CBC & Chem 7: 08/05/23 07:29 08/05/23 07:29 Labs: Abnormal Lab Results - Last 24 Hours (Table) 08/04/23 08/04/23 08/05/23 Range/Units 16:19 20:06 07:29 WBC 11.0 H (3.8-10.6) k/uL RBC 2.83 L (3.80-5.40) m/uL Hgb 8.6 L (11.4-16.0) gm/dL Hct 26.7 L (34.0-46.0) % Neutrophils # 8.1 H (1.3-7.7) k/uL Chloride (98-107) mmol/L Carbon Dioxide (22-30) mmol/L BUN (7-17) mg/dL Creatinine (0.52-1.04) mg/dL POC Glucose (mg/dL) 186 H 171 H (70-110) mg/dL Calcium (8.4-10.2) mg/dL 08/05/23 08/05/23 Range/Units 07:29 11:27 WBC (3.8-10.6) k/uL RBC (3.80-5.40) m/uL Hgb (11.4-16.0) gm/dL Hct (34.0-46.0) % Neutrophils # (1.3-7.7) k/uL Chloride 112 H (98-107) mmol/L Carbon Dioxide 18 L (22-30) mmol/L BUN 20 H (7-17) mg/dL Creatinine 1.54 H (0.52-1.04) mg/dL POC Glucose (mg/dL) 186 H (70-110) mg/dL Calcium 8.2 L (8.4-10.2) mg/dL Microbiology - Last 24 Hours (Table) 07/30/23 00:45 Blood Culture - Final Blood 07/30/23 00:30 Blood Culture - Final Blood Assessment and Plan (1) Gangrene of left foot Current Visit: Yes Status: Acute Code(s): I96 - GANGRENE, NOT ELSEWHERE CLASSIFIED SNOMED Code(s): 77817411626778394 (2) Diabetic infection of left foot Current Visit: Yes Status: Acute Code(s): E11.628 - TYPE 2 DIABETES MELLITUS WITH OTHER SKIN COMPLICATIONS; L08.9 - LOCAL INFECTION OF THE SKIN AND SUBCUTANEOUS TISSUE, UNSP SNOMED Code(s): 05274565 (3) Diabetic foot ulcer Current Visit: No Status: Acute Code(s): E11.621 - TYPE 2 DIABETES MELLITUS WITH FOOT ULCER; L97.509 - NON-PRESSURE CHRONIC ULCER OTH PRT UNSP FOOT W UNSP SEVERITY SNOMED Code(s): 370741511 Plan: 1patient presented to hospital with left diabetic foot infection in this patient who did have a chronic nonhealing wound on the plantar aspect however features are mostly suggestive of ischemia on today's visit last culture positive for Pseudomonas E. coli anaerobes 2-patient is status post left below the knee amputation completed on 08/02/2023 3-patient did have resolution of the fever white count same as yesterday and not significant elevated, will be monitored closely patient continue with empiric Zosyn while inpatient Family at the bedside questions answered Dictation was produced using [employer] dictation software. please excuse any grammatical, word or spelling errors. Time with Patient: Less than 30
[2023-08-05 16:31] LABS: Glucose,Whole Blood 145 mg/dL (70-110)
[2023-08-05 20:53] LABS: Glucose,Whole Blood 194 mg/dL (70-110)
--- NOTE | 2023-08-05 21:38 | P.PN ---
Subjective Progress Note Date: 08/05/23 Patient is a 83-year-old female presents to ER with complaints of left foot discoloration and wound on the plantar aspect at the amputation site with minimal discharge. Worsening symptoms since last Sunday. Patient was also complaining of subjective fevers and chills last night. Patient otherwise denies any pain. Denies any chest pain or shortness of breath. Denies any recent trauma/injury. Patient does have a history of left metatarsal amputation, atrial fibrillation on anticoagulation with Xarelto, hypertension, diabetes type 2 insulin- dependent, diabetic peripheral neuropathy and chronic kidney disease stage III. On admission foot x-ray showed extensive postsurgical changes, soft tissue point vascular calcifications compatible with diabetes and MRI is advised to assess for relief/osteomyelitis. Admission Tmax 99.8 and patient was tachycardic Laboratory data showed WBC 20.0 hemoglobin 10.6 and platelets 217 Sodium 128 potassium 4.4 chloride 98 bicarb is 20 BUN 14 creatinine 1.82 and bl ood sugar 104 and lactic acid 1.6 magnesium 1.7 07/31/2023 Patient is seen in follow-up this morning with multiple family members at the bedside awaiting vascular surgery. Vascular surgery has evaluated the patient today likely discussing left below the knee amputation. Patient also being followed by infectious disease maintained on IV antibiotics and will continue for now. Family making the decision further if they want to proceed with BKA. Patient is afebrile with no reported chest pain or shortness of breath. Patient denies any pain and reports to tolerating diet with no nausea or vomiting. continue monitoring blood sugars closely and adjust accordingly as patient did have low blood sugar reading this morning. 08/01/2023 Patient is seen in follow-up today and awaiting discussed with vascular surgery Dr. Austin about surgical intervention and likely proceeding with left BKA. Lisandra ent is currently afebrile with no reports of chest pain or shortness of breath. Patient has been tolerating diet with no reported nausea or vomiting. Patient reports her pain is controlled at this time. Wound care also consulted for evaluation. Blood sugars have been on the lower side each night and adjusted long-acting medications. Recommend to monitor Accu-Cheks before meals and at bedtime and 2 AM as patient often becomes hypoglycemic in the middle the night. Will continue to modify insulins as needed. 08/02/2023 Patient is seen and evaluated in follow-up today currently n.p.o. as patient is scheduled to undergo left BKA today with Dr. Austin. Blood sugars on the lower side more so throughout the night and adjusted long-acting medications once again. Patient currently continued on IV heparin and will discuss with vascular surgery when to resume anticoagulation. Patient continues on IV Zosyn and blood cultures thus far are negative. Infectious disease and cardiology following. Patient is currently afebrile with no reported chest pain or shortness of breath. Will await surgical report and also have PT/OT therapy evaluate the patient once stable from vascular surgery's perspective. 08/03/2023 Patient is seen and evaluated in follow-up this morning status post left BKA with vascular surgery and reports significant pain in the left lower extremity. Knee immobilizer noted and dressing changes being done to continue with local wound care per vascular surgery recommendations. Patient is being resumed on Xarelto this evening and IV heparin will be discontinued. Per nursing staff patient was retaining urine requiring straight catheterization last night. Recommend to continue monitoring intake and output and postvoid residuals. Patient is continued on Flomax which she takes chronically and has been resumed. Patient blood sugars being monitored and patient continues to have lower blood sugars in the morning have transition to 5 units of long-acting at night and will continue with 10 units long-acting daily. Recommend to continue with Accu- Cheks before meals and at bedtime and 2 AM. Patient is afebrile with no reported chest pain or shortness of breath. Patient reports that tolerating diet with no reported nausea or vomiting. Case management is following working on stump steam clothes press operator and rigid dressing per vascular surgery. Patient will be going to [facility] on discharge and awaiting PT/OT therapy at this time. 08/04/2023 Patient evaluated today resting in bed with family at the bedside. She is postoperative day #2 left BKA. Continues to report pain to the left leg 8/10 and requesting additional pain medications. Patient is being monitored for urinary retention so far not has required inwelling austin catheter. Patient remains on IV zosyn. Labs today reveal BUN of 21 and creatinine of 1.52. 08/05/2023 Patient is evaluated in follow up today family at the bedside. She is resting in bed and has been bed rest since surgery. Postoperative day #3 left BKA. Has stump steam clothes press operator and rigid dressing in place. Immobilizer in place as well. Patient was taken off the IV morphine yesterday; IV dilaudid added as well as increase in norco. Cymbalta has also been added. Patient now reports improvement in her pain control down from 8 to 2-3. White blood cell count today is 11.0, hgb stable at 8.6. Sodium 138, potassium 4.4, BUN 20, creatinine 1.54. Hemodynamically she is stable. Review of systems: Constitutional: No reports of fatigue, fever, or chills Cardiovascular: No reports of chest pain or palpitations Respiratory: No reports of shortness of breath or cough GI: No reports of nausea, vomiting, or diarrhea : No reports of dysuria or retention, reports not urinating much Neurovascular: reports of generalized weakness and left lower extremity pain All medications have been reviewed PHYSICAL EXAMINATION: Patient is awake, alert and oriented x 2-3, baseline, no acute distress, well- developed, well-nourished, elderly appearing. HEENT: Normocephalic. Neck is supple. Pupils reactive. Nostrils clear. Oral cavi ty is moist. Neck reveals no JVD, carotid bruits, or thyromegaly. CHEST EXAMINATION: Trachea is central. Symmetrical expansion. Lung natarajan clear to auscultation and percussion. CARDIAC: Normal S1, S2 with no gallops. No murmurs ABDOMEN: Soft. Bowel sounds normal. No organomegaly. No abdominal bruits. Extremities: Status post left BKA with knee immobilizer noted and dressings currently changed that are dry and intact Neurologically awake, alert, oriented x2-3 with well-coordinated movements. No focal deficits noted, diffusely weak Skin: No rash or skin lesions. Psychiatric: Cooperative. Non-suicidal Musculoskeletal: No joint swelling or deformity. Normal range of motion. Assessment: Left foot ischemia with soft tissue swelling/cellulitis at the amputation site with open wound on the lateral plantar aspect and minimal discharge. Status post left BKA with vascular surgery postop day 3 Sepsis secondary to above History of nonhealing left foot wound Urinary retention postoperatively likely side effect from anesthesia. IDC placed. Hypovolemic hyponatremia, improving History of congestive heart failure with preserved EF, not in exacerbation Acute on chronic kidney disease stage III due to diabetic nephrosclerosis History of left TMA Peripheral vascular disease Diabetes type 2 insulin-dependent, uncontrolled with hypoglycemia Severe peripheral neuropathy Paroxysmal atrial fibrillation on anticoagulation with Xarelto GI prophylaxis DVT prophylaxis No code Plan: Patient will be continued on IV antibiotics in the form of Zosyn with infectious disease following. Plan is to continue with IV antibiotics and will not require discharge antibiotics per ID. Vascular surgery following and patient is status post left BKA, postop day 1. Continue with pain management and use narcotics cautiously given patient's age. Patient to be fitted for stump steam clothes press operator and rigid dressing with case management following Plan will be to [facility] on discharge for continued PT/OT therapy Monitor renal function and will follow-up on repeat labs Continue monitoring Accu-Cheks and adjust insulins accordingly as patient has been having lower blood sugars in the morning. Patient having some mild urinary retention did require indwelling catheter placement; continues on flomax. Xarelto has been resumed postoperatively. Will have PT/OT therapy evaluate the patient and discussed with patient and family on discharge planning. Plan is for [facility] on discharge. Case management following working on discharge planning and arrangements. Patient will require insurance authorization which will be was submitted. Likely discharge on Sunday Pain medications have been adjusted with the discontinuation of morphine, IV dilaudid has been added as well as cymbalta. Patient reports improvement in pain level. Due to multiple complex medical issues, prognosis is guarded The impression and plan of care has been dictated by Estelita Hurst, Nurse Practitioner as directed. Dr. Denise MD I have performed a history and physical examination and medical decision making of this patient, discussed the same with the dictator, and agree with the dictators assessment and plan as written, documented as a scribe. Based on total visit time, I have performed more than 50% of this visit. Objective - Vital Signs Vital signs: Vital Signs Temp 98.5 F 08/05/23 12:17 Pulse 83 08/05/23 12:17 Resp 18 08/05/23 12:17 BP 153/70 08/05/23 12:17 Pulse Ox 98 08/05/23 12:17 FiO2 Intake & Output 08/04/23 08/05/23 08/05/23 18:59 06:59 18:59 Intake Total 120 600 Output Total 375 1250 300 Balance -255 -1250 300 Intake: Oral 120 600 Output: Urine 375 1250 300 Straight 650 Other: Voiding Method External Catheter External Catheter - Labs CBC & Chem 7: 08/05/23 07:29 08/05/23 07:29 Labs: Abnormal Lab Results - Last 24 Hours (Table) 08/04/23 08/04/23 08/05/23 Range/Units 16:19 20:06 07:29 WBC 11.0 H (3.8-10.6) k/uL RBC 2.83 L (3.80-5.40) m/uL Hgb 8.6 L (11.4-16.0) gm/dL Hct 26.7 L (34.0-46.0) % Neutrophils # 8.1 H (1.3-7.7) k/uL Chloride (98-107) mmol/L Carbon Dioxide (22-30) mmol/L BUN (7-17) mg/dL Creatinine (0.52-1.04) mg/dL POC Glucose (mg/dL) 186 H 171 H (70-110) mg/dL Calcium (8.4-10.2) mg/dL 08/05/23 08/05/23 Range/Units 07:29 11:27 WBC (3.8-10.6) k/uL RBC (3.80-5.40) m/uL Hgb (11.4-16.0) gm/dL Hct (34.0-46.0) % Neutrophils # (1.3-7.7) k/uL Chloride 112 H (98-107) mmol/L Carbon Dioxide 18 L (22-30) mmol/L BUN 20 H (7-17) mg/dL Creatinine 1.54 H (0.52-1.04) mg/dL POC Glucose (mg/dL) 186 H (70-110) mg/dL Calcium 8.2 L (8.4-10.2) mg/dL Microbiology - Last 24 Hours (Table) 07/30/23 00:45 Blood Culture - Final Blood 07/30/23 00:30 Blood Culture - Final Blood Assessment and Plan Time with Patient: Less than 30
[2023-08-06 02:02] LABS: Glucose,Whole Blood 138 mg/dL (70-110)
[2023-08-06 02:06] VITALS: RESP 16
[2023-08-06 06:31] LABS: Glucose,Whole Blood 124 mg/dL (70-110)
[2023-08-06 07:56] LABS: Basophils % (A) 0 %; Eosinophils # (A) 0.2 k/uL (0-0.7); Eosinophils % (A) 2 %; HCT 26.5 % (34.0-46.0); HGB 8.7 gm/dL (11.4-16.0); Lymphocytes # (A) 1.3 k/uL (1.0-4.8); Lymphocytes % (A) 11 %; MCH 31.2 pg (25.0-35.0); MCHC 32.8 g/dL (31.0-37.0); Mean Platelet Volume 7.7; Monocytes # (A) 0.6 k/uL (0-1.0); Monocytes % (A) 5 %; Neutrophils # (A) 9.2 k/uL (1.3-7.7); Neutrophils % (A) 80 %; Platelet Count 245 k/uL (150-450); RBC 2.79 m/uL (3.80-5.40); RDW 14.2 % (11.5-15.5); WBC 11.4 k/uL (3.8-10.6)
[2023-08-06 08:51] VITALS: TEMP 98.7
[2023-08-06 08:51] LABS: African American GFR (CKD) 37 (>60 ml/min/1.73 sqM); Anion Gap 8 mmol/L; Blood Urea Nitrogen 21 mg/dL (7-17); Calcium 8.4 mg/dL (8.4-10.2); Carbon Dioxide 19 mmol/L (22-30); Chloride 110 mmol/L (98-107); Glucose 114 mg/dL (74-99); Magnesium 2.1 mg/dL (1.6-2.3); Non-African American GFR(CKD) 32 (>60 ml/min/1.73 sqM); Potassium 4.7 mmol/L (3.5-5.1); Sodium 137 mmol/L (137-145)
--- NOTE | 2023-08-06 09:21 | P.PN ---
Subjective Progress Note Date: 08/06/23 Principal diagnosis: Left foot ischemia She is seen and examined today as a follow-up. She is postop day #4 for a left below the knee amputation. She states pain has been well-managed. Sunday [facility] had seen patient and she has a stump green plumber and rigid dressing in place as well as knee immobilizer. She has been afebrile. Plan is for discharge to subacute rehab. Objective - Vital Signs Vital signs: Vital Signs Temp 98.7 F 08/06/23 08:00 Pulse 83 08/06/23 08:00 Resp 16 08/06/23 08:00 BP 150/72 08/06/23 08:00 Pulse Ox 96 08/06/23 01:58 FiO2 Intake & Output 08/05/23 08/06/23 08/06/23 18:59 06:59 18:59 Intake Total 840 120 240 Output Total 625 200 Balance 215 -80 240 Intake: Oral 840 120 240 Output: Urine 625 200 Other: Voiding Method Indwelling Catheter Indwelling Catheter - Exam General appearance: The patient is alert, oriented, appears in no acute distress. Obese. HET: Head is normocephalic and atraumatic.. Neck: Supple. Abdomen: Soft, nontender, nondistended. Extremities: Left lower extremity with knee immobilizer, stump green plumber and rigid dressing in place. Neurological: No focal deficits. - Labs CBC & Chem 7: 08/06/23 07:14 08/06/23 07:14 Labs: Abnormal Lab Results - Last 24 Hours (Table) 08/05/23 08/05/23 08/05/23 Range/Units 11:27 16:29 20:51 WBC (3.8-10.6) k/uL RBC (3.80-5.40) m/uL Hgb (11.4-16.0) gm/dL Hct (34.0-46.0) % Neutrophils # (1.3-7.7) k/uL Chloride (98-107) mmol/L Carbon Dioxide (22-30) mmol/L BUN (7-17) mg/dL Creatinine (0.52-1.04) mg/dL Glucose (74-99) mg/dL POC Glucose (mg/dL) 186 H 145 H 194 H (70-110) mg/dL 08/06/23 08/06/23 08/06/23 Range/Units 02:00 06:29 07:14 WBC 11.4 H (3.8-10.6) k/uL RBC 2.79 L (3.80-5.40) m/uL Hgb 8.7 L (11.4-16.0) gm/dL Hct 26.5 L (34.0-46.0) % Neutrophils # 9.2 H (1.3-7.7) k/uL Chloride (98-107) mmol/L Carbon Dioxide (22-30) mmol/L BUN (7-17) mg/dL Creatinine (0.52-1.04) mg/dL Glucose (74-99) mg/dL POC Glucose (mg/dL) 138 H 124 H (70-110) mg/dL 08/06/23 Range/Units 07:14 WBC (3.8-10.6) k/uL RBC (3.80-5.40) m/uL Hgb (11.4-16.0) gm/dL Hct (34.0-46.0) % Neutrophils # (1.3-7.7) k/uL Chloride 110 H (98-107) mmol/L Carbon Dioxide 19 L (22-30) mmol/L BUN 21 H (7-17) mg/dL Creatinine 1.51 H (0.52-1.04) mg/dL Glucose 114 H (74-99) mg/dL POC Glucose (mg/dL) (70-110) mg/dL Assessment and Plan Assessment: 1. Ischemic changes to left TMA site status post left below the knee amputation 2. 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 Peripheral arterial disease, below-knee 4. Right ankle diabetic ulcer 5. Atrial fibrillation with slow ventricular rate 6. Diabetes mellitus 7. Peripheral neuropathy Plan: 1. Keep stump green plumber rigid dressing in place as well as knee immobilizer 2. Change dressing as needed with Adaptic, 4 x 4, Kerlix 3. Continue with recommendations from infectious disease 4. Patient may resume Xarelto 5. [facility] is following for stump green plumber and rigid dressing 6. Patient is cleared from vascular surgery for discharge. Recommend follow-up with Dr. Don in 2 weeks. Thank you for this consultation, patient is cleared from vascular surgery for discharge. The impression and plan of care has been dictated as directed. Dr. Lopez I performed a history and examination of this patient, discussed the same with the dictator. I agree with the dictator's note ,documented as a scribe. Any additional findings or plans will be noted. A
[2023-08-06 11:32] LABS: Glucose,Whole Blood 249 mg/dL (70-110)
--- NOTE | 2023-08-06 11:41 | CDI ---
Documentation Clarification Form Date: 08/06/2023 10:40:58 AM From: Marlena Morejon RN CCDS Phone: [phone] Admit Date: 07/30/2023 01:07:00 AM Patient Name: Marylu Chavez Visit Number: [id number] Discharge Date: ATTENTION: The Clinical Documentation Specialists (CDI) and [facility] Coding Staff appreciate your assistance in clarifying documentation. Please respond to the clarification below the line at the bottom and electronically sign. The CDI & [facility] Coding staff will review the response and follow-up if needed. Please note: Queries are made part of the Legal Health Record. If you have any questions, please contact the author of this message via ITS. Dr. Jenniffer Austin Urinary retention postoperatively likely side effect from anesthesia is documented 08/04, Medicine note and patient had left BKA, 08/01. Additional clarification is requested regarding the relationship, if any, that exists between the diagnosis and the procedure. Patients Admitting Diagnosis: non healing left lower extremity wound, ischemia. Post-Operative Diagnosis: non healing left lower extremity wound, ischemia. Procedure performed: Left below knee amputation. History/Risk Factors: 84-year-old female presented to the ED with left foot ischemia with soft tissue swelling/cellulitis at the amputation site with open wound on the lateral plantar aspect and minimal discharge. Medical History: Metatarsal amputation, Atrial Fibrillation, CKD stage III, and DM peripheral neuropathy. 07/29, H&P. Clinical Indicators: Medicine note, 08/02: Per nursing staff patient was retaining urine straight catheterization last night. Recommend to continue monitoring intake and output and post void residuals. Patient is continued on Flomax which she takes chronically and has been resumed. 08/02, Straight cath 750ml; Bladder scan 02:00 545 volume, 10:22 151-200ml, 17:00 >300ml 08/03, Straight cath 400ml; Bladder Scan 01:19 Ultrasound estimate 101-150ml; 18:02 Ultrasound estimate 570 Treatment: Straight catheterization on 08/01, 08/02, 08/03; 08/04 Indwelling austin catheter, 07/30 Flomax 0.4mg po Daily. Bladder scan What relationship, if any, exists between the diagnosis of urinary retention postoperatively and the procedure: [ ] Urinary retention is a complication of surgical procedure [ ] Urinary retention is an expected outcome of the surgical procedure [ x ] Urinary retention is related to patients co-morbid condition(s) patient chronically on Flomax & not a complication of the procedure [ ] Urinary retention has been ruled out [ ] Other please specify ____ [ ] Unable to determine (Template Last Revised: July 2020) MTDD
[2023-08-06 12:19] VITALS: BP 177/86; PULSE 86
--- NOTE | 2023-08-06 13:34 | P.DS ---
Providers Date of admission: 07/30/23 01:07 Attending physician: Faviola Robert Consults: 07/30/23 01:04 Consult Physician Routine Consulting Provider: Jenniffer Austin Consult Reason/Comments: Left foot infection Do you want consulting provider notified?: Yes Consult Physician Routine Consulting Provider: Jamila Campos Consult Reason/Comments: Left foot infection Do you want consulting provider notified?: Yes 07/31/23 06:28 Consult Physician Urgent Consulting Provider: James Valdez Consult Reason/Comments: hx of afib - in afib slow ventricular rate Do you want consulting provider notified?: Yes, Notify in am Primary care physician: Megha Oneal Hospital Course: Final Diagnosis Left foot ischemia with soft tissue swelling/cellulitis at the amputation site with open wound on the lateral plantar aspect and minimal discharge. Status post left BKA with vascular surgery postop day 4 Sepsis secondary to above History of nonhealing left foot wound Urinary retention postoperatively likely side effect from anesthesia. IDC placed. Hypovolemic hyponatremia, improving Right ankle wound nonhealing followed by wound care. History of congestive heart failure with preserved EF, not in exacerbation Acute on chronic kidney disease stage III due to diabetic nephrosclerosis History of left TMA Peripheral vascular disease Diabetes type 2 insulin-dependent, uncontrolled with hypoglycemia Severe peripheral neuropathy Paroxysmal atrial fibrillation on anticoagulation with Xarelto Discharge Disposition Activity as tolerated and recommended per physical therapy Change dressing to left amputation site as needed. Adaptic, 4 x 4 and Kerlix Keep knee immobilizer in place for majority of day and night. Keep stump scrum coach and rigid dressing in place may take off rigid dressing as needed. Right lower extremity wound apply santyl saline moist gauze, dry gauze, rolled gauze and secure with paper tape. Keep indwelling austin catheter and can complete voiding trial at rehab today. If unable to void recommend consulting urology. Patient to follow up with primary provider Dr. Oneal, Dr Rodriguez and vascular surgeon. Would also benefit to follow up at [facility] [place] for the right ankle wound. Repeat labs in 2 to 3 days. Hospital Course Patient is a 83-year-old female presents to ER with complaints of left foot discoloration and wound on the plantar aspect at the amputation site with minimal discharge. Worsening symptoms since last Sunday. Patient was also complaining of subjective fevers and chills last night. Patient otherwise denies any pain. Denies any chest pain or shortness of breath. Denies any recent trauma/injury. Patient does have a history of left metatarsal amputation, atrial fibrillation on anticoagulation with Xarelto, hypertension, diabetes type 2 insulin-dependent, diabetic peripheral neuropathy and chronic kidney disease stage III. On admission foot x-ray showed extensive postsurgical changes, soft tissue point vascular calcifications compatible with diabetes and MRI is advised to assess for relief/osteomyelitis. Admission Tmax 99.8 and patient was tachycardic. Laboratory data showed WBC 20.0 hemoglobin 10.6 and platelets 217 Sodium 128 potassium 4.4 chloride 98 bicarb is 20 BUN 14 creatinine 1.82 and blood sugar 104 and lactic acid 1.6 magnesium 1.7. Patient was admitted to the hospital with concern for ischemic left foot and vascular and ID were consulted. Patient was recommended for amputation and underwent left below the knee amputation on 08/02/2023. Was treated empirically with IV unasyn while inpatient with no recommendations for antibiotics on discharge by ID. Patient was having issues with pain control to the left amputation site. Patient was started on cymbalta with improvement in her pain level currently reporting minimal to no pain. Bowels are moving. No chest pain no shortness of breath. She was also having issues of urinary retention which required placement of indwelling austin catheter would recommend to keep this on discharge and complete the voiding trial at [facility]. Please see medication reconciliation for a list of current medications. Thank you for allowing us to participate in the care of this patient. The impression and plan of care has been dictated by Estelita Hurst, Nurse Practitioner as directed. Dr. Denise MD I have performed a history and physical examination and medical decision making of this patient, discussed the same with the dictator, and agree with the dictators assessment and plan as written, documented as a scribe. Based on total visit time, I have performed more than 50% of this visit. Patient Condition at Discharge: Stable Plan - Discharge Summary Discharge Rx Participant: No New Discharge Prescriptions: New HYDROcodone/APAP 7.5-325MG [[place] 7.5-325] 1 each PO Q6HR PRN #4 tab PRN Reason: Pain Collagenase [Santyl Ointment] 1 applic TOPICAL 2100 each hydrALAZINE HCL [Apresoline] 25 mg PO TID tab DULoxetine HCL [Cymbalta] 30 mg PO DAILY cap Rivaroxaban [Xarelto] 15 mg PO W/SUPPER tab Continue Tamsulosin HCl [Flomax] 0.4 mg PO DAILY Folic Acid 1 mg PO DAILY@1200 Furosemide [Lasix] 20 mg PO DAILY Simvastatin [Zocor] 10 mg PO DAILY Insulin Aspart [NovoLOG Flexpen] See Protocol SQ TID-W/MEALS PRN PRN Reason: HIGH BLOOD SUGAR Potassium Chloride ER [K-Dur 10] 10 meq PO DAILY@1200 Empagliflozin [Jardiance] 10 mg PO DAILY Insulin Aspart [NovoLOG Flexpen] 6 units SQ TID-W/MEALS Acetaminophen Tab [Tylenol] 650 mg PO Q6HR PRN tab PRN Reason: Mild Pain Or Fever > 100.5 Sodium Bicarbonate Tab 650 mg PO DAILY@1200 Changed Insulin Glargine,Hum.rec.anlog [Lantus Solostar Pen] 10 units SQ DAILY #0 Discontinued Rivaroxaban [Xarelto] 15 mg PO DAILY amLODIPine [Norvasc] 5 mg PO DAILY 30 Days #30 tab hydrALAZINE HCL [Apresoline] 25 mg PO BID 30 Days #60 tab Discharge Medication List Folic Acid 1 mg PO DAILY@1200 02/20/22 [History] Potassium Chloride ER [K-Dur 10] 10 meq PO DAILY@1200 02/20/22 [History] Tamsulosin HCl [Flomax] 0.4 mg PO DAILY 02/20/22 [History] Empagliflozin [Jardiance] 10 mg PO DAILY 04/26/22 [History] Furosemide [Lasix] 20 mg PO DAILY 04/26/22 [History] Simvastatin [Zocor] 10 mg PO DAILY 04/26/22 [History] Insulin Aspart [NovoLOG Flexpen] 6 units SQ TID-W/MEALS 11/07/22 [History] Insulin Aspart [NovoLOG Flexpen] See Protocol SQ TID-W/MEALS PRN 11/07/22 [History] Acetaminophen Tab [Tylenol] 650 mg PO Q6HR PRN tab 11/09/22 [Rx] Sodium Bicarbonate Tab 650 mg PO DAILY@1200 07/30/23 [History] Collagenase [Santyl Ointment] 1 applic TOPICAL 2100 each 08/06/23 [Rx] DULoxetine HCL [Cymbalta] 30 mg PO DAILY cap 08/06/23 [Rx] HYDROcodone/APAP 7.5-325MG [[place] 7.5-325] 1 each PO Q6HR PRN #4 tab 08/06/23 [Rx] Insulin Glargine,Hum.rec.anlog [Lantus Solostar Pen] 10 units SQ DAILY #0 08/06/23 [Rx] Rivaroxaban [Xarelto] 15 mg PO W/SUPPER tab 08/06/23 [Rx] hydrALAZINE HCL [Apresoline] 25 mg PO TID tab 08/06/23 [Rx] Follow up Appointment(s)/Referral(s): Jenniffer Austin DO [STAFF PHYSICIAN] - 2 Weeks Megha Oneal DO [Primary Care Provider] - 1-2 days Jamila Campos MD [STAFF PHYSICIAN] - 1 Week Praveena Ureña MD [STAFF PHYSICIAN] - 1 Week Ambulatory/Diagnostic Orders: Basic Metabolic Panel [LAB.AMB] Location: None Selected Complete Blood Count w/diff [LAB.AMB] Time Frame: 3 Days, Location: None Selected Activity/Diet/Wound Care/Special Instructions: Activity as tolerated and recommended per physical therapy Change dressing to left amputation site as needed. Adaptic, 4 x 4 and Kerlix Keep knee immobilizer in place for majority of day and night. Keep stump scrum coach and rigid dressing in place may take off rigid dressing as needed. Right lower extremity wound apply santyl saline moist gauze, dry gauze, rolled gauze and secure with paper tape. Keep indwelling austin catheter and can complete voiding trial at rehab today. If unable to void recommend consulting urology. Discharge Disposition: TRANSFER TO SNF/ECF
--- NOTE | 2023-08-06 22:45 | P.PN ---
Subjective Progress Note Date: 08/06/23 Principal diagnosis: Reason for follow-up is left diabetic foot wound and gangrene Patient is a 83-year-old female with a past medical history significant for diabetes mellitus hypertension atrial fibrillation heart failure patient did have history of left diabetic foot infection requiring transmetatarsal amputation and did have a chronic nonhealing wound on the plan tar aspect of the left foot patient now presenting to the hospital with discoloration to the left foot.Patient is status post left below the knee amputation completed on 08/02/2023 On today's evaluation that is 08/06/2023, Patient is afebrile patient is currently on room air and denies having any shortness of breath, the patient denies any chest pain or cough, the patient denies any nausea or abdominal pain she did have an episode of vomiting after lunch but feeling better since then pain to the left BKA stump is controlled. Patient white count is 11.4 creatinine is 1.51 blood culture negative Objective - Vital Signs Vital signs: Vital Signs Temp 98.7 F 08/06/23 08:00 Pulse 86 08/06/23 12:10 Resp 16 08/06/23 12:10 BP 177/86 08/06/23 12:10 Pulse Ox 96 08/06/23 01:58 FiO2 Intake & Output 08/05/23 08/06/23 08/06/23 18:59 06:59 18:59 Intake Total 840 120 240 Output Total 625 200 Balance 215 -80 240 Intake: Oral 840 120 240 Output: Urine 625 200 Other: Voiding Method Indwelling Catheter Indwelling Catheter Indwelling Catheter - Exam GENERAL DESCRIPTION: An elderly female lying in bed in no distress RESPIRATORY SYSTEM: Unlabored breathing , decreased breath sounds at bases HEART: S1 S2 regular rate and rhythm , ABDOMEN: Soft , no tenderness EXTREMITIES: Left BKA stump is covered with stump speech scientist - Labs CBC & Chem 7: 08/06/23 07:14 08/06/23 07:14 Labs: Abnormal Lab Results - Last 24 Hours (Table) 08/05/23 08/05/23 08/06/23 Range/Units 16:29 20:51 02:00 WBC (3.8-10.6) k/uL RBC (3.80-5.40) m/uL Hgb (11.4-16.0) gm/dL Hct (34.0-46.0) % Neutrophils # (1.3-7.7) k/uL Chloride (98-107) mmol/L Carbon Dioxide (22-30) mmol/L BUN (7-17) mg/dL Creatinine (0.52-1.04) mg/dL Glucose (74-99) mg/dL POC Glucose (mg/dL) 145 H 194 H 138 H (70-110) mg/dL 08/06/23 08/06/23 08/06/23 Range/Units 06:29 07:14 07:14 WBC 11.4 H (3.8-10.6) k/uL RBC 2.79 L (3.80-5.40) m/uL Hgb 8.7 L (11.4-16.0) gm/dL Hct 26.5 L (34.0-46.0) % Neutrophils # 9.2 H (1.3-7.7) k/uL Chloride 110 H (98-107) mmol/L Carbon Dioxide 19 L (22-30) mmol/L BUN 21 H (7-17) mg/dL Creatinine 1.51 H (0.52-1.04) mg/dL Glucose 114 H (74-99) mg/dL POC Glucose (mg/dL) 124 H (70-110) mg/dL 08/06/23 Range/Units 11:32 WBC (3.8-10.6) k/uL RBC (3.80-5.40) m/uL Hgb (11.4-16.0) gm/dL Hct (34.0-46.0) % Neutrophils # (1.3-7.7) k/uL Chloride (98-107) mmol/L Carbon Dioxide (22-30) mmol/L BUN (7-17) mg/dL Creatinine (0.52-1.04) mg/dL Glucose (74-99) mg/dL POC Glucose (mg/dL) 249 H (70-110) mg/dL Assessment and Plan (1) Gangrene of left foot Status: Acute Code(s): I96 - GANGRENE, NOT ELSEWHERE CLASSIFIED SNOMED Code(s): 06999923844959590 (2) Diabetic infection of left foot Status: Acute Code(s): E11.628 - TYPE 2 DIABETES MELLITUS WITH OTHER SKIN COMPLICATIONS; L08.9 - LOCAL INFECTION OF THE SKIN AND SUBCUTANEOUS TISSUE, UNSP SNOMED Code(s): 55284490 (3) Diabetic foot ulcer Status: Acute Code(s): E11.621 - TYPE 2 DIABETES MELLITUS WITH FOOT ULCER; L97.509 - NON-PRESSURE CHRONIC ULCER OTH PRT UNSP FOOT W UNSP SEVERITY SNOMED Code(s): 457077571 Plan: 1patient presented to hospital with left diabetic foot infection in this patient who did have a chronic nonhealing wound on the plantar aspect however features are mostly suggestive of ischemia on today's visit last culture positive for Pseudomonas E. coli anaerobes 2-patient is status post left below the knee amputation completed on 08/02/2023 3-patient did have resolution of the fever white count same not significantly elevated within the pocket part removed patient not bacteremic no need for antibiotic therapy on discharge Daughter at the bedside questions answered Dictation was produced using [employer] dictation software. please excuse any grammatical, word or spelling errors. Time with Patient: Less than 30
== END 2023-08-06 14:52 | DRG 475 ==
LOC: EC 22:44 → 3SCARD 07-30 01:07 → 4SSUR 07-30 12:02 → 1SOBS 07-30 17:59 → 3SCARD 07-31 14:51
PROVIDERS: ADMIT Hospitalist; ATTEND Hospitalist
PROC: 0Y6J0Z1 Detachment at Left Lower Leg, High, Open Approach (ICD-10-PCS; principal; 2023-08-02 11:00)
DX: T87.44 Infection of amputation stump, left lower extremity (principal); E87.1 Hypo-osmolality and hyponatremia; I13.0 Hypertensive heart and chronic kidney disease with heart failure and stage 1 through stage 4 chronic kidney disease, or unspecified chronic kidney disease; T81.44XA Sepsis following a procedure, initial encounter; I48.21 Permanent atrial fibrillation; L97.312 Non-pressure chronic ulcer of right ankle with fat layer exposed; I50.32 Chronic diastolic (congestive) heart failure; L03.116 Cellulitis of left lower limb; E86.1 Hypovolemia; E11.22 Type 2 diabetes mellitus with diabetic chronic kidney disease; N18.30 Chronic kidney disease, stage 3 unspecified; Z79.4 Long term (current) use of insulin; E11.42 Type 2 diabetes mellitus with diabetic polyneuropathy; E11.51 Type 2 diabetes mellitus with diabetic peripheral angiopathy without gangrene; E11.621 Type 2 diabetes mellitus with foot ulcer; E11.622 Type 2 diabetes mellitus with other skin ulcer; E11.628 Type 2 diabetes mellitus with other skin complications; R33.8 Other retention of urine; E11.649 Type 2 diabetes mellitus with hypoglycemia without coma; B96.20 Unspecified Escherichia coli [E. coli] as the cause of diseases classified elsewhere; R00.0 Tachycardia, unspecified; I08.1 Rheumatic disorders of both mitral and tricuspid valves; L97.524 Non-pressure chronic ulcer of other part of left foot with necrosis of bone; B96.5 Pseudomonas (aeruginosa) (mallei) (pseudomallei) as the cause of diseases classified elsewhere; Z79.01 Long term (current) use of anticoagulants; E78.5 Hyperlipidemia, unspecified; Y83.5 Amputation of limb(s) as the cause of abnormal reaction of the patient, or of later complication, without mention of misadventure at the time of the procedure; Z88.6 Allergy status to analgesic agent; L98.492 Non-pressure chronic ulcer of skin of other sites with fat layer exposed; Z79.84 Long term (current) use of oral hypoglycemic drugs; Z79.899 Other long term (current) drug therapy; Z87.891 Personal history of nicotine dependence; Z98.42 Cataract extraction status, left eye; Z98.41 Cataract extraction status, right eye; Z90.49 Acquired absence of other specified parts of digestive tract
CPT/HCPCS: 36415; 80048; 80053; 83605; 83735; 85025; 85027; 85610; 85730; 86850; 86900; 86901; 87040; 93922; 96365; 96366; 96367; 99285

== ENCOUNTER → 2023-09-06 | Outpatient (CLI) | payer MEDICARE ==
--- NOTE | 2023-09-06 11:41 | XR ---
EXAMINATION TYPE: XR ankle complete RT DATE OF EXAM: 09/06/2023 COMPARISON: None HISTORY: History of diabetes TECHNIQUE: Three-view right ankle FINDINGS: Achilles tendon calcaneal heel spur is present. Small plantar calcaneal heel spur may be pr esent. Structures are osteopenic. Vascular calcification is noted. There appears to be flattening of the plantar arch. Ankle mortise is intact. No acute fractures or dislocations are evident. No soft ti ssue swelling evident. No suspicious cortical erosions are evident. Follow up exams can be performed 7-10 days from acute trauma for continued pain. IMPRESSION: 1. Osteopenia 2. There may be flattening of the plantar arch. 3. No acute osseous abnormality.
== END | disposition home or self-care (01) ==
LOC: RADXRMAIN 11:11
PROVIDERS: ATTEND Family Medicine
DX: M85.871 Other specified disorders of bone density and structure, right ankle and foot (principal); E11.622 Type 2 diabetes mellitus with other skin ulcer

== ENCOUNTER 2023-09-15 17:16 | Emergency (ER) | payer MEDICARE ==
--- NOTE | 2023-09-15 18:35 | ED ---
Recheck HPI - General Chief Complaint: Skin/Abscess/Foreign Body Stated Complaint: L Leg Infection Time Seen by Provider: 09/15/23 17:43 Source: family, RN notes reviewed, old records reviewed, Caregiver Mode of arrival: wheelchair Limitations: no limitations - History of Present Illness Initial Comments: This is a 3-year-old female to the ER for recheck of postoperative infection postoperative wound. Complaint: wound re-check -: hour(s) Returns Today for: wound recheck, cellulitis follow-up Symptoms Since Prior Visit: no new symptoms Context: planned re-check Associated Symptoms: none - Related Data Home Medications Medication Instructions Recorded Confirmed Folic Acid 1 mg PO DAILY 02/20/22 09/15/23 Potassium Chloride ER [K-Dur 10] 10 meq PO DAILY 02/20/22 09/15/23 Tamsulosin HCl [Flomax] 0.4 mg PO DAILY 02/20/22 09/15/23 Empagliflozin [Jardiance] 10 mg PO DAILY 04/26/22 09/15/23 Furosemide [Lasix] 20 mg PO DAILY 04/26/22 09/15/23 Insulin Aspart [NovoLOG Flexpen] 6 units SQ AC-TID 11/07/22 09/15/23 Insulin Aspart [NovoLOG Flexpen] See Protocol SQ AC-TID 11/07/22 09/15/23 Sodium Bicarbonate Tab 650 mg PO DAILY 07/30/23 09/15/23 Atorvastatin [Lipitor] 20 mg PO DAILY 09/15/23 09/15/23 Dulaglutide [Trulicity] 0.75 mg SQ Q7D 09/15/23 09/15/23 Glycerin Adult Suppository 1 supp RECTAL DAILY PRN 09/15/23 09/15/23 HYDROcodone/APAP 7.5-325MG [[place] 1 tab PO Q6HR PRN 09/15/23 09/15/23 7.5-325] Magnesium Hydroxide [Milk of 2,400 mg PO DAILY PRN 09/15/23 09/15/23 Magnesia] Ondansetron [Zofran] 4 mg PO Q6H PRN 09/15/23 09/15/23 bisacodyL [Dulcolax] 5 mg PO DAILY PRN 09/15/23 09/15/23 Previous Rx's Medication Instructions Recorded Acetaminophen Tab [Tylenol] 650 mg PO Q6HR PRN tab 11/09/22 DULoxetine HCL [Cymbalta] 30 mg PO DAILY cap 08/06/23 Insulin Glargine,Hum.rec.anlog 10 units SQ DAILY #0 08/06/23 [Lantus Solostar Pen] Rivaroxaban [Xarelto] 15 mg PO W/SUPPER tab 08/06/23 hydrALAZINE HCL [Apresoline] 25 mg PO TID tab 08/06/23 Allergies Allergy/AdvReac Type Severity Reaction Status Date / Time aspirin Allergy Anaphylaxis Verified 09/15/23 19:22 Review of Systems ROS Statement: Those systems with pertinent positive or pertinent negative responses have been documented in the HPI. ROS Other: All systems not noted in ROS Statement are negative. Past Medical History Past Medical History: Atrial Fibrillation, Heart Failure, Diabetes Mellitus, Hypertension, Renal Disease Additional Past Medical History / Comment(s): wound rt foot and rt chin, wound to left pinkey, bilateral toes amputation, kidney failure, CHF, "slight stroke" 10years ago, History of Any Multi-Drug Resistant Organisms: None Reported Past Surgical History: Cholecystectomy Additional Past Surgical History / Comment(s): left foot all toes amputated 2021; hematoma removal abdomen Past Anesthesia/Blood Transfusion Reactions: No Reported Reaction Past Psychological History: No Psychological Hx Reported Smoking Status: Never smoker Past Alcohol Use History: None Reported Past Drug Use History: None Reported - Past Family History Sister(s) Family Medical History: Cancer Brother(s) Family Medical History: Cancer General Exam - General Exam Comments Initial Comments: Wound is clean dry and intact Does have significant eschar and evidence of poor blood flow General appearance: alert, in no apparent distress Head exam: Present: atraumatic, normocephalic, normal inspection Eye exam: Present: normal appearance, PERRL, EOMI. Absent: scleral icterus, conjunctival injection, periorbital swelling ENT exam: Present: normal exam, mucous membranes moist Neck exam: Present: normal inspection. Absent: tenderness, meningismus, lymphad enopathy Respiratory exam: Present: normal lung sounds bilaterally. Absent: respiratory distress, wheezes, rales, rhonchi, stridor Cardiovascular Exam: Present: regular rate, normal rhythm, normal heart sounds. Absent: systolic murmur, diastolic murmur, rubs, gallop, clicks GI/Abdominal exam: Present: soft, normal bowel sounds. Absent: distended, tenderness, guarding, rebound, rigid Extremities exam: Present: normal inspection, full ROM, normal capillary refill. Absent: tenderness, pedal edema, joint swelling, calf tenderness Back exam: Present: normal inspection Neurological exam: Present: alert, oriented X3, CN II-XII intact Psychiatric exam: Present: normal affect, normal mood Skin exam: Present: warm, dry, intact, normal color. Absent: rash Course Vital Signs 09/15/23 09/15/23 09/15/23 17:29 18:50 20:36 Temperature 97.8 F 98.1 F Pulse Rate 75 82 86 Respiratory 18 17 18 Rate Blood Pressure 131/73 135/58 135/67 O2 Sat by Pulse 100 99 99 Oximetry - Reevaluation(s) Reevaluation #1: 09/15/23 18:35 Medical records reviewed Reevaluation #2: 09/15/23 18:35 Patient symptoms unchanged Reevaluation #3: 09/15/23 18:35 Patient informed of results and questions answered Reevaluation #4: Was pt. sent in by a medical professional or institution (, PA, NETWORK OPERATIONS MANAGER, urgent care, hospital, or [facility]...) When possible be specific @ -no Did you speak to anyone other than the patient for history (EMS, parent, family, police, friend...)? What history was obtained from this source @ -no Did you review nursing and triage notes (agree or disagree)? Why? @ -agree Are old charts reviewed (outside hosp., previous admission, EMS record, old EKG, old radiological studies, urgent care reports/EKG's, [facility] records)? Report findings @ -yes Differential Diagnosis (chest pain, altered mental status, abdominal pain women, abdominal pain men, vaginal bleeding, weakness, fever, dyspnea, syncope, headache, dizziness, GI bleed, back pain, seizure, CVA, palpatations, mental health, musculoskeletal)? @ -prior EKG interpreted by me (3pts min.). @ -no X-rays interpreted by me (1pt min.). @ -no CT interpreted by me (1pt min.). @ -no U/S interpreted by me (1pt. min.). @ -no What testing was considered but not performed or refused? (CT, X-rays, U/S, labs)? Why? @ -none What meds were considered but not given or refused? Why? @ -none Did you discuss the management of the patient with other professionals (professionals i.e. , PA, NETWORK OPERATIONS MANAGER, lab, RT, psych nurse, social studies department chair, chief power dispatcher, teacher, correction officer, case fitter)? Give summary @ -no Was smoking cessation discussed for >3mins.? @ -no Was critical care preformed (if so, how long)? @ -no Were there social determinants of health that impacted care today? How? (Homelessness, low income, unemployed, alcoholism, drug addiction, transportation, low edu. Level, literacy, decrease access to med. care, halfway, rehab)? @ -none Was there de-escalation of care discussed even if they declined (Discuss DNR or withdrawal of care, Hospice)? DNR status @ -no What co-morbidities impacted this encounter? (DM, HTN, Smoking, COPD, CAD, Cancer, CVA, ARF, Chemo, Hep., AIDS, mental health diagnosis, sleep apnea, morbid obesity)? @ -none Was patient admitted / discharged? Hospital course, mention meds given and route, prescriptions, significant lab abnormalities, going to OR and other pertinent info. @ - 83 female to ER for postoperative wound check. Patient has wound redressed here in the ER without significant findings of infection. Family is reassured and patient can be discharged home Undiagnosed new probDischargelem with uncertain prognosis? @ -no Drug Therapy requiring intensive monitoring for toxicity (Heparin, Nitro, Insulin, Cardizem)? @ -no Were any procedures done? @ -no Diagnosis/symptom? @ -Postoperative wound check Acute, or Chronic, or Acute on Chronic? @ -Acute Uncomplicated (without systemic symptoms) or Complicated (systemic symptoms)? @ -Complicated Side effects of treatment? @ -no Exacerbation, Progression, or Severe Exacerbation? @ -exacerbation Poses a threat to life or bodily function? How? (Chest pain, USA, SC, pneumonia, PE, COPD, DKA, ARF, appy, cholecystitis, CVA, Diverticulitis, Homicidal, Suicidal, threat to staff... and all critical care pts) @ -yes with extremes of age - Consultations Consultation #1: Vascular surgery, Dr. Don who is aware of patient and will see the patient in the office Medical Decision Making - Medical Decision Making 83 female to ER for postoperative wound check. Patient has wound redressed here in the ER without significant findings of infection. Family is reassured and patient can be discharged home - Lab Data Result diagrams: 09/15/23 18:25 09/15/23 18:25 Lab Results 09/15/23 09/15/23 Range/Units 18:25 18:25 WBC 10.8 H (3.8-10.6) k/uL RBC 3.94 (3.80-5.40) m/uL Hgb 11.2 L (11.4-16.0) gm/dL Hct 34.9 (34.0-46.0) % MCV 88.5 D (80.0-100.0) fL MCH 28.4 (25.0-35.0) pg MCHC 32.1 (31.0-37.0) g/dL RDW 14.0 (11.5-15.5) % Plt Count 403 (150-450) k/uL MPV 8.0 Neutrophils % 75 % Lymphocytes % 16 % Monocytes % 5 % Eosinophils % 1 % Basophils % 0 % Neutrophils # 8.1 H (1.3-7.7) k/uL Lymphocytes # 1.8 (1.0-4.8) k/uL Monocytes # 0.6 (0-1.0) k/uL Eosinophils # 0.1 (0-0.7) k/uL Basophils # 0.0 (0-0.2) k/uL Sodium 131 L (137-145) mmol/L Potassium 5.9 H (3.5-5.1) mmol/L Chloride 94 L (98-107) mmol/L Carbon Dioxide 26 (22-30) mmol/L Anion Gap 11 mmol/L BUN 73 H (7-17) mg/dL Creatinine 2.80 H (0.52-1.04) mg/dL Est GFR (CKD-EPI)AfAm 17 (>60 ml/min/1.73 sqM) Est GFR (CKD-EPI)NonAf 15 (>60 ml/min/1.73 sqM) Glucose 144 H (74-99) mg/dL Calcium 8.4 (8.4-10.2) mg/dL Phosphorus 4.8 H (2.5-4.5) mg/dL Magnesium 2.3 (1.6-2.3) mg/dL Total Bilirubin 1.0 (0.2-1.3) mg/dL AST 34 (14-36) U/L ALT 22 (4-34) U/L Alkaline Phosphatase 201 H (38-126) U/L Total Protein 8.6 H (6.3-8.2) g/dL Albumin 3.5 (3.5-5.0) g/dL Disposition Clinical Impression: Encounter for wound re-check Disposition: HOME SELF-CARE Condition: Good Instructions (If sedation given, give patient instructions): Acute Wound Care (ED), Chronic Wound Care (ED) Is patient prescribed a controlled substance at d/c from ED?: No Referrals: Megha Oneal DO [Primary Care Provider] - 1-2 days Jenniffer Don DO [STAFF PHYSICIAN] - 1-2 days
[2023-09-15 18:48] LABS: Basophils % (A) 0 %; Eosinophils # (A) 0.1 k/uL (0-0.7); Eosinophils % (A) 1 %; HCT 34.9 % (34.0-46.0); HGB 11.2 gm/dL (11.4-16.0); Lymphocytes # (A) 1.8 k/uL (1.0-4.8); Lymphocytes % (A) 16 %; MCH 28.4 pg (25.0-35.0); MCHC 32.1 g/dL (31.0-37.0); Monocytes # (A) 0.6 k/uL (0-1.0); Monocytes % (A) 5 %; Neutrophils # (A) 8.1 k/uL (1.3-7.7); Neutrophils % (A) 75 %; Platelet Count 403 k/uL (150-450); RBC 3.94 m/uL (3.80-5.40); WBC 10.8 k/uL (3.8-10.6)
[2023-09-15 18:53] LABS: MCV 88.5 fL (80.0-100.0)
[2023-09-15 18:59] LABS: ALT 22 U/L (4-34); AST 34 U/L (14-36); African American GFR (CKD) 17 (>60 ml/min/1.73 sqM); Albumin 3.5 g/dL (3.5-5.0); Alkaline Phosphatase 201 U/L (38-126); Anion Gap 11 mmol/L; Blood Urea Nitrogen 73 mg/dL (7-17); Calcium 8.4 mg/dL (8.4-10.2); Carbon Dioxide 26 mmol/L (22-30); Chloride 94 mmol/L (98-107); Glucose 144 mg/dL (74-99); Magnesium 2.3 mg/dL (1.6-2.3); Non-African American GFR(CKD) 15 (>60 ml/min/1.73 sqM); Phosphorus 4.8 mg/dL (2.5-4.5); Sodium 131 mmol/L (137-145); Total Protein 8.6 g/dL (6.3-8.2)
[2023-09-15 19:00] LABS: Potassium 5.9 mmol/L (3.5-5.1)
[2023-09-15 19:29] VITALS: TEMP 98.1
[2023-09-15] MEDS: SODIUM CHLORIDE 0.9% 500 ML 500 ML IV STA (19:54)
[2023-09-15 20:46] VITALS: BP 135/67; PULSE 86; RESP 18
== END 2023-09-15 20:37 | disposition home or self-care (01) ==
LOC: EC 17:16
DX: Z48.00 Encounter for change or removal of nonsurgical wound dressing (principal); Z88.6 Allergy status to analgesic agent
CPT/HCPCS: 36415; 80053; 83735; 84100; 85025; 87040; 96360; 99283

== ENCOUNTER 2023-10-04 11:31 | Emergency (ER) | payer MEDICARE ==
[2023-10-04 12:10] VITALS: RESP 20
[2023-10-04 14:32] LABS: Basophils % (A) 0 %; Eosinophils # (A) 0.1 k/uL (0-0.7); Eosinophils % (A) 1 %; HCT 29.2 % (34.0-46.0); Lymphocytes # (A) 2.3 k/uL (1.0-4.8); Lymphocytes % (A) 22 %; MCH 27.6 pg (25.0-35.0); MCHC 31.1 g/dL (31.0-37.0); MCV 88.8 fL (80.0-100.0); Mean Platelet Volume 7.5; Monocytes # (A) 0.7 k/uL (0-1.0); Monocytes % (A) 7 %; Neutrophils # (A) 7.1 k/uL (1.3-7.7); Neutrophils % (A) 68 %; Platelet Count 356 k/uL (150-450); RBC 3.28 m/uL (3.80-5.40); RDW 14.7 % (11.5-15.5); WBC 10.6 k/uL (3.8-10.6)
[2023-10-04 14:36] LABS: HGB 9.1 gm/dL (11.4-16.0)
[2023-10-04 14:43] LABS: ALT 16 U/L (4-34); AST 42 U/L (14-36); African American GFR (CKD) 19 (>60 ml/min/1.73 sqM); Albumin 3.1 g/dL (3.5-5.0); Alkaline Phosphatase 143 U/L (38-126); Anion Gap 7 mmol/L; Blood Urea Nitrogen 60 mg/dL (7-17); Calcium 8.6 mg/dL (8.4-10.2); Carbon Dioxide 24 mmol/L (22-30); Chloride 102 mmol/L (98-107); Glucose 118 mg/dL (74-99); Non-African American GFR(CKD) 16 (>60 ml/min/1.73 sqM); Potassium 4.7 mmol/L (3.5-5.1); Sodium 133 mmol/L (137-145); Total Bilirubin 0.4 mg/dL (0.2-1.3); Total Protein 7.6 g/dL (6.3-8.2)
[2023-10-04 14:54] LABS: INR 1.2 (<1.2); Partial Thromboplastin Time 28.2 sec (22.0-30.0); Prothrombin Time 12.8 sec (10.0-12.5)
--- NOTE | 2023-10-04 15:12 | ED ---
Extremity Problem HPI - General Chief complaint: Extremity Problem,Nontraumatic Stated complaint: L foot issues-sent from wound care Time Seen by Provider: 10/04/23 12:00 Source: patient Mode of arrival: wheelchair Limitations: no limitations - History of Present Illness Initial comments: This is an 83-year-old female with a past medical history of diabetes and atrial fibrillation presents emergency department chief complaint of ongoing wound issues. Patient had a below the knee amputation completed on September 01 due to gangrenous and necrotic tissue from diabetes. Patient has been following with wound care weekly due to this. She had an appointment with wound care this morning where they attempted to debride the tissue stated the area was too n ecrotic additionally patient was experiencing severe pain. Patient is interesting in receiving further amputation. She is following with Dr. Don previously. She denies fevers, abdominal pain, nausea, vomiting, chest pain, palpitations dizziness, lightheadedness or fatigue. - Related Data Home Medications Medication Instructions Recorded Confirmed Folic Acid 1 mg PO DAILY 02/20/22 10/04/23 Potassium Chloride ER [K-Dur 10] 10 meq PO DAILY 02/20/22 10/04/23 Tamsulosin HCl [Flomax] 0.4 mg PO DAILY 02/20/22 10/04/23 Empagliflozin [Jardiance] 10 mg PO DAILY 04/26/22 10/04/23 Furosemide [Lasix] 20 mg PO DAILY 04/26/22 10/04/23 Insulin Aspart [NovoLOG Flexpen] See Protocol SQ ACHS 11/07/22 10/04/23 Sodium Bicarbonate Tab 650 mg PO DAILY 07/30/23 10/04/23 Atorvastatin [Lipitor] 20 mg PO DAILY 09/15/23 10/04/23 Dulaglutide [Trulicity] 0.75 mg SQ THOMSON 09/15/23 10/04/23 Ondansetron [Zofran] 4 mg PO Q6H PRN 09/15/23 10/04/23 Ascorbic Acid [Vitamin C] 250 mg PO BID 10/04/23 10/04/23 Collagenase [Santyl Ointment] 1 applic TOPICAL DAILY 10/04/23 10/04/23 Multivitamins, Thera [Multivitamin 1 tab PO DAILY 10/04/23 10/04/23 (formulary)] Rivaroxaban [Xarelto] 15 mg PO HS 10/04/23 10/04/23 Sodium Hypochlorite (Dankin's 1 applic TOPICAL DAILY 10/04/23 10/04/23 Solution) 0.25% Previous Rx's Medication Instructions Recorded Acetaminophen Tab [Tylenol] 650 mg PO Q6HR PRN tab 11/09/22 DULoxetine HCL [Cymbalta] 30 mg PO DAILY cap 08/06/23 Insulin Glargine,Hum.rec.anlog 10 units SQ DAILY #0 08/06/23 [Lantus Solostar Pen] hydrALAZINE HCL [Apresoline] 25 mg PO TID tab 08/06/23 Allergies Allergy/AdvReac Type Severity Reaction Status Date / Time aspirin Allergy Anaphylaxis Verified 10/04/23 15:27 Review of Systems ROS Statement: Those systems with pertinent positive or pertinent negative responses have been documented in the HPI. ROS Other: All systems not noted in ROS Statement are negative. Past Medical History Past Medical History: Atrial Fibrillation, Heart Failure, Diabetes Mellitus, Hypertension, Renal Disease Additional Past Medical History / Comment(s): wound rt foot and rt chin, wound to left pinkey, bilateral toes amputation, kidney failure, CHF, "slight stroke" 10years ago, History of Any Multi-Drug Resistant Organisms: None Reported Past Surgical History: Cholecystectomy Additional Past Surgical History / Comment(s): left foot all toes amputated 2021; hematoma removal abdomen, amputated left BKA Past Anesthesia/Blood Transfusion Reactions: No Reported Reaction Past Psychological History: No Psychological Hx Reported Smoking Status: Never smoker Past Alcohol Use History: None Reported Past Drug Use History: None Reported - Past Family History Sister(s) Family Medical History: Cancer Brother(s) Family Medical History: Cancer General Exam Limitations: no limitations General appearance: alert, in no apparent distress Head exam: Present: atraumatic, normocephalic, normal inspection Eye exam: Present: normal appearance, PERRL, EOMI. Absent: scleral icterus, conjunctival injection, periorbital swelling ENT exam: Present: normal exam, mucous membranes moist Neck exam: Present: normal inspection. Absent: tenderness, meningismus, lymphadenopathy Respiratory exam: Present: normal lung sounds bilaterally. Absent: respiratory distress, wheezes, rales, rhonchi, stridor Cardiovascular Exam: Present: regular rate, normal rhythm, normal heart sounds. Absent: systolic murmur, diastolic murmur, rubs, gallop, clicks GI/Abdominal exam: Present: soft, normal bowel sounds. Absent: distended, tenderness, guarding, rebound, rigid Left Knee exam: Present: tenderness (Over the point of amputation. Patient has full sensation above the knee.), deformity (Below the knee amputation with amputation area with dark necrotic debris and discharge.) Back exam: Present: normal inspection Neurological exam: Present: alert, oriented X3, CN II-XII intact Psychiatric exam: Present: normal affect, normal mood Skin exam: Present: warm, dry, intact, normal color. Absent: rash Course Vital Signs 10/04/23 10/04/23 11:35 16:48 Temperature 98 F 97.5 F L Pulse Rate 63 55 L Respiratory 20 20 Rate Blood Pressure 100/65 162/80 O2 Sat by Pulse 99 100 Oximetry Medical Decision Making - Medical Decision Making Was pt. sent in by a medical professional or institution (, PA, PUMP REBUILDER, urgent care, hospital, or [facility]...) When possible be specific @ -No Did you speak to anyone other than the patient for history (EMS, parent, family, police, friend...)? What history was obtained from this source @ -No Did you review nursing and triage notes (agree or disagree)? Why? @ -I reviewed and agree with nursing and triage notes Were old charts reviewed (outside hosp., previous admission, EMS record, old EKG, old radiological studies, urgent care reports/EKG's, [facility] records)? Report findings @ -No old charts were reviewed Differential Diagnosis (chest pain, altered mental status, abdominal pain women, abdominal pain men, vaginal bleeding, weakness, fever, dyspnea, syncope, headache, dizziness, GI bleed, back pain, seizure, CVA, palpatations, mental health, musculoskeletal)? @ -Sepsis, cellulitis, soft tissue infection, necrotic tissue, dry gangrene, this list is not all inclusive. EKG interpreted by me (3pts min.). @Completed at 1555 is atrial fibrillation, ventricular rate 61. No acute signs of ischemia. X-rays interpreted by me (1pt min.). @ -None done CT interpreted by me (1pt min.). @ -None done U/S interpreted by me (1pt. min.). @ -None done What testing was considered but not performed or refused? (CT, X-rays, U/S, labs)? Why? @ -None What meds were considered but not given or refused? Why? @ -None Did you discuss the management of the patient with other professionals (professionals i.e. , PA, PUMP REBUILDER, lab, RT, psych nurse, social research assistant, group captain, teacher, motorcycle police officer, casework manager)? Give summary @ -Spoke with vascular specialist Dr. Don, who patient is seen for previous am putations. Dr. Don states that patient's amputation will be completed early next week. Recommends ordering basic labs for presurgical clearance. Discussion with patient and family would like patient to be admitted before procedure or if they request for outpatient scheduling. Was smoking cessation discussed for >3mins.? @ -No Was critical care preformed (if so, how long)? @ -No Were there social determinants of health that impacted care today? How? (Homelessness, low income, unemployed, alcoholism, drug addiction, transportation, low edu. Level, literacy, decrease access to med. care, correction, rehab)? @ -No Was there de-escalation of care discussed even if they declined (Discuss DNR or withdrawal of care, Hospice)? DNR status @ -No What co-morbidities impacted this encounter? (DM, HTN, Smoking, COPD, CAD, Cancer, CVA, ARF, Chemo, Hep., AIDS, mental health diagnosis, sleep apnea, morbid obesity)? @ -Atrial fibrillation, diabetes mellitus, hypertension Was patient admitted / discharged? Hospital course, mention meds given and route, prescriptions, significant lab abnormalities, going to OR and other pertinent info. @ -83-year-old female with dry gangrene and necrotic tissue after amputation. On examination patient's amputation is found to be dark and necrotic. At this time basic labs were ordered. I spoke with vascular specialist Dr. Don was in agreement with surgery with the patient. I discussed with the patient and family requesting that she be discharged and will call outpatient to schedule surgery for early to mid next week. Certain presurgical labs were ordered. Patient is stable for discharge. All questions answered at bedside. Discussed with my attending Dr. Hunt. Luciano, review CBC, CMP and coagulation profile there are signs of chronic kidney disease. There are no signs of infection. Undiagnosed new problem with uncertain prognosis? @ -No Drug Therapy requiring intensive monitoring for toxicity (Heparin, Nitro, Insulin, Cardizem)? @ -No Were any procedures done? @ -No Diagnosis/symptom? @ -Dry gangrene of amputation Acute, or Chronic, or Acute on Chronic? @ -Acute Uncomplicated (without systemic symptoms) or Complicated (systemic symptoms)? @ -complicated Side effects of treatment? @ -No Exacerbation, Progression, or Severe Exacerbation? @ -No Poses a threat to life or bodily function? How? (Chest pain, [place], [place], pneumonia, PE, COPD, DKA, ARF, appy, cholecystitis, CVA, Diverticulitis, Homicidal, Suicidal, threat to staff... and all critical care pts) @ -No - Lab Data Result diagrams: 10/04/23 13:58 10/04/23 13:58 Lab Results 10/04/23 10/04/23 10/04/23 Range/Units 13:58 13:58 13:58 WBC 10.6 (3.8-10.6) k/uL RBC 3.28 L (3.80-5.40) m/uL Hgb 9.1 L D (11.4-16.0) gm/dL Hct 29.2 L (34.0-46.0) % MCV 88.8 (80.0-100.0) fL MCH 27.6 (25.0-35.0) pg MCHC 31.1 (31.0-37.0) g/dL RDW 14.7 (11.5-15.5) % Plt Count 356 (150-450) k/uL MPV 7.5 Neutrophils % 68 % Lymphocytes % 22 % Monocytes % 7 % Eosinophils % 1 % Basophils % 0 % Neutrophils # 7.1 (1.3-7.7) k/uL Lymphocytes # 2.3 (1.0-4.8) k/uL Monocytes # 0.7 (0-1.0) k/uL Eosinophils # 0.1 (0-0.7) k/uL Basophils # 0.0 (0-0.2) k/uL PT 12.8 H (10.0-12.5) sec INR 1.2 H (<1.2) APTT 28.2 (22.0-30.0) sec Sodium 133 L (137-145) mmol/L Potassium 4.7 (3.5-5.1) mmol/L Chloride 102 (98-107) mmol/L Carbon Dioxide 24 (22-30) mmol/L Anion Gap 7 mmol/L BUN 60 H (7-17) mg/dL Creatinine 2.62 H (0.52-1.04) mg/dL Est GFR (CKD-EPI)AfAm 19 (>60 ml/min/1.73 sqM) Est GFR (CKD-EPI)NonAf 16 (>60 ml/min/1.73 sqM) Glucose 118 H (74-99) mg/dL Calcium 8.6 (8.4-10.2) mg/dL Total Bilirubin 0.4 (0.2-1.3) mg/dL AST 42 H (14-36) U/L ALT 16 (4-34) U/L Alkaline Phosphatase 143 H (38-126) U/L Total Protein 7.6 (6.3-8.2) g/dL Albumin 3.1 L (3.5-5.0) g/dL Disposition Clinical Impression: Dry gangrene Narrative: Please return to the Emergency Department if symptoms worsen or any other concerns. Patient will call Dr. Don's office to schedule amputation procedure. Disposition: HOME SELF-CARE Condition: Good Instructions (If sedation given, give patient instructions): Gangrene (DC) Is patient prescribed a controlled substance at d/c from ED?: No Referrals: Megha Oneal DO [Primary Care Provider] - 1-2 days
[2023-10-04] MEDS: SODIUM CHLORIDE 0.9% 500 ML 500 ML IV STA (15:13)
--- NOTE | 2023-10-04 15:49 | XR ---
EXAMINATION TYPE: XR chest 2V DATE OF EXAM: 10/04/2023 COMPARISON: 04/11/2023 HISTORY: Shortness of breath TECHNIQUE: Frontal and lateral views of the chest are obtained. FINDINGS: Scattered senescent parenchymal changes noted. Hyperinflation compatible with COPD. No evidence for infiltrate. No evidence for atelectasis. Heart size is stable. Mediastinal structures are stable and grossly unremarkable. No evidence for hilar prominence. Degenerative changes dorsal spine. IMPRESSION: 1. No evidence for acute pulmonary disease.
[2023-10-04 16:56] VITALS: BP 162/80; PULSE 55; TEMP 97.5
== END 2023-10-04 16:50 | disposition home or self-care (01) ==
LOC: EC 11:31
DX: I96 Gangrene, not elsewhere classified (principal); E11.9 Type 2 diabetes mellitus without complications; I48.91 Unspecified atrial fibrillation; Z79.4 Long term (current) use of insulin; Z79.899 Other long term (current) drug therapy; Z86.73 Personal history of transient ischemic attack (TIA), and cerebral infarction without residual deficits; Z90.49 Acquired absence of other specified parts of digestive tract; Z88.6 Allergy status to analgesic agent
CPT/HCPCS: 36415; 71046; 80053; 85025; 85610; 85730; 93005; 96360; 99284

== ENCOUNTER 2023-11-07 16:58 | Inpatient (IN) | payer MEDICARE ==
--- NOTE | 2023-11-07 18:14 | ED ---
General Adult HPI - General Source: patient, family, RN notes reviewed Mode of arrival: ambulatory Limitations: no limitations <Bonnie Flores - Last Filed: 11/07/23 18:12> - General Source: RN notes reviewed, old records reviewed Mode of arrival: ambulatory Limitations: no limitations - History of Present Illness -: hour(s) Radiation: non-radiation Severity scale (1-10): 6 Quality: sharp Consistency: constant Improves with: none Worsens with: none Associated Symptoms: denies other symptoms Treatments Prior to Arrival: none <Pool Scott - Last Filed: 11/17/23 20:32> - General Chief complaint: Extremity Injury, Lower Stated complaint: R big toe infection Time Seen by Provider: 11/07/23 18:12 - History of Present Illness Initial comments: Quick note: 83-year-old female presented to the ER with a chief complaint of right great toe infection. Patient sent here by Dr. Campos. Patient underwent an [id number] amputation of her left leg on 10/12/23. Patient has been following up with wound care for right great toe from her shoes. For the past 2 to 3 weeks that she has been noticing a wound that has been increasing in size. Denies any fevers or chills. Patient is a known diabetic. (Bonnie Flores) This is a 83-year-old female to ER for evaluation of right great toe infection and recheck (Pool Scott) - Related Data Home Medications Medication Instructions Recorded Confirmed Folic Acid 1 mg PO DAILY 02/20/22 11/07/23 Potassium Chloride ER [K-Dur 10] 10 meq PO DAILY 02/20/22 11/07/23 Tamsulosin HCl [Flomax] 0.4 mg PO DAILY 02/20/22 11/07/23 Empagliflozin [Jardiance] 10 mg PO DAILY 04/26/22 11/07/23 Furosemide [Lasix] 20 mg PO DAILY 04/26/22 11/07/23 Insulin Aspart [NovoLOG Flexpen] See Protocol SQ ACHS 11/07/22 11/07/23 Sodium Bicarbonate Tab 650 mg PO DAILY 07/30/23 11/07/23 Dulaglutide [Trulicity] 0.75 mg SQ THOMSON 09/15/23 11/07/23 Ondansetron [Zofran] 4 mg PO Q6H PRN 09/15/23 11/07/23 Ascorbic Acid [Vitamin C] 250 mg PO BID 10/04/23 11/07/23 Multivitamins, Thera [Multivitamin 1 tab PO DAILY 10/04/23 11/07/23 (formulary)] Rivaroxaban [Xarelto] 15 mg PO HS 10/04/23 11/07/23 Sodium Hypochlorite (Dankin's 1 applic TOPICAL DAILY 10/04/23 11/07/23 Solution) 0.25% DULoxetine HCL [Cymbalta] 30 mg PO DAILY 10/11/23 11/07/23 Insulin Glargine,Hum.rec.anlog 10 units SQ DAILY 10/11/23 11/07/23 [Lantus Solostar Pen] Previous Rx's Medication Instructions Recorded Acetaminophen Tab [Tylenol] 650 mg PO Q6HR PRN tab 11/09/22 hydrALAZINE HCL [Apresoline] 25 mg PO TID tab 08/06/23 DAPTOmycin [Cubicin] 500 mg IV Q48H #21 each 11/14/23 Piperacillin-Tazobactam [Zosyn] 3.375 gm IVPB Q12HR #84 each 11/14/23 Allergies Allergy/AdvReac Type Severity Reaction Status Date / Time aspirin Allergy Severe Anaphylaxis Verified 11/07/23 20:34 Review of Systems ROS Other: All systems not noted in ROS Statement are negative. <Bonnie Flores - Last Filed: 11/07/23 18:12> ROS Other: All systems not noted in ROS Statement are negative. <Pool Scott - Last Filed: 11/17/23 20:32> ROS Statement: Those systems with pertinent positive or pertinent negative responses have been documented in the HPI. Past Medical History Past Medical History: Atrial Fibrillation, Heart Failure, CVA/TIA, Diabetes Mellitus, Hyperlipidemia, Hypertension, Renal Disease Additional Past Medical History / Comment(s): wound rt ankle and R great toe, L BKA, kidney failure, "slight stroke" 10years ago, CVA mild R sided weakness, frequent UTIs. History of Any Multi-Drug Resistant Organisms: None Reported, MRSA Date of last positivie culture/infection: 2018 approx. MDRO Source:: Urine Past Surgical History: Cholecystectomy, Orthopedic Surgery Additional Past Surgical History / Comment(s): left foot all toes amputated 2021; [place], hematoma removal abdomen Past Anesthesia/Blood Transfusion Reactions: No Reported Reaction Past Psychological History: No Psychological Hx Reported Smoking Status: Never smoker Past Alcohol Use History: Unable to Obtain Past Drug Use History: Unable to Obtain - Past Family History Sister(s) Family Medical History: Cancer Additional Family Medical History / Comment(s): Renal cancer. Brother(s) Family Medical History: Cancer Additional Family Medical History / Comment(s): Renal cancer <Bonnie Flores - Last Filed: 11/07/23 18:12> General Exam Limitations: no limitations <DarwinBonnie cates - Last Filed: 11/07/23 18:12> General appearance: alert, in no apparent distress Head exam: Present: atraumatic, normocephalic, normal inspection Eye exam: Present: normal appearance, PERRL, EOMI. Absent: scleral icterus, conjunctival injection, periorbital swelling ENT exam: Present: normal exam, mucous membranes moist Neck exam: Present: normal inspection. Absent: tenderness, meningismus, lymphadenopathy Respiratory exam: Present: normal lung sounds bilaterally. Absent: respiratory distress, wheezes, rales, rhonchi, stridor Cardiovascular Exam: Present: regular rate, normal rhythm, normal heart sounds. Absent: systolic murmur, diastolic murmur, rubs, gallop, clicks GI/Abdominal exam: Present: soft, normal bowel sounds. Absent: distended, tenderness, guarding, rebound, rigid Extremities exam: Present: normal inspection, full ROM, normal capillary refill. Absent: tenderness, pedal edema, joint swelling, calf tenderness Back exam: Present: normal inspection Neurological exam: Present: alert, oriented X3, CN II-XII intact Psychiatric exam: Present: normal affect, normal mood Skin exam: Present: warm, dry, intact, normal color. Absent: rash <Pool Scott - Last Filed: 11/17/23 20:32> - General Exam Comments Initial Comments: Visual Physical Exam Vital signs reviewed General: Well-appearing, nontoxic, no acute distress. Head: Normocephalic, atraumatic Eyes: PERRLA, EOMI ENT: Airway patent Chest: Nonlabored breathing Skin: No visual rash, normal skin tone Neuro: Alert and oriented 3 Musculoskeletal: No gross abnormalities, [id number] amputation of left leg (Bonnie Flores) Course <Pool Scott - Last Filed: 11/17/23 20:32> Vital Signs 11/07/23 11/07/23 11/08/23 17:22 21:33 00:50 Temperature 97.9 F Pulse Rate 69 66 62 Respiratory 18 16 16 Rate Blood Pressure 116/58 153/70 152/67 O2 Sat by Pulse 100 100 99 Oximetry 11/08/23 11/08/23 04:00 06:09 Temperature Pulse Rate 64 76 Respiratory 16 16 Rate Blood Pressure 140/82 129/56 O2 Sat by Pulse 99 99 Oximetry - Reevaluation(s) Reevaluation #1: 11/07/23 19:38 Medical records reviewed (Pool Scott) Reevaluation #2: 11/07/23 19:39 Patient symptoms unchanged (Pool Scott) Reevaluation #3: 11/07/23 19:39 Patient informed of results questions answered (Pool Scott) Reevaluation #4: Was pt. sent in by a medical professional or institution (, PA, VENEER SHEET REPAIRER, urgent care, hospital, or residential...) When possible be specific @ -no Did you speak to anyone other than the patient for history (EMS, parent, family, police, friend...)? What history was obtained from this source @ -no Did you review nursing and triage notes (agree or disagree)? Why? @ -agree Are old charts reviewed (outside hosp., previous admission, EMS record, old EKG, old radiological studies, urgent care reports/EKG's, residential records)? Report findings @ -yes Differential Diagnosis (chest pain, altered mental status, abdominal pain women, abdominal pain men, vaginal bleeding, weakness, fever, dyspnea, syncope, headache, dizziness, GI bleed, back pain, seizure, CVA, palpatations, mental health, musculoskeletal)? @ -prior EKG interpreted by me (3pts min.). @ -yes X-rays interpreted by me (1pt min.). @ -yes significant for possible osteomyelitis or gangrenous changes CT interpreted by me (1pt min.). @ -no U/S interpreted by me (1pt. min.). @ -no What testing was considered but not performed or refused? (CT, X-rays, U/S, labs)? Why? @ -none What meds were considered but not given or refused? Why? @ -none Did you discuss the management of the patient with other professionals (professionals i.e. Dr., PA, VENEER SHEET REPAIRER, lab, RT, psych nurse, social services coordinator, contact center professional, teacher, chief compliance officer, mattress spring encaser)? Give summary @ -no Was smoking cessation discussed for >3mins.? @ -no Was critical care preformed (if so, how long)? @ -no Were there social determinants of health that impacted care today? How? (Homelessness, low income, unemployed, alcoholism, drug addiction, transportation, low edu. Level, literacy, decrease access to med. care, detention, rehab)? @ -none Was there de-escalation of care discussed even if they declined (Discuss DNR or withdrawal of care, Hospice)? DNR status @ -no What co-morbidities impacted this encounter? (DM, HTN, Smoking, COPD, CAD, C ancer, CVA, ARF, Chemo, Hep., AIDS, mental health diagnosis, sleep apnea, morbid obesity)? @ -none Was patient admitted / discharged? Hospital course, mention meds given and route, prescriptions, significant lab abnormalities, going to OR and other pertinent info. @ - 83 female will be admitted for right toe infection. Right great toe gangrene with history of left BKA which converted to left AKA. Patient will be admitted for IV antibiotics and vascular surgery Admit Undiagnosed new problem with uncertain prognosis? @ -no Drug Therapy requiring intensive monitoring for toxicity (Heparin, Nitro, Insulin, Cardizem)? @ -no Were any procedures done? @ -no Diagnosis/symptom? @ -Gangrene right great toe Acute, or Chronic, or Acute on Chronic? @ -Acute Uncomplicated (without systemic symptoms) or Complicated (systemic symptoms)? @ -Complicated Side effects of treatment? @ -no Exacerbation, Progression, or Severe Exacerbation? @ -exacerbation Poses a threat to patient's life yes with gangrene (Pool Scott) - Consultations Consultation #1: Spoke with Dr. Mchugh who recommends antibiotic choices and admission for vascular surgery (Pool Scott) Consultation #2: Spoke with [facility] who agrees to admit this patient (Pool Scott) Medical Decision Making <Bonnie Flores - Last Filed: 11/07/23 18:12> - Lab Data Result diagrams: 11/13/23 10:27 11/13/23 10:27 - Radiology Data Radiology results: report reviewed (X-ray foot is negative for acute disease), image reviewed <Pool Scott - Last Filed: 11/17/23 20:32> - Medical Decision Making I performed the quick note portion of this chart. Electronically signed by Bonnie Flores PA-C (Bonnie Flores) 83 female will be admitted for right toe infection. Right great toe gangrene with history of left BKA which converted to left AKA. Patient will be admitted for IV antibiotics and vascular surgery (Pool Scott) - Lab Data Lab Results 11/07/23 11/07/23 11/07/23 Range/Units 18:54 18:54 18:54 WBC 11.4 H (3.8-10.6) k/uL RBC 3.01 L (3.80-5.40) m/uL Hgb 8.7 L (11.4-16.0) gm/dL Hct 27.1 L (34.0-46.0) % MCV 90.3 (80.0-100.0) fL MCH 28.8 (25.0-35.0) pg MCHC 32.0 (31.0-37.0) g/dL RDW 15.8 H (11.5-15.5) % Plt Count 347 (150-450) k/uL MPV 7.4 Neutrophils % 70 % Lymphocytes % 17 % Monocytes % 6 % Eosinophils % 6 % Basophils % 0 % Neutrophils # 7.9 H (1.3-7.7) k/uL Lymphocytes # 1.9 (1.0-4.8) k/uL Monocytes # 0.7 (0-1.0) k/uL Eosinophils # 0.6 (0-0.7) k/uL Basophils # 0.0 (0-0.2) k/uL Sodium 128 L (137-145) mmol/L Potassium 4.1 (3.5-5.1) mmol/L Chloride 96 L (98-107) mmol/L Carbon Dioxide 22 (22-30) mmol/L Anion Gap 10 mmol/L BUN 51 H (7-17) mg/dL Creatinine 2.33 H (0.52-1.04) mg/dL Est GFR (CKD-EPI)AfAm 22 (>60 ml/min/1.73 sqM) Est GFR (CKD-EPI)NonAf 19 (>60 ml/min/1.73 sqM) Glucose 174 H (74-99) mg/dL Plasma Lactic Acid Nolan 1.8 (0.7-2.0) mmol/L Calcium 8.0 L (8.4-10.2) mg/dL Total Bilirubin 0.8 (0.2-1.3) mg/dL AST 27 (14-36) U/L ALT 14 (4-34) U/L Alkaline Phosphatase 150 H (38-126) U/L Total Protein 7.5 (6.3-8.2) g/dL Albumin 3.2 L (3.5-5.0) g/dL Disposition <Bonnie Flores - Last Filed: 11/07/23 18:12> Is patient prescribed a controlled substance at d/c from ED?: No Time of Disposition: 19:30 <Pool Scott - Last Filed: 11/17/23 20:32> Clinical Impression: Diabetic foot ulcer, Gangrene, Gangrene of toe of right foot Disposition: ADMITTED IP TO THIS HOSP Condition: Fair
[2023-11-07 19:05] LABS: Basophils % (A) 0 %; Eosinophils # (A) 0.6 k/uL (0-0.7); Eosinophils % (A) 6 %; HCT 27.1 % (34.0-46.0); HGB 8.7 gm/dL (11.4-16.0); Lymphocytes # (A) 1.9 k/uL (1.0-4.8); Lymphocytes % (A) 17 %; MCH 28.8 pg (25.0-35.0); MCV 90.3 fL (80.0-100.0); Mean Platelet Volume 7.4; Monocytes # (A) 0.7 k/uL (0-1.0); Monocytes % (A) 6 %; Neutrophils # (A) 7.9 k/uL (1.3-7.7); Neutrophils % (A) 70 %; Platelet Count 347 k/uL (150-450); RBC 3.01 m/uL (3.80-5.40); RDW 15.8 % (11.5-15.5); WBC 11.4 k/uL (3.8-10.6)
--- NOTE | 2023-11-07 19:13 | XR ---
EXAMINATION TYPE: XR foot complete RT DATE OF EXAM: 11/07/2023 6:39 PM CLINICAL INDICATION:Female, 83 years old with history of wound great toe; [facility] COMPARISON: None TECHNIQUE: XR foot complete RT examined in the AP, oblique, and lateral projections. FINDINGS: Abnormal soft tissue involving the lateral aspect of the first digit. No osseous erosion de finitively visualized. Overlapping structures limits evaluation slightly. Suspected remote injury jesus kane chronic change of the first digit distal phalanges. First digit interphalangeal joint may be subl uxed. Diffuse osseous demineralization. No evidence of fracture. No evidence of soft tissue swelling. Calcaneal plantar spurring is present. Multifocal degeneration changes throughout the joints of the foot with osteophyte formation and joint space narrowing. Calcaneal Achilles enthesophyte. Severe ath erosclerosis of the arterial vasculature. IMPRESSION: 1. No evidence of acute fracture. 2. Severe degeneration changes throughout the joints of the foot. 3. Soft tissue abnormality compatible with wound involving the first digit no obvious osseous erosio n are visualization is limited on some views. 4. Possible subluxation of the first digit interphalangeal joint suggested on single view. Correlate clinically.
[2023-11-07 19:18] LABS: ALT 14 U/L (4-34); African American GFR (CKD) 22 (>60 ml/min/1.73 sqM); Anion Gap 10 mmol/L; Blood Urea Nitrogen 51 mg/dL (7-17); Carbon Dioxide 22 mmol/L (22-30); Chloride 96 mmol/L (98-107); Glucose 174 mg/dL (74-99); Non-African American GFR(CKD) 19 (>60 ml/min/1.73 sqM); Sodium 128 mmol/L (137-145); Total Bilirubin 0.8 mg/dL (0.2-1.3)
[2023-11-07 19:26] LABS: AST 27 U/L (14-36); Albumin 3.2 g/dL (3.5-5.0); Alkaline Phosphatase 150 U/L (38-126); Potassium 4.1 mmol/L (3.5-5.1); Total Protein 7.5 g/dL (6.3-8.2)
[2023-11-07] MEDS ORDERED: NALOXONE 0.4 MG/ML 1 ML VIAL IV PRN (19:33)
[2023-11-07] MEDS ORDERED: MORPHINE SULFATE 4 MG/ML SYRINGE IV PRN (19:33)
[2023-11-07 20:03] LABS: Glucose,Whole Blood 240 mg/dL (70-110)
[2023-11-07] MEDS: PIPERACILLIN-TAZOBACTAM 3.375 GM in SODIUM CHLORIDE 0.9% 100 ML IVPB STA (20:14)
[2023-11-07] MEDS: DAPTOmycin 500 MG in SODIUM CHLORIDE 0.9% 50 ML IVPB SCH (21:00)
[2023-11-08] MEDS: PIPERACILLIN-TAZOBACTAM 3.375 GM in SODIUM CHLORIDE 0.9% 100 ML IVPB SCH (03:55)
[2023-11-08 10:49] LABS: Basophils # (A) 0.02 X 10*3/uL (0.00-0.10); Basophils % (A) 0.2 %; Eosinophils # (A) 0.61 X 10*3/uL (0.04-0.35); Eosinophils % (A) 6.2 %; HCT 23.4 % (37.2-46.3); HGB 7.3 g/dL (12.0-15.0); Lymphocytes # (A) 1.61 X 10*3/uL (0.90-5.00); Lymphocytes % (A) 16.3 %; MCH 28.2 pg (27.0-32.0); MCHC 31.2 g/dL (32.0-37.0); MCV 90.3 FL (80.0-97.0); Mean Platelet Volume 9.9 FL (9.5-12.2); Monocytes # (A) 0.89 X 10*3/uL (0.20-1.00); NRBC Per 100 WBC 0 X 10*3/uL (0.00-0.01); Neutrophils # (A) 6.67 X 10*3/uL (1.80-7.70); Neutrophils % (A) 67.5 %; Platelet Count 292 X 10*3/uL (140-440); RBC 2.59 X 10*6/uL (4.10-5.20); RDW 15.9 % (11.5-14.5); WBC 9.88 X 10*3/uL (4.50-10.00)
[2023-11-08 10:52] LABS: ALT 13 U/L (8-44); AST 14 U/L (13-35); Albumin 2.7 g/dL (3.8-4.9); Albumin/Globulin Ratio 0.73 Ratio (1.60-3.17); Alkaline Phosphatase 116 U/L (41-126); BUN/Creat Ratio 18.79 Ratio (12.00-20.00); Blood Urea Nitrogen 45.1 mg/dL (9.0-27.0); Calcium 8.1 mg/dL (8.7-10.3); Carbon Dioxide 21.8 mmol/L (21.6-31.8); Chloride 94 mmol/L (96-109); Globulin 3.7 g/dL (1.6-3.3); Glucose 172 mg/dL (70-110); Phosphorus 4.4 mg/dL (2.4-5.1); Potassium 3.8 mmol/L (3.5-5.5); Sodium 132 mmol/L (135-145); Total Bilirubin 0.3 mg/dL (0.3-1.2); Total Protein 6.4 g/dL (6.2-8.2)
[2023-11-08 11:17] LABS: Magnesium 1.7 mg/dL (1.5-2.4)
[2023-11-08] MEDS ORDERED: ACETAMINOPHEN TAB 325 MG TAB PO PRN (14:36)
[2023-11-08] MEDS ORDERED: ONDANSETRON 4 MG TAB PO PRN (14:36)
[2023-11-08] MEDS ORDERED: DEXTROSE 50% SYRINGE 50 ML IVP PRN ×2 (14:41)
--- NOTE | 2023-11-08 15:42 | P.GSCN ---
History of Present Illness Consult date: 11/08/23 Reason for Consult: Right 1-3 for toe and ankle wounds Requesting physician: Jamila Campos History of present illness: Is a pleasant 83-year-old female well-known to our service who was sent in by Dr. Campos who she had been following for wounds to the right foot. 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 As previously mentioned patient has been following with infectious disease for wound care for wounds to the right toes and ankle which apparently has been getting larger in size and patient was sent here for further evaluation. She denies any fevers, chills, abdominal pain, nausea or vomiting. No shortness of breath or chest pain. She has been afebrile. Mild leukocytosis on admission which has improved. Right foot x-ray reports no evidence of acute fracture. Severe degenerative changes throughout the joints of the foot. Soft tissue abnormality compatible with wound involving the first digit no obvious osseous erosion and visualization is limited on some views. Possible subluxation of the first digit interphalangeal joint suggested on single view correlate clinically. Review of Systems A 14 point review systems was completed all pertinent positives and negatives as stated in the HPI. Past Medical History Past Medical History: Atrial Fibrillation, Heart Failure, CVA/TIA, Diabetes Mellitus, Hyperlipidemia, Hypertension, Osteoarthritis (OA), Renal Disease Additional Past Medical History / Comment(s): wound rt ankle and Right first, second, third and fourth toes, L BKA July 2023, L AKA Ma2023, frequent UTIs, shingles 2022 History of Any Multi-Drug Resistant Organisms: MRSA Year Discovered:: 2018 approx. MDRO Source:: Urine Past Surgical History: Cholecystectomy, Orthopedic Surgery Additional Past Surgical History / Comment(s): left foot all toes amputated 2021; Left BKA July 2023, Left AKA September 2023, right abdominal hematoma surgically removed. Past Anesthesia/Blood Transfusion Reactions: No Reported Reaction Past Psychological History: No Psychological Hx Reported Additional Psychological History / Comment(s): Pt resides with daughter W/C bound. One person transfer. Smoking Status: Never smoker Past Alcohol Use History: Unable to Obtain Past Drug Use History: Unable to Obtain - Past Family History Sister(s) Family Medical History: Cancer Additional Family Medical History / Comment(s): Renal cancer. Brother(s) Family Medical History: Cancer Additional Family Medical History / Comment(s): Renal cancer Medications and Allergies Home Medications Medication Instructions Recorded Confirmed Type Folic Acid 1 mg PO DAILY 02/20/22 11/07/23 History Potassium Chloride ER [K-Dur 10] 10 meq PO DAILY 02/20/22 11/07/23 History Tamsulosin HCl [Flomax] 0.4 mg PO DAILY 02/20/22 11/07/23 History Empagliflozin [Jardiance] 10 mg PO DAILY 04/26/22 11/07/23 History Furosemide [Lasix] 20 mg PO DAILY 04/26/22 11/07/23 History Insulin Aspart [NovoLOG Flexpen] See Protocol SQ ACHS 11/07/22 11/07/23 History Acetaminophen Tab [Tylenol] 650 mg PO Q6HR PRN tab 11/09/22 11/07/23 Rx Sodium Bicarbonate Tab 650 mg PO DAILY 07/30/23 11/07/23 History hydrALAZINE HCL [Apresoline] 25 mg PO TID tab 08/06/23 11/07/23 Rx Atorvastatin [Lipitor] 20 mg PO DAILY 09/15/23 11/07/23 History Dulaglutide [Trulicity] 0.75 mg SQ THOMSON 09/15/23 11/07/23 History Ondansetron [Zofran] 4 mg PO Q6H PRN 09/15/23 11/07/23 History Ascorbic Acid [Vitamin C] 250 mg PO BID 10/04/23 11/07/23 History Collagenase [Santyl Ointment] 1 applic TOPICAL DAILY 10/04/23 11/07/23 History Multivitamins, Thera [Multivitamin 1 tab PO DAILY 10/04/23 11/07/23 History (formulary)] Rivaroxaban [Xarelto] 15 mg PO HS 10/04/23 11/07/23 History Sodium Hypochlorite (Dankin's 1 applic TOPICAL DAILY 10/04/23 11/07/23 History Solution) 0.25% DULoxetine HCL [Cymbalta] 30 mg PO DAILY 10/11/23 11/07/23 History Insulin Glargine,Hum.rec.anlog 10 units SQ DAILY 10/11/23 11/07/23 History [Lantus Solostar Pen] Allergies Allergy/AdvReac Type Severity Reaction Status Date / Time aspirin Allergy Severe Anaphylaxis Verified 11/07/23 20:34 Surgical - Exam Vital Signs Temp Pulse Resp BP Pulse Ox 97.9 F 69 18 116/58 100 11/07/23 17:22 11/07/23 17:22 11/07/23 17:22 11/07/23 17:22 11/07/23 17:22 General appearance: The patient is alert, oriented, appears in no acute distress. HET: Head is normocephalic and atraumatic. Neck: Supple. Heart: Regular. Lungs: Equal expansion, normal respiratory effort. Abdomen: Soft, nontender, nondistended. Extremities: Left yljzv-rjn-[id number] amputation, healing. Right foot great toe with bone exposure at the joint, eschar to second and third toes and lateral ankle ulcer with eschar. Neurological: Alert and oriented. Results - Labs 11/08/23 06:09 11/08/23 06:09 Abnormal Lab Results - Last 24 Hours (Table) 11/07/23 11/07/23 11/07/23 Range/Units 18:54 18:54 19:58 WBC 11.4 H (3.8-10.6) k/uL RBC 3.01 L (3.80-5.40) m/uL Hgb 8.7 L (11.4-16.0) gm/dL Hct 27.1 L (34.0-46.0) % MCHC (32.0-37.0) g/dL RDW 15.8 H (11.5-15.5) % Immature Gran # (0.00-0.04) X 10*3/uL Neutrophils # 7.9 H (1.3-7.7) k/uL Eosinophils # (0.04-0.35) X 10*3/uL Sodium 128 L (137-145) mmol/L Chloride 96 L (98-107) mmol/L Anion Gap (4.00-12.00) mmol/L BUN 51 H (7-17) mg/dL Creatinine 2.33 H (0.52-1.04) mg/dL Est GFR (CKD-EPI) (>=60) Glucose 174 H (74-99) mg/dL POC Glucose (mg/dL) 240 H (70-110) mg/dL Calcium 8.0 L (8.4-10.2) mg/dL Alkaline Phosphatase 150 H (38-126) U/L Albumin 3.2 L (3.5-5.0) g/dL Globulin (1.6-3.3) g/dL Albumin/Globulin Ratio (1.60-3.17) Ratio 11/08/23 11/08/23 Range/Units 06:09 06:09 WBC (3.8-10.6) k/uL RBC 2.59 L (3.80-5.40) m/uL Hgb 7.3 L (11.4-16.0) gm/dL Hct 23.4 L (34.0-46.0) % MCHC 31.2 L (32.0-37.0) g/dL RDW 15.9 H (11.5-15.5) % Immature Gran # 0.08 H (0.00-0.04) X 10*3/uL Neutrophils # (1.3-7.7) k/uL Eosinophils # 0.61 H (0.04-0.35) X 10*3/uL Sodium 132 L (137-145) mmol/L Chloride 94 L (98-107) mmol/L Anion Gap 16.20 H (4.00-12.00) mmol/L BUN 45.1 H (7-17) mg/dL Creatinine 2.4 H (0.52-1.04) mg/dL Est GFR (CKD-EPI) 20 L (>=60) Glucose 172 H (74-99) mg/dL POC Glucose (mg/dL) (70-110) mg/dL Calcium 8.1 L (8.4-10.2) mg/dL Alkaline Phosphatase (38-126) U/L Albumin 2.7 L (3.5-5.0) g/dL Globulin 3.7 H (1.6-3.3) g/dL Albumin/Globulin Ratio 0.73 L (1.60-3.17) Ratio Diabetes panel 11/07/23 11/08/23 Range/Units 18:54 06:09 Sodium 128 L 132 L (137-145) mmol/L Potassium 4.1 3.8 (3.5-5.1) mmol/L Chloride 96 L 94 L (98-107) mmol/L Carbon Dioxide 22 21.8 (22-30) mmol/L BUN 51 H 45.1 H (7-17) mg/dL Creatinine 2.33 H 2.4 H (0.52-1.04) mg/dL Glucose 174 H 172 H (74-99) mg/dL Calcium 8.0 L 8.1 L (8.4-10.2) mg/dL AST 27 14 (14-36) U/L ALT 14 13 (4-34) U/L Alkaline Phosphatase 150 H 116 (38-126) U/L Total Protein 7.5 6.4 (6.3-8.2) g/dL Albumin 3.2 L 2.7 L (3.5-5.0) g/dL Calcium panel 11/07/23 11/08/23 Range/Units 18:54 06:09 Calcium 8.0 L 8.1 L (8.4-10.2) mg/dL Phosphorus 4.4 (2.4-5.1) mg/dL Albumin 3.2 L 2.7 L (3.5-5.0) g/dL Pituitary panel 11/07/23 11/08/23 Range/Units 18:54 06:09 Sodium 128 L 132 L (137-145) mmol/L Potassium 4.1 3.8 (3.5-5.1) mmol/L Chloride 96 L 94 L (98-107) mmol/L Carbon Dioxide 22 21.8 (22-30) mmol/L BUN 51 H 45.1 H (7-17) mg/dL Creatinine 2.33 H 2.4 H (0.52-1.04) mg/dL Glucose 174 H 172 H (74-99) mg/dL Calcium 8.0 L 8.1 L (8.4-10.2) mg/dL Adrenal panel 11/07/23 11/08/23 Range/Units 18:54 06:09 Sodium 128 L 132 L (137-145) mmol/L Potassium 4.1 3.8 (3.5-5.1) mmol/L Chloride 96 L 94 L (98-107) mmol/L Carbon Dioxide 22 21.8 (22-30) mmol/L BUN 51 H 45.1 H (7-17) mg/dL Creatinine 2.33 H 2.4 H (0.52-1.04) mg/dL Glucose 174 H 172 H (74-99) mg/dL Calcium 8.0 L 8.1 L (8.4-10.2) mg/dL Total Bilirubin 0.8 0.3 (0.2-1.3) mg/dL AST 27 14 (14-36) U/L ALT 14 13 (4-34) U/L Alkaline Phosphatase 150 H 116 (38-126) U/L Total Protein 7.5 6.4 (6.3-8.2) g/dL Albumin 3.2 L 2.7 L (3.5-5.0) g/dL - Imaging Comments: Right foot x-ray reports no evidence of acute fracture. Severe degenerative changes throughout the joints of the foot. Soft tissue abnormality compatible with wound involving the first digit no obvious osseous erosion and visualization is limited on some views. Possible subluxation of the first digit interphalangeal joint suggested on single view correlate clinically. Assessment and Plan Assessment: 1. Right toe diabetic ulcer 1 through 3 with eschar 2. Left ankle diabetic ulcer with eschar 3. History of ischemic right lower extremity status post vzzcg-gwv-vjbr amputation 4. Diabetes mellitus 5. Peripheral neuropathy 6. Peripheral arterial disease 7. History of atrial fibrillation 8. Hypertension 9. Chronic renal disease Plan: 1. No plans on any surgical intervention. Continue local wound care as recommended by infectious disease. Patient is not interested in any further surgical intervention or amputations. 2. Rest of medical management per primary medical team Thank you for this consultation, patient is cleared from vascular surgery for discharge. We will sign off at this time. The impression and plan of care has been dictated as directed. I performed a history and examination of this patient, discussed the same with the dictator. I agree with the dictator's note ,documented as a scribe. Any additional findings or plans will be noted.
[2023-11-08] MEDS: hydrALAZINE HCL 25 MG TAB PO SCH (16:31)
[2023-11-08] MEDS: DULoxetine HCL 30 MG CAPSULE.DR PO SCH (16:31)
[2023-11-08] MEDS: DAPAGLIFLOZIN PROPANEDIOL 5 MG TABLET PO SCH (16:31)
[2023-11-08] MEDS: SODIUM BICARBONATE TAB 650 MG TAB PO SCH (16:31)
[2023-11-08] MEDS: TAMSULOSIN 0.4 MG CAP.ER.24H PO SCH (16:31)
[2023-11-08] MEDS: FOLIC ACID 1 MG TAB PO SCH (16:31)
[2023-11-08] MEDS: SODIUM HYPOCHLORITE 0.25% 480 ML BOT MISCELLANE SCH (16:37)
[2023-11-08 17:06] LABS: Glucose,Whole Blood 230 mg/dL (70-110)
[2023-11-08] MEDS: INSULIN ASPART (NovoLOG) 100 UNIT/ML VIAL SQ SCH (18:09)
[2023-11-08 21:40] LABS: Glucose,Whole Blood 204 mg/dL (70-110)
[2023-11-08] MEDS: RIVAROXABAN 15 MG TAB PO SCH (21:44)
[2023-11-08] MEDS: ASCORBIC ACID 500 MG TAB PO SCH (21:44)
[2023-11-08] MEDS: INSULIN DETEMIR (LEVEMIR) 100 UNIT/ML SYR SQ SCH (21:45)
--- NOTE | 2023-11-08 22:27 | P.HPIM ---
History of Present Illness H&P Date: 11/08/23 Chief Complaint: Right foot infection Patient is a 83-year-old female with a past medical history of diabetes type 2 insulin-dependent, atrial fibrillation on anticoagulation with Xarelto, hypertension, hyperlipidemia, osteoarthritis, peripheral vascular disease with history of left BKA and July 2023 followed by left AKA on 09/23/2023, recurrent urinary tract infections and other multiple medical problems presents to ER with complaints of right great toe infection, discoloration and ankle is getting larger in size. Patient was referred from wound care clinic. Otherwise denies any complaints of fever or chills. No chest pain or shortness of breath. No nausea vomiting abdominal pain or diarrhea. Denied dysuria or hematuria Foot x-ray showed no evidence of fracture. Severe degeneration changes throughout the joints of the foot. Soft tissue abnormality compatible with wound involving fourth digit no obvious osseous erosion or visualization is limited on some views. Possible subluxation of the first digit interphalangeal joint suggested on single view. Laboratory data showed WBC 11.4 hemoglobin 8.7 platelets 347 sodium 128 potassium 4.1 chloride 96 bicarb is 22 BUN 51 and creatinine 2.33 and blood sugar 174 calcium 8.0, AST 27 ALT 14 alk phos 150 albumin 3.2 Review of Systems Constitutional: Patient denies any fever or chills . No generalized weakness or weight loss. Abdomen: Patient denied nausea vomiting and diarrhea and abdominal pain. Cardiovascular: Patient denies any chest pain or short of breath no palpitatio ns. Respiratory: patient denied any cough or sputum production. No shortness of breath Neurologic: Patient denied any numbness or tingling. no headache. Musculoskeletal: Patient denies any complaints of joint swelling or deformity. Right foot infection Skin: Negative Psychiatric: Negative Endocrine: No heat or cold intolerance. No recent weight gain. Genitourinary: No dysuria or hematuria. All other 14 point ROS negative except the above Past Medical History Past Medical History: Atrial Fibrillation, Heart Failure, CVA/TIA, Diabetes Mellitus, Hyperlipidemia, Hypertension, Osteoarthritis (OA), Renal Disease Additional Past Medical History / Comment(s): wound rt ankle and Right first, second, third and fourth toes, L BKA July 2023, L AKA 2023, frequent UTIs, shingles 2022 History of Any Multi-Drug Resistant Organisms: MRSA Date of last positivie culture/infection: 2019 approx. MDRO Source:: Urine Past Surgical History: Cholecystectomy, Orthopedic Surgery Additional Past Surgical History / Comment(s): left foot all toes amputated 2021; Left BKA July 2023, Left AKA September 2023, right abdominal hematoma surgically removed. Past Anesthesia/Blood Transfusion Reactions: No Reported Reaction Past Psychological History: No Psychological Hx Reported Additional Psychological History / Comment(s): Pt resides with daughter W/C bound. One person transfer. Smoking Status: Never smoker Past Alcohol Use History: Unable to Obtain Past Drug Use History: Unable to Obtain - Past Family History Sister(s) Family Medical History: Cancer Additional Family Medical History / Comment(s): Renal cancer. Brother(s) Family Medical History: Cancer Additional Family Medical History / Comment(s): Renal cancer Medications and Allergies Home Medications Medication Instructions Recorded Confirmed Type Folic Acid 1 mg PO DAILY 02/20/22 11/07/23 History Potassium Chloride ER [K-Dur 10] 10 meq PO DAILY 02/20/22 11/07/23 History Tamsulosin HCl [Flomax] 0.4 mg PO DAILY 02/20/22 11/07/23 History Empagliflozin [Jardiance] 10 mg PO DAILY 04/26/22 11/07/23 History Furosemide [Lasix] 20 mg PO DAILY 04/26/22 11/07/23 History Insulin Aspart [NovoLOG Flexpen] See Protocol SQ ACHS 11/07/22 11/07/23 History Acetaminophen Tab [Tylenol] 650 mg PO Q6HR PRN tab 11/09/22 11/07/23 Rx Sodium Bicarbonate Tab 650 mg PO DAILY 07/30/23 11/07/23 History hydrALAZINE HCL [Apresoline] 25 mg PO TID tab 08/06/23 11/07/23 Rx Atorvastatin [Lipitor] 20 mg PO DAILY 09/15/23 11/07/23 History Dulaglutide [Trulicity] 0.75 mg SQ THOMSON 09/15/23 11/07/23 History Ondansetron [Zofran] 4 mg PO Q6H PRN 09/15/23 11/07/23 History Ascorbic Acid [Vitamin C] 250 mg PO BID 10/04/23 11/07/23 History Collagenase [Santyl Ointment] 1 applic TOPICAL DAILY 10/04/23 11/07/23 History Multivitamins, Thera [Multivitamin 1 tab PO DAILY 10/04/23 11/07/23 History (formulary)] Rivaroxaban [Xarelto] 15 mg PO HS 10/04/23 11/07/23 History Sodium Hypochlorite (Dankin's 1 applic TOPICAL DAILY 10/04/23 11/07/23 History Solution) 0.25% DULoxetine HCL [Cymbalta] 30 mg PO DAILY 10/11/23 11/07/23 History Insulin Glargine,Hum.rec.anlog 10 units SQ DAILY 10/11/23 11/07/23 History [Lantus Solostar Pen] Allergies Allergy/AdvReac Type Severity Reaction Status Date / Time aspirin Allergy Severe Anaphylaxis Verified 11/07/23 20:34 Physical Exam Vitals: Vital Signs Temp Pulse Pulse Resp BP BP Pulse Ox 11/08/23 13:45 98.2 F 64 16 149/65 100 11/08/23 10:41 98.3 F 66 18 146/61 96 11/08/23 06:09 76 16 129/56 99 11/08/23 04:00 64 16 140/82 99 11/08/23 00:50 62 16 152/67 99 11/07/23 21:33 66 16 153/70 100 11/07/23 17:22 97.9 F 69 18 116/58 100 Intake and Output 11/07/23 11/08/23 11/08/23 22:59 06:59 14:59 Other: Weight 65.317 kg 65.317 kg PHYSICAL EXAMINATION: Patient is lying in the bed comfortably, no acute distress, awake alert and oriented.. HEENT: Normocephalic. Neck is supple. Pupils reactive. Nostrils clear. Oral cavity is moist. Neck reveals no JVD, carotid bruits, or thyromegaly. CHEST EXAMINATION: Trachea is central. Symmetrical expansion. Lung natarajan clear to auscultation and percussion. CARDIAC: Normal S1, S2 with no gallops. No murmurs ABDOMEN: Soft. Bowel sounds normal. No organomegaly. No abdominal bruits. Extremities: Left AKA. Right great toe ulcer with gangrenous changes/discoloration and right ankle ulcer. No clubbing or cyanosis Neurologically awake, alert, oriented x3 with well-coordinated movements. No focal deficits noted Skin: No rash or skin lesions. Psychiatric: Coperative. Nonsuicidal Musculoskeletal: No joint swelling or deformity. Results CBC & Chem 7: 11/08/23 06:09 11/08/23 06:09 Labs: Abnormal Lab Results - Last 24 Hours (Table) 11/07/23 11/07/23 11/07/23 Range/Units 18:54 18:54 19:58 WBC 11.4 H (3.8-10.6) k/uL RBC 3.01 L (3.80-5.40) m/uL Hgb 8.7 L (11.4-16.0) gm/dL Hct 27.1 L (34.0-46.0) % MCHC (32.0-37.0) g/dL RDW 15.8 H (11.5-15.5) % Immature Gran # (0.00-0.04) X 10*3/uL Neutrophils # 7.9 H (1.3-7.7) k/uL Eosinophils # (0.04-0.35) X 10*3/uL Sodium 128 L (137-145) mmol/L Chloride 96 L (98-107) mmol/L Anion Gap (4.00-12.00) mmol/L BUN 51 H (7-17) mg/dL Creatinine 2.33 H (0.52-1.04) mg/dL Est GFR (CKD-EPI) (>=60) Glucose 174 H (74-99) mg/dL POC Glucose (mg/dL) 240 H (70-110) mg/dL Calcium 8.0 L (8.4-10.2) mg/dL Alkaline Phosphatase 150 H (38-126) U/L Albumin 3.2 L (3.5-5.0) g/dL Globulin (1.6-3.3) g/dL Albumin/Globulin Ratio (1.60-3.17) Ratio 11/08/23 11/08/23 Range/Units 06:09 06:09 WBC (3.8-10.6) k/uL RBC 2.59 L (3.80-5.40) m/uL Hgb 7.3 L (11.4-16.0) gm/dL Hct 23.4 L (34.0-46.0) % MCHC 31.2 L (32.0-37.0) g/dL RDW 15.9 H (11.5-15.5) % Immature Gran # 0.08 H (0.00-0.04) X 10*3/uL Neutrophils # (1.3-7.7) k/uL Eosinophils # 0.61 H (0.04-0.35) X 10*3/uL Sodium 132 L (137-145) mmol/L Chloride 94 L (98-107) mmol/L Anion Gap 16.20 H (4.00-12.00) mmol/L BUN 45.1 H (7-17) mg/dL Creatinine 2.4 H (0.52-1.04) mg/dL Est GFR (CKD-EPI) 20 L (>=60) Glucose 172 H (74-99) mg/dL POC Glucose (mg/dL) (70-110) mg/dL Calcium 8.1 L (8.4-10.2) mg/dL Alkaline Phosphatase (38-126) U/L Albumin 2.7 L (3.5-5.0) g/dL Globulin 3.7 H (1.6-3.3) g/dL Albumin/Globulin Ratio 0.73 L (1.60-3.17) Ratio Thrombosis Risk Factor Assmnt - DVT/VTE Prophylaxis DVT/VTE Prophylaxis: Pharmacologic Prophylaxis ordered - Choose All That Apply Each Risk Factor Represents 3 Points: Age 75 years or older Thrombosis Risk Factor Assessment Total Risk Factor Score: 3 Thrombosis Risk Factor Assessment Level: Moderate Risk Assessment and Plan Assessment: Right toe and right ankle/heel diabetic ulcer with discoloration and gangrenous changes. History of left AKA on 09/23/2023 Hyperglycemia is uncontrolled diabetes type 2 Diabetic peripheral neuropathy Peripheral vascular disease Chronic atrial fibrillation on anticoagulation with Xarelto Hypertension CKD stage IV with baseline creatinine around 1.5-2. DVT prophylaxis patient is already on Xarelto History of CVA/TIA Osteoarthritis Plan: Patient will be continued on antibiotics no cough daptomycin and Zosyn. Vascular surgery was consulted and recommends continue local wound care. Patient has not been tested any surgical intervention/amputation at this time. Continued pain management. Continue with other home medications and follow-up closely. Vascular surgery and ID is on board. Prognosis guarded at this time. Time with Patient: Greater than 30
[2023-11-09] MEDS: PIPERACILLIN-TAZOBACTAM 3.375 GM in SODIUM CHLORIDE 0.9% 100 ML IVPB SCH (00:22)
[2023-11-09 07:34] LABS: Glucose,Whole Blood 101 mg/dL (70-110)
[2023-11-09] MEDS ORDERED: COLLAGENASE 250 UNIT/GM OINTMENT 30 GM TUBE TOPICAL SCH (09:00)
--- NOTE | 2023-11-09 09:53 | P.CONS ---
History of Present Illness - Reason for Consult Consult date: 11/08/23 - History of Present Illness Patient is a 83-year-old female with a past medical history significant for atrial fibrillation diabetes mellitus hypertension hyperlipidemia CVA TIA patient did have a history of left foot diabetic foot infection requiring initial transmetatarsal amputation followed by left BKA and afterwards the patient did have MARII in September 2023 also with a history of frequent UTIs and shingles apparently the patient did have a ulcer on the dorsum aspect of the right big toe that has been debrided at [facility] [place] subsequently patient noticed to have increasing swelling redness and discoloration to the right big toe for the patient was brought into the office yesterday for evaluation patient was noticed to have a right big toe gangrene also on dragging of the right second and third toe keeping in mind extensive infection patient was directed to go to the hospital Case was discussed with the ER physician last night cultures were obtained and the patient was empirically started on dapt omycin and Zosyn pending evaluation this morning. At the time my evaluation this morning the patient is afebrile patient is breathing comfortably patient has been dealing with this ulceration for more than a week or so and seem to have got worse after debridement with more swelling and redness and discoloration patient did have diabetic neuropathy denies significant pain did have some drainage patient on presentation to the hospital was afebrile patient was not tachycardic hypotensive or hypoxic patient did have a white count of 11.4 with a left shift BUN was 51 creatinine is 2.33 liver enzymes are normal cultures are pending Past Medical History Past Medical History: Atrial Fibrillation, Heart Failure, CVA/TIA, Diabetes Mellitus, Hyperlipidemia, Hypertension, Osteoarthritis (OA), Renal Disease Additional Past Medical History / Comment(s): wound rt ankle and Right first, second, third and fourth toes, L BKA July 2023, L AKA Ma2023, frequent UTIs, shingles 2022 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 MDRO Source:: Urine Past Surgical History: Cholecystectomy, Orthopedic Surgery Additional Past Surgical History / Comment(s): left foot all toes amputated 2021; Left BKA July 2023, Left AKA September 2023, right abdominal hematoma surgically removed. Past Anesthesia/Blood Transfusion Reactions: No Reported Reaction Past Psychological History: No Psychological Hx Reported Additional Psychological History / Comment(s): Pt resides with daughter W/C bound. One person transfer. Smoking Status: Never smoker Past Alcohol Use History: Unable to Obtain Past Drug Use History: Unable to Obtain - Past Family History Sister(s) Family Medical History: Cancer Additional Family Medical History / Comment(s): Renal cancer. Brother(s) Family Medical History: Cancer Additional Family Medical History / Comment(s): Renal cancer Medications and Allergies Home Medications Medication Instructions Recorded Confirmed Type Folic Acid 1 mg PO DAILY 02/20/22 11/07/23 History Potassium Chloride ER [K-Dur 10] 10 meq PO DAILY 02/20/22 11/07/23 History Tamsulosin HCl [Flomax] 0.4 mg PO DAILY 02/20/22 11/07/23 History Empagliflozin [Jardiance] 10 mg PO DAILY 04/26/22 11/07/23 History Furosemide [Lasix] 20 mg PO DAILY 04/26/22 11/07/23 History Insulin Aspart [NovoLOG Flexpen] See Protocol SQ ACHS 11/07/22 11/07/23 History Acetaminophen Tab [Tylenol] 650 mg PO Q6HR PRN tab 11/09/22 11/07/23 Rx Sodium Bicarbonate Tab 650 mg PO DAILY 07/30/23 11/07/23 History hydrALAZINE HCL [Apresoline] 25 mg PO TID tab 08/06/23 11/07/23 Rx Atorvastatin [Lipitor] 20 mg PO DAILY 09/15/23 11/07/23 History Dulaglutide [Trulicity] 0.75 mg SQ THOMSON 09/15/23 11/07/23 History Ondansetron [Zofran] 4 mg PO Q6H PRN 09/15/23 11/07/23 History Ascorbic Acid [Vitamin C] 250 mg PO BID 10/04/23 11/07/23 History Collagenase [Santyl Ointment] 1 applic TOPICAL DAILY 10/04/23 11/07/23 History Multivitamins, Thera [Multivitamin 1 tab PO DAILY 10/04/23 11/07/23 History (formulary)] Rivaroxaban [Xarelto] 15 mg PO HS 10/04/23 11/07/23 History Sodium Hypochlorite (Dankin's 1 applic TOPICAL DAILY 10/04/23 11/07/23 History Solution) 0.25% DULoxetine HCL [Cymbalta] 30 mg PO DAILY 10/11/23 11/07/23 History Insulin Glargine,Hum.rec.anlog 10 units SQ DAILY 10/11/23 11/07/23 History [Lantus Solostar Pen] Allergies Allergy/AdvReac Type Severity Reaction Status Date / Time aspirin Allergy Severe Anaphylaxis Verified 11/07/23 20:34 Physical Exam Vitals: Vital Signs Temp Pulse Pulse Resp BP BP Pulse Ox 11/08/23 10:41 98.3 F 66 18 146/61 96 11/08/23 06:09 76 16 129/56 99 11/08/23 04:00 64 16 140/82 99 11/08/23 00:50 62 16 152/67 99 11/07/23 21:33 66 16 153/70 100 11/07/23 17:22 97.9 F 69 18 116/58 100 Intake and Output 11/07/23 11/08/23 11/08/23 22:59 06:59 14:59 Other: Weight 65.317 kg 65.317 kg Results CBC & Chem 7: 11/08/23 06:09 11/08/23 06:09 Labs: Abnormal Lab Results - Last 24 Hours (Table) 11/07/23 11/07/23 11/07/23 Range/Units 18:54 18:54 19:58 WBC 11.4 H (3.8-10.6) k/uL RBC 3.01 L (3.80-5.40) m/uL Hgb 8.7 L (11.4-16.0) gm/dL Hct 27.1 L (34.0-46.0) % MCHC (32.0-37.0) g/dL RDW 15.8 H (11.5-15.5) % Immature Gran # (0.00-0.04) X 10*3/uL Neutrophils # 7.9 H (1.3-7.7) k/uL Eosinophils # (0.04-0.35) X 10*3/uL Sodium 128 L (137-145) mmol/L Chloride 96 L (98-107) mmol/L Anion Gap (4.00-12.00) mmol/L BUN 51 H (7-17) mg/dL Creatinine 2.33 H (0.52-1.04) mg/dL Est GFR (CKD-EPI) (>=60) Glucose 174 H (74-99) mg/dL POC Glucose (mg/dL) 240 H (70-110) mg/dL Calcium 8.0 L (8.4-10.2) mg/dL Alkaline Phosphatase 150 H (38-126) U/L Albumin 3.2 L (3.5-5.0) g/dL Globulin (1.6-3.3) g/dL Albumin/Globulin Ratio (1.60-3.17) Ratio 11/08/23 11/08/23 Range/Units 06:09 06:09 WBC (3.8-10.6) k/uL RBC 2.59 L (3.80-5.40) m/uL Hgb 7.3 L (11.4-16.0) gm/dL Hct 23.4 L (34.0-46.0) % MCHC 31.2 L (32.0-37.0) g/dL RDW 15.9 H (11.5-15.5) % Immature Gran # 0.08 H (0.00-0.04) X 10*3/uL Neutrophils # (1.3-7.7) k/uL Eosinophils # 0.61 H (0.04-0.35) X 10*3/uL Sodium 132 L (137-145) mmol/L Chloride 94 L (98-107) mmol/L Anion Gap 16.20 H (4.00-12.00) mmol/L BUN 45.1 H (7-17) mg/dL Creatinine 2.4 H (0.52-1.04) mg/dL Est GFR (CKD-EPI) 20 L (>=60) Glucose 172 H (74-99) mg/dL POC Glucose (mg/dL) (70-110) mg/dL Calcium 8.1 L (8.4-10.2) mg/dL Alkaline Phosphatase (38-126) U/L Albumin 2.7 L (3.5-5.0) g/dL Globulin 3.7 H (1.6-3.3) g/dL Albumin/Globulin Ratio 0.73 L (1.60-3.17) Ratio Assessment and Plan Plan: 1patient with extensive right big toe diabetic foot infection concerning for gangrene with widening to the right big toe and right to the right second and third toe in this patient who did have a history of PAD and ended up Losing her left lower extremity now with evidence of significant infection patient benefit from vascular workup and possible ablation of the right big toe as clinically doubt it will help with the antibiotic alone this has been discussed with the admitting home however the family yesterday as well as today. 2we will consult Dr. Don who has seen the patient in the past for vascular evaluation debridement versus amputation. 3patient to continue with the Zosyn and daptomycin while waiting for the culture to finalize. We will follow on clinical condition and cultures to further adjust medication if needed Thank you for this consultation we will follow the patient along with you Dictation was produced using [employer] dictation software. please excuse any grammatical, word or spelling errors. Time with Patient: Greater than 30
[2023-11-09] MEDS: FUROSEMIDE 20 MG TAB PO SCH (10:15)
[2023-11-09] MEDS: ATORVASTATIN 20 MG TAB PO SCH (10:19)
[2023-11-09] MEDS: MULTIVITAMINS, THERA 1 EACH TAB PO SCH (10:19)
[2023-11-09 10:54] LABS: BUN/Creat Ratio 16.33 Ratio (12.00-20.00); Blood Urea Nitrogen 39.2 mg/dL (9.0-27.0); Calcium 7.8 mg/dL (8.7-10.3); Carbon Dioxide 20.4 mmol/L (21.6-31.8); Chloride 98 mmol/L (96-109); Glucose 85 mg/dL (70-110); Potassium 3.6 mmol/L (3.5-5.5); Sodium 131 mmol/L (135-145)
[2023-11-09 11:15] LABS: Basophils # (A) 0.02 X 10*3/uL (0.00-0.10); Basophils % (A) 0.2 %; Eosinophils # (A) 0.71 X 10*3/uL (0.04-0.35); Eosinophils % (A) 8.2 %; HCT 22.2 % (37.2-46.3); HGB 6.9 g/dL (12.0-15.0); Lymphocytes # (A) 1.94 X 10*3/uL (0.90-5.00); Lymphocytes % (A) 22.5 %; MCH 27.9 pg (27.0-32.0); MCHC 31.1 g/dL (32.0-37.0); MCV 89.9 FL (80.0-97.0); Mean Platelet Volume 9.9 FL (9.5-12.2); Monocytes # (A) 0.93 X 10*3/uL (0.20-1.00); Monocytes % (A) 10.8 %; NRBC Per 100 WBC 0 X 10*3/uL (0.00-0.01); Neutrophils # (A) 4.99 X 10*3/uL (1.80-7.70); Neutrophils % (A) 57.7 %; Platelet Count 289 X 10*3/uL (140-440); RBC 2.47 X 10*6/uL (4.10-5.20); WBC 8.64 X 10*3/uL (4.50-10.00)
--- NOTE | 2023-11-09 12:28 | P.PN ---
Subjective Progress Note Date: 11/09/23 Principal diagnosis: Right foot diabetic wounds Patient seen and examined today sitting up. Her daughter is at the bedside. She is without any complaints at this time. She has been afebrile. No acute changes through the night. Today's hemoglobin 6.9. Objective - Vital Signs Vital signs: Vital Signs Temp 98.4 F 11/09/23 07:51 Pulse 99 11/09/23 10:34 Resp 16 11/09/23 07:51 BP 145/66 11/09/23 10:34 Pulse Ox 99 11/09/23 07:51 FiO2 Intake & Output 11/08/23 11/09/23 11/09/23 18:59 06:59 18:59 Intake Total 780 590 200 Output Total 700 500 Balance 80 90 200 Weight 65.317 kg Intake: Oral 780 590 200 Output: Urine 700 500 Other: Voiding Method External Catheter External Catheter - Exam General appearance: The patient is alert, oriented, appears in no acute distress. HET: Head is normocephalic and atraumatic. Neck: Supple. Abdomen: Soft, nondistended. Extremities: Left [id number] amputation. Right foot with dressing clean dry and intact. Neurological: Alert and oriented. No focal deficits noted. - Labs CBC & Chem 7: 11/09/23 07:10 11/09/23 07:10 Labs: Abnormal Lab Results - Last 24 Hours (Table) 11/08/23 11/08/23 11/09/23 Range/Units 17:03 21:39 07:10 RBC (4.10-5.20) X 10*6/uL Hgb (12.0-15.0) g/dL Hct (37.2-46.3) % MCHC (32.0-37.0) g/dL RDW (11.5-14.5) % Immature Gran # (0.00-0.04) X 10*3/uL Eosinophils # (0.04-0.35) X 10*3/uL Sodium (135-145) mmol/L Carbon Dioxide (21.6-31.8) mmol/L Anion Gap (4.00-12.00) mmol/L BUN (9.0-27.0) mg/dL Creatinine (0.6-1.5) mg/dL Est GFR (CKD-EPI) (>=60) POC Glucose (mg/dL) 230 H 204 H (70-110) mg/dL Hemoglobin A1c 6.9 H (<=6.0) % Calcium (8.7-10.3) mg/dL 11/09/23 11/09/23 Range/Units 07:10 07:10 RBC 2.47 L (4.10-5.20) X 10*6/uL Hgb 6.9 A* (12.0-15.0) g/dL Hct 22.2 L (37.2-46.3) % MCHC 31.1 L (32.0-37.0) g/dL RDW 16.0 H (11.5-14.5) % Immature Gran # 0.05 H (0.00-0.04) X 10*3/uL Eosinophils # 0.71 H (0.04-0.35) X 10*3/uL Sodium 131 L (135-145) mmol/L Carbon Dioxide 20.4 L (21.6-31.8) mmol/L Anion Gap 12.60 H (4.00-12.00) mmol/L BUN 39.2 H (9.0-27.0) mg/dL Creatinine 2.4 H (0.6-1.5) mg/dL Est GFR (CKD-EPI) 20 L (>=60) POC Glucose (mg/dL) (70-110) mg/dL Hemoglobin A1c (<=6.0) % Calcium 7.8 L (8.7-10.3) mg/dL Assessment and Plan Assessment: 1. Right toe diabetic ulcer 1 through 3 with eschar 2. Left ankle diabetic ulcer with eschar 3. History of ischemic right lower extremity status post [id number] amputation 4. Diabetes mellitus 5. Peripheral neuropathy 6. Peripheral arterial disease 7. History of atrial fibrillation 8. Hypertension 9. Chronic renal disease Plan: 1. No plans on any surgical intervention. Continue local wound care as r ecommended by infectious disease. Patient is not interested in any further amputations. 2. Possible CT angiogram with runoff if kidney function improves otherwise this can be done as an outpatient. 3. Rest of medical management per primary medical team Thank you for this consultation, patient is cleared from vascular surgery for discharge. The impression and plan of care has been dictated as directed. I performed a history and examination of this patient, discussed the same with the dictator. I agree with the dictator's note ,documented as a scribe. Any additional findings or plans will be noted.
[2023-11-09 12:40] LABS: Glucose,Whole Blood 162 mg/dL (70-110)
[2023-11-09] MEDS ORDERED: FUROSEMIDE 10 MG/ML 2 ML VIAL IV ONE (12:47)
[2023-11-09 13:23] VITALS: BMI 23.2
--- NOTE | 2023-11-09 16:12 | P.PN ---
Subjective Progress Note Date: 11/09/23 Patient is a 83-year-old female with a past medical history of diabetes type 2 insulin-dependent, atrial fibrillation on anticoagulation with Xarelto, hypertension, hyperlipidemia, osteoarthritis, peripheral vascular disease with history of left BKA and July 2023 followed by left AKA on 09/23/2023, recurrent urinary tract infections and other multiple medical problems presents to ER with complaints of right great toe infection, discoloration and ankle is getting larger in size. Patient was referred from wound care clinic. Otherwise denies any complaints of fever or chills. No chest pain or shortness of breath. No nausea vomiting abdominal pain or diarrhea. Denied dysuria or hematuria Foot x-ray showed no evidence of fracture. Severe degeneration changes throughout the joints of the foot. Soft tissue abnormality compatible with wound involving fourth digit no obvious osseous erosion or visualization is limited on some views. Possible subluxation of the first digit interphalangeal joint suggested on single view. Laboratory data showed WBC 11.4 hemoglobin 8.7 platelets 347 sodium 128 potassium 4.1 chloride 96 bicarb is 22 BUN 51 and creatinine 2.33 and blood sugar 174 calcium 8.0, AST 27 ALT 14 alk phos 150 albumin 3.2 11/09/2023 Patient is seen in follow-up today currently sitting up in the chair with daughter at the bedside no acute overnight issues noted. Patient continues with local wound care along with antibiotics in the form of daptomycin and Zosyn with infectious disease following. Currently awaiting cultures to determine appropriate antibiotics. After further discussion family would like palliative services on discharge as patient is refusing any further surgical intervention and also requesting to be no code. Per vascular surgery, she is cleared for discharge once cleared by consultations. Infectious disease following and would like to wait until cultures have finalized. Patient is afebrile with no reports of chest pain or shortness of breath. Patient is tolerating diet with no reported nausea or vomiting. Continue with Accu-Cheks before meals and at bedtime and current insulin regimen and will adjust as needed. Plan is for patient to return home on discharge with daughters. Hemoglobin was noted to be 6.9 this morning and will order 1 unit of PRBC and also give a dose of IV Lasix post infusion. White count remains normal and platelets are within normal limits. Review of systems: Constitutional: No reports of fatigue, fever, or chills Cardiovascular: No reports of chest pain or palpitations Respiratory: No reports of shortness of breath or cough GI: No reports of nausea, vomiting, or diarrhea : No reports of dysuria or retention Neurovascular: reports of generalized weakness with some mild right foot pain All medications have been reviewed PHYSICAL EXAMINATION: Patient is sitting up in the chair, no acute distress, awake alert and oriented.. Well-developed, elderly appearing HEENT: Normocephalic. Neck is supple. Pupils reactive. Nostrils clear. Oral cavity is moist. Neck reveals no JVD, carotid bruits, or thyromegaly. CHEST EXAMINATION: Trachea is central. Symmetrical expansion. Lung natarajan clear to auscultation and percussion. CARDIAC: Normal S1, S2 with no gallops. No murmurs ABDOMEN: Soft. Bowel sounds normal. No organomegaly. No abdominal bruits. Extremities: Left AKA. Right great toe ulcer with gangrenous changes/discoloration and right ankle ulcer. No clubbing or cyanosis Neurologically awake, alert, oriented x3 with well-coordinated movements. No focal deficits noted Skin: No rash or skin lesions. Psychiatric: Cooperative. Non-suicidal Musculoskeletal: No joint swelling or deformity. Assessment: Right toe and right ankle/heel diabetic ulcer with discoloration and gangrenous changes. History of left AKA on 09/23/2023 Hyperglycemia is uncontrolled diabetes type 2 Diabetic peripheral neuropathy Peripheral vascular disease Chronic atrial fibrillation on anticoagulation with Xarelto Hypertension Anemia of chronic disease CKD stage IV with baseline creatinine around 1.5-2. DVT prophylaxis patient is already on Xarelto History of CVA/TIA Osteoarthritis GI prophylaxis No code Plan: Patient will be continued on antibiotics in the form of daptomycin and Zosyn. Vascular surgery was consulted and recommends continue local wound care as patient is refusing any further surgical intervention or amputation at this time. Infectious disease following and will continue on antibiotics and will discuss further regarding discharge antibiotics once cultures have finalized and showing clinical improvement Consult was placed for case management working on discharge planning as plan is to return home and will place a consult in the outpatient setting for palliative care. Patient wishes to be no code and again stresses the importance that she does not want any further surgical intervention. Hemoglobin is low today at 6.9 and will give 1 unit of PRBC. Follow-up on repeat labs in the a.m. Home medications reviewed and resumed as appropriate Due to multiple complex medical issues, overall prognosis is guarded The impression and plan of care has been dictated by Mildred Swift, Nurse Practitioner as directed. Dr. Wil MD I have performed a history and examination and MDM of this patient, discussed the same with the dictator, and agree with the dictator's assessment and plan as written ,documented as a scribe. Based on total visit time, I have performed more than 50% of the visit. Objective - Vital Signs Vital signs: Vital Signs Temp 98.4 F 11/09/23 07:51 Pulse 99 11/09/23 10:34 Resp 16 11/09/23 07:51 BP 145/66 11/09/23 10:34 Pulse Ox 99 11/09/23 07:51 FiO2 Intake & Output 11/08/23 11/09/23 11/09/23 18:59 06:59 18:59 Intake Total 780 590 200 Output Total 700 500 Balance 80 90 200 Weight 65.317 kg Intake: Oral 780 590 200 Output: Urine 700 500 Other: Voiding Method External Catheter External Catheter Bedside Commode - Labs CBC & Chem 7: 11/09/23 07:10 11/09/23 07:10 Labs: Abnormal Lab Results - Last 24 Hours (Table) 11/08/23 11/08/23 11/09/23 Range/Units 17:03 21:39 07:10 RBC (4.10-5.20) X 10*6/uL Hgb (12.0-15.0) g/dL Hct (37.2-46.3) % MCHC (32.0-37.0) g/dL RDW (11.5-14.5) % Immature Gran # (0.00-0.04) X 10*3/uL Eosinophils # (0.04-0.35) X 10*3/uL Sodium (135-145) mmol/L Carbon Dioxide (21.6-31.8) mmol/L Anion Gap (4.00-12.00) mmol/L BUN (9.0-27.0) mg/dL Creatinine (0.6-1.5) mg/dL Est GFR (CKD-EPI) (>=60) POC Glucose (mg/dL) 230 H 204 H (70-110) mg/dL Hemoglobin A1c 6.9 H (<=6.0) % Calcium (8.7-10.3) mg/dL 11/09/23 11/09/23 11/09/23 Range/Units 07:10 07:10 12:23 RBC 2.47 L (4.10-5.20) X 10*6/uL Hgb 6.9 A* (12.0-15.0) g/dL Hct 22.2 L (37.2-46.3) % MCHC 31.1 L (32.0-37.0) g/dL RDW 16.0 H (11.5-14.5) % Immature Gran # 0.05 H (0.00-0.04) X 10*3/uL Eosinophils # 0.71 H (0.04-0.35) X 10*3/uL Sodium 131 L (135-145) mmol/L Carbon Dioxide 20.4 L (21.6-31.8) mmol/L Anion Gap 12.60 H (4.00-12.00) mmol/L BUN 39.2 H (9.0-27.0) mg/dL Creatinine 2.4 H (0.6-1.5) mg/dL Est GFR (CKD-EPI) 20 L (>=60) POC Glucose (mg/dL) 162 H (70-110) mg/dL Hemoglobin A1c (<=6.0) % Calcium 7.8 L (8.7-10.3) mg/dL
[2023-11-09 17:14] LABS: Glucose,Whole Blood 183 mg/dL (70-110)
[2023-11-09 20:04] LABS: Glucose,Whole Blood 227 mg/dL (70-110)
[2023-11-09] MEDS: DAPTOmycin 500 MG in SODIUM CHLORIDE 0.9% 50 ML IVPB SCH (20:07)
[2023-11-09] MEDS: FUROSEMIDE 10 MG/ML 2 ML VIAL IV ONE (20:08)
[2023-11-10 07:13] LABS: Glucose,Whole Blood 90 mg/dL (70-110)
[2023-11-10 09:36] LABS: Basophils # (A) 0.03 X 10*3/uL (0.00-0.10); Basophils % (A) 0.3 %; Eosinophils # (A) 0.54 X 10*3/uL (0.04-0.35); HCT 26.7 % (37.2-46.3); HGB 8.6 g/dL (12.0-15.0); Lymphocytes # (A) 1.58 X 10*3/uL (0.90-5.00); Lymphocytes % (A) 17.5 %; MCH 29.3 pg (27.0-32.0); MCHC 32.2 g/dL (32.0-37.0); MCV 90.8 FL (80.0-97.0); Mean Platelet Volume 10.2 FL (9.5-12.2); Monocytes # (A) 0.92 X 10*3/uL (0.20-1.00); Monocytes % (A) 10.2 %; NRBC Per 100 WBC 0 X 10*3/uL (0.00-0.01); Neutrophils # (A) 5.92 X 10*3/uL (1.80-7.70); Neutrophils % (A) 65.3 %; Platelet Count 273 X 10*3/uL (140-440); RBC 2.94 X 10*6/uL (4.10-5.20); RDW 15.7 % (11.5-14.5); WBC 9.05 X 10*3/uL (4.50-10.00)
[2023-11-10 10:16] LABS: BUN/Creat Ratio 19.24 Ratio (12.00-20.00); Blood Urea Nitrogen 48.1 mg/dL (9.0-27.0); Calcium 8.1 mg/dL (8.7-10.3); Carbon Dioxide 20.4 mmol/L (21.6-31.8); Chloride 98 mmol/L (96-109); Glucose 66 mg/dL (70-110); Magnesium 1.7 mg/dL (1.5-2.4); Sodium 134 mmol/L (135-145)
[2023-11-10 12:05] LABS: Glucose,Whole Blood 139 mg/dL (70-110)
[2023-11-10] MEDS: MAGNESIUM SULFATE-D5W PMX 1 GM in DEXTROSE/WATER 1 100ML.BAG IVPB ONE (14:55)
--- NOTE | 2023-11-10 15:30 | P.PN ---
Subjective Progress Note Date: 11/09/23 Principal diagnosis: Reason for follow-up is right big toe gangrene diabetic foot infection Patient is a 83-year-old female with a past medical history significant for atrial fibrillation diabetes mellitus hypertension hyperlipidemia CVA TIA patient did have a history of left foot diabetic foot infection requiring initial transmetatarsal amputation followed by left BKA and afterwards the patient did have MARII in September 2023, recently has been dealing with the wound on the dorsum aspect of the right big toe which has been debrided and the wound care now presenting with a right big toe gangrene. On today's evaluation that is 11/09/2023,the patient denies any fever or any chills, patient is breathing comfortably on room air, the patient denies chest pain shortness of breath and no significant cough, patient denies abdominal pain, no nausea vomiting or diarrhea.Patient denies any worsening pain to the right foot wound. Patient white count is 8.64, creatinine is 2.4 Objective - Vital Signs Vital signs: Vital Signs Temp 98.4 F 11/09/23 07:51 Pulse 99 11/09/23 10:34 Resp 16 11/09/23 07:51 BP 145/66 11/09/23 10:34 Pulse Ox 99 11/09/23 07:51 FiO2 Intake & Output 11/08/23 11/09/23 11/09/23 18:59 06:59 18:59 Intake Total 780 590 200 Output Total 700 500 Balance 80 90 200 Weight 65.317 kg Intake: Oral 780 590 200 Output: Urine 700 500 Other: Voiding Method External Catheter External Catheter Bedside Commode - Exam GENERAL DESCRIPTION: An elderly female lying in bed in no distress RESPIRATORY SYSTEM: Unlabored breathing , decreased breath sounds at bases HEART: S1 S2 regular rate and rhythm , ABDOMEN: Soft , no tenderness EXTREMITIES: Right foot is currently dressed - Labs CBC & Chem 7: 11/10/23 05:29 11/10/23 05:29 Labs: Abnormal Lab Results - Last 24 Hours (Table) 11/08/23 11/08/23 11/09/23 Range/Units 17:03 21:39 07:10 RBC (4.10-5.20) X 10*6/uL Hgb (12.0-15.0) g/dL Hct (37.2-46.3) % MCHC (32.0-37.0) g/dL RDW (11.5-14.5) % Immature Gran # (0.00-0.04) X 10*3/uL Eosinophils # (0.04-0.35) X 10*3/uL Sodium (135-145) mmol/L Carbon Dioxide (21.6-31.8) mmol/L Anion Gap (4.00-12.00) mmol/L BUN (9.0-27.0) mg/dL Creatinine (0.6-1.5) mg/dL Est GFR (CKD-EPI) (>=60) POC Glucose (mg/dL) 230 H 204 H (70-110) mg/dL Hemoglobin A1c 6.9 H (<=6.0) % Calcium (8.7-10.3) mg/dL 11/09/23 11/09/23 Range/Units 07:10 07:10 RBC 2.47 L (4.10-5.20) X 10*6/uL Hgb 6.9 A* (12.0-15.0) g/dL Hct 22.2 L (37.2-46.3) % MCHC 31.1 L (32.0-37.0) g/dL RDW 16.0 H (11.5-14.5) % Immature Gran # 0.05 H (0.00-0.04) X 10*3/uL Eosinophils # 0.71 H (0.04-0.35) X 10*3/uL Sodium 131 L (135-145) mmol/L Carbon Dioxide 20.4 L (21.6-31.8) mmol/L Anion Gap 12.60 H (4.00-12.00) mmol/L BUN 39.2 H (9.0-27.0) mg/dL Creatinine 2.4 H (0.6-1.5) mg/dL Est GFR (CKD-EPI) 20 L (>=60) POC Glucose (mg/dL) (70-110) mg/dL Hemoglobin A1c (<=6.0) % Calcium 7.8 L (8.7-10.3) mg/dL Assessment and Plan (1) Diabetic foot ulcer Current Visit: Yes Status: Acute Code(s): E11.621 - TYPE 2 DIABETES MELLITUS WITH FOOT ULCER; L97.509 - NON-PRESSURE CHRONIC ULCER OTH PRT UNSP FOOT W UNSP SEVERITY SNOMED Code(s): 761811797 (2) Gangrene of toe of right foot Current Visit: Yes Status: Acute Code(s): I96 - GANGRENE, NOT ELSEWHERE CLASSIFIED SNOMED Code(s): 32585307809576038 Plan: 1patient with extensive right big toe diabetic foot infection concerning for gangrene with widening to the right big toe and right to the right second and third toe in this patient who did have a history of PAD and ended up Losing her left lower extremity now with evidence of significant infection patient benefit from vascular workup and possible amputation of the right big toe as clinically doubt it will help with the antibiotic alone, patient has been evaluated by vascular surgery and apparently family has refused amputation they are recommending possible angiogram as an outpatient because of her elevated creatinine 2patient to continue with the Zosyn and daptomycin while waiting for the culture to finalize however chances of healing of this infection alone with antibiotic being a possibility this has been explained to the patient family in layman terms. Dictation was produced using [employer] software. please excuse any grammatical, word or spelling errors. Time with Patient: Less than 30
--- NOTE | 2023-11-10 15:31 | P.PN ---
Subjective Progress Note Date: 11/10/23 Principal diagnosis: Reason for follow-up is right big toe gangrene diabetic foot infection Patient is a 83-year-old female with a past medical history significant for atrial fibrillation diabetes mellitus hypertension hyperlipidemia CVA TIA patient did have a history of left foot diabetic foot infection requiring initial transmetatarsal amputation followed by left BKA and afterwards the patient did have MARII in September 2023, recently has been dealing with the wound on the dorsum aspect of the right big toe which has been debrided and the wound care now presenting with a right big toe gangrene. On today's evaluation that is 11/10/2023,the patient remains to be afebrile, patient is on room air not requiring supplemental oxygen and denies any shortness of breath no chest pain or cough.Patient denies having any nausea or vomiting, no abdominal pain and no diarrhea has been reported, patient denies pain to the right big toe. Patient white count is 9.05, creatinine is 2.5 cultures in the outpatient setting did grow MRSA and Pseudomonas aeruginosa and E. coli with sensitivities pending Objective - Vital Signs Vital signs: Vital Signs Temp 98.2 F 11/10/23 07:08 Pulse 84 11/10/23 08:40 Resp 14 11/10/23 08:40 BP 151/65 11/10/23 07:08 Pulse Ox 99 11/10/23 07:08 FiO2 Intake & Output 11/09/23 11/10/23 11/10/23 18:59 06:59 18:59 Intake Total 740 850 Balance 740 850 Weight 65.317 kg Intake: Oral 740 540 Blood Product 0 310 Rc As-1 Unit 0 310 [id number] Other: Voiding Method Toilet Toilet Toilet Bedside Commode Bedside Commode Bedside Commode # Voids 2 2 1 - Exam GENERAL DESCRIPTION: An elderly female lying in bed in no distress RESPIRATORY SYSTEM: Unlabored breathing , decreased breath sounds at bases HEART: S1 S2 regular rate and rhythm , ABDOMEN: Soft , no tenderness EXTREMITIES: Right foot is currently dressed, no drainage dressing was just changed per patient has it was not removed - Labs CBC & Chem 7: 11/10/23 05:29 11/10/23 05:29 Labs: Abnormal Lab Results - Last 24 Hours (Table) 11/09/23 11/09/23 11/09/23 Range/Units 12:23 14:03 17:00 RBC (4.10-5.20) X 10*6/uL Hgb (12.0-15.0) g/dL Hct (37.2-46.3) % RDW (11.5-14.5) % Immature Gran # (0.00-0.04) X 10*3/uL Eosinophils # (0.04-0.35) X 10*3/uL Sodium (135-145) mmol/L Carbon Dioxide (21.6-31.8) mmol/L Anion Gap (4.00-12.00) mmol/L BUN (9.0-27.0) mg/dL Creatinine (0.6-1.5) mg/dL Est GFR (CKD-EPI) (>=60) Glucose (70-110) mg/dL POC Glucose (mg/dL) 162 H 183 H (70-110) mg/dL Calcium (8.7-10.3) mg/dL Crossmatch See Detail 11/09/23 11/10/23 11/10/23 Range/Units 20:01 05:29 05:29 RBC 2.94 L (4.10-5.20) X 10*6/uL Hgb 8.6 L (12.0-15.0) g/dL Hct 26.7 L (37.2-46.3) % RDW 15.7 H (11.5-14.5) % Immature Gran # 0.06 H (0.00-0.04) X 10*3/uL Eosinophils # 0.54 H (0.04-0.35) X 10*3/uL Sodium 134 L (135-145) mmol/L Carbon Dioxide 20.4 L (21.6-31.8) mmol/L Anion Gap 15.60 H (4.00-12.00) mmol/L BUN 48.1 H (9.0-27.0) mg/dL Creatinine 2.5 H (0.6-1.5) mg/dL Est GFR (CKD-EPI) 19 L (>=60) Glucose 66 L (70-110) mg/dL POC Glucose (mg/dL) 227 H (70-110) mg/dL Calcium 8.1 L (8.7-10.3) mg/dL Crossmatch 06/22/24 Range/Units 12:03 RBC (4.10-5.20) X 10*6/uL Hgb (12.0-15.0) g/dL Hct (37.2-46.3) % RDW (11.5-14.5) % Immature Gran # (0.00-0.04) X 10*3/uL Eosinophils # (0.04-0.35) X 10*3/uL Sodium (135-145) mmol/L Carbon Dioxide (21.6-31.8) mmol/L Anion Gap (4.00-12.00) mmol/L BUN (9.0-27.0) mg/dL Creatinine (0.6-1.5) mg/dL Est GFR (CKD-EPI) (>=60) Glucose (70-110) mg/dL POC Glucose (mg/dL) 139 H (70-110) mg/dL Calcium (8.7-10.3) mg/dL Crossmatch Assessment and Plan (1) Diabetic foot ulcer Current Visit: Yes Status: Acute Code(s): E11.621 - TYPE 2 DIABETES MELLITUS WITH FOOT ULCER; L97.509 - NON-PRESSURE CHRONIC ULCER OTH PRT UNSP FOOT W UNSP SEVERITY SNOMED Code(s): 551372141 (2) Gangrene of toe of right foot Current Visit: Yes Status: Acute Code(s): I96 - GANGRENE, NOT ELSEWHERE CLASSIFIED SNOMED Code(s): 63550778135011039 Plan: 1patient with extensive right big toe diabetic foot infection concerning for gangrene with widening to the right big toe and right to the right second and third toe in this patient who did have a history of PAD and ended up Losing her left lower extremity now with evidence of significant infection patient benefit from vascular workup and possible amputation of the right big toe as clinically doubt it will help with the antibiotic alone, patient has been evaluated by vascular surgery and apparently family has refused amputation they are recommending possible angiogram as an outpatient because of her elevated creatinine 2patient local culture currently growing Pseudomonas and Staph aureus with sensitivities pending 3to continue with the Zosyn and daptomycin while waiting for the culture to finalize Dictation was produced using [employer] software. please excuse any grammatical, word or spelling errors. Time with Patient: Less than 30
[2023-11-10 17:10] LABS: Glucose,Whole Blood 177 mg/dL (70-110)
[2023-11-10 20:16] LABS: Glucose,Whole Blood 187 mg/dL (70-110)
--- NOTE | 2023-11-11 01:22 | P.PN ---
Progress Note - Text Progress Note Date: 11/10/23 Right foot diabetic wounds Patient seen and examined today sitting up. She is without any complaints at this time. No acute changes through the night. Objective General appearance: The patient is alert, oriented, appears in no acute distress. HET: Head is normocephalic and atraumatic. Neck: Supple. Abdomen: Soft, nondistended. Extremities: Left [id number]-[id number] amputation. Right foot with dressing clean dry and intact. Neurological: Alert and oriented. No focal deficits noted. Assessment and Plan Assessment: 1. Right toe diabetic ulcer 1 through 3 with eschar 2. Left ankle diabetic ulcer with eschar 3. History of ischemic right lower extremity status post [id number] amputation 4. Diabetes mellitus 5. Peripheral neuropathy 6. Peripheral arterial disease 7. History of atrial fibrillation 8. Hypertension 9. Chronic renal disease Plan: 1. Discussed with ID- doubt great toe will improve and recommending amputation. Continue local wound care. 2. Will discuss again with patient and family for possible intervention Sunday 3. Rest of medical management per primary medical team
[2023-11-11 07:09] LABS: Glucose,Whole Blood 72 mg/dL (70-110)
[2023-11-11] MEDS: NON FORMULARY DRUG (Dulaglutide [Trulicity] 0.75 MG/0.5 ML Each) SQ SCH (11:47)
[2023-11-11 12:06] LABS: Glucose,Whole Blood 167 mg/dL (70-110)
[2023-11-11 17:13] LABS: Glucose,Whole Blood 179 mg/dL (70-110)
[2023-11-11 20:03] LABS: Glucose,Whole Blood 237 mg/dL (70-110)
--- NOTE | 2023-11-11 23:59 | P.PN ---
Subjective Progress Note Date: 11/10/23 Patient is a 83-year-old female with a past medical history of diabetes type 2 insulin-dependent, atrial fibrillation on anticoagulation with Xarelto, hypertension, hyperlipidemia, osteoarthritis, peripheral vascular disease with history of left BKA and July 2023 followed by left AKA on 09/23/2023, recurrent urinary tract infections and other multiple medical problems presents to ER with complaints of right great toe infection, discoloration and ankle is getting larger in size. Patient was referred from wound care clinic. Otherwise denies any complaints of fever or chills. No chest pain or shortness of breath. No nausea vomiting abdominal pain or diarrhea. Denied dysuria or hematuria Foot x-ray showed no evidence of fracture. Severe degeneration changes throughout the joints of the foot. Soft tissue abnormality compatible with wound involving fourth digit no obvious osseous erosion or visualization is limited on some views. Possible subluxation of the first digit interphalangeal joint suggested on single view. Laboratory data showed WBC 11.4 hemoglobin 8.7 platelets 347 sodium 128 p otassium 4.1 chloride 96 bicarb is 22 BUN 51 and creatinine 2.33 and blood sugar 174 calcium 8.0, AST 27 ALT 14 alk phos 150 albumin 3.2 11/09/2023 Patient is seen in follow-up today currently sitting up in the chair with daughter at the bedside no acute overnight issues noted. Patient continues with local wound care along with antibiotics in the form of daptomycin and Zosyn with infectious disease following. Currently awaiting cultures to determine appropriate antibiotics. After further discussion family would like palliative services on discharge as patient is refusing any further surgical intervention and also requesting to be no code. Per vascular surgery, she is cleared for discharge once cleared by consultations. Infectious disease following and would like to wait until cultures have finalized. Patient is afebrile with no reports of chest pain or shortness of breath. Patient is tolerating diet with no reported nausea or vomiting. Continue with Accu-Cheks before meals and at bedtime and current insulin regimen and will adjust as needed. Plan is for patient to return home on discharge with daughters. Hemoglobin was noted to be 6.9 this morning and will order 1 unit of PRBC and also give a dose of IV Lasix post infusion. White count remains normal and platelets are within normal limits. 11/10/2023 Patient is currently resting in the bed. Awake alert and oriented x 3. No complaints of chest pain or shortness of breath. On room air. No nausea vomiting abdominal pain or diarrhea. No cough or sputum production. Patient is being continued on antibiotics in the form of daptomycin and Zosyn. ID and vascular surgery is on board. Laboratory test showed WBC 9.0 hemoglobin 8.6 and platelets 273 sodium 134 potassium 4.0 chloride 98 bicarb is 20.4 BUN 48.1 and creatinine 2.5 and blood sugar 66 and magnesium 1.7. Current medications reviewed. ID and vascular surgery is on board. Review of systems: Constitutional: No reports of fatigue, fever, or chills Cardiovascular: No reports of chest pain or palpitations Respiratory: No reports of shortness of breath or cough GI: No reports of nausea, vomiting, or diarrhea : No reports of dysuria or retention Neurovascular: reports of generalized weakness with some mild right foot pain All medications have been reviewed PHYSICAL EXAMINATION: Patient is sitting up in the chair, no acute distress, awake alert and oriented.. Well-developed, elderly appearing HEENT: Normocephalic. Neck is supple. Pupils reactive. Nostrils clear. Oral cavity is moist. Neck reveals no JVD, carotid bruits, or thyromegaly. CHEST EXAMINATION: Trachea is central. Symmetrical expansion. Lung natarajan clear to auscultation and percussion. CARDIAC: Normal S1, S2 with no gallops. No murmurs ABDOMEN: Soft. Bowel sounds normal. No organomegaly. No abdominal bruits. Extremities: Left AKA. Right great toe ulcer with gangrenous changes/discoloration and right ankle ulcer. No clubbing or cyanosis Neurologically awake, alert, oriented x3 with well-coordinated movements. No focal deficits noted Skin: No rash or skin lesions. Psychiatric: Cooperative. Non-suicidal Musculoskeletal: No joint swelling or deformity. Assessment: Right toe and right ankle/heel diabetic ulcer infection with discoloration and gangrenous changes. History of left AKA on 09/23/2023 Hyperglycemia is uncontrolled diabetes type 2 Diabetic peripheral neuropathy Peripheral vascular disease Chronic atrial fibrillation on anticoagulation with Xarelto Hypertension Anemia of chronic disease CKD stage IV with baseline creatinine around 1.5-2. DVT prophylaxis patient is already on Xarelto History of CVA/TIA Osteoarthritis GI prophylaxis No code Plan: Patient will be continued on antibiotics in the form of daptomycin and Zosyn. Vascular surgery was consulted and recommends continue local wound care as patient is refusing any further surgical intervention or amputation at this time. Infectious disease following and will continue on antibiotics and will discuss further regarding discharge antibiotics once cultures have finalized and showing clinical improvement Consult was placed for case management working on discharge planning as plan is to return home and will place a consult in the outpatient setting for palliative care. Patient wishes to be no code and again stresses the importance that she does not want any further surgical intervention. Patient was transfused with 1 unit of PRBC. Continue to monitor H&H. Home medications reviewed and resumed as appropriate Due to multiple complex medical issues, overall prognosis is guarded Objective - Vital Signs Vital signs: Vital Signs Temp 98.5 F 11/10/23 12:32 Pulse 70 11/10/23 12:32 Resp 14 11/10/23 12:32 BP 122/70 11/10/23 12:32 Pulse Ox 98 11/10/23 12:32 FiO2 Intake & Output 11/09/23 11/10/23 11/10/23 18:59 06:59 18:59 Intake Total 740 850 Balance 740 850 Weight 65.317 kg Intake: Oral 740 540 Blood Product 0 310 Rc As-1 Unit 0 310 [id number] Other: Voiding Method Toilet Toilet Toilet Bedside Commode Bedside Commode Bedside Commode # Voids 2 2 1 - Labs CBC & Chem 7: 11/10/23 05:29 11/10/23 05:29 Labs: Abnormal Lab Results - Last 24 Hours (Table) 11/09/23 11/09/23 11/09/23 Range/Units 14:03 17:00 20:01 RBC (4.10-5.20) X 10*6/uL Hgb (12.0-15.0) g/dL Hct (37.2-46.3) % RDW (11.5-14.5) % Immature Gran # (0.00-0.04) X 10*3/uL Eosinophils # (0.04-0.35) X 10*3/uL Sodium (135-145) mmol/L Carbon Dioxide (21.6-31.8) mmol/L Anion Gap (4.00-12.00) mmol/L BUN (9.0-27.0) mg/dL Creatinine (0.6-1.5) mg/dL Est GFR (CKD-EPI) (>=60) Glucose (70-110) mg/dL POC Glucose (mg/dL) 183 H 227 H (70-110) mg/dL Calcium (8.7-10.3) mg/dL Crossmatch See Detail 11/10/23 11/10/23 11/10/23 Range/Units 05:29 05:29 12:03 RBC 2.94 L (4.10-5.20) X 10*6/uL Hgb 8.6 L (12.0-15.0) g/dL Hct 26.7 L (37.2-46.3) % RDW 15.7 H (11.5-14.5) % Immature Gran # 0.06 H (0.00-0.04) X 10*3/uL Eosinophils # 0.54 H (0.04-0.35) X 10*3/uL Sodium 134 L (135-145) mmol/L Carbon Dioxide 20.4 L (21.6-31.8) mmol/L Anion Gap 15.60 H (4.00-12.00) mmol/L BUN 48.1 H (9.0-27.0) mg/dL Creatinine 2.5 H (0.6-1.5) mg/dL Est GFR (CKD-EPI) 19 L (>=60) Glucose 66 L (70-110) mg/dL POC Glucose (mg/dL) 139 H (70-110) mg/dL Calcium 8.1 L (8.7-10.3) mg/dL Crossmatch
--- NOTE | 2023-11-12 00:02 | P.PN ---
Subjective Progress Note Date: 11/11/23 Patient is a 83-year-old female with a past medical history of diabetes type 2 insulin-dependent, atrial fibrillation on anticoagulation with Xarelto, hypertension, hyperlipidemia, osteoarthritis, peripheral vascular disease with history of left BKA and July 2023 followed by left AKA on 09/23/2023, recurrent urinary tract infections and other multiple medical problems presents to ER with complaints of right great toe infection, discoloration and ankle is getting larger in size. Patient was referred from wound care clinic. Otherwise denies any complaints of fever or chills. No chest pain or shortness of breath. No nausea vomiting abdominal pain or diarrhea. Denied dysuria or hematuria Foot x-ray showed no evidence of fracture. Severe degeneration changes throughout the joints of the foot. Soft tissue abnormality compatible with wound involving fourth digit no obvious osseous erosion or visualization is limited on some views. Possible subluxation of the first digit interphalangeal joint suggested on single view. Laboratory data showed WBC 11.4 hemoglobin 8.7 platelets 347 sodium 128 p otassium 4.1 chloride 96 bicarb is 22 BUN 51 and creatinine 2.33 and blood sugar 174 calcium 8.0, AST 27 ALT 14 alk phos 150 albumin 3.2 11/09/2023 Patient is seen in follow-up today currently sitting up in the chair with daughter at the bedside no acute overnight issues noted. Patient continues with local wound care along with antibiotics in the form of daptomycin and Zosyn with infectious disease following. Currently awaiting cultures to determine appropriate antibiotics. After further discussion family would like palliative services on discharge as patient is refusing any further surgical intervention and also requesting to be no code. Per vascular surgery, she is cleared for discharge once cleared by consultations. Infectious disease following and would like to wait until cultures have finalized. Patient is afebrile with no reports of chest pain or shortness of breath. Patient is tolerating diet with no reported nausea or vomiting. Continue with Accu-Cheks before meals and at bedtime and current insulin regimen and will adjust as needed. Plan is for patient to return home on discharge with daughters. Hemoglobin was noted to be 6.9 this morning and will order 1 unit of PRBC and also give a dose of IV Lasix post infusion. White count remains normal and platelets are within normal limits. 11/10/2023 Patient is currently resting in the bed. Awake alert and oriented x 3. No complaints of chest pain or shortness of breath. On room air. No nausea vomiting abdominal pain or diarrhea. No cough or sputum production. Patient is being continued on antibiotics in the form of daptomycin and Zosyn. ID and vascular surgery is on board. Laboratory test showed WBC 9.0 hemoglobin 8.6 and platelets 273 sodium 134 potassium 4.0 chloride 98 bicarb is 20.4 BUN 48.1 and creatinine 2.5 and blood sugar 66 and magnesium 1.7. Current medications reviewed. ID and vascular surgery is on board. 11/11/2023 Patient is resting in the bed. Awake alert and oriented x 3. No complaints of chest pain or shortness of breath. Right foot pain is controlled. Continues to have gangrenous changes and discoloration of the great toe. Continued on wound care. Patient is on antibiotics daptomycin and Zosyn. Recent wound cultures growing from 24 Sep 2023 showed Pseudomonas, E. coli and MRSA. ID and vascular surgery is on board. Review of systems: Constitutional: No reports of fatigue, fever, or chills Cardiovascular: No reports of chest pain or palpitations Respiratory: No reports of shortness of breath or cough GI: No reports of nausea, vomiting, or diarrhea : No reports of dysuria or retention Neurovascular: reports of generalized weakness with some mild right foot pain All medications have been reviewed PHYSICAL EXAMINATION: Patient is sitting up in the chair, no acute distress, awake alert and oriented.. Well-developed, elderly appearing HEENT: Normocephalic. Neck is supple. Pupils reactive. Nostrils clear. Oral cavity is moist. Neck reveals no JVD, carotid bruits, or thyromegaly. CHEST EXAMINATION: Trachea is central. Symmetrical expansion. Lung natarajan clear to auscultation and percussion. CARDIAC: Normal S1, S2 with no gallops. No murmurs ABDOMEN: Soft. Bowel sounds normal. No organomegaly. No abdominal bruits. Extremities: Left AKA. Right great toe ulcer with gangrenous changes/discoloration and right ankle ulcer. No clubbing or cyanosis Neurologically awake, alert, oriented x3 with well-coordinated movements. No focal deficits noted Skin: No rash or skin lesions. Psychiatric: Cooperative. Non-suicidal Musculoskeletal: No joint swelling or deformity. Assessment: Right toe and right ankle/heel diabetic ulcer infection with discoloration and gangrenous changes. History of left AKA on 09/23/2023 Hyperglycemia is uncontrolled diabetes type 2 Diabetic peripheral neuropathy Peripheral vascular disease Chronic atrial fibrillation on anticoagulation with Xarelto Hypertension Anemia of chronic disease CKD stage IV with baseline creatinine around 1.5-2. DVT prophylaxis patient is already on Xarelto History of CVA/TIA Osteoarthritis GI prophylaxis No code Plan: Patient will be continued on antibiotics in the form of daptomycin and Zosyn. Vascular surgery was consulted and recommends continue local wound care as patient is refusing any further surgical intervention or amputation at this time. Infectious disease following and will continue on antibiotics and will discuss further regarding discharge antibiotics once cultures have finalized and showing clinical improvement Consult was placed for case management working on discharge planning as plan is to return home and will place a consult in the outpatient setting for palliative care. Patient wishes to be no code and again stresses the importance that she does not want any further surgical intervention. Patient was transfused with 1 unit of PRBC. Continue to monitor H&H. Home medications reviewed and resumed as appropriate Due to multiple complex medical issues, overall prognosis is guarded Objective - Vital Signs Vital signs: Vital Signs Temp 98.6 F 11/11/23 19:00 Pulse 73 11/11/23 19:00 Resp 16 11/11/23 19:00 BP 157/68 11/11/23 19:00 Pulse Ox 99 11/11/23 19:00 FiO2 Intake & Output 11/11/23 11/11/23 11/12/23 06:59 18:59 06:59 Output Total 1 700 Balance -1 -700 Output: Urine 700 Urine/Stool Mix 1 Other: Voiding Method Toilet Toilet Toilet Bedside Commode Bedside Commode External Catheter # Voids 900 1 # Bowel Movements 1 - Labs CBC & Chem 7: 11/10/23 05:29 11/10/23 05:29 Labs: Abnormal Lab Results - Last 24 Hours (Table) 11/11/23 11/11/23 11/11/23 Range/Units 12:05 17:11 20:02 POC Glucose (mg/dL) 167 H 179 H 237 H (70-110) mg/dL
[2023-11-12 06:53] LABS: Glucose,Whole Blood 75 mg/dL (70-110)
[2023-11-12 10:53] LABS: Blood Urea Nitrogen 54.5 mg/dL (9.0-27.0); Calcium 8.2 mg/dL (8.7-10.3); Carbon Dioxide 22.8 mmol/L (21.6-31.8); Chloride 96 mmol/L (96-109); Glucose 62 mg/dL (70-110); Sodium 132 mmol/L (135-145)
[2023-11-12 10:57] LABS: Basophils # (A) 0.03 X 10*3/uL (0.00-0.10); Basophils % (A) 0.3 %; Eosinophils % (A) 7.8 %; HCT 28.5 % (37.2-46.3); HGB 9.1 g/dL (12.0-15.0); Lymphocytes # (A) 2.28 X 10*3/uL (0.90-5.00); Lymphocytes % (A) 25.5 %; MCH 28.9 pg (27.0-32.0); MCHC 31.9 g/dL (32.0-37.0); MCV 90.5 FL (80.0-97.0); Mean Platelet Volume 9.6 FL (9.5-12.2); Monocytes # (A) 0.86 X 10*3/uL (0.20-1.00); Monocytes % (A) 9.6 %; NRBC Per 100 WBC 0 X 10*3/uL (0.00-0.01); Neutrophils # (A) 5.02 X 10*3/uL (1.80-7.70); Neutrophils % (A) 56.4 %; Platelet Count 312 X 10*3/uL (140-440); RBC 3.15 X 10*6/uL (4.10-5.20); RDW 15.8 % (11.5-14.5); WBC 8.93 X 10*3/uL (4.50-10.00)
[2023-11-12 11:56] LABS: Glucose,Whole Blood 176 mg/dL (70-110)
--- NOTE | 2023-11-12 13:49 | P.PN ---
Subjective Progress Note Date: 11/12/23 Principal diagnosis: Right foot diabetic wounds Patient seen and examined today as a follow-up. She has no acute changes. Denies any pain to her right foot. She has been afebrile. She continues to state that she does not want any amputations. Patient continues to have impai red kidney function. Objective - Vital Signs Vital signs: Vital Signs Temp 98.3 F 11/12/23 06:54 Pulse 73 11/12/23 06:54 Resp 16 11/12/23 06:54 BP 159/69 11/12/23 06:54 Pulse Ox 99 11/12/23 06:54 FiO2 Intake & Output 11/11/23 11/12/23 11/12/23 18:59 06:59 18:59 Intake Total 370 Output Total 700 800 Balance -700 -430 Intake: Intake, IV Titration 250 Amount DAPTOmycin 500 mg In 50 Sodium Chloride 0.9% 50 ml @ 100 mls/hr IVPB Q48H [facility] Rx#:[id number] Piperacillin-Tazobactam 3 200 .375 gm In Sodium Chloride 0.9% 100 ml @ 25 mls/hr IVPB Q12H [facility] Rx# :[id number] Oral 120 Output: Urine 700 800 Other: Voiding Method Toilet Toilet Bedside Commode External Catheter # Voids 1 1 # Bowel Movements 1 - Exam General appearance: The patient is alert, oriented, appears in no acute distress. HET: Head is normocephalic and atraumatic. Neck: Supple. Abdomen: Soft, nondistended. Extremities: Left lnvfm-thg-lnjh amputation. Right foot with dressing clean dry and intact. Neurological: Alert and oriented. No focal deficits noted. - Labs CBC & Chem 7: 11/12/23 06:51 11/12/23 06:51 Labs: Abnormal Lab Results - Last 24 Hours (Table) 11/11/23 11/11/23 11/11/23 Range/Units 12:05 17:11 20:02 POC Glucose (mg/dL) 167 H 179 H 237 H (70-110) mg/dL Assessment and Plan Assessment: 1. Right toe diabetic ulcer 1 through 3 with eschar 2. Left ankle diabetic ulcer with eschar 3. History of ischemic right lower extremity status post [id number] amputation 4. Diabetes mellitus 5. Peripheral neuropathy 6. Peripheral arterial disease 7. History of atrial fibrillation 8. Hypertension 9. Chronic renal disease Plan: 1. No plans on any surgical intervention. Discussed with patient recommendations from infectious disease is toe amputation. Patient is still not interested in moving forward with any amputations. 2. Possible outpatient angiogram, this can be discussed at next follow-up appointment with Dr. Don 3. Rest of medical management per primary medical team 4. Continue local wound care and antibiotics per recommendations from infectious disease Thank you for this consultation, patient is cleared from vascular surgery for discharge. The impression and plan of care has been dictated as directed. Dr. Lopez I performed a history and examination of this patient, discussed the same with the dictator. I agree with the dictator's note ,documented as a scribe. Any additional findings or plans will be noted.
--- NOTE | 2023-11-12 15:54 | P.PN ---
Subjective Progress Note Date: 11/12/23 Patient is a 83-year-old female with a past medical history of diabetes type 2 insulin-dependent, atrial fibrillation on anticoagulation with Xarelto, hypertension, hyperlipidemia, osteoarthritis, peripheral vascular disease with history of left BKA and July 2023 followed by left AKA on 09/23/2023, recurrent urinary tract infections and other multiple medical problems presents to ER with complaints of right great toe infection, discoloration and ankle is getting larger in size. Patient was referred from wound care clinic. Otherwise denies any complaints of fever or chills. No chest pain or shortness of breath. No nausea vomiting abdominal pain or diarrhea. Denied dysuria or hematuria Foot x-ray showed no evidence of fracture. Severe degeneration changes throughout the joints of the foot. Soft tissue abnormality compatible with wound involving fourth digit no obvious osseous erosion or visualization is limited on some views. Possible subluxation of the first digit interphalangeal joint suggested on single view. Laboratory data showed WBC 11.4 hemoglobin 8.7 platelets 347 sodium 128 potassium 4.1 chloride 96 bicarb is 22 BUN 51 and creatinine 2.33 and blood sugar 174 calcium 8.0, AST 27 ALT 14 alk phos 150 albumin 3.2 11/09/2023 Patient is seen in follow-up today currently sitting up in the chair with daughter at the bedside no acute overnight issues noted. Patient continues with local wound care along with antibiotics in the form of daptomycin and Zosyn with infectious disease following. Currently awaiting cultures to determine appropriate antibiotics. After further discussion family would like palliative services on discharge as patient is refusing any further surgical intervention and also requesting to be no code. Per vascular surgery, she is cleared for discharge once cleared by consultations. Infectious disease following and would like to wait until cultures have finalized. Patient is afebrile with no reports of chest pain or shortness of breath. Patient is tolerating diet with no reported nausea or vomiting. Continue with Accu-Cheks before meals and at bedtime and current insulin regimen and will adjust as needed. Plan is for patient to return home on discharge with daughters. Hemoglobin was noted to be 6.9 this morning and will order 1 unit of PRBC and also give a dose of IV Lasix post infusion. White count remains normal and platelets are within normal limits. 11/10/2023 Patient is currently resting in the bed. Awake alert and oriented x 3. No complaints of chest pain or shortness of breath. On room air. No nausea vomiting abdominal pain or diarrhea. No cough or sputum production. Patient is being continued on antibiotics in the form of daptomycin and Zosyn. ID and vascular surgery is on board. Laboratory test showed WBC 9.0 hemoglobin 8.6 and platelets 273 sodium 134 potassium 4.0 chloride 98 bicarb is 20.4 BUN 48.1 and creatinine 2.5 and blood sugar 66 and magnesium 1.7. Current medications reviewed. ID and vascular surgery is on board. 11/11/2023 Patient is resting in the bed. Awake alert and oriented x 3. No complaints of chest pain or shortness of breath. Right foot pain is controlled. Continues to have gangrenous changes and discoloration of the great toe. Continued on wound care. Patient is on antibiotics daptomycin and Zosyn. Recent wound cultures growing from 24 Sep 2023 showed Pseudomonas, E. coli and MRSA. ID and vascular surgery is on board. 11/12/2023 Patient is seen in follow-up this morning reports to feeling well anticipating going home. Patient continues to have significant gangrenous changes with discoloration to the right foot and continues to be adamant about no further emely gical intervention. Vascular surgery has evaluated the patient and patient does not want any further surgery. Infectious disease following and patient is maintained on antibiotics and will continue for now. Patient needs surgical intervention or will likely result in infection with sepsis patient and . Will need to discuss further with family members regarding treatment plan as well as discharge planning. Family would like to pursue palliative care on discharge although this infection is far more advanced than just palliative care. Review of systems: Constitutional: No reports of fatigue, fever, or chills Cardiovascular: No reports of chest pain or palpitations Respiratory: No reports of shortness of breath or cough GI: No reports of nausea, vomiting, or diarrhea : No reports of dysuria or retention Neurovascular: reports of generalized weakness with some mild right foot di scomfort which All medications have been reviewed PHYSICAL EXAMINATION: Patient is sitting up in the chair, no acute distress, awake alert and oriented.. Well-developed, elderly appearing HEENT: Normocephalic. Neck is supple. Pupils reactive. Nostrils clear. Oral cavity is moist. Neck reveals no JVD, carotid bruits, or thyromegaly. CHEST EXAMINATION: Trachea is central. Symmetrical expansion. Lung natarajan clear to auscultation and percussion. CARDIAC: Normal S1, S2 with no gallops. No murmurs ABDOMEN: Soft. Bowel sounds normal. No organomegaly. No abdominal bruits. Extremities: Left AKA. Right great toe ulcer with gangrenous changes/discoloration and right ankle ulcer. No clubbing or cyanosis Neurologically awake, alert, oriented x3 with well-coordinated movements. No focal deficits noted Skin: No rash or skin lesions. Psychiatric: Cooperative. Non-suicidal Musculoskeletal: No joint swelling or deformity. Assessment: Right toe and right ankle/heel diabetic ulcer infection with discoloration and gangrenous changes. History of left AKA on 09/23/2023 Hyperglycemia is uncontrolled diabetes type 2 Diabetic peripheral neuropathy Peripheral vascular disease Chronic atrial fibrillation on anticoagulation with Xarelto Hypertension Anemia of chronic disease CKD stage IV with baseline creatinine around 1.5-2. DVT prophylaxis patient is already on Xarelto History of CVA/TIA Osteoarthritis GI prophylaxis No code Plan: Patient will be continued on antibiotics in the form of daptomycin and Zosyn. Vascular surgery was consulted and recommends continue local wound care as patient is refusing any further surgical intervention or amputation at this time. Infectious disease following and will continue on antibiotics and will discuss further regarding treatment plan moving forward. Antibiotics will continue for now although is not curative and need surgical intervention. To discuss further with family regarding treatment plan. Consult was placed for case management working on discharge planning as plan is to return home and will place a consult in the outpatient setting for palliative care. Patient wishes to be no code and again stresses the importance that she does not want any further surgical intervention. Patient was transfused with 1 unit of PRBC. Continue to monitor H&H. Hemoglobin is stable and we will follow-up on repeat labs Home medications reviewed and resumed as appropriate Due to multiple complex medical issues, overall prognosis is guarded The impression and plan of care has been dictated by Mildred Swift Nurse Practitioner as directed. Contreras MD I have performed a history and examination and MDM of this patient, discussed the same with the dictator, and agree with the dictator's assessment and plan as written ,documented as a scribe. Based on total visit time, I have performed more than 50% of the visit. Objective - Vital Signs Vital signs: Vital Signs Temp 98.6 F 11/12/23 12:48 Pulse 69 11/12/23 12:48 Resp 16 11/12/23 12:48 BP 137/61 11/12/23 12:48 Pulse Ox 99 11/12/23 12:48 FiO2 Intake & Output 11/11/23 11/12/23 11/12/23 18:59 06:59 18:59 Intake Total 370 Output Total 700 800 500 Balance -700 -430 -500 Intake: Intake, IV Titration 250 Amount DAPTOmycin 500 mg In 50 Sodium Chloride 0.9% 50 ml @ 100 mls/hr IVPB Q48H [facility] Rx#:[id number] Piperacillin-Tazobactam 3 200 .375 gm In Sodium Chloride 0.9% 100 ml @ 25 mls/hr IVPB Q12H [facility] Rx# :[id number] Oral 120 Output: Urine 700 800 500 Other: Voiding Method Toilet Toilet Bedside Commode Bedside Commode External Catheter # Voids 1 1 # Bowel Movements 1 1 - Labs CBC & Chem 7: 11/12/23 06:51 11/12/23 06:51 Labs: Abnormal Lab Results - Last 24 Hours (Table) 11/11/23 11/11/23 11/12/23 Range/Units 17:11 20:02 06:51 RBC 3.15 L (4.10-5.20) X 10*6/uL Hgb 9.1 L (12.0-15.0) g/dL Hct 28.5 L (37.2-46.3) % MCHC 31.9 L (32.0-37.0) g/dL RDW 15.8 H (11.5-14.5) % Eosinophils # 0.70 H (0.04-0.35) X 10*3/uL Sodium (135-145) mmol/L Anion Gap (4.00-12.00) mmol/L BUN (9.0-27.0) mg/dL Creatinine (0.6-1.5) mg/dL Est GFR (CKD-EPI) (>=60) BUN/Creatinine Ratio (12.00-20.00) Ratio Glucose (70-110) mg/dL POC Glucose (mg/dL) 179 H 237 H (70-110) mg/dL Calcium (8.7-10.3) mg/dL 11/12/23 11/12/23 Range/Units 06:51 11:55 RBC (4.10-5.20) X 10*6/uL Hgb (12.0-15.0) g/dL Hct (37.2-46.3) % MCHC (32.0-37.0) g/dL RDW (11.5-14.5) % Eosinophils # (0.04-0.35) X 10*3/uL Sodium 132 L (135-145) mmol/L Anion Gap 13.20 H (4.00-12.00) mmol/L BUN 54.5 H (9.0-27.0) mg/dL Creatinine 2.5 H (0.6-1.5) mg/dL Est GFR (CKD-EPI) 19 L (>=60) BUN/Creatinine Ratio 21.80 H (12.00-20.00) Ratio Glucose 62 L (70-110) mg/dL POC Glucose (mg/dL) 176 H (70-110) mg/dL Calcium 8.2 L (8.7-10.3) mg/dL
[2023-11-12 17:02] LABS: Glucose,Whole Blood 159 mg/dL (70-110)
--- NOTE | 2023-11-12 18:21 | P.PN ---
Subjective Progress Note Date: 11/11/23 Principal diagnosis: Reason for follow-up is right big toe gangrene diabetic foot infection Patient is a 83-year-old female with a past medical history significant for atrial fibrillation diabetes mellitus hypertension hyperlipidemia CVA TIA patient did have a history of left foot diabetic foot infection requiring initial transmetatarsal amputation followed by left BKA and afterwards the patient did have MARII in September 2023, recently has been dealing with the wound on the dorsum aspect of the right big toe which has been debrided and the wound care now presenting with a right big toe gangrene. On today's evaluation that is 11/11/2023, the patient continues to be afebrile, the patient is on room air and breathing comfortably, the Pt denies having any chest pain or cough, the patient denies having any abdominal pain no vomiting or any diarrhea, patient denies any worsening pain to the right foot wound. No lab draw today Objective - Vital Signs Vital signs: Vital Signs Temp 98.2 F 11/11/23 07:10 Pulse 57 L 11/11/23 08:45 Resp 16 11/11/23 08:45 BP 153/55 11/11/23 07:10 Pulse Ox 98 11/11/23 07:10 FiO2 Intake & Output 11/10/23 11/11/23 11/11/23 18:59 06:59 18:59 Output Total 1 Balance -1 Output: Urine/Stool Mix 1 Other: Voiding Method Toilet Toilet Toilet Bedside Commode Bedside Commode Bedside Commode # Voids 1 900 1 # Bowel Movements 1 1 - Exam GENERAL DESCRIPTION: An elderly female lying in bed in no distress RESPIRATORY SYSTEM: Unlabored breathing , decreased breath sounds at bases HEART: S1 S2 regular rate and rhythm , ABDOMEN: Soft , no tenderness EXTREMITIES: Right foot is currently dressed, no drainage dressing was just changed per patient has it was not removed - Labs CBC & Chem 7: 11/12/23 06:51 11/12/23 06:51 Labs: Abnormal Lab Results - Last 24 Hours (Table) 11/10/23 11/10/23 11/11/23 Range/Units 17:09 20:13 12:05 POC Glucose (mg/dL) 177 H 187 H 167 H (70-110) mg/dL Assessment and Plan (1) Diabetic foot ulcer Current Visit: Yes Status: Acute Code(s): E11.621 - TYPE 2 DIABETES MELLITUS WITH FOOT ULCER; L97.509 - NON-PRESSURE CHRONIC ULCER OTH PRT UNSP FOOT W UNSP SEVERITY SNOMED Code(s): 275602323 (2) Gangrene of toe of right foot Current Visit: Yes Status: Acute Code(s): I96 - GANGRENE, NOT ELSEWHERE CLASSIFIED SNOMED Code(s): 03561699845270627 Plan: 1patient with extensive right big toe diabetic foot infection concerning for gangrene with widening to the right big toe and right to the right second and third toe in this patient who did have a history of PAD and ended up Losing her left lower extremity now with evidence of significant infection patient benefit from vascular workup and possible amputation of the right big toe as clinically doubt it will help with the antibiotic alone, patient has been evaluated by vascular surgery and apparently family has refused amputation they are recommending possible angiogram as an outpatient because of her elevated creatinine 2patient local culture currently growing Pseudomonas and MRSA 3patient is covered with with the Zosyn and daptomycin and monitor clinical course closely Dictation was produced using [employer] dictation software. please excuse any grammatical, word or spelling errors. Time with Patient: Less than 30
--- NOTE | 2023-11-12 18:22 | P.PN ---
Subjective Progress Note Date: 11/12/23 Principal diagnosis: Reason for follow-up is right big toe gangrene diabetic foot infection Patient is a 83-year-old female with a past medical history significant for atrial fibrillation diabetes mellitus hypertension hyperlipidemia CVA TIA patient did have a history of left foot diabetic foot infection requiring initial transmetatarsal amputation followed by left BKA and afterwards the patient did have MARII in September 2023, recently has been dealing with the wound on the dorsum aspect of the right big toe which has been debrided and the wound care now presenting with a right big toe gangrene. On today's evaluation that is 11/12/2023, Patient is afebrile patient is currently on room air and denies having any shortness of breath, the patient denies any chest pain or cough, the patient denies any nausea vomiting did not have any abdominal pain and no diarrhea, patient denies pain to the right second toe wound mention feeling better wants to go home. Patient white count is 8.93, creatinine is 2.5 cultures done in the outpatient setting positive for E. coli MRSA and Pseudomonas Objective - Vital Signs Vital signs: Vital Signs Temp 98.6 F 11/12/23 12:48 Pulse 69 11/12/23 12:48 Resp 16 11/12/23 12:48 BP 137/61 11/12/23 12:48 Pulse Ox 99 11/12/23 12:48 FiO2 Intake & Output 11/11/23 11/12/23 11/12/23 18:59 06:59 18:59 Intake Total 370 Output Total 700 800 500 Balance -700 -430 -500 Intake: Intake, IV Titration 250 Amount DAPTOmycin 500 mg In 50 Sodium Chloride 0.9% 50 ml @ 100 mls/hr IVPB Q48H [facility] Rx#:[id number] Piperacillin-Tazobactam 3 200 .375 gm In Sodium Chloride 0.9% 100 ml @ 25 mls/hr IVPB Q12H [facility] Rx# :[id number] Oral 120 Output: Urine 700 800 500 Other: Voiding Method Toilet Toilet Bedside Commode Bedside Commode External Catheter # Voids 1 1 # Bowel Movements 1 1 - Exam GENERAL DESCRIPTION: An elderly female lying in bed in no distress RESPIRATORY SYSTEM: Unlabored breathing , decreased breath sounds at bases HEART: S1 S2 regular rate and rhythm , ABDOMEN: Soft , no tenderness EXTREMITIES: Right second toe did have necrotic changes with a wound on the dorsum aspect also with necrotic changes to the second and third toe - Labs CBC & Chem 7: 11/12/23 06:51 11/12/23 06:51 Labs: Abnormal Lab Results - Last 24 Hours (Table) 11/11/23 11/11/23 11/12/23 Range/Units 17:11 20:02 06:51 RBC 3.15 L (4.10-5.20) X 10*6/uL Hgb 9.1 L (12.0-15.0) g/dL Hct 28.5 L (37.2-46.3) % MCHC 31.9 L (32.0-37.0) g/dL RDW 15.8 H (11.5-14.5) % Eosinophils # 0.70 H (0.04-0.35) X 10*3/uL Sodium (135-145) mmol/L Anion Gap (4.00-12.00) mmol/L BUN (9.0-27.0) mg/dL Creatinine (0.6-1.5) mg/dL Est GFR (CKD-EPI) (>=60) BUN/Creatinine Ratio (12.00-20.00) Ratio Glucose (70-110) mg/dL POC Glucose (mg/dL) 179 H 237 H (70-110) mg/dL Calcium (8.7-10.3) mg/dL 11/12/23 11/12/23 Range/Units 06:51 11:55 RBC (4.10-5.20) X 10*6/uL Hgb (12.0-15.0) g/dL Hct (37.2-46.3) % MCHC (32.0-37.0) g/dL RDW (11.5-14.5) % Eosinophils # (0.04-0.35) X 10*3/uL Sodium 132 L (135-145) mmol/L Anion Gap 13.20 H (4.00-12.00) mmol/L BUN 54.5 H (9.0-27.0) mg/dL Creatinine 2.5 H (0.6-1.5) mg/dL Est GFR (CKD-EPI) 19 L (>=60) BUN/Creatinine Ratio 21.80 H (12.00-20.00) Ratio Glucose 62 L (70-110) mg/dL POC Glucose (mg/dL) 176 H (70-110) mg/dL Calcium 8.2 L (8.7-10.3) mg/dL Assessment and Plan (1) Diabetic foot ulcer Current Visit: Yes Status: Acute Code(s): E11.621 - TYPE 2 DIABETES MELLITUS WITH FOOT ULCER; L97.509 - NON-PRESSURE CHRONIC ULCER OTH PRT UNSP FOOT W UNSP SEVERITY SNOMED Code(s): 714469034 (2) Gangrene of toe of right foot Current Visit: Yes Status: Acute Code(s): I96 - GANGRENE, NOT ELSEWHERE CLASSIFIED SNOMED Code(s): 73005443123939767 Plan: 1patient with extensive right big toe diabetic foot infection concerning for ga ngrene with widening to the right big toe and right to the right second and third toe in this patient who did have a history of PAD and ended up Losing her left lower extremity now with evidence of significant infection patient benefit from vascular workup and possible amputation of the right big toe as clinically doubt it will help with the antibiotic alone, patient has been evaluated by vascular surgery and apparently family has refused amputation they are recommending possible angiogram as an outpatient because of her elevated creatinine 2patient local culture currently growing Pseudomonas and MRSA 3patient continue to refuse any amputation however keeping in mind her extensive necrotic changes clinically doubt antibiotic alone will help heal this infection we did discuss further with the family for now continue with the Zosyn and daptomycin and monitor clinical course closely Dictation was produced using [employer] dictation software. please excuse any grammatical, word or spelling errors. Time with Patient: Less than 30
[2023-11-12 20:21] LABS: Glucose,Whole Blood 228 mg/dL (70-110)
[2023-11-13 07:04] LABS: Glucose,Whole Blood 93 mg/dL (70-110)
[2023-11-13 11:01] LABS: RBC 3.18 m/uL (3.80-5.40); WBC 8.6 k/uL (3.8-10.6)
[2023-11-13 11:02] LABS: Basophils % (A) 0 %; Eosinophils # (A) 0.5 k/uL (0-0.7); Eosinophils % (A) 6 %; HCT 29.9 % (34.0-46.0); HGB 9.2 gm/dL (11.4-16.0); Hypochromasia Slight; Lymphocytes # (A) 1.5 k/uL (1.0-4.8); Lymphocytes % (A) 17 %; MCH 29.1 pg (25.0-35.0); MCHC 30.9 g/dL (31.0-37.0); MCV 93.9 fL (80.0-100.0); Mean Platelet Volume 7.4; Monocytes # (A) 0.5 k/uL (0-1.0); Monocytes % (A) 6 %; Neutrophils # (A) 5.9 k/uL (1.3-7.7); Neutrophils % (A) 69 %; Platelet Count 287 k/uL (150-450); RDW 15.4 % (11.5-15.5)
[2023-11-13 11:38] LABS: African American GFR (CKD) 21 (>60 ml/min/1.73 sqM); Anion Gap 8 mmol/L; Blood Urea Nitrogen 61 mg/dL (7-17); Calcium 8.2 mg/dL (8.4-10.2); Carbon Dioxide 22 mmol/L (22-30); Chloride 100 mmol/L (98-107); Glucose 135 mg/dL (74-99); Non-African American GFR(CKD) 18 (>60 ml/min/1.73 sqM); Potassium 3.8 mmol/L (3.5-5.1); Sodium 130 mmol/L (137-145)
[2023-11-13 12:06] LABS: Glucose,Whole Blood 126 mg/dL (70-110)
--- NOTE | 2023-11-13 14:49 | P.PN ---
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 Patient was referred from wound care clinic. Otherwise denies any complaints of fever or chills. No chest pain or shortness of breath. No nausea vomiting abdominal pain or diarrhea. Denied dysuria or hematuria Foot x-ray showed no evidence of fracture. Severe degeneration changes throughout the joints of the foot. Soft tissue abnormality compatible with wound involving fourth digit no obvious osseous erosion or visualization is limited on some views. Possible subluxation of the first digit interphalangeal joint suggested on single view. Laboratory data showed WBC 11.4 hemoglobin 8.7 platelets 347 sodium 128 potassium 4.1 chloride 96 bicarb is 22 BUN 51 and creatinine 2.33 and blood sugar 174 calcium 8.0, AST 27 ALT 14 alk phos 150 albumin 3.2 11/09/2023 Patient is seen in follow-up today currently sitting up in the chair with daughter at the bedside no acute overnight issues noted. Patient continues with local wound care along with antibiotics in the form of daptomycin and Zosyn with infectious disease following. Currently awaiting cultures to determine appropriate antibiotics. After further discussion family would like palliative services on discharge as patient is refusing any further surgical intervention and also requesting to be no code. Per vascular surgery, she is cleared for discharge once cleared by consultations. Infectious disease following and would like to wait until cultures have finalized. Patient is afebrile with no reports of chest pain or shortness of breath. Patient is tolerating diet with no reported nausea or vomiting. Continue with Accu-Cheks before meals and at bedtime and current insulin regimen and will adjust as needed. Plan is for patient to return home on discharge with daughters. Hemoglobin was noted to be 6.9 this morning and will order 1 unit of PRBC and also give a dose of IV Lasix post infusion. White count remains normal and platelets are within normal limits. 11/10/2023 Patient is currently resting in the bed. Awake alert and oriented x 3. No complaints of chest pain or shortness of breath. On room air. No nausea vomiting abdominal pain or diarrhea. No cough or sputum production. Patient is being continued on antibiotics in the form of daptomycin and Zosyn. ID and vascular surgery is on board. Laboratory test showed WBC 9.0 hemoglobin 8.6 and platelets 273 sodium 134 potassium 4.0 chloride 98 bicarb is 20.4 BUN 48.1 and creatinine 2.5 and blood sugar 66 and magnesium 1.7. Current medications reviewed. ID and vascular surgery is on board. 11/11/2023 Patient is resting in the bed. Awake alert and oriented x 3. No complaints of chest pain or shortness of breath. Right foot pain is controlled. Continues to have gangrenous changes and discoloration of the great toe. Continued on wound care. Patient is on antibiotics daptomycin and Zosyn. Recent wound cultures growing from 24 Sep 2023 showed Pseudomonas, E. coli and MRSA. ID and vascular surgery is on board. 11/12/2023 Patient is seen in follow-up this morning reports to feeling well anticipating going home. Patient continues to have significant gangrenous changes with discoloration to the right foot and continues to be adamant about no further eemly gical intervention. Vascular surgery has evaluated the patient and patient does not want any further surgery. Infectious disease following and patient is maintained on antibiotics and will continue for now. Patient needs surgical intervention or will likely result in infection with sepsis patient and . Will need to discuss further with family members regarding treatment plan as well as discharge planning. Family would like to pursue palliative care on discharge although this infection is far more advanced than just palliative care. 11/13/2023 Patient is seen in follow-up today has been evaluated and reevaluated by vascular surgery continues to be adamant she does not want any further surgical intervention and continues on antibiotics. Infectious disease following and discuss further with family regarding treatment plan moving forward. Patient is maintained on antibiotics in the form of daptomycin and Zosyn and will continue for now. Will need to discuss further if patient will continue on antibiotic therapy going home and outpatient follow-up with vascular surgery. Continue monitoring Accu-Cheks and continue to treat with sliding scale. Hemoglobin is stable and kidney functions remain elevated although chronic and is stable. Palliative care consult was placed for outpatient. Review of systems: Constitutional: No reports of fatigue, fever, or chills Cardiovascular: No reports of chest pain or palpitations Respiratory: No reports of shortness of breath or cough GI: No reports of nausea, vomiting, or diarrhea : No reports of dysuria or retention Neurovascular: reports of generalized weakness with no right foot pain All medications have been reviewed PHYSICAL EXAMINATION: Patient is sitting up in the bed, no acute distress, awake alert and oriented.. Well-developed, elderly appearing HEENT: Normocephalic. Neck is supple. Pupils reactive. Nostrils clear. Oral cavity is moist. Neck reveals no JVD, carotid bruits, or thyromegaly. CHEST EXAMINATION: Trachea is central. Symmetrical expansion. Lung natarajan clear to auscultation and percussion. CARDIAC: Normal S1, S2 with no gallops. No murmurs ABDOMEN: Soft. Bowel sounds normal. No organomegaly. No abdominal bruits. Extremities: Left AKA. Right great toe ulcer with gangrenous changes/discol oration and right ankle ulcer. No clubbing or cyanosis Neurologically awake, alert, oriented x3 with well-coordinated movements. No focal deficits noted Skin: No rash or skin lesions. Psychiatric: Cooperative. Non-suicidal Musculoskeletal: No joint swelling or deformity. Assessment: Right toe and right ankle/heel diabetic ulcer infection with discoloration and gangrenous changes. Refusing any further surgical intervention and has been evaluated by vascular surgery History of left PUSHPA on 09/23/2023 Hyperglycemia is uncontrolled diabetes type 2 Diabetic peripheral neuropathy Peripheral vascular disease Chronic atrial fibrillation on anticoagulation with Xarelto Hypertension Anemia of chronic disease CKD stage IV with baseline creatinine around 1.5-2. DVT prophylaxis patient is already on Xarelto History of CVA/TIA Osteoarthritis GI prophylaxis No code Plan: Patient will be continued on antibiotics in the form of daptomycin and Zosyn. Vascular surgery was consulted and recommends continue local wound care as patient is refusing any further surgical intervention or amputation at this time. Patient to follow-up with vascular surgery outpatient. Infectious disease following and will continue on antibiotics and will discuss further regarding treatment plan moving forward. Antibiotics will continue for now although is not curative and needs surgical intervention. To discuss further with family regarding treatment plan. Patient remains adamant today she is receiving no further surgical intervention. Consult was placed for case management working on discharge planning as plan is to return home and will place a consult in the outpatient setting for palliative care. Patient wishes to be no code and again stresses the importance that she does not want any further surgical intervention. Patient was transfused with 1 unit of PRBC. Continue to monitor H&H. Hemoglobin is stable above 9 with no active bleeding noted Home medications reviewed and resumed as appropriate Due to multiple complex medical issues, overall prognosis is guarded Possible discharge planning in the next 24 hours. The impression and plan of care has been dictated by Mildred Swift, Nurse Practitioner as directed. Dr. Jakob MD I have performed a history and examination and MDM of this patient, discussed the same with the dictator, and agree with the dictator's assessment and plan as written ,documented as a scribe. Based on total visit time, I have performed more than 50% of the visit. Objective - Vital Signs Vital signs: Vital Signs Temp 98.1 F 11/13/23 07:05 Pulse 66 11/13/23 07:05 Resp 16 11/13/23 07:05 BP 146/72 11/13/23 07:05 Pulse Ox 100 11/13/23 07:05 FiO2 Intake & Output 11/12/23 11/13/23 11/13/23 18:59 06:59 18:59 Output Total 500 600 Balance -500 -600 Output: Urine 500 600 Other: Voiding Method Bedside Commode # Voids 1 1 # Bowel Movements 1 - Labs CBC & Chem 7: 11/13/23 10:27 11/13/23 10:27 Labs: Abnormal Lab Results - Last 24 Hours (Table) 11/12/23 11/12/23 11/12/23 Range/Units 06:51 06:51 11:55 RBC 3.15 L (4.10-5.20) X 10*6/uL Hgb 9.1 L (12.0-15.0) g/dL Hct 28.5 L (37.2-46.3) % MCHC 31.9 L (32.0-37.0) g/dL RDW 15.8 H (11.5-14.5) % Eosinophils # 0.70 H (0.04-0.35) X 10*3/uL Sodium 132 L (135-145) mmol/L Anion Gap 13.20 H (4.00-12.00) mmol/L BUN 54.5 H (9.0-27.0) mg/dL Creatinine 2.5 H (0.6-1.5) mg/dL Est GFR (CKD-EPI) 19 L (>=60) BUN/Creatinine Ratio 21.80 H (12.00-20.00) Ratio Glucose 62 L (70-110) mg/dL POC Glucose (mg/dL) 176 H (70-110) mg/dL Calcium 8.2 L (8.7-10.3) mg/dL 11/12/23 11/12/23 Range/Units 17:00 20:17 RBC (4.10-5.20) X 10*6/uL Hgb (12.0-15.0) g/dL Hct (37.2-46.3) % MCHC (32.0-37.0) g/dL RDW (11.5-14.5) % Eosinophils # (0.04-0.35) X 10*3/uL Sodium (135-145) mmol/L Anion Gap (4.00-12.00) mmol/L BUN (9.0-27.0) mg/dL Creatinine (0.6-1.5) mg/dL Est GFR (CKD-EPI) (>=60) BUN/Creatinine Ratio (12.00-20.00) Ratio Glucose (70-110) mg/dL POC Glucose (mg/dL) 159 H 228 H (70-110) mg/dL Calcium (8.7-10.3) mg/dL
[2023-11-13 17:11] LABS: Glucose,Whole Blood 204 mg/dL (70-110)
--- NOTE | 2023-11-13 17:12 | P.PN ---
Subjective Progress Note Date: 11/13/23 Principal diagnosis: Reason for follow-up is right big toe gangrene diabetic foot infection Patient is a 83-year-old female with a past medical history significant for atrial fibrillation diabetes mellitus hypertension hyperlipidemia CVA TIA patient did have a history of left foot diabetic foot infection requiring initial transmetatarsal amputation followed by left BKA and afterwards the patient did have MARII in September 2023, recently has been dealing with the wound on the dorsum aspect of the right big toe which has been debrided and the wound care now presenting with a right big toe gangrene. On today's evaluation that is 11/13/2023, patient has been afebrile, patient is breathing comfortably and is currently on room air, patient denies having any significant cough no chest pain shortness of breath, patient denies nausea vomiting or diarrhea and no abdominal pain and denies any pain to the right foot toe wound. Patient white count is 8.6, creatinine is 2.40 cultures obtained outpatient setting did grow E. coli MRSA and Pseudomonas Objective - Vital Signs Vital signs: Vital Signs Temp 98.1 F 11/13/23 12:49 Pulse 57 L 11/13/23 12:49 Resp 16 11/13/23 12:49 BP 163/65 11/13/23 12:49 Pulse Ox 99 11/13/23 12:49 FiO2 Intake & Output 11/12/23 11/13/23 11/13/23 18:59 06:59 18:59 Output Total 500 600 Balance -500 -600 Weight 65.317 kg Output: Urine 500 600 Other: Voiding Method Bedside Commode # Voids 1 1 # Bowel Movements 1 - Exam GENERAL DESCRIPTION: An elderly female lying in bed in no distress RESPIRATORY SYSTEM: Unlabored breathing , decreased breath sounds at bases HEART: S1 S2 regular rate and rhythm , ABDOMEN: Soft , no tenderness EXTREMITIES: Right second toe did have necrotic changes with a wound on the dorsum aspect also with necrotic changes to the second and third toe - Labs CBC & Chem 7: 11/13/23 10:27 11/13/23 10:27 Labs: Abnormal Lab Results - Last 24 Hours (Table) 11/12/23 11/12/23 11/13/23 Range/Units 17:00 20:17 10:27 RBC 3.18 L (3.80-5.40) m/uL Hgb 9.2 L (11.4-16.0) gm/dL Hct 29.9 L (34.0-46.0) % MCHC 30.9 L (31.0-37.0) g/dL Sodium (137-145) mmol/L BUN (7-17) mg/dL Creatinine (0.52-1.04) mg/dL Glucose (74-99) mg/dL POC Glucose (mg/dL) 159 H 228 H (70-110) mg/dL Calcium (8.4-10.2) mg/dL 11/13/23 11/13/23 Range/Units 10:27 12:04 RBC (3.80-5.40) m/uL Hgb (11.4-16.0) gm/dL Hct (34.0-46.0) % MCHC (31.0-37.0) g/dL Sodium 130 L (137-145) mmol/L BUN 61 H (7-17) mg/dL Creatinine 2.40 H (0.52-1.04) mg/dL Glucose 135 H (74-99) mg/dL POC Glucose (mg/dL) 126 H (70-110) mg/dL Calcium 8.2 L (8.4-10.2) mg/dL Assessment and Plan (1) Diabetic foot ulcer Current Visit: Yes Status: Acute Code(s): E11.621 - TYPE 2 DIABETES MELLITUS WITH FOOT ULCER; L97.509 - NON-PRESSURE CHRONIC ULCER OTH PRT UNSP FOOT W UNSP SEVERITY SNOMED Code(s): 313064630 (2) Gangrene of toe of right foot Current Visit: Yes Status: Acute Code(s): I96 - GANGRENE, NOT ELSEWHERE CLASSIFIED SNOMED Code(s): 52951911194168899 Plan: 1patient with extensive right big toe diabetic foot infection concerning for gangrene with widening to the right big toe and right to the right second and third toe in this patient who did have a history of PAD and ended up Losing her left lower extremity now with evidence of significant infection patient benefit from vascular workup and possible amputation of the right big toe as clinically doubt it will help with the antibiotic alone, patient has been evaluated by vascular surgery and apparently family has refused amputation they are re commending possible angiogram as an outpatient because of her elevated creatinine 2patient local culture currently growing Pseudomonas and MRSA 3patient continue to refuse any amputation, patient did have a evidence of wet gangrene on admission which seem to be drying out I have detailed discussion with 2 of the patient daughter with Mulu being the power of finance attorney and both of them have expressed patient desire not to go any further surgery I have told them without any surgical debridement or amputation we will not be able to cure this infection they want the patient to be made comfortable we can try oral Ceftin and Cipro and doxycycline on the basis of pathogen we have grown in the culture and keep the area dry they have expressed the desire for possible hospice which may be appropriate for her Times when has been more than 35 minutes calling the patient daughter is discussing different treatment option also discussing with the admitting team Dictation was produced using [employer] dictation software. please excuse any grammatical, word or spelling errors. Time with Patient: Greater than 30
[2023-11-13 20:14] LABS: Glucose,Whole Blood 173 mg/dL (70-110)
[2023-11-14 07:20] LABS: Glucose,Whole Blood 79 mg/dL (70-110)
[2023-11-14 12:41] LABS: Glucose,Whole Blood 191 mg/dL (70-110)
--- NOTE | 2023-11-14 13:50 | P.NPCON ---
History of Present Illness - Reason for Consult chronic renal failure - History of Present Illness patient is an 83-year-old female with history of type 2 diabetes, hypertension, chronic A. fib with previous history of left AKA in September 2023. Patient also has history of CKD stage 4 recurrent urinary tract infections. Patient was admitted to the hospital due to chronic nonhealing wound on the right toe. Amputation has been recommended but patient is refusing any further amputation. patient is currently maintained on daptomycin. Wound culture on 11/07/2023 grew E. coli and MRSA and Pseudomonas. Patient has underlying chronic kidney disease NKF stage IV with baseline creatinine around 2.2-2.4 mg/dL.. Serum creatinine has been at 2.4-2.5 mg/dL this admission. BP has not been low. Patient has been voiding. Patient needs a PICC line to continue antibiotics post discharge. therefore nephrology is consulted. At this time patient and family state that they have no plans for renal replacement therapy down the road. Review of Systems as per HPI Past Medical History Past Medical History: Atrial Fibrillation, Heart Failure, CVA/TIA, Diabetes Mellitus, Hyperlipidemia, Hypertension, Osteoarthritis (OA), Renal Disease Additional Past Medical History / Comment(s): wound rt ankle and Right first, second, third and fourth toes, L BKA July 2023, L AKA Ma2023, frequent UTIs, shingles 2022 History of Any Multi-Drug Resistant Organisms: MRSA Date of last positivie culture/infection: 2018 approx. MDRO Source:: Urine Past Surgical History: Cholecystectomy, Orthopedic Surgery Additional Past Surgical History / Comment(s): left foot all toes amputated 2021; Left BKA July 2023, Left AKA September 2023, right abdominal hematoma surgically removed. Past Anesthesia/Blood Transfusion Reactions: No Reported Reaction Past Psychological History: No Psychological Hx Reported Additional Psychological History / Comment(s): Pt resides with daughter W/C bound. One person transfer. Smoking Status: Never smoker Past Alcohol Use History: Unable to Obtain Past Drug Use History: Unable to Obtain - Past Family History Sister(s) Family Medical History: Cancer Additional Family Medical History / Comment(s): Renal cancer. Brother(s) Family Medical History: Cancer Additional Family Medical History / Comment(s): Renal cancer Medications and Allergies Home Medications Medication Instructions Recorded Confirmed Type Folic Acid 1 mg PO DAILY 02/20/22 11/07/23 History Potassium Chloride ER [K-Dur 10] 10 meq PO DAILY 02/20/22 11/07/23 History Tamsulosin HCl [Flomax] 0.4 mg PO DAILY 02/20/22 11/07/23 History Empagliflozin [Jardiance] 10 mg PO DAILY 04/26/22 11/07/23 History Furosemide [Lasix] 20 mg PO DAILY 04/26/22 11/07/23 History Insulin Aspart [NovoLOG Flexpen] See Protocol SQ ACHS 11/07/22 11/07/23 History Acetaminophen Tab [Tylenol] 650 mg PO Q6HR PRN tab 11/09/22 11/07/23 Rx Sodium Bicarbonate Tab 650 mg PO DAILY 07/30/23 11/07/23 History hydrALAZINE HCL [Apresoline] 25 mg PO TID tab 08/06/23 11/07/23 Rx Atorvastatin [Lipitor] 20 mg PO DAILY 09/15/23 11/07/23 History Dulaglutide [Trulicity] 0.75 mg SQ THOMSON 09/15/23 11/07/23 History Ondansetron [Zofran] 4 mg PO Q6H PRN 09/15/23 11/07/23 History Ascorbic Acid [Vitamin C] 250 mg PO BID 10/04/23 11/07/23 History Collagenase [Santyl Ointment] 1 applic TOPICAL DAILY 10/04/23 11/07/23 History Multivitamins, Thera [Multivitamin 1 tab PO DAILY 10/04/23 11/07/23 History (formulary)] Rivaroxaban [Xarelto] 15 mg PO HS 10/04/23 11/07/23 History Sodium Hypochlorite (Dankin's 1 applic TOPICAL DAILY 10/04/23 11/07/23 History Solution) 0.25% DULoxetine HCL [Cymbalta] 30 mg PO DAILY 10/11/23 11/07/23 History Insulin Glargine,Hum.rec.anlog 10 units SQ DAILY 10/11/23 11/07/23 History [Lantus Solostar Pen] Doxycycline Hyclate 100 mg PO Q12H #28 capsule 11/14/23 Rx cefUROXime axetiL [Cefuroxime] 500 mg PO DAILY #14 tab 11/14/23 Rx Allergies Allergy/AdvReac Type Severity Reaction Status Date / Time aspirin Allergy Severe Anaphylaxis Verified 11/07/23 20:34 Physical Exam Vitals: Vital Signs Temp Pulse Resp BP Pulse Ox 11/14/23 13:01 97.7 F 73 16 114/73 100 11/14/23 07:12 98.2 F 74 15 130/69 99 11/14/23 01:27 99.1 F 82 17 161/72 95 11/13/23 18:59 98.6 F 59 L 16 148/65 99 Intake and Output 11/13/23 11/14/23 11/14/23 22:59 06:59 14:59 Intake Total 240 Output Total 550 500 Balance -550 -500 240 Intake: Oral 240 Output: Urine 550 500 Other: # Voids 1 # Bowel Movements 1 patient is awake, comfortable, no acute distress. Examination of the heart S1 and S2 Examination of the lungs bilateral breath sounds are heard Examination of lower extremity shows left AKA. Right foot is currently wrapped. No edema noted Results - Lab Results Most recent lab results Calcium 8.2 mg/dL (8.4-10.2) L 11/13/23 10:27 Phosphorus 4.4 mg/dL (2.4-5.1) 11/08/23 06:09 Magnesium 1.7 mg/dL (1.5-2.4) 11/10/23 05:29 11/13/23 10:27 11/13/23 10:27 Assessment and Plan Assessment: 1. Chronic kidney disease NKF stage 4-5 secondary to nephrosclerosis and diabetic kidney disease. Patient follows as outpatient and at this time there are no plans for renal replacement therapy in case renal function deteriorates. 2. Chronic right big toe nonhealing wound with wound cultures growing MRSA Pseudomonas and E. coli, currently maintained on daptomycin. Patient will need PICC line to continue antibiotics post discharge. 3. History of left AKA 4. Hyponatremia possibly hypovolemic, now improved. 5. Metabolic acidosis associated with CK D maintained on oral sodium bicarb Plan: okay to proceed with PICC line in dominant arm. Continue with oral sodium bicarb. Patient is advised to follow-up as outpatient in 1-2 weeks post discharge. Continue antibiotics as per ID
[2023-11-14 17:15] LABS: Glucose,Whole Blood 185 mg/dL (70-110)
--- NOTE | 2023-11-14 17:40 | XR ---
EXAMINATION TYPE: XR chest 1V DATE OF EXAM: 11/14/2023 COMPARISON: 10/13/2023 HISTORY: 83-year-old female for placement of PICC line TECHNIQUE: Single frontal view of the chest is obtained. FINDINGS: Heart normal size. Right PICC tip within the lower right atrium. Mild interstitial promine nce. No consolidation or pleural effusion. IMPRESSION: Right PICC tip at the lower right atrium. Interstitial prominence could reflect bronchit is or asthma.
[2023-11-14 20:07] LABS: Glucose,Whole Blood 263 mg/dL (70-110)
--- NOTE | 2023-11-14 22:54 | XR ---
EXAMINATION TYPE: XR chest 1V confirm line [facility] DATE OF EXAM: 11/14/2023 CLINICAL HISTORY: PICC line placement. TECHNIQUE: Single AP portable upright view of the chest is obtained. COMPARISON: Chest x-ray from earlier today FINDINGS: Right-sided PICC line now terminates in SVC. No pneumothorax is evident. Lungs remain kelvin r. Cardiac silhouette stable and within normal limits. Osseous structures are intact. IMPRESSION: As above.
[2023-11-15 07:17] LABS: Glucose,Whole Blood 76 mg/dL (70-110)
--- NOTE | 2023-11-15 09:22 | P.PN ---
Subjective Progress Note Date: 11/14/23 Patient is a 83-year-old female with a past medical history of diabetes type 2 insulin-dependent, atrial fibrillation on anticoagulation with Xarelto, hypertension, hyperlipidemia, osteoarthritis, peripheral vascular disease with history of left BKA and July 2023 followed by left AKA on 09/23/2023, recurrent urinary tract infections and other multiple medical problems presents to ER with complaints of right great toe infection, discoloration and ankle is getting larger in size. Patient was referred from wound care clinic. Otherwise denies any complaints of fever or chills. No chest pain or shortness of breath. No nausea vomiting abdominal pain or diarrhea. Denied dysuria or hematuria Foot x-ray showed no evidence of fracture. Severe degeneration changes throughout the joints of the foot. Soft tissue abnormality compatible with wound involving fourth digit no obvious osseous erosion or visualization is limited on some views. Possible subluxation of the first digit interphalangeal joint suggested on single view. Laboratory data showed WBC 11.4 hemoglobin 8.7 platelets 347 sodium 128 potassium 4.1 chloride 96 bicarb is 22 BUN 51 and creatinine 2.33 and blood sugar 174 calcium 8.0, AST 27 ALT 14 alk phos 150 albumin 3.2 11/09/2023 Patient is seen in follow-up today currently sitting up in the chair with daughter at the bedside no acute overnight issues noted. Patient continues with local wound care along with antibiotics in the form of daptomycin and Zosyn with infectious disease following. Currently awaiting cultures to determine appropriate antibiotics. After further discussion family would like palliative services on discharge as patient is refusing any further surgical intervention and also requesting to be no code. Per vascular surgery, she is cleared for discharge once cleared by consultations. Infectious disease following and would like to wait until cultures have finalized. Patient is afebrile with no reports of chest pain or shortness of breath. Patient is tolerating diet with no reported nausea or vomiting. Continue with Accu-Cheks before meals and at bedtime and current insulin regimen and will adjust as needed. Plan is for patient to return home on discharge with daughters. Hemoglobin was noted to be 6.9 this morning and will order 1 unit of PRBC and also give a dose of IV Lasix post infusion. White count remains normal and platelets are within normal limits. 11/10/2023 Patient is currently resting in the bed. Awake alert and oriented x 3. No complaints of chest pain or shortness of breath. On room air. No nausea vomiting abdominal pain or diarrhea. No cough or sputum production. Patient is being continued on antibiotics in the form of daptomycin and Zosyn. ID and vascular surgery is on board. Laboratory test showed WBC 9.0 hemoglobin 8.6 and platelets 273 sodium 134 potassium 4.0 chloride 98 bicarb is 20.4 BUN 48.1 and creatinine 2.5 and blood sugar 66 and magnesium 1.7. Current medications reviewed. ID and vascular surgery is on board. 11/11/2023 Patient is resting in the bed. Awake alert and oriented x 3. No complaints of chest pain or shortness of breath. Right foot pain is controlled. Continues to have gangrenous changes and discoloration of the great toe. Continued on wound care. Patient is on antibiotics daptomycin and Zosyn. Recent wound cultures growing from 24 Sep 2023 showed Pseudomonas, E. coli and MRSA. ID and vascular surgery is on board. 11/12/2023 Patient is seen in follow-up this morning reports to feeling well anticipating going home. Patient continues to have significant gangrenous changes with discoloration to the right foot and continues to be adamant about no further emely gical intervention. Vascular surgery has evaluated the patient and patient does not want any further surgery. Infectious disease following and patient is maintained on antibiotics and will continue for now. Patient needs surgical intervention or will likely result in infection with sepsis patient and . Will need to discuss further with family members regarding treatment plan as well as discharge planning. Family would like to pursue palliative care on discharge although this infection is far more advanced than just palliative care. 11/13/2023 Patient is seen in follow-up today has been evaluated and reevaluated by vascular surgery continues to be adamant she does not want any further surgical intervention and continues on antibiotics. Infectious disease following and discuss further with family regarding treatment plan moving forward. Patient is maintained on antibiotics in the form of daptomycin and Zosyn and will continue for now. Will need to discuss further if patient will continue on antibiotic therapy going home and outpatient follow-up with vascular surgery. Continue monitoring Accu-Cheks and continue to treat with sliding scale. Hemoglobin is stable and kidney functions remain elevated although chronic and is stable. Palliative care consult was placed for outpatient. 11/14/2023 Patient is seen in follow-up today with no acute overnight issues noted. After discussion with infectious disease and family members patient will receive a PICC line and will continue on IV antibiotics outpatient and outpatient follow- up with infectious disease along with vascular surgery. Patient continues to be adamant about not wanting any further surgery and family wants to continue to proceed with antibiotic coverage. PICC line is ordered and pending and case management following arranging for discharge planning including home care and IV antibiotic coverage. Review of systems: Constitutional: No reports of fatigue, fever, or chills Cardiovascular: No reports of chest pain or palpitations Respiratory: No reports of shortness of breath or cough GI: No reports of nausea, vomiting, or diarrhea : No reports of dysuria or retention Neurovascular: reports of generalized weakness with no right foot pain All medications have been reviewed PHYSICAL EXAMINATION: Patient is sitting up in the bed, no acute distress, awake alert and oriented.. Well-developed, elderly appearing HEENT: Normocephalic. Neck is supple. Pupils reactive. Nostrils clear. Oral cav ity is moist. Neck reveals no JVD, carotid bruits, or thyromegaly. CHEST EXAMINATION: Trachea is central. Symmetrical expansion. Lung natarajan clear to auscultation and percussion. CARDIAC: Normal S1, S2 with no gallops. No murmurs ABDOMEN: Soft. Bowel sounds normal. No organomegaly. No abdominal bruits. Extremities: Left AKA. Right great toe ulcer with gangrenous changes/discoloration and right ankle ulcer. No clubbing or cyanosis Neurologically awake, alert, oriented x3 with well-coordinated movements. No focal deficits noted Skin: No rash or skin lesions. Psychiatric: Cooperative. Non-suicidal Musculoskeletal: No joint swelling or deformity. Assessment: Right toe and right ankle/heel diabetic ulcer infection with discoloration and gangrenous changes. 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 DVT prophylaxis patient is already on Xarelto History of CVA/TIA Osteoarthritis GI prophylaxis No code Plan: Patient will be continued on antibiotics in the form of daptomycin and Zosyn. Vascular surgery was consulted and recommends continue local wound care as patient is refusing any further surgical intervention or amputation at this time. Patient to follow-up with vascular surgery outpatient. Infectious disease following and has had a very detailed conversation with family regarding treatment plan and that antibiotics are being adjusted and patient will receive a PICC line for continued daptomycin and cefepime on discharge. Patient is persistent she does not want any further surgery although surgery is likely going to be the effective treatment. Patient to follow-up with vascular surgery outpatient and will continue with close outpatient follow- up with infectious disease as well. PICC line ordered and pending for today and case management following working on discharge planning including verifying coverage for IV antibiotics and continued wound care Arranging for palliative care outpatient. Patient wishes to be no code and again stresses the importance that she does not want any further surgical intervention. Home medications reviewed and resumed as appropriate Due to multiple complex medical issues, overall prognosis is guarded Possible discharge planning in the next 24 hours. The impression and plan of care has been dictated by Mildred Swift, Nurse Practitioner as directed. Dr. Jakob MD I have performed a history and examination and MDM of this patient, discussed the same with the dictator, and agree with the dictator's assessment and plan as written ,documented as a scribe. Based on total visit time, I have performed more than 50% of the visit. Objective - Vital Signs Vital signs: Vital Signs Temp 97.7 F 11/14/23 13:01 Pulse 73 11/14/23 13:01 Resp 16 11/14/23 13:01 BP 114/73 11/14/23 13:01 Pulse Ox 100 11/14/23 13:01 FiO2 Intake & Output 11/13/23 11/14/23 11/14/23 18:59 06:59 18:59 Intake Total 240 Output Total 550 500 Balance -550 -500 240 Weight 65.317 kg Intake: Oral 240 Output: Urine 550 500 Other: # Voids 1 1 # Bowel Movements 1 - Labs CBC & Chem 7: 11/13/23 10:27 11/13/23 10:27 Labs: Abnormal Lab Results - Last 24 Hours (Table) 11/13/23 11/13/23 11/14/23 Range/Units 17:09 20:11 12:33 POC Glucose (mg/dL) 204 H 173 H 191 H (70-110) mg/dL
[2023-11-15 12:40] LABS: Glucose,Whole Blood 173 mg/dL (70-110)
[2023-11-15 13:03] VITALS: BP 166/66; PULSE 83; RESP 16; TEMP 97.9
--- NOTE | 2023-11-15 14:40 | P.PN ---
Subjective Progress Note Date: 11/14/23 Principal diagnosis: Reason for follow-up is right big toe gangrene diabetic foot infection Patient is a 83-year-old female with a past medical history significant for atrial fibrillation diabetes mellitus hypertension hyperlipidemia CVA TIA patient did have a history of left foot diabetic foot infection requiring initial transmetatarsal amputation followed by left BKA and afterwards the patient did have MARII in September 2023, recently has been dealing with the wound on the dorsum aspect of the right big toe which has been debrided and the wound care now presenting with a right big toe gangrene. On today's evaluation that is 11/14/2023, Patient is afebrile this morning and denies any chills, patient mention breathing comfortably and is currently on room air, patient denies any chest pain occasional cough patient denies any abdominal pain no diarrhea no nausea no vomiting, patient denies pain to the right foot wound area. No new labs has been obtained today Objective - Vital Signs Vital signs: Vital Signs Temp 98.2 F 11/14/23 07:12 Pulse 74 11/14/23 07:12 Resp 15 11/14/23 07:12 BP 130/69 11/14/23 07:12 Pulse Ox 99 11/14/23 07:12 FiO2 Intake & Output 11/13/23 11/14/23 11/14/23 18:59 06:59 18:59 Output Total 550 500 Balance -550 -500 Weight 65.317 kg Output: Urine 550 500 Other: # Voids 1 - Exam GENERAL DESCRIPTION: An elderly female lying in bed in no distress RESPIRATORY SYSTEM: Unlabored breathing , decreased breath sounds at bases HEART: S1 S2 regular rate and rhythm , ABDOMEN: Soft , no tenderness EXTREMITIES: Right foot is currently dressed no drainage on the dressing - Labs CBC & Chem 7: 11/13/23 10:27 11/13/23 10:27 Labs: Abnormal Lab Results - Last 24 Hours (Table) 11/13/23 11/13/23 11/13/23 Range/Units 10:27 12:04 17:09 Sodium 130 L (137-145) mmol/L BUN 61 H (7-17) mg/dL Creatinine 2.40 H (0.52-1.04) mg/dL Glucose 135 H (74-99) mg/dL POC Glucose (mg/dL) 126 H 204 H (70-110) mg/dL Calcium 8.2 L (8.4-10.2) mg/dL 11/13/23 Range/Units 20:11 Sodium (137-145) mmol/L BUN (7-17) mg/dL Creatinine (0.52-1.04) mg/dL Glucose (74-99) mg/dL POC Glucose (mg/dL) 173 H (70-110) mg/dL Calcium (8.4-10.2) mg/dL Assessment and Plan (1) Diabetic foot ulcer Current Visit: Yes Status: Acute Code(s): E11.621 - TYPE 2 DIABETES MELLITUS WITH FOOT ULCER; L97.509 - NON-PRESSURE CHRONIC ULCER OTH PRT UNSP FOOT W UNSP S [facility] SNOMED Code(s): 792034586 (2) Gangrene of toe of right foot Current Visit: Yes Status: Acute Code(s): I96 - GANGRENE, NOT ELSEWHERE CLASSIFIED SNOMED Code(s): 45622441540045632 Plan: 1patient with extensive right big toe diabetic foot infection concerning for gangrene with widening to the right big toe and right to the right second and third toe in this patient who did have a history of PAD and ended up Losing her left lower extremity now with evidence of significant infection patient benefit from vascular workup and possible amputation of the right big toe as clinically doubt it will help with the antibiotic alone, patient has been evaluated by vascular surgery and apparently family has refused amputation they are recommending possible angiogram as an outpatient because of her elevated creatinine 2patient local culture currently growing Pseudomonas and MRSA 3patient continue to refuse any amputation, patient did have a evidence of wet gangrene on admission which seem to be drying out I have detailed discussion with 2 of the patient daughter with Mulu being the power of mergers and acquisitions attorney and both of them have expressed patient desire not to go any further surgery I have told them without any surgical debridement or amputation we will not be able to cure this infection they want the patient to be made comfortable, as per initial discussion with the family yesterday they were okay with the going home on oral antibiotic unfortunately I was unable to use oral Cipro because of drug interaction with SSRI has the patient decided to go with the IV antibiotic therapy will get a PICC line and consider a 60 course of daptomycin and Zosyn prescription provided to the case managers Dictation was produced using [employer] dictation software. please excuse any grammatical, word or spelling errors. Time with Patient: Less than 30
--- NOTE | 2023-11-15 14:41 | P.PN ---
Subjective Progress Note Date: 11/15/23 Principal diagnosis: Reason for follow-up is right big toe gangrene diabetic foot infection Patient is a 83-year-old female with a past medical history significant for atrial fibrillation diabetes mellitus hypertension hyperlipidemia CVA TIA patient did have a history of left foot diabetic foot infection requiring initial transmetatarsal amputation followed by left BKA and afterwards the patient did have MARII in September 2023, recently has been dealing with the wound on the dorsum aspect of the right big toe which has been debrided and the wound care now presenting with a right big toe gangrene. On today's evaluation that is 11/15/2023,the patient denies any fever or any chills, patient is breathing comfortably on room air, the patient denies chest pain shortness of breath and no significant cough, patient denies abdominal pain, no nausea vomiting or diarrhea. Patient mention overall feeling better. No new labs has been repeated today cultures in the outpatient setting did grow E. coli MRSA and Pseudomonas Objective - Vital Signs Vital signs: Vital Signs Temp 97.8 F 11/15/23 07:52 Pulse 62 11/15/23 07:52 Resp 15 11/15/23 07:52 BP 152/63 11/15/23 07:52 Pulse Ox 97 11/15/23 07:52 FiO2 Intake & Output 11/14/23 11/15/23 11/15/23 18:59 06:59 18:59 Intake Total 1160 830 200 Output Total 260 400 Balance 900 430 200 Intake: Oral 1160 830 200 Output: Urine 260 400 Other: Voiding Method Bedside Commode # Voids 2 1 # Bowel Movements 1 1 - Exam GENERAL DESCRIPTION: An elderly female lying in bed in no distress RESPIRATORY SYSTEM: Unlabored breathing , decreased breath sounds at bases HEART: S1 S2 regular rate and rhythm , ABDOMEN: Soft , no tenderness EXTREMITIES: Right foot is currently dressed no drainage on the dressing - Labs CBC & Chem 7: 11/13/23 10:27 11/13/23 10:27 Labs: Abnormal Lab Results - Last 24 Hours (Table) 11/14/23 11/14/23 11/14/23 Range/Units 12:33 17:07 20:06 POC Glucose (mg/dL) 191 H 185 H 263 H (70-110) mg/dL Assessment and Plan (1) Diabetic foot ulcer Current Visit: Yes Status: Acute Code(s): E11.621 - TYPE 2 DIABETES MELLITUS WITH FOOT ULCER; L97.509 - NON-PRESSURE CHRONIC ULCER OTH PRT UNSP FOOT W UNSP SEVERITY SNOMED Code(s): 356249533 (2) Gangrene of toe of right foot Current Visit: Yes Status: Acute Code(s): I96 - GANGRENE, NOT ELSEWHERE CLASSIFIED SNOMED Code(s): 38738278352797899 Plan: 1patient with extensive right big toe diabetic foot infection concerning for gangrene with widening to the right big toe and right to the right second and third toe in this patient who did have a history of PAD and ended up Losing her left lower extremity now with evidence of significant infection patient benefit from vascular workup and possible amputation of the right big toe as clinically doubt it will help with the antibiotic alone, patient has been evaluated by vascular surgery and apparently family has refused amputation they are recommending possible angiogram as an outpatient because of her elevated creatinine 2patient local culture currently growing Pseudomonas and MRSA 3patient continue to refuse any amputation, patient did have a evidence of wet gangrene on admission which seem to be drying out I have detailed discussion with 2 of the patient daughter with Mulu being the power of workers compensation defense attorney and both of them have expressed patient desire not to go any further surgery I have told them without any surgical debridement or amputation we will not be able to cure this infection they want the patient to be made comfortable, as per initial dis cussion with the family yesterday they were okay with the going home on oral antibiotic unfortunately I was unable to use oral Cipro because of drug interaction with SSRI has the patient decided to go with the IV antibiotic therapy 4-patient did received PICC line yesterday and prescription was provided to the telephonic nurse case manager yesterday still working on getting outpatient IV antibiotic arrangement was agreed she should able to go home on IV Zosyn and daptomycin for 6 weeks and close outpatient follow-up discussed with the patient as well as with the daughter Dictation was produced using [employer] dictation software. please excuse any grammatical, word or spelling errors. Time with Patient: Less than 30
--- NOTE | 2023-11-17 16:08 | P.DS ---
Providers Date of admission: 11/07/23 19:37 Expected date of discharge: 11/15/23 Attending physician: Faviola Robert Consults: 11/07/23 19:33 Consult Physician Routine Consulting Provider: Jamila Campos Consult Reason/Comments: known Do you want consulting provider notified?: Yes 11/08/23 11:44 Consult Physician Urgent Consulting Provider: Jenniffer Austin Consult Reason/Comments: right 1,2,3,4 toe and ankle wounds, [place] known to patient Do you want consulting provider notified?: Yes 11/14/23 13:08 Consult Physician Routine Consulting Provider: Aileen Gauthier Consult Reason/Comments: PICC line placement Do you want consulting provider notified?: Already Contacted Primary care physician: Megha Nolen Hospital Course: Final diagnosis Right toe and right ankle/heel diabetic ulcer infection with discoloration and gangrenous changes. 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 DVT prophylaxis patient is already on Xarelto History of CVA/TIA Osteoarthritis GI prophylaxis No code Discharge disposition Patient is being discharged in a stable condition with guarded prognosis to home with home care. Patient will follow-up with Dr. Nolen in the outpatient setting upon discharge. Patient is to continue with IV antibiotics per infectious disease and close outpatient follow-up with vascular surgery and infectious disease as scheduled. Arranging for outpatient palliative care. Total time taken is greater than 35 minutes. Hospital course This is a 83-year-old female who was recently admitted with right foot toe infection with cellulitis with concerns of gangrene. Patient seen and evaluated by vascular surgery along with infectious disease and started on antibiotics recommending surgical intervention and patient is refusing any further intervention. Patient wishes to be no code and would like to avoid any further surgeries. After discussion with family and infectious disease along with patient they are agreeable to continue with IV antibiotic therapy and follow-up with consults in the outpatient setting. Patient has received a PICC line prior to discharge. Palliative care is also being arranged and referral has been placed. Patient has been cleared by consultations for discharge. Please refer to consultation notes for further HPI. currently no reports of chest pain, shortness of breath, or palpitations. Patient is afebrile. No reports of nausea or vomiting and patient is tolerating diet. Patient will be discharged home with home care today. Guarded prognosis and high risk for readmissions given significant comorbidities. Again patient wishes to have no further surgical intervention. Physical exam: Gen: This is a 83-year-old female who is awake, alert and oriented x 2-3, well- developed, elderly appearing HEENT: Head is atraumatic, normocephalic. Pupils equal, round. Sclerae is anicteric. NECK: Supple. No JVD. No lymphadenopathy. No thyromegaly. LUNGS: Diminished breath sounds bilaterally otherwise clear to auscultation. No wheezes or rhonchi. No intercostal retractions. HEART: S1, S2 are muffled ABDOMEN: Soft. Bowel sounds are present. No masses. No tenderness. EXTREMITIES: No pedal edema. No calf tenderness. Left BKA, right great toe gangrene with some swelling and redness that has improved noted NEUROLOGICAL: Patient is awake, alert and oriented x3. Cranial nerves 2 through 12 are grossly intact. Please refer to medication reconciliation sheet for a list of medications. The impression and plan of care has been dictated by Mildred Swift, Nurse Practitioner as directed. Dr. Jakob MD I have performed a history and examination and MDM of this patient, discussed the same with the dictator, and agree with the dictator's assessment and plan as written ,documented as a scribe. Based on total visit time, I have performed more than 50% of the visit. Patient Condition at Discharge: Fair Plan - Discharge Summary Discharge Rx Participant: No New Discharge Prescriptions: New DAPTOmycin [Cubicin] 500 mg IV Q48H #21 each Piperacillin-Tazobactam [Zosyn] 3.375 gm IVPB Q12HR #84 each Continue Tamsulosin HCl [Flomax] 0.4 mg PO DAILY Folic Acid 1 mg PO DAILY Furosemide [Lasix] 20 mg PO DAILY Insulin Aspart [NovoLOG Flexpen] See Protocol SQ ACHS Ondansetron [Zofran] 4 mg PO Q6H PRN PRN Reason: Nausea Dulaglutide [Trulicity] 0.75 mg SQ THOMSON Sodium Hypochlorite (Dankin's Solution) 0.25% 1 applic TOPICAL DAILY Rivaroxaban [Xarelto] 15 mg PO HS Ascorbic Acid [Vitamin C] 250 mg PO BID Potassium Chloride ER [K-Dur 10] 10 meq PO DAILY Empagliflozin [Jardiance] 10 mg PO DAILY Acetaminophen Tab [Tylenol] 650 mg PO Q6HR PRN tab PRN Reason: Mild Pain Or Fever > 100.5 Sodium Bicarbonate Tab 650 mg PO DAILY hydrALAZINE HCL [Apresoline] 25 mg PO TID tab Multivitamins, Thera [Multivitamin (formulary)] 1 tab PO DAILY DULoxetine HCL [Cymbalta] 30 mg PO DAILY Insulin Glargine,Hum.rec.anlog [Lantus Solostar Pen] 10 units SQ DAILY Discontinued Atorvastatin [Lipitor] 20 mg PO DAILY Collagenase [Santyl Ointment] 1 applic TOPICAL DAILY Discharge Medication List Folic Acid 1 mg PO DAILY 02/20/22 [History] Potassium Chloride ER [K-Dur 10] 10 meq PO DAILY 02/20/22 [History] Tamsulosin HCl [Flomax] 0.4 mg PO DAILY 02/20/22 [History] Empagliflozin [Jardiance] 10 mg PO DAILY 04/26/22 [History] Furosemide [Lasix] 20 mg PO DAILY 04/26/22 [History] Insulin Aspart [NovoLOG Flexpen] See Protocol SQ ACHS 11/07/22 [History] Acetaminophen Tab [Tylenol] 650 mg PO Q6HR PRN tab 11/09/22 [Rx] Sodium Bicarbonate Tab 650 mg PO DAILY 07/30/23 [History] hydrALAZINE HCL [Apresoline] 25 mg PO TID tab 08/06/23 [Rx] Dulaglutide [Trulicity] 0.75 mg SQ THOMSON 09/15/23 [History] Ondansetron [Zofran] 4 mg PO Q6H PRN 09/15/23 [History] Ascorbic Acid [Vitamin C] 250 mg PO BID 10/04/23 [History] Multivitamins, Thera [Multivitamin (formulary)] 1 tab PO DAILY 10/04/23 [History] Rivaroxaban [Xarelto] 15 mg PO HS 10/04/23 [History] Sodium Hypochlorite (Dankin's Solution) 0.25% 1 applic TOPICAL DAILY 10/04/23 [History] DULoxetine HCL [Cymbalta] 30 mg PO DAILY 10/11/23 [History] Insulin Glargine,Hum.rec.anlog [Lantus Solostar Pen] 10 units SQ DAILY 10/11/23 [History] DAPTOmycin [Cubicin] 500 mg IV Q48H #21 each 11/14/23 [Rx] Piperacillin-Tazobactam [Zosyn] 3.375 gm IVPB Q12HR #84 each 11/14/23 [Rx] Follow up Appointment(s)/Referral(s): Jenniffer Austin DO [STAFF PHYSICIAN] - 11/28/23 10:30 am Megha Nolen DO [Primary Care Provider] - 11/16/23 1:40 pm (appointment with Morena RYAN) [facility], [REFERRING] - 1 Week (They will be there tonight to drop off supplies ) [facility] [NON-STAFF] - 11/15/23 9:00 am (They will be there at 9am tomorrow morning ) Jamila Campos MD [STAFF PHYSICIAN] - 1 Week (Please call office and make appointment ) Patient Instructions/Handouts: Piperacillin/Tazobactam (By injection), Daptomycin (By injection), Diabetic Foot Ulcers (DC), Gangrene (DC) Activity/Diet/Wound Care/Special Instructions: Activity limited until follow-up Follow-up with primary care provider Follow-up with vascular surgery outpatient Follow-up with infectious disease outpatient Continue IV antibiotics and local wound care Wound care instructions: Dry aquacell silver, gauze, then Kerlex every 48hrs to right foot. Discharge Disposition: HOME WITH HOME HEALTH SERVICES
== END 2023-11-15 17:51 | disposition home health service (06) | DRG 300 ==
LOC: EC 16:58 → 4SSUR 19:37 → 5NMEDONC 11-08 08:04
PROVIDERS: ADMIT Hospitalist; ATTEND Hospitalist
PROC: 30233N1 Transfusion of Nonautologous Red Blood Cells into Peripheral Vein, Percutaneous Approach (ICD-10-PCS; 2023-11-09)
PROC: B5181ZA Fluoroscopy of Superior Vena Cava using Low Osmolar Contrast, Guidance (ICD-10-PCS; 2023-11-14)
PROC: B548ZZA Ultrasonography of Superior Vena Cava, Guidance (ICD-10-PCS; 2023-11-14)
PROC: 02HV33Z Insertion of Infusion Device into Superior Vena Cava, Percutaneous Approach (ICD-10-PCS; principal; 2023-11-14 11:10)
DX: E11.52 Type 2 diabetes mellitus with diabetic peripheral angiopathy with gangrene (principal); E87.1 Hypo-osmolality and hyponatremia; E87.20 Acidosis, unspecified; I13.0 Hypertensive heart and chronic kidney disease with heart failure and stage 1 through stage 4 chronic kidney disease, or unspecified chronic kidney disease; I48.20 Chronic atrial fibrillation, unspecified; L97.329 Non-pressure chronic ulcer of left ankle with unspecified severity; L97.419 Non-pressure chronic ulcer of right heel and midfoot with unspecified severity; N18.4 Chronic kidney disease, stage 4 (severe); E11.621 Type 2 diabetes mellitus with foot ulcer; I50.9 Heart failure, unspecified; D72.829 Elevated white blood cell count, unspecified; E11.22 Type 2 diabetes mellitus with diabetic chronic kidney disease; E11.42 Type 2 diabetes mellitus with diabetic polyneuropathy; E11.622 Type 2 diabetes mellitus with other skin ulcer; L97.519 Non-pressure chronic ulcer of other part of right foot with unspecified severity; M19.90 Unspecified osteoarthritis, unspecified site; D63.1 Anemia in chronic kidney disease; E11.628 Type 2 diabetes mellitus with other skin complications; L08.9 Local infection of the skin and subcutaneous tissue, unspecified; B95.62 Methicillin resistant Staphylococcus aureus infection as the cause of diseases classified elsewhere; B96.20 Unspecified Escherichia coli [E. coli] as the cause of diseases classified elsewhere; B96.5 Pseudomonas (aeruginosa) (mallei) (pseudomallei) as the cause of diseases classified elsewhere; E11.65 Type 2 diabetes mellitus with hyperglycemia; E78.5 Hyperlipidemia, unspecified; Z79.01 Long term (current) use of anticoagulants; Z79.4 Long term (current) use of insulin; Z79.84 Long term (current) use of oral hypoglycemic drugs; Z79.899 Other long term (current) drug therapy; Z86.73 Personal history of transient ischemic attack (TIA), and cerebral infarction without residual deficits; Z87.440 Personal history of urinary (tract) infections; Z89.512 Acquired absence of left leg below knee; Z89.612 Acquired absence of left leg above knee; Z86.14 Personal history of Methicillin resistant Staphylococcus aureus infection
CPT/HCPCS: 36415; 36573; 71045; 80048; 80053; 83036; 83605; 83735; 84100; 85025; 86850; 86900; 86901; 86920; 96365; 96366; 96367; 99285

== ENCOUNTER → 2023-12-18 | Outpatient (CLI) | payer MEDICARE ==
--- NOTE | 2023-12-18 17:11 | CT ---
EXAMINATION TYPE: CT brain wo con DATE OF EXAM: 12/18/2023 COMPARISON: 07/17/2023 HISTORY: AMS CT DLP: 1012.[address] of the brain was performed. The ventricles, basal cisterns and sulci overlying the cerebral convexities demonstrate mild enlargem ent. There is no evidence for intracranial hemorrhage or sulcal effacement. There is decreased attenuation about the periventricular white matter and deep white matter of both c erebral hemispheres, compatible with chronic small vessel ischemia. Differential diagnosis does inclu de demyelination. No mass effects are seen.No midline shift. Osseous calvarium is intact. Small scalp hematoma left occipital region. If symptoms persist consider MRI. IMPRESSION: 1. Age related atrophic and chronic small vessel ischemic change without acute intracranial process s een at this time.
== END | disposition home or self-care (01) ==
LOC: RADCTMAIN 15:47
PROVIDERS: ATTEND Family Medicine
DX: R41.82 Altered mental status, unspecified (principal); I67.82 Cerebral ischemia; S00.03XA Contusion of scalp, initial encounter; W01.0XXA Fall on same level from slipping, tripping and stumbling without subsequent striking against object, initial encounter
CPT/HCPCS: 70450

== ENCOUNTER 2024-01-23 19:56 | Inpatient (IN) | payer MEDICARE ==
--- NOTE | 2024-01-23 20:51 | ED ---
Extremity Problem HPI - General Source: patient, family, RN notes reviewed Mode of arrival: wheelchair Limitations: no limitations <Autumn Abreu - Last Filed: 01/23/24 20:49> - General Source: RN notes reviewed, old records reviewed Mode of arrival: wheelchair Limitations: no limitations - History of Present Illness MD Complaint: extremity pain, extremity swelling, other (History of necrotic and gangrenous right toes) -: hour(s) Location: right, lower extremity Radiation: none Quality: aching Consistency: intermittent Improves with: nothing Worsens with: nothing Associated Symptoms: fever, myalgias <Pool Scott - Last Filed: 01/26/24 21:56> - General Chief complaint: Extremity Problem,Nontraumatic Stated complaint: R Foot Infection Time Seen by Provider: 01/23/24 20:44 - History of Present Illness Initial comments: Quick Note: This is a 63-year-old female who presents to the emergency department for a right leg infection. Family states that they noticed a wound to her right lower taylor earlier today and are concerned that the redness has started to spread. Family believes that she may have had fevers. They are concerned because her infections spread quickly and they state that she typically needs IV antibiotics. She was complaining of pain earlier which improved with Tylenol. (Autumn Abreu) This 63-year-old female to the ER for evaluation of infection. 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 (Pool Scott) - Related Data Home Medications Medication Instructions Recorded Confirmed Folic Acid 1 mg PO DAILY 02/20/22 01/24/24 Potassium Chloride ER [K-Dur 10] 10 meq PO DAILY 02/20/22 01/24/24 Tamsulosin HCl [Flomax] 0.4 mg PO DAILY 02/20/22 01/24/24 Empagliflozin [Jardiance] 10 mg PO DAILY 04/26/22 01/24/24 Furosemide [Lasix] 20 mg PO DAILY 04/26/22 01/24/24 Insulin Aspart [NovoLOG Flexpen] See Protocol SQ AC-TID 11/07/22 01/24/24 Sodium Bicarbonate Tab 650 mg PO DAILY 07/30/23 01/24/24 Ondansetron [Zofran] 4 mg PO AC-BRKFST 09/15/23 01/24/24 Rivaroxaban [Xarelto] 15 mg PO DAILY 10/04/23 01/24/24 DULoxetine HCL [Cymbalta] 30 mg PO DAILY 10/11/23 01/24/24 Insulin Glargine,Hum.rec.anlog 10 units SQ DAILY 10/11/23 01/24/24 [Lantus Solostar Pen] Atorvastatin [Lipitor] 20 mg PO DAILY 01/24/24 01/24/24 Dulaglutide [Trulicity] 1.5 mg SQ FR 01/24/24 01/24/24 Insulin Aspart [NovoLOG Flexpen] 3 units SQ AC-TID 01/24/24 01/24/24 hydrALAZINE HCL [Apresoline] 25 mg PO BID 01/24/24 01/24/24 Allergies Allergy/AdvReac Type Severity Reaction Status Date / Time aspirin Allergy Severe Anaphylaxis Verified 01/23/24 20:07 Review of Systems ROS Other: All systems not noted in ROS Statement are negative. <Autumn Abreu - Last Filed: 01/23/24 20:49> ROS Other: All systems not noted in ROS Statement are negative. <Pool Scott - Last Filed: 01/26/24 21:56> ROS Statement: Those systems with pertinent positive or pertinent negative responses have been documented in the HPI. Past Medical History Past Medical History: Atrial Fibrillation, Heart Failure, CVA/TIA, Diabetes Mellitus, Hyperlipidemia, Hypertension, Renal Disease Additional Past Medical History / Comment(s): wound rt ankle and R great toe, L BKA, kidney failure, "slight stroke" 10years ago, CVA mild R sided weakness, frequent UTIs. History of Any Multi-Drug Resistant Organisms: None Reported, MRSA Date of last positivie culture/infection: 2018 approx. MDRO Source:: Urine Past Surgical History: Cholecystectomy, Orthopedic Surgery Additional Past Surgical History / Comment(s): left foot all toes amputated 2021; [place], hematoma removal abdomen Past Anesthesia/Blood Transfusion Reactions: No Reported Reaction Past Psychological History: No Psychological Hx Reported Smoking Status: Never smoker Past Alcohol Use History: Unable to Obtain Past Drug Use History: Unable to Obtain - Past Family History Sister(s) Family Medical History: Cancer Additional Family Medical History / Comment(s): Renal cancer. Brother(s) Family Medical History: Cancer Additional Family Medical History / Comment(s): Renal cancer <Autumn Abreu - Last Filed: 01/23/24 20:49> General Exam Limitations: no limitations <Autumn Abreu - Last Filed: 01/23/24 20:49> General appearance: alert, in no apparent distress Head exam: Present: atraumatic, normocephalic, normal inspection Eye exam: Present: normal appearance, PERRL, EOMI. Absent: scleral icterus, conjunctival injection, periorbital swelling ENT exam: Present: normal exam, mucous membranes moist Neck exam: Present: normal inspection. Absent: tenderness, meningismus, lymphadenopathy Respiratory exam: Present: normal lung sounds bilaterally. Absent: respiratory distress, wheezes, rales, rhonchi, stridor Cardiovascular Exam: Present: regular rate, normal rhythm, normal heart sounds. Absent: systolic murmur, diastolic murmur, rubs, gallop, clicks GI/Abdominal exam: Present: soft, normal bowel sounds. Absent: distended, tenderness, guarding, rebound, rigid Extremities exam: Present: normal inspection, full ROM, normal capillary refill. Absent: tenderness, pedal edema, joint swelling, calf tenderness Back exam: Present: normal inspection Neurological exam: Present: alert, oriented X3, CN II-XII intact Psychiatric exam: Present: normal affect, normal mood Skin exam: Present: warm, dry, intact, normal color. Absent: rash <Pool Scott - Last Filed: 01/26/24 21:56> - General Exam Comments Initial Comments: Visual Physical Exam Vital signs reviewed General: Well-appearing, nontoxic, no acute distress. Head: Normocephalic, atraumatic Eyes: PERRLA, EOMI ENT: Airway patent Chest: Nonlabored breathing Skin: No visual rash, normal skin tone Neuro: Alert and oriented 3 Musculoskeletal: No gross abnormalities (Autumn Abreu) Course <Pool Scott - Last Filed: 01/26/24 21:56> Vital Signs 01/23/24 01/23/24 01/24/24 20:04 23:07 00:08 Temperature 97.7 F 98.3 F Pulse Rate 95 87 Respiratory 16 16 Rate Blood Pressure 106/58 154/81 O2 Sat by Pulse 97 100 Oximetry - Reevaluation(s) Reevaluation #1: 01/23/24 22:39 Medical records reviewed (Pool Scott) Reevaluation #2: 01/23/24 22:39 Symptoms unchanged (Pool Scott) Reevaluation #3: 01/23/24 22:39 Informed of results questions answered (Pool Scott) Reevaluation #4: Was pt. sent in by a medical professional or institution (, [facility], SILK EXAMINER, urgent care, hospital, or usp...) When possible be specific @ -no Did you speak to anyone other than the patient for history (EMS, parent, family, police, friend...)? What history was obtained from this source @ -no Did you review nursing and triage notes (agree or disagree)? Why? @ -agree Are old charts reviewed (outside hosp., previous admission, EMS record, old EKG, old radiological studies, urgent care reports/EKG's, usp records)? Report findings @ -yes Differential Diagnosis (chest pain, altered mental status, abdominal pain women, abdominal pain men, vaginal bleeding, weakness, fever, dyspnea, syncope, headache, dizziness, GI bleed, back pain, seizure, CVA, palpatations, mental health, musculoskeletal)? @ -prior EKG interpreted by me (3pts min.). @ -yes X-rays interpreted by me (1pt min.). @ -yes negative for acute disease CT interpreted by me (1pt min.). @ -no U/S interpreted by me (1pt. min.). @ -no What testing was considered but not performed or refused? (CT, X-rays, U/S, labs)? Why? @ -none What meds were considered but not given or refused? Why? @ -none Did you discuss the management of the patient with other professionals (professionals i.e. ANGELL[facility] Coon, SILK EXAMINER, lab, RT, psych nurse, high school social science teacher, rn imaging, teacher, light armored vehicle officer, casework specialist)? Give summary @ -no Was smoking cessation discussed for >3mins.? @ -no Was critical care preformed (if so, how long)? @ -no Were there social determinants of health that impacted care today? How? (Ho melessness, low income, unemployed, alcoholism, drug addiction, transportation, low edu. Level, literacy, decrease access to med. care, half-way, rehab)? @ -none Was there de-escalation of care discussed even if they declined (Discuss DNR or withdrawal of care, Hospice)? DNR status @ -no What co-morbidities impacted this encounter? (DM, HTN, Smoking, COPD, CAD, Cancer, CVA, ARF, Chemo, Hep., AIDS, mental health diagnosis, sleep apnea, morbid obesity)? @ -none Was patient admitted / discharged? Hospital course, mention meds given and route, prescriptions, significant lab abnormalities, going to OR and other pertinent info. @ - 83 Female will be admitted for recurrent evaluation of lower extremity significant ulcerations with likely cellulitis and surrounding gangrene. Patient will be admitted for IV antibiotics Undiagnosed new problem with uncertain prognosis? @ -no Drug Therapy requiring intensive monitoring for toxicity (Heparin, Nitro, Insulin, Cardizem)? @ -no Were any procedures done? @ -no Diagnosis/symptom? @ -leg ulcer and infection, cellulitis Acute, or Chronic, or Acute on Chronic? @ -Acute Uncomplicated (without systemic symptoms) or Complicated (systemic symptoms)? @ -Complicated Side effects of treatment? @ -no Exacerbation, Progression, or Severe Exacerbation? @ -exacerbation Poses a threat to life or bodily function? How? (Chest pain, [place], [place], pneumonia, PE, COPD, DKA, ARF, appy, cholecystitis, CVA, Diverticulitis, Homicidal, Suicidal, threat to staff... and all critical care pts) @ -yes extremes of age (Pool Scott) - Consultations Consultation #1: Spoke with [facility] who agrees to admit this patient (Pool Scott) Medical Decision Making <Autumn Abreu - Last Filed: 01/23/24 20:49> - Lab Data Result diagrams: 01/26/24 12:49 01/26/24 12:49 - Radiology Data Radiology results: report reviewed (XR tib fib is negative or significant trauma), image reviewed <Pool Scott - Last Filed: 01/26/24 21:56> - Medical Decision Making I performed the QuickNote portion of this chart. Signed Autumn Abreu PA-C. (Autumn Abreu) 83 Female will be admitted for recurrent evaluation of lower extremity significant ulcerations with likely cellulitis and surrounding gangrene. Patient will be admitted for IV antibiotics (Pool Scott) - Lab Data Lab Results 01/23/24 01/23/24 01/23/24 Range/Units 22:18 22:18 22:18 WBC 26.1 H (3.8-10.6) k/uL RBC 3.95 (3.80-5.40) m/uL Hgb 12.6 D (11.4-16.0) gm/dL Hct 37.2 (34.0-46.0) % MCV 94.1 (80.0-100.0) fL MCH 31.8 (25.0-35.0) pg MCHC 33.8 (31.0-37.0) g/dL RDW 14.7 (11.5-15.5) % Plt Count 336 (150-450) k/uL Estimated Plt Count (Adequate) MPV 8.1 Immature Gran % (Auto) % Absolute Nucleated RBC % Neutrophils % 87 % Lymphocytes % 7 % Monocytes % 4 % Eosinophils % 0 % Basophils % 0 % Immature Gran # (0.00-0.04) X 10*3/uL Neutrophils # 22.7 H (1.3-7.7) k/uL Lymphocytes # 1.9 (1.0-4.8) k/uL Monocytes # 1.1 H (0-1.0) k/uL Eosinophils # 0.1 (0-0.7) k/uL Basophils # 0.1 (0-0.2) k/uL NRBC/100 WBC Diff (0.00-0.01) X 10*3/uL Manual Slide Review RBC Morphology (Normal) ESR (0-30) mm/Hr PT (10.0-12.5) sec INR (<1.2) APTT (22.0-30.0) sec Sodium 122 L (137-145) mmol/L Potassium 5.8 H (3.5-5.1) mmol/L Chloride 94 L (98-107) mmol/L Carbon Dioxide 19 L (22-30) mmol/L Anion Gap 9 mmol/L BUN 46 H (7-17) mg/dL Creatinine 2.52 H (0.52-1.04) mg/dL Est GFR (CKD-EPI) (>=60) Est GFR (CKD-EPI)AfAm 20 (>60 ml/min/1.73 sqM) Est GFR (CKD-EPI)NonAf 17 (>60 ml/min/1.73 sqM) BUN/Creatinine Ratio (12.00-20.00) Ratio Glucose 307 H (74-99) mg/dL POC Glucose (mg/dL) (70-110) mg/dL POC Glu Patient Care Director ID Plasma Lactic Acid Nolan 1.5 (0.7-2.0) mmol/L Calcium 8.8 (8.4-10.2) mg/dL Phosphorus (2.5-4.5) mg/dL Magnesium (1.6-2.3) mg/dL Total Bilirubin 1.1 (0.2-1.3) mg/dL AST 84 H (14-36) U/L ALT 84 H (4-34) U/L Alkaline Phosphatase 214 H (38-126) U/L C-Reactive Protein 20.8 H (<1.0) mg/dL Total Protein 7.3 (6.3-8.2) g/dL Albumin 3.2 L (3.5-5.0) g/dL Globulin (1.6-3.3) g/dL Albumin/Globulin Ratio (1.60-3.17) Ratio Influenza Type A (PCR) (Not Detectd) Influenza Type B (PCR) (Not Detectd) RSV (PCR) (Not Detectd) SARS-CoV-2 (PCR) (Not Detectd) 01/23/24 01/23/24 01/23/24 Range/Units 23:10 23:10 23:10 WBC (3.8-10.6) k/uL RBC (3.80-5.40) m/uL Hgb (11.4-16.0) gm/dL Hct (34.0-46.0) % MCV (80.0-100.0) fL MCH (25.0-35.0) pg MCHC (31.0-37.0) g/dL RDW (11.5-15.5) % Plt Count (150-450) k/uL Estimated Plt Count (Adequate) MPV Immature Gran % (Auto) % Absolute Nucleated RBC % Neutrophils % % Lymphocytes % % Monocytes % % Eosinophils % % Basophils % % Immature Gran # (0.00-0.04) X 10*3/uL Neutrophils # (1.3-7.7) k/uL Lymphocytes # (1.0-4.8) k/uL Monocytes # (0-1.0) k/uL Eosinophils # (0-0.7) k/uL Basophils # (0-0.2) k/uL NRBC/100 WBC Diff (0.00-0.01) X 10*3/uL Manual Slide Review RBC Morphology (Normal) ESR (0-30) mm/Hr PT 16.2 H (10.0-12.5) sec INR 1.6 H (<1.2) APTT 36.5 H (22.0-30.0) sec Sodium (137-145) mmol/L Potassium (3.5-5.1) mmol/L Chloride (98-107) mmol/L Carbon Dioxide (22-30) mmol/L Anion Gap mmol/L BUN (7-17) mg/dL Creatinine (0.52-1.04) mg/dL Est GFR (CKD-EPI) (>=60) Est GFR (CKD-EPI)AfAm (>60 ml/min/1.73 sqM) Est GFR (CKD-EPI)NonAf (>60 ml/min/1.73 sqM) BUN/Creatinine Ratio (12.00-20.00) Ratio Glucose (74-99) mg/dL POC Glucose (mg/dL) (70-110) mg/dL POC Glu Patient Care Director ID Plasma Lactic Acid Nolan (0.7-2.0) mmol/L Calcium (8.4-10.2) mg/dL Phosphorus 5.4 H (2.5-4.5) mg/dL Magnesium 1.6 (1.6-2.3) mg/dL Total Bilirubin (0.2-1.3) mg/dL AST (14-36) U/L ALT (4-34) U/L Alkaline Phosphatase (38-126) U/L C-Reactive Protein (<1.0) mg/dL Total Protein (6.3-8.2) g/dL Albumin (3.5-5.0) g/dL Globulin (1.6-3.3) g/dL Albumin/Globulin Ratio (1.60-3.17) Ratio Influenza Type A (PCR) Not Detected (Not Detectd) Influenza Type B (PCR) Not Detected (Not Detectd) RSV (PCR) Not Detected (Not Detectd) SARS-CoV-2 (PCR) Not Detected (Not Detectd) 01/23/24 01/24/24 01/24/24 Range/Units 23:20 03:24 03:24 WBC 25.79 H (3.8-10.6) k/uL RBC 3.26 L (3.80-5.40) m/uL Hgb 10.1 L (11.4-16.0) gm/dL Hct 29.7 L (34.0-46.0) % MCV 91.1 (80.0-100.0) fL MCH 31.0 (25.0-35.0) pg MCHC 34.0 (31.0-37.0) g/dL RDW 14.6 H (11.5-15.5) % Plt Count 298 (150-450) k/uL Estimated Plt Count Adequate (Adequate) MPV 9.7 Immature Gran % (Auto) 0.90 % Absolute Nucleated RBC 0 % Neutrophils % 86.1 % Lymphocytes % 6.7 % Monocytes % 6.1 % Eosinophils % 0 % Basophils % 0.2 % Immature Gran # 0.22 H (0.00-0.04) X 10*3/uL Neutrophils # 22.22 H (1.3-7.7) k/uL Lymphocytes # 1.73 (1.0-4.8) k/uL Monocytes # 1.57 H (0-1.0) k/uL Eosinophils # 0.01 L (0-0.7) k/uL Basophils # 0.04 (0-0.2) k/uL NRBC/100 WBC Diff 0 (0.00-0.01) X 10*3/uL Manual Slide Review Morph Only RBC Morphology Normal (Normal) ESR 98 H (0-30) mm/Hr PT (10.0-12.5) sec INR (<1.2) APTT (22.0-30.0) sec Sodium 126 L (137-145) mmol/L Potassium 4.2 (3.5-5.1) mmol/L Chloride 93 L (98-107) mmol/L Carbon Dioxide 20.3 L (22-30) mmol/L Anion Gap 12.70 H mmol/L BUN 41.3 H (7-17) mg/dL Creatinine 2.4 H (0.52-1.04) mg/dL Est GFR (CKD-EPI) 20 L (>=60) Est GFR (CKD-EPI)AfAm (>60 ml/min/1.73 sqM) Est GFR (CKD-EPI)NonAf (>60 ml/min/1.73 sqM) BUN/Creatinine Ratio 17.21 (12.00-20.00) Ratio Glucose 210 H (74-99) mg/dL POC Glucose (mg/dL) (70-110) mg/dL POC Glu Patient Care Director ID Plasma Lactic Acid Nolan (0.7-2.0) mmol/L Calcium 8.5 L (8.4-10.2) mg/dL Phosphorus 4.5 (2.5-4.5) mg/dL Magnesium 1.4 L (1.6-2.3) mg/dL Total Bilirubin 0.4 (0.2-1.3) mg/dL AST 42 H (14-36) U/L ALT 73 H (4-34) U/L Alkaline Phosphatase 170 H (38-126) U/L C-Reactive Protein (<1.0) mg/dL Total Protein 6.3 (6.3-8.2) g/dL Albumin 2.7 L (3.5-5.0) g/dL Globulin 3.6 H (1.6-3.3) g/dL Albumin/Globulin Ratio 0.75 L (1.60-3.17) Ratio Influenza Type A (PCR) (Not Detectd) Influenza Type B (PCR) (Not Detectd) RSV (PCR) (Not Detectd) SARS-CoV-2 (PCR) (Not Detectd) 01/24/24 01/24/24 Range/Units 05:32 07:26 WBC (3.8-10.6) k/uL RBC (3.80-5.40) m/uL Hgb (11.4-16.0) gm/dL Hct (34.0-46.0) % MCV (80.0-100.0) fL MCH (25.0-35.0) pg MCHC (31.0-37.0) g/dL RDW (11.5-15.5) % Plt Count (150-450) k/uL Estimated Plt Count (Adequate) MPV Immature Gran % (Auto) % Absolute Nucleated RBC % Neutrophils % % Lymphocytes % % Monocytes % % Eosinophils % % Basophils % % Immature Gran # (0.00-0.04) X 10*3/uL Neutrophils # (1.3-7.7) k/uL Lymphocytes # (1.0-4.8) k/uL Monocytes # (0-1.0) k/uL Eosinophils # (0-0.7) k/uL Basophils # (0-0.2) k/uL NRBC/100 WBC Diff (0.00-0.01) X 10*3/uL Manual Slide Review RBC Morphology (Normal) ESR (0-30) mm/Hr PT (10.0-12.5) sec INR (<1.2) APTT (22.0-30.0) sec Sodium (137-145) mmol/L Potassium (3.5-5.1) mmol/L Chloride (98-107) mmol/L Carbon Dioxide (22-30) mmol/L Anion Gap mmol/L BUN (7-17) mg/dL Creatinine (0.52-1.04) mg/dL Est GFR (CKD-EPI) (>=60) Est GFR (CKD-EPI)AfAm (>60 ml/min/1.73 sqM) Est GFR (CKD-EPI)NonAf (>60 ml/min/1.73 sqM) BUN/Creatinine Ratio (12.00-20.00) Ratio Glucose (74-99) mg/dL POC Glucose (mg/dL) 200 H 188 H (70-110) mg/dL POC Glu Patient Care Director ID Haley Singleton Lynn Plasma Lactic Acid Nolan (0.7-2.0) mmol/L Calcium (8.4-10.2) mg/dL Phosphorus (2.5-4.5) mg/dL Magnesium (1.6-2.3) mg/dL Total Bilirubin (0.2-1.3) mg/dL AST (14-36) U/L ALT (4-34) U/L Alkaline Phosphatase (38-126) U/L C-Reactive Protein (<1.0) mg/dL Total Protein (6.3-8.2) g/dL Albumin (3.5-5.0) g/dL Globulin (1.6-3.3) g/dL Albumin/Globulin Ratio (1.60-3.17) Ratio Influenza Type A (PCR) (Not Detectd) Influenza Type B (PCR) (Not Detectd) RSV (PCR) (Not Detectd) SARS-CoV-2 (PCR) (Not Detectd) Disposition <Autumn Abreu - Last Filed: 01/23/24 20:49> Time of Disposition: 22:40 <Pool Scott - Last Filed: 01/26/24 21:56> Clinical Impression: Diabetic foot ulcer, Weakness, Ulcer of right ankle, Gangrene, Gangrene of toe of right foot Disposition: ADMITTED IP TO THIS HOSP Condition: Fair
[2024-01-23 22:34] LABS: Basophils # (A) 0.1 k/uL (0-0.2); Basophils % (A) 0 %; Eosinophils # (A) 0.1 k/uL (0-0.7); Eosinophils % (A) 0 %; HCT 37.2 % (34.0-46.0); Lymphocytes # (A) 1.9 k/uL (1.0-4.8); Lymphocytes % (A) 7 %; MCH 31.8 pg (25.0-35.0); MCHC 33.8 g/dL (31.0-37.0); MCV 94.1 fL (80.0-100.0); Mean Platelet Volume 8.1; Monocytes # (A) 1.1 k/uL (0-1.0); Monocytes % (A) 4 %; Neutrophils # (A) 22.7 k/uL (1.3-7.7); Neutrophils % (A) 87 %; Platelet Count 336 k/uL (150-450); RBC 3.95 m/uL (3.80-5.40); RDW 14.7 % (11.5-15.5); WBC 26.1 k/uL (3.8-10.6)
[2024-01-23 22:39] LABS: ALT 84 U/L (4-34); AST 84 U/L (14-36); African American GFR (CKD) 20 (>60 ml/min/1.73 sqM); Albumin 3.2 g/dL (3.5-5.0); Alkaline Phosphatase 214 U/L (38-126); Anion Gap 9 mmol/L; Blood Urea Nitrogen 46 mg/dL (7-17); Calcium 8.8 mg/dL (8.4-10.2); Carbon Dioxide 19 mmol/L (22-30); Chloride 94 mmol/L (98-107); Glucose 307 mg/dL (74-99); Non-African American GFR(CKD) 17 (>60 ml/min/1.73 sqM); Potassium 5.8 mmol/L (3.5-5.1); Sodium 122 mmol/L (137-145); Total Bilirubin 1.1 mg/dL (0.2-1.3); Total Protein 7.3 g/dL (6.3-8.2)
[2024-01-23 22:40] LABS: HGB 12.6 gm/dL (11.4-16.0)
[2024-01-23] MEDS ORDERED: MORPHINE SULFATE 4 MG/ML SYRINGE IV PRN (22:41)
[2024-01-23] MEDS ORDERED: NALOXONE 0.4 MG/ML 1 ML VIAL IV PRN (22:41)
[2024-01-23] MEDS ORDERED: VANCOMYCIN IV PER PHARMACY 1 EACH MISC MISCELLANE PRN (22:45)
[2024-01-23 22:52] LABS: C Reactive Protein 20.8 mg/dL (<1.0)
[2024-01-23] MEDS: SODIUM CHLORIDE 0.9% 500 ML 500 ML IV STA (23:03)
--- NOTE | 2024-01-23 23:15 | XR ---
EXAMINATION TYPE: XR tibia fibula RT DATE OF EXAM: 01/23/2024 9:14 PM CLINICAL INDICATION:Female, 83 years old with history of Infection; H COMPARISON: TECHNIQUE: XR tibia fibula RT; tibia/fibula was examined in AP and lateral projections. FINDINGS: Generalized osteopenia. No fracture, malalignment, or osseous destructive changes are ident ified. There is bandaging about the ankle and foot with soft tissue irregularity suggested over the l ateral malleolus. This could extend as deep as the bone, especially distally; clinically correlate. N o definite soft tissue gas is seen. There are moderate to heavy arterial vascular calcifications note d. IMPRESSION: 1. Soft tissue irregularity along the lateral aspect of the ankle as described. 2. No acute radiographic abnormality. If persistent concern for osteomyelitis, MRI would be recommen ded over 3 phase bone scan.
[2024-01-23] MEDS: ONDANSETRON 4 MG/2 ML VIAL IVP STA (23:59)
[2024-01-23] MEDS: MORPHINE SULFATE 4 MG/ML SYRINGE IV STA (23:59)
[2024-01-24] MEDS: SODIUM CHLORIDE 0.9% 1,000 ML IV STA
[2024-01-24 00:05] LABS: INR 1.6 (<1.2); Partial Thromboplastin Time 36.5 sec (22.0-30.0); Prothrombin Time 16.2 sec (10.0-12.5)
[2024-01-24 00:09] LABS: Magnesium 1.6 mg/dL (1.6-2.3); Phosphorus 5.4 mg/dL (2.5-4.5)
[2024-01-24] MEDS: SODIUM CHLORIDE 0.9% 1,000 ML IV SCH (00:34)
[2024-01-24] MEDS: VANCOMYCIN 1,250 MG in SODIUM CHLORIDE 0.9% 250 ML IVPB STA (00:34)
--- NOTE | 2024-01-24 00:42 | XR ---
EXAM: XR Chest, 1 View CLINICAL HISTORY: ITS.REASON XR Reason: cough TECHNIQUE: Frontal view of the chest. COMPARISON: No relevant prior studies available. FINDINGS: Lungs: No consolidation. No overt edema. Pleural space: No pleural effusion. No pneumothorax. Heart: Unremarkable. No cardiomegaly. IMPRESSION: No acute cardiopulmonary abnormality.
[2024-01-24] MEDS: ACETAMINOPHEN TAB 325 MG TAB PO PRN (02:46)
[2024-01-24 05:44] LABS: Glucose,Whole Blood 200 mg/dL (70-110)
[2024-01-24 07:28] LABS: Glucose,Whole Blood 188 mg/dL (70-110)
[2024-01-24 09:03] LABS: ALT 73 U/L (8-44); AST 42 U/L (13-35); Albumin 2.7 g/dL (3.8-4.9); Albumin/Globulin Ratio 0.75 Ratio (1.60-3.17); Alkaline Phosphatase 170 U/L (41-126); BUN/Creat Ratio 17.21 Ratio (12.00-20.00); Blood Urea Nitrogen 41.3 mg/dL (9.0-27.0); Calcium 8.5 mg/dL (8.7-10.3); Carbon Dioxide 20.3 mmol/L (21.6-31.8); Chloride 93 mmol/L (96-109); Globulin 3.6 g/dL (1.6-3.3); Glucose 210 mg/dL (70-110); Magnesium 1.4 mg/dL (1.5-2.4); Phosphorus 4.5 mg/dL (2.4-5.1); Potassium 4.2 mmol/L (3.5-5.5); Sodium 126 mmol/L (135-145); Total Bilirubin 0.4 mg/dL (0.3-1.2); Total Protein 6.3 g/dL (6.2-8.2)
[2024-01-24 09:12] LABS: HCT 29.7 % (37.2-46.3); HGB 10.1 g/dL (12.0-15.0); MCV 91.1 FL (80.0-97.0); Mean Platelet Volume 9.7 FL (9.5-12.2); NRBC Per 100 WBC 0 X 10*3/uL (0.00-0.01); Platelet Count 298 X 10*3/uL (140-440); RBC 3.26 X 10*6/uL (4.10-5.20); RDW 14.6 % (11.5-14.5); WBC 25.79 X 10*3/uL (4.50-10.00)
[2024-01-24] MEDS: ATORVASTATIN 20 MG TAB PO SCH (09:39)
[2024-01-24] MEDS: POTASSIUM CHLORIDE ER 10 MEQ TAB.ER.PRT PO SCH (09:39)
[2024-01-24] MEDS: FUROSEMIDE 20 MG TAB PO SCH (09:39)
[2024-01-24] MEDS: RIVAROXABAN 15 MG TAB PO SCH (09:39)
[2024-01-24] MEDS: FOLIC ACID 1 MG TAB PO SCH (09:39)
[2024-01-24] MEDS: SODIUM BICARBONATE TAB 650 MG TAB PO SCH (09:39)
[2024-01-24] MEDS: TAMSULOSIN 0.4 MG CAP.ER.24H PO SCH (09:39)
[2024-01-24] MEDS: DULoxetine HCL 30 MG CAPSULE.DR PO SCH (09:39)
[2024-01-24] MEDS: hydrALAZINE HCL 25 MG TAB PO SCH (09:39)
[2024-01-24 09:51] LABS: Basophils # (A) 0.04 X 10*3/uL (0.00-0.10); Basophils % (A) 0.2 %; Eosinophils # (A) 0.01 X 10*3/uL (0.04-0.35); Eosinophils % (A) 0 %; Lymphocytes # (A) 1.73 X 10*3/uL (0.90-5.00); Lymphocytes % (A) 6.7 %; Monocytes # (A) 1.57 X 10*3/uL (0.20-1.00); Monocytes % (A) 6.1 %; Neutrophils # (A) 22.22 X 10*3/uL (1.80-7.70); Neutrophils % (A) 86.1 %; RBC Morphology Normal (Normal)
--- NOTE | 2024-01-24 10:36 | P.GSCN ---
History of Present Illness Consult date: 01/24/24 Reason for Consult: Known Requesting physician: Pool Scott History of present illness: This is a 83-year-old female known to vascular surgery with a history of chronic nonhealing wounds. She has got a past medical history including left kvasi-roq-iuzb amputation and right lower extremity chronic wounds, morbid obesity, diabetes mellitus, atrial fibrillation, heart failure, CVA/TIA, hyperlipidemia, hypertension and chronic renal disease. She presented to the emergency department for concerns of infection of right lower extremity. Apparently she has a new right lower extremity wound there was increased redness and patient was starting to feel chills and bodyaches and had a low-grade fever at home. She was admitted for IV antibiotics. She has been seen multiple times by vascular surgery and patient has declined any further surgical intervention including debridements and or recommended amputation of right lower extremity. This has been discussed multiple times with patient and family and plan is for just continued local wound care. Patient states she had been getting wound care in the past with Dr. Campos. She denies any known injury causing the new wound. She has current wound to her lateral aspect of her right ankle and dry gangrene toes. She had a low-grade fever last night with a temperature of 100.1, but afebrile this morning. Blood cultures pending. Patient is a NO CODE. She currently denies any fevers or chills, no pain in the right lower extremity but that is normal for her with her neuropathy, no current chills, body aches, abdominal pain, nausea or vomiting. No complaints of shortness of breath or chest pain at this time. Review of Systems A 14 point review systems was completed all pertinent positives and negatives as stated in the HPI. Past Medical History Past Medical History: Atrial Fibrillation, Heart Failure, CVA/TIA, Diabetes Mellitus, Hyperlipidemia, Hypertension, Renal Disease Additional Past Medical History / Comment(s): wound rt ankle and R great toe, L BKA, kidney failure, "slight stroke" 10years ago, CVA mild R sided weakness, frequent UTIs. 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 MDRO Source:: Urine Past Surgical History: Cholecystectomy, Orthopedic Surgery Additional Past Surgical History / Comment(s): left foot all toes amputated 2021; LAKA, hematoma removal abdomen Past Anesthesia/Blood Transfusion Reactions: No Reported Reaction Past Psychological History: No Psychological Hx Reported Additional Psychological History / Comment(s): Pt resides with kelly. W/C bound. One person transfer. Smoking Status: Never smoker Past Alcohol Use History: None Reported Past Drug Use History: None Reported - Past Family History Sister(s) Family Medical History: Cancer Additional Family Medical History / Comment(s): Renal cancer. Brother(s) Family Medical History: Cancer Additional Family Medical History / Comment(s): Renal cancer Medications and Allergies Home Medications Medication Instructions Recorded Confirmed Type Folic Acid 1 mg PO DAILY 02/20/22 01/24/24 History Potassium Chloride ER [K-Dur 10] 10 meq PO DAILY 02/20/22 01/24/24 History Tamsulosin HCl [Flomax] 0.4 mg PO DAILY 02/20/22 01/24/24 History Empagliflozin [Jardiance] 10 mg PO DAILY 04/26/22 01/24/24 History Furosemide [Lasix] 20 mg PO DAILY 04/26/22 01/24/24 History Insulin Aspart [NovoLOG Flexpen] See Protocol SQ AC-TID 11/07/22 01/24/24 History Sodium Bicarbonate Tab 650 mg PO DAILY 07/30/23 01/24/24 History Ondansetron [Zofran] 4 mg PO AC-BRKFST 09/15/23 01/24/24 History Rivaroxaban [Xarelto] 15 mg PO DAILY 10/04/23 01/24/24 History DULoxetine HCL [Cymbalta] 30 mg PO DAILY 10/11/23 01/24/24 History Insulin Glargine,Hum.rec.anlog 10 units SQ DAILY 10/11/23 01/24/24 History [Lantus Solostar Pen] Atorvastatin [Lipitor] 20 mg PO DAILY 01/24/24 01/24/24 History Dulaglutide [Trulicity] 1.5 mg SQ FR 01/24/24 01/24/24 History Insulin Aspart [NovoLOG Flexpen] 3 units SQ AC-TID 01/24/24 01/24/24 History hydrALAZINE HCL [Apresoline] 25 mg PO BID 01/24/24 01/24/24 History Allergies Allergy/AdvReac Type Severity Reaction Status Date / Time aspirin Allergy Severe Anaphylaxis Verified 01/23/24 20:07 Surgical - Exam Vital Signs Temp Pulse Resp BP Pulse Ox 97.7 F 95 16 106/58 97 01/23/24 20:04 01/23/24 20:04 01/23/24 20:04 01/23/24 20:04 01/23/24 20:04 General appearance: The patient is alert, oriented, appears in no acute distress. Obese. HET: Head is normocephalic and atraumatic. Pupils are equal and reactive. Neck: Supple. Heart: Regular. Lungs: Equal expansion, normal respiratory effort. Abdomen: Soft, nondistended. Extremities: Left nella-yjo-maup amputation stump well-healed. Right lower extremity, lateral aspect of right ankle with pressure wound with granulation measuring 5.5 x 3 cm, lower extremity wound measuring 2 cm x 1 and half centimeters with tendon exposure and some nonviable tissue no purulent drainage noted. 1st through 3rd toes with dry gangrene. Neurological: No focal deficits. Alert and oriented. Results - Labs 01/24/24 03:24 01/24/24 03:24 Abnormal Lab Results - Last 24 Hours (Table) 01/23/24 01/23/24 01/23/24 Range/Units 22:18 22:18 23:10 WBC 26.1 H (3.8-10.6) k/uL Neutrophils # 22.7 H (1.3-7.7) k/uL Monocytes # 1.1 H (0-1.0) k/uL ESR (0-30) mm/Hr PT 16.2 H (10.0-12.5) sec INR 1.6 H (<1.2) APTT 36.5 H (22.0-30.0) sec Sodium 122 L (137-145) mmol/L Potassium 5.8 H (3.5-5.1) mmol/L Chloride 94 L (98-107) mmol/L Carbon Dioxide 19 L (22-30) mmol/L BUN 46 H (7-17) mg/dL Creatinine 2.52 H (0.52-1.04) mg/dL Glucose 307 H (74-99) mg/dL POC Glucose (mg/dL) (70-110) mg/dL Phosphorus (2.5-4.5) mg/dL AST 84 H (14-36) U/L ALT 84 H (4-34) U/L Alkaline Phosphatase 214 H (38-126) U/L C-Reactive Protein 20.8 H (<1.0) mg/dL Albumin 3.2 L (3.5-5.0) g/dL 01/23/24 01/23/24 01/24/24 Range/Units 23:10 23:20 05:32 WBC (3.8-10.6) k/uL Neutrophils # (1.3-7.7) k/uL Monocytes # (0-1.0) k/uL ESR 98 H (0-30) mm/Hr PT (10.0-12.5) sec INR (<1.2) APTT (22.0-30.0) sec Sodium (137-145) mmol/L Potassium (3.5-5.1) mmol/L Chloride (98-107) mmol/L Carbon Dioxide (22-30) mmol/L BUN (7-17) mg/dL Creatinine (0.52-1.04) mg/dL Glucose (74-99) mg/dL POC Glucose (mg/dL) 200 H (70-110) mg/dL Phosphorus 5.4 H (2.5-4.5) mg/dL AST (14-36) U/L ALT (4-34) U/L Alkaline Phosphatase (38-126) U/L C-Reactive Protein (<1.0) mg/dL Albumin (3.5-5.0) g/dL 01/24/24 Range/Units 07:26 WBC (3.8-10.6) k/uL Neutrophils # (1.3-7.7) k/uL Monocytes # (0-1.0) k/uL ESR (0-30) mm/Hr PT (10.0-12.5) sec INR (<1.2) APTT (22.0-30.0) sec Sodium (137-145) mmol/L Potassium (3.5-5.1) mmol/L Chloride (98-107) mmol/L Carbon Dioxide (22-30) mmol/L BUN (7-17) mg/dL Creatinine (0.52-1.04) mg/dL Glucose (74-99) mg/dL POC Glucose (mg/dL) 188 H (70-110) mg/dL Phosphorus (2.5-4.5) mg/dL AST (14-36) U/L ALT (4-34) U/L Alkaline Phosphatase (38-126) U/L C-Reactive Protein (<1.0) mg/dL Albumin (3.5-5.0) g/dL Diabetes panel 01/23/24 Range/Units 22:18 Sodium 122 L (137-145) mmol/L Potassium 5.8 H (3.5-5.1) mmol/L Chloride 94 L (98-107) mmol/L Carbon Dioxide 19 L (22-30) mmol/L BUN 46 H (7-17) mg/dL Creatinine 2.52 H (0.52-1.04) mg/dL Glucose 307 H (74-99) mg/dL Calcium 8.8 (8.4-10.2) mg/dL AST 84 H (14-36) U/L ALT 84 H (4-34) U/L Alkaline Phosphatase 214 H (38-126) U/L Total Protein 7.3 (6.3-8.2) g/dL Albumin 3.2 L (3.5-5.0) g/dL Calcium panel 01/23/24 01/23/24 Range/Units 22:18 23:10 Calcium 8.8 (8.4-10.2) mg/dL Phosphorus 5.4 H (2.5-4.5) mg/dL Albumin 3.2 L (3.5-5.0) g/dL Pituitary panel 01/23/24 Range/Units 22:18 Sodium 122 L (137-145) mmol/L Potassium 5.8 H (3.5-5.1) mmol/L Chloride 94 L (98-107) mmol/L Carbon Dioxide 19 L (22-30) mmol/L BUN 46 H (7-17) mg/dL Creatinine 2.52 H (0.52-1.04) mg/dL Glucose 307 H (74-99) mg/dL Calcium 8.8 (8.4-10.2) mg/dL Adrenal panel 01/23/24 Range/Units 22:18 Sodium 122 L (137-145) mmol/L Potassium 5.8 H (3.5-5.1) mmol/L Chloride 94 L (98-107) mmol/L Carbon Dioxide 19 L (22-30) mmol/L BUN 46 H (7-17) mg/dL Creatinine 2.52 H (0.52-1.04) mg/dL Glucose 307 H (74-99) mg/dL Calcium 8.8 (8.4-10.2) mg/dL Total Bilirubin 1.1 (0.2-1.3) mg/dL AST 84 H (14-36) U/L ALT 84 H (4-34) U/L Alkaline Phosphatase 214 H (38-126) U/L Total Protein 7.3 (6.3-8.2) g/dL Albumin 3.2 L (3.5-5.0) g/dL - Imaging Comments: Right tib-fib x-ray reports soft tissue irregularity along the lateral aspect of the ankle as described. No acute radiographic abnormality. If persistent concern for osteomyelitis, MRI would be recommended over three-phase bone scan. Assessment and Plan Assessment: 1. Right lower extremity diabetic wounds 2. Right foot dry gangrene toes 1 through 3 3. History of ischemic left lower extremity status post vborc-vhc-ssbe amputation 4. Diabetes mellitus 5. Peripheral neuropathy 6. Peripheral arterial disease 7. History of atrial fibrillation 9. History of hypertension 10. Chronic renal disease 11. Obesity Plan: Patient has been seen multiple times by vascular surgery discussion has been had multiple times with patient and family regarding treatment plan and patient is not interested in any surgical intervention or amputations including debridement. Continue with local wound care per infectious disease and their further recommendations if antibiotics are recommended. Continue rest of medical management per primary medical team. Thank you for this consultation, we will sign off at this time. The impression and plan of care has been dictated as directed. I performed a history and examination of this patient, discussed the same with the dictator. I agree with the dictator's note ,documented as a scribe. Any additional findings or plans will be noted.
[2024-01-24 12:03] LABS: Glucose,Whole Blood 254 mg/dL (70-110)
[2024-01-24] MEDS: INSULIN ASPART (NovoLOG) 100 UNIT/ML VIAL SQ SCH (12:50)
--- NOTE | 2024-01-24 15:19 | P.HPIM ---
History of Present Illness H&P Date: 01/24/24 Patient is an 83-year-old female with a history of diabetes mellitus type 2 and chronic nonhealing wounds who presents to the emergency department for erythematous right lower extremity wound that appears to be worsening according to her family. Family believes that she may be having fevers. Patient started on IV Rocephin and vancomycin. She has a history of left lower extremity amputations for similar concerns. She endorses fever last night but not currently. She denies chills, nausea, vomiting, body aches, abdominal pain, shortness of breath, chest pain, or extremity pain. On admission: Checks x-ray unremarkable. Right tib-fib x-ray unremarkable. WBCs 26.1, hemoglobin 12.6, ESR 98, sodium 122, potassium 5.8, BUN 46, creatinine 2.52, glucose 307, phosphorus 5.4, alkaline phosphatase 214, CRP 20.8, albumin 3.2. Blood pressure systolic in the 150s ED documentation reviewed. Review of systems: Pertinent positives and negatives as discussed in HPI, a complete review of systems was performed and all other systems are negative. 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 Physical examination: Vital signs reviewed General: non toxic, no distress, obese Derm: no unusual rashes/lesions, warm Head: atraumatic, normocephalic, symmetric Eyes: EOMI, no lid lag, anicteric sclera, pupils equal round reactive to light ENT: Nose and ears atraumatic Neck: No cervical lymphadenopathy, trachea midline, supple Mouth: no lip lesion, mucus membranes moist Cardiovascular: S1S2, regular rate and rhythm, no murmurs, rubs, gallops Lungs: CTA bilateral, no rhonchi, no rales, no accessory muscle use Abdominal: soft, nontender to palpation, no guarding Ext: L AKA well-healed; right lower extremity: lateral aspect of ankle with pressure wound with granulation, anterior ankle wound with tendon exposure and some nonviable tissue, no purulent drainage noted, 1st3rd toes with dry gangrene Neuro: CN II-XI grossly intact, no gross focal neuro deficits Psych: Alert, oriented, appropriate affect and mood Assessment/Plan: #. Right lower extremity wounds #. Right foot dry gangrene of toes 13 Debridement/amputation - patient and family decline Local wound care per infectious disease #. Hyperkalemia, secondary to chronic kidney disease Replete potassium #. Hypovolemic hyponatremia Continue fluids #. Leukocytosis due to sepsis IV Rocephin IV vancomycin #. Diabetes mellitus type 2 Monitor glucose control Discontinue Farxiga due to CKD stage IV #. Paroxysmal atrial fibrillation Hold Xarelto Start Eliquis DVT prophylaxis: Eliquis Chronic conditions: Atrial fibrillation maintained on Xarelto, HFpEF 50 to 55% 02/21/2022, diabetes mellitus type 2, chronic kidney disease stage IV, hypertension, hyperlipidemia, peripheral neuropathy, peripheral arterial disease The patient is admitted with an anticipated less than 2 midnight stay for evaluation of diabetic foot wounds. CODE STATUS: NO CODE Discussed with: Patient Anticipated discharge place: Home with home hospice Past Medical History Past Medical History: Atrial Fibrillation, Heart Failure, CVA/TIA, Diabetes Mellitus, Hyperlipidemia, Hypertension, Renal Disease Additional Past Medical History / Comment(s): wound rt ankle and R great toe, L BKA, kidney failure, "slight stroke" 10years ago, CVA mild R sided weakness, frequent UTIs. History of Any Multi-Drug Resistant Organisms: MRSA Date of last positivie culture/infection: 2018 approx. MDRO Source:: Urine Past Surgical History: Cholecystectomy, Orthopedic Surgery Additional Past Surgical History / Comment(s): left foot all toes amputated 2021; LAKA, hematoma removal abdomen Past Anesthesia/Blood Transfusion Reactions: No Reported Reaction Past Psychological History: No Psychological Hx Reported Additional Psychological History / Comment(s): Pt resides with kelly. W/C bound. One person transfer. Smoking Status: Never smoker Past Alcohol Use History: None Reported Past Drug Use History: None Reported - Past Family History Sister(s) Family Medical History: Cancer Additional Family Medical History / Comment(s): Renal cancer. Brother(s) Family Medical History: Cancer Additional Family Medical History / Comment(s): Renal cancer Medications and Allergies Home Medications Medication Instructions Recorded Confirmed Type Folic Acid 1 mg PO DAILY 02/20/22 01/24/24 History Potassium Chloride ER [K-Dur 10] 10 meq PO DAILY 02/20/22 01/24/24 History Tamsulosin HCl [Flomax] 0.4 mg PO DAILY 02/20/22 01/24/24 History Empagliflozin [Jardiance] 10 mg PO DAILY 04/26/22 01/24/24 History Furosemide [Lasix] 20 mg PO DAILY 04/26/22 01/24/24 History Insulin Aspart [NovoLOG Flexpen] See Protocol SQ AC-TID 11/07/22 01/24/24 History Sodium Bicarbonate Tab 650 mg PO DAILY 07/30/23 01/24/24 History Ondansetron [Zofran] 4 mg PO AC-BRKFST 09/15/23 01/24/24 History Rivaroxaban [Xarelto] 15 mg PO DAILY 10/04/23 01/24/24 History DULoxetine HCL [Cymbalta] 30 mg PO DAILY 10/11/23 01/24/24 History Insulin Glargine,Hum.rec.anlog 10 units SQ DAILY 10/11/23 01/24/24 History [Lantus Solostar Pen] Atorvastatin [Lipitor] 20 mg PO DAILY 01/24/24 01/24/24 History Dulaglutide [Trulicity] 1.5 mg SQ FR 01/24/24 01/24/24 History Insulin Aspart [NovoLOG Flexpen] 3 units SQ AC-TID 01/24/24 01/24/24 History hydrALAZINE HCL [Apresoline] 25 mg PO BID 01/24/24 01/24/24 History Allergies Allergy/AdvReac Type Severity Reaction Status Date / Time aspirin Allergy Severe Anaphylaxis Verified 01/23/24 20:07 Physical Exam Vitals: Vital Signs Temp Pulse Pulse Resp BP BP Pulse Ox 01/24/24 02:00 100.1 F H 106 H 14 154/55 100 01/24/24 01:12 98.4 F 14 157/65 100 01/24/24 00:08 87 16 154/81 100 01/23/24 23:07 98.3 F 01/23/24 20:04 97.7 F 95 16 106/58 97 Intake and Output 01/23/24 01/24/24 01/24/24 22:59 06:59 14:59 Intake Total 475 Balance 475 Intake: Intake, IV Titration 475 Amount Sodium Chloride 0.9% 1, 225 000 ml @ 75 mls/hr IV . [id number] [facility] Rx#:[id number] Vancomycin 1,250 mg In 250 Sodium Chloride 0.9% 250 ml @ 125 mls/hr IVPB ONCE STA Rx#:[id number] Other: Voiding Method Diaper Weight 66.224 kg 66.224 kg Results CBC & Chem 7: 01/24/24 03:24 01/24/24 03:24 Labs: Abnormal Lab Results - Last 24 Hours (Table) 01/23/24 01/23/24 01/23/24 Range/Units 22:18 22:18 23:10 WBC 26.1 H (3.8-10.6) k/uL Neutrophils # 22.7 H (1.3-7.7) k/uL Monocytes # 1.1 H (0-1.0) k/uL ESR (0-30) mm/Hr PT 16.2 H (10.0-12.5) sec INR 1.6 H (<1.2) APTT 36.5 H (22.0-30.0) sec Sodium 122 L (137-145) mmol/L Potassium 5.8 H (3.5-5.1) mmol/L Chloride 94 L (98-107) mmol/L Carbon Dioxide 19 L (22-30) mmol/L BUN 46 H (7-17) mg/dL Creatinine 2.52 H (0.52-1.04) mg/dL Glucose 307 H (74-99) mg/dL POC Glucose (mg/dL) (70-110) mg/dL Phosphorus (2.5-4.5) mg/dL AST 84 H (14-36) U/L ALT 84 H (4-34) U/L Alkaline Phosphatase 214 H (38-126) U/L C-Reactive Protein 20.8 H (<1.0) mg/dL Albumin 3.2 L (3.5-5.0) g/dL 01/23/24 01/23/24 01/24/24 Range/Units 23:10 23:20 05:32 WBC (3.8-10.6) k/uL Neutrophils # (1.3-7.7) k/uL Monocytes # (0-1.0) k/uL ESR 98 H (0-30) mm/Hr PT (10.0-12.5) sec INR (<1.2) APTT (22.0-30.0) sec Sodium (137-145) mmol/L Potassium (3.5-5.1) mmol/L Chloride (98-107) mmol/L Carbon Dioxide (22-30) mmol/L BUN (7-17) mg/dL Creatinine (0.52-1.04) mg/dL Glucose (74-99) mg/dL POC Glucose (mg/dL) 200 H (70-110) mg/dL Phosphorus 5.4 H (2.5-4.5) mg/dL AST (14-36) U/L ALT (4-34) U/L Alkaline Phosphatase (38-126) U/L C-Reactive Protein (<1.0) mg/dL Albumin (3.5-5.0) g/dL 01/24/24 Range/Units 07:26 WBC (3.8-10.6) k/uL Neutrophils # (1.3-7.7) k/uL Monocytes # (0-1.0) k/uL ESR (0-30) mm/Hr PT (10.0-12.5) sec INR (<1.2) APTT (22.0-30.0) sec Sodium (137-145) mmol/L Potassium (3.5-5.1) mmol/L Chloride (98-107) mmol/L Carbon Dioxide (22-30) mmol/L BUN (7-17) mg/dL Creatinine (0.52-1.04) mg/dL Glucose (74-99) mg/dL POC Glucose (mg/dL) 188 H (70-110) mg/dL Phosphorus (2.5-4.5) mg/dL AST (14-36) U/L ALT (4-34) U/L Alkaline Phosphatase (38-126) U/L C-Reactive Protein (<1.0) mg/dL Albumin (3.5-5.0) g/dL Thrombosis Risk Factor Assmnt - Choose All That Apply Any of the Below Risk Factors Present?: No Other Risk Factors: Yes Each Risk Factor Represents 3 Points: Age 75 years or older, Family history of DVT/PE Thrombosis Risk Factor Assessment Total Risk Factor Score: 6 Thrombosis Risk Factor Assessment Level: High Risk
[2024-01-24 17:08] LABS: Glucose,Whole Blood 247 mg/dL (70-110)
[2024-01-24 19:56] LABS: Glucose,Whole Blood 270 mg/dL (70-110)
[2024-01-24] MEDS: INSULIN DETEMIR (LEVEMIR) 100 UNIT/ML SYR SQ SCH (21:10)
[2024-01-24] MEDS: VANCOMYCIN 1,250 MG in SODIUM CHLORIDE 0.9% 250 ML IVPB ONE (22:18)
[2024-01-25 07:24] LABS: Glucose,Whole Blood 66 mg/dL (70-110)
[2024-01-25 07:52] LABS: Glucose,Whole Blood 86 mg/dL (70-110)
[2024-01-25] MEDS: APIXABAN 2.5 MG TABLET PO SCH (08:08)
--- NOTE | 2024-01-25 08:18 | P.CONS ---
History of Present Illness - Reason for Consult Consult date: 01/24/24 Right foot cellulitis Requesting physician: Faviola Robert - Chief Complaint Right foot worsening wound and redness x days - History of Present Illness Patient is a 83-year-old female with a past medical history negative for diabetes mellitus hypertension hyperlipidemia chronic renal insufficiency CVA TIA history of diabetic foot infection in this patient who is status post left zebhe-haf-ehng amputation with a recent admission to the hospital with right foot toes gangrene and osteomyelitis that has been treated with a course of antibiotic patient has not been brought back to the hospital concerning for wound to the right lower chin as well as the redness that has been spreading patient also have a wound to the right lateral malleolar area that seem to have increased in size as he was some drainage patient on presentation to the hospital was afebrile however he did spike a fever 100.1 F at 2 AM patient was tachycardic on admission that has resolved not hypoxic or hypotensive did have white count of 26.1 with a left shift BUN and creatinine has been elevated liver enzymes mildly elevated with elevated CRP tested negative for influenza RSV and COVID blood cultures obtained which are currently pending no local culture was done patient did have a x-ray of the tibia and fibula soft tissue irregularity along the lateral aspect of the ankle no acute bony abnormality patient was started on vancomycin and ceftriaxone infectious disease was consulted for critical access hospital er management of antibiotic therapy Review of Systems Positive point and negatives has been mentioned in the HPI, complete review of systems was performed and all other systems are negative Past Medical History Past Medical History: Atrial Fibrillation, Heart Failure, CVA/TIA, Diabetes Mellitus, Hyperlipidemia, Hypertension, Renal Disease Additional Past Medical History / Comment(s): wound rt ankle and R great toe, L BKA, kidney failure, "slight stroke" 10years ago, CVA mild R sided weakness, frequent UTIs. 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 MDRO Source:: Urine Past Surgical History: Cholecystectomy, Orthopedic Surgery Additional Past Surgical History / Comment(s): left foot all toes amputated 2021; [facility], hematoma removal abdomen Past Anesthesia/Blood Transfusion Reactions: No Reported Reaction Past Psychological History: No Psychological Hx Reported Additional Psychological History / Comment(s): Pt resides with kelly. W/C bound. One person transfer. Smoking Status: Never smoker Past Alcohol Use History: None Reported Past Drug Use History: None Reported - Past Family History Sister(s) Family Medical History: Cancer Additional Family Medical History / Comment(s): Renal cancer. Brother(s) Family Medical History: Cancer Additional Family Medical History / Comment(s): Renal cancer Medications and Allergies Home Medications Medication Instructions Recorded Confirmed Type Folic Acid 1 mg PO DAILY 02/20/22 01/24/24 History Potassium Chloride ER [K-Dur 10] 10 meq PO DAILY 02/20/22 01/24/24 History Tamsulosin HCl [Flomax] 0.4 mg PO DAILY 02/20/22 01/24/24 History Empagliflozin [Jardiance] 10 mg PO DAILY 04/26/22 01/24/24 History Furosemide [Lasix] 20 mg PO DAILY 04/26/22 01/24/24 History Insulin Aspart [NovoLOG Flexpen] See Protocol SQ AC-TID 11/07/22 01/24/24 Hi story Sodium Bicarbonate Tab 650 mg PO DAILY 07/30/23 01/24/24 History Ondansetron [Zofran] 4 mg PO AC-BRKFST 09/15/23 01/24/24 History Rivaroxaban [Xarelto] 15 mg PO DAILY 10/04/23 01/24/24 History DULoxetine HCL [Cymbalta] 30 mg PO DAILY 10/11/23 01/24/24 History Insulin Glargine,Hum.rec.anlog 10 units SQ DAILY 10/11/23 01/24/24 History [Lantus Solostar Pen] Atorvastatin [Lipitor] 20 mg PO DAILY 01/24/24 01/24/24 History Dulaglutide [Trulicity] 1.5 mg SQ FR 01/24/24 01/24/24 History Insulin Aspart [NovoLOG Flexpen] 3 units SQ AC-TID 01/24/24 01/24/24 History hydrALAZINE HCL [Apresoline] 25 mg PO BID 01/24/24 01/24/24 History Allergies Allergy/AdvReac Type Severity Reaction Status Date / Time aspirin Allergy Severe Anaphylaxis Verified 01/23/24 20:07 Physical Exam Vitals: Vital Signs Temp Pulse Pulse Resp BP BP Pulse Ox 01/24/24 07:23 97.6 F 66 15 128/68 100 01/24/24 02:00 100.1 F H 106 H 14 154/55 100 01/24/24 01:12 98.4 F 14 157/65 100 01/24/24 00:08 87 16 154/81 100 01/23/24 23:07 98.3 F 01/23/24 20:04 97.7 F 95 16 106/58 97 Intake and Output 01/23/24 01/24/24 01/24/24 22:59 06:59 14:59 Intake Total 475 240 Balance 475 240 Intake: Intake, IV Titration 475 Amount Sodium Chloride 0.9% 1, 225 000 ml @ 75 mls/hr IV . [id number] [facility] Rx#:[id number] Vancomycin 1,250 mg In 250 Sodium Chloride 0.9% 250 ml @ 125 mls/hr IVPB ONCE STA Rx#:[id number] Oral 240 Other: Voiding Method Diaper Diaper Weight 66.224 kg 66.224 kg GENERAL DESCRIPTION: Elderly female lying in bed, no distress. No tachypnea or accessory muscle of respiration use. HEENT: Shows Pallor , no scleral icterus. Oral mucous membrane is dry. No pharyngeal erythema or thrush NECK: Trachea central, no thyromegaly. LUNGS: Unlabored breathing. Clear to auscultation anteriorly. No wheeze or crackle. HEART: S1, S2, regular rate and rhythm. No loud murmur ABDOMEN: Soft, no tenderness , guarding or rigidity, no organomegaly EXTREMITIES: Right foot toes wounds are drying out patient did have a wound on the lateral malleolus which is draining he did have some swelling and warmth to the right lower leg SKIN: No rash, no masses palpable. NEUROLOGICAL: The patient is awake, alert, oriented x3, mood and affect normal. Results CBC & Chem 7: 01/24/24 03:24 01/24/24 03:24 Labs: Abnormal Lab Results - Last 24 Hours (Table) 01/23/24 01/23/24 01/23/24 Range/Units 22:18 22:18 23:10 WBC 26.1 H (3.8-10.6) k/uL RBC (4.10-5.20) X 10*6/uL Hgb (12.0-15.0) g/dL Hct (37.2-46.3) % RDW (11.5-14.5) % Immature Gran # (0.00-0.04) X 10*3/uL Neutrophils # 22.7 H (1.3-7.7) k/uL Monocytes # 1.1 H (0-1.0) k/uL Eosinophils # (0.04-0.35) X 10*3/uL ESR (0-30) mm/Hr PT 16.2 H (10.0-12.5) sec INR 1.6 H (<1.2) APTT 36.5 H (22.0-30.0) sec Sodium 122 L (137-145) mmol/L Potassium 5.8 H (3.5-5.1) mmol/L Chloride 94 L (98-107) mmol/L Carbon Dioxide 19 L (22-30) mmol/L Anion Gap (4.00-12.00) mmol/L BUN 46 H (7-17) mg/dL Creatinine 2.52 H (0.52-1.04) mg/dL Est GFR (CKD-EPI) (>=60) Glucose 307 H (74-99) mg/dL POC Glucose (mg/dL) (70-110) mg/dL Calcium (8.7-10.3) mg/dL Phosphorus (2.5-4.5) mg/dL Magnesium (1.5-2.4) mg/dL AST 84 H (14-36) U/L ALT 84 H (4-34) U/L Alkaline Phosphatase 214 H (38-126) U/L C-Reactive Protein 20.8 H (<1.0) mg/dL Albumin 3.2 L (3.5-5.0) g/dL Globulin (1.6-3.3) g/dL Albumin/Globulin Ratio (1.60-3.17) Ratio 01/23/24 01/23/24 01/24/24 Range/Units 23:10 23:20 03:24 WBC (3.8-10.6) k/uL RBC (4.10-5.20) X 10*6/uL Hgb (12.0-15.0) g/dL Hct (37.2-46.3) % RDW (11.5-14.5) % Immature Gran # (0.00-0.04) X 10*3/uL Neutrophils # (1.3-7.7) k/uL Monocytes # (0-1.0) k/uL Eosinophils # (0.04-0.35) X 10*3/uL ESR 98 H (0-30) mm/Hr PT (10.0-12.5) sec INR (<1.2) APTT (22.0-30.0) sec Sodium 126 L (137-145) mmol/L Potassium (3.5-5.1) mmol/L Chloride 93 L (98-107) mmol/L Carbon Dioxide 20.3 L (22-30) mmol/L Anion Gap 12.70 H (4.00-12.00) mmol/L BUN 41.3 H (7-17) mg/dL Creatinine 2.4 H (0.52-1.04) mg/dL Est GFR (CKD-EPI) 20 L (>=60) Glucose 210 H (74-99) mg/dL POC Glucose (mg/dL) (70-110) mg/dL Calcium 8.5 L (8.7-10.3) mg/dL Phosphorus 5.4 H (2.5-4.5) mg/dL Magnesium 1.4 L (1.5-2.4) mg/dL AST 42 H (14-36) U/L ALT 73 H (4-34) U/L Alkaline Phosphatase 170 H (38-126) U/L C-Reactive Protein (<1.0) mg/dL Albumin 2.7 L (3.5-5.0) g/dL Globulin 3.6 H (1.6-3.3) g/dL Albumin/Globulin Ratio 0.75 L (1.60-3.17) Ratio 01/24/24 01/24/24 01/24/24 Range/Units 03:24 05:32 07:26 WBC 25.79 H (3.8-10.6) k/uL RBC 3.26 L (4.10-5.20) X 10*6/uL Hgb 10.1 L (12.0-15.0) g/dL Hct 29.7 L (37.2-46.3) % RDW 14.6 H (11.5-14.5) % Immature Gran # 0.22 H (0.00-0.04) X 10*3/uL Neutrophils # 22.22 H (1.3-7.7) k/uL Monocytes # 1.57 H (0-1.0) k/uL Eosinophils # 0.01 L (0.04-0.35) X 10*3/uL ESR (0-30) mm/Hr PT (10.0-12.5) sec INR (<1.2) APTT (22.0-30.0) sec Sodium (137-145) mmol/L Potassium (3.5-5.1) mmol/L Chloride (98-107) mmol/L Carbon Dioxide (22-30) mmol/L Anion Gap (4.00-12.00) mmol/L BUN (7-17) mg/dL Creatinine (0.52-1.04) mg/dL Est GFR (CKD-EPI) (>=60) Glucose (74-99) mg/dL POC Glucose (mg/dL) 200 H 188 H (70-110) mg/dL Calcium (8.7-10.3) mg/dL Phosphorus (2.5-4.5) mg/dL Magnesium (1.5-2.4) mg/dL AST (14-36) U/L ALT (4-34) U/L Alkaline Phosphatase (38-126) U/L C-Reactive Protein (<1.0) mg/dL Albumin (3.5-5.0) g/dL Globulin (1.6-3.3) g/dL Albumin/Globulin Ratio (1.60-3.17) Ratio 01/24/24 Range/Units 12:02 WBC (3.8-10.6) k/uL RBC (4.10-5.20) X 10*6/uL Hgb (12.0-15.0) g/dL Hct (37.2-46.3) % RDW (11.5-14.5) % Immature Gran # (0.00-0.04) X 10*3/uL Neutrophils # (1.3-7.7) k/uL Monocytes # (0-1.0) k/uL Eosinophils # (0.04-0.35) X 10*3/uL ESR (0-30) mm/Hr PT (10.0-12.5) sec INR (<1.2) APTT (22.0-30.0) sec Sodium (137-145) mmol/L Potassium (3.5-5.1) mmol/L Chloride (98-107) mmol/L Carbon Dioxide (22-30) mmol/L Anion Gap (4.00-12.00) mmol/L BUN (7-17) mg/dL Creatinine (0.52-1.04) mg/dL Est GFR (CKD-EPI) (>=60) Glucose (74-99) mg/dL POC Glucose (mg/dL) 254 H (70-110) mg/dL Calcium (8.7-10.3) mg/dL Phosphorus (2.5-4.5) mg/dL Magnesium (1.5-2.4) mg/dL AST (14-36) U/L ALT (4-34) U/L Alkaline Phosphatase (38-126) U/L C-Reactive Protein (<1.0) mg/dL Albumin (3.5-5.0) g/dL Globulin (1.6-3.3) g/dL Albumin/Globulin Ratio (1.60-3.17) Ratio Assessment and Plan (1) Cellulitis of right leg Current Visit: Yes Status: Acute Code(s): L03.115 - CELLULITIS OF RIGHT LOWER LIMB SNOMED Code(s): 05563245181595896 (2) Diabetic foot ulcer Current Visit: Yes Status: Acute Code(s): E11.621 - TYPE 2 DIABETES MELLITUS WITH FOOT ULCER; L97.509 - NON-PRESSURE CHRONIC ULCER OTH PRT UNSP FOOT W UNSP SEVERITY SNOMED Code(s): 785993635 (3) Sepsis Current Visit: Yes Status: Acute Code(s): A41.9 - SEPSIS, UNSPECIFIED ORGANISM SNOMED Code(s): 10963742 Plan: 1patient presented to hospital with sepsis in this patient who did have fever tachycardia elevated white count source is right diabetic foot infection in this patient who did have multiple ulceration to the right foot however the toes are drying out clinically the right lateral malleolar wound seem to be infected with secondary cellulitis extending to the right lower leg likely from gram-positive skin leslee however the patient has been previously infected with Pseudomonas and gram-negative infection not entirely excluded. 2patient with renal insufficiency high risk of nephrotoxicity. 3patient to continue with the vancomycin or watching her kidney function closely, if any worsening will switch to daptomycin, discontinue Rocephin and start the patient on cefepime to cover for the gram-negative. 4local culture has been obtained to guide further antibiotic therapy. 5local wound care with dry Aquacel silver dressing change every 48 hours. We will follow on clinical condition and cultures to further adjust medication if needed Thank you for this consultation we will follow the patient along with you Dictation was produced using [employer] dictation software. please excuse any grammatical, word or spelling errors. Time with Patient: Greater than 30
[2024-01-25] MEDS ORDERED: DAPAGLIFLOZIN PROPANEDIOL 5 MG TABLET PO SCH (09:00)
[2024-01-25] MEDS: CEFEPIME 2 GM in SODIUM CHLORIDE 0.9% 100 ML IVPB SCH (09:16)
[2024-01-25 10:48] LABS: Basophils % (A) 0 %; Eosinophils % (A) 0 %; HCT 32.8 % (34.0-46.0); HGB 10.7 gm/dL (11.4-16.0); Hypochromasia Slight; Lymphocytes % (A) 7 %; MCH 31.1 pg (25.0-35.0); MCHC 32.5 g/dL (31.0-37.0); MCV 95.6 fL (80.0-100.0); Mean Platelet Volume 7.5; Monocytes # (A) 0.5 k/uL (0-1.0); Monocytes % (A) 4 %; Neutrophils # (A) 11.7 k/uL (1.3-7.7); Neutrophils % (A) 88 %; Platelet Count 333 k/uL (150-450); RBC 3.43 m/uL (3.80-5.40); RDW 14.4 % (11.5-15.5); WBC 13.4 k/uL (3.8-10.6)
[2024-01-25 12:08] LABS: Glucose,Whole Blood 299 mg/dL (70-110)
[2024-01-25 12:11] LABS: ALT 43 U/L (4-34); AST 86 U/L (14-36); African American GFR (CKD) 26 (>60 ml/min/1.73 sqM); Albumin 2.6 g/dL (3.5-5.0); Albumin/Globulin Ratio 0.7; Alkaline Phosphatase 176 U/L (38-126); Anion Gap 13 mmol/L; Blood Urea Nitrogen 38 mg/dL (7-17); Calcium 8.7 mg/dL (8.4-10.2); Carbon Dioxide 22 mmol/L (22-30); Chloride 96 mmol/L (98-107); Globulin 3.7 g/dL; Glucose 237 mg/dL (74-99); Non-African American GFR(CKD) 23 (>60 ml/min/1.73 sqM); Sodium 131 mmol/L (137-145); Total Bilirubin 0.4 mg/dL (0.2-1.3); Total Protein 6.3 g/dL (6.3-8.2)
[2024-01-25 12:17] LABS: Vancomycin,Random 17.7 ug/mL
[2024-01-25] MEDS: SODIUM CHLORIDE 0.9% 1,000 ML IV SCH (12:47)
--- NOTE | 2024-01-25 13:00 | P.PN ---
Subjective Progress Note Date: 01/25/24 Patient is an 83-year-old female with a history of diabetes mellitus type 2 and chronic nonhealing wounds who presents to the emergency department for erythematous right lower extremity wound that appears to be worsening according to her family. Family believes that she may be having fevers. Patient started on IV Rocephin and vancomycin. She has a history of left lower extremity amputations for similar concerns. She endorses fever last night but not currently. She denies chills, nausea, vomiting, body aches, abdominal pain, shortness of breath, chest pain, or extremity pain. On admission: Checks x-ray unremarkable. Right tib-fib x-ray unremarkable. WBCs 26.1, hemoglobin 12.6, ESR 98, sodium 122, potassium 5.8, BUN 46, creatinine 2.52, glucose 307, phosphorus 5.4, alkaline phosphatase 214, CRP 20.8, albumin 3.2. Blood pressure systolic in the 150s 01/24. Patient seen and examined at bedside. WBCs 13.4, downtrending. Hemoglobin 10.7, hematocrit 32.8, sodium 131, BUN 38, creatinine 2.01. She has no significant complaints today. Denies chest pain, shortness of breath, abdominal pain, nausea, vomiting, extremity pain. Pertinent positives and negatives discussed above, a complete review of systems was preformed and all the other sytems were negative. Physical examination: Vital signs reviewed General: non toxic, no distress, obese Derm: no unusual rashes/lesions, warm Head: atraumatic, normocephalic, symmetric Eyes: EOMI, no lid lag, anicteric sclera, pupils equal round reactive to light ENT: Nose and ears atraumatic Neck: No cervical lymphadenopathy, trachea midline, supple Mouth: no lip lesion, mucus membranes moist Cardiovascular: S1S2, regular rate and rhythm, no murmurs, rubs, gallops Lungs: CTA bilateral, no rhonchi, no rales, no accessory muscle use Abdominal: soft, nontender to palpation, no guarding Ext: L AKA well-healed; right lower extremity: lateral aspect of ankle with pressure wound with granulation, anterior ankle wound with tendon exposure and some nonviable tissue, no purulent drainage noted, 1st3rd toes with dry gangrene Neuro: CN II-XI grossly intact, no gross focal neuro deficits Psych: Alert, oriented, appropriate affect and mood Assessment and Plan: #. Right lower extremity wounds #. Right foot dry gangrene of toes 13 Debridement/amputation - patient and family decline Local wound care per infectious disease #. Hyperkalemia, secondary to chronic kidney disease - resolved Monitor CMP #. Hypovolemic hyponatremia improving Continue fluids Monitor CMP #. Leukocytosis due to sepsis - improving IV Rocephin IV vancomycin Monitor CBC #. Diabetes mellitus type 2 Monitor glucose control Discontinue Farxiga due to CKD stage IV #. Paroxysmal atrial fibrillation Hold Xarelto Start Eliquis Objective - Vital Signs Vital signs: Vital Signs Temp 97.1 F L 01/25/24 07:27 Pulse 83 01/25/24 07:27 Resp 16 01/25/24 07:27 BP 131/55 01/25/24 07:27 Pulse Ox 100 01/25/24 07:27 FiO2 Intake & Output 01/24/24 01/25/24 01/25/24 18:59 06:59 18:59 Intake Total 1800 1900 Balance 1800 1900 Intake: Intake, IV Titration 1900 Amount Sodium Chloride 0.9% 1, 600 000 ml @ 75 mls/hr IV . [id number] [facility] Rx#:[id number] Vancomycin 1,250 mg In 1250 Sodium Chloride 0.9% 250 ml @ 125 mls/hr IVPB ONCE ONE Rx#:[id number] ceFAZolin 2 gm In Sodium 50 Chloride 0.9% 50 ml @ 100 mls/hr IVPB Q12HR [facility] Rx #:[id number] Oral 1800 Other: Voiding Method Diaper Diaper Diaper Incontinent - Labs CBC & Chem 7: 01/25/24 10:16 01/25/24 10:16 Labs: Abnormal Lab Results - Last 24 Hours (Table) 01/24/24 01/24/24 01/25/24 Range/Units 17:06 19:53 07:23 WBC (3.8-10.6) k/uL RBC (3.80-5.40) m/uL Hgb (11.4-16.0) gm/dL Hct (34.0-46.0) % Neutrophils # (1.3-7.7) k/uL Sodium (137-145) mmol/L Chloride (98-107) mmol/L BUN (7-17) mg/dL Creatinine (0.52-1.04) mg/dL Glucose (74-99) mg/dL POC Glucose (mg/dL) 247 H 270 H 66 L (70-110) mg/dL AST (14-36) U/L ALT (4-34) U/L Alkaline Phosphatase (38-126) U/L Albumin (3.5-5.0) g/dL 01/25/24 01/25/24 01/25/24 Range/Units 10:16 10:16 12:06 WBC 13.4 H (3.8-10.6) k/uL RBC 3.43 L (3.80-5.40) m/uL Hgb 10.7 L (11.4-16.0) gm/dL Hct 32.8 L (34.0-46.0) % Neutrophils # 11.7 H (1.3-7.7) k/uL Sodium 131 L (137-145) mmol/L Chloride 96 L (98-107) mmol/L BUN 38 H (7-17) mg/dL Creatinine 2.01 H (0.52-1.04) mg/dL Glucose 237 H (74-99) mg/dL POC Glucose (mg/dL) 299 H (70-110) mg/dL AST 86 H (14-36) U/L ALT 43 H (4-34) U/L Alkaline Phosphatase 176 H (38-126) U/L Albumin 2.6 L (3.5-5.0) g/dL Microbiology - Last 24 Hours (Table) 01/23/24 23:00 Blood Culture - Preliminary Blood 01/24/24 13:00 Gram Stain - Preliminary Foot - Right
[2024-01-25] MEDS: VANCOMYCIN 1,250 MG in SODIUM CHLORIDE 0.9% 250 ML IVPB ONE (13:55)
--- NOTE | 2024-01-25 14:50 | P.PN ---
Subjective Progress Note Date: 01/25/24 Principal diagnosis: Reason for follow-up is right lower extremity diabetic foot wound and cellulitis Patient is a 83-year-old female with a past medical history negative for diab etes mellitus hypertension hyperlipidemia chronic renal insufficiency CVA TIA history of diabetic foot infection in this patient who is status post left [id number] amputation also have her dragging into right foot toes now presented to the hospital with right leg swelling redness concerning for wound infection and cellulitis. On today's evaluation that is 01/25/2024,the patient denies any fever or any chills, patient is breathing comfortably on room air, the patient denies chest pain shortness of breath and no significant cough, patient denies abdominal pain, no nausea vomiting or diarrhea. Patient has been to the right lower extremity mention feeling slightly better. Patient white count is down to 13.4, creatinine is 2.01 local culture presumptive MRSA and E. coli Objective - Vital Signs Vital signs: Vital Signs Temp 97.1 F L 01/25/24 07:27 Pulse 83 01/25/24 07:27 Resp 16 01/25/24 07:27 BP 131/55 01/25/24 07:27 Pulse Ox 100 01/25/24 07:27 FiO2 Intake & Output 01/24/24 01/25/24 01/25/24 18:59 06:59 18:59 Intake Total 1800 1900 Balance 1800 1900 Intake: Intake, IV Titration 1900 Amount Sodium Chloride 0.9% 1, 600 000 ml @ 75 mls/hr IV . [id number] [facility] Rx#:[id number] Vancomycin 1,250 mg In 1250 Sodium Chloride 0.9% 250 ml @ 125 mls/hr IVPB ONCE ONE Rx#:[id number] ceFAZolin 2 gm In Sodium 50 Chloride 0.9% 50 ml @ 100 mls/hr IVPB Q12HR [facility] Rx #:[id number] Oral 1800 Other: Voiding Method Diaper Diaper Diaper Incontinent - Exam GENERAL DESCRIPTION: An elderly FEmale lying in bed in no distress RESPIRATORY SYSTEM: Unlabored breathing , decreased breath sounds at bases HEART: S1 S2 regular rate and rhythm , ABDOMEN: Soft , no tenderness EXTREMITIES: Right foot wound currently dressed, leg redness slightly Decreased - Labs CBC & Chem 7: 01/25/24 10:16 01/25/24 10:16 Labs: Abnormal Lab Results - Last 24 Hours (Table) 01/24/24 01/24/24 01/25/24 Range/Units 17:06 19:53 07:23 WBC (3.8-10.6) k/uL RBC (3.80-5.40) m/uL Hgb (11.4-16.0) gm/dL Hct (34.0-46.0) % Neutrophils # (1.3-7.7) k/uL Sodium (137-145) mmol/L Chloride (98-107) mmol/L BUN (7-17) mg/dL Creatinine (0.52-1.04) mg/dL Glucose (74-99) mg/dL POC Glucose (mg/dL) 247 H 270 H 66 L (70-110) mg/dL AST (14-36) U/L ALT (4-34) U/L Alkaline Phosphatase (38-126) U/L Albumin (3.5-5.0) g/dL 01/25/24 01/25/24 01/25/24 Range/Units 10:16 10:16 12:06 WBC 13.4 H (3.8-10.6) k/uL RBC 3.43 L (3.80-5.40) m/uL Hgb 10.7 L (11.4-16.0) gm/dL Hct 32.8 L (34.0-46.0) % Neutrophils # 11.7 H (1.3-7.7) k/uL Sodium 131 L (137-145) mmol/L Chloride 96 L (98-107) mmol/L BUN 38 H (7-17) mg/dL Creatinine 2.01 H (0.52-1.04) mg/dL Glucose 237 H (74-99) mg/dL POC Glucose (mg/dL) 299 H (70-110) mg/dL AST 86 H (14-36) U/L ALT 43 H (4-34) U/L Alkaline Phosphatase 176 H (38-126) U/L Albumin 2.6 L (3.5-5.0) g/dL Microbiology - Last 24 Hours (Table) 01/23/24 23:00 Blood Culture - Preliminary Blood 01/24/24 13:00 Gram Stain - Preliminary Foot - Right Assessment and Plan (1) Cellulitis of right leg Current Visit: Yes Status: Acute Code(s): L03.115 - CELLULITIS OF RIGHT LOWER LIMB SNOMED Code(s): 90703105775421651 (2) Diabetic foot ulcer Current Visit: Yes Status: Acute Code(s): E11.621 - TYPE 2 DIABETES MELLITUS WITH FOOT ULCER; L97.509 - NON-PRESSURE CHRONIC ULCER OTH PRT UNSP FOOT W UNSP SEVERITY SNOMED Code(s): 706744826 (3) Sepsis Current Visit: Yes Status: Acute Code(s): A41.9 - SEPSIS, UNSPECIFIED ORGANISM SNOMED Code(s): 67985102 Plan: 1patient presented to hospital with sepsis in this patient who did have fever tachycardia elevated white count source is right diabetic foot infection in this patient who did have multiple ulceration to the right foot however the toes are drying out clinically the right lateral malleolar wound seem to be infected with secondary cellulitis extending to the right lower leg likely from gram-positive skin leslee however the patient has been previously infected with Pseudomonas and gram-negative infection not entirely excluded. 2patient with renal insufficiency high risk of nephrotoxicity. 3local wound care with dry Aquacel silver dressing change every 48 hours. 4we will continue vancomycin watching kidney function closely along with cefepime while waiting for the culture to finalize Dictation was produced using [employer] dictation software. please excuse any grammatical, word or spelling errors. Time with Patient: Less than 30
[2024-01-25 17:10] LABS: Glucose,Whole Blood 239 mg/dL (70-110)
[2024-01-25] MEDS: ONDANSETRON 4 MG/2 ML VIAL IVP PRN (17:58)
[2024-01-25 20:40] LABS: Glucose,Whole Blood 198 mg/dL (70-110)
[2024-01-25] MEDS: CEFEPIME 1 GM in SODIUM CHLORIDE 0.9% 50 ML IVPB SCH (20:55)
[2024-01-26 05:03] LABS: African American GFR (CKD) 31 (>60 ml/min/1.73 sqM); Non-African American GFR(CKD) 27 (>60 ml/min/1.73 sqM)
[2024-01-26 07:42] LABS: Glucose,Whole Blood 60 mg/dL (70-110)
[2024-01-26 08:03] LABS: Glucose,Whole Blood 77 mg/dL (70-110)
[2024-01-26 12:05] LABS: Glucose,Whole Blood 258 mg/dL (70-110)
[2024-01-26 13:24] LABS: Basophils % (A) 0 %; Eosinophils # (A) 0.1 k/uL (0-0.7); Eosinophils % (A) 1 %; HCT 29.7 % (34.0-46.0); HGB 9.7 gm/dL (11.4-16.0); Hypochromasia Slight; Lymphocytes # (A) 1.2 k/uL (1.0-4.8); Lymphocytes % (A) 14 %; MCH 31.3 pg (25.0-35.0); MCHC 32.7 g/dL (31.0-37.0); MCV 95.6 fL (80.0-100.0); Mean Platelet Volume 7.4; Monocytes # (A) 0.5 k/uL (0-1.0); Monocytes % (A) 6 %; Neutrophils # (A) 6.3 k/uL (1.3-7.7); Neutrophils % (A) 77 %; Platelet Count 328 k/uL (150-450); RDW 14.4 % (11.5-15.5); WBC 8.3 k/uL (3.8-10.6)
[2024-01-26 13:41] LABS: ALT 37 U/L (4-34); AST 199 U/L (14-36); African American GFR (CKD) 32 (>60 ml/min/1.73 sqM); Albumin 2.4 g/dL (3.5-5.0); Albumin/Globulin Ratio 0.7; Alkaline Phosphatase 184 U/L (38-126); Anion Gap 9 mmol/L; Blood Urea Nitrogen 33 mg/dL (7-17); Calcium 8.5 mg/dL (8.4-10.2); Carbon Dioxide 20 mmol/L (22-30); Chloride 101 mmol/L (98-107); Globulin 3.5 g/dL; Glucose 259 mg/dL (74-99); Non-African American GFR(CKD) 28 (>60 ml/min/1.73 sqM); Potassium 4.5 mmol/L (3.5-5.1); Sodium 130 mmol/L (137-145); Total Bilirubin 0.4 mg/dL (0.2-1.3); Total Protein 5.9 g/dL (6.3-8.2)
--- NOTE | 2024-01-26 14:40 | P.PN ---
Subjective Progress Note Date: 01/26/24 Principal diagnosis: Reason for follow-up is right lower extremity diabetic foot wound and cellulitis Patient is a 83-year-old female with a past medical history negative for diab etes mellitus hypertension hyperlipidemia chronic renal insufficiency CVA TIA history of diabetic foot infection in this patient who is status post left [id number] amputation also have her dragging into right foot toes now presented to the hospital with right leg swelling redness concerning for wound infection and cellulitis. On today's evaluation that is 01/26/2024,the patient remains to be afebrile, patient is on room air not requiring supplemental oxygen and denies any shortness of breath no chest pain or cough.Patient denies having any nausea or vomiting, no abdominal pain and no diarrhea has been reported and denies any worsening pain to the right lower extremity. Patient white count normalized to 8.3, creatinine 1.69 local cultures growing MRSA E. coli and Klebsiella Objective - Vital Signs Vital signs: Vital Signs Temp 97.4 F L 01/26/24 07:05 Pulse 75 01/26/24 07:05 Resp 16 01/26/24 07:05 BP 141/67 01/26/24 07:05 Pulse Ox 100 01/26/24 07:05 FiO2 Intake & Output 01/25/24 01/26/24 01/26/24 18:59 06:59 18:59 Intake Total 1317 575 Output Total 400 850 Balance 917 -275 Intake: Intake, IV Titration 575 Amount Cefepime 1 gm In Sodium 50 Chloride 0.9% 50 ml @ 12. 5 mls/hr IVPB Q12HR [facility] Rx#:[id number] Sodium Chloride 0.9% 1, 525 000 ml @ 75 mls/hr IV . [id number] [facility] Rx#:[id number] Oral 1317 Output: Urine 400 850 Other: Voiding Method Diaper Diaper Diaper Incontinent Incontinent Incontinent External Catheter External Catheter # Voids 1 # Bowel Movements 1 - Exam GENERAL DESCRIPTION: An elderly FEmale lying in bed in no distress RESPIRATORY SYSTEM: Unlabored breathing , decreased breath sounds at bases HEART: S1 S2 regular rate and rhythm , ABDOMEN: Soft , no tenderness EXTREMITIES: Right foot anterior wound with a tendon exposed did have minimal purulent drainage right lateral malleolar wound did have some purulent drainage right leg redness slightly decreased necrotic changes to the toe - Labs CBC & Chem 7: 01/26/24 12:49 01/26/24 12:49 Labs: Abnormal Lab Results - Last 24 Hours (Table) 01/25/24 01/25/24 01/26/24 Range/Units 17:08 20:39 03:29 Creatinine 1.74 H (0.52-1.04) mg/dL POC Glucose (mg/dL) 239 H 198 H (70-110) mg/dL 01/26/24 01/26/24 Range/Units 07:38 12:04 Creatinine (0.52-1.04) mg/dL POC Glucose (mg/dL) 60 L 258 H (70-110) mg/dL Microbiology - Last 24 Hours (Table) 01/23/24 23:00 Blood Culture - Preliminary Blood 01/24/24 13:00 Gram Stain - Preliminary Foot - Right Wound Culture - Preliminary Presumptive MRSA Escherichia coli Assessment and Plan (1) Cellulitis of right leg Current Visit: Yes Status: Acute Code(s): L03.115 - CELLULITIS OF RIGHT LOWER LIMB SNOMED Code(s): 36486524975877909 (2) Diabetic foot ulcer Current Visit: Yes Status: Acute Code(s): E11.621 - TYPE 2 DIABETES MELLITUS WITH FOOT ULCER; L97.509 - NON-PRESSURE CHRONIC ULCER OTH PRT UNSP FOOT W UNSP SEVERITY SNOMED Code(s): 908645135 (3) Sepsis Current Visit: Yes Status: Acute Code(s): A41.9 - SEPSIS, UNSPECIFIED ORGANISM SNOMED Code(s): 91653547 Plan: 1patient presented to hospital with sepsis in this patient who did have fever tachycardia elevated white count source is right diabetic foot infection in this patient who did have multiple ulceration to the right foot however the toes are drying out clinically the right lateral malleolar wound seem to be infected with secondary cellulitis extending to the right lower leg likely from gram-positive skin leslee however the patient has been previously infected with Pseudomonas and gram-negative infection not entirely excluded. 2patient with renal insufficiency high risk of nephrotoxicity. 3local wound care with dry Aquacel silver dressing change every 48 hours. 4local culture currently growing MRSA Klebsiella and E. coli 5we will continue vancomycin watching kidney function closely along with cefepime while waiting for the sensitivity to finalize Dictation was produced using dragon dictation software. please excuse any grammatical, word or spelling errors. Time with Patient: Less than 30
--- NOTE | 2024-01-26 16:39 | P.PN ---
Subjective Progress Note Date: 01/26/24 Patient is an 83-year-old female with a history of diabetes mellitus type 2 and chronic nonhealing wounds who presents to the emergency department for erythematous right lower extremity wound that appears to be worsening according to her family. Family believes that she may be having fevers. Patient started on IV Rocephin and vancomycin. She has a history of left lower extremity amputations for similar concerns. She endorses fever last night but not currently. She denies chills, nausea, vomiting, body aches, abdominal pain, shortness of breath, chest pain, or extremity pain. On admission: Checks x-ray unremarkable. Right tib-fib x-ray unremarkable. WBCs 26.1, hemoglobin 12.6, ESR 98, sodium 122, potassium 5.8, BUN 46, creatinine 2.52, glucose 307, phosphorus 5.4, alkaline phosphatase 214, CRP 20.8, albumin 3.2. Blood pressure systolic in the 150s 01/24. Patient seen and examined at bedside. WBCs 13.4, downtrending. Hemoglobin 10.7, hematocrit 32.8, sodium 131, BUN 38, creatinine 2.01. She has no significant complaints today. Denies chest pain, shortness of breath, abdominal pain, nausea, vomiting, extremity pain. 01/25. Patient seen and examined sitting comfortably in bed. WBCs 8.3, hemoglobin 9.7, sodium 130, potassium 4.5, BUN 33, creatinine 1.69. She has no significant complaints today. Endorses nausea and 2 episodes of diarrhea since yesterday. Denies chest pain, shortness of breath, abdominal pain, nausea, vomiting, extremity pain. Wound cultures growing MRSA, E. coli, and Klebsiella. Pertinent positives and negatives discussed above, a complete review of systems was preformed and all the other systems were negative. Physical examination: Vital signs reviewed General: None toxic, no distress, obese Head: Atraumatic normocephalic, symmetric Eyes: EOMI, no lid lag, anicteric sclera, pupils equal round reactive to light ENT: Nose and ears atraumatic Neck: No cervical lymphadenopathy, trachea midline, supple Mouth: No lip lesion, mucus membranes moist Cardiovascular: S1S2 present, regular rate and rhythm, no murmurs, rubs, gallops Lungs: CTA bilateral, no rhonchi, no rales, no accessory muscle use Abdominal: Soft, nontender to palpation, no guarding Ext: L AKA well-healed; right lower extremity: lateral aspect of ankle with pressure wound with granulation, anterior ankle wound with tendon exposure and some nonviable tissue, no purulent drainage noted, 1st3rd toes with dry gangrene Neuro: CN II-XI grossly intact, no gross focal neuro deficits Psych: Alert, oriented, appropriate affect and mood Assessment and Plan: #. Right lower extremity wounds #. Right foot dry gangrene of toes 13 Debridement/amputation - patient and family decline Local wound care per infectious disease #. Hyperkalemia, secondary to chronic kidney disease - improved Monitor CMP #. Hypovolemic hyponatremia improving Continue fluids Monitor CMP #. Leukocytosis due to sepsis - improving IV Rocephin IV vancomycin Monitor CBC Monitor CMP for kidney function Pending further recommendations from infectious disease #. Diabetes mellitus type 2 Monitor glucose control Discontinue Farxiga due to CKD stage IV #. Paroxysmal atrial fibrillation Hold Xarelto Start Eliquis Attestation: I have personally seen and examined the patient with Residentjoseiewed the documentation and participated and agree with the assessment and plan as written. Objective - Vital Signs Vital signs: Vital Signs Temp 97.4 F L 01/26/24 07:05 Pulse 75 01/26/24 07:05 Resp 16 01/26/24 07:05 BP 141/67 01/26/24 07:05 Pulse Ox 100 01/26/24 07:05 FiO2 Intake & Output 01/25/24 01/26/24 01/26/24 18:59 06:59 18:59 Intake Total 1317 575 Output Total 400 850 Balance 917 -275 Intake: Intake, IV Titration 575 Amount Cefepime 1 gm In Sodium 50 Chloride 0.9% 50 ml @ 12. 5 mls/hr IVPB Q12HR [facility] Rx#:[id number] Sodium Chloride 0.9% 1, 525 000 ml @ 75 mls/hr IV . [id number] [facility] Rx#:[id number] Oral 1317 Output: Urine 400 850 Other: Voiding Method Diaper Diaper Incontinent Incontinent External Catheter # Voids 1 # Bowel Movements 1 - Labs CBC & Chem 7: 01/26/24 12:49 01/27/24 03:54 Labs: Abnormal Lab Results - Last 24 Hours (Table) 01/25/24 01/25/24 01/25/24 Range/Units 10:16 10:16 12:06 WBC 13.4 H (3.8-10.6) k/uL RBC 3.43 L (3.80-5.40) m/uL Hgb 10.7 L (11.4-16.0) gm/dL Hct 32.8 L (34.0-46.0) % Neutrophils # 11.7 H (1.3-7.7) k/uL Sodium 131 L (137-145) mmol/L Chloride 96 L (98-107) mmol/L BUN 38 H (7-17) mg/dL Creatinine 2.01 H (0.52-1.04) mg/dL Glucose 237 H (74-99) mg/dL POC Glucose (mg/dL) 299 H (70-110) mg/dL AST 86 H (14-36) U/L ALT 43 H (4-34) U/L Alkaline Phosphatase 176 H (38-126) U/L Albumin 2.6 L (3.5-5.0) g/dL 01/25/24 01/25/24 01/26/24 Range/Units 17:08 20:39 03:29 WBC (3.8-10.6) k/uL RBC (3.80-5.40) m/uL Hgb (11.4-16.0) gm/dL Hct (34.0-46.0) % Neutrophils # (1.3-7.7) k/uL Sodium (137-145) mmol/L Chloride (98-107) mmol/L BUN (7-17) mg/dL Creatinine 1.74 H (0.52-1.04) mg/dL Glucose (74-99) mg/dL POC Glucose (mg/dL) 239 H 198 H (70-110) mg/dL AST (14-36) U/L ALT (4-34) U/L Alkaline Phosphatase (38-126) U/L Albumin (3.5-5.0) g/dL 01/26/24 Range/Units 07:38 WBC (3.8-10.6) k/uL RBC (3.80-5.40) m/uL Hgb (11.4-16.0) gm/dL Hct (34.0-46.0) % Neutrophils # (1.3-7.7) k/uL Sodium (137-145) mmol/L Chloride (98-107) mmol/L BUN (7-17) mg/dL Creatinine (0.52-1.04) mg/dL Glucose (74-99) mg/dL POC Glucose (mg/dL) 60 L (70-110) mg/dL AST (14-36) U/L ALT (4-34) U/L Alkaline Phosphatase (38-126) U/L Albumin (3.5-5.0) g/dL Microbiology - Last 24 Hours (Table) 01/23/24 23:00 Blood Culture - Preliminary Blood 01/24/24 13:00 Gram Stain - Preliminary Foot - Right Wound Culture - Preliminary Presumptive MRSA Escherichia coli
[2024-01-26 17:10] LABS: Glucose,Whole Blood 312 mg/dL (70-110)
[2024-01-26] MEDS: INSULIN ASPART (NovoLOG) 100 UNIT/ML VIAL SQ SCH (18:49)
[2024-01-26 20:30] LABS: Glucose,Whole Blood 258 mg/dL (70-110)
[2024-01-27 05:02] LABS: African American GFR (CKD) 31 (>60 ml/min/1.73 sqM); Non-African American GFR(CKD) 27 (>60 ml/min/1.73 sqM)
[2024-01-27 07:31] LABS: Glucose,Whole Blood 60 mg/dL (70-110)
[2024-01-27 07:52] LABS: Glucose,Whole Blood 79 mg/dL (70-110)
[2024-01-27 12:17] LABS: Glucose,Whole Blood 197 mg/dL (70-110)
--- NOTE | 2024-01-27 14:10 | P.PN ---
Subjective Progress Note Date: 01/27/24 Interval History: Patient is an 83-year-old female with a history of diabetes mellitus type 2 and chronic nonhealing wounds who presents to the emergency department for erythematous right lower extremity wound that appears to be worsening according to her family. Family believes that she may be having fevers. Patient started on IV Rocephin and vancomycin. She has a history of left lower extremity ampu tations for similar concerns. She endorses fever last night but not currently. She denies chills, nausea, vomiting, body aches, abdominal pain, shortness of breath, chest pain, or extremity pain. On admission: Checks x-ray unremarkable. Right tib-fib x-ray unremarkable. WBCs 26.1, hemoglobin 12.6, ESR 98, sodium 122, potassium 5.8, BUN 46, creatinine 2.52, glucose 307, phosphorus 5.4, alkaline phosphatase 214, CRP 20.8, albumin 3.2. Blood pressure systolic in the 150s 01/24. Patient seen and examined at bedside. WBCs 13.4, downtrending. Hemoglobin 10.7, hematocrit 32.8, sodium 131, BUN 38, creatinine 2.01. She has no significant complaints today. Denies chest pain, shortness of breath, abdominal pain, nausea, vomiting, extremity pain. 01/25. Patient seen and examined sitting comfortably in bed. WBCs 8.3, hemoglobin 9.7, sodium 130, potassium 4.5, BUN 33, creatinine 1.69. She has no significant complaints today. Endorses nausea and 2 episodes of diarrhea since yesterday. Denies chest pain, shortness of breath, abdominal pain, nausea, vomiting, extremity pain. Wound cultures growing MRSA, E. coli, and Klebsiella. 01/27/2024--patient was seen and examined today. Patient slightly confused today, no focal neurodeficits, family at bedside. Vitals unremarkable, afe brile. Lab work not done today. Currently vancomycin and cefepime. Wound culture growing MRSA, E. coli, Klebsiella. Infectious disease following. Anticipate IV antibiotics with PICC line. Awaiting sensitivities. Assessment and plan: Right lower extremity cellulitis/wound: Right foot dry gangrene of toes 1-3: Sepsis: Leukocytosis: Patient and family declined surgical intervention Continue local wound care Continue antibiotics vancomycin and cefepime for now Infectious disease consulted and following Vascular surgery consulted Hyperkalemia: MARII on CKD: Monitor BMP, monitor electrolytes Avoid nephrotoxin Hypovolemic hyponatremia: Improving Continue IV fluids Diabetes mellitus: Hold Farxiga Monitor blood sugars Sliding-scale insulin Levemir Paroxysmal atrial fibrillation: Eliquis Rate controlled. DVT prophylaxis: Anticoagulated PHYSICAL EXAMINATION: GENERAL: The patient is A&O x3, NAD HEENT: EOMI, Sclerae anicteric, Moist Mucous membranes Neck: Supple, Non tender, No JVD PULMONARY: Equal breath souds B/L, No wheezing, No crackles. CARDIOVASCULAR: S1, S2 present. No murmurs, rubs, or gallops. ABDOMEN: Soft, nontender, nondistended, normoactive bowel sounds. No guarding or rebound tenderness. MUSCULOSKELETAL: No edema, No cyanosis. No clubbing. Normal ROM. Intact perip heral pulses. EXTREMITIES: RLE: Dressing intact NEUROLOGICAL: CN 2-12 grossly intact. No FND Skin: No Rash REVIEW OF SYSTEMS: CONSTITUTIONAL: No fever or chills. CARDIOVASCULAR: No chest pain, palpitations or syncope. PULMONARY: No shortness of breath, no cough, sore throat. GASTROINTESTINAL: No nausea, vomiting, diarrhea, abdominal pain. : No Dysuria, urgency, frequency. Extremities: No edema. NEUROLOGICAL: No headaches, no weakness, or numbness Dictation was produced using [employer] dictation software. please excuse any grammatical, word or spelling errors. Objective - Vital Signs Vital signs: Vital Signs Temp 98.3 F 01/27/24 12:50 Pulse 63 01/27/24 12:50 Resp 17 01/27/24 12:50 BP 169/68 01/27/24 12:50 Pulse Ox 100 01/27/24 12:50 FiO2 Intake & Output 01/26/24 01/27/24 01/27/24 18:59 06:59 18:59 Intake Total 1490 Output Total 750 550 Balance 740 -550 Intake: Intake, IV Titration 950 Amount Cefepime 1 gm In Sodium 50 Chloride 0.9% 50 ml @ 12. 5 mls/hr IVPB Q12HR [facility] Rx#:[id number] Sodium Chloride 0.9% 1, 900 000 ml @ 75 mls/hr IV . [id number] [facility] Rx#:[id number] Oral 540 Output: Urine 750 550 Other: Voiding Method Diaper Diaper Diaper Incontinent Incontinent Incontinent External Catheter External Catheter External Catheter # Voids 2 - Labs CBC & Chem 7: 01/26/24 12:49 01/27/24 03:54 Labs: Abnormal Lab Results - Last 24 Hours (Table) 01/26/24 01/26/24 01/27/24 Range/Units 17:08 20:29 03:54 Creatinine 1.74 H (0.52-1.04) mg/dL POC Glucose (mg/dL) 312 H 258 H (70-110) mg/dL 01/27/24 01/27/24 Range/Units 07:28 12:15 Creatinine (0.52-1.04) mg/dL POC Glucose (mg/dL) 60 L 197 H (70-110) mg/dL Microbiology - Last 24 Hours (Table) 01/24/24 13:00 Gram Stain - Final Foot - Right Wound Culture - Final Methicillin resist S. aureus Escherichia coli Klebsiella pneumoniae 01/24/24 13:00 Anaerobic Culture - Preliminary Foot - Right
--- NOTE | 2024-01-27 14:49 | P.PN ---
Subjective Progress Note Date: 01/27/24 Principal diagnosis: Reason for follow-up is right lower extremity diabetic foot wound and cellulitis Patient is a 83-year-old female with a past medical history negative for diab etes mellitus hypertension hyperlipidemia chronic renal insufficiency CVA TIA history of diabetic foot infection in this patient who is status post left [id number] amputation also have her dragging into right foot toes now presented to the hospital with right leg swelling redness concerning for wound infection and cellulitis. On today's evaluation that is 01/27/2024, the patient continues to be afebrile, the patient is on room air and breathing comfortably, the Pt denies having any chest pain or cough, the patient denies having any abdominal pain no vomiting or any diarrhea, patient noted mention patient seen to be slightly confused today. Local culture has been finalized with MRSA E. coli and Klebsiella no Pseudomonas did have a creatinine 1.74 bicarb of 19.2 Objective - Vital Signs Vital signs: Vital Signs Temp 98.3 F 01/27/24 12:50 Pulse 63 01/27/24 12:50 Resp 17 01/27/24 12:50 BP 169/68 01/27/24 12:50 Pulse Ox 100 01/27/24 12:50 FiO2 Intake & Output 01/26/24 01/27/24 01/27/24 18:59 06:59 18:59 Intake Total 1490 Output Total 750 550 Balance 740 -550 Intake: Intake, IV Titration 950 Amount Cefepime 1 gm In Sodium 50 Chloride 0.9% 50 ml @ 12. 5 mls/hr IVPB Q12HR [facility] Rx#:[id number] Sodium Chloride 0.9% 1, 900 000 ml @ 75 mls/hr IV . [id number] [facility] Rx#:[id number] Oral 540 Output: Urine 750 550 Other: Voiding Method Diaper Diaper Diaper Incontinent Incontinent Incontinent External Catheter External Catheter External Catheter # Voids 2 - Exam GENERAL DESCRIPTION: An elderly FEmale lying in bed in no distress RESPIRATORY SYSTEM: Unlabored breathing , decreased breath sounds at bases HEART: S1 S2 regular rate and rhythm , ABDOMEN: Soft , no tenderness EXTREMITIES: Right foot anterior wound with a tendon exposed did have minimal purulent drainage right lateral malleolar wound did have some purulent drainage right leg redness slightly decreased necrotic changes to the toe - Labs CBC & Chem 7: 01/26/24 12:49 01/27/24 03:54 Labs: Abnormal Lab Results - Last 24 Hours (Table) 01/26/24 01/26/24 01/27/24 Range/Units 17:08 20:29 03:54 Creatinine 1.74 H (0.52-1.04) mg/dL POC Glucose (mg/dL) 312 H 258 H (70-110) mg/dL 01/27/24 01/27/24 Range/Units 07:28 12:15 Creatinine (0.52-1.04) mg/dL POC Glucose (mg/dL) 60 L 197 H (70-110) mg/dL Microbiology - Last 24 Hours (Table) 01/24/24 13:00 Gram Stain - Final Foot - Right Wound Culture - Final Methicillin resist S. aureus Escherichia coli Klebsiella pneumoniae 01/24/24 13:00 Anaerobic Culture - Preliminary Foot - Right Assessment and Plan (1) Cellulitis of right leg Current Visit: Yes Status: Acute Code(s): L03.115 - CELLULITIS OF RIGHT LOWER LIMB SNOMED Code(s): 97321210151419009 (2) Diabetic foot ulcer Current Visit: Yes Status: Acute Code(s): E11.621 - TYPE 2 DIABETES MELLITUS WITH FOOT ULCER; L97.509 - NON-PRESSURE CHRONIC ULCER OTH PRT UNSP FOOT W UNSP SEVERITY SNOMED Code(s): 732918598 (3) Sepsis Current Visit: Yes Status: Acute Code(s): A41.9 - SEPSIS, UNSPECIFIED ORGANISM SNOMED Code(s): 87123688 Plan: 1patient presented to hospital with sepsis in this patient who did have fever tachycardia elevated white count source is right diabetic foot infection in this patient who did have multiple ulceration to the right foot however the toes are drying out clinically the right lateral malleolar wound seem to be infected with secondary cellulitis extending to the right lower leg likely from gram-positive skin leslee however the patient has been previously infected with Pseudomonas and gram-negative infection not entirely excluded. 2patient with renal insufficiency high risk of nephrotoxicity. 3local wound care with dry Aquacel silver dressing change every 48 hours. 4local culture currently growing MRSA Klebsiella and E. coli 5patient did have some confusion could be related to cefepime which will be discontinued as no Pseudomonas we will add Rocephin 2 g daily continue with the vancomycin Daughter at the bedside have multiple question concern were answered they have expressed the desire of IV antibiotic on discharge Dictation was produced using [employer] dictation software. please excuse any grammatical, word or spelling errors. Time with Patient: Less than 30
[2024-01-27 17:12] LABS: Glucose,Whole Blood 198 mg/dL (70-110)
[2024-01-27 19:49] LABS: Glucose,Whole Blood 229 mg/dL (70-110)
[2024-01-27] MEDS: VANCOMYCIN 1,250 MG in SODIUM CHLORIDE 0.9% 250 ML IVPB ONE (20:36)
[2024-01-28 06:23] LABS: ALT 38 U/L (4-34); AST 109 U/L (14-36); African American GFR (CKD) 37 (>60 ml/min/1.73 sqM); Albumin 2.3 g/dL (3.5-5.0); Albumin/Globulin Ratio 0.6; Alkaline Phosphatase 176 U/L (38-126); Anion Gap 6 mmol/L; Blood Urea Nitrogen 31 mg/dL (7-17); Calcium 8.4 mg/dL (8.4-10.2); Carbon Dioxide 22 mmol/L (22-30); Chloride 106 mmol/L (98-107); Globulin 3.6 g/dL; Glucose 66 mg/dL (74-99); Non-African American GFR(CKD) 32 (>60 ml/min/1.73 sqM); Potassium 3.9 mmol/L (3.5-5.1); Sodium 134 mmol/L (137-145); Total Bilirubin 0.3 mg/dL (0.2-1.3); Total Protein 5.9 g/dL (6.3-8.2)
[2024-01-28 06:58] LABS: Glucose,Whole Blood 75 mg/dL (70-110)
[2024-01-28 09:43] LABS: Basophils # (A) 0.03 X 10*3/uL (0.00-0.10); Basophils % (A) 0.4 %; Eosinophils # (A) 0.46 X 10*3/uL (0.04-0.35); Eosinophils % (A) 5.5 %; HCT 28.7 % (37.2-46.3); HGB 9.4 g/dL (12.0-15.0); Lymphocytes # (A) 2.12 X 10*3/uL (0.90-5.00); Lymphocytes % (A) 25.1 %; MCHC 32.8 g/dL (32.0-37.0); MCV 94.7 FL (80.0-97.0); Mean Platelet Volume 10.8 FL (9.5-12.2); Monocytes # (A) 0.87 X 10*3/uL (0.20-1.00); Monocytes % (A) 10.3 %; NRBC Per 100 WBC 0 X 10*3/uL (0.00-0.01); Neutrophils # (A) 4.89 X 10*3/uL (1.80-7.70); Neutrophils % (A) 57.9 %; Platelet Count 289 X 10*3/uL (140-440); RBC 3.03 X 10*6/uL (4.10-5.20); RDW 14.6 % (11.5-14.5); WBC 8.44 X 10*3/uL (4.50-10.00)
[2024-01-28] MEDS ORDERED: QUEtiapine 25 MG TAB PO PRN (10:54)
[2024-01-28 10:55] LABS: C Reactive Protein 6.6 mg/dL (<1.0)
[2024-01-28 11:37] LABS: Erythrocyte Sedimentation Rate 76 mm/Hr (0-30)
[2024-01-28 11:48] LABS: Glucose,Whole Blood 122 mg/dL (70-110)
--- NOTE | 2024-01-28 12:27 | P.PN ---
Subjective Progress Note Date: 01/28/24 Patient is an 83-year-old female with a history of diabetes mellitus type 2 and chronic nonhealing wounds who presents to the emergency department for erythematous right lower extremity wound that appears to be worsening according to her family. Family believes that she may be having fevers. Patient started on IV Rocephin and vancomycin. She has a history of left lower extremity amputations for similar concerns. She endorses fever last night but not currently. She denies chills, nausea, vomiting, body aches, abdominal pain, shortness of breath, chest pain, or extremity pain. On admission: Checks x-ray unremarkable. Right tib-fib x-ray unremarkable. WBCs 26.1, hemoglobin 12.6, ESR 98, sodium 122, potassium 5.8, BUN 46, creatinine 2.52, glucose 307, phosphorus 5.4, alkaline phosphatase 214, CRP 20.8, albumin 3.2. Blood pressure systolic in the 150s 01/24. Patient seen and examined at bedside. WBCs 13.4, downtrending. Hemoglobin 10.7, hematocrit 32.8, sodium 131, BUN 38, creatinine 2.01. She has no significant complaints today. Denies chest pain, shortness of breath, abdominal pain, nausea, vomiting, extremity pain. 01/25. Patient seen and examined sitting comfortably in bed. WBCs 8.3, hemoglobin 9.7, sodium 130, potassium 4.5, BUN 33, creatinine 1.69. She has no significant complaints today. Endorses nausea and 2 episodes of diarrhea since yesterday. Denies chest pain, shortness of breath, abdominal pain, nausea, vomiting, extremity pain. Wound cultures growing MRSA, E. coli, and Klebsiella. 01/26. Patient was seen and examined today. Patient slightly confused today, no focal neurodeficits, family at bedside. Vitals unremarkable, afebrile. Lab work not done today. Currently vancomycin and cefepime. Wound culture growing MRSA, E. coli, Klebsiella. Infectious disease following. Anticipate IV antibiotics with PICC line. Awaiting sensitivities. 01/27. Patient seen and examined today. Still mildly confused, no focal neurodeficits. Vitals unremarkable, afebrile. WBCs 8.44, hemoglobin 9.4, sodium 134, potassium 3.9, creatinine 1.52 downtrending. Cefepime was discontinued per infectious disease. Patient maintained on Rocephin and vancomy melinda. Awaiting PICC line placement. Pertinent positives and negatives discussed above, a complete review of systems was preformed and all the other systems were negative. Physical examination: Vital signs reviewed General: None toxic, no distress, obese Head: Atraumatic normocephalic, symmetric Eyes: EOMI, no lid lag, anicteric sclera, pupils equal round reactive to light ENT: Nose and ears atraumatic Neck: No cervical lymphadenopathy, trachea midline, supple Mouth: No lip lesion, mucus membranes moist Cardiovascular: S1S2 present, regular rate and rhythm, no murmurs, rubs, gallops Lungs: CTA bilateral, no rhonchi, no rales, no accessory muscle use Abdominal: Soft, nontender to palpation, no guarding Ext: L AKA well-healed; right lower extremity: lateral aspect of ankle with pressure wound with granulation, anterior ankle wound with tendon exposure and some nonviable tissue, no purulent drainage noted, 1st3rd toes with dry gangrene Neuro: CN II-XI grossly intact, no gross focal neuro deficits Psych: Alert, oriented, appropriate affect and mood Assessment and Plan: #. Right lower extremity wounds #. Right foot dry gangrene of toes 13 Debridement/amputation - patient and family decline Local wound care per infectious disease #. Hyperkalemia, secondary to chronic kidney disease - improved Monitor CMP #. Hypovolemic hyponatremia improving Continue fluids Monitor CMP #. Leukocytosis due to sepsis - improving IV Rocephin IV vancomycin Monitor CBC Monitor CMP for kidney function Pending further recommendations from infectious disease #. Diabetes mellitus type 2 Monitor glucose control Discontinue Farxiga due to CKD stage IV #. Paroxysmal atrial fibrillation Hold Xarelto Start Eliquis Dr. Denise MD I have performed a history and physical examination and medical decision making of this patient, discussed the same with the the resident, and agree with the assessment and plan as written. I performed brief physical exam. Objective - Vital Signs Vital signs: Vital Signs Temp 97.6 F 01/28/24 07:19 Pulse 83 01/28/24 07:19 Resp 16 01/28/24 07:19 BP 159/74 01/28/24 07:19 Pulse Ox 100 01/28/24 07:19 FiO2 Intake & Output 01/27/24 01/28/24 01/28/24 18:59 06:59 18:59 Intake Total 480 Output Total 1000 500 Balance -520 -500 Intake: Oral 480 Output: Urine 1000 500 Other: Voiding Method Diaper Diaper Incontinent Incontinent External Catheter External Catheter # Voids 2 1 - Labs CBC & Chem 7: 01/29/24 03:24 01/29/24 03:24 Labs: Abnormal Lab Results - Last 24 Hours (Table) 01/27/24 01/27/24 01/27/24 Range/Units 12:15 17:09 19:47 Sodium (137-145) mmol/L BUN (7-17) mg/dL Creatinine (0.52-1.04) mg/dL Glucose (74-99) mg/dL POC Glucose (mg/dL) 197 H 198 H 229 H (70-110) mg/dL AST (14-36) U/L ALT (4-34) U/L Alkaline Phosphatase (38-126) U/L Total Protein (6.3-8.2) g/dL Albumin (3.5-5.0) g/dL 01/28/24 Range/Units 05:51 Sodium 134 L (137-145) mmol/L BUN 31 H (7-17) mg/dL Creatinine 1.52 H (0.52-1.04) mg/dL Glucose 66 L (74-99) mg/dL POC Glucose (mg/dL) (70-110) mg/dL AST 109 H (14-36) U/L ALT 38 H (4-34) U/L Alkaline Phosphatase 176 H (38-126) U/L Total Protein 5.9 L (6.3-8.2) g/dL Albumin 2.3 L (3.5-5.0) g/dL Microbiology - Last 24 Hours (Table) 01/24/24 13:00 Gram Stain - Final Foot - Right Wound Culture - Final Methicillin resist S. aureus Escherichia coli Klebsiella pneumoniae
--- NOTE | 2024-01-28 15:00 | XR ---
EXAMINATION TYPE: XR chest 1V DATE OF EXAM: 01/28/2024 COMPARISON: 11/14/2023 HISTORY: PICC line placement TECHNIQUE: Single frontal view of the chest is obtained. FINDINGS: There is been interval development of a small partially consolidated opacity in the right midlung zon e. The left lung is clear. The heart size and pulmonary vasculature are normal. There is no pleural effusion or pneumothorax. There is been interval insertion of a left-sided PICC line the tip of which terminates in the SVC/RA junction. The osseous structures are intact IMPRESSION: 1. PICC line tip in the SVC/RA junction. 2. New small focal opacity in the right lung suspicious for pneumonia or focal edema. Short-term foll ow-up to resolution is recommended.
[2024-01-28] MEDS ORDERED: ZINC OXIDE PASTE (Z-GUARD) 1 APPLIC TOPICAL PRN (15:05)
[2024-01-28 17:09] LABS: Glucose,Whole Blood 181 mg/dL (70-110)
[2024-01-28 19:37] LABS: Glucose,Whole Blood 211 mg/dL (70-110)
--- NOTE | 2024-01-28 22:49 | P.PN ---
Subjective Progress Note Date: 01/28/24 Principal diagnosis: Reason for follow-up is right lower extremity diabetic foot wound and cellulitis Patient is a 83-year-old female with a past medical history negative for diab etes mellitus hypertension hyperlipidemia chronic renal insufficiency CVA TIA history of diabetic foot infection in this patient who is status post left bjvmu-[id number]-yrvy amputation also have her dragging into right foot toes now presented to the hospital with right leg swelling redness concerning for wound infection and cellulitis. On today's evaluation that is 01/28/2024, Patient is afebrile patient is currently on room air and denies having any shortness of breath, the patient denies any chest pain or cough, the patient denies any nausea vomiting did not have any abdominal pain and no diarrhea patient did have improvement in her mentation denies any headache or pain to the right lower extremity. Patient white count is 8.44, creatinine is 1.52 liver enzymes mildly elevated culture positive for MRSA E. coli and Klebsiella Objective - Vital Signs Vital signs: Vital Signs Temp 98.4 F 01/28/24 20:00 Pulse 69 01/28/24 20:00 Resp 16 01/28/24 20:00 BP 157/72 01/28/24 20:00 Pulse Ox 93 L 01/28/24 20:00 FiO2 Intake & Output 01/28/24 01/28/24 01/29/24 06:59 18:59 06:59 Output Total 500 1100 Balance -500 -1100 Output: Urine 500 1100 Other: Voiding Method Diaper Diaper Incontinent Incontinent External Catheter External Catheter # Voids 1 - Exam GENERAL DESCRIPTION: An elderly FEmale lying in bed in no distress RESPIRATORY SYSTEM: Unlabored breathing , decreased breath sounds at bases HEART: S1 S2 regular rate and rhythm , ABDOMEN: Soft , no tenderness EXTREMITIES: Right foot anterior wound with a tendon exposed did have minimal purulent drainage right lateral malleolar wound did have some purulent drainage right leg redness slightly decreased necrotic changes to the toe - Labs CBC & Chem 7: 01/28/24 05:51 01/28/24 05:51 Labs: Abnormal Lab Results - Last 24 Hours (Table) 01/28/24 01/28/24 01/28/24 Range/Units 05:51 05:51 11:46 RBC 3.03 L (4.10-5.20) X 10*6/uL Hgb 9.4 L (12.0-15.0) g/dL Hct 28.7 L (37.2-46.3) % RDW 14.6 H (11.5-14.5) % Immature Gran # 0.07 H (0.00-0.04) X 10*3/uL Eosinophils # 0.46 H (0.04-0.35) X 10*3/uL ESR 76 H (0-30) mm/Hr Sodium 134 L (137-145) mmol/L BUN 31 H (7-17) mg/dL Creatinine 1.52 H (0.52-1.04) mg/dL Glucose 66 L (74-99) mg/dL POC Glucose (mg/dL) 122 H (70-110) mg/dL AST 109 H (14-36) U/L ALT 38 H (4-34) U/L Alkaline Phosphatase 176 H (38-126) U/L C-Reactive Protein 6.6 H (<1.0) mg/dL Total Protein 5.9 L (6.3-8.2) g/dL Albumin 2.3 L (3.5-5.0) g/dL 01/28/24 01/28/24 Range/Units 17:07 19:35 RBC (4.10-5.20) X 10*6/uL Hgb (12.0-15.0) g/dL Hct (37.2-46.3) % RDW (11.5-14.5) % Immature Gran # (0.00-0.04) X 10*3/uL Eosinophils # (0.04-0.35) X 10*3/uL ESR (0-30) mm/Hr Sodium (137-145) mmol/L BUN (7-17) mg/dL Creatinine (0.52-1.04) mg/dL Glucose (74-99) mg/dL POC Glucose (mg/dL) 181 H 211 H (70-110) mg/dL AST (14-36) U/L ALT (4-34) U/L Alkaline Phosphatase (38-126) U/L C-Reactive Protein (<1.0) mg/dL Total Protein (6.3-8.2) g/dL Albumin (3.5-5.0) g/dL Microbiology - Last 24 Hours (Table) 01/24/24 13:00 Anaerobic Culture - Final Foot - Right Assessment and Plan (1) Cellulitis of right leg Current Visit: Yes Status: Acute Code(s): L03.115 - CELLULITIS OF RIGHT LOWER LIMB SNOMED Code(s): 06612570058440355 (2) Diabetic foot ulcer Current Visit: Yes Status: Acute Code(s): E11.621 - TYPE 2 DIABETES MELLITUS WITH FOOT ULCER; L97.509 - NON-PRESSURE CHRONIC ULCER OTH PRT UNSP FOOT W UNSP SEVERITY SNOMED Code(s): 278774792 (3) Sepsis Current Visit: Yes Status: Acute Code(s): A41.9 - SEPSIS, UNSPECIFIED ORGANISM SNOMED Code(s): 89999286 Plan: 1patient presented to hospital with sepsis in this patient who did have fever tachycardia elevated white count source is right diabetic foot infection in this patient who did have multiple ulceration to the right foot however the toes are drying out clinically the right lateral malleolar wound seem to be infected with secondary cellulitis extending to the right lower leg likely from gram-positive skin leslee however the patient has been previously infected with Pseudomonas and gram-negative infection not entirely excluded. 2patient with renal insufficiency high risk of nephrotoxicity. 3local wound care with dry Aquacel silver dressing change every 48 hours. 4local culture currently growing MRSA Klebsiella and E. coli 5patient did have some confusion could be related to cefepime which has been discontinued some improvement in the mentation noticed today we will keep the patient on vancomycin and Rocephin will get a PICC line for outpatient IV antibiotic therapy Dictation was produced using [employer] dictation software. please excuse any grammatical, word or spelling errors. Time with Patient: Less than 30
[2024-01-29 06:53] LABS: Glucose,Whole Blood 185 mg/dL (70-110)
[2024-01-29 07:16] VITALS: RESP 16
[2024-01-29 08:28] LABS: Basophils # (A) 0.03 X 10*3/uL (0.00-0.10); Basophils % (A) 0.4 %; Eosinophils # (A) 0.44 X 10*3/uL (0.04-0.35); Eosinophils % (A) 5.9 %; HCT 28.8 % (37.2-46.3); HGB 9.5 g/dL (12.0-15.0); Lymphocytes % (A) 22.7 %; MCH 30.5 pg (27.0-32.0); MCV 92.6 FL (80.0-97.0); Mean Platelet Volume 10.2 FL (9.5-12.2); Monocytes # (A) 0.78 X 10*3/uL (0.20-1.00); Monocytes % (A) 10.4 %; NRBC Per 100 WBC 0 X 10*3/uL (0.00-0.01); Neutrophils # (A) 4.46 X 10*3/uL (1.80-7.70); Neutrophils % (A) 59.4 %; Platelet Count 294 X 10*3/uL (140-440); RBC 3.11 X 10*6/uL (4.10-5.20); RDW 14.6 % (11.5-14.5)
[2024-01-29 08:45] LABS: ALT 81 U/L (8-44); AST 108 U/L (13-35); Albumin 2.2 g/dL (3.8-4.9); Albumin/Globulin Ratio 0.65 Ratio (1.60-3.17); Alkaline Phosphatase 212 U/L (41-126); BUN/Creat Ratio 15.47 Ratio (12.00-20.00); Blood Urea Nitrogen 26.3 mg/dL (9.0-27.0); Calcium 8.1 mg/dL (8.7-10.3); Carbon Dioxide 20.8 mmol/L (21.6-31.8); Chloride 103 mmol/L (96-109); Globulin 3.4 g/dL (1.6-3.3); Glucose 194 mg/dL (70-110); Sodium 133 mmol/L (135-145); Total Bilirubin <0.2 mg/dL (0.3-1.2); Total Protein 5.6 g/dL (6.2-8.2)
[2024-01-29] MEDS: INSULIN DETEMIR (LEVEMIR) 100 UNIT/ML SYR SQ SCH (09:04)
--- NOTE | 2024-01-29 11:18 | CDI ---
Documentation Clarification Form Date: 01/29/2024 10:10:53 AM From: Annalisa Barron RN, CCDS Phone: [phone] Admit Date: 01/24/2024 09:09:00 AM Patient Name: Marylu Chavez Visit Number: [id number] Discharge Date: ATTENTION: The Clinical Documentation Specialists (CDI) and [facility] Coding Staff appreciate your assistance in clarifying documentation. Please respond to the clarification below the line at the bottom and electronically sign. The CDI & [facility] Coding staff will review the response and follow-up if needed. Please note: Queries are made part of the Legal Health Record. If you have any questions, please contact the author of this message via ITS. Doctor/Provider: Jamila Campos Cellulitis is documented in the consult and subsequent progress notes. Patient has history of Diabetes Mellitus. Additional clarification regarding the type of cellulitis is requested. History/risk factors: Atrial Fibrillation, Heart Failure, CVA/TIA, Diabetes Mellitus, Hyperlipidemia, Hypertension, Renal Disease, Clinical Indicators: 83-year-old female present with right lateral malleolar wound seem to be infected with secondary cellulitis 01/23 VS 154/55 100.1 106 14 / Labs: WBC 25.79 Neutrophils 22.22 Na 126 BUN 41.3 CR 01/23 Wound Culture Methicillin resist S. aureus, Escherichia coli, Kiebsiella pneumoniae Treatment: Vancomycin 1,250 MG IVPB Q 48 HRS (PTD) Rocephin 2 GM IVPB PICC Line Please clarify the etiology of the cellulitis, if known: [ ] Cellulitis is a diabetic skin complication [ x] Cellulitis is not a diabetic skin complication [ ] Other, please specify: [ ] Unable to determine (Template Last Revised: May 2022) MTDD
--- NOTE | 2024-01-29 11:20 | P.NPCON ---
History of Present Illness - History of Present Illness 87-year-old female seen in renal consultation for clearance from a renal stand point/acute kidney injury. Patient serum creatinine in October 2023 was 2.5, and on admission was 2.52. Today serum creatinine is 1.7. GFR in August 2023 was 21, on admission it was 20. Today GFR is 30. Patient states she came to the hospital for erythematous right lower extremity wound that appeared to be worsening. Patient admits to a history of diabetes mellitus type 2, CKD stage IV, and chronic nonhealing wounds. She is currently receiving normal saline at 75 cc an hour and has a purewick in place. Nonoliguric. Denies gross hematuria or dysuria. Denies vomiting and diarrhea. Denies chest pain or shortness of breath. No nephrotoxic medications noted on home medication list. Patient has not received IV dye or contrast. Past Medical History Past Medical History: Atrial Fibrillation, Heart Failure, CVA/TIA, Diabetes Mellitus, Hyperlipidemia, Hypertension, Renal Disease Additional Past Medical History / Comment(s): wound rt ankle and R great toe, L BKA, kidney failure, "slight stroke" 10years ago, CVA mild R sided weakness, frequent UTIs. History of Any Multi-Drug Resistant Organisms: MRSA Date of last positivie culture/infection: 01/24/24 MDRO Source:: RT FOOT, URINE Past Surgical History: Cholecystectomy, Orthopedic Surgery Additional Past Surgical History / Comment(s): left foot all toes amputated 2021; [place], hematoma removal abdomen Past Anesthesia/Blood Transfusion Reactions: No Reported Reaction Past Psychological History: No Psychological Hx Reported Additional Psychological History / Comment(s): Pt resides with kelly. W/C bound. One person transfer. Smoking Status: Never smoker Past Alcohol Use History: None Reported Past Drug Use History: None Reported - Past Family History Sister(s) Family Medical History: Cancer Additional Family Medical History / Comment(s): Renal cancer. Brother(s) Family Medical History: Cancer Additional Family Medical History / Comment(s): Renal cancer Medications and Allergies Home Medications Medication Instructions Recorded Confirmed Type Folic Acid 1 mg PO DAILY 02/20/22 01/24/24 History Potassium Chloride ER [K-Dur 10] 10 meq PO DAILY 02/20/22 01/24/24 History Tamsulosin HCl [Flomax] 0.4 mg PO DAILY 02/20/22 01/24/24 History Empagliflozin [Jardiance] 10 mg PO DAILY 04/26/22 01/24/24 History Insulin Aspart [NovoLOG Flexpen] See Protocol SQ AC-TID 11/07/22 01/24/24 History Sodium Bicarbonate Tab 650 mg PO DAILY 07/30/23 01/24/24 History Ondansetron [Zofran] 4 mg PO AC-BRKFST 09/15/23 01/24/24 History DULoxetine HCL [Cymbalta] 30 mg PO DAILY 10/11/23 01/24/24 History Insulin Glargine,Hum.rec.anlog 10 units SQ DAILY 10/11/23 01/24/24 History [Lantus Solostar Pen] Dulaglutide [Trulicity] 1.5 mg SQ FR 01/24/24 01/24/24 History Insulin Aspart [NovoLOG Flexpen] 3 units SQ AC-TID 01/24/24 01/24/24 History hydrALAZINE HCL [Apresoline] 25 mg PO BID 01/24/24 01/24/24 History Acetaminophen Tab [Tylenol] 650 mg PO Q4HR PRN tab 01/29/24 Rx Apixaban [Eliquis] 2.5 mg PO BID #60 tab 01/29/24 Rx DAPTOmycin [Cubicin] 250 mg IVPB Q48H each 01/29/24 Rx Allergies Allergy/AdvReac Type Severity Reaction Status Date / Time aspirin Allergy Severe Anaphylaxis Verified 01/23/24 20:07 Physical Exam Vitals: Vital Signs Temp Pulse Resp BP BP Pulse Ox 01/29/24 06:45 97.8 F 74 16 165/60 94 L 01/29/24 02:00 97.9 F 87 14 152/75 98 01/28/24 20:00 98.4 F 69 16 157/72 93 L 01/28/24 12:19 97.9 F 82 16 153/68 93 L Intake and Output 01/28/24 01/29/24 01/29/24 22:59 06:59 14:59 Intake Total 825 240 Output Total 550 1150 Balance -550 -325 240 Intake: Intake, IV Titration 825 Amount Sodium Chloride 0.9% 1, 825 000 ml @ 75 mls/hr IV . [id number] [facility] Rx#:[id number] Oral 240 Output: Urine 550 1150 Other: Voiding Method Diaper Incontinent External Catheter Vital signs are stable. General: No acute distress. HEENT: Head exam is unremarkable. LUNGS: No audible rhonchi or wheezes. HEART: Rate and Rhythm are regular. ABDOMEN: Nontender. EXTREMITITES: No edema. Nadvt-[id number]-pwmp amputation noted on left extremity. Results - Lab Results Most recent lab results Calcium 8.1 mg/dL (8.7-10.3) L 01/29/24 03:24 Phosphorus 4.5 mg/dL (2.4-5.1) 01/24/24 03:24 Magnesium 1.4 mg/dL (1.5-2.4) L 01/24/24 03:24 01/29/24 03:24 01/29/24 03:24 Assessment and Plan Assessment: Nonanion gap metabolic acidosis Chronic kidney disease stage IV secondary to diabetes mellitus type 2 Acute kidney injury secondary to ATN from sepsis. Improved. Right lower extremity wound infection. Culture positive for multiple organisms. Hypertension Diabetes mellitus type 2 Plan: Continue normal saline at 75 cc an hour Continue home bicarbonate 650 mg p.o. daily Advised to place PICC line in dominant hand, as patient may need fistula in the future in nondominant hand. PICC line already in place in nondominant hand when we saw the patient. Avoid nephrotoxins I have seen and examined the patient with resident and agree with A&P as written. Advised to f/u outpatient for CKD care upon d/c. Leaning toward conservative measures. Vanco to be adjusted for renal function. Also discussed with daughter present at bedside.
[2024-01-29 12:18] LABS: Glucose,Whole Blood 216 mg/dL (70-110)
--- NOTE | 2024-01-29 13:20 | P.PN ---
Subjective Progress Note Date: 01/29/24 Principal diagnosis: Reason for follow-up is right lower extremity diabetic foot wound and cellulitis Patient is a 83-year-old female with a past medical history negative for diab etes mellitus hypertension hyperlipidemia chronic renal insufficiency CVA TIA history of diabetic foot infection in this patient who is status post left vuqrd-yqo-rrhy amputation also have her dragging into right foot toes now presented to the hospital with right leg swelling redness concerning for wound infection and cellulitis. On today's evaluation that is 01/29/2024, patient has been afebrile, patient is breathing comfortably and is currently on room air, patient denies having any significant cough no chest pain shortness of breath, patient denies nausea vomiting or diarrhea and no abdominal pain and denies pain to the right lower extremity. Patient white count normalized to 7.50 creatinine is 1.7 Objective - Vital Signs Vital signs: Vital Signs Temp 97.8 F 01/29/24 06:45 Pulse 74 01/29/24 06:45 Resp 16 01/29/24 06:45 BP 165/60 01/29/24 06:45 Pulse Ox 94 L 01/29/24 06:45 FiO2 Intake & Output 01/28/24 01/29/24 01/29/24 18:59 06:59 18:59 Intake Total 825 240 Output Total 1100 1150 Balance -1100 -325 240 Intake: Intake, IV Titration 825 Amount Sodium Chloride 0.9% 1, 825 000 ml @ 75 mls/hr IV . [id number] [facility] Rx#:[id number] Oral 240 Output: Urine 1100 1150 Other: Voiding Method Diaper Diaper Diaper Incontinent Incontinent Incontinent External Catheter External Catheter External Catheter - Exam GENERAL DESCRIPTION: An elderly FEmale lying in bed in no distress RESPIRATORY SYSTEM: Unlabored breathing , decreased breath sounds at bases HEART: S1 S2 regular rate and rhythm , ABDOMEN: Soft , no tenderness EXTREMITIES: Right foot anterior wound with a tendon exposed did have minimal purulent drainage right lateral malleolar wound did have some purulent drainage right leg redness slightly decreased necrotic changes to the toe - Labs CBC & Chem 7: 01/29/24 03:24 01/29/24 03:24 Labs: Abnormal Lab Results - Last 24 Hours (Table) 01/28/24 01/28/24 01/29/24 Range/Units 17:07 19:35 03:24 RBC 3.11 L (4.10-5.20) X 10*6/uL Hgb 9.5 L (12.0-15.0) g/dL Hct 28.8 L (37.2-46.3) % RDW 14.6 H (11.5-14.5) % Immature Gran # 0.09 H (0.00-0.04) X 10*3/uL Eosinophils # 0.44 H (0.04-0.35) X 10*3/uL Sodium (135-145) mmol/L Carbon Dioxide (21.6-31.8) mmol/L Creatinine (0.6-1.5) mg/dL Est GFR (CKD-EPI) (>=60) Glucose (70-110) mg/dL POC Glucose (mg/dL) 181 H 211 H (70-110) mg/dL Calcium (8.7-10.3) mg/dL Total Bilirubin (0.3-1.2) mg/dL AST (13-35) U/L ALT (8-44) U/L Alkaline Phosphatase (41-126) U/L Total Protein (6.2-8.2) g/dL Albumin (3.8-4.9) g/dL Globulin (1.6-3.3) g/dL Albumin/Globulin Ratio (1.60-3.17) Ratio 01/29/24 01/29/24 01/29/24 Range/Units 03:24 06:52 12:16 RBC (4.10-5.20) X 10*6/uL Hgb (12.0-15.0) g/dL Hct (37.2-46.3) % RDW (11.5-14.5) % Immature Gran # (0.00-0.04) X 10*3/uL Eosinophils # (0.04-0.35) X 10*3/uL Sodium 133 L (135-145) mmol/L Carbon Dioxide 20.8 L (21.6-31.8) mmol/L Creatinine 1.7 H (0.6-1.5) mg/dL Est GFR (CKD-EPI) 30 L (>=60) Glucose 194 H (70-110) mg/dL POC Glucose (mg/dL) 185 H 216 H (70-110) mg/dL Calcium 8.1 L (8.7-10.3) mg/dL Total Bilirubin <0.2 L (0.3-1.2) mg/dL AST 108 H (13-35) U/L ALT 81 H (8-44) U/L Alkaline Phosphatase 212 H (41-126) U/L Total Protein 5.6 L (6.2-8.2) g/dL Albumin 2.2 L (3.8-4.9) g/dL Globulin 3.4 H (1.6-3.3) g/dL Albumin/Globulin Ratio 0.65 L (1.60-3.17) Ratio Microbiology - Last 24 Hours (Table) 01/23/24 23:00 Blood Culture - Final Blood 01/24/24 13:00 Anaerobic Culture - Final Foot - Right Assessment and Plan (1) Cellulitis of right leg Current Visit: Yes Status: Acute Code(s): L03.115 - CELLULITIS OF RIGHT LOWER LIMB SNOMED Code(s): 97929506782288071 (2) Diabetic foot ulcer Current Visit: Yes Status: Acute Code(s): E11.621 - TYPE 2 DIABETES MELLITUS WITH FOOT ULCER; L97.509 - NON-PRESSURE CHRONIC ULCER OTH PRT UNSP FOOT W UNSP SEVERITY SNOMED Code(s): 618040748 (3) Sepsis Current Visit: Yes Status: Acute Code(s): A41.9 - SEPSIS, UNSPECIFIED ORGANISM SNOMED Code(s): 67397324 Plan: 1patient presented to hospital with sepsis in this patient who did have fever tachycardia elevated white count source is right diabetic foot infection in this patient who did have multiple ulceration to the right foot however the toes are drying out clinically the right lateral malleolar wound seem to be infected with secondary cellulitis extending to the right lower leg likely from gram-positive skin leslee, however the wound culture has been finalized with MRSA Klebsiella and E. coli 2patient with renal insufficiency high risk of nephrotoxicity. 3local wound care with dry Aquacel silver dressing change every 48 hours and has been discussed again with the daughter at the bedside today. 4patient did get a PICC line plan is for a 2-week course of daptomycin and Rocephin 2 g every 12 hours prescription provided to the showcase trimmer and close outpatient follow-up also discussed with VOLCANOLOGY PROFESSOR for admitting team Dictation was produced using [employer] software. please excuse any grammatical, word or spelling errors. Time with Patient: Less than 30
[2024-01-29 13:51] VITALS: BP 159/76; PULSE 79; TEMP 97.9
[2024-01-29 16:59] LABS: Glucose,Whole Blood 260 mg/dL (70-110)
[2024-01-29] MEDS ORDERED: VANCOMYCIN 1,250 MG in SODIUM CHLORIDE 0.9% 250 ML IVPB SCH (21:00)
--- NOTE | 2024-02-02 10:57 | P.DS ---
Providers Date of admission: 01/24/24 09:09 Expected date of discharge: 01/29/24 Attending physician: Faviola Robert Consults: 01/24/24 07:25 Consult Physician Routine Consulting Provider: Jamila Campos Consult Reason/Comments: right foot cellulitis Do you want consulting provider notified?: Yes 01/28/24 12:22 Consult Physician Routine Consulting Provider: Blair O[place] Consult Reason/Comments: PICC line insertion Do you want consulting provider notified?: Yes Primary care physician: Megha Nolen Hospital Course: Final diagnosis #. 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 Hyperkalemia, secondary to chronic kidney disease - improved #. Hypovolemic hyponatremia improving #. Leukocytosis due to sepsis, present on admission secondary to assessment #1- improving #. Diabetes mellitus type 2 #. Paroxysmal atrial fibrillation GI prophylaxis DVT prophylaxis No code Discharge disposition Patient is being discharged in a stable condition with guarded prognosis to home with continued home care. Patient will follow-up with Dr. Nolen in the outpatient setting upon discharge. Patient is to continue with IV antibiotics via PICC line and close outpatient follow-up with infectious disease as scheduled. Total time taken is greater than 35 minutes. Hospital course This is a 83-year-old female who was recently admitted with right lower extremity wounds and right foot dry gangrene with concerns of sepsis, present on admission. Patient evaluated by infectious disease maintained on antibiotics and has received a PICC line. Patient and family are adamant about no further surgical intervention although would like to continue proceeding with antibiotic therapy. Patient was on hospice and currently will be placed on hold or discharged from until antibiotic therapy completed. Family at the bedside is aware and are agreeable with this plan and will contact hospice in the outpatient setting. Please refer to other consultation notes for further HPI. Currently no reports of chest pain, shortness of breath, or palpitations. Patient is afebrile. No reports of nausea or vomiting and patient is tolerating diet. Patient will be discharged home today. Guarded prognosis and high risk for readmissions given patient's ongoing comorbidities and lower extremity wounds with refusal of any further surgical intervention. Physical exam: Gen: This is a weight, alert and oriented x 2, chronic, well-developed, elderly appearing HEENT: Head is atraumatic, normocephalic. Pupils equal, round. Sclerae is anicteric. NECK: Supple. No JVD. No lymphadenopathy. No thyromegaly. LUNGS: Clear to auscultation. No wheezes or rhonchi. No intercostal retractions. HEART: Regular rate and rhythm. No murmur. ABDOMEN: Soft. Bowel sounds are present. No masses. No tenderness. EXTREMITIES: No pedal edema. No calf tenderness. Right lower extremity wound dressing currently dry and intact NEUROLOGICAL: Patient is awake, alert and oriented x2. Cranial nerves 2 through 12 are grossly intact. Diffusely weak Please refer to medication reconciliation sheet for a list of medications. The impression and plan of care has been dictated by Mildred Swift, Nurse Practitioner as directed. Dr. Denise MD I have performed a history and examination and MDM of this patient, discussed the same with the dictator, and agree with the dictator's assessment and plan as written ,documented as a scribe. Based on total visit time, I have performed more than 50% of the visit. Patient Condition at Discharge: Fair Plan - Discharge Summary Discharge Rx Participant: No New Discharge Prescriptions: New DAPTOmycin [Cubicin] 250 mg IVPB Q48H each Apixaban [Eliquis] 2.5 mg PO BID #60 tab Acetaminophen Tab [Tylenol] 650 mg PO Q4HR PRN tab PRN Reason: Fever And/ Or Pain Continue Tamsulosin HCl [Flomax] 0.4 mg PO DAILY Folic Acid 1 mg PO DAILY Insulin Aspart [NovoLOG Flexpen] See Protocol SQ AC-TID Ondansetron [Zofran] 4 mg PO AC-BRKFST Dulaglutide [Trulicity] 1.5 mg SQ FR Potassium Chloride ER [K-Dur 10] 10 meq PO DAILY Empagliflozin [Jardiance] 10 mg PO DAILY Sodium Bicarbonate Tab 650 mg PO DAILY DULoxetine HCL [Cymbalta] 30 mg PO DAILY Insulin Glargine,Hum.rec.anlog [Lantus Solostar Pen] 10 units SQ DAILY hydrALAZINE HCL [Apresoline] 25 mg PO BID Insulin Aspart [NovoLOG Flexpen] 3 units SQ AC-TID Discontinued Furosemide [Lasix] 20 mg PO DAILY Rivaroxaban [Xarelto] 15 mg PO DAILY Atorvastatin [Lipitor] 20 mg PO DAILY Discharge Medication List Folic Acid 1 mg PO DAILY 02/20/22 [History] Potassium Chloride ER [K-Dur 10] 10 meq PO DAILY 02/20/22 [History] Tamsulosin HCl [Flomax] 0.4 mg PO DAILY 02/20/22 [History] Empagliflozin [Jardiance] 10 mg PO DAILY 04/26/22 [History] Insulin Aspart [NovoLOG Flexpen] See Protocol SQ AC-TID 11/07/22 [History] Sodium Bicarbonate Tab 650 mg PO DAILY 07/30/23 [History] Ondansetron [Zofran] 4 mg PO AC-BRKFST 09/15/23 [History] DULoxetine HCL [Cymbalta] 30 mg PO DAILY 10/11/23 [History] Insulin Glargine,Hum.rec.anlog [Lantus Solostar Pen] 10 units SQ DAILY 10/11/23 [History] Dulaglutide [Trulicity] 1.5 mg SQ FR 01/24/24 [History] Insulin Aspart [NovoLOG Flexpen] 3 units SQ AC-TID 01/24/24 [History] hydrALAZINE HCL [Apresoline] 25 mg PO BID 01/24/24 [History] Acetaminophen Tab [Tylenol] 650 mg PO Q4HR PRN tab 01/29/24 [Rx] Apixaban [Eliquis] 2.5 mg PO BID #60 tab 01/29/24 [Rx] DAPTOmycin [Cubicin] 250 mg IVPB Q48H each 01/29/24 [Rx] Follow up Appointment(s)/Referral(s): Megha Nolen DO [Primary Care Provider] - 02/01/24 3:00 pm () [facility], [REFERRING] - 1 Week Residential Home,Health [NON-STAFF] - 1 Week Activity/Diet/Wound Care/Special Instructions: [facility] will deliver today between 6-8pm residential home care will see the pt tomorrow. Discharge Disposition: HOME WITH HOME HEALTH SERVICES
== END 2024-01-29 17:25 | disposition home health service (06) | DRG 871 ==
LOC: EC 19:56 → 5NMEDONC 22:47 → OBSVTOIN 01-24 09:09
PROVIDERS: ADMIT Hospitalist; ATTEND Hospitalist
PROC: 05HA33Z Insertion of Infusion Device into Left Brachial Vein, Percutaneous Approach (ICD-10-PCS; principal; 2024-01-28 20:35)
DX: A41.9 Sepsis, unspecified organism (principal); N17.0 Acute kidney failure with tubular necrosis; E11.52 Type 2 diabetes mellitus with diabetic peripheral angiopathy with gangrene; E87.1 Hypo-osmolality and hyponatremia; I13.0 Hypertensive heart and chronic kidney disease with heart failure and stage 1 through stage 4 chronic kidney disease, or unspecified chronic kidney disease; N17.9 Acute kidney failure, unspecified; N18.4 Chronic kidney disease, stage 4 (severe); L03.115 Cellulitis of right lower limb; E87.20 Acidosis, unspecified; L97.319 Non-pressure chronic ulcer of right ankle with unspecified severity; I69.351 Hemiplegia and hemiparesis following cerebral infarction affecting right dominant side; B95.62 Methicillin resistant Staphylococcus aureus infection as the cause of diseases classified elsewhere; E11.22 Type 2 diabetes mellitus with diabetic chronic kidney disease; L97.509 Non-pressure chronic ulcer of other part of unspecified foot with unspecified severity; E11.42 Type 2 diabetes mellitus with diabetic polyneuropathy; E11.621 Type 2 diabetes mellitus with foot ulcer; E78.5 Hyperlipidemia, unspecified; I48.0 Paroxysmal atrial fibrillation; Z79.01 Long term (current) use of anticoagulants; E11.628 Type 2 diabetes mellitus with other skin complications; B96.1 Klebsiella pneumoniae [K. pneumoniae] as the cause of diseases classified elsewhere; B96.5 Pseudomonas (aeruginosa) (mallei) (pseudomallei) as the cause of diseases classified elsewhere; B96.20 Unspecified Escherichia coli [E. coli] as the cause of diseases classified elsewhere; E66.9 Obesity, unspecified; E86.1 Hypovolemia; E87.5 Hyperkalemia; I50.9 Heart failure, unspecified; R65.20 Severe sepsis without septic shock; Z79.4 Long term (current) use of insulin; Z79.84 Long term (current) use of oral hypoglycemic drugs; Z79.899 Other long term (current) drug therapy; Z80.51 Family history of malignant neoplasm of kidney; Z89.512 Acquired absence of left leg below knee; Z89.612 Acquired absence of left leg above knee; Z88.8 Allergy status to other drugs, medicaments and biological substances; Z86.14 Personal history of Methicillin resistant Staphylococcus aureus infection; Z87.442 Personal history of urinary calculi; Z90.49 Acquired absence of other specified parts of digestive tract
CPT/HCPCS: 36415; 36573; 71045; 80053; 80202; 82565; 83605; 83735; 84100; 85025; 85610; 85652; 85730; 86140; 87040; 87070; 87075; 87077; 87186; 87205; 87636; 96365; 96375; 99285